=== PATIENT | female | born 1940 | race African-American/Black ===

== ENCOUNTER 2019-04-12 10:44 | Inpatient (IN) | payer MEDICARE, OTHER ==
[~2019-04-12] VITALS: Ht 160 cm; Wt 103.1 kg
[2019-04-12 10:55] VITALS: BP 120/75
--- NOTE | 2019-04-12 10:55 | NUR ---
ED Nurse Note: [facility] cough and congestion started last night, pt is awake but not oriented showing flat affect. pt has right hemiphlegia. noted to have diaper. pt is connected to o2 via nasal cannula 4L/min. seen by jonathon. will continue to monitor.
[2019-04-12] MEDS ORDERED: cefTRIAXone 1 GM in NS 55 ML IVPB ONE (11:00)
[2019-04-12] MEDS ORDERED: ACETAMINOPHEN325 M1 ORAL (11:05)
[2019-04-12] MEDS ORDERED: DULCOLAX10 MG RC (11:05)
[2019-04-12] MEDS ORDERED: FUROSEMIDE40 MG ORAL (11:05)
[2019-04-12] MEDS ORDERED: CRANBERRY400 MG PO (11:05)
[2019-04-12] MEDS ORDERED: LANTUS SOL100 UNIT/1 SUBQ (11:05)
[2019-04-12] MEDS ORDERED: MILK OF MA400 MG/51 ORAL (11:05)
[2019-04-12] MEDS ORDERED: DOCUSIL100 M1 ORAL (11:05)
[2019-04-12] MEDS ORDERED: MULTIVITAMINS1 EAC2 ORAL (11:05)
[2019-04-12] MEDS ORDERED: FLEET ENEMA133 ML RECTAL (11:05)
[2019-04-12] MEDS ORDERED: HYDRALAZINE HCL10 MG ORAL (11:05)
[2019-04-12] MEDS ORDERED: METOPROLOL TART50 MG ORAL (11:05)
[2019-04-12] MEDS ORDERED: PLAVIX75 MG ORAL (11:05)
[2019-04-12 11:29] LABS: APPEARANCE,URINE CLOUDY; BILIRUBIN, URINE NEGATIVE (NEGATIVE); GLUCOSE, URINE (UA) NEGATIVE (NEGATIVE); KETONES,URINE 1+ (NEGATIVE); LEUKOCYTE ESTERASE ,URINE 1+ (NEGATIVE); NITRITE,URINE NEGATIVE (NEGATIVE); PH,URINE 5 (4.5-8.0); PROTEIN,URINE 4+ (NEGATIVE); UROBILINOGEN,URINE 4 MG/DL (0.0-1.0)
[2019-04-12 11:32] LABS: HEMATOCRIT 28.5 % (37.0-47.0); HEMOGLOBIN 9.1 G/DL (12.0-16.0); MEAN CORPUSCULAR VOLUME 88 FL (80-99); PLATELET COUNT 232 K/UL (150-450); RED BLOOD COUNT 3.24 M/UL (4.20-5.40)
[2019-04-12 11:34] LABS: ANION GAP 12 mmol/L (5-15); BLOOD UREA NITROGEN 76 mg/dL (7-18); CARBON DIOXIDE 26 MMOL/L (21-32); CHLORIDE 120 MMOL/L (98-107); CREATININE 2.3 MG/DL (0.55-1.30); POTASSIUM 4.1 MMOL/L (3.5-5.1); SODIUM 158 MMOL/L (136-145)
[2019-04-12 11:37] LABS: WHITE BLOOD COUNT 25.4 K/UL (4.8-10.8)
[2019-04-12 11:42] LABS: COLOR,URINE YELLOW
[2019-04-12 11:48] LABS: ALANINE AMINOTRANSFERASE 8 U/L (12-78); ALBUMIN 1.8 G/DL (3.4-5.0); ALBUMIN/GLOBULIN RATIO 0.3 (1.0-2.7); ALKALINE PHOSPHATASE 72 U/L (46-116); ASPARTATE AMINO TRANSFERASE 13 U/L (15-37); BILIRUBIN,TOTAL 0.3 MG/DL (0.2-1.0); CKMB 1.9 NG/ML (0.0-3.6); CREATINE KINASE 29 U/L (26-308)
--- NOTE | 2019-04-12 11:53 | NUR ---
ED Nurse Note: pt medicated and tolerated well, pt noted to have productive cough with rales, ermd made aware and ordered albuterol nebulizer. RT made aware. will continue to monitor.
--- NOTE | 2019-04-12 11:59 | Diagnostic Imaging Report ---
Indication: Cough Technique: One view of the chest Comparison: none Findings: Patient body habitus somewhat limits evaluation. Infiltrates are seen at both lung bases. Left lateral hemidiaphragm is obscured, pleural fluid possible. The heart is enlarged. The upper mediastinum is apparently widened Impression: Bilateral basilar infiltrates, likely pneumonia Possible small left pleural effusion Apparent upper mediastinal widening. Possibly due to ectatic vasculature and body habitus, but upper mediastinal mass also possible. Correlate with any prior radiographs and may be available, consider CT for further evaluation if clinically indicated Findings discussed by phone with Dr. Brand in the emergency room at the time of interpretation
[2019-04-12] MEDS ORDERED: Albuterol ud Inhalation HHN ONE (12:00)
[2019-04-12 12:01] VITALS: BP 133/74
--- NOTE | 2019-04-12 12:09 | NUR ---
ED Nurse Note: respiratory therapist on bedside gicing nebulization. ermd ordeed bipap and rt made aware. will continnue to monitor
[2019-04-12 13:52] VITALS: BP 127/68
--- NOTE | 2019-04-12 14:14 | Emergency Room Report ---
History of Present Illness General Chief Complaint: Fever Source: Patient, Medical Record Present Illness HPI This patient presents from a senior care facility. She was sent in because the staff noted that she had a fever and was congested. She has a history of CVA with hemiplegia. She has multiple chronic medical problems to include hypertension, chronic kidney disease, CVA, coronary artery disease. She is nonverbal at baseline. Allergies: Coded Allergies: No Known Allergies (Unverified , 04/12/19) Patient History Past Medical History: see triage record, DM, HTN, CVA/TIA, renal disease Social History: Denies: smoking, alcohol use, drug use Reviewed Nursing Documentation: PMH: Agreed; PSxH: Agreed Nursing Documentation-PMH Hx Cardiac Problems: Yes Hx Hypertension: Yes Hx Cerebrovascular Accident: Yes - HEMIPLEGIA Review of Systems All Other Systems: limited Physical Exam Vital Signs Date Time Temp Pulse Resp B/P (MAP) Pulse Ox O2 Delivery O2 Flow Rate FiO2 04/12/19 10:47 99.0 107 18 120/75 (90) 94 Room Air 04/12/19 12:00 21 04/12/19 12:01 4.0 Sp02 EP Interpretation: reviewed, normal General Appearance: no apparent distress, alert, GCS 15, Chronically Ill Head: normocephalic, atraumatic ENT: normal ENT inspection, no angioedema Neck: full range of motion, supple/symm/no masses Respiratory: chest non-tender, accessory muscle use, rales, other - Tachypnea Cardiovascular #1: no edema, tachycardia Gastrointestinal: normal bowel sounds, non tender, soft, non-distended, no guarding, no rebound Rectal: deferred Musculoskeletal: other - At baseline, hemiplegia Neurologic: alert, other - At baseline. Hx cva w/ Hemiplegia Psychiatric: mood/affect normal Skin: warm/dry, well hydrated, other - See RN skin exam Medical Decision Making Diagnostic Impression: Primary Impression: Fever Additional Impressions: Pneumonia Sepsis Hypernatremia Renal failure ER Course This patient presents with pneumonia, fever and meets criteria for sepsis. She is also found to be in renal failure. She does have a history of renal disease , however, I do not have an old creatinine so I am unsure of the acuity of the renal failure. She is hypernatremic. Chest x-ray is consistent with pneumonia. Her lung exam showed rales and she had dyspnea and accessory muscle use on physical exam. Given the elevated work of breathing and her age and chronic illnesses I felt that BiPAP would be of benefit to her to relieve her increased work of breathing. She responded well to BiPAP. She is given broad- spectrum antibiotics and IV fluids. She does have a history of congestive heart failure. She is admitted to the ICU for further evaluation and treatment. This patient is critically ill. This patient required complex medical decision- making, aggressive intervention, extensive laboratory workup and monitoring. Critical care time: 40 minutes. Laboratory Tests Test 04/12/19 10:50 04/12/19 11:08 White Blood Count 25.4 K/UL (4.8-10.8) *H Red Blood Count 3.24 M/UL (4.20-5.40) L Hemoglobin 9.1 G/DL (12.0-16.0) L Hematocrit 28.5 % (37.0-47.0) L Mean Corpuscular Volume 88 FL (80-99) Mean Corpuscular Hemoglobin 28.1 PG (27.0-31.0) Mean Corpuscular Hemoglobin Concent 31.9 G/DL (32.0-36.0) L Red Cell Distribution Width 14.0 % (11.6-14.8) Platelet Count 232 K/UL (150-450) Mean Platelet Volume 8.8 FL (6.5-10.1) Neutrophils (%) (Auto) % (45.0-75.0) Lymphocytes (%) (Auto) % (20.0-45.0) Monocytes (%) (Auto) % (1.0-10.0) Eosinophils (%) (Auto) % (0.0-3.0) Basophils (%) (Auto) % (0.0-2.0) Differential Total Cells Counted 100 Neutrophils % (Manual) 87 % (45-75) H Lymphocytes % (Manual) 7 % (20-45) L Monocytes % (Manual) 4 % (1-10) Eosinophils % (Manual) 0 % (0-3) Basophils % (Manual) 0 % (0-2) Band Neutrophils 2 % (0-8) Platelet Estimate Adequate Platelet Morphology Normal Hypochromasia 2+ Anisocytosis 1+ Sodium Level 158 MMOL/L (136-145) H Potassium Level 4.1 MMOL/L (3.5-5.1) Chloride Level 120 MMOL/L (98-107) H Carbon Dioxide Level 26 MMOL/L (21-32) Anion Gap 12 mmol/L (5-15) Blood Urea Nitrogen 76 mg/dL (7-18) H Creatinine 2.3 MG/DL (0.55-1.30) H Estimate Glomerular Filtration Rate mL/min (>60) Glucose Level 189 MG/DL (74-106) H Lactic Acid Level 2.00 mmol/L (0.4-2.0) Calcium Level 10.0 MG/DL (8.5-10.1) Total Bilirubin 0.3 MG/DL (0.2-1.0) Aspartate Amino Transferase (AST) 13 U/L (15-37) L Alanine Aminotransferase (ALT) 8 U/L (12-78) L Alkaline Phosphatase 72 U/L (46-116) Total Creatine Kinase 29 U/L (26-308) Creatine Kinase MB 1.9 NG/ML (0.0-3.6) Creatine Kinase MB Relative Index 6.5 Troponin I 0.156 ng/mL (0.000-0.056) Total Protein 8.2 G/DL (6.4-8.2) Albumin 1.8 G/DL (3.4-5.0) L Globulin 6.4 g/dL Albumin/Globulin Ratio 0.3 (1.0-2.7) L Urine Color Yellow Urine Appearance Cloudy Urine pH 5 (4.5-8.0) Urine Specific [place] 1.025 (1.005-1.035) Urine Protein 4+ (NEGATIVE) H Urine Glucose (UA) Negative (NEGATIVE) Urine Ketones 1+ (NEGATIVE) H Urine Blood Negative (NEGATIVE) Urine Nitrite Negative (NEGATIVE) Urine Bilirubin Negative (NEGATIVE) Urine Urobilinogen 4 MG/DL (0.0-1.0) H Urine Leukocyte Esterase 1+ (NEGATIVE) H Urine RBC 2-4 /HPF (0 - 2) H Urine WBC 2-4 /HPF (0 - 2) Urine Squamous Epithelial Cells Many /LPF (NONE/OCC) H Urine Amorphous Sediment Many /LPF (NONE) H Urine Bacteria Few /HPF (NONE) Urine Hyaline Casts 0-2 /LPF (NONE) H Urine Fine Granular Casts 0-2 /LPF (NONE) H Microbiology Date/Time Source Procedure Growth Status 6/17/19 11:49 Nasal Nares - Final Complete 04/12/19 11:49 Nasal Nares - Final Complete EKG Diagnostic Results Rate: tachycardiac Rhythm: other - S.tachycardia ST Segments: other Other Impression S.tachy w/ short SC, IRBBB, LAFB, LVH Rhythm Strip Diag. Results EP Interpretation: yes Rate: 100's Rhythm: no PVC's, no ectopy, other - S.tachycardia Chest X-Ray Diagnostic Results Chest X-Ray Diagnostic Results : Chest X-Ray Ordered: Yes # of Views/Limited/Complete: 1 View Indication: Shortness of Breath EP Interpretation: No Interpretation: other - See below Impression: Other - Impression: Bilateral basilar infiltrates, likely pneumonia Last Vital Signs Date Time Temp Pulse Resp B/P (MAP) Pulse Ox O2 Delivery O2 Flow Rate FiO2 04/12/19 13:52 110 25 127/68 95 Bi-pap 14.0 21 04/12/19 10:55 98.9 Disposition: ADMITTED INPATIENT Condition: Critical Referrals: Jama Keating DO (PCP) Keyla Coe DO Apr 12, 2019 14:14
[2019-04-12] MEDS ORDERED: Morphine Sulfate 2mg/ml Inj(IV/IM USE ONLY) IVP PRN (14:15)
[2019-04-12] MEDS ORDERED: Miralax 17gm pkt ORAL PRN (14:15)
[2019-04-12] MEDS ORDERED: Albuterol/Ipratropium 3ml neb HHN PRN (14:15)
--- NOTE | 2019-04-12 14:15 | Consultation ---
Consult Note Consult Note I was asked to evaluate the patient for renal failure by Dr Keating Patient seen in ER on BIPAP Son at bed side examined data reviewed Assessment/Plan Renal failure; - Pre Renal - ? Underlying Renal Anemia Pneumonia / respiratory failure elevated Troponin UTI HyperGlycemia / DM Fraga urine studies slow hydrate kidney MAIKEL 2D echo avoid Nephrotoxics per orders aWlly Spivey MD Apr 12, 2019 14:15
--- NOTE | 2019-04-12 14:18 | Consultation ---
History of Present Illness General Date patient seen: Apr 12, 2019 Chief Complaint: Fever Present Illness HPI 79 year old female with hx of DM, HTN, CVA/TIA, hemiplegia, chronic renal disease, [facility] resident was noted to have fever and was congested. She is nonverbal at baseline. She opens her eyes, but doesn't communicate and doesn 't follow simple commands. She was found to be septic, with tachycardia and hypotension. She is admitted to [facility] for further management. Allergies: Coded Allergies: No Known Allergies (Unverified , 04/12/19) Medication History Scheduled Clopidogrel Bisulfate* (Plavix*), 75 MG ORAL DAILY, (Reported) Docusate Sodium* (Docusil*), 100 MG ORAL TWICE A DAY, (Reported) Furosemide* (Lasix*), 40 MG ORAL DAILY, (Reported) Hydralazine Hcl* (Hydralazine Hcl*), 10 MG ORAL EVERY 6 HOURS, (Reported) Insulin Glargine (Lantus), 20 SUBQ BEDTIME, (Reported) Magnesium Hydroxide* (Milk Of Magnesia*), 30 ML ORAL DAILY, (Reported) Metoprolol Tartrate* (Metoprolol Tartrate*), 75 MG ORAL EVERY 12 HOURS, ( Reported) Multivitamins* (Multivitamins*), 1 TAB ORAL DAILY, (Reported) Na Phos,M-B/Na Phos,Di-Ba* (Fleet Enema*), 133 ML RECTAL DAILY, (Reported) Scheduled PRN Acetaminophen* (Acetaminophen 325MG Tablet*), 650 MG ORAL Q6H PRN for Pain Scale (3-5), (Reported) Miscellaneous Medications Bisacodyl (Dulcolax), 10 MG RC, (Reported) Cranberry (Cranberry), 450 MG PO, (Reported) Patient History Healthcare decision maker Resuscitation status Advanced Directive on File Past Medical/Surgical History Past Medical/Surgical History: (1) 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 (2) Hypertensive heart disease (3) History of CVA (cerebrovascular accident) (4) CAD (coronary artery disease) (5) Right hemiplegia (6) Diabetes mellitus Review of Systems All Other Systems: negative except mentioned in HPI Physical Exam General Appearance: WD/WN Lines, tubes and drains: peripheral HEENT: normocephalic, atraumatic Neck: non-tender, normal alignment, supple, normal inspection Respiratory/Chest: chest wall non-tender, lungs clear Breasts: no masses Cardiovascular/Chest: normal rate Abdomen: normal bowel sounds, non tender Genitourinary/Rectal: normal genital exam Last 24 Hour Vital Signs Date Time Temp Pulse Resp B/P (MAP) Pulse Ox O2 Delivery O2 Flow Rate FiO2 04/12/19 13:52 110 25 127/68 95 Bi-pap 14.0 21 04/12/19 12:33 14.0 21 04/12/19 12:33 80 16 Bi-pap 4.0 21 04/12/19 12:32 80 16 100 Facial 21 04/12/19 12:28 88 22 100 Bi-Pap 21 04/12/19 12:01 106 21 133/74 95 Nasal Cannula 4.0 04/12/19 12:00 78 20 98 Facial 21 04/12/19 12:00 78 20 98 Bi-Pap 21 04/12/19 12:00 78 20 98 Bi-Pap 21 04/12/19 10:55 98.9 107 20 120/75 95 Room Air 04/12/19 10:55 107 20 Room Air 04/12/19 10:47 99.0 107 18 120/75 (90) 94 Room Air Laboratory Tests Test 04/12/19 10:50 04/12/19 11:08 White Blood Count 25.4 K/UL (4.8-10.8) *H Red Blood Count 3.24 M/UL (4.20-5.40) L Hemoglobin 9.1 G/DL (12.0-16.0) L Hematocrit 28.5 % (37.0-47.0) L Mean Corpuscular Volume 88 FL (80-99) Mean Corpuscular Hemoglobin 28.1 PG (27.0-31.0) Mean Corpuscular Hemoglobin Concent 31.9 G/DL (32.0-36.0) L Red Cell Distribution Width 14.0 % (11.6-14.8) Platelet Count 232 K/UL (150-450) Mean Platelet Volume 8.8 FL (6.5-10.1) Neutrophils (%) (Auto) % (45.0-75.0) Lymphocytes (%) (Auto) % (20.0-45.0) Monocytes (%) (Auto) % (1.0-10.0) Eosinophils (%) (Auto) % (0.0-3.0) Basophils (%) (Auto) % (0.0-2.0) Differential Total Cells Counted 100 Neutrophils % (Manual) 87 % (45-75) H Lymphocytes % (Manual) 7 % (20-45) L Monocytes % (Manual) 4 % (1-10) Eosinophils % (Manual) 0 % (0-3) Basophils % (Manual) 0 % (0-2) Band Neutrophils 2 % (0-8) Platelet Estimate Adequate Platelet Morphology Normal Hypochromasia 2+ Anisocytosis 1+ Sodium Level 158 MMOL/L (136-145) H Potassium Level 4.1 MMOL/L (3.5-5.1) Chloride Level 120 MMOL/L (98-107) H Carbon Dioxide Level 26 MMOL/L (21-32) Anion Gap 12 mmol/L (5-15) Blood Urea Nitrogen 76 mg/dL (7-18) H Creatinine 2.3 MG/DL (0.55-1.30) H Estimat Glomerular Filtration Rate mL/min (>60) Glucose Level 189 MG/DL (74-106) H Lactic Acid Level 2.00 mmol/L (0.4-2.0) Calcium Level 10.0 MG/DL (8.5-10.1) Total Bilirubin 0.3 MG/DL (0.2-1.0) Aspartate Amino Transf (AST/SGOT) 13 U/L (15-37) L Alanine Aminotransferase (ALT/SGPT) 8 U/L (12-78) L Alkaline Phosphatase 72 U/L (46-116) Total Creatine Kinase 29 U/L (26-308) Creatine Kinase MB 1.9 NG/ML (0.0-3.6) Creatine Kinase MB Relative Index 6.5 Troponin I 0.156 ng/mL (0.000-0.056) Total Protein 8.2 G/DL (6.4-8.2) Albumin 1.8 G/DL (3.4-5.0) L Globulin 6.4 g/dL Albumin/Globulin Ratio 0.3 (1.0-2.7) L Urine Color Yellow Urine Appearance Cloudy Urine pH 5 (4.5-8.0) Urine Specific [place] 1.025 (1.005-1.035) Urine Protein 4+ (NEGATIVE) H Urine Glucose (UA) Negative (NEGATIVE) Urine Ketones 1+ (NEGATIVE) H Urine Blood Negative (NEGATIVE) Urine Nitrite Negative (NEGATIVE) Urine Bilirubin Negative (NEGATIVE) Urine Urobilinogen 4 MG/DL (0.0-1.0) H Urine Leukocyte Esterase 1+ (NEGATIVE) H Urine RBC 2-4 /HPF (0 - 2) H Urine WBC 2-4 /HPF (0 - 2) Urine Squamous Epithelial Cells Many /LPF (NONE/OCC) H Urine Amorphous Sediment Many /LPF (NONE) H Urine Bacteria Few /HPF (NONE) Urine Hyaline Casts 0-2 /LPF (NONE) H Urine Fine Granular Casts 0-2 /LPF (NONE) H Microbiology Date/Time Source Procedure Growth Status 04/12/19 11:49 Nasal Nares - Final Complete 04/12/19 11:49 Nasal Nares - Final Complete Height (Feet): 5 Height (Inches): 3.00 Weight (Pounds): 145 Assessment/Plan Problem List: (1) Nosocomial pneumonia ICD Codes: J18.9 - Pneumonia, unspecified organism; Y95 - Nosocomial condition SNOMED: 872493482 (2) Sepsis ICD Codes: A41.9 - Sepsis, unspecified organism SNOMED: 68681355 (3) Acute metabolic encephalopathy ICD Codes: G93.41 - Metabolic encephalopathy SNOMED: 71950267, 003162923 (4) At high risk for aspiration ICD Codes: Z91.89 - Other specified personal risk factors, not elsewhere classified SNOMED: 551284114 (5) 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 ICD Codes: E11.22 - Type 2 diabetes mellitus with diabetic chronic kidney disease; N18.4 - Chronic kidney disease, stage 4 (severe) SNOMED: 03956572, 635258369, 919056863 (6) Diabetes mellitus ICD Codes: E11.9 - Type 2 diabetes mellitus without complications SNOMED: 68761716 (7) History of CVA (cerebrovascular accident) ICD Codes: Z86.73 - Personal history of transient ischemic attack (TIA), and cerebral infarction without residual deficits SNOMED: 017351566 (8) CAD (coronary artery disease) ICD Codes: I25.10 - Atherosclerotic heart disease of [place] coronary artery without angina pectoris SNOMED: 45307964 (9) Right hemiplegia ICD Codes: G81.91 - Hemiplegia, unspecified affecting right dominant side SNOMED: 897447024 (10) Hypertensive heart disease ICD Codes: I11.9 - Hypertensive heart disease without heart failure SNOMED: 08676378 Assessment/Plan: vale culture aggressive IV fluids check electrolytes broad spectrum abx renal studies f/u renal electrolytes sliding scale swallow study. dvt prophylaxis repeat CXR in a few days Tony Springer MD Apr 12, 2019 14:18
--- NOTE | 2019-04-12 15:28 | NUR ---
ED Nurse Note: senior quality technician on bedside. pt son on bedside.
[2019-04-12 15:47] VITALS: BP 146/87
--- NOTE | 2019-04-12 16:29 | NUR ---
ED Nurse Note: pt is admitted to the hospital. report given to Bharath BURNETT.
--- NOTE | 2019-04-12 16:45 | NUR ---
ED Nurse Note: pt was transfered to [facility] 234 with stable vs. will continue to monitor.
--- NOTE | 2019-04-12 17:00 | NUR ---
NURSE NOTES: Received report from HORTENCIA Paez. Patient arrived to unit in stable condition. Noted on BiPAP with setting 15/5 FiO2 30%. Patient has no belongings. Skin integrity is intact. Bed is in lowest position, brakes engaged. Call light is kept within easy reach. Will continue to monitor patient.
--- NOTE | 2019-04-12 17:01 | Cardiac Electrophysiology PN ---
Subjective Subjective [id number] Objective Last 24 Hour Vital Signs Date Time Temp Pulse Resp B/P (MAP) Pulse Ox O2 Delivery O2 Flow Rate FiO2 04/12/19 15:47 104 27 146/87 94 Bi-pap 4.0 21 04/12/19 14:35 78 14 100 Facial 21 04/12/19 13:52 110 25 127/68 95 Bi-pap 14.0 21 04/12/19 12:33 14.0 21 04/12/19 12:33 80 16 Bi-pap 4.0 21 04/12/19 12:32 80 16 100 Facial 21 04/12/19 12:28 88 22 100 Bi-Pap 21 04/12/19 12:01 106 21 133/74 95 Nasal Cannula 4.0 04/12/19 12:00 78 20 98 Facial 21 04/12/19 12:00 78 20 98 Bi-Pap 21 04/12/19 12:00 78 20 98 Bi-Pap 21 04/12/19 10:55 98.9 107 20 120/75 95 Room Air 04/12/19 10:55 107 20 Room Air 04/12/19 10:47 99.0 107 18 120/75 (90) 94 Room Air Laboratory Tests Test 04/12/19 10:50 04/12/19 11:08 White Blood Count 25.4 K/UL (4.8-10.8) *H Red Blood Count 3.24 M/UL (4.20-5.40) L Hemoglobin 9.1 G/DL (12.0-16.0) L Hematocrit 28.5 % (37.0-47.0) L Mean Corpuscular Volume 88 FL (80-99) Mean Corpuscular Hemoglobin 28.1 PG (27.0-31.0) Mean Corpuscular Hemoglobin Concent 31.9 G/DL (32.0-36.0) L Red Cell Distribution Width 14.0 % (11.6-14.8) Platelet Count 232 K/UL (150-450) Mean Platelet Volume 8.8 FL (6.5-10.1) Neutrophils (%) (Auto) % (45.0-75.0) Lymphocytes (%) (Auto) % (20.0-45.0) Monocytes (%) (Auto) % (1.0-10.0) Eosinophils (%) (Auto) % (0.0-3.0) Basophils (%) (Auto) % (0.0-2.0) Differential Total Cells Counted 100 Neutrophils % (Manual) 87 % (45-75) H Lymphocytes % (Manual) 7 % (20-45) L Monocytes % (Manual) 4 % (1-10) Eosinophils % (Manual) 0 % (0-3) Basophils % (Manual) 0 % (0-2) Band Neutrophils 2 % (0-8) Platelet Estimate Adequate Platelet Morphology Normal Hypochromasia 2+ Anisocytosis 1+ Sodium Level 158 MMOL/L (136-145) H Potassium Level 4.1 MMOL/L (3.5-5.1) Chloride Level 120 MMOL/L (98-107) H Carbon Dioxide Level 26 MMOL/L (21-32) Anion Gap 12 mmol/L (5-15) Blood Urea Nitrogen 76 mg/dL (7-18) H Creatinine 2.3 MG/DL (0.55-1.30) H Estimat Glomerular Filtration Rate mL/min (>60) Glucose Level 189 MG/DL (74-106) H Lactic Acid Level 2.00 mmol/L (0.4-2.0) Calcium Level 10.0 MG/DL (8.5-10.1) Total Bilirubin 0.3 MG/DL (0.2-1.0) Aspartate Amino Transf (AST/SGOT) 13 U/L (15-37) L Alanine Aminotransferase (ALT/SGPT) 8 U/L (12-78) L Alkaline Phosphatase 72 U/L (46-116) Total Creatine Kinase 29 U/L (26-308) Creatine Kinase MB 1.9 NG/ML (0.0-3.6) Creatine Kinase MB Relative Index 6.5 Troponin I 0.156 ng/mL (0.000-0.056) Total Protein 8.2 G/DL (6.4-8.2) Albumin 1.8 G/DL (3.4-5.0) L Globulin 6.4 g/dL Albumin/Globulin Ratio 0.3 (1.0-2.7) L Urine Color Yellow Urine Appearance Cloudy Urine pH 5 (4.5-8.0) Urine Specific [place] 1.025 (1.005-1.035) Urine Protein 4+ (NEGATIVE) H Urine Glucose (UA) Negative (NEGATIVE) Urine Ketones 1+ (NEGATIVE) H Urine Blood Negative (NEGATIVE) Urine Nitrite Negative (NEGATIVE) Urine Bilirubin Negative (NEGATIVE) Urine Urobilinogen 4 MG/DL (0.0-1.0) H Urine Leukocyte Esterase 1+ (NEGATIVE) H Urine RBC 2-4 /HPF (0 - 2) H Urine WBC 2-4 /HPF (0 - 2) Urine Squamous Epithelial Cells Many /LPF (NONE/OCC) H Urine Amorphous Sediment Many /LPF (NONE) H Urine Bacteria Few /HPF (NONE) Urine Hyaline Casts 0-2 /LPF (NONE) H Urine Fine Granular Casts 0-2 /LPF (NONE) H Microbiology Date/Time Source Procedure Growth Status 04/12/19 11:49 Nasal Nares - Final Complete 04/12/19 11:49 Nasal Nares - Final Complete Claude Pena MD Apr 12, 2019 17:01
--- NOTE | 2019-04-12 17:15 | History and Physical Report ---
DATE OF ADMISSION: 04/12/2019 TIME SEEN: 12 noon. CONSULTANTS: 1. Tony Springer M.D. 2. Phu Haque M.D. 3. Steven Norton M.D. CHIEF COMPLAINT: Shortness of breath, pneumonia, sepsis, possible chest mass. BRIEF HISTORY: This is a 79-year-old female from [facility] presented with two-day increased shortness of breath, became quite lethargic, came to [place], diagnosed as above. The patient was put on BiPAP due to severe respiratory distress. The patient is currently diagnosed with pneumonia and sepsis, and chest x-ray is showing possible chest mass and being admitted to [facility] for shortly. Currently, calm, BiPAP in place in the ER gurney, not talking much. REVIEW OF SYSTEMS: Unavailable. PAST MEDICAL HISTORY: We will obtain shortly. PAST SURGICAL HISTORY: We will obtain shortly. ALLERGIES: Denies. MEDICATIONS: Include albuterol, ceftriaxone. SOCIAL HISTORY: No smoking. No alcohol. No intravenous drug abuse. FAMILY HISTORY: Noncontributory. PHYSICAL EXAMINATION: GENERAL: BiPAP in place, sleeping in bed, slight short of breath. VITAL SIGNS: Temperature is 98 degrees, pulse 106, respirations 16, and blood pressure 133/74. CARDIOVASCULAR: No murmur. LUNGS: Poor exchange. ABDOMEN: Bowel sounds distant. EXTREMITIES: No cyanosis, clubbing, or edema. NEUROLOGIC: Patient is flaccid in bed, probably sedated. LABORATORY AND DIAGNOSTIC DATA: White count 25, H and H of 9.1/25. BMP show sodium 158, chloride 120, BUN and creatinine 76/2.3. AST 13, ALT 8. Troponin 0.156, elevated troponin. Albumin 1.8, malnutrition. Urinalysis shows 1+ leukocyte esterase. ASSESSMENT: 1. Shortness of breath. 2. Respiratory distress. 3. Pneumonia. 4. Urinary tract infection. 5. Sepsis. 6. Chest mass. 7. Anemia. 8. Renal failure. 9. Elevated troponin. 10. Malnutrition. PLAN: 1. BiPAP per Pulmonary. 2. Antibiotic per Infectious Disease. 3. Blood pressure and blood sugar control. 4. IV fluids. 5. Dietary followup. 6. Resume home medications. 7. Troponin q.8 h. x3. 8. EKG in a.m. 9. We will continue to follow this patient. 10. Add Nephrology and Cardiology followup. Jama Keating D.O. DR: NILDA JOB#: [id number] CC:
--- NOTE | 2019-04-12 17:30 | NUR ---
NURSE NOTES: Dr. Pena seen and examined patient at bedside. MD aware of HR of 133 bpm. MD inquired if patient receiving hydration, that is affirmative, MD acknowledged, no new orders given at this time. Will continue to monitor patient.
[2019-04-12] MEDS: HydrALAZINE 10mg Tab ORAL SCH ×2 (17:44→23:55)
--- NOTE | 2019-04-12 18:30 | NUR ---
NURSE NOTES: Notified Dr. Springer that patient has history of diabetes, acknowledged, ordered novolog sliding scale protocol. Order entered, noted, and carried out. Will continue to monitor patient.
--- NOTE | 2019-04-12 18:41 | Diagnostic Imaging Report ---
Indication: Abnormal renal function tests Technique: Grayscale and duplex images of the kidneys, retroperitoneum, and bladder were obtained. Comparison: none Findings: Right kidney measures 11.6 cm in length. Left kidney measures 12.3 cm in length. Both kidneys demonstrate normal echogenicity. No hydronephrosis. A few small echogenic foci are noted in the right kidney. A few small cysts are seen in the left kidney. Normal inferior vena cava. Bladder contains a Fraga catheter. Urinary bladder volume calculated at 92 mL despite the presence of the Fraga. Impression: Negative for hydronephrosis Punctate right renal echogenic foci, small calcifications versus artifact Incidental finding left renal cyst 92 mL urinary bladder volume, despite the presence of a Fraga catheter.
--- NOTE | 2019-04-12 18:45 | Consultation ---
DATE OF CONSULTATION: 04/12/2019 CARDIOLOGY CONSULTATION CONSULTING PHYSICIAN: Claude Pena M.D. REFERRING PHYSICIAN: Jama Keating D.O. REASON FOR CONSULTATION: Management of hypertension and shortness of breath. HISTORY OF PRESENT ILLNESS: The patient is a 79-year-old lady who is nonverbal, was [facility] in from jail for fever and congestion. The patient has history of CVA and hemiplegia and is nonverbal. The patient was admitted and a Cardiology consultation was obtained for further evaluation. REVIEW OF SYSTEMS: Cannot be obtained as the patient is nonverbal. PAST MEDICAL HISTORY: 1. Hypertension. 2. CVA. 3. Coronary artery disease. 4. Chronic kidney disease. 5. CVA and hemiplegia. FAMILY HISTORY: Noncontributory. SOCIAL HISTORY: She lives in jail. PHYSICAL EXAMINATION: VITAL SIGNS: Blood pressure is 120/75, pulse is 107, respirations 18, temperature is 99. HEAD AND NECK: Showed no JVD. LUNGS: Coarse rhonchi bilaterally. CARDIOVASCULAR: Regular S1 and S2 with no gallop. ABDOMEN: Soft. EXTREMITIES: No pitting edema. LABORATORY AND DIAGNOSTIC DATA: Her labs show white count 25.4, hemoglobin 9.1, hematocrit 28%, platelet count is 232. Sodium is 158, potassium is 4.1, BUN of 76, creatinine 2.3. ASSESSMENT AND PLAN: 1. Tachycardia, likely due to combination of dehydration and azotemia. The patient will be getting gentle hydration by Dr. Spivey. 2. Sepsis. The patient's lactic acid is 2. We will start on IV antibiotic. White count is 25,000. 3. Anemia. 4. History of CVA with hemiplegia. 5. Nonverbal status. 6. Renal failure. 7. Coronary artery disease. The patient on metoprolol 75 mg b.i.d. and Plavix 75 mg daily and is also on p.r.n. hydralazine. Thank you very much for allowing me to participate in the care of this patient. Please do not hesitate to contact me for any questions regarding my evaluation. Claude Pena M.D. DR: SARITA JOB#: [id number] CC:
--- NOTE | 2019-04-12 19:30 | NUR ---
HAND-OFF: Report given to HORTENCIA Werner.
--- NOTE | 2019-04-12 19:35 | NUR ---
NURSE NOTES: Received Pt is resting on the bed and drowsy. Able to open the eyes spontaneously. On BiPAP setting with 15/5 FiO2 30% and SaO2 97% noted. Iv site intact and no sign of infiltration noted. On tele monitor with ST with HR: 137's. According to previous nurse, Dr. Pena awarded. Pt has Fraga cath and yellowish urine urinated. On NPO. Changed position. Placed fall precaution. Will continue to care plan and continue to monitor any change of condition.
[2019-04-12 20:00] VITALS: BP 152/90
[2019-04-12] MEDS ORDERED: Vancomycin 1 GM in D5W 275 ML IVPB ONE (20:00)
[2019-04-12] MEDS: Metoprolol Tartrate 50mg tab ORAL SCH (20:18)
[2019-04-12] MEDS: Heparin 5000 units/ml inj SUBQ SCH (20:48)
[2019-04-12] MEDS: NovoLOG Insulin Flexpen SUBQ SCH (21:00)
[2019-04-12] MEDS ORDERED: Cefepime HCl 2 GM in D5W 110 ML IV ONE (21:00)
[2019-04-13] VITALS: BP 140/90
[2019-04-13 04:00] VITALS: BP 121/82
[2019-04-13 04:52] LABS: HEMATOCRIT 24.9 % (37.0-47.0); MEAN CORPUSCULAR VOLUME 88 FL (80-99); PLATELET COUNT 221 K/UL (150-450); RED BLOOD COUNT 2.84 M/UL (4.20-5.40); RED CELL DISTRIBUTION WIDTH 14.3 % (11.6-14.8)
[2019-04-13 05:40] LABS: ALANINE AMINOTRANSFERASE 7 U/L (12-78); ALBUMIN 1.6 G/DL (3.4-5.0); ALBUMIN/GLOBULIN RATIO 0.3 (1.0-2.7); ALKALINE PHOSPHATASE 73 U/L (46-116); ANION GAP 15 mmol/L (5-15); ASPARTATE AMINO TRANSFERASE 18 U/L (15-37); BILIRUBIN,TOTAL 0.2 MG/DL (0.2-1.0); BLOOD UREA NITROGEN 77 mg/dL (7-18); CALCIUM 8.8 MG/DL (8.5-10.1); CARBON DIOXIDE 21 MMOL/L (21-32); CHLORIDE 122 MMOL/L (98-107); CHOLESTEROL 83 MG/DL (< 200); CREATININE 2.4 MG/DL (0.55-1.30); FERRITIN 274 NG/ML (8-388); GAMMA GLUTAMYL TRANSPEPTIDASE 18 U/L (5-85); HDL CHOLESTEROL 23 MG/DL (40-60); PHOSPHORUS 4.4 MG/DL (2.5-4.9); POTASSIUM 4.2 MMOL/L (3.5-5.1); SODIUM 158 MMOL/L (136-145); TRIGLYCERIDES 73 MG/DL (30-150)
[2019-04-13] MEDS: HydrALAZINE 10mg Tab ORAL SCH ×3 (05:54→17:07)
[2019-04-13 06:25] LABS: % IRON SATURATION 4 % (15-50); IRON 6 ug/dL (50-175); TOTAL IRON BINDING CAPACITY 143 ug/dL (250-450)
[2019-04-13] MEDS: NovoLOG Insulin Flexpen SUBQ SCH ×4 (06:30→21:02)
--- NOTE | 2019-04-13 07:20 | NUR ---
NURSE NOTES: Report received from HORTENCIA Werner. Observed patient in bed. Open eyes spontaneously with confusion. On BIPAP with previous setting with no acute distress noted. IVF running at prescribed rate. F/C intact and draining well. No s/s of pain at this time. Bed in lowest position. Call light within reach. Will continue to monitor.
--- NOTE | 2019-04-13 07:24 | NUR ---
HAND-OFF: Report given to HORTENCIA Hooks. Pt is resting on the bed and no sign of acute distress noted.
--- NOTE | 2019-04-13 07:47 | NUR ---
RESPIRATORY NOTE: ABG taken, placed pt on 2L NC with no resp distress. sputum collected. RN notified
[2019-04-13 08:00] VITALS: BP 134/80
[2019-04-13] MEDS: Cefepime 1gm in D5W 55ml IVPB SCH (08:57)
[2019-04-13] MEDS: Heparin 5000 units/ml inj SUBQ SCH ×2 (08:57→21:00)
[2019-04-13] MEDS: Metoprolol Tartrate 50mg tab ORAL SCH ×2 (08:57→20:59)
--- NOTE | 2019-04-13 09:41 | Consultation ---
History of Present Illness General Date patient seen: Apr 13, 2019 Chief Complaint: Fever Reason for Consultation: PNA Present Illness HPI Ms. Sage is a 79 yo female with PMHx of HTN, CVA with hemiplegia and is now not verbal, CKD and CAD who was sent to the ED from her correction onn with lethargy and SOB. In the ED she was Afebrile but had WBCs of 25 and was hypoxic and CXR showed. Bilateral basilar infiltrates, likely pneumonia and Apparent upper mediastinal widening. Possibly due to ectatic vasculature and body habitus, but upper mediastinal mass also possible. She is currently not verbal. Will nod head. No Pain ID was consulted for PNA PMHx/PSHx HTN CVA with hemiplegia and is now not verbal CKD CAD SocHx No E/T/D FamHx Not Contributory Allergies: Coded Allergies: No Known Allergies (Unverified , 04/12/19) Medication History Scheduled Clopidogrel Bisulfate* (Plavix*), 75 MG ORAL DAILY, (Reported) Docusate Sodium* (Docusil*), 100 MG ORAL TWICE A DAY, (Reported) Furosemide* (Lasix*), 40 MG ORAL DAILY, (Reported) Hydralazine Hcl* (Hydralazine Hcl*), 10 MG ORAL EVERY 6 HOURS, (Reported) Insulin Glargine (Lantus), 20 SUBQ BEDTIME, (Reported) Magnesium Hydroxide* (Milk Of Magnesia*), 30 ML ORAL DAILY, (Reported) Metoprolol Tartrate* (Metoprolol Tartrate*), 75 MG ORAL EVERY 12 HOURS, ( Reported) Multivitamins* (Multivitamins*), 1 TAB ORAL DAILY, (Reported) Na Phos,M-B/Na Phos,Di-Ba* (Fleet Enema*), 133 ML RECTAL DAILY, (Reported) Scheduled PRN Acetaminophen* (Acetaminophen 325MG Tablet*), 650 MG ORAL Q6H PRN for Pain Scale (3-5), (Reported) Miscellaneous Medications Bisacodyl (Dulcolax), 10 MG RC, (Reported) Cranberry (Cranberry), 450 MG PO, (Reported) Patient History Healthcare decision maker Cezar Sage (SON) Resuscitation status Full Code Advanced Directive on File Review of Systems ROS Narrative Unable to obtain as patient not verbal Physical Exam Last 24 Hour Vital Signs Date Time Temp Pulse Resp B/P (MAP) Pulse Ox O2 Delivery O2 Flow Rate FiO2 04/13/19 08:57 109 134/80 04/13/19 08:00 98.4 109 24 134/80 (98) 97 04/13/19 08:00 Nasal Cannula 2.0 04/13/19 07:45 2.0 04/13/19 06:58 116 30 97 Facial 30 04/13/19 05:54 144/71 04/13/19 05:05 115 24 98 Facial 30 04/13/19 04:00 Bi-pap 04/13/19 04:00 98.8 111 20 121/82 (95) 97 04/13/19 04:00 118 04/13/19 04:00 30 04/13/19 02:45 120 28 99 Facial 30 04/13/19 01:00 108 24 98 Facial 30 04/13/19 00:00 98.1 103 20 140/90 (107) 97 04/13/19 00:00 Bi-pap 04/13/19 00:00 30 04/13/19 00:00 101 04/12/19 23:55 140/82 04/12/19 22:57 103 24 96 Facial 30 04/12/19 20:59 117 32 97 Facial 30 04/12/19 20:18 137 150/90 04/12/19 20:00 137 04/12/19 20:00 30 04/12/19 20:00 Bi-pap 04/12/19 20:00 98.6 137 20 152/90 (110) 97 04/12/19 19:07 78 26 94 Facial 30 04/12/19 17:53 Bi-pap 4.0 04/12/19 17:45 21 04/12/19 17:44 146/87 04/12/19 16:45 98.9 104 16 146/87 100 4.0 21 04/12/19 16:45 82 16 100 Facial 21 04/12/19 15:47 104 27 146/87 94 Bi-pap 4.0 21 04/12/19 14:35 78 14 100 Facial 21 04/12/19 13:52 110 25 127/68 95 Bi-pap 14.0 21 04/12/19 12:33 14.0 21 04/12/19 12:33 80 16 Bi-pap 4.0 21 04/12/19 12:32 80 16 100 Facial 21 04/12/19 12:28 88 22 100 Bi-Pap 21 04/12/19 12:01 106 21 133/74 95 Nasal Cannula 4.0 04/12/19 12:00 78 20 98 Facial 21 04/12/19 12:00 78 20 98 Bi-Pap 21 04/12/19 12:00 78 20 98 Bi-Pap 21 04/12/19 10:55 98.9 107 20 120/75 95 Room Air 04/12/19 10:55 107 20 Room Air 04/12/19 10:47 99.0 107 18 120/75 (90) 94 Room Air Intake and Output 04/12/19 04/13/19 18:59 06:59 Intake Total 4110 ml 1280.0 ml Output Total 300 ml Balance 4110 ml 980.0 ml Intake IV Total 4110 ml 1280.0 ml Output Urine Total 300 ml # Bowel Movements 2 Laboratory Tests Test 04/12/19 10:50 04/12/19 11:08 04/13/19 03:45 04/13/19 07:26 White Blood Count 25.4 K/UL (4.8-10.8) *H 22.0 K/UL (4.8-10.8) H Red Blood Count 3.24 M/UL (4.20-5.40) L 2.84 M/UL (4.20-5.40) L Hemoglobin 9.1 G/DL (12.0-16.0) L 8.0 G/DL (12.0-16.0) L Hematocrit 28.5 % (37.0-47.0) L 24.9 % (37.0-47.0) L Mean Corpuscular Volume 88 FL (80-99) 88 FL (80-99) Mean Corpuscular Hemoglobin 28.1 PG (27.0-31.0) 28.2 PG (27.0-31.0) Mean Corpuscular Hemoglobin Concent 31.9 G/DL (32.0-36.0) L 32.1 G/DL (32.0-36.0) Red Cell Distribution Width 14.0 % (11.6-14.8) 14.3 % (11.6-14.8) Platelet Count 232 K/UL (150-450) 221 K/UL (150-450) Mean Platelet Volume 8.8 FL (6.5-10.1) 8.8 FL (6.5-10.1) Neutrophils (%) (Auto) % (45.0-75.0) % (45.0-75.0) Lymphocytes (%) (Auto) % (20.0-45.0) % (20.0-45.0) Monocytes (%) (Auto) % (1.0-10.0) % (1.0-10.0) Eosinophils (%) (Auto) % (0.0-3.0) % (0.0-3.0) Basophils (%) (Auto) % (0.0-2.0) % (0.0-2.0) Differential Total Cells Counted 100 Neutrophils % (Manual) 87 % (45-75) H Pending Lymphocytes % (Manual) 7 % (20-45) L Pending Monocytes % (Manual) 4 % (1-10) Eosinophils % (Manual) 0 % (0-3) Basophils % (Manual) 0 % (0-2) Band Neutrophils 2 % (0-8) Platelet Estimate Adequate Pending Platelet Morphology Normal Pending Hypochromasia 2+ Anisocytosis 1+ Sodium Level 158 MMOL/L (136-145) H 158 MMOL/L (136-145) H Potassium Level 4.1 MMOL/L (3.5-5.1) 4.2 MMOL/L (3.5-5.1) Chloride Level 120 MMOL/L (98-107) H 122 MMOL/L (98-107) H Carbon Dioxide Level 26 MMOL/L (21-32) 21 MMOL/L (21-32) Anion Gap 12 mmol/L (5-15) 15 mmol/L (5-15) Blood Urea Nitrogen 76 mg/dL (7-18) H 77 mg/dL (7-18) H Creatinine 2.3 MG/DL (0.55-1.30) H 2.4 MG/DL (0.55-1.30) H Estimat Glomerular Filtration Rate mL/min (>60) mL/min (>60) Glucose Level 189 MG/DL (74-106) H 137 MG/DL (74-106) H Lactic Acid Level 2.00 mmol/L (0.4-2.0) Calcium Level 10.0 MG/DL (8.5-10.1) 8.8 MG/DL (8.5-10.1) Total Bilirubin 0.3 MG/DL (0.2-1.0) 0.2 MG/DL (0.2-1.0) Aspartate Amino Transf (AST/SGOT) 13 U/L (15-37) L 18 U/L (15-37) Alanine Aminotransferase (ALT/SGPT) 8 U/L (12-78) L 7 U/L (12-78) L Alkaline Phosphatase 72 U/L (46-116) 73 U/L (46-116) Total Creatine Kinase 29 U/L (26-308) Creatine Kinase MB 1.9 NG/ML (0.0-3.6) Creatine Kinase MB Relative Index 6.5 Troponin I 0.156 ng/mL (0.000-0.056) 0.184 ng/mL (0.000-0.056) Total Protein 8.2 G/DL (6.4-8.2) 6.6 G/DL (6.4-8.2) Albumin 1.8 G/DL (3.4-5.0) L 1.6 G/DL (3.4-5.0) L Globulin 6.4 g/dL 5.0 g/dL Albumin/Globulin Ratio 0.3 (1.0-2.7) L 0.3 (1.0-2.7) L Urine Color Yellow Urine Appearance Cloudy Urine pH 5 (4.5-8.0) Urine Specific [place] 1.025 (1.005-1.035) Urine Protein 4+ (NEGATIVE) H Urine Glucose (UA) Negative (NEGATIVE) Urine Ketones 1+ (NEGATIVE) H Urine Blood Negative (NEGATIVE) Urine Nitrite Negative (NEGATIVE) Urine Bilirubin Negative (NEGATIVE) Urine Urobilinogen 4 MG/DL (0.0-1.0) H Urine Leukocyte Esterase 1+ (NEGATIVE) H Urine RBC 2-4 /HPF (0 - 2) H Urine WBC 2-4 /HPF (0 - 2) Urine Squamous Epithelial Cells Many /LPF (NONE/OCC) H Urine Amorphous Sediment Many /LPF (NONE) H Urine Bacteria Few /HPF (NONE) Urine Hyaline Casts 0-2 /LPF (NONE) H Urine Fine Granular Casts 0-2 /LPF (NONE) H Hemoglobin A1c 8.1 % (4.3-6.0) H Uric Acid 9.7 MG/DL (2.6-7.2) H Phosphorus Level 4.4 MG/DL (2.5-4.9) Magnesium Level 1.9 MG/DL (1.8-2.4) Iron Level 6 ug/dL (50-175) L Total Iron Binding Capacity 143 ug/dL (250-450) L Percent Iron Saturation 4 % (15-50) L Unsaturated Iron Binding 137 ug/dL (112-346) Ferritin 274 NG/ML (8-388) Gamma Glutamyl Transpeptidase 18 U/L (5-85) C-Reactive Protein, Quantitative 57.5 mg/dL (0.00-0.90) H Pro-B-Type Natriuretic Peptide 92177 pg/mL (0-125) H Triglycerides Level 73 MG/DL (30-150) Cholesterol Level 83 MG/DL (< 200) LDL Cholesterol 28 mg/dL (<100) HDL Cholesterol 23 MG/DL (40-60) L Cholesterol/HDL Ratio 3.6 (3.3-4.4) Vitamin B12 Level 1534 PG/ML (193-986) H Folate 6.7 NG/ML (8.6-58.9) L Thyroid Stimulating Hormone (TSH) 2.835 uiU/mL (0.358-3.740) Arterial Blood pH 7.391 (7.350-7.450) Arterial Blood Partial Pressure CO2 35.0 mmHg (35.0-45.0) Arterial Blood Partial Pressure O2 96.1 mmHg (75.0-100.0) Arterial Blood HCO3 20.8 mmol/L (22.0-26.0) L Arterial Blood Oxygen Saturation 96.6 % (95-100) Arterial Blood Base Excess -3.7 (-2-2) L Marlo Test Positive Microbiology Date/Time Source Procedure Growth Status 04/12/19 11:49 Nasal Nares - Final Complete 04/12/19 11:49 Nasal Nares - Final Complete Height (Feet): 5 Height (Inches): 3.00 Weight (Pounds): 145 Medications Current Medications Medications (Trade) Dose Ordered Sig/Kenisha Route PRN Reason Start Time Stop Time Status Last Admin Dose Admin Acetaminophen (Tylenol) 650 mg Q4H PRN ORAL FEVER 04/12/19 14:15 05/12/19 14:14 Albuterol/ Ipratropium (Albuterol/ Ipratropium) 3 ml Q4H PRN HHN Shortness of Breath 04/12/19 14:15 04/17/19 14:14 Cefepime HCl 1 gm/ Dextrose 55 ml @ 110 mls/hr Q24H IVPB 04/13/19 09:00 04/20/19 08:59 04/13/19 08:57 Clopidogrel Bisulfate (Plavix) 75 mg DAILY ORAL 04/13/19 09:00 05/13/19 08:59 04/13/19 08:57 Dextrose (Dextrose 50%) 25 ml Q30M PRN IV Hypoglycemia 04/12/19 19:45 05/12/19 19:44 Dextrose (Dextrose 50%) 50 ml Q30M PRN IV Hypoglycemia 04/12/19 19:45 05/12/19 19:44 Heparin Sodium (Porcine) (Heparin 5000 units/ml) 5,000 units EVERY 12 HOURS SUBQ 04/12/19 21:00 05/12/19 20:59 04/12/19 20:48 Hydralazine HCl (Apresoline) 10 mg EVERY 6 HOURS ORAL 04/12/19 18:00 05/12/19 17:59 04/13/19 05:54 Insulin Aspart (NovoLOG) BEFORE MEALS AND HS SUBQ 04/12/19 21:00 05/12/19 20:59 Metoprolol Tartrate (Lopressor) 75 mg EVERY 12 HOURS ORAL 04/12/19 21:00 05/12/19 20:59 04/13/19 08:57 Morphine Sulfate (Morphine Sulfate) 2 mg Q4H PRN IVP Severe Pain (Pain Scale 7-10) 04/12/19 14:15 04/19/19 14:14 Ondansetron HCl (Zofran) 4 mg Q6H PRN IVP Nausea & Vomiting 04/12/19 14:15 05/12/19 14:14 Polyethylene Glycol (Miralax) 17 gm DAILYPRN PRN ORAL Constipation 04/12/19 14:15 05/12/19 14:14 Sodium Chloride 1,000 ml @ 75 mls/hr [id number] IV 04/12/19 14:30 05/12/19 14:29 04/13/19 05:54 Vancomycin HCl (Vanco rx to dose) 1 ea DAILY PRN MISC Per rx protocol 04/12/19 17:30 05/12/19 17:29 Objective Narrative Gen: NAD on 2L NC HEENT: NCAT, MMM, EOMI, PERRL, No Oral lesion, no scleral icterus NECK: full range of motion, supple, no meningismus, No LAD, No JVD LUNGS: CTAB, No W/C, No Accessory muscle use CARDS: RRR, S1, S2, No M/R/G, ABD: Soft, NT, ND, No R/G, + BS, No HSM, No Masses : Deferred Ext: C/C/E, Pulses 2+ B/L (DP, Rad): NEURO: Following commands, Nods head PSYCH: Normal mood and affect SKIN: Warm/dry, No rashes Assessment/Plan Assessment/Plan: 79 yo female with PMHx of HTN, CVA with hemiplegia and is now not verbal, CKD and CAD. PNA CXR - B/L Infiltrates Aferbile WBCs up to 25 Sp Cx pend Widened mediastimun CXR - Apparent upper mediastinal widening. Possibly due to ectatic vasculature and body abitus, but upper mediastinal mass also possible. Correlate with any prior adiographs and may be available, consider CT for further evaluation if clinically ndicated Need to f/u CT ro R/O mass HTN CVA with hemiplegia and is now not verbal CKD CAD PLAN - Continue Cefepine #1 and Vanocmycin #1 pending Cx - f/u Sputum/Blood Cx - f/u CT scan - Monitor CBC and Temps - further recommendations will be based on CT results Thank you for this consult. We will continue to follow the patient during this hospitalization. Gildardo Gonsalves MD Apr 13, 2019 09:41
[2019-04-13 12:00] VITALS: BP 140/81
--- NOTE | 2019-04-13 12:07 | Pulmonology Progress Note ---
Assessment/Plan Problems: (1) Nosocomial pneumonia (2) Sepsis (3) Acute metabolic encephalopathy (4) At high risk for aspiration (5) 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 (6) Diabetes mellitus (7) History of CVA (cerebrovascular accident) (8) CAD (coronary artery disease) (9) Right hemiplegia (10) Hypertensive heart disease Assessment/Plan vale culture, still pending, wbc still high aggressive IV fluids with D5W check electrolytes daily broad spectrum abx as per ID renal studies reviewed, renal US negative for acute changes f/u urine electrolytes sliding scale with Novolog coverage swallow study. dvt prophylaxis repeat CXR in a few days Subjective ROS Limited/Unobtainable: No Constitutional: Reports: no symptoms HEENT: Repors: no symptoms Respiratory: Reports: no symptoms Allergies: Coded Allergies: No Known Allergies (Unverified , 04/12/19) Objective Last 24 Hour Vital Signs Date Time Temp Pulse Resp B/P (MAP) Pulse Ox O2 Delivery O2 Flow Rate FiO2 04/13/19 08:57 109 134/80 04/13/19 08:00 98.4 109 24 134/80 (98) 97 04/13/19 08:00 Nasal Cannula 2.0 04/13/19 08:00 114 04/13/19 07:45 2.0 04/13/19 06:58 116 30 97 Facial 30 04/13/19 05:54 144/71 04/13/19 05:05 115 24 98 Facial 30 04/13/19 04:00 Bi-pap 04/13/19 04:00 98.8 111 20 121/82 (95) 97 04/13/19 04:00 118 04/13/19 04:00 30 04/13/19 02:45 120 28 99 Facial 30 04/13/19 01:00 108 24 98 Facial 30 04/13/19 00:00 98.1 103 20 140/90 (107) 97 04/13/19 00:00 Bi-pap 04/13/19 00:00 30 04/13/19 00:00 101 04/12/19 23:55 140/82 04/12/19 22:57 103 24 96 Facial 30 04/12/19 20:59 117 32 97 Facial 30 04/12/19 20:18 137 150/90 04/12/19 20:00 137 04/12/19 20:00 30 04/12/19 20:00 Bi-pap 04/12/19 20:00 98.6 137 20 152/90 (110) 97 04/12/19 19:07 78 26 94 Facial 30 04/12/19 17:53 Bi-pap 4.0 04/12/19 17:45 21 04/12/19 17:44 146/87 04/12/19 16:45 98.9 104 16 146/87 100 4.0 21 04/12/19 16:45 82 16 100 Facial 21 04/12/19 15:47 104 27 146/87 94 Bi-pap 4.0 21 04/12/19 14:35 78 14 100 Facial 21 04/12/19 13:52 110 25 127/68 95 Bi-pap 14.0 04/12/19 12:33 14.0 21 04/12/19 12:33 80 16 Bi-pap 4.0 21 04/12/19 12:32 80 16 100 Facial 21 04/12/19 12:28 88 22 100 Bi-Pap 21 Intake and Output 04/12/19 04/13/19 18:59 06:59 Intake Total 4110 ml 1280.0 ml Output Total 300 ml Balance 4110 ml 980.0 ml Intake IV Total 4110 ml 1280.0 ml Output Urine Total 300 ml # Bowel Movements 2 General Appearance: WD/WN HEENT: normocephalic, atraumatic Respiratory/Chest: chest wall non-tender, lungs clear Abdomen: normal bowel sounds, no organomegaly Genitourinary: normal external genitalia Extremities: no cyanosis Skin: no rash Neurologic/Psychiatric: plating operator II-XII grossly normal Microbiology Date/Time Source Procedure Growth Status 04/12/19 11:49 Nasal Nares - Final Complete 04/12/19 11:49 Nasal Nares - Final Complete Laboratory Tests 04/13/19 03:45: White Blood Count 22.0H, Red Blood Count 2.84L, Hemoglobin 8.0L, Hematocrit 24.9L, Mean Corpuscular Volume 88, Mean Corpuscular Hemoglobin 28.2, Mean Corpuscular Hemoglobin Concent 32.1, Red Cell Distribution Width 14.3, Platelet Count 221, Mean Platelet Volume 8.8, Neutrophils (%) (Auto) , Lymphocytes (%) ( Auto) , Monocytes (%) (Auto) , Eosinophils (%) (Auto) , Basophils (%) (Auto) , Differential Total Cells Counted 100, Neutrophils % (Manual) 81H, Lymphocytes % (Manual) 14L, Monocytes % (Manual) 2, Eosinophils % (Manual) 1, Basophils % ( Manual) 0, Band Neutrophils 2, Platelet Estimate Adequate, Platelet Morphology Normal, Polychromasia 1+, Hypochromasia 2+, Anisocytosis 1+, Spherocytes 1+, Sodium Level 158H, Potassium Level 4.2, Chloride Level 122H, Carbon Dioxide Level 21, Anion Gap 15, Blood Urea Nitrogen 77H, Creatinine 2.4H, Estimat Glomerular Filtration Rate , Glucose Level 137H, Hemoglobin A1c 8.1H, Uric Acid 9.7H, Calcium Level 8.8, Phosphorus Level 4.4, Magnesium Level 1.9, Iron Level 6L, Total Iron Binding Capacity 143L, Percent Iron Saturation 4L, Unsaturated Iron Binding 137, Ferritin 274, Total Bilirubin 0.2, Gamma Glutamyl Transpeptidase 18, Aspartate Amino Transf (AST/SGOT) 18, Alanine Aminotransferase (ALT/SGPT) 7L, Alkaline Phosphatase 73, Troponin I 0.184H, C- Reactive Protein, Quantitative 57.5H, Pro-B-Type Natriuretic Peptide 85672Q, Total Protein 6.6, Albumin 1.6L, Globulin 5.0, Albumin/Globulin Ratio 0.3L, Triglycerides Level 73, Cholesterol Level 83, LDL Cholesterol 28, HDL Cholesterol 23L, Cholesterol/HDL Ratio 3.6, Vitamin B12 Level 1534H, Folate 6.7L , Thyroid Stimulating Hormone (TSH) 2.835 04/13/19 07:26: Arterial Blood pH 7.391, Arterial Blood Partial Pressure CO2 35.0, Arterial Blood Partial Pressure O2 96.1, Arterial Blood HCO3 20.8L, Arterial Blood Oxygen Saturation 96.6, Arterial Blood Base Excess -3.7L, Marlo Test Positive Current Medications Medications (Trade) Dose Ordered Sig/Kenisha Route PRN Reason Start Time Stop Time Status Last Admin Dose Admin Acetaminophen (Tylenol) 650 mg Q4H PRN ORAL FEVER 04/12/19 14:15 05/12/19 14:14 Albuterol/ Ipratropium (Albuterol/ Ipratropium) 3 ml Q4H PRN HHN Shortness of Breath 04/12/19 14:15 04/17/19 14:14 Cefepime HCl 1 gm/ Dextrose 55 ml @ 110 mls/hr Q24H IVPB 04/13/19 09:00 04/20/19 08:59 04/13/19 08:57 Clopidogrel Bisulfate (Plavix) 75 mg DAILY ORAL 04/13/19 09:00 05/13/19 08:59 04/13/19 08:57 Dextrose 1,000 ml @ 100 mls/hr Q10H IV 04/13/19 09:45 05/13/19 09:44 04/13/19 09:57 Dextrose (Dextrose 50%) 25 ml Q30M PRN IV Hypoglycemia 04/12/19 19:45 05/12/19 19:44 Dextrose (Dextrose 50%) 50 ml Q30M PRN IV Hypoglycemia 04/12/19 19:45 05/12/19 19:44 Heparin Sodium (Porcine) (Heparin 5000 units/ml) 5,000 units EVERY 12 HOURS SUBQ 04/12/19 21:00 05/12/19 20:59 04/12/19 20:48 Hydralazine HCl (Apresoline) 10 mg EVERY 6 HOURS ORAL 04/12/19 18:00 05/12/19 17:59 04/13/19 05:54 Insulin Aspart (NovoLOG) BEFORE MEALS AND HS SUBQ 04/12/19 21:00 05/12/19 20:59 Metoprolol Tartrate (Lopressor) 75 mg EVERY 12 HOURS ORAL 04/12/19 21:00 05/12/19 20:59 04/13/19 08:57 Morphine Sulfate (Morphine Sulfate) 2 mg Q4H PRN IVP Severe Pain (Pain Scale 7-10) 04/12/19 14:15 04/19/19 14:14 Ondansetron HCl (Zofran) 4 mg Q6H PRN IVP Nausea & Vomiting 04/12/19 14:15 05/12/19 14:14 Polyethylene Glycol (Miralax) 17 gm DAILYPRN PRN ORAL Constipation 04/12/19 14:15 05/12/19 14:14 Vancomycin HCl (Vanco rx to dose) 1 ea DAILY PRN MISC Per rx protocol 04/12/19 17:30 05/12/19 17:29 Tony Springer MD Apr 13, 2019 12:07
--- NOTE | 2019-04-13 12:23 | NUR ---
CASE MANAGEMENT: INITIAL REVIEW 79 YO F ACOSTA FROM [facility] CONV CC: FEVER PMHx: HTN. HEMIPLEGIA. CVA. DM. RENAL DX. SI:SEPSIS. T 99 HR 107 RR 18 B/P 120/75 SATS 94% ON RA WBC 25.4 NA 158 CL 120 BUN 76 CR 2.3 GLU 189 AST 13 ALT 8 ABGs HCO3 20.8 BE -3.7 IS: NS BOLUS X1 ROCEPHIN IV X1 ALBUTEROL HHN X1 PATIENT ADMITTED TO SDU 04/12/2019 @ 1240 DCP: PATIENT TO BE DISCHARGED TO SNF ONCE MEDICALLY CLEARED. PLAN OF CARE: 1. BiPAP per Pulmonary. 2. Antibiotic per Infectious Disease. 3. Blood pressure and blood sugar control. 4. IV fluids. Addendum: 04/13/19 at 1235 by Rosa Kowalski INTERQUAL MET
[2019-04-13 12:32] LABS: CREATINE KINASE 35 U/L (26-308)
[2019-04-13 13:15] LABS: APPEARANCE,URINE SLIGHTLY CLOUDY; BILIRUBIN, URINE NEGATIVE (NEGATIVE); COLOR,URINE PALE YELLOW; GLUCOSE, URINE (UA) NEGATIVE (NEGATIVE); KETONES,URINE NEGATIVE (NEGATIVE); LEUKOCYTE ESTERASE ,URINE NEGATIVE (NEGATIVE); NITRITE,URINE NEGATIVE (NEGATIVE); PH,URINE 5 (4.5-8.0); PROTEIN,URINE 3+ (NEGATIVE); UROBILINOGEN,URINE NORMAL MG/DL (0.0-1.0)
--- NOTE | 2019-04-13 13:51 | NUR ---
*-* INSURANCE *-* ALL CLINICALS AND REVIEWS HAVE BEEN FAXED TO: [facility] P: [phone] F: [phone] (FAX CLINICALS) Addendum: 04/13/19 at 1620 by RUTH PATEL CM cindy# [id number]
--- NOTE | 2019-04-13 13:53 | General Progress Note ---
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 ICD Codes: E11.22 - Type 2 diabetes mellitus with diabetic chronic kidney disease; N18.4 - Chronic kidney disease, stage 4 (severe) SNOMED: 77261573, 620020502, 848463066 Status: unchanged Assessment/Plan: pt diet abx o2 pulm tx neuro psyc eval cbc bmp am Subjective Constitutional: Reports: weakness Allergies: Coded Allergies: No Known Allergies (Unverified , 04/12/19) All Systems: reviewed and negative except above Subjective o2nc sleep Objective Last 24 Hour Vital Signs Date Time Temp Pulse Resp B/P (MAP) Pulse Ox O2 Delivery O2 Flow Rate FiO2 04/13/19 12:00 Nasal Cannula 2.0 04/13/19 12:00 97.7 94 20 140/81 (100) 100 04/13/19 12:00 2.0 04/13/19 12:00 95 04/13/19 11:49 140/81 04/13/19 08:57 109 134/80 04/13/19 08:00 98.4 109 24 134/80 (98) 97 04/13/19 08:00 Nasal Cannula 2.0 04/13/19 08:00 114 04/13/19 07:45 2.0 04/13/19 06:58 116 30 97 Facial 30 04/13/19 05:54 144/71 04/13/19 05:05 115 24 98 Facial 30 04/13/19 04:00 Bi-pap 04/13/19 04:00 98.8 111 20 121/82 (95) 97 04/13/19 04:00 118 04/13/19 04:00 30 04/13/19 02:45 120 28 99 Facial 30 04/13/19 01:00 108 24 98 Facial 30 04/13/19 00:00 98.1 103 20 140/90 (107) 97 04/13/19 00:00 Bi-pap 04/13/19 00:00 30 04/13/19 00:00 101 04/12/19 23:55 140/82 04/12/19 22:57 103 24 96 Facial 30 04/12/19 20:59 117 32 97 Facial 30 04/12/19 20:18 137 150/90 04/12/19 20:00 137 04/12/19 20:00 30 04/12/19 20:00 Bi-pap 04/12/19 20:00 98.6 137 20 152/90 (110) 97 04/12/19 19:07 78 26 94 Facial 30 04/12/19 17:53 Bi-pap 4.0 04/12/19 17:45 21 04/12/19 17:44 146/87 04/12/19 16:45 98.9 104 16 146/87 100 4.0 21 04/12/19 16:45 82 16 100 Facial 21 04/12/19 15:47 104 27 146/87 94 Bi-pap 4.0 21 04/12/19 14:35 78 14 100 Facial 21 04/12/19 13:52 110 25 127/68 95 Bi-pap 14.0 21 Intake and Output 04/12/19 04/13/19 19:00 07:00 Intake Total 4185 ml 1280.0 ml Output Total 300 ml Balance 4185 ml 980.0 ml Intake IV Total 4185 ml 1280.0 ml Output Urine Total 300 ml # Bowel Movements 2 Laboratory Tests 04/13/19 03:45: White Blood Count 22.0H, Red Blood Count 2.84L, Hemoglobin 8.0L, Hematocrit 24.9L, Mean Corpuscular Volume 88, Mean Corpuscular Hemoglobin 28.2, Mean Corpuscular Hemoglobin Concent 32.1, Red Cell Distribution Width 14.3, Platelet Count 221, Mean Platelet Volume 8.8, Neutrophils (%) (Auto) , Lymphocytes (%) ( Auto) , Monocytes (%) (Auto) , Eosinophils (%) (Auto) , Basophils (%) (Auto) , Differential Total Cells Counted 100, Neutrophils % (Manual) 81H, Lymphocytes % (Manual) 14L, Monocytes % (Manual) 2, Eosinophils % (Manual) 1, Basophils % ( Manual) 0, Band Neutrophils 2, Platelet Estimate Adequate, Platelet Morphology Normal, Polychromasia 1+, Hypochromasia 2+, Anisocytosis 1+, Spherocytes 1+, Sodium Level 158H, Potassium Level 4.2, Chloride Level 122H, Carbon Dioxide Level 21, Anion Gap 15, Blood Urea Nitrogen 77H, Creatinine 2.4H, Estimat Glomerular Filtration Rate , Glucose Level 137H, Hemoglobin A1c 8.1H, Uric Acid 9.7H, Calcium Level 8.8, Phosphorus Level 4.4, Magnesium Level 1.9, Iron Level 6L, Total Iron Binding Capacity 143L, Percent Iron Saturation 4L, Unsaturated Iron Binding 137, Ferritin 274, Total Bilirubin 0.2, Gamma Glutamyl Transpeptidase 18, Aspartate Amino Transf (AST/SGOT) 18, Alanine Aminotransferase (ALT/SGPT) 7L, Alkaline Phosphatase 73, Total Creatine Kinase 35, Troponin I 0.184H, C-Reactive Protein, Quantitative 57.5H, Pro-B-Type Natriuretic Peptide 68776N, Total Protein 6.6, Albumin 1.6L, Globulin 5.0, Albumin/Globulin Ratio 0.3L, Triglycerides Level 73, Cholesterol Level 83, LDL Cholesterol 28, HDL Cholesterol 23L, Cholesterol/HDL Ratio 3.6, Vitamin B12 Level 1534H, Folate 6.7L, Thyroid Stimulating Hormone (TSH) 2.835 04/13/19 07:26: Arterial Blood pH 7.391, Arterial Blood Partial Pressure CO2 35.0, Arterial Blood Partial Pressure O2 96.1, Arterial Blood HCO3 20.8L, Arterial Blood Oxygen Saturation 96.6, Arterial Blood Base Excess -3.7L, Marlo Test Positive 04/13/19 13:05: Urine Color Pale yellow, Urine Appearance Slightly cloudy, Urine pH 5, Urine Specific [place] 1.015, Urine Protein 3+H, Urine Glucose (UA) Negative, Urine Ketones Negative, Urine Blood 4+H, Urine Nitrite Negative, Urine Bilirubin Negative, Urine Urobilinogen Normal, Urine Leukocyte Esterase Negative, Urine RBC 40-60H, Urine WBC 2-4, Urine Squamous Epithelial Cells ManyH, Urine Amorphous Sediment ManyH, Urine Bacteria Few, Urine Granular Casts 2-4H, Urine Fine Granular Casts 2-4H, Urine Eosinophils [Pending], Urine Osmolality [Pending ], Urine Random Creatinine [Pending], Urine Random Microalbumin [Pending], Urine Random Sodium 86, Urine Microalbumin/Creatinine Ratio [Pending] Height (Feet): 5 Height (Inches): 3.00 Weight (Pounds): 145 General Appearance: lethargic EENT: normal ENT inspection Neck: normal alignment Cardiovascular: normal peripheral pulses, normal rate, regular rhythm Respiratory/Chest: chest wall non-tender, lungs clear, normal breath sounds Abdomen: normal bowel sounds, non tender, soft Extremities: normal inspection Edema: no edema noted Arm (L), no edema noted Arm (R), no edema noted Leg (L), no edema noted Leg (R), no edema noted Pedal (L), no edema noted Pedal (R), no edema noted Generalized Neurologic: motor weakness Skin: normal pigmentation, warm/dry Jama Keating DO Apr 13, 2019 13:53
--- NOTE | 2019-04-13 14:04 | NUR ---
RECEIVED BEDSIDE SWALLOW EVAL ORDER CHART REVIEWED PRIOR THE EVALUATION PT IS A 79-YEAR-OLD FEMALE WHO WAS ADMITTED FOR SEPSIS, PNA. DYSPHAGIA RISK FACTORS: PNA, SEPSIS, CVA(2010) AND ANOTHER CVA, W/R-SIDED AND L-SIDED WEAKNESS, HTN, DMII. Impression: Bilateral basilar infiltrates, likely pneumonia Possible small left pleural effusion PLOF: PT RESIDES AT INTERMEDIATE FACILITY. PER MARCELLO, PT WAS ON MINCED GIANNA, CCHO DIET NO POLST WAS NOTED IN THE CHART. CURRENT STATUS: PT SEEN AT BEDSIDE IN AM. ALERT, COOPERATIVE, LIMITED VERBAL, INCONSISTENTLY FOLLOWS SIMPLE DIRECTIONS, PT WAS ON BIPAP LAST NIGHT. CURRENTLY, PT IS ON NC(2L). 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 FAIR LARYNGEAL ELEVATION, NO OVERT S/S OF ASPIRATION. HAS HIGH RISK FOR SILENT ASPIRATION DUE TO CURRENT PNA AND H/O CVA. RECOMMENDATIONS: 1. CONSERVATIVELY, MODIFIED BARIUM SWALLOW STUDY PRIOR PO DIET. 2. IF PO IS GIVEN FOR QUALITY OF LIFE, CONSIDER LIQUIFIED PUREED, LIKE NECTAR THICK SOUP CONSISTENCY WITH NECTAR THICK LIQUIDS WITH STRICT ASPIRATION PRECAUTIONS WITH 1TO1 FEEDING 3. MODIFIED BARIUM SWALLOW STUDY. 4. SKILLED ST LOVE D/W HORTENCIA, CATRACHITO. POSTED NPO SIGN AND ASPIRATION PRECAUTION SIGN.
--- NOTE | 2019-04-13 14:04 | NUR ---
ST NOTE: BEDSIDE SWALLOW EVAL RECEIVED BEDSIDE SWALLOW EVAL ORDER CHART REVIEWED PRIOR THE EVALUATION PT IS A 79-YEAR-OLD FEMALE WHO WAS ADMITTED FOR SEPSIS, PNA. DYSPHAGIA RISK FACTORS: PNA, SEPSIS, CVA(2010) AND ANOTHER CVA, W/R-SIDED AND L-SIDED WEAKNESS, HTN, DMII. Impression: Bilateral basilar infiltrates, likely pneumonia Possible small left pleural effusion PLOF: PT RESIDES AT [facility] FACILITY. PER MARCELLO, PT WAS ON MINCED GIANNA, CCHO DIET NO POLST WAS NOTED IN THE CHART. CURRENT STATUS: PT SEEN AT BEDSIDE IN AM. ALERT, COOPERATIVE, LIMITED VERBAL, INCONSISTENTLY FOLLOWS SIMPLE DIRECTIONS, PT WAS ON BIPAP LAST NIGHT. CURRENTLY, PT IS ON NC(2L). 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 FAIR LARYNGEAL ELEVATION, NO OVERT S/S OF ASPIRATION. HAS HIGH RISK FOR SILENT ASPIRATION DUE TO CURRENT PNA AND H/O CVA. RECOMMENDATIONS: 1. CONSERVATIVELY, MODIFIED BARIUM SWALLOW STUDY PRIOR PO DIET. 2. IF PO IS GIVEN FOR QUALITY OF LIFE, CONSIDER LIQUIFIED PUREED, LIKE NECTAR THICK SOUP CONSISTENCY WITH NECTAR THICK LIQUIDS WITH STRICT ASPIRATION PRECAUTIONS WITH 1TO1 FEEDING 3. MODIFIED BARIUM SWALLOW STUDY. 4. SKILLED ST SERVICE D/W RN, CATRACHITO. POSTED NPO SIGN AND ASPIRATION PRECAUTION SIGN.
--- NOTE | 2019-04-13 15:21 | NUR ---
P.T NOTE: P.T EVALUATION COMPLETED AND TREATMENT INITIATED . PLEASE REFER TO P.T EVALUATION FOR CURRENT FUNCTIONAL STATUS.PATIENT IS ALERT, NON VERBAL DUE TO APHASIA, FOLLOWS SIMPLE ONE STEP COMMANDS THRU DEMONSTRATIONAL/TACTILE/VERBAL CUES. PATIENT IS DEPENDENT/TOTAL ASSIST IN ALL BED MOBILITIES. PATIENT ABLE TO SIT WITH MAX/TOTAL ASSIST FOR 3MINS. PATIENT WILL BENEFIT FROM SKILLED P.T SERVICE TO INCREASE STRENGTH, BALANCE AND ENDURANCE TO IMPROVE ACTIVITY TOLERANCE, MOBILITY INDEPENDENCE WELL TO PREVENT FURTHER COMPLICATIONS OF PROLONGED BEDREST AND IMMOBILITY I.E FURTHER DECONDITIONING, CONTRACTURES AND PRESSURE ULCERS. RECOMMEND RETURN TO SNF WITH CONTINUED P.T ST DC. Addendum: 04/13/19 at 1522 by HI RENEE PT Amended: Links added.
--- NOTE | 2019-04-13 15:36 | NUR ---
RD ASSESSMENT & RECOMMENDATIONS SEE CARE ACTIVITY FOR COMPLETE ASSESSMENT DAILY ESTIMATED NEEDS: Needs based on Sepsis, DM, cardiac/ 58kg abw 25-30 kcals/kg 9726-4272 total kcals 1-2 g protein/kg 58-116 g total protein 25-30 mL/kg 7386-3159 total fluid mLs NUTRITION DIAGNOSIS: * Swallowing difficulty R/T dysphagia, h/o CVA as evidenced by WORKERS' COMPENSATION CLAIMS EXAMINER recommends VSS prior to diet initiation, NPO at this time. * Altered nutrition related lab values R/T diabetes, ARF, cardiac hx as evidenced by A1C of 8.1, elev creat (2.4), elev BNP (49847). CURRENT DIET:NPO PO DIET RECOMMENDATIONS: LOW NA, CCHO MED/ texture per WORKERS' COMPENSATION CLAIMS EXAMINER ADDITIONAL RECOMMENDATIONS: * Calibrated bedscale wt for accurate CBW * F/up VSS result * Add Glucerna TID w/ liquify puree texture diet * Monitor PO intake and tolerance w/ diet initiation * Folic acid supplement- low folate level of 6.7
--- NOTE | 2019-04-13 15:39 | Nephrology Progress Note ---
Assessment/Plan Problem List: (1) Renal failure (ARF), acute on chronic (2) Diabetic nephropathy (3) Sepsis (4) Pneumonia (5) Right hemiplegia (6) Anemia in chronic kidney disease (CKD) Assessment Renal failure; - Pre Renal - ? Underlying Renal Anemia Pneumonia / respiratory failure ? aspiration prone Sepsis elevated Troponin UTI HyperGlycemia / DM Right Esvin HTN Plan Fraga Hydrate BP and BS control urine studies slow hydrate kidney MAIKEL results noted: No [place] 2D echo P avoid Nephrotoxics per orders Subjective ROS Limited/Unobtainable: No Constitutional: Reports: malaise, weakness Objective Objective Last 24 Hour Vital Signs Date Time Temp Pulse Resp B/P (MAP) Pulse Ox O2 Delivery O2 Flow Rate FiO2 04/13/19 12:00 Nasal Cannula 2.0 04/13/19 12:00 97.7 94 20 140/81 (100) 100 04/13/19 12:00 2.0 04/13/19 12:00 95 04/13/19 11:49 140/81 04/13/19 08:57 109 134/80 04/13/19 08:00 98.4 109 24 134/80 (98) 97 04/13/19 08:00 Nasal Cannula 2.0 04/13/19 08:00 114 04/13/19 07:45 2.0 04/13/19 06:58 116 30 97 Facial 30 04/13/19 05:54 144/71 04/13/19 05:05 115 24 98 Facial 30 04/13/19 04:00 Bi-pap 04/13/19 04:00 98.8 111 20 121/82 (95) 97 04/13/19 04:00 118 04/13/19 04:00 30 04/13/19 02:45 120 28 99 Facial 30 04/13/19 01:00 108 24 98 Facial 30 04/13/19 00:00 98.1 103 20 140/90 (107) 97 04/13/19 00:00 Bi-pap 04/13/19 00:00 30 04/13/19 00:00 101 04/12/19 23:55 140/82 04/12/19 22:57 103 24 96 Facial 30 04/12/19 20:59 117 32 97 Facial 30 04/12/19 20:18 137 150/90 04/12/19 20:00 137 04/12/19 20:00 30 04/12/19 20:00 Bi-pap 04/12/19 20:00 98.6 137 20 152/90 (110) 97 04/12/19 19:07 78 26 94 Facial 30 04/12/19 17:53 Bi-pap 4.0 04/12/19 17:45 21 04/12/19 17:44 146/87 04/12/19 16:45 98.9 104 16 146/87 100 4.0 21 04/12/19 16:45 82 16 100 Facial 21 04/12/19 15:47 104 27 146/87 94 Bi-pap 4.0 21 Intake and Output 04/12/19 04/13/19 19:00 07:00 Intake Total 4185 ml 1280.0 ml Output Total 300 ml Balance 4185 ml 980.0 ml Intake IV Total 4185 ml 1280.0 ml Output Urine Total 300 ml # Bowel Movements 2 Laboratory Tests 04/13/19 03:45: White Blood Count 22.0H, Red Blood Count 2.84L, Hemoglobin 8.0L, Hematocrit 24.9L, Mean Corpuscular Volume 88, Mean Corpuscular Hemoglobin 28.2, Mean Corpuscular Hemoglobin Concent 32.1, Red Cell Distribution Width 14.3, Platelet Count 221, Mean Platelet Volume 8.8, Neutrophils (%) (Auto) , Lymphocytes (%) ( Auto) , Monocytes (%) (Auto) , Eosinophils (%) (Auto) , Basophils (%) (Auto) , Differential Total Cells Counted 100, Neutrophils % (Manual) 81H, Lymphocytes % (Manual) 14L, Monocytes % (Manual) 2, Eosinophils % (Manual) 1, Basophils % ( Manual) 0, Band Neutrophils 2, Platelet Estimate Adequate, Platelet Morphology Normal, Polychromasia 1+, Hypochromasia 2+, Anisocytosis 1+, Spherocytes 1+, Sodium Level 158H, Potassium Level 4.2, Chloride Level 122H, Carbon Dioxide Level 21, Anion Gap 15, Blood Urea Nitrogen 77H, Creatinine 2.4H, Estimat Glomerular Filtration Rate , Glucose Level 137H, Hemoglobin A1c 8.1H, Uric Acid 9.7H, Calcium Level 8.8, Phosphorus Level 4.4, Magnesium Level 1.9, Iron Level 6L, Total Iron Binding Capacity 143L, Percent Iron Saturation 4L, Unsaturated Iron Binding 137, Ferritin 274, Total Bilirubin 0.2, Gamma Glutamyl Transpeptidase 18, Aspartate Amino Transf (AST/SGOT) 18, Alanine Aminotransferase (ALT/SGPT) 7L, Alkaline Phosphatase 73, Total Creatine Kinase 35, Troponin I 0.184H, C-Reactive Protein, Quantitative 57.5H, Pro-B-Type Natriuretic Peptide [id number], Total Protein 6.6, Albumin 1.6L, Globulin 5.0, Albumin/Globulin Ratio 0.3L, Triglycerides Level 73, Cholesterol Level 83, LDL Cholesterol 28, HDL Cholesterol 23L, Cholesterol/HDL Ratio 3.6, Vitamin B12 Level 1534H, Folate 6.7L, Thyroid Stimulating Hormone (TSH) 2.835 04/13/19 07:26: Arterial Blood pH 7.391, Arterial Blood Partial Pressure CO2 35.0, Arterial Blood Partial Pressure O2 96.1, Arterial Blood HCO3 20.8L, Arterial Blood Oxygen Saturation 96.6, Arterial Blood Base Excess -3.7L, Marlo Test Positive 04/13/19 13:05: Urine Color Pale yellow, Urine Appearance Slightly cloudy, Urine pH 5, Urine Specific [place] 1.015, Urine Protein 3+H, Urine Glucose (UA) Negative, Urine Ketones Negative, Urine Blood 4+H, Urine Nitrite Negative, Urine Bilirubin Negative, Urine Urobilinogen Normal, Urine Leukocyte Esterase Negative, Urine RBC 40-60H, Urine WBC 2-4, Urine Squamous Epithelial Cells ManyH, Urine Amorphous Sediment ManyH, Urine Bacteria Few, Urine Granular Casts 2-4H, Urine Fine Granular Casts 2-4H, Urine Eosinophils None seen, Urine Osmolality 432, Urine Random Creatinine [Pending], Urine Random Microalbumin [Pending], Urine Random Sodium 86, Urine Microalbumin/Creatinine Ratio [Pending] Height (Feet): 5 Height (Inches): 3.00 Weight (Pounds): 145 Wally Spivey MD Apr 13, 2019 15:39
[2019-04-13] MEDS ORDERED: LORazepam 1mg tab ORAL PRN (15:45)
--- NOTE | 2019-04-13 15:59 | Cardiology Report ---
APPROVED REPORT EXAM: Two-dimensional and M-mode echocardiogram with Doppler and color Doppler. INDICATION Congestive Heart Failure M-Mode DIMENSIONS IVSd1.2 (0.7-1.1cm)Left Atrium (MM)3.6 (1.6-4.0cm) LVDd3.7 (3.5-5.6cm)Aortic Root2.3 (2.0-3.7cm) PWd1.1 (0.7-1.1cm)Aortic Cusp Exc.1.0 (1.5-2.0cm) LVDs2.5 (2.5-4.0cm) PWs1.5 cm Technically difficult study due to combative pt. Normal left ventricular chamber size, systolic function and wall motion to extent visualized except distal setum and inferiro wall hypokinesis Left ventricular ejection fraction estimated to be 55-60 %. Moderate left ventricular hypertrophy by 2-D. No evidence of pericardial effusion. Mild left atrial enlargement. Right cardiac chamber sizes are within normal limits. Aortic valve calcification with decreased cusp excursion c/w severe aortic stenosis. Thickened mitral valve leaflets with reduced excursion. Heavy mitral annulus and aortic root calcification. Pulmonic valve not well visualized. Normal tricuspid valve structure. IVC at normal size with physiologic collapse. A color flow and spectral Doppler study was performed and revealed: Mild aortic regurgitation. Peak aortic valve gradient of 83 mm Hg and a mean of 49 mmHg c/w severe Aortic valve area 0.8 cm2 calculated by continuity equation. Mild mitral regurgitation. Peak mitral valve gradient of 24 mm Hg and a mean of 10 mmHg c/w moderate to sever MS Mitral diastolic velocities suggest reduced left ventricular relaxation c/w mild LV diastolic dysfunction (Grade I). Mild tricuspid regurgitation. Tricuspid systolic velocities suggests peak right ventricular systolic pressure of 53 mmHg, consistent with moderate pulmonary hypertension. Pulmonic regurgitation present.
[2019-04-13 16:00] VITALS: BP 122/70
[2019-04-13] MEDS ORDERED: LORazepam 0.5mg tab ORAL PRN (16:00)
--- NOTE | 2019-04-13 16:01 | Cardiology Report ---
APPROVED REPORT EKG Measurement Heart [id number] PA [id number] Sinus tachycardia Left axis deviation Incomplete right bundle branch block Moderate voltage criteria for LVH, may be normal variant Abnormal ECG
--- NOTE | 2019-04-13 16:07 | Cardiology Report ---
APPROVED REPORT EKG Measurement Heart [id number] [place] 98P60 [id number] Sinus tachycardia with short [place] Possible Left atrial enlargement Incomplete right bundle branch block Left anterior fascicular block Left ventricular hypertrophy with repolarization abnormality Prolonged QT Abnormal ECG
[2019-04-13] MEDS: Memantine 5 MG TAB ORAL SCH (17:07)
--- NOTE | 2019-04-13 17:09 | Cardiac Electrophysiology PN ---
Assessment/Plan Assessment/Plan 1. Sinus tachycardia, likely due to combination of dehydration and azotemia. The patient will be getting gentle hydration by Dr. Spivey.No fib or SVT 2. Sepsis. The patient's lactic acid is 2. White count is 25,000. 3. Anemia. 4. History of CVA with hemiplegia. 5. Nonverbal status. 6. Renal failure. 7. Coronary artery disease. On metoprolol 75 mg b.i.d. and Plavix 75 mg daily Subjective Subjective NPO. Video swallow pending. In SR. Objective Last 24 Hour Vital Signs Date Time Temp Pulse Resp B/P (MAP) Pulse Ox O2 Delivery O2 Flow Rate FiO2 04/13/19 16:00 Nasal Cannula 2.0 04/13/19 16:00 98.5 94 20 122/70 (87) 100 04/13/19 15:50 2.0 04/13/19 15:49 77 04/13/19 12:00 Nasal Cannula 2.0 04/13/19 12:00 97.7 94 20 140/81 (100) 100 04/13/19 12:00 2.0 04/13/19 12:00 95 04/13/19 11:49 140/81 04/13/19 08:57 109 134/80 04/13/19 08:00 98.4 109 24 134/80 (98) 97 04/13/19 08:00 Nasal Cannula 2.0 04/13/19 08:00 114 04/13/19 07:45 2.0 04/13/19 06:58 116 30 97 Facial 30 04/13/19 05:54 144/71 04/13/19 05:05 115 24 98 Facial 30 04/13/19 04:00 Bi-pap 04/13/19 04:00 98.8 111 20 121/82 (95) 97 04/13/19 04:00 118 04/13/19 04:00 30 04/13/19 02:45 120 28 99 Facial 30 04/13/19 01:00 108 24 98 Facial 30 04/13/19 00:00 98.1 103 20 140/90 (107) 97 04/13/19 00:00 Bi-pap 04/13/19 00:00 30 04/13/19 00:00 101 04/12/19 23:55 140/82 04/12/19 22:57 103 24 96 Facial 30 04/12/19 20:59 117 32 97 Facial 30 04/12/19 20:18 137 150/90 04/12/19 20:00 137 04/12/19 20:00 30 04/12/19 20:00 Bi-pap 04/12/19 20:00 98.6 137 20 152/90 (110) 97 04/12/19 19:07 78 26 94 Facial 30 04/12/19 17:53 Bi-pap 4.0 04/12/19 17:45 21 04/12/19 17:44 146/87 Intake and Output 04/12/19 04/13/19 19:00 07:00 Intake Total 4185 ml 1280.0 ml Output Total 300 ml Balance 4185 ml 980.0 ml Intake IV Total 4185 ml 1280.0 ml Output Urine Total 300 ml # Bowel Movements 2 Laboratory Tests Test 04/13/19 03:45 04/13/19 07:26 04/13/19 13:05 White Blood Count 22.0 K/UL (4.8-10.8) H Red Blood Count 2.84 M/UL (4.20-5.40) L Hemoglobin 8.0 G/DL (12.0-16.0) L Hematocrit 24.9 % (37.0-47.0) L Mean Corpuscular Volume 88 FL (80-99) Mean Corpuscular Hemoglobin 28.2 PG (27.0-31.0) Mean Corpuscular Hemoglobin Concent 32.1 G/DL (32.0-36.0) Red Cell Distribution Width 14.3 % (11.6-14.8) Platelet Count 221 K/UL (150-450) Mean Platelet Volume 8.8 FL (6.5-10.1) Neutrophils (%) (Auto) % (45.0-75.0) Lymphocytes (%) (Auto) % (20.0-45.0) Monocytes (%) (Auto) % (1.0-10.0) Eosinophils (%) (Auto) % (0.0-3.0) Basophils (%) (Auto) % (0.0-2.0) Differential Total Cells Counted 100 Neutrophils % (Manual) 81 % (45-75) H Lymphocytes % (Manual) 14 % (20-45) L Monocytes % (Manual) 2 % (1-10) Eosinophils % (Manual) 1 % (0-3) Basophils % (Manual) 0 % (0-2) Band Neutrophils 2 % (0-8) Platelet Estimate Adequate Platelet Morphology Normal Polychromasia 1+ Hypochromasia 2+ Anisocytosis 1+ Spherocytes 1+ Sodium Level 158 MMOL/L (136-145) H Potassium Level 4.2 MMOL/L (3.5-5.1) Chloride Level 122 MMOL/L (98-107) H Carbon Dioxide Level 21 MMOL/L (21-32) Anion Gap 15 mmol/L (5-15) Blood Urea Nitrogen 77 mg/dL (7-18) H Creatinine 2.4 MG/DL (0.55-1.30) H Estimat Glomerular Filtration Rate mL/min (>60) Glucose Level 137 MG/DL (74-106) H Hemoglobin A1c 8.1 % (4.3-6.0) H Uric Acid 9.7 MG/DL (2.6-7.2) H Calcium Level 8.8 MG/DL (8.5-10.1) Phosphorus Level 4.4 MG/DL (2.5-4.9) Magnesium Level 1.9 MG/DL (1.8-2.4) Iron Level 6 ug/dL (50-175) L Total Iron Binding Capacity 143 ug/dL (250-450) L Percent Iron Saturation 4 % (15-50) L Unsaturated Iron Binding 137 ug/dL (112-346) Ferritin 274 NG/ML (8-388) Total Bilirubin 0.2 MG/DL (0.2-1.0) Gamma Glutamyl Transpeptidase 18 U/L (5-85) Aspartate Amino Transf (AST/SGOT) 18 U/L (15-37) Alanine Aminotransferase (ALT/SGPT) 7 U/L (12-78) L Alkaline Phosphatase 73 U/L (46-116) Total Creatine Kinase 35 U/L (26-308) Troponin I 0.184 ng/mL (0.000-0.056) C-Reactive Protein, Quantitative 57.5 mg/dL (0.00-0.90) H Pro-B-Type Natriuretic Peptide 95248 pg/mL (0-125) H Total Protein 6.6 G/DL (6.4-8.2) Albumin 1.6 G/DL (3.4-5.0) L Globulin 5.0 g/dL Albumin/Globulin Ratio 0.3 (1.0-2.7) L Triglycerides Level 73 MG/DL (30-150) Cholesterol Level 83 MG/DL (< 200) LDL Cholesterol 28 mg/dL (<100) HDL Cholesterol 23 MG/DL (40-60) L Cholesterol/HDL Ratio 3.6 (3.3-4.4) Vitamin B12 Level 1534 PG/ML (193-986) H Folate 6.7 NG/ML (8.6-58.9) L Thyroid Stimulating Hormone (TSH) 2.835 uiU/mL (0.358-3.740) Arterial Blood pH 7.391 (7.350-7.450) Arterial Blood Partial Pressure CO2 35.0 mmHg (35.0-45.0) Arterial Blood Partial Pressure O2 96.1 mmHg (75.0-100.0) Arterial Blood HCO3 20.8 mmol/L (22.0-26.0) L Arterial Blood Oxygen Saturation 96.6 % (95-100) Arterial Blood Base Excess -3.7 (-2-2) L Marlo Test Positive Urine Color Pale yellow Urine Appearance Slightly cloudy Urine pH 5 (4.5-8.0) Urine Specific [place] 1.015 (1.005-1.035) Urine Protein 3+ (NEGATIVE) H Urine Glucose (UA) Negative (NEGATIVE) Urine Ketones Negative (NEGATIVE) Urine Blood 4+ (NEGATIVE) H Urine Nitrite Negative (NEGATIVE) Urine Bilirubin Negative (NEGATIVE) Urine Urobilinogen Normal MG/DL (0.0-1.0) Urine Leukocyte Esterase Negative (NEGATIVE) Urine RBC 40-60 /HPF (0 - 2) H Urine WBC 2-4 /HPF (0 - 2) Urine Squamous Epithelial Cells Many /LPF (NONE/OCC) H Urine Amorphous Sediment Many /LPF (NONE) H Urine Bacteria Few /HPF (NONE) Urine Granular Casts 2-4 /LPF (NONE) H Urine Fine Granular Casts 2-4 /LPF (NONE) H Urine Eosinophils None seen (NONE SEEN) Urine Osmolality 432 mOsm/kg (429-449) Urine Random Creatinine Pending Urine Random Microalbumin Pending Urine Random Sodium 86 mmol/L (20-110) Urine Microalbumin/Creatinine Ratio Pending Microbiology Date/Time Source Procedure Growth Status 04/12/19 11:49 Nasal Nares - Final Complete 04/12/19 11:49 Nasal Nares - Final Complete Objective HEAD AND NECK: Showed no JVD. LUNGS: Coarse rhonchi bilaterally. CARDIOVASCULAR: Regular S1 and S2 with no gallop. ABDOMEN: Soft. EXTREMITIES: No pitting edema. Claude Pena MD Apr 13, 2019 17:09
--- NOTE | 2019-04-13 17:14 | Diagnostic Imaging Report ---
Clinical Indication: Abnormal upper mediastinum on recent chest radiograph, chest pain. Technique: Spiral acquisitions obtained through the chest. No IV contrast utilized, . Multiplanar reconstructions generated. Total dose length product 818.95 mGycm. CTDIvol(s) 23.8 mGy. Dose reduction achieved using automated exposure control Comparison: No comparison CT scans. Reference made to chest radiograph dated 04/12/2019 Findings: Extensive consolidation of much of the right lower lobe is noted nearly equal extensive consolidation of much of the left lower lobe also noted. There is also considerable lower lobe volume loss, particularly on the left. Patchy consolidation is also seen in the posterior inferior left upper lobe. Mild interstitial congestion is seen in the bilateral upper lobes and right middle lobe. There is considerable narrowing of the bilateral mainstem bronchi. This appears to be due to compression between the descending thoracic aorta and the pulmonary arteries, which are somewhat ectatic. There are bilateral pleural effusions, small, right greater than left The heart is markedly enlarged. There are mitral annular calcifications noted. The main pulmonary artery is dilated, measuring 4 cm in diameter. No pericardial effusion. The ascending thoracic aorta is somewhat ectatic. There is a right-sided aortic arch noted. This accounts for the findings on the recent chest radiograph. No definite mediastinal or hilar mass or adenopathy, although evaluation for such is somewhat limited in the absence of IV contrast. No axillary or chest wall mass or adenopathy. The included portion of the thyroid is unremarkable. Limited images of the upper abdomen are unremarkable. The bones are unremarkable except for degenerative changes of the thoracic spine. Impression: Right-sided aortic arch, presumably accounting for the apparent upper mediastinal widening demonstrated on recent plain radiograph. No evidence of upper mediastinal mass. Extensive bilateral lower lobe consolidation, likely pneumonia, less extensive left upper lobe consolidation. Narrowing of the bilateral mainstem bronchi, compressed due to the ectatic pulmonary arteries as well as the atypical position of the descending thoracic aorta Bilateral pleural effusions Mild upper lobe interstitial congestion Marked cardiomegaly Dilated pulmonary artery, likely indicating pulmonary arterial hypertension Degenerative spondylosis incidentally noted The CT scanner at [facility] is accredited by the [employer] and the scans are performed using protocols designed to limit radiation exposure to as low as reasonably achievable to attain images of sufficient resolution adequate for diagnostic evaluation.
--- NOTE | 2019-04-13 17:18 | Consultation ---
History of Present Illness General Date patient seen: Apr 13, 2019 Chief Complaint: Fever Reason for Consultation: PNA Present Illness Allergies: Coded Allergies: No Known Allergies (Unverified , 04/12/19) Medication History Scheduled Clopidogrel Bisulfate* (Plavix*), 75 MG ORAL DAILY, (Reported) Docusate Sodium* (Docusil*), 100 MG ORAL TWICE A DAY, (Reported) Furosemide* (Lasix*), 40 MG ORAL DAILY, (Reported) Hydralazine Hcl* (Hydralazine Hcl*), 10 MG ORAL EVERY 6 HOURS, (Reported) Insulin Glargine (Lantus), 20 SUBQ BEDTIME, (Reported) Magnesium Hydroxide* (Milk Of Magnesia*), 30 ML ORAL DAILY, (Reported) Metoprolol Tartrate* (Metoprolol Tartrate*), 75 MG ORAL EVERY 12 HOURS, ( Reported) Multivitamins* (Multivitamins*), 1 TAB ORAL DAILY, (Reported) Na Phos,M-B/Na Phos,Di-Ba* (Fleet Enema*), 133 ML RECTAL DAILY, (Reported) Scheduled PRN Acetaminophen* (Acetaminophen 325MG Tablet*), 650 MG ORAL Q6H PRN for Pain Scale (3-5), (Reported) Miscellaneous Medications Bisacodyl (Dulcolax), 10 MG RC, (Reported) Cranberry (Cranberry), 450 MG PO, (Reported) Patient History Healthcare decision maker Cezar Sage (SON) Resuscitation status Full Code Advanced Directive on File Physical Exam Last 24 Hour Vital Signs Date Time Temp Pulse Resp B/P (MAP) Pulse Ox O2 Delivery O2 Flow Rate FiO2 04/13/19 16:00 Nasal Cannula 2.0 04/13/19 16:00 98.5 94 20 122/70 (87) 100 04/13/19 15:50 2.0 04/13/19 15:49 77 04/13/19 12:00 Nasal Cannula 2.0 04/13/19 12:00 97.7 94 20 140/81 (100) 100 04/13/19 12:00 2.0 04/13/19 12:00 95 04/13/19 11:49 140/81 04/13/19 08:57 109 134/80 04/13/19 08:00 98.4 109 24 134/80 (98) 97 04/13/19 08:00 Nasal Cannula 2.0 04/13/19 08:00 114 04/13/19 07:45 2.0 04/13/19 06:58 116 30 97 Facial 30 04/13/19 05:54 144/71 04/13/19 05:05 115 24 98 Facial 30 04/13/19 04:00 Bi-pap 04/13/19 04:00 98.8 111 20 121/82 (95) 97 04/13/19 04:00 118 04/13/19 04:00 30 04/13/19 02:45 120 28 99 Facial 30 04/13/19 01:00 108 24 98 Facial 30 04/13/19 00:00 98.1 103 20 140/90 (107) 97 04/13/19 00:00 Bi-pap 04/13/19 00:00 30 04/13/19 00:00 101 04/12/19 23:55 140/82 04/12/19 22:57 103 24 96 Facial 30 04/12/19 20:59 117 32 97 Facial 30 04/12/19 20:18 137 150/90 04/12/19 20:00 137 04/12/19 20:00 30 04/12/19 20:00 Bi-pap 04/12/19 20:00 98.6 137 20 152/90 (110) 97 04/12/19 19:07 78 26 94 Facial 30 04/12/19 17:53 Bi-pap 4.0 04/12/19 17:45 21 04/12/19 17:44 146/87 Intake and Output 04/12/19 04/13/19 19:00 07:00 Intake Total 4185 ml 1280.0 ml Output Total 300 ml Balance 4185 ml 980.0 ml Intake IV Total 4185 ml 1280.0 ml Output Urine Total 300 ml # Bowel Movements 2 Laboratory Tests Test 04/13/19 03:45 04/13/19 07:26 04/13/19 13:05 White Blood Count 22.0 K/UL (4.8-10.8) H Red Blood Count 2.84 M/UL (4.20-5.40) L Hemoglobin 8.0 G/DL (12.0-16.0) L Hematocrit 24.9 % (37.0-47.0) L Mean Corpuscular Volume 88 FL (80-99) Mean Corpuscular Hemoglobin 28.2 PG (27.0-31.0) Mean Corpuscular Hemoglobin Concent 32.1 G/DL (32.0-36.0) Red Cell Distribution Width 14.3 % (11.6-14.8) Platelet Count 221 K/UL (150-450) Mean Platelet Volume 8.8 FL (6.5-10.1) Neutrophils (%) (Auto) % (45.0-75.0) Lymphocytes (%) (Auto) % (20.0-45.0) Monocytes (%) (Auto) % (1.0-10.0) Eosinophils (%) (Auto) % (0.0-3.0) Basophils (%) (Auto) % (0.0-2.0) Differential Total Cells Counted 100 Neutrophils % (Manual) 81 % (45-75) H Lymphocytes % (Manual) 14 % (20-45) L Monocytes % (Manual) 2 % (1-10) Eosinophils % (Manual) 1 % (0-3) Basophils % (Manual) 0 % (0-2) Band Neutrophils 2 % (0-8) Platelet Estimate Adequate Platelet Morphology Normal Polychromasia 1+ Hypochromasia 2+ Anisocytosis 1+ Spherocytes 1+ Sodium Level 158 MMOL/L (136-145) H Potassium Level 4.2 MMOL/L (3.5-5.1) Chloride Level 122 MMOL/L (98-107) H Carbon Dioxide Level 21 MMOL/L (21-32) Anion Gap 15 mmol/L (5-15) Blood Urea Nitrogen 77 mg/dL (7-18) H Creatinine 2.4 MG/DL (0.55-1.30) H Estimat Glomerular Filtration Rate mL/min (>60) Glucose Level 137 MG/DL (74-106) H Hemoglobin A1c 8.1 % (4.3-6.0) H Uric Acid 9.7 MG/DL (2.6-7.2) H Calcium Level 8.8 MG/DL (8.5-10.1) Phosphorus Level 4.4 MG/DL (2.5-4.9) Magnesium Level 1.9 MG/DL (1.8-2.4) Iron Level 6 ug/dL (50-175) L Total Iron Binding Capacity 143 ug/dL (250-450) L Percent Iron Saturation 4 % (15-50) L Unsaturated Iron Binding 137 ug/dL (112-346) Ferritin 274 NG/ML (8-388) Total Bilirubin 0.2 MG/DL (0.2-1.0) Gamma Glutamyl Transpeptidase 18 U/L (5-85) Aspartate Amino Transf (AST/SGOT) 18 U/L (15-37) Alanine Aminotransferase (ALT/SGPT) 7 U/L (12-78) L Alkaline Phosphatase 73 U/L (46-116) Total Creatine Kinase 35 U/L (26-308) Troponin I 0.184 ng/mL (0.000-0.056) C-Reactive Protein, Quantitative 57.5 mg/dL (0.00-0.90) H Pro-B-Type Natriuretic Peptide 39657 pg/mL (0-125) H Total Protein 6.6 G/DL (6.4-8.2) Albumin 1.6 G/DL (3.4-5.0) L Globulin 5.0 g/dL Albumin/Globulin Ratio 0.3 (1.0-2.7) L Triglycerides Level 73 MG/DL (30-150) Cholesterol Level 83 MG/DL (< 200) LDL Cholesterol 28 mg/dL (<100) HDL Cholesterol 23 MG/DL (40-60) L Cholesterol/HDL Ratio 3.6 (3.3-4.4) Vitamin B12 Level 1534 PG/ML (193-986) H Folate 6.7 NG/ML (8.6-58.9) L Thyroid Stimulating Hormone (TSH) 2.835 uiU/mL (0.358-3.740) Arterial Blood pH 7.391 (7.350-7.450) Arterial Blood Partial Pressure CO2 35.0 mmHg (35.0-45.0) Arterial Blood Partial Pressure O2 96.1 mmHg (75.0-100.0) Arterial Blood HCO3 20.8 mmol/L (22.0-26.0) L Arterial Blood Oxygen Saturation 96.6 % (95-100) Arterial Blood Base Excess -3.7 (-2-2) L Marlo Test Positive Urine Color Pale yellow Urine Appearance Slightly cloudy Urine pH 5 (4.5-8.0) Urine Specific [place] 1.015 (1.005-1.035) Urine Protein 3+ (NEGATIVE) H Urine Glucose (UA) Negative (NEGATIVE) Urine Ketones Negative (NEGATIVE) Urine Blood 4+ (NEGATIVE) H Urine Nitrite Negative (NEGATIVE) Urine Bilirubin Negative (NEGATIVE) Urine Urobilinogen Normal MG/DL (0.0-1.0) Urine Leukocyte Esterase Negative (NEGATIVE) Urine RBC 40-60 /HPF (0 - 2) H Urine WBC 2-4 /HPF (0 - 2) Urine Squamous Epithelial Cells Many /LPF (NONE/OCC) H Urine Amorphous Sediment Many /LPF (NONE) H Urine Bacteria Few /HPF (NONE) Urine Granular Casts 2-4 /LPF (NONE) H Urine Fine Granular Casts 2-4 /LPF (NONE) H Urine Eosinophils None seen (NONE SEEN) Urine Osmolality 432 mOsm/kg (429-449) Urine Random Creatinine Pending Urine Random Microalbumin Pending Urine Random Sodium 86 mmol/L (20-110) Urine Microalbumin/Creatinine Ratio Pending Height (Feet): 5 Height (Inches): 3.00 Weight (Pounds): 145 Medications Current Medications Medications (Trade) Dose Ordered Sig/Kenisha Route PRN Reason Start Time Stop Time Status Last Admin Dose Admin Acetaminophen (Tylenol) 650 mg Q4H PRN ORAL FEVER 04/12/19 14:15 05/12/19 14:14 Albuterol/ Ipratropium (Albuterol/ Ipratropium) 3 ml Q4H PRN HHN Shortness of Breath 04/12/19 14:15 04/17/19 14:14 Cefepime HCl 1 gm/ Dextrose 55 ml @ 110 mls/hr Q24H IVPB 04/13/19 09:00 04/20/19 08:59 04/13/19 08:57 Clopidogrel Bisulfate (Plavix) 75 mg DAILY ORAL 04/13/19 09:00 05/13/19 08:59 04/13/19 08:57 Dextrose 1,000 ml @ 100 mls/hr Q10H IV 04/13/19 09:45 05/13/19 09:44 04/13/19 09:57 Dextrose (Dextrose 50%) 25 ml Q30M PRN IV Hypoglycemia 04/12/19 19:45 05/12/19 19:44 Dextrose (Dextrose 50%) 50 ml Q30M PRN IV Hypoglycemia 04/12/19 19:45 05/12/19 19:44 Heparin Sodium (Porcine) (Heparin 5000 units/ml) 5,000 units EVERY 12 HOURS SUBQ 04/12/19 21:00 05/12/19 20:59 04/12/19 20:48 Hydralazine HCl (Apresoline) 10 mg EVERY 6 HOURS ORAL 04/12/19 18:00 05/12/19 17:59 04/13/19 11:49 Insulin Aspart (NovoLOG) BEFORE MEALS AND HS SUBQ 04/12/19 21:00 05/12/19 20:59 04/13/19 16:11 Lorazepam (Ativan) 0.5 mg Q6H PRN ORAL For Anxiety 04/13/19 16:00 04/20/19 15:59 Memantine (Namenda) 5 mg BID ORAL 04/13/19 18:00 05/13/19 17:59 Metoprolol Tartrate (Lopressor) 75 mg EVERY 12 HOURS ORAL 04/12/19 21:00 05/12/19 20:59 04/13/19 08:57 Morphine Sulfate (Morphine Sulfate) 2 mg Q4H PRN IVP Severe Pain (Pain Scale 7-10) 04/12/19 14:15 04/19/19 14:14 Ondansetron HCl (Zofran) 4 mg Q6H PRN IVP Nausea & Vomiting 04/12/19 14:15 05/12/19 14:14 Polyethylene Glycol (Miralax) 17 gm DAILYPRN PRN ORAL Constipation 04/12/19 14:15 05/12/19 14:14 Vancomycin HCl (Vanco rx to dose) 1 ea DAILY PRN MISC Per rx protocol 04/12/19 17:30 05/12/19 17:29 Assessment/Plan Status Narrative HEMATOLOGY/ONCOLOGY CONSULTATION DATE OF SERVICE: 04/14/2019 REFERRING PHYSICIAN: Jama Keating REASON FOR CONSULT: Anemia, leukocytosis, r/o lung mass HPI: This is a 79-year-old female from [facility] presented with two-day increased shortness of breath, became quite lethargic, came to [place], diagnosed as above. The patient was put on BiPAP due to severe respiratory distress. The patient is currently diagnosed with pneumonia and sepsis, and chest x-ray is showing possible chest mass and being admitted to [facility] for shortly. Currently, calm, BiPAP in place in the ER gurney, not talking much. Hematology/Oncology services have been consulted for the evaluation and management of anemia, leukocytosis, and to r/o a lung mass. Labs have been reviewed and chest CT has been ordered. 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 SOCIAL HISTORY: No smoking. No alcohol. No intravenous drug abuse. FAMILY HISTORY: Noncontributory. ROS: Unable to obtain d/t pt nonverbal PHYSICAL EXAMINATION: GENERAL: BiPAP in place, sleeping in bed, slight short of breath. VITAL SIGNS: Have been reviewed CARDIOVASCULAR: No murmur. LUNGS: Poor exchange. ABDOMEN: Bowel sounds distant. EXTREMITIES: No cyanosis, clubbing, or edema. NEUROLOGIC: Patient is flaccid in bed, probably sedated. MEDICATIONS: albuterol, ceftriaxone. LABORATORY DATA: 04/13: wbc 22 hgb 8 plt 221k ASSESSMENT AND RECOMMENDATIONS # Anemia of chronic disease due to underlying chronic medical issues, multifactorial --> Anemia workup has been ordered and reviewed. --> Ferritin 274, iron 6, tibc 143 --> No evidence of hemolysis is noted, peripheral smear has been reviewed. --> Hgb goal >7. Transfuse prn. --> Epogen or iron at this time is not particularly indicated --> Medications have been reviewed --> low threshold for gi evaluation in case has occult + # Lung mass. First noted on CXR. --> Ct chest has been ordered and reviewed. CT reveals no mass. --> hold off on any tumor marker testing # Leukocytosis/elevated white blood cell count, unspecified likely related to underlying sepsis due to pna confirmed by CT chest and CXR --> have reviewed peripheral smear and bandemia/neutrophilia noted --> continue antibiotics if they have been started by ID team --> monitor for resolution # Respiratory distress. BiPAP per Pulmonary. # Sepsis d/t pna and uti. Antibiotics per Infectious Disease. # Renal failure. Nephro is following, appreciate recs. # Elevated troponin. Recs per cardiology # Malnutrition. Dietary to follow. The time this note is entered does not reflect the time the patient was examined. I greatly appreciate the consultation. Steven Nroton MD Apr 13, 2019 17:18
--- NOTE | 2019-04-13 17:45 | Consultation ---
DATE OF CONSULTATION: 04/13/2019 HISTORY OF PRESENT ILLNESS: This is a 79-year-old female patient with sepsis. This is a female patient, who is admitted to the hospital at [facility]. The patient was transferred from [facility]. The reason why she was transferred over is because she has shortness of breath, pneumonia, and sepsis, but she was ____ at [facility] and she presented with shortness of breath, she became lethargic, and so, she came to the [facility]. She is diagnosed with pneumonia, sepsis, and she is a very poor historian. She is confused and disorganized. She has got no logical plan for her own self-care and she has got feelings of helplessness, hopelessness, low energy, poor appetite, and loss of interest in activity. That is why, she does require acute psychiatric inpatient treatment at this time, very confused, disorganized, and her cognition has declined significantly below the baseline, but she is a very poor historian and unable to give me any detailed history, so a lot of information had to be obtained through chart review. PAST MEDICAL HISTORY: She has pneumonia, sepsis, shortness of breath, and rule out chest mass. She also has hypertension and chronic obstructive pulmonary disease. ALLERGIES: No known drug allergies. PSYCHOTROPIC MEDICATIONS ON ADMISSION: She is currently not on any psychotropic medications at this time. SUBSTANCE ABUSE HISTORY: No history of any drug and alcohol use. PAIN ASSESSMENT: A 0/10. DEVELOPMENTAL PROBLEMS: Denies. FAMILY PSYCHIATRIC HISTORY: No known family psychiatric history. SOCIAL HISTORY: She lives at a correction. Financially supported by [employer] and Medicare. PSYCHIATRIC HISTORY: History of major depressive disorder, severe, recurrent with psychotic features, rule out dementia with psychosis. She has been seen by Psychiatry at her correction. STRENGTHS: She is motivated to get better and she has a place to live. WEAKNESSES: She is impulsive and minimal support system. MENTAL STATUS EXAMINATION: A 79-year-old female. Her appearance is disheveled. Her attitude is irritable and agitated. Her affect is flat. Intellect poor because she does not know current events and does not know last four Presidents. Mood is depressed and anxious. Motor activity, psychomotor agitation. Attention span is poor because she cannot do serial sevens or spell world backwards. Orientation x2. She is oriented to person only, but not time, place, and situation. Speech is low volume and slurred. Thought process is disorganized and illogical. Thought content, she has paranoid delusions. Insight and judgment is poor. DIAGNOSIS: Major depressive disorder, severe, recurrent with psychotic features, rule out dementia with psychosis. Medical includes hypertension, chronic obstructive pulmonary disease, shortness of breath, acute renal failure, diabetic neuropathy, status post CVA, diabetes, right hemiplegia, status post aspiration pneumonia, psychosocial stressors, and financial function impairment, severe. PLAN: Treat this patient with Ativan at a dose of 0.5 mg every 6 hours p.r.n. anxiety and agitation and then also treat this patient with a medication regimen of Namenda 5 mg twice a day prevent any further decline in her cognition. Provided her with 20 minutes of behavioral management. I encouraged her to interact appropriately with staff and the patient's estimated length of stay is 3 to 7 days. Prognosis is fair. She will continue to be followed by Psychiatry throughout the hospital course. Chart reviewed and discussed with staff. Seen and assessed at bedside. I would like to, thank Dr. Jama Keating, for this interesting consultation. Omar Glover M.D. DR: PRAVEENA JOB#: [id number] CC:
--- NOTE | 2019-04-13 19:05 | NUR ---
HAND-OFF: Report given to HORTENCIA Bae. Stable condition.
--- NOTE | 2019-04-13 19:15 | NUR ---
NURSE NOTES: Received patient from HORTENCIA Hooks. patient is A/O X1, no s/sx of pain at this time. patient is on 2 L O2 via NC. no s/sx of respiratory distress noted at this time. F/C is patent, intact and draining well. IV sites are patent and intact, running fluids at prescribed rate. bed in lowest position and locked, siderails up X3, call light within reach. will continue to monitor.
[2019-04-13 20:00] VITALS: BP 119/68
--- NOTE | 2019-04-13 23:50 | Consultation ---
History of Present Illness General Date patient seen: Apr 13, 2019 Chief Complaint: AMS Referring physician: Dr Sudhakar Keating Present Illness HPI Marlene nur is a 79-year-old female with a PMH of DM, HTN, CVA/TIA, hemiplegia, chronic renal diseased, and aphasia from [facility] who presented with two-day increased shortness of breath, became quite lethargic , and came to [facility]. Chest Xray showed pneumonia and possible chest mass She was started on BiPAP due to severe respiratory distress and admitted to [facility] for further evaluation and management. Neurological consultation has been requested for AMS/ Lethargy Allergies: Coded Allergies: No Known Allergies (Unverified , 04/12/19) Medication History Scheduled Clopidogrel Bisulfate* (Plavix*), 75 MG ORAL DAILY, (Reported) Docusate Sodium* (Docusil*), 100 MG ORAL TWICE A DAY, (Reported) Furosemide* (Lasix*), 40 MG ORAL DAILY, (Reported) Hydralazine Hcl* (Hydralazine Hcl*), 10 MG ORAL EVERY 6 HOURS, (Reported) Insulin Glargine (Lantus), 20 SUBQ BEDTIME, (Reported) Magnesium Hydroxide* (Milk Of Magnesia*), 30 ML ORAL DAILY, (Reported) Metoprolol Tartrate* (Metoprolol Tartrate*), 75 MG ORAL EVERY 12 HOURS, ( Reported) Multivitamins* (Multivitamins*), 1 TAB ORAL DAILY, (Reported) Na Phos,M-B/Na Phos,Di-Ba* (Fleet Enema*), 133 ML RECTAL DAILY, (Reported) Scheduled PRN Acetaminophen* (Acetaminophen 325MG Tablet*), 650 MG ORAL Q6H PRN for Pain Scale (3-5), (Reported) Miscellaneous Medications Bisacodyl (Dulcolax), 10 MG RC, (Reported) Cranberry (Cranberry), 450 MG PO, (Reported) Patient History Limited by: medical condition History Provided By: Medical Record Healthcare decision maker Cezar Sage (SON) Resuscitation status Full Code Advanced Directive on File Past Medical/Surgical History Past Medical/Surgical History: (1) Malnutrition (2) Anemia in chronic kidney disease (CKD) (3) Pulmonary hypertension (4) History of CVA (cerebrovascular accident) (5) CAD (coronary artery disease) (6) Right hemiplegia (7) Diabetes mellitus (8) Hypertensive heart disease (9) 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 (10) Nosocomial pneumonia Review of Systems Constitutional: Denies: no symptoms, see HPI, chills, sweats, fever, malaise, weakness, other Eye: Denies: no symptoms, see HPI, eye pain, blurred vision, tearing, double vision, nose pain, nose congestion, acuity changes, discharge, other ENT: Denies: no symptoms, see HPI, ear pain, ear discharge, nose pain, nose congestion, throat pain, throat swelling, mouth pain, hearing loss, nasal discharge, other Respiratory: Denies: no symptoms, see HPI, cough, orthopnea, shortness of breath, stridor, wheezing, DOWNING, sputum, other Cardiovascular: Denies: no symptoms, see HPI, chest pain, edema, palpitations, syncope, PND, other Gastrointestinal: Denies: no symptoms, see HPI, abdominal pain, constipation, diarrhea, nausea, vomiting, melena, hematemesis, other Genitourinary: Denies: no symptoms, see HPI, discharge, dysuria, frequency, hematuria, pain, retention, incontinence, urgency, vag bleed/dc, other Musculoskeletal: Denies: no symptoms, see HPI, back pain, gout, joint pain, joint swelling, muscle pain, muscle stiffness, other Skin: Denies: no symptoms, see HPI, rash, change in color, change in hair/nails , dryness, lesions, other Psychiatric: Denies: no symptoms, see HPI, prior hx, anxiety, depressed feelings, emotional problems, SI, HI, hallucinations, other Neurological: Denies: no symptoms, see HPI, headache, numbness, paresthesia, seizure, tingling, tremors, focal weakness, syncope, dizziness, other Endocrine: Denies: no symptoms, see HPI, excessive sweating, flushing, intolerance to temperature, increased thirst, increased urine, unexplained weight loss, other Hematologic/Lymphatic: Denies: no symptoms, see HPI, anemia, blood clots, easy bleeding, easy bruising, swollen glands, diathesis, other All Other Systems: negative except mentioned in HPI ROS Narrative Unable to obtain from patient at this time. Physical Exam General Appearance: WD/WN, no apparent distress, lethargic, confused, other Lines, tubes and drains: peripheral HEENT: normocephalic, atraumatic, anicteric, mucous membranes moist, PERRL, EOMI, pharynx normal, supple, no JVD Neck: normal alignment, normal inspection Respiratory/Chest: normal breath sounds, no respiratory distress, no accessory muscle use Cardiovascular/Chest: normal peripheral pulses Extremities: other Skin Exam: normal pigmentation, warm/dry Neurologic: alert, responsive, motor weakness, disoriented, unresponsiveness, aphasia, other Musculoskeletal: normal muscle bulk, atrophy Physical Exam Narrative Patient is nonverbal at baseline with contracture and right hemiplegia from prior stroke. Responds to her name, follows simple commands while on BIPAP ventilation Last 24 Hour Vital Signs Date Time Temp Pulse Resp B/P (MAP) Pulse Ox O2 Delivery O2 Flow Rate FiO2 04/13/19 22:30 86 27 98 Facial 30 04/13/19 20:59 89 119/68 04/13/19 20:00 2.0 04/13/19 20:00 Nasal Cannula 2.0 04/13/19 20:00 83 04/13/19 20:00 98.9 89 24 119/68 (85) 99 04/13/19 17:07 122/70 04/13/19 16:00 Nasal Cannula 2.0 04/13/19 16:00 98.5 94 20 122/70 (87) 100 04/13/19 15:50 2.0 04/13/19 15:49 77 04/13/19 12:00 Nasal Cannula 2.0 04/13/19 12:00 97.7 94 20 140/81 (100) 100 04/13/19 12:00 2.0 04/13/19 12:00 95 04/13/19 11:49 140/81 04/13/19 08:57 109 134/80 04/13/19 08:00 98.4 109 24 134/80 (98) 97 04/13/19 08:00 Nasal Cannula 2.0 04/13/19 08:00 114 04/13/19 07:45 2.0 04/13/19 06:58 116 30 97 Facial 30 04/13/19 05:54 144/71 04/13/19 05:05 115 24 98 Facial 30 04/13/19 04:00 Bi-pap 04/13/19 04:00 98.8 111 20 121/82 (95) 97 04/13/19 04:00 118 04/13/19 04:00 30 04/13/19 02:45 120 28 99 Facial 30 04/13/19 01:00 108 24 98 Facial 30 04/13/19 00:00 98.1 103 20 140/90 (107) 97 04/13/19 00:00 Bi-pap 04/13/19 00:00 30 04/13/19 00:00 101 04/12/19 23:55 140/82 Intake and Output 04/12/19 04/13/19 19:00 07:00 Intake Total 4185 ml 1280.0 ml Output Total 300 ml Balance 4185 ml 980.0 ml Intake IV Total 4185 ml 1280.0 ml Output Urine Total 300 ml # Bowel Movements 2 Laboratory Tests Test 04/13/19 03:45 04/13/19 07:26 04/13/19 13:05 White Blood Count 22.0 K/UL (4.8-10.8) H Red Blood Count 2.84 M/UL (4.20-5.40) L Hemoglobin 8.0 G/DL (12.0-16.0) L Hematocrit 24.9 % (37.0-47.0) L Mean Corpuscular Volume 88 FL (80-99) Mean Corpuscular Hemoglobin 28.2 PG (27.0-31.0) Mean Corpuscular Hemoglobin Concent 32.1 G/DL (32.0-36.0) Red Cell Distribution Width 14.3 % (11.6-14.8) Platelet Count 221 K/UL (150-450) Mean Platelet Volume 8.8 FL (6.5-10.1) Neutrophils (%) (Auto) % (45.0-75.0) Lymphocytes (%) (Auto) % (20.0-45.0) Monocytes (%) (Auto) % (1.0-10.0) Eosinophils (%) (Auto) % (0.0-3.0) Basophils (%) (Auto) % (0.0-2.0) Differential Total Cells Counted 100 Neutrophils % (Manual) 81 % (45-75) H Lymphocytes % (Manual) 14 % (20-45) L Monocytes % (Manual) 2 % (1-10) Eosinophils % (Manual) 1 % (0-3) Basophils % (Manual) 0 % (0-2) Band Neutrophils 2 % (0-8) Platelet Estimate Adequate Platelet Morphology Normal Polychromasia 1+ Hypochromasia 2+ Anisocytosis 1+ Spherocytes 1+ Sodium Level 158 MMOL/L (136-145) H Potassium Level 4.2 MMOL/L (3.5-5.1) Chloride Level 122 MMOL/L (98-107) H Carbon Dioxide Level 21 MMOL/L (21-32) Anion Gap 15 mmol/L (5-15) Blood Urea Nitrogen 77 mg/dL (7-18) H Creatinine 2.4 MG/DL (0.55-1.30) H Estimat Glomerular Filtration Rate mL/min (>60) Glucose Level 137 MG/DL (74-106) H Hemoglobin A1c 8.1 % (4.3-6.0) H Uric Acid 9.7 MG/DL (2.6-7.2) H Calcium Level 8.8 MG/DL (8.5-10.1) Phosphorus Level 4.4 MG/DL (2.5-4.9) Magnesium Level 1.9 MG/DL (1.8-2.4) Iron Level 6 ug/dL (50-175) L Total Iron Binding Capacity 143 ug/dL (250-450) L Percent Iron Saturation 4 % (15-50) L Unsaturated Iron Binding 137 ug/dL (112-346) Ferritin 274 NG/ML (8-388) Total Bilirubin 0.2 MG/DL (0.2-1.0) Gamma Glutamyl Transpeptidase 18 U/L (5-85) Aspartate Amino Transf (AST/SGOT) 18 U/L (15-37) Alanine Aminotransferase (ALT/SGPT) 7 U/L (12-78) L Alkaline Phosphatase 73 U/L (46-116) Total Creatine Kinase 35 U/L (26-308) Troponin I 0.184 ng/mL (0.000-0.056) C-Reactive Protein, Quantitative 57.5 mg/dL (0.00-0.90) H Pro-B-Type Natriuretic Peptide 26155 pg/mL (0-125) H Total Protein 6.6 G/DL (6.4-8.2) Albumin 1.6 G/DL (3.4-5.0) L Globulin 5.0 g/dL Albumin/Globulin Ratio 0.3 (1.0-2.7) L Triglycerides Level 73 MG/DL (30-150) Cholesterol Level 83 MG/DL (< 200) LDL Cholesterol 28 mg/dL (<100) HDL Cholesterol 23 MG/DL (40-60) L Cholesterol/HDL Ratio 3.6 (3.3-4.4) Vitamin B12 Level 1534 PG/ML (193-986) H Folate 6.7 NG/ML (8.6-58.9) L Thyroid Stimulating Hormone (TSH) 2.835 uiU/mL (0.358-3.740) Arterial Blood pH 7.391 (7.350-7.450) Arterial Blood Partial Pressure CO2 35.0 mmHg (35.0-45.0) Arterial Blood Partial Pressure O2 96.1 mmHg (75.0-100.0) Arterial Blood HCO3 20.8 mmol/L (22.0-26.0) L Arterial Blood Oxygen Saturation 96.6 % (95-100) Arterial Blood Base Excess -3.7 (-2-2) L Marlo Test Positive Urine Color Pale yellow Urine Appearance Slightly cloudy Urine pH 5 (4.5-8.0) Urine Specific [place] 1.015 (1.005-1.035) Urine Protein 3+ (NEGATIVE) H Urine Glucose (UA) Negative (NEGATIVE) Urine Ketones Negative (NEGATIVE) Urine Blood 4+ (NEGATIVE) H Urine Nitrite Negative (NEGATIVE) Urine Bilirubin Negative (NEGATIVE) Urine Urobilinogen Normal MG/DL (0.0-1.0) Urine Leukocyte Esterase Negative (NEGATIVE) Urine RBC 40-60 /HPF (0 - 2) H Urine WBC 2-4 /HPF (0 - 2) Urine Squamous Epithelial Cells Many /LPF (NONE/OCC) H Urine Amorphous Sediment Many /LPF (NONE) H Urine Bacteria Few /HPF (NONE) Urine Granular Casts 2-4 /LPF (NONE) H Urine Fine Granular Casts 2-4 /LPF (NONE) H Urine Eosinophils None seen (NONE SEEN) Urine Osmolality 432 mOsm/kg (429-449) Urine Random Creatinine Pending Urine Random Microalbumin Pending Urine Random Sodium 86 mmol/L (20-110) Urine Microalbumin/Creatinine Ratio Pending Height (Feet): 5 Height (Inches): 3.00 Weight (Pounds): 145 Medications Current Medications Medications (Trade) Dose Ordered Sig/Kenisha Route PRN Reason Start Time Stop Time Status Last Admin Dose Admin Acetaminophen (Tylenol) 650 mg Q4H PRN ORAL FEVER 04/12/19 14:15 05/12/19 14:14 Albuterol/ Ipratropium (Albuterol/ Ipratropium) 3 ml Q4H PRN HHN Shortness of Breath 04/12/19 14:15 04/17/19 14:14 Cefepime HCl 1 gm/ Dextrose 55 ml @ 110 mls/hr Q24H IVPB 04/13/19 09:00 04/20/19 08:59 04/13/19 08:57 Clopidogrel Bisulfate (Plavix) 75 mg DAILY ORAL 04/13/19 09:00 05/13/19 08:59 04/13/19 08:57 Dextrose 1,000 ml @ 100 mls/hr Q10H IV 04/13/19 09:45 05/13/19 09:44 04/13/19 20:03 Dextrose (Dextrose 50%) 25 ml Q30M PRN IV Hypoglycemia 04/12/19 19:45 05/12/19 19:44 Dextrose (Dextrose 50%) 50 ml Q30M PRN IV Hypoglycemia 04/12/19 19:45 05/12/19 19:44 Heparin Sodium (Porcine) (Heparin 5000 units/ml) 5,000 units EVERY 12 HOURS SUBQ 04/12/19 21:00 05/12/19 20:59 04/12/19 20:48 Hydralazine HCl (Apresoline) 10 mg EVERY 6 HOURS ORAL 04/12/19 18:00 05/12/19 17:59 04/13/19 17:07 Insulin Aspart (NovoLOG) BEFORE MEALS AND HS SUBQ 04/12/19 21:00 05/12/19 20:59 04/13/19 21:02 Lorazepam (Ativan) 0.5 mg Q6H PRN ORAL For Anxiety 04/13/19 16:00 04/20/19 15:59 Memantine (Namenda) 5 mg BID ORAL 04/13/19 18:00 05/13/19 17:59 04/13/19 17:07 Metoprolol Tartrate (Lopressor) 75 mg EVERY 12 HOURS ORAL 04/12/19 21:00 05/12/19 20:59 04/13/19 20:59 Morphine Sulfate (Morphine Sulfate) 2 mg Q4H PRN IVP Severe Pain (Pain Scale 7-10) 04/12/19 14:15 04/19/19 14:14 Ondansetron HCl (Zofran) 4 mg Q6H PRN IVP Nausea & Vomiting 04/12/19 14:15 05/12/19 14:14 Polyethylene Glycol (Miralax) 17 gm DAILYPRN PRN ORAL Constipation 04/12/19 14:15 05/12/19 14:14 Vancomycin HCl (Vanco rx to dose) 1 ea DAILY PRN MISC Per rx protocol 04/12/19 17:30 05/12/19 17:29 Assessment/Plan Problem List: (1) Respiratory distress ICD Codes: R06.03 - Acute respiratory distress SNOMED: 447248986 (2) Malnutrition ICD Codes: E46 - Unspecified protein-calorie malnutrition SNOMED: 04529208 (3) UTI (urinary tract infection) ICD Codes: N39.0 - Urinary tract infection, site not specified SNOMED: 51338391 (4) Diabetic nephropathy ICD Codes: E11.21 - Type 2 diabetes mellitus with diabetic nephropathy SNOMED: 199881432 (5) Renal failure (ARF), acute on chronic ICD Codes: N17.9 - Acute kidney failure, unspecified; N18.9 - Chronic kidney disease, unspecified SNOMED: 542802273 (6) Anemia in chronic kidney disease (CKD) ICD Codes: N18.9 - Chronic kidney disease, unspecified; D63.1 - Anemia in chronic kidney disease SNOMED: 984661556 (7) Pulmonary hypertension ICD Codes: I27.20 - Pulmonary hypertension, unspecified SNOMED: 80886015 (8) Hypernatremia ICD Codes: E87.0 - Hyperosmolality and hypernatremia SNOMED: 437348730 (9) Sepsis ICD Codes: A41.9 - Sepsis, unspecified organism SNOMED: 44358525 (10) Pneumonia ICD Codes: J18.9 - Pneumonia, unspecified organism SNOMED: 878801090 (11) History of CVA (cerebrovascular accident) ICD Codes: Z86.73 - Personal history of transient ischemic attack (TIA), and cerebral infarction without residual deficits SNOMED: 429772383 (12) CAD (coronary artery disease) ICD Codes: I25.10 - Atherosclerotic heart disease of [place] coronary artery without angina pectoris SNOMED: 93733821 (13) Right hemiplegia ICD Codes: G81.91 - Hemiplegia, unspecified affecting right dominant side SNOMED: 211657877 (14) Diabetes mellitus ICD Codes: E11.9 - Type 2 diabetes mellitus without complications SNOMED: 09089590 (15) Hypertensive heart disease ICD Codes: I11.9 - Hypertensive heart disease without heart failure SNOMED: 21420430 (16) 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 ICD Codes: E11.22 - Type 2 diabetes mellitus with diabetic chronic kidney disease; N18.4 - Chronic kidney disease, stage 4 (severe) SNOMED: 17894858, 049455166, 007792430 (17) Nosocomial pneumonia ICD Codes: J18.9 - Pneumonia, unspecified organism; Y95 - Nosocomial condition SNOMED: 667542146 (18) At high risk for aspiration ICD Codes: Z91.89 - Other specified personal risk factors, not elsewhere classified SNOMED: 687179450 (19) Acute metabolic encephalopathy ICD Codes: G93.41 - Metabolic encephalopathy SNOMED: 44519677, 127225591 Status: stable Assessment/Plan: Q4 hour neuro obs Na 135-145 ABx as per PMT Maintain good sleep hygiene for patient by making room dark and quiet at night, minimizing nonessential care during these hours. Consider enteral feeding. Start Folate 1mg QD Check Swallow Maintain normoglycemia with ISS PT Eval when able. Phyllis Diop N.P. Apr 13, 2019 23:50
[2019-04-14] VITALS: BP 118/69
[2019-04-14] MEDS: HydrALAZINE 10mg Tab ORAL SCH ×3 (00:22→11:37)
--- NOTE | 2019-04-14 00:30 | NUR ---
NURSE NOTES: patient placed on BiPAP. BiPAP settings 15/5 FiO2: 30%. tolerating well. cardiac care nurse shows sinus rhythm. vital signs stable. will continue to monitor.
[2019-04-14 04:00] VITALS: BP 119/68
[2019-04-14 05:46] LABS: HEMATOCRIT 23.6 % (37.0-47.0); HEMOGLOBIN 7.4 G/DL (12.0-16.0); MEAN CORPUSCULAR VOLUME 88 FL (80-99); PLATELET COUNT 196 K/UL (150-450); RED BLOOD COUNT 2.69 M/UL (4.20-5.40); RED CELL DISTRIBUTION WIDTH 14.4 % (11.6-14.8)
[2019-04-14 05:55] LABS: INR 1.2 (0.9-1.1)
[2019-04-14] MEDS: NovoLOG Insulin Flexpen SUBQ SCH ×4 (05:59→20:01)
[2019-04-14 06:26] LABS: ALANINE AMINOTRANSFERASE < 6 U/L (12-78); ALBUMIN 1.2 G/DL (3.4-5.0); ALBUMIN/GLOBULIN RATIO 0.2 (1.0-2.7); ALKALINE PHOSPHATASE 84 U/L (46-116); ANION GAP 14 mmol/L (5-15); ASPARTATE AMINO TRANSFERASE 13 U/L (15-37); BILIRUBIN,TOTAL 0.2 MG/DL (0.2-1.0); BLOOD UREA NITROGEN 66 mg/dL (7-18); CALCIUM 8.4 MG/DL (8.5-10.1); CARBON DIOXIDE 21 MMOL/L (21-32); CHLORIDE 115 MMOL/L (98-107); CREATININE 2.1 MG/DL (0.55-1.30); POTASSIUM 3.6 MMOL/L (3.5-5.1); SODIUM 150 MMOL/L (136-145)
--- NOTE | 2019-04-14 06:50 | NUR ---
NURSE NOTES: informed MD regarding patient's current Hgb level. per MD, order 1 unit of PRBCs. will input order.
[2019-04-14 06:59] LABS: % IRON SATURATION 9 % (15-50); IRON 10 ug/dL (50-175); LACTATE DEHYDROGENASE 224 U/L (81-234); PHOSPHORUS 3.8 MG/DL (2.5-4.9); TOTAL IRON BINDING CAPACITY 109 ug/dL (250-450)
--- NOTE | 2019-04-14 07:30 | NUR ---
HAND-OFF: Report given to HORTENCIA Hooks. patient is in stable condition.
--- NOTE | 2019-04-14 07:33 | NUR ---
NURSE NOTES: Report received from HORTENCIA Bae. Observed patient in bed sleeping. Arousable by voice and touching. Non-verbal but able to follow simple command. No s/s of pain at this time. IVF running at prescribed rate. On 2L of oxygen via N/C with no acute distress noted. Bed in lowest position. Call light within reach. Will continue to monitor.
[2019-04-14 08:00] VITALS: BP 115/79
[2019-04-14] MEDS: Cefepime 1gm in D5W 55ml IVPB SCH (08:18)
[2019-04-14] MEDS: Memantine 5 MG TAB ORAL SCH ×2 (08:19→17:00)
[2019-04-14] MEDS: Metoprolol Tartrate 50mg tab ORAL SCH (08:19)
[2019-04-14] MEDS ORDERED: Vancomycin 1gm/D5W 275ml IVPB ONE ×2 (09:00)
--- NOTE | 2019-04-14 10:40 | NUR ---
*-* INSURANCE *-* UPDATED CLINICALS HAVE BEEN FAXED TO: [facility] white# [id number] P: [phone] F: [phone] (FAX CLINICALS)
--- NOTE | 2019-04-14 11:24 | Pulmonology Progress Note ---
Assessment/Plan Problems: (1) Nosocomial pneumonia (2) Sepsis (3) Acute metabolic encephalopathy (4) At high risk for aspiration (5) 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 (6) Diabetes mellitus (7) History of CVA (cerebrovascular accident) (8) CAD (coronary artery disease) (9) Right hemiplegia (10) Hypertensive heart disease Assessment/Plan vale culture, still pending, wbc still high aggressive IV fluids with D5W check electrolytes daily, Na is getting better broad spectrum abx as per ID renal studies reviewed, renal US negative for acute changes f/u urine electrolytes sliding scale with Novolog coverage swallow study done, she failed dvt prophylaxis CT chest reviewed, extensive infiltrate in lower will do positional Chest pt in prone position Subjective Interval Events: awake, Allergies: Coded Allergies: No Known Allergies (Unverified , 04/12/19) Objective Last 24 Hour Vital Signs Date Time Temp Pulse Resp B/P (MAP) Pulse Ox O2 Delivery O2 Flow Rate FiO2 04/14/19 08:19 90 115/79 04/14/19 08:00 87 04/14/19 08:00 99.0 90 24 115/79 (91) 99 04/14/19 07:55 Nasal Cannula 2.0 04/14/19 07:54 2.0 04/14/19 07:10 98 24 99 2.0 28 04/14/19 05:58 122/68 04/14/19 05:16 108 32 98 Full Face 30 04/14/19 04:00 98.2 75 20 119/68 (85) 98 04/14/19 04:00 Bi-pap 04/14/19 04:00 30 04/14/19 04:00 86 04/14/19 03:30 86 26 99 Full Face 30 04/14/19 01:30 72 12 98 Facial 30 04/14/19 00:22 120/73 04/14/19 00:00 98.1 75 20 118/69 (85) 99 04/14/19 00:00 Bi-pap 04/14/19 00:00 76 04/13/19 22:30 86 27 98 Facial 30 04/13/19 20:59 89 119/68 04/13/19 20:00 2.0 04/13/19 20:00 Nasal Cannula 2.0 04/13/19 20:00 83 04/13/19 20:00 98.9 89 24 119/68 (85) 99 04/13/19 17:07 122/70 04/13/19 16:00 Nasal Cannula 2.0 04/13/19 16:00 98.5 94 20 122/70 (87) 100 04/13/19 15:50 2.0 04/13/19 15:49 77 04/13/19 12:00 Nasal Cannula 2.0 04/13/19 12:00 97.7 94 20 140/81 (100) 100 04/13/19 12:00 2.0 04/13/19 12:00 95 04/13/19 11:49 140/81 Intake and Output 04/13/19 04/14/19 18:59 06:59 Intake Total 1180 ml 1100 ml Output Total 445 ml 500 ml Balance 735 ml 600 ml Intake IV Total 1180 ml 1100 ml Output Urine Total 445 ml 500 ml General Appearance: WD/WN HEENT: normocephalic, anicteric Respiratory/Chest: chest wall non-tender, lungs clear Breasts: no masses Cardiovascular: normal peripheral pulses, regularly irregular Abdomen: normal bowel sounds Extremities: no cyanosis Skin: no rash Microbiology Date/Time Source Procedure Growth Status 04/12/19 11:05 Blood Blood Culture - Preliminary NO GROWTH AFTER 24 HOURS Resulted 04/12/19 10:50 Blood Blood Culture - Preliminary NO GROWTH AFTER 24 HOURS Resulted 04/13/19 08:15 Sputum Gram Stain Pending Resulted 04/13/19 08:15 Sputum Sputum Culture - Preliminary NO GROWTH Resulted 04/12/19 14:10 Nasal Nares MRSA Culture - Final NO METHICILLIN RESISTANT STAPH AUREUS... Complete 04/12/19 11:49 Nasal Nares - Final Complete 04/12/19 11:49 Nasal Nares - Final Complete 04/12/19 14:10 Rectum VRE Culture - Final NO VANCOMYCIN RESISTANT ENTEROCOCCUS ... Complete 04/12/19 14:10 Rectum - Final NO CARBAPENEM-RESISTANT ENTEROBACTERI... Complete Laboratory Tests 04/13/19 13:05: Urine Color Pale yellow, Urine Appearance Slightly cloudy, Urine pH 5, Urine Specific [place] 1.015, Urine Protein 3+H, Urine Glucose (UA) Negative, Urine Ketones Negative, Urine Blood 4+H, Urine Nitrite Negative, Urine Bilirubin Negative, Urine Urobilinogen Normal, Urine Leukocyte Esterase Negative, Urine RBC 40-60H, Urine WBC 2-4, Urine Squamous Epithelial Cells ManyH, Urine Amorphous Sediment ManyH, Urine Bacteria Few, Urine Granular Casts 2-4H, Urine Fine Granular Casts 2-4H, Urine Eosinophils None seen, Urine Osmolality 432, Urine Random Creatinine [Pending], Urine Random Microalbumin [Pending], Urine Random Sodium 86, Urine Microalbumin/Creatinine Ratio [Pending] 04/14/19 03:30: White Blood Count 17.0H, Red Blood Count 2.69L, Hemoglobin 7.4L, Hematocrit 23.6L, Mean Corpuscular Volume 88, Mean Corpuscular Hemoglobin 27.6, Mean Corpuscular Hemoglobin Concent 31.4L, Red Cell Distribution Width 14.4, Platelet Count 196, Mean Platelet Volume 9.4, Neutrophils (%) (Auto) , Lymphocytes (%) (Auto) , Monocytes (%) (Auto) , Eosinophils (%) (Auto) , Basophils (%) (Auto) , Differential Total Cells Counted 100, Neutrophils % ( Manual) 89H, Lymphocytes % (Manual) 4L, Monocytes % (Manual) 3, Eosinophils % ( Manual) 0, Basophils % (Manual) 0, Band Neutrophils 4, Platelet Estimate Adequate, Platelet Morphology Normal, Hypochromasia 1+, Erythrocyte Sedimentation Rate 137H, Reticulocyte Count [Pending], Prothrombin Time 12.7H, Prothromb Time International Ratio 1.2H, Activated Partial Thromboplast Time 37H , Sodium Level 150H, Potassium Level 3.6, Chloride Level 115H, Carbon Dioxide Level 21, Anion Gap 14, Blood Urea Nitrogen 66H, Creatinine 2.1H, Estimat Glomerular Filtration Rate , Glucose Level 190H, Uric Acid 8.8H, Calcium Level 8.4L, Phosphorus Level 3.8, Magnesium Level 1.9, Iron Level 10L, Total Iron Binding Capacity 109L, Percent Iron Saturation 9L, Unsaturated Iron Binding 99L , Total Bilirubin 0.2, Aspartate Amino Transf (AST/SGOT) 13L, Alanine Aminotransferase (ALT/SGPT) < 6L, Alkaline Phosphatase 84, Lactate Dehydrogenase 224, Troponin I 0.084H, Total Protein 6.5, Albumin 1.2L, Globulin 5.3, Albumin/Globulin Ratio 0.2L, Carcinoembryonic Antigen [Pending], Vitamin B12 Level > 2000H, Folate 4.7L, Random Vancomycin Level 10.5 04/14/19 08:30: Stool Occult Blood [Pending] Current Medications Medications (Trade) Dose Ordered Sig/Kenisha Route PRN Reason Start Time Stop Time Status Last Admin Dose Admin Acetaminophen (Tylenol) 650 mg Q4H PRN ORAL FEVER 04/12/19 14:15 05/12/19 14:14 Albuterol/ Ipratropium (Albuterol/ Ipratropium) 3 ml Q4H PRN HHN Shortness of Breath 04/12/19 14:15 04/17/19 14:14 Cefepime HCl 1 gm/ Dextrose 55 ml @ 110 mls/hr Q24H IVPB 04/13/19 09:00 04/20/19 08:59 04/14/19 08:18 Clopidogrel Bisulfate (Plavix) 75 mg DAILY ORAL 04/13/19 09:00 05/13/19 08:59 04/13/19 08:57 Dextrose 1,000 ml @ 100 mls/hr Q10H IV 04/13/19 09:45 05/13/19 09:44 04/14/19 06:07 Dextrose (Dextrose 50%) 25 ml Q30M PRN IV Hypoglycemia 04/12/19 19:45 05/12/19 19:44 Dextrose (Dextrose 50%) 50 ml Q30M PRN IV Hypoglycemia 04/12/19 19:45 05/12/19 19:44 Hydralazine HCl (Apresoline) 10 mg EVERY 6 HOURS ORAL 04/12/19 18:00 05/12/19 17:59 04/14/19 05:58 Insulin Aspart (NovoLOG) BEFORE MEALS AND HS SUBQ 04/12/19 21:00 05/12/19 20:59 04/14/19 05:59 Lorazepam (Ativan) 0.5 mg Q6H PRN ORAL For Anxiety 04/13/19 16:00 04/20/19 15:59 Memantine (Namenda) 5 mg BID ORAL 04/13/19 18:00 05/13/19 17:59 04/14/19 08:19 Metoprolol Tartrate (Lopressor) 75 mg EVERY 12 HOURS ORAL 04/12/19 21:00 05/12/19 20:59 04/14/19 08:19 Morphine Sulfate (Morphine Sulfate) 2 mg Q4H PRN IVP Severe Pain (Pain Scale 7-10) 04/12/19 14:15 04/19/19 14:14 Ondansetron HCl (Zofran) 4 mg Q6H PRN IVP Nausea & Vomiting 04/12/19 14:15 05/12/19 14:14 Polyethylene Glycol (Miralax) 17 gm DAILYPRN PRN ORAL Constipation 04/12/19 14:15 05/12/19 14:14 Vancomycin HCl (Vanco rx to dose) 1 ea DAILY PRN MISC Per rx protocol 04/12/19 17:30 05/12/19 17:29 Tony Springer MD Apr 14, 2019 11:24
--- NOTE | 2019-04-14 11:57 | NUR ---
CASE MANAGEMENT: REVIEW 04/14/2019 SI:SEPSIS. T 99 HR 90 RR 24 B/P 115/79 SATS 99% ON 2L/NC WBC 17 HGB 7.4 HCT 23.6 NA 150 CL 115 BUN 66 CR 2.1 GLU 190 CA 8.4 AST 13 ALT<6 TROPONIN 0.084 STOOL OB: PENDING IS: IVF @ 100 ml/HR HYDRALAZINE PO Q6H LOPRESSOR PO Q12H NAMENDA PO BID PLAVIX PO QD INSULIN ASPART SUBQ AC/HS VENOFER IV X1 CEFEPIME IV Q24H SDU STATUS DCP: PATIENT TO BE DISCHARGED TO SNF ONCE MEDICALLY CLEARED. PLAN OF CARE: 1. BiPAP per Pulmonary. 2. Antibiotic per Infectious Disease. 3. Blood pressure and blood sugar control. 4. IV fluids.
[2019-04-14 12:00] VITALS: BP 121/75
--- NOTE | 2019-04-14 12:13 | Nephrology Progress Note ---
Assessment/Plan Problem List: (1) Renal failure (ARF), acute on chronic (2) Diabetic nephropathy (3) Sepsis (4) Pneumonia (5) Right hemiplegia (6) Anemia in chronic kidney disease (CKD) (7) Pulmonary hypertension Assessment Renal failure; - Pre Renal - ? Underlying Renal Anemia Pneumonia / respiratory failure ? aspiration prone Sepsis elevated Troponin UTI HyperGlycemia / DM Right Esvin HTN Plan Fraga Hydrate BP and BS control urine studies slow hydrate kidney MAIKEL results noted: No [place] 2D echo Noted visualized except distal setum and inferiro wall hypokinesis Left ventricular ejection fraction estimated to be 55-60 %. avoid Nephrotoxics per orders Subjective ROS Limited/Unobtainable: No Constitutional: Reports: malaise Objective Objective Last 24 Hour Vital Signs Date Time Temp Pulse Resp B/P (MAP) Pulse Ox O2 Delivery O2 Flow Rate FiO2 04/14/19 12:00 98.2 90 24 121/75 (90) 100 04/14/19 12:00 Nasal Cannula 2.0 04/14/19 12:00 2.0 04/14/19 11:37 121/75 04/14/19 11:15 88 20 96 2.0 28 04/14/19 08:19 90 115/79 04/14/19 08:00 87 04/14/19 08:00 99.0 90 24 115/79 (91) 99 04/14/19 07:55 Nasal Cannula 2.0 04/14/19 07:54 2.0 04/14/19 07:10 98 24 99 2.0 28 04/14/19 05:58 122/68 04/14/19 05:16 108 32 98 Full Face 30 04/14/19 04:00 98.2 75 20 119/68 (85) 98 04/14/19 04:00 Bi-pap 04/14/19 04:00 30 04/14/19 04:00 86 04/14/19 03:30 86 26 99 Full Face 30 04/14/19 01:30 72 12 98 Facial 30 04/14/19 00:22 120/73 04/14/19 00:00 98.1 75 20 118/69 (85) 99 04/14/19 00:00 Bi-pap 04/14/19 00:00 76 04/13/19 22:30 86 27 98 Facial 30 04/13/19 20:59 89 119/68 04/13/19 20:00 2.0 04/13/19 20:00 Nasal Cannula 2.0 04/13/19 20:00 83 04/13/19 20:00 98.9 89 24 119/68 (85) 99 04/13/19 17:07 122/70 04/13/19 16:00 Nasal Cannula 2.0 04/13/19 16:00 98.5 94 20 122/70 (87) 100 04/13/19 15:50 2.0 04/13/19 15:49 77 Intake and Output 04/13/19 04/14/19 18:59 06:59 Intake Total 1180 ml 1100 ml Output Total 445 ml 500 ml Balance 735 ml 600 ml Intake IV Total 1180 ml 1100 ml Output Urine Total 445 ml 500 ml Laboratory Tests 04/13/19 13:05: Urine Color Pale yellow, Urine Appearance Slightly cloudy, Urine pH 5, Urine Specific [place] 1.015, Urine Protein 3+H, Urine Glucose (UA) Negative, Urine Ketones Negative, Urine Blood 4+H, Urine Nitrite Negative, Urine Bilirubin Negative, Urine Urobilinogen Normal, Urine Leukocyte Esterase Negative, Urine RBC 40-60H, Urine WBC 2-4, Urine Squamous Epithelial Cells ManyH, Urine Amorphous Sediment ManyH, Urine Bacteria Few, Urine Granular Casts 2-4H, Urine Fine Granular Casts 2-4H, Urine Eosinophils None seen, Urine Osmolality 432, Urine Random Creatinine [Pending], Urine Random Microalbumin [Pending], Urine Random Sodium 86, Urine Microalbumin/Creatinine Ratio [Pending] 04/14/19 03:30: White Blood Count 17.0H, Red Blood Count 2.69L, Hemoglobin 7.4L, Hematocrit 23.6L, Mean Corpuscular Volume 88, Mean Corpuscular Hemoglobin 27.6, Mean Corpuscular Hemoglobin Concent 31.4L, Red Cell Distribution Width 14.4, Platelet Count 196, Mean Platelet Volume 9.4, Neutrophils (%) (Auto) , Lymphocytes (%) (Auto) , Monocytes (%) (Auto) , Eosinophils (%) (Auto) , Basophils (%) (Auto) , Differential Total Cells Counted 100, Neutrophils % ( Manual) 89H, Lymphocytes % (Manual) 4L, Monocytes % (Manual) 3, Eosinophils % ( Manual) 0, Basophils % (Manual) 0, Band Neutrophils 4, Platelet Estimate Adequate, Platelet Morphology Normal, Hypochromasia 1+, Erythrocyte Sedimentation Rate 137H, Reticulocyte Count 0.4L, Prothrombin Time 12.7H, Prothromb Time International Ratio 1.2H, Activated Partial Thromboplast Time 37H , Sodium Level 150H, Potassium Level 3.6, Chloride Level 115H, Carbon Dioxide Level 21, Anion Gap 14, Blood Urea Nitrogen 66H, Creatinine 2.1H, Estimat Glomerular Filtration Rate , Glucose Level 190H, Uric Acid 8.8H, Calcium Level 8.4L, Phosphorus Level 3.8, Magnesium Level 1.9, Iron Level 10L, Total Iron Binding Capacity 109L, Percent Iron Saturation 9L, Unsaturated Iron Binding 99L , Total Bilirubin 0.2, Aspartate Amino Transf (AST/SGOT) 13L, Alanine Aminotransferase (ALT/SGPT) < 6L, Alkaline Phosphatase 84, Lactate Dehydrogenase 224, Troponin I 0.084H, Total Protein 6.5, Albumin 1.2L, Globulin 5.3, Albumin/Globulin Ratio 0.2L, Carcinoembryonic Antigen [Pending], Vitamin B12 Level > 2000H, Folate 4.7L, Random Vancomycin Level 10.5 04/14/19 08:30: Stool Occult Blood Positive Height (Feet): 5 Height (Inches): 3.00 Weight (Pounds): 168 General Appearance: no apparent distress Cardiovascular: tachycardia Respiratory/Chest: decreased breath sounds Abdomen: distended Wally Spivey MD Apr 14, 2019 12:13
--- NOTE | 2019-04-14 12:30 | NUR ---
NURSE NOTES: Blood transfusion started at this time. Vitals are stable. No adverse reaction noted. Will continue to monitor.
--- NOTE | 2019-04-14 13:16 | Infectious Diseases Prog Note ---
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 Possibly due to ectatic vasculature and body abitus, but upper mediastinal mass also possible. Correlate with any prior adiographs and may be available, consider CT for further evaluation if clinically ndicated CT 04/13/19 - Right-sided aortic arch, presumably accounting for the apparent upper mediastinal widening demonstrated on recent plain radiograph. No evidence of upper mediastinal mass. Extensive bilateral lower lobe consolidation , likely pneumonia, less extensive left upper lobe consolidation. 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 We will continue to follow the patient during this hospitalization. Subjective Allergies: Coded Allergies: No Known Allergies (Unverified , 04/12/19) Subjective Afebrile Leukocytosis resolving Objective Vital Signs Last 24 Hour Vital Signs Date Time Temp Pulse Resp B/P (MAP) Pulse Ox O2 Delivery O2 Flow Rate FiO2 04/14/19 12:00 98.2 90 24 121/75 (90) 100 04/14/19 12:00 92 04/14/19 12:00 Nasal Cannula 2.0 04/14/19 12:00 2.0 04/14/19 11:37 121/75 04/14/19 11:15 88 20 96 2.0 28 04/14/19 08:19 90 115/79 04/14/19 08:00 87 04/14/19 08:00 99.0 90 24 115/79 (91) 99 04/14/19 07:55 Nasal Cannula 2.0 04/14/19 07:54 2.0 04/14/19 07:10 98 24 99 2.0 28 04/14/19 05:58 122/68 04/14/19 05:16 108 32 98 Full Face 30 04/14/19 04:00 98.2 75 20 119/68 (85) 98 6/19/19 04:00 Bi-pap 04/14/19 04:00 30 04/14/19 04:00 86 04/14/19 03:30 86 26 99 Full Face 30 04/14/19 01:30 72 12 98 Facial 30 04/14/19 00:22 120/73 04/14/19 00:00 98.1 75 20 118/69 (85) 99 04/14/19 00:00 Bi-pap 04/14/19 00:00 76 04/13/19 22:30 86 27 98 Facial 30 04/13/19 20:59 89 119/68 04/13/19 20:00 2.0 04/13/19 20:00 Nasal Cannula 2.0 04/13/19 20:00 83 04/13/19 20:00 98.9 89 24 119/68 (85) 99 04/13/19 17:07 122/70 04/13/19 16:00 Nasal Cannula 2.0 04/13/19 16:00 98.5 94 20 122/70 (87) 100 04/13/19 15:50 2.0 04/13/19 15:49 77 Height (Feet): 5 Height (Inches): 3.00 Weight (Pounds): 168 Objective Gen: NAD on 2L NC HEENT: NCAT, MMM, EOMI LUNGS: CTAB, No W CARDS: RRR, S1, S2, No M/R/G, ABD: Soft, NT, ND NEURO: Following commands, Nods head Microbiology Date/Time Source Procedure Growth Status 04/12/19 11:05 Blood Blood Culture - Preliminary NO GROWTH AFTER 24 HOURS Resulted 04/12/19 10:50 Blood Blood Culture - Preliminary NO GROWTH AFTER 24 HOURS Resulted 04/13/19 08:15 Sputum Gram Stain Pending Resulted 04/13/19 08:15 Sputum Sputum Culture - Preliminary NO GROWTH Resulted 04/12/19 14:10 Nasal Nares MRSA Culture - Final NO METHICILLIN RESISTANT STAPH AUREUS... Complete 04/12/19 11:49 Nasal Nares - Final Complete 04/12/19 11:49 Nasal Nares - Final Complete 04/12/19 14:10 Rectum VRE Culture - Final NO VANCOMYCIN RESISTANT ENTEROCOCCUS ... Complete 04/12/19 14:10 Rectum - Final NO CARBAPENEM-RESISTANT ENTEROBACTERI... Complete Laboratory Tests Test 04/14/19 03:30 04/14/19 08:30 White Blood Count 17.0 K/UL (4.8-10.8) H Red Blood Count 2.69 M/UL (4.20-5.40) L Hemoglobin 7.4 G/DL (12.0-16.0) L Hematocrit 23.6 % (37.0-47.0) L Mean Corpuscular Volume 88 FL (80-99) Mean Corpuscular Hemoglobin 27.6 PG (27.0-31.0) Mean Corpuscular Hemoglobin Concent 31.4 G/DL (32.0-36.0) L Red Cell Distribution Width 14.4 % (11.6-14.8) Platelet Count 196 K/UL (150-450) Mean Platelet Volume 9.4 FL (6.5-10.1) Neutrophils (%) (Auto) % (45.0-75.0) Lymphocytes (%) (Auto) % (20.0-45.0) Monocytes (%) (Auto) % (1.0-10.0) Eosinophils (%) (Auto) % (0.0-3.0) Basophils (%) (Auto) % (0.0-2.0) Differential Total Cells Counted 100 Neutrophils % (Manual) 89 % (45-75) H Lymphocytes % (Manual) 4 % (20-45) L Monocytes % (Manual) 3 % (1-10) Eosinophils % (Manual) 0 % (0-3) Basophils % (Manual) 0 % (0-2) Band Neutrophils 4 % (0-8) Platelet Estimate Adequate Platelet Morphology Normal Hypochromasia 1+ Erythrocyte Sedimentation Rate 137 MM/HR (0-30) H Reticulocyte Count 0.4 % (0.5-2.0) L Prothrombin Time 12.7 SEC (9.30-11.50) H Prothromb Time International Ratio 1.2 (0.9-1.1) H Activated Partial Thromboplast Time 37 SEC (23-33) H Sodium Level 150 MMOL/L (136-145) H Potassium Level 3.6 MMOL/L (3.5-5.1) Chloride Level 115 MMOL/L (98-107) H Carbon Dioxide Level 21 MMOL/L (21-32) Anion Gap 14 mmol/L (5-15) Blood Urea Nitrogen 66 mg/dL (7-18) H Creatinine 2.1 MG/DL (0.55-1.30) H Estimat Glomerular Filtration Rate mL/min (>60) Glucose Level 190 MG/DL (74-106) H Uric Acid 8.8 MG/DL (2.6-7.2) H Calcium Level 8.4 MG/DL (8.5-10.1) L Phosphorus Level 3.8 MG/DL (2.5-4.9) Magnesium Level 1.9 MG/DL (1.8-2.4) Iron Level 10 ug/dL (50-175) L Total Iron Binding Capacity 109 ug/dL (250-450) L Percent Iron Saturation 9 % (15-50) L Unsaturated Iron Binding 99 ug/dL (112-346) L Total Bilirubin 0.2 MG/DL (0.2-1.0) Aspartate Amino Transf (AST/SGOT) 13 U/L (15-37) L Alanine Aminotransferase (ALT/SGPT) < 6 U/L (12-78) L Alkaline Phosphatase 84 U/L (46-116) Lactate Dehydrogenase 224 U/L (81-234) Troponin I 0.084 ng/mL (0.000-0.056) Total Protein 6.5 G/DL (6.4-8.2) Albumin 1.2 G/DL (3.4-5.0) L Globulin 5.3 g/dL Albumin/Globulin Ratio 0.2 (1.0-2.7) L Carcinoembryonic Antigen Pending Vitamin B12 Level > 2000 PG/ML (193-986) H Folate 4.7 NG/ML (8.6-58.9) L Random Vancomycin Level 10.5 ug/mL Stool Occult Blood Positive (NEGATIVE) Current Medications Medications (Trade) Dose Ordered Sig/Kenisha Route PRN Reason Start Time Stop Time Status Last Admin Dose Admin Acetaminophen (Tylenol) 650 mg Q4H PRN ORAL FEVER 04/12/19 14:15 05/12/19 14:14 Albuterol/ Ipratropium (Albuterol/ Ipratropium) 3 ml Q4H PRN HHN Shortness of Breath 04/12/19 14:15 04/17/19 14:14 Cefepime HCl 1 gm/ Dextrose 55 ml @ 110 mls/hr Q24H IVPB 04/13/19 09:00 04/20/19 08:59 04/14/19 08:18 Clopidogrel Bisulfate (Plavix) 75 mg DAILY ORAL 04/13/19 09:00 05/13/19 08:59 04/13/19 08:57 Dextrose 1,000 ml @ 50 mls/hr Q20H IV 04/14/19 12:30 05/14/19 12:29 Dextrose (Dextrose 50%) 25 ml Q30M PRN IV Hypoglycemia 04/12/19 19:45 05/12/19 19:44 Dextrose (Dextrose 50%) 50 ml Q30M PRN IV Hypoglycemia 04/12/19 19:45 05/12/19 19:44 Epoetin Bandar (Procrit (for non ESRD use)) 10,000 units FRI- SUBQ 04/14/19 21:00 05/14/19 20:59 Hydralazine HCl (Apresoline) 20 mg EVERY 8 HOURS ORAL 04/14/19 14:00 05/12/19 17:59 Insulin Aspart (NovoLOG) BEFORE MEALS AND HS SUBQ 04/12/19 21:00 05/12/19 20:59 04/14/19 11:40 Iron Sucrose 200 mg/Sodium Chloride 120 ml @ 240 mls/hr ONCE ONCE IV 04/15/19 21:00 04/15/19 21:29 Lorazepam (Ativan) 0.5 mg Q6H PRN ORAL For Anxiety 04/13/19 16:00 04/20/19 15:59 Memantine (Namenda) 5 mg BID ORAL 04/13/19 18:00 05/13/19 17:59 04/14/19 08:19 Metoprolol Tartrate (Lopressor) 75 mg EVERY 12 HOURS ORAL 04/12/19 21:00 05/12/19 20:59 04/14/19 08:19 Morphine Sulfate (Morphine Sulfate) 2 mg Q4H PRN IVP Severe Pain (Pain Scale 7-10) 04/12/19 14:15 04/19/19 14:14 Ondansetron HCl (Zofran) 4 mg Q6H PRN IVP Nausea & Vomiting 04/12/19 14:15 05/12/19 14:14 Polyethylene Glycol (Miralax) 17 gm DAILYPRN PRN ORAL Constipation 04/12/19 14:15 05/12/19 14:14 Vancomycin HCl (Vanco rx to dose) 1 ea DAILY PRN MISC Per rx protocol 04/12/19 17:30 05/12/19 17:29 Gildardo Gonsalves MD Apr 14, 2019 13:16
[2019-04-14] MEDS ORDERED: HydrALAZINE 10mg Tab ORAL SCH (14:00)
--- NOTE | 2019-04-14 15:21 | General Progress Note ---
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 ICD Codes: E11.22 - Type 2 diabetes mellitus with diabetic chronic kidney disease; N18.4 - Chronic kidney disease, stage 4 (severe) SNOMED: 69643284, 821338818, 065237394 Status: unchanged Assessment/Plan: pt diet abx o2 pulm tx neuro psyc eval cbc bmp am Subjective Constitutional: Reports: weakness Allergies: Coded Allergies: No Known Allergies (Unverified , 04/12/19) All Systems: reviewed and negative except above Subjective o2nc sleep Objective Last 24 Hour Vital Signs Date Time Temp Pulse Resp B/P (MAP) Pulse Ox O2 Delivery O2 Flow Rate FiO2 04/14/19 14:00 109/76 04/14/19 12:00 98.2 90 24 121/75 (90) 100 04/14/19 12:00 92 04/14/19 12:00 Nasal Cannula 2.0 04/14/19 12:00 2.0 04/14/19 11:37 121/75 04/14/19 11:15 88 20 96 2.0 28 04/14/19 08:19 90 115/79 04/14/19 08:00 87 04/14/19 08:00 99.0 90 24 115/79 (91) 99 04/14/19 07:55 Nasal Cannula 2.0 04/14/19 07:54 2.0 04/14/19 07:10 98 24 99 2.0 28 04/14/19 05:58 122/68 04/14/19 05:16 108 32 98 Full Face 30 04/14/19 04:00 98.2 75 20 119/68 (85) 98 04/14/19 04:00 Bi-pap 04/14/19 04:00 30 04/14/19 04:00 86 04/14/19 03:30 86 26 99 Full Face 30 04/14/19 01:30 72 12 98 Facial 30 04/14/19 00:22 120/73 04/14/19 00:00 98.1 75 20 118/69 (85) 99 04/14/19 00:00 Bi-pap 04/14/19 00:00 76 04/13/19 22:30 86 27 98 Facial 30 04/13/19 20:59 89 119/68 04/13/19 20:00 2.0 04/13/19 20:00 Nasal Cannula 2.0 04/13/19 20:00 83 04/13/19 20:00 98.9 89 24 119/68 (85) 99 04/13/19 17:07 122/70 04/13/19 16:00 Nasal Cannula 2.0 04/13/19 16:00 98.5 94 20 122/70 (87) 100 04/13/19 15:50 2.0 04/13/19 15:49 77 Intake and Output 04/13/19 04/14/19 18:59 06:59 Intake Total 1180 ml 1100 ml Output Total 445 ml 500 ml Balance 735 ml 600 ml Intake IV Total 1180 ml 1100 ml Output Urine Total 445 ml 500 ml Laboratory Tests 04/14/19 03:30: White Blood Count 17.0H, Red Blood Count 2.69L, Hemoglobin 7.4L, Hematocrit 23.6L, Mean Corpuscular Volume 88, Mean Corpuscular Hemoglobin 27.6, Mean Corpuscular Hemoglobin Concent 31.4L, Red Cell Distribution Width 14.4, Platelet Count 196, Mean Platelet Volume 9.4, Neutrophils (%) (Auto) , Lymphocytes (%) (Auto) , Monocytes (%) (Auto) , Eosinophils (%) (Auto) , Basophils (%) (Auto) , Differential Total Cells Counted 100, Neutrophils % ( Manual) 89H, Lymphocytes % (Manual) 4L, Monocytes % (Manual) 3, Eosinophils % ( Manual) 0, Basophils % (Manual) 0, Band Neutrophils 4, Platelet Estimate Adequate, Platelet Morphology Normal, Hypochromasia 1+, Erythrocyte Sedimentation Rate 137H, Reticulocyte Count 0.4L, Prothrombin Time 12.7H, Prothromb Time International Ratio 1.2H, Activated Partial Thromboplast Time 37H , Sodium Level 150H, Potassium Level 3.6, Chloride Level 115H, Carbon Dioxide Level 21, Anion Gap 14, Blood Urea Nitrogen 66H, Creatinine 2.1H, Estimat Glomerular Filtration Rate , Glucose Level 190H, Uric Acid 8.8H, Calcium Level 8.4L, Phosphorus Level 3.8, Magnesium Level 1.9, Iron Level 10L, Total Iron Binding Capacity 109L, Percent Iron Saturation 9L, Unsaturated Iron Binding 99L , Total Bilirubin 0.2, Aspartate Amino Transf (AST/SGOT) 13L, Alanine Aminotransferase (ALT/SGPT) < 6L, Alkaline Phosphatase 84, Lactate Dehydrogenase 224, Troponin I 0.084H, Total Protein 6.5, Albumin 1.2L, Globulin 5.3, Albumin/Globulin Ratio 0.2L, Carcinoembryonic Antigen [Pending], Vitamin B12 Level > 2000H, Folate 4.7L, Random Vancomycin Level 10.5 04/14/19 08:30: Stool Occult Blood Positive Height (Feet): 5 Height (Inches): 3.00 Weight (Pounds): 168 General Appearance: lethargic EENT: normal ENT inspection Neck: normal alignment Cardiovascular: normal peripheral pulses, normal rate, regular rhythm Respiratory/Chest: chest wall non-tender, lungs clear, normal breath sounds Abdomen: normal bowel sounds, non tender, soft Extremities: normal inspection Edema: no edema noted Arm (L), no edema noted Arm (R), no edema noted Leg (L), no edema noted Leg (R), no edema noted Pedal (L), no edema noted Pedal (R), no edema noted Generalized Neurologic: motor weakness Skin: normal pigmentation, warm/dry Jama Keating DO Apr 14, 2019 15:21
--- NOTE | 2019-04-14 15:32 | NUR ---
ST NOTE: MODIFIED BARIUM SWALLOW STUDY COMPLETED MODIFIED BARIUM SWALLOW STUDY PT ALERT WITH MAX CUES, DID NOT FOLLOW SIMPLE DIRECTIONS. PT WITH NC(2L). GIVEN PO TRIALS: THIN(TSPX2/MED CUP) NECTAR THICK(TSP/MED CUP), HONEY THICK (TSP) AND PUDDING(TSP) IMPRESSION: PT PRESENTS WITH SIGNIFICANT(MODERATELY SEVERE) OROPHARYNGEAL DYSPHAGIA EVIDENCED BY MILDLY TO MODERATELY INCREASED ORAL TRANSIT TIME (4 TO 8 SECONDS), ESPECIALLY WITH PUDDING, MILD TO MODERATE ORAL RESIDUE DUE TO SLOW TO SLOWED TONGUE MOVEMENT AND OVERALL SENSORIMOTOR DEFICITS. PHARYNGEAL PHASE: DEEP TRACE LARYNGEAL PENETRATION WITH NECTAR THICK(MED CUP) DUE TO PHARYNGEAL RESIDUE AFTER SWALLOW IN PYRIFORM SINUSES DUE TO OVERALL PHARYNGEAL WEAKNESS. MILD TO MODERATE PHARYNGEAL RESIDUE, WORSE WITH PUDDING WAS NOTED IN TONGUE BASE, VALLECULAE AND PYRIFORM SINUSES SECONDARY TO REDUCED TONGUE BASE RETRACTION, REDUCED TO NO INVERSION OF EPIGLOTTIC MOVEMENT AND REDUCED LARYNGEAL ELEVATION. NO ASPIRATION WITH THIN, HONEY THICK AND PUDDING, BUT HIGH RISK FOR CHRONIC ASPIRATION SECONDARY TO PT WAS UNABLE TO CLEAR PHARYNGEAL RESIDUE EVEN GIVEN MAX CUES, AND REDUCED PHARYNGEAL SENSATION AND OVERALL PHARYNGEAL WEAKNESS. COMPLETED OROPHARYNGEAL SUCTION AT THE END OF MODIFIED BARIUM SWALLOW STUDY. PT WAS UNABLE TO FOLLOW SWALLOW TECHNIQUES SECONDARY TO PT IS COGNITIVELY IMPAIRED. RECOMMENDATIONS: 1. DUE TO PT IS CURRENTLY DIAGNOSED WITH PNA(PER CXR: INFILTRATES ARE SEEN AT BOTH LUNG BASES; AND CHEST CT: EXTENSIVE BILATERAL LOWER LOBE CONSOLIDATION, LIKELY PNA), NPO IS RECOMMENDED. 2. CONSERVATIVELY, LONG-TERM NONORAL FEEDING SHOULD BE CONSIDERED IF PT'S FAMILY AGREES. 3. TEMPORARILY NONORAL FEEDING MEANS IS RECOMMENDED AT THIS TIME. 4. ORAL CARE. 4. SKILLED ST SERVICE TO FOLLOW UP D/W CATRACHITO BURNETT AND DISCUSSED WITH PT'S SON RE:RESULTS AND RECOMMENDATIONS. PER PT'S SON, WILL AGREE THE PEG IF NEEDED.
[2019-04-14 16:00] VITALS: BP 117/69
--- NOTE | 2019-04-14 16:44 | Cardiac Electrophysiology PN ---
Assessment/Plan Assessment/Plan 1. Sinus tachycardia, likely due to combination of dehydration and azotemia. The patient will be getting gentle hydration by Dr. Spivey.No fib or SVT 2. Sepsis. The patient's lactic acid is 2. White count is 25,000. 3. Anemia. 4. History of CVA with hemiplegia. 5. Nonverbal status. 6. Renal failure. 7. Coronary artery disease. On metoprolol 75 mg b.i.d. and Plavix 75 mg daily 8. Dysphagia. PEG pending family consent. Change Po Metoprolol to 5 mg iv q 6hr Subjective Subjective NPO. Had one unit of PRBC. Family undecided re PEG Objective Last 24 Hour Vital Signs Date Time Temp Pulse Resp B/P (MAP) Pulse Ox O2 Delivery O2 Flow Rate FiO2 04/14/19 16:00 98.4 78 22 117/69 (85) 100 04/14/19 16:00 2.0 04/14/19 16:00 Nasal Cannula 2.0 04/14/19 15:52 77 04/14/19 14:00 109/76 04/14/19 12:00 98.2 90 24 121/75 (90) 100 04/14/19 12:00 92 04/14/19 12:00 Nasal Cannula 2.0 04/14/19 12:00 2.0 04/14/19 11:37 121/75 04/14/19 11:15 88 20 96 2.0 28 04/14/19 08:19 90 115/79 04/14/19 08:00 87 04/14/19 08:00 99.0 90 24 115/79 (91) 99 04/14/19 07:55 Nasal Cannula 2.0 04/14/19 07:54 2.0 04/14/19 07:10 98 24 99 2.0 28 04/14/19 05:58 122/68 04/14/19 05:16 108 32 98 Full Face 30 04/14/19 04:00 98.2 75 20 119/68 (85) 98 04/14/19 04:00 Bi-pap 04/14/19 04:00 30 04/14/19 04:00 86 04/14/19 03:30 86 26 99 Full Face 30 04/14/19 01:30 72 12 98 Facial 30 04/14/19 00:22 120/73 04/14/19 00:00 98.1 75 20 118/69 (85) 99 04/14/19 00:00 Bi-pap 04/14/19 00:00 76 04/13/19 22:30 86 27 98 Facial 30 04/13/19 20:59 89 119/68 04/13/19 20:00 2.0 04/13/19 20:00 Nasal Cannula 2.0 04/13/19 20:00 83 04/13/19 20:00 98.9 89 24 119/68 (85) 99 04/13/19 17:07 122/70 Intake and Output 04/13/19 04/14/19 19:00 07:00 Intake Total 1105 ml 1100 ml Output Total 445 ml 500 ml Balance 660 ml 600 ml Intake IV Total 1105 ml 1100 ml Output Urine Total 445 ml 500 ml Laboratory Tests Test 04/14/19 03:30 04/14/19 08:30 White Blood Count 17.0 K/UL (4.8-10.8) H Red Blood Count 2.69 M/UL (4.20-5.40) L Hemoglobin 7.4 G/DL (12.0-16.0) L Hematocrit 23.6 % (37.0-47.0) L Mean Corpuscular Volume 88 FL (80-99) Mean Corpuscular Hemoglobin 27.6 PG (27.0-31.0) Mean Corpuscular Hemoglobin Concent 31.4 G/DL (32.0-36.0) L Red Cell Distribution Width 14.4 % (11.6-14.8) Platelet Count 196 K/UL (150-450) Mean Platelet Volume 9.4 FL (6.5-10.1) Neutrophils (%) (Auto) % (45.0-75.0) Lymphocytes (%) (Auto) % (20.0-45.0) Monocytes (%) (Auto) % (1.0-10.0) Eosinophils (%) (Auto) % (0.0-3.0) Basophils (%) (Auto) % (0.0-2.0) Differential Total Cells Counted 100 Neutrophils % (Manual) 89 % (45-75) H Lymphocytes % (Manual) 4 % (20-45) L Monocytes % (Manual) 3 % (1-10) Eosinophils % (Manual) 0 % (0-3) Basophils % (Manual) 0 % (0-2) Band Neutrophils 4 % (0-8) Platelet Estimate Adequate Platelet Morphology Normal Hypochromasia 1+ Erythrocyte Sedimentation Rate 137 MM/HR (0-30) H Reticulocyte Count 0.4 % (0.5-2.0) L Prothrombin Time 12.7 SEC (9.30-11.50) H Prothromb Time International Ratio 1.2 (0.9-1.1) H Activated Partial Thromboplast Time 37 SEC (23-33) H Sodium Level 150 MMOL/L (136-145) H Potassium Level 3.6 MMOL/L (3.5-5.1) Chloride Level 115 MMOL/L (98-107) H Carbon Dioxide Level 21 MMOL/L (21-32) Anion Gap 14 mmol/L (5-15) Blood Urea Nitrogen 66 mg/dL (7-18) H Creatinine 2.1 MG/DL (0.55-1.30) H Estimat Glomerular Filtration Rate mL/min (>60) Glucose Level 190 MG/DL (74-106) H Uric Acid 8.8 MG/DL (2.6-7.2) H Calcium Level 8.4 MG/DL (8.5-10.1) L Phosphorus Level 3.8 MG/DL (2.5-4.9) Magnesium Level 1.9 MG/DL (1.8-2.4) Iron Level 10 ug/dL (50-175) L Total Iron Binding Capacity 109 ug/dL (250-450) L Percent Iron Saturation 9 % (15-50) L Unsaturated Iron Binding 99 ug/dL (112-346) L Total Bilirubin 0.2 MG/DL (0.2-1.0) Aspartate Amino Transf (AST/SGOT) 13 U/L (15-37) L Alanine Aminotransferase (ALT/SGPT) < 6 U/L (12-78) L Alkaline Phosphatase 84 U/L (46-116) Lactate Dehydrogenase 224 U/L (81-234) Troponin I 0.084 ng/mL (0.000-0.056) Total Protein 6.5 G/DL (6.4-8.2) Albumin 1.2 G/DL (3.4-5.0) L Globulin 5.3 g/dL Albumin/Globulin Ratio 0.2 (1.0-2.7) L Carcinoembryonic Antigen Pending Vitamin B12 Level > 2000 PG/ML (193-986) H Folate 4.7 NG/ML (8.6-58.9) L Random Vancomycin Level 10.5 ug/mL Stool Occult Blood Positive (NEGATIVE) Microbiology Date/Time Source Procedure Growth Status 04/12/19 11:05 Blood Blood Culture - Preliminary NO GROWTH AFTER 24 HOURS Resulted 04/12/19 10:50 Blood Blood Culture - Preliminary NO GROWTH AFTER 24 HOURS Resulted 04/13/19 08:15 Sputum Gram Stain - Final Resulted 04/13/19 08:15 Sputum Sputum Culture - Preliminary NO GROWTH Resulted 04/12/19 14:10 Nasal Nares MRSA Culture - Final NO METHICILLIN RESISTANT STAPH AUREUS... Complete 04/12/19 11:49 Nasal Nares - Final Complete 04/12/19 11:49 Nasal Nares - Final Complete 04/12/19 14:10 Rectum VRE Culture - Final NO VANCOMYCIN RESISTANT ENTEROCOCCUS ... Complete 04/12/19 14:10 Rectum - Final NO CARBAPENEM-RESISTANT ENTEROBACTERI... Complete Objective HEAD AND NECK: Showed no JVD. LUNGS: Coarse rhonchi bilaterally. CARDIOVASCULAR: Regular S1 and S2 with no gallop. ABDOMEN: Soft. EXTREMITIES: No pitting edema. Claude Pena MD Apr 14, 2019 16:44
[2019-04-14] MEDS: Metoprolol 5mg/5ml Inj IVP SCH (17:04)
--- NOTE | 2019-04-14 17:15 | Progress Note ---
DATE: 04/14/2019 SUBJECTIVE: This is a 79-year-old female patient with sepsis. This patient still has some confusion, some disorganized thought process, and altered mental status and decline in cognition below baseline that is why she requires daily psychiatric consultation. MENTAL STATUS EXAMINATION: A 79-year-old female. Appearance is disheveled. Attitude, irritable and agitated. Affect, guarded and restricted. Intellect poor. Mood depressed and anxious. Motor activity, psychomotor agitation. Attention span is poor. Orientation x2. Speech is pressured. Thought process, disorganized and illogical. Insight and judgment is poor. DIAGNOSIS: Major depressive disorder, severe, recurrent with psychotic features, rule out dementia with psychosis. PLAN: Continue to titrate upon medications to stabilize her mood. A 20 minutes of cognitive behavioral therapy provided to help identify her automatic negative thoughts and help her convert those negative thoughts to more positive thoughts to reduce depression, anxiety, and mood lability. Chart reviewed. Discussed with staff. Seen and assessed in her room. Omar Glover M.D. DR: Lucina JOB#: [id number] CC:
--- NOTE | 2019-04-14 19:10 | NUR ---
NURSE NOTES: Received report from Neva RN, pt. in bed awake- opens eyes to name- non-verbal, cardiac monitoring on, no signs or symptoms of acute cardiac or respiratory distress noted, bed in lowest position and call light within easy reach, bed alarm on, side rails up x's3 and safety brakes engaged, pt appears to be tolerating current 2L NC settings well- no distress noted, Fraga intact and draining to gravity, comfort measures provided, and all needs attended to, RT. wrist 22G IV intact and patent running 22G D5W at 50cc/hr, safety measures continued, will continue with plan of care.
--- NOTE | 2019-04-14 19:20 | NUR ---
HAND-OFF: Report given to HORTENCIA Caal. Stable condition.
[2019-04-14 20:00] VITALS: BP 131/72
[2019-04-14] MEDS ORDERED: Epogen (for non ESRD use) SUBQ SCH (21:00)
--- NOTE | 2019-04-14 22:55 | NUR ---
RESPIRATORY NOTE: Pt placed on BiPAP for nightly use. Pt now on BiPAP 15/5, backup rate 14, 30%. Pt placed on a Full Face mask, skin intact, no redness/breakdowns noted. Foam tape applied on pt's forehead/cheeks/chin to prevent any irritations. Pt is wake/disoriented. B/S enmanuel. rhonchi, sxn prn. BiPAP plugged into red outlet, alarms on & audible. Pt in no apparent distress at this time. Will continue plan of care.
[2019-04-15] VITALS (7 sets, daily range): BP systolic 123–143; BP diastolic 63–75
[2019-04-15] MEDS: Metoprolol 5mg/5ml Inj IVP SCH ×4 (00:13→17:31)
[2019-04-15] MEDS: NovoLOG Insulin Flexpen SUBQ SCH ×4 (05:37→20:39)
[2019-04-15 06:57] LABS: HEMATOCRIT 28.1 % (37.0-47.0); HEMOGLOBIN 8.9 G/DL (12.0-16.0); MEAN CORPUSCULAR VOLUME 86 FL (80-99); PLATELET COUNT 196 K/UL (150-450); RED BLOOD COUNT 3.25 M/UL (4.20-5.40); RED CELL DISTRIBUTION WIDTH 14.2 % (11.6-14.8); WHITE BLOOD COUNT 15.3 K/UL (4.8-10.8)
--- NOTE | 2019-04-15 07:05 | NUR ---
HAND-OFF: Report given to Kamar BURNETT, pt. remains stable and no signs of distress noted. Addendum: 04/15/19 at 0706 by PATRICIA VÁZQUEZ RN RN correction to message above report given to Lul BURNETT- not Kamar BURNETT.
[2019-04-15 07:08] LABS: ANION GAP 14 mmol/L (5-15); BLOOD UREA NITROGEN 54 mg/dL (7-18); CALCIUM 8.7 MG/DL (8.5-10.1); CARBON DIOXIDE 20 MMOL/L (21-32); CHLORIDE 112 MMOL/L (98-107); CREATININE 1.7 MG/DL (0.55-1.30); POTASSIUM 3.3 MMOL/L (3.5-5.1); SODIUM 146 MMOL/L (136-145)
--- NOTE | 2019-04-15 07:27 | NUR ---
RESPIRATORY NOTE: ABG drawn. Results are in system. Reported results to Destiny ARCE Addendum: 04/15/19 at 0738 by RT KIMBERLYN RT Note done in ERROR.
--- NOTE | 2019-04-15 07:30 | NUR ---
NURSE NOTES: Report received from Afua Galindo RN.Pt asleep noted no resp distress on Bipap15/5 Fio2 30%,no signs of pain or discomfort SR on the monitor,kept NPO,IV site to RW intact with IVF D5W at 50ml/hr,SR up x2 ,HOB elevated,bed lock in lowest position,will continue with plans of care.
--- NOTE | 2019-04-15 08:30 | NUR ---
NURSE NOTES: Pt switched to 2 L NC,tolerating well,no SOB noted.
[2019-04-15 08:49] LABS: ALANINE AMINOTRANSFERASE 10 U/L (12-78); ALBUMIN 1.2 G/DL (3.4-5.0); ALKALINE PHOSPHATASE 76 U/L (46-116); ASPARTATE AMINO TRANSFERASE 15 U/L (15-37); BILIRUBIN,DIRECT < 0.1 MG/DL (0.0-0.3); BILIRUBIN,TOTAL 0.2 MG/DL (0.2-1.0); PHOSPHORUS 3.4 MG/DL (2.5-4.9)
[2019-04-15] MEDS: Memantine 5 MG TAB ORAL SCH (09:00)
[2019-04-15] MEDS: Cefepime 1gm in D5W 55ml IVPB SCH (09:04)
--- NOTE | 2019-04-15 10:09 | Infectious Diseases Prog Note ---
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 PNA CXR - B/L Infiltrates Aferbile WBCs up to 25 Sp Cx - C. alb Widened mediastinum - right sided aortic arch CXR - Apparent upper mediastinal widening. Possibly due to ectatic vasculature and body abitus, but upper mediastinal mass also possible. Correlate with any prior adiographs and may be available, consider CT for further evaluation if clinically ndicated CT 04/13/19 - Right-sided aortic arch, presumably accounting for the apparent upper mediastinal widening demonstrated on recent plain radiograph. No evidence of upper mediastinal mass. Extensive bilateral lower lobe consolidation , likely pneumonia, less extensive left upper lobe consolidation. 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 CKD CAD PLAN - Continue Cefepime #3/7 and Vancomycin #3/7 pending Cx - Will likely D/C Vancomycin if blood Cx still negative tomorrow - f/u Blood Cx - Monitor CBC and Temps Thank you for this consult. We will continue to follow the patient during this hospitalization. Subjective Allergies: Coded Allergies: No Known Allergies (Unverified , 04/12/19) Subjective Satting Well Afebrile Leukocytosis resolving Objective Vital Signs Last 24 Hour Vital Signs Date Time Temp Pulse Resp B/P (MAP) Pulse Ox O2 Delivery O2 Flow Rate FiO2 04/15/19 08:00 Nasal Cannula 2.0 04/15/19 08:00 98.1 94 28 126/68 (87) 98 04/15/19 08:00 30 04/15/19 07:32 98 Nasal Cannula 2.0 28 04/15/19 05:42 96 04/15/19 05:37 106 04/15/19 05:35 106 129/63 04/15/19 05:34 106 129/63 (85) 04/15/19 05:17 105 24 99 Full Face 30 04/15/19 04:00 98.4 79 22 136/75 (95) 99 04/15/19 04:00 2.0 04/15/19 04:00 Nasal Cannula 2.0 04/15/19 04:00 89 04/15/19 03:13 94 23 98 Full Face 30 04/15/19 01:21 102 23 99 Full Face 30 04/15/19 00:26 91 04/15/19 00:14 89 04/15/19 00:13 88 143/75 04/15/19 00:00 Nasal Cannula 2.0 04/15/19 00:00 98.6 88 20 143/75 (97) 97 04/15/19 00:00 2.0 04/15/19 00:00 88 04/14/19 22:53 100 24 99 Full Face 30 04/14/19 20:00 84 04/14/19 20:00 Nasal Cannula 2.0 04/14/19 20:00 98.1 72 20 131/72 (91) 100 04/14/19 20:00 2.0 04/14/19 19:05 98 Nasal Cannula 2.0 28 04/14/19 17:04 78 117/69 04/14/19 16:00 98.4 78 22 117/69 (85) 100 04/14/19 16:00 2.0 04/14/19 16:00 Nasal Cannula 2.0 04/14/19 15:52 77 04/14/19 14:00 109/76 04/14/19 12:00 98.2 90 24 121/75 (90) 100 04/14/19 12:00 92 04/14/19 12:00 Nasal Cannula 2.0 04/14/19 12:00 2.0 04/14/19 11:37 121/75 04/14/19 11:15 88 20 96 2.0 28 Height (Feet): 5 Height (Inches): 3.00 Weight (Pounds): 168 Objective Gen: NAD HEENT: NCAT, MMM, EOMI LUNGS: CTAB, No W CARDS: RRR, S1, S2, No M/R/G, ABD: Soft, NT, ND Microbiology Date/Time Source Procedure Growth Status 04/12/19 11:05 Blood Blood Culture - Preliminary NO GROWTH AFTER 48 HOURS Resulted 04/12/19 10:50 Blood Blood Culture - Preliminary NO GROWTH AFTER 48 HOURS Resulted 04/13/19 08:15 Sputum Gram Stain - Final Complete 04/13/19 08:15 Sputum Culture - Final Sugar Albicans Complete 04/12/19 14:10 Nasal Nares MRSA Culture - Final NO METHICILLIN RESISTANT STAPH AUREUS... Complete 04/12/19 11:49 Nasal Nares - Final Complete 04/12/19 11:49 Nasal Nares - Final Complete 04/12/19 14:10 Rectum VRE Culture - Final NO VANCOMYCIN RESISTANT ENTEROCOCCUS ... Complete 04/12/19 14:10 Rectum - Final NO CARBAPENEM-RESISTANT ENTEROBACTERI... Complete Laboratory Tests Test 04/15/19 04:00 White Blood Count 15.3 K/UL (4.8-10.8) H Red Blood Count 3.25 M/UL (4.20-5.40) L Hemoglobin 8.9 G/DL (12.0-16.0) L Hematocrit 28.1 % (37.0-47.0) L Mean Corpuscular Volume 86 FL (80-99) Mean Corpuscular Hemoglobin 27.5 PG (27.0-31.0) Mean Corpuscular Hemoglobin Concent 31.8 G/DL (32.0-36.0) L Red Cell Distribution Width 14.2 % (11.6-14.8) Platelet Count 196 K/UL (150-450) Mean Platelet Volume 8.6 FL (6.5-10.1) Neutrophils (%) (Auto) % (45.0-75.0) Lymphocytes (%) (Auto) % (20.0-45.0) Monocytes (%) (Auto) % (1.0-10.0) Eosinophils (%) (Auto) % (0.0-3.0) Basophils (%) (Auto) % (0.0-2.0) Neutrophils % (Manual) Pending Lymphocytes % (Manual) Pending Platelet Estimate Pending Platelet Morphology Pending Sodium Level 146 MMOL/L (136-145) H Potassium Level 3.3 MMOL/L (3.5-5.1) L Chloride Level 112 MMOL/L (98-107) H Carbon Dioxide Level 20 MMOL/L (21-32) L Anion Gap 14 mmol/L (5-15) Blood Urea Nitrogen 54 mg/dL (7-18) H Creatinine 1.7 MG/DL (0.55-1.30) H Estimat Glomerular Filtration Rate mL/min (>60) Glucose Level 140 MG/DL (74-106) H Calcium Level 8.7 MG/DL (8.5-10.1) Phosphorus Level 3.4 MG/DL (2.5-4.9) Magnesium Level 1.9 MG/DL (1.8-2.4) Total Bilirubin 0.2 MG/DL (0.2-1.0) Direct Bilirubin < 0.1 MG/DL (0.0-0.3) Aspartate Amino Transf (AST/SGOT) 15 U/L (15-37) Alanine Aminotransferase (ALT/SGPT) 10 U/L (12-78) L Alkaline Phosphatase 76 U/L (46-116) Total Protein 6.5 G/DL (6.4-8.2) Albumin 1.2 G/DL (3.4-5.0) L Current Medications Medications (Trade) Dose Ordered Sig/Kenisha Route PRN Reason Start Time Stop Time Status Last Admin Dose Admin Acetaminophen (Tylenol) 650 mg Q4H PRN ORAL FEVER 04/12/19 14:15 05/12/19 14:14 Albuterol/ Ipratropium (Albuterol/ Ipratropium) 3 ml Q4H PRN HHN Shortness of Breath 04/12/19 14:15 04/17/19 14:14 Cefepime HCl 1 gm/ Dextrose 55 ml @ 110 mls/hr Q24H IVPB 04/13/19 09:00 04/20/19 08:59 04/15/19 09:04 Clopidogrel Bisulfate (Plavix) 75 mg DAILY ORAL 04/13/19 09:00 05/13/19 08:59 04/13/19 08:57 Dextrose 1,000 ml @ 50 mls/hr Q20H IV 04/14/19 12:30 05/14/19 12:29 04/15/19 00:44 Dextrose (Dextrose 50%) 25 ml Q30M PRN IV Hypoglycemia 04/12/19 19:45 05/12/19 19:44 Dextrose (Dextrose 50%) 50 ml Q30M PRN IV Hypoglycemia 04/12/19 19:45 05/12/19 19:44 Epoetin Bandar (Procrit (for non ESRD use)) 10,000 units FRI-WED-FRI SUBQ 04/14/19 21:00 05/14/19 20:59 04/14/19 20:11 Hydralazine HCl (Apresoline) 10 mg Q2H PRN IV For High Blood Pressure 04/14/19 16:00 05/14/19 15:59 Insulin Aspart (NovoLOG) BEFORE MEALS AND HS SUBQ 04/12/19 21:00 05/12/19 20:59 04/15/19 05:37 Iron Sucrose 200 mg/Sodium Chloride 120 ml @ 240 mls/hr ONCE ONCE IV 04/15/19 21:00 04/15/19 21:29 Lorazepam (Ativan) 0.5 mg Q6H PRN ORAL For Anxiety 04/13/19 16:00 04/20/19 15:59 Memantine (Namenda) 5 mg BID ORAL 04/13/19 18:00 05/13/19 17:59 04/14/19 08:19 Metoprolol Tartrate (Lopressor) 5 mg EVERY 6 HOURS IVP 04/14/19 18:00 05/14/19 17:59 04/15/19 05:35 Morphine Sulfate (Morphine Sulfate) 2 mg Q4H PRN IVP Severe Pain (Pain Scale 7-10) 04/12/19 14:15 04/19/19 14:14 Ondansetron HCl (Zofran) 4 mg Q6H PRN IVP Nausea & Vomiting 04/12/19 14:15 05/12/19 14:14 Polyethylene Glycol (Miralax) 17 gm DAILYPRN PRN ORAL Constipation 04/12/19 14:15 05/12/19 14:14 Potassium Chloride 100 ml @ 100 mls/hr Q1HR IVPB 04/15/19 09:00 04/15/19 11:59 04/15/19 09:11 Vancomycin HCl (Vanco rx to dose) 1 ea DAILY PRN MISC Per rx protocol 04/12/19 17:30 05/12/19 17:29 Gildardo Gonsalves MD Apr 15, 2019 10:09
--- NOTE | 2019-04-15 10:35 | Pulmonology Progress Note ---
Assessment/Plan Problems: (1) Nosocomial pneumonia (2) Sepsis (3) At high risk for aspiration (4) Acute metabolic encephalopathy (5) Diabetes mellitus (6) History of CVA (cerebrovascular accident) (7) CAD (coronary artery disease) (8) Right hemiplegia (9) Hypertensive heart disease (10) 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 Assessment/Plan WBC decreasing OB positive vale culture, still pending, wbc still high aggressive IV fluids with D5W check electrolytes daily, Na is getting better broad spectrum abx as per ID renal studies reviewed, renal US negative for acute changes f/u urine electrolytes sliding scale with Novolog coverage swallow study done, she failed dvt prophylaxis CT chest reviewed, extensive infiltrate in lower will do positional Chest pt in prone position Subjective ROS Limited/Unobtainable: No Interval Events: awake, comfortable, the son is at the bed site Allergies: Coded Allergies: No Known Allergies (Unverified , 04/12/19) Objective Last 24 Hour Vital Signs Date Time Temp Pulse Resp B/P (MAP) Pulse Ox O2 Delivery O2 Flow Rate FiO2 04/15/19 08:00 Nasal Cannula 2.0 04/15/19 08:00 98.1 94 28 126/68 (87) 98 04/15/19 08:00 30 04/15/19 07:32 98 Nasal Cannula 2.0 28 04/15/19 05:42 96 04/15/19 05:37 106 04/15/19 05:35 106 129/63 04/15/19 05:34 106 129/63 (85) 04/15/19 05:17 105 24 99 Full Face 30 04/15/19 04:00 98.4 79 22 136/75 (95) 99 04/15/19 04:00 2.0 04/15/19 04:00 Nasal Cannula 2.0 04/15/19 04:00 89 04/15/19 03:13 94 23 98 Full Face 30 04/15/19 01:21 102 23 99 Full Face 30 04/15/19 00:26 91 04/15/19 00:14 89 04/15/19 00:13 88 143/75 04/15/19 00:00 Nasal Cannula 2.0 04/15/19 00:00 98.6 88 20 143/75 (97) 97 04/15/19 00:00 2.0 04/15/19 00:00 88 04/14/19 22:53 100 24 99 Full Face 30 04/14/19 20:00 84 04/14/19 20:00 Nasal Cannula 2.0 04/14/19 20:00 98.1 72 20 131/72 (91) 100 04/14/19 20:00 2.0 04/14/19 19:05 98 Nasal Cannula 2.0 28 04/14/19 17:04 78 117/69 04/14/19 16:00 98.4 78 22 117/69 (85) 100 04/14/19 16:00 2.0 04/14/19 16:00 Nasal Cannula 2.0 04/14/19 15:52 77 04/14/19 14:00 109/76 04/14/19 12:00 98.2 90 24 121/75 (90) 100 04/14/19 12:00 92 04/14/19 12:00 Nasal Cannula 2.0 04/14/19 12:00 2.0 04/14/19 11:37 121/75 04/14/19 11:15 88 20 96 2.0 28 Intake and Output 04/14/19 04/15/19 19:00 07:00 Intake Total 980.000 ml 562 ml Output Total 500 ml 625 ml Balance 480.000 ml -63 ml Intake IV Total 980.000 ml 562 ml Output Urine Total 500 ml 625 ml # Bowel Movements 4 4 General Appearance: WD/WN HEENT: normocephalic, atraumatic Respiratory/Chest: chest wall non-tender, lungs clear Breasts: no masses Cardiovascular: normal peripheral pulses, regular rhythm Abdomen: soft, non tender, no mass Extremities: no cyanosis Skin: no rash, no lesions Microbiology Date/Time Source Procedure Growth Status 04/12/19 11:05 Blood Blood Culture - Preliminary NO GROWTH AFTER 48 HOURS Resulted 04/12/19 10:50 Blood Blood Culture - Preliminary NO GROWTH AFTER 48 HOURS Resulted 04/13/19 08:15 Sputum Gram Stain - Final Complete 04/13/19 08:15 Sputum Culture - Final Sugar Albicans Complete 04/12/19 14:10 Nasal Nares MRSA Culture - Final NO METHICILLIN RESISTANT STAPH AUREUS... Complete 04/12/19 11:49 Nasal Nares - Final Complete 04/12/19 11:49 Nasal Nares - Final Complete 04/12/19 14:10 Rectum VRE Culture - Final NO VANCOMYCIN RESISTANT ENTEROCOCCUS ... Complete 04/12/19 14:10 Rectum - Final NO CARBAPENEM-RESISTANT ENTEROBACTERI... Complete Laboratory Tests 04/15/19 04:00: White Blood Count 15.3H, Red Blood Count 3.25L, Hemoglobin 8.9L, Hematocrit 28.1L, Mean Corpuscular Volume 86, Mean Corpuscular Hemoglobin 27.5, Mean Corpuscular Hemoglobin Concent 31.8L, Red Cell Distribution Width 14.2, Platelet Count 196, Mean Platelet Volume 8.6, Neutrophils (%) (Auto) , Lymphocytes (%) (Auto) , Monocytes (%) (Auto) , Eosinophils (%) (Auto) , Basophils (%) (Auto) , Neutrophils % (Manual) [Pending], Lymphocytes % (Manual) [Pending], Platelet Estimate [Pending], Platelet Morphology [Pending], Sodium Level 146H, Potassium Level 3.3L, Chloride Level 112H, Carbon Dioxide Level 20L , Anion Gap 14, Blood Urea Nitrogen 54H, Creatinine 1.7H, Estimat Glomerular Filtration Rate , Glucose Level 140H, Calcium Level 8.7, Phosphorus Level 3.4, Magnesium Level 1.9, Total Bilirubin 0.2, Direct Bilirubin < 0.1, Aspartate Amino Transf (AST/SGOT) 15, Alanine Aminotransferase (ALT/SGPT) 10L, Alkaline Phosphatase 76, Total Protein 6.5, Albumin 1.2L Current Medications Medications (Trade) Dose Ordered Sig/Kenisha Route PRN Reason Start Time Stop Time Status Last Admin Dose Admin Acetaminophen (Tylenol) 650 mg Q4H PRN ORAL FEVER 04/12/19 14:15 05/12/19 14:14 Albuterol/ Ipratropium (Albuterol/ Ipratropium) 3 ml Q4H PRN HHN Shortness of Breath 04/12/19 14:15 04/17/19 14:14 Cefepime HCl 1 gm/ Dextrose 55 ml @ 110 mls/hr Q24H IVPB 04/13/19 09:00 04/20/19 08:59 04/15/19 09:04 Clopidogrel Bisulfate (Plavix) 75 mg DAILY ORAL 04/13/19 09:00 05/13/19 08:59 04/13/19 08:57 Dextrose 1,000 ml @ 50 mls/hr Q20H IV 04/14/19 12:30 05/14/19 12:29 04/15/19 00:44 Dextrose (Dextrose 50%) 25 ml Q30M PRN IV Hypoglycemia 04/12/19 19:45 05/12/19 19:44 Dextrose (Dextrose 50%) 50 ml Q30M PRN IV Hypoglycemia 04/12/19 19:45 05/12/19 19:44 Epoetin Bandar (Procrit (for non ESRD use)) 10,000 units FRI-FRI-FRI SUBQ 04/14/19 21:00 05/14/19 20:59 04/14/19 20:11 Hydralazine HCl (Apresoline) 10 mg Q2H PRN IV For High Blood Pressure 04/14/19 16:00 05/14/19 15:59 Insulin Aspart (NovoLOG) BEFORE MEALS AND HS SUBQ 04/12/19 21:00 05/12/19 20:59 04/15/19 05:37 Iron Sucrose 200 mg/Sodium Chloride 120 ml @ 240 mls/hr ONCE ONCE IV 04/15/19 21:00 04/15/19 21:29 Lorazepam (Ativan) 0.5 mg Q6H PRN ORAL For Anxiety 04/13/19 16:00 04/20/19 15:59 Memantine (Namenda) 5 mg BID ORAL 04/13/19 18:00 05/13/19 17:59 04/14/19 08:19 Metoprolol Tartrate (Lopressor) 5 mg EVERY 6 HOURS IVP 04/14/19 18:00 05/14/19 17:59 04/15/19 05:35 Morphine Sulfate (Morphine Sulfate) 2 mg Q4H PRN IVP Severe Pain (Pain Scale 7-10) 04/12/19 14:15 04/19/19 14:14 Ondansetron HCl (Zofran) 4 mg Q6H PRN IVP Nausea & Vomiting 04/12/19 14:15 05/12/19 14:14 Polyethylene Glycol (Miralax) 17 gm DAILYPRN PRN ORAL Constipation 04/12/19 14:15 05/12/19 14:14 Potassium Chloride 100 ml @ 100 mls/hr Q1HR IVPB 04/15/19 09:00 04/15/19 11:59 04/15/19 09:11 Vancomycin HCl (Vanco rx to dose) 1 ea DAILY PRN MISC Per rx protocol 04/12/19 17:30 05/12/19 17:29 Tony Springer MD Apr 15, 2019 10:35
--- NOTE | 2019-04-15 11:57 | General Progress Note ---
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 ICD Codes: E11.22 - Type 2 diabetes mellitus with diabetic chronic kidney disease; N18.4 - Chronic kidney disease, stage 4 (severe) SNOMED: 93955464, 924161782, 060681142 Status: stable, progressing Assessment/Plan: pt diet abx o2 pulm tx neuro psyc eval cbc bmp am Subjective Constitutional: Reports: weakness Allergies: Coded Allergies: No Known Allergies (Unverified , 04/12/19) All Systems: reviewed and negative except above Subjective o2nc sleep Objective Last 24 Hour Vital Signs Date Time Temp Pulse Resp B/P (MAP) Pulse Ox O2 Delivery O2 Flow Rate FiO2 04/15/19 08:00 Nasal Cannula 2.0 04/15/19 08:00 98.1 94 28 126/68 (87) 98 04/15/19 08:00 30 04/15/19 08:00 97 04/15/19 07:32 98 Nasal Cannula 2.0 28 04/15/19 05:42 96 04/15/19 05:37 106 04/15/19 05:35 106 129/63 04/15/19 05:34 106 129/63 (85) 04/15/19 05:17 105 24 99 Full Face 30 04/15/19 04:00 98.4 79 22 136/75 (95) 99 04/15/19 04:00 2.0 04/15/19 04:00 Nasal Cannula 2.0 04/15/19 04:00 89 04/15/19 03:13 94 23 98 Full Face 30 04/15/19 01:21 102 23 99 Full Face 30 04/15/19 00:26 91 04/15/19 00:14 89 04/15/19 00:13 88 143/75 04/15/19 00:00 Nasal Cannula 2.0 04/15/19 00:00 98.6 88 20 143/75 (97) 97 04/15/19 00:00 2.0 04/15/19 00:00 88 04/14/19 22:53 100 24 99 Full Face 30 04/14/19 20:00 84 04/14/19 20:00 Nasal Cannula 2.0 04/14/19 20:00 98.1 72 20 131/72 (91) 100 04/14/19 20:00 2.0 04/14/19 19:05 98 Nasal Cannula 2.0 28 04/14/19 17:04 78 117/69 04/14/19 16:00 98.4 78 22 117/69 (85) 100 04/14/19 16:00 2.0 04/14/19 16:00 Nasal Cannula 2.0 04/14/19 15:52 77 04/14/19 14:00 109/76 04/14/19 12:00 98.2 90 24 121/75 (90) 100 04/14/19 12:00 92 04/14/19 12:00 Nasal Cannula 2.0 04/14/19 12:00 2.0 Intake and Output 04/14/19 04/15/19 18:59 06:59 Intake Total 930.000 ml 562 ml Output Total 500 ml 625 ml Balance 430.000 ml -63 ml Intake IV Total 930.000 ml 562 ml Output Urine Total 500 ml 625 ml # Bowel Movements 4 4 Laboratory Tests 04/15/19 04:00: White Blood Count 15.3H, Red Blood Count 3.25L, Hemoglobin 8.9L, Hematocrit 28.1L, Mean Corpuscular Volume 86, Mean Corpuscular Hemoglobin 27.5, Mean Corpuscular Hemoglobin Concent 31.8L, Red Cell Distribution Width 14.2, Platelet Count 196, Mean Platelet Volume 8.6, Neutrophils (%) (Auto) , Lymphocytes (%) (Auto) , Monocytes (%) (Auto) , Eosinophils (%) (Auto) , Basophils (%) (Auto) , Differential Total Cells Counted 100, Neutrophils % ( Manual) 84H, Lymphocytes % (Manual) 12L, Monocytes % (Manual) 4, Eosinophils % ( Manual) 0, Basophils % (Manual) 0, Band Neutrophils 0, Platelet Estimate Adequate, Platelet Morphology Normal, Hypochromasia 2+, Anisocytosis 1+, Sodium Level 146H, Potassium Level 3.3L, Chloride Level 112H, Carbon Dioxide Level 20L , Anion Gap 14, Blood Urea Nitrogen 54H, Creatinine 1.7H, Estimat Glomerular Filtration Rate , Glucose Level 140H, Calcium Level 8.7, Phosphorus Level 3.4, Magnesium Level 1.9, Total Bilirubin 0.2, Direct Bilirubin < 0.1, Aspartate Amino Transf (AST/SGOT) 15, Alanine Aminotransferase (ALT/SGPT) 10L, Alkaline Phosphatase 76, Total Protein 6.5, Albumin 1.2L Height (Feet): 5 Height (Inches): 3.00 Weight (Pounds): 168 General Appearance: lethargic EENT: normal ENT inspection Neck: normal alignment Cardiovascular: normal peripheral pulses, normal rate, regular rhythm Respiratory/Chest: chest wall non-tender, lungs clear, no respiratory distress Abdomen: normal bowel sounds, non tender, soft Extremities: normal inspection Edema: no edema noted Arm (L), no edema noted Arm (R), no edema noted Leg (L), no edema noted Leg (R), no edema noted Pedal (L), no edema noted Pedal (R), no edema noted Generalized Neurologic: motor weakness Skin: normal pigmentation, warm/dry Jama Keating DO Apr 15, 2019 11:57
--- NOTE | 2019-04-15 12:00 | NUR ---
NURSE NOTES: pt in no resp distress stable,son at bedside.
--- NOTE | 2019-04-15 13:13 | NUR ---
*-* INSURANCE *-* UPDATED CLINICALS HAVE BEEN FAXED TO: [facility] white# [id number] P: [phone] F: [phone] (FAX CLINICALS)
--- NOTE | 2019-04-15 14:11 | NUR ---
CASE MANAGEMENT: REVIEW 04/15/2019 SI:SEPSIS. T 99.5 HR 102 RR 28 B/P 130/72 SATS 98% ON 2L/NC WBC 15.3 NA 146 K 3.3 CL 112 CO2 20 BUN 54 CR 1.7 GLU 140 ALT 10 STOOL OB (+) IS: IVF @ 100 ml/HR HYDRALAZINE PO Q6H LOPRESSOR PO Q12H NAMENDA PO BID PLAVIX PO QD INSULIN ASPART SUBQ AC/HS VENOFER IV X1 CEFEPIME IV Q24H SDU STATUS DCP: PATIENT TO BE DISCHARGED TO SNF ONCE MEDICALLY CLEARED. PLAN OF CARE: [facility]
--- NOTE | 2019-04-15 14:21 | NUR ---
DISCHARGE PLANNING: NOTE CLINICALS FAXED TO [facility] FOR EVAL Addendum: 04/16/19 at 1027 by Rosa Kowalski CM PER LILIANA PATIENT WILL NOT QUALIFY FOR [facility]
--- NOTE | 2019-04-15 15:30 | Progress Note ---
DATE: 04/15/2019 SUBJECTIVE: This is a 79-year-old female patient with sepsis. She has confusion, disorganized thought process, and decline in cognition below baseline. That is why, her attending physician has requested daily psychiatric consultation for this patient. She still has altered mental status, confusion worsened by stress of her medical illness. MENTAL STATUS EXAMINATION: This is a female patient who is 79 years old. Her appearance is disheveled. Her attitude, irritable and agitated. Her affect, guarded and restricted. Intellect poor. Mood depressed and anxious. Motor activity, psychomotor agitation. Attention span is poor. Orientation x2. Speech is low volume and slurred. Thought process, disorganized, illogical. Insight, judgment is poor. DIAGNOSIS: Major depressive disorder, mild, recurrent with psychotic features, rule out dementia with psychosis. PLAN: Treat this patient with Namenda to prevent any further decline in cognition. Provide her with insight-oriented psychotherapy 20 minutes to help her more insight into psychiatric illness better behavior on the unit. Chart reviewed. Discussed with staff. Seen and assessed at bedside. Omar Glover M.D. DR: DEB JOB#: [id number] CC:
--- NOTE | 2019-04-15 15:37 | Nephrology Progress Note ---
Assessment/Plan Problem List: (1) Renal failure (ARF), acute on chronic (2) Diabetic nephropathy (3) Sepsis (4) Pneumonia (5) Right hemiplegia (6) Anemia in chronic kidney disease (CKD) (7) Pulmonary hypertension Assessment Renal failure; - Pre Renal - ? Underlying Renal Anemia Pneumonia / respiratory failure ? aspiration prone Sepsis elevated Troponin UTI HyperGlycemia / DM Right Esvin HTN Plan K Phos IV venofer Folate 24 H urine protein check Fraga Hydrate BP and BS control urine studies slow hydrate kidney MAIKEL results noted: No Garrison 2D echo Noted visualized except distal setum and inferiro wall hypokinesis Left ventricular ejection fraction estimated to be 55-60 %. avoid Nephrotoxics per orders Subjective ROS Limited/Unobtainable: No Constitutional: Reports: malaise, weakness Objective Objective Last 24 Hour Vital Signs Date Time Temp Pulse Resp B/P (MAP) Pulse Ox O2 Delivery O2 Flow Rate FiO2 04/15/19 12:19 102 130/72 04/15/19 12:00 99.5 102 130/72 (91) 04/15/19 12:00 98 04/15/19 12:00 Nasal Cannula 2.0 04/15/19 12:00 2.0 04/15/19 08:00 Nasal Cannula 2.0 04/15/19 08:00 98.1 94 28 126/68 (87) 98 04/15/19 08:00 30 04/15/19 08:00 97 04/15/19 07:32 98 Nasal Cannula 2.0 28 04/15/19 05:42 96 04/15/19 05:37 106 04/15/19 05:35 106 129/63 04/15/19 05:34 106 129/63 (85) 04/15/19 05:17 105 24 99 Full Face 30 04/15/19 04:00 98.4 79 22 136/75 (95) 99 04/15/19 04:00 2.0 04/15/19 04:00 Nasal Cannula 2.0 04/15/19 04:00 89 04/15/19 03:13 94 23 98 Full Face 30 04/15/19 01:21 102 23 99 Full Face 30 04/15/19 00:26 91 04/15/19 00:14 89 04/15/19 00:13 88 143/75 04/15/19 00:00 Nasal Cannula 2.0 04/15/19 00:00 98.6 88 20 143/75 (97) 97 04/15/19 00:00 2.0 04/15/19 00:00 88 04/14/19 22:53 100 24 99 Full Face 30 04/14/19 20:00 84 04/14/19 20:00 Nasal Cannula 2.0 04/14/19 20:00 98.1 72 20 131/72 (91) 100 04/14/19 20:00 2.0 04/14/19 19:05 98 Nasal Cannula 2.0 28 04/14/19 17:04 78 117/69 04/14/19 16:00 98.4 78 22 117/69 (85) 100 04/14/19 16:00 2.0 04/14/19 16:00 Nasal Cannula 2.0 04/14/19 15:52 77 Intake and Output 04/14/19 04/15/19 18:59 06:59 Intake Total 930.000 ml 562 ml Output Total 500 ml 625 ml Balance 430.000 ml -63 ml Intake IV Total 930.000 ml 562 ml Output Urine Total 500 ml 625 ml # Bowel Movements 4 4 Laboratory Tests 04/15/19 04:00: White Blood Count 15.3H, Red Blood Count 3.25L, Hemoglobin 8.9L, Hematocrit 28.1L, Mean Corpuscular Volume 86, Mean Corpuscular Hemoglobin 27.5, Mean Corpuscular Hemoglobin Concent 31.8L, Red Cell Distribution Width 14.2, Platelet Count 196, Mean Platelet Volume 8.6, Neutrophils (%) (Auto) , Lymphocytes (%) (Auto) , Monocytes (%) (Auto) , Eosinophils (%) (Auto) , Basophils (%) (Auto) , Differential Total Cells Counted 100, Neutrophils % ( Manual) 84H, Lymphocytes % (Manual) 12L, Monocytes % (Manual) 4, Eosinophils % ( Manual) 0, Basophils % (Manual) 0, Band Neutrophils 0, Platelet Estimate Adequate, Platelet Morphology Normal, Hypochromasia 2+, Anisocytosis 1+, Sodium Level 146H, Potassium Level 3.3L, Chloride Level 112H, Carbon Dioxide Level 20L , Anion Gap 14, Blood Urea Nitrogen 54H, Creatinine 1.7H, Estimat Glomerular Filtration Rate , Glucose Level 140H, Calcium Level 8.7, Phosphorus Level 3.4, Magnesium Level 1.9, Total Bilirubin 0.2, Direct Bilirubin < 0.1, Aspartate Amino Transf (AST/SGOT) 15, Alanine Aminotransferase (ALT/SGPT) 10L, Alkaline Phosphatase 76, Total Protein 6.5, Albumin 1.2L Height (Feet): 5 Height (Inches): 3.00 Weight (Pounds): 168 General Appearance: no apparent distress, lethargic Cardiovascular: tachycardia Respiratory/Chest: decreased breath sounds Abdomen: distended Wally Spivey MD Apr 15, 2019 15:37
--- NOTE | 2019-04-15 15:37 | Hematology/Onc Progress Note ---
Assessment/Plan Assessment/Plan ASSESSMENT AND RECOMMENDATIONS # Anemia of chronic disease due to underlying chronic medical issues, multifactorial --> Anemia workup has been ordered and reviewed. --> Ferritin 274, iron 6, tibc 143 --> No evidence of hemolysis is noted, peripheral smear has been reviewed. --> Hgb goal >7. Transfuse prn. --> Epogen or iron at this time is not particularly indicated --> Medications have been reviewed --> low threshold for gi evaluation in case has occult + # Lung mass. First noted on CXR. --> Ct chest has been ordered and reviewed. CT reveals no mass. --> hold off on any tumor marker testing --> as per id and pulm mino, appreciate RECS # Leukocytosis/elevated white blood cell count, unspecified likely related to underlying sepsis due to pna confirmed by CT chest and CXR --> have reviewed peripheral smear and bandemia/neutrophilia noted --> continue antibiotics if they have been started by ID team --> monitor for resolution --> trend 25-->20-->15k # Respiratory distress. BiPAP per Pulmonary. # Sepsis d/t pna and uti. --> Antibiotics per Infectious Disease. # Renal failure. Nephro is following, appreciate recs # Elevated troponin. Recs per cardiology # Malnutrition. --> Dietary to follow. The time this note is entered does not reflect the time the patient was examined. I greatly appreciate the consultation. Subjective Constitutional: Denies: no symptoms, chills, fever, malaise, weakness, other HEENT: Denies: no symptoms, eye pain, blurred vision, tearing, double vision, ear pain, ear discharge, nose pain, nose congestion, throat pain, throat swelling, mouth pain, mouth swelling, other Cardiovascular: Denies: no symptoms, chest pain, edema, irregular heart rate, lightheadedness, palpitations, syncope, other Respiratory: Denies: no symptoms, cough, shortness of breath, SOB with excertion, SOB at rest, sputum, wheezing, other Gastrointestinal/Abdominal: Denies: no symptoms, abdomen distended, abdominal pain, black stools, tarry stools, blood in stool, constipated, diarrhea, difficulty swallowing, nausea, poor appetite, poor fluid intake, rectal bleeding , vomiting, other Genitourinary: Denies: no symptoms, burning, discharge, frequency, flank pain, hematuria, incontinence, pain, urgency, other Neurologic/Psychiatric: Denies: no symptoms, anxiety, depressed, emotional problems, headache, numbness, paresthesia, pre-existing deficit, seizure, tingling, tremors, weakness, other Endocrine: Denies: no symptoms, excessive sweating, flushing, intolerance to cold, intolerance to heat, increased hunger, increased thirst, increased urine, unexplained weight gain, unexplained weight loss, other Allergies: Coded Allergies: No Known Allergies (Unverified , 04/12/19) Subjective 04/15: no events reported, no f/c, on abx, seen by id, pulm, hgb remains stable Objective Objective Current Medications Medications (Trade) Dose Ordered Sig/Kenisha Route PRN Reason Start Time Stop Time Status Last Admin Dose Admin Acetaminophen (Tylenol) 650 mg Q4H PRN ORAL FEVER 04/12/19 14:15 05/12/19 14:14 Albuterol/ Ipratropium (Albuterol/ Ipratropium) 3 ml Q4H PRN HHN Shortness of Breath 04/12/19 14:15 04/17/19 14:14 Cefepime HCl 1 gm/ Dextrose 55 ml @ 110 mls/hr Q24H IVPB 04/13/19 09:00 04/20/19 08:59 04/15/19 09:04 Clopidogrel Bisulfate (Plavix) 75 mg DAILY ORAL 04/13/19 09:00 05/13/19 08:59 04/13/19 08:57 Dextrose 1,000 ml @ 50 mls/hr Q20H IV 04/14/19 12:30 05/14/19 12:29 04/15/19 00:44 Dextrose (Dextrose 50%) 25 ml Q30M PRN IV Hypoglycemia 04/12/19 19:45 05/12/19 19:44 Dextrose (Dextrose 50%) 50 ml Q30M PRN IV Hypoglycemia 04/12/19 19:45 05/12/19 19:44 Epoetin Bandar (Procrit (for non ESRD use)) 10,000 units MON-WED-FRI SUBQ 04/14/19 21:00 05/14/19 20:59 04/14/19 20:11 Hydralazine HCl (Apresoline) 10 mg Q2H PRN IV For High Blood Pressure 04/14/19 16:00 05/14/19 15:59 Insulin Aspart (NovoLOG) BEFORE MEALS AND HS SUBQ 04/12/19 21:00 05/12/19 20:59 04/15/19 05:37 Iron Sucrose 200 mg/Sodium Chloride 120 ml @ 240 mls/hr ONCE ONCE IV 04/15/19 21:00 04/15/19 21:29 Lorazepam (Ativan) 0.5 mg Q6H PRN ORAL For Anxiety 04/13/19 16:00 04/20/19 15:59 Memantine (Namenda) 5 mg BID ORAL 04/13/19 18:00 05/13/19 17:59 04/14/19 08:19 Metoprolol Tartrate (Lopressor) 5 mg EVERY 6 HOURS IVP 04/14/19 18:00 05/14/19 17:59 04/15/19 12:19 Morphine Sulfate (Morphine Sulfate) 2 mg Q4H PRN IVP Severe Pain (Pain Scale 7-10) 04/12/19 14:15 04/19/19 14:14 Ondansetron HCl (Zofran) 4 mg Q6H PRN IVP Nausea & Vomiting 04/12/19 14:15 05/12/19 14:14 Polyethylene Glycol (Miralax) 17 gm DAILYPRN PRN ORAL Constipation 04/12/19 14:15 05/12/19 14:14 Vancomycin HCl (Vanco rx to dose) 1 ea DAILY PRN MISC Per rx protocol 04/12/19 17:30 05/12/19 17:29 Last 24 Hour Vital Signs Date Time Temp Pulse Resp B/P (MAP) Pulse Ox O2 Delivery O2 Flow Rate FiO2 04/15/19 12:19 102 130/72 04/15/19 12:00 99.5 102 130/72 (91) 04/15/19 12:00 98 04/15/19 12:00 Nasal Cannula 2.0 04/15/19 12:00 2.0 04/15/19 08:00 Nasal Cannula 2.0 04/15/19 08:00 98.1 94 28 126/68 (87) 98 04/15/19 08:00 30 04/15/19 08:00 97 04/15/19 07:32 98 Nasal Cannula 2.0 28 04/15/19 05:42 96 04/15/19 05:37 106 04/15/19 05:35 106 129/63 04/15/19 05:34 106 129/63 (85) 04/15/19 05:17 105 24 99 Full Face 30 04/15/19 04:00 98.4 79 22 136/75 (95) 99 04/15/19 04:00 2.0 04/15/19 04:00 Nasal Cannula 2.0 04/15/19 04:00 89 04/15/19 03:13 94 23 98 Full Face 30 04/15/19 01:21 102 23 99 Full Face 30 04/15/19 00:26 91 04/15/19 00:14 89 04/15/19 00:13 88 143/75 04/15/19 00:00 Nasal Cannula 2.0 04/15/19 00:00 98.6 88 20 143/75 (97) 97 04/15/19 00:00 2.0 04/15/19 00:00 88 04/14/19 22:53 100 24 99 Full Face 30 04/14/19 20:00 84 04/14/19 20:00 Nasal Cannula 2.0 04/14/19 20:00 98.1 72 20 131/72 (91) 100 04/14/19 20:00 2.0 04/14/19 19:05 98 Nasal Cannula 2.0 28 04/14/19 17:04 78 117/69 04/14/19 16:00 98.4 78 22 117/69 (85) 100 04/14/19 16:00 2.0 04/14/19 16:00 Nasal Cannula 2.0 04/14/19 15:52 77 04/14/19 14:00 109/76 04/14/19 12:00 98.2 90 24 121/75 (90) 100 04/14/19 12:00 92 04/14/19 12:00 Nasal Cannula 2.0 04/14/19 12:00 2.0 04/14/19 11:37 121/75 04/14/19 11:15 88 20 96 2.0 28 04/14/19 08:19 90 115/79 04/14/19 08:00 87 04/14/19 08:00 99.0 90 24 115/79 (91) 99 04/14/19 07:55 Nasal Cannula 2.0 04/14/19 07:54 2.0 04/14/19 07:10 98 24 99 2.0 28 04/14/19 05:58 122/68 04/14/19 05:16 108 32 98 Full Face 30 04/14/19 04:00 98.2 75 20 119/68 (85) 98 04/14/19 04:00 Bi-pap 04/14/19 04:00 30 04/14/19 04:00 86 04/14/19 03:30 86 26 99 Full Face 30 04/14/19 01:30 72 12 98 Facial 30 04/14/19 00:22 120/73 04/14/19 00:00 98.1 75 20 118/69 (85) 99 04/14/19 00:00 Bi-pap 04/14/19 00:00 76 04/13/19 22:30 86 27 98 Facial 30 04/13/19 20:59 89 119/68 04/13/19 20:00 2.0 04/13/19 20:00 Nasal Cannula 2.0 04/13/19 20:00 83 04/13/19 20:00 98.9 89 24 119/68 (85) 99 04/13/19 17:07 122/70 04/13/19 16:00 Nasal Cannula 2.0 04/13/19 16:00 98.5 94 20 122/70 (87) 100 04/13/19 15:50 2.0 04/13/19 15:49 77 Intake and Output 04/14/19 04/15/19 18:59 06:59 Intake Total 930.000 ml 562 ml Output Total 500 ml 625 ml Balance 430.000 ml -63 ml Intake IV Total 930.000 ml 562 ml Output Urine Total 500 ml 625 ml # Bowel Movements 4 4 Labs Test 04/13/19 03:45 04/13/19 07:26 04/13/19 13:05 04/14/19 03:30 White Blood Count 22.0 K/UL (4.8-10.8) 17.0 K/UL (4.8-10.8) Red Blood Count 2.84 M/UL (4.20-5.40) 2.69 M/UL (4.20-5.40) Hemoglobin 8.0 G/DL (12.0-16.0) 7.4 G/DL (12.0-16.0) Hematocrit 24.9 % (37.0-47.0) 23.6 % (37.0-47.0) Mean Corpuscular Volume 88 FL (80-99) 88 FL (80-99) Mean Corpuscular Hemoglobin 28.2 PG (27.0-31.0) 27.6 PG (27.0-31.0) Mean Corpuscular Hemoglobin Concent 32.1 G/DL (32.0-36.0) 31.4 G/DL (32.0-36.0) Red Cell Distribution Width 14.3 % (11.6-14.8) 14.4 % (11.6-14.8) Platelet Count 221 K/UL (150-450) 196 K/UL (150-450) Mean Platelet Volume 8.8 FL (6.5-10.1) 9.4 FL (6.5-10.1) Neutrophils (%) (Auto) % (45.0-75.0) % (45.0-75.0) Lymphocytes (%) (Auto) % (20.0-45.0) % (20.0-45.0) Monocytes (%) (Auto) % (1.0-10.0) % (1.0-10.0) Eosinophils (%) (Auto) % (0.0-3.0) % (0.0-3.0) Basophils (%) (Auto) % (0.0-2.0) % (0.0-2.0) Differential Total Cells Counted 100 100 Neutrophils % (Manual) 81 % (45-75) 89 % (45-75) Lymphocytes % (Manual) 14 % (20-45) 4 % (20-45) Monocytes % (Manual) 2 % (1-10) 3 % (1-10) Eosinophils % (Manual) 1 % (0-3) 0 % (0-3) Basophils % (Manual) 0 % (0-2) 0 % (0-2) Band Neutrophils 2 % (0-8) 4 % (0-8) Platelet Estimate Adequate Adequate Platelet Morphology Normal Normal Polychromasia 1+ Hypochromasia 2+ 1+ Anisocytosis 1+ Spherocytes 1+ Sodium Level 158 MMOL/L (136-145) 150 MMOL/L (136-145) Potassium Level 4.2 MMOL/L (3.5-5.1) 3.6 MMOL/L (3.5-5.1) Chloride Level 122 MMOL/L (98-107) 115 MMOL/L (98-107) Carbon Dioxide Level 21 MMOL/L (21-32) 21 MMOL/L (21-32) Anion Gap 15 mmol/L (5-15) 14 mmol/L (5-15) Blood Urea Nitrogen 77 mg/dL (7-18) 66 mg/dL (7-18) Creatinine 2.4 MG/DL (0.55-1.30) 2.1 MG/DL (0.55-1.30) Estimat Glomerular Filtration Rate mL/min (>60) mL/min (>60) Glucose Level 137 MG/DL (74-106) 190 MG/DL (74-106) Hemoglobin A1c 8.1 % (4.3-6.0) Uric Acid 9.7 MG/DL (2.6-7.2) 8.8 MG/DL (2.6-7.2) Calcium Level 8.8 MG/DL (8.5-10.1) 8.4 MG/DL (8.5-10.1) Phosphorus Level 4.4 MG/DL (2.5-4.9) 3.8 MG/DL (2.5-4.9) Magnesium Level 1.9 MG/DL (1.8-2.4) 1.9 MG/DL (1.8-2.4) Iron Level 6 ug/dL (50-175) 10 ug/dL (50-175) Total Iron Binding Capacity 143 ug/dL (250-450) 109 ug/dL (250-450) Percent Iron Saturation 4 % (15-50) 9 % (15-50) Unsaturated Iron Binding 137 ug/dL (112-346) 99 ug/dL (112-346) Ferritin 274 NG/ML (8-388) Total Bilirubin 0.2 MG/DL (0.2-1.0) 0.2 MG/DL (0.2-1.0) Gamma Glutamyl Transpeptidase 18 U/L (5-85) Aspartate Amino Transf (AST/SGOT) 18 U/L (15-37) 13 U/L (15-37) Alanine Aminotransferase (ALT/SGPT) 7 U/L (12-78) < 6 U/L (12-78) Alkaline Phosphatase 73 U/L (46-116) 84 U/L (46-116) Total Creatine Kinase 35 U/L (26-308) Troponin I 0.184 ng/mL (0.000-0.056) 0.084 ng/mL (0.000-0.056) C-Reactive Protein, Quantitative 57.5 mg/dL (0.00-0.90) Pro-B-Type Natriuretic Peptide 94359 pg/mL (0-125) Total Protein 6.6 G/DL (6.4-8.2) 6.5 G/DL (6.4-8.2) Albumin 1.6 G/DL (3.4-5.0) 1.2 G/DL (3.4-5.0) Globulin 5.0 g/dL 5.3 g/dL Albumin/Globulin Ratio 0.3 (1.0-2.7) 0.2 (1.0-2.7) Triglycerides Level 73 MG/DL (30-150) Cholesterol Level 83 MG/DL (< 200) LDL Cholesterol 28 mg/dL (<100) HDL Cholesterol 23 MG/DL (40-60) Cholesterol/HDL Ratio 3.6 (3.3-4.4) Vitamin B12 Level 1534 PG/ML (193-986) > 2000 PG/ML (193-986) Folate 6.7 NG/ML (8.6-58.9) 4.7 NG/ML (8.6-58.9) Thyroid Stimulating Hormone (TSH) 2.835 uiU/mL (0.358-3.740) Arterial Blood pH 7.391 (7.350-7.450) Arterial Blood Partial Pressure CO2 35.0 mmHg (35.0-45.0) Arterial Blood Partial Pressure O2 96.1 mmHg (75.0-100.0) Arterial Blood HCO3 20.8 mmol/L (22.0-26.0) Arterial Blood Oxygen Saturation 96.6 % (95-100) Arterial Blood Base Excess -3.7 (-2-2) Marlo Test Positive Urine Color Pale yellow Urine Appearance Slightly cloudy Urine pH 5 (4.5-8.0) Urine Specific [place] 1.015 (1.005-1.035) Urine Protein 3+ (NEGATIVE) Urine Glucose (UA) Negative (NEGATIVE) Urine Ketones Negative (NEGATIVE) Urine Blood 4+ (NEGATIVE) Urine Nitrite Negative (NEGATIVE) Urine Bilirubin Negative (NEGATIVE) Urine Urobilinogen Normal MG/DL (0.0-1.0) Urine Leukocyte Esterase Negative (NEGATIVE) Urine RBC 40-60 /HPF (0 - 2) Urine WBC 2-4 /HPF (0 - 2) Urine Squamous Epithelial Cells Many /LPF (NONE/OCC) Urine Amorphous Sediment Many /LPF (NONE) Urine Bacteria Few /HPF (NONE) Urine Granular Casts 2-4 /LPF (NONE) Urine Fine Granular Casts 2-4 /LPF (NONE) Urine Eosinophils None seen (NONE SEEN) Urine Osmolality 432 mOsm/kg (429-449) Urine Random Sodium 86 mmol/L (20-110) Erythrocyte Sedimentation Rate 137 MM/HR (0-30) Reticulocyte Count 0.4 % (0.5-2.0) Prothrombin Time 12.7 SEC (9.30-11.50) Prothromb Time International Ratio 1.2 (0.9-1.1) Activated Partial Thromboplast Time 37 SEC (23-33) Lactate Dehydrogenase 224 U/L (81-234) Carcinoembryonic Antigen 2.5 ng/mL (0.0-4.7) Random Vancomycin Level 10.5 ug/mL Test 04/14/19 08:30 04/15/19 04:00 Stool Occult Blood Positive (NEGATIVE) White Blood Count 15.3 K/UL (4.8-10.8) Red Blood Count 3.25 M/UL (4.20-5.40) Hemoglobin 8.9 G/DL (12.0-16.0) Hematocrit 28.1 % (37.0-47.0) Mean Corpuscular Volume 86 FL (80-99) Mean Corpuscular Hemoglobin 27.5 PG (27.0-31.0) Mean Corpuscular Hemoglobin Concent 31.8 G/DL (32.0-36.0) Red Cell Distribution Width 14.2 % (11.6-14.8) Platelet Count 196 K/UL (150-450) Mean Platelet Volume 8.6 FL (6.5-10.1) Neutrophils (%) (Auto) % (45.0-75.0) Lymphocytes (%) (Auto) % (20.0-45.0) Monocytes (%) (Auto) % (1.0-10.0) Eosinophils (%) (Auto) % (0.0-3.0) Basophils (%) (Auto) % (0.0-2.0) Differential Total Cells Counted 100 Neutrophils % (Manual) 84 % (45-75) Lymphocytes % (Manual) 12 % (20-45) Monocytes % (Manual) 4 % (1-10) Eosinophils % (Manual) 0 % (0-3) Basophils % (Manual) 0 % (0-2) Band Neutrophils 0 % (0-8) Platelet Estimate Adequate Platelet Morphology Normal Hypochromasia 2+ Anisocytosis 1+ Sodium Level 146 MMOL/L (136-145) Potassium Level 3.3 MMOL/L (3.5-5.1) Chloride Level 112 MMOL/L (98-107) Carbon Dioxide Level 20 MMOL/L (21-32) Anion Gap 14 mmol/L (5-15) Blood Urea Nitrogen 54 mg/dL (7-18) Creatinine 1.7 MG/DL (0.55-1.30) Estimat Glomerular Filtration Rate mL/min (>60) Glucose Level 140 MG/DL (74-106) Calcium Level 8.7 MG/DL (8.5-10.1) Phosphorus Level 3.4 MG/DL (2.5-4.9) Magnesium Level 1.9 MG/DL (1.8-2.4) Total Bilirubin 0.2 MG/DL (0.2-1.0) Direct Bilirubin < 0.1 MG/DL (0.0-0.3) Aspartate Amino Transf (AST/SGOT) 15 U/L (15-37) Alanine Aminotransferase (ALT/SGPT) 10 U/L (12-78) Alkaline Phosphatase 76 U/L (46-116) Total Protein 6.5 G/DL (6.4-8.2) Albumin 1.2 G/DL (3.4-5.0) Height (Feet): 5 Height (Inches): 3.00 Weight (Pounds): 168 Objective PHYSICAL EXAMINATION: GENERAL: BiPAP in place, sleeping in bed, slight short of breath. VITAL SIGNS: Have been reviewed CARDIOVASCULAR: No murmur. LUNGS: Poor exchange. ABDOMEN: Bowel sounds distant. EXTREMITIES: No cyanosis, clubbing, or edema. NEUROLOGIC: Patient is flaccid in bed, probably sedated. Steven Norton MD Apr 15, 2019 15:36
--- NOTE | 2019-04-15 16:43 | Cardiac Electrophysiology PN ---
Assessment/Plan Assessment/Plan 1. Sinus tachycardia, likely due to combination of dehydration and azotemia. Getting gentle hydration by Dr. Spivye. No fib or SVT 2. Sepsis. White count 25,000. On IV abx 3. Anemia. 4. History of CVA with hemiplegia. 5. Nonverbal status. 6. Renal failure. 7. Coronary artery disease. On metoprolol 5 iv q6hr and Plavix 75 mg daily 8. Dysphagia. PEG pending family consent. SHAUN RN Subjective Subjective NPO, s/p one unit of PRBC. Family still undecided re PEG Objective Last 24 Hour Vital Signs Date Time Temp Pulse Resp B/P (MAP) Pulse Ox O2 Delivery O2 Flow Rate FiO2 04/15/19 12:19 102 130/72 04/15/19 12:00 99.5 102 130/72 (91) 04/15/19 12:00 98 04/15/19 12:00 Nasal Cannula 2.0 04/15/19 12:00 2.0 04/15/19 08:00 Nasal Cannula 2.0 04/15/19 08:00 98.1 94 28 126/68 (87) 98 04/15/19 08:00 30 04/15/19 08:00 97 04/15/19 07:32 98 Nasal Cannula 2.0 28 04/15/19 05:42 96 04/15/19 05:37 106 04/15/19 05:35 106 129/63 04/15/19 05:34 106 129/63 (85) 04/15/19 05:17 105 24 99 Full Face 30 04/15/19 04:00 98.4 79 22 136/75 (95) 99 04/15/19 04:00 2.0 04/15/19 04:00 Nasal Cannula 2.0 04/15/19 04:00 89 04/15/19 03:13 94 23 98 Full Face 30 04/15/19 01:21 102 23 99 Full Face 30 04/15/19 00:26 91 04/15/19 00:14 89 04/15/19 00:13 88 143/75 04/15/19 00:00 Nasal Cannula 2.0 04/15/19 00:00 98.6 88 20 143/75 (97) 97 04/15/19 00:00 2.0 04/15/19 00:00 88 04/14/19 22:53 100 24 99 Full Face 30 04/14/19 20:00 84 04/14/19 20:00 Nasal Cannula 2.0 04/14/19 20:00 98.1 72 20 131/72 (91) 100 04/14/19 20:00 2.0 04/14/19 19:05 98 Nasal Cannula 2.0 28 04/14/19 17:04 78 117/69 Intake and Output 04/14/19 04/15/19 18:59 06:59 Intake Total 930.000 ml 562 ml Output Total 500 ml 625 ml Balance 430.000 ml -63 ml Intake IV Total 930.000 ml 562 ml Output Urine Total 500 ml 625 ml # Bowel Movements 4 4 Laboratory Tests Test 04/15/19 04:00 White Blood Count 15.3 K/UL (4.8-10.8) H Red Blood Count 3.25 M/UL (4.20-5.40) L Hemoglobin 8.9 G/DL (12.0-16.0) L Hematocrit 28.1 % (37.0-47.0) L Mean Corpuscular Volume 86 FL (80-99) Mean Corpuscular Hemoglobin 27.5 PG (27.0-31.0) Mean Corpuscular Hemoglobin Concent 31.8 G/DL (32.0-36.0) L Red Cell Distribution Width 14.2 % (11.6-14.8) Platelet Count 196 K/UL (150-450) Mean Platelet Volume 8.6 FL (6.5-10.1) Neutrophils (%) (Auto) % (45.0-75.0) Lymphocytes (%) (Auto) % (20.0-45.0) Monocytes (%) (Auto) % (1.0-10.0) Eosinophils (%) (Auto) % (0.0-3.0) Basophils (%) (Auto) % (0.0-2.0) Differential Total Cells Counted 100 Neutrophils % (Manual) 84 % (45-75) H Lymphocytes % (Manual) 12 % (20-45) L Monocytes % (Manual) 4 % (1-10) Eosinophils % (Manual) 0 % (0-3) Basophils % (Manual) 0 % (0-2) Band Neutrophils 0 % (0-8) Platelet Estimate Adequate Platelet Morphology Normal Hypochromasia 2+ Anisocytosis 1+ Sodium Level 146 MMOL/L (136-145) H Potassium Level 3.3 MMOL/L (3.5-5.1) L Chloride Level 112 MMOL/L (98-107) H Carbon Dioxide Level 20 MMOL/L (21-32) L Anion Gap 14 mmol/L (5-15) Blood Urea Nitrogen 54 mg/dL (7-18) H Creatinine 1.7 MG/DL (0.55-1.30) H Estimat Glomerular Filtration Rate mL/min (>60) Glucose Level 140 MG/DL (74-106) H Calcium Level 8.7 MG/DL (8.5-10.1) Phosphorus Level 3.4 MG/DL (2.5-4.9) Magnesium Level 1.9 MG/DL (1.8-2.4) Total Bilirubin 0.2 MG/DL (0.2-1.0) Direct Bilirubin < 0.1 MG/DL (0.0-0.3) Aspartate Amino Transf (AST/SGOT) 15 U/L (15-37) Alanine Aminotransferase (ALT/SGPT) 10 U/L (12-78) L Alkaline Phosphatase 76 U/L (46-116) Total Protein 6.5 G/DL (6.4-8.2) Albumin 1.2 G/DL (3.4-5.0) L Microbiology Date/Time Source Procedure Growth Status 04/13/19 08:15 Sputum Gram Stain - Final Complete 04/13/19 08:15 Sputum Culture - Final Sugar Albicans Complete Objective HEAD AND NECK: Showed no JVD. LUNGS: Coarse rhonchi bilaterally. CARDIOVASCULAR: Regular S1 and S2 with no gallop. ABDOMEN: Soft. EXTREMITIES: No pitting edema. Claude Pena MD Apr 15, 2019 16:43
[2019-04-15] MEDS ORDERED: Iron Sucrose 200 MG in NS 110 ML IV ONE ×2 (18:00→21:00)
--- NOTE | 2019-04-15 18:00 | NUR ---
NURSE NOTES: 24 hr urine collection started.Fraga bag placed on ice bucket.
--- NOTE | 2019-04-15 19:45 | NUR ---
HAND-OFF: Report given to Jericho Robles RN..
--- NOTE | 2019-04-15 19:48 | NUR ---
NURSE NOTES: bed bath given,pt had i BM to formed brown stools in large amount,turned and repositioned.
--- NOTE | 2019-04-15 19:50 | NUR ---
NURSE NOTES: PATIENT OPEN EYES, DENIED PAIN OR DISTRESS AT THIS TIME, O2 2LPM VIA NC, NO SOB NOTED, F/C INTACT AND PATENT, KEPT NPO AND 24 HOURS URINE COLLECTION UNTIL 1800PM 04/16/2019 ORDERED, LOWER BED POSITION AND PROVIDED CALL LIGHT WITHIN REACH, ON BED ALARM.
--- NOTE | 2019-04-15 23:13 | Diagnostic Imaging Report ---
APPROVED REPORT CPT Code: 65323 Present Symptoms Shortness of breath BILATERAL: Imaging reveals a patent deep venous system bilaterally. There is no evidence of thrombus within the femoral, popliteal or tibial segments. The greater saphenous veins are also within normal limits. Doppler indicates normal spontaneous flow within these segments.
[2019-04-16] VITALS: BP 123/66
--- NOTE | 2019-04-16 00:05 | NUR ---
NURSE NOTES: PATIENT ASLEEP STATUS, NO PAIN OR DISTRESS NOTED AT THIS TIME, ON BIPAP STATUS.
[2019-04-16] MEDS: Metoprolol 5mg/5ml Inj IVP SCH ×4 (00:49→17:41)
--- NOTE | 2019-04-16 03:30 | NUR ---
NURSE NOTES: MORNING CARE WAS DONE.
[2019-04-16 04:00] VITALS: BP 152/81
[2019-04-16 04:39] LABS: HEMATOCRIT 29.2 % (37.0-47.0); HEMOGLOBIN 9.5 G/DL (12.0-16.0); MEAN CORPUSCULAR VOLUME 86 FL (80-99); PLATELET COUNT 199 K/UL (150-450); RED BLOOD COUNT 3.41 M/UL (4.20-5.40); RED CELL DISTRIBUTION WIDTH 14.1 % (11.6-14.8); WHITE BLOOD COUNT 16.3 K/UL (4.8-10.8)
[2019-04-16 04:43] LABS: ALANINE AMINOTRANSFERASE 6 U/L (12-78); ALBUMIN 1.1 G/DL (3.4-5.0); ALBUMIN/GLOBULIN RATIO 0.2 (1.0-2.7); ALKALINE PHOSPHATASE 86 U/L (46-116); ANION GAP 12 mmol/L (5-15); ASPARTATE AMINO TRANSFERASE 13 U/L (15-37); BILIRUBIN,TOTAL 0.3 MG/DL (0.2-1.0); BLOOD UREA NITROGEN 43 mg/dL (7-18); CALCIUM 8.9 MG/DL (8.5-10.1); CARBON DIOXIDE 20 MMOL/L (21-32); CHLORIDE 110 MMOL/L (98-107); CREATININE 1.5 MG/DL (0.55-1.30); POTASSIUM 3.8 MMOL/L (3.5-5.1); SODIUM 142 MMOL/L (136-145)
[2019-04-16 04:45] LABS: PHOSPHORUS 3.2 MG/DL (2.5-4.9)
[2019-04-16] MEDS ORDERED: Vancomycin 1gm/D5W 275ml IVPB ONE ×2 (06:00)
[2019-04-16] MEDS: NovoLOG Insulin Flexpen SUBQ SCH ×4 (06:03→20:40)
--- NOTE | 2019-04-16 07:35 | NUR ---
HAND-OFF: Report given to Ralph MONTENEGRO RN.
--- NOTE | 2019-04-16 07:40 | NUR ---
NURSE NOTES: Report received from Jericho Robles RN.Pt resting in bed awake,alert in no resp distress,2LNC ,no signs of pain or discomfort,SR on the monitor,NPO, Fraga Cath draining yellow urine,IV site to RW with IVF D5W at 50 ml/hr,skin warm and dry ,SR up x2 HOB elevated bed lock in lowest position ,will continue with plans of care.
[2019-04-16 08:00] VITALS: BP 139/73
[2019-04-16] MEDS: Cefepime 1gm in D5W 55ml IVPB SCH (08:58)
--- NOTE | 2019-04-16 09:30 | Progress Note ---
DATE: 04/16/2019 HISTORY OF PRESENT ILLNESS: This is a female patient who is 79 years old and she continues to have some sepsis, but she also has altered mental status worsened by the stress of her medical illness. That is why, her attending physician has requested daily psychiatric consultation for this patient to prevent any further decline in her cognition. She is confused, disorganized, and decline in cognition below baseline on interview today. MENTAL STATUS EXAMINATION: This is a 79-year-old female. Appearance is disheveled. Attitude, irritable and agitated. Affect, guarded and restricted. Intellect poor. Mood, depressed and anxious. Motor activity, psychomotor agitation. Attention is poor. Orientation x2. Speech is pressured. Thought process, disorganized and illogical. Insight and judgment is poor. DIAGNOSIS: Major depressive disorder, mild, recurrent, without psychotic features, rule out dementia with psychosis. PLAN: Plan for this patient is to treat her with a medication regimen consisting of Namenda 5 mg twice a day and Ativan 0.5 mg p.o. q.6 hours p.r.n. anxiety and agitation. Provided with 20 minutes of cognitive behavioral therapy to help her identify automatic negative thoughts and help her convert those negative thoughts to more positive thoughts to reduce depression, anxiety, and mood lability. Chart reviewed. Discussed with staff. Seen and assessed at bedside. Omar Glover M.D. DR: PRAVEENA JOB#: [id number] CC:
--- NOTE | 2019-04-16 10:00 | NUR ---
NURSE NOTES: Seen by Dr Springer,with orders to transfer pt to Telemetry.
--- NOTE | 2019-04-16 10:11 | Cardiac Electrophysiology PN ---
Assessment/Plan Assessment/Plan 1. Sinus tachycardia, likely due to dehydration and azotemia. Getting gentle hydration by Dr. Spivey. No fib or SVT. On Iv lopressor also 2. HTN On iv metoprolol and prn Hydralazine 3. Coronary artery disease. On metoprolol 5 iv q6hr and Plavix 75 mg daily 4. Sepsis. White count 25,000. On IV abx 5. Anemia.S/P PRBC 6. Renal failure. 7. Dysphagia. PEG pending family consent. 8. History of CVA with hemiplegia. 9. Nonverbal status. SHAUN RN Subjective Subjective NPO, s/p one unit of PRBC yesterday. Family still undecided re PEG Objective Last 24 Hour Vital Signs Date Time Temp Pulse Resp B/P (MAP) Pulse Ox O2 Delivery O2 Flow Rate FiO2 04/16/19 08:00 Nasal Cannula 2.0 04/16/19 08:00 98.6 94 24 139/73 (95) 100 04/16/19 08:00 2.0 04/16/19 07:08 92 24 98 2.0 28 04/16/19 07:07 98 Nasal Cannula 2.0 28 04/16/19 06:02 99 137/77 04/16/19 05:09 117 28 95 Full Face 30 04/16/19 04:00 Bi-pap 15.0 04/16/19 04:00 30 04/16/19 04:00 98.1 114 26 152/81 (104) 94 04/16/19 03:51 109 04/16/19 02:35 92 28 98 Full Face 30 04/16/19 01:11 98 29 97 Full Face 30 04/16/19 00:49 118 04/16/19 00:00 98.4 118 28 123/66 (85) 98 04/16/19 00:00 30 04/16/19 00:00 Bi-pap 15.0 04/15/19 23:41 112 04/15/19 22:14 102 29 98 Full Face 30 04/15/19 20:00 Nasal Cannula 2.0 04/15/19 20:00 2.0 04/15/19 20:00 98.4 105 28 123/66 (85) 98 04/15/19 19:25 95 Nasal Cannula 2.0 28 04/15/19 19:14 97 04/15/19 17:31 114 130/72 04/15/19 16:00 Nasal Cannula 2.0 04/15/19 16:00 99.1 98 24 130/72 (91) 94 04/15/19 16:00 114 04/15/19 16:00 2.0 04/15/19 12:19 102 130/72 04/15/19 12:00 99.5 102 130/72 (91) 04/15/19 12:00 98 04/15/19 12:00 Nasal Cannula 2.0 04/15/19 12:00 2.0 Intake and Output 04/15/19 04/16/19 19:00 07:00 Intake Total 600 ml Output Total 575 ml 350 ml Balance -575 ml 250 ml Intake IV Total 600 ml Output Urine Total 575 ml 350 ml # Bowel Movements 1 2 Laboratory Tests Test 04/16/19 03:40 White Blood Count 16.3 K/UL (4.8-10.8) H Red Blood Count 3.41 M/UL (4.20-5.40) L Hemoglobin 9.5 G/DL (12.0-16.0) L Hematocrit 29.2 % (37.0-47.0) L Mean Corpuscular Volume 86 FL (80-99) Mean Corpuscular Hemoglobin 27.8 PG (27.0-31.0) Mean Corpuscular Hemoglobin Concent 32.5 G/DL (32.0-36.0) Red Cell Distribution Width 14.1 % (11.6-14.8) Platelet Count 199 K/UL (150-450) Mean Platelet Volume 9.1 FL (6.5-10.1) Neutrophils (%) (Auto) % (45.0-75.0) Lymphocytes (%) (Auto) % (20.0-45.0) Monocytes (%) (Auto) % (1.0-10.0) Eosinophils (%) (Auto) % (0.0-3.0) Basophils (%) (Auto) % (0.0-2.0) Differential Total Cells Counted 100 Neutrophils % (Manual) 83 % (45-75) H Lymphocytes % (Manual) 12 % (20-45) L Monocytes % (Manual) 5 % (1-10) Eosinophils % (Manual) 0 % (0-3) Basophils % (Manual) 0 % (0-2) Band Neutrophils 0 % (0-8) Platelet Estimate Adequate Platelet Morphology Normal Hypochromasia 1+ Anisocytosis 1+ Erythrocyte Sedimentation Rate 120 MM/HR (0-30) H Sodium Level 142 MMOL/L (136-145) Potassium Level 3.8 MMOL/L (3.5-5.1) Chloride Level 110 MMOL/L (98-107) H Carbon Dioxide Level 20 MMOL/L (21-32) L Anion Gap 12 mmol/L (5-15) Blood Urea Nitrogen 43 mg/dL (7-18) H Creatinine 1.5 MG/DL (0.55-1.30) H Estimat Glomerular Filtration Rate mL/min (>60) Glucose Level 204 MG/DL (74-106) H Uric Acid 7.6 MG/DL (2.6-7.2) H Calcium Level 8.9 MG/DL (8.5-10.1) Phosphorus Level 3.2 MG/DL (2.5-4.9) Magnesium Level 1.8 MG/DL (1.8-2.4) Total Bilirubin 0.3 MG/DL (0.2-1.0) Aspartate Amino Transf (AST/SGOT) 13 U/L (15-37) L Alanine Aminotransferase (ALT/SGPT) 6 U/L (12-78) L Alkaline Phosphatase 86 U/L (46-116) Ammonia 22 umol/L (11-32) Troponin I 0.185 ng/mL (0.000-0.056) C-Reactive Protein, Quantitative 39.6 mg/dL (0.00-0.90) H Pro-B-Type Natriuretic Peptide 4917 pg/mL (0-125) H Total Protein 6.6 G/DL (6.4-8.2) Albumin 1.1 G/DL (3.4-5.0) L Globulin 5.5 g/dL Albumin/Globulin Ratio 0.2 (1.0-2.7) L Random Vancomycin Level 13.5 ug/mL Objective HEAD AND NECK: Showed no JVD. LUNGS: Coarse rhonchi bilaterally. CARDIOVASCULAR: Regular S1 and S2 with no gallop. ABDOMEN: Soft. EXTREMITIES: No pitting edema. Claude Pena MD Apr 16, 2019 10:11
--- NOTE | 2019-04-16 10:28 | Infectious Diseases Prog Note ---
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 PNA CXR - B/L Infiltrates Aferbile WBCs up to 25 Sp Cx - C. alb Widened mediastinum - right sided aortic arch CXR - Apparent upper mediastinal widening. Possibly due to ectatic vasculature and body abitus, but upper mediastinal mass also possible. Correlate with any prior adiographs and may be available, consider CT for further evaluation if clinically ndicated CT 04/13/19 - Right-sided aortic arch, presumably accounting for the apparent upper mediastinal widening demonstrated on recent plain radiograph. No evidence of upper mediastinal mass. Extensive bilateral lower lobe consolidation , likely pneumonia, less extensive left upper lobe consolidation. 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 CKD CAD PLAN - Continue Cefepime #01/31-10 and Vancomycin #01/31- pending Cx - Will likely D/C Vancomycin if blood Cx still negative tomorrow - Monitor CBC and Temps Thank you for this consult. We will continue to follow the patient during this hospitalization. Subjective Allergies: Coded Allergies: No Known Allergies (Unverified , 04/12/19) Subjective Satting Well Afebrile Leukocytosis generally improving Objective Vital Signs Last 24 Hour Vital Signs Date Time Temp Pulse Resp B/P (MAP) Pulse Ox O2 Delivery O2 Flow Rate FiO2 04/16/19 08:00 Nasal Cannula 2.0 04/16/19 08:00 98.6 94 24 139/73 (95) 100 04/16/19 08:00 2.0 04/16/19 08:00 93 04/16/19 07:08 92 24 98 2.0 28 04/16/19 07:07 98 Nasal Cannula 2.0 28 04/16/19 06:02 99 137/77 04/16/19 05:09 117 28 95 Full Face 30 04/16/19 04:00 Bi-pap 15.0 04/16/19 04:00 30 04/16/19 04:00 98.1 114 26 152/81 (104) 94 04/16/19 03:51 109 04/16/19 02:35 92 28 98 Full Face 30 04/16/19 01:11 98 29 97 Full Face 30 04/16/19 00:49 118 04/16/19 00:00 98.4 118 28 123/66 (85) 98 04/16/19 00:00 30 04/16/19 00:00 Bi-pap 15.0 04/15/19 23:41 112 04/15/19 22:14 102 29 98 Full Face 30 04/15/19 20:00 Nasal Cannula 2.0 04/15/19 20:00 2.0 04/15/19 20:00 98.4 105 28 123/66 (85) 98 04/15/19 19:25 95 Nasal Cannula 2.0 28 04/15/19 19:14 97 04/15/19 17:31 114 130/72 04/15/19 16:00 Nasal Cannula 2.0 04/15/19 16:00 99.1 98 24 130/72 (91) 94 04/15/19 16:00 114 04/15/19 16:00 2.0 04/15/19 12:19 102 130/72 04/15/19 12:00 99.5 102 130/72 (91) 04/15/19 12:00 98 04/15/19 12:00 Nasal Cannula 2.0 04/15/19 12:00 2.0 Height (Feet): 5 Height (Inches): 3.00 Weight (Pounds): 168 Objective Gen: NAD, on 2L NC, Awake and talking HEENT: NCAT, MMM, EOMI LUNGS: CTAB, No W CARDS: RRR, S1, S2, No M/R/G, ABD: Soft, NT, ND Laboratory Tests Test 04/16/19 03:40 White Blood Count 16.3 K/UL (4.8-10.8) H Red Blood Count 3.41 M/UL (4.20-5.40) L Hemoglobin 9.5 G/DL (12.0-16.0) L Hematocrit 29.2 % (37.0-47.0) L Mean Corpuscular Volume 86 FL (80-99) Mean Corpuscular Hemoglobin 27.8 PG (27.0-31.0) Mean Corpuscular Hemoglobin Concent 32.5 G/DL (32.0-36.0) Red Cell Distribution Width 14.1 % (11.6-14.8) Platelet Count 199 K/UL (150-450) Mean Platelet Volume 9.1 FL (6.5-10.1) Neutrophils (%) (Auto) % (45.0-75.0) Lymphocytes (%) (Auto) % (20.0-45.0) Monocytes (%) (Auto) % (1.0-10.0) Eosinophils (%) (Auto) % (0.0-3.0) Basophils (%) (Auto) % (0.0-2.0) Differential Total Cells Counted 100 Neutrophils % (Manual) 83 % (45-75) H Lymphocytes % (Manual) 12 % (20-45) L Monocytes % (Manual) 5 % (1-10) Eosinophils % (Manual) 0 % (0-3) Basophils % (Manual) 0 % (0-2) Band Neutrophils 0 % (0-8) Platelet Estimate Adequate Platelet Morphology Normal Hypochromasia 1+ Anisocytosis 1+ Erythrocyte Sedimentation Rate 120 MM/HR (0-30) H Sodium Level 142 MMOL/L (136-145) Potassium Level 3.8 MMOL/L (3.5-5.1) Chloride Level 110 MMOL/L (98-107) H Carbon Dioxide Level 20 MMOL/L (21-32) L Anion Gap 12 mmol/L (5-15) Blood Urea Nitrogen 43 mg/dL (7-18) H Creatinine 1.5 MG/DL (0.55-1.30) H Estimat Glomerular Filtration Rate mL/min (>60) Glucose Level 204 MG/DL (74-106) H Uric Acid 7.6 MG/DL (2.6-7.2) H Calcium Level 8.9 MG/DL (8.5-10.1) Phosphorus Level 3.2 MG/DL (2.5-4.9) Magnesium Level 1.8 MG/DL (1.8-2.4) Total Bilirubin 0.3 MG/DL (0.2-1.0) Aspartate Amino Transf (AST/SGOT) 13 U/L (15-37) L Alanine Aminotransferase (ALT/SGPT) 6 U/L (12-78) L Alkaline Phosphatase 86 U/L (46-116) Ammonia 22 umol/L (11-32) Troponin I 0.185 ng/mL (0.000-0.056) C-Reactive Protein, Quantitative 39.6 mg/dL (0.00-0.90) H Pro-B-Type Natriuretic Peptide 4917 pg/mL (0-125) H Total Protein 6.6 G/DL (6.4-8.2) Albumin 1.1 G/DL (3.4-5.0) L Globulin 5.5 g/dL Albumin/Globulin Ratio 0.2 (1.0-2.7) L Random Vancomycin Level 13.5 ug/mL Current Medications Medications (Trade) Dose Ordered Sig/Kenisha Route PRN Reason Start Time Stop Time Status Last Admin Dose Admin Acetaminophen (Tylenol) 650 mg Q4H PRN ORAL FEVER 04/12/19 14:15 05/12/19 14:14 Albuterol/ Ipratropium (Albuterol/ Ipratropium) 3 ml Q4H PRN HHN Shortness of Breath 04/12/19 14:15 04/17/19 14:14 Cefepime HCl 1 gm/ Dextrose 55 ml @ 110 mls/hr Q24H IVPB 04/13/19 09:00 04/20/19 08:59 04/16/19 08:58 Clopidogrel Bisulfate (Plavix) 75 mg DAILY ORAL 04/13/19 09:00 05/13/19 08:59 04/13/19 08:57 Dextrose 1,000 ml @ 50 mls/hr Q20H IV 04/14/19 12:30 05/14/19 12:29 04/15/19 20:41 Dextrose (Dextrose 50%) 25 ml Q30M PRN IV Hypoglycemia 04/12/19 19:45 05/12/19 19:44 Dextrose (Dextrose 50%) 50 ml Q30M PRN IV Hypoglycemia 04/12/19 19:45 05/12/19 19:44 Epoetin Bandar (Procrit (for non ESRD use)) 10,000 units FRI-FRI-FRI SUBQ 04/14/19 21:00 05/14/19 20:59 04/14/19 20:11 Folic Acid (Folate) 5 mg DAILY ORAL 04/15/19 15:45 05/15/19 15:44 Hydralazine HCl (Apresoline) 10 mg Q2H PRN IV For High Blood Pressure 04/14/19 16:00 05/14/19 15:59 Insulin Aspart (NovoLOG) BEFORE MEALS AND HS SUBQ 04/12/19 21:00 05/12/19 20:59 04/16/19 06:03 Lorazepam (Ativan) 0.5 mg Q6H PRN ORAL For Anxiety 04/13/19 16:00 04/20/19 15:59 Metoprolol Tartrate (Lopressor) 5 mg EVERY 6 HOURS IVP 04/14/19 18:00 05/14/19 17:59 04/16/19 06:02 Morphine Sulfate (Morphine Sulfate) 2 mg Q4H PRN IVP Severe Pain (Pain Scale 7-10) 04/12/19 14:15 04/19/19 14:14 Ondansetron HCl (Zofran) 4 mg Q6H PRN IVP Nausea & Vomiting 04/12/19 14:15 05/12/19 14:14 Polyethylene Glycol (Miralax) 17 gm DAILYPRN PRN ORAL Constipation 04/12/19 14:15 05/12/19 14:14 Vancomycin HCl (Vanco rx to dose) 1 ea DAILY PRN MISC Per rx protocol 04/12/19 17:30 05/12/19 17:29 Gildardo Gonsalves MD Apr 16, 2019 10:28
--- NOTE | 2019-04-16 11:29 | NUR ---
RD ASSESSMENT & RECOMMENDATIONS SEE CARE ACTIVITY FOR COMPLETE ASSESSMENT DAILY ESTIMATED NEEDS: Needs based on Sepsis, DM, cardiac/ 58kg abw 25-30 kcals/kg 6460-6459 total kcals 1-2 g protein/kg 58-116 g total protein 25-30 mL/kg 7436-6673 total fluid mLs NUTRITION DIAGNOSIS: * Swallowing difficulty R/T dysphagia, h/o CVA as evidenced by s/p VSS w/ rec for NPO, nonoral feedings. * Altered nutrition related lab values R/T diabetes, ARF, cardiac hx as evidenced by A1C of 8.1, POC glu (167-205), elev creat (2.4 ->1.5), elev BNP (70951->4917). CURRENT DIET:NPO PO DIET RECOMMENDATIONS: IF PO GIVEN -> LOW NA, CCHO LOW/ texture per RN SURGERY ENTERAL NUTRITION RECOMMENDATIONS: IF PART OF POC -> Glucerna 1.2 @ 55ml/hr x 24 hrs to provide 1320ml, 1584kcal, 73g prot, 1062ml free water * If TF part of POC, obtain GI access (REC TEMPORARY NGT FEEDING WHILE FAMILY DECIDING ON PEG) * Initiate Glucerna 1.2 @ 15ml/hr x 6 hrs, advance 10ml q 4-6 hrs as tolerated to goal rate. * HOB over 30 degrees/ water flush per MD ADDITIONAL RECOMMENDATIONS: * Calibrated bedscale wt for accurate CBW * REC TEMPORARY NGT FEEDING WHILE FAMILY DECIDING ON PEG -> NPO day 4 today * Monitor lytes, replete as needed .
--- NOTE | 2019-04-16 11:35 | Pulmonology Progress Note ---
Assessment/Plan Problems: (1) Nosocomial pneumonia (2) Sepsis (3) At high risk for aspiration (4) Acute metabolic encephalopathy (5) Diabetes mellitus (6) History of CVA (cerebrovascular accident) (7) CAD (coronary artery disease) (8) Right hemiplegia (9) Hypertensive heart disease (10) 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 Assessment/Plan WBC decreasing, still high OB positive vale culture, sputum has nichelle, BC negative aggressive IV fluids with D5W check electrolytes daily, Na is getting better broad spectrum abx as per ID renal studies reviewed, renal US negative for acute changes f/u urine electrolytes sliding scale with Novolog coverage swallow study done, she failed dvt prophylaxis CT chest reviewed, extensive infiltrate in lower will do positional Chest pt in prone position pts son wants PEG feeding tube Subjective ROS Limited/Unobtainable: No Constitutional: Reports: no symptoms HEENT: Repors: no symptoms Respiratory: Reports: no symptoms Allergies: Coded Allergies: No Known Allergies (Unverified , 04/12/19) Objective Last 24 Hour Vital Signs Date Time Temp Pulse Resp B/P (MAP) Pulse Ox O2 Delivery O2 Flow Rate FiO2 04/16/19 08:00 Nasal Cannula 2.0 04/16/19 08:00 98.6 94 24 139/73 (95) 100 04/16/19 08:00 2.0 04/16/19 08:00 93 04/16/19 07:08 92 24 98 2.0 28 04/16/19 07:07 98 Nasal Cannula 2.0 28 04/16/19 06:02 99 137/77 04/16/19 05:09 117 28 95 Full Face 30 04/16/19 04:00 Bi-pap 15.0 04/16/19 04:00 30 04/16/19 04:00 98.1 114 26 152/81 (104) 94 04/16/19 03:51 109 04/16/19 02:35 92 28 98 Full Face 30 04/16/19 01:11 98 29 97 Full Face 30 04/16/19 00:49 118 04/16/19 00:00 98.4 118 28 123/66 (85) 98 04/16/19 00:00 30 04/16/19 00:00 Bi-pap 15.0 04/15/19 23:41 112 04/15/19 22:14 102 29 98 Full Face 30 04/15/19 20:00 Nasal Cannula 2.0 04/15/19 20:00 2.0 04/15/19 20:00 98.4 105 28 123/66 (85) 98 04/15/19 19:25 95 Nasal Cannula 2.0 28 04/15/19 19:14 97 04/15/19 17:31 114 130/72 04/15/19 16:00 Nasal Cannula 2.0 04/15/19 16:00 99.1 98 24 130/72 (91) 94 04/15/19 16:00 114 04/15/19 16:00 2.0 04/15/19 12:19 102 130/72 04/15/19 12:00 99.5 102 130/72 (91) 04/15/19 12:00 98 04/15/19 12:00 Nasal Cannula 2.0 04/15/19 12:00 2.0 Intake and Output 04/15/19 04/16/19 19:00 07:00 Intake Total 600 ml Output Total 575 ml 350 ml Balance -575 ml 250 ml Intake IV Total 600 ml Output Urine Total 575 ml 350 ml # Bowel Movements 1 2 General Appearance: WD/WN, no acute distress Respiratory/Chest: chest wall non-tender, lungs clear Cardiovascular: normal peripheral pulses, normal rate Abdomen: normal bowel sounds, non distended Extremities: no cyanosis, no clubbing Laboratory Tests 04/16/19 03:40: White Blood Count 16.3H, Red Blood Count 3.41L, Hemoglobin 9.5L, Hematocrit 29.2L, Mean Corpuscular Volume 86, Mean Corpuscular Hemoglobin 27.8, Mean Corpuscular Hemoglobin Concent 32.5, Red Cell Distribution Width 14.1, Platelet Count 199, Mean Platelet Volume 9.1, Neutrophils (%) (Auto) , Lymphocytes (%) ( Auto) , Monocytes (%) (Auto) , Eosinophils (%) (Auto) , Basophils (%) (Auto) , Differential Total Cells Counted 100, Neutrophils % (Manual) 83H, Lymphocytes % (Manual) 12L, Monocytes % (Manual) 5, Eosinophils % (Manual) 0, Basophils % ( Manual) 0, Band Neutrophils 0, Platelet Estimate Adequate, Platelet Morphology Normal, Hypochromasia 1+, Anisocytosis 1+, Erythrocyte Sedimentation Rate 120H, Sodium Level 142, Potassium Level 3.8, Chloride Level 110H, Carbon Dioxide Level 20L, Anion Gap 12, Blood Urea Nitrogen 43H, Creatinine 1.5H, Estimat Glomerular Filtration Rate , Glucose Level 204H, Uric Acid 7.6H, Calcium Level 8.9, Phosphorus Level 3.2, Magnesium Level 1.8, Total Bilirubin 0.3, Aspartate Amino Transf (AST/SGOT) 13L, Alanine Aminotransferase (ALT/SGPT) 6L, Alkaline Phosphatase 86, Ammonia 22, Troponin I 0.185H, C-Reactive Protein, Quantitative 39.6H, Pro-B-Type Natriuretic Peptide 4917H, Total Protein 6.6, Albumin 1.1L, Globulin 5.5, Albumin/Globulin Ratio 0.2L, Random Vancomycin Level 13.5 Current Medications Medications (Trade) Dose Ordered Sig/Kenisha Route PRN Reason Start Time Stop Time Status Last Admin Dose Admin Acetaminophen (Tylenol) 650 mg Q4H PRN ORAL FEVER 04/12/19 14:15 05/12/19 14:14 Albuterol/ Ipratropium (Albuterol/ Ipratropium) 3 ml Q4H PRN HHN Shortness of Breath 04/12/19 14:15 04/17/19 14:14 Cefepime HCl 1 gm/ Dextrose 55 ml @ 110 mls/hr Q24H IVPB 04/13/19 09:00 04/20/19 08:59 04/16/19 08:58 Clopidogrel Bisulfate (Plavix) 75 mg DAILY ORAL 04/13/19 09:00 05/13/19 08:59 04/13/19 08:57 Dextrose 1,000 ml @ 50 mls/hr Q20H IV 04/14/19 12:30 05/14/19 12:29 04/15/19 20:41 Dextrose (Dextrose 50%) 25 ml Q30M PRN IV Hypoglycemia 04/12/19 19:45 05/12/19 19:44 Dextrose (Dextrose 50%) 50 ml Q30M PRN IV Hypoglycemia 04/12/19 19:45 05/12/19 19:44 Epoetin Bandar (Procrit (for non ESRD use)) 10,000 units MON-WED-FRI SUBQ 04/14/19 21:00 05/14/19 20:59 04/14/19 20:11 Folic Acid (Folate) 5 mg DAILY ORAL 04/15/19 15:45 05/15/19 15:44 Hydralazine HCl (Apresoline) 10 mg Q2H PRN IV For High Blood Pressure 04/14/19 16:00 05/14/19 15:59 Insulin Aspart (NovoLOG) BEFORE MEALS AND HS SUBQ 04/12/19 21:00 05/12/19 20:59 04/16/19 06:03 Lorazepam (Ativan) 0.5 mg Q6H PRN ORAL For Anxiety 04/13/19 16:00 04/20/19 15:59 Metoprolol Tartrate (Lopressor) 5 mg EVERY 6 HOURS IVP 04/14/19 18:00 05/14/19 17:59 04/16/19 06:02 Morphine Sulfate (Morphine Sulfate) 2 mg Q4H PRN IVP Severe Pain (Pain Scale 7-10) 04/12/19 14:15 04/19/19 14:14 Ondansetron HCl (Zofran) 4 mg Q6H PRN IVP Nausea & Vomiting 04/12/19 14:15 05/12/19 14:14 Polyethylene Glycol (Miralax) 17 gm DAILYPRN PRN ORAL Constipation 04/12/19 14:15 05/12/19 14:14 Vancomycin HCl (Vanco rx to dose) 1 ea DAILY PRN MISC Per rx protocol 04/12/19 17:30 05/12/19 17:29 Tony Springer MD Apr 16, 2019 11:35
--- NOTE | 2019-04-16 11:37 | NUR ---
*-* INSURANCE *-* UPDATED CLINICALS HAVE BEEN FAXED TO: [facility] white# [id number] P: [phone] F: [phone] (FAX CLINICALS)
--- NOTE | 2019-04-16 11:58 | NUR ---
CASE MANAGEMENT: REVIEW 04/16/2019 SI:SEPSIS. T 98.6 HR 94 RR 24 B/P 139/73 SATS 100% ON 2L/NC WBC 16.3 CL 110 CO2 20 BUN 43 CR 1.5 GLU 204 URIC ACID 7.6 AST 13 ALT 6 TROPONIN 0.185 BNP 4917 IS: IVF @ 100 ml/HR HYDRALAZINE PO Q6H LOPRESSOR PO Q12H NAMENDA PO BID PLAVIX PO QD INSULIN ASPART SUBQ AC/HS VENOFER IV X1 CEFEPIME IV Q24H SDU STATUS DCP: PATIENT TO BE DISCHARGED TO SNF ONCE MEDICALLY CLEARED. PLAN OF CARE: TRANSFER TO TELE CXR
[2019-04-16 12:00] VITALS: BP 127/78
--- NOTE | 2019-04-16 12:26 | NUR ---
NURSE NOTES: Dr Keating discussed plans of care with son,will consult Dr Cortez for PEG placement.
--- NOTE | 2019-04-16 12:51 | General Progress Note ---
Assessment/Plan Problem List: (1) UTI (urinary tract infection) ICD Codes: N39.0 - Urinary tract infection, site not specified SNOMED: 18848218 (2) Respiratory distress ICD Codes: R06.03 - Acute respiratory distress SNOMED: 496970358 (3) Malnutrition ICD Codes: E46 - Unspecified protein-calorie malnutrition SNOMED: 71831831 (4) Sepsis ICD Codes: A41.9 - Sepsis, unspecified organism SNOMED: 19477492 (5) Pneumonia ICD Codes: J18.9 - Pneumonia, unspecified organism SNOMED: 275867596 (6) 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 ICD Codes: E11.22 - Type 2 diabetes mellitus with diabetic chronic kidney disease; N18.4 - Chronic kidney disease, stage 4 (severe) SNOMED: 11991788, 741532294, 364310625 Status: stable, progressing Assessment/Plan: pt diet abx o2 pulm tx neuro psyc eval cbc bmp am pending peg Subjective Constitutional: Reports: weakness Allergies: Coded Allergies: No Known Allergies (Unverified , 04/12/19) All Systems: reviewed and negative except above Subjective o2nc sleep Objective Last 24 Hour Vital Signs Date Time Temp Pulse Resp B/P (MAP) Pulse Ox O2 Delivery O2 Flow Rate FiO2 04/16/19 12:22 102 127/78 04/16/19 12:00 2.0 04/16/19 12:00 98.0 109 20 127/78 (94) 96 04/16/19 12:00 Nasal Cannula 2.0 04/16/19 08:00 Nasal Cannula 2.0 04/16/19 08:00 98.6 94 24 139/73 (95) 100 04/16/19 08:00 2.0 04/16/19 08:00 93 04/16/19 07:08 92 24 98 2.0 28 04/16/19 07:07 98 Nasal Cannula 2.0 28 04/16/19 06:02 99 137/77 04/16/19 05:09 117 28 95 Full Face 30 04/16/19 04:00 Bi-pap 15.0 04/16/19 04:00 30 04/16/19 04:00 98.1 114 26 152/81 (104) 94 04/16/19 03:51 109 04/16/19 02:35 92 28 98 Full Face 30 04/16/19 01:11 98 29 97 Full Face 30 04/16/19 00:49 118 04/16/19 00:00 98.4 118 28 123/66 (85) 98 04/16/19 00:00 30 04/16/19 00:00 Bi-pap 15.0 04/15/19 23:41 112 04/15/19 22:14 102 29 98 Full Face 30 04/15/19 20:00 Nasal Cannula 2.0 04/15/19 20:00 2.0 04/15/19 20:00 98.4 105 28 123/66 (85) 98 04/15/19 19:25 95 Nasal Cannula 2.0 28 04/15/19 19:14 97 04/15/19 17:31 114 130/72 04/15/19 16:00 Nasal Cannula 2.0 04/15/19 16:00 99.1 98 24 130/72 (91) 94 04/15/19 16:00 114 04/15/19 16:00 2.0 Intake and Output 04/15/19 04/16/19 19:00 07:00 Intake Total 600 ml Output Total 575 ml 350 ml Balance -575 ml 250 ml Intake IV Total 600 ml Output Urine Total 575 ml 350 ml # Bowel Movements 1 2 Laboratory Tests 04/16/19 03:40: White Blood Count 16.3H, Red Blood Count 3.41L, Hemoglobin 9.5L, Hematocrit 29.2L, Mean Corpuscular Volume 86, Mean Corpuscular Hemoglobin 27.8, Mean Corpuscular Hemoglobin Concent 32.5, Red Cell Distribution Width 14.1, Platelet Count 199, Mean Platelet Volume 9.1, Neutrophils (%) (Auto) , Lymphocytes (%) ( Auto) , Monocytes (%) (Auto) , Eosinophils (%) (Auto) , Basophils (%) (Auto) , Differential Total Cells Counted 100, Neutrophils % (Manual) 83H, Lymphocytes % (Manual) 12L, Monocytes % (Manual) 5, Eosinophils % (Manual) 0, Basophils % ( Manual) 0, Band Neutrophils 0, Platelet Estimate Adequate, Platelet Morphology Normal, Hypochromasia 1+, Anisocytosis 1+, Erythrocyte Sedimentation Rate 120H, Sodium Level 142, Potassium Level 3.8, Chloride Level 110H, Carbon Dioxide Level 20L, Anion Gap 12, Blood Urea Nitrogen 43H, Creatinine 1.5H, Estimat Glomerular Filtration Rate , Glucose Level 204H, Uric Acid 7.6H, Calcium Level 8.9, Phosphorus Level 3.2, Magnesium Level 1.8, Total Bilirubin 0.3, Aspartate Amino Transf (AST/SGOT) 13L, Alanine Aminotransferase (ALT/SGPT) 6L, Alkaline Phosphatase 86, Ammonia 22, Troponin I 0.185H, C-Reactive Protein, Quantitative 39.6H, Pro-B-Type Natriuretic Peptide 4917H, Total Protein 6.6, Albumin 1.1L, Globulin 5.5, Albumin/Globulin Ratio 0.2L, Random Vancomycin Level 13.5 Height (Feet): 5 Height (Inches): 3.00 Weight (Pounds): 168 General Appearance: lethargic EENT: normal ENT inspection Neck: normal alignment Cardiovascular: normal peripheral pulses, normal rate, regular rhythm Respiratory/Chest: chest wall non-tender, lungs clear, normal breath sounds Abdomen: normal bowel sounds, non tender, soft Extremities: normal inspection Edema: no edema noted Arm (L), no edema noted Arm (R), no edema noted Leg (L), no edema noted Leg (R), no edema noted Pedal (L), no edema noted Pedal (R), no edema noted Generalized Neurologic: motor weakness Skin: normal pigmentation, warm/dry Jama Keating DO Apr 16, 2019 12:51
--- NOTE | 2019-04-16 15:30 | Nephrology Progress Note ---
Assessment/Plan Problem List: (1) Renal failure (ARF), acute on chronic (2) Diabetic nephropathy (3) Sepsis (4) Pneumonia (5) Right hemiplegia (6) Anemia in chronic kidney disease (CKD) (7) Pulmonary hypertension Assessment Renal failure; - Pre Renal - ? Underlying Renal Anemia Pneumonia / respiratory failure ? aspiration prone Sepsis elevated Troponin UTI HyperGlycemia / DM Right Esvin HTN Plan K Phos IV as needed venofer Folate 24 H urine protein check Fraga Hydrate BP and BS control urine studies slow hydrate kidney MAIKEL results noted: No [place] ? NGT vs PEG 2D echo Noted visualized except distal setum and inferiro wall hypokinesis Left ventricular ejection fraction estimated to be 55-60 %. avoid Nephrotoxics per orders Subjective ROS Limited/Unobtainable: No Constitutional: Reports: malaise, weakness Objective Objective Last 24 Hour Vital Signs Date Time Temp Pulse Resp B/P (MAP) Pulse Ox O2 Delivery O2 Flow Rate FiO2 04/16/19 12:22 102 127/78 04/16/19 12:00 111 04/16/19 12:00 2.0 04/16/19 12:00 98.0 109 20 127/78 (94) 96 04/16/19 12:00 Nasal Cannula 2.0 04/16/19 08:00 Nasal Cannula 2.0 04/16/19 08:00 98.6 94 24 139/73 (95) 100 04/16/19 08:00 2.0 04/16/19 08:00 93 04/16/19 07:08 92 24 98 2.0 28 04/16/19 07:07 98 Nasal Cannula 2.0 28 04/16/19 06:02 99 137/77 04/16/19 05:09 117 28 95 Full Face 30 04/16/19 04:00 Bi-pap 15.0 04/16/19 04:00 30 04/16/19 04:00 98.1 114 26 152/81 (104) 94 04/16/19 03:51 109 04/16/19 02:35 92 28 98 Full Face 30 04/16/19 01:11 98 29 97 Full Face 30 04/16/19 00:49 118 04/16/19 00:00 98.4 118 28 123/66 (85) 98 04/16/19 00:00 30 04/16/19 00:00 Bi-pap 15.0 04/15/19 23:41 112 04/15/19 22:14 102 29 98 Full Face 30 04/15/19 20:00 Nasal Cannula 2.0 04/15/19 20:00 2.0 04/15/19 20:00 98.4 105 28 123/66 (85) 98 04/15/19 19:25 95 Nasal Cannula 2.0 28 04/15/19 19:14 97 04/15/19 17:31 114 130/72 04/15/19 16:00 Nasal Cannula 2.0 04/15/19 16:00 99.1 98 24 130/72 (91) 94 04/15/19 16:00 114 04/15/19 16:00 2.0 Intake and Output 04/15/19 04/16/19 18:59 06:59 Intake Total 50 ml 550 ml Output Total 575 ml 350 ml Balance -525 ml 200 ml Intake IV Total 50 ml 550 ml Output Urine Total 575 ml 350 ml # Bowel Movements 1 2 Laboratory Tests 04/16/19 03:40: White Blood Count 16.3H, Red Blood Count 3.41L, Hemoglobin 9.5L, Hematocrit 29.2L, Mean Corpuscular Volume 86, Mean Corpuscular Hemoglobin 27.8, Mean Corpuscular Hemoglobin Concent 32.5, Red Cell Distribution Width 14.1, Platelet Count 199, Mean Platelet Volume 9.1, Neutrophils (%) (Auto) , Lymphocytes (%) ( Auto) , Monocytes (%) (Auto) , Eosinophils (%) (Auto) , Basophils (%) (Auto) , Differential Total Cells Counted 100, Neutrophils % (Manual) 83H, Lymphocytes % (Manual) 12L, Monocytes % (Manual) 5, Eosinophils % (Manual) 0, Basophils % ( Manual) 0, Band Neutrophils 0, Platelet Estimate Adequate, Platelet Morphology Normal, Hypochromasia 1+, Anisocytosis 1+, Erythrocyte Sedimentation Rate 120H, Sodium Level 142, Potassium Level 3.8, Chloride Level 110H, Carbon Dioxide Level 20L, Anion Gap 12, Blood Urea Nitrogen 43H, Creatinine 1.5H, Estimat Glomerular Filtration Rate , Glucose Level 204H, Uric Acid 7.6H, Calcium Level 8.9, Phosphorus Level 3.2, Magnesium Level 1.8, Total Bilirubin 0.3, Aspartate Amino Transf (AST/SGOT) 13L, Alanine Aminotransferase (ALT/SGPT) 6L, Alkaline Phosphatase 86, Ammonia 22, Troponin I 0.185H, C-Reactive Protein, Quantitative 39.6H, Pro-B-Type Natriuretic Peptide 4917H, Total Protein 6.6, Albumin 1.1L, Globulin 5.5, Albumin/Globulin Ratio 0.2L, Random Vancomycin Level 13.5 Height (Feet): 5 Height (Inches): 3.00 Weight (Pounds): 168 General Appearance: no apparent distress, lethargic Cardiovascular: tachycardia Respiratory/Chest: decreased breath sounds Abdomen: distended Wally Spivey MD Apr 16, 2019 15:30
[2019-04-16 16:00] VITALS: BP 123/68
--- NOTE | 2019-04-16 16:00 | NUR ---
NURSE NOTES: bed bath given, kept dry and clean,turned and repositioned .
--- NOTE | 2019-04-16 16:26 | Diagnostic Imaging Report ---
Indications: Dysphagia Technique: Patient ingested multiple substances under the supervision of speech pathology. Video fluoroscopic recording performed. Total fluoroscopy time 290 seconds. Total dose area product 0.56013 mGycm2 Total number of images-12 Comparison: none Findings: Penetration of nectar thick liquid barium is demonstrated. No definite penetration or aspiration with other substances, but movement of the epiglottis is very limited. There is early pooling of multiple substances. Impression: Positive for penetration of nectar thick liquid barium Please refer to speech pathology report for more detailed analysis
--- NOTE | 2019-04-16 18:00 | NUR ---
NURSE NOTES: 24 hour urine collection brought down to Lab.
--- NOTE | 2019-04-16 19:25 | NUR ---
HAND-OFF: Report given to Anne Amador RN..
--- NOTE | 2019-04-16 19:30 | NUR ---
NURSE NOTES: Received bedside report from HORTENCIA Hernandez.Patient stable,nonverbal,no s/s of pain,no respiratory distress at this moment,tolerated N/C well with 2L/min,BiPAP @ night 15/5 FiO2 30%,NPO d/t failed swal.eval.,BS active in all quadrants,skin intact,IV asymptomatic,intact on R wrist 22 G running with D 5 W@ 50ml/hr,bed in a low safety position,call light within a reach,will continue to monitor and follow POC.Pt has D/C plan and casework supervisor for Brandee herzog.
[2019-04-16 20:00] VITALS: BP 114/64
[2019-04-16] MEDS ORDERED: Epoetin Alfa-EPBX (NON ESRD)10,000 unit/ml vial SUBQ SCH (21:00)
--- NOTE | 2019-04-16 22:29 | NUR ---
NURSE NOTES: Patient transferred to [facility] [id number],report given to HORTENCIA Terry.Patient stable,no respiratory distress noted,tolerated portable oxygen,belongings list signed for no belongings,bed secured
--- NOTE | 2019-04-16 22:30 | NUR ---
NURSE NOTES: Received patient from Anne BURNETT. Patient is awake and oriented x1. Patient is receiving oxygen via nasal cannula at 2L/min, tolerating well O2 Sat at 99%. IV site is right wrist 22g asymptomatic and receiving D5W at 50cc/hr. Bed is locked, placed in lowest position, bed alarm on, side rails up x3, call light within reach. Will continue to monitor.
[2019-04-17] VITALS (16 sets, daily range): BP systolic 105–139; BP diastolic 53–75
--- NOTE | 2019-04-17 00:30 | NUR ---
NURSE NOTES: Patient currently has a fever of 100.3. PRN for fever is oral, contacted Dr. Gonsalves for new orders due to patient failing Video Swallow.
[2019-04-17] MEDS: Metoprolol 5mg/5ml Inj IVP SCH ×5 (00:32→23:53)
--- NOTE | 2019-04-17 01:23 | NUR ---
NURSE NOTES: Order received from Dr. Gonsalves for Tylenol suppository PRN for fever.
--- NOTE | 2019-04-17 01:25 | NUR ---
RESPIRATORY NOTE: PT PLACED ON BIPAP WITH CURRENT ORDERS. 15/5, RATE OF 14, 30% FIO2. ALARMS AND ON AND AUDIBLE. BIPAP IS PLUGGED IN A RED OUTLET. BIPAP CIRCUIT AND MASK ARE SECURE AND OUT OF THE WAY. PT SXN'D PRIOR TO BEING PLACED ON BIPAP MASK. MODERATE AMOUNT OF YELLOW, BLOOD TINGED THICK SECRETIONS WERE OBTAINED. FOAM TAPE WAS PLACED ON PT'S FACE. FACIAL INSPECTION REVEALED NO FACIAL WOUNDS OR REDNESS. PT TOLERATING BIPAP WELL. WILL CONTINUE TO MONITOR.
[2019-04-17] MEDS ORDERED: Acetaminophen 650 MG SUPP RECTAL PRN ×2 (01:30→08:15)
--- NOTE | 2019-04-17 05:22 | NUR ---
RESPIRATORY NOTE: PT REMAINED STABLE ON BIPAP. PT NOW ON 2LPM N/C AND TOLERATING WELL. NO FACIAL WOUNDS FOUND UPON REMOVAL OF BIPAP. NO S/S OF REPARATORY DISTRESS NOTED AT THIS TIME.
--- NOTE | 2019-04-17 05:49 | NUR ---
NURSE NOTES: Metoprolol was held due to patients irregularity in blood pressure. Right arm read 90/60, Left arm read 115/61, Left leg BP was 135/50
[2019-04-17] MEDS: NovoLOG Insulin Flexpen SUBQ SCH ×3 (06:03→20:46)
--- NOTE | 2019-04-17 06:14 | Pulmonology Progress Note ---
Assessment/Plan Problems: (1) Nosocomial pneumonia (2) Sepsis (3) At high risk for aspiration (4) Acute metabolic encephalopathy (5) Diabetes mellitus (6) History of CVA (cerebrovascular accident) (7) CAD (coronary artery disease) (8) Right hemiplegia (9) Hypertensive heart disease (10) 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 Assessment/Plan WBC decreasing, still high OB positive vale culture, sputum has nichelle, BC negative aggressive IV fluids with D5W check electrolytes daily, Na is getting better broad spectrum abx as per ID renal studies reviewed, renal US negative for acute changes f/u urine electrolytes sliding scale with Novolog coverage swallow study done, she failed dvt prophylaxis CT chest reviewed, extensive infiltrate in lower will do positional Chest pt in prone position pts son wants PEG feeding tube Subjective ROS Limited/Unobtainable: No Constitutional: Reports: no symptoms HEENT: Repors: no symptoms Allergies: Coded Allergies: No Known Allergies (Unverified , 04/12/19) Objective Last 24 Hour Vital Signs Date Time Temp Pulse Resp B/P (MAP) Pulse Ox O2 Delivery O2 Flow Rate FiO2 04/17/19 05:48 103 105/53 04/17/19 04:50 97 25 98 Facial 30 04/17/19 04:00 Nasal Cannula 2.0 04/17/19 04:00 30 04/17/19 04:00 98.5 103 20 105/53 (70) 98 04/17/19 03:40 95 04/17/19 03:10 99 23 94 Facial 30 04/17/19 02:04 98.2 04/17/19 01:25 104 32 93 Facial 30 04/17/19 00:32 106 115/69 04/17/19 00:00 Nasal Cannula 2.0 04/17/19 00:00 100.3 108 20 139/75 (96) 99 04/17/19 00:00 30 04/16/19 23:40 106 04/16/19 20:45 98 Nasal Cannula 2.0 28 04/16/19 20:00 2.0 04/16/19 20:00 98.8 103 20 114/64 (81) 96 04/16/19 20:00 Nasal Cannula 2.0 04/16/19 19:28 112 04/16/19 17:41 106 140/69 04/16/19 16:00 Nasal Cannula 2.0 04/16/19 16:00 99 04/16/19 16:00 2.0 04/16/19 16:00 98.6 103 25 123/68 (86) 97 04/16/19 12:22 102 127/78 04/16/19 12:00 111 04/16/19 12:00 2.0 04/16/19 12:00 98.0 109 20 127/78 (94) 96 04/16/19 12:00 Nasal Cannula 2.0 04/16/19 08:00 Nasal Cannula 2.0 04/16/19 08:00 98.6 94 24 139/73 (95) 100 04/16/19 08:00 2.0 04/16/19 08:00 93 04/16/19 07:08 92 24 98 2.0 28 04/16/19 07:07 98 Nasal Cannula 2.0 28 Intake and Output 04/16/19 04/17/19 19:00 07:00 Intake Total 605 ml 500 ml Output Total 300 ml Balance 305 ml 500 ml Intake IV Total 605 ml 500 ml Output Urine Total 300 ml # Bowel Movements 1 Objective General Appearance: WD/WN, no acute distress Respiratory/Chest: chest wall non-tender, lungs clear Cardiovascular: normal peripheral pulses, normal rate Abdomen: normal bowel sounds, non distended Extremities: no cyanosis, no clubbing Current Medications Medications (Trade) Dose Ordered Sig/Kenisha Route PRN Reason Start Time Stop Time Status Last Admin Dose Admin Acetaminophen (Tylenol) 650 mg Q4H PRN ORAL FEVER 04/12/19 14:15 05/12/19 14:14 Acetaminophen (Tylenol) 650 mg Q4H PRN RECTAL Fever 04/17/19 01:30 05/17/19 01:29 04/17/19 01:34 Albuterol/ Ipratropium (Albuterol/ Ipratropium) 3 ml Q4H PRN HHN Shortness of Breath 04/12/19 14:15 04/17/19 14:14 Cefepime HCl 1 gm/ Dextrose 55 ml @ 110 mls/hr Q24H IVPB 04/13/19 09:00 04/20/19 08:59 04/16/19 08:58 Clopidogrel Bisulfate (Plavix) 75 mg DAILY ORAL 04/13/19 09:00 05/13/19 08:59 04/13/19 08:57 Dextrose 1,000 ml @ 50 mls/hr Q20H IV 04/14/19 12:30 05/14/19 12:29 04/16/19 17:41 Dextrose (Dextrose 50%) 25 ml Q30M PRN IV Hypoglycemia 04/12/19 19:45 05/12/19 19:44 Dextrose (Dextrose 50%) 50 ml Q30M PRN IV Hypoglycemia 04/12/19 19:45 05/12/19 19:44 Epoetin Bandar (Epoetin Bandar-EPBX(NON ESRD)) 10,000 unit FRI-FRI-FRI SUBQ 04/16/19 21:00 05/16/19 20:59 04/16/19 20:40 Folic Acid (Folate) 5 mg DAILY ORAL 04/15/19 15:45 05/15/19 15:44 Hydralazine HCl (Apresoline) 10 mg Q2H PRN IV For High Blood Pressure 04/14/19 16:00 05/14/19 15:59 Insulin Aspart (NovoLOG) BEFORE MEALS AND HS SUBQ 04/12/19 21:00 05/12/19 20:59 04/17/19 06:03 Lorazepam (Ativan) 0.5 mg Q6H PRN ORAL For Anxiety 04/13/19 16:00 04/20/19 15:59 Metoprolol Tartrate (Lopressor) 5 mg EVERY 6 HOURS IVP 04/14/19 18:00 05/14/19 17:59 04/17/19 00:32 Morphine Sulfate (Morphine Sulfate) 2 mg Q4H PRN IVP Severe Pain (Pain Scale 7-10) 04/12/19 14:15 04/19/19 14:14 Ondansetron HCl (Zofran) 4 mg Q6H PRN IVP Nausea & Vomiting 04/12/19 14:15 05/12/19 14:14 Polyethylene Glycol (Miralax) 17 gm DAILYPRN PRN ORAL Constipation 04/12/19 14:15 05/12/19 14:14 Vancomycin HCl (Vanco rx to dose) 1 ea DAILY PRN MISC Per rx protocol 04/12/19 17:30 05/12/19 17:29 Tony Springer MD Apr 17, 2019 06:14
--- NOTE | 2019-04-17 07:14 | NUR ---
HAND-OFF: Report given to Hayley BURNETT. Patient is in stable condition.
--- NOTE | 2019-04-17 07:15 | Progress Note ---
DATE: 04/17/2019 SUBJECTIVE: This is a 79-year-old female patient with sepsis, but she has altered mental status worsened by stress of medical illness. That is why, her attending has requested daily psychiatric consultation. MENTAL STATUS EXAMINATION: This is a 79-year-old female. Appearance is disheveled. Attitude, irritable and agitated. Affect, guarded and restricted. Intellect poor. Mood, depressed and anxious. Motor activity, psychomotor agitation. Attention span is poor. Orientation x2. Speech is pressured. Thought process, disorganized and illogical. Insight and judgment is poor. DIAGNOSIS: Major depressive disorder, mild, recurrent with psychotic features, rule out dementia with psychosis. PLAN: Treat her with Namenda 5 mg twice a day and Ativan 0.5 mg every 6 hours p.r.n. anxiety and agitation. A 20 minutes of cognitive behavioral therapy to help her identify automatic negative thoughts and help her convert those negative thoughts to more positive thoughts to reduce depression, anxiety, suicidality, and mood lability. Seen and assessed at bedside. Omar Glover M.D. DR: CATY JOB#: [id number] CC:
--- NOTE | 2019-04-17 07:15 | NUR ---
NURSE NOTES: Received report from Raheem Matta. Pt is laying in bed, sleeping. Bed is in lowest position, side rails up X2, and call light is within reach. WIll continue to monitor.
--- NOTE | 2019-04-17 07:50 | General Progress Note ---
Assessment/Plan Problem List: (1) UTI (urinary tract infection) ICD Codes: N39.0 - Urinary tract infection, site not specified SNOMED: 10814358 (2) Respiratory distress ICD Codes: R06.03 - Acute respiratory distress SNOMED: 580551487 (3) Malnutrition ICD Codes: E46 - Unspecified protein-calorie malnutrition SNOMED: 13237115 (4) Sepsis ICD Codes: A41.9 - Sepsis, unspecified organism SNOMED: 08094003 (5) Pneumonia ICD Codes: J18.9 - Pneumonia, unspecified organism SNOMED: 242682437 (6) 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 ICD Codes: E11.22 - Type 2 diabetes mellitus with diabetic chronic kidney disease; N18.4 - Chronic kidney disease, stage 4 (severe) SNOMED: 44073432, 752597655, 723755275 Status: stable, progressing Assessment/Plan: pt diet abx o2 pulm tx neuro psyc eval cbc bmp am pending peg Subjective Constitutional: Reports: weakness Allergies: Coded Allergies: No Known Allergies (Unverified , 04/12/19) All Systems: reviewed and negative except above Subjective o2nc sleep Objective Last 24 Hour Vital Signs Date Time Temp Pulse Resp B/P (MAP) Pulse Ox O2 Delivery O2 Flow Rate FiO2 04/17/19 05:48 103 105/53 04/17/19 05:22 98 24 95 2.0 04/17/19 04:50 97 25 98 Facial 30 04/17/19 04:00 Nasal Cannula 2.0 04/17/19 04:00 30 04/17/19 04:00 98.5 103 20 105/53 (70) 98 04/17/19 03:40 95 04/17/19 03:10 99 23 94 Facial 30 04/17/19 02:04 98.2 04/17/19 01:25 104 32 93 Facial 30 04/17/19 00:32 106 115/69 04/17/19 00:00 Nasal Cannula 2.0 04/17/19 00:00 100.3 108 20 139/75 (96) 99 04/17/19 00:00 30 04/16/19 23:40 106 04/16/19 20:45 98 Nasal Cannula 2.0 28 04/16/19 20:00 2.0 04/16/19 20:00 98.8 103 20 114/64 (81) 96 04/16/19 20:00 Nasal Cannula 2.0 04/16/19 19:28 112 04/16/19 17:41 106 140/69 04/16/19 16:00 Nasal Cannula 2.0 04/16/19 16:00 99 04/16/19 16:00 2.0 04/16/19 16:00 98.6 103 25 123/68 (86) 97 04/16/19 12:22 102 127/78 04/16/19 12:00 111 04/16/19 12:00 2.0 04/16/19 12:00 98.0 109 20 127/78 (94) 96 04/16/19 12:00 Nasal Cannula 2.0 04/16/19 08:00 Nasal Cannula 2.0 04/16/19 08:00 98.6 94 24 139/73 (95) 100 04/16/19 08:00 2.0 04/16/19 08:00 93 Intake and Output 04/16/19 04/17/19 19:00 07:00 Intake Total 605 ml 600 ml Output Total 300 ml 400 ml Balance 305 ml 200 ml Intake IV Total 605 ml 600 ml Output Urine Total 300 ml 400 ml # Bowel Movements 2 Height (Feet): 5 Height (Inches): 3.00 Weight (Pounds): 168 General Appearance: lethargic EENT: normal ENT inspection Neck: normal alignment Cardiovascular: normal peripheral pulses, normal rate, regular rhythm Respiratory/Chest: chest wall non-tender, lungs clear, normal breath sounds Abdomen: normal bowel sounds, non tender, soft Extremities: normal inspection Edema: no edema noted Arm (L), no edema noted Arm (R), no edema noted Leg (L), no edema noted Leg (R), no edema noted Pedal (L), no edema noted Pedal (R), no edema noted Generalized Neurologic: motor weakness Skin: normal pigmentation, warm/dry Jama Keating DO Apr 17, 2019 07:50
--- NOTE | 2019-04-17 08:54 | NUR ---
NURSE NOTES: Pt having a hard time breathing. I turned pt on her side and suctioned her. Foreign body came out of mouth. Pts heart rate went up to 138 and her BP: 163/89. Respiratory dept provided deep suction and placed pt on Bipap. Pts current O2 is 100%, bp is 115/69. Dr. Springer notified. Will continue to monitor and await call from Dr. Springer
--- NOTE | 2019-04-17 09:03 | NUR ---
NURSE NOTES: pt was converted to a. flutter and back to NSR. Contacted Dr. Pena. Will await call back.
[2019-04-17] MEDS: Cefepime 1gm in D5W 55ml IVPB SCH (09:49)
[2019-04-17 09:50] LABS: BASOPHILS % (AUTO) 0.4 % (0.0-2.0); EOSINOPHILS % (AUTO) 0.3 % (0.0-3.0); HEMATOCRIT 29.8 % (37.0-47.0); HEMOGLOBIN 9.4 G/DL (12.0-16.0); LYMPHOCYTES % (AUTO) 12.5 % (20.0-45.0); MEAN CORPUSCULAR VOLUME 87 FL (80-99); MONOCYTES % (AUTO) 5.7 % (1.0-10.0); NEUTROPHILS % (AUTO) 81.2 % (45.0-75.0); PLATELET COUNT 215 K/UL (150-450); RED BLOOD COUNT 3.44 M/UL (4.20-5.40); RED CELL DISTRIBUTION WIDTH 14.1 % (11.6-14.8); WHITE BLOOD COUNT 15.2 K/UL (4.8-10.8)
[2019-04-17 10:14] LABS: ALANINE AMINOTRANSFERASE 8 U/L (12-78); ALBUMIN 1.2 G/DL (3.4-5.0); ALBUMIN/GLOBULIN RATIO 0.2 (1.0-2.7); ALKALINE PHOSPHATASE 96 U/L (46-116); ANION GAP 13 mmol/L (5-15); ASPARTATE AMINO TRANSFERASE 18 U/L (15-37); BILIRUBIN,TOTAL 0.3 MG/DL (0.2-1.0); BLOOD UREA NITROGEN 36 mg/dL (7-18); CARBON DIOXIDE 21 MMOL/L (21-32); CHLORIDE 106 MMOL/L (98-107); CREATININE 1.6 MG/DL (0.55-1.30); POTASSIUM 3.6 MMOL/L (3.5-5.1); SODIUM 140 MMOL/L (136-145)
--- NOTE | 2019-04-17 10:14 | Diagnostic Imaging Report ---
EXAM: XR Chest, 1 View CLINICAL HISTORY: VOMITING TECHNIQUE: Frontal view of the chest. COMPARISON: 04/12/19 CXR FINDINGS: Lungs: Right perihilar and bilateral lower lobe pulmonary consolidation concerning for pneumonia. Pleural space: Small bilateral pleural effusions. Heart: Unremarkable. No cardiomegaly. Mediastinum: Unremarkable. Bones/joints: Unremarkable. 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 Tubes, lines and devices: Telemetry leads overlie the thorax. IMPRESSION: 1. Right perihilar and bilateral lower lobe pulmonary consolidation concerning for pneumonia. 2. Small bilateral pleural effusions.
--- NOTE | 2019-04-17 10:21 | NUR ---
CASE MANAGEMENT: REVIEW 04/17/2019 SI:SEPSIS. T 98.5 HR 103 RR 20 B/P 105/53 SATS 98% ON 2L/NC wbc 15.2 BUN 36 CR 1.6 GLU 231 AST 8 BNP 6607 IS: IVF @ 100 ml/HR HYDRALAZINE PO Q6H LOPRESSOR PO Q12H NAMENDA PO BID PLAVIX PO QD INSULIN ASPART SUBQ AC/HS VENOFER IV X1 CEFEPIME IV Q24H TELE STATUS DCP: PATIENT TO BE DISCHARGED TO SNF ONCE MEDICALLY CLEARED. PLAN OF CARE: PEG PLACEMENT
--- NOTE | 2019-04-17 11:00 | NUR ---
NURSE NOTES: Report received from HORTENCIA Hardy. Pt transferred to room H. No belongings noted. Pt is awake and oriented to name only. Unable to follow commands and non-verbal. Sinus tachy on electronic device monitor. Pt has moderate amount of secretion. Suctioned via nares by RT. Placed bi-pap 15/5 50%. O2 sat 100%. Kept NPO as per order. Fraga in place draining to gravity. IV to left FA G20 patent and asymptomatic. D5W is running at 50cc/hr. Bed in lowest position. Side rails up x3. Will resume plan of care.
--- NOTE | 2019-04-17 11:09 | NUR ---
TRANSFER TO FLOOR: Patient transferred to ICU, per MD Penny. Report given magdalene Kimball RN.
--- NOTE | 2019-04-17 11:42 | Nephrology Progress Note ---
Assessment/Plan Problem List: (1) Renal failure (ARF), acute on chronic (2) Diabetic nephropathy (3) Sepsis (4) Pneumonia (5) Right hemiplegia (6) Anemia in chronic kidney disease (CKD) (7) Pulmonary hypertension Assessment Renal failure; - Pre Renal - ? Underlying Renal Anemia Pneumonia / respiratory failure ? aspiration prone Sepsis elevated Troponin UTI HyperGlycemia / DM Right Esvin HTN Plan K Phos IV as needed venofer Folate 24 H urine protein check Fraga Hydrate BP and BS control urine studies slow hydrate kidney MAIKEL results noted: No [place] ? NGT vs PEG 2D echo Noted visualized except distal setum and inferiro wall hypokinesis Left ventricular ejection fraction estimated to be 55-60 %. avoid Nephrotoxics per orders Subjective ROS Limited/Unobtainable: Yes Objective Objective Last 24 Hour Vital Signs Date Time Temp Pulse Resp B/P (MAP) Pulse Ox O2 Delivery O2 Flow Rate FiO2 04/17/19 10:55 104 22 99 Facial 50 04/17/19 10:53 103 21 99 Bi-Pap 50 04/17/19 10:52 98 Bi-Pap 100 04/17/19 08:43 97 25 98 Facial 100 04/17/19 08:00 97.9 67 18 120/69 (86) 96 04/17/19 08:00 112 04/17/19 08:00 Bi-pap 04/17/19 08:00 30 04/17/19 05:48 103 105/53 04/17/19 05:22 98 24 95 2.0 04/17/19 04:50 97 25 98 Facial 30 04/17/19 04:00 Nasal Cannula 2.0 04/17/19 04:00 30 04/17/19 04:00 98.5 103 20 105/53 (70) 98 04/17/19 03:40 95 04/17/19 03:10 99 23 94 Facial 30 04/17/19 02:04 98.2 04/17/19 01:25 104 32 93 Facial 30 04/17/19 00:32 106 115/69 04/17/19 00:00 Nasal Cannula 2.0 04/17/19 00:00 100.3 108 20 139/75 (96) 99 04/17/19 00:00 30 04/16/19 23:40 106 04/16/19 20:45 98 Nasal Cannula 2.0 28 04/16/19 20:00 2.0 04/16/19 20:00 98.8 103 20 114/64 (81) 96 04/16/19 20:00 Nasal Cannula 2.0 04/16/19 19:28 112 04/16/19 17:41 106 140/69 04/16/19 16:00 Nasal Cannula 2.0 04/16/19 16:00 99 04/16/19 16:00 2.0 04/16/19 16:00 98.6 103 25 123/68 (86) 97 04/16/19 12:22 102 127/78 04/16/19 12:00 111 04/16/19 12:00 2.0 04/16/19 12:00 98.0 109 20 127/78 (94) 96 04/16/19 12:00 Nasal Cannula 2.0 Intake and Output 04/16/19 04/17/19 19:00 07:00 Intake Total 605 ml 600 ml Output Total 300 ml 400 ml Balance 305 ml 200 ml Intake IV Total 605 ml 600 ml Output Urine Total 300 ml 400 ml # Bowel Movements 2 Laboratory Tests 04/17/19 09:20: White Blood Count 15.2H, Red Blood Count 3.44L, Hemoglobin 9.4L, Hematocrit 29.8L, Mean Corpuscular Volume 87, Mean Corpuscular Hemoglobin 27.2, Mean Corpuscular Hemoglobin Concent 31.4L, Red Cell Distribution Width 14.1, Platelet Count 215, Mean Platelet Volume 9.1, Neutrophils (%) (Auto) 81.2H, Lymphocytes (%) (Auto) 12.5L, Monocytes (%) (Auto) 5.7, Eosinophils (%) (Auto) 0.3, Basophils (%) (Auto) 0.4, Sodium Level 140, Potassium Level 3.6, Chloride Level 106, Carbon Dioxide Level 21, Anion Gap 13, Blood Urea Nitrogen 36H, Creatinine 1.6H, Estimat Glomerular Filtration Rate , Glucose Level 231H, Calcium Level 9.0, Total Bilirubin 0.3, Aspartate Amino Transf (AST/SGOT) 18, Alanine Aminotransferase (ALT/SGPT) 8L, Alkaline Phosphatase 96, Pro-B-Type Natriuretic Peptide 6607H, Total Protein 6.9, Albumin 1.2L, Globulin 5.7, Albumin/Globulin Ratio 0.2L Height (Feet): 5 Height (Inches): 3.00 Weight (Pounds): 168 General Appearance: no apparent distress Cardiovascular: tachycardia, arrhythmia Respiratory/Chest: decreased breath sounds Abdomen: distended Wally Spivey MD Apr 17, 2019 11:42
[2019-04-17] MEDS ORDERED: Cefepime 1gm/D5W 55ml IVPB ONE ×2 (12:00)
--- NOTE | 2019-04-17 12:11 | NUR ---
NURSE NOTES: Dr Pena here to see the patient. Updated him with pt's current condition. Orders are entered by Dr Pena.
--- NOTE | 2019-04-17 12:11 | Cardiac Electrophysiology PN ---
Assessment/Plan Assessment/Plan 1. Atrial flutter, self terminated. On Iv Lopressor 5 iv q6 hr 2. HTN On iv metoprolol and prn Hydralazine 3. Coronary artery disease. On metoprolol 5 iv q6hr and Plavix 75 mg daily 4. Sepsis. White count 25,000. On IV abx 5. Anemia.S/P PRBC 6. Renal failure. Getting hydration by Dr. Spivey 7. Dysphagia. PEG pending family consent. 8. History of CVA with hemiplegia. 9. Nonverbal status. 10. Full code DW RN Subjective Subjective NPO, S/P one unit of PRBC. Family undecided re PEG. Had short run of atrial flutter. On BIPAP Objective Last 24 Hour Vital Signs Date Time Temp Pulse Resp B/P (MAP) Pulse Ox O2 Delivery O2 Flow Rate FiO2 04/17/19 10:55 104 22 99 Facial 50 04/17/19 10:53 103 21 99 Bi-Pap 50 04/17/19 10:52 98 Bi-Pap 100 04/17/19 08:43 97 25 98 Facial 100 04/17/19 08:00 97.9 67 18 120/69 (86) 96 04/17/19 08:00 112 04/17/19 08:00 Bi-pap 04/17/19 08:00 30 04/17/19 05:48 103 105/53 04/17/19 05:22 98 24 95 2.0 04/17/19 04:50 97 25 98 Facial 30 04/17/19 04:00 Nasal Cannula 2.0 04/17/19 04:00 30 04/17/19 04:00 98.5 103 20 105/53 (70) 98 04/17/19 03:40 95 04/17/19 03:10 99 23 94 Facial 30 04/17/19 02:04 98.2 04/17/19 01:25 104 32 93 Facial 30 04/17/19 00:32 106 115/69 04/17/19 00:00 Nasal Cannula 2.0 04/17/19 00:00 100.3 108 20 139/75 (96) 99 04/17/19 00:00 30 04/16/19 23:40 106 04/16/19 20:45 98 Nasal Cannula 2.0 28 04/16/19 20:00 2.0 04/16/19 20:00 98.8 103 20 114/64 (81) 96 04/16/19 20:00 Nasal Cannula 2.0 04/16/19 19:28 112 04/16/19 17:41 106 140/69 04/16/19 16:00 Nasal Cannula 2.0 04/16/19 16:00 99 04/16/19 16:00 2.0 04/16/19 16:00 98.6 103 25 123/68 (86) 97 04/16/19 12:22 102 127/78 Intake and Output 04/16/19 04/17/19 19:00 07:00 Intake Total 605 ml 600 ml Output Total 300 ml 400 ml Balance 305 ml 200 ml Intake IV Total 605 ml 600 ml Output Urine Total 300 ml 400 ml # Bowel Movements 2 Laboratory Tests Test 04/17/19 09:20 White Blood Count 15.2 K/UL (4.8-10.8) H Red Blood Count 3.44 M/UL (4.20-5.40) L Hemoglobin 9.4 G/DL (12.0-16.0) L Hematocrit 29.8 % (37.0-47.0) L Mean Corpuscular Volume 87 FL (80-99) Mean Corpuscular Hemoglobin 27.2 PG (27.0-31.0) Mean Corpuscular Hemoglobin Concent 31.4 G/DL (32.0-36.0) L Red Cell Distribution Width 14.1 % (11.6-14.8) Platelet Count 215 K/UL (150-450) Mean Platelet Volume 9.1 FL (6.5-10.1) Neutrophils (%) (Auto) 81.2 % (45.0-75.0) H Lymphocytes (%) (Auto) 12.5 % (20.0-45.0) L Monocytes (%) (Auto) 5.7 % (1.0-10.0) Eosinophils (%) (Auto) 0.3 % (0.0-3.0) Basophils (%) (Auto) 0.4 % (0.0-2.0) Sodium Level 140 MMOL/L (136-145) Potassium Level 3.6 MMOL/L (3.5-5.1) Chloride Level 106 MMOL/L (98-107) Carbon Dioxide Level 21 MMOL/L (21-32) Anion Gap 13 mmol/L (5-15) Blood Urea Nitrogen 36 mg/dL (7-18) H Creatinine 1.6 MG/DL (0.55-1.30) H Estimat Glomerular Filtration Rate mL/min (>60) Glucose Level 231 MG/DL (74-106) H Calcium Level 9.0 MG/DL (8.5-10.1) Total Bilirubin 0.3 MG/DL (0.2-1.0) Aspartate Amino Transf (AST/SGOT) 18 U/L (15-37) Alanine Aminotransferase (ALT/SGPT) 8 U/L (12-78) L Alkaline Phosphatase 96 U/L (46-116) Pro-B-Type Natriuretic Peptide 6607 pg/mL (0-125) H Total Protein 6.9 G/DL (6.4-8.2) Albumin 1.2 G/DL (3.4-5.0) L Globulin 5.7 g/dL Albumin/Globulin Ratio 0.2 (1.0-2.7) L Objective HEAD AND NECK: Showed no JVD. On BIPAP LUNGS: Coarse rhonchi bilaterally. CARDIOVASCULAR: Regular S1 and S2 with no gallop. ABDOMEN: Soft. EXTREMITIES: No pitting edema. Claude Pena MD Apr 17, 2019 12:10
[2019-04-17] MEDS ORDERED: Albuterol/Ipratropium 3ml neb HHN PRN (12:36)
[2019-04-17] MEDS ORDERED: Morphine Sulfate 2mg/ml Inj(IV/IM USE ONLY) IVP PRN (12:37)
[2019-04-17] MEDS ORDERED: Miralax 17gm pkt ORAL PRN (12:37)
[2019-04-17] MEDS ORDERED: LORazepam 0.5mg tab ORAL PRN (12:37)
[2019-04-17] MEDS ORDERED: NovoLOG Insulin Flexpen SUBQ SCH (13:00)
[2019-04-17] MEDS ORDERED: Cefepime HCl 1 GM in D5W 55 ML IVPB SCH (13:00)
[2019-04-17] MEDS ORDERED: NS 275ml ONE (13:10)
[2019-04-17] MEDS ORDERED: Tubing IV Secondary IV ONE (13:10)
[2019-04-17] MEDS ORDERED: 1/2 NS 1000ml IV ONE (13:10)
--- NOTE | 2019-04-17 14:24 | Hematology/Onc Progress Note ---
Assessment/Plan Assessment/Plan ASSESSMENT AND RECOMMENDATIONS # Anemia of chronic disease due to underlying chronic medical issues, multifactorial --> Anemia workup has been ordered and reviewed. --> Ferritin 274, iron 6, tibc 143 --> No evidence of hemolysis is noted, peripheral smear has been reviewed. --> Hgb goal >7. Transfuse prn. --> Epogen or iron at this time is not particularly indicated --> Medications have been reviewed --> low threshold for gi evaluation in case has occult + --> Hgb trend: 9.4--> # Lung mass. First noted on CXR. --> Ct chest has been ordered and reviewed. CT reveals no mass. --> hold off on any tumor marker testing --> as per id and pulm mino, appreciate RECS # Leukocytosis/elevated white blood cell count, unspecified likely related to underlying sepsis due to pna confirmed by CT chest and CXR --> have reviewed peripheral smear and bandemia/neutrophilia noted --> continue antibiotics if they have been started by ID team --> monitor for resolution --> trend 25-->20-->15k--16.3 # Respiratory distress. BiPAP per Pulmonary. # Sepsis d/t pna and uti. --> Antibiotics per Infectious Disease. # Renal failure. Nephro is following, appreciate recs # Elevated troponin. Recs per cardiology # Malnutrition. --> Dietary to follow. The time this note is entered does not reflect the time the patient was examined. I greatly appreciate the consultation. Subjective ROS Limited/Unobtainable: Yes Hematologic/Lymphatic: Reports: anemia Allergies: Coded Allergies: No Known Allergies (Unverified , 04/12/19) Subjective 04/15: no events reported, no f/c, on abx, seen by id, pulm, hgb remains stable 04/16: Pt resting in bed, nonverbal. No distress noted. WBC remains elevated. Plan to transfer to tele. Objective Objective Current Medications Medications (Trade) Dose Ordered Sig/Kenisha Route PRN Reason Start Time Stop Time Status Last Admin Dose Admin Acetaminophen (Tylenol) 650 mg Q4H PRN ORAL FEVER 04/17/19 12:36 05/17/19 12:35 Acetaminophen (Tylenol) 650 mg Q4H PRN RECTAL Fever 04/17/19 12:36 05/17/19 12:35 Albuterol/ Ipratropium (Albuterol/ Ipratropium) 3 ml Q4H PRN HHN Shortness of Breath 04/17/19 12:36 04/22/19 12:35 Cefepime HCl 1 gm/ Dextrose 55 ml @ 110 mls/hr ONCE IVPB 04/17/19 13:00 04/17/19 15:00 04/17/19 13:09 Cefepime HCl 2 gm/ Dextrose 110 ml @ 220 mls/hr Q24H IV 04/18/19 09:00 04/25/19 08:59 Clopidogrel Bisulfate (Plavix) 75 mg DAILY ORAL 04/18/19 09:00 05/13/19 08:59 Dextrose 1,000 ml @ 50 mls/hr Q20H IV 04/17/19 12:35 05/17/19 12:34 04/17/19 13:10 Dextrose (Dextrose 50%) 25 ml Q30M PRN IV Hypoglycemia 04/17/19 12:45 05/12/19 19:44 Dextrose (Dextrose 50%) 50 ml Q30M PRN IV Hypoglycemia 04/17/19 12:45 05/12/19 19:44 Epoetin Bandar (Epoetin Bandar-EPBX(NON ESRD)) 10,000 unit FRI-FRI-FRI SUBQ 04/19/19 21:00 05/16/19 20:59 Folic Acid (Folate) 5 mg DAILY ORAL 04/18/19 09:00 05/15/19 15:44 Hydralazine HCl (Apresoline) 10 mg Q2H PRN IV For High Blood Pressure 04/17/19 12:36 05/17/19 12:35 Insulin Aspart (NovoLOG) BEFORE MEALS AND HS SUBQ 04/17/19 16:30 05/12/19 20:59 Lorazepam (Ativan) 0.5 mg Q6H PRN ORAL For Anxiety 04/17/19 12:37 04/24/19 12:36 Metoprolol Tartrate (Lopressor) 5 mg EVERY 6 HOURS IVP 04/17/19 13:00 05/14/19 12:59 04/17/19 13:09 Morphine Sulfate (Morphine Sulfate) 2 mg Q4H PRN IVP Severe Pain (Pain Scale 7-10) 04/17/19 12:37 04/24/19 12:36 Ondansetron HCl (Zofran) 4 mg Q6H PRN IVP Nausea & Vomiting 04/17/19 12:37 05/17/19 12:36 Polyethylene Glycol (Miralax) 17 gm DAILYPRN PRN ORAL Constipation 04/17/19 12:37 05/17/19 12:36 Vancomycin HCl (Vanco rx to dose) 1 ea DAILY PRN MISC Per rx protocol 04/18/19 09:00 05/12/19 17:29 Vancomycin HCl/ Dextrose 275 ml @ 183.333 mls/hr Q48H IVPB 04/18/19 06:00 04/23/19 05:59 Last 24 Hour Vital Signs Date Time Temp Pulse Resp B/P (MAP) Pulse Ox O2 Delivery O2 Flow Rate FiO2 04/17/19 13:09 103 113/59 04/17/19 12:58 97 21 100 Facial 40 04/17/19 11:00 Bi-pap 04/17/19 10:55 104 22 99 Facial 50 04/17/19 10:53 103 21 99 Bi-Pap 50 04/17/19 10:52 98 Bi-Pap 100 04/17/19 10:50 50 04/17/19 08:43 97 25 98 Facial 100 04/17/19 08:00 97.9 67 18 120/69 (86) 96 04/17/19 08:00 112 04/17/19 08:00 Bi-pap 04/17/19 08:00 30 04/17/19 05:48 103 105/53 04/17/19 05:22 98 24 95 2.0 04/17/19 04:50 97 25 98 Facial 30 04/17/19 04:00 Nasal Cannula 2.0 04/17/19 04:00 30 04/17/19 04:00 98.5 103 20 105/53 (70) 98 04/17/19 03:40 95 04/17/19 03:10 99 23 94 Facial 30 04/17/19 02:04 98.2 04/17/19 01:25 104 32 93 Facial 30 04/17/19 00:32 106 115/69 04/17/19 00:00 Nasal Cannula 2.0 04/17/19 00:00 100.3 108 20 139/75 (96) 99 04/17/19 00:00 30 04/16/19 23:40 106 04/16/19 20:45 98 Nasal Cannula 2.0 28 04/16/19 20:00 2.0 04/16/19 20:00 98.8 103 20 114/64 (81) 96 04/16/19 20:00 Nasal Cannula 2.0 04/16/19 19:28 112 04/16/19 17:41 106 140/69 04/16/19 16:00 Nasal Cannula 2.0 04/16/19 16:00 99 04/16/19 16:00 2.0 04/16/19 16:00 98.6 103 25 123/68 (86) 97 04/16/19 12:22 102 127/78 04/16/19 12:00 111 04/16/19 12:00 2.0 04/16/19 12:00 98.0 109 20 127/78 (94) 96 04/16/19 12:00 Nasal Cannula 2.0 04/16/19 08:00 Nasal Cannula 2.0 04/16/19 08:00 98.6 94 24 139/73 (95) 100 04/16/19 08:00 2.0 04/16/19 08:00 93 04/16/19 07:08 92 24 98 2.0 28 04/16/19 07:07 98 Nasal Cannula 2.0 28 04/16/19 06:02 99 137/77 04/16/19 05:09 117 28 95 Full Face 30 04/16/19 04:00 Bi-pap 15.0 04/16/19 04:00 30 04/16/19 04:00 98.1 114 26 152/81 (104) 94 04/16/19 03:51 109 04/16/19 02:35 92 28 98 Full Face 30 04/16/19 01:11 98 29 97 Full Face 30 04/16/19 00:49 118 04/16/19 00:00 98.4 118 28 123/66 (85) 98 04/16/19 00:00 30 04/16/19 00:00 Bi-pap 15.0 04/15/19 23:41 112 04/15/19 22:14 102 29 98 Full Face 30 04/15/19 20:00 Nasal Cannula 2.0 04/15/19 20:00 2.0 04/15/19 20:00 98.4 105 28 123/66 (85) 98 04/15/19 19:25 95 Nasal Cannula 2.0 28 04/15/19 19:14 97 04/15/19 17:31 114 130/72 04/15/19 16:00 Nasal Cannula 2.0 04/15/19 16:00 99.1 98 24 130/72 (91) 94 04/15/19 16:00 114 04/15/19 16:00 2.0 Intake and Output 04/16/19 04/17/19 19:00 07:00 Intake Total 605 ml 600 ml Output Total 300 ml 400 ml Balance 305 ml 200 ml Intake IV Total 605 ml 600 ml Output Urine Total 300 ml 400 ml # Bowel Movements 2 Labs Test 04/15/19 04:00 04/15/19 18:00 04/16/19 03:40 04/17/19 09:20 White Blood Count 15.3 K/UL (4.8-10.8) 16.3 K/UL (4.8-10.8) 15.2 K/UL (4.8-10.8) Red Blood Count 3.25 M/UL (4.20-5.40) 3.41 M/UL (4.20-5.40) 3.44 M/UL (4.20-5.40) Hemoglobin 8.9 G/DL (12.0-16.0) 9.5 G/DL (12.0-16.0) 9.4 G/DL (12.0-16.0) Hematocrit 28.1 % (37.0-47.0) 29.2 % (37.0-47.0) 29.8 % (37.0-47.0) Mean Corpuscular Volume 86 FL (80-99) 86 FL (80-99) 87 FL (80-99) Mean Corpuscular Hemoglobin 27.5 PG (27.0-31.0) 27.8 PG (27.0-31.0) 27.2 PG (27.0-31.0) Mean Corpuscular Hemoglobin Concent 31.8 G/DL (32.0-36.0) 32.5 G/DL (32.0-36.0) 31.4 G/DL (32.0-36.0) Red Cell Distribution Width 14.2 % (11.6-14.8) 14.1 % (11.6-14.8) 14.1 % (11.6-14.8) Platelet Count 196 K/UL (150-450) 199 K/UL (150-450) 215 K/UL (150-450) Mean Platelet Volume 8.6 FL (6.5-10.1) 9.1 FL (6.5-10.1) 9.1 FL (6.5-10.1) Neutrophils (%) (Auto) % (45.0-75.0) % (45.0-75.0) 81.2 % (45.0-75.0) Lymphocytes (%) (Auto) % (20.0-45.0) % (20.0-45.0) 12.5 % (20.0-45.0) Monocytes (%) (Auto) % (1.0-10.0) % (1.0-10.0) 5.7 % (1.0-10.0) Eosinophils (%) (Auto) % (0.0-3.0) % (0.0-3.0) 0.3 % (0.0-3.0) Basophils (%) (Auto) % (0.0-2.0) % (0.0-2.0) 0.4 % (0.0-2.0) Differential Total Cells Counted 100 100 Neutrophils % (Manual) 84 % (45-75) 83 % (45-75) Lymphocytes % (Manual) 12 % (20-45) 12 % (20-45) Monocytes % (Manual) 4 % (1-10) 5 % (1-10) Eosinophils % (Manual) 0 % (0-3) 0 % (0-3) Basophils % (Manual) 0 % (0-2) 0 % (0-2) Band Neutrophils 0 % (0-8) 0 % (0-8) Platelet Estimate Adequate Adequate Platelet Morphology Normal Normal Hypochromasia 2+ 1+ Anisocytosis 1+ 1+ Sodium Level 146 MMOL/L (136-145) 142 MMOL/L (136-145) 140 MMOL/L (136-145) Potassium Level 3.3 MMOL/L (3.5-5.1) 3.8 MMOL/L (3.5-5.1) 3.6 MMOL/L (3.5-5.1) Chloride Level 112 MMOL/L (98-107) 110 MMOL/L (98-107) 106 MMOL/L (98-107) Carbon Dioxide Level 20 MMOL/L (21-32) 20 MMOL/L (21-32) 21 MMOL/L (21-32) Anion Gap 14 mmol/L (5-15) 12 mmol/L (5-15) 13 mmol/L (5-15) Blood Urea Nitrogen 54 mg/dL (7-18) 43 mg/dL (7-18) 36 mg/dL (7-18) Creatinine 1.7 MG/DL (0.55-1.30) 1.5 MG/DL (0.55-1.30) 1.6 MG/DL (0.55-1.30) Estimat Glomerular Filtration Rate mL/min (>60) mL/min (>60) mL/min (>60) Glucose Level 140 MG/DL (74-106) 204 MG/DL (74-106) 231 MG/DL (74-106) Calcium Level 8.7 MG/DL (8.5-10.1) 8.9 MG/DL (8.5-10.1) 9.0 MG/DL (8.5-10.1) Phosphorus Level 3.4 MG/DL (2.5-4.9) 3.2 MG/DL (2.5-4.9) Magnesium Level 1.9 MG/DL (1.8-2.4) 1.8 MG/DL (1.8-2.4) Total Bilirubin 0.2 MG/DL (0.2-1.0) 0.3 MG/DL (0.2-1.0) 0.3 MG/DL (0.2-1.0) Direct Bilirubin < 0.1 MG/DL (0.0-0.3) Aspartate Amino Transf (AST/SGOT) 15 U/L (15-37) 13 U/L (15-37) 18 U/L (15-37) Alanine Aminotransferase (ALT/SGPT) 10 U/L (12-78) 6 U/L (12-78) 8 U/L (12-78) Alkaline Phosphatase 76 U/L (46-116) 86 U/L (46-116) 96 U/L (46-116) Total Protein 6.5 G/DL (6.4-8.2) 6.6 G/DL (6.4-8.2) 6.9 G/DL (6.4-8.2) Albumin 1.2 G/DL (3.4-5.0) 1.1 G/DL (3.4-5.0) 1.2 G/DL (3.4-5.0) Urine Collection Time 24 HRS Urine Total Volume 700 ML Urine Total Protein mg/dL 354 mg/dL Urine Total Protein 24 Hour 2478.0 mg/24hr (< 150) Erythrocyte Sedimentation Rate 120 MM/HR (0-30) Uric Acid 7.6 MG/DL (2.6-7.2) Ammonia 22 umol/L (11-32) Troponin I 0.185 ng/mL (0.000-0.056) C-Reactive Protein, Quantitative 39.6 mg/dL (0.00-0.90) Pro-B-Type Natriuretic Peptide 4917 pg/mL (0-125) 6607 pg/mL (0-125) Globulin 5.5 g/dL 5.7 g/dL Albumin/Globulin Ratio 0.2 (1.0-2.7) 0.2 (1.0-2.7) Random Vancomycin Level 13.5 ug/mL Height (Feet): 5 Height (Inches): 3.00 Weight (Pounds): 168 Objective PHYSICAL EXAMINATION: GENERAL: BiPAP in place, sleeping in bed, slight short of breath. VITAL SIGNS: Have been reviewed CARDIOVASCULAR: No murmur. LUNGS: Poor exchange. ABDOMEN: Bowel sounds distant. EXTREMITIES: No cyanosis, clubbing, or edema. NEUROLOGIC: Patient is flaccid in bed, probably sedated. Steven Norton MD Apr 17, 2019 14:24
--- NOTE | 2019-04-17 15:25 | NUR ---
NURSE NOTES: Turned and repositioned pt. Pt is sleeping in bed. SR with HR 76. No acute distress noted. Will continue to monitor.
--- NOTE | 2019-04-17 16:00 | Consultation ---
DATE OF CONSULTATION: 04/17/2019 CONSULTING PHYSICIAN: Darron Gentile M.D. REFERRING PHYSICIAN: Jama Keating D.O. CHIEF COMPLAINT: Dysphagia, failure to thrive. HISTORY OF PRESENT ILLNESS: This is a 79-year-old female who came from a custodial. She has history of CVA with hemiplegia. The patient was admitted mainly for shortness of breath. GI consultation was requested for possible G-tube placement. PAST MEDICAL HISTORY: 1. Hypertension. 2. Coronary artery disease. 3. Chronic kidney disease. 4. CVA with hemiplegia. PAST SURGICAL HISTORY: Unknown. ALLERGIES: No known drug allergy. FAMILY HISTORY: Noncontributory. SOCIAL HISTORY: Currently lives in a custodial. No recent history of tobacco, alcohol, or IV drug abuse. REVIEW OF SYSTEMS: Limited. PHYSICAL EXAMINATION: VITAL SIGNS: Temperature is 97.9, pulse is 104, respiration 22, blood pressure is 120/69. HEENT: Normocephalic and atraumatic. Sclerae anicteric. NECK: Supple. No evidence of obvious adenopathy. CARDIOVASCULAR: Irregularly irregular. Plus S1 and S2. LUNGS: Decreased breath sounds bilaterally at bases on supine exam. ABDOMEN: Soft, nontender. No rebound. No guarding. No peritoneal sign. EXTREMITIES: No cyanosis. No clubbing. No edema. LABORATORIES: White count is 16, hemoglobin 9.4, hematocrit 29, platelet count is 215,000. Chem-7, sodium 140, potassium 3.6, BUN is 36, creatinine 1.6, glucose is 231. ASSESSMENT AND PLAN: This is a 79-year-old female with dysphagia and was consulted for possible G-tube placement. The patient overnight has been transferred from telemetry to ICU because of respiratory distress. Currently, the patient is on BiPAP. At this time, the patient is unstable given the patient is on BiPAP and not a candidate for sedation. We are going to monitor overnight and reevaluate for tomorrow. If she is more stable and she is not in significant respiratory distress, we will consider doing a G-tube placement on Friday. If not, consider tomorrow to place an NG tube for feeding while waiting. In terms of anemia, most probably it is chronic disease. We will start workup. I want to thank, Dr. Jama Keating, for this kind referral. Darron Gentile M.D. DR: Denice JOB#: [id number] CC: Jama Keating D.O.
--- NOTE | 2019-04-17 16:00 | NUR ---
NURSE NOTES: Dr Gentile here to see the patient. Pt is on Bi-pap 15/5, 50%. He will monitor pt's condition one more day and decide whether pt is stable enough to do PEG placement. Repositioned pt. Son at bedside.
--- NOTE | 2019-04-17 19:05 | NUR ---
HAND-OFF: Report given to HORTENCIA Mckenzie.
--- NOTE | 2019-04-17 20:00 | NUR ---
NURSE NOTES: Received pt in nmo acute distress; opens eyes to name and tracks/gaze to left side. Aphasic, right side plegic. Denies pains, denies SOB but pt continues on the Bipap at 15/5 fiO2 .35, saturating 96-98%. Breath sounds diminished; no cough. Pt is NPO, no NGT/GT; abdomen soft with hypoactive bowel sounds. LFA PIVsite intact; IVF of D5W infuses at 50ml/h. FC patent; urine clear yellow at 30ml/h. Skin intact, sacral area with optifoam. Placed P200 mattress as pt immobile and bedbound. Will continue to monitor; fall precautions active; bed locked in low position and armed.
--- NOTE | 2019-04-17 21:00 | NUR ---
NURSE NOTES: Neuro WELDING OPERATOR here and saw pt; no orders. Accucheck 130, covered per sliding scale.
--- NOTE | 2019-04-17 21:28 | Neurology Progress Note ---
Interim History Interim History ROS Limited/Unobtainable: Yes Complaints: AMS Events: Moved to ICU on April 15 Interim History This visit was performed on April 17, [address] Geo Espitia. Review of Systems All Systems: reviewed and negative except above Objective Physical Exam Last Vital Signs Date Time Temp Pulse Resp B/P (MAP) Pulse Ox O2 Delivery O2 Flow Rate FiO2 04/17/19 21:00 94 24 108/56 (73) 97 04/17/19 20:59 Facial 35 04/17/19 20:00 99.3 04/17/19 05:22 2.0 Laboratory Tests Test 04/17/19 09:20 White Blood Count 15.2 K/UL (4.8-10.8) H Red Blood Count 3.44 M/UL (4.20-5.40) L Hemoglobin 9.4 G/DL (12.0-16.0) L Hematocrit 29.8 % (37.0-47.0) L Mean Corpuscular Volume 87 FL (80-99) Mean Corpuscular Hemoglobin 27.2 PG (27.0-31.0) Mean Corpuscular Hemoglobin Concent 31.4 G/DL (32.0-36.0) L Red Cell Distribution Width 14.1 % (11.6-14.8) Platelet Count 215 K/UL (150-450) Mean Platelet Volume 9.1 FL (6.5-10.1) Neutrophils (%) (Auto) 81.2 % (45.0-75.0) H Lymphocytes (%) (Auto) 12.5 % (20.0-45.0) L Monocytes (%) (Auto) 5.7 % (1.0-10.0) Eosinophils (%) (Auto) 0.3 % (0.0-3.0) Basophils (%) (Auto) 0.4 % (0.0-2.0) Sodium Level 140 MMOL/L (136-145) Potassium Level 3.6 MMOL/L (3.5-5.1) Chloride Level 106 MMOL/L (98-107) Carbon Dioxide Level 21 MMOL/L (21-32) Anion Gap 13 mmol/L (5-15) Blood Urea Nitrogen 36 mg/dL (7-18) H Creatinine 1.6 MG/DL (0.55-1.30) H Estimat Glomerular Filtration Rate mL/min (>60) Glucose Level 231 MG/DL (74-106) H Calcium Level 9.0 MG/DL (8.5-10.1) Total Bilirubin 0.3 MG/DL (0.2-1.0) Aspartate Amino Transf (AST/SGOT) 18 U/L (15-37) Alanine Aminotransferase (ALT/SGPT) 8 U/L (12-78) L Alkaline Phosphatase 96 U/L (46-116) Pro-B-Type Natriuretic Peptide 6607 pg/mL (0-125) H Total Protein 6.9 G/DL (6.4-8.2) Albumin 1.2 G/DL (3.4-5.0) L Globulin 5.7 g/dL Albumin/Globulin Ratio 0.2 (1.0-2.7) L General: well developed, well nourished Head: normocophalic Neck: no rigidity EENT: benign Neurologic Exam Mental Status: awake Speech: other Cranial Nerve II: other Cranial Nerves III, IV, : PERRLA, EOMI, other Cranial Nerve V: other Cranial Nerve VII: other Cranial Nerve VIII: other Cranial Nerve IX: other Cranial Nerve XI: other Cranial Nerve XII: other Motor System: other Sensory: other Coordination: other Impression/Recommendations Problems: (1) Respiratory distress (2) Malnutrition (3) UTI (urinary tract infection) (4) Diabetic nephropathy (5) Renal failure (ARF), acute on chronic (6) Anemia in chronic kidney disease (CKD) (7) Pulmonary hypertension (8) Hypernatremia (9) Sepsis (10) Pneumonia (11) History of CVA (cerebrovascular accident) (12) CAD (coronary artery disease) (13) Right hemiplegia (14) Diabetes mellitus (15) Hypertensive heart disease (16) 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 (17) Nosocomial pneumonia (18) At high risk for aspiration (19) Acute metabolic encephalopathy Status: stable Recommendations Continue Q2 hour neuro obs Contiue BIPAP SBP<140 Na 135-145 ABx as per PMT Maintain good sleep hygiene for patient by making room dark and quiet at night, minimizing nonessential care during these hours. Consider enteral feeding. Folate 1mg QD Check Swallow Maintain normoglycemia with ISS Critical care time of 40 minutes, was performed in order to assess and manage the high probability of imminent or life threatening deterioration to respiratory/neurologic function, with frequent reassessment and excludes all billable procedures. Phyllis Diop N.P. Apr 17, 2019 21:28
[2019-04-18] VITALS (24 sets, daily range): BP systolic 111–154; BP diastolic 51–105
--- NOTE | 2019-04-18 00:19 | NUR ---
NURSE NOTES: Incontinent of 1 small amt of formed BM. Skin warm, temp 99.6 axillary. IV site intact. Calm, asleep; no distress; VSS
--- NOTE | 2019-04-18 02:00 | NUR ---
NURSE NOTES: Calm, asleep, no distress. Bipap continues @15/5 fiO2.35, sats 97%
--- NOTE | 2019-04-18 04:00 | NUR ---
NURSE NOTES: Temp 100.5 axillary. Cooling measures done, sponge bath given. Tylenol 650 mg suppository given. Skin remains dry and intact
[2019-04-18] MEDS: Acetaminophen 650 MG SUPP RECTAL PRN ×2 (04:33→08:53)
[2019-04-18] MEDS: Metoprolol 5mg/5ml Inj IVP SCH ×4 (05:50→23:38)
[2019-04-18] MEDS: Vancomycin 275 ML IVPB SCH (05:52)
[2019-04-18] MEDS: NovoLOG Insulin Flexpen SUBQ SCH ×4 (05:53→20:57)
[2019-04-18] MEDS ORDERED: Vancomycin 1.25gm Premix IVPB SCH (06:00)
--- NOTE | 2019-04-18 06:07 | NUR ---
NURSE NOTES: Temp 99.9 axillary. Continues on the Bipap; tolerating well; saturating 98-99%. No evidence of any pain/discomfort. pt calm, asleep; no distress.
[2019-04-18 06:32] LABS: BASOPHILS % (AUTO) 0.3 % (0.0-2.0); EOSINOPHILS % (AUTO) 0.3 % (0.0-3.0); HEMATOCRIT 31.1 % (37.0-47.0); HEMOGLOBIN 9.8 G/DL (12.0-16.0); LYMPHOCYTES % (AUTO) 10.3 % (20.0-45.0); MEAN CORPUSCULAR VOLUME 87 FL (80-99); MONOCYTES % (AUTO) 5.6 % (1.0-10.0); NEUTROPHILS % (AUTO) 83.5 % (45.0-75.0); PLATELET COUNT 202 K/UL (150-450); RED BLOOD COUNT 3.59 M/UL (4.20-5.40); RED CELL DISTRIBUTION WIDTH 14.4 % (11.6-14.8); WHITE BLOOD COUNT 14.3 K/UL (4.8-10.8)
[2019-04-18 06:47] LABS: INR 1.3 (0.9-1.1)
[2019-04-18 07:04] LABS: CHLORIDE 107 MMOL/L (98-107); POTASSIUM 3.6 MMOL/L (3.5-5.1); SODIUM 141 MMOL/L (136-145)
[2019-04-18 07:05] LABS: ALANINE AMINOTRANSFERASE 10 U/L (12-78); ALBUMIN 1.3 G/DL (3.4-5.0); ALBUMIN/GLOBULIN RATIO 0.2 (1.0-2.7); ALKALINE PHOSPHATASE 91 U/L (46-116); ANION GAP 16 mmol/L (5-15); ASPARTATE AMINO TRANSFERASE 19 U/L (15-37); BILIRUBIN,TOTAL 0.4 MG/DL (0.2-1.0); BLOOD UREA NITROGEN 33 mg/dL (7-18); CALCIUM 9.2 MG/DL (8.5-10.1); CARBON DIOXIDE 18 MMOL/L (21-32); CREATININE 1.5 MG/DL (0.55-1.30); PHOSPHORUS 3.2 MG/DL (2.5-4.9)
--- NOTE | 2019-04-18 07:10 | NUR ---
HAND-OFF: Report given to Neva Maher RN.
--- NOTE | 2019-04-18 07:27 | NUR ---
RESPIRATORY NOTES: Received Patient on BIPAP 15/5 PS +10 BUR 14 Fio2 35%. Patient currently on facial mask with tape in place, no redness or skin breakdown noticed. Bilateral breath sounds reveal rhonchi. Patient currently lethargic, no distress noted. Will continue to closely monitor throughout the day.
--- NOTE | 2019-04-18 07:29 | NUR ---
NURSE NOTES: Report received from HORTENCIA Mckenzie. Observed patient in bed. Awake but non-verbal.On BIPAP with setting of 15/5, FiO2 35% and no acute distress noted. No s/s of pain at this time. F/C intact and draining well. IV site intact with IVF running at prescribed rate. Bed in lowest position. Call light within reach. Will continue to monitor. .
--- NOTE | 2019-04-18 08:00 | NUR ---
NURSE NOTES: Noted with fever of 100.3. Tylenol was given around 0400. Ice pack applied. Will continue to monitor.
--- NOTE | 2019-04-18 08:48 | General Progress Note ---
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 ICD Codes: E11.22 - Type 2 diabetes mellitus with diabetic chronic kidney disease; N18.4 - Chronic kidney disease, stage 4 (severe) SNOMED: 30841012, 356219407, 158042333 (3) Diabetes mellitus ICD Codes: E11.9 - Type 2 diabetes mellitus without complications SNOMED: 19333902 (4) CAD (coronary artery disease) ICD Codes: I25.10 - Atherosclerotic heart disease of [place] coronary artery without angina pectoris SNOMED: 65718457 (5) History of CVA (cerebrovascular accident) ICD Codes: Z86.73 - Personal history of transient ischemic attack (TIA), and cerebral infarction without residual deficits SNOMED: 813135115 (6) Anemia in chronic kidney disease (CKD) ICD Codes: N18.9 - Chronic kidney disease, unspecified; D63.1 - Anemia in chronic kidney disease SNOMED: 637832143 (7) Diabetic nephropathy ICD Codes: E11.21 - Type 2 diabetes mellitus with diabetic nephropathy SNOMED: 727473249 Status: stable Assessment/Plan: on BIPAP NPO not stable for PEG consider NGT placement and feeding tomorrow Subjective ROS Limited/Unobtainable: No Allergies: Coded Allergies: No Known Allergies (Unverified , 04/12/19) Objective Last 24 Hour Vital Signs Date Time Temp Pulse Resp B/P (MAP) Pulse Ox O2 Delivery O2 Flow Rate FiO2 04/18/19 08:00 100.3 109 25 135/94 (108) 99 04/18/19 08:00 Bi-pap 04/18/19 08:00 35 04/18/19 07:09 97 Bi-Pap 35 04/18/19 07:09 103 26 97 Facial 35 04/18/19 07:07 106 26 138/94 (109) 96 04/18/19 06:00 99.9 107 24 138/67 (90) 99 04/18/19 05:50 116 138/60 04/18/19 05:10 99.9 04/18/19 05:00 106 22 138/60 (86) 99 04/18/19 04:48 112 22 98 Facial 35 04/18/19 04:00 100.5 108 22 124/105 (111) 97 04/18/19 04:00 35 04/18/19 04:00 108 04/18/19 04:00 Bi-pap 04/18/19 03:46 100 22 98 Facial 35 04/18/19 03:00 105 22 112/67 (82) 96 04/18/19 02:00 103 24 116/65 (82) 97 04/18/19 01:16 100 21 98 Facial 35 04/18/19 01:00 100 23 118/65 (82) 97 04/18/19 00:06 99 04/18/19 00:04 Bi-pap 04/18/19 00:00 99.6 99 22 119/65 (83) 97 04/18/19 00:00 35 04/17/19 23:53 112 126/66 04/17/19 23:00 108 22 126/66 (86) 98 04/17/19 22:46 98 16 99 Facial 35 04/17/19 22:00 102 24 111/66 (81) 99 04/17/19 21:00 94 24 108/56 (73) 97 04/17/19 20:59 106 24 98 Facial 35 04/17/19 20:24 95 Bi-Pap 35 04/17/19 20:23 96 21 98 Facial 35 04/17/19 20:00 35 04/17/19 20:00 102 04/17/19 20:00 99.3 102 24 113/59 (77) 96 04/17/19 20:00 Bi-pap 04/17/19 19:00 100 24 125/72 (89) 98 04/17/19 18:00 98 23 111/68 (82) 98 04/17/19 17:47 100 23 100 Bi-Pap 35 04/17/19 17:41 107 129/58 04/17/19 17:40 35 04/17/19 17:35 106 26 97 Bi-Pap 35 04/17/19 17:00 98.2 104 24 120/58 (78) 97 04/17/19 16:53 95 21 98 Facial 35 04/17/19 16:17 102 04/17/19 16:00 99 23 118/75 (89) 97 04/17/19 16:00 50 04/17/19 16:00 100 18 129/58 (81) 96 6/22/19 16:00 Bi-pap 04/17/19 15:25 99 25 98 Facial 40 04/17/19 15:00 96 24 111/65 (80) 98 04/17/19 14:00 92 22 111/57 (75) 99 04/17/19 13:09 103 113/59 04/17/19 13:00 105 21 113/59 (77) 100 04/17/19 12:58 97 21 100 Facial 40 04/17/19 12:18 98 04/17/19 12:00 100 22 114/63 (80) 99 04/17/19 12:00 50 04/17/19 11:00 Bi-pap 04/17/19 11:00 98.3 112 23 107/71 (83) 99 04/17/19 10:55 104 22 99 Facial 50 04/17/19 10:53 103 21 99 Bi-Pap 50 04/17/19 10:52 98 Bi-Pap 100 04/17/19 10:50 50 Intake and Output 04/17/19 04/18/19 19:00 07:00 Intake Total 505 ml 783.333 ml Output Total 505 ml 315 ml Balance 0 ml 468.333 ml Intake Oral 0 ml IV Total 505 ml 783.333 ml Output Urine Total 505 ml 315 ml # Bowel Movements 1 4 Laboratory Tests 04/17/19 09:20: White Blood Count 15.2H, Red Blood Count 3.44L, Hemoglobin 9.4L, Hematocrit 29.8L, Mean Corpuscular Volume 87, Mean Corpuscular Hemoglobin 27.2, Mean Corpuscular Hemoglobin Concent 31.4L, Red Cell Distribution Width 14.1, Platelet Count 215, Mean Platelet Volume 9.1, Neutrophils (%) (Auto) 81.2H, Lymphocytes (%) (Auto) 12.5L, Monocytes (%) (Auto) 5.7, Eosinophils (%) (Auto) 0.3, Basophils (%) (Auto) 0.4, Sodium Level 140, Potassium Level 3.6, Chloride Level 106, Carbon Dioxide Level 21, Anion Gap 13, Blood Urea Nitrogen 36H, Creatinine 1.6H, Estimat Glomerular Filtration Rate , Glucose Level 231H, Calcium Level 9.0, Total Bilirubin 0.3, Aspartate Amino Transf (AST/SGOT) 18, Alanine Aminotransferase (ALT/SGPT) 8L, Alkaline Phosphatase 96, Pro-B-Type Natriuretic Peptide 6607H, Total Protein 6.9, Albumin 1.2L, Globulin 5.7, Albumin/Globulin Ratio 0.2L 04/18/19 05:15: White Blood Count 14.3H, Red Blood Count 3.59L, Hemoglobin 9.8L, Hematocrit 31.1L, Mean Corpuscular Volume 87, Mean Corpuscular Hemoglobin 27.4, Mean Corpuscular Hemoglobin Concent 31.5L, Red Cell Distribution Width 14.4, Platelet Count 202, Mean Platelet Volume 7.8, Neutrophils (%) (Auto) 83.5H, Lymphocytes (%) (Auto) 10.3L, Monocytes (%) (Auto) 5.6, Eosinophils (%) (Auto) 0.3, Basophils (%) (Auto) 0.3, Sodium Level 141, Potassium Level 3.6, Chloride Level 107, Carbon Dioxide Level 18L, Anion Gap 16H, Blood Urea Nitrogen 33H, Creatinine 1.5H, Estimat Glomerular Filtration Rate , Glucose Level 163H, Calcium Level 9.2, Total Bilirubin 0.4, Aspartate Amino Transf (AST/SGOT) 19, Alanine Aminotransferase (ALT/SGPT) 10L, Alkaline Phosphatase 91, Total Protein 7.3, Albumin 1.3L, Globulin 6.0, Albumin/Globulin Ratio 0.2L, Prothrombin Time 13.6H, Prothromb Time International Ratio 1.3H, Activated Partial Thromboplast Time 34H, Phosphorus Level 3.2, Magnesium Level 1.8 Height (Feet): 5 Height (Inches): 3.00 Weight (Pounds): 176 General Appearance: lethargic EENT: normal ENT inspection Neck: supple Cardiovascular: tachycardia Respiratory/Chest: decreased breath sounds Abdomen: normal bowel sounds, non tender, soft Extremities: non-tender Darron Gentile MD Apr 18, 2019 08:48
[2019-04-18] MEDS ORDERED: Cefepime HCl 2 GM in D5W 110 ML IV SCH (09:00)
[2019-04-18] MEDS ORDERED: Cefepime 2gm/D5W 110ml IV SCH ×2 (09:00)
--- NOTE | 2019-04-18 09:22 | Infectious Diseases Prog Note ---
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 PNA CXR - B/L Infiltrates Aferbile WBCs up to 25 Sp Cx - C. alb Widened mediastinum - right sided aortic arch CXR - Apparent upper mediastinal widening. Possibly due to ectatic vasculature and body habitus, but upper mediastinal mass also possible. Correlate with any prior adiographs and may be available, consider CT for further evaluation if clinically indicated CT 04/13/19 - Right-sided aortic arch, presumably accounting for the apparent upper mediastinal widening demonstrated on recent plain radiograph. No evidence of upper mediastinal mass. Extensive bilateral lower lobe consolidation , likely pneumonia, less extensive left upper lobe consolidation. 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 CKD CAD PLAN - Start Meropenem #1 - Continue Vancomycin #6/7-10 pending Cx - 04/18/19 S/P Cefepime #6 - f/u cultures - f/u Urine legionella - Monitor CBC and Temps Thank you for this consult. We will continue to follow the patient during this hospitalization. Subjective Allergies: Coded Allergies: No Known Allergies (Unverified , 04/12/19) Subjective On BiPAP Afebrile Leukocytosis slowly improving Objective Vital Signs Last 24 Hour Vital Signs Date Time Temp Pulse Resp B/P (MAP) Pulse Ox O2 Delivery O2 Flow Rate FiO2 04/18/19 09:04 109 24 98 Facial 35 04/18/19 09:00 102 24 128/72 (90) 99 04/18/19 08:00 100.3 109 25 135/94 (108) 99 04/18/19 08:00 Bi-pap 04/18/19 08:00 35 04/18/19 07:09 97 Bi-Pap 35 04/18/19 07:09 103 26 97 Facial 35 04/18/19 07:07 106 26 138/94 (109) 96 04/18/19 06:00 99.9 107 24 138/67 (90) 99 04/18/19 05:50 116 138/60 04/18/19 05:10 99.9 04/18/19 05:00 106 22 138/60 (86) 99 04/18/19 04:48 112 22 98 Facial 35 04/18/19 04:00 100.5 108 22 124/105 (111) 97 04/18/19 04:00 35 04/18/19 04:00 108 04/18/19 04:00 Bi-pap 04/18/19 03:46 100 22 98 Facial 35 04/18/19 03:00 105 22 112/67 (82) 96 04/18/19 02:00 103 24 116/65 (82) 97 04/18/19 01:16 100 21 98 Facial 35 04/18/19 01:00 100 23 118/65 (82) 97 04/18/19 00:06 99 04/18/19 00:04 Bi-pap 04/18/19 00:00 99.6 99 22 119/65 (83) 97 04/18/19 00:00 35 04/17/19 23:53 112 126/66 04/17/19 23:00 108 22 126/66 (86) 98 04/17/19 22:46 98 16 99 Facial 35 04/17/19 22:00 102 24 111/66 (81) 99 04/17/19 21:00 94 24 108/56 (73) 97 04/17/19 20:59 106 24 98 Facial 35 04/17/19 20:24 95 Bi-Pap 35 04/17/19 20:23 96 21 98 Facial 35 04/17/19 20:00 35 04/17/19 20:00 102 04/17/19 20:00 99.3 102 24 113/59 (77) 96 04/17/19 20:00 Bi-pap 04/17/19 19:00 100 24 125/72 (89) 98 04/17/19 18:00 98 23 111/68 (82) 98 04/17/19 17:47 100 23 100 Bi-Pap 35 04/17/19 17:41 107 129/58 04/17/19 17:40 35 04/17/19 17:35 106 26 97 Bi-Pap 35 04/17/19 17:00 98.2 104 24 120/58 (78) 97 04/17/19 16:53 95 21 98 Facial 35 04/17/19 16:17 102 04/17/19 16:00 99 23 118/75 (89) 97 04/17/19 16:00 50 6/22/19 16:00 100 18 129/58 (81) 96 04/17/19 16:00 Bi-pap 04/17/19 15:25 99 25 98 Facial 40 04/17/19 15:00 96 24 111/65 (80) 98 04/17/19 14:00 92 22 111/57 (75) 99 04/17/19 13:09 103 113/59 04/17/19 13:00 105 21 113/59 (77) 100 04/17/19 12:58 97 21 100 Facial 40 04/17/19 12:18 98 04/17/19 12:00 100 22 114/63 (80) 99 04/17/19 12:00 50 04/17/19 11:00 Bi-pap 04/17/19 11:00 98.3 112 23 107/71 (83) 99 04/17/19 10:55 104 22 99 Facial 50 04/17/19 10:53 103 21 99 Bi-Pap 50 04/17/19 10:52 98 Bi-Pap 100 04/17/19 10:50 50 Height (Feet): 5 Height (Inches): 3.00 Weight (Pounds): 176 Objective Gen: Awake and talking HEENT: NCAT, MMM, EOMI LUNGS: CTAB, No W CARDS: RRR, S1, S2, No M/R/G, ABD: Soft, NT, ND Laboratory Tests Test 04/18/19 05:15 White Blood Count 14.3 K/UL (4.8-10.8) H Red Blood Count 3.59 M/UL (4.20-5.40) L Hemoglobin 9.8 G/DL (12.0-16.0) L Hematocrit 31.1 % (37.0-47.0) L Mean Corpuscular Volume 87 FL (80-99) Mean Corpuscular Hemoglobin 27.4 PG (27.0-31.0) Mean Corpuscular Hemoglobin Concent 31.5 G/DL (32.0-36.0) L Red Cell Distribution Width 14.4 % (11.6-14.8) Platelet Count 202 K/UL (150-450) Mean Platelet Volume 7.8 FL (6.5-10.1) Neutrophils (%) (Auto) 83.5 % (45.0-75.0) H Lymphocytes (%) (Auto) 10.3 % (20.0-45.0) L Monocytes (%) (Auto) 5.6 % (1.0-10.0) Eosinophils (%) (Auto) 0.3 % (0.0-3.0) Basophils (%) (Auto) 0.3 % (0.0-2.0) Prothrombin Time 13.6 SEC (9.30-11.50) H Prothromb Time International Ratio 1.3 (0.9-1.1) H Activated Partial Thromboplast Time 34 SEC (23-33) H Sodium Level 141 MMOL/L (136-145) Potassium Level 3.6 MMOL/L (3.5-5.1) Chloride Level 107 MMOL/L (98-107) Carbon Dioxide Level 18 MMOL/L (21-32) L Anion Gap 16 mmol/L (5-15) H Blood Urea Nitrogen 33 mg/dL (7-18) H Creatinine 1.5 MG/DL (0.55-1.30) H Estimat Glomerular Filtration Rate mL/min (>60) Glucose Level 163 MG/DL (74-106) H Calcium Level 9.2 MG/DL (8.5-10.1) Phosphorus Level 3.2 MG/DL (2.5-4.9) Magnesium Level 1.8 MG/DL (1.8-2.4) Total Bilirubin 0.4 MG/DL (0.2-1.0) Aspartate Amino Transf (AST/SGOT) 19 U/L (15-37) Alanine Aminotransferase (ALT/SGPT) 10 U/L (12-78) L Alkaline Phosphatase 91 U/L (46-116) Total Protein 7.3 G/DL (6.4-8.2) Albumin 1.3 G/DL (3.4-5.0) L Globulin 6.0 g/dL Albumin/Globulin Ratio 0.2 (1.0-2.7) L Current Medications Medications (Trade) Dose Ordered Sig/Kenisha Route PRN Reason Start Time Stop Time Status Last Admin Dose Admin Acetaminophen (Tylenol) 650 mg Q4H PRN ORAL FEVER 04/17/19 12:36 05/17/19 12:35 Acetaminophen (Tylenol) 650 mg Q4H PRN RECTAL Fever 04/17/19 12:36 05/17/19 12:35 04/18/19 08:53 Albuterol/ Ipratropium (Albuterol/ Ipratropium) 3 ml Q4H PRN HHN Shortness of Breath 04/17/19 12:36 04/22/19 12:35 04/17/19 17:44 Cefepime HCl 2 gm/ Dextrose 110 ml @ 220 mls/hr Q24H IV 04/18/19 09:00 04/25/19 08:59 04/18/19 09:00 Clopidogrel Bisulfate (Plavix) 75 mg DAILY ORAL 04/18/19 09:00 05/13/19 08:59 Dextrose 1,000 ml @ 50 mls/hr Q20H IV 04/17/19 12:35 05/17/19 12:34 04/18/19 08:22 Dextrose (Dextrose 50%) 25 ml Q30M PRN IV Hypoglycemia 04/17/19 12:45 05/12/19 19:44 Dextrose (Dextrose 50%) 50 ml Q30M PRN IV Hypoglycemia 04/17/19 12:45 05/12/19 19:44 Epoetin Bandar (Epoetin Bandar-EPBX(NON ESRD)) 10,000 unit FRI-FRI-FRI SUBQ 04/19/19 21:00 05/16/19 20:59 Folic Acid (Folate) 5 mg DAILY ORAL 04/18/19 09:00 05/15/19 15:44 Hydralazine HCl (Apresoline) 10 mg Q2H PRN IV For High Blood Pressure 04/17/19 12:36 05/17/19 12:35 Insulin Aspart (NovoLOG) BEFORE MEALS AND HS SUBQ 04/17/19 16:30 05/12/19 20:59 04/18/19 05:53 Lorazepam (Ativan) 0.5 mg Q6H PRN ORAL For Anxiety 04/17/19 12:37 04/24/19 12:36 Metoprolol Tartrate (Lopressor) 5 mg EVERY 6 HOURS IVP 04/17/19 13:00 05/14/19 12:59 04/18/19 05:50 Morphine Sulfate (Morphine Sulfate) 2 mg Q4H PRN IVP Severe Pain (Pain Scale 7-10) 04/17/19 12:37 04/24/19 12:36 Ondansetron HCl (Zofran) 4 mg Q6H PRN IVP Nausea & Vomiting 04/17/19 12:37 05/17/19 12:36 Polyethylene Glycol (Miralax) 17 gm DAILYPRN PRN ORAL Constipation 04/17/19 12:37 05/17/19 12:36 Vancomycin HCl (Vanco rx to dose) 1 ea DAILY PRN MISC Per rx protocol 04/18/19 09:00 05/12/19 17:29 Vancomycin HCl/ Dextrose 275 ml @ 183.333 mls/hr Q48H IVPB 04/18/19 06:00 04/23/19 05:59 04/18/19 05:52 Gildardo Gonsalves MD Apr 18, 2019 09:22
--- NOTE | 2019-04-18 10:00 | Progress Note ---
DATE: 04/18/2019 SUBJECTIVE: This is a 79-year-old female patient with sepsis versus confusion, altered mental status, decline in cognition below baseline. MENTAL STATUS EXAMINATION: This is a 79-year-old female. Appearance is disheveled. Attitude, irritable and agitated. Affect, guarded and restricted. Intellect poor. Mood depressed and anxious. Motor activity, psychomotor agitation. Attention span is poor. Orientation x2. Speech is pressured. Thought process, disorganized, illogical. Insight and judgment is poor. DIAGNOSES: 1. Paranoid schizophrenia with acute exacerbation. 2. Anxiety disorder, mild, recurrent with psychotic features. PLAN: Plan for this patient is to treat her with Namenda 5 mg twice a day, Ativan 0.5 mg every 6 hours p.r.n. anxiety. A 20 minutes of cognitive behavioral therapy to help her identify automatic negative thoughts and help her convert those negative thoughts to more positive thoughts to reduce depression, anxiety, suicidality, and mood lability. Omar Glover M.D. DR: ANNA JOB#: [id number] CC:
--- NOTE | 2019-04-18 10:00 | NUR ---
NURSE NOTES: Tylenol given for fever. Temperature re-checked and noted with 98.6. Turn and repositioning the patient. Will continue to monitor.
[2019-04-18] MEDS: Meropenem 1 GM in NS 55 ML IVPB SCH ×2 (10:39→22:34)
--- NOTE | 2019-04-18 10:56 | Nephrology Progress Note ---
Assessment/Plan Problem List: (1) Renal failure (ARF), acute on chronic (2) Diabetic nephropathy (3) Sepsis (4) Pneumonia (5) Right hemiplegia (6) Anemia in chronic kidney disease (CKD) (7) Pulmonary hypertension Assessment Renal failure; - Pre Renal - ? Underlying Renal Anemia Pneumonia / respiratory failure ? aspiration prone Sepsis elevated Troponin UTI HyperGlycemia / DM Right Esvin HTN Plan K Phos IV as needed venofer Folate 24 H urine protein check 2.4 gram Fraga Hydrate BP and BS control urine studies slow hydrate kidney MAIKEL results noted: No [place] ? NGT vs PEG 2D echo Noted visualized except distal setum and inferiro wall hypokinesis Left ventricular ejection fraction estimated to be 55-60 %. avoid Nephrotoxics per orders Subjective ROS Limited/Unobtainable: No Constitutional: Reports: malaise, weakness Objective Objective Last 24 Hour Vital Signs Date Time Temp Pulse Resp B/P (MAP) Pulse Ox O2 Delivery O2 Flow Rate FiO2 04/18/19 10:51 102 22 99 Full Face 35 04/18/19 10:00 103 26 111/65 (80) 97 04/18/19 09:23 98.6 04/18/19 09:04 109 24 98 Facial 35 04/18/19 09:00 102 24 128/72 (90) 99 04/18/19 08:00 100.3 109 25 135/94 (108) 99 04/18/19 08:00 Bi-pap 04/18/19 08:00 106 04/18/19 08:00 35 04/18/19 07:09 97 Bi-Pap 35 04/18/19 07:09 103 26 97 Facial 35 04/18/19 07:07 106 26 138/94 (109) 96 04/18/19 06:00 99.9 107 24 138/67 (90) 99 04/18/19 05:50 116 138/60 04/18/19 05:00 106 22 138/60 (86) 99 04/18/19 04:48 112 22 98 Facial 35 04/18/19 04:00 100.5 108 22 124/105 (111) 97 04/18/19 04:00 35 04/18/19 04:00 108 04/18/19 04:00 Bi-pap 04/18/19 03:46 100 22 98 Facial 35 04/18/19 03:00 105 22 112/67 (82) 96 04/18/19 02:00 103 24 116/65 (82) 97 04/18/19 01:16 100 21 98 Facial 35 04/18/19 01:00 100 23 118/65 (82) 97 04/18/19 00:06 99 04/18/19 00:04 Bi-pap 04/18/19 00:00 99.6 99 22 119/65 (83) 97 04/18/19 00:00 35 04/17/19 23:53 112 126/66 04/17/19 23:00 108 22 126/66 (86) 98 04/17/19 22:46 98 16 99 Facial 35 04/17/19 22:00 102 24 111/66 (81) 99 04/17/19 21:00 94 24 108/56 (73) 97 04/17/19 20:59 106 24 98 Facial 35 04/17/19 20:24 95 Bi-Pap 35 04/17/19 20:23 96 21 98 Facial 35 04/17/19 20:00 35 04/17/19 20:00 102 04/17/19 20:00 99.3 102 24 113/59 (77) 96 04/17/19 20:00 Bi-pap 04/17/19 19:00 100 24 125/72 (89) 98 04/17/19 18:00 98 23 111/68 (82) 98 04/17/19 17:47 100 23 100 Bi-Pap 35 04/17/19 17:41 107 129/58 04/17/19 17:40 35 04/17/19 17:35 106 26 97 Bi-Pap 35 04/17/19 17:00 98.2 104 24 120/58 (78) 97 04/17/19 16:53 95 21 98 Facial 35 04/17/19 16:17 102 04/17/19 16:00 99 23 118/75 (89) 97 04/17/19 16:00 50 04/17/19 16:00 100 18 129/58 (81) 96 04/17/19 16:00 Bi-pap 04/17/19 15:25 99 25 98 Facial 40 04/17/19 15:00 96 24 111/65 (80) 98 04/17/19 14:00 92 22 111/57 (75) 99 04/17/19 13:09 103 113/59 04/17/19 13:00 105 21 113/59 (77) 100 04/17/19 12:58 97 21 100 Facial 40 04/17/19 12:18 98 04/17/19 12:00 100 22 114/63 (80) 99 04/17/19 12:00 50 04/17/19 11:00 Bi-pap 04/17/19 11:00 98.3 112 23 107/71 (83) 99 Intake and Output 04/17/19 04/18/19 19:00 07:00 Intake Total 505 ml 783.333 ml Output Total 505 ml 315 ml Balance 0 ml 468.333 ml Intake Oral 0 ml IV Total 505 ml 783.333 ml Output Urine Total 505 ml 315 ml # Bowel Movements 1 4 Laboratory Tests 04/18/19 05:15: White Blood Count 14.3H, Red Blood Count 3.59L, Hemoglobin 9.8L, Hematocrit 31.1L, Mean Corpuscular Volume 87, Mean Corpuscular Hemoglobin 27.4, Mean Corpuscular Hemoglobin Concent 31.5L, Red Cell Distribution Width 14.4, Platelet Count 202, Mean Platelet Volume 7.8, Neutrophils (%) (Auto) 83.5H, Lymphocytes (%) (Auto) 10.3L, Monocytes (%) (Auto) 5.6, Eosinophils (%) (Auto) 0.3, Basophils (%) (Auto) 0.3, Prothrombin Time 13.6H, Prothromb Time International Ratio 1.3H, Activated Partial Thromboplast Time 34H, Sodium Level 141, Potassium Level 3.6, Chloride Level 107, Carbon Dioxide Level 18L, Anion Gap 16H, Blood Urea Nitrogen 33H, Creatinine 1.5H, Estimat Glomerular Filtration Rate , Glucose Level 163H, Calcium Level 9.2, Phosphorus Level 3.2, Magnesium Level 1.8, Total Bilirubin 0.4, Aspartate Amino Transf (AST/SGOT) 19, Alanine Aminotransferase (ALT/SGPT) 10L, Alkaline Phosphatase 91, Total Protein 7.3, Albumin 1.3L, Globulin 6.0, Albumin/Globulin Ratio 0.2L Height (Feet): 5 Height (Inches): 3.00 Weight (Pounds): 176 General Appearance: lethargic Cardiovascular: tachycardia Respiratory/Chest: decreased breath sounds Abdomen: distended Fouladian,Wally MD Apr 18, 2019 10:56
--- NOTE | 2019-04-18 12:00 | NUR ---
NURSE NOTES: Patient is on 4L of nasal cannula with no distress noted. Deep suctioning provided by RT. Turn and repositioning the patient.
--- NOTE | 2019-04-18 12:17 | NUR ---
PT Note Patient has been transferred to ICU. Will need a new order to resume physical therapy when patient is medically stable.
--- NOTE | 2019-04-18 13:25 | Pulmonolgy Critical Care Note ---
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 (7) Hypertensive heart disease (8) Right hemiplegia (9) History of CVA (cerebrovascular accident) (10) CAD (coronary artery disease) Respiratory: monitor respiratory rate, adjust FIO2, CXR Cardiac: continue to monitor HR/BP Renal: F/U I&O, check electrolytes Infectious Disease: check cultures, continue antibiotics Gastrointestinal: continue feedings/current rate Endocrine: monitor blood sugar, continue sliding scale insulin Hematologic: transfuse if hgb<8.5 Neurologic: PRN Ativan, PRN Morphine, keep patient comfortable Prophylaxis: Protonix Notes Reviewed: security system analyst, cardio Discussed with: nurses, consultants, case advocateregistration manager - Objective Last 24 Hour Vital Signs Date Time Temp Pulse Resp B/P (MAP) Pulse Ox O2 Delivery O2 Flow Rate FiO2 04/18/19 12:00 35 04/18/19 12:00 90 04/18/19 12:00 Bi-pap 04/18/19 12:00 98.4 97 25 112/63 (79) 100 04/18/19 11:14 110 117/70 04/18/19 11:00 109 22 117/70 (86) 96 04/18/19 10:51 102 22 99 Full Face 35 04/18/19 10:00 103 26 111/65 (80) 97 04/18/19 09:23 98.6 04/18/19 09:04 109 24 98 Facial 35 04/18/19 09:00 102 24 128/72 (90) 99 04/18/19 08:00 100.3 109 25 135/94 (108) 99 04/18/19 08:00 Bi-pap 04/18/19 08:00 106 04/18/19 08:00 35 04/18/19 07:09 97 Bi-Pap 35 04/18/19 07:09 103 26 97 Facial 35 04/18/19 07:07 106 26 138/94 (109) 96 04/18/19 06:00 99.9 107 24 138/67 (90) 99 04/18/19 05:50 116 138/60 04/18/19 05:00 106 22 138/60 (86) 99 04/18/19 04:48 112 22 98 Facial 35 04/18/19 04:00 100.5 108 22 124/105 (111) 97 04/18/19 04:00 35 04/18/19 04:00 108 04/18/19 04:00 Bi-pap 04/18/19 03:46 100 22 98 Facial 35 04/18/19 03:00 105 22 112/67 (82) 96 04/18/19 02:00 103 24 116/65 (82) 97 04/18/19 01:16 100 21 98 Facial 35 04/18/19 01:00 100 23 118/65 (82) 97 04/18/19 00:06 99 04/18/19 00:04 Bi-pap 04/18/19 00:00 99.6 99 22 119/65 (83) 97 04/18/19 00:00 35 04/17/19 23:53 112 126/66 04/17/19 23:00 108 22 126/66 (86) 98 04/17/19 22:46 98 16 99 Facial 35 04/17/19 22:00 102 24 111/66 (81) 99 04/17/19 21:00 94 24 108/56 (73) 97 04/17/19 20:59 106 24 98 Facial 35 04/17/19 20:24 95 Bi-Pap 35 04/17/19 20:23 96 21 98 Facial 35 04/17/19 20:00 35 04/17/19 20:00 102 04/17/19 20:00 99.3 102 24 113/59 (77) 96 04/17/19 20:00 Bi-pap 04/17/19 19:00 100 24 125/72 (89) 98 04/17/19 18:00 98 23 111/68 (82) 98 04/17/19 17:47 100 23 100 Bi-Pap 35 04/17/19 17:41 107 129/58 04/17/19 17:40 35 04/17/19 17:35 106 26 97 Bi-Pap 35 04/17/19 17:00 98.2 104 24 120/58 (78) 97 04/17/19 16:53 95 21 98 Facial 35 04/17/19 16:17 102 04/17/19 16:00 99 23 118/75 (89) 97 04/17/19 16:00 50 04/17/19 16:00 100 18 129/58 (81) 96 04/17/19 16:00 Bi-pap 04/17/19 15:25 99 25 98 Facial 40 04/17/19 15:00 96 24 111/65 (80) 98 04/17/19 14:00 92 22 111/57 (75) 99 Status: awake Condition: critical HEENT: atraumatic Lungs: rales, rhonchi Heart: HR/BP stable Abdomen: soft, feeding tube Extremities: edema Decubiti: location Accucheck: 186 Critical Care - Subjective ROS Limited/Unobtainable: No Condition: critical EKG Rhythm: Sinus Rhythm FI02: 35 Vent Support Mode: BiLevel Sputum Amount: Large I&O: Intake and Output 04/17/19 04/18/19 19:00 07:00 Intake Total 505 ml 783.333 ml Output Total 505 ml 315 ml Balance 0 ml 468.333 ml Intake Oral 0 ml IV Total 505 ml 783.333 ml Output Urine Total 505 ml 315 ml # Bowel Movements 1 4 CXR: worsening right side Labs: Laboratory Tests Test 04/18/19 05:15 04/18/19 09:32 04/18/19 11:30 White Blood Count 14.3 K/UL (4.8-10.8) H Red Blood Count 3.59 M/UL (4.20-5.40) L Hemoglobin 9.8 G/DL (12.0-16.0) L Hematocrit 31.1 % (37.0-47.0) L Mean Corpuscular Volume 87 FL (80-99) Mean Corpuscular Hemoglobin 27.4 PG (27.0-31.0) Mean Corpuscular Hemoglobin Concent 31.5 G/DL (32.0-36.0) L Red Cell Distribution Width 14.4 % (11.6-14.8) Platelet Count 202 K/UL (150-450) Mean Platelet Volume 7.8 FL (6.5-10.1) Neutrophils (%) (Auto) 83.5 % (45.0-75.0) H Lymphocytes (%) (Auto) 10.3 % (20.0-45.0) L Monocytes (%) (Auto) 5.6 % (1.0-10.0) Eosinophils (%) (Auto) 0.3 % (0.0-3.0) Basophils (%) (Auto) 0.3 % (0.0-2.0) Prothrombin Time 13.6 SEC (9.30-11.50) H Prothromb Time International Ratio 1.3 (0.9-1.1) H Activated Partial Thromboplast Time 34 SEC (23-33) H Sodium Level 141 MMOL/L (136-145) Potassium Level 3.6 MMOL/L (3.5-5.1) Chloride Level 107 MMOL/L (98-107) Carbon Dioxide Level 18 MMOL/L (21-32) L Anion Gap 16 mmol/L (5-15) H Blood Urea Nitrogen 33 mg/dL (7-18) H Creatinine 1.5 MG/DL (0.55-1.30) H Estimat Glomerular Filtration Rate mL/min (>60) Glucose Level 163 MG/DL (74-106) H Calcium Level 9.2 MG/DL (8.5-10.1) Phosphorus Level 3.2 MG/DL (2.5-4.9) Magnesium Level 1.8 MG/DL (1.8-2.4) Total Bilirubin 0.4 MG/DL (0.2-1.0) Aspartate Amino Transf (AST/SGOT) 19 U/L (15-37) Alanine Aminotransferase (ALT/SGPT) 10 U/L (12-78) L Alkaline Phosphatase 91 U/L (46-116) Total Protein 7.3 G/DL (6.4-8.2) Albumin 1.3 G/DL (3.4-5.0) L Globulin 6.0 g/dL Albumin/Globulin Ratio 0.2 (1.0-2.7) L Urine Legionella Antigen Pending Arterial Blood pH 7.333 (7.350-7.450) Arterial Blood Partial Pressure CO2 35.7 mmHg (35.0-45.0) Arterial Blood Partial Pressure O2 101.2 mmHg (75.0-100.0) H Arterial Blood HCO3 18.5 mmol/L (22.0-26.0) L Arterial Blood Oxygen Saturation 97.3 % (95-100) Arterial Blood Base Excess -6.7 (-2-2) L Marlo Test Positive Tony Springer MD Apr 18, 2019 13:25
--- NOTE | 2019-04-18 14:00 | NUR ---
NURSE NOTES: Put the patient back to BIPAP 15/5 FiO2 35% due to elevated respiratory rate. No acute distress noted. Turn and repositioning the patient. Will continue to monitor.
--- NOTE | 2019-04-18 14:51 | Hematology/Onc Progress Note ---
Assessment/Plan Assessment/Plan ASSESSMENT AND RECOMMENDATIONS # Anemia of chronic disease due to underlying chronic medical issues, multifactorial --> Anemia workup has been ordered and reviewed. --> Ferritin 274, iron 6, tibc 143 --> No evidence of hemolysis is noted, peripheral smear has been reviewed. --> Hgb goal >7. Transfuse prn. --> Epogen or iron at this time is not particularly indicated --> Medications have been reviewed --> low threshold for gi evaluation in case has occult + --> Hgb trend: 9.4-->9.8 # Lung mass. First noted on CXR. --> Ct chest has been ordered and reviewed. CT reveals no mass. --> hold off on any tumor marker testing --> as per id and pulm mino, appreciate RECS # Leukocytosis/elevated white blood cell count, unspecified likely related to underlying sepsis due to pna confirmed by CT chest and CXR --> have reviewed peripheral smear and bandemia/neutrophilia noted --> continue antibiotics if they have been started by ID team --> monitor for resolution --> trend 25-->20-->15k-->16.3-->14.3 # Respiratory distress. BiPAP per Pulmonary. # Sepsis d/t pna and uti. --> Antibiotics per Infectious Disease. # Renal failure. Nephro is following, appreciate recs # Elevated troponin. Recs per cardiology # Malnutrition. --> Dietary to follow. The time this note is entered does not reflect the time the patient was examined. I greatly appreciate the consultation. Subjective Allergies: Coded Allergies: No Known Allergies (Unverified , 04/12/19) All Systems: reviewed and negative except above Subjective 04/15: no events reported, no f/c, on abx, seen by id, pulm, hgb remains stable 04/16: Pt resting in bed, nonverbal. No distress noted. WBC remains elevated. Plan to transfer to the [facility]. 04/18: Pt in ICU. CXR yesterday shows pna. H/H stable. On BiPAP. Objective Objective Current Medications Medications (Trade) Dose Ordered Sig/Kenisha Route PRN Reason Start Time Stop Time Status Last Admin Dose Admin Acetaminophen (Tylenol) 650 mg Q4H PRN ORAL FEVER 04/17/19 12:36 05/17/19 12:35 Acetaminophen (Tylenol) 650 mg Q4H PRN RECTAL Fever 04/17/19 12:36 05/17/19 12:35 04/18/19 08:53 Albuterol/ Ipratropium (Albuterol/ Ipratropium) 3 ml Q4H PRN HHN Shortness of Breath 04/17/19 12:36 04/22/19 12:35 04/17/19 17:44 Dextrose (Dextrose 50%) 25 ml Q30M PRN IV Hypoglycemia 04/17/19 12:45 05/12/19 19:44 Dextrose (Dextrose 50%) 50 ml Q30M PRN IV Hypoglycemia 04/17/19 12:45 05/12/19 19:44 Epoetin Bandar (Epoetin Bandar-EPBX(NON ESRD)) 10,000 unit FRI-FRI-FRI SUBQ 04/19/19 21:00 05/16/19 20:59 Hydralazine HCl (Apresoline) 10 mg Q2H PRN IV For High Blood Pressure 04/17/19 12:36 05/17/19 12:35 Insulin Aspart (NovoLOG) BEFORE MEALS AND HS SUBQ 04/17/19 16:30 05/12/19 20:59 04/18/19 11:16 Lorazepam (Ativan) 0.5 mg Q6H PRN ORAL For Anxiety 04/17/19 12:37 04/24/19 12:36 Meropenem 1 gm/ Sodium Chloride 55 ml @ 110 mls/hr Q12HR@1100,2300 IVPB 04/18/19 11:00 04/23/19 10:59 04/18/19 10:39 Metoprolol Tartrate (Lopressor) 5 mg EVERY 6 HOURS IVP 04/17/19 13:00 05/14/19 12:59 04/18/19 11:14 Morphine Sulfate (Morphine Sulfate) 2 mg Q4H PRN IVP Severe Pain (Pain Scale 7-10) 04/17/19 12:37 04/24/19 12:36 Ondansetron HCl (Zofran) 4 mg Q6H PRN IVP Nausea & Vomiting 04/17/19 12:37 05/17/19 12:36 Polyethylene Glycol (Miralax) 17 gm DAILYPRN PRN ORAL Constipation 04/17/19 12:37 05/17/19 12:36 Vancomycin HCl (Vanco rx to dose) 1 ea DAILY PRN MISC Per rx protocol 04/18/19 09:00 05/12/19 17:29 Vancomycin HCl/ Dextrose 275 ml @ 183.333 mls/hr Q48H IVPB 04/18/19 06:00 04/23/19 05:59 04/18/19 05:52 Last 24 Hour Vital Signs Date Time Temp Pulse Resp B/P (MAP) Pulse Ox O2 Delivery O2 Flow Rate FiO2 04/18/19 14:37 95 24 98 Full Face 35 04/18/19 14:00 99 26 127/84 (98) 96 04/18/19 13:45 104 24 98 Full Face 35 04/18/19 13:00 101 31 129/70 (89) 98 04/18/19 12:00 35 04/18/19 12:00 90 04/18/19 12:00 Bi-pap 04/18/19 12:00 98.4 97 25 112/63 (79) 100 04/18/19 11:14 110 117/70 04/18/19 11:00 109 22 117/70 (86) 96 04/18/19 10:51 102 22 99 Full Face 35 04/18/19 10:00 103 26 111/65 (80) 97 04/18/19 09:23 98.6 04/18/19 09:04 109 24 98 Facial 35 04/18/19 09:00 102 24 128/72 (90) 99 04/18/19 08:00 100.3 109 25 135/94 (108) 99 04/18/19 08:00 Bi-pap 04/18/19 08:00 106 04/18/19 08:00 35 04/18/19 07:09 97 Bi-Pap 35 04/18/19 07:09 103 26 97 Facial 35 04/18/19 07:07 106 26 138/94 (109) 96 04/18/19 06:00 99.9 107 24 138/67 (90) 99 04/18/19 05:50 116 138/60 04/18/19 05:00 106 22 138/60 (86) 99 04/18/19 04:48 112 22 98 Facial 35 04/18/19 04:00 100.5 108 22 124/105 (111) 97 04/18/19 04:00 35 04/18/19 04:00 108 04/18/19 04:00 Bi-pap 04/18/19 03:46 100 22 98 Facial 35 04/18/19 03:00 105 22 112/67 (82) 96 04/18/19 02:00 103 24 116/65 (82) 97 04/18/19 01:16 100 21 98 Facial 35 04/18/19 01:00 100 23 118/65 (82) 97 04/18/19 00:06 99 04/18/19 00:04 Bi-pap 04/18/19 00:00 99.6 99 22 119/65 (83) 97 04/18/19 00:00 35 04/17/19 23:53 112 126/66 04/17/19 23:00 108 22 126/66 (86) 98 04/17/19 22:46 98 16 99 Facial 35 04/17/19 22:00 102 24 111/66 (81) 99 04/17/19 21:00 94 24 108/56 (73) 97 04/17/19 20:59 106 24 98 Facial 35 04/17/19 20:24 95 Bi-Pap 35 04/17/19 20:23 96 21 98 Facial 35 04/17/19 20:00 35 04/17/19 20:00 102 04/17/19 20:00 99.3 102 24 113/59 (77) 96 04/17/19 20:00 Bi-pap 04/17/19 19:00 100 24 125/72 (89) 98 04/17/19 18:00 98 23 111/68 (82) 98 04/17/19 17:47 100 23 100 Bi-Pap 35 04/17/19 17:41 107 129/58 04/17/19 17:40 35 04/17/19 17:35 106 26 97 Bi-Pap 35 04/17/19 17:00 98.2 104 24 120/58 (78) 97 04/17/19 16:53 95 21 98 Facial 35 04/17/19 16:17 102 04/17/19 16:00 99 23 118/75 (89) 97 04/17/19 16:00 50 04/17/19 16:00 100 18 129/58 (81) 96 04/17/19 16:00 Bi-pap 04/17/19 15:25 99 25 98 Facial 40 04/17/19 15:00 96 24 111/65 (80) 98 04/17/19 14:00 92 22 111/57 (75) 99 04/17/19 13:09 103 113/59 04/17/19 13:00 105 21 113/59 (77) 100 04/17/19 12:58 97 21 100 Facial 40 04/17/19 12:18 98 04/17/19 12:00 100 22 114/63 (80) 99 04/17/19 12:00 50 04/17/19 11:00 Bi-pap 04/17/19 11:00 98.3 112 23 107/71 (83) 99 04/17/19 10:55 104 22 99 Facial 50 04/17/19 10:53 103 21 99 Bi-Pap 50 04/17/19 10:52 98 Bi-Pap 100 04/17/19 10:50 50 04/17/19 08:43 97 25 98 Facial 100 04/17/19 08:00 97.9 67 18 120/69 (86) 96 04/17/19 08:00 112 04/17/19 08:00 Bi-pap 04/17/19 08:00 30 04/17/19 05:48 103 105/53 04/17/19 05:22 98 24 95 2.0 04/17/19 04:50 97 25 98 Facial 30 04/17/19 04:00 Nasal Cannula 2.0 04/17/19 04:00 30 04/17/19 04:00 98.5 103 20 105/53 (70) 98 04/17/19 03:40 95 04/17/19 03:10 99 23 94 Facial 30 04/17/19 02:04 98.2 04/17/19 01:25 104 32 93 Facial 30 04/17/19 00:32 106 115/69 04/17/19 00:00 Nasal Cannula 2.0 04/17/19 00:00 100.3 108 20 139/75 (96) 99 04/17/19 00:00 30 04/16/19 23:40 106 04/16/19 20:45 98 Nasal Cannula 2.0 28 04/16/19 20:00 2.0 04/16/19 20:00 98.8 103 20 114/64 (81) 96 04/16/19 20:00 Nasal Cannula 2.0 04/16/19 19:28 112 04/16/19 17:41 106 140/69 04/16/19 16:00 Nasal Cannula 2.0 04/16/19 16:00 99 04/16/19 16:00 2.0 04/16/19 16:00 98.6 103 25 123/68 (86) 97 Intake and Output 04/17/19 04/18/19 19:00 07:00 Intake Total 505 ml 783.333 ml Output Total 505 ml 315 ml Balance 0 ml 468.333 ml Intake Oral 0 ml IV Total 505 ml 783.333 ml Output Urine Total 505 ml 315 ml # Bowel Movements 1 4 Labs Test 04/15/19 18:00 04/16/19 03:40 04/17/19 09:20 04/18/19 05:15 Urine Collection Time 24 HRS Urine Total Volume 700 ML Urine Total Protein mg/dL 354 mg/dL Urine Total Protein 24 Hour 2478.0 mg/24hr (< 150) White Blood Count 16.3 K/UL (4.8-10.8) 15.2 K/UL (4.8-10.8) 14.3 K/UL (4.8-10.8) Red Blood Count 3.41 M/UL (4.20-5.40) 3.44 M/UL (4.20-5.40) 3.59 M/UL (4.20-5.40) Hemoglobin 9.5 G/DL (12.0-16.0) 9.4 G/DL (12.0-16.0) 9.8 G/DL (12.0-16.0) Hematocrit 29.2 % (37.0-47.0) 29.8 % (37.0-47.0) 31.1 % (37.0-47.0) Mean Corpuscular Volume 86 FL (80-99) 87 FL (80-99) 87 FL (80-99) Mean Corpuscular Hemoglobin 27.8 PG (27.0-31.0) 27.2 PG (27.0-31.0) 27.4 PG (27.0-31.0) Mean Corpuscular Hemoglobin Concent 32.5 G/DL (32.0-36.0) 31.4 G/DL (32.0-36.0) 31.5 G/DL (32.0-36.0) Red Cell Distribution Width 14.1 % (11.6-14.8) 14.1 % (11.6-14.8) 14.4 % (11.6-14.8) Platelet Count 199 K/UL (150-450) 215 K/UL (150-450) 202 K/UL (150-450) Mean Platelet Volume 9.1 FL (6.5-10.1) 9.1 FL (6.5-10.1) 7.8 FL (6.5-10.1) Neutrophils (%) (Auto) % (45.0-75.0) 81.2 % (45.0-75.0) 83.5 % (45.0-75.0) Lymphocytes (%) (Auto) % (20.0-45.0) 12.5 % (20.0-45.0) 10.3 % (20.0-45.0) Monocytes (%) (Auto) % (1.0-10.0) 5.7 % (1.0-10.0) 5.6 % (1.0-10.0) Eosinophils (%) (Auto) % (0.0-3.0) 0.3 % (0.0-3.0) 0.3 % (0.0-3.0) Basophils (%) (Auto) % (0.0-2.0) 0.4 % (0.0-2.0) 0.3 % (0.0-2.0) Differential Total Cells Counted 100 Neutrophils % (Manual) 83 % (45-75) Lymphocytes % (Manual) 12 % (20-45) Monocytes % (Manual) 5 % (1-10) Eosinophils % (Manual) 0 % (0-3) Basophils % (Manual) 0 % (0-2) Band Neutrophils 0 % (0-8) Platelet Estimate Adequate Platelet Morphology Normal Hypochromasia 1+ Anisocytosis 1+ Erythrocyte Sedimentation Rate 120 MM/HR (0-30) Sodium Level 142 MMOL/L (136-145) 140 MMOL/L (136-145) 141 MMOL/L (136-145) Potassium Level 3.8 MMOL/L (3.5-5.1) 3.6 MMOL/L (3.5-5.1) 3.6 MMOL/L (3.5-5.1) Chloride Level 110 MMOL/L (98-107) 106 MMOL/L (98-107) 107 MMOL/L (98-107) Carbon Dioxide Level 20 MMOL/L (21-32) 21 MMOL/L (21-32) 18 MMOL/L (21-32) Anion Gap 12 mmol/L (5-15) 13 mmol/L (5-15) 16 mmol/L (5-15) Blood Urea Nitrogen 43 mg/dL (7-18) 36 mg/dL (7-18) 33 mg/dL (7-18) Creatinine 1.5 MG/DL (0.55-1.30) 1.6 MG/DL (0.55-1.30) 1.5 MG/DL (0.55-1.30) Estimat Glomerular Filtration Rate mL/min (>60) mL/min (>60) mL/min (>60) Glucose Level 204 MG/DL (74-106) 231 MG/DL (74-106) 163 MG/DL (74-106) Uric Acid 7.6 MG/DL (2.6-7.2) Calcium Level 8.9 MG/DL (8.5-10.1) 9.0 MG/DL (8.5-10.1) 9.2 MG/DL (8.5-10.1) Phosphorus Level 3.2 MG/DL (2.5-4.9) 3.2 MG/DL (2.5-4.9) Magnesium Level 1.8 MG/DL (1.8-2.4) 1.8 MG/DL (1.8-2.4) Total Bilirubin 0.3 MG/DL (0.2-1.0) 0.3 MG/DL (0.2-1.0) 0.4 MG/DL (0.2-1.0) Aspartate Amino Transf (AST/SGOT) 13 U/L (15-37) 18 U/L (15-37) 19 U/L (15-37) Alanine Aminotransferase (ALT/SGPT) 6 U/L (12-78) 8 U/L (12-78) 10 U/L (12-78) Alkaline Phosphatase 86 U/L (46-116) 96 U/L (46-116) 91 U/L (46-116) Ammonia 22 umol/L (11-32) Troponin I 0.185 ng/mL (0.000-0.056) C-Reactive Protein, Quantitative 39.6 mg/dL (0.00-0.90) Pro-B-Type Natriuretic Peptide 4917 pg/mL (0-125) 6607 pg/mL (0-125) Total Protein 6.6 G/DL (6.4-8.2) 6.9 G/DL (6.4-8.2) 7.3 G/DL (6.4-8.2) Albumin 1.1 G/DL (3.4-5.0) 1.2 G/DL (3.4-5.0) 1.3 G/DL (3.4-5.0) Globulin 5.5 g/dL 5.7 g/dL 6.0 g/dL Albumin/Globulin Ratio 0.2 (1.0-2.7) 0.2 (1.0-2.7) 0.2 (1.0-2.7) Random Vancomycin Level 13.5 ug/mL Prothrombin Time 13.6 SEC (9.30-11.50) Prothromb Time International Ratio 1.3 (0.9-1.1) Activated Partial Thromboplast Time 34 SEC (23-33) Test 04/18/19 09:32 04/18/19 11:30 Arterial Blood pH 7.333 (7.350-7.450) Arterial Blood Partial Pressure CO2 35.7 mmHg (35.0-45.0) Arterial Blood Partial Pressure O2 101.2 mmHg (75.0-100.0) Arterial Blood HCO3 18.5 mmol/L (22.0-26.0) Arterial Blood Oxygen Saturation 97.3 % (95-100) Arterial Blood Base Excess -6.7 (-2-2) Marlo Test Positive Height (Feet): 5 Height (Inches): 3.00 Weight (Pounds): 176 Objective PHYSICAL EXAMINATION: GENERAL: BiPAP in place, sleeping in bed, slight short of breath. VITAL SIGNS: Have been reviewed CARDIOVASCULAR: No murmur. LUNGS: Poor exchange. ABDOMEN: Bowel sounds distant. EXTREMITIES: No cyanosis, clubbing, or edema. NEUROLOGIC: Patient is flaccid in bed, probably sedated. Steven Norton MD Apr 18, 2019 14:51
--- NOTE | 2019-04-18 16:00 | NUR ---
NURSE NOTES: Tolerated well with BIPAP. No acute distress noted. Turn and repositioning the patient. Will continue to monitor.
[2019-04-18] MEDS ORDERED: NS 275ml ONE (16:03)
--- NOTE | 2019-04-18 16:43 | General Progress Note ---
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 ICD Codes: E11.22 - Type 2 diabetes mellitus with diabetic chronic kidney disease; N18.4 - Chronic kidney disease, stage 4 (severe) SNOMED: 90399359, 920786039, 323828081 (7) Respiratory failure ICD Codes: J96.90 - Respiratory failure, unspecified, unspecified whether with hypoxia or hypercapnia SNOMED: 793211591 Status: unchanged Assessment/Plan: pt diet abx o2 pulm tx neuro psyc eval cbc bmp am Subjective Constitutional: Reports: weakness Respiratory: Reports: shortness of breath Allergies: Coded Allergies: No Known Allergies (Unverified , 04/12/19) All Systems: reviewed and negative except above Subjective on bipap in icu Objective Last 24 Hour Vital Signs Date Time Temp Pulse Resp B/P (MAP) Pulse Ox O2 Delivery O2 Flow Rate FiO2 04/18/19 16:00 Bi-pap 04/18/19 16:00 35 04/18/19 16:00 98.9 98 25 141/84 (103) 99 04/18/19 15:29 107 04/18/19 15:00 108 25 144/79 (100) 100 04/18/19 14:37 95 24 98 Full Face 35 04/18/19 14:00 99 26 127/84 (98) 96 04/18/19 13:45 104 24 98 Full Face 35 04/18/19 13:00 101 31 129/70 (89) 98 04/18/19 12:00 35 04/18/19 12:00 90 04/18/19 12:00 Bi-pap 04/18/19 12:00 98.4 97 25 112/63 (79) 100 6/23/19 11:14 110 117/70 04/18/19 11:00 109 22 117/70 (86) 96 04/18/19 10:51 102 22 99 Full Face 35 04/18/19 10:00 103 26 111/65 (80) 97 04/18/19 09:23 98.6 04/18/19 09:04 109 24 98 Facial 35 04/18/19 09:00 102 24 128/72 (90) 99 04/18/19 08:00 100.3 109 25 135/94 (108) 99 04/18/19 08:00 Bi-pap 04/18/19 08:00 106 04/18/19 08:00 35 04/18/19 07:09 97 Bi-Pap 35 04/18/19 07:09 103 26 97 Facial 35 04/18/19 07:07 106 26 138/94 (109) 96 04/18/19 06:00 99.9 107 24 138/67 (90) 99 04/18/19 05:50 116 138/60 04/18/19 05:00 106 22 138/60 (86) 99 04/18/19 04:48 112 22 98 Facial 35 04/18/19 04:00 100.5 108 22 124/105 (111) 97 04/18/19 04:00 35 04/18/19 04:00 108 04/18/19 04:00 Bi-pap 04/18/19 03:46 100 22 98 Facial 35 04/18/19 03:00 105 22 112/67 (82) 96 04/18/19 02:00 103 24 116/65 (82) 97 04/18/19 01:16 100 21 98 Facial 35 04/18/19 01:00 100 23 118/65 (82) 97 04/18/19 00:06 99 04/18/19 00:04 Bi-pap 04/18/19 00:00 99.6 99 22 119/65 (83) 97 04/18/19 00:00 35 04/17/19 23:53 112 126/66 04/17/19 23:00 108 22 126/66 (86) 98 04/17/19 22:46 98 16 99 Facial 35 04/17/19 22:00 102 24 111/66 (81) 99 04/17/19 21:00 94 24 108/56 (73) 97 04/17/19 20:59 106 24 98 Facial 35 04/17/19 20:24 95 Bi-Pap 35 04/17/19 20:23 96 21 98 Facial 35 04/17/19 20:00 35 04/17/19 20:00 102 04/17/19 20:00 99.3 102 24 113/59 (77) 96 04/17/19 20:00 Bi-pap 04/17/19 19:00 100 24 125/72 (89) 98 04/17/19 18:00 98 23 111/68 (82) 98 04/17/19 17:47 100 23 100 Bi-Pap 35 04/17/19 17:41 107 129/58 04/17/19 17:40 35 04/17/19 17:35 106 26 97 Bi-Pap 35 04/17/19 17:00 98.2 104 24 120/58 (78) 97 04/17/19 16:53 95 21 98 Facial 35 Intake and Output 04/17/19 04/18/19 19:00 07:00 Intake Total 505 ml 783.333 ml Output Total 505 ml 315 ml Balance 0 ml 468.333 ml Intake Oral 0 ml IV Total 505 ml 783.333 ml Output Urine Total 505 ml 315 ml # Bowel Movements 1 4 Laboratory Tests 04/18/19 05:15: White Blood Count 14.3H, Red Blood Count 3.59L, Hemoglobin 9.8L, Hematocrit 31.1L, Mean Corpuscular Volume 87, Mean Corpuscular Hemoglobin 27.4, Mean Corpuscular Hemoglobin Concent 31.5L, Red Cell Distribution Width 14.4, Platelet Count 202, Mean Platelet Volume 7.8, Neutrophils (%) (Auto) 83.5H, Lymphocytes (%) (Auto) 10.3L, Monocytes (%) (Auto) 5.6, Eosinophils (%) (Auto) 0.3, Basophils (%) (Auto) 0.3, Prothrombin Time 13.6H, Prothromb Time International Ratio 1.3H, Activated Partial Thromboplast Time 34H, Sodium Level 141, Potassium Level 3.6, Chloride Level 107, Carbon Dioxide Level 18L, Anion Gap 16H, Blood Urea Nitrogen 33H, Creatinine 1.5H, Estimat Glomerular Filtration Rate , Glucose Level 163H, Calcium Level 9.2, Phosphorus Level 3.2, Magnesium Level 1.8, Total Bilirubin 0.4, Aspartate Amino Transf (AST/SGOT) 19, Alanine Aminotransferase (ALT/SGPT) 10L, Alkaline Phosphatase 91, Total Protein 7.3, Albumin 1.3L, Globulin 6.0, Albumin/Globulin Ratio 0.2L 04/18/19 09:32: Urine Legionella Antigen [Pending] 04/18/19 11:30: Arterial Blood pH 7.333L, Arterial Blood Partial Pressure CO2 35.7, Arterial Blood Partial Pressure O2 101.2H, Arterial Blood HCO3 18.5L, Arterial Blood Oxygen Saturation 97.3, Arterial Blood Base Excess -6.7L, Marlo Test Positive Height (Feet): 5 Height (Inches): 3.00 Weight (Pounds): 176 General Appearance: lethargic EENT: normal ENT inspection Neck: normal alignment Cardiovascular: normal peripheral pulses, normal rate, regular rhythm Respiratory/Chest: chest wall non-tender, lungs clear, normal breath sounds Abdomen: normal bowel sounds, non tender, soft Extremities: normal inspection Edema: no edema noted Arm (L), no edema noted Arm (R), no edema noted Leg (L), no edema noted Leg (R), no edema noted Pedal (L), no edema noted Pedal (R), no edema noted Generalized Neurologic: motor weakness Skin: normal pigmentation, warm/dry Jama Keating DO Apr 18, 2019 16:43
--- NOTE | 2019-04-18 18:00 | NUR ---
NURSE NOTES: Turn and repositioning the patient. No acute distress noted with BIPAP. Stable condition.
--- NOTE | 2019-04-18 18:39 | NUR ---
CASE MANAGEMENT: REVIEW 04/18/2019 SI:SEPSIS. T 98.9 HR 98 RR 25 B/P 141/84 SATS 99% ON BIPAP FiO2 35% WBC 14.3 BUN 33 CR 1.5 GLU 163 ALT 10 ABGs PH 7.333 PO2 101.2 HCO3 18.5 BE -6.7 IS: IVF @ 100 ml/HR HYDRALAZINE PO Q6H LOPRESSOR PO Q12H NAMENDA PO BID PLAVIX PO QD INSULIN ASPART SUBQ AC/HS VENOFER IV X1 CEFEPIME IV Q24H TELE STATUS DCP: PATIENT TO BE DISCHARGED TO SNF ONCE MEDICALLY CLEARED.
--- NOTE | 2019-04-18 19:16 | NUR ---
HAND-OFF: Report given to HORTENCIA Echavarria. Stable condition.
--- NOTE | 2019-04-18 19:50 | NUR ---
NURSE NOTES: PATIENT OPEN EYES, APHAGIC AT THIS TIME, ON FULL FACE MASK BIPAP, I/E 15/5, FIO2 35%, O2 SATURATION OVER 98% NOTED, NPO STATUS, NO N/V NOTED, ABDOMEN SOFT, NON TENDER, F/C INTACT AND PATENT, YELLOW URINE OUTED, PERIPHERAL LINE TO LEFT FOREARM, INTACT AND PATENT STATUS, ON P200 BED, SCD'S TO BOTH LOWER LEGS, MADE LOWER BED POSITION AND PROVIDED CALL LIGHT WITHIN REACH, WILL CONTINUE TO MONITOR.
--- NOTE | 2019-04-18 21:50 | NUR ---
NURSE NOTES: REPOSITIONED AND ORAL CARE WAS DONE.
--- NOTE | 2019-04-18 23:29 | Neurology Progress Note ---
Interim History Interim History ROS Limited/Unobtainable: No Complaints: AMS Events: Still in ICU on BIPAP with leukocytosis and fever. Interim History This visit was performed on April 18, [address] Geo Espitia. Review of Systems Neuro Review of Systems Lethargic on exam, not following commands. All Systems: reviewed and negative except above Objective Physical Exam Last Vital Signs Date Time Temp Pulse Resp B/P (MAP) Pulse Ox O2 Delivery O2 Flow Rate FiO2 04/18/19 23:19 99 23 99 Full Face 35 04/18/19 23:00 125/53 (77) 04/18/19 20:00 100.0 04/17/19 05:22 2.0 Laboratory Tests Test 04/18/19 05:15 04/18/19 09:32 04/18/19 11:30 White Blood Count 14.3 K/UL (4.8-10.8) H Red Blood Count 3.59 M/UL (4.20-5.40) L Hemoglobin 9.8 G/DL (12.0-16.0) L Hematocrit 31.1 % (37.0-47.0) L Mean Corpuscular Volume 87 FL (80-99) Mean Corpuscular Hemoglobin 27.4 PG (27.0-31.0) Mean Corpuscular Hemoglobin Concent 31.5 G/DL (32.0-36.0) L Red Cell Distribution Width 14.4 % (11.6-14.8) Platelet Count 202 K/UL (150-450) Mean Platelet Volume 7.8 FL (6.5-10.1) Neutrophils (%) (Auto) 83.5 % (45.0-75.0) H Lymphocytes (%) (Auto) 10.3 % (20.0-45.0) L Monocytes (%) (Auto) 5.6 % (1.0-10.0) Eosinophils (%) (Auto) 0.3 % (0.0-3.0) Basophils (%) (Auto) 0.3 % (0.0-2.0) Prothrombin Time 13.6 SEC (9.30-11.50) H Prothromb Time International Ratio 1.3 (0.9-1.1) H Activated Partial Thromboplast Time 34 SEC (23-33) H Sodium Level 141 MMOL/L (136-145) Potassium Level 3.6 MMOL/L (3.5-5.1) Chloride Level 107 MMOL/L (98-107) Carbon Dioxide Level 18 MMOL/L (21-32) L Anion Gap 16 mmol/L (5-15) H Blood Urea Nitrogen 33 mg/dL (7-18) H Creatinine 1.5 MG/DL (0.55-1.30) H Estimat Glomerular Filtration Rate mL/min (>60) Glucose Level 163 MG/DL (74-106) H Calcium Level 9.2 MG/DL (8.5-10.1) Phosphorus Level 3.2 MG/DL (2.5-4.9) Magnesium Level 1.8 MG/DL (1.8-2.4) Total Bilirubin 0.4 MG/DL (0.2-1.0) Aspartate Amino Transf (AST/SGOT) 19 U/L (15-37) Alanine Aminotransferase (ALT/SGPT) 10 U/L (12-78) L Alkaline Phosphatase 91 U/L (46-116) Total Protein 7.3 G/DL (6.4-8.2) Albumin 1.3 G/DL (3.4-5.0) L Globulin 6.0 g/dL Albumin/Globulin Ratio 0.2 (1.0-2.7) L Urine Legionella Antigen Pending Arterial Blood pH 7.333 (7.350-7.450) Arterial Blood Partial Pressure CO2 35.7 mmHg (35.0-45.0) Arterial Blood Partial Pressure O2 101.2 mmHg (75.0-100.0) H Arterial Blood HCO3 18.5 mmol/L (22.0-26.0) L Arterial Blood Oxygen Saturation 97.3 % (95-100) Arterial Blood Base Excess -6.7 (-2-2) L Marlo Test Positive General: well developed, well nourished Head: normocophalic Neck: no rigidity EENT: benign Neurologic Exam Mental Status: other Speech: other Language: other Cranial Nerve II: other Cranial Nerves III, IV, : other Cranial Nerve V: other Cranial Nerve VII: other Cranial Nerve IX: other Cranial Nerve XI: other Cranial Nerve XII: other Motor System: other Sensory: other Coordination: other Gait: other Objective Right Hemiplegia at baseline- not following commands, eyes opening to noxious stimuli. Impression/Recommendations Problems: (1) Respiratory distress (2) Malnutrition (3) UTI (urinary tract infection) (4) Diabetic nephropathy (5) Renal failure (ARF), acute on chronic (6) Anemia in chronic kidney disease (CKD) (7) Pulmonary hypertension (8) Hypernatremia (9) Sepsis (10) Pneumonia (11) History of CVA (cerebrovascular accident) (12) CAD (coronary artery disease) (13) Right hemiplegia (14) Diabetes mellitus (15) Hypertensive heart disease (16) 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 (17) Nosocomial pneumonia (18) At high risk for aspiration (19) Acute metabolic encephalopathy Status: unchanged Recommendations Continue Q2 hour neuro obs SBP<140 Maintain Na 135-145 Consider Enteral Feeding Maintain normothermia with Tylenol Maintain normoglycemia with ISS Folic Acid 1mg QD PO/NG Abx as per ID 2D Echo No indication for neuroimaging at this time. Critical care time of 40 minutes, was performed in order to assess and manage the high probability of imminent or life threatening deterioration to respiratory/neurologic function, with frequent reassessment and excludes all billable procedures. Phyllis Diop N.P. Apr 18, 2019 23:29
[2019-04-19] VITALS (24 sets, daily range): BP systolic 91–143; BP diastolic 42–98
--- NOTE | 2019-04-19 00:03 | NUR ---
NURSE NOTES: ASLEEP STATUS, NO PAIN OR DISTRESS NOTED AT THIS TIME.
--- NOTE | 2019-04-19 02:10 | NUR ---
NURSE NOTES: NO ACUTE DISTRESS NOTED AT THIS TIME.
--- NOTE | 2019-04-19 04:00 | NUR ---
NURSE NOTES: MORNING CARE WAS DONE, NO PAIN OR SOB NOTED WHILE CARE.
[2019-04-19 04:20] LABS: HEMATOCRIT 26.2 % (37.0-47.0); HEMOGLOBIN 8.6 G/DL (12.0-16.0); MEAN CORPUSCULAR VOLUME 86 FL (80-99); PLATELET COUNT 205 K/UL (150-450); RED BLOOD COUNT 3.05 M/UL (4.20-5.40); RED CELL DISTRIBUTION WIDTH 14.6 % (11.6-14.8); WHITE BLOOD COUNT 12.6 K/UL (4.8-10.8)
[2019-04-19 04:42] LABS: ALANINE AMINOTRANSFERASE 7 U/L (12-78); ALBUMIN 1.1 G/DL (3.4-5.0); ALBUMIN/GLOBULIN RATIO 0.2 (1.0-2.7); ALKALINE PHOSPHATASE 80 U/L (46-116); ANION GAP 14 mmol/L (5-15); ASPARTATE AMINO TRANSFERASE 25 U/L (15-37); BILIRUBIN,TOTAL 0.3 MG/DL (0.2-1.0); BLOOD UREA NITROGEN 34 mg/dL (7-18); CALCIUM 8.6 MG/DL (8.5-10.1); CARBON DIOXIDE 19 MMOL/L (21-32); CHLORIDE 107 MMOL/L (98-107); CREATININE 1.5 MG/DL (0.55-1.30); PHOSPHORUS 3.2 MG/DL (2.5-4.9); POTASSIUM 3.5 MMOL/L (3.5-5.1); SODIUM 139 MMOL/L (136-145)
[2019-04-19] MEDS: Metoprolol 5mg/5ml Inj IVP SCH ×2 (05:53→12:04)
--- NOTE | 2019-04-19 06:00 | NUR ---
NURSE NOTES: NO ACUTE DISTRESS NOTED AT THIS SHIFT.
[2019-04-19] MEDS: NovoLOG Insulin Flexpen SUBQ SCH ×4 (06:12→20:35)
--- NOTE | 2019-04-19 07:11 | NUR ---
HAND-OFF: Report given to HORTENICA HUDSON.
--- NOTE | 2019-04-19 07:25 | NUR ---
NURSE NOTES: Received report from Luisa Robles RN. Patient asleep in bed, opens eyes to touch. SR 97 on surveillance system monitor. Receiving O2 via bi-pap with settings of 15/5, FiO2 35%, saturating at 99%. Patient NPO at this time. Fraga catheter patent and draining well. Left forearm 20g saline lock intact and asymptomatic. Bed locked in lowest position with side rails up x 3. All needs attended to. Will continue to monitor.
--- NOTE | 2019-04-19 07:48 | NUR ---
SHAMPOOERCLINICAL NUTRITIONIST SI:LEUKOCYTOSIS . RESPIRATORY FAILURE VS: BP 143/66, P 108, T 108, RR 28, SpO2 100 on Bi-pap FiO2 35 WBC 12.6, RBC 3.05, H&H 8.6/26.2, BUN 34, Cr 1.5 IS:LOPRESSOR 5mg IVP MEROPENEM 55ml IVPB VANCOMYCIN 275ml IVPB ICU STATUS
--- NOTE | 2019-04-19 08:04 | NUR ---
NURSE NOTES: ABG results reported to Dr. Springer, awaiting call back. No respiratory distress noted at this time. Will continue to monitor.
--- NOTE | 2019-04-19 08:45 | NUR ---
RESPIRATORY NOTE: Patient received on BiPAP with current ordered settings. BiPAP alarms are functional/audible and it is connected to a red outlet. Released full face mask to asses/clean facial skin and perform oral care. There is skin peeling with redness on the left upper cheek. Notified RN of skin. Biatain was placed on Left upper cheek. Protecta Gel and foam tape was added to bridge of nose for skin protection. Patient rotated to facial mask. Will continue to monitor.
--- NOTE | 2019-04-19 10:12 | Pulmonolgy Critical Care Note ---
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 (7) Hypertensive heart disease (8) Right hemiplegia (9) History of CVA (cerebrovascular accident) (10) CAD (coronary artery disease) Respiratory: monitor respiratory rate, adjust FIO2, CXR, other - cxr worsening Cardiac: stop pressors, continue to monitor HR/BP Infectious Disease: check cultures Gastrointestinal: continue feedings/current rate Endocrine: check HgA1C, continue sliding scale insulin Hematologic: transfuse if hgb<8.5 Neurologic: PRN Ativan, keep patient comfortable Affect: PRN ativan Prophylaxis: Heparin Notes 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: 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, cardio, renal, ID Critical Care - Objective Last 24 Hour Vital Signs Date Time Temp Pulse Resp B/P (MAP) Pulse Ox O2 Delivery O2 Flow Rate FiO2 04/19/19 09:00 120 31 116/66 (83) 95 04/19/19 08:42 131 29 97 Full Face 35 04/19/19 08:00 Bi-pap 04/19/19 08:00 35 04/19/19 08:00 107 04/19/19 08:00 99.2 112 24 134/80 (98) 99 04/19/19 07:20 Bi-Pap 04/19/19 07:17 97 26 100 Full Face 35 04/19/19 07:00 92 24 137/82 (100) 100 04/19/19 06:00 103 23 138/83 (101) 100 04/19/19 05:53 108 143/66 04/19/19 05:04 99 28 99 Full Face 35 04/19/19 05:00 109 26 140/74 (96) 98 04/19/19 04:01 108 04/19/19 04:00 35 04/19/19 04:00 99.2 111 26 143/72 (95) 96 04/19/19 04:00 Bi-pap 04/19/19 03:05 107 24 98 Full Face 35 04/19/19 03:00 110 29 130/62 (84) 97 04/19/19 02:00 103 29 117/56 (76) 99 04/19/19 01:27 116 27 97 Full Face 35 04/19/19 01:00 106 27 122/53 (76) 98 04/19/19 00:00 Bi-pap 04/19/19 00:00 99.4 105 33 128/58 (81) 98 04/19/19 00:00 105 04/19/19 00:00 35 04/18/19 23:38 103 125/53 04/18/19 23:19 99 23 99 Full Face 35 04/18/19 23:00 94 26 125/53 (77) 100 04/18/19 22:00 102 25 137/53 (81) 99 04/18/19 21:16 100 20 99 Full Face 35 04/18/19 21:00 100 26 115/51 (72) 99 04/18/19 20:00 35 04/18/19 20:00 Bi-pap 04/18/19 20:00 98 04/18/19 20:00 100.0 98 26 138/72 (94) 99 04/18/19 19:00 99 25 144/75 (98) 99 04/18/19 18:59 110 28 98 Full Face 35 04/18/19 18:59 98 Bi-Pap 35 04/18/19 18:00 97 25 137/72 (93) 98 04/18/19 17:19 105 25 100 Full Face 35 04/18/19 17:09 101 140/85 04/18/19 17:00 101 23 140/85 (103) 100 04/18/19 16:00 Bi-pap 04/18/19 16:00 35 04/18/19 16:00 98.9 98 25 141/84 (103) 99 04/18/19 15:29 107 04/18/19 15:00 108 25 144/79 (100) 100 04/18/19 14:37 95 24 98 Full Face 35 04/18/19 14:00 99 26 127/84 (98) 96 04/18/19 13:45 104 24 98 Full Face 35 04/18/19 13:00 101 31 129/70 (89) 98 04/18/19 12:00 35 04/18/19 12:00 90 04/18/19 12:00 Bi-pap 04/18/19 12:00 98.4 97 25 112/63 (79) 100 04/18/19 11:14 110 117/70 04/18/19 11:00 109 22 117/70 (86) 96 04/18/19 10:51 102 22 99 Full Face 35 Status: awake Condition: critical HEENT: atraumatic Neck: full ROM Lungs: rales, rhonchi Heart: HR/BP stable Abdomen: soft, non-tender Extremities: no C/C/E Decubiti: location Accucheck: 114 Critical Care - Subjective ROS Limited/Unobtainable: No Condition: critical EKG Rhythm: Sinus Rhythm FI02: 35 Vent Support Mode: BiLevel Sputum Amount: Large I&O: Intake and Output 04/18/19 04/19/19 19:00 07:00 Intake Total 506.667 ml 55 ml Output Total 515 ml 395 ml Balance -8.333 ml -340 ml Intake Oral 0 ml IV Total 506.667 ml 55 ml Output Urine Total 515 ml 395 ml # Bowel Movements 2 4 CXR: increasing RLL infiltrate Labs: Laboratory Tests Test 04/18/19 11:30 04/19/19 03:45 04/19/19 07:40 Arterial Blood pH 7.333 (7.350-7.450) 7.340 (7.350-7.450) Arterial Blood Partial Pressure CO2 35.7 mmHg (35.0-45.0) 32.4 mmHg (35.0-45.0) L Arterial Blood Partial Pressure O2 101.2 mmHg (75.0-100.0) H 97.4 mmHg (75.0-100.0) Arterial Blood HCO3 18.5 mmol/L (22.0-26.0) L 17.1 mmol/L (22.0-26.0) *L Arterial Blood Oxygen Saturation 97.3 % (95-100) 97.0 % (95-100) Arterial Blood Base Excess -6.7 (-2-2) L -7.8 (-2-2) L Marlo Test Positive Positive White Blood Count 12.6 K/UL (4.8-10.8) H Red Blood Count 3.05 M/UL (4.20-5.40) L Hemoglobin 8.6 G/DL (12.0-16.0) L Hematocrit 26.2 % (37.0-47.0) L Mean Corpuscular Volume 86 FL (80-99) Mean Corpuscular Hemoglobin 28.1 PG (27.0-31.0) Mean Corpuscular Hemoglobin Concent 32.7 G/DL (32.0-36.0) Red Cell Distribution Width 14.6 % (11.6-14.8) Platelet Count 205 K/UL (150-450) Mean Platelet Volume 8.4 FL (6.5-10.1) Neutrophils (%) (Auto) % (45.0-75.0) Lymphocytes (%) (Auto) % (20.0-45.0) Monocytes (%) (Auto) % (1.0-10.0) Eosinophils (%) (Auto) % (0.0-3.0) Basophils (%) (Auto) % (0.0-2.0) Sodium Level 139 MMOL/L (136-145) Potassium Level 3.5 MMOL/L (3.5-5.1) Chloride Level 107 MMOL/L (98-107) Carbon Dioxide Level 19 MMOL/L (21-32) L Anion Gap 14 mmol/L (5-15) Blood Urea Nitrogen 34 mg/dL (7-18) H Creatinine 1.5 MG/DL (0.55-1.30) H Estimat Glomerular Filtration Rate mL/min (>60) Glucose Level 118 MG/DL (74-106) H Calcium Level 8.6 MG/DL (8.5-10.1) Phosphorus Level 3.2 MG/DL (2.5-4.9) Magnesium Level 1.6 MG/DL (1.8-2.4) L Total Bilirubin 0.3 MG/DL (0.2-1.0) Aspartate Amino Transf (AST/SGOT) 25 U/L (15-37) Alanine Aminotransferase (ALT/SGPT) 7 U/L (12-78) L Alkaline Phosphatase 80 U/L (46-116) Total Protein 6.3 G/DL (6.4-8.2) L Albumin 1.1 G/DL (3.4-5.0) L Globulin 5.2 g/dL Albumin/Globulin Ratio 0.2 (1.0-2.7) L Tony Springer MD Apr 19, 2019 10:12
--- NOTE | 2019-04-19 10:13 | NUR ---
NURSE NOTES: Dr. Springer informed at bedside of patient's NPO status d/t bipap and possible intubation, patient is currently not receiving IV fluids. Last accu-chek result is 114. Orders to be placed by Dr. Springer.
[2019-04-19] MEDS: D5W w/KCl 20mEq 1,000 ML IV SCH (11:00)
[2019-04-19] MEDS: Meropenem 1 GM in NS 55 ML IVPB SCH ×2 (11:00→22:34)
--- NOTE | 2019-04-19 11:04 | NUR ---
NURSE NOTES: Blood glucose level 129. Novolog held at this time due to NPO status. IV fluids just initiated now. Will continue to monitor.
--- NOTE | 2019-04-19 11:09 | Infectious Diseases Prog Note ---
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 PNA -04/16 CXR: . Right perihilar and bilateral lower lobe pulmonary consolidation concerning for pneumonia.Small bilateral pleural effusions. CXR - B/L Infiltrates Low grade fevers WBCs up to 25; improving Sp Cx - C. alb -BCx NTD Widened mediastinum - right sided aortic arch CXR - Apparent upper mediastinal widening. Possibly due to ectatic vasculature and body habitus, but upper mediastinal mass also possible. Correlate with any prior adiographs and may be available, consider CT for further evaluation if clinically indicated CT 04/13/19 - Right-sided aortic arch, presumably accounting for the apparent upper mediastinal widening demonstrated on recent plain radiograph. No evidence of upper mediastinal mass. Extensive bilateral lower lobe consolidation , likely pneumonia, less extensive left upper lobe consolidation. 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 CKD CAD PLAN - Start Meropenem #2 - Continue Vancomycin #7/7-10 pending Cx - 04/18/19 S/P Cefepime #6 - f/u cultures - f/u Urine legionella - Monitor CBC and Temps Thank you for this consult. We will continue to follow the patient during this hospitalization. Subjective Allergies: Coded Allergies: No Known Allergies (Unverified , 04/12/19) Subjective Tm 100.5 Bcx NTD wbc improving Objective Vital Signs Last 24 Hour Vital Signs Date Time Temp Pulse Resp B/P (MAP) Pulse Ox O2 Delivery O2 Flow Rate FiO2 04/19/19 10:00 123 27 118/98 (105) 98 04/19/19 09:00 120 31 116/66 (83) 95 04/19/19 08:42 131 29 97 Full Face 35 04/19/19 08:00 Bi-pap 04/19/19 08:00 35 04/19/19 08:00 107 04/19/19 08:00 99.2 112 24 134/80 (98) 99 04/19/19 07:20 Bi-Pap 04/19/19 07:17 97 26 100 Full Face 35 04/19/19 07:00 92 24 137/82 (100) 100 04/19/19 06:00 103 23 138/83 (101) 100 04/19/19 05:53 108 143/66 04/19/19 05:04 99 28 99 Full Face 35 04/19/19 05:00 109 26 140/74 (96) 98 04/19/19 04:01 108 04/19/19 04:00 35 04/19/19 04:00 99.2 111 26 143/72 (95) 96 04/19/19 04:00 Bi-pap 04/19/19 03:05 107 24 98 Full Face 35 04/19/19 03:00 110 29 130/62 (84) 97 04/19/19 02:00 103 29 117/56 (76) 99 04/19/19 01:27 116 27 97 Full Face 35 04/19/19 01:00 106 27 122/53 (76) 98 04/19/19 00:00 Bi-pap 04/19/19 00:00 99.4 105 33 128/58 (81) 98 04/19/19 00:00 105 04/19/19 00:00 35 04/18/19 23:38 103 125/53 04/18/19 23:19 99 23 99 Full Face 35 04/18/19 23:00 94 26 125/53 (77) 100 04/18/19 22:00 102 25 137/53 (81) 99 04/18/19 21:16 100 20 99 Full Face 35 04/18/19 21:00 100 26 115/51 (72) 99 04/18/19 20:00 35 04/18/19 20:00 Bi-pap 04/18/19 20:00 98 04/18/19 20:00 100.0 98 26 138/72 (94) 99 04/18/19 19:00 99 25 144/75 (98) 99 04/18/19 18:59 110 28 98 Full Face 35 04/18/19 18:59 98 Bi-Pap 35 04/18/19 18:00 97 25 137/72 (93) 98 04/18/19 17:19 105 25 100 Full Face 35 04/18/19 17:09 101 140/85 04/18/19 17:00 101 23 140/85 (103) 100 04/18/19 16:00 Bi-pap 04/18/19 16:00 35 04/18/19 16:00 98.9 98 25 141/84 (103) 99 04/18/19 15:29 107 04/18/19 15:00 108 25 144/79 (100) 100 04/18/19 14:37 95 24 98 Full Face 35 04/18/19 14:00 99 26 127/84 (98) 96 04/18/19 13:45 104 24 98 Full Face 35 04/18/19 13:00 101 31 129/70 (89) 98 04/18/19 12:00 35 04/18/19 12:00 90 04/18/19 12:00 Bi-pap 04/18/19 12:00 98.4 97 25 112/63 (79) 100 04/18/19 11:14 110 117/70 Height (Feet): 5 Height (Inches): 3.00 Weight (Pounds): 177 Objective Gen: Awake and talking HEENT: NCAT, MMM, EOMI LUNGS: CTAB, No W CARDS: RRR, S1, S2, No M/R/G, ABD: Soft, NT, ND Laboratory Tests Test 04/18/19 11:30 04/19/19 03:45 04/19/19 07:40 Arterial Blood pH 7.333 (7.350-7.450) 7.340 (7.350-7.450) Arterial Blood Partial Pressure CO2 35.7 mmHg (35.0-45.0) 32.4 mmHg (35.0-45.0) L Arterial Blood Partial Pressure O2 101.2 mmHg (75.0-100.0) H 97.4 mmHg (75.0-100.0) Arterial Blood HCO3 18.5 mmol/L (22.0-26.0) L 17.1 mmol/L (22.0-26.0) *L Arterial Blood Oxygen Saturation 97.3 % (95-100) 97.0 % (95-100) Arterial Blood Base Excess -6.7 (-2-2) L -7.8 (-2-2) L Marlo Test Positive Positive White Blood Count 12.6 K/UL (4.8-10.8) H Red Blood Count 3.05 M/UL (4.20-5.40) L Hemoglobin 8.6 G/DL (12.0-16.0) L Hematocrit 26.2 % (37.0-47.0) L Mean Corpuscular Volume 86 FL (80-99) Mean Corpuscular Hemoglobin 28.1 PG (27.0-31.0) Mean Corpuscular Hemoglobin Concent 32.7 G/DL (32.0-36.0) Red Cell Distribution Width 14.6 % (11.6-14.8) Platelet Count 205 K/UL (150-450) Mean Platelet Volume 8.4 FL (6.5-10.1) Neutrophils (%) (Auto) % (45.0-75.0) Lymphocytes (%) (Auto) % (20.0-45.0) Monocytes (%) (Auto) % (1.0-10.0) Eosinophils (%) (Auto) % (0.0-3.0) Basophils (%) (Auto) % (0.0-2.0) Sodium Level 139 MMOL/L (136-145) Potassium Level 3.5 MMOL/L (3.5-5.1) Chloride Level 107 MMOL/L (98-107) Carbon Dioxide Level 19 MMOL/L (21-32) L Anion Gap 14 mmol/L (5-15) Blood Urea Nitrogen 34 mg/dL (7-18) H Creatinine 1.5 MG/DL (0.55-1.30) H Estimat Glomerular Filtration Rate mL/min (>60) Glucose Level 118 MG/DL (74-106) H Calcium Level 8.6 MG/DL (8.5-10.1) Phosphorus Level 3.2 MG/DL (2.5-4.9) Magnesium Level 1.6 MG/DL (1.8-2.4) L Total Bilirubin 0.3 MG/DL (0.2-1.0) Aspartate Amino Transf (AST/SGOT) 25 U/L (15-37) Alanine Aminotransferase (ALT/SGPT) 7 U/L (12-78) L Alkaline Phosphatase 80 U/L (46-116) Total Protein 6.3 G/DL (6.4-8.2) L Albumin 1.1 G/DL (3.4-5.0) L Globulin 5.2 g/dL Albumin/Globulin Ratio 0.2 (1.0-2.7) L Current Medications Medications (Trade) Dose Ordered Sig/Kenisha Route PRN Reason Start Time Stop Time Status Last Admin Dose Admin Acetaminophen (Tylenol) 650 mg Q4H PRN ORAL FEVER 04/17/19 12:36 05/17/19 12:35 Acetaminophen (Tylenol) 650 mg Q4H PRN RECTAL Fever 04/17/19 12:36 05/17/19 12:35 04/18/19 08:53 Albuterol/ Ipratropium (Albuterol/ Ipratropium) 3 ml Q4H PRN HHN Shortness of Breath 04/17/19 12:36 04/22/19 12:35 04/17/19 17:44 Dextrose (Dextrose 50%) 25 ml Q30M PRN IV Hypoglycemia 04/17/19 12:45 05/12/19 19:44 Dextrose (Dextrose 50%) 50 ml Q30M PRN IV Hypoglycemia 04/17/19 12:45 05/12/19 19:44 Dextrose/ Electrolytes 1,000 ml @ 30 mls/hr Q24H IV 04/19/19 11:00 05/19/19 10:59 04/19/19 11:00 Epoetin Bandar (Epoetin Bandar-EPBX(NON ESRD)) 10,000 unit MON-FRI-FRI SUBQ 04/19/19 21:00 05/16/19 20:59 Folic Acid (Folate) 1 mg DAILY ORAL 04/19/19 09:00 05/19/19 08:59 Hydralazine HCl (Apresoline) 10 mg Q2H PRN IV For High Blood Pressure 04/17/19 12:36 05/17/19 12:35 Insulin Aspart (NovoLOG) BEFORE MEALS AND HS SUBQ 04/17/19 16:30 05/12/19 20:59 04/18/19 11:16 Lorazepam (Ativan) 0.5 mg Q6H PRN ORAL For Anxiety 04/17/19 12:37 04/24/19 12:36 Meropenem 1 gm/ Sodium Chloride 55 ml @ 110 mls/hr Q12HR@1100,2300 IVPB 04/18/19 11:00 04/23/19 10:59 04/19/19 11:00 Metoprolol Tartrate (Lopressor) 5 mg EVERY 6 HOURS IVP 04/17/19 13:00 05/14/19 12:59 04/19/19 05:53 Morphine Sulfate (Morphine Sulfate) 2 mg Q4H PRN IVP Severe Pain (Pain Scale 7-10) 04/17/19 12:37 04/24/19 12:36 Ondansetron HCl (Zofran) 4 mg Q6H PRN IVP Nausea & Vomiting 04/17/19 12:37 05/17/19 12:36 Polyethylene Glycol (Miralax) 17 gm DAILYPRN PRN ORAL Constipation 04/17/19 12:37 05/17/19 12:36 Vancomycin HCl (Vanco rx to dose) 1 ea DAILY PRN MISC Per rx protocol 04/18/19 09:00 05/12/19 17:29 Vancomycin HCl/ Dextrose 275 ml @ 183.333 mls/hr Q48H IVPB 04/18/19 06:00 04/23/19 05:59 04/18/19 05:52 Cora Baer M.D. Apr 19, 2019 11:09
--- NOTE | 2019-04-19 11:15 | NUR ---
RADIOLOGY DEPT., CHEST X-RAY DONE.-P.DYE
--- NOTE | 2019-04-19 11:30 | Progress Note ---
DATE: 04/19/2019 SUBJECTIVE: This is a 79-year-old female patient with sepsis. She continues to have some confusion, some disorganized thought process, and mood lability, decline in cognition below baseline. MENTAL STATUS EXAMINATION: This is a 79-year-old female. Appearance is disheveled. Attitude, irritable and agitated. Affect, guarded and restricted. Intellect poor. Mood, depressed and anxious. Motor activity, psychomotor agitation. Attention span is poor. Orientation x2. Speech is pressured. Thought process, disorganized and illogical. Insight and judgment is poor. DIAGNOSIS: Major depressive disorder, mild, recurrent with psychotic features, rule out dementia with psychosis. PLAN: Treat her with Namenda 5 mg twice a day, Ativan 0.5 mg every 6 hours p.r.n. anxiety and agitation. A 20 minutes of cognitive behavioral therapy to help her identify automatic negative thoughts and help her convert those negative thoughts to more positive thoughts to reduce depression, anxiety, and mood lability. Chart reviewed. Discussed with staff. Seen and assessed in her room. Omar Glover M.D. DR: CATY JOB#: [id number] CC:
--- NOTE | 2019-04-19 12:50 | General Progress Note ---
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 ICD Codes: E11.22 - Type 2 diabetes mellitus with diabetic chronic kidney disease; N18.4 - Chronic kidney disease, stage 4 (severe) SNOMED: 07722047, 902048386, 523560341 (3) Diabetes mellitus ICD Codes: E11.9 - Type 2 diabetes mellitus without complications SNOMED: 48468211 (4) CAD (coronary artery disease) ICD Codes: I25.10 - Atherosclerotic heart disease of [place] coronary artery without angina pectoris SNOMED: 89955354 (5) History of CVA (cerebrovascular accident) ICD Codes: Z86.73 - Personal history of transient ischemic attack (TIA), and cerebral infarction without residual deficits SNOMED: 831901640 (6) Anemia in chronic kidney disease (CKD) ICD Codes: N18.9 - Chronic kidney disease, unspecified; D63.1 - Anemia in chronic kidney disease SNOMED: 523562817 (7) Diabetic nephropathy ICD Codes: E11.21 - Type 2 diabetes mellitus with diabetic nephropathy SNOMED: 899653125 Status: unchanged Assessment/Plan: on BIPAP NPO not stable for PEG plan NGT placement and feeding Subjective ROS Limited/Unobtainable: No Allergies: Coded Allergies: No Known Allergies (Unverified , 04/12/19) Objective Last 24 Hour Vital Signs Date Time Temp Pulse Resp B/P (MAP) Pulse Ox O2 Delivery O2 Flow Rate FiO2 04/19/19 12:04 104 118/67 04/19/19 11:20 102 24 100 Facial 35 04/19/19 10:00 123 27 118/98 (105) 98 04/19/19 09:00 120 31 116/66 (83) 95 04/19/19 08:42 131 29 97 Facial 35 04/19/19 08:00 Bi-pap 04/19/19 08:00 35 04/19/19 08:00 107 04/19/19 08:00 99.2 112 24 134/80 (98) 99 04/19/19 07:20 Bi-Pap 04/19/19 07:17 97 26 100 Full Face 35 04/19/19 07:00 92 24 137/82 (100) 100 04/19/19 06:00 103 23 138/83 (101) 100 04/19/19 05:53 108 143/66 04/19/19 05:04 99 28 99 Full Face 35 04/19/19 05:00 109 26 140/74 (96) 98 04/19/19 04:01 108 04/19/19 04:00 35 04/19/19 04:00 99.2 111 26 143/72 (95) 96 04/19/19 04:00 Bi-pap 04/19/19 03:05 107 24 98 Full Face 35 04/19/19 03:00 110 29 130/62 (84) 97 04/19/19 02:00 103 29 117/56 (76) 99 04/19/19 01:27 116 27 97 Full Face 35 04/19/19 01:00 106 27 122/53 (76) 98 04/19/19 00:00 Bi-pap 04/19/19 00:00 99.4 105 33 128/58 (81) 98 04/19/19 00:00 105 04/19/19 00:00 35 04/18/19 23:38 103 125/53 04/18/19 23:19 99 23 99 Full Face 35 04/18/19 23:00 94 26 125/53 (77) 100 04/18/19 22:00 102 25 137/53 (81) 99 04/18/19 21:16 100 20 99 Full Face 35 04/18/19 21:00 100 26 115/51 (72) 99 04/18/19 20:00 35 04/18/19 20:00 Bi-pap 04/18/19 20:00 98 04/18/19 20:00 100.0 98 26 138/72 (94) 99 04/18/19 19:00 99 25 144/75 (98) 99 04/18/19 18:59 110 28 98 Full Face 35 04/18/19 18:59 98 Bi-Pap 35 04/18/19 18:00 97 25 137/72 (93) 98 04/18/19 17:19 105 25 100 Full Face 35 04/18/19 17:09 101 140/85 04/18/19 17:00 101 23 140/85 (103) 100 04/18/19 16:00 Bi-pap 6/23/19 16:00 35 04/18/19 16:00 98.9 98 25 141/84 (103) 99 04/18/19 15:29 107 04/18/19 15:00 108 25 144/79 (100) 100 04/18/19 14:37 95 24 98 Full Face 35 04/18/19 14:00 99 26 127/84 (98) 96 04/18/19 13:45 104 24 98 Full Face 35 04/18/19 13:00 101 31 129/70 (89) 98 Intake and Output 04/18/19 04/19/19 19:00 07:00 Intake Total 506.667 ml 55 ml Output Total 515 ml 395 ml Balance -8.333 ml -340 ml Intake Oral 0 ml IV Total 506.667 ml 55 ml Output Urine Total 515 ml 395 ml # Bowel Movements 2 4 Laboratory Tests 04/19/19 03:45: White Blood Count 12.6H, Red Blood Count 3.05L, Hemoglobin 8.6L, Hematocrit 26.2L, Mean Corpuscular Volume 86, Mean Corpuscular Hemoglobin 28.1, Mean Corpuscular Hemoglobin Concent 32.7, Red Cell Distribution Width 14.6, Platelet Count 205, Mean Platelet Volume 8.4, Neutrophils (%) (Auto) , Lymphocytes (%) ( Auto) , Monocytes (%) (Auto) , Eosinophils (%) (Auto) , Basophils (%) (Auto) , Sodium Level 139, Potassium Level 3.5, Chloride Level 107, Carbon Dioxide Level 19L, Anion Gap 14, Blood Urea Nitrogen 34H, Creatinine 1.5H, Estimat Glomerular Filtration Rate , Glucose Level 118H, Calcium Level 8.6, Phosphorus Level 3.2, Magnesium Level 1.6L, Total Bilirubin 0.3, Aspartate Amino Transf (AST/SGOT) 25 , Alanine Aminotransferase (ALT/SGPT) 7L, Alkaline Phosphatase 80, Total Protein 6.3L, Albumin 1.1L, Globulin 5.2, Albumin/Globulin Ratio 0.2L 04/19/19 07:40: Arterial Blood pH 7.340L, Arterial Blood Partial Pressure CO2 32.4L, Arterial Blood Partial Pressure O2 97.4, Arterial Blood HCO3 17.1*L, Arterial Blood Oxygen Saturation 97.0, Arterial Blood Base Excess -7.8L, Marlo Test Positive Height (Feet): 5 Height (Inches): 3.00 Weight (Pounds): 177 General Appearance: lethargic EENT: normal ENT inspection Neck: supple Cardiovascular: normal rate Respiratory/Chest: decreased breath sounds Abdomen: normal bowel sounds, non tender, soft Extremities: non-tender Darron Gentile MD Apr 19, 2019 12:50
--- NOTE | 2019-04-19 13:00 | NUR ---
NURSE NOTES: Received telephone order from Dr. Gentile to insert NGT and start tube feeding while patient is on bipap. Will insert NGT and start tube feeding when placement is confirmed by KUB.
--- NOTE | 2019-04-19 13:02 | Diagnostic Imaging Report ---
Indication: Dyspnea Comparison: 04/17/2019 A single view chest radiograph was obtained. Findings: Evidence of a right pleural effusion with opacification obscuring the right heart border and diaphragm. Pulmonary vascular congestion also suspected bilaterally with prominent hilar vessels. The heart is enlarged. Bones are osteopenic. There may be a right-sided aortic arch. IMPRESSION: Right pleural effusion. Suspected CHF. Suspected right-sided aorta
--- NOTE | 2019-04-19 13:20 | General Progress Note ---
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 ICD Codes: E11.22 - Type 2 diabetes mellitus with diabetic chronic kidney disease; N18.4 - Chronic kidney disease, stage 4 (severe) SNOMED: 94070675, 739784562, 784268516 (7) Respiratory failure ICD Codes: J96.90 - Respiratory failure, unspecified, unspecified whether with hypoxia or hypercapnia SNOMED: 040203035 Status: unchanged Assessment/Plan: pt diet abx o2 pulm tx neuro psyc eval cbc bmp am ltach eval Subjective Constitutional: Reports: weakness Allergies: Coded Allergies: No Known Allergies (Unverified , 04/12/19) All Systems: reviewed and negative except above Subjective on bipap in icu Objective Last 24 Hour Vital Signs Date Time Temp Pulse Resp B/P (MAP) Pulse Ox O2 Delivery O2 Flow Rate FiO2 04/19/19 12:04 104 118/67 04/19/19 12:00 Bi-pap 04/19/19 11:20 102 24 100 Facial 35 04/19/19 10:00 123 27 118/98 (105) 98 04/19/19 09:00 120 31 116/66 (83) 95 04/19/19 08:42 131 29 97 Facial 35 04/19/19 08:00 Bi-pap 04/19/19 08:00 35 04/19/19 08:00 107 04/19/19 08:00 99.2 112 24 134/80 (98) 99 04/19/19 07:20 Bi-Pap 04/19/19 07:17 97 26 100 Full Face 35 04/19/19 07:00 92 24 137/82 (100) 100 04/19/19 06:00 103 23 138/83 (101) 100 04/19/19 05:53 108 143/66 04/19/19 05:04 99 28 99 Full Face 35 04/19/19 05:00 109 26 140/74 (96) 98 04/19/19 04:01 108 04/19/19 04:00 35 04/19/19 04:00 99.2 111 26 143/72 (95) 96 04/19/19 04:00 Bi-pap 04/19/19 03:05 107 24 98 Full Face 35 04/19/19 03:00 110 29 130/62 (84) 97 04/19/19 02:00 103 29 117/56 (76) 99 04/19/19 01:27 116 27 97 Full Face 35 04/19/19 01:00 106 27 122/53 (76) 98 04/19/19 00:00 Bi-pap 04/19/19 00:00 99.4 105 33 128/58 (81) 98 04/19/19 00:00 105 04/19/19 00:00 35 04/18/19 23:38 103 125/53 04/18/19 23:19 99 23 99 Full Face 35 04/18/19 23:00 94 26 125/53 (77) 100 04/18/19 22:00 102 25 137/53 (81) 99 04/18/19 21:16 100 20 99 Full Face 35 04/18/19 21:00 100 26 115/51 (72) 99 04/18/19 20:00 35 04/18/19 20:00 Bi-pap 04/18/19 20:00 98 04/18/19 20:00 100.0 98 26 138/72 (94) 99 04/18/19 19:00 99 25 144/75 (98) 99 04/18/19 18:59 110 28 98 Full Face 35 04/18/19 18:59 98 Bi-Pap 35 04/18/19 18:00 97 25 137/72 (93) 98 04/18/19 17:19 105 25 100 Full Face 35 04/18/19 17:09 101 140/85 04/18/19 17:00 101 23 140/85 (103) 100 04/18/19 16:00 Bi-pap 04/18/19 16:00 35 04/18/19 16:00 98.9 98 25 141/84 (103) 99 04/18/19 15:29 107 04/18/19 15:00 108 25 144/79 (100) 100 04/18/19 14:37 95 24 98 Full Face 35 04/18/19 14:00 99 26 127/84 (98) 96 04/18/19 13:45 104 24 98 Full Face 35 Intake and Output 04/18/19 04/19/19 19:00 07:00 Intake Total 506.667 ml 55 ml Output Total 515 ml 395 ml Balance -8.333 ml -340 ml Intake Oral 0 ml IV Total 506.667 ml 55 ml Output Urine Total 515 ml 395 ml # Bowel Movements 2 4 Laboratory Tests 04/19/19 03:45: White Blood Count 12.6H, Red Blood Count 3.05L, Hemoglobin 8.6L, Hematocrit 26.2L, Mean Corpuscular Volume 86, Mean Corpuscular Hemoglobin 28.1, Mean Corpuscular Hemoglobin Concent 32.7, Red Cell Distribution Width 14.6, Platelet Count 205, Mean Platelet Volume 8.4, Neutrophils (%) (Auto) , Lymphocytes (%) ( Auto) , Monocytes (%) (Auto) , Eosinophils (%) (Auto) , Basophils (%) (Auto) , Sodium Level 139, Potassium Level 3.5, Chloride Level 107, Carbon Dioxide Level 19L, Anion Gap 14, Blood Urea Nitrogen 34H, Creatinine 1.5H, Estimat Glomerular Filtration Rate , Glucose Level 118H, Calcium Level 8.6, Phosphorus Level 3.2, Magnesium Level 1.6L, Total Bilirubin 0.3, Aspartate Amino Transf (AST/SGOT) 25 , Alanine Aminotransferase (ALT/SGPT) 7L, Alkaline Phosphatase 80, Total Protein 6.3L, Albumin 1.1L, Globulin 5.2, Albumin/Globulin Ratio 0.2L 04/19/19 07:40: Arterial Blood pH 7.340L, Arterial Blood Partial Pressure CO2 32.4L, Arterial Blood Partial Pressure O2 97.4, Arterial Blood HCO3 17.1*L, Arterial Blood Oxygen Saturation 97.0, Arterial Blood Base Excess -7.8L, Marlo Test Positive Height (Feet): 5 Height (Inches): 3.00 Weight (Pounds): 177 General Appearance: lethargic EENT: normal ENT inspection Neck: normal alignment Cardiovascular: normal peripheral pulses, normal rate, regular rhythm Respiratory/Chest: decreased breath sounds Abdomen: normal bowel sounds, non tender, soft Extremities: normal inspection Edema: no edema noted Arm (L), no edema noted Arm (R), no edema noted Leg (L), no edema noted Leg (R), no edema noted Pedal (L), no edema noted Pedal (R), no edema noted Generalized Neurologic: motor weakness Skin: normal pigmentation, warm/dry Jmaa Keating DO Apr 19, 2019 13:20
--- NOTE | 2019-04-19 13:54 | Cardiac Electrophysiology PN ---
Assessment/Plan Assessment/Plan 1. Atrial flutter, self terminated. On IV Lopressor 5 iv q6 hr. Change to Lopressor 25 NG bid 2. HTN On iv metoprolol and prn Hydralazine 3. Coronary artery disease. On metoprolol and Plavix 75 mg daily 4. Sepsis. White count 25,000. On IV abx 5. Anemia.S/P PRBC 6. Renal failure. Getting hydration by Dr. Spivey 7. Dysphagia. PEG pending family consent. 8. History of CVA with hemiplegia. 9. Nonverbal status. 10. Full code DW RN Subjective Subjective NPO and NG was placed. Family undecided re PEG.No more atrial flutter. On BIPAP Objective Last 24 Hour Vital Signs Date Time Temp Pulse Resp B/P (MAP) Pulse Ox O2 Delivery O2 Flow Rate FiO2 04/19/19 13:29 95 20 99 Facial 35 04/19/19 13:00 94 22 115/63 (80) 100 04/19/19 12:04 104 118/67 04/19/19 12:00 35 04/19/19 12:00 99.2 102 22 98/64 (75) 100 04/19/19 12:00 Bi-pap 04/19/19 11:20 102 24 100 Facial 35 04/19/19 11:00 104 23 118/67 (84) 99 04/19/19 10:00 123 27 118/98 (105) 98 04/19/19 09:00 120 31 116/66 (83) 95 04/19/19 08:42 131 29 97 Facial 35 04/19/19 08:00 Bi-pap 04/19/19 08:00 35 04/19/19 08:00 107 04/19/19 08:00 99.2 112 24 134/80 (98) 99 04/19/19 07:20 Bi-Pap 04/19/19 07:17 97 26 100 Full Face 35 04/19/19 07:00 92 24 137/82 (100) 100 04/19/19 06:00 103 23 138/83 (101) 100 04/19/19 05:53 108 143/66 04/19/19 05:04 99 28 99 Full Face 35 04/19/19 05:00 109 26 140/74 (96) 98 04/19/19 04:01 108 04/19/19 04:00 35 04/19/19 04:00 99.2 111 26 143/72 (95) 96 04/19/19 04:00 Bi-pap 04/19/19 03:05 107 24 98 Full Face 35 04/19/19 03:00 110 29 130/62 (84) 97 04/19/19 02:00 103 29 117/56 (76) 99 04/19/19 01:27 116 27 97 Full Face 35 04/19/19 01:00 106 27 122/53 (76) 98 04/19/19 00:00 Bi-pap 04/19/19 00:00 99.4 105 33 128/58 (81) 98 04/19/19 00:00 105 04/19/19 00:00 35 04/18/19 23:38 103 125/53 04/18/19 23:19 99 23 99 Full Face 35 04/18/19 23:00 94 26 125/53 (77) 100 04/18/19 22:00 102 25 137/53 (81) 99 04/18/19 21:16 100 20 99 Full Face 35 04/18/19 21:00 100 26 115/51 (72) 99 04/18/19 20:00 35 04/18/19 20:00 Bi-pap 04/18/19 20:00 98 04/18/19 20:00 100.0 98 26 138/72 (94) 99 04/18/19 19:00 99 25 144/75 (98) 99 04/18/19 18:59 110 28 98 Full Face 35 04/18/19 18:59 98 Bi-Pap 35 04/18/19 18:00 97 25 137/72 (93) 98 04/18/19 17:19 105 25 100 Full Face 35 04/18/19 17:09 101 140/85 04/18/19 17:00 101 23 140/85 (103) 100 04/18/19 16:00 Bi-pap 04/18/19 16:00 35 04/18/19 16:00 98.9 98 25 141/84 (103) 99 04/18/19 15:29 107 04/18/19 15:00 108 25 144/79 (100) 100 04/18/19 14:37 95 24 98 Full Face 35 6/23/19 14:00 99 26 127/84 (98) 96 Intake and Output 04/18/19 04/19/19 19:00 07:00 Intake Total 506.667 ml 55 ml Output Total 515 ml 395 ml Balance -8.333 ml -340 ml Intake Oral 0 ml IV Total 506.667 ml 55 ml Output Urine Total 515 ml 395 ml # Bowel Movements 2 4 Laboratory Tests Test 04/19/19 03:45 04/19/19 07:40 White Blood Count 12.6 K/UL (4.8-10.8) H Red Blood Count 3.05 M/UL (4.20-5.40) L Hemoglobin 8.6 G/DL (12.0-16.0) L Hematocrit 26.2 % (37.0-47.0) L Mean Corpuscular Volume 86 FL (80-99) Mean Corpuscular Hemoglobin 28.1 PG (27.0-31.0) Mean Corpuscular Hemoglobin Concent 32.7 G/DL (32.0-36.0) Red Cell Distribution Width 14.6 % (11.6-14.8) Platelet Count 205 K/UL (150-450) Mean Platelet Volume 8.4 FL (6.5-10.1) Neutrophils (%) (Auto) % (45.0-75.0) Lymphocytes (%) (Auto) % (20.0-45.0) Monocytes (%) (Auto) % (1.0-10.0) Eosinophils (%) (Auto) % (0.0-3.0) Basophils (%) (Auto) % (0.0-2.0) Sodium Level 139 MMOL/L (136-145) Potassium Level 3.5 MMOL/L (3.5-5.1) Chloride Level 107 MMOL/L (98-107) Carbon Dioxide Level 19 MMOL/L (21-32) L Anion Gap 14 mmol/L (5-15) Blood Urea Nitrogen 34 mg/dL (7-18) H Creatinine 1.5 MG/DL (0.55-1.30) H Estimat Glomerular Filtration Rate mL/min (>60) Glucose Level 118 MG/DL (74-106) H Calcium Level 8.6 MG/DL (8.5-10.1) Phosphorus Level 3.2 MG/DL (2.5-4.9) Magnesium Level 1.6 MG/DL (1.8-2.4) L Total Bilirubin 0.3 MG/DL (0.2-1.0) Aspartate Amino Transf (AST/SGOT) 25 U/L (15-37) Alanine Aminotransferase (ALT/SGPT) 7 U/L (12-78) L Alkaline Phosphatase 80 U/L (46-116) Total Protein 6.3 G/DL (6.4-8.2) L Albumin 1.1 G/DL (3.4-5.0) L Globulin 5.2 g/dL Albumin/Globulin Ratio 0.2 (1.0-2.7) L Arterial Blood pH 7.340 (7.350-7.450) Arterial Blood Partial Pressure CO2 32.4 mmHg (35.0-45.0) L Arterial Blood Partial Pressure O2 97.4 mmHg (75.0-100.0) Arterial Blood HCO3 17.1 mmol/L (22.0-26.0) *L Arterial Blood Oxygen Saturation 97.0 % (95-100) Arterial Blood Base Excess -7.8 (-2-2) L Marlo Test Positive Objective HEAD AND NECK: Showed no JVD. On BIPAP and NG tube LUNGS: Coarse rhonchi bilaterally. CARDIOVASCULAR: Regular S1 and S2 with no gallop. ABDOMEN: Soft. EXTREMITIES: No pitting edema. Claude Pena MD Apr 19, 2019 13:54
--- NOTE | 2019-04-19 14:03 | NUR ---
NURSE NOTES: Patient seen by Dr. Spivey at bedside. Reported that patient has been oliguric since 10:00 and patient has been NPO without fluids, IV fluids started at 11:00 and tube feeding to be initiated when KUB confirms NGT placement. No new orders received at this time. Will continue to monitor and follow plan of care.
--- NOTE | 2019-04-19 14:48 | NUR ---
RADIOLOGY DEPT., ABDOMEN X-RAY FOR NGT PLMT COMPLETED.-P.DYE
--- NOTE | 2019-04-19 15:12 | Diagnostic Imaging Report ---
Indication: NG tube placement Comparison: None Single view of the abdomen obtained Findings: NG tube is satisfactory in position with the proximal port and tip both in the body and antrum of the stomach respectively. Contrast noted in the colon. Right pleural effusion and air bronchograms indicative of consolidation noted at the left lung base. IMPRESSION: NG tube in good position. Other findings as above
--- NOTE | 2019-04-19 15:20 | NUR ---
RD ASSESSMENT & RECOMMENDATIONS SEE CARE ACTIVITY FOR COMPLETE ASSESSMENT DAILY ESTIMATED NEEDS: Needs based on Sepsis, DM, cardiac, pulmonary/ 58kg abw 25-30 kcals/kg 9269-7188 total kcals 1-2 g protein/kg 58-116 g total protein 25-30 mL/kg 0144-8339 total fluid mLs NUTRITION DIAGNOSIS: * Swallowing difficulty R/T dysphagia, h/o CVA as evidenced by s/p VSS w/ rec for NPO, nonoral feedings, now s/p NGT insertion, w/ an order for TF. * Altered nutrition related lab values R/T diabetes, ARF, cardiac hx as evidenced by A1C of 8.1, POC glu (114-186), elev creat (2.4 ->1.5), elev BNP (25484->6607). . CURRENT TF: just ordered -> Glucerna 1.2 @ 60ml/hr x 24 hrs ENTERAL NUTRITION RECOMMENDATIONS: Glucerna 1.5 @ 45ml/hr x 24 hrs to provide 1080ml, 1620kcal, 89g prot, 820ml free water * Consider TF change to Glucerna 1.5 for less total volume, as pt at high risk for aspiration due to BIPAP use. * If medically appropriate (pt is on BIPAP), initiate Glucerna 1.5 SLOWLY @ 10ml/hr x 6 hrs * Advance 5ml q 4-6 hrs as tolerated to goal rate. * HOB over 30 degrees/ water flush per MD ADDITIONAL RECOMMENDATIONS: * Calibrated bedscale wt for accurate CBW * Check lytes daily w/ TF initiation, replete as needed -> high risk for refeeding syndrome, TF starting after NPO day 7 * Feed pt as medically appropriate: pt on BIPAP .
--- NOTE | 2019-04-19 15:23 | Nephrology Progress Note ---
Assessment/Plan Problem List: (1) Renal failure (ARF), acute on chronic (2) Diabetic nephropathy (3) Sepsis (4) Pneumonia (5) Right hemiplegia (6) Anemia in chronic kidney disease (CKD) (7) Pulmonary hypertension Assessment Renal failure; - Pre Renal - ? Underlying Renal Anemia Pneumonia / respiratory failure ? aspiration prone Sepsis elevated Troponin UTI HyperGlycemia / DM Right Esvin HTN Plan K Phos IV as needed venofer Folate 24 H urine protein check 2.4 gram Fraga Hydrate BP and BS control urine studies slow hydrate kidney MAIKEL results noted: No [place] ? NGT vs PEG 2D echo Noted visualized except distal setum and inferiro wall hypokinesis Left ventricular ejection fraction estimated to be 55-60 %. avoid Nephrotoxics per orders Subjective ROS Limited/Unobtainable: No Constitutional: Reports: malaise Objective Objective Last 24 Hour Vital Signs Date Time Temp Pulse Resp B/P (MAP) Pulse Ox O2 Delivery O2 Flow Rate FiO2 04/19/19 13:29 95 20 99 Facial 35 04/19/19 13:00 94 22 115/63 (80) 100 04/19/19 12:04 104 118/67 04/19/19 12:00 35 04/19/19 12:00 99.2 102 22 98/64 (75) 100 04/19/19 12:00 Bi-pap 04/19/19 12:00 99 04/19/19 11:20 102 24 100 Facial 35 04/19/19 11:00 104 23 118/67 (84) 99 04/19/19 10:00 123 27 118/98 (105) 98 04/19/19 09:00 120 31 116/66 (83) 95 04/19/19 08:42 131 29 97 Facial 35 04/19/19 08:00 Bi-pap 04/19/19 08:00 35 04/19/19 08:00 107 04/19/19 08:00 99.2 112 24 134/80 (98) 99 04/19/19 07:20 Bi-Pap 04/19/19 07:17 97 26 100 Full Face 35 04/19/19 07:00 92 24 137/82 (100) 100 04/19/19 06:00 103 23 138/83 (101) 100 04/19/19 05:53 108 143/66 04/19/19 05:04 99 28 99 Full Face 35 04/19/19 05:00 109 26 140/74 (96) 98 04/19/19 04:01 108 04/19/19 04:00 35 04/19/19 04:00 99.2 111 26 143/72 (95) 96 04/19/19 04:00 Bi-pap 04/19/19 03:05 107 24 98 Full Face 35 04/19/19 03:00 110 29 130/62 (84) 97 04/19/19 02:00 103 29 117/56 (76) 99 04/19/19 01:27 116 27 97 Full Face 35 04/19/19 01:00 106 27 122/53 (76) 98 04/19/19 00:00 Bi-pap 04/19/19 00:00 99.4 105 33 128/58 (81) 98 04/19/19 00:00 105 04/19/19 00:00 35 04/18/19 23:38 103 125/53 04/18/19 23:19 99 23 99 Full Face 35 04/18/19 23:00 94 26 125/53 (77) 100 04/18/19 22:00 102 25 137/53 (81) 99 04/18/19 21:16 100 20 99 Full Face 35 04/18/19 21:00 100 26 115/51 (72) 99 04/18/19 20:00 35 04/18/19 20:00 Bi-pap 04/18/19 20:00 98 04/18/19 20:00 100.0 98 26 138/72 (94) 99 04/18/19 19:00 99 25 144/75 (98) 99 04/18/19 18:59 110 28 98 Full Face 35 04/18/19 18:59 98 Bi-Pap 35 04/18/19 18:00 97 25 137/72 (93) 98 04/18/19 17:19 105 25 100 Full Face 35 04/18/19 17:09 101 140/85 04/18/19 17:00 101 23 140/85 (103) 100 04/18/19 16:00 Bi-pap 04/18/19 16:00 35 04/18/19 16:00 98.9 98 25 141/84 (103) 99 04/18/19 15:29 107 Intake and Output 04/18/19 04/19/19 19:00 07:00 Intake Total 506.667 ml 55 ml Output Total 515 ml 395 ml Balance -8.333 ml -340 ml Intake Oral 0 ml IV Total 506.667 ml 55 ml Output Urine Total 515 ml 395 ml # Bowel Movements 2 4 Laboratory Tests 04/19/19 03:45: White Blood Count 12.6H, Red Blood Count 3.05L, Hemoglobin 8.6L, Hematocrit 26.2L, Mean Corpuscular Volume 86, Mean Corpuscular Hemoglobin 28.1, Mean Corpuscular Hemoglobin Concent 32.7, Red Cell Distribution Width 14.6, Platelet Count 205, Mean Platelet Volume 8.4, Neutrophils (%) (Auto) , Lymphocytes (%) ( Auto) , Monocytes (%) (Auto) , Eosinophils (%) (Auto) , Basophils (%) (Auto) , Sodium Level 139, Potassium Level 3.5, Chloride Level 107, Carbon Dioxide Level 19L, Anion Gap 14, Blood Urea Nitrogen 34H, Creatinine 1.5H, Estimat Glomerular Filtration Rate , Glucose Level 118H, Calcium Level 8.6, Phosphorus Level 3.2, Magnesium Level 1.6L, Total Bilirubin 0.3, Aspartate Amino Transf (AST/SGOT) 25 , Alanine Aminotransferase (ALT/SGPT) 7L, Alkaline Phosphatase 80, Total Protein 6.3L, Albumin 1.1L, Globulin 5.2, Albumin/Globulin Ratio 0.2L 04/19/19 07:40: Arterial Blood pH 7.340L, Arterial Blood Partial Pressure CO2 32.4L, Arterial Blood Partial Pressure O2 97.4, Arterial Blood HCO3 17.1*L, Arterial Blood Oxygen Saturation 97.0, Arterial Blood Base Excess -7.8L, Marlo Test Positive Height (Feet): 5 Height (Inches): 3.00 Weight (Pounds): 177 General Appearance: no apparent distress EENT: other - on mask / BIPAP Cardiovascular: tachycardia, arrhythmia Respiratory/Chest: decreased breath sounds Abdomen: distended Wally Spivey MD Apr 19, 2019 15:23
--- NOTE | 2019-04-19 15:52 | Hematology/Onc Progress Note ---
Assessment/Plan Assessment/Plan ASSESSMENT AND RECOMMENDATIONS # Anemia of chronic disease due to underlying chronic medical issues, multifactorial --> Anemia workup has been ordered and reviewed. --> Ferritin 274, iron 6, tibc 143 --> No evidence of hemolysis is noted, peripheral smear has been reviewed. --> Hgb goal >7. Transfuse prn. --> Epogen or iron at this time is not particularly indicated --> Medications have been reviewed --> low threshold for gi evaluation in case has occult + --> Hgb trend: 9.4-->9.8 --> 8.6 # Lung mass. First noted on CXR. --> Ct chest has been ordered and reviewed. CT reveals no mass. --> hold off on any tumor marker testing --> as per id and pulm mino, appreciate RECS # Leukocytosis/elevated white blood cell count, unspecified likely related to underlying sepsis due to pna confirmed by CT chest and CXR --> have reviewed peripheral smear and bandemia/neutrophilia noted --> continue antibiotics if they have been started by ID team --> monitor for resolution --> trend 25-->20-->15k-->16.3-->14.3-->12.6 # Respiratory distress. BiPAP per Pulmonary. # Sepsis d/t pna and uti. --> Antibiotics per Infectious Disease. # Renal failure. Nephro is following, appreciate recs # Elevated troponin. Recs per cardiology # Malnutrition. --> Dietary to follow. The time this note is entered does not reflect the time the patient was examined. I greatly appreciate the consultation. Subjective Allergies: Coded Allergies: No Known Allergies (Unverified , 04/12/19) Subjective Subjective Allergies: Coded Allergies: No Known Allergies (Unverified , 04/12/19) All Systems: reviewed and negative except above Subjective 04/15: no events reported, no f/c, on abx, seen by id, pulm, hgb remains stable 04/16: Pt resting in bed, nonverbal. No distress noted. WBC remains elevated. Plan to transfer to [facility]. 04/18: Pt in ICU. CXR yesterday shows pna. H/H stable. On BiPAP. 04/19: Remains in ICU and on BIPAP. Objective Objective Current Medications Medications (Trade) Dose Ordered Sig/Kenisha Route PRN Reason Start Time Stop Time Status Last Admin Dose Admin Acetaminophen (Tylenol) 650 mg Q4H PRN ORAL FEVER 04/17/19 12:36 05/17/19 12:35 Acetaminophen (Tylenol) 650 mg Q4H PRN RECTAL Fever 04/17/19 12:36 05/17/19 12:35 04/18/19 08:53 Albuterol/ Ipratropium (Albuterol/ Ipratropium) 3 ml Q4H PRN HHN Shortness of Breath 04/17/19 12:36 04/22/19 12:35 04/17/19 17:44 Dextrose (Dextrose 50%) 25 ml Q30M PRN IV Hypoglycemia 04/17/19 12:45 05/12/19 19:44 Dextrose (Dextrose 50%) 50 ml Q30M PRN IV Hypoglycemia 04/17/19 12:45 05/12/19 19:44 Dextrose/ Electrolytes 1,000 ml @ 30 mls/hr Q24H IV 04/19/19 11:00 05/19/19 10:59 04/19/19 11:00 Epoetin Bandar (Epoetin Bandar-EPBX(NON ESRD)) 10,000 unit MON-FRI-FRI SUBQ 04/19/19 21:00 05/16/19 20:59 Folic Acid (Folate) 1 mg DAILY ORAL 04/19/19 09:00 05/19/19 08:59 Hydralazine HCl (Apresoline) 10 mg Q2H PRN IV For High Blood Pressure 04/17/19 12:36 05/17/19 12:35 Insulin Aspart (NovoLOG) BEFORE MEALS AND HS SUBQ 04/17/19 16:30 05/12/19 20:59 04/18/19 11:16 Lorazepam (Ativan) 0.5 mg Q6H PRN ORAL For Anxiety 04/17/19 12:37 04/24/19 12:36 Meropenem 1 gm/ Sodium Chloride 55 ml @ 110 mls/hr Q12HR@1100,2300 IVPB 04/18/19 11:00 04/23/19 10:59 04/19/19 11:00 Metoprolol Tartrate (Lopressor) 25 mg Q12HR NG 04/19/19 21:00 05/19/19 20:59 Morphine Sulfate (Morphine Sulfate) 2 mg Q4H PRN IVP Severe Pain (Pain Scale 7-10) 04/17/19 12:37 04/24/19 12:36 Ondansetron HCl (Zofran) 4 mg Q6H PRN IVP Nausea & Vomiting 04/17/19 12:37 05/17/19 12:36 Polyethylene Glycol (Miralax) 17 gm DAILYPRN PRN ORAL Constipation 04/17/19 12:37 05/17/19 12:36 Vancomycin HCl (Vanco rx to dose) 1 ea DAILY PRN MISC Per rx protocol 04/18/19 09:00 05/12/19 17:29 Vancomycin HCl/ Dextrose 275 ml @ 183.333 mls/hr Q48H IVPB 04/18/19 06:00 04/23/19 05:59 04/18/19 05:52 Last 24 Hour Vital Signs Date Time Temp Pulse Resp B/P (MAP) Pulse Ox O2 Delivery O2 Flow Rate FiO2 04/19/19 15:01 105 26 98 Facial 35 04/19/19 13:29 95 20 99 Facial 35 04/19/19 13:00 94 22 115/63 (80) 100 04/19/19 12:04 104 118/67 04/19/19 12:00 35 04/19/19 12:00 99.2 102 22 98/64 (75) 100 04/19/19 12:00 Bi-pap 04/19/19 12:00 99 04/19/19 11:20 102 24 100 Facial 35 04/19/19 11:00 104 23 118/67 (84) 99 04/19/19 10:00 123 27 118/98 (105) 98 04/19/19 09:00 120 31 116/66 (83) 95 04/19/19 08:42 131 29 97 Facial 35 04/19/19 08:00 Bi-pap 04/19/19 08:00 35 04/19/19 08:00 107 04/19/19 08:00 99.2 112 24 134/80 (98) 99 04/19/19 07:20 Bi-Pap 04/19/19 07:17 97 26 100 Full Face 35 04/19/19 07:00 92 24 137/82 (100) 100 04/19/19 06:00 103 23 138/83 (101) 100 04/19/19 05:53 108 143/66 04/19/19 05:04 99 28 99 Full Face 35 04/19/19 05:00 109 26 140/74 (96) 98 04/19/19 04:01 108 04/19/19 04:00 35 04/19/19 04:00 99.2 111 26 143/72 (95) 96 04/19/19 04:00 Bi-pap 04/19/19 03:05 107 24 98 Full Face 35 04/19/19 03:00 110 29 130/62 (84) 97 04/19/19 02:00 103 29 117/56 (76) 99 04/19/19 01:27 116 27 97 Full Face 35 04/19/19 01:00 106 27 122/53 (76) 98 04/19/19 00:00 Bi-pap 04/19/19 00:00 99.4 105 33 128/58 (81) 98 04/19/19 00:00 105 04/19/19 00:00 35 04/18/19 23:38 103 125/53 04/18/19 23:19 99 23 99 Full Face 35 04/18/19 23:00 94 26 125/53 (77) 100 04/18/19 22:00 102 25 137/53 (81) 99 04/18/19 21:16 100 20 99 Full Face 35 04/18/19 21:00 100 26 115/51 (72) 99 04/18/19 20:00 35 04/18/19 20:00 Bi-pap 04/18/19 20:00 98 04/18/19 20:00 100.0 98 26 138/72 (94) 99 04/18/19 19:00 99 25 144/75 (98) 99 04/18/19 18:59 110 28 98 Full Face 35 04/18/19 18:59 98 Bi-Pap 35 04/18/19 18:00 97 25 137/72 (93) 98 04/18/19 17:19 105 25 100 Full Face 35 04/18/19 17:09 101 140/85 04/18/19 17:00 101 23 140/85 (103) 100 04/18/19 16:00 Bi-pap 04/18/19 16:00 35 04/18/19 16:00 98.9 98 25 141/84 (103) 99 6/23/19 15:29 107 04/18/19 15:00 108 25 144/79 (100) 100 04/18/19 14:37 95 24 98 Full Face 35 04/18/19 14:00 99 26 127/84 (98) 96 04/18/19 13:45 104 24 98 Full Face 35 04/18/19 13:00 101 31 129/70 (89) 98 04/18/19 12:00 35 04/18/19 12:00 90 04/18/19 12:00 Bi-pap 04/18/19 12:00 98.4 97 25 112/63 (79) 100 04/18/19 11:14 110 117/70 04/18/19 11:00 109 22 117/70 (86) 96 04/18/19 10:51 102 22 99 Full Face 35 04/18/19 10:00 103 26 111/65 (80) 97 04/18/19 09:23 98.6 04/18/19 09:04 109 24 98 Facial 35 04/18/19 09:00 102 24 128/72 (90) 99 04/18/19 08:00 100.3 109 25 135/94 (108) 99 04/18/19 08:00 Bi-pap 04/18/19 08:00 106 04/18/19 08:00 35 04/18/19 07:09 97 Bi-Pap 35 04/18/19 07:09 103 26 97 Facial 35 04/18/19 07:07 106 26 138/94 (109) 96 04/18/19 06:00 99.9 107 24 138/67 (90) 99 04/18/19 05:50 116 138/60 04/18/19 05:00 106 22 138/60 (86) 99 04/18/19 04:48 112 22 98 Facial 35 04/18/19 04:00 100.5 108 22 124/105 (111) 97 04/18/19 04:00 35 04/18/19 04:00 108 04/18/19 04:00 Bi-pap 04/18/19 03:46 100 22 98 Facial 35 04/18/19 03:00 105 22 112/67 (82) 96 04/18/19 02:00 103 24 116/65 (82) 97 04/18/19 01:16 100 21 98 Facial 35 04/18/19 01:00 100 23 118/65 (82) 97 04/18/19 00:06 99 04/18/19 00:04 Bi-pap 04/18/19 00:00 99.6 99 22 119/65 (83) 97 04/18/19 00:00 35 04/17/19 23:53 112 126/66 04/17/19 23:00 108 22 126/66 (86) 98 04/17/19 22:46 98 16 99 Facial 35 04/17/19 22:00 102 24 111/66 (81) 99 04/17/19 21:00 94 24 108/56 (73) 97 04/17/19 20:59 106 24 98 Facial 35 04/17/19 20:24 95 Bi-Pap 35 04/17/19 20:23 96 21 98 Facial 35 04/17/19 20:00 35 04/17/19 20:00 102 04/17/19 20:00 99.3 102 24 113/59 (77) 96 04/17/19 20:00 Bi-pap 04/17/19 19:00 100 24 125/72 (89) 98 04/17/19 18:00 98 23 111/68 (82) 98 04/17/19 17:47 100 23 100 Bi-Pap 35 04/17/19 17:41 107 129/58 04/17/19 17:40 35 04/17/19 17:35 106 26 97 Bi-Pap 35 04/17/19 17:00 98.2 104 24 120/58 (78) 97 04/17/19 16:53 95 21 98 Facial 35 04/17/19 16:17 102 04/17/19 16:00 99 23 118/75 (89) 97 04/17/19 16:00 50 04/17/19 16:00 100 18 129/58 (81) 96 04/17/19 16:00 Bi-pap Intake and Output 04/18/19 04/19/19 19:00 07:00 Intake Total 506.667 ml 55 ml Output Total 515 ml 395 ml Balance -8.333 ml -340 ml Intake Oral 0 ml IV Total 506.667 ml 55 ml Output Urine Total 515 ml 395 ml # Bowel Movements 2 4 Labs Test 04/17/19 09:20 04/18/19 05:15 04/18/19 09:32 04/18/19 11:30 White Blood Count 15.2 K/UL (4.8-10.8) 14.3 K/UL (4.8-10.8) Red Blood Count 3.44 M/UL (4.20-5.40) 3.59 M/UL (4.20-5.40) Hemoglobin 9.4 G/DL (12.0-16.0) 9.8 G/DL (12.0-16.0) Hematocrit 29.8 % (37.0-47.0) 31.1 % (37.0-47.0) Mean Corpuscular Volume 87 FL (80-99) 87 FL (80-99) Mean Corpuscular Hemoglobin 27.2 PG (27.0-31.0) 27.4 PG (27.0-31.0) Mean Corpuscular Hemoglobin Concent 31.4 G/DL (32.0-36.0) 31.5 G/DL (32.0-36.0) Red Cell Distribution Width 14.1 % (11.6-14.8) 14.4 % (11.6-14.8) Platelet Count 215 K/UL (150-450) 202 K/UL (150-450) Mean Platelet Volume 9.1 FL (6.5-10.1) 7.8 FL (6.5-10.1) Neutrophils (%) (Auto) 81.2 % (45.0-75.0) 83.5 % (45.0-75.0) Lymphocytes (%) (Auto) 12.5 % (20.0-45.0) 10.3 % (20.0-45.0) Monocytes (%) (Auto) 5.7 % (1.0-10.0) 5.6 % (1.0-10.0) Eosinophils (%) (Auto) 0.3 % (0.0-3.0) 0.3 % (0.0-3.0) Basophils (%) (Auto) 0.4 % (0.0-2.0) 0.3 % (0.0-2.0) Sodium Level 140 MMOL/L (136-145) 141 MMOL/L (136-145) Potassium Level 3.6 MMOL/L (3.5-5.1) 3.6 MMOL/L (3.5-5.1) Chloride Level 106 MMOL/L (98-107) 107 MMOL/L (98-107) Carbon Dioxide Level 21 MMOL/L (21-32) 18 MMOL/L (21-32) Anion Gap 13 mmol/L (5-15) 16 mmol/L (5-15) Blood Urea Nitrogen 36 mg/dL (7-18) 33 mg/dL (7-18) Creatinine 1.6 MG/DL (0.55-1.30) 1.5 MG/DL (0.55-1.30) Estimat Glomerular Filtration Rate mL/min (>60) mL/min (>60) Glucose Level 231 MG/DL (74-106) 163 MG/DL (74-106) Calcium Level 9.0 MG/DL (8.5-10.1) 9.2 MG/DL (8.5-10.1) Total Bilirubin 0.3 MG/DL (0.2-1.0) 0.4 MG/DL (0.2-1.0) Aspartate Amino Transf (AST/SGOT) 18 U/L (15-37) 19 U/L (15-37) Alanine Aminotransferase (ALT/SGPT) 8 U/L (12-78) 10 U/L (12-78) Alkaline Phosphatase 96 U/L (46-116) 91 U/L (46-116) Pro-B-Type Natriuretic Peptide 6607 pg/mL (0-125) Total Protein 6.9 G/DL (6.4-8.2) 7.3 G/DL (6.4-8.2) Albumin 1.2 G/DL (3.4-5.0) 1.3 G/DL (3.4-5.0) Globulin 5.7 g/dL 6.0 g/dL Albumin/Globulin Ratio 0.2 (1.0-2.7) 0.2 (1.0-2.7) Prothrombin Time 13.6 SEC (9.30-11.50) Prothromb Time International Ratio 1.3 (0.9-1.1) Activated Partial Thromboplast Time 34 SEC (23-33) Phosphorus Level 3.2 MG/DL (2.5-4.9) Magnesium Level 1.8 MG/DL (1.8-2.4) Arterial Blood pH 7.333 (7.350-7.450) Arterial Blood Partial Pressure CO2 35.7 mmHg (35.0-45.0) Arterial Blood Partial Pressure O2 101.2 mmHg (75.0-100.0) Arterial Blood HCO3 18.5 mmol/L (22.0-26.0) Arterial Blood Oxygen Saturation 97.3 % (95-100) Arterial Blood Base Excess -6.7 (-2-2) Marlo Test Positive Test 04/19/19 03:45 04/19/19 07:40 White Blood Count 12.6 K/UL (4.8-10.8) Red Blood Count 3.05 M/UL (4.20-5.40) Hemoglobin 8.6 G/DL (12.0-16.0) Hematocrit 26.2 % (37.0-47.0) Mean Corpuscular Volume 86 FL (80-99) Mean Corpuscular Hemoglobin 28.1 PG (27.0-31.0) Mean Corpuscular Hemoglobin Concent 32.7 G/DL (32.0-36.0) Red Cell Distribution Width 14.6 % (11.6-14.8) Platelet Count 205 K/UL (150-450) Mean Platelet Volume 8.4 FL (6.5-10.1) Neutrophils (%) (Auto) % (45.0-75.0) Lymphocytes (%) (Auto) % (20.0-45.0) Monocytes (%) (Auto) % (1.0-10.0) Eosinophils (%) (Auto) % (0.0-3.0) Basophils (%) (Auto) % (0.0-2.0) Sodium Level 139 MMOL/L (136-145) Potassium Level 3.5 MMOL/L (3.5-5.1) Chloride Level 107 MMOL/L (98-107) Carbon Dioxide Level 19 MMOL/L (21-32) Anion Gap 14 mmol/L (5-15) Blood Urea Nitrogen 34 mg/dL (7-18) Creatinine 1.5 MG/DL (0.55-1.30) Estimat Glomerular Filtration Rate mL/min (>60) Glucose Level 118 MG/DL (74-106) Calcium Level 8.6 MG/DL (8.5-10.1) Phosphorus Level 3.2 MG/DL (2.5-4.9) Magnesium Level 1.6 MG/DL (1.8-2.4) Total Bilirubin 0.3 MG/DL (0.2-1.0) Aspartate Amino Transf (AST/SGOT) 25 U/L (15-37) Alanine Aminotransferase (ALT/SGPT) 7 U/L (12-78) Alkaline Phosphatase 80 U/L (46-116) Total Protein 6.3 G/DL (6.4-8.2) Albumin 1.1 G/DL (3.4-5.0) Globulin 5.2 g/dL Albumin/Globulin Ratio 0.2 (1.0-2.7) Arterial Blood pH 7.340 (7.350-7.450) Arterial Blood Partial Pressure CO2 32.4 mmHg (35.0-45.0) Arterial Blood Partial Pressure O2 97.4 mmHg (75.0-100.0) Arterial Blood HCO3 17.1 mmol/L (22.0-26.0) Arterial Blood Oxygen Saturation 97.0 % (95-100) Arterial Blood Base Excess -7.8 (-2-2) Marlo Test Positive Height (Feet): 5 Height (Inches): 3.00 Weight (Pounds): 177 Objective PHYSICAL EXAMINATION: GENERAL: BiPAP in place, sleeping in bed, slight short of breath. VITAL SIGNS: Have been reviewed CARDIOVASCULAR: No murmur. LUNGS: Poor exchange. ABDOMEN: Bowel sounds distant. EXTREMITIES: No cyanosis, clubbing, or edema. NEUROLOGIC: Patient is flaccid in bed, probably sedated. Layla Duarte NP Apr 19, 2019 15:52
--- NOTE | 2019-04-19 16:00 | NUR ---
NURSE NOTES: Patient noted with large brown bowel movement. Pericare done. NGT placement confirmed, started tube feeding of Glucerna 1.2 @ 15 cc/hr. HoB elevated.
--- NOTE | 2019-04-19 18:00 | NUR ---
NURSE NOTES: Patient tolerating tube feeding at this time, no residuals noted. Will endorse to next shift to advance as tolerated.
--- NOTE | 2019-04-19 19:22 | NUR ---
HAND-OFF: Report given to Luisa Robles RN.
--- NOTE | 2019-04-19 19:50 | NUR ---
NURSE NOTES: PATIENT OPEN EYES, APHAGIC AT THIS TIME, ON BIPAP, I/E 15/5, FIO2 35%, RATE 14, O2 SATURATION OVER 98% NOTED, NGT TO RIGHT NARES, INTACT AND PATENT, ONGOING GLUCERNA 1.2 AT 15ML/HR, RESIDUE 40ML NOTED, KEPT HOB OVER 30 DEGREES, NO N/V NOTED, ABDOMEN SOFT, NON TENDER, F/C INTACT AND PATENT, YELLOW URINE OUTED, PERIPHERAL LINE TO LEFT FOREARM, INTACT AND PATENT, ONGOING IV FLUID D5W W/ KCL 20MEQ AT 30ML/HR VIA PERIPHERAL LINE, ON P200 BED, SCD'S TO BOTH LOWER LEGS, MADE LOWER BED POSITION AND PROVIDED CALL LIGHT WITHIN REACH, ON BED ALARM, WILL CONTINUE TO MONITOR.
[2019-04-19] MEDS: Metoprolol 25mg tab NG SCH (20:33)
[2019-04-19] MEDS: Epoetin Alfa-EPBX (NON ESRD)10,000 unit/ml vial SUBQ SCH (20:34)
--- NOTE | 2019-04-19 22:10 | NUR ---
NURSE NOTES: ORAL CARE WAS DONE, NO RESISTANCE TO CARE STATUS.
[2019-04-20] VITALS (24 sets, daily range): BP systolic 89–137; BP diastolic 49–84
--- NOTE | 2019-04-20 00:20 | NUR ---
NURSE NOTES: REPOSITIONED, NO PAIN OR DISTRESS NOTED AT THIS TIME.
--- NOTE | 2019-04-20 02:30 | NUR ---
NURSE NOTES: PATIENT ASLEEP STATUS, NO PAIN OR DISTRESS NOTED AT THIS TIME, WILL CONTINUE PLAN OF CARE.
--- NOTE | 2019-04-20 03:51 | Neurology Progress Note ---
Interim History Interim History ROS Limited/Unobtainable: No Complaints: AMS Events: Still in ICU on BIPAP with leukocytosis and fever. Interim History This visit was conducted on April 20, [address] Geo Espitia. Objective Physical Exam Last Vital Signs Date Time Temp Pulse Resp B/P (MAP) Pulse Ox O2 Delivery O2 Flow Rate FiO2 04/20/19 01:10 98 26 100 Facial 35 04/20/19 01:00 121/76 (91) 04/20/19 00:00 97.8 04/17/19 05:22 2.0 Laboratory Tests Test 04/19/19 07:40 Arterial Blood pH 7.340 (7.350-7.450) Arterial Blood Partial Pressure CO2 32.4 mmHg (35.0-45.0) L Arterial Blood Partial Pressure O2 97.4 mmHg (75.0-100.0) Arterial Blood HCO3 17.1 mmol/L (22.0-26.0) *L Arterial Blood Oxygen Saturation 97.0 % (95-100) Arterial Blood Base Excess -7.8 (-2-2) L Marlo Test Positive General: well developed, well nourished Head: normocophalic Neck: no rigidity EENT: benign Neurologic Exam Mental Status: awake, other Speech: other Language: other Cranial Nerve II: other Cranial Nerves III, IV, : other Cranial Nerve V: other Cranial Nerve VII: other Cranial Nerve VIII: other Cranial Nerve IX: other Cranial Nerve XI: other Cranial Nerve XII: other Motor System: other Sensory: other Coordination: other Gait: other Objective Right Hemiplegia at baseline- not following commands, eyes opening to noxious stimuli. Impression/Recommendations Problems: (1) Respiratory distress (2) Malnutrition (3) UTI (urinary tract infection) (4) Diabetic nephropathy (5) Renal failure (ARF), acute on chronic (6) Anemia in chronic kidney disease (CKD) (7) Pulmonary hypertension (8) Hypernatremia (9) Sepsis (10) Pneumonia (11) History of CVA (cerebrovascular accident) (12) CAD (coronary artery disease) (13) Right hemiplegia (14) Diabetes mellitus (15) Hypertensive heart disease (16) 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 (17) Nosocomial pneumonia (18) At high risk for aspiration (19) Acute metabolic encephalopathy Status: stable Recommendations Continue Q2 hour neuro obs SBP<140 Maintain Na 135-145 Consider Enteral Feeding Maintain normothermia with Tylenol Maintain normoglycemia with ISS Folic Acid 1mg QD PO/NG Abx as per ID 2D Echo No indication for neuroimaging at this time. Critical care time of 40 minutes, was performed in order to assess and manage the high probability of imminent or life threatening deterioration to respiratory/neurologic function, with frequent reassessment and excludes all billable procedures. Phyllis Diop N.P. Apr 20, 2019 03:51
--- NOTE | 2019-04-20 04:20 | NUR ---
NURSE NOTES: MORNING CARE WAS DONE.
[2019-04-20] MEDS: Vancomycin 275 ML IVPB SCH (05:39)
[2019-04-20 05:45] LABS: BASOPHILS % (AUTO) 1.1 % (0.0-2.0); EOSINOPHILS % (AUTO) 0.4 % (0.0-3.0); HEMATOCRIT 27.8 % (37.0-47.0); HEMOGLOBIN 8.6 G/DL (12.0-16.0); LYMPHOCYTES % (AUTO) 7.2 % (20.0-45.0); MEAN CORPUSCULAR VOLUME 89 FL (80-99); MONOCYTES % (AUTO) 7.2 % (1.0-10.0); NEUTROPHILS % (AUTO) 84.2 % (45.0-75.0); PLATELET COUNT 195 K/UL (150-450); RED BLOOD COUNT 3.14 M/UL (4.20-5.40); RED CELL DISTRIBUTION WIDTH 15.1 % (11.6-14.8); WHITE BLOOD COUNT 12.1 K/UL (4.8-10.8)
--- NOTE | 2019-04-20 05:47 | NUR ---
Pt. received on NIPPV 15/5 FiO2 .35 with full face mask repositioned every check to offload facial pressure. Gel pad placed on skin to prevent skin breakdown. Skin tear noted on left cheeks biotane in place RN Jericho aware. Pt. has adequate chest rise. Will continue to monitor.
[2019-04-20 06:01] LABS: ANION GAP 17 mmol/L (5-15); BLOOD UREA NITROGEN 41 mg/dL (7-18); CALCIUM 8.9 MG/DL (8.5-10.1); CARBON DIOXIDE 17 MMOL/L (21-32); CHLORIDE 109 MMOL/L (98-107); CREATININE 1.8 MG/DL (0.55-1.30); POTASSIUM 4.3 MMOL/L (3.5-5.1); SODIUM 142 MMOL/L (136-145)
[2019-04-20] MEDS: NovoLOG Insulin Flexpen SUBQ SCH ×3 (06:03→18:26)
--- NOTE | 2019-04-20 06:43 | NUR ---
NURSE NOTES: NO ACUTE DISTRESS NOTED AT THIS SHIFT.
--- NOTE | 2019-04-20 07:00 | NUR ---
NURSE NOTES: Received pt from HORTENCIA Echavarria. Patient is lethargic. BIPAP 15/5, Fio2 30%, RR 14. Breathing even and unlabored. Rhonchi heard bilateral b/s. Right side weakness noted. SR to ST on monitoring analyst. Right NGT running Glucern 1.2@25cc/hr, 30cc residual noted, HOB 35 degrees, abd round, soft and non-distended. FC draining well to gravity. bilateral cheek skin tear noted possibly from BIPAP protectant tape. LFA 2G running D5W with 20kcl @30cc/hr. Afebrile. Bed locked, alarmed and in lowest position. Will continue plan of care.
--- NOTE | 2019-04-20 07:36 | NUR ---
HAND-OFF: Report given to HORTENCIA MACKEY.
[2019-04-20] MEDS: Metoprolol 25mg tab NG SCH ×2 (09:09→20:33)
--- NOTE | 2019-04-20 09:17 | NUR ---
DISCHARGE SWALLOW/SPEECH THERAPY SUMMARY: PATIENT SEEN FOR DYSPHAGIA, SEE SWALLOW EVALUATION AND MOD BARIUM SWALLOW STUDY REPORTS. PATIENT TRANSFERRED TO ICU FOR CHANGE IN MEDICAL STATUS AND REQUIRES BIPAP. PATIENT HAS PEG FEEDINGS NOW. PLAN: D/C FROM SKILLED PLASTIC SURGERY MANAGER AT THIS TIME, PLEASE RECONSULT WHEN INDICATED.
--- NOTE | 2019-04-20 10:14 | NUR ---
SUPPLIER SPECIALISTGLOBAL ACCOUNT DIRECTOR SI:SEPSIS . PNA VS: BP 124/57, P 106, T 98.7, RR 17, SpO2 100 on Bi-pap FiO2 35 WBC 12.1, RBC 3.14, H&H 8.6/27.8, BUN 41, Cr 1.8 IS:LOPRESSOR 25mg VANCOMYCIN 275ml IVPB MEROPENEM 55ml IVPB D5/KCl x1L IV ICU STATUS
--- NOTE | 2019-04-20 10:21 | Pulmonolgy Critical Care Note ---
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 (7) Hypertensive heart disease (8) Right hemiplegia (9) History of CVA (cerebrovascular accident) (10) CAD (coronary artery disease) Respiratory: monitor respiratory rate, adjust FIO2, CXR Cardiac: continue to monitor HR/BP Renal: F/U I&O, check electrolytes Infectious Disease: check cultures Gastrointestinal: continue feedings/current rate Endocrine: monitor blood sugar Hematologic: transfuse if hgb<8.5 Neurologic: keep patient comfortable Prophylaxis: Protonix, Heparin Time Spent (Minutes): 40 Notes Reviewed: watch assembly inspector, cardio Discussed with: nurses, consultants, transplant case managermanager sales - Objective Last 24 Hour Vital Signs Date Time Temp Pulse Resp B/P (MAP) Pulse Ox O2 Delivery O2 Flow Rate FiO2 04/20/19 09:09 106 108/60 04/20/19 08:00 Bi-pap 04/20/19 08:00 35 04/20/19 07:00 86 17 103/64 (77) 100 04/20/19 06:45 82 17 100 Facial 35 04/20/19 06:45 Bi-Pap 04/20/19 06:00 87 18 124/57 (79) 100 04/20/19 05:29 86 18 100 Facial 35 04/20/19 05:00 80 20 109/66 (80) 100 04/20/19 04:00 98.7 87 20 120/80 (93) 100 04/20/19 04:00 35 04/20/19 04:00 Bi-pap 04/20/19 03:37 82 04/20/19 03:29 83 20 100 Facial 35 04/20/19 03:00 102 22 137/64 (88) 99 04/20/19 02:00 102 21 126/84 (98) 100 04/20/19 01:10 98 26 100 Facial 35 04/20/19 01:00 101 18 121/76 (91) 100 04/20/19 00:00 97.8 101 24 114/61 (78) 100 04/20/19 00:00 Bi-pap 04/20/19 00:00 35 04/19/19 23:10 88 23 100 Facial 35 04/19/19 23:03 104 04/19/19 23:00 92 18 114/63 (80) 100 04/19/19 22:00 97 20 115/54 (74) 98 04/19/19 21:00 97 20 105/65 (78) 99 04/19/19 20:51 95 24 95 Facial 35 04/19/19 20:33 98 107/58 04/19/19 20:00 35 04/19/19 20:00 98.7 95 23 107/42 (63) 99 04/19/19 20:00 Bi-pap 04/19/19 19:49 86 04/19/19 19:34 Bi-Pap 04/19/19 19:29 88 26 99 Facial 35 04/19/19 19:00 86 21 91/60 (70) 100 04/19/19 18:00 98 24 94/49 (64) 99 04/19/19 17:00 95 23 99/56 (70) 99 04/19/19 16:32 93 25 97 Facial 35 04/19/19 16:00 98.2 103 23 95/62 (73) 99 04/19/19 16:00 Bi-pap 04/19/19 16:00 35 04/19/19 16:00 106 04/19/19 15:01 105 26 98 Facial 35 04/19/19 15:00 100 23 93/42 (59) 100 04/19/19 14:00 94 21 115/69 (84) 99 04/19/19 13:29 95 20 99 Facial 35 04/19/19 13:00 94 22 115/63 (80) 100 04/19/19 12:04 104 118/67 04/19/19 12:00 35 04/19/19 12:00 99.2 102 22 98/64 (75) 100 04/19/19 12:00 Bi-pap 04/19/19 12:00 99 04/19/19 11:20 102 24 100 Facial 35 04/19/19 11:00 104 23 118/67 (84) 99 Status: awake Condition: critical HEENT: atraumatic Neck: full ROM Lungs: rales, rhonchi Heart: HR/BP stable Abdomen: soft, non-tender, active bowel sounds Extremities: no C/C/E, edema Micro: Microbiology Date/Time Source Procedure Growth Status 04/19/19 14:00 Sputum Induced Gram Stain Pending Resulted 04/19/19 14:00 Sputum Induced Sputum Culture - Preliminary NO GROWTH Resulted Accucheck: 166 Critical Care - Subjective Condition: critical FI02: 35 Vent Support Breath Rate: 14 Vent Support Mode: BiLevel Sputum Amount: Moderate Tube Feeding Amount: 25 I&O: Intake and Output 04/19/19 04/20/19 19:00 07:00 Intake Total 340 ml 940 ml Output Total 235 ml 275 ml Balance 105 ml 665 ml Free Water 50 ml IV Total 295 ml 650 ml Tube Feeding 45 ml 210 ml Other 30 ml Output Urine Total 235 ml 275 ml # Bowel Movements 2 1 CXR: no improvement Labs: Laboratory Tests Test 04/20/19 05:15 White Blood Count 12.1 K/UL (4.8-10.8) H Red Blood Count 3.14 M/UL (4.20-5.40) L Hemoglobin 8.6 G/DL (12.0-16.0) L Hematocrit 27.8 % (37.0-47.0) L Mean Corpuscular Volume 89 FL (80-99) Mean Corpuscular Hemoglobin 27.4 PG (27.0-31.0) Mean Corpuscular Hemoglobin Concent 31.0 G/DL (32.0-36.0) L Red Cell Distribution Width 15.1 % (11.6-14.8) H Platelet Count 195 K/UL (150-450) Mean Platelet Volume 7.1 FL (6.5-10.1) Neutrophils (%) (Auto) 84.2 % (45.0-75.0) H Lymphocytes (%) (Auto) 7.2 % (20.0-45.0) L Monocytes (%) (Auto) 7.2 % (1.0-10.0) Eosinophils (%) (Auto) 0.4 % (0.0-3.0) Basophils (%) (Auto) 1.1 % (0.0-2.0) Sodium Level 142 MMOL/L (136-145) Potassium Level 4.3 MMOL/L (3.5-5.1) Chloride Level 109 MMOL/L (98-107) H Carbon Dioxide Level 17 MMOL/L (21-32) L Anion Gap 17 mmol/L (5-15) H Blood Urea Nitrogen 41 mg/dL (7-18) H Creatinine 1.8 MG/DL (0.55-1.30) H Estimat Glomerular Filtration Rate mL/min (>60) Glucose Level 142 MG/DL (74-106) H Calcium Level 8.9 MG/DL (8.5-10.1) Vancomycin Level Trough 20.7 ug/mL (5.0-12.0) H Tony Springer MD Apr 20, 2019 10:21
[2019-04-20] MEDS ORDERED: Heparin1,000 units/500ml Premix(Conc:2 units/ml) IV PRN (10:30)
[2019-04-20] MEDS ORDERED: Lidocaine 1% Plain 30 ml INJ PRN (10:30)
--- NOTE | 2019-04-20 10:45 | NUR ---
NURSE NOTES: Received orders to intubate patient per Dr. Springer. Orally intubated ETT 7.5/23cm at lip line, inserted by ERMD Dr. Campa. Received vent settings, see order history. CXR STAT ordered. Rhonchi heard bilateral breath sounds heard by auscultation, thick yellow secretions noted.
--- NOTE | 2019-04-20 10:45 | NUR ---
Pt intubated by MD Campa due to unable to tolerate bipap. Pt intubated with 7.5 @ 23 lip. Color change, condensation and bilateral breath sounds noted. Tube is secure and in place. Pt placed on AC 16 500 55% +5. Will continue to monitor. Addendum: 04/20/19 at 1127 by AUBREY SMILEY RT Amended: Links added.
[2019-04-20] MEDS ORDERED: Morphine Sulfate 4mg/ml Inj (IV USE ONLY) IVP PRN (11:00)
[2019-04-20] MEDS: D5W w/KCl 20mEq 1,000 ML IV SCH ×2 (11:00→22:37)
--- NOTE | 2019-04-20 11:27 | Cardiac Electrophysiology PN ---
Assessment/Plan Assessment/Plan 1. Atrial flutter, self terminated. On Lopressor 25 OG bid 2. HTN On metoprolol and prn Hydralazine 3. Coronary artery disease. On metoprolol and Plavix 75 mg daily 4. Respiratory failure, intubated today 5. Sepsis. White count 25,000. On IV abx 6. Anemia.S/P PRBC 7. Renal failure. Getting hydration by Dr. Spivey 8. Dysphagia. PEG pending family consent. 9. History of CVA with hemiplegia. 10. Nonverbal status. 11. Full code DW RN Subjective Subjective Was just intubated. Family undecided re PEG. Had atrial flutter again last night. Off pressors Objective Last 24 Hour Vital Signs Date Time Temp Pulse Resp B/P (MAP) Pulse Ox O2 Delivery O2 Flow Rate FiO2 04/20/19 09:09 106 108/60 04/20/19 08:00 Bi-pap 04/20/19 08:00 35 04/20/19 07:00 86 17 103/64 (77) 100 04/20/19 06:45 82 17 100 Facial 35 04/20/19 06:45 Bi-Pap 04/20/19 06:00 87 18 124/57 (79) 100 04/20/19 05:29 86 18 100 Facial 35 04/20/19 05:00 80 20 109/66 (80) 100 04/20/19 04:00 98.7 87 20 120/80 (93) 100 04/20/19 04:00 35 04/20/19 04:00 Bi-pap 04/20/19 03:37 82 04/20/19 03:29 83 20 100 Facial 35 04/20/19 03:00 102 22 137/64 (88) 99 04/20/19 02:00 102 21 126/84 (98) 100 04/20/19 01:10 98 26 100 Facial 35 04/20/19 01:00 101 18 121/76 (91) 100 04/20/19 00:00 97.8 101 24 114/61 (78) 100 04/20/19 00:00 Bi-pap 04/20/19 00:00 35 04/19/19 23:10 88 23 100 Facial 35 04/19/19 23:03 104 04/19/19 23:00 92 18 114/63 (80) 100 04/19/19 22:00 97 20 115/54 (74) 98 04/19/19 21:00 97 20 105/65 (78) 99 04/19/19 20:51 95 24 95 Facial 35 04/19/19 20:33 98 107/58 04/19/19 20:00 35 04/19/19 20:00 98.7 95 23 107/42 (63) 99 04/19/19 20:00 Bi-pap 04/19/19 19:49 86 04/19/19 19:34 Bi-Pap 04/19/19 19:29 88 26 99 Facial 35 04/19/19 19:00 86 21 91/60 (70) 100 04/19/19 18:00 98 24 94/49 (64) 99 04/19/19 17:00 95 23 99/56 (70) 99 04/19/19 16:32 93 25 97 Facial 35 04/19/19 16:00 98.2 103 23 95/62 (73) 99 04/19/19 16:00 Bi-pap 04/19/19 16:00 35 04/19/19 16:00 106 04/19/19 15:01 105 26 98 Facial 35 04/19/19 15:00 100 23 93/42 (59) 100 04/19/19 14:00 94 21 115/69 (84) 99 04/19/19 13:29 95 20 99 Facial 35 04/19/19 13:00 94 22 115/63 (80) 100 04/19/19 12:04 104 118/67 04/19/19 12:00 35 04/19/19 12:00 99.2 102 22 98/64 (75) 100 04/19/19 12:00 Bi-pap 04/19/19 12:00 99 Intake and Output 04/19/19 04/20/19 19:00 07:00 Intake Total 340 ml 940 ml Output Total 235 ml 275 ml Balance 105 ml 665 ml Free Water 50 ml IV Total 295 ml 650 ml Tube Feeding 45 ml 210 ml Other 30 ml Output Urine Total 235 ml 275 ml # Bowel Movements 2 1 Laboratory Tests Test 04/20/19 05:15 04/20/19 10:20 White Blood Count 12.1 K/UL (4.8-10.8) H Red Blood Count 3.14 M/UL (4.20-5.40) L Hemoglobin 8.6 G/DL (12.0-16.0) L Hematocrit 27.8 % (37.0-47.0) L Mean Corpuscular Volume 89 FL (80-99) Mean Corpuscular Hemoglobin 27.4 PG (27.0-31.0) Mean Corpuscular Hemoglobin Concent 31.0 G/DL (32.0-36.0) L Red Cell Distribution Width 15.1 % (11.6-14.8) H Platelet Count 195 K/UL (150-450) Mean Platelet Volume 7.1 FL (6.5-10.1) Neutrophils (%) (Auto) 84.2 % (45.0-75.0) H Lymphocytes (%) (Auto) 7.2 % (20.0-45.0) L Monocytes (%) (Auto) 7.2 % (1.0-10.0) Eosinophils (%) (Auto) 0.4 % (0.0-3.0) Basophils (%) (Auto) 1.1 % (0.0-2.0) Sodium Level 142 MMOL/L (136-145) Potassium Level 4.3 MMOL/L (3.5-5.1) Chloride Level 109 MMOL/L (98-107) H Carbon Dioxide Level 17 MMOL/L (21-32) L Anion Gap 17 mmol/L (5-15) H Blood Urea Nitrogen 41 mg/dL (7-18) H Creatinine 1.8 MG/DL (0.55-1.30) H Estimat Glomerular Filtration Rate mL/min (>60) Glucose Level 142 MG/DL (74-106) H Calcium Level 8.9 MG/DL (8.5-10.1) Vancomycin Level Trough 20.7 ug/mL (5.0-12.0) H Arterial Blood pH 7.296 (7.350-7.450) Arterial Blood Partial Pressure CO2 42.3 mmHg (35.0-45.0) Arterial Blood Partial Pressure O2 95.0 mmHg (75.0-100.0) Arterial Blood HCO3 20.2 mmol/L (22.0-26.0) L Arterial Blood Oxygen Saturation 96.4 % (95-100) Arterial Blood Base Excess -5.9 (-2-2) L Marlo Test Positive Microbiology Date/Time Source Procedure Growth Status 04/19/19 14:00 Sputum Induced Gram Stain Pending Resulted 04/19/19 14:00 Sputum Induced Sputum Culture - Preliminary NO GROWTH Resulted Objective HEAD AND NECK: No JVD. On BIPAP and NG tube LUNGS: Coarse rhonchi bilaterally. CARDIOVASCULAR: Regular S1 and S2 with no gallop. ABDOMEN: Soft. EXTREMITIES: No pitting edema. Claude Pena MD Apr 20, 2019 11:27
--- NOTE | 2019-04-20 11:59 | General Progress Note ---
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 ICD Codes: E11.22 - Type 2 diabetes mellitus with diabetic chronic kidney disease; N18.4 - Chronic kidney disease, stage 4 (severe) SNOMED: 22740025, 817360410, 844323307 (3) Diabetes mellitus ICD Codes: E11.9 - Type 2 diabetes mellitus without complications SNOMED: 09462509 (4) CAD (coronary artery disease) ICD Codes: I25.10 - Atherosclerotic heart disease of [place] coronary artery without angina pectoris SNOMED: 01349829 (5) History of CVA (cerebrovascular accident) ICD Codes: Z86.73 - Personal history of transient ischemic attack (TIA), and cerebral infarction without residual deficits SNOMED: 909056066 (6) Anemia in chronic kidney disease (CKD) ICD Codes: N18.9 - Chronic kidney disease, unspecified; D63.1 - Anemia in chronic kidney disease SNOMED: 642245216 (7) Diabetic nephropathy ICD Codes: E11.21 - Type 2 diabetes mellitus with diabetic nephropathy SNOMED: 306225428 Status: stable Assessment/Plan: intubated NGT feeding plan PEG for tomorrow Subjective ROS Limited/Unobtainable: No Allergies: Coded Allergies: No Known Allergies (Unverified , 04/12/19) Objective Last 24 Hour Vital Signs Date Time Temp Pulse Resp B/P (MAP) Pulse Ox O2 Delivery O2 Flow Rate FiO2 04/20/19 10:45 77 16 55 04/20/19 09:09 106 108/60 04/20/19 08:00 Bi-pap 04/20/19 08:00 35 04/20/19 07:00 86 17 103/64 (77) 100 04/20/19 06:45 82 17 100 Facial 35 04/20/19 06:45 Bi-Pap 04/20/19 06:00 87 18 124/57 (79) 100 04/20/19 05:29 86 18 100 Facial 35 04/20/19 05:00 80 20 109/66 (80) 100 04/20/19 04:00 98.7 87 20 120/80 (93) 100 04/20/19 04:00 35 04/20/19 04:00 Bi-pap 04/20/19 03:37 82 04/20/19 03:29 83 20 100 Facial 35 04/20/19 03:00 102 22 137/64 (88) 99 04/20/19 02:00 102 21 126/84 (98) 100 04/20/19 01:10 98 26 100 Facial 35 04/20/19 01:00 101 18 121/76 (91) 100 04/20/19 00:00 97.8 101 24 114/61 (78) 100 04/20/19 00:00 Bi-pap 04/20/19 00:00 35 04/19/19 23:10 88 23 100 Facial 35 04/19/19 23:03 104 04/19/19 23:00 92 18 114/63 (80) 100 04/19/19 22:00 97 20 115/54 (74) 98 04/19/19 21:00 97 20 105/65 (78) 99 04/19/19 20:51 95 24 95 Facial 35 04/19/19 20:33 98 107/58 04/19/19 20:00 35 04/19/19 20:00 98.7 95 23 107/42 (63) 99 04/19/19 20:00 Bi-pap 04/19/19 19:49 86 04/19/19 19:34 Bi-Pap 04/19/19 19:29 88 26 99 Facial 35 04/19/19 19:00 86 21 91/60 (70) 100 04/19/19 18:00 98 24 94/49 (64) 99 04/19/19 17:00 95 23 99/56 (70) 99 04/19/19 16:32 93 25 97 Facial 35 04/19/19 16:00 98.2 103 23 95/62 (73) 99 04/19/19 16:00 Bi-pap 04/19/19 16:00 35 04/19/19 16:00 106 04/19/19 15:01 105 26 98 Facial 35 04/19/19 15:00 100 23 93/42 (59) 100 04/19/19 14:00 94 21 115/69 (84) 99 04/19/19 13:29 95 20 99 Facial 35 04/19/19 13:00 94 22 115/63 (80) 100 6/24/19 12:04 104 118/67 6/24/19 12:00 35 04/19/19 12:00 99.2 102 22 98/64 (75) 100 04/19/19 12:00 Bi-pap 04/19/19 12:00 99 Intake and Output 04/19/19 04/20/19 19:00 07:00 Intake Total 340 ml 940 ml Output Total 235 ml 275 ml Balance 105 ml 665 ml Free Water 50 ml IV Total 295 ml 650 ml Tube Feeding 45 ml 210 ml Other 30 ml Output Urine Total 235 ml 275 ml # Bowel Movements 2 1 Laboratory Tests 04/20/19 05:15: White Blood Count 12.1H, Red Blood Count 3.14L, Hemoglobin 8.6L, Hematocrit 27.8L, Mean Corpuscular Volume 89, Mean Corpuscular Hemoglobin 27.4, Mean Corpuscular Hemoglobin Concent 31.0L, Red Cell Distribution Width 15.1H, Platelet Count 195, Mean Platelet Volume 7.1, Neutrophils (%) (Auto) 84.2H, Lymphocytes (%) (Auto) 7.2L, Monocytes (%) (Auto) 7.2, Eosinophils (%) (Auto) 0.4, Basophils (%) (Auto) 1.1, Sodium Level 142, Potassium Level 4.3, Chloride Level 109H, Carbon Dioxide Level 17L, Anion Gap 17H, Blood Urea Nitrogen 41H, Creatinine 1.8H, Estimat Glomerular Filtration Rate , Glucose Level 142H, Calcium Level 8.9, Vancomycin Level Trough 20.7H 04/20/19 10:20: Arterial Blood pH 7.296L, Arterial Blood Partial Pressure CO2 42.3, Arterial Blood Partial Pressure O2 95.0, Arterial Blood HCO3 20.2L, Arterial Blood Oxygen Saturation 96.4, Arterial Blood Base Excess -5.9L, Marlo Test Positive Height (Feet): 5 Height (Inches): 3.00 Weight (Pounds): 200 General Appearance: lethargic EENT: normal ENT inspection Neck: supple Cardiovascular: normal rate Respiratory/Chest: decreased breath sounds Abdomen: normal bowel sounds, non tender, soft Extremities: non-tender Darron Gentile MD Apr 20, 2019 11:59
--- NOTE | 2019-04-20 12:05 | Nephrology Progress Note ---
Assessment/Plan Problem List: (1) Renal failure (ARF), acute on chronic (2) Diabetic nephropathy (3) Sepsis (4) Pneumonia (5) Right hemiplegia (6) Anemia in chronic kidney disease (CKD) (7) Pulmonary hypertension Assessment Breathing problem persists Renal failure; - Pre Renal - ? Underlying Renal Anemia Pneumonia / respiratory failure ? aspiration prone Sepsis elevated Troponin UTI HyperGlycemia / DM Right Esvin HTN Plan K Phos IV as needed venofer Folate 24 H urine protein check 2.4 gram Fraga Hydrate BP and BS control urine studies slow hydrate kidney MAIKEL results noted: No [place] ? NGT vs PEG 2D echo Noted visualized except distal setum and inferiro wall hypokinesis Left ventricular ejection fraction estimated to be 55-60 %. avoid Nephrotoxics per orders Subjective ROS Limited/Unobtainable: Yes Objective Objective Last 24 Hour Vital Signs Date Time Temp Pulse Resp B/P (MAP) Pulse Ox O2 Delivery O2 Flow Rate FiO2 04/20/19 10:45 77 16 55 04/20/19 09:09 106 108/60 04/20/19 08:00 Bi-pap 04/20/19 08:00 35 04/20/19 07:00 86 17 103/64 (77) 100 04/20/19 06:45 82 17 100 Facial 35 04/20/19 06:45 Bi-Pap 04/20/19 06:00 87 18 124/57 (79) 100 04/20/19 05:29 86 18 100 Facial 35 04/20/19 05:00 80 20 109/66 (80) 100 04/20/19 04:00 98.7 87 20 120/80 (93) 100 04/20/19 04:00 35 04/20/19 04:00 Bi-pap 04/20/19 03:37 82 04/20/19 03:29 83 20 100 Facial 35 04/20/19 03:00 102 22 137/64 (88) 99 04/20/19 02:00 102 21 126/84 (98) 100 04/20/19 01:10 98 26 100 Facial 35 04/20/19 01:00 101 18 121/76 (91) 100 04/20/19 00:00 97.8 101 24 114/61 (78) 100 04/20/19 00:00 Bi-pap 04/20/19 00:00 35 04/19/19 23:10 88 23 100 Facial 35 04/19/19 23:03 104 04/19/19 23:00 92 18 114/63 (80) 100 04/19/19 22:00 97 20 115/54 (74) 98 04/19/19 21:00 97 20 105/65 (78) 99 04/19/19 20:51 95 24 95 Facial 35 04/19/19 20:33 98 107/58 04/19/19 20:00 35 04/19/19 20:00 98.7 95 23 107/42 (63) 99 04/19/19 20:00 Bi-pap 04/19/19 19:49 86 04/19/19 19:34 Bi-Pap 04/19/19 19:29 88 26 99 Facial 35 04/19/19 19:00 86 21 91/60 (70) 100 04/19/19 18:00 98 24 94/49 (64) 99 04/19/19 17:00 95 23 99/56 (70) 99 04/19/19 16:32 93 25 97 Facial 35 04/19/19 16:00 98.2 103 23 95/62 (73) 99 04/19/19 16:00 Bi-pap 04/19/19 16:00 35 04/19/19 16:00 106 04/19/19 15:01 105 26 98 Facial 35 04/19/19 15:00 100 23 93/42 (59) 100 04/19/19 14:00 94 21 115/69 (84) 99 04/19/19 13:29 95 20 99 Facial 35 04/19/19 13:00 94 22 115/63 (80) 100 04/19/19 12:04 104 118/67 Intake and Output 04/19/19 04/20/19 19:00 07:00 Intake Total 340 ml 940 ml Output Total 235 ml 275 ml Balance 105 ml 665 ml Free Water 50 ml IV Total 295 ml 650 ml Tube Feeding 45 ml 210 ml Other 30 ml Output Urine Total 235 ml 275 ml # Bowel Movements 2 1 Laboratory Tests 04/20/19 05:15: White Blood Count 12.1H, Red Blood Count 3.14L, Hemoglobin 8.6L, Hematocrit 27.8L, Mean Corpuscular Volume 89, Mean Corpuscular Hemoglobin 27.4, Mean Corpuscular Hemoglobin Concent 31.0L, Red Cell Distribution Width 15.1H, Platelet Count 195, Mean Platelet Volume 7.1, Neutrophils (%) (Auto) 84.2H, Lymphocytes (%) (Auto) 7.2L, Monocytes (%) (Auto) 7.2, Eosinophils (%) (Auto) 0.4, Basophils (%) (Auto) 1.1, Sodium Level 142, Potassium Level 4.3, Chloride Level 109H, Carbon Dioxide Level 17L, Anion Gap 17H, Blood Urea Nitrogen 41H, Creatinine 1.8H, Estimat Glomerular Filtration Rate , Glucose Level 142H, Calcium Level 8.9, Vancomycin Level Trough 20.7H 04/20/19 10:20: Arterial Blood pH 7.296L, Arterial Blood Partial Pressure CO2 42.3, Arterial Blood Partial Pressure O2 95.0, Arterial Blood HCO3 20.2L, Arterial Blood Oxygen Saturation 96.4, Arterial Blood Base Excess -5.9L, Marlo Test Positive Height (Feet): 5 Height (Inches): 3.00 Weight (Pounds): 200 General Appearance: mild distress EENT: other - BIPAP Cardiovascular: normal rate Respiratory/Chest: decreased breath sounds Abdomen: distended Wally Spivey MD Apr 20, 2019 12:05
--- NOTE | 2019-04-20 12:16 | General Progress Note ---
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 ICD Codes: E11.22 - Type 2 diabetes mellitus with diabetic chronic kidney disease; N18.4 - Chronic kidney disease, stage 4 (severe) SNOMED: 92195645, 356879088, 252399515 (7) Respiratory failure ICD Codes: J96.90 - Respiratory failure, unspecified, unspecified whether with hypoxia or hypercapnia SNOMED: 530343446 Status: unchanged Assessment/Plan: pt diet abx o2 pulm tx neuro psyc eval cbc bmp am ltach eval Subjective Constitutional: Reports: weakness Allergies: Coded Allergies: No Known Allergies (Unverified , 04/12/19) All Systems: reviewed and negative except above Subjective intubated ng in icu Objective Last 24 Hour Vital Signs Date Time Temp Pulse Resp B/P (MAP) Pulse Ox O2 Delivery O2 Flow Rate FiO2 04/20/19 10:45 77 16 55 04/20/19 09:09 106 108/60 04/20/19 08:00 Bi-pap 04/20/19 08:00 35 04/20/19 07:00 86 17 103/64 (77) 100 04/20/19 06:45 82 17 100 Facial 35 04/20/19 06:45 Bi-Pap 04/20/19 06:00 87 18 124/57 (79) 100 04/20/19 05:29 86 18 100 Facial 35 04/20/19 05:00 80 20 109/66 (80) 100 04/20/19 04:00 98.7 87 20 120/80 (93) 100 04/20/19 04:00 35 04/20/19 04:00 Bi-pap 04/20/19 03:37 82 6/25/19 03:29 83 20 100 Facial 35 04/20/19 03:00 102 22 137/64 (88) 99 04/20/19 02:00 102 21 126/84 (98) 100 04/20/19 01:10 98 26 100 Facial 35 04/20/19 01:00 101 18 121/76 (91) 100 04/20/19 00:00 97.8 101 24 114/61 (78) 100 04/20/19 00:00 Bi-pap 04/20/19 00:00 35 04/19/19 23:10 88 23 100 Facial 35 04/19/19 23:03 104 04/19/19 23:00 92 18 114/63 (80) 100 04/19/19 22:00 97 20 115/54 (74) 98 04/19/19 21:00 97 20 105/65 (78) 99 04/19/19 20:51 95 24 95 Facial 35 04/19/19 20:33 98 107/58 04/19/19 20:00 35 04/19/19 20:00 98.7 95 23 107/42 (63) 99 04/19/19 20:00 Bi-pap 04/19/19 19:49 86 04/19/19 19:34 Bi-Pap 04/19/19 19:29 88 26 99 Facial 35 04/19/19 19:00 86 21 91/60 (70) 100 04/19/19 18:00 98 24 94/49 (64) 99 04/19/19 17:00 95 23 99/56 (70) 99 04/19/19 16:32 93 25 97 Facial 35 04/19/19 16:00 98.2 103 23 95/62 (73) 99 04/19/19 16:00 Bi-pap 04/19/19 16:00 35 04/19/19 16:00 106 04/19/19 15:01 105 26 98 Facial 35 04/19/19 15:00 100 23 93/42 (59) 100 04/19/19 14:00 94 21 115/69 (84) 99 04/19/19 13:29 95 20 99 Facial 35 04/19/19 13:00 94 22 115/63 (80) 100 Intake and Output 04/19/19 04/20/19 19:00 07:00 Intake Total 340 ml 940 ml Output Total 235 ml 275 ml Balance 105 ml 665 ml Free Water 50 ml IV Total 295 ml 650 ml Tube Feeding 45 ml 210 ml Other 30 ml Output Urine Total 235 ml 275 ml # Bowel Movements 2 1 Laboratory Tests 04/20/19 05:15: White Blood Count 12.1H, Red Blood Count 3.14L, Hemoglobin 8.6L, Hematocrit 27.8L, Mean Corpuscular Volume 89, Mean Corpuscular Hemoglobin 27.4, Mean Corpuscular Hemoglobin Concent 31.0L, Red Cell Distribution Width 15.1H, Platelet Count 195, Mean Platelet Volume 7.1, Neutrophils (%) (Auto) 84.2H, Lymphocytes (%) (Auto) 7.2L, Monocytes (%) (Auto) 7.2, Eosinophils (%) (Auto) 0.4, Basophils (%) (Auto) 1.1, Sodium Level 142, Potassium Level 4.3, Chloride Level 109H, Carbon Dioxide Level 17L, Anion Gap 17H, Blood Urea Nitrogen 41H, Creatinine 1.8H, Estimat Glomerular Filtration Rate , Glucose Level 142H, Calcium Level 8.9, Vancomycin Level Trough 20.7H 04/20/19 10:20: Arterial Blood pH 7.296L, Arterial Blood Partial Pressure CO2 42.3, Arterial Blood Partial Pressure O2 95.0, Arterial Blood HCO3 20.2L, Arterial Blood Oxygen Saturation 96.4, Arterial Blood Base Excess -5.9L, Marlo Test Positive Height (Feet): 5 Height (Inches): 3.00 Weight (Pounds): 200 General Appearance: lethargic EENT: normal ENT inspection Neck: normal alignment Cardiovascular: normal peripheral pulses, normal rate, regular rhythm Respiratory/Chest: decreased breath sounds Abdomen: normal bowel sounds, non tender, soft Extremities: normal inspection Edema: no edema noted Arm (L), no edema noted Arm (R), no edema noted Leg (L), no edema noted Leg (R), no edema noted Pedal (L), no edema noted Pedal (R), no edema noted Generalized Neurologic: motor weakness Skin: normal pigmentation, warm/dry Jama Keating DO Apr 20, 2019 12:16
--- NOTE | 2019-04-20 12:30 | Diagnostic Imaging Report ---
Indication: Intubation Comparison: 04/19/2019 A single view chest radiograph was obtained. Findings: Endotracheal tube is about the 3 to 4 cm above the mita. There is less pulmonary edema compared to yesterday but with moderate residual edema. The heart remains enlarged. IMPRESSION: Endotracheal tube in good position
[2019-04-20] MEDS: Meropenem 1 GM in NS 55 ML IVPB SCH ×2 (12:52→22:34)
--- NOTE | 2019-04-20 13:17 | Infectious Diseases Prog Note ---
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 PNA Pulmonary edema -04/19 CXR: There is less pulmonary edema compared to yesterday but with moderate residual edema. -04/16 CXR: . Right perihilar and bilateral lower lobe pulmonary consolidation concerning for pneumonia.Small bilateral pleural effusions. CXR - B/L Infiltrates Low grade fevers; improving WBCs up to 25; improving 04/16 Sp Cx - C. alb; 04/19 sp cx NTD -BCx NTD Widened mediastinum - right sided aortic arch CXR - Apparent upper mediastinal widening. Possibly due to ectatic vasculature and body habitus, but upper mediastinal mass also possible. Correlate with any prior adiographs and may be available, consider CT for further evaluation if clinically indicated CT 04/13/19 - Right-sided aortic arch, presumably accounting for the apparent upper mediastinal widening demonstrated on recent plain radiograph. No evidence of upper mediastinal mass. Extensive bilateral lower lobe consolidation , likely pneumonia, less extensive left upper lobe consolidation. 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 We will continue to follow the patient during this hospitalization. Subjective Allergies: Coded Allergies: No Known Allergies (Unverified , 04/12/19) Subjective afebrile >36hrs wbc improved Objective Vital Signs Last 24 Hour Vital Signs Date Time Temp Pulse Resp B/P (MAP) Pulse Ox O2 Delivery O2 Flow Rate FiO2 04/20/19 12:00 86 17 96/54 (68) 100 04/20/19 11:00 78 17 89/49 (62) 100 04/20/19 10:45 77 16 55 04/20/19 10:00 89 17 102/66 (78) 100 04/20/19 09:09 106 108/60 04/20/19 09:00 91 21 108/60 (76) 100 04/20/19 08:00 Bi-pap 04/20/19 08:00 35 04/20/19 08:00 87 21 107/64 (78) 100 04/20/19 07:00 86 17 103/64 (77) 100 04/20/19 06:45 82 17 100 Facial 35 04/20/19 06:45 Bi-Pap 04/20/19 06:00 87 18 124/57 (79) 100 04/20/19 05:29 86 18 100 Facial 35 04/20/19 05:00 80 20 109/66 (80) 100 04/20/19 04:00 98.7 87 20 120/80 (93) 100 04/20/19 04:00 35 04/20/19 04:00 Bi-pap 04/20/19 03:37 82 04/20/19 03:29 83 20 100 Facial 35 04/20/19 03:00 102 22 137/64 (88) 99 04/20/19 02:00 102 21 126/84 (98) 100 04/20/19 01:10 98 26 100 Facial 35 04/20/19 01:00 101 18 121/76 (91) 100 04/20/19 00:00 97.8 101 24 114/61 (78) 100 04/20/19 00:00 Bi-pap 04/20/19 00:00 35 04/19/19 23:10 88 23 100 Facial 35 04/19/19 23:03 104 04/19/19 23:00 92 18 114/63 (80) 100 04/19/19 22:00 97 20 115/54 (74) 98 04/19/19 21:00 97 20 105/65 (78) 99 04/19/19 20:51 95 24 95 Facial 35 04/19/19 20:33 98 107/58 04/19/19 20:00 35 04/19/19 20:00 98.7 95 23 107/42 (63) 99 04/19/19 20:00 Bi-pap 04/19/19 19:49 86 04/19/19 19:34 Bi-Pap 04/19/19 19:29 88 26 99 Facial 35 04/19/19 19:00 86 21 91/60 (70) 100 04/19/19 18:00 98 24 94/49 (64) 99 04/19/19 17:00 95 23 99/56 (70) 99 04/19/19 16:32 93 25 97 Facial 35 04/19/19 16:00 98.2 103 23 95/62 (73) 99 04/19/19 16:00 Bi-pap 04/19/19 16:00 35 04/19/19 16:00 106 04/19/19 15:01 105 26 98 Facial 35 04/19/19 15:00 100 23 93/42 (59) 100 04/19/19 14:00 94 21 115/69 (84) 99 04/19/19 13:29 95 20 99 Facial 35 Height (Feet): 5 Height (Inches): 3.00 Weight (Pounds): 200 Objective Gen: Awake and talking HEENT: NCAT, MMM, EOMI LUNGS: CTAB, No W CARDS: RRR, S1, S2, No M/R/G, ABD: Soft, NT, ND Microbiology Date/Time Source Procedure Growth Status 04/19/19 14:00 Sputum Induced Gram Stain Pending Resulted 04/19/19 14:00 Sputum Induced Sputum Culture - Preliminary NO GROWTH Resulted Laboratory Tests Test 04/20/19 05:15 04/20/19 10:20 04/20/19 13:05 White Blood Count 12.1 K/UL (4.8-10.8) H Red Blood Count 3.14 M/UL (4.20-5.40) L Hemoglobin 8.6 G/DL (12.0-16.0) L Hematocrit 27.8 % (37.0-47.0) L Mean Corpuscular Volume 89 FL (80-99) Mean Corpuscular Hemoglobin 27.4 PG (27.0-31.0) Mean Corpuscular Hemoglobin Concent 31.0 G/DL (32.0-36.0) L Red Cell Distribution Width 15.1 % (11.6-14.8) H Platelet Count 195 K/UL (150-450) Mean Platelet Volume 7.1 FL (6.5-10.1) Neutrophils (%) (Auto) 84.2 % (45.0-75.0) H Lymphocytes (%) (Auto) 7.2 % (20.0-45.0) L Monocytes (%) (Auto) 7.2 % (1.0-10.0) Eosinophils (%) (Auto) 0.4 % (0.0-3.0) Basophils (%) (Auto) 1.1 % (0.0-2.0) Sodium Level 142 MMOL/L (136-145) Potassium Level 4.3 MMOL/L (3.5-5.1) Chloride Level 109 MMOL/L (98-107) H Carbon Dioxide Level 17 MMOL/L (21-32) L Anion Gap 17 mmol/L (5-15) H Blood Urea Nitrogen 41 mg/dL (7-18) H Creatinine 1.8 MG/DL (0.55-1.30) H Estimat Glomerular Filtration Rate mL/min (>60) Glucose Level 142 MG/DL (74-106) H Calcium Level 8.9 MG/DL (8.5-10.1) Vancomycin Level Trough 20.7 ug/mL (5.0-12.0) H Arterial Blood pH 7.296 (7.350-7.450) 7.436 (7.350-7.450) Arterial Blood Partial Pressure CO2 42.3 mmHg (35.0-45.0) 30.1 mmHg (35.0-45.0) L Arterial Blood Partial Pressure O2 95.0 mmHg (75.0-100.0) 143.6 mmHg (75.0-100.0) H Arterial Blood HCO3 20.2 mmol/L (22.0-26.0) L 19.8 mmol/L (22.0-26.0) L Arterial Blood Oxygen Saturation 96.4 % (95-100) 98.8 % (95-100) Arterial Blood Base Excess -5.9 (-2-2) L -3.7 (-2-2) L Marlo Test Positive Positive Current Medications Medications (Trade) Dose Ordered Sig/Kenisha Route PRN Reason Start Time Stop Time Status Last Admin Dose Admin Acetaminophen (Tylenol) 650 mg Q4H PRN ORAL FEVER 04/17/19 12:36 05/17/19 12:35 Acetaminophen (Tylenol) 650 mg Q4H PRN RECTAL Fever 04/17/19 12:36 05/17/19 12:35 04/18/19 08:53 Albuterol/ Ipratropium (Albuterol/ Ipratropium) 3 ml Q4H PRN HHN Shortness of Breath 04/17/19 12:36 04/22/19 12:35 04/17/19 17:44 Chlorhexidine Gluconate (Izzy-Hex 2%) 1 applic DAILY@2000 TOPIC 04/20/19 20:00 05/20/19 19:59 Dextrose (Dextrose 50%) 25 ml Q30M PRN IV Hypoglycemia 04/17/19 12:45 05/12/19 19:44 Dextrose (Dextrose 50%) 50 ml Q30M PRN IV Hypoglycemia 04/17/19 12:45 05/12/19 19:44 Dextrose/ Electrolytes 1,000 ml @ 30 mls/hr Q24H IV 04/19/19 11:00 05/19/19 10:59 04/20/19 11:00 Epoetin Bandar (Epoetin Bandar-EPBX(NON ESRD)) 10,000 unit FRI-FRI-FRI SUBQ 04/19/19 21:00 05/16/19 20:59 04/19/19 20:34 Folic Acid (Folate) 1 mg DAILY ORAL 04/19/19 09:00 05/19/19 08:59 04/20/19 09:09 Heparin Sodium/ Sodium Chloride (Heparin 1000 units/500ml Premix) 1,000 unit PRN PRN IV picc line placement 04/20/19 10:30 04/22/19 10:29 Hydralazine HCl (Apresoline) 10 mg Q2H PRN IV For High Blood Pressure 04/17/19 12:36 05/17/19 12:35 Insulin Aspart (NovoLOG) BEFORE MEALS AND HS SUBQ 04/17/19 16:30 05/12/19 20:59 04/20/19 12:52 Lidocaine HCl (Xylocaine 1% 30ml) 30 ml PRN PRN INJ picc line placement 04/20/19 10:30 04/22/19 10:29 Lorazepam (Ativan 2mg/ml 1ml) 2 mg Q4H PRN IV For Anxiety 04/20/19 11:00 04/27/19 10:59 Lorazepam (Ativan) 0.5 mg Q6H PRN ORAL For Anxiety 04/17/19 12:37 04/24/19 12:36 Meropenem 1 gm/ Sodium Chloride 55 ml @ 110 mls/hr Q12HR@1100,2300 IVPB 04/18/19 11:00 04/23/19 10:59 04/20/19 12:52 Metoprolol Tartrate (Lopressor) 25 mg Q12HR NG 04/19/19 21:00 05/19/19 20:59 04/20/19 09:09 Morphine Sulfate (Morphine Sulfate) 4 mg Q4H PRN IVP For Pain 04/20/19 11:00 04/27/19 10:59 Ondansetron HCl (Zofran) 4 mg Q6H PRN IVP Nausea & Vomiting 04/17/19 12:37 05/17/19 12:36 Polyethylene Glycol (Miralax) 17 gm DAILYPRN PRN ORAL Constipation 04/17/19 12:37 05/17/19 12:36 Vancomycin HCl (Vanco rx to dose) 1 ea DAILY PRN MISC Per rx protocol 04/18/19 09:00 05/12/19 17:29 Vancomycin HCl 1 gm/Dextrose 275 ml @ 183.708 mls/hr Q48H IVPB 04/22/19 09:00 04/27/19 08:59 Cora Baer M.D. Apr 20, 2019 13:17
--- NOTE | 2019-04-20 13:30 | NUR ---
NURSE NOTES: SUZIE PICC inserted by radiology. Line, patent and asymptomatic. XR ordered, need orders for OK to use PICC.
--- NOTE | 2019-04-20 14:37 | NUR ---
NURSE NOTES: Obtained consent from Son who is at bedside for PEG scheduled tomorrow.
--- NOTE | 2019-04-20 14:42 | Diagnostic Imaging Report ---
Indication: intermediate card tender venous access Findings: After the indications, procedure, risks, complications, and alternatives of the procedure were explained, written informed consent was obtained. The left upper extremity was prepped with alcohol. All elements of maximal sterile barrier technique were followed including usage of a cap, mask, sterile gown, sterile gloves, hand hygiene and a large sterile sheet. Sonographic evaluation of the upper extremity was performed demonstrating a patent and compressible basilic vein. Access was obtained under real-time ultrasound guidance (with utilization of sterile gel and sterile probe cover) and digital image was saved and archived. An .018 wire was introduced. Needle exchanged for a 5 Italian peel-away sheath. Measurements were obtained. A 5 Italian dual-lumen Power PICC line catheter was cut to 43 cm and introduced over the wire. Peel-away sheath and wire were removed.Catheter was secured to the skin using 2-0 Prolene suture. Both ports aspirate and flush easily. Post procedure chest x-ray demonstrates good position of the PICC line catheter within the SVC. Impression: Successful placement of an upper extremity PICC line catheter
--- NOTE | 2019-04-20 15:14 | NUR ---
*-* INSURANCE *-* UPDATED CLINICALS HAVE BEEN FAXED TO: [facility] white# [id number] P: [phone] F: [phone] (FAX CLINICALS)
--- NOTE | 2019-04-20 15:30 | NUR ---
NURSE NOTES: PICC placed in left upper arm, confirmed placement with CXR and received orders for O.K. to use PICC line. Flushed with good blood return.
--- NOTE | 2019-04-20 15:41 | NUR ---
Vt changed to 600 due to stating the Vt to be 500 but putting the order in as 600. Addendum: 04/20/19 at 1542 by AUBREY SMILEY RT Amended: Links added.
--- NOTE | 2019-04-20 16:56 | Hematology/Onc Progress Note ---
Assessment/Plan Assessment/Plan ASSESSMENT AND RECOMMENDATIONS # Anemia of chronic disease due to underlying chronic medical issues, multifactorial --> Anemia workup has been ordered and reviewed. --> Ferritin 274, iron 6, tibc 143 --> No evidence of hemolysis is noted, peripheral smear has been reviewed. --> Hgb goal >7. Transfuse prn. --> Epogen or iron at this time is not particularly indicated --> Medications have been reviewed --> low threshold for gi evaluation in case has occult + --> Hgb trend: 9.4-->9.8-->8.6 # Lung mass. First noted on CXR. --> Ct chest has been ordered and reviewed. CT reveals no mass. --> hold off on any tumor marker testing --> as per id and pulm mino, appreciate RECS # Leukocytosis/elevated white blood cell count, unspecified likely related to underlying sepsis due to pna confirmed by CT chest and CXR --> have reviewed peripheral smear and bandemia/neutrophilia noted --> continue antibiotics if they have been started by ID team --> monitor for resolution --> trend 25-->20-->15k-->16.3-->14.3-->12.1 # Respiratory distress. BiPAP per Pulmonary. # Sepsis d/t pna and uti. --> Antibiotics per Infectious Disease. # Renal failure. Nephro is following, appreciate recs # Elevated troponin. Recs per cardiology # Malnutrition. --> Dietary to follow. The time this note is entered does not reflect the time the patient was examined. I greatly appreciate the consultation. Subjective Allergies: Coded Allergies: No Known Allergies (Unverified , 04/12/19) Subjective 04/15: no events reported, no f/c, on abx, seen by id, pulm, hgb remains stable 04/16: Pt resting in bed, nonverbal. No distress noted. WBC remains elevated. Plan to transfer to [facility]. 04/18: Pt in ICU. CXR yesterday shows pna. H/H stable. On BiPAP. 04/20: Pt no signs of distress. ET in place confirmed by CXR Objective Objective Current Medications Medications (Trade) Dose Ordered Sig/Kenisha Route PRN Reason Start Time Stop Time Status Last Admin Dose Admin Acetaminophen (Tylenol) 650 mg Q4H PRN ORAL FEVER 04/17/19 12:36 05/17/19 12:35 Acetaminophen (Tylenol) 650 mg Q4H PRN RECTAL Fever 04/17/19 12:36 05/17/19 12:35 04/18/19 08:53 Albuterol/ Ipratropium (Albuterol/ Ipratropium) 3 ml Q4H PRN HHN Shortness of Breath 04/17/19 12:36 04/22/19 12:35 04/17/19 17:44 Chlorhexidine Gluconate (Izzy-Hex 2%) 1 applic DAILY@2000 TOPIC 04/20/19 20:00 05/20/19 19:59 Dextrose (Dextrose 50%) 25 ml Q30M PRN IV Hypoglycemia 04/17/19 12:45 05/12/19 19:44 Dextrose (Dextrose 50%) 50 ml Q30M PRN IV Hypoglycemia 04/17/19 12:45 05/12/19 19:44 Dextrose/ Electrolytes 1,000 ml @ 30 mls/hr Q24H IV 04/19/19 11:00 05/19/19 10:59 04/20/19 11:00 Epoetin Bandar (Epoetin Bandar-EPBX(NON ESRD)) 10,000 unit FRI-FRI-FRI SUBQ 04/19/19 21:00 05/16/19 20:59 04/19/19 20:34 Folic Acid (Folate) 1 mg DAILY ORAL 04/19/19 09:00 05/19/19 08:59 04/20/19 09:09 Heparin Sodium/ Sodium Chloride (Heparin 1000 units/500ml Premix) 1,000 unit PRN PRN IV picc line placement 04/20/19 10:30 04/22/19 10:29 Hydralazine HCl (Apresoline) 10 mg Q2H PRN IV For High Blood Pressure 04/17/19 12:36 05/17/19 12:35 Insulin Aspart (NovoLOG) BEFORE MEALS AND HS SUBQ 04/17/19 16:30 05/12/19 20:59 04/20/19 12:52 Lidocaine HCl (Xylocaine 1% 30ml) 30 ml PRN PRN INJ picc line placement 04/20/19 10:30 04/22/19 10:29 Lorazepam (Ativan 2mg/ml 1ml) 2 mg Q4H PRN IV For Anxiety 04/20/19 11:00 04/27/19 10:59 Lorazepam (Ativan) 0.5 mg Q6H PRN ORAL For Anxiety 04/17/19 12:37 04/24/19 12:36 Meropenem 1 gm/ Sodium Chloride 55 ml @ 110 mls/hr Q12HR@1100,2300 IVPB 04/18/19 11:00 04/23/19 10:59 04/20/19 12:52 Metoprolol Tartrate (Lopressor) 25 mg Q12HR NG 04/19/19 21:00 05/19/19 20:59 04/20/19 09:09 Morphine Sulfate (Morphine Sulfate) 4 mg Q4H PRN IVP For Pain 04/20/19 11:00 04/27/19 10:59 Ondansetron HCl (Zofran) 4 mg Q6H PRN IVP Nausea & Vomiting 04/17/19 12:37 05/17/19 12:36 Polyethylene Glycol (Miralax) 17 gm DAILYPRN PRN ORAL Constipation 04/17/19 12:37 05/17/19 12:36 Last 24 Hour Vital Signs Date Time Temp Pulse Resp B/P (MAP) Pulse Ox O2 Delivery O2 Flow Rate FiO2 04/20/19 16:00 Mechanical Ventilator 04/20/19 16:00 45 04/20/19 15:39 81 16 55 04/20/19 15:00 82 17 93/59 (70) 100 04/20/19 14:00 79 17 91/58 (69) 100 04/20/19 13:05 82 16 55 04/20/19 13:00 98.9 80 17 96/55 (69) 100 04/20/19 12:00 45 04/20/19 12:00 Mechanical Ventilator 04/20/19 12:00 86 17 96/54 (68) 100 04/20/19 12:00 80 04/20/19 11:00 78 17 89/49 (62) 100 04/20/19 10:45 77 16 55 04/20/19 10:00 89 17 102/66 (78) 100 04/20/19 09:09 106 108/60 04/20/19 09:00 91 21 108/60 (76) 100 04/20/19 08:00 Bi-pap 04/20/19 08:00 35 04/20/19 08:00 74 04/20/19 08:00 87 21 107/64 (78) 100 04/20/19 07:00 86 17 103/64 (77) 100 04/20/19 06:45 82 17 100 Facial 35 04/20/19 06:45 Bi-Pap 04/20/19 06:00 87 18 124/57 (79) 100 04/20/19 05:29 86 18 100 Facial 35 04/20/19 05:00 80 20 109/66 (80) 100 04/20/19 04:00 98.7 87 20 120/80 (93) 100 04/20/19 04:00 35 04/20/19 04:00 Bi-pap 04/20/19 03:37 82 04/20/19 03:29 83 20 100 Facial 35 04/20/19 03:00 102 22 137/64 (88) 99 04/20/19 02:00 102 21 126/84 (98) 100 04/20/19 01:10 98 26 100 Facial 35 04/20/19 01:00 101 18 121/76 (91) 100 04/20/19 00:00 97.8 101 24 114/61 (78) 100 04/20/19 00:00 Bi-pap 04/20/19 00:00 35 04/19/19 23:10 88 23 100 Facial 35 04/19/19 23:03 104 04/19/19 23:00 92 18 114/63 (80) 100 04/19/19 22:00 97 20 115/54 (74) 98 04/19/19 21:00 97 20 105/65 (78) 99 04/19/19 20:51 95 24 95 Facial 35 04/19/19 20:33 98 107/58 04/19/19 20:00 35 04/19/19 20:00 98.7 95 23 107/42 (63) 99 04/19/19 20:00 Bi-pap 04/19/19 19:49 86 04/19/19 19:34 Bi-Pap 04/19/19 19:29 88 26 99 Facial 35 04/19/19 19:00 86 21 91/60 (70) 100 04/19/19 18:00 98 24 94/49 (64) 99 04/19/19 17:00 95 23 99/56 (70) 99 04/19/19 16:32 93 25 97 Facial 35 04/19/19 16:00 98.2 103 23 95/62 (73) 99 04/19/19 16:00 Bi-pap 04/19/19 16:00 35 04/19/19 16:00 106 04/19/19 15:01 105 26 98 Facial 35 04/19/19 15:00 100 23 93/42 (59) 100 04/19/19 14:00 94 21 115/69 (84) 99 04/19/19 13:29 95 20 99 Facial 35 04/19/19 13:00 94 22 115/63 (80) 100 04/19/19 12:04 104 118/67 04/19/19 12:00 35 04/19/19 12:00 99.2 102 22 98/64 (75) 100 04/19/19 12:00 Bi-pap 04/19/19 12:00 99 04/19/19 11:20 102 24 100 Facial 35 04/19/19 11:00 104 23 118/67 (84) 99 04/19/19 10:00 123 27 118/98 (105) 98 04/19/19 09:00 120 31 116/66 (83) 95 04/19/19 08:42 131 29 97 Facial 35 04/19/19 08:00 Bi-pap 04/19/19 08:00 35 04/19/19 08:00 107 04/19/19 08:00 99.2 112 24 134/80 (98) 99 04/19/19 07:20 Bi-Pap 04/19/19 07:17 97 26 100 Facial 35 04/19/19 07:00 92 24 137/82 (100) 100 04/19/19 06:00 103 23 138/83 (101) 100 04/19/19 05:53 108 143/66 04/19/19 05:04 99 28 99 Full Face 35 04/19/19 05:00 109 26 140/74 (96) 98 04/19/19 04:01 108 04/19/19 04:00 35 04/19/19 04:00 99.2 111 26 143/72 (95) 96 04/19/19 04:00 Bi-pap 04/19/19 03:05 107 24 98 Full Face 35 04/19/19 03:00 110 29 130/62 (84) 97 04/19/19 02:00 103 29 117/56 (76) 99 04/19/19 01:27 116 27 97 Full Face 35 04/19/19 01:00 106 27 122/53 (76) 98 04/19/19 00:00 Bi-pap 04/19/19 00:00 99.4 105 33 128/58 (81) 98 04/19/19 00:00 105 04/19/19 00:00 35 04/18/19 23:38 103 125/53 04/18/19 23:19 99 23 99 Full Face 35 04/18/19 23:00 94 26 125/53 (77) 100 04/18/19 22:00 102 25 137/53 (81) 99 04/18/19 21:16 100 20 99 Full Face 35 04/18/19 21:00 100 26 115/51 (72) 99 04/18/19 20:00 35 04/18/19 20:00 Bi-pap 04/18/19 20:00 98 04/18/19 20:00 100.0 98 26 138/72 (94) 99 04/18/19 19:00 99 25 144/75 (98) 99 04/18/19 18:59 110 28 98 Full Face 35 04/18/19 18:59 98 Bi-Pap 35 04/18/19 18:00 97 25 137/72 (93) 98 04/18/19 17:19 105 25 100 Full Face 35 04/18/19 17:09 101 140/85 04/18/19 17:00 101 23 140/85 (103) 100 Intake and Output 04/19/19 04/20/19 19:00 07:00 Intake Total 340 ml 970 ml Output Total 235 ml 275 ml Balance 105 ml 695 ml Free Water 50 ml IV Total 295 ml 680 ml Tube Feeding 45 ml 210 ml Other 30 ml Output Urine Total 235 ml 275 ml # Bowel Movements 2 1 Labs Test 04/18/19 05:15 04/18/19 09:32 04/18/19 11:30 04/19/19 03:45 White Blood Count 14.3 K/UL (4.8-10.8) 12.6 K/UL (4.8-10.8) Red Blood Count 3.59 M/UL (4.20-5.40) 3.05 M/UL (4.20-5.40) Hemoglobin 9.8 G/DL (12.0-16.0) 8.6 G/DL (12.0-16.0) Hematocrit 31.1 % (37.0-47.0) 26.2 % (37.0-47.0) Mean Corpuscular Volume 87 FL (80-99) 86 FL (80-99) Mean Corpuscular Hemoglobin 27.4 PG (27.0-31.0) 28.1 PG (27.0-31.0) Mean Corpuscular Hemoglobin Concent 31.5 G/DL (32.0-36.0) 32.7 G/DL (32.0-36.0) Red Cell Distribution Width 14.4 % (11.6-14.8) 14.6 % (11.6-14.8) Platelet Count 202 K/UL (150-450) 205 K/UL (150-450) Mean Platelet Volume 7.8 FL (6.5-10.1) 8.4 FL (6.5-10.1) Neutrophils (%) (Auto) 83.5 % (45.0-75.0) % (45.0-75.0) Lymphocytes (%) (Auto) 10.3 % (20.0-45.0) % (20.0-45.0) Monocytes (%) (Auto) 5.6 % (1.0-10.0) % (1.0-10.0) Eosinophils (%) (Auto) 0.3 % (0.0-3.0) % (0.0-3.0) Basophils (%) (Auto) 0.3 % (0.0-2.0) % (0.0-2.0) Prothrombin Time 13.6 SEC (9.30-11.50) Prothromb Time International Ratio 1.3 (0.9-1.1) Activated Partial Thromboplast Time 34 SEC (23-33) Sodium Level 141 MMOL/L (136-145) 139 MMOL/L (136-145) Potassium Level 3.6 MMOL/L (3.5-5.1) 3.5 MMOL/L (3.5-5.1) Chloride Level 107 MMOL/L (98-107) 107 MMOL/L (98-107) Carbon Dioxide Level 18 MMOL/L (21-32) 19 MMOL/L (21-32) Anion Gap 16 mmol/L (5-15) 14 mmol/L (5-15) Blood Urea Nitrogen 33 mg/dL (7-18) 34 mg/dL (7-18) Creatinine 1.5 MG/DL (0.55-1.30) 1.5 MG/DL (0.55-1.30) Estimat Glomerular Filtration Rate mL/min (>60) mL/min (>60) Glucose Level 163 MG/DL (74-106) 118 MG/DL (74-106) Calcium Level 9.2 MG/DL (8.5-10.1) 8.6 MG/DL (8.5-10.1) Phosphorus Level 3.2 MG/DL (2.5-4.9) 3.2 MG/DL (2.5-4.9) Magnesium Level 1.8 MG/DL (1.8-2.4) 1.6 MG/DL (1.8-2.4) Total Bilirubin 0.4 MG/DL (0.2-1.0) 0.3 MG/DL (0.2-1.0) Aspartate Amino Transf (AST/SGOT) 19 U/L (15-37) 25 U/L (15-37) Alanine Aminotransferase (ALT/SGPT) 10 U/L (12-78) 7 U/L (12-78) Alkaline Phosphatase 91 U/L (46-116) 80 U/L (46-116) Total Protein 7.3 G/DL (6.4-8.2) 6.3 G/DL (6.4-8.2) Albumin 1.3 G/DL (3.4-5.0) 1.1 G/DL (3.4-5.0) Globulin 6.0 g/dL 5.2 g/dL Albumin/Globulin Ratio 0.2 (1.0-2.7) 0.2 (1.0-2.7) Urine Legionella Antigen Negative (Negative) Arterial Blood pH 7.333 (7.350-7.450) Arterial Blood Partial Pressure CO2 35.7 mmHg (35.0-45.0) Arterial Blood Partial Pressure O2 101.2 mmHg (75.0-100.0) Arterial Blood HCO3 18.5 mmol/L (22.0-26.0) Arterial Blood Oxygen Saturation 97.3 % (95-100) Arterial Blood Base Excess -6.7 (-2-2) Marlo Test Positive Test 04/19/19 07:40 04/20/19 05:15 04/20/19 10:20 04/20/19 13:05 Arterial Blood pH 7.340 (7.350-7.450) 7.296 (7.350-7.450) 7.436 (7.350-7.450) Arterial Blood Partial Pressure CO2 32.4 mmHg (35.0-45.0) 42.3 mmHg (35.0-45.0) 30.1 mmHg (35.0-45.0) Arterial Blood Partial Pressure O2 97.4 mmHg (75.0-100.0) 95.0 mmHg (75.0-100.0) 143.6 mmHg (75.0-100.0) Arterial Blood HCO3 17.1 mmol/L (22.0-26.0) 20.2 mmol/L (22.0-26.0) 19.8 mmol/L (22.0-26.0) Arterial Blood Oxygen Saturation 97.0 % (95-100) 96.4 % (95-100) 98.8 % (95-100) Arterial Blood Base Excess -7.8 (-2-2) -5.9 (-2-2) -3.7 (-2-2) Marlo Test Positive Positive Positive White Blood Count 12.1 K/UL (4.8-10.8) Red Blood Count 3.14 M/UL (4.20-5.40) Hemoglobin 8.6 G/DL (12.0-16.0) Hematocrit 27.8 % (37.0-47.0) Mean Corpuscular Volume 89 FL (80-99) Mean Corpuscular Hemoglobin 27.4 PG (27.0-31.0) Mean Corpuscular Hemoglobin Concent 31.0 G/DL (32.0-36.0) Red Cell Distribution Width 15.1 % (11.6-14.8) Platelet Count 195 K/UL (150-450) Mean Platelet Volume 7.1 FL (6.5-10.1) Neutrophils (%) (Auto) 84.2 % (45.0-75.0) Lymphocytes (%) (Auto) 7.2 % (20.0-45.0) Monocytes (%) (Auto) 7.2 % (1.0-10.0) Eosinophils (%) (Auto) 0.4 % (0.0-3.0) Basophils (%) (Auto) 1.1 % (0.0-2.0) Sodium Level 142 MMOL/L (136-145) Potassium Level 4.3 MMOL/L (3.5-5.1) Chloride Level 109 MMOL/L (98-107) Carbon Dioxide Level 17 MMOL/L (21-32) Anion Gap 17 mmol/L (5-15) Blood Urea Nitrogen 41 mg/dL (7-18) Creatinine 1.8 MG/DL (0.55-1.30) Estimat Glomerular Filtration Rate mL/min (>60) Glucose Level 142 MG/DL (74-106) Calcium Level 8.9 MG/DL (8.5-10.1) Vancomycin Level Trough 20.7 ug/mL (5.0-12.0) Height (Feet): 5 Height (Inches): 3.00 Weight (Pounds): 200 Objective PHYSICAL EXAMINATION: GENERAL: BiPAP in place, sleeping in bed, slight short of breath. VITAL SIGNS: Have been reviewed CARDIOVASCULAR: No murmur. LUNGS: Poor exchange. TRACH++ ABDOMEN: Bowel sounds distant. EXTREMITIES: No cyanosis, clubbing, or edema. NEUROLOGIC: Patient is flaccid in bed, probably sedated. Steven Norton MD Apr 20, 2019 16:56
--- NOTE | 2019-04-20 17:00 | NUR ---
NURSE NOTES: Turned and repositioned, kept dry and clean. Blood sugar 164 mg/dl, 3 units given per sliding scale.
--- NOTE | 2019-04-20 17:58 | Emergency Room Report ---
Physical Exam Called to ICU to intubate patient. Patient on BIPAP with increased lethargy. Last 24 Hour Vital Signs Date Time Temp Pulse Resp B/P (MAP) Pulse Ox O2 Delivery O2 Flow Rate FiO2 04/20/19 17:20 86 16 55 04/20/19 16:00 Mechanical Ventilator 04/20/19 16:00 45 04/20/19 15:39 81 16 55 04/20/19 15:00 82 17 93/59 (70) 100 04/20/19 14:00 79 17 91/58 (69) 100 04/20/19 13:05 82 16 55 04/20/19 13:00 98.9 80 17 96/55 (69) 100 04/20/19 12:00 45 04/20/19 12:00 Mechanical Ventilator 04/20/19 12:00 86 17 96/54 (68) 100 04/20/19 12:00 80 04/20/19 11:00 78 17 89/49 (62) 100 04/20/19 10:45 77 16 55 04/20/19 10:00 89 17 102/66 (78) 100 04/20/19 09:09 106 108/60 04/20/19 09:00 91 21 108/60 (76) 100 04/20/19 08:00 Bi-pap 04/20/19 08:00 35 04/20/19 08:00 74 04/20/19 08:00 87 21 107/64 (78) 100 04/20/19 07:00 86 17 103/64 (77) 100 04/20/19 06:45 82 17 100 Facial 35 04/20/19 06:45 Bi-Pap 04/20/19 06:00 87 18 124/57 (79) 100 04/20/19 05:29 86 18 100 Facial 35 04/20/19 05:00 80 20 109/66 (80) 100 04/20/19 04:00 98.7 87 20 120/80 (93) 100 04/20/19 04:00 35 04/20/19 04:00 Bi-pap 04/20/19 03:37 82 04/20/19 03:29 83 20 100 Facial 35 04/20/19 03:00 102 22 137/64 (88) 99 04/20/19 02:00 102 21 126/84 (98) 100 04/20/19 01:10 98 26 100 Facial 35 04/20/19 01:00 101 18 121/76 (91) 100 04/20/19 00:00 97.8 101 24 114/61 (78) 100 04/20/19 00:00 Bi-pap 04/20/19 00:00 35 04/19/19 23:10 88 23 100 Facial 35 04/19/19 23:03 104 04/19/19 23:00 92 18 114/63 (80) 100 04/19/19 22:00 97 20 115/54 (74) 98 04/19/19 21:00 97 20 105/65 (78) 99 04/19/19 20:51 95 24 95 Facial 35 04/19/19 20:33 98 107/58 04/19/19 20:00 35 04/19/19 20:00 98.7 95 23 107/42 (63) 99 04/19/19 20:00 Bi-pap 04/19/19 19:49 86 04/19/19 19:34 Bi-Pap 04/19/19 19:29 88 26 99 Facial 35 04/19/19 19:00 86 21 91/60 (70) 100 04/19/19 18:00 98 24 94/49 (64) 99 Sp02 EP Interpretation: reviewed, abnormal General Appearance: lethargic Eyes: bilateral eye PERRL, bilateral eye other - exopthalmous ENT: moist mucus membranes, other - poor dentition Neck: supple Respiratory: decreased breath sounds, other - poor tidal volume Cardiovascular #1: regular rate, rhythm, edema Cardiovascular #2: 2+ femoral (R) Gastrointestinal: decreased bowel sounds, overweight Musculoskeletal: other - R flaccid Neurologic: motor weakness - R side Psychiatric: other - lethargic, min response to pain Skin: cyanosis Intubation Intubation : Consent: Emergent Intubation Method: orotracheal Tube Size (cm): 7.5 - 23 lower teeth Medications: Etomidate - 7 mg Breath Sounds after Intubation: equal Intubation Complications: no complications Post Intubation Xray: Yes Attempts: One Patient Tolerated: Well Complications: None Medical Decision Making Diagnostic Impression: Primary Impression: Respiratory failure Qualified Codes: J96.02 - Acute respiratory failure with hypercapnia Additional Impressions: Pneumonia Qualified Codes: J18.9 - Pneumonia, unspecified organism History of CVA (cerebrovascular accident) ER Course Patient with pneumonia failing BIPAP. Intubated. Thick secretions. CXR, versed drip, vent settings ordered by Dr. Springer. CXR with good tube placement, bilat infiltrates. Prognosis guarded. Laboratory Tests Test 04/19/19 03:45 04/19/19 07:40 04/20/19 05:15 04/20/19 10:20 White Blood Count 12.6 K/UL (4.8-10.8) H 12.1 K/UL (4.8-10.8) H Red Blood Count 3.05 M/UL (4.20-5.40) L 3.14 M/UL (4.20-5.40) L Hemoglobin 8.6 G/DL (12.0-16.0) L 8.6 G/DL (12.0-16.0) L Hematocrit 26.2 % (37.0-47.0) L 27.8 % (37.0-47.0) L Mean Corpuscular Volume 86 FL (80-99) 89 FL (80-99) Mean Corpuscular Hemoglobin 28.1 PG (27.0-31.0) 27.4 PG (27.0-31.0) Mean Corpuscular Hemoglobin Concent 32.7 G/DL (32.0-36.0) 31.0 G/DL (32.0-36.0) L Red Cell Distribution Width 14.6 % (11.6-14.8) 15.1 % (11.6-14.8) H Platelet Count 205 K/UL (150-450) 195 K/UL (150-450) Mean Platelet Volume 8.4 FL (6.5-10.1) 7.1 FL (6.5-10.1) Neutrophils (%) (Auto) % (45.0-75.0) 84.2 % (45.0-75.0) H Lymphocytes (%) (Auto) % (20.0-45.0) 7.2 % (20.0-45.0) L Monocytes (%) (Auto) % (1.0-10.0) 7.2 % (1.0-10.0) Eosinophils (%) (Auto) % (0.0-3.0) 0.4 % (0.0-3.0) Basophils (%) (Auto) % (0.0-2.0) 1.1 % (0.0-2.0) Sodium Level 139 MMOL/L (136-145) 142 MMOL/L (136-145) Potassium Level 3.5 MMOL/L (3.5-5.1) 4.3 MMOL/L (3.5-5.1) Chloride Level 107 MMOL/L (98-107) 109 MMOL/L (98-107) H Carbon Dioxide Level 19 MMOL/L (21-32) L 17 MMOL/L (21-32) L Anion Gap 14 mmol/L (5-15) 17 mmol/L (5-15) H Blood Urea Nitrogen 34 mg/dL (7-18) H 41 mg/dL (7-18) H Creatinine 1.5 MG/DL (0.55-1.30) H 1.8 MG/DL (0.55-1.30) H Estimate Glomerular Filtration Rate mL/min (>60) mL/min (>60) Glucose Level 118 MG/DL (74-106) H 142 MG/DL (74-106) H Calcium Level 8.6 MG/DL (8.5-10.1) 8.9 MG/DL (8.5-10.1) Phosphorus Level 3.2 MG/DL (2.5-4.9) Magnesium Level 1.6 MG/DL (1.8-2.4) L Total Bilirubin 0.3 MG/DL (0.2-1.0) Aspartate Amino Transferase (AST) 25 U/L (15-37) Alanine Aminotransferase (ALT) 7 U/L (12-78) L Alkaline Phosphatase 80 U/L (46-116) Total Protein 6.3 G/DL (6.4-8.2) L Albumin 1.1 G/DL (3.4-5.0) L Globulin 5.2 g/dL Albumin/Globulin Ratio 0.2 (1.0-2.7) L Arterial Blood pH 7.340 (7.350-7.450) 7.296 (7.350-7.450) Arterial Blood Partial Pressure CO2 32.4 mmHg (35.0-45.0) L 42.3 mmHg (35.0-45.0) Arterial Blood Partial Pressure O2 97.4 mmHg (75.0-100.0) 95.0 mmHg (75.0-100.0) Arterial Blood HCO3 17.1 mmol/L (22.0-26.0) *L 20.2 mmol/L (22.0-26.0) L Arterial Blood Oxygen Saturation 97.0 % (95-100) 96.4 % (95-100) Arterial Blood Base Excess -7.8 (-2-2) L -5.9 (-2-2) L Marlo Test Positive Positive Vancomycin Level Trough 20.7 ug/mL (5.0-12.0) H Test 04/20/19 13:05 Arterial Blood pH 7.436 (7.350-7.450) Arterial Blood Partial Pressure CO2 30.1 mmHg (35.0-45.0) L Arterial Blood Partial Pressure O2 143.6 mmHg (75.0-100.0) H Arterial Blood HCO3 19.8 mmol/L (22.0-26.0) L Arterial Blood Oxygen Saturation 98.8 % (95-100) Arterial Blood Base Excess -3.7 (-2-2) L Marlo Test Positive Rhythm Strip Diag. Results EP Interpretation: yes Rhythm: NSR, no PVC's, no ectopy Chest X-Ray Diagnostic Results Chest X-Ray Diagnostic Results : Chest X-Ray Ordered: Yes # of Views/Limited/Complete: 1 View Indication: Other EP Interpretation: Yes Interpretation: no effusion, no pneumothorax, other - ET good, bilat infiltrates Impression: Other Electronically Signed by: Gildardo Campa MD Last Vital Signs Date Time Temp Pulse Resp B/P (MAP) Pulse Ox O2 Delivery O2 Flow Rate FiO2 04/20/19 17:20 86 16 55 04/20/19 16:00 Mechanical Ventilator 04/20/19 15:00 93/59 (70) 100 04/20/19 13:00 98.9 04/17/19 05:22 2.0 Status: improved Disposition: ADMITTED INPATIENT Condition: Critical Referrals: Jama Keating DO (PCP) Gildardo Campa MD Apr 20, 2019 17:58
--- NOTE | 2019-04-20 19:16 | NUR ---
HAND-OFF: Report given to HORTENCIA Yun using SBAR.
--- NOTE | 2019-04-20 19:30 | NUR ---
NURSE NOTES: Recvd.on a vent.orally intubated.See settings.Lungs scatt.Rh.Diminished BS at Bases.P.Ox-100%.HOB at 30'.Suctioned tk.beige sec.NS Lavaged.Pos. chg.Lethargic does'nt follows command.Flaccid (R) side R/T hx;CVA.(L) arm on soft wrist restraints prev.self-injury.IV in (L) PICC,NGT intact Gluc.Feeding in progress.F/Cath patent diuresis cloudy urinary output.See I/O.
[2019-04-20] MEDS: Dyna-Hex 2% Top Sol 2oz TOPIC SCH (19:37)
--- NOTE | 2019-04-20 20:15 | Progress Note ---
DATE: 04/20/2019 SUBJECTIVE: This is a 79-year-old female patient with sepsis. The patient is very confused and disorganized. She has got no logical plan for own self-care. She has got some mood lability and decline in cognition below her baseline that is why attending has requested daily psychiatric consultation. MENTAL STATUS EXAMINATION: The patient is a 79-year-old female. Appearance is disheveled. Attitude, irritable and agitated. Affect, guarded and restricted. Intellect poor. Mood depressed and anxious. Motor activity, psychomotor agitation. Insight and judgment is poor. DIAGNOSIS: Major depressive disorder, mild, recurrent with psychotic features rule out dementia with psychosis. PLAN: Continue treatment with Namenda to prevent any further decline in her cognition. A 20 minutes of insight-oriented psychotherapy to help her have insight into cognitive condition so that she has better impulse control and behavior and from unit. Chart reviewed. Discussed with staff. Seen and assessed in her room. Omar Glover M.D. DR: Lucina JOB#: [id number] CC:
--- NOTE | 2019-04-20 22:02 | NUR ---
NURSE NOTES: HS care provided.Pos.chg.Backrub with Lotion.Suctioned.NS Lavaged.Cont.on NGT Feeding Rate inc.Cont.on IV Therapy.Due certified medical dosimetrist.Remain with Low U.O.R/T CKD see latest Creat.Level.
[2019-04-21] VITALS (24 sets, daily range): BP systolic 95–143; BP diastolic 50–70
[2019-04-21] MEDS: NovoLOG Insulin Flexpen SUBQ SCH ×4 (00:01→18:04)
--- NOTE | 2019-04-21 00:10 | NUR ---
NURSE NOTES: Pos. chg.suctioned.VSS.Scope rhythm same.FSBS-144 covered.No distress.
--- NOTE | 2019-04-21 02:00 | NUR ---
NURSE NOTES: Repositioned,Suctioned.Maintain NPO spencer.For poss.PEG in am by .Cont.IV Hydration.
--- NOTE | 2019-04-21 02:05 | Neurology Progress Note ---
Interim History Interim History ROS Limited/Unobtainable: Yes Complaints: AMS Events: Respiratory Failure requiring intubation- not on sedation Interim History This visit was performed one April 21, [address] Geo Espitia. Review of Systems All Systems: reviewed and negative except above Objective Physical Exam Last Vital Signs Date Time Temp Pulse Resp B/P (MAP) Pulse Ox O2 Delivery O2 Flow Rate FiO2 04/21/19 01:29 91 16 55 04/21/19 00:00 Mechanical Ventilator 04/21/19 00:00 98.3 96/56 (69) 100 04/17/19 05:22 2.0 Laboratory Tests Test 04/20/19 05:15 04/20/19 10:20 04/20/19 13:05 White Blood Count 12.1 K/UL (4.8-10.8) H Red Blood Count 3.14 M/UL (4.20-5.40) L Hemoglobin 8.6 G/DL (12.0-16.0) L Hematocrit 27.8 % (37.0-47.0) L Mean Corpuscular Volume 89 FL (80-99) Mean Corpuscular Hemoglobin 27.4 PG (27.0-31.0) Mean Corpuscular Hemoglobin Concent 31.0 G/DL (32.0-36.0) L Red Cell Distribution Width 15.1 % (11.6-14.8) H Platelet Count 195 K/UL (150-450) Mean Platelet Volume 7.1 FL (6.5-10.1) Neutrophils (%) (Auto) 84.2 % (45.0-75.0) H Lymphocytes (%) (Auto) 7.2 % (20.0-45.0) L Monocytes (%) (Auto) 7.2 % (1.0-10.0) Eosinophils (%) (Auto) 0.4 % (0.0-3.0) Basophils (%) (Auto) 1.1 % (0.0-2.0) Sodium Level 142 MMOL/L (136-145) Potassium Level 4.3 MMOL/L (3.5-5.1) Chloride Level 109 MMOL/L (98-107) H Carbon Dioxide Level 17 MMOL/L (21-32) L Anion Gap 17 mmol/L (5-15) H Blood Urea Nitrogen 41 mg/dL (7-18) H Creatinine 1.8 MG/DL (0.55-1.30) H Estimat Glomerular Filtration Rate mL/min (>60) Glucose Level 142 MG/DL (74-106) H Calcium Level 8.9 MG/DL (8.5-10.1) Vancomycin Level Trough 20.7 ug/mL (5.0-12.0) H Arterial Blood pH 7.296 (7.350-7.450) 7.436 (7.350-7.450) Arterial Blood Partial Pressure CO2 42.3 mmHg (35.0-45.0) 30.1 mmHg (35.0-45.0) L Arterial Blood Partial Pressure O2 95.0 mmHg (75.0-100.0) 143.6 mmHg (75.0-100.0) H Arterial Blood HCO3 20.2 mmol/L (22.0-26.0) L 19.8 mmol/L (22.0-26.0) L Arterial Blood Oxygen Saturation 96.4 % (95-100) 98.8 % (95-100) Arterial Blood Base Excess -5.9 (-2-2) L -3.7 (-2-2) L Marlo Test Positive Positive General: well developed, well nourished Head: normocophalic Neck: no rigidity EENT: benign Neurologic Exam Mental Status: awake, other Speech: other Language: other Cranial Nerve II: other Cranial Nerves III, IV, : other Cranial Nerve V: other Cranial Nerve VII: other Cranial Nerve VIII: other Cranial Nerve IX: other Cranial Nerve XI: other Cranial Nerve XII: other Motor System: other Sensory: other Coordination: other Gait: other Objective Right Hemiplegia at baseline- not following commands, eyes opening to noxious stimuli. Previously on BIPAP, now intubated since 04/20/19 due to respiratory failure while in ICU on BIPAP. She is alert, eyes opening to voice and noxious stimuli. She triple flexes in left leg and arm. Right hemiparesis apparent with minimal withdrawal flexion on right UE/LE. Impression/Recommendations Problems: (1) Respiratory distress (2) Malnutrition (3) UTI (urinary tract infection) (4) Diabetic nephropathy (5) Renal failure (ARF), acute on chronic (6) Anemia in chronic kidney disease (CKD) (7) Pulmonary hypertension (8) Hypernatremia (9) Sepsis (10) Pneumonia (11) History of CVA (cerebrovascular accident) (12) CAD (coronary artery disease) (13) Right hemiplegia (14) Diabetes mellitus (15) Hypertensive heart disease (16) 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 (17) Nosocomial pneumonia (18) At high risk for aspiration (19) Acute metabolic encephalopathy Status: deteriorating Recommendations Continue Q2 hour neuro obs MAP>65 HgB> 8 Maintain Na 135-145 PEG feeds to continue as able Maintain normothermia with Tylenol Maintain normoglycemia with ISS Folic Acid 1mg QD PO/NG Abx as per ID 2D Echo No indication for neuroimaging at this time. Wean vent as able Critical care time of 40 minutes, was performed in order to assess and manage the high probability of imminent or life threatening deterioration to respiratory/neurologic function, with frequent reassessment and excludes all billable procedures. Phyllis Diop N.P. Apr 21, 2019 02:05
--- NOTE | 2019-04-21 04:30 | NUR ---
NURSE NOTES: marcio Murdock.Blood drawn for cbc/cmp/mg etc.spec.to lab.
[2019-04-21 05:30] LABS: HEMOGLOBIN 7.6 G/DL (12.0-16.0); MEAN CORPUSCULAR VOLUME 85 FL (80-99); PLATELET COUNT 182 K/UL (150-450); RED CELL DISTRIBUTION WIDTH 14.3 % (11.6-14.8); WHITE BLOOD COUNT 13.6 K/UL (4.8-10.8)
[2019-04-21 06:02] LABS: ALANINE AMINOTRANSFERASE 11 U/L (12-78); ALBUMIN/GLOBULIN RATIO 0.2 (1.0-2.7); ALKALINE PHOSPHATASE 87 U/L (46-116); ANION GAP 12 mmol/L (5-15); ASPARTATE AMINO TRANSFERASE 39 U/L (15-37); BILIRUBIN,TOTAL 0.2 MG/DL (0.2-1.0); BLOOD UREA NITROGEN 43 mg/dL (7-18); CALCIUM 8.5 MG/DL (8.5-10.1); CARBON DIOXIDE 22 MMOL/L (21-32); CHLORIDE 106 MMOL/L (98-107); PHOSPHORUS 2.4 MG/DL (2.5-4.9); POTASSIUM 3.5 MMOL/L (3.5-5.1); SODIUM 140 MMOL/L (136-145)
--- NOTE | 2019-04-21 07:00 | NUR ---
RESPIRATORY NOTE: Received pt mechanically ventilated, no distress noted. Ambu bag at bedside, vent alarms are on and audible. Vitals and pt status seemingly WNL. Will continue to monitor.
--- NOTE | 2019-04-21 07:15 | NUR ---
NURSE NOTES: Received pt from HORTENCIA Yun. Patient is asleep but able to arouse by tactile stimuli. Orally intubated ETT 7.5/23cm at lip line, Vent settings AC [id number]/Fio2 55%/PEEP5. Breathing even and unlabored. Rhonchi heard bilateral b/s less today than yesterday. Right side weakness noted. Soft wrist restraints on left wrist only. SR on personnel monitor. Right NGT NPO, clamped for PEG scheduled today. HOB 35 degrees, abd round, soft and non-distended. FC draining well to gravity. bilateral cheek skin tear noted possibly from previous BIPAP protectant tape. PICC on SUZIE and LFA 2G running D5W with 20kcl @30cc/hr. Afebrile. Bed locked, alarmed and in lowest position. Will continue plan of care.
--- NOTE | 2019-04-21 07:46 | NUR ---
NURSE NOTES: Notified Dr. Gentile regarding hgb 7.6, awaiting for response. GI checklist done.
--- NOTE | 2019-04-21 08:44 | NUR ---
RADIOLOGY DEPT., CHEST X-RAY DONE.-P.DYE
[2019-04-21] MEDS: Metoprolol 25mg tab NG SCH (08:51)
--- NOTE | 2019-04-21 08:57 | Pulmonolgy Critical Care Note ---
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 (7) Hypertensive heart disease (8) Right hemiplegia (9) History of CVA (cerebrovascular accident) (10) CAD (coronary artery disease) Respiratory: monitor respiratory rate, adjust FIO2, CXR Cardiac: continue to monitor HR/BP Renal: keep IV fluid, check electrolytes Infectious Disease: check cultures, continue antibiotics, add antibiotics Gastrointestinal: continue feedings/current rate Endocrine: monitor blood sugar Hematologic: monitor H/H, transfuse if hgb<8.5 Neurologic: PRN Morphine, keep patient comfortable Affect: PRN ativan Prophylaxis: Protonix Time Spent (Minutes): 40 Notes Reviewed: tire bladder maker, renal Discussed with: nurses, consultants, case management managermanager user interface - Objective Last 24 Hour Vital Signs Date Time Temp Pulse Resp B/P (MAP) Pulse Ox O2 Delivery O2 Flow Rate FiO2 04/21/19 08:51 65 99/50 04/21/19 06:57 Mechanical Ventilator 04/21/19 06:54 85 20 55 04/21/19 06:00 78 16 99/50 (66) 100 04/21/19 05:35 70 16 55 04/21/19 05:00 84 16 95/52 (66) 100 04/21/19 04:00 55 04/21/19 04:00 87 04/21/19 04:00 98.7 88 16 111/61 (78) 100 04/21/19 04:00 Mechanical Ventilator 04/21/19 03:26 93 16 55 04/21/19 03:00 88 16 108/58 (75) 100 04/21/19 02:00 88 16 98/60 (73) 100 04/21/19 01:29 91 16 55 04/21/19 01:00 94 16 95/58 (70) 100 04/21/19 00:00 87 04/21/19 00:00 Mechanical Ventilator 04/21/19 00:00 98.3 87 16 96/56 (69) 100 04/21/19 00:00 55 04/20/19 23:18 92 20 55 04/20/19 23:00 86 16 97/59 (72) 100 04/20/19 22:14 85 18 55 04/20/19 22:00 86 16 94/56 (69) 100 04/20/19 21:00 85 16 101/66 (78) 100 04/20/19 20:33 81 101/66 04/20/19 20:00 Mechanical Ventilator 04/20/19 20:00 86 04/20/19 20:00 55 04/20/19 20:00 98.8 86 16 91/64 (73) 100 04/20/19 19:33 Mechanical Ventilator 04/20/19 19:30 83 17 55 04/20/19 19:00 73 16 102/62 (75) 100 04/20/19 18:00 84 16 101/58 (72) 100 04/20/19 17:20 86 16 55 04/20/19 17:00 82 17 101/63 (76) 100 04/20/19 16:00 Mechanical Ventilator 04/20/19 16:00 84 04/20/19 16:00 98.7 84 16 105/58 (74) 100 04/20/19 16:00 45 04/20/19 15:39 81 16 55 04/20/19 15:00 82 17 93/59 (70) 100 04/20/19 14:00 79 17 91/58 (69) 100 04/20/19 13:05 82 16 55 04/20/19 13:00 98.9 80 17 96/55 (69) 100 04/20/19 12:00 45 04/20/19 12:00 Mechanical Ventilator 04/20/19 12:00 86 17 96/54 (68) 100 04/20/19 12:00 80 04/20/19 11:00 78 17 89/49 (62) 100 04/20/19 10:45 77 16 55 04/20/19 10:00 89 17 102/66 (78) 100 04/20/19 09:09 106 108/60 04/20/19 09:00 91 21 108/60 (76) 100 Status: sedated Condition: critical HEENT: atraumatic, normocephalic Neck: full ROM Lungs: rales, rhonchi Heart: HR/BP stable Abdomen: soft, non-tender, active bowel sounds Extremities: no C/C/E Decubiti: location Micro: Microbiology Date/Time Source Procedure Growth Status 04/19/19 14:00 Sputum Induced Gram Stain - Final Resulted 04/19/19 14:00 Sputum Culture - Preliminary YEAST Resulted Accucheck: 120 Critical Care - Subjective ROS Limited/Unobtainable: Yes Condition: critical EKG Rhythm: Sinus Rhythm FI02: 55 Vent Support Breath Rate: 16 Vent Support Mode: AC Vent Tidal Volume: 500 Sputum Amount: Small PEEP: 5.0 PIP: 32 Tube Feeding Amount: 0 I&O: Intake and Output 04/20/19 04/21/19 18:59 06:59 Intake Total 1035 ml 735 ml Output Total 560 ml 230 ml Balance 475 ml 505 ml Intake Oral 0 ml Free Water 120 ml 100 ml IV Total 605 ml 360 ml Tube Feeding 310 ml 275 ml Output Urine Total 560 ml 230 ml # Bowel Movements 1 CXR: Endotracheal tube is about the 3 to 4 cm above the mita. There is less pulmonary edema compared to yesterday but with moderate residual edema. The heart remains enlarged. ET-Tube: 7.5 ET Position: 23 Labs: Laboratory Tests Test 04/20/19 10:20 04/20/19 13:05 04/21/19 05:00 Arterial Blood pH 7.296 (7.350-7.450) 7.436 (7.350-7.450) Arterial Blood Partial Pressure CO2 42.3 mmHg (35.0-45.0) 30.1 mmHg (35.0-45.0) L Arterial Blood Partial Pressure O2 95.0 mmHg (75.0-100.0) 143.6 mmHg (75.0-100.0) H Arterial Blood HCO3 20.2 mmol/L (22.0-26.0) L 19.8 mmol/L (22.0-26.0) L Arterial Blood Oxygen Saturation 96.4 % (95-100) 98.8 % (95-100) Arterial Blood Base Excess -5.9 (-2-2) L -3.7 (-2-2) L Marlo Test Positive Positive White Blood Count 13.6 K/UL (4.8-10.8) H Red Blood Count 2.70 M/UL (4.20-5.40) L Hemoglobin 7.6 G/DL (12.0-16.0) L Hematocrit 23.0 % (37.0-47.0) L Mean Corpuscular Volume 85 FL (80-99) Mean Corpuscular Hemoglobin 28.1 PG (27.0-31.0) Mean Corpuscular Hemoglobin Concent 32.8 G/DL (32.0-36.0) Red Cell Distribution Width 14.3 % (11.6-14.8) Platelet Count 182 K/UL (150-450) Mean Platelet Volume 8.3 FL (6.5-10.1) Neutrophils (%) (Auto) % (45.0-75.0) Lymphocytes (%) (Auto) % (20.0-45.0) Monocytes (%) (Auto) % (1.0-10.0) Eosinophils (%) (Auto) % (0.0-3.0) Basophils (%) (Auto) % (0.0-2.0) Differential Total Cells Counted 100 Neutrophils % (Manual) 84 % (45-75) H Lymphocytes % (Manual) 13 % (20-45) L Monocytes % (Manual) 2 % (1-10) Eosinophils % (Manual) 0 % (0-3) Basophils % (Manual) 1 % (0-2) Band Neutrophils 0 % (0-8) Platelet Estimate Adequate Platelet Morphology Normal Hypochromasia 3+ Anisocytosis 1+ Spherocytes 1+ Sodium Level 140 MMOL/L (136-145) Potassium Level 3.5 MMOL/L (3.5-5.1) Chloride Level 106 MMOL/L (98-107) Carbon Dioxide Level 22 MMOL/L (21-32) Anion Gap 12 mmol/L (5-15) Blood Urea Nitrogen 43 mg/dL (7-18) H Creatinine 2.0 MG/DL (0.55-1.30) H Estimat Glomerular Filtration Rate mL/min (>60) Glucose Level 152 MG/DL (74-106) H Uric Acid 7.2 MG/DL (2.6-7.2) Calcium Level 8.5 MG/DL (8.5-10.1) Phosphorus Level 2.4 MG/DL (2.5-4.9) L Magnesium Level 1.7 MG/DL (1.8-2.4) L Total Bilirubin 0.2 MG/DL (0.2-1.0) Aspartate Amino Transf (AST/SGOT) 39 U/L (15-37) H Alanine Aminotransferase (ALT/SGPT) 11 U/L (12-78) L Alkaline Phosphatase 87 U/L (46-116) C-Reactive Protein, Quantitative 22.7 mg/dL (0.00-0.90) H Pro-B-Type Natriuretic Peptide 9203 pg/mL (0-125) H Total Protein 5.9 G/DL (6.4-8.2) L Albumin 1.0 G/DL (3.4-5.0) L Globulin 4.9 g/dL Albumin/Globulin Ratio 0.2 (1.0-2.7) L Tony Springer MD Apr 21, 2019 08:57
--- NOTE | 2019-04-21 10:30 | NUR ---
NURSE NOTES: Turned and reposition, large brown loose stool passed. Reinserted gonzalez catheter, urine output still minimal. Cloudy, dark yellow urine with sediments noted. Kept dry and clean.
--- NOTE | 2019-04-21 10:58 | Anethesia Preoperative Eval ---
Anesthesia Pre-op PMH/ROS General Date of Evaluation: Apr 21, 2019 Anesthesiologist: Cam ASA Score: ASA 4 Mallampati Score Class I : Soft palate, uvula, fauces, pillars visible Class II: Soft palate, uvula, fauces visible Class III: Soft palate, base of uvula visible Class IV: Only hard plate visible Mallampati Classification: Class II Surgeon: Seferino Diagnosis: Dysphagia Surgical Procedure: PEG Anesthesia History: none Family History: no anesthesia problems Allergies: Coded Allergies: No Known Allergies (Unverified , 04/12/19) Medications: see eMAR Patient NPO?: Yes NPO Date: Apr 20, 2019 NPO Time: 00:00 Past Medical History Cardiovascular: Reports: HTN, CAD, arrhythmia - aflutter; Denies: NH, valve dz, other Pulmonary: Reports: other - respiratory failure intubated and on mechanical ventilation; Denies: asthma, COPD, HENOK Gastrointestinal/Genitourinary: Reports: CRI; Denies: GERD, ESRD, other Neurologic/Psychiatric: Reports: CVA; Denies: dementia, depression/anxiety, TIA, other Endocrine: Reports: DM; Denies: hypothyroidism, steroids, other HEENT: Denies: cataract (L), cataract (R), glaucoma, QUILEUTE (L), QUILEUTE (R), other Hematology/Immune: Reports: anemia - chronic; Denies: DVT, bleeding disorder, other Musculoskeletal/Integumentary: Denies: OA, RA, DJD, DDD, edema, other PSxH Narrative: See H&P Anesthesia Pre-op Phys. Exam Physician Exam Last Vital Signs Date Time Temp Pulse Resp B/P (MAP) Pulse Ox O2 Delivery O2 Flow Rate FiO2 04/21/19 09:26 80 22 55 04/21/19 08:51 99/50 04/21/19 08:00 Mechanical Ventilator 04/21/19 06:00 100 04/21/19 04:00 98.7 04/17/19 05:22 2.0 Constitutional: NAD Cardiovascular: RRR Respiratory: CTA Airway Exam Mallampati Score: Class II Anesthesia Pre-op A/P Labs Hematology Test 04/21/19 05:00 White Blood Count 13.6 K/UL (4.8-10.8) H Red Blood Count 2.70 M/UL (4.20-5.40) L Hemoglobin 7.6 G/DL (12.0-16.0) L Hematocrit 23.0 % (37.0-47.0) L Mean Corpuscular Volume 85 FL (80-99) Mean Corpuscular Hemoglobin 28.1 PG (27.0-31.0) Mean Corpuscular Hemoglobin Concent 32.8 G/DL (32.0-36.0) Red Cell Distribution Width 14.3 % (11.6-14.8) Platelet Count 182 K/UL (150-450) Mean Platelet Volume 8.3 FL (6.5-10.1) Neutrophils (%) (Auto) % (45.0-75.0) Lymphocytes (%) (Auto) % (20.0-45.0) Monocytes (%) (Auto) % (1.0-10.0) Eosinophils (%) (Auto) % (0.0-3.0) Basophils (%) (Auto) % (0.0-2.0) Differential Total Cells Counted 100 Neutrophils % (Manual) 84 % (45-75) H Lymphocytes % (Manual) 13 % (20-45) L Monocytes % (Manual) 2 % (1-10) Eosinophils % (Manual) 0 % (0-3) Basophils % (Manual) 1 % (0-2) Band Neutrophils 0 % (0-8) Platelet Estimate Adequate Platelet Morphology Normal Hypochromasia 3+ Anisocytosis 1+ Spherocytes 1+ Chemistry Test 04/21/19 05:00 Sodium Level 140 MMOL/L (136-145) Potassium Level 3.5 MMOL/L (3.5-5.1) Chloride Level 106 MMOL/L (98-107) Carbon Dioxide Level 22 MMOL/L (21-32) Anion Gap 12 mmol/L (5-15) Blood Urea Nitrogen 43 mg/dL (7-18) H Creatinine 2.0 MG/DL (0.55-1.30) H Estimat Glomerular Filtration Rate mL/min (>60) Glucose Level 152 MG/DL (74-106) H Uric Acid 7.2 MG/DL (2.6-7.2) Calcium Level 8.5 MG/DL (8.5-10.1) Phosphorus Level 2.4 MG/DL (2.5-4.9) L Magnesium Level 1.7 MG/DL (1.8-2.4) L Total Bilirubin 0.2 MG/DL (0.2-1.0) Aspartate Amino Transf (AST/SGOT) 39 U/L (15-37) H Alanine Aminotransferase (ALT/SGPT) 11 U/L (12-78) L Alkaline Phosphatase 87 U/L (46-116) C-Reactive Protein, Quantitative 22.7 mg/dL (0.00-0.90) H Pro-B-Type Natriuretic Peptide 9203 pg/mL (0-125) H Total Protein 5.9 G/DL (6.4-8.2) L Albumin 1.0 G/DL (3.4-5.0) L Globulin 4.9 g/dL Albumin/Globulin Ratio 0.2 (1.0-2.7) L Studies Pre-op Studies: EKG Risk Assessment & Plan Assessment: ASA IV Plan: GA Status Change Before Surgery: No Pre-Antibiotics Drug: Lisandra Gillis MD Apr 21, 2019 10:58
[2019-04-21] MEDS: D5 1/2NS 1,000 ML IV SCH (11:20)
[2019-04-21] MEDS: Meropenem 1 GM in NS 55 ML IVPB SCH ×2 (11:20→23:00)
--- NOTE | 2019-04-21 11:26 | NUR ---
HAND [employer] SI:ARF . PNA . RESPIRATORY FAILURE VS: BP 99/50, P 65, T 98.7, RR 22, SpO2 100 oN VENT AC 16, TV 500, PEEP 5.0, FiO2 55 WBC 13.6, RBC 2.70, H&H 7.6/23.0, BUN 43, CR 2.0, GLUCOSE 152 IS:MAGNESIUM SULFATE 100ml IVPB FOLIC ACID 1mg NOVOLOG SUBQ MEROPENEM 55ml IVPB INTUBATED 04/20 AFTER FAILED WEENING ICU STATUS
--- NOTE | 2019-04-21 11:27 | NUR ---
*-* INSURANCE *-* UPDATED CLINICALS HAVE BEEN FAXED TO: [facility] white# [id number] P: [phone] F: [phone] (FAX CLINICALS)
--- NOTE | 2019-04-21 12:16 | Cardiac Electrophysiology PN ---
Assessment/Plan Assessment/Plan 1. Atrial flutter, self terminated. Lopressor DCed for low BP 2. Hypotension . DCed metoprolol and Midodrine 10 tid added 3. Coronary artery disease. On Plavix 75 mg daily 4. Respiratory failure, intubated 5. Sepsis. White count 25,000. On IV abx 6. Anemia.S/P PRBC 7. Renal failure. Getting hydration by Dr. Spivey 8. Dysphagia. PEG pending today 9. History of CVA with hemiplegia. 10. Nonverbal status. 11. Full code DW RN Subjective Subjective Intubated in ICU. NPO for PEG today. No atrial flutter overnight. Off pressors Objective Last 24 Hour Vital Signs Date Time Temp Pulse Resp B/P (MAP) Pulse Ox O2 Delivery O2 Flow Rate FiO2 04/21/19 11:07 78 20 55 04/21/19 11:00 79 17 106/55 (72) 100 04/21/19 10:00 91 17 109/55 (73) 100 04/21/19 09:26 80 22 55 04/21/19 09:00 76 16 112/60 (77) 100 04/21/19 08:51 65 99/50 04/21/19 08:00 55 04/21/19 08:00 83 04/21/19 08:00 82 16 97/54 (68) 100 04/21/19 08:00 Mechanical Ventilator 04/21/19 07:00 98.9 81 16 110/70 (83) 100 04/21/19 06:57 Mechanical Ventilator 04/21/19 06:54 85 20 55 04/21/19 06:00 78 16 99/50 (66) 100 04/21/19 05:35 70 16 55 04/21/19 05:00 84 16 95/52 (66) 100 04/21/19 04:00 55 04/21/19 04:00 87 04/21/19 04:00 98.7 88 16 111/61 (78) 100 04/21/19 04:00 Mechanical Ventilator 04/21/19 03:26 93 16 55 04/21/19 03:00 88 16 108/58 (75) 100 04/21/19 02:00 88 16 98/60 (73) 100 04/21/19 01:29 91 16 55 04/21/19 01:00 94 16 95/58 (70) 100 04/21/19 00:00 87 04/21/19 00:00 Mechanical Ventilator 04/21/19 00:00 98.3 87 16 96/56 (69) 100 04/21/19 00:00 55 04/20/19 23:18 92 20 55 04/20/19 23:00 86 16 97/59 (72) 100 04/20/19 22:14 85 18 55 04/20/19 22:00 86 16 94/56 (69) 100 04/20/19 21:00 85 16 101/66 (78) 100 04/20/19 20:33 81 101/66 04/20/19 20:00 Mechanical Ventilator 04/20/19 20:00 86 04/20/19 20:00 55 04/20/19 20:00 98.8 86 16 91/64 (73) 100 04/20/19 19:33 Mechanical Ventilator 04/20/19 19:30 83 17 55 04/20/19 19:00 73 16 102/62 (75) 100 04/20/19 18:00 84 16 101/58 (72) 100 04/20/19 17:20 86 16 55 04/20/19 17:00 82 17 101/63 (76) 100 04/20/19 16:00 Mechanical Ventilator 04/20/19 16:00 84 04/20/19 16:00 98.7 84 16 105/58 (74) 100 04/20/19 16:00 45 04/20/19 15:39 81 16 55 04/20/19 15:00 82 17 93/59 (70) 100 04/20/19 14:00 79 17 91/58 (69) 100 04/20/19 13:05 82 16 55 04/20/19 13:00 98.9 80 17 96/55 (69) 100 Intake and Output 04/20/19 04/21/19 19:00 07:00 Intake Total 770 ml 700 ml Output Total 560 ml 225 ml Balance 210 ml 475 ml Intake Oral 0 ml Free Water 120 ml 100 ml IV Total 330 ml 360 ml Tube Feeding 320 ml 240 ml Output Urine Total 560 ml 225 ml # Bowel Movements 1 Laboratory Tests Test 04/20/19 13:05 04/21/19 05:00 04/21/19 07:44 Arterial Blood pH 7.436 (7.350-7.450) 7.443 (7.350-7.450) Arterial Blood Partial Pressure CO2 30.1 mmHg (35.0-45.0) L 28.5 mmHg (35.0-45.0) L Arterial Blood Partial Pressure O2 143.6 mmHg (75.0-100.0) H 138.3 mmHg (75.0-100.0) H Arterial Blood HCO3 19.8 mmol/L (22.0-26.0) L 19.1 mmol/L (22.0-26.0) L Arterial Blood Oxygen Saturation 98.8 % (95-100) 98.4 % (95-100) Arterial Blood Base Excess -3.7 (-2-2) L -4.3 (-2-2) L Marlo Test Positive Positive White Blood Count 13.6 K/UL (4.8-10.8) H Red Blood Count 2.70 M/UL (4.20-5.40) L Hemoglobin 7.6 G/DL (12.0-16.0) L Hematocrit 23.0 % (37.0-47.0) L Mean Corpuscular Volume 85 FL (80-99) Mean Corpuscular Hemoglobin 28.1 PG (27.0-31.0) Mean Corpuscular Hemoglobin Concent 32.8 G/DL (32.0-36.0) Red Cell Distribution Width 14.3 % (11.6-14.8) Platelet Count 182 K/UL (150-450) Mean Platelet Volume 8.3 FL (6.5-10.1) Neutrophils (%) (Auto) % (45.0-75.0) Lymphocytes (%) (Auto) % (20.0-45.0) Monocytes (%) (Auto) % (1.0-10.0) Eosinophils (%) (Auto) % (0.0-3.0) Basophils (%) (Auto) % (0.0-2.0) Differential Total Cells Counted 100 Neutrophils % (Manual) 84 % (45-75) H Lymphocytes % (Manual) 13 % (20-45) L Monocytes % (Manual) 2 % (1-10) Eosinophils % (Manual) 0 % (0-3) Basophils % (Manual) 1 % (0-2) Band Neutrophils 0 % (0-8) Platelet Estimate Adequate Platelet Morphology Normal Hypochromasia 3+ Anisocytosis 1+ Spherocytes 1+ Sodium Level 140 MMOL/L (136-145) Potassium Level 3.5 MMOL/L (3.5-5.1) Chloride Level 106 MMOL/L (98-107) Carbon Dioxide Level 22 MMOL/L (21-32) Anion Gap 12 mmol/L (5-15) Blood Urea Nitrogen 43 mg/dL (7-18) H Creatinine 2.0 MG/DL (0.55-1.30) H Estimat Glomerular Filtration Rate mL/min (>60) Glucose Level 152 MG/DL (74-106) H Uric Acid 7.2 MG/DL (2.6-7.2) Calcium Level 8.5 MG/DL (8.5-10.1) Phosphorus Level 2.4 MG/DL (2.5-4.9) L Magnesium Level 1.7 MG/DL (1.8-2.4) L Total Bilirubin 0.2 MG/DL (0.2-1.0) Aspartate Amino Transf (AST/SGOT) 39 U/L (15-37) H Alanine Aminotransferase (ALT/SGPT) 11 U/L (12-78) L Alkaline Phosphatase 87 U/L (46-116) C-Reactive Protein, Quantitative 22.7 mg/dL (0.00-0.90) H Pro-B-Type Natriuretic Peptide 9203 pg/mL (0-125) H Total Protein 5.9 G/DL (6.4-8.2) L Albumin 1.0 G/DL (3.4-5.0) L Globulin 4.9 g/dL Albumin/Globulin Ratio 0.2 (1.0-2.7) L Microbiology Date/Time Source Procedure Growth Status 04/19/19 14:00 Sputum Induced Gram Stain - Final Resulted 04/19/19 14:00 Sputum Culture - Preliminary YEAST Resulted Objective HEAD AND NECK: No JVD. On BIPAP and NG tube LUNGS: Coarse rhonchi bilaterally. CARDIOVASCULAR: Regular S1 and S2 with no gallop. ABDOMEN: Soft. EXTREMITIES: No pitting edema. Claude Pena MD Apr 21, 2019 12:16
--- NOTE | 2019-04-21 12:27 | Diagnostic Imaging Report ---
Indication: Dyspnea Comparison: 04/20/2019 A single view chest radiograph was obtained. Findings: Hazy basilar groundglass opacities likely pleural effusions noted. Pulmonary vascularity is prominent and cephalized. Endotracheal tube, nasogastric tube and left PICC line noted. The PICC line tip is projected over the SVC in good position. Right-sided aortic arch. IMPRESSION: PICC line in good position. Pulmonary edema. Pleural effusion suspected bilaterally.
[2019-04-21] MEDS ORDERED: Tubing IV Secondary IV ONE (12:30)
[2019-04-21] MEDS ORDERED: Sterile Water Irrig 1000ml IRRIG ONE (12:30)
[2019-04-21] MEDS ORDERED: NS 275ml ONE (12:30)
[2019-04-21] MEDS: Midodrine 10mg tab NG SCH ×2 (12:46→18:03)
--- NOTE | 2019-04-21 12:48 | NUR ---
NURSE NOTES: PEG cancelled per Dr. Gentile, rescheduled for tomorrow. Received orders to resume feeding and NPO at midnight.
--- NOTE | 2019-04-21 12:48 | General Progress Note ---
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 ICD Codes: E11.22 - Type 2 diabetes mellitus with diabetic chronic kidney disease; N18.4 - Chronic kidney disease, stage 4 (severe) SNOMED: 39420618, 494597438, 856473402 (3) Diabetes mellitus ICD Codes: E11.9 - Type 2 diabetes mellitus without complications SNOMED: 60321451 (4) CAD (coronary artery disease) ICD Codes: I25.10 - Atherosclerotic heart disease of [place] coronary artery without angina pectoris SNOMED: 86014893 (5) History of CVA (cerebrovascular accident) ICD Codes: Z86.73 - Personal history of transient ischemic attack (TIA), and cerebral infarction without residual deficits SNOMED: 759259781 (6) Anemia in chronic kidney disease (CKD) ICD Codes: N18.9 - Chronic kidney disease, unspecified; D63.1 - Anemia in chronic kidney disease SNOMED: 912410392 (7) Diabetic nephropathy ICD Codes: E11.21 - Type 2 diabetes mellitus with diabetic nephropathy SNOMED: 667581986 Status: deteriorating Assessment/Plan: intubated NGT feeding plan PEG for tomorrow morning fu labs fu pulm recs Subjective ROS Limited/Unobtainable: No Allergies: Coded Allergies: No Known Allergies (Unverified , 04/12/19) Objective Last 24 Hour Vital Signs Date Time Temp Pulse Resp B/P (MAP) Pulse Ox O2 Delivery O2 Flow Rate FiO2 04/21/19 11:07 78 20 55 04/21/19 11:00 79 17 106/55 (72) 100 04/21/19 10:00 91 17 109/55 (73) 100 04/21/19 09:26 80 22 55 04/21/19 09:00 76 16 112/60 (77) 100 04/21/19 08:51 65 99/50 04/21/19 08:00 55 04/21/19 08:00 83 04/21/19 08:00 82 16 97/54 (68) 100 04/21/19 08:00 Mechanical Ventilator 04/21/19 07:00 98.9 81 16 110/70 (83) 100 04/21/19 06:57 Mechanical Ventilator 04/21/19 06:54 85 20 55 04/21/19 06:00 78 16 99/50 (66) 100 04/21/19 05:35 70 16 55 04/21/19 05:00 84 16 95/52 (66) 100 04/21/19 04:00 55 04/21/19 04:00 87 04/21/19 04:00 98.7 88 16 111/61 (78) 100 04/21/19 04:00 Mechanical Ventilator 04/21/19 03:26 93 16 55 04/21/19 03:00 88 16 108/58 (75) 100 04/21/19 02:00 88 16 98/60 (73) 100 04/21/19 01:29 91 16 55 04/21/19 01:00 94 16 95/58 (70) 100 04/21/19 00:00 87 04/21/19 00:00 Mechanical Ventilator 04/21/19 00:00 98.3 87 16 96/56 (69) 100 04/21/19 00:00 55 04/20/19 23:18 92 20 55 04/20/19 23:00 86 16 97/59 (72) 100 04/20/19 22:14 85 18 55 04/20/19 22:00 86 16 94/56 (69) 100 04/20/19 21:00 85 16 101/66 (78) 100 04/20/19 20:33 81 101/66 04/20/19 20:00 Mechanical Ventilator 04/20/19 20:00 86 04/20/19 20:00 55 04/20/19 20:00 98.8 86 16 91/64 (73) 100 04/20/19 19:33 Mechanical Ventilator 04/20/19 19:30 83 17 55 04/20/19 19:00 73 16 102/62 (75) 100 04/20/19 18:00 84 16 101/58 (72) 100 04/20/19 17:20 86 16 55 04/20/19 17:00 82 17 101/63 (76) 100 04/20/19 16:00 Mechanical Ventilator 04/20/19 16:00 84 04/20/19 16:00 98.7 84 16 105/58 (74) 100 04/20/19 16:00 45 6/25/19 15:39 81 16 55 04/20/19 15:00 82 17 93/59 (70) 100 04/20/19 14:00 79 17 91/58 (69) 100 04/20/19 13:05 82 16 55 04/20/19 13:00 98.9 80 17 96/55 (69) 100 Intake and Output 04/20/19 04/21/19 19:00 07:00 Intake Total 770 ml 700 ml Output Total 560 ml 225 ml Balance 210 ml 475 ml Intake Oral 0 ml Free Water 120 ml 100 ml IV Total 330 ml 360 ml Tube Feeding 320 ml 240 ml Output Urine Total 560 ml 225 ml # Bowel Movements 1 Laboratory Tests 04/20/19 13:05: Arterial Blood pH 7.436, Arterial Blood Partial Pressure CO2 30.1L, Arterial Blood Partial Pressure O2 143.6H, Arterial Blood HCO3 19.8L, Arterial Blood Oxygen Saturation 98.8, Arterial Blood Base Excess -3.7L, Marlo Test Positive 04/21/19 05:00: White Blood Count 13.6H, Red Blood Count 2.70L, Hemoglobin 7.6L, Hematocrit 23.0L, Mean Corpuscular Volume 85, Mean Corpuscular Hemoglobin 28.1, Mean Corpuscular Hemoglobin Concent 32.8, Red Cell Distribution Width 14.3, Platelet Count 182, Mean Platelet Volume 8.3, Neutrophils (%) (Auto) , Lymphocytes (%) ( Auto) , Monocytes (%) (Auto) , Eosinophils (%) (Auto) , Basophils (%) (Auto) , Differential Total Cells Counted 100, Neutrophils % (Manual) 84H, Lymphocytes % (Manual) 13L, Monocytes % (Manual) 2, Eosinophils % (Manual) 0, Basophils % ( Manual) 1, Band Neutrophils 0, Platelet Estimate Adequate, Platelet Morphology Normal, Hypochromasia 3+, Anisocytosis 1+, Spherocytes 1+, Sodium Level 140, Potassium Level 3.5, Chloride Level 106, Carbon Dioxide Level 22, Anion Gap 12, Blood Urea Nitrogen 43H, Creatinine 2.0H, Estimat Glomerular Filtration Rate , Glucose Level 152H, Uric Acid 7.2, Calcium Level 8.5, Phosphorus Level 2.4L, Magnesium Level 1.7L, Total Bilirubin 0.2, Aspartate Amino Transf (AST/SGOT) 39H , Alanine Aminotransferase (ALT/SGPT) 11L, Alkaline Phosphatase 87, C-Reactive Protein, Quantitative 22.7H, Pro-B-Type Natriuretic Peptide 9203H, Total Protein 5.9L, Albumin 1.0L, Globulin 4.9, Albumin/Globulin Ratio 0.2L 04/21/19 07:44: Arterial Blood pH 7.443, Arterial Blood Partial Pressure CO2 28.5L, Arterial Blood Partial Pressure O2 138.3H, Arterial Blood HCO3 19.1L, Arterial Blood Oxygen Saturation 98.4, Arterial Blood Base Excess -4.3L, Marlo Test Positive Height (Feet): 5 Height (Inches): 2.00 Weight (Pounds): 176 General Appearance: lethargic EENT: normal ENT inspection Neck: supple Cardiovascular: normal rate Respiratory/Chest: decreased breath sounds Abdomen: normal bowel sounds, non tender, soft Extremities: non-tender Darron Gentile MD Apr 21, 2019 12:48
--- NOTE | 2019-04-21 14:00 | NUR ---
NURSE NOTES: Skin sheering on left buttocks found, stage 2. Pictures taken and uploaded. dressing done with calazime and biatin.
--- NOTE | 2019-04-21 14:23 | NUR ---
Social Work This SW met with patient who is currently in the ICU, intubated, sedated. This Sw contacted son, Cezar Sage @ [phone], who is the primary decision maker (who explains he is also the only child). Patient is from [facility] and son confirmed he would like a transfer back to this facility, when medically stable. Son is requesting full code, full treatment. This Sw spoke with Medical Records, Eliecer at [facility] who faxed Documents stating full code, full treatment (signed by son; placed on front of the chart). Son explains he has some medical complications himself, making it difficult to travel at times to the hospital, planning to possibly visit patient over the weekend or will contact nursing station to obtain report, as needed. SW to follow further for emotional support and appropriate decision making, as needed.
--- NOTE | 2019-04-21 14:43 | General Progress Note ---
Assessment/Plan Problem List: (1) UTI (urinary tract infection) ICD Codes: N39.0 - Urinary tract infection, site not specified SNOMED: 09764035 (2) Respiratory distress ICD Codes: R06.03 - Acute respiratory distress SNOMED: 407594358 (3) Malnutrition ICD Codes: E46 - Unspecified protein-calorie malnutrition SNOMED: 77900927 (4) Sepsis ICD Codes: A41.9 - Sepsis, unspecified organism SNOMED: 99992664 (5) Pneumonia ICD Codes: J18.9 - Pneumonia, unspecified organism SNOMED: 162122001 Qualifiers: Qualified Codes: J18.9 - Pneumonia, unspecified organism (6) 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 ICD Codes: E11.22 - Type 2 diabetes mellitus with diabetic chronic kidney disease; N18.4 - Chronic kidney disease, stage 4 (severe) SNOMED: 04353386, 317044167, 531545303 (7) Respiratory failure ICD Codes: J96.90 - Respiratory failure, unspecified, unspecified whether with hypoxia or hypercapnia SNOMED: 566367523 Qualifiers: Qualified Codes: J96.02 - Acute respiratory failure with hypercapnia Status: unchanged Assessment/Plan: pt diet abx o2 pulm tx neuro psyc eval cbc bmp am ltach eval Subjective Constitutional: Reports: weakness Allergies: Coded Allergies: No Known Allergies (Unverified , 04/12/19) All Systems: reviewed and negative except above Subjective intubated ng in icu Objective Last 24 Hour Vital Signs Date Time Temp Pulse Resp B/P (MAP) Pulse Ox O2 Delivery O2 Flow Rate FiO2 04/21/19 13:15 74 18 55 04/21/19 12:00 55 04/21/19 12:00 Mechanical Ventilator 04/21/19 12:00 81 04/21/19 11:07 78 20 55 04/21/19 11:00 79 17 106/55 (72) 100 04/21/19 10:00 91 17 109/55 (73) 100 04/21/19 09:26 80 22 55 04/21/19 09:00 76 16 112/60 (77) 100 04/21/19 08:51 65 99/50 04/21/19 08:00 55 04/21/19 08:00 83 04/21/19 08:00 82 16 97/54 (68) 100 04/21/19 08:00 Mechanical Ventilator 04/21/19 07:00 98.9 81 16 110/70 (83) 100 04/21/19 06:57 Mechanical Ventilator 04/21/19 06:54 85 20 55 04/21/19 06:00 78 16 99/50 (66) 100 04/21/19 05:35 70 16 55 04/21/19 05:00 84 16 95/52 (66) 100 04/21/19 04:00 55 04/21/19 04:00 87 04/21/19 04:00 98.7 88 16 111/61 (78) 100 04/21/19 04:00 Mechanical Ventilator 04/21/19 03:26 93 16 55 04/21/19 03:00 88 16 108/58 (75) 100 04/21/19 02:00 88 16 98/60 (73) 100 04/21/19 01:29 91 16 55 04/21/19 01:00 94 16 95/58 (70) 100 04/21/19 00:00 87 04/21/19 00:00 Mechanical Ventilator 04/21/19 00:00 98.3 87 16 96/56 (69) 100 04/21/19 00:00 55 04/20/19 23:18 92 20 55 04/20/19 23:00 86 16 97/59 (72) 100 04/20/19 22:14 85 18 55 04/20/19 22:00 86 16 94/56 (69) 100 04/20/19 21:00 85 16 101/66 (78) 100 04/20/19 20:33 81 101/66 04/20/19 20:00 Mechanical Ventilator 04/20/19 20:00 86 04/20/19 20:00 55 04/20/19 20:00 98.8 86 16 91/64 (73) 100 04/20/19 19:33 Mechanical Ventilator 04/20/19 19:30 83 17 55 04/20/19 19:00 73 16 102/62 (75) 100 04/20/19 18:00 84 16 101/58 (72) 100 04/20/19 17:20 86 16 55 04/20/19 17:00 82 17 101/63 (76) 100 04/20/19 16:00 Mechanical Ventilator 04/20/19 16:00 84 04/20/19 16:00 98.7 84 16 105/58 (74) 100 04/20/19 16:00 45 04/20/19 15:39 81 16 55 04/20/19 15:00 82 17 93/59 (70) 100 Intake and Output 04/20/19 04/21/19 19:00 07:00 Intake Total 770 ml 700 ml Output Total 560 ml 225 ml Balance 210 ml 475 ml Intake Oral 0 ml Free Water 120 ml 100 ml IV Total 330 ml 360 ml Tube Feeding 320 ml 240 ml Output Urine Total 560 ml 225 ml # Bowel Movements 1 Laboratory Tests 04/21/19 05:00: White Blood Count 13.6H, Red Blood Count 2.70L, Hemoglobin 7.6L, Hematocrit 23.0L, Mean Corpuscular Volume 85, Mean Corpuscular Hemoglobin 28.1, Mean Corpuscular Hemoglobin Concent 32.8, Red Cell Distribution Width 14.3, Platelet Count 182, Mean Platelet Volume 8.3, Neutrophils (%) (Auto) , Lymphocytes (%) ( Auto) , Monocytes (%) (Auto) , Eosinophils (%) (Auto) , Basophils (%) (Auto) , Differential Total Cells Counted 100, Neutrophils % (Manual) 84H, Lymphocytes % (Manual) 13L, Monocytes % (Manual) 2, Eosinophils % (Manual) 0, Basophils % ( Manual) 1, Band Neutrophils 0, Platelet Estimate Adequate, Platelet Morphology Normal, Hypochromasia 3+, Anisocytosis 1+, Spherocytes 1+, Sodium Level 140, Potassium Level 3.5, Chloride Level 106, Carbon Dioxide Level 22, Anion Gap 12, Blood Urea Nitrogen 43H, Creatinine 2.0H, Estimat Glomerular Filtration Rate , Glucose Level 152H, Uric Acid 7.2, Calcium Level 8.5, Phosphorus Level 2.4L, Magnesium Level 1.7L, Total Bilirubin 0.2, Aspartate Amino Transf (AST/SGOT) 39H , Alanine Aminotransferase (ALT/SGPT) 11L, Alkaline Phosphatase 87, C-Reactive Protein, Quantitative 22.7H, Pro-B-Type Natriuretic Peptide 9203H, Total Protein 5.9L, Albumin 1.0L, Globulin 4.9, Albumin/Globulin Ratio 0.2L 04/21/19 07:44: Arterial Blood pH 7.443, Arterial Blood Partial Pressure CO2 28.5L, Arterial Blood Partial Pressure O2 138.3H, Arterial Blood HCO3 19.1L, Arterial Blood Oxygen Saturation 98.4, Arterial Blood Base Excess -4.3L, Marlo Test Positive Height (Feet): 5 Height (Inches): 2.00 Weight (Pounds): 176 General Appearance: lethargic EENT: normal ENT inspection Neck: normal alignment Cardiovascular: normal peripheral pulses, normal rate, regular rhythm Respiratory/Chest: decreased breath sounds Abdomen: normal bowel sounds, non tender, soft Extremities: normal inspection Edema: no edema noted Arm (L), no edema noted Arm (R), no edema noted Leg (L), no edema noted Leg (R), no edema noted Pedal (L), no edema noted Pedal (R), no edema noted Generalized Jama Keating DO Apr 21, 2019 14:43
--- NOTE | 2019-04-21 15:00 | Hematology/Onc Progress Note ---
Assessment/Plan Assessment/Plan ASSESSMENT AND RECOMMENDATIONS # Anemia of chronic disease due to underlying chronic medical issues, multifactorial --> Anemia workup has been ordered and reviewed. --> Ferritin 274, iron 6, tibc 143 --> No evidence of hemolysis is noted, peripheral smear has been reviewed. --> Hgb goal >7. Transfuse prn. --> Epogen has been ordered --> Medications have been reviewed --> Stool OB positive, GI is following --> Hgb trend: 9.4-->9.8-->8.6-->7.6 --> Cont folic acid # Lung mass. First noted on CXR. --> Ct chest has been ordered and reviewed. CT reveals no mass. --> hold off on any tumor marker testing --> as per id and pulm eval, appreciate RECS # Leukocytosis/elevated white blood cell count, unspecified likely related to underlying sepsis due to pna confirmed by CT chest and CXR --> have reviewed peripheral smear and bandemia/neutrophilia noted --> continue antibiotics if they have been started by ID team --> monitor for resolution --> trend 25-->20-->15k-->16.3-->14.3-->12.1-->13.6 # Respiratory distress. BiPAP per Pulmonary. # Sepsis d/t pna and uti. --> Antibiotics per Infectious Disease. # Renal failure. Nephro is following, appreciate recs # Elevated troponin. Recs per cardiology # Malnutrition. --> Dietary to follow. The time this note is entered does not reflect the time the patient was examined. I greatly appreciate the consultation. Subjective ROS Limited/Unobtainable: Yes Hematologic/Lymphatic: Reports: anemia Allergies: Coded Allergies: No Known Allergies (Unverified , 04/12/19) Subjective 04/15: no events reported, no f/c, on abx, seen by id, pulm, hgb remains stable 04/16: Pt resting in bed, nonverbal. No distress noted. WBC remains elevated. Plan to transfer to [facility]. 04/18: Pt in ICU. CXR yesterday shows pna. H/H stable. On BiPAP. 04/20: Pt no signs of distress. ET in place confirmed by CXR 04/21: Pt remains in icu. CXR today shows Pulmonary edema. Pleural effusion suspected bilaterally. PEG cancelled per Dr. Gentile, rescheduled for tomorrow. CBC reviewed. Objective Objective Current Medications Medications (Trade) Dose Ordered Sig/Kenisha Route PRN Reason Start Time Stop Time Status Last Admin Dose Admin Acetaminophen (Tylenol) 650 mg Q4H PRN ORAL FEVER 04/17/19 12:36 05/17/19 12:35 Acetaminophen (Tylenol) 650 mg Q4H PRN RECTAL Fever 04/17/19 12:36 05/17/19 12:35 04/18/19 08:53 Albuterol/ Ipratropium (Albuterol/ Ipratropium) 3 ml Q4H PRN HHN Shortness of Breath 04/17/19 12:36 04/22/19 12:35 04/17/19 17:44 Chlorhexidine Gluconate (Izzy-Hex 2%) 1 applic DAILY@2000 TOPIC 04/20/19 20:00 05/20/19 19:59 04/20/19 19:37 Dextrose (Dextrose 50%) 25 ml Q30M PRN IV Hypoglycemia 04/17/19 12:45 05/12/19 19:44 Dextrose (Dextrose 50%) 50 ml Q30M PRN IV Hypoglycemia 04/17/19 12:45 05/12/19 19:44 Dextrose/Sodium Chloride 1,000 ml @ 75 mls/hr [id number] IV 04/21/19 10:45 05/21/19 10:44 04/21/19 11:20 Epoetin Bandar (Epoetin Bandar-EPBX(NON ESRD)) 10,000 unit FRI-FRI-FRI SUBQ 04/19/19 21:00 05/16/19 20:59 04/19/19 20:34 Folic Acid (Folate) 5 mg DAILY ORAL 04/22/19 09:00 05/19/19 08:59 Heparin Sodium/ Sodium Chloride (Heparin 1000 units/500ml Premix) 1,000 unit PRN PRN IV picc line placement 04/20/19 10:30 04/22/19 10:29 Hydralazine HCl (Apresoline) 10 mg Q2H PRN IV For High Blood Pressure 04/17/19 12:36 05/17/19 12:35 Insulin Aspart (NovoLOG) Q6HR SUBQ 04/20/19 18:00 05/20/19 17:59 04/21/19 11:21 Lidocaine HCl (Xylocaine 1% 30ml) 30 ml PRN PRN INJ picc line placement 04/20/19 10:30 04/22/19 10:29 Lorazepam (Ativan 2mg/ml 1ml) 2 mg Q4H PRN IV For Anxiety 04/20/19 11:00 04/27/19 10:59 Lorazepam (Ativan) 0.5 mg Q6H PRN ORAL For Anxiety 04/17/19 12:37 04/24/19 12:36 Meropenem 1 gm/ Sodium Chloride 55 ml @ 110 mls/hr Q12HR@1100,2300 IVPB 04/18/19 11:00 04/23/19 10:59 04/21/19 11:20 Midodrine (Pro-Amatine) 10 mg THREE TIMES A DAY NG 04/21/19 13:00 05/21/19 12:59 04/21/19 12:46 Morphine Sulfate (Morphine Sulfate) 4 mg Q4H PRN IVP For Pain 04/20/19 11:00 04/27/19 10:59 Ondansetron HCl (Zofran) 4 mg Q6H PRN IVP Nausea & Vomiting 04/17/19 12:37 05/17/19 12:36 Polyethylene Glycol (Miralax) 17 gm DAILYPRN PRN ORAL Constipation 04/17/19 12:37 05/17/19 12:36 Last 24 Hour Vital Signs Date Time Temp Pulse Resp B/P (MAP) Pulse Ox O2 Delivery O2 Flow Rate FiO2 04/21/19 14:00 82 17 132/63 (86) 100 04/21/19 13:15 74 18 55 04/21/19 13:00 91 17 110/63 (79) 100 04/21/19 12:00 55 04/21/19 12:00 Mechanical Ventilator 04/21/19 12:00 98.6 76 17 106/64 (78) 100 04/21/19 12:00 81 04/21/19 11:07 78 20 55 04/21/19 11:00 79 17 106/55 (72) 100 04/21/19 10:00 91 17 109/55 (73) 100 04/21/19 09:26 80 22 55 04/21/19 09:00 76 16 112/60 (77) 100 04/21/19 08:51 65 99/50 04/21/19 08:00 55 04/21/19 08:00 83 04/21/19 08:00 82 16 97/54 (68) 100 04/21/19 08:00 Mechanical Ventilator 04/21/19 07:00 98.9 81 16 110/70 (83) 100 04/21/19 06:57 Mechanical Ventilator 04/21/19 06:54 85 20 55 04/21/19 06:00 78 16 99/50 (66) 100 04/21/19 05:35 70 16 55 04/21/19 05:00 84 16 95/52 (66) 100 04/21/19 04:00 55 04/21/19 04:00 87 04/21/19 04:00 98.7 88 16 111/61 (78) 100 04/21/19 04:00 Mechanical Ventilator 04/21/19 03:26 93 16 55 04/21/19 03:00 88 16 108/58 (75) 100 04/21/19 02:00 88 16 98/60 (73) 100 04/21/19 01:29 91 16 55 04/21/19 01:00 94 16 95/58 (70) 100 04/21/19 00:00 87 04/21/19 00:00 Mechanical Ventilator 04/21/19 00:00 98.3 87 16 96/56 (69) 100 04/21/19 00:00 55 04/20/19 23:18 92 20 55 04/20/19 23:00 86 16 97/59 (72) 100 04/20/19 22:14 85 18 55 04/20/19 22:00 86 16 94/56 (69) 100 04/20/19 21:00 85 16 101/66 (78) 100 04/20/19 20:33 81 101/66 04/20/19 20:00 Mechanical Ventilator 04/20/19 20:00 86 04/20/19 20:00 55 04/20/19 20:00 98.8 86 16 91/64 (73) 100 04/20/19 19:33 Mechanical Ventilator 04/20/19 19:30 83 17 55 04/20/19 19:00 73 16 102/62 (75) 100 04/20/19 18:00 84 16 101/58 (72) 100 04/20/19 17:20 86 16 55 04/20/19 17:00 82 17 101/63 (76) 100 04/20/19 16:00 Mechanical Ventilator 04/20/19 16:00 84 04/20/19 16:00 98.7 84 16 105/58 (74) 100 04/20/19 16:00 45 04/20/19 15:39 81 16 55 04/20/19 15:00 82 17 93/59 (70) 100 04/20/19 14:00 79 17 91/58 (69) 100 04/20/19 13:05 82 16 55 04/20/19 13:00 98.9 80 17 96/55 (69) 100 04/20/19 12:00 45 04/20/19 12:00 Mechanical Ventilator 04/20/19 12:00 86 17 96/54 (68) 100 04/20/19 12:00 80 04/20/19 11:00 78 17 89/49 (62) 100 04/20/19 10:45 77 16 55 04/20/19 10:00 89 17 102/66 (78) 100 04/20/19 09:09 106 108/60 04/20/19 09:00 91 21 108/60 (76) 100 04/20/19 08:00 Bi-pap 04/20/19 08:00 35 04/20/19 08:00 74 04/20/19 08:00 87 21 107/64 (78) 100 04/20/19 07:00 86 17 103/64 (77) 100 04/20/19 06:45 82 17 100 Facial 35 04/20/19 06:45 Bi-Pap 04/20/19 06:00 87 18 124/57 (79) 100 04/20/19 05:29 86 18 100 Facial 35 04/20/19 05:00 80 20 109/66 (80) 100 04/20/19 04:00 98.7 87 20 120/80 (93) 100 04/20/19 04:00 35 04/20/19 04:00 Bi-pap 04/20/19 03:37 82 04/20/19 03:29 83 20 100 Facial 35 04/20/19 03:00 102 22 137/64 (88) 99 04/20/19 02:00 102 21 126/84 (98) 100 04/20/19 01:10 98 26 100 Facial 35 04/20/19 01:00 101 18 121/76 (91) 100 04/20/19 00:00 97.8 101 24 114/61 (78) 100 04/20/19 00:00 Bi-pap 04/20/19 00:00 35 04/19/19 23:10 88 23 100 Facial 35 04/19/19 23:03 104 04/19/19 23:00 92 18 114/63 (80) 100 04/19/19 22:00 97 20 115/54 (74) 98 04/19/19 21:00 97 20 105/65 (78) 99 04/19/19 20:51 95 24 95 Facial 35 04/19/19 20:33 98 107/58 04/19/19 20:00 35 04/19/19 20:00 98.7 95 23 107/42 (63) 99 04/19/19 20:00 Bi-pap 04/19/19 19:49 86 04/19/19 19:34 Bi-Pap 04/19/19 19:29 88 26 99 Facial 35 04/19/19 19:00 86 21 91/60 (70) 100 04/19/19 18:00 98 24 94/49 (64) 99 04/19/19 17:00 95 23 99/56 (70) 99 04/19/19 16:32 93 25 97 Facial 35 04/19/19 16:00 98.2 103 23 95/62 (73) 99 04/19/19 16:00 Bi-pap 04/19/19 16:00 35 04/19/19 16:00 106 04/19/19 15:01 105 26 98 Facial 35 04/19/19 15:00 100 23 93/42 (59) 100 Intake and Output 04/20/19 04/21/19 19:00 07:00 Intake Total 770 ml 700 ml Output Total 560 ml 225 ml Balance 210 ml 475 ml Intake Oral 0 ml Free Water 120 ml 100 ml IV Total 330 ml 360 ml Tube Feeding 320 ml 240 ml Output Urine Total 560 ml 225 ml # Bowel Movements 1 Labs Test 04/19/19 03:45 04/19/19 07:40 04/20/19 05:15 04/20/19 10:20 White Blood Count 12.6 K/UL (4.8-10.8) 12.1 K/UL (4.8-10.8) Red Blood Count 3.05 M/UL (4.20-5.40) 3.14 M/UL (4.20-5.40) Hemoglobin 8.6 G/DL (12.0-16.0) 8.6 G/DL (12.0-16.0) Hematocrit 26.2 % (37.0-47.0) 27.8 % (37.0-47.0) Mean Corpuscular Volume 86 FL (80-99) 89 FL (80-99) Mean Corpuscular Hemoglobin 28.1 PG (27.0-31.0) 27.4 PG (27.0-31.0) Mean Corpuscular Hemoglobin Concent 32.7 G/DL (32.0-36.0) 31.0 G/DL (32.0-36.0) Red Cell Distribution Width 14.6 % (11.6-14.8) 15.1 % (11.6-14.8) Platelet Count 205 K/UL (150-450) 195 K/UL (150-450) Mean Platelet Volume 8.4 FL (6.5-10.1) 7.1 FL (6.5-10.1) Neutrophils (%) (Auto) % (45.0-75.0) 84.2 % (45.0-75.0) Lymphocytes (%) (Auto) % (20.0-45.0) 7.2 % (20.0-45.0) Monocytes (%) (Auto) % (1.0-10.0) 7.2 % (1.0-10.0) Eosinophils (%) (Auto) % (0.0-3.0) 0.4 % (0.0-3.0) Basophils (%) (Auto) % (0.0-2.0) 1.1 % (0.0-2.0) Sodium Level 139 MMOL/L (136-145) 142 MMOL/L (136-145) Potassium Level 3.5 MMOL/L (3.5-5.1) 4.3 MMOL/L (3.5-5.1) Chloride Level 107 MMOL/L (98-107) 109 MMOL/L (98-107) Carbon Dioxide Level 19 MMOL/L (21-32) 17 MMOL/L (21-32) Anion Gap 14 mmol/L (5-15) 17 mmol/L (5-15) Blood Urea Nitrogen 34 mg/dL (7-18) 41 mg/dL (7-18) Creatinine 1.5 MG/DL (0.55-1.30) 1.8 MG/DL (0.55-1.30) Estimat Glomerular Filtration Rate mL/min (>60) mL/min (>60) Glucose Level 118 MG/DL (74-106) 142 MG/DL (74-106) Calcium Level 8.6 MG/DL (8.5-10.1) 8.9 MG/DL (8.5-10.1) Phosphorus Level 3.2 MG/DL (2.5-4.9) Magnesium Level 1.6 MG/DL (1.8-2.4) Total Bilirubin 0.3 MG/DL (0.2-1.0) Aspartate Amino Transf (AST/SGOT) 25 U/L (15-37) Alanine Aminotransferase (ALT/SGPT) 7 U/L (12-78) Alkaline Phosphatase 80 U/L (46-116) Total Protein 6.3 G/DL (6.4-8.2) Albumin 1.1 G/DL (3.4-5.0) Globulin 5.2 g/dL Albumin/Globulin Ratio 0.2 (1.0-2.7) Arterial Blood pH 7.340 (7.350-7.450) 7.296 (7.350-7.450) Arterial Blood Partial Pressure CO2 32.4 mmHg (35.0-45.0) 42.3 mmHg (35.0-45.0) Arterial Blood Partial Pressure O2 97.4 mmHg (75.0-100.0) 95.0 mmHg (75.0-100.0) Arterial Blood HCO3 17.1 mmol/L (22.0-26.0) 20.2 mmol/L (22.0-26.0) Arterial Blood Oxygen Saturation 97.0 % (95-100) 96.4 % (95-100) Arterial Blood Base Excess -7.8 (-2-2) -5.9 (-2-2) Marlo Test Positive Positive Vancomycin Level Trough 20.7 ug/mL (5.0-12.0) Test 04/20/19 13:05 04/21/19 05:00 04/21/19 07:44 Arterial Blood pH 7.436 (7.350-7.450) 7.443 (7.350-7.450) Arterial Blood Partial Pressure CO2 30.1 mmHg (35.0-45.0) 28.5 mmHg (35.0-45.0) Arterial Blood Partial Pressure O2 143.6 mmHg (75.0-100.0) 138.3 mmHg (75.0-100.0) Arterial Blood HCO3 19.8 mmol/L (22.0-26.0) 19.1 mmol/L (22.0-26.0) Arterial Blood Oxygen Saturation 98.8 % (95-100) 98.4 % (95-100) Arterial Blood Base Excess -3.7 (-2-2) -4.3 (-2-2) Marlo Test Positive Positive White Blood Count 13.6 K/UL (4.8-10.8) Red Blood Count 2.70 M/UL (4.20-5.40) Hemoglobin 7.6 G/DL (12.0-16.0) Hematocrit 23.0 % (37.0-47.0) Mean Corpuscular Volume 85 FL (80-99) Mean Corpuscular Hemoglobin 28.1 PG (27.0-31.0) Mean Corpuscular Hemoglobin Concent 32.8 G/DL (32.0-36.0) Red Cell Distribution Width 14.3 % (11.6-14.8) Platelet Count 182 K/UL (150-450) Mean Platelet Volume 8.3 FL (6.5-10.1) Neutrophils (%) (Auto) % (45.0-75.0) Lymphocytes (%) (Auto) % (20.0-45.0) Monocytes (%) (Auto) % (1.0-10.0) Eosinophils (%) (Auto) % (0.0-3.0) Basophils (%) (Auto) % (0.0-2.0) Differential Total Cells Counted 100 Neutrophils % (Manual) 84 % (45-75) Lymphocytes % (Manual) 13 % (20-45) Monocytes % (Manual) 2 % (1-10) Eosinophils % (Manual) 0 % (0-3) Basophils % (Manual) 1 % (0-2) Band Neutrophils 0 % (0-8) Platelet Estimate Adequate Platelet Morphology Normal Hypochromasia 3+ Anisocytosis 1+ Spherocytes 1+ Sodium Level 140 MMOL/L (136-145) Potassium Level 3.5 MMOL/L (3.5-5.1) Chloride Level 106 MMOL/L (98-107) Carbon Dioxide Level 22 MMOL/L (21-32) Anion Gap 12 mmol/L (5-15) Blood Urea Nitrogen 43 mg/dL (7-18) Creatinine 2.0 MG/DL (0.55-1.30) Estimat Glomerular Filtration Rate mL/min (>60) Glucose Level 152 MG/DL (74-106) Uric Acid 7.2 MG/DL (2.6-7.2) Calcium Level 8.5 MG/DL (8.5-10.1) Phosphorus Level 2.4 MG/DL (2.5-4.9) Magnesium Level 1.7 MG/DL (1.8-2.4) Total Bilirubin 0.2 MG/DL (0.2-1.0) Aspartate Amino Transf (AST/SGOT) 39 U/L (15-37) Alanine Aminotransferase (ALT/SGPT) 11 U/L (12-78) Alkaline Phosphatase 87 U/L (46-116) C-Reactive Protein, Quantitative 22.7 mg/dL (0.00-0.90) Pro-B-Type Natriuretic Peptide 9203 pg/mL (0-125) Total Protein 5.9 G/DL (6.4-8.2) Albumin 1.0 G/DL (3.4-5.0) Globulin 4.9 g/dL Albumin/Globulin Ratio 0.2 (1.0-2.7) Height (Feet): 5 Height (Inches): 2.00 Weight (Pounds): 176 Objective PHYSICAL EXAMINATION: GENERAL: BiPAP in place, sleeping in bed, slight short of breath. VITAL SIGNS: Have been reviewed CARDIOVASCULAR: No murmur. LUNGS: Poor exchange. TRACH++ ABDOMEN: Bowel sounds distant. EXTREMITIES: No cyanosis, clubbing, or edema. NEUROLOGIC: Patient is flaccid in bed, probably sedated. Kleynberg,Steven L. MD Apr 21, 2019 15:00
--- NOTE | 2019-04-21 15:00 | NUR ---
NURSE NOTES: Changed PICC line dressing
--- NOTE | 2019-04-21 15:47 | NUR ---
NURSE NOTES:WOUND CARE NOTES: Primary nurse reported noting wound L buttocks. Pt assessed with primary nurse present and noted to have partial thickness wound L buttocks with moisture denudement periwound . Base of wound moist and viable.Borders macerated .No exudate noted (L)3cm x (W)0.8cm. Pt noted to be on an APM/MARIA INES mattress overlay.NO other skin concerns noted. Recommendations: Apply Moisture Barrier Paste to L buttocks. Cover with Optifoam drsg. Change every 3 days and prn. Apply Mosture Barrier paste to sacrum and ilat ischail areas with each incontinence care. Apply Cavilon Skin BArrier to both heels. Cover each heel with Optifoam drsg. Change every 7 days and prn. APM/MARIA INES Mattress. Reposition at least every 2hours or as tolerated. Off-load heels with pillow
--- NOTE | 2019-04-21 16:34 | NUR ---
NURSE NOTES: Oral care given, turned and repositioned. thick yellow secretions noted on sxn.
--- NOTE | 2019-04-21 17:03 | NUR ---
DISCHARGE PLANNING FAXED REFERRAL TO [facility] PER REQUEST AND THEY WILL NOT ACCEPT PATIENT. ALSO SPOKE TO WILL FROM [facility] AND THEY WILL NOT APPROVE FOR PATIENT TO GO TO [facility]. DR. ALEJANDRA WAS INFORMED
--- NOTE | 2019-04-21 18:35 | NUR ---
NURSE NOTES: Turned and repositioned. Kept dry and clean. x1 bm noted. Dressing clean and intact.
--- NOTE | 2019-04-21 18:47 | Infectious Diseases Prog Note ---
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 PNA Pulmonary edema -04/19 CXR: There is less pulmonary edema compared to yesterday but with moderate residual edema. -04/16 CXR: . Right perihilar and bilateral lower lobe pulmonary consolidation concerning for pneumonia.Small bilateral pleural effusions. CXR - B/L Infiltrates Low grade fevers; improving WBCs up to 25; improving 04/16 Sp Cx - C. alb; 04/19 sp cx yeast so far -BCx NTD -legionella ag urine neg Widened mediastinum - right sided aortic arch CXR - Apparent upper mediastinal widening. Possibly due to ectatic vasculature and body habitus, but upper mediastinal mass also possible. Correlate with any prior adiographs and may be available, consider CT for further evaluation if clinically indicated CT 04/13/19 - Right-sided aortic arch, presumably accounting for the apparent upper mediastinal widening demonstrated on recent plain radiograph. No evidence of upper mediastinal mass. Extensive bilateral lower lobe consolidation , likely pneumonia, less extensive left upper lobe consolidation. 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 We will continue to follow the patient during this hospitalization. Subjective Allergies: Coded Allergies: No Known Allergies (Unverified , 04/12/19) Subjective afebrile >48hrs wbc improved Objective Vital Signs Last 24 Hour Vital Signs Date Time Temp Pulse Resp B/P (MAP) Pulse Ox O2 Delivery O2 Flow Rate FiO2 04/21/19 18:00 82 17 124/62 (82) 100 04/21/19 17:00 78 17 133/60 (84) 100 04/21/19 16:52 82 20 55 04/21/19 16:00 75 04/21/19 16:00 55 04/21/19 16:00 76 17 110/59 (76) 100 04/21/19 16:00 Mechanical Ventilator 04/21/19 15:10 78 20 55 04/21/19 15:00 82 16 143/59 (87) 100 04/21/19 14:00 82 17 132/63 (86) 100 04/21/19 13:15 74 18 55 04/21/19 13:00 91 17 110/63 (79) 100 04/21/19 12:00 55 04/21/19 12:00 Mechanical Ventilator 04/21/19 12:00 98.6 76 17 106/64 (78) 100 04/21/19 12:00 81 04/21/19 11:07 78 20 55 04/21/19 11:00 79 17 106/55 (72) 100 04/21/19 10:00 91 17 109/55 (73) 100 04/21/19 09:26 80 22 55 04/21/19 09:00 76 16 112/60 (77) 100 04/21/19 08:51 65 99/50 04/21/19 08:00 55 04/21/19 08:00 83 04/21/19 08:00 82 16 97/54 (68) 100 04/21/19 08:00 Mechanical Ventilator 04/21/19 07:00 98.9 81 16 110/70 (83) 100 04/21/19 06:57 Mechanical Ventilator 04/21/19 06:54 85 20 55 04/21/19 06:00 78 16 99/50 (66) 100 04/21/19 05:35 70 16 55 04/21/19 05:00 84 16 95/52 (66) 100 04/21/19 04:00 55 04/21/19 04:00 87 04/21/19 04:00 98.7 88 16 111/61 (78) 100 04/21/19 04:00 Mechanical Ventilator 04/21/19 03:26 93 16 55 04/21/19 03:00 88 16 108/58 (75) 100 04/21/19 02:00 88 16 98/60 (73) 100 04/21/19 01:29 91 16 55 04/21/19 01:00 94 16 95/58 (70) 100 04/21/19 00:00 87 04/21/19 00:00 Mechanical Ventilator 04/21/19 00:00 98.3 87 16 96/56 (69) 100 04/21/19 00:00 55 04/20/19 23:18 92 20 55 04/20/19 23:00 86 16 97/59 (72) 100 04/20/19 22:14 85 18 55 04/20/19 22:00 86 16 94/56 (69) 100 04/20/19 21:00 85 16 101/66 (78) 100 04/20/19 20:33 81 101/66 04/20/19 20:00 Mechanical Ventilator 04/20/19 20:00 86 04/20/19 20:00 55 04/20/19 20:00 98.8 86 16 91/64 (73) 100 04/20/19 19:33 Mechanical Ventilator 04/20/19 19:30 83 17 55 04/20/19 19:00 73 16 102/62 (75) 100 Height (Feet): 5 Height (Inches): 2.00 Weight (Pounds): 176 Objective Gen: Awake and talking HEENT: NCAT, MMM, EOMI LUNGS: CTAB, No W CARDS: RRR, S1, S2, No M/R/G, ABD: Soft, NT, ND Microbiology Date/Time Source Procedure Growth Status 04/19/19 14:00 Sputum Induced Gram Stain - Final Resulted 04/19/19 14:00 Sputum Culture - Preliminary YEAST Resulted Laboratory Tests Test 04/21/19 05:00 04/21/19 07:44 White Blood Count 13.6 K/UL (4.8-10.8) H Red Blood Count 2.70 M/UL (4.20-5.40) L Hemoglobin 7.6 G/DL (12.0-16.0) L Hematocrit 23.0 % (37.0-47.0) L Mean Corpuscular Volume 85 FL (80-99) Mean Corpuscular Hemoglobin 28.1 PG (27.0-31.0) Mean Corpuscular Hemoglobin Concent 32.8 G/DL (32.0-36.0) Red Cell Distribution Width 14.3 % (11.6-14.8) Platelet Count 182 K/UL (150-450) Mean Platelet Volume 8.3 FL (6.5-10.1) Neutrophils (%) (Auto) % (45.0-75.0) Lymphocytes (%) (Auto) % (20.0-45.0) Monocytes (%) (Auto) % (1.0-10.0) Eosinophils (%) (Auto) % (0.0-3.0) Basophils (%) (Auto) % (0.0-2.0) Differential Total Cells Counted 100 Neutrophils % (Manual) 84 % (45-75) H Lymphocytes % (Manual) 13 % (20-45) L Monocytes % (Manual) 2 % (1-10) Eosinophils % (Manual) 0 % (0-3) Basophils % (Manual) 1 % (0-2) Band Neutrophils 0 % (0-8) Platelet Estimate Adequate Platelet Morphology Normal Hypochromasia 3+ Anisocytosis 1+ Spherocytes 1+ Sodium Level 140 MMOL/L (136-145) Potassium Level 3.5 MMOL/L (3.5-5.1) Chloride Level 106 MMOL/L (98-107) Carbon Dioxide Level 22 MMOL/L (21-32) Anion Gap 12 mmol/L (5-15) Blood Urea Nitrogen 43 mg/dL (7-18) H Creatinine 2.0 MG/DL (0.55-1.30) H Estimat Glomerular Filtration Rate mL/min (>60) Glucose Level 152 MG/DL (74-106) H Uric Acid 7.2 MG/DL (2.6-7.2) Calcium Level 8.5 MG/DL (8.5-10.1) Phosphorus Level 2.4 MG/DL (2.5-4.9) L Magnesium Level 1.7 MG/DL (1.8-2.4) L Total Bilirubin 0.2 MG/DL (0.2-1.0) Aspartate Amino Transf (AST/SGOT) 39 U/L (15-37) H Alanine Aminotransferase (ALT/SGPT) 11 U/L (12-78) L Alkaline Phosphatase 87 U/L (46-116) C-Reactive Protein, Quantitative 22.7 mg/dL (0.00-0.90) H Pro-B-Type Natriuretic Peptide 9203 pg/mL (0-125) H Total Protein 5.9 G/DL (6.4-8.2) L Albumin 1.0 G/DL (3.4-5.0) L Globulin 4.9 g/dL Albumin/Globulin Ratio 0.2 (1.0-2.7) L Arterial Blood pH 7.443 (7.350-7.450) Arterial Blood Partial Pressure CO2 28.5 mmHg (35.0-45.0) L Arterial Blood Partial Pressure O2 138.3 mmHg (75.0-100.0) H Arterial Blood HCO3 19.1 mmol/L (22.0-26.0) L Arterial Blood Oxygen Saturation 98.4 % (95-100) Arterial Blood Base Excess -4.3 (-2-2) L Marlo Test Positive Current Medications Medications (Trade) Dose Ordered Sig/Kenisha Route PRN Reason Start Time Stop Time Status Last Admin Dose Admin Acetaminophen (Tylenol) 650 mg Q4H PRN ORAL FEVER 04/17/19 12:36 05/17/19 12:35 Acetaminophen (Tylenol) 650 mg Q4H PRN RECTAL Fever 04/17/19 12:36 05/17/19 12:35 04/18/19 08:53 Albuterol/ Ipratropium (Albuterol/ Ipratropium) 3 ml Q4H PRN HHN Shortness of Breath 04/17/19 12:36 04/22/19 12:35 04/17/19 17:44 Chlorhexidine Gluconate (Izzy-Hex 2%) 1 applic DAILY@2000 TOPIC 04/20/19 20:00 05/20/19 19:59 04/20/19 19:37 Dextrose (Dextrose 50%) 25 ml Q30M PRN IV Hypoglycemia 04/17/19 12:45 05/12/19 19:44 Dextrose (Dextrose 50%) 50 ml Q30M PRN IV Hypoglycemia 04/17/19 12:45 05/12/19 19:44 Dextrose/Sodium Chloride 1,000 ml @ 75 mls/hr [id number] IV 04/21/19 10:45 05/21/19 10:44 04/21/19 11:20 Epoetin Bandar (Epoetin Bandar-EPBX(NON ESRD)) 10,000 unit FRI-FRI-FRI SUBQ 04/19/19 21:00 05/16/19 20:59 04/19/19 20:34 Folic Acid (Folate) 5 mg DAILY ORAL 04/22/19 09:00 05/19/19 08:59 Heparin Sodium/ Sodium Chloride (Heparin 1000 units/500ml Premix) 1,000 unit PRN PRN IV picc line placement 04/20/19 10:30 04/22/19 10:29 Hydralazine HCl (Apresoline) 10 mg Q2H PRN IV For High Blood Pressure 04/17/19 12:36 05/17/19 12:35 Insulin Aspart (NovoLOG) Q6HR SUBQ 04/20/19 18:00 05/20/19 17:59 04/21/19 18:04 Lidocaine HCl (Xylocaine 1% 30ml) 30 ml PRN PRN INJ picc line placement 04/20/19 10:30 04/22/19 10:29 Lorazepam (Ativan 2mg/ml 1ml) 2 mg Q4H PRN IV For Anxiety 04/20/19 11:00 04/27/19 10:59 Lorazepam (Ativan) 0.5 mg Q6H PRN ORAL For Anxiety 04/17/19 12:37 04/24/19 12:36 Meropenem 1 gm/ Sodium Chloride 55 ml @ 110 mls/hr Q12HR@1100,2300 IVPB 04/18/19 11:00 04/23/19 10:59 04/21/19 11:20 Midodrine (Pro-Amatine) 10 mg THREE TIMES A DAY NG 04/21/19 13:00 05/21/19 12:59 04/21/19 18:03 Morphine Sulfate (Morphine Sulfate) 4 mg Q4H PRN IVP For Pain 04/20/19 11:00 04/27/19 10:59 Ondansetron HCl (Zofran) 4 mg Q6H PRN IVP Nausea & Vomiting 04/17/19 12:37 05/17/19 12:36 Polyethylene Glycol (Miralax) 17 gm DAILYPRN PRN ORAL Constipation 04/17/19 12:37 05/17/19 12:36 Cora Baer M.D. Apr 21, 2019 18:47
--- NOTE | 2019-04-21 19:10 | NUR ---
HAND-OFF: Report given to HORTENCIA Yun using SBAR.
--- NOTE | 2019-04-21 19:19 | NUR ---
RESPIRATORY NOTE: Pt received on vent settings of AC/VC 16, 500 VT, 55% FiO2, PEEP 5. Airway is patent and secure with anchorfast. Bilateral rhonchi breath sounds noted. Small, thick white/clear secretions noted upon suctioning. Vent is plugged into red outlet. Alarms are on and audible. Ambubag is present at bedside. No respiratory distress noted. Will continue to monitor.
--- NOTE | 2019-04-21 19:30 | Progress Note ---
DATE: 04/21/2019 SUBJECTIVE: This is a 79-year-old female patient with sepsis. She is confused and disorganized. She has mood lability. She has got no logical plan for own self-care. MENTAL STATUS EXAMINATION: The patient is a 79-year-old female with sepsis. Appearance is disheveled. Attitude, irritable and agitated. Affect guarded and restricted. Intellect poor. Mood depressed and anxious. Motor activity, psychomotor agitation. Attention span is poor. Orientation x2. Speech is pressured. Thought process, disorganized and illogical. Insight and judgment is poor DIAGNOSIS: Schizoaffective, bipolar type. PLAN: Continue her on Seroquel. A 20 minutes of reality-based supportive psychotherapy. A 20 minutes of cognitive behavioral therapy provided to help identify automatic negative thoughts and help her convert those negative thoughts to more positive thoughts to reduce depression, anxiety, and mood lability. Chart reviewed. Discussed with staff. Seen and assessed at bedside. Omar Glover M.D. DR: Lucina JOB#: [id number] CC:
--- NOTE | 2019-04-21 19:30 | NUR ---
NURSE NOTES: Recvd.eyes open does'nt follows command.(R)side Flaccid R/T Hx;CVA.Vent.orally intubated See settings.Lungs few scatt.Rh.Diminished BS at Bases.P.Ox.-100%.Suctioned,NS Lavaged.Pos.chg.IV Thera.in progress.NGT Feeding on.NPO After MN.Kenisha for poss.PEG in am.F/Cath patent small urinary drain. aware.
[2019-04-21] MEDS: Dyna-Hex 2% Top Sol 2oz TOPIC SCH (19:49)
[2019-04-21] MEDS: Epoetin Alfa-EPBX (NON ESRD)10,000 unit/ml vial SUBQ SCH (20:37)
--- NOTE | 2019-04-21 22:30 | NUR ---
NURSE NOTES: HS care rendered.Pos.to comfort.Suctioned.Due medical leader.
[2019-04-22] VITALS (27 sets, daily range): BP systolic 122–141; BP diastolic 60–86
[2019-04-22] MEDS: NovoLOG Insulin Flexpen SUBQ SCH ×5 (00:10→23:32)
[2019-04-22] MEDS: D5 1/2NS 1,000 ML IV SCH ×2 (00:10→13:25)
--- NOTE | 2019-04-22 00:15 | NUR ---
NURSE NOTES: NPO.Kenisha.for PEG in am.Cont.on IV Hydration.Repositioned Kept comfortable.Suctioned.Neuro status same.
--- NOTE | 2019-04-22 02:20 | NUR ---
NURSE NOTES: Pos. chg.Suctioned.Status same.Cont.Plan of care.
--- NOTE | 2019-04-22 04:27 | NUR ---
NURSE NOTES: marcio Murdock chg.Pos.to comfort.Suctioned.Lacy.Vent.Settings.Blood drawn for cbc/cmp and PT spec.to Lab.Maintain NPO for poss.PEG this am.
[2019-04-22 05:19] LABS: HEMOGLOBIN 7.1 G/DL (12.0-16.0); MEAN CORPUSCULAR VOLUME 85 FL (80-99); PLATELET COUNT 165 K/UL (150-450); RED BLOOD COUNT 2.59 M/UL (4.20-5.40); RED CELL DISTRIBUTION WIDTH 14.4 % (11.6-14.8); WHITE BLOOD COUNT 13.3 K/UL (4.8-10.8)
[2019-04-22 05:36] LABS: INR 1.1 (0.9-1.1)
[2019-04-22 06:07] LABS: ALANINE AMINOTRANSFERASE 16 U/L (12-78); ALBUMIN 1.5 G/DL (3.4-5.0); ALBUMIN/GLOBULIN RATIO 0.3 (1.0-2.7); ALKALINE PHOSPHATASE 79 U/L (46-116); ANION GAP 12 mmol/L (5-15); ASPARTATE AMINO TRANSFERASE 38 U/L (15-37); BILIRUBIN,TOTAL 0.3 MG/DL (0.2-1.0); BLOOD UREA NITROGEN 43 mg/dL (7-18); CALCIUM 8.5 MG/DL (8.5-10.1); CARBON DIOXIDE 20 MMOL/L (21-32); CHLORIDE 106 MMOL/L (98-107); CREATININE 1.8 MG/DL (0.55-1.30); PHOSPHORUS 2.2 MG/DL (2.5-4.9); POTASSIUM 3.6 MMOL/L (3.5-5.1); SODIUM 138 MMOL/L (136-145)
--- NOTE | 2019-04-22 06:44 | Anethesia Preoperative Eval ---
Anesthesia Pre-op PMH/ROS General Date of Evaluation: Apr 22, 2019 Time of Evaluation: 06:41 Anesthesiologist: sheila ASA Score: ASA 4 Mallampati Score Class I : Soft palate, uvula, fauces, pillars visible Class II: Soft palate, uvula, fauces visible Class III: Soft palate, base of uvula visible Class IV: Only hard plate visible Mallampati Classification: Class II Surgeon: ernestina Diagnosis: dysphagia Surgical Procedure: egd/peg Anesthesia History: none Family History: no anesthesia problems Allergies: Coded Allergies: No Known Allergies (Unverified , 04/12/19) Medications: see eMAR Patient NPO?: Yes NPO Date: Apr 20, 2019 NPO Time: 00:00 Past Medical History Cardiovascular: Reports: HTN, arrhythmia Pulmonary: Reports: other - respiratory failure Neurologic/Psychiatric: Reports: CVA, other - hemiplegia Endocrine: Reports: DM Hematology/Immune: Reports: other - sepsis Anesthesia Pre-op Phys. Exam Physician Exam Last Vital Signs Date Time Temp Pulse Resp B/P (MAP) Pulse Ox O2 Delivery O2 Flow Rate FiO2 04/22/19 06:00 78 16 127/63 (84) 100 04/22/19 04:59 55 04/22/19 04:00 Mechanical Ventilator 04/22/19 04:00 98.7 04/17/19 05:22 2.0 Constitutional: NAD Neurologic: other - hemiplegia Cardiovascular: RRR Respiratory: other - oett, mechanically ventilated Gastrointestinal: S/NT/ND Airway Exam Mallampati Score: Class II MO: limited Neck: flexible TMD: oett ROM: limited Anesthesia Pre-op A/P Labs Hematology Test 04/22/19 05:00 White Blood Count 13.3 K/UL (4.8-10.8) H Red Blood Count 2.59 M/UL (4.20-5.40) L Hemoglobin 7.1 G/DL (12.0-16.0) L Hematocrit 22.0 % (37.0-47.0) L Mean Corpuscular Volume 85 FL (80-99) Mean Corpuscular Hemoglobin 27.5 PG (27.0-31.0) Mean Corpuscular Hemoglobin Concent 32.3 G/DL (32.0-36.0) Red Cell Distribution Width 14.4 % (11.6-14.8) Platelet Count 165 K/UL (150-450) Mean Platelet Volume 8.0 FL (6.5-10.1) Neutrophils (%) (Auto) % (45.0-75.0) Lymphocytes (%) (Auto) % (20.0-45.0) Monocytes (%) (Auto) % (1.0-10.0) Eosinophils (%) (Auto) % (0.0-3.0) Basophils (%) (Auto) % (0.0-2.0) Neutrophils % (Manual) Pending Lymphocytes % (Manual) Pending Platelet Estimate Pending Platelet Morphology Pending Coagulation Test 04/22/19 05:00 Prothrombin Time 12.0 SEC (9.30-11.50) H Prothromb Time International Ratio 1.1 (0.9-1.1) Chemistry Test 04/22/19 05:00 Sodium Level 138 MMOL/L (136-145) Potassium Level 3.6 MMOL/L (3.5-5.1) Chloride Level 106 MMOL/L (98-107) Carbon Dioxide Level 20 MMOL/L (21-32) L Anion Gap 12 mmol/L (5-15) Blood Urea Nitrogen 43 mg/dL (7-18) H Creatinine 1.8 MG/DL (0.55-1.30) H Estimat Glomerular Filtration Rate mL/min (>60) Glucose Level 184 MG/DL (74-106) H Calcium Level 8.5 MG/DL (8.5-10.1) Phosphorus Level 2.2 MG/DL (2.5-4.9) L Magnesium Level 2.2 MG/DL (1.8-2.4) Total Bilirubin 0.3 MG/DL (0.2-1.0) Aspartate Amino Transf (AST/SGOT) 38 U/L (15-37) H Alanine Aminotransferase (ALT/SGPT) 16 U/L (12-78) Alkaline Phosphatase 79 U/L (46-116) Total Protein 6.1 G/DL (6.4-8.2) L Albumin 1.5 G/DL (3.4-5.0) L Globulin 4.6 g/dL Albumin/Globulin Ratio 0.3 (1.0-2.7) L Risk Assessment & Plan Assessment: asa4 Plan: mac Status Change Before Surgery: No Pre-Antibiotics Drug: zosyn 1gm Given Within 1 Hr of Incision: Yes Time Given: 06:44 Rohini Lara MD Apr 22, 2019 06:44
[2019-04-22] MEDS ORDERED: fentaNYL 100 mcg/2 mL IV PRN (06:45)
[2019-04-22] MEDS ORDERED: DiphenhydrAMINE 50mg/ml Inj IVP PRN (06:45)
[2019-04-22] MEDS ORDERED: Midazolam 2mg/2ml Inj IVP PRN (06:45)
[2019-04-22] MEDS ORDERED: Atropine Inj 1mg/10ml Syr IV PRN (06:45)
[2019-04-22] MEDS ORDERED: Lidocaine 1% MPF 10mg/ml 5ml ONE (07:00)
[2019-04-22] MEDS ORDERED: Propofol 200mg/20ml IV ONE (07:00)
--- NOTE | 2019-04-22 07:00 | Pre-Procedure Note/Attestation ---
Pre-Procedure Note/Attestation Complete Prior to Procedure Planned Procedure: not applicable Procedure Narrative: egd/peg Indications for Procedure Pre-Operative Diagnosis: dysphagia Attestation I attest that I discussed the nature of the procedure; its benefits; risks and complications; and alternatives (and the risks and benefits of such alternatives ), prior to the procedure, with the patient (or the patient's legal phlebotomy services representative). I attest that, if there was a reasonable possibility of needing a blood transfusion, the patient (or the patient's legal phlebotomy services representative) was given the [facility] standardized written summary, pursuant to the Romulo Murali Blood Safety Act ([place] Health and Safety Code # 1645, as amended). I attest that I re-evaluated the patient just prior to the surgery and that there has been no change in the patient's H&P, except as documented below: Darron Gentile MD Apr 22, 2019 07:00
[2019-04-22] MEDS ORDERED: NS 500ML IVPB ONE (07:05)
--- NOTE | 2019-04-22 07:16 | Endoscopy Procedure Note ---
Endoscopy Procedure Note General Indication for Procedure: dysphagia Procedures Performed: EGD, PEG Operative Findings/Diagnosis: same Specimen: yes Pt Tolerated Procedure Well: Yes Estimated Blood Loss: none Anesthesia Anesthesiologist: carol Anesthesia: MAC Inserted Devices Implant(s) used?: No GI Core Measures 50 yrs or older w/o bx or poly: Not Applicable 10yrs. F/U recommended: Not Applicable Darron Gentile MD Apr 22, 2019 07:16
--- NOTE | 2019-04-22 07:25 | NUR ---
NURSE NOTES: Received pt from [facility]. S/P PEG this morning by Dr. Gentile. Patient is awake and calm, no signs of distress. Orally intubated ETT 7.5/23cm at lip line, Vent settings AC 16/TV 500/FIo2 45%/PEEP 5. Rhonchi heard bilateral breath sounds. Soft wrist restraints applied to left wrist only. Right sided hemiplegic. SUZIE PICC asymptomatic running D51/2NS@75ml/hr. FC draining to gravity. Bed locked, alarmed and in lowest position.
--- NOTE | 2019-04-22 08:18 | NUR ---
RADIOLOGY DEPT., CHEST X-RAY DONE.-P.DYE
--- NOTE | 2019-04-22 08:45 | NUR ---
NURSE NOTES: Notified Dr. Norton Hgb=7.1, received orders for x1 PRBC. Type and screen ordered. Consent signed from previous transfusion.
[2019-04-22] MEDS: Midodrine 10mg tab NG SCH ×3 (08:53→18:00)
[2019-04-22] MEDS ORDERED: Potassium Phosphate 20 MM in NS 275 ML IV SCH (09:00)
[2019-04-22] MEDS ORDERED: Vancomycin 1gm in D5W 275ml IVPB SCH (09:00)
--- NOTE | 2019-04-22 09:06 | Immediate Post-Op Evaluation ---
Immediate Post-Op Evalulation Immediate Post-Op Evalulation Procedure: egd/peg/bx Date of Evaluation: Apr 22, 2019 Time of Evaluation: 07:37 IV Fluids: 100ml 0.9ns Blood Products: none Estimated Blood Loss: neglgible Blood Pressure Systolic: 127 Blood Pressure Diastolic: 62 Pulse Rate: 85 Respiratory Rate: 16 O2 Sat by Pulse Oximetry: 100 Temperature (Fahrenheit): 98.7 Pain Score (1-10): 0 Nausea: No Vomiting: No Complications none Patient Status: awake, reacts, patent, ventilated Hydration Status: adequate Drug: zosyn 1gm Given Within 1 Hr of Incision: Yes Time Given: 06:44 Rohini Lara MD Apr 22, 2019 09:06
--- NOTE | 2019-04-22 09:08 | 48 Hour Post Anesthesia Eval ---
Post Anesthesia Evaluation Procedure: egd/peg/bx Date of Evaluation: Apr 22, 2019 Time of Evaluation: 09:07 Blood Pressure Systolic: 127 0: 63 Pulse Rate: 85 Respiratory Rate: 16 Temperature (Fahrenheit): 98.7 O2 Sat by Pulse Oximetry: 100 Airway: patent Nausea: No Vomiting: No Pain Intensity: 0 Hydration Status: adequate Cardiopulmonary Status: stable Mental Status/LOC: patient returned to baseline Post-Anesthesia Complications: none Follow-up care needed: N/A Rohini Lara MD Apr 22, 2019 09:08
--- NOTE | 2019-04-22 09:38 | Cardiac Electrophysiology PN ---
Assessment/Plan Assessment/Plan 1. Atrial flutter, self terminated. Off Lopressor for low BP 2. Hypotension. On Midodrine 10 tid 3. Coronary artery disease. On Plavix 75 mg daily 4. Respiratory failure, intubated 5. Sepsis. White count 25,000. On IV abx 6. Anemia.S/P PRBC 7. Renal failure. Getting hydration by Dr. Spivey 8. Dysphagia. S/P PEG today 9. History of CVA with hemiplegia. 10. Nonverbal status. 11. Full code DW RN Subjective Subjective Intubated in ICU.S/P PEG today. No atrial flutter overnight. Off pressors Objective Last 24 Hour Vital Signs Date Time Temp Pulse Resp B/P (MAP) Pulse Ox O2 Delivery O2 Flow Rate FiO2 04/22/19 09:08 85 16 100 04/22/19 09:06 85 16 100 04/22/19 08:53 88 22 45 04/22/19 08:00 Mechanical Ventilator 04/22/19 08:00 45 04/22/19 07:25 84 20 100 Mechanical Ventilator 100 04/22/19 07:25 94 24 45 04/22/19 06:00 78 16 127/63 (84) 100 04/22/19 05:00 84 18 130/76 (94) 100 04/22/19 04:59 81 18 55 04/22/19 04:00 Mechanical Ventilator 04/22/19 04:00 55 04/22/19 04:00 98.7 94 20 133/66 (88) 100 04/22/19 04:00 94 04/22/19 03:14 75 16 55 04/22/19 03:00 85 18 133/70 (91) 100 04/22/19 02:00 79 16 124/60 (81) 100 04/22/19 01:24 76 16 55 04/22/19 01:00 79 16 126/62 (83) 100 04/22/19 00:00 98.4 83 16 124/63 (83) 100 04/22/19 00:00 83 04/22/19 00:00 55 04/22/19 00:00 Mechanical Ventilator 04/21/19 23:24 78 16 55 04/21/19 23:00 82 16 120/65 (83) 100 04/21/19 22:00 86 17 123/60 (81) 100 04/21/19 21:24 78 20 55 04/21/19 21:00 80 16 130/59 (82) 100 04/21/19 20:00 80 04/21/19 20:00 55 04/21/19 20:00 98.7 80 17 109/57 (74) 100 04/21/19 20:00 Mechanical Ventilator 04/21/19 19:19 80 17 55 04/21/19 19:00 88 17 125/52 (76) 100 04/21/19 18:00 82 17 124/62 (82) 100 04/21/19 17:00 78 17 133/60 (84) 100 04/21/19 16:52 82 20 55 04/21/19 16:00 75 04/21/19 16:00 55 04/21/19 16:00 76 17 110/59 (76) 100 04/21/19 16:00 Mechanical Ventilator 04/21/19 15:10 78 20 55 04/21/19 15:00 82 16 143/59 (87) 100 04/21/19 14:00 82 17 132/63 (86) 100 04/21/19 13:15 74 18 55 04/21/19 13:00 91 17 110/63 (79) 100 04/21/19 12:00 55 04/21/19 12:00 Mechanical Ventilator 04/21/19 12:00 98.6 76 17 106/64 (78) 100 04/21/19 12:00 81 04/21/19 11:07 78 20 55 04/21/19 11:00 79 17 106/55 (72) 100 04/21/19 10:00 91 17 109/55 (73) 100 Intake and Output 04/21/19 04/22/19 18:59 06:59 Intake Total 445 ml 1020 ml Output Total 190 ml 435 ml Balance 255 ml 585 ml Intake Oral 0 ml 0 ml Free Water 150 ml IV Total 90 ml 805 ml Tube Feeding 205 ml 215 ml Output Urine Total 190 ml 435 ml # Bowel Movements 3 3 Laboratory Tests Test 04/22/19 05:00 04/22/19 06:42 White Blood Count 13.3 K/UL (4.8-10.8) H Red Blood Count 2.59 M/UL (4.20-5.40) L Hemoglobin 7.1 G/DL (12.0-16.0) L Hematocrit 22.0 % (37.0-47.0) L Mean Corpuscular Volume 85 FL (80-99) Mean Corpuscular Hemoglobin 27.5 PG (27.0-31.0) Mean Corpuscular Hemoglobin Concent 32.3 G/DL (32.0-36.0) Red Cell Distribution Width 14.4 % (11.6-14.8) Platelet Count 165 K/UL (150-450) Mean Platelet Volume 8.0 FL (6.5-10.1) Neutrophils (%) (Auto) % (45.0-75.0) Lymphocytes (%) (Auto) % (20.0-45.0) Monocytes (%) (Auto) % (1.0-10.0) Eosinophils (%) (Auto) % (0.0-3.0) Basophils (%) (Auto) % (0.0-2.0) Differential Total Cells Counted 100 Neutrophils % (Manual) 89 % (45-75) H Lymphocytes % (Manual) 7 % (20-45) L Monocytes % (Manual) 2 % (1-10) Eosinophils % (Manual) 0 % (0-3) Basophils % (Manual) 0 % (0-2) Band Neutrophils 2 % (0-8) Platelet Estimate Adequate Platelet Morphology Normal Hypochromasia 1+ Anisocytosis 1+ Prothrombin Time 12.0 SEC (9.30-11.50) H Prothromb Time International Ratio 1.1 (0.9-1.1) Sodium Level 138 MMOL/L (136-145) Potassium Level 3.6 MMOL/L (3.5-5.1) Chloride Level 106 MMOL/L (98-107) Carbon Dioxide Level 20 MMOL/L (21-32) L Anion Gap 12 mmol/L (5-15) Blood Urea Nitrogen 43 mg/dL (7-18) H Creatinine 1.8 MG/DL (0.55-1.30) H Estimat Glomerular Filtration Rate mL/min (>60) Glucose Level 184 MG/DL (74-106) H Calcium Level 8.5 MG/DL (8.5-10.1) Phosphorus Level 2.2 MG/DL (2.5-4.9) L Magnesium Level 2.2 MG/DL (1.8-2.4) Total Bilirubin 0.3 MG/DL (0.2-1.0) Aspartate Amino Transf (AST/SGOT) 38 U/L (15-37) H Alanine Aminotransferase (ALT/SGPT) 16 U/L (12-78) Alkaline Phosphatase 79 U/L (46-116) Total Protein 6.1 G/DL (6.4-8.2) L Albumin 1.5 G/DL (3.4-5.0) L Globulin 4.6 g/dL Albumin/Globulin Ratio 0.3 (1.0-2.7) L Arterial Blood pH 7.425 (7.350-7.450) Arterial Blood Partial Pressure CO2 28.9 mmHg (35.0-45.0) L Arterial Blood Partial Pressure O2 107.3 mmHg (75.0-100.0) H Arterial Blood HCO3 18.5 mmol/L (22.0-26.0) L Arterial Blood Oxygen Saturation 97.6 % (95-100) Arterial Blood Base Excess -5.2 (-2-2) L Marlo Test Positive Microbiology Date/Time Source Procedure Growth Status 04/19/19 14:00 Sputum Induced Gram Stain - Final Complete 04/19/19 14:00 Sputum Culture - Final Sugar Albicans Complete Objective HEAD AND NECK: No JVD. On BIPAP LUNGS: Coarse rhonchi bilaterally. CARDIOVASCULAR: Regular S1 and S2 with no gallop. ABDOMEN: Soft.PEG in place EXTREMITIES: No pitting edema. Claude Pena MD Apr 22, 2019 09:38
--- NOTE | 2019-04-22 09:42 | Hematology/Onc Progress Note ---
Assessment/Plan Assessment/Plan ASSESSMENT AND RECOMMENDATIONS # Anemia of chronic disease due to underlying chronic medical issues, multifactorial --> Anemia workup has been ordered and reviewed. --> Ferritin 274, iron 6, tibc 143 --> No evidence of hemolysis is noted, peripheral smear has been reviewed. --> Hgb goal >7. Transfuse prn. --> Epogen has been ordered --> Medications have been reviewed --> Stool OB positive, GI is following --> S/P egd/peg/bx on 04/22. --> Hgb trend: 9.4-->9.8-->8.6-->7.6-->7.1 --> Cont folic acid --> BLood tx: 04/22 # Lung mass. First noted on CXR. --> Ct chest has been ordered and reviewed. CT reveals no mass. --> hold off on any tumor marker testing --> as per id and pulm eval, appreciate RECS # Leukocytosis/elevated white blood cell count, unspecified likely related to underlying sepsis due to pna confirmed by CT chest and CXR --> have reviewed peripheral smear and bandemia/neutrophilia noted --> continue antibiotics if they have been started by ID team --> monitor for resolution --> trend 25-->20-->15k-->16.3-->14.3-->12.1-->13.6--13.3 # Respiratory distress. BiPAP per Pulmonary. # Sepsis d/t pna and uti. --> Antibiotics per Infectious Disease. # Renal failure. Nephro is following, appreciate recs # Elevated troponin. Recs per cardiology # Malnutrition. --> Dietary to follow. The time this note is entered does not reflect the time the patient was examined. I greatly appreciate the consultation. Subjective ROS Limited/Unobtainable: Yes Hematologic/Lymphatic: Reports: anemia Allergies: Coded Allergies: No Known Allergies (Unverified , 04/12/19) Subjective 04/15: no events reported, no f/c, on abx, seen by id, pulm, hgb remains stable 04/16: Pt resting in bed, nonverbal. No distress noted. WBC remains elevated. Plan to transfer to [facility]. 04/18: Pt in ICU. CXR yesterday shows pna. H/H stable. On BiPAP. 04/20: Pt no signs of distress. ET in place confirmed by CXR 04/21: Pt remains in icu. CXR today shows Pulmonary edema. Pleural effusion suspected bilaterally. PEG cancelled per Dr. Gentile, rescheduled for tomorrow. CBC reviewed. 04/22: Remains in ICU. S/P egd/peg/bx. Hgb at 7.1, blood tx ordered. Objective Objective Current Medications Medications (Trade) Dose Ordered Sig/Kenisha Route PRN Reason Start Time Stop Time Status Last Admin Dose Admin Acetaminophen (Tylenol) 650 mg Q4H PRN ORAL FEVER 04/17/19 12:36 05/17/19 12:35 Acetaminophen (Tylenol) 650 mg Q4H PRN RECTAL Fever 04/17/19 12:36 05/17/19 12:35 04/18/19 08:53 Al Hydroxide/Mg Hydroxide (Mylanta) 15 ml Q1H PRN ORAL gi upset 04/22/19 06:45 04/22/19 18:00 Albuterol/ Ipratropium (Albuterol/ Ipratropium) 3 ml Q4H PRN HHN Shortness of Breath 04/17/19 12:36 04/22/19 12:35 04/17/19 17:44 Atropine Sulfate (Atropine) 0.5 mg Q5M PRN IV bpm less than 45 04/22/19 06:45 04/22/19 18:00 Chlorhexidine Gluconate (Izzy-Hex 2%) 1 applic DAILY@2000 TOPIC 04/20/19 20:00 05/20/19 19:59 04/21/19 19:49 Dextrose (Dextrose 50%) 25 ml Q30M PRN IV Hypoglycemia 04/17/19 12:45 05/12/19 19:44 Dextrose (Dextrose 50%) 50 ml Q30M PRN IV Hypoglycemia 04/17/19 12:45 05/12/19 19:44 Dextrose/Sodium Chloride 1,000 ml @ 75 mls/hr [id number] IV 04/21/19 10:45 05/21/19 10:44 04/22/19 00:10 Diphenhydramine HCl (Benadryl) 25 mg Q15M PRN IVP Itching 04/22/19 06:45 04/22/19 18:00 Epoetin Bandar (Epoetin Bandar-EPBX(NON ESRD)) 10,000 unit FRI-FRI-FRI SUBQ 04/19/19 21:00 05/16/19 20:59 04/21/19 20:37 Fentanyl Citrate (Sublimaze 100 mcg/2 mL) 25 mcg Q10M PRN IV Moderate Pain (Pain Scale 4-6) 04/22/19 06:45 04/22/19 18:00 Folic Acid (Folate) 5 mg DAILY ORAL 04/22/19 09:00 05/19/19 08:59 04/22/19 08:53 Heparin Sodium/ Sodium Chloride (Heparin 1000 units/500ml Premix) 1,000 unit PRN PRN IV picc line placement 04/20/19 10:30 04/22/19 10:29 Hydralazine HCl (Apresoline) 5 mg Q30M PRN IV SBP>160 OR___/DBP>90 OR___ 04/22/19 06:45 04/22/19 18:00 Hydralazine HCl (Apresoline) 10 mg Q2H PRN IV For High Blood Pressure 04/17/19 12:36 05/17/19 12:35 Insulin Aspart (NovoLOG) Q6HR SUBQ 04/20/19 18:00 05/20/19 17:59 04/22/19 06:17 Lansoprazole (Prevacid) 30 mg DAILY GT 04/22/19 09:00 05/22/19 08:59 04/22/19 08:53 Lidocaine HCl (Xylocaine 1% 30ml) 30 ml PRN PRN INJ picc line placement 04/20/19 10:30 04/22/19 10:29 Lorazepam (Ativan 2mg/ml 1ml) 2 mg Q4H PRN IV For Anxiety 04/20/19 11:00 04/27/19 10:59 Lorazepam (Ativan) 0.5 mg Q6H PRN ORAL For Anxiety 04/17/19 12:37 04/24/19 12:36 Meropenem 1 gm/ Sodium Chloride 55 ml @ 110 mls/hr Q12HR@1100,2300 IVPB 04/18/19 11:00 04/23/19 10:59 04/21/19 23:00 Midazolam HCl (Versed 2mg/2ml vial) 1 mg Q15M PRN IVP For Anxiety 04/22/19 06:45 04/22/19 18:00 Midodrine (Pro-Amatine) 10 mg THREE TIMES A DAY NG 04/21/19 13:00 05/21/19 12:59 04/22/19 08:53 Morphine Sulfate (Morphine Sulfate) 4 mg Q4H PRN IVP For Pain 04/20/19 11:00 04/27/19 10:59 Ondansetron HCl (Zofran) 4 mg Q1H PRN IVP Nausea & Vomiting 04/22/19 06:45 04/22/19 18:00 Ondansetron HCl (Zofran) 4 mg Q6H PRN IVP Nausea & Vomiting 04/17/19 12:37 05/17/19 12:36 Polyethylene Glycol (Miralax) 17 gm DAILYPRN PRN ORAL Constipation 04/17/19 12:37 05/17/19 12:36 Potassium Phosphate 20 mm/ Sodium Chloride 281.6667 ml @ 46.944 m... ONCE IV 04/22/19 09:00 04/22/19 15:00 04/22/19 08:53 Last 24 Hour Vital Signs Date Time Temp Pulse Resp B/P (MAP) Pulse Ox O2 Delivery O2 Flow Rate FiO2 04/22/19 09:08 85 16 100 04/22/19 09:06 85 16 100 04/22/19 08:53 88 22 45 04/22/19 08:00 Mechanical Ventilator 04/22/19 08:00 45 04/22/19 07:25 84 20 100 Mechanical Ventilator 100 04/22/19 07:25 94 24 45 04/22/19 06:00 78 16 127/63 (84) 100 04/22/19 05:00 84 18 130/76 (94) 100 04/22/19 04:59 81 18 55 04/22/19 04:00 Mechanical Ventilator 04/22/19 04:00 55 04/22/19 04:00 98.7 94 20 133/66 (88) 100 04/22/19 04:00 94 04/22/19 03:14 75 16 55 04/22/19 03:00 85 18 133/70 (91) 100 04/22/19 02:00 79 16 124/60 (81) 100 04/22/19 01:24 76 16 55 04/22/19 01:00 79 16 126/62 (83) 100 04/22/19 00:00 98.4 83 16 124/63 (83) 100 04/22/19 00:00 83 04/22/19 00:00 55 04/22/19 00:00 Mechanical Ventilator 04/21/19 23:24 78 16 55 04/21/19 23:00 82 16 120/65 (83) 100 04/21/19 22:00 86 17 123/60 (81) 100 04/21/19 21:24 78 20 55 04/21/19 21:00 80 16 130/59 (82) 100 04/21/19 20:00 80 04/21/19 20:00 55 04/21/19 20:00 98.7 80 17 109/57 (74) 100 04/21/19 20:00 Mechanical Ventilator 04/21/19 19:19 80 17 55 04/21/19 19:00 88 17 125/52 (76) 100 04/21/19 18:00 82 17 124/62 (82) 100 04/21/19 17:00 78 17 133/60 (84) 100 04/21/19 16:52 82 20 55 04/21/19 16:00 75 04/21/19 16:00 55 04/21/19 16:00 76 17 110/59 (76) 100 04/21/19 16:00 Mechanical Ventilator 04/21/19 15:10 78 20 55 04/21/19 15:00 82 16 143/59 (87) 100 04/21/19 14:00 82 17 132/63 (86) 100 04/21/19 13:15 74 18 55 04/21/19 13:00 91 17 110/63 (79) 100 04/21/19 12:00 55 04/21/19 12:00 Mechanical Ventilator 04/21/19 12:00 98.6 76 17 106/64 (78) 100 04/21/19 12:00 81 04/21/19 11:07 78 20 55 04/21/19 11:00 79 17 106/55 (72) 100 04/21/19 10:00 91 17 109/55 (73) 100 04/21/19 09:26 80 22 55 04/21/19 09:00 76 16 112/60 (77) 100 04/21/19 08:51 65 99/50 04/21/19 08:00 55 04/21/19 08:00 83 04/21/19 08:00 82 16 97/54 (68) 100 04/21/19 08:00 Mechanical Ventilator 04/21/19 07:00 98.9 81 16 110/70 (83) 100 04/21/19 06:57 Mechanical Ventilator 04/21/19 06:54 85 20 55 04/21/19 06:00 78 16 99/50 (66) 100 04/21/19 05:35 70 16 55 04/21/19 05:00 84 16 95/52 (66) 100 04/21/19 04:00 55 04/21/19 04:00 87 04/21/19 04:00 98.7 88 16 111/61 (78) 100 04/21/19 04:00 Mechanical Ventilator 04/21/19 03:26 93 16 55 04/21/19 03:00 88 16 108/58 (75) 100 04/21/19 02:00 88 16 98/60 (73) 100 04/21/19 01:29 91 16 55 04/21/19 01:00 94 16 95/58 (70) 100 04/21/19 00:00 87 04/21/19 00:00 Mechanical Ventilator 04/21/19 00:00 98.3 87 16 96/56 (69) 100 04/21/19 00:00 55 04/20/19 23:18 92 20 55 04/20/19 23:00 86 16 97/59 (72) 100 04/20/19 22:14 85 18 55 04/20/19 22:00 86 16 94/56 (69) 100 04/20/19 21:00 85 16 101/66 (78) 100 04/20/19 20:33 81 101/66 04/20/19 20:00 Mechanical Ventilator 04/20/19 20:00 86 04/20/19 20:00 55 04/20/19 20:00 98.8 86 16 91/64 (73) 100 04/20/19 19:33 Mechanical Ventilator 04/20/19 19:30 83 17 55 04/20/19 19:00 73 16 102/62 (75) 100 04/20/19 18:00 84 16 101/58 (72) 100 04/20/19 17:20 86 16 55 04/20/19 17:00 82 17 101/63 (76) 100 04/20/19 16:00 Mechanical Ventilator 04/20/19 16:00 84 04/20/19 16:00 98.7 84 16 105/58 (74) 100 04/20/19 16:00 45 04/20/19 15:39 81 16 55 04/20/19 15:00 82 17 93/59 (70) 100 04/20/19 14:00 79 17 91/58 (69) 100 04/20/19 13:05 82 16 55 04/20/19 13:00 98.9 80 17 96/55 (69) 100 04/20/19 12:00 45 04/20/19 12:00 Mechanical Ventilator 04/20/19 12:00 86 17 96/54 (68) 100 04/20/19 12:00 80 04/20/19 11:00 78 17 89/49 (62) 100 04/20/19 10:45 77 16 55 04/20/19 10:00 89 17 102/66 (78) 100 Intake and Output 04/21/19 04/22/19 18:59 06:59 Intake Total 445 ml 1020 ml Output Total 190 ml 435 ml Balance 255 ml 585 ml Intake Oral 0 ml 0 ml Free Water 150 ml IV Total 90 ml 805 ml Tube Feeding 205 ml 215 ml Output Urine Total 190 ml 435 ml # Bowel Movements 3 3 Labs Test 04/20/19 05:15 04/20/19 10:20 04/20/19 13:05 04/21/19 05:00 White Blood Count 12.1 K/UL (4.8-10.8) 13.6 K/UL (4.8-10.8) Red Blood Count 3.14 M/UL (4.20-5.40) 2.70 M/UL (4.20-5.40) Hemoglobin 8.6 G/DL (12.0-16.0) 7.6 G/DL (12.0-16.0) Hematocrit 27.8 % (37.0-47.0) 23.0 % (37.0-47.0) Mean Corpuscular Volume 89 FL (80-99) 85 FL (80-99) Mean Corpuscular Hemoglobin 27.4 PG (27.0-31.0) 28.1 PG (27.0-31.0) Mean Corpuscular Hemoglobin Concent 31.0 G/DL (32.0-36.0) 32.8 G/DL (32.0-36.0) Red Cell Distribution Width 15.1 % (11.6-14.8) 14.3 % (11.6-14.8) Platelet Count 195 K/UL (150-450) 182 K/UL (150-450) Mean Platelet Volume 7.1 FL (6.5-10.1) 8.3 FL (6.5-10.1) Neutrophils (%) (Auto) 84.2 % (45.0-75.0) % (45.0-75.0) Lymphocytes (%) (Auto) 7.2 % (20.0-45.0) % (20.0-45.0) Monocytes (%) (Auto) 7.2 % (1.0-10.0) % (1.0-10.0) Eosinophils (%) (Auto) 0.4 % (0.0-3.0) % (0.0-3.0) Basophils (%) (Auto) 1.1 % (0.0-2.0) % (0.0-2.0) Sodium Level 142 MMOL/L (136-145) 140 MMOL/L (136-145) Potassium Level 4.3 MMOL/L (3.5-5.1) 3.5 MMOL/L (3.5-5.1) Chloride Level 109 MMOL/L (98-107) 106 MMOL/L (98-107) Carbon Dioxide Level 17 MMOL/L (21-32) 22 MMOL/L (21-32) Anion Gap 17 mmol/L (5-15) 12 mmol/L (5-15) Blood Urea Nitrogen 41 mg/dL (7-18) 43 mg/dL (7-18) Creatinine 1.8 MG/DL (0.55-1.30) 2.0 MG/DL (0.55-1.30) Estimat Glomerular Filtration Rate mL/min (>60) mL/min (>60) Glucose Level 142 MG/DL (74-106) 152 MG/DL (74-106) Calcium Level 8.9 MG/DL (8.5-10.1) 8.5 MG/DL (8.5-10.1) Vancomycin Level Trough 20.7 ug/mL (5.0-12.0) Arterial Blood pH 7.296 (7.350-7.450) 7.436 (7.350-7.450) Arterial Blood Partial Pressure CO2 42.3 mmHg (35.0-45.0) 30.1 mmHg (35.0-45.0) Arterial Blood Partial Pressure O2 95.0 mmHg (75.0-100.0) 143.6 mmHg (75.0-100.0) Arterial Blood HCO3 20.2 mmol/L (22.0-26.0) 19.8 mmol/L (22.0-26.0) Arterial Blood Oxygen Saturation 96.4 % (95-100) 98.8 % (95-100) Arterial Blood Base Excess -5.9 (-2-2) -3.7 (-2-2) Marlo Test Positive Positive Differential Total Cells Counted 100 Neutrophils % (Manual) 84 % (45-75) Lymphocytes % (Manual) 13 % (20-45) Monocytes % (Manual) 2 % (1-10) Eosinophils % (Manual) 0 % (0-3) Basophils % (Manual) 1 % (0-2) Band Neutrophils 0 % (0-8) Platelet Estimate Adequate Platelet Morphology Normal Hypochromasia 3+ Anisocytosis 1+ Spherocytes 1+ Uric Acid 7.2 MG/DL (2.6-7.2) Phosphorus Level 2.4 MG/DL (2.5-4.9) Magnesium Level 1.7 MG/DL (1.8-2.4) Total Bilirubin 0.2 MG/DL (0.2-1.0) Aspartate Amino Transf (AST/SGOT) 39 U/L (15-37) Alanine Aminotransferase (ALT/SGPT) 11 U/L (12-78) Alkaline Phosphatase 87 U/L (46-116) C-Reactive Protein, Quantitative 22.7 mg/dL (0.00-0.90) Pro-B-Type Natriuretic Peptide 9203 pg/mL (0-125) Total Protein 5.9 G/DL (6.4-8.2) Albumin 1.0 G/DL (3.4-5.0) Globulin 4.9 g/dL Albumin/Globulin Ratio 0.2 (1.0-2.7) Test 04/21/19 07:44 04/22/19 05:00 04/22/19 06:42 Arterial Blood pH 7.443 (7.350-7.450) 7.425 (7.350-7.450) Arterial Blood Partial Pressure CO2 28.5 mmHg (35.0-45.0) 28.9 mmHg (35.0-45.0) Arterial Blood Partial Pressure O2 138.3 mmHg (75.0-100.0) 107.3 mmHg (75.0-100.0) Arterial Blood HCO3 19.1 mmol/L (22.0-26.0) 18.5 mmol/L (22.0-26.0) Arterial Blood Oxygen Saturation 98.4 % (95-100) 97.6 % (95-100) Arterial Blood Base Excess -4.3 (-2-2) -5.2 (-2-2) Marlo Test Positive Positive White Blood Count 13.3 K/UL (4.8-10.8) Red Blood Count 2.59 M/UL (4.20-5.40) Hemoglobin 7.1 G/DL (12.0-16.0) Hematocrit 22.0 % (37.0-47.0) Mean Corpuscular Volume 85 FL (80-99) Mean Corpuscular Hemoglobin 27.5 PG (27.0-31.0) Mean Corpuscular Hemoglobin Concent 32.3 G/DL (32.0-36.0) Red Cell Distribution Width 14.4 % (11.6-14.8) Platelet Count 165 K/UL (150-450) Mean Platelet Volume 8.0 FL (6.5-10.1) Neutrophils (%) (Auto) % (45.0-75.0) Lymphocytes (%) (Auto) % (20.0-45.0) Monocytes (%) (Auto) % (1.0-10.0) Eosinophils (%) (Auto) % (0.0-3.0) Basophils (%) (Auto) % (0.0-2.0) Differential Total Cells Counted 100 Neutrophils % (Manual) 89 % (45-75) Lymphocytes % (Manual) 7 % (20-45) Monocytes % (Manual) 2 % (1-10) Eosinophils % (Manual) 0 % (0-3) Basophils % (Manual) 0 % (0-2) Band Neutrophils 2 % (0-8) Platelet Estimate Adequate Platelet Morphology Normal Hypochromasia 1+ Anisocytosis 1+ Prothrombin Time 12.0 SEC (9.30-11.50) Prothromb Time International Ratio 1.1 (0.9-1.1) Sodium Level 138 MMOL/L (136-145) Potassium Level 3.6 MMOL/L (3.5-5.1) Chloride Level 106 MMOL/L (98-107) Carbon Dioxide Level 20 MMOL/L (21-32) Anion Gap 12 mmol/L (5-15) Blood Urea Nitrogen 43 mg/dL (7-18) Creatinine 1.8 MG/DL (0.55-1.30) Estimat Glomerular Filtration Rate mL/min (>60) Glucose Level 184 MG/DL (74-106) Calcium Level 8.5 MG/DL (8.5-10.1) Phosphorus Level 2.2 MG/DL (2.5-4.9) Magnesium Level 2.2 MG/DL (1.8-2.4) Total Bilirubin 0.3 MG/DL (0.2-1.0) Aspartate Amino Transf (AST/SGOT) 38 U/L (15-37) Alanine Aminotransferase (ALT/SGPT) 16 U/L (12-78) Alkaline Phosphatase 79 U/L (46-116) Total Protein 6.1 G/DL (6.4-8.2) Albumin 1.5 G/DL (3.4-5.0) Globulin 4.6 g/dL Albumin/Globulin Ratio 0.3 (1.0-2.7) Height (Feet): 5 Height (Inches): 7.00 Weight (Pounds): 175 Objective PHYSICAL EXAMINATION: GENERAL: BiPAP in place, sleeping in bed, slight short of breath. VITAL SIGNS: Have been reviewed CARDIOVASCULAR: No murmur. LUNGS: Poor exchange. TRACH++ ABDOMEN: Bowel sounds distant. EXTREMITIES: No cyanosis, clubbing, or edema. NEUROLOGIC: Patient is flaccid in bed, probably sedated. Steven Norton MD Apr 22, 2019 09:42
--- NOTE | 2019-04-22 09:51 | Diagnostic Imaging Report ---
Indication: Dyspnea Comparison: 04/21/2019 A single view chest radiograph was obtained. Findings: Patchy airspace opacities, cardiomegaly and prominent cephalized vessels again demonstrated. Endotracheal tube is stable. IMPRESSION: No change from the prior day
--- NOTE | 2019-04-22 10:12 | Nephrology Progress Note ---
Assessment/Plan Problem List: (1) Renal failure (ARF), acute on chronic (2) Diabetic nephropathy (3) Sepsis (4) Pneumonia (5) Right hemiplegia (6) Anemia in chronic kidney disease (CKD) (7) Pulmonary hypertension Assessment Breathing problem persists Renal failure; - Pre Renal - ? Underlying Renal Anemia Pneumonia / respiratory failure ? aspiration prone Sepsis elevated Troponin UTI HyperGlycemia / DM Right Esvin HTN Plan CONSIDER TRANSFUSION K Phos IV as needed venofer Folate 24 H urine protein check 2.4 gram Fraga Hydrate BP and BS control urine studies slow hydrate kidney MAIKEL results noted: No [place] 2D echo Noted visualized except distal setum and inferiro wall hypokinesis Left ventricular ejection fraction estimated to be 55-60 %. avoid Nephrotoxics per orders Subjective ROS Limited/Unobtainable: Yes Objective Objective Last 24 Hour Vital Signs Date Time Temp Pulse Resp B/P (MAP) Pulse Ox O2 Delivery O2 Flow Rate FiO2 04/22/19 10:00 83 17 124/71 (88) 95 04/22/19 09:30 89 18 133/69 (90) 100 04/22/19 09:08 85 16 100 04/22/19 09:06 85 16 100 04/22/19 09:00 88 19 123/77 (92) 100 04/22/19 08:53 88 22 45 04/22/19 08:30 89 19 129/67 (87) 99 04/22/19 08:00 88 18 131/68 (89) 99 04/22/19 08:00 88 04/22/19 08:00 Mechanical Ventilator 04/22/19 08:00 45 04/22/19 07:30 87 20 123/73 (90) 100 04/22/19 07:25 84 20 100 Mechanical Ventilator 100 04/22/19 07:25 94 24 45 04/22/19 07:00 99.1 84 16 136/71 (92) 100 04/22/19 06:00 78 16 127/63 (84) 100 04/22/19 05:00 84 18 130/76 (94) 100 04/22/19 04:59 81 18 55 04/22/19 04:00 Mechanical Ventilator 04/22/19 04:00 55 04/22/19 04:00 98.7 94 20 133/66 (88) 100 04/22/19 04:00 94 6/27/19 03:14 75 16 55 04/22/19 03:00 85 18 133/70 (91) 100 04/22/19 02:00 79 16 124/60 (81) 100 04/22/19 01:24 76 16 55 04/22/19 01:00 79 16 126/62 (83) 100 04/22/19 00:00 98.4 83 16 124/63 (83) 100 04/22/19 00:00 83 04/22/19 00:00 55 04/22/19 00:00 Mechanical Ventilator 04/21/19 23:24 78 16 55 04/21/19 23:00 82 16 120/65 (83) 100 04/21/19 22:00 86 17 123/60 (81) 100 04/21/19 21:24 78 20 55 04/21/19 21:00 80 16 130/59 (82) 100 04/21/19 20:00 80 04/21/19 20:00 55 04/21/19 20:00 98.7 80 17 109/57 (74) 100 04/21/19 20:00 Mechanical Ventilator 04/21/19 19:19 80 17 55 04/21/19 19:00 88 17 125/52 (76) 100 04/21/19 18:00 82 17 124/62 (82) 100 04/21/19 17:00 78 17 133/60 (84) 100 04/21/19 16:52 82 20 55 04/21/19 16:00 75 04/21/19 16:00 55 04/21/19 16:00 76 17 110/59 (76) 100 04/21/19 16:00 Mechanical Ventilator 04/21/19 15:10 78 20 55 04/21/19 15:00 82 16 143/59 (87) 100 04/21/19 14:00 82 17 132/63 (86) 100 04/21/19 13:15 74 18 55 04/21/19 13:00 91 17 110/63 (79) 100 04/21/19 12:00 55 04/21/19 12:00 Mechanical Ventilator 04/21/19 12:00 98.6 76 17 106/64 (78) 100 04/21/19 12:00 81 04/21/19 11:07 78 20 55 04/21/19 11:00 79 17 106/55 (72) 100 Intake and Output 04/21/19 04/22/19 18:59 06:59 Intake Total 445 ml 1020 ml Output Total 190 ml 435 ml Balance 255 ml 585 ml Intake Oral 0 ml 0 ml Free Water 150 ml IV Total 90 ml 805 ml Tube Feeding 205 ml 215 ml Output Urine Total 190 ml 435 ml # Bowel Movements 3 3 Laboratory Tests 04/22/19 05:00: White Blood Count 13.3H, Red Blood Count 2.59L, Hemoglobin 7.1L, Hematocrit 22.0L, Mean Corpuscular Volume 85, Mean Corpuscular Hemoglobin 27.5, Mean Corpuscular Hemoglobin Concent 32.3, Red Cell Distribution Width 14.4, Platelet Count 165, Mean Platelet Volume 8.0, Neutrophils (%) (Auto) , Lymphocytes (%) ( Auto) , Monocytes (%) (Auto) , Eosinophils (%) (Auto) , Basophils (%) (Auto) , Differential Total Cells Counted 100, Neutrophils % (Manual) 89H, Lymphocytes % (Manual) 7L, Monocytes % (Manual) 2, Eosinophils % (Manual) 0, Basophils % ( Manual) 0, Band Neutrophils 2, Platelet Estimate Adequate, Platelet Morphology Normal, Hypochromasia 1+, Anisocytosis 1+, Prothrombin Time 12.0H, Prothromb Time International Ratio 1.1, Sodium Level 138, Potassium Level 3.6, Chloride Level 106, Carbon Dioxide Level 20L, Anion Gap 12, Blood Urea Nitrogen 43H, Creatinine 1.8H, Estimat Glomerular Filtration Rate , Glucose Level 184H, Calcium Level 8.5, Phosphorus Level 2.2L, Magnesium Level 2.2, Total Bilirubin 0.3, Aspartate Amino Transf (AST/SGOT) 38H, Alanine Aminotransferase (ALT/SGPT) 16, Alkaline Phosphatase 79, Total Protein 6.1L, Albumin 1.5L, Globulin 4.6, Albumin/Globulin Ratio 0.3L 04/22/19 06:42: Arterial Blood pH 7.425, Arterial Blood Partial Pressure CO2 28.9L, Arterial Blood Partial Pressure O2 107.3H, Arterial Blood HCO3 18.5L, Arterial Blood Oxygen Saturation 97.6, Arterial Blood Base Excess -5.2L, Marlo Test Positive Height (Feet): 5 Height (Inches): 7.00 Weight (Pounds): 175 General Appearance: no apparent distress EENT: other - Ventd Cardiovascular: normal rate Respiratory/Chest: decreased breath sounds Abdomen: distended, other - has PEG Wally Spivey MD Apr 22, 2019 10:12
--- NOTE | 2019-04-22 10:30 | Infectious Diseases Prog Note ---
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 PNA Pulmonary edema -04/19 CXR: There is less pulmonary edema compared to yesterday but with moderate residual edema. -04/16 CXR: . Right perihilar and bilateral lower lobe pulmonary consolidation concerning for pneumonia.Small bilateral pleural effusions. CXR - B/L Infiltrates Low grade fevers; improving WBCs up to 25; improving 04/16 Sp Cx - C. alb; 04/19 sp cx yeast so far -BCx NTD -legionella ag urine neg Widened mediastinum - right sided aortic arch CXR - Apparent upper mediastinal widening. Possibly due to ectatic vasculature and body habitus, but upper mediastinal mass also possible. Correlate with any prior adiographs and may be available, consider CT for further evaluation if clinically indicated CT 04/13/19 - Right-sided aortic arch, presumably accounting for the apparent upper mediastinal widening demonstrated on recent plain radiograph. No evidence of upper mediastinal mass. Extensive bilateral lower lobe consolidation , likely pneumonia, less extensive left upper lobe consolidation. 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 We will continue to follow the patient during this hospitalization. Subjective Allergies: Coded Allergies: No Known Allergies (Unverified , 04/12/19) Subjective afebrile >72hrs wbc improved Objective Vital Signs Last 24 Hour Vital Signs Date Time Temp Pulse Resp B/P (MAP) Pulse Ox O2 Delivery O2 Flow Rate FiO2 04/22/19 10:00 83 17 124/71 (88) 95 04/22/19 09:30 89 18 133/69 (90) 100 04/22/19 09:08 85 16 100 04/22/19 09:06 85 16 100 04/22/19 09:00 88 19 123/77 (92) 100 04/22/19 08:53 88 22 45 04/22/19 08:30 89 19 129/67 (87) 99 04/22/19 08:00 88 18 131/68 (89) 99 04/22/19 08:00 88 04/22/19 08:00 Mechanical Ventilator 04/22/19 08:00 45 04/22/19 07:30 87 20 123/73 (90) 100 04/22/19 07:25 84 20 100 Mechanical Ventilator 100 04/22/19 07:25 94 24 45 04/22/19 07:00 99.1 84 16 136/71 (92) 100 04/22/19 06:00 78 16 127/63 (84) 100 04/22/19 05:00 84 18 130/76 (94) 100 04/22/19 04:59 81 18 55 04/22/19 04:00 Mechanical Ventilator 04/22/19 04:00 55 04/22/19 04:00 98.7 94 20 133/66 (88) 100 04/22/19 04:00 94 04/22/19 03:14 75 16 55 04/22/19 03:00 85 18 133/70 (91) 100 04/22/19 02:00 79 16 124/60 (81) 100 04/22/19 01:24 76 16 55 04/22/19 01:00 79 16 126/62 (83) 100 04/22/19 00:00 98.4 83 16 124/63 (83) 100 04/22/19 00:00 83 04/22/19 00:00 55 04/22/19 00:00 Mechanical Ventilator 04/21/19 23:24 78 16 55 04/21/19 23:00 82 16 120/65 (83) 100 04/21/19 22:00 86 17 123/60 (81) 100 04/21/19 21:24 78 20 55 04/21/19 21:00 80 16 130/59 (82) 100 04/21/19 20:00 80 04/21/19 20:00 55 04/21/19 20:00 98.7 80 17 109/57 (74) 100 04/21/19 20:00 Mechanical Ventilator 04/21/19 19:19 80 17 55 04/21/19 19:00 88 17 125/52 (76) 100 04/21/19 18:00 82 17 124/62 (82) 100 04/21/19 17:00 78 17 133/60 (84) 100 04/21/19 16:52 82 20 55 04/21/19 16:00 75 04/21/19 16:00 55 04/21/19 16:00 76 17 110/59 (76) 100 04/21/19 16:00 Mechanical Ventilator 04/21/19 15:10 78 20 55 04/21/19 15:00 82 16 143/59 (87) 100 04/21/19 14:00 82 17 132/63 (86) 100 04/21/19 13:15 74 18 55 04/21/19 13:00 91 17 110/63 (79) 100 04/21/19 12:00 55 04/21/19 12:00 Mechanical Ventilator 04/21/19 12:00 98.6 76 17 106/64 (78) 100 04/21/19 12:00 81 04/21/19 11:07 78 20 55 04/21/19 11:00 79 17 106/55 (72) 100 Height (Feet): 5 Height (Inches): 7.00 Weight (Pounds): 175 Objective Gen: Awake and talking HEENT: NCAT, MMM, EOMI LUNGS: CTAB, No W CARDS: RRR, S1, S2, No M/R/G, ABD: Soft, NT, ND Microbiology Date/Time Source Procedure Growth Status 04/19/19 14:00 Sputum Induced Gram Stain - Final Complete 04/19/19 14:00 Sputum Culture - Final Sugar Albicans Complete Laboratory Tests Test 04/22/19 05:00 04/22/19 06:42 White Blood Count 13.3 K/UL (4.8-10.8) H Red Blood Count 2.59 M/UL (4.20-5.40) L Hemoglobin 7.1 G/DL (12.0-16.0) L Hematocrit 22.0 % (37.0-47.0) L Mean Corpuscular Volume 85 FL (80-99) Mean Corpuscular Hemoglobin 27.5 PG (27.0-31.0) Mean Corpuscular Hemoglobin Concent 32.3 G/DL (32.0-36.0) Red Cell Distribution Width 14.4 % (11.6-14.8) Platelet Count 165 K/UL (150-450) Mean Platelet Volume 8.0 FL (6.5-10.1) Neutrophils (%) (Auto) % (45.0-75.0) Lymphocytes (%) (Auto) % (20.0-45.0) Monocytes (%) (Auto) % (1.0-10.0) Eosinophils (%) (Auto) % (0.0-3.0) Basophils (%) (Auto) % (0.0-2.0) Differential Total Cells Counted 100 Neutrophils % (Manual) 89 % (45-75) H Lymphocytes % (Manual) 7 % (20-45) L Monocytes % (Manual) 2 % (1-10) Eosinophils % (Manual) 0 % (0-3) Basophils % (Manual) 0 % (0-2) Band Neutrophils 2 % (0-8) Platelet Estimate Adequate Platelet Morphology Normal Hypochromasia 1+ Anisocytosis 1+ Prothrombin Time 12.0 SEC (9.30-11.50) H Prothromb Time International Ratio 1.1 (0.9-1.1) Sodium Level 138 MMOL/L (136-145) Potassium Level 3.6 MMOL/L (3.5-5.1) Chloride Level 106 MMOL/L (98-107) Carbon Dioxide Level 20 MMOL/L (21-32) L Anion Gap 12 mmol/L (5-15) Blood Urea Nitrogen 43 mg/dL (7-18) H Creatinine 1.8 MG/DL (0.55-1.30) H Estimat Glomerular Filtration Rate mL/min (>60) Glucose Level 184 MG/DL (74-106) H Calcium Level 8.5 MG/DL (8.5-10.1) Phosphorus Level 2.2 MG/DL (2.5-4.9) L Magnesium Level 2.2 MG/DL (1.8-2.4) Total Bilirubin 0.3 MG/DL (0.2-1.0) Aspartate Amino Transf (AST/SGOT) 38 U/L (15-37) H Alanine Aminotransferase (ALT/SGPT) 16 U/L (12-78) Alkaline Phosphatase 79 U/L (46-116) Total Protein 6.1 G/DL (6.4-8.2) L Albumin 1.5 G/DL (3.4-5.0) L Globulin 4.6 g/dL Albumin/Globulin Ratio 0.3 (1.0-2.7) L Arterial Blood pH 7.425 (7.350-7.450) Arterial Blood Partial Pressure CO2 28.9 mmHg (35.0-45.0) L Arterial Blood Partial Pressure O2 107.3 mmHg (75.0-100.0) H Arterial Blood HCO3 18.5 mmol/L (22.0-26.0) L Arterial Blood Oxygen Saturation 97.6 % (95-100) Arterial Blood Base Excess -5.2 (-2-2) L Marlo Test Positive Current Medications Medications (Trade) Dose Ordered Sig/Kenisha Route PRN Reason Start Time Stop Time Status Last Admin Dose Admin Acetaminophen (Tylenol) 650 mg Q4H PRN ORAL FEVER 04/17/19 12:36 05/17/19 12:35 Acetaminophen (Tylenol) 650 mg Q4H PRN RECTAL Fever 04/17/19 12:36 05/17/19 12:35 04/18/19 08:53 Albuterol/ Ipratropium (Albuterol/ Ipratropium) 3 ml Q4H PRN HHN Shortness of Breath 04/17/19 12:36 04/22/19 12:35 04/17/19 17:44 Atropine Sulfate (Atropine) 0.5 mg Q5M PRN IV bpm less than 45 04/22/19 06:45 04/22/19 18:00 Chlorhexidine Gluconate (Izzy-Hex 2%) 1 applic DAILY@2000 TOPIC 04/20/19 20:00 05/20/19 19:59 04/21/19 19:49 Dextrose (Dextrose 50%) 25 ml Q30M PRN IV Hypoglycemia 04/17/19 12:45 05/12/19 19:44 Dextrose (Dextrose 50%) 50 ml Q30M PRN IV Hypoglycemia 04/17/19 12:45 05/12/19 19:44 Dextrose/Sodium Chloride 1,000 ml @ 75 mls/hr [id number] IV 04/21/19 10:45 05/21/19 10:44 04/22/19 00:10 Diphenhydramine HCl (Benadryl) 25 mg Q15M PRN IVP Itching 04/22/19 06:45 04/22/19 18:00 Epoetin Bandar (Epoetin Bandar-EPBX(NON ESRD)) 10,000 unit FRI-FRI-FRI SUBQ 04/19/19 21:00 05/16/19 20:59 04/21/19 20:37 Fentanyl Citrate (Sublimaze 100 mcg/2 mL) 25 mcg Q10M PRN IV Moderate Pain (Pain Scale 4-6) 04/22/19 06:45 04/22/19 18:00 Folic Acid (Folate) 5 mg DAILY ORAL 04/22/19 09:00 05/19/19 08:59 04/22/19 08:53 Heparin Sodium/ Sodium Chloride (Heparin 1000 units/500ml Premix) 1,000 unit PRN PRN IV picc line placement 04/20/19 10:30 04/22/19 10:29 Hydralazine HCl (Apresoline) 5 mg Q30M PRN IV SBP>160 OR___/DBP>90 OR___ 04/22/19 06:45 04/22/19 18:00 Hydralazine HCl (Apresoline) 10 mg Q2H PRN IV For High Blood Pressure 04/17/19 12:36 05/17/19 12:35 Insulin Aspart (NovoLOG) Q6HR SUBQ 04/20/19 18:00 05/20/19 17:59 04/22/19 06:17 Lansoprazole (Prevacid) 30 mg DAILY GT 04/22/19 09:00 05/22/19 08:59 04/22/19 08:53 Lidocaine HCl (Xylocaine 1% 30ml) 30 ml PRN PRN INJ picc line placement 04/20/19 10:30 04/22/19 10:29 Lorazepam (Ativan 2mg/ml 1ml) 2 mg Q4H PRN IV For Anxiety 04/20/19 11:00 04/27/19 10:59 Lorazepam (Ativan) 0.5 mg Q6H PRN ORAL For Anxiety 04/17/19 12:37 04/24/19 12:36 Meropenem 1 gm/ Sodium Chloride 55 ml @ 110 mls/hr Q12HR@1100,2300 IVPB 04/18/19 11:00 04/23/19 10:59 04/21/19 23:00 Midazolam HCl (Versed 2mg/2ml vial) 1 mg Q15M PRN IVP For Anxiety 04/22/19 06:45 04/22/19 18:00 Midodrine (Pro-Amatine) 10 mg THREE TIMES A DAY NG 04/21/19 13:00 05/21/19 12:59 04/22/19 08:53 Morphine Sulfate (Morphine Sulfate) 4 mg Q4H PRN IVP For Pain 04/20/19 11:00 04/27/19 10:59 Ondansetron HCl (Zofran) 4 mg Q1H PRN IVP Nausea & Vomiting 04/22/19 06:45 04/22/19 18:00 Ondansetron HCl (Zofran) 4 mg Q6H PRN IVP Nausea & Vomiting 04/17/19 12:37 05/17/19 12:36 Polyethylene Glycol (Miralax) 17 gm DAILYPRN PRN ORAL Constipation 04/17/19 12:37 05/17/19 12:36 Potassium Phosphate 20 mm/ Sodium Chloride 281.6667 ml @ 46.944 m... ONCE IV 04/22/19 09:00 04/22/19 15:00 04/22/19 08:53 Cora Baer M.D. Apr 22, 2019 10:30
--- NOTE | 2019-04-22 10:33 | Pulmonolgy Critical Care Note ---
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 (7) Hypertensive heart disease (8) Right hemiplegia (9) History of CVA (cerebrovascular accident) (10) CAD (coronary artery disease) Respiratory: monitor respiratory rate, adjust FIO2, CXR Cardiac: continue to monitor HR/BP Renal: F/U I&O, keep IV fluid Infectious Disease: check cultures Gastrointestinal: continue feedings/current rate, abdominal imaging Endocrine: monitor blood sugar Hematologic: monitor H/H, transfuse if hgb<8.5 Neurologic: PRN Ativan, keep patient comfortable Affect: PRN ativan Prophylaxis: Protonix Notes Reviewed: reiki practitioner, renal Discussed with: nurses, consultants, caseworker intakeservice delivery manager - Objective Last 24 Hour Vital Signs Date Time Temp Pulse Resp B/P (MAP) Pulse Ox O2 Delivery O2 Flow Rate FiO2 04/22/19 10:00 83 17 124/71 (88) 95 04/22/19 09:30 89 18 133/69 (90) 100 04/22/19 09:08 85 16 100 04/22/19 09:06 85 16 100 04/22/19 09:00 88 19 123/77 (92) 100 04/22/19 08:53 88 22 45 04/22/19 08:30 89 19 129/67 (87) 99 04/22/19 08:00 88 18 131/68 (89) 99 04/22/19 08:00 88 04/22/19 08:00 Mechanical Ventilator 04/22/19 08:00 45 04/22/19 07:30 87 20 123/73 (90) 100 04/22/19 07:25 84 20 100 Mechanical Ventilator 100 04/22/19 07:25 94 24 45 04/22/19 07:00 99.1 84 16 136/71 (92) 100 04/22/19 06:00 78 16 127/63 (84) 100 04/22/19 05:00 84 18 130/76 (94) 100 04/22/19 04:59 81 18 55 04/22/19 04:00 Mechanical Ventilator 04/22/19 04:00 55 04/22/19 04:00 98.7 94 20 133/66 (88) 100 04/22/19 04:00 94 04/22/19 03:14 75 16 55 04/22/19 03:00 85 18 133/70 (91) 100 04/22/19 02:00 79 16 124/60 (81) 100 04/22/19 01:24 76 16 55 04/22/19 01:00 79 16 126/62 (83) 100 04/22/19 00:00 98.4 83 16 124/63 (83) 100 04/22/19 00:00 83 04/22/19 00:00 55 04/22/19 00:00 Mechanical Ventilator 04/21/19 23:24 78 16 55 04/21/19 23:00 82 16 120/65 (83) 100 04/21/19 22:00 86 17 123/60 (81) 100 04/21/19 21:24 78 20 55 04/21/19 21:00 80 16 130/59 (82) 100 04/21/19 20:00 80 04/21/19 20:00 55 04/21/19 20:00 98.7 80 17 109/57 (74) 100 04/21/19 20:00 Mechanical Ventilator 04/21/19 19:19 80 17 55 04/21/19 19:00 88 17 125/52 (76) 100 04/21/19 18:00 82 17 124/62 (82) 100 04/21/19 17:00 78 17 133/60 (84) 100 04/21/19 16:52 82 20 55 04/21/19 16:00 75 04/21/19 16:00 55 04/21/19 16:00 76 17 110/59 (76) 100 04/21/19 16:00 Mechanical Ventilator 04/21/19 15:10 78 20 55 04/21/19 15:00 82 16 143/59 (87) 100 04/21/19 14:00 82 17 132/63 (86) 100 04/21/19 13:15 74 18 55 04/21/19 13:00 91 17 110/63 (79) 100 04/21/19 12:00 55 04/21/19 12:00 Mechanical Ventilator 04/21/19 12:00 98.6 76 17 106/64 (78) 100 04/21/19 12:00 81 04/21/19 11:07 78 20 55 04/21/19 11:00 79 17 106/55 (72) 100 Status: awake Condition: critical HEENT: atraumatic, normocephalic Lungs: clear Heart: HR/BP stable, HR/BP unstable Abdomen: soft, non-tender, active bowel sounds, feeding tube Extremities: edema Micro: Microbiology Date/Time Source Procedure Growth Status 04/19/19 14:00 Sputum Induced Gram Stain - Final Complete 04/19/19 14:00 Sputum Culture - Final Sugar Albicans Complete Accucheck: 201 Critical Care - Subjective ROS Limited/Unobtainable: No Condition: critical EKG Rhythm: Sinus Rhythm FI02: 45 Vent Support Breath Rate: 16 Vent Support Mode: AC Vent Tidal Volume: 500 Sputum Amount: Small PEEP: 5.0 PIP: 30 Tube Feeding Amount: 0 I&O: Intake and Output 04/21/19 04/22/19 18:59 06:59 Intake Total 445 ml 1020 ml Output Total 190 ml 435 ml Balance 255 ml 585 ml Intake Oral 0 ml 0 ml Free Water 150 ml IV Total 90 ml 805 ml Tube Feeding 205 ml 215 ml Output Urine Total 190 ml 435 ml # Bowel Movements 3 3 CXR: extensive infiltrate ET-Tube: 7.5 ET Position: 23 Labs: Laboratory Tests Test 04/22/19 05:00 04/22/19 06:42 White Blood Count 13.3 K/UL (4.8-10.8) H Red Blood Count 2.59 M/UL (4.20-5.40) L Hemoglobin 7.1 G/DL (12.0-16.0) L Hematocrit 22.0 % (37.0-47.0) L Mean Corpuscular Volume 85 FL (80-99) Mean Corpuscular Hemoglobin 27.5 PG (27.0-31.0) Mean Corpuscular Hemoglobin Concent 32.3 G/DL (32.0-36.0) Red Cell Distribution Width 14.4 % (11.6-14.8) Platelet Count 165 K/UL (150-450) Mean Platelet Volume 8.0 FL (6.5-10.1) Neutrophils (%) (Auto) % (45.0-75.0) Lymphocytes (%) (Auto) % (20.0-45.0) Monocytes (%) (Auto) % (1.0-10.0) Eosinophils (%) (Auto) % (0.0-3.0) Basophils (%) (Auto) % (0.0-2.0) Differential Total Cells Counted 100 Neutrophils % (Manual) 89 % (45-75) H Lymphocytes % (Manual) 7 % (20-45) L Monocytes % (Manual) 2 % (1-10) Eosinophils % (Manual) 0 % (0-3) Basophils % (Manual) 0 % (0-2) Band Neutrophils 2 % (0-8) Platelet Estimate Adequate Platelet Morphology Normal Hypochromasia 1+ Anisocytosis 1+ Prothrombin Time 12.0 SEC (9.30-11.50) H Prothromb Time International Ratio 1.1 (0.9-1.1) Sodium Level 138 MMOL/L (136-145) Potassium Level 3.6 MMOL/L (3.5-5.1) Chloride Level 106 MMOL/L (98-107) Carbon Dioxide Level 20 MMOL/L (21-32) L Anion Gap 12 mmol/L (5-15) Blood Urea Nitrogen 43 mg/dL (7-18) H Creatinine 1.8 MG/DL (0.55-1.30) H Estimat Glomerular Filtration Rate mL/min (>60) Glucose Level 184 MG/DL (74-106) H Calcium Level 8.5 MG/DL (8.5-10.1) Phosphorus Level 2.2 MG/DL (2.5-4.9) L Magnesium Level 2.2 MG/DL (1.8-2.4) Total Bilirubin 0.3 MG/DL (0.2-1.0) Aspartate Amino Transf (AST/SGOT) 38 U/L (15-37) H Alanine Aminotransferase (ALT/SGPT) 16 U/L (12-78) Alkaline Phosphatase 79 U/L (46-116) Total Protein 6.1 G/DL (6.4-8.2) L Albumin 1.5 G/DL (3.4-5.0) L Globulin 4.6 g/dL Albumin/Globulin Ratio 0.3 (1.0-2.7) L Arterial Blood pH 7.425 (7.350-7.450) Arterial Blood Partial Pressure CO2 28.9 mmHg (35.0-45.0) L Arterial Blood Partial Pressure O2 107.3 mmHg (75.0-100.0) H Arterial Blood HCO3 18.5 mmol/L (22.0-26.0) L Arterial Blood Oxygen Saturation 97.6 % (95-100) Arterial Blood Base Excess -5.2 (-2-2) L Marlo Test Positive Tony Springer MD Apr 22, 2019 10:33
--- NOTE | 2019-04-22 11:20 | NUR ---
NURSE NOTES: Turned and repositioned. x1 large soft BM, new dressing applied on right buttock with calazime. Thick secretions noted. Patient alert, able to make contact but unable to follow simple commands.
--- NOTE | 2019-04-22 11:28 | NUR ---
RD ASSESSMENT & RECOMMENDATIONS SEE CARE ACTIVITY FOR COMPLETE ASSESSMENT DAILY ESTIMATED NEEDS: Needs based on Sepsis, DM, cardiac, Critical care, wound/ 58kg abw 22-30 kcals/kg 5696-0658 total kcals 1.25-1.5 g protein/kg 72-87 g total protein 25-30 mL/kg 1710-9865 total fluid mLs NUTRITION DIAGNOSIS: * Swallowing difficulty R/T dysphagia, h/o CVA, respiratory status as evidenced by s/p VSS w/ rec for NPO, nonoral feedings, now orally intubated in ICU, s/p PEG placement. * Altered nutrition related lab values R/T diabetes, ARF, cardiac hx as evidenced by A1C of 8.1, POC glu (120-201), elev creat (2.4 ->1.8), elev BNP (95319->4917->9203). . CURRENT TF:Glucerna 1.2 @ 60ml/hr x 24 hrs ENTERAL NUTRITION RECOMMENDATIONS: Glucerna 1.2 @ 60ml/hr x 24 hrs to provide 1440ml, 1728kcal, 86g prot, 1159ml free water * Maintain current TF : Pt is s/p new PEG placement, initiate Glucerna 1.2 @ 20ml/hr x 6 hrs, advance 10ml q 4-6 hrs as tolerated to goal rate. * HOB over 30 degrees/ water flush per MD ADDITIONAL RECOMMENDATIONS: * Calibrated bedscale wt for accurate CBW * Monitor lytes daily, replete as needed (low phos) * Wound healing: add Jarvis 1pkt BID, vit C 250mg QD * DC IVF once TF starts: BNP elev, for BG control .
--- NOTE | 2019-04-22 11:30 | NUR ---
*-* INSURANCE *-* UPDATED CLINICALS HAVE BEEN FAXED TO: [facility] white# [id number] P: [phone] F: [phone] (FAX CLINICALS)
[2019-04-22] MEDS: Cefepime HCl 1 GM in D5W 55 ML IVPB SCH (12:25)
--- NOTE | 2019-04-22 12:50 | NUR ---
NURSE NOTES: x1 PRBC transfusion started, VSS, afebrile. No signs of transfusion rxn noted. Patient calm and comfortable.
[2019-04-22] MEDS ORDERED: Tubing IV Secondary IV ONE (13:45)
--- NOTE | 2019-04-22 14:30 | Progress Note ---
DATE: 04/22/2019 SUBJECTIVE: This is a 79-year-old female with sepsis. She has some confusion, some disorganized thought process, and decline in cognition below the baseline, but she is in the ICU now, very confused, disorganized, altered mental status. Cognition has declined below baseline, worsened by stress of her medical illness. MENTAL STATUS EXAMINATION: This is a 79-year-old female. Appearance is disheveled. Attitude, irritable and agitated. Affect, guarded and restricted. Intellect poor. Mood, depressed and anxious. Motor activity, psychomotor agitation. Insight and judgment is poor. DIAGNOSIS: Major depression disorder, mild, recurrent with psychotic features, rule out dementia with psychosis. PLAN: I am going to continue to treat her with Ativan mg every 4 hours IV as needed and she will continue to be followed by Psychiatry. Chart reviewed. Discussed with staff. Seen and assessed at bedside. A 20 minutes of behavioral management provided. Omar Glover M.D. DR: CATY JOB#: [id number] CC:
--- NOTE | 2019-04-22 14:33 | NUR ---
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 PNA . RESPIRATORY FAILURE VS: T 99.1 HR 84 RR 16 B/P 136/71 SATS 100% ON MECH VENT FiO2 100 WBC 13.3 HGB 7.1 HCT 22 CO2 20 BUN 43 CR 1.8 GLU 184 PHOS 2.2 AST 38 ABGs PCO2 28.9 PO2 107.3 HCO3 18.5 BE -5.2 IS:MAGNESIUM SULFATE 100ml IVPB FOLIC ACID 1mg NOVOLOG SUBQ MEROPENEM 55ml IVPB INTUBATED 04/20 AFTER FAILED WEAN[facility] ICU STATUS
--- NOTE | 2019-04-22 14:49 | General Progress Note ---
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 ICD Codes: E11.22 - Type 2 diabetes mellitus with diabetic chronic kidney disease; N18.4 - Chronic kidney disease, stage 4 (severe) SNOMED: 71254202, 445450401, 139668981 (7) Respiratory failure ICD Codes: J96.90 - Respiratory failure, unspecified, unspecified whether with hypoxia or hypercapnia SNOMED: 314678659 Qualifiers: Qualified Codes: J96.02 - Acute respiratory failure with hypercapnia Status: unchanged Assessment/Plan: pt diet abx o2 pulm tx neuro psyc eval cbc bmp am ltach eval Subjective Constitutional: Reports: weakness Allergies: Coded Allergies: No Known Allergies (Unverified , 04/12/19) All Systems: reviewed and negative except above Subjective intubated ng in icu Objective Last 24 Hour Vital Signs Date Time Temp Pulse Resp B/P (MAP) Pulse Ox O2 Delivery O2 Flow Rate FiO2 04/22/19 13:08 87 20 45 04/22/19 13:00 83 18 129/65 (86) 100 04/22/19 12:00 Mechanical Ventilator 04/22/19 12:00 86 04/22/19 12:00 86 17 122/60 (80) 100 04/22/19 12:00 45 04/22/19 11:09 78 18 45 04/22/19 11:00 86 16 127/64 (85) 100 04/22/19 10:00 83 17 124/71 (88) 95 04/22/19 09:30 89 18 133/69 (90) 100 04/22/19 09:08 85 16 100 04/22/19 09:06 85 16 100 04/22/19 09:00 88 19 123/77 (92) 100 04/22/19 08:53 88 22 45 04/22/19 08:30 89 19 129/67 (87) 99 04/22/19 08:00 88 18 131/68 (89) 99 04/22/19 08:00 88 04/22/19 08:00 Mechanical Ventilator 04/22/19 08:00 45 04/22/19 07:30 87 20 123/73 (90) 100 04/22/19 07:25 84 20 100 Mechanical Ventilator 100 04/22/19 07:25 94 24 45 04/22/19 07:00 99.1 84 16 136/71 (92) 100 04/22/19 06:00 78 16 127/63 (84) 100 04/22/19 05:00 84 18 130/76 (94) 100 04/22/19 04:59 81 18 55 04/22/19 04:00 Mechanical Ventilator 04/22/19 04:00 55 04/22/19 04:00 98.7 94 20 133/66 (88) 100 04/22/19 04:00 94 04/22/19 03:14 75 16 55 04/22/19 03:00 85 18 133/70 (91) 100 04/22/19 02:00 79 16 124/60 (81) 100 04/22/19 01:24 76 16 55 04/22/19 01:00 79 16 126/62 (83) 100 04/22/19 00:00 98.4 83 16 124/63 (83) 100 04/22/19 00:00 83 04/22/19 00:00 55 04/22/19 00:00 Mechanical Ventilator 04/21/19 23:24 78 16 55 04/21/19 23:00 82 16 120/65 (83) 100 04/21/19 22:00 86 17 123/60 (81) 100 04/21/19 21:24 78 20 55 04/21/19 21:00 80 16 130/59 (82) 100 04/21/19 20:00 80 04/21/19 20:00 55 04/21/19 20:00 98.7 80 17 109/57 (74) 100 04/21/19 20:00 Mechanical Ventilator 04/21/19 19:19 80 17 55 04/21/19 19:00 88 17 125/52 (76) 100 04/21/19 18:00 82 17 124/62 (82) 100 04/21/19 17:00 78 17 133/60 (84) 100 04/21/19 16:52 82 20 55 04/21/19 16:00 75 04/21/19 16:00 55 04/21/19 16:00 76 17 110/59 (76) 100 04/21/19 16:00 Mechanical Ventilator 04/21/19 15:10 78 20 55 04/21/19 15:00 82 16 143/59 (87) 100 Intake and Output 04/21/19 04/22/19 19:00 07:00 Intake Total 525 ml 985 ml Output Total 215 ml 395 ml Balance 310 ml 590 ml Intake Oral 0 ml 0 ml Free Water 150 ml IV Total 135 ml 805 ml Tube Feeding 240 ml 180 ml Output Urine Total 215 ml 395 ml # Bowel Movements 3 3 Laboratory Tests 04/22/19 05:00: White Blood Count 13.3H, Red Blood Count 2.59L, Hemoglobin 7.1L, Hematocrit 22.0L, Mean Corpuscular Volume 85, Mean Corpuscular Hemoglobin 27.5, Mean Corpuscular Hemoglobin Concent 32.3, Red Cell Distribution Width 14.4, Platelet Count 165, Mean Platelet Volume 8.0, Neutrophils (%) (Auto) , Lymphocytes (%) ( Auto) , Monocytes (%) (Auto) , Eosinophils (%) (Auto) , Basophils (%) (Auto) , Differential Total Cells Counted 100, Neutrophils % (Manual) 89H, Lymphocytes % (Manual) 7L, Monocytes % (Manual) 2, Eosinophils % (Manual) 0, Basophils % ( Manual) 0, Band Neutrophils 2, Platelet Estimate Adequate, Platelet Morphology Normal, Hypochromasia 1+, Anisocytosis 1+, Prothrombin Time 12.0H, Prothromb Time International Ratio 1.1, Sodium Level 138, Potassium Level 3.6, Chloride Level 106, Carbon Dioxide Level 20L, Anion Gap 12, Blood Urea Nitrogen 43H, Creatinine 1.8H, Estimat Glomerular Filtration Rate , Glucose Level 184H, Calcium Level 8.5, Phosphorus Level 2.2L, Magnesium Level 2.2, Total Bilirubin 0.3, Aspartate Amino Transf (AST/SGOT) 38H, Alanine Aminotransferase (ALT/SGPT) 16, Alkaline Phosphatase 79, Total Protein 6.1L, Albumin 1.5L, Globulin 4.6, Albumin/Globulin Ratio 0.3L 04/22/19 06:42: Arterial Blood pH 7.425, Arterial Blood Partial Pressure CO2 28.9L, Arterial Blood Partial Pressure O2 107.3H, Arterial Blood HCO3 18.5L, Arterial Blood Oxygen Saturation 97.6, Arterial Blood Base Excess -5.2L, Marlo Test Positive Height (Feet): 5 Height (Inches): 7.00 Weight (Pounds): 175 General Appearance: lethargic EENT: normal ENT inspection Neck: normal alignment Cardiovascular: normal peripheral pulses, normal rate, regular rhythm Respiratory/Chest: chest wall non-tender, lungs clear, normal breath sounds Abdomen: normal bowel sounds, non tender, soft Extremities: normal inspection Edema: no edema noted Arm (L), no edema noted Arm (R), no edema noted Leg (L), no edema noted Leg (R), no edema noted Pedal (L), no edema noted Pedal (R), no edema noted Generalized Neurologic: motor weakness Skin: normal pigmentation, warm/dry Jama Keating DO Apr 22, 2019 14:49
--- NOTE | 2019-04-22 15:00 | Procedure Note ---
DATE OF PROCEDURE: 04/22/2019 SURGEON: Darron Gentile M.D. PROCEDURE: Upper endoscopy with biopsy and PEG placement. ANESTHESIA: Per Dr. Rohini Onofre. INSTRUMENT: Olympus adult flexible upper endoscope. INDICATION: Dysphagia. REASON FOR PROCEDURE: The procedure, risks, benefits, and possible consequences, including hemorrhage, aspiration, perforation and infection, and alternative treatments, were explained to the patient/legal guardian by Dr. Darron Gentile and the patient/legal guardian understood and accepted these risks. PROCEDURE IN DETAIL: After informed consent was obtained and the patient was adequately sedated, Olympus upper endoscope was advanced from mouth into the second portion of the duodenum and retroflexion was performed in the stomach. The patient had evidence of shallow duodenal ulcerations. Random biopsy from antrum was obtained to rule out H. pylori infection. Then, under endoscopic guidance, under sterile condition, a push type of G-tube was successfully placed in epigastric area. The distance from the tip of the tube to skin was about 3 cm in size. The patient tolerated the procedure very well without any complication. SUMMARY OF FINDINGS: 1. Status post successful PEG placement. 2. Duodenal ulcer. 3. Gastritis, status post biopsy. RECOMMENDATIONS: 1. Abdominal binder. 2. Elevate the head of the bed at all times. 3. G-tube flush. 4. G-tube care. 5. Start tube feeding later today. 6. The patient currently on antibiotics. I want to thank, Dr. Jama Keating, for this kind referral. Darron Gentile M.D. DR: KONSTANTIN JOB#: [id number] CC: Jama Keating D.O.
--- NOTE | 2019-04-22 15:15 | NUR ---
NURSE NOTES: Blood transfusion complete. Temp 98.8, BP 123/58, HR 76, RR 20, sop2 100%. No transfusion rxn noted. No signs of distress noted.
--- NOTE | 2019-04-22 17:11 | Neurology Progress Note ---
Interim History Interim History ROS Limited/Unobtainable: No Complaints: AMS Events: Weaning attempts unsuccessful, PEG placed/awaiting Trach Interim History This visit was performed on April 22, [address] Geo Espitia. Objective Physical Exam Last Vital Signs Date Time Temp Pulse Resp B/P (MAP) Pulse Ox O2 Delivery O2 Flow Rate FiO2 04/22/19 16:50 77 21 45 04/22/19 13:00 129/65 (86) 100 04/22/19 12:00 Mechanical Ventilator 04/22/19 07:00 99.1 04/17/19 05:22 2.0 Laboratory Tests Test 04/22/19 05:00 04/22/19 06:42 White Blood Count 13.3 K/UL (4.8-10.8) H Red Blood Count 2.59 M/UL (4.20-5.40) L Hemoglobin 7.1 G/DL (12.0-16.0) L Hematocrit 22.0 % (37.0-47.0) L Mean Corpuscular Volume 85 FL (80-99) Mean Corpuscular Hemoglobin 27.5 PG (27.0-31.0) Mean Corpuscular Hemoglobin Concent 32.3 G/DL (32.0-36.0) Red Cell Distribution Width 14.4 % (11.6-14.8) Platelet Count 165 K/UL (150-450) Mean Platelet Volume 8.0 FL (6.5-10.1) Neutrophils (%) (Auto) % (45.0-75.0) Lymphocytes (%) (Auto) % (20.0-45.0) Monocytes (%) (Auto) % (1.0-10.0) Eosinophils (%) (Auto) % (0.0-3.0) Basophils (%) (Auto) % (0.0-2.0) Differential Total Cells Counted 100 Neutrophils % (Manual) 89 % (45-75) H Lymphocytes % (Manual) 7 % (20-45) L Monocytes % (Manual) 2 % (1-10) Eosinophils % (Manual) 0 % (0-3) Basophils % (Manual) 0 % (0-2) Band Neutrophils 2 % (0-8) Platelet Estimate Adequate Platelet Morphology Normal Hypochromasia 1+ Anisocytosis 1+ Prothrombin Time 12.0 SEC (9.30-11.50) H Prothromb Time International Ratio 1.1 (0.9-1.1) Sodium Level 138 MMOL/L (136-145) Potassium Level 3.6 MMOL/L (3.5-5.1) Chloride Level 106 MMOL/L (98-107) Carbon Dioxide Level 20 MMOL/L (21-32) L Anion Gap 12 mmol/L (5-15) Blood Urea Nitrogen 43 mg/dL (7-18) H Creatinine 1.8 MG/DL (0.55-1.30) H Estimat Glomerular Filtration Rate mL/min (>60) Glucose Level 184 MG/DL (74-106) H Calcium Level 8.5 MG/DL (8.5-10.1) Phosphorus Level 2.2 MG/DL (2.5-4.9) L Magnesium Level 2.2 MG/DL (1.8-2.4) Total Bilirubin 0.3 MG/DL (0.2-1.0) Aspartate Amino Transf (AST/SGOT) 38 U/L (15-37) H Alanine Aminotransferase (ALT/SGPT) 16 U/L (12-78) Alkaline Phosphatase 79 U/L (46-116) Total Protein 6.1 G/DL (6.4-8.2) L Albumin 1.5 G/DL (3.4-5.0) L Globulin 4.6 g/dL Albumin/Globulin Ratio 0.3 (1.0-2.7) L Arterial Blood pH 7.425 (7.350-7.450) Arterial Blood Partial Pressure CO2 28.9 mmHg (35.0-45.0) L Arterial Blood Partial Pressure O2 107.3 mmHg (75.0-100.0) H Arterial Blood HCO3 18.5 mmol/L (22.0-26.0) L Arterial Blood Oxygen Saturation 97.6 % (95-100) Arterial Blood Base Excess -5.2 (-2-2) L Marlo Test Positive General: well developed, well nourished, no acute distress Head: normocophalic Neck: no rigidity EENT: benign Neurologic Exam Mental Status: awake, other Speech: other Language: other Cranial Nerve II: fundus normal, visual cruz, no papilledema, other Cranial Nerves III, IV, : PERRLA, EOMI, other Cranial Nerve V: other Cranial Nerve VII: other Cranial Nerve VIII: other Cranial Nerve IX: other Cranial Nerve XI: other Cranial Nerve XII: other Motor System: other Sensory: other Coordination: other Gait: other Objective Right Hemiplegia at baseline- not following commands, eyes opening to noxious stimuli. Previously on BIPAP, now intubated since 04/20/19 due to respiratory failure while in ICU on BIPAP. She is alert, eyes opening to voice and noxious stimuli. She triple flexes in left leg and arm. Right hemiparesis apparent with minimal withdrawal flexion on right UE/LE. 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 PEG feeds when able Trach Planned Critical care time of 40 minutes, was performed in order to assess and manage the high probability of imminent or life threatening deterioration to respiratory/neurologic function, with frequent reassessment and excludes all billable procedures. Phyllis Diop N.P. Apr 22, 2019 17:11
--- NOTE | 2019-04-22 17:52 | NUR ---
NURSE NOTES: Turned and repositioned. BM passed, clean and kept dry. Afebrile. No signs of distress. Increased GTF to 25cc/hr, no residual.
--- NOTE | 2019-04-22 19:23 | NUR ---
HAND-OFF: Report given to HORTENCIA Echavarria using SBAR.
[2019-04-22] MEDS: Dyna-Hex 2% Top Sol 2oz TOPIC SCH (19:42)
--- NOTE | 2019-04-22 19:50 | NUR ---
NURSE NOTES: PATIENT OPEN EYES, ABLE TO EYE CONTACT TO NAME, ON ETT TO VENT, AC16/TV500/FIO2 45%/PEEP5, O2 SATURATION OVER 98% NOTED, G TUBE INTACT AND PATENT, ONGOING GLUCERNA 1.2 AT 35ML/HR, RESIDUE 20ML NOTED, ABDOMEN SOFT, NON TENDER, KEPT HOB OVER 30 DEGREES, F/C INTACT AND PATENT, YELLOW URINE OUTED, PICC LINE TO LEFT UPPER ARM AND PERIPHERAL LINE TO LEFT FOREARM, INTACT AND PATENT STATUS, ON GOING D5W 1/2NS AT 75ML/HR VIA PICC LINE, 1 POINT SOFT RESTRAINT TO LEFT WRIST STATUS, ON P200 BED, SCD'S TO BOTH LOWER LEGS, MADE LOWER BED POSITION AND PROVIDED CALL LIGHT WITHIN REACH, WILL CONTINUE TO MONITOR.
[2019-04-22 20:00] LABS: BASOPHILS % (AUTO) 0.4 % (0.0-2.0); EOSINOPHILS % (AUTO) 0.7 % (0.0-3.0); HEMATOCRIT 28.6 % (37.0-47.0); LYMPHOCYTES % (AUTO) 12.6 % (20.0-45.0); MEAN CORPUSCULAR VOLUME 88 FL (80-99); MONOCYTES % (AUTO) 5.4 % (1.0-10.0); PLATELET COUNT 159 K/UL (150-450); RED BLOOD COUNT 3.25 M/UL (4.20-5.40); RED CELL DISTRIBUTION WIDTH 13.7 % (11.6-14.8); WHITE BLOOD COUNT 13.1 K/UL (4.8-10.8)
--- NOTE | 2019-04-22 22:00 | NUR ---
NURSE NOTES: ORAL CARE WAS DONE, NO PAIN NOTED, WILL CONTINUE PLAN OF CARE.
--- NOTE | 2019-04-22 23:57 | NUR ---
NURSE NOTES: REPOSITIONED, KEPT HOB OVER 30 DEGREES PER PROTOCOLS, WILL CONTINUE TO MONITOR.
[2019-04-23] VITALS (24 sets, daily range): BP systolic 85–147; BP diastolic 45–106
--- NOTE | 2019-04-23 02:00 | NUR ---
NURSE NOTES: PATIENT ASLEEP STATUS, G TUBE FEEDING TOLERATED, RELEASED RESTRAINTS AND REAPPLIED FOR SAFETY, NO PAIN OR DISTRESS NOTED AT THIS TIME, WILL CONTINUE TO MONITOR.
[2019-04-23] MEDS: D5 1/2NS 1,000 ML IV SCH (02:44)
--- NOTE | 2019-04-23 03:00 | NUR ---
NURSE NOTES: Bed bath, change of linens, change of dressing at sacral done with HORTENCIA Echavarria
--- NOTE | 2019-04-23 03:28 | NUR ---
HAND-OFF: Report given to HORTENCIA FRAZIER.
--- NOTE | 2019-04-23 03:39 | NUR ---
NURSE NOTES: Endorsement received from HORTENCIA Echavarria for continuity of care. Patient opens eyes spontaneously. Orally intubated with ET 7.5, 23 lip line. AC 16 Vt 500, PEEP 5, 45%, No shortness of breath. GT patent and intact. Dressing dry. On Glucerna 1.2 45ml/hr with goal of 60ml/hr. Fraga catheter draining to urimeter. Left upper arm PICC, on D5 1/2NS at 75ml/hr. SCDs in place. With left soft wrist restraints for attempting to pull out tubes. Head of bed elevated. Bed alarm on. Call light within reach. Locked and in low position.
[2019-04-23] MEDS: LORazepam Inj 2mg/ml 1ml IV PRN ×2 (03:56→17:54)
--- NOTE | 2019-04-23 04:05 | NUR ---
NURSE NOTES: Patient awake, restless and bucking the vent. PRN Ativan IV given.
--- NOTE | 2019-04-23 06:00 | NUR ---
NURSE NOTES: Patient asleep. Appears comfortable. No shortness of breath. Blood sugar checked and insulin given as per sliding scale.
[2019-04-23] MEDS: NovoLOG Insulin Flexpen SUBQ SCH ×4 (06:05→23:27)
[2019-04-23] MEDS ORDERED: D5 1/2NS 1000ml IV ONE (06:14)
[2019-04-23] MEDS ORDERED: NS 275ml ONE (06:14)
--- NOTE | 2019-04-23 06:40 | NUR ---
NURSE NOTES: Was informed by lab engineer that the purple top for the CBC was clotted, informed him that the PICC line blood return was sluggish, although there was no resistance when flushed. air analysis engineering technician to redraw blood sample peripherally.
--- NOTE | 2019-04-23 07:00 | NUR ---
RESPIRATORY NOTE: Received patient on ordered vent settings. Airway is patent and secured. Suctioned patient PRN. Vent alarms are on and audible. Vent is plugged into red outlet. Will monitor patient progress.
[2019-04-23 07:08] LABS: ALANINE AMINOTRANSFERASE 14 U/L (12-78); ALBUMIN 1.2 G/DL (3.4-5.0); ALBUMIN/GLOBULIN RATIO 0.3 (1.0-2.7); ALKALINE PHOSPHATASE 80 U/L (46-116); ANION GAP 9 mmol/L (5-15); ASPARTATE AMINO TRANSFERASE 30 U/L (15-37); BILIRUBIN,TOTAL 0.3 MG/DL (0.2-1.0); BLOOD UREA NITROGEN 38 mg/dL (7-18); CALCIUM 7.8 MG/DL (8.5-10.1); CARBON DIOXIDE 21 MMOL/L (21-32); CHLORIDE 105 MMOL/L (98-107); CREATININE 1.7 MG/DL (0.55-1.30); PHOSPHORUS 3.2 MG/DL (2.5-4.9); POTASSIUM 3.9 MMOL/L (3.5-5.1); SODIUM 135 MMOL/L (136-145)
--- NOTE | 2019-04-23 07:29 | NUR ---
HAND-OFF: Report given to HORTENCIA Anthony.
--- NOTE | 2019-04-23 07:30 | NUR ---
NURSE NOTES: HEAD OF MEASUREMENT & INSIGHTS HERE TO DO CXR.
--- NOTE | 2019-04-23 07:40 | NUR ---
NURSE NOTES: Endorsement received from HORTENCIA Hunt Patient opens eyes to shaking, drowsy. pupils 3mm sluggish. BP 104/61, HR91, RR 16, O2SAT 100% Orally intubated with ET 7.5, 23 lip line. AC 16 Vt 500, PEEP 5, 45%, bilateral rhonchi, moderate secretions. abdomen soft, bowel sounds hypoactive. GT patent, Glucerna 1.2 45ml/hr with goal of 60ml/hr. Fraga catheter draining cloudy, light katja urine. Left upper arm PICC, on D5 1/2NS at 75ml/hr. SCDs in place. With left soft wrist restraints noted. circulation check. Head of bed elevated. Bed alarm on. Call light within reach. Locked and in low position.
--- NOTE | 2019-04-23 08:14 | NUR ---
RADIOLOGY DEPT., CHEST X-RAY DONE.-P.DYE
[2019-04-23 08:32] LABS: BASOPHILS % (AUTO) 0.3 % (0.0-2.0); HEMATOCRIT 25.8 % (37.0-47.0); HEMOGLOBIN 8.4 G/DL (12.0-16.0); LYMPHOCYTES % (AUTO) 9.2 % (20.0-45.0); MEAN CORPUSCULAR VOLUME 85 FL (80-99); MONOCYTES % (AUTO) 4.7 % (1.0-10.0); NEUTROPHILS % (AUTO) 84.8 % (45.0-75.0); PLATELET COUNT 141 K/UL (150-450); RED BLOOD COUNT 3.04 M/UL (4.20-5.40); RED CELL DISTRIBUTION WIDTH 14.3 % (11.6-14.8); WHITE BLOOD COUNT 13.2 K/UL (4.8-10.8)
--- NOTE | 2019-04-23 08:44 | General Progress Note ---
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 ICD Codes: E11.22 - Type 2 diabetes mellitus with diabetic chronic kidney disease; N18.4 - Chronic kidney disease, stage 4 (severe) SNOMED: 99604511, 853906553, 402739483 (7) Respiratory failure ICD Codes: J96.90 - Respiratory failure, unspecified, unspecified whether with hypoxia or hypercapnia SNOMED: 035431951 Qualifiers: Qualified Codes: J96.02 - Acute respiratory failure with hypercapnia Status: unchanged Assessment/Plan: pt diet abx o2 pulm tx neuro psyc eval cbc bmp am ltach eval Subjective Constitutional: Reports: weakness Allergies: Coded Allergies: No Known Allergies (Unverified , 04/12/19) All Systems: reviewed and negative except above Subjective intubated in icu Objective Last 24 Hour Vital Signs Date Time Temp Pulse Resp B/P (MAP) Pulse Ox O2 Delivery O2 Flow Rate FiO2 04/23/19 07:00 86 18 45 04/23/19 06:00 80 18 145/92 (109) 99 04/23/19 05:03 85 17 45 04/23/19 05:00 79 18 147/81 (103) 99 04/23/19 04:00 45 04/23/19 04:00 89 04/23/19 04:00 99.3 80 18 111/63 (79) 100 04/23/19 04:00 Mechanical Ventilator 04/23/19 03:00 85 18 129/63 (85) 99 04/23/19 02:38 90 22 45 04/23/19 02:00 91 18 138/69 (92) 99 04/23/19 01:00 90 21 142/76 (98) 99 04/23/19 00:56 84 22 45 04/23/19 00:00 Mechanical Ventilator 04/23/19 00:00 45 04/23/19 00:00 99.2 84 20 128/61 (83) 100 04/22/19 23:05 86 04/22/19 23:00 80 19 125/67 (86) 99 04/22/19 22:48 91 19 45 04/22/19 22:00 86 20 131/68 (89) 100 04/22/19 21:00 90 18 139/72 (94) 99 04/22/19 20:57 84 18 45 04/22/19 20:00 Mechanical Ventilator 04/22/19 20:00 45 04/22/19 20:00 99.8 80 19 133/72 (92) 100 04/22/19 19:17 84 04/22/19 19:14 81 19 45 04/22/19 19:00 84 21 141/70 (93) 99 04/22/19 18:00 80 21 132/68 (89) 99 04/22/19 17:00 81 21 140/69 (92) 99 04/22/19 16:50 77 21 45 04/22/19 16:00 98.4 78 19 135/86 (102) 99 04/22/19 16:00 78 04/22/19 16:00 Mechanical Ventilator 04/22/19 16:00 45 04/22/19 15:01 80 21 45 04/22/19 15:00 78 20 123/73 (90) 99 04/22/19 14:00 80 20 130/60 (83) 99 04/22/19 13:08 87 20 45 04/22/19 13:00 83 18 129/65 (86) 100 04/22/19 12:00 Mechanical Ventilator 04/22/19 12:00 86 04/22/19 12:00 86 17 122/60 (80) 100 04/22/19 12:00 45 04/22/19 11:09 78 18 45 04/22/19 11:00 86 16 127/64 (85) 100 04/22/19 10:00 83 17 124/71 (88) 95 04/22/19 09:30 89 18 133/69 (90) 100 04/22/19 09:08 85 16 100 04/22/19 09:06 85 16 100 04/22/19 09:00 88 19 123/77 (92) 100 04/22/19 08:53 88 22 45 Intake and Output 04/22/19 04/23/19 18:59 06:59 Intake Total 681.944 ml 1650 ml Output Total 520 ml 580 ml Balance 161.944 ml 1070 ml Intake Oral 0 ml 0 ml Free Water 300 ml IV Total 346.944 ml 900 ml Tube Feeding 85 ml 450 ml Blood Product 250 ml Output Urine Total 520 ml 580 ml # Bowel Movements 6 4 Laboratory Tests 04/22/19 19:30: White Blood Count 13.1H, Red Blood Count 3.25L, Hemoglobin 9.0L, Hematocrit 28.6L, Mean Corpuscular Volume 88, Mean Corpuscular Hemoglobin 27.5, Mean Corpuscular Hemoglobin Concent 31.4L, Red Cell Distribution Width 13.7, Platelet Count 159, Mean Platelet Volume 7.8, Neutrophils (%) (Auto) 81.0H, Lymphocytes (%) (Auto) 12.6L, Monocytes (%) (Auto) 5.4, Eosinophils (%) (Auto) 0.7, Basophils (%) (Auto) 0.4 04/23/19 04:30: Sodium Level 135L, Potassium Level 3.9, Chloride Level 105, Carbon Dioxide Level 21, Anion Gap 9, Blood Urea Nitrogen 38H, Creatinine 1.7H, Estimat Glomerular Filtration Rate , Glucose Level 147H, Calcium Level 7.8L, Phosphorus Level 3.2, Magnesium Level 2.1, Total Bilirubin 0.3, Aspartate Amino Transf (AST /SGOT) 30, Alanine Aminotransferase (ALT/SGPT) 14, Alkaline Phosphatase 80, C- Reactive Protein, Quantitative 19.5H, Pro-B-Type Natriuretic Peptide 59300T, Total Protein 5.6L, Albumin 1.2L, Globulin 4.4, Albumin/Globulin Ratio 0.3L 04/23/19 06:59: Arterial Blood pH 7.354, Arterial Blood Partial Pressure CO2 32.5L, Arterial Blood Partial Pressure O2 108.3H, Arterial Blood HCO3 17.7*L, Arterial Blood Oxygen Saturation 96.7, Arterial Blood Base Excess -7.0L, Marlo Test Positive 04/23/19 08:15: White Blood Count 13.2H, Red Blood Count 3.04L, Hemoglobin 8.4L, Hematocrit 25.8L, Mean Corpuscular Volume 85, Mean Corpuscular Hemoglobin 27.5, Mean Corpuscular Hemoglobin Concent 32.3, Red Cell Distribution Width 14.3, Platelet Count 141L, Mean Platelet Volume 8.1, Neutrophils (%) (Auto) 84.8H, Lymphocytes (%) (Auto) 9.2L, Monocytes (%) (Auto) 4.7, Eosinophils (%) (Auto) 1.0, Basophils (%) (Auto) 0.3 Height (Feet): 5 Height (Inches): 7.00 Weight (Pounds): 177 General Appearance: lethargic EENT: normal ENT inspection Neck: normal alignment Cardiovascular: normal peripheral pulses, normal rate, regular rhythm Respiratory/Chest: chest wall non-tender, lungs clear, decreased breath sounds Abdomen: normal bowel sounds, non tender, soft Extremities: normal inspection Edema: no edema noted Arm (L), no edema noted Arm (R), no edema noted Leg (L), no edema noted Leg (R), no edema noted Pedal (L), no edema noted Pedal (R), no edema noted Generalized Neurologic: motor weakness Skin: normal pigmentation, warm/dry Jama Keating DO Apr 23, 2019 08:44
[2019-04-23] MEDS: Midodrine 10mg tab NG SCH ×3 (09:00→17:35)
--- NOTE | 2019-04-23 09:25 | Diagnostic Imaging Report ---
Indication: Shortness of breath Technique: XRAY Chest 1v Comparison: 04/22/2019 Findings: Endotracheal tube remains in place. Heart size and mediastinal contours stable. Atherosclerotic calcifications again noted. Confluent, predominantly perihilar airspace disease is again noted, left greater than right. Overall findings are similar compared to the prior exam. No evidence of pneumothorax. Osseous structures stable. Gastrostomy tube partially visualized. Impression: Confluent prominent perihilar bilateral airspace opacities, left greater than right. Findings are similar compared to one day prior. Findings may be related to pulmonary edema and/or multifocal pneumonia. Clinical correlation/follow-up recommended. Endotracheal tube remains in place.
--- NOTE | 2019-04-23 09:52 | Nephrology Progress Note ---
Assessment/Plan Problem List: (1) Renal failure (ARF), acute on chronic (2) Diabetic nephropathy (3) Sepsis (4) Pneumonia (5) Right hemiplegia (6) Anemia in chronic kidney disease (CKD) (7) Pulmonary hypertension Assessment Breathing problem persists Renal failure; - Pre Renal - ? Underlying Renal Anemia Pneumonia / respiratory failure ? aspiration prone Sepsis elevated Troponin UTI HyperGlycemia / DM Right Esvin HTN Plan K Phos IV as needed venofer Folate 24 H urine protein check 2.4 gram Fraga Hydrate BP and BS control urine studies slow hydrate kidney MAIKEL results noted: No [place] 2D echo Noted visualized except distal setum and inferiro wall hypokinesis Left ventricular ejection fraction estimated to be 55-60 %. avoid Nephrotoxics per orders Subjective ROS Limited/Unobtainable: Yes Objective Objective Last 24 Hour Vital Signs Date Time Temp Pulse Resp B/P (MAP) Pulse Ox O2 Delivery O2 Flow Rate FiO2 04/23/19 07:00 86 18 45 04/23/19 06:00 80 18 145/92 (109) 99 04/23/19 05:03 85 17 45 04/23/19 05:00 79 18 147/81 (103) 99 04/23/19 04:00 45 04/23/19 04:00 89 04/23/19 04:00 99.3 80 18 111/63 (79) 100 04/23/19 04:00 Mechanical Ventilator 04/23/19 03:00 85 18 129/63 (85) 99 04/23/19 02:38 90 22 45 04/23/19 02:00 91 18 138/69 (92) 99 04/23/19 01:00 90 21 142/76 (98) 99 04/23/19 00:56 84 22 45 04/23/19 00:00 Mechanical Ventilator 04/23/19 00:00 45 04/23/19 00:00 99.2 84 20 128/61 (83) 100 04/22/19 23:05 86 04/22/19 23:00 80 19 125/67 (86) 99 04/22/19 22:48 91 19 45 04/22/19 22:00 86 20 131/68 (89) 100 04/22/19 21:00 90 18 139/72 (94) 99 04/22/19 20:57 84 18 45 04/22/19 20:00 Mechanical Ventilator 04/22/19 20:00 45 04/22/19 20:00 99.8 80 19 133/72 (92) 100 04/22/19 19:17 84 04/22/19 19:14 81 19 45 04/22/19 19:00 84 21 141/70 (93) 99 04/22/19 18:00 80 21 132/68 (89) 99 04/22/19 17:00 81 21 140/69 (92) 99 04/22/19 16:50 77 21 45 04/22/19 16:00 98.4 78 19 135/86 (102) 99 04/22/19 16:00 78 04/22/19 16:00 Mechanical Ventilator 04/22/19 16:00 45 04/22/19 15:01 80 21 45 04/22/19 15:00 78 20 123/73 (90) 99 04/22/19 14:00 80 20 130/60 (83) 99 04/22/19 13:08 87 20 45 04/22/19 13:00 83 18 129/65 (86) 100 04/22/19 12:00 Mechanical Ventilator 04/22/19 12:00 86 04/22/19 12:00 86 17 122/60 (80) 100 04/22/19 12:00 45 04/22/19 11:09 78 18 45 04/22/19 11:00 86 16 127/64 (85) 100 04/22/19 10:00 83 17 124/71 (88) 95 Intake and Output 04/22/19 04/23/19 19:00 07:00 Intake Total 716.944 ml 1540 ml Output Total 540 ml 560 ml Balance 176.944 ml 980 ml Intake Oral 0 ml Free Water 300 ml IV Total 346.944 ml 825 ml Tube Feeding 120 ml 415 ml Blood Product 250 ml Output Urine Total 540 ml 560 ml # Bowel Movements 9 1 Laboratory Tests 04/22/19 19:30: White Blood Count 13.1H, Red Blood Count 3.25L, Hemoglobin 9.0L, Hematocrit 28.6L, Mean Corpuscular Volume 88, Mean Corpuscular Hemoglobin 27.5, Mean Corpuscular Hemoglobin Concent 31.4L, Red Cell Distribution Width 13.7, Platelet Count 159, Mean Platelet Volume 7.8, Neutrophils (%) (Auto) 81.0H, Lymphocytes (%) (Auto) 12.6L, Monocytes (%) (Auto) 5.4, Eosinophils (%) (Auto) 0.7, Basophils (%) (Auto) 0.4 04/23/19 04:30: Sodium Level 135L, Potassium Level 3.9, Chloride Level 105, Carbon Dioxide Level 21, Anion Gap 9, Blood Urea Nitrogen 38H, Creatinine 1.7H, Estimat Glomerular Filtration Rate , Glucose Level 147H, Calcium Level 7.8L, Phosphorus Level 3.2, Magnesium Level 2.1, Total Bilirubin 0.3, Aspartate Amino Transf (AST /SGOT) 30, Alanine Aminotransferase (ALT/SGPT) 14, Alkaline Phosphatase 80, C- Reactive Protein, Quantitative 19.5H, Pro-B-Type Natriuretic Peptide 75330F, Total Protein 5.6L, Albumin 1.2L, Globulin 4.4, Albumin/Globulin Ratio 0.3L 04/23/19 06:59: Arterial Blood pH 7.354, Arterial Blood Partial Pressure CO2 32.5L, Arterial Blood Partial Pressure O2 108.3H, Arterial Blood HCO3 17.7*L, Arterial Blood Oxygen Saturation 96.7, Arterial Blood Base Excess -7.0L, Marlo Test Positive 04/23/19 08:15: White Blood Count 13.2H, Red Blood Count 3.04L, Hemoglobin 8.4L, Hematocrit 25.8L, Mean Corpuscular Volume 85, Mean Corpuscular Hemoglobin 27.5, Mean Corpuscular Hemoglobin Concent 32.3, Red Cell Distribution Width 14.3, Platelet Count 141L, Mean Platelet Volume 8.1, Neutrophils (%) (Auto) 84.8H, Lymphocytes (%) (Auto) 9.2L, Monocytes (%) (Auto) 4.7, Eosinophils (%) (Auto) 1.0, Basophils (%) (Auto) 0.3 Height (Feet): 5 Height (Inches): 7.00 Weight (Pounds): 177 EENT: other - vented Respiratory/Chest: decreased breath sounds Abdomen: distended, other - PEG Wally Spivey MD Apr 23, 2019 09:52
--- NOTE | 2019-04-23 10:06 | NUR ---
NURSE NOTES: MD LAWLER HERE TO SEE PT. INFORMED OF AM ABG PH 7.35, PCO2 32.5, P02 108.3, PHOC3 17.7, WILL MONITOR BICARB, PH WNL. NO NEW ORDERS AT THIS TIME.
--- NOTE | 2019-04-23 10:11 | Pulmonolgy Critical Care Note ---
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 (7) Hypertensive heart disease (8) Right hemiplegia (9) History of CVA (cerebrovascular accident) (10) CAD (coronary artery disease) Respiratory: monitor respiratory rate, adjust FIO2, CXR Cardiac: continue pressors, continue to monitor HR/BP Renal: F/U I&O Infectious Disease: check cultures, continue antibiotics Gastrointestinal: continue feedings/current rate Endocrine: monitor blood sugar Hematologic: monitor H/H, transfuse if hgb<8.5 Neurologic: PRN Ativan, keep patient comfortable Affect: PRN ativan Prophylaxis: Heparin Time Spent (Minutes): 40 Notes Reviewed: air grinder Discussed with: nurses, consultants, home health care case managerrecycling operations manager - Objective Last 24 Hour Vital Signs Date Time Temp Pulse Resp B/P (MAP) Pulse Ox O2 Delivery O2 Flow Rate FiO2 04/23/19 07:00 86 18 45 04/23/19 06:00 80 18 145/92 (109) 99 04/23/19 05:03 85 17 45 04/23/19 05:00 79 18 147/81 (103) 99 04/23/19 04:00 45 04/23/19 04:00 89 04/23/19 04:00 99.3 80 18 111/63 (79) 100 04/23/19 04:00 Mechanical Ventilator 04/23/19 03:00 85 18 129/63 (85) 99 04/23/19 02:38 90 22 45 04/23/19 02:00 91 18 138/69 (92) 99 04/23/19 01:00 90 21 142/76 (98) 99 04/23/19 00:56 84 22 45 04/23/19 00:00 Mechanical Ventilator 04/23/19 00:00 45 04/23/19 00:00 99.2 84 20 128/61 (83) 100 04/22/19 23:05 86 04/22/19 23:00 80 19 125/67 (86) 99 04/22/19 22:48 91 19 45 04/22/19 22:00 86 20 131/68 (89) 100 04/22/19 21:00 90 18 139/72 (94) 99 04/22/19 20:57 84 18 45 04/22/19 20:00 Mechanical Ventilator 04/22/19 20:00 45 04/22/19 20:00 99.8 80 19 133/72 (92) 100 04/22/19 19:17 84 04/22/19 19:14 81 19 45 04/22/19 19:00 84 21 141/70 (93) 99 04/22/19 18:00 80 21 132/68 (89) 99 04/22/19 17:00 81 21 140/69 (92) 99 04/22/19 16:50 77 21 45 04/22/19 16:00 98.4 78 19 135/86 (102) 99 04/22/19 16:00 78 04/22/19 16:00 Mechanical Ventilator 04/22/19 16:00 45 04/22/19 15:01 80 21 45 04/22/19 15:00 78 20 123/73 (90) 99 04/22/19 14:00 80 20 130/60 (83) 99 04/22/19 13:08 87 20 45 04/22/19 13:00 83 18 129/65 (86) 100 04/22/19 12:00 Mechanical Ventilator 04/22/19 12:00 86 04/22/19 12:00 86 17 122/60 (80) 100 04/22/19 12:00 45 04/22/19 11:09 78 18 45 04/22/19 11:00 86 16 127/64 (85) 100 Status: awake, sedated HEENT: atraumatic Neck: full ROM Lungs: rales, rhonchi Heart: HR/BP stable Abdomen: soft, non-tender Extremities: no C/C/E Decubiti: location Accucheck: 207 Critical Care - Subjective ROS Limited/Unobtainable: Yes Interval Events: sedated, orally intubated Condition: critical EKG Rhythm: Sinus Rhythm FI02: 45 Vent Support Breath Rate: 16 Vent Support Mode: AC Vent Tidal Volume: 500 Sputum Amount: Small PEEP: 5.0 PIP: 33 Tube Feeding Amount: 45 I&O: Intake and Output 04/22/19 04/23/19 18:59 06:59 Intake Total 681.944 ml 1650 ml Output Total 520 ml 580 ml Balance 161.944 ml 1070 ml Intake Oral 0 ml 0 ml Free Water 300 ml IV Total 346.944 ml 900 ml Tube Feeding 85 ml 450 ml Blood Product 250 ml Output Urine Total 520 ml 580 ml # Bowel Movements 6 4 CXR: Confluent prominent perihilar bilateral airspace opacities, left greater than right. Findings are similar compared to one day prior. Findings may be related to pulmonary edema and/or multifocal pneumonia. Clinical correlation/follow-up recommended. Endotracheal tube remains in place. ET-Tube: 7.5 ET Position: 23 Labs: Laboratory Tests Test 04/22/19 19:30 04/23/19 04:30 04/23/19 06:59 04/23/19 08:15 White Blood Count 13.1 K/UL (4.8-10.8) H 13.2 K/UL (4.8-10.8) H Red Blood Count 3.25 M/UL (4.20-5.40) L 3.04 M/UL (4.20-5.40) L Hemoglobin 9.0 G/DL (12.0-16.0) L 8.4 G/DL (12.0-16.0) L Hematocrit 28.6 % (37.0-47.0) L 25.8 % (37.0-47.0) L Mean Corpuscular Volume 88 FL (80-99) 85 FL (80-99) Mean Corpuscular Hemoglobin 27.5 PG (27.0-31.0) 27.5 PG (27.0-31.0) Mean Corpuscular Hemoglobin Concent 31.4 G/DL (32.0-36.0) L 32.3 G/DL (32.0-36.0) Red Cell Distribution Width 13.7 % (11.6-14.8) 14.3 % (11.6-14.8) Platelet Count 159 K/UL (150-450) 141 K/UL (150-450) L Mean Platelet Volume 7.8 FL (6.5-10.1) 8.1 FL (6.5-10.1) Neutrophils (%) (Auto) 81.0 % (45.0-75.0) H 84.8 % (45.0-75.0) H Lymphocytes (%) (Auto) 12.6 % (20.0-45.0) L 9.2 % (20.0-45.0) L Monocytes (%) (Auto) 5.4 % (1.0-10.0) 4.7 % (1.0-10.0) Eosinophils (%) (Auto) 0.7 % (0.0-3.0) 1.0 % (0.0-3.0) Basophils (%) (Auto) 0.4 % (0.0-2.0) 0.3 % (0.0-2.0) Sodium Level 135 MMOL/L (136-145) L Potassium Level 3.9 MMOL/L (3.5-5.1) Chloride Level 105 MMOL/L (98-107) Carbon Dioxide Level 21 MMOL/L (21-32) Anion Gap 9 mmol/L (5-15) Blood Urea Nitrogen 38 mg/dL (7-18) H Creatinine 1.7 MG/DL (0.55-1.30) H Estimat Glomerular Filtration Rate mL/min (>60) Glucose Level 147 MG/DL (74-106) H Calcium Level 7.8 MG/DL (8.5-10.1) L Phosphorus Level 3.2 MG/DL (2.5-4.9) Magnesium Level 2.1 MG/DL (1.8-2.4) Total Bilirubin 0.3 MG/DL (0.2-1.0) Aspartate Amino Transf (AST/SGOT) 30 U/L (15-37) Alanine Aminotransferase (ALT/SGPT) 14 U/L (12-78) Alkaline Phosphatase 80 U/L (46-116) C-Reactive Protein, Quantitative 19.5 mg/dL (0.00-0.90) H Pro-B-Type Natriuretic Peptide 36777 pg/mL (0-125) H Total Protein 5.6 G/DL (6.4-8.2) L Albumin 1.2 G/DL (3.4-5.0) L Globulin 4.4 g/dL Albumin/Globulin Ratio 0.3 (1.0-2.7) L Arterial Blood pH 7.354 (7.350-7.450) Arterial Blood Partial Pressure CO2 32.5 mmHg (35.0-45.0) L Arterial Blood Partial Pressure O2 108.3 mmHg (75.0-100.0) H Arterial Blood HCO3 17.7 mmol/L (22.0-26.0) *L Arterial Blood Oxygen Saturation 96.7 % (95-100) Arterial Blood Base Excess -7.0 (-2-2) L Marlo Test Positive Tony Springer MD Apr 23, 2019 10:11
--- NOTE | 2019-04-23 10:47 | Infectious Diseases Prog Note ---
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 PNA Pulmonary edema -04/19 CXR: There is less pulmonary edema compared to yesterday but with moderate residual edema. -04/16 CXR: . Right perihilar and bilateral lower lobe pulmonary consolidation concerning for pneumonia.Small bilateral pleural effusions. CXR - B/L Infiltrates Low grade fevers; SP WBCs up to 25; improving 04/16 Sp Cx - C. alb; 04/19 spC. albicans (colonizer) -BCx NTD -legionella ag urine neg Widened mediastinum - right sided aortic arch CXR - Apparent upper mediastinal widening. Possibly due to ectatic vasculature and body habitus, but upper mediastinal mass also possible. Correlate with any prior adiographs and may be available, consider CT for further evaluation if clinically indicated CT 04/13/19 - Right-sided aortic arch, presumably accounting for the apparent upper mediastinal widening demonstrated on recent plain radiograph. No evidence of upper mediastinal mass. Extensive bilateral lower lobe consolidation , likely pneumonia, less extensive left upper lobe consolidation. 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 CKD CAD PLAN Continue Cefepime #2 (abx d#04/02-10) for PNA -04/22 SP Meropenem #5 -04/20 SP Vancomycin #8 - 04/18/19 S/P Cefepime #6 - f/u cultures - Monitor CBC and Temps Thank you for this consult. We will continue to follow the patient during this hospitalization. Subjective Allergies: Coded Allergies: No Known Allergies (Unverified , 04/12/19) Subjective afebrile wbc improved Objective Vital Signs Last 24 Hour Vital Signs Date Time Temp Pulse Resp B/P (MAP) Pulse Ox O2 Delivery O2 Flow Rate FiO2 04/23/19 09:00 89 20 45 04/23/19 07:00 86 18 45 04/23/19 06:00 80 18 145/92 (109) 99 04/23/19 05:03 85 17 45 04/23/19 05:00 79 18 147/81 (103) 99 04/23/19 04:00 45 04/23/19 04:00 89 04/23/19 04:00 99.3 80 18 111/63 (79) 100 04/23/19 04:00 Mechanical Ventilator 04/23/19 03:00 85 18 129/63 (85) 99 04/23/19 02:38 90 22 45 04/23/19 02:00 91 18 138/69 (92) 99 04/23/19 01:00 90 21 142/76 (98) 99 04/23/19 00:56 84 22 45 04/23/19 00:00 Mechanical Ventilator 04/23/19 00:00 45 04/23/19 00:00 99.2 84 20 128/61 (83) 100 04/22/19 23:05 86 04/22/19 23:00 80 19 125/67 (86) 99 04/22/19 22:48 91 19 45 04/22/19 22:00 86 20 131/68 (89) 100 04/22/19 21:00 90 18 139/72 (94) 99 04/22/19 20:57 84 18 45 04/22/19 20:00 Mechanical Ventilator 04/22/19 20:00 45 04/22/19 20:00 99.8 80 19 133/72 (92) 100 04/22/19 19:17 84 04/22/19 19:14 81 19 45 04/22/19 19:00 84 21 141/70 (93) 99 04/22/19 18:00 80 21 132/68 (89) 99 04/22/19 17:00 81 21 140/69 (92) 99 04/22/19 16:50 77 21 45 04/22/19 16:00 98.4 78 19 135/86 (102) 99 04/22/19 16:00 78 04/22/19 16:00 Mechanical Ventilator 04/22/19 16:00 45 04/22/19 15:01 80 21 45 04/22/19 15:00 78 20 123/73 (90) 99 04/22/19 14:00 80 20 130/60 (83) 99 04/22/19 13:08 87 20 45 04/22/19 13:00 83 18 129/65 (86) 100 04/22/19 12:00 Mechanical Ventilator 04/22/19 12:00 86 04/22/19 12:00 86 17 122/60 (80) 100 04/22/19 12:00 45 04/22/19 11:09 78 18 45 04/22/19 11:00 86 16 127/64 (85) 100 Height (Feet): 5 Height (Inches): 7.00 Weight (Pounds): 177 Objective Gen: Awake and talking HEENT: NCAT, MMM, EOMI LUNGS: CTAB, No W CARDS: RRR, S1, S2, No M/R/G, ABD: Soft, NT, ND Laboratory Tests Test 04/22/19 19:30 04/23/19 04:30 04/23/19 06:59 04/23/19 08:15 White Blood Count 13.1 K/UL (4.8-10.8) H 13.2 K/UL (4.8-10.8) H Red Blood Count 3.25 M/UL (4.20-5.40) L 3.04 M/UL (4.20-5.40) L Hemoglobin 9.0 G/DL (12.0-16.0) L 8.4 G/DL (12.0-16.0) L Hematocrit 28.6 % (37.0-47.0) L 25.8 % (37.0-47.0) L Mean Corpuscular Volume 88 FL (80-99) 85 FL (80-99) Mean Corpuscular Hemoglobin 27.5 PG (27.0-31.0) 27.5 PG (27.0-31.0) Mean Corpuscular Hemoglobin Concent 31.4 G/DL (32.0-36.0) L 32.3 G/DL (32.0-36.0) Red Cell Distribution Width 13.7 % (11.6-14.8) 14.3 % (11.6-14.8) Platelet Count 159 K/UL (150-450) 141 K/UL (150-450) L Mean Platelet Volume 7.8 FL (6.5-10.1) 8.1 FL (6.5-10.1) Neutrophils (%) (Auto) 81.0 % (45.0-75.0) H 84.8 % (45.0-75.0) H Lymphocytes (%) (Auto) 12.6 % (20.0-45.0) L 9.2 % (20.0-45.0) L Monocytes (%) (Auto) 5.4 % (1.0-10.0) 4.7 % (1.0-10.0) Eosinophils (%) (Auto) 0.7 % (0.0-3.0) 1.0 % (0.0-3.0) Basophils (%) (Auto) 0.4 % (0.0-2.0) 0.3 % (0.0-2.0) Sodium Level 135 MMOL/L (136-145) L Potassium Level 3.9 MMOL/L (3.5-5.1) Chloride Level 105 MMOL/L (98-107) Carbon Dioxide Level 21 MMOL/L (21-32) Anion Gap 9 mmol/L (5-15) Blood Urea Nitrogen 38 mg/dL (7-18) H Creatinine 1.7 MG/DL (0.55-1.30) H Estimat Glomerular Filtration Rate mL/min (>60) Glucose Level 147 MG/DL (74-106) H Calcium Level 7.8 MG/DL (8.5-10.1) L Phosphorus Level 3.2 MG/DL (2.5-4.9) Magnesium Level 2.1 MG/DL (1.8-2.4) Total Bilirubin 0.3 MG/DL (0.2-1.0) Aspartate Amino Transf (AST/SGOT) 30 U/L (15-37) Alanine Aminotransferase (ALT/SGPT) 14 U/L (12-78) Alkaline Phosphatase 80 U/L (46-116) C-Reactive Protein, Quantitative 19.5 mg/dL (0.00-0.90) H Pro-B-Type Natriuretic Peptide 56669 pg/mL (0-125) H Total Protein 5.6 G/DL (6.4-8.2) L Albumin 1.2 G/DL (3.4-5.0) L Globulin 4.4 g/dL Albumin/Globulin Ratio 0.3 (1.0-2.7) L Arterial Blood pH 7.354 (7.350-7.450) Arterial Blood Partial Pressure CO2 32.5 mmHg (35.0-45.0) L Arterial Blood Partial Pressure O2 108.3 mmHg (75.0-100.0) H Arterial Blood HCO3 17.7 mmol/L (22.0-26.0) *L Arterial Blood Oxygen Saturation 96.7 % (95-100) Arterial Blood Base Excess -7.0 (-2-2) L Marlo Test Positive Current Medications Medications (Trade) Dose Ordered Sig/Kenisha Route PRN Reason Start Time Stop Time Status Last Admin Dose Admin Acetaminophen (Tylenol) 650 mg Q4H PRN ORAL FEVER 04/17/19 12:36 05/17/19 12:35 Acetaminophen (Tylenol) 650 mg Q4H PRN RECTAL Fever 04/17/19 12:36 05/17/19 12:35 04/18/19 08:53 Cefepime HCl 1 gm/ Dextrose 55 ml @ 110 mls/hr Q24H IVPB 04/22/19 12:00 04/29/19 11:59 04/22/19 12:25 Chlorhexidine Gluconate (Izzy-Hex 2%) 1 applic DAILY@2000 TOPIC 04/20/19 20:00 05/20/19 19:59 04/22/19 19:42 Dextrose (Dextrose 50%) 25 ml Q30M PRN IV Hypoglycemia 04/17/19 12:45 05/12/19 19:44 Dextrose (Dextrose 50%) 50 ml Q30M PRN IV Hypoglycemia 04/17/19 12:45 05/12/19 19:44 Epoetin Bandar (Epoetin Bandar-EPBX(NON ESRD)) 10,000 unit FRI-FRI-FRI SUBQ 04/19/19 21:00 05/16/19 20:59 04/21/19 20:37 Folic Acid (Folate) 5 mg DAILY ORAL 04/22/19 09:00 05/19/19 08:59 04/23/19 09:59 Hydralazine HCl (Apresoline) 10 mg Q2H PRN IV For High Blood Pressure 04/17/19 12:36 05/17/19 12:35 Insulin Aspart (NovoLOG) Q6HR SUBQ 04/20/19 18:00 05/20/19 17:59 04/23/19 06:05 Lansoprazole (Prevacid) 30 mg DAILY GT 04/22/19 09:00 05/22/19 08:59 04/23/19 09:59 Lorazepam (Ativan 2mg/ml 1ml) 2 mg Q4H PRN IV For Anxiety 04/20/19 11:00 04/27/19 10:59 04/23/19 03:56 Lorazepam (Ativan) 0.5 mg Q6H PRN ORAL For Anxiety 04/17/19 12:37 04/24/19 12:36 Midodrine (Pro-Amatine) 10 mg THREE TIMES A DAY NG 04/21/19 13:00 05/21/19 12:59 04/22/19 08:53 Morphine Sulfate (Morphine Sulfate) 4 mg Q4H PRN IVP For Pain 04/20/19 11:00 04/27/19 10:59 Ondansetron HCl (Zofran) 4 mg Q6H PRN IVP Nausea & Vomiting 04/17/19 12:37 05/17/19 12:36 Polyethylene Glycol (Miralax) 17 gm DAILYPRN PRN ORAL Constipation 04/17/19 12:37 05/17/19 12:36 04/23/19 10:31 Cora Baer M.D. Apr 23, 2019 10:47
--- NOTE | 2019-04-23 11:59 | General Progress Note ---
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 ICD Codes: E11.22 - Type 2 diabetes mellitus with diabetic chronic kidney disease; N18.4 - Chronic kidney disease, stage 4 (severe) SNOMED: 69226847, 672890776, 957501006 (3) Diabetes mellitus ICD Codes: E11.9 - Type 2 diabetes mellitus without complications SNOMED: 94634750 (4) CAD (coronary artery disease) ICD Codes: I25.10 - Atherosclerotic heart disease of [place] coronary artery without angina pectoris SNOMED: 24209880 (5) History of CVA (cerebrovascular accident) ICD Codes: Z86.73 - Personal history of transient ischemic attack (TIA), and cerebral infarction without residual deficits SNOMED: 472822749 (6) Anemia in chronic kidney disease (CKD) ICD Codes: N18.9 - Chronic kidney disease, unspecified; D63.1 - Anemia in chronic kidney disease SNOMED: 323437504 (7) Diabetic nephropathy ICD Codes: E11.21 - Type 2 diabetes mellitus with diabetic nephropathy SNOMED: 212364881 Status: unchanged Assessment/Plan: intubated GTF fu labs fu pulm recs Subjective ROS Limited/Unobtainable: No Allergies: Coded Allergies: No Known Allergies (Unverified , 04/12/19) Objective Last 24 Hour Vital Signs Date Time Temp Pulse Resp B/P (MAP) Pulse Ox O2 Delivery O2 Flow Rate FiO2 04/23/19 10:52 87 20 45 04/23/19 09:00 89 20 45 04/23/19 08:00 Mechanical Ventilator 04/23/19 08:00 45 04/23/19 07:00 86 18 45 04/23/19 06:00 80 18 145/92 (109) 99 04/23/19 05:03 85 17 45 04/23/19 05:00 79 18 147/81 (103) 99 04/23/19 04:00 45 04/23/19 04:00 89 04/23/19 04:00 99.3 80 18 111/63 (79) 100 04/23/19 04:00 Mechanical Ventilator 04/23/19 03:00 85 18 129/63 (85) 99 04/23/19 02:38 90 22 45 04/23/19 02:00 91 18 138/69 (92) 99 04/23/19 01:00 90 21 142/76 (98) 99 04/23/19 00:56 84 22 45 04/23/19 00:00 Mechanical Ventilator 04/23/19 00:00 45 04/23/19 00:00 99.2 84 20 128/61 (83) 100 04/22/19 23:05 86 04/22/19 23:00 80 19 125/67 (86) 99 04/22/19 22:48 91 19 45 04/22/19 22:00 86 20 131/68 (89) 100 04/22/19 21:00 90 18 139/72 (94) 99 04/22/19 20:57 84 18 45 04/22/19 20:00 Mechanical Ventilator 04/22/19 20:00 45 04/22/19 20:00 99.8 80 19 133/72 (92) 100 04/22/19 19:17 84 04/22/19 19:14 81 19 45 04/22/19 19:00 84 21 141/70 (93) 99 04/22/19 18:00 80 21 132/68 (89) 99 04/22/19 17:00 81 21 140/69 (92) 99 04/22/19 16:50 77 21 45 04/22/19 16:00 98.4 78 19 135/86 (102) 99 04/22/19 16:00 78 04/22/19 16:00 Mechanical Ventilator 04/22/19 16:00 45 04/22/19 15:01 80 21 45 04/22/19 15:00 78 20 123/73 (90) 99 04/22/19 14:00 80 20 130/60 (83) 99 04/22/19 13:08 87 20 45 04/22/19 13:00 83 18 129/65 (86) 100 04/22/19 12:00 Mechanical Ventilator 04/22/19 12:00 86 04/22/19 12:00 86 17 122/60 (80) 100 04/22/19 12:00 45 Intake and Output 04/22/19 04/23/19 18:59 06:59 Intake Total 681.944 ml 1650 ml Output Total 520 ml 580 ml Balance 161.944 ml 1070 ml Intake Oral 0 ml 0 ml Free Water 300 ml IV Total 346.944 ml 900 ml Tube Feeding 85 ml 450 ml Blood Product 250 ml Output Urine Total 520 ml 580 ml # Bowel Movements 6 4 Laboratory Tests 04/22/19 19:30: White Blood Count 13.1H, Red Blood Count 3.25L, Hemoglobin 9.0L, Hematocrit 28.6L, Mean Corpuscular Volume 88, Mean Corpuscular Hemoglobin 27.5, Mean Corpuscular Hemoglobin Concent 31.4L, Red Cell Distribution Width 13.7, Platelet Count 159, Mean Platelet Volume 7.8, Neutrophils (%) (Auto) 81.0H, Lymphocytes (%) (Auto) 12.6L, Monocytes (%) (Auto) 5.4, Eosinophils (%) (Auto) 0.7, Basophils (%) (Auto) 0.4 04/23/19 04:30: Sodium Level 135L, Potassium Level 3.9, Chloride Level 105, Carbon Dioxide Level 21, Anion Gap 9, Blood Urea Nitrogen 38H, Creatinine 1.7H, Estimat Glomerular Filtration Rate , Glucose Level 147H, Calcium Level 7.8L, Phosphorus Level 3.2, Magnesium Level 2.1, Total Bilirubin 0.3, Aspartate Amino Transf (AST /SGOT) 30, Alanine Aminotransferase (ALT/SGPT) 14, Alkaline Phosphatase 80, C- Reactive Protein, Quantitative 19.5H, Pro-B-Type Natriuretic Peptide 74306F, Total Protein 5.6L, Albumin 1.2L, Globulin 4.4, Albumin/Globulin Ratio 0.3L 04/23/19 06:59: Arterial Blood pH 7.354, Arterial Blood Partial Pressure CO2 32.5L, Arterial Blood Partial Pressure O2 108.3H, Arterial Blood HCO3 17.7*L, Arterial Blood Oxygen Saturation 96.7, Arterial Blood Base Excess -7.0L, Marlo Test Positive 04/23/19 08:15: White Blood Count 13.2H, Red Blood Count 3.04L, Hemoglobin 8.4L, Hematocrit 25.8L, Mean Corpuscular Volume 85, Mean Corpuscular Hemoglobin 27.5, Mean Corpuscular Hemoglobin Concent 32.3, Red Cell Distribution Width 14.3, Platelet Count 141L, Mean Platelet Volume 8.1, Neutrophils (%) (Auto) 84.8H, Lymphocytes (%) (Auto) 9.2L, Monocytes (%) (Auto) 4.7, Eosinophils (%) (Auto) 1.0, Basophils (%) (Auto) 0.3 Height (Feet): 5 Height (Inches): 7.00 Weight (Pounds): 177 General Appearance: lethargic EENT: normal ENT inspection Neck: supple Cardiovascular: normal rate Respiratory/Chest: decreased breath sounds Abdomen: normal bowel sounds, non tender, soft Extremities: non-tender Darron Gentile MD Apr 23, 2019 11:59
--- NOTE | 2019-04-23 12:00 | NUR ---
NURSE NOTES: Turned and repositioned. x1 large soft BM, new dressing applied on right buttock with calazime. secretions suctioned. Patient alert, able to make eye contact . bed alarm on. will continue to monitor
[2019-04-23] MEDS: Cefepime HCl 1 GM in D5W 55 ML IVPB SCH (12:30)
--- NOTE | 2019-04-23 12:53 | Cardiac Electrophysiology PN ---
Assessment/Plan Assessment/Plan 1. Atrial flutter, self terminated. Off Lopressor for low BP 2. Hypotension. On Midodrine 10 tid 3. Coronary artery disease. On Plavix 75 mg daily 4. Respiratory failure, intubated EF 60% 5. Sepsis. White count 25,000. On IV abx improved to 13K 6. Anemia.S/P PRBC 7. Renal failure BUN/Cr improved to 38/1.[address] Spivey 8. Dysphagia. S/P PEG 04/22/19 9. History of CVA with hemiplegia. 10. Nonverbal status. 11. Full code DW RN Subjective Subjective Intubated in ICU.S/P PEG yesterday. No flutter overnight. Off pressors Objective Last 24 Hour Vital Signs Date Time Temp Pulse Resp B/P (MAP) Pulse Ox O2 Delivery O2 Flow Rate FiO2 04/23/19 12:00 81 04/23/19 11:00 89 16 85/45 (58) 99 04/23/19 10:52 87 20 45 04/23/19 10:00 91 17 127/63 (84) 100 04/23/19 09:00 89 20 45 04/23/19 09:00 84 18 127/75 (92) 100 04/23/19 08:00 91 16 111/69 (83) 100 04/23/19 08:00 87 04/23/19 08:00 Mechanical Ventilator 04/23/19 08:00 45 04/23/19 07:00 100.6 86 17 129/63 (85) 100 04/23/19 07:00 86 18 45 04/23/19 06:00 80 18 145/92 (109) 99 04/23/19 05:03 85 17 45 04/23/19 05:00 79 18 147/81 (103) 99 04/23/19 04:00 45 04/23/19 04:00 89 04/23/19 04:00 99.3 80 18 111/63 (79) 100 04/23/19 04:00 Mechanical Ventilator 04/23/19 03:00 85 18 129/63 (85) 99 04/23/19 02:38 90 22 45 04/23/19 02:00 91 18 138/69 (92) 99 04/23/19 01:00 90 21 142/76 (98) 99 04/23/19 00:56 84 22 45 04/23/19 00:00 Mechanical Ventilator 04/23/19 00:00 45 04/23/19 00:00 99.2 84 20 128/61 (83) 100 04/22/19 23:05 86 04/22/19 23:00 80 19 125/67 (86) 99 04/22/19 22:48 91 19 45 04/22/19 22:00 86 20 131/68 (89) 100 04/22/19 21:00 90 18 139/72 (94) 99 04/22/19 20:57 84 18 45 04/22/19 20:00 Mechanical Ventilator 04/22/19 20:00 45 04/22/19 20:00 99.8 80 19 133/72 (92) 100 04/22/19 19:17 84 04/22/19 19:14 81 19 45 04/22/19 19:00 84 21 141/70 (93) 99 04/22/19 18:00 80 21 132/68 (89) 99 04/22/19 17:00 81 21 140/69 (92) 99 04/22/19 16:50 77 21 45 04/22/19 16:00 98.4 78 19 135/86 (102) 99 04/22/19 16:00 78 04/22/19 16:00 Mechanical Ventilator 04/22/19 16:00 45 04/22/19 15:01 80 21 45 04/22/19 15:00 78 20 123/73 (90) 99 04/22/19 14:00 80 20 130/60 (83) 99 04/22/19 13:08 87 20 45 04/22/19 13:00 83 18 129/65 (86) 100 Intake and Output 04/22/19 04/23/19 18:59 06:59 Intake Total 681.944 ml 1650 ml Output Total 520 ml 580 ml Balance 161.944 ml 1070 ml Intake Oral 0 ml 0 ml Free Water 300 ml IV Total 346.944 ml 900 ml Tube Feeding 85 ml 450 ml Blood Product 250 ml Output Urine Total 520 ml 580 ml # Bowel Movements 6 4 Laboratory Tests Test 04/22/19 19:30 04/23/19 04:30 04/23/19 06:59 04/23/19 08:15 White Blood Count 13.1 K/UL (4.8-10.8) H 13.2 K/UL (4.8-10.8) H Red Blood Count 3.25 M/UL (4.20-5.40) L 3.04 M/UL (4.20-5.40) L Hemoglobin 9.0 G/DL (12.0-16.0) L 8.4 G/DL (12.0-16.0) L Hematocrit 28.6 % (37.0-47.0) L 25.8 % (37.0-47.0) L Mean Corpuscular Volume 88 FL (80-99) 85 FL (80-99) Mean Corpuscular Hemoglobin 27.5 PG (27.0-31.0) 27.5 PG (27.0-31.0) Mean Corpuscular Hemoglobin Concent 31.4 G/DL (32.0-36.0) L 32.3 G/DL (32.0-36.0) Red Cell Distribution Width 13.7 % (11.6-14.8) 14.3 % (11.6-14.8) Platelet Count 159 K/UL (150-450) 141 K/UL (150-450) L Mean Platelet Volume 7.8 FL (6.5-10.1) 8.1 FL (6.5-10.1) Neutrophils (%) (Auto) 81.0 % (45.0-75.0) H 84.8 % (45.0-75.0) H Lymphocytes (%) (Auto) 12.6 % (20.0-45.0) L 9.2 % (20.0-45.0) L Monocytes (%) (Auto) 5.4 % (1.0-10.0) 4.7 % (1.0-10.0) Eosinophils (%) (Auto) 0.7 % (0.0-3.0) 1.0 % (0.0-3.0) Basophils (%) (Auto) 0.4 % (0.0-2.0) 0.3 % (0.0-2.0) Sodium Level 135 MMOL/L (136-145) L Potassium Level 3.9 MMOL/L (3.5-5.1) Chloride Level 105 MMOL/L (98-107) Carbon Dioxide Level 21 MMOL/L (21-32) Anion Gap 9 mmol/L (5-15) Blood Urea Nitrogen 38 mg/dL (7-18) H Creatinine 1.7 MG/DL (0.55-1.30) H Estimat Glomerular Filtration Rate mL/min (>60) Glucose Level 147 MG/DL (74-106) H Calcium Level 7.8 MG/DL (8.5-10.1) L Phosphorus Level 3.2 MG/DL (2.5-4.9) Magnesium Level 2.1 MG/DL (1.8-2.4) Total Bilirubin 0.3 MG/DL (0.2-1.0) Aspartate Amino Transf (AST/SGOT) 30 U/L (15-37) Alanine Aminotransferase (ALT/SGPT) 14 U/L (12-78) Alkaline Phosphatase 80 U/L (46-116) C-Reactive Protein, Quantitative 19.5 mg/dL (0.00-0.90) H Pro-B-Type Natriuretic Peptide 75140 pg/mL (0-125) H Total Protein 5.6 G/DL (6.4-8.2) L Albumin 1.2 G/DL (3.4-5.0) L Globulin 4.4 g/dL Albumin/Globulin Ratio 0.3 (1.0-2.7) L Arterial Blood pH 7.354 (7.350-7.450) Arterial Blood Partial Pressure CO2 32.5 mmHg (35.0-45.0) L Arterial Blood Partial Pressure O2 108.3 mmHg (75.0-100.0) H Arterial Blood HCO3 17.7 mmol/L (22.0-26.0) *L Arterial Blood Oxygen Saturation 96.7 % (95-100) Arterial Blood Base Excess -7.0 (-2-2) L Marlo Test Positive Objective HEAD AND NECK: No JVD. Orally intubated LUNGS: Coarse rhonchi bilaterally. CARDIOVASCULAR: Regular S1 and S2 with no gallop. ABDOMEN: Soft.PEG in place EXTREMITIES: No pitting edema. Claude Pena MD Apr 23, 2019 12:53
--- NOTE | 2019-04-23 14:56 | NUR ---
CASE MANAGEMENT:REVIEW 04/23/19 SI: ACUTE RESPIRATORY FAILURE ENCEPHALOPATHY. PNA FOR EGD/PEG PLACEMENT TODAY 100.6 86 18 129/63 100% ON VENT SUPPORT @ 45%C FIO2 WBC=13.2 H/H-8.4/25.8 PLT-141 BUN+38 CR=1.7 PCO2-32.5 HCO3-17.7 IS: IV CEFEPIME Q24 EPOETIN SQ MWF : ICU STATUS INTUBATED DCP: FROM [facility]
--- NOTE | 2019-04-23 15:24 | NUR ---
*-* INSURANCE *-* UPDATED CLINICALS HAVE BEEN FAXED TO: [facility] white# [id number] P: [phone] F: [phone] (FAX CLINICALS)
--- NOTE | 2019-04-23 16:20 | NUR ---
NURSE NOTES: Patient asleep. Appears comfortable. No shortness of breath. will continue to implement plan of care.
--- NOTE | 2019-04-23 18:00 | NUR ---
NURSE NOTES: Patient awake, restless and biting the vent tubing. PRN Ativan IV given.
--- NOTE | 2019-04-23 18:15 | Progress Note ---
DATE: 04/23/2019 SUBJECTIVE: This is a 79-year-old female patient with sepsis. She has altered mental status and confusion. She is in the ICU, very confused, disorganized, and mood labile. She has got no logical plan for own self-care. She is very confused and disorganized. DIAGNOSIS: Major depressive disorder, mild, recurrent with psychotic features, rule out dementia with psychosis. PLAN: Treat with Ativan 2 mg IV every 4 hours p.r.n. anxiety and agitation. Provided with 20 minutes of reality-based supportive psychotherapy. Chart reviewed. Discussed with staff. Seen and assessed in her room. 20 minutes of behavioral management provided. Omar Glover M.D. DR: RELL JOB#: [id number] CC:
--- NOTE | 2019-04-23 19:01 | NUR ---
RESPIRATORY NOTE: Received pt on AC 16, 500VT, 45%, PEEP +5. Pt intubated w/ ETT 7.5 @ 23cm lipline, secured by anchorfast. Pt asleep, responds to stimuli. B/S enmanuel. rhonchi, sxn small amounts of thick/thin, frothy, marin-yellow secretions. Bite block in place as pt tends to bite down ETT. Left hand on soft restraints to prevent pt from self-extubation. Pt unable to move right hand. Vent plugged into red outlet, ambubag at bedside. pt in no apparent distress at this time. Will continue to monitor pt.
--- NOTE | 2019-04-23 19:20 | NUR ---
NURSE NOTES: Received patient from HORTENCIA Anthony. Patient is wake with eyes opened. ET tube 7.5 at 23cm li[address]ine in place with setting of AC:16, TV:500, FiO2:45%, PEEP:5. On Gtube feeding of Glucerna 1.2 @ 60ml/hr. Fraga is in tact and draining. Will continue plan of care.
--- NOTE | 2019-04-23 20:00 | NUR ---
NURSE NOTES: Patient is resting comfortably. Vital signs are stable. BP:123/68 Temp:97.7F, HR:90, Resp:19. Will continue plan of care.
--- NOTE | 2019-04-23 20:01 | NUR ---
HAND-OFF: Report given to Ginny BURNETT.pt in no acute distress.
[2019-04-23] MEDS: Dyna-Hex 2% Top Sol 2oz TOPIC SCH (21:09)
[2019-04-23] MEDS: Epoetin Alfa-EPBX (NON ESRD)10,000 unit/ml vial SUBQ SCH (21:10)
--- NOTE | 2019-04-23 22:00 | NUR ---
NURSE NOTES: Patient is resting comfortably. Vital signs are stable. Patient repositioned. ET tubing is checked at its placement. Will continue plan of care.
--- NOTE | 2019-04-23 23:23 | Neurology Progress Note ---
Interim History Interim History ROS Limited/Unobtainable: No Complaints: AMS Events: Weaning attempts unsuccessful, PEG placed/awaiting Trach Interim History This visit was performed on April 23, [address] Geo Espitia. Objective Physical Exam Last Vital Signs Date Time Temp Pulse Resp B/P (MAP) Pulse Ox O2 Delivery O2 Flow Rate FiO2 04/23/19 23:12 80 16 45 04/23/19 22:00 128/106 (113) 100 04/23/19 20:00 97.7 04/23/19 20:00 Mechanical Ventilator 04/17/19 05:22 2.0 Laboratory Tests Test 04/23/19 04:30 04/23/19 06:59 04/23/19 08:15 Sodium Level 135 MMOL/L (136-145) L Potassium Level 3.9 MMOL/L (3.5-5.1) Chloride Level 105 MMOL/L (98-107) Carbon Dioxide Level 21 MMOL/L (21-32) Anion Gap 9 mmol/L (5-15) Blood Urea Nitrogen 38 mg/dL (7-18) H Creatinine 1.7 MG/DL (0.55-1.30) H Estimat Glomerular Filtration Rate mL/min (>60) Glucose Level 147 MG/DL (74-106) H Calcium Level 7.8 MG/DL (8.5-10.1) L Phosphorus Level 3.2 MG/DL (2.5-4.9) Magnesium Level 2.1 MG/DL (1.8-2.4) Total Bilirubin 0.3 MG/DL (0.2-1.0) Aspartate Amino Transf (AST/SGOT) 30 U/L (15-37) Alanine Aminotransferase (ALT/SGPT) 14 U/L (12-78) Alkaline Phosphatase 80 U/L (46-116) C-Reactive Protein, Quantitative 19.5 mg/dL (0.00-0.90) H Pro-B-Type Natriuretic Peptide 40370 pg/mL (0-125) H Total Protein 5.6 G/DL (6.4-8.2) L Albumin 1.2 G/DL (3.4-5.0) L Globulin 4.4 g/dL Albumin/Globulin Ratio 0.3 (1.0-2.7) L Arterial Blood pH 7.354 (7.350-7.450) Arterial Blood Partial Pressure CO2 32.5 mmHg (35.0-45.0) L Arterial Blood Partial Pressure O2 108.3 mmHg (75.0-100.0) H Arterial Blood HCO3 17.7 mmol/L (22.0-26.0) *L Arterial Blood Oxygen Saturation 96.7 % (95-100) Arterial Blood Base Excess -7.0 (-2-2) L Marlo Test Positive White Blood Count 13.2 K/UL (4.8-10.8) H Red Blood Count 3.04 M/UL (4.20-5.40) L Hemoglobin 8.4 G/DL (12.0-16.0) L Hematocrit 25.8 % (37.0-47.0) L Mean Corpuscular Volume 85 FL (80-99) Mean Corpuscular Hemoglobin 27.5 PG (27.0-31.0) Mean Corpuscular Hemoglobin Concent 32.3 G/DL (32.0-36.0) Red Cell Distribution Width 14.3 % (11.6-14.8) Platelet Count 141 K/UL (150-450) L Mean Platelet Volume 8.1 FL (6.5-10.1) Neutrophils (%) (Auto) 84.8 % (45.0-75.0) H Lymphocytes (%) (Auto) 9.2 % (20.0-45.0) L Monocytes (%) (Auto) 4.7 % (1.0-10.0) Eosinophils (%) (Auto) 1.0 % (0.0-3.0) Basophils (%) (Auto) 0.3 % (0.0-2.0) General: well developed, well nourished, no acute distress Head: normocophalic Neck: no rigidity EENT: benign Neurologic Exam Mental Status: awake, other Speech: other Language: other Cranial Nerve II: fundus normal, visual cruz, no papilledema, other Cranial Nerves III, IV, : PERRLA, EOMI, other Cranial Nerve V: other Cranial Nerve VII: other Cranial Nerve VIII: other Cranial Nerve IX: other Cranial Nerve XI: other Cranial Nerve XII: other Motor System: other Sensory: other Coordination: other Gait: other Objective Right Hemiplegia at baseline- not following commands, eyes opening to noxious stimuli. Previously on BIPAP, now intubated since 04/20/19 due to respiratory failure while in ICU on BIPAP. She is alert, eyes opening to voice and noxious stimuli. She triple flexes in left leg and arm. Right hemiparesis apparent with minimal withdrawal flexion on right UE/LE. 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 PEG feeds when able Trach Planned Critical care time of 40 minutes, was performed in order to assess and manage the high probability of imminent or life threatening deterioration to respiratory/neurologic function, with frequent reassessment and excludes all billable procedures. Phyllis Diop N.P. Apr 23, 2019 23:23
[2019-04-24] VITALS (24 sets, daily range): BP systolic 95–153; BP diastolic 51–80
--- NOTE | 2019-04-24 | NUR ---
NURSE NOTES: Patient is resting comfortably, not showing any signs and symptoms of pain or distress. Patient suctioned saturating at 100%. TKO and IV lines are changed. Will continue plan of care.
--- NOTE | 2019-04-24 02:00 | NUR ---
NURSE NOTES: Patient is stable. Bed bath and suctioning provided. I BM noted; large, soft and brown. Wound care provided and dressing changed. Patient repositioned, will continue plan of care.
--- NOTE | 2019-04-24 04:00 | NUR ---
NURSE NOTES: Patient is asleep. Suctioning provide. Shows no signs of pain and distress, vital signs stable, O2 saturating at 100%. Will continue to monitor.
[2019-04-24] MEDS: NovoLOG Insulin Flexpen SUBQ SCH ×3 (05:25→18:06)
--- NOTE | 2019-04-24 05:54 | Pulmonolgy Critical Care Note ---
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 (7) Hypertensive heart disease (8) Right hemiplegia (9) History of CVA (cerebrovascular accident) (10) CAD (coronary artery disease) Respiratory: monitor respiratory rate, adjust FIO2, CXR Cardiac: continue to monitor HR/BP Renal: F/U I&O, keep IV fluid, check electrolytes Infectious Disease: check cultures, continue antibiotics Gastrointestinal: continue feedings/current rate Endocrine: monitor blood sugar, continue sliding scale insulin Hematologic: transfuse if hgb<8.5 Neurologic: PRN Ativan, PRN Morphine, keep patient comfortable Affect: PRN ativan Prophylaxis: Protonix Time Spent (Minutes): 40 Notes Reviewed: business technology analyst, cardio, renal, ID Critical Care - Objective Last 24 Hour Vital Signs Date Time Temp Pulse Resp B/P (MAP) Pulse Ox O2 Delivery O2 Flow Rate FiO2 04/24/19 05:03 92 16 45 04/24/19 05:00 86 17 121/67 (85) 100 04/24/19 04:00 99.3 85 18 146/73 (97) 100 04/24/19 04:00 Mechanical Ventilator 04/24/19 04:00 45 04/24/19 03:31 87 04/24/19 03:15 85 16 45 04/24/19 03:00 88 16 137/74 (95) 100 04/24/19 02:00 92 16 145/71 (95) 100 04/24/19 01:24 89 19 45 04/24/19 01:00 84 16 108/59 (75) 100 04/24/19 00:00 99.7 88 16 95/51 (66) 100 04/24/19 00:00 Mechanical Ventilator 04/24/19 00:00 45 04/23/19 23:49 88 04/23/19 23:12 80 16 45 04/23/19 23:00 76 16 117/92 (100) 99 04/23/19 22:00 74 18 128/106 (113) 100 04/23/19 21:00 86 18 111/66 (81) 100 04/23/19 20:50 90 16 45 04/23/19 20:00 97.7 90 19 123/68 (86) 100 04/23/19 20:00 Mechanical Ventilator 04/23/19 20:00 85 04/23/19 20:00 45 04/23/19 19:00 92 16 142/71 (94) 99 04/23/19 18:58 88 16 45 04/23/19 18:04 99.0 04/23/19 18:00 99.0 90 16 130/66 (87) 100 04/23/19 17:25 88 18 45 04/23/19 17:00 87 19 119/64 (82) 100 04/23/19 16:00 45 04/23/19 16:00 79 16 123/61 (81) 100 04/23/19 16:00 Mechanical Ventilator 04/23/19 16:00 80 04/23/19 15:11 86 18 45 04/23/19 15:00 76 16 117/54 (75) 100 04/23/19 14:00 78 16 109/65 (80) 100 04/23/19 13:10 88 18 45 04/23/19 13:00 81 16 105/59 (74) 100 04/23/19 12:00 99.3 81 16 87/50 (62) 99 04/23/19 12:00 81 04/23/19 12:00 Mechanical Ventilator 04/23/19 12:00 45 04/23/19 11:00 89 16 85/45 (58) 99 04/23/19 10:52 87 20 45 04/23/19 10:00 91 17 127/63 (84) 100 04/23/19 09:00 89 20 45 04/23/19 09:00 84 18 127/75 (92) 100 04/23/19 08:00 91 16 111/69 (83) 100 04/23/19 08:00 87 04/23/19 08:00 Mechanical Ventilator 04/23/19 08:00 45 04/23/19 07:00 100.6 86 17 129/63 (85) 100 04/23/19 07:00 86 18 45 04/23/19 06:00 80 18 145/92 (109) 99 Status: sedated Condition: critical HEENT: atraumatic Lungs: rales, rhonchi Heart: HR/BP stable Abdomen: soft, non-tender, feeding tube Extremities: edema Accucheck: 164 Critical Care - Subjective ROS Limited/Unobtainable: Yes Condition: critical EKG Rhythm: Sinus Rhythm FI02: 45 Vent Support Breath Rate: 16 Vent Support Mode: AC Vent Tidal Volume: 500 Sputum Amount: Small PEEP: 5.0 PIP: 34 Tube Feeding Amount: 60 I&O: Intake and Output 04/23/19 04/24/19 19:00 07:00 Intake Total 1005 ml 840 ml Output Total 635 ml 465 ml Balance 370 ml 375 ml Free Water 300 ml IV Total 335 ml Tube Feeding 670 ml 540 ml Output Urine Total 635 ml 465 ml # Bowel Movements 3 2 ET-Tube: 7.5 ET Position: 23 Tony Springer MD Apr 24, 2019 05:54
--- NOTE | 2019-04-24 06:00 | NUR ---
NURSE NOTES: Patient is resting well. No signs of agitation or distress. Patient continues to have soft wrist restraints on the left as precaution of pulling tubing. ROM done. Will continue care.
[2019-04-24 06:28] LABS: BASOPHILS % (AUTO) 0.4 % (0.0-2.0); EOSINOPHILS % (AUTO) 1.1 % (0.0-3.0); HEMOGLOBIN 8.4 G/DL (12.0-16.0); LYMPHOCYTES % (AUTO) 13.8 % (20.0-45.0); MEAN CORPUSCULAR VOLUME 89 FL (80-99); MONOCYTES % (AUTO) 5.3 % (1.0-10.0); NEUTROPHILS % (AUTO) 79.4 % (45.0-75.0); PLATELET COUNT 152 K/UL (150-450); RED BLOOD COUNT 3.04 M/UL (4.20-5.40); RED CELL DISTRIBUTION WIDTH 15.4 % (11.6-14.8); WHITE BLOOD COUNT 15.9 K/UL (4.8-10.8)
[2019-04-24 07:10] LABS: ALANINE AMINOTRANSFERASE 11 U/L (12-78); ALBUMIN 1.2 G/DL (3.4-5.0); ALBUMIN/GLOBULIN RATIO 0.2 (1.0-2.7); ALKALINE PHOSPHATASE 123 U/L (46-116); ANION GAP 9 mmol/L (5-15); ASPARTATE AMINO TRANSFERASE 29 U/L (15-37); BILIRUBIN,TOTAL 0.3 MG/DL (0.2-1.0); BLOOD UREA NITROGEN 39 mg/dL (7-18); CARBON DIOXIDE 20 MMOL/L (21-32); CHLORIDE 105 MMOL/L (98-107); CREATININE 1.8 MG/DL (0.55-1.30); POTASSIUM 4.5 MMOL/L (3.5-5.1); SODIUM 134 MMOL/L (136-145)
--- NOTE | 2019-04-24 07:26 | NUR ---
RESPIRATORY NOTE: Patient received mechanically ventilated on PB 840 with current ordered vent settings. Patient is orally intubated with an ETT tube size 7.5 with 23cm at the lip line that is secured with an anchor fast. Vent alarms are functional and audible. There is an ambu bag available at the bedside and the vent is connected to a red outlet. Will continue to monitor.
--- NOTE | 2019-04-24 07:26 | NUR ---
HAND-OFF: Report given to HORTENCIA Gamez.
--- NOTE | 2019-04-24 07:30 | NUR ---
NURSE NOTES: Received report from Paul Bettencourt RN. Patient asleep in bed, opens eyes spontaneously, able to track eyes. SR 93 on toggle press folder and feeder. ETT 7.5 23 cm at lip line hooked to vent with settings of AC 16, TV 500, FiO2 45%, PEEP 5, saturating at 98%, no s/s of respiratory distress noted. GT feeding of Glucerna 1.2 running @ 60 cc/hr, no residuals noted, HoB elevated. Fraga catheter patent and draining well. Left upper arm PICC asymptomatic. Left soft wrist restraint in place, skin intact, no edema or redness noted, peripheral pulses present. Bed locked in lowest position with side rails up x 3. All needs attended to. Call light within reach. Will continue to monitor.
--- NOTE | 2019-04-24 08:35 | NUR ---
RESPIRATORY NOTE: ABG drawn and results are in system. RN aware.
--- NOTE | 2019-04-24 08:35 | NUR ---
NURSE NOTES: ABG drawn by RT. FiO2 decreased to 30%. Patient tolerating well.
--- NOTE | 2019-04-24 08:48 | Diagnostic Imaging Report ---
EXAM: XR Chest, 1 View CLINICAL HISTORY: DYSPNEA TECHNIQUE: Frontal view of the chest. COMPARISON: chest x-ray 04/23/19 at 714 FINDINGS: Lungs: Again noted bilateral airspace opacities with improved aeration at the right lung base. Pleural space: Small right pleural effusion slightly improved. No pneumothorax. Heart: Mild cardiomegaly. Mediastinum: Unremarkable. Bones/joints: Unremarkable. Tubes, lines and devices: Stable endotracheal tube. IMPRESSION: 1. Again noted bilateral airspace opacities with improved aeration at the right lung base. 2. Small right pleural effusion slightly improved.
[2019-04-24] MEDS: Midodrine 10mg tab NG SCH ×3 (09:00→18:00)
--- NOTE | 2019-04-24 09:13 | Hematology/Onc Progress Note ---
Assessment/Plan Assessment/Plan ASSESSMENT AND RECOMMENDATIONS # Anemia of chronic disease due to underlying chronic medical issues, multifactorial --> Anemia workup has been ordered and reviewed. --> Ferritin 274, iron 6, tibc 143 --> No evidence of hemolysis is noted, peripheral smear has been reviewed. --> Hgb goal >7. Transfuse prn. --> Epogen has been ordered --> Medications have been reviewed --> Stool OB positive, GI is following --> S/P egd/peg/bx on 04/22. --> Hgb trend: 9.4-->9.8-->8.6-->7.6-->7.1-->8.4 --> Cont folic acid --> Blood tx: 04/22 # Lung mass. First noted on CXR. --> Ct chest has been ordered and reviewed. CT reveals no mass. --> hold off on any tumor marker testing --> as per id and pulm evching, appreciate RECS # Leukocytosis/elevated white blood cell count, unspecified likely related to underlying sepsis due to pna confirmed by CT chest and CXR --> have reviewed peripheral smear and bandemia/neutrophilia noted --> continue antibiotics if they have been started by ID team --> monitor for resolution --> trend 25-->20-->15k-->16.3-->14.3-->12.1-->13.6-->13.3-->13.2 # Respiratory distress. BiPAP per Pulmonary. # Sepsis d/t pna and uti. --> Antibiotics per Infectious Disease. # Renal failure. Nephro is following, appreciate recs # Elevated troponin. Recs per cardiology # Malnutrition. --> Dietary to follow. The time this note is entered does not reflect the time the patient was examined. I greatly appreciate the consultation. Subjective ROS Limited/Unobtainable: Yes Hematologic/Lymphatic: Reports: anemia Allergies: Coded Allergies: No Known Allergies (Unverified , 04/12/19) Subjective 04/15: no events reported, no f/c, on abx, seen by id, pulm, hgb remains stable 04/16: Pt resting in bed, nonverbal. No distress noted. WBC remains elevated. Plan to transfer to tele. 04/18: Pt in ICU. CXR yesterday shows pna. H/H stable. On BiPAP. 04/20: Pt no signs of distress. ET in place confirmed by CXR 04/21: Pt remains in icu. CXR today shows Pulmonary edema. Pleural effusion suspected bilaterally. PEG cancelled per Dr. Gentile, rescheduled for tomorrow. CBC reviewed. 04/22: Remains in ICU. S/P egd/peg/bx. Hgb at 7.1, blood tx ordered. 04/23: Remains in ICU. S/P blood tx, Hgb improved to 8.4 Objective Objective Current Medications Medications (Trade) Dose Ordered Sig/Kenisha Route PRN Reason Start Time Stop Time Status Last Admin Dose Admin Acetaminophen (Tylenol) 650 mg Q4H PRN ORAL FEVER 04/17/19 12:36 05/17/19 12:35 04/23/19 17:34 Acetaminophen (Tylenol) 650 mg Q4H PRN RECTAL Fever 04/17/19 12:36 05/17/19 12:35 04/18/19 08:53 Cefepime HCl 1 gm/ Dextrose 55 ml @ 110 mls/hr Q24H IVPB 04/22/19 12:00 04/29/19 11:59 04/23/19 12:30 Chlorhexidine Gluconate (Izzy-Hex 2%) 1 applic DAILY@2000 TOPIC 04/20/19 20:00 05/20/19 19:59 04/23/19 21:09 Dextrose (Dextrose 50%) 25 ml Q30M PRN IV Hypoglycemia 04/17/19 12:45 05/12/19 19:44 Dextrose (Dextrose 50%) 50 ml Q30M PRN IV Hypoglycemia 04/17/19 12:45 05/12/19 19:44 Epoetin Bandar (Epoetin Bandar-EPBX(NON ESRD)) 10,000 unit FRI-WED-FRI SUBQ 04/19/19 21:00 05/16/19 20:59 04/23/19 21:10 Folic Acid (Folate) 5 mg DAILY ORAL 04/22/19 09:00 05/19/19 08:59 04/24/19 09:01 Hydralazine HCl (Apresoline) 10 mg Q2H PRN IV For High Blood Pressure 04/17/19 12:36 05/17/19 12:35 Insulin Aspart (NovoLOG) Q6HR SUBQ 04/20/19 18:00 05/20/19 17:59 04/24/19 05:25 Lansoprazole (Prevacid) 30 mg DAILY GT 04/22/19 09:00 05/22/19 08:59 04/24/19 09:01 Lorazepam (Ativan 2mg/ml 1ml) 2 mg Q4H PRN IV For Anxiety 04/20/19 11:00 04/27/19 10:59 04/23/19 17:54 Lorazepam (Ativan) 0.5 mg Q6H PRN ORAL For Anxiety 04/17/19 12:37 04/24/19 12:36 Midodrine (Pro-Amatine) 10 mg THREE TIMES A DAY NG 04/21/19 13:00 05/21/19 12:59 04/23/19 12:31 Morphine Sulfate (Morphine Sulfate) 4 mg Q4H PRN IVP For Pain 04/20/19 11:00 04/27/19 10:59 Ondansetron HCl (Zofran) 4 mg Q6H PRN IVP Nausea & Vomiting 04/17/19 12:37 05/17/19 12:36 Polyethylene Glycol (Miralax) 17 gm DAILYPRN PRN ORAL Constipation 04/17/19 12:37 05/17/19 12:36 04/23/19 10:31 Last 24 Hour Vital Signs Date Time Temp Pulse Resp B/P (MAP) Pulse Ox O2 Delivery O2 Flow Rate FiO2 04/24/19 08:42 94 16 30 04/24/19 08:40 30 04/24/19 08:00 Mechanical Ventilator 04/24/19 08:00 45 04/24/19 07:22 93 16 45 04/24/19 07:00 90 19 142/71 (94) 90 04/24/19 06:00 88 16 109/62 (78) 99 04/24/19 05:03 92 16 45 04/24/19 05:00 86 17 121/67 (85) 100 04/24/19 04:00 99.3 85 18 146/73 (97) 100 04/24/19 04:00 Mechanical Ventilator 04/24/19 04:00 45 04/24/19 03:31 87 04/24/19 03:15 85 16 45 04/24/19 03:00 88 16 137/74 (95) 100 04/24/19 02:00 92 16 145/71 (95) 100 04/24/19 01:24 89 19 45 04/24/19 01:00 84 16 108/59 (75) 100 04/24/19 00:00 99.7 88 16 95/51 (66) 100 04/24/19 00:00 Mechanical Ventilator 04/24/19 00:00 45 04/23/19 23:49 88 04/23/19 23:12 80 16 45 04/23/19 23:00 76 16 117/92 (100) 99 04/23/19 22:00 74 18 128/106 (113) 100 04/23/19 21:00 86 18 111/66 (81) 100 04/23/19 20:50 90 16 45 04/23/19 20:00 97.7 90 19 123/68 (86) 100 04/23/19 20:00 Mechanical Ventilator 04/23/19 20:00 85 04/23/19 20:00 45 04/23/19 19:00 92 16 142/71 (94) 99 04/23/19 18:58 88 16 45 04/23/19 18:04 99.0 04/23/19 18:00 99.0 90 16 130/66 (87) 100 04/23/19 17:25 88 18 45 04/23/19 17:00 87 19 119/64 (82) 100 04/23/19 16:00 45 04/23/19 16:00 79 16 123/61 (81) 100 04/23/19 16:00 Mechanical Ventilator 04/23/19 16:00 80 04/23/19 15:11 86 18 45 04/23/19 15:00 76 16 117/54 (75) 100 04/23/19 14:00 78 16 109/65 (80) 100 04/23/19 13:10 88 18 45 04/23/19 13:00 81 16 105/59 (74) 100 04/23/19 12:00 99.3 81 16 87/50 (62) 99 04/23/19 12:00 81 04/23/19 12:00 Mechanical Ventilator 04/23/19 12:00 45 04/23/19 11:00 89 16 85/45 (58) 99 04/23/19 10:52 87 20 45 04/23/19 10:00 91 17 127/63 (84) 100 04/23/19 09:00 89 20 45 04/23/19 09:00 84 18 127/75 (92) 100 04/23/19 08:00 91 16 111/69 (83) 100 04/23/19 08:00 87 04/23/19 08:00 Mechanical Ventilator 04/23/19 08:00 45 04/23/19 07:00 100.6 86 17 129/63 (85) 100 04/23/19 07:00 86 18 45 04/23/19 06:00 80 18 145/92 (109) 99 04/23/19 05:03 85 17 45 04/23/19 05:00 79 18 147/81 (103) 99 04/23/19 04:00 45 04/23/19 04:00 89 04/23/19 04:00 99.3 80 18 111/63 (79) 100 04/23/19 04:00 Mechanical Ventilator 04/23/19 03:00 85 18 129/63 (85) 99 04/23/19 02:38 90 22 45 04/23/19 02:00 91 18 138/69 (92) 99 04/23/19 01:00 90 21 142/76 (98) 99 04/23/19 00:56 84 22 45 04/23/19 00:00 Mechanical Ventilator 04/23/19 00:00 45 04/23/19 00:00 99.2 84 20 128/61 (83) 100 04/22/19 23:05 86 04/22/19 23:00 80 19 125/67 (86) 99 04/22/19 22:48 91 19 45 04/22/19 22:00 86 20 131/68 (89) 100 04/22/19 21:00 90 18 139/72 (94) 99 04/22/19 20:57 84 18 45 04/22/19 20:00 Mechanical Ventilator 04/22/19 20:00 45 04/22/19 20:00 99.8 80 19 133/72 (92) 100 04/22/19 19:17 84 04/22/19 19:14 81 19 45 04/22/19 19:00 84 21 141/70 (93) 99 04/22/19 18:00 80 21 132/68 (89) 99 04/22/19 17:00 81 21 140/69 (92) 99 04/22/19 16:50 77 21 45 04/22/19 16:00 98.4 78 19 135/86 (102) 99 04/22/19 16:00 78 04/22/19 16:00 Mechanical Ventilator 04/22/19 16:00 45 04/22/19 15:01 80 21 45 04/22/19 15:00 78 20 123/73 (90) 99 04/22/19 14:00 80 20 130/60 (83) 99 04/22/19 13:08 87 20 45 04/22/19 13:00 83 18 129/65 (86) 100 04/22/19 12:00 Mechanical Ventilator 04/22/19 12:00 86 04/22/19 12:00 86 17 122/60 (80) 100 04/22/19 12:00 45 04/22/19 11:09 78 18 45 04/22/19 11:00 86 16 127/64 (85) 100 04/22/19 10:00 83 17 124/71 (88) 95 04/22/19 09:30 89 18 133/69 (90) 100 Intake and Output 04/23/19 04/24/19 19:00 07:00 Intake Total 1005 ml 1020 ml Output Total 635 ml 620 ml Balance 370 ml 400 ml Free Water 300 ml IV Total 335 ml Tube Feeding 670 ml 720 ml Output Urine Total 635 ml 620 ml # Bowel Movements 3 2 Labs Test 04/22/19 05:00 04/22/19 06:42 04/22/19 19:30 04/23/19 04:30 White Blood Count 13.3 K/UL (4.8-10.8) 13.1 K/UL (4.8-10.8) Red Blood Count 2.59 M/UL (4.20-5.40) 3.25 M/UL (4.20-5.40) Hemoglobin 7.1 G/DL (12.0-16.0) 9.0 G/DL (12.0-16.0) Hematocrit 22.0 % (37.0-47.0) 28.6 % (37.0-47.0) Mean Corpuscular Volume 85 FL (80-99) 88 FL (80-99) Mean Corpuscular Hemoglobin 27.5 PG (27.0-31.0) 27.5 PG (27.0-31.0) Mean Corpuscular Hemoglobin Concent 32.3 G/DL (32.0-36.0) 31.4 G/DL (32.0-36.0) Red Cell Distribution Width 14.4 % (11.6-14.8) 13.7 % (11.6-14.8) Platelet Count 165 K/UL (150-450) 159 K/UL (150-450) Mean Platelet Volume 8.0 FL (6.5-10.1) 7.8 FL (6.5-10.1) Neutrophils (%) (Auto) % (45.0-75.0) 81.0 % (45.0-75.0) Lymphocytes (%) (Auto) % (20.0-45.0) 12.6 % (20.0-45.0) Monocytes (%) (Auto) % (1.0-10.0) 5.4 % (1.0-10.0) Eosinophils (%) (Auto) % (0.0-3.0) 0.7 % (0.0-3.0) Basophils (%) (Auto) % (0.0-2.0) 0.4 % (0.0-2.0) Differential Total Cells Counted 100 Neutrophils % (Manual) 89 % (45-75) Lymphocytes % (Manual) 7 % (20-45) Monocytes % (Manual) 2 % (1-10) Eosinophils % (Manual) 0 % (0-3) Basophils % (Manual) 0 % (0-2) Band Neutrophils 2 % (0-8) Platelet Estimate Adequate Platelet Morphology Normal Hypochromasia 1+ Anisocytosis 1+ Prothrombin Time 12.0 SEC (9.30-11.50) Prothromb Time International Ratio 1.1 (0.9-1.1) Sodium Level 138 MMOL/L (136-145) 135 MMOL/L (136-145) Potassium Level 3.6 MMOL/L (3.5-5.1) 3.9 MMOL/L (3.5-5.1) Chloride Level 106 MMOL/L (98-107) 105 MMOL/L (98-107) Carbon Dioxide Level 20 MMOL/L (21-32) 21 MMOL/L (21-32) Anion Gap 12 mmol/L (5-15) 9 mmol/L (5-15) Blood Urea Nitrogen 43 mg/dL (7-18) 38 mg/dL (7-18) Creatinine 1.8 MG/DL (0.55-1.30) 1.7 MG/DL (0.55-1.30) Estimat Glomerular Filtration Rate mL/min (>60) mL/min (>60) Glucose Level 184 MG/DL (74-106) 147 MG/DL (74-106) Calcium Level 8.5 MG/DL (8.5-10.1) 7.8 MG/DL (8.5-10.1) Phosphorus Level 2.2 MG/DL (2.5-4.9) 3.2 MG/DL (2.5-4.9) Magnesium Level 2.2 MG/DL (1.8-2.4) 2.1 MG/DL (1.8-2.4) Total Bilirubin 0.3 MG/DL (0.2-1.0) 0.3 MG/DL (0.2-1.0) Aspartate Amino Transf (AST/SGOT) 38 U/L (15-37) 30 U/L (15-37) Alanine Aminotransferase (ALT/SGPT) 16 U/L (12-78) 14 U/L (12-78) Alkaline Phosphatase 79 U/L (46-116) 80 U/L (46-116) Total Protein 6.1 G/DL (6.4-8.2) 5.6 G/DL (6.4-8.2) Albumin 1.5 G/DL (3.4-5.0) 1.2 G/DL (3.4-5.0) Globulin 4.6 g/dL 4.4 g/dL Albumin/Globulin Ratio 0.3 (1.0-2.7) 0.3 (1.0-2.7) Arterial Blood pH 7.425 (7.350-7.450) Arterial Blood Partial Pressure CO2 28.9 mmHg (35.0-45.0) Arterial Blood Partial Pressure O2 107.3 mmHg (75.0-100.0) Arterial Blood HCO3 18.5 mmol/L (22.0-26.0) Arterial Blood Oxygen Saturation 97.6 % (95-100) Arterial Blood Base Excess -5.2 (-2-2) Marlo Test Positive C-Reactive Protein, Quantitative 19.5 mg/dL (0.00-0.90) Pro-B-Type Natriuretic Peptide 24613 pg/mL (0-125) Test 04/23/19 06:59 04/23/19 08:15 04/24/19 05:10 04/24/19 08:18 Arterial Blood pH 7.354 (7.350-7.450) 7.386 (7.350-7.450) Arterial Blood Partial Pressure CO2 32.5 mmHg (35.0-45.0) 30.9 mmHg (35.0-45.0) Arterial Blood Partial Pressure O2 108.3 mmHg (75.0-100.0) 101.6 mmHg (75.0-100.0) Arterial Blood HCO3 17.7 mmol/L (22.0-26.0) 18.1 mmol/L (22.0-26.0) Arterial Blood Oxygen Saturation 96.7 % (95-100) 97.3 % (95-100) Arterial Blood Base Excess -7.0 (-2-2) -6.1 (-2-2) Marlo Test Positive Positive White Blood Count 13.2 K/UL (4.8-10.8) 15.9 K/UL (4.8-10.8) Red Blood Count 3.04 M/UL (4.20-5.40) 3.04 M/UL (4.20-5.40) Hemoglobin 8.4 G/DL (12.0-16.0) 8.4 G/DL (12.0-16.0) Hematocrit 25.8 % (37.0-47.0) 27.0 % (37.0-47.0) Mean Corpuscular Volume 85 FL (80-99) 89 FL (80-99) Mean Corpuscular Hemoglobin 27.5 PG (27.0-31.0) 27.7 PG (27.0-31.0) Mean Corpuscular Hemoglobin Concent 32.3 G/DL (32.0-36.0) 31.2 G/DL (32.0-36.0) Red Cell Distribution Width 14.3 % (11.6-14.8) 15.4 % (11.6-14.8) Platelet Count 141 K/UL (150-450) 152 K/UL (150-450) Mean Platelet Volume 8.1 FL (6.5-10.1) 6.8 FL (6.5-10.1) Neutrophils (%) (Auto) 84.8 % (45.0-75.0) 79.4 % (45.0-75.0) Lymphocytes (%) (Auto) 9.2 % (20.0-45.0) 13.8 % (20.0-45.0) Monocytes (%) (Auto) 4.7 % (1.0-10.0) 5.3 % (1.0-10.0) Eosinophils (%) (Auto) 1.0 % (0.0-3.0) 1.1 % (0.0-3.0) Basophils (%) (Auto) 0.3 % (0.0-2.0) 0.4 % (0.0-2.0) Sodium Level 134 MMOL/L (136-145) Potassium Level 4.5 MMOL/L (3.5-5.1) Chloride Level 105 MMOL/L (98-107) Carbon Dioxide Level 20 MMOL/L (21-32) Anion Gap 9 mmol/L (5-15) Blood Urea Nitrogen 39 mg/dL (7-18) Creatinine 1.8 MG/DL (0.55-1.30) Estimat Glomerular Filtration Rate mL/min (>60) Glucose Level 161 MG/DL (74-106) Calcium Level 8.0 MG/DL (8.5-10.1) Phosphorus Level 3.0 MG/DL (2.5-4.9) Magnesium Level 2.1 MG/DL (1.8-2.4) Total Bilirubin 0.3 MG/DL (0.2-1.0) Aspartate Amino Transf (AST/SGOT) 29 U/L (15-37) Alanine Aminotransferase (ALT/SGPT) 11 U/L (12-78) Alkaline Phosphatase 123 U/L (46-116) Total Protein 6.0 G/DL (6.4-8.2) Albumin 1.2 G/DL (3.4-5.0) Globulin 4.8 g/dL Albumin/Globulin Ratio 0.2 (1.0-2.7) Height (Feet): 5 Height (Inches): 7.00 Weight (Pounds): 180 Objective PHYSICAL EXAMINATION: GENERAL: BiPAP in place, sleeping in bed, slight short of breath. VITAL SIGNS: Have been reviewed CARDIOVASCULAR: No murmur. LUNGS: Poor exchange. TRACH++ ABDOMEN: Bowel sounds distant. EXTREMITIES: No cyanosis, clubbing, or edema. NEUROLOGIC: Patient is flaccid in bed, probably sedated. Steven Norton MD Apr 24, 2019 09:13
--- NOTE | 2019-04-24 09:30 | NUR ---
NURSE NOTES: Patient seen and evaluated by Dr. Spivey at bedside. No new orders received at this time.
--- NOTE | 2019-04-24 09:50 | Nephrology Progress Note ---
Assessment/Plan Problem List: (1) Renal failure (ARF), acute on chronic (2) Diabetic nephropathy (3) Sepsis (4) Pneumonia (5) Right hemiplegia (6) Anemia in chronic kidney disease (CKD) (7) Pulmonary hypertension Assessment intubated Renal failure; - Pre Renal - ? Underlying Renal Anemia Pneumonia / respiratory failure Sepsis elevated Troponin UTI HyperGlycemia / DM Right Esvin HTN Plan K Phos IV as needed venofer Folate 24 H urine protein check 2.4 gram Fraga Hydrate BP and BS control urine studies slow hydrate kidney MAIKEL results noted: No [place] 2D echo Noted visualized except distal setum and inferiro wall hypokinesis Left ventricular ejection fraction estimated to be 55-60 %. avoid Nephrotoxics per orders Subjective ROS Limited/Unobtainable: Yes Objective Objective Last 24 Hour Vital Signs Date Time Temp Pulse Resp B/P (MAP) Pulse Ox O2 Delivery O2 Flow Rate FiO2 04/24/19 08:42 94 16 30 04/24/19 08:40 30 04/24/19 08:00 Mechanical Ventilator 04/24/19 08:00 45 04/24/19 07:22 93 16 45 04/24/19 07:00 90 19 142/71 (94) 90 04/24/19 06:00 88 16 109/62 (78) 99 04/24/19 05:03 92 16 45 04/24/19 05:00 86 17 121/67 (85) 100 04/24/19 04:00 99.3 85 18 146/73 (97) 100 04/24/19 04:00 Mechanical Ventilator 04/24/19 04:00 45 04/24/19 03:31 87 04/24/19 03:15 85 16 45 04/24/19 03:00 88 16 137/74 (95) 100 04/24/19 02:00 92 16 145/71 (95) 100 04/24/19 01:24 89 19 45 04/24/19 01:00 84 16 108/59 (75) 100 04/24/19 00:00 99.7 88 16 95/51 (66) 100 04/24/19 00:00 Mechanical Ventilator 04/24/19 00:00 45 04/23/19 23:49 88 04/23/19 23:12 80 16 45 04/23/19 23:00 76 16 117/92 (100) 99 04/23/19 22:00 74 18 128/106 (113) 100 04/23/19 21:00 86 18 111/66 (81) 100 04/23/19 20:50 90 16 45 04/23/19 20:00 97.7 90 19 123/68 (86) 100 04/23/19 20:00 Mechanical Ventilator 04/23/19 20:00 85 04/23/19 20:00 45 04/23/19 19:00 92 16 142/71 (94) 99 04/23/19 18:58 88 16 45 04/23/19 18:04 99.0 04/23/19 18:00 99.0 90 16 130/66 (87) 100 04/23/19 17:25 88 18 45 04/23/19 17:00 87 19 119/64 (82) 100 04/23/19 16:00 45 04/23/19 16:00 79 16 123/61 (81) 100 04/23/19 16:00 Mechanical Ventilator 04/23/19 16:00 80 04/23/19 15:11 86 18 45 04/23/19 15:00 76 16 117/54 (75) 100 04/23/19 14:00 78 16 109/65 (80) 100 04/23/19 13:10 88 18 45 04/23/19 13:00 81 16 105/59 (74) 100 04/23/19 12:00 99.3 81 16 87/50 (62) 99 04/23/19 12:00 81 04/23/19 12:00 Mechanical Ventilator 04/23/19 12:00 45 04/23/19 11:00 89 16 85/45 (58) 99 04/23/19 10:52 87 20 45 04/23/19 10:00 91 17 127/63 (84) 100 Intake and Output 04/23/19 04/24/19 19:00 07:00 Intake Total 1005 ml 1020 ml Output Total 635 ml 620 ml Balance 370 ml 400 ml Free Water 300 ml IV Total 335 ml Tube Feeding 670 ml 720 ml Output Urine Total 635 ml 620 ml # Bowel Movements 3 2 Laboratory Tests 04/24/19 05:10: White Blood Count 15.9H, Red Blood Count 3.04L, Hemoglobin 8.4L, Hematocrit 27.0L, Mean Corpuscular Volume 89, Mean Corpuscular Hemoglobin 27.7, Mean Corpuscular Hemoglobin Concent 31.2L, Red Cell Distribution Width 15.4H, Platelet Count 152, Mean Platelet Volume 6.8, Neutrophils (%) (Auto) 79.4H, Lymphocytes (%) (Auto) 13.8L, Monocytes (%) (Auto) 5.3, Eosinophils (%) (Auto) 1.1, Basophils (%) (Auto) 0.4, Sodium Level 134L, Potassium Level 4.5, Chloride Level 105, Carbon Dioxide Level 20L, Anion Gap 9, Blood Urea Nitrogen 39H, Creatinine 1.8H, Estimat Glomerular Filtration Rate , Glucose Level 161H, Calcium Level 8.0L, Phosphorus Level 3.0, Magnesium Level 2.1, Total Bilirubin 0.3, Aspartate Amino Transf (AST/SGOT) 29, Alanine Aminotransferase (ALT/SGPT) 11L, Alkaline Phosphatase 123H, Total Protein 6.0L, Albumin 1.2L, Globulin 4.8, Albumin/Globulin Ratio 0.2L 04/24/19 08:18: Arterial Blood pH 7.386, Arterial Blood Partial Pressure CO2 30.9L, Arterial Blood Partial Pressure O2 101.6H, Arterial Blood HCO3 18.1L, Arterial Blood Oxygen Saturation 97.3, Arterial Blood Base Excess -6.1L, Marlo Test Positive Height (Feet): 5 Height (Inches): 7.00 Weight (Pounds): 180 General Appearance: no apparent distress EENT: other - vented Cardiovascular: tachycardia Respiratory/Chest: decreased breath sounds Abdomen: distended Wally Spivey MD Apr 24, 2019 09:50
--- NOTE | 2019-04-24 09:51 | Cardiology Progress Note ---
Assessment/Plan Status: stable Assessment/Plan Assessment/Plan Assessment/Plan 1. Atrial flutter, self terminated. Off Lopressor for low BP 2. Hypotension. On Midodrine 10 tid 3. Coronary artery disease. On Plavix 75 mg daily 4. Respiratory failure, intubated EF 60% 5. Sepsis. White count 25,000. On IV abx improved to 13K 6. Anemia.S/P PRBC 7. Renal failure BUN/Cr improved to 38/1.[address] Spivey 8. Dysphagia. S/P PEG 04/22/19 9. History of CVA with hemiplegia. 10. Nonverbal status. 11. Full code Subjective Cardiovascular: Reports: no symptoms Respiratory: Reports: no symptoms Gastrointestinal/Abdominal: Reports: no symptoms Genitourinary: Reports: no symptoms Subjective Coverage for Becky remains in ICU, no acute events Objective Last 24 Hour Vital Signs Date Time Temp Pulse Resp B/P (MAP) Pulse Ox O2 Delivery O2 Flow Rate FiO2 04/24/19 08:42 94 16 30 04/24/19 08:40 30 04/24/19 08:00 Mechanical Ventilator 04/24/19 08:00 45 04/24/19 07:22 93 16 45 04/24/19 07:00 90 19 142/71 (94) 90 04/24/19 06:00 88 16 109/62 (78) 99 04/24/19 05:03 92 16 45 04/24/19 05:00 86 17 121/67 (85) 100 04/24/19 04:00 99.3 85 18 146/73 (97) 100 04/24/19 04:00 Mechanical Ventilator 04/24/19 04:00 45 04/24/19 03:31 87 04/24/19 03:15 85 16 45 04/24/19 03:00 88 16 137/74 (95) 100 04/24/19 02:00 92 16 145/71 (95) 100 04/24/19 01:24 89 19 45 04/24/19 01:00 84 16 108/59 (75) 100 04/24/19 00:00 99.7 88 16 95/51 (66) 100 04/24/19 00:00 Mechanical Ventilator 04/24/19 00:00 45 04/23/19 23:49 88 04/23/19 23:12 80 16 45 04/23/19 23:00 76 16 117/92 (100) 99 04/23/19 22:00 74 18 128/106 (113) 100 04/23/19 21:00 86 18 111/66 (81) 100 04/23/19 20:50 90 16 45 04/23/19 20:00 97.7 90 19 123/68 (86) 100 04/23/19 20:00 Mechanical Ventilator 04/23/19 20:00 85 04/23/19 20:00 45 04/23/19 19:00 92 16 142/71 (94) 99 04/23/19 18:58 88 16 45 04/23/19 18:04 99.0 04/23/19 18:00 99.0 90 16 130/66 (87) 100 04/23/19 17:25 88 18 45 04/23/19 17:00 87 19 119/64 (82) 100 04/23/19 16:00 45 04/23/19 16:00 79 16 123/61 (81) 100 04/23/19 16:00 Mechanical Ventilator 04/23/19 16:00 80 04/23/19 15:11 86 18 45 04/23/19 15:00 76 16 117/54 (75) 100 04/23/19 14:00 78 16 109/65 (80) 100 04/23/19 13:10 88 18 45 04/23/19 13:00 81 16 105/59 (74) 100 04/23/19 12:00 99.3 81 16 87/50 (62) 99 04/23/19 12:00 81 04/23/19 12:00 Mechanical Ventilator 04/23/19 12:00 45 04/23/19 11:00 89 16 85/45 (58) 99 04/23/19 10:52 87 20 45 04/23/19 10:00 91 17 127/63 (84) 100 General Appearance: no apparent distress, patient on isolation EENT: PERRL/EOMI, normal ENT inspection, TMs normal, pharynx normal Neck: non-tender, normal alignment, supple, normal inspection, no JVD Rhythm: NSR Cardiovascular: normal peripheral pulses, normal rate, regular rhythm Respiratory/Chest: chest wall non-tender, lungs clear, normal breath sounds Abdomen: normal bowel sounds, non tender, soft, no organomegaly Extremities: normal range of motion, non-tender, normal inspection Neurologic: manager market intelligence II-XII grossly normal, no motor/sensory deficits Intake and Output 04/23/19 04/24/19 19:00 07:00 Intake Total 1005 ml 1020 ml Output Total 635 ml 620 ml Balance 370 ml 400 ml Free Water 300 ml IV Total 335 ml Tube Feeding 670 ml 720 ml Output Urine Total 635 ml 620 ml # Bowel Movements 3 2 Laboratory Tests Test 04/24/19 05:10 04/24/19 08:18 White Blood Count 15.9 K/UL (4.8-10.8) H Red Blood Count 3.04 M/UL (4.20-5.40) L Hemoglobin 8.4 G/DL (12.0-16.0) L Hematocrit 27.0 % (37.0-47.0) L Mean Corpuscular Volume 89 FL (80-99) Mean Corpuscular Hemoglobin 27.7 PG (27.0-31.0) Mean Corpuscular Hemoglobin Concent 31.2 G/DL (32.0-36.0) L Red Cell Distribution Width 15.4 % (11.6-14.8) H Platelet Count 152 K/UL (150-450) Mean Platelet Volume 6.8 FL (6.5-10.1) Neutrophils (%) (Auto) 79.4 % (45.0-75.0) H Lymphocytes (%) (Auto) 13.8 % (20.0-45.0) L Monocytes (%) (Auto) 5.3 % (1.0-10.0) Eosinophils (%) (Auto) 1.1 % (0.0-3.0) Basophils (%) (Auto) 0.4 % (0.0-2.0) Sodium Level 134 MMOL/L (136-145) L Potassium Level 4.5 MMOL/L (3.5-5.1) Chloride Level 105 MMOL/L (98-107) Carbon Dioxide Level 20 MMOL/L (21-32) L Anion Gap 9 mmol/L (5-15) Blood Urea Nitrogen 39 mg/dL (7-18) H Creatinine 1.8 MG/DL (0.55-1.30) H Estimat Glomerular Filtration Rate mL/min (>60) Glucose Level 161 MG/DL (74-106) H Calcium Level 8.0 MG/DL (8.5-10.1) L Phosphorus Level 3.0 MG/DL (2.5-4.9) Magnesium Level 2.1 MG/DL (1.8-2.4) Total Bilirubin 0.3 MG/DL (0.2-1.0) Aspartate Amino Transf (AST/SGOT) 29 U/L (15-37) Alanine Aminotransferase (ALT/SGPT) 11 U/L (12-78) L Alkaline Phosphatase 123 U/L (46-116) H Total Protein 6.0 G/DL (6.4-8.2) L Albumin 1.2 G/DL (3.4-5.0) L Globulin 4.8 g/dL Albumin/Globulin Ratio 0.2 (1.0-2.7) L Arterial Blood pH 7.386 (7.350-7.450) Arterial Blood Partial Pressure CO2 30.9 mmHg (35.0-45.0) L Arterial Blood Partial Pressure O2 101.6 mmHg (75.0-100.0) H Arterial Blood HCO3 18.1 mmol/L (22.0-26.0) L Arterial Blood Oxygen Saturation 97.3 % (95-100) Arterial Blood Base Excess -6.1 (-2-2) L Marlo Test Positive Gildardo Galeana MD Apr 24, 2019 09:51
--- NOTE | 2019-04-24 10:13 | General Progress Note ---
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 ICD Codes: E11.22 - Type 2 diabetes mellitus with diabetic chronic kidney disease; N18.4 - Chronic kidney disease, stage 4 (severe) SNOMED: 65828873, 830944427, 029213497 (7) Respiratory failure ICD Codes: J96.90 - Respiratory failure, unspecified, unspecified whether with hypoxia or hypercapnia SNOMED: 924421807 Qualifiers: Qualified Codes: J96.02 - Acute respiratory failure with hypercapnia Status: unchanged Assessment/Plan: pt diet abx o2 pulm tx neuro psyc eval cbc bmp am ltach eval Subjective Constitutional: Reports: weakness Allergies: Coded Allergies: No Known Allergies (Unverified , 04/12/19) All Systems: reviewed and negative except above Subjective intubated in icu Objective Last 24 Hour Vital Signs Date Time Temp Pulse Resp B/P (MAP) Pulse Ox O2 Delivery O2 Flow Rate FiO2 04/24/19 10:00 99 19 117/73 (88) 95 04/24/19 09:00 86 16 127/80 (96) 97 04/24/19 08:42 94 16 30 04/24/19 08:40 30 04/24/19 08:00 Mechanical Ventilator 04/24/19 08:00 99.8 96 16 112/60 (77) 98 04/24/19 08:00 45 04/24/19 07:22 93 16 45 04/24/19 07:00 90 19 142/71 (94) 90 04/24/19 06:00 88 16 109/62 (78) 99 04/24/19 05:03 92 16 45 04/24/19 05:00 86 17 121/67 (85) 100 04/24/19 04:00 99.3 85 18 146/73 (97) 100 04/24/19 04:00 Mechanical Ventilator 04/24/19 04:00 45 04/24/19 03:31 87 04/24/19 03:15 85 16 45 04/24/19 03:00 88 16 137/74 (95) 100 04/24/19 02:00 92 16 145/71 (95) 100 04/24/19 01:24 89 19 45 04/24/19 01:00 84 16 108/59 (75) 100 04/24/19 00:00 99.7 88 16 95/51 (66) 100 04/24/19 00:00 Mechanical Ventilator 04/24/19 00:00 45 04/23/19 23:49 88 04/23/19 23:12 80 16 45 04/23/19 23:00 76 16 117/92 (100) 99 04/23/19 22:00 74 18 128/106 (113) 100 04/23/19 21:00 86 18 111/66 (81) 100 04/23/19 20:50 90 16 45 04/23/19 20:00 97.7 90 19 123/68 (86) 100 04/23/19 20:00 Mechanical Ventilator 04/23/19 20:00 85 04/23/19 20:00 45 04/23/19 19:00 92 16 142/71 (94) 99 04/23/19 18:58 88 16 45 04/23/19 18:04 99.0 04/23/19 18:00 99.0 90 16 130/66 (87) 100 04/23/19 17:25 88 18 45 04/23/19 17:00 87 19 119/64 (82) 100 04/23/19 16:00 45 04/23/19 16:00 79 16 123/61 (81) 100 04/23/19 16:00 Mechanical Ventilator 04/23/19 16:00 80 04/23/19 15:11 86 18 45 04/23/19 15:00 76 16 117/54 (75) 100 04/23/19 14:00 78 16 109/65 (80) 100 04/23/19 13:10 88 18 45 04/23/19 13:00 81 16 105/59 (74) 100 04/23/19 12:00 99.3 81 16 87/50 (62) 99 04/23/19 12:00 81 04/23/19 12:00 Mechanical Ventilator 04/23/19 12:00 45 04/23/19 11:00 89 16 85/45 (58) 99 04/23/19 10:52 87 20 45 Intake and Output 04/23/19 04/24/19 19:00 07:00 Intake Total 1005 ml 1020 ml Output Total 635 ml 620 ml Balance 370 ml 400 ml Free Water 300 ml IV Total 335 ml Tube Feeding 670 ml 720 ml Output Urine Total 635 ml 620 ml # Bowel Movements 3 2 Laboratory Tests 04/24/19 05:10: White Blood Count 15.9H, Red Blood Count 3.04L, Hemoglobin 8.4L, Hematocrit 27.0L, Mean Corpuscular Volume 89, Mean Corpuscular Hemoglobin 27.7, Mean Corpuscular Hemoglobin Concent 31.2L, Red Cell Distribution Width 15.4H, Platelet Count 152, Mean Platelet Volume 6.8, Neutrophils (%) (Auto) 79.4H, Lymphocytes (%) (Auto) 13.8L, Monocytes (%) (Auto) 5.3, Eosinophils (%) (Auto) 1.1, Basophils (%) (Auto) 0.4, Sodium Level 134L, Potassium Level 4.5, Chloride Level 105, Carbon Dioxide Level 20L, Anion Gap 9, Blood Urea Nitrogen 39H, Creatinine 1.8H, Estimat Glomerular Filtration Rate , Glucose Level 161H, Calcium Level 8.0L, Phosphorus Level 3.0, Magnesium Level 2.1, Total Bilirubin 0.3, Aspartate Amino Transf (AST/SGOT) 29, Alanine Aminotransferase (ALT/SGPT) 11L, Alkaline Phosphatase 123H, Total Protein 6.0L, Albumin 1.2L, Globulin 4.8, Albumin/Globulin Ratio 0.2L 04/24/19 08:18: Arterial Blood pH 7.386, Arterial Blood Partial Pressure CO2 30.9L, Arterial Blood Partial Pressure O2 101.6H, Arterial Blood HCO3 18.1L, Arterial Blood Oxygen Saturation 97.3, Arterial Blood Base Excess -6.1L, Marlo Test Positive Height (Feet): 5 Height (Inches): 7.00 Weight (Pounds): 180 General Appearance: lethargic EENT: normal ENT inspection Neck: normal alignment Cardiovascular: normal peripheral pulses, normal rate, regular rhythm Respiratory/Chest: decreased breath sounds Abdomen: normal bowel sounds, non tender, soft Extremities: normal inspection Edema: no edema noted Arm (L), no edema noted Arm (R), no edema noted Leg (L), no edema noted Leg (R), no edema noted Pedal (L), no edema noted Pedal (R), no edema noted Generalized Neurologic: motor weakness Skin: normal pigmentation, warm/dry Jama Keating DO Apr 24, 2019 10:13
--- NOTE | 2019-04-24 10:52 | Infectious Diseases Prog Note ---
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 PNA Pulmonary edema -04/19 CXR: There is less pulmonary edema compared to yesterday but with moderate residual edema. -04/16 CXR: . Right perihilar and bilateral lower lobe pulmonary consolidation concerning for pneumonia.Small bilateral pleural effusions. CXR - B/L Infiltrates Low grade fevers; SP WBCs up to 25; improving 04/16 Sp Cx - C. alb; 04/19 spC. albicans (colonizer) -BCx NTD -legionella ag urine neg Widened mediastinum - right sided aortic arch CXR - Apparent upper mediastinal widening. Possibly due to ectatic vasculature and body habitus, but upper mediastinal mass also possible. Correlate with any prior adiographs and may be available, consider CT for further evaluation if clinically indicated CT 04/13/19 - Right-sided aortic arch, presumably accounting for the apparent upper mediastinal widening demonstrated on recent plain radiograph. No evidence of upper mediastinal mass. Extensive bilateral lower lobe consolidation , likely pneumonia, less extensive left upper lobe consolidation. 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 We will continue to follow the patient during this hospitalization. Subjective Allergies: Coded Allergies: No Known Allergies (Unverified , 04/12/19) Subjective afebrile >24hrs wbc increased Objective Vital Signs Last 24 Hour Vital Signs Date Time Temp Pulse Resp B/P (MAP) Pulse Ox O2 Delivery O2 Flow Rate FiO2 04/24/19 10:00 99 19 117/73 (88) 95 04/24/19 09:00 86 16 127/80 (96) 97 04/24/19 08:42 94 16 30 04/24/19 08:40 30 04/24/19 08:00 Mechanical Ventilator 04/24/19 08:00 99.8 96 16 112/60 (77) 98 04/24/19 08:00 45 04/24/19 07:22 93 16 45 04/24/19 07:00 90 19 142/71 (94) 90 04/24/19 06:00 88 16 109/62 (78) 99 04/24/19 05:03 92 16 45 04/24/19 05:00 86 17 121/67 (85) 100 04/24/19 04:00 99.3 85 18 146/73 (97) 100 04/24/19 04:00 Mechanical Ventilator 04/24/19 04:00 45 04/24/19 03:31 87 04/24/19 03:15 85 16 45 04/24/19 03:00 88 16 137/74 (95) 100 04/24/19 02:00 92 16 145/71 (95) 100 04/24/19 01:24 89 19 45 04/24/19 01:00 84 16 108/59 (75) 100 04/24/19 00:00 99.7 88 16 95/51 (66) 100 04/24/19 00:00 Mechanical Ventilator 04/24/19 00:00 45 04/23/19 23:49 88 04/23/19 23:12 80 16 45 04/23/19 23:00 76 16 117/92 (100) 99 04/23/19 22:00 74 18 128/106 (113) 100 04/23/19 21:00 86 18 111/66 (81) 100 04/23/19 20:50 90 16 45 04/23/19 20:00 97.7 90 19 123/68 (86) 100 04/23/19 20:00 Mechanical Ventilator 04/23/19 20:00 85 04/23/19 20:00 45 04/23/19 19:00 92 16 142/71 (94) 99 04/23/19 18:58 88 16 45 04/23/19 18:04 99.0 04/23/19 18:00 99.0 90 16 130/66 (87) 100 04/23/19 17:25 88 18 45 04/23/19 17:00 87 19 119/64 (82) 100 04/23/19 16:00 45 04/23/19 16:00 79 16 123/61 (81) 100 04/23/19 16:00 Mechanical Ventilator 04/23/19 16:00 80 04/23/19 15:11 86 18 45 04/23/19 15:00 76 16 117/54 (75) 100 04/23/19 14:00 78 16 109/65 (80) 100 04/23/19 13:10 88 18 45 04/23/19 13:00 81 16 105/59 (74) 100 04/23/19 12:00 99.3 81 16 87/50 (62) 99 04/23/19 12:00 81 04/23/19 12:00 Mechanical Ventilator 04/23/19 12:00 45 04/23/19 11:00 89 16 85/45 (58) 99 04/23/19 10:52 87 20 45 Height (Feet): 5 Height (Inches): 7.00 Weight (Pounds): 180 Objective Gen: Awake and talking HEENT: NCAT, MMM, EOMI LUNGS: CTAB, No W CARDS: RRR, S1, S2, No M/R/G, ABD: Soft, NT, ND Laboratory Tests Test 04/24/19 05:10 04/24/19 08:18 White Blood Count 15.9 K/UL (4.8-10.8) H Red Blood Count 3.04 M/UL (4.20-5.40) L Hemoglobin 8.4 G/DL (12.0-16.0) L Hematocrit 27.0 % (37.0-47.0) L Mean Corpuscular Volume 89 FL (80-99) Mean Corpuscular Hemoglobin 27.7 PG (27.0-31.0) Mean Corpuscular Hemoglobin Concent 31.2 G/DL (32.0-36.0) L Red Cell Distribution Width 15.4 % (11.6-14.8) H Platelet Count 152 K/UL (150-450) Mean Platelet Volume 6.8 FL (6.5-10.1) Neutrophils (%) (Auto) 79.4 % (45.0-75.0) H Lymphocytes (%) (Auto) 13.8 % (20.0-45.0) L Monocytes (%) (Auto) 5.3 % (1.0-10.0) Eosinophils (%) (Auto) 1.1 % (0.0-3.0) Basophils (%) (Auto) 0.4 % (0.0-2.0) Sodium Level 134 MMOL/L (136-145) L Potassium Level 4.5 MMOL/L (3.5-5.1) Chloride Level 105 MMOL/L (98-107) Carbon Dioxide Level 20 MMOL/L (21-32) L Anion Gap 9 mmol/L (5-15) Blood Urea Nitrogen 39 mg/dL (7-18) H Creatinine 1.8 MG/DL (0.55-1.30) H Estimat Glomerular Filtration Rate mL/min (>60) Glucose Level 161 MG/DL (74-106) H Calcium Level 8.0 MG/DL (8.5-10.1) L Phosphorus Level 3.0 MG/DL (2.5-4.9) Magnesium Level 2.1 MG/DL (1.8-2.4) Total Bilirubin 0.3 MG/DL (0.2-1.0) Aspartate Amino Transf (AST/SGOT) 29 U/L (15-37) Alanine Aminotransferase (ALT/SGPT) 11 U/L (12-78) L Alkaline Phosphatase 123 U/L (46-116) H Total Protein 6.0 G/DL (6.4-8.2) L Albumin 1.2 G/DL (3.4-5.0) L Globulin 4.8 g/dL Albumin/Globulin Ratio 0.2 (1.0-2.7) L Arterial Blood pH 7.386 (7.350-7.450) Arterial Blood Partial Pressure CO2 30.9 mmHg (35.0-45.0) L Arterial Blood Partial Pressure O2 101.6 mmHg (75.0-100.0) H Arterial Blood HCO3 18.1 mmol/L (22.0-26.0) L Arterial Blood Oxygen Saturation 97.3 % (95-100) Arterial Blood Base Excess -6.1 (-2-2) L Marlo Test Positive Current Medications Medications (Trade) Dose Ordered Sig/Kenisha Route PRN Reason Start Time Stop Time Status Last Admin Dose Admin Acetaminophen (Tylenol) 650 mg Q4H PRN ORAL FEVER 04/17/19 12:36 05/17/19 12:35 04/23/19 17:34 Acetaminophen (Tylenol) 650 mg Q4H PRN RECTAL Fever 04/17/19 12:36 05/17/19 12:35 04/18/19 08:53 Cefepime HCl 1 gm/ Dextrose 55 ml @ 110 mls/hr Q24H IVPB 04/22/19 12:00 04/29/19 11:59 04/23/19 12:30 Chlorhexidine Gluconate (Izzy-Hex 2%) 1 applic DAILY@2000 TOPIC 04/20/19 20:00 05/20/19 19:59 04/23/19 21:09 Dextrose (Dextrose 50%) 25 ml Q30M PRN IV Hypoglycemia 04/17/19 12:45 05/12/19 19:44 Dextrose (Dextrose 50%) 50 ml Q30M PRN IV Hypoglycemia 04/17/19 12:45 05/12/19 19:44 Epoetin Bandar (Epoetin Bandar-EPBX(NON ESRD)) 10,000 unit SUBQ 04/19/19 21:00 05/16/19 20:59 04/23/19 21:10 Folic Acid (Folate) 5 mg DAILY ORAL 04/22/19 09:00 05/19/19 08:59 04/24/19 09:01 Hydralazine HCl (Apresoline) 10 mg Q2H PRN IV For High Blood Pressure 04/17/19 12:36 05/17/19 12:35 Insulin Aspart (NovoLOG) Q6HR SUBQ 04/20/19 18:00 05/20/19 17:59 04/24/19 05:25 Lansoprazole (Prevacid) 30 mg DAILY GT 04/22/19 09:00 05/22/19 08:59 04/24/19 09:01 Lorazepam (Ativan 2mg/ml 1ml) 2 mg Q4H PRN IV For Anxiety 04/20/19 11:00 04/27/19 10:59 04/23/19 17:54 Lorazepam (Ativan) 0.5 mg Q6H PRN ORAL For Anxiety 04/17/19 12:37 04/24/19 12:36 Midodrine (Pro-Amatine) 10 mg THREE TIMES A DAY NG 04/21/19 13:00 05/21/19 12:59 04/23/19 12:31 Morphine Sulfate (Morphine Sulfate) 4 mg Q4H PRN IVP For Pain 04/20/19 11:00 04/27/19 10:59 Ondansetron HCl (Zofran) 4 mg Q6H PRN IVP Nausea & Vomiting 04/17/19 12:37 05/17/19 12:36 Polyethylene Glycol (Miralax) 17 gm DAILYPRN PRN ORAL Constipation 04/17/19 12:37 05/17/19 12:36 04/23/19 10:31 Cora Baer M.D. Apr 24, 2019 10:52
--- NOTE | 2019-04-24 11:30 | NUR ---
NURSE NOTES: Patient turned and repositioned, oral care provided. Tolerating current vent settings.
[2019-04-24] MEDS: Cefepime HCl 1 GM in D5W 55 ML IVPB SCH (12:00)
--- NOTE | 2019-04-24 12:21 | NUR ---
NURSE NOTES: Patient noted with fever of 100.0F, 650mg PRN acetaminophen given via GT. Cooling measures in place. Will continue to monitor.
--- NOTE | 2019-04-24 13:40 | NUR ---
NURSE NOTES: Dr. Baer at bedside, notified of patient's fever today and blood cultures drawn but only peripherally d/t PICC not drawing blood.
--- NOTE | 2019-04-24 15:00 | NUR ---
NURSE NOTES: Patient noted with liquid BM. Janet care done and buttock dressing changed. C diff sample ordered by Dr. Baer sent to lab.
--- NOTE | 2019-04-24 17:00 | NUR ---
NURSE NOTES: Patient still attempts to pull at ET tube. Restraint in place. Educated patient on alternative measures but unable to comprehend at this time. Will continue to re-educate and monitor patient.
--- NOTE | 2019-04-24 17:52 | NUR ---
CASE MANAGEMENT:REVIEW 04/24/19 SI: ACUTE RESPIRATORY FAILURE ENCEPHALOPATHY. PNA FOR EGD/PEG PLACEMENT TODAY T 99 HR 93 RR 16 B/P 104/63 SATS 98% on MECH VENT FiO2 30% WBC 15.9 NA 134 CO2 20 BUN 39 CR 1.8 CA 8 ALT 11 ALP 123 IS: IV CEFEPIME Q24 EPOETIN SQ MWF : ICU STATUS INTUBATED DCP: FROM [facility]
--- NOTE | 2019-04-24 18:54 | NUR ---
RESPIRATORY NOTE: Received pt on AC 16, 500VT, 30%, PEEP +5. Pt intubated w/ ETT 7.5 @ 23cm lipline, secured by anchorfast. Pt asleep, responds to stimuli. B/S enmanuel. rhonchi, sxn small to moderate amounts of thick, marin-yellow secretions. Bite block in place as pt tends to bite down ETT. Left hand on soft-restraints, right hand unable to move. Vent plugged into red outlet, ambubag at bedside. Pt in no apparent distress at this time. Will continue to monitor pt.
--- NOTE | 2019-04-24 19:09 | NUR ---
HAND-OFF: Report given to Rose Mary Mckenzie RN.
--- NOTE | 2019-04-24 19:30 | NUR ---
NURSE NOTES: Received pt in no apparent distress. Opens eyes sponatenously on contact, tracks with left sided gaze. Orally intubated and appears to be tolerating current vent parameters; with fiO2 .30 saturating 99%. Secretions small, white; chest sounds with scattered rhonchi. HOB elevated. PICC line on SUZIE intact; IVF at TKO. GT patent with TF of Glucerna 1.2 running at 60ml/h with 0 residuals. FC patent, draining katja urine. Skin sl warm to touch, temp 100.3 axillary. Noted small skin tear on left side of the face, open to air. Left arm with soft wrist restraint. Right arm flaccid. Will continue to monitor. Fall precautions in place.
[2019-04-24] MEDS: Dyna-Hex 2% Top Sol 2oz TOPIC SCH (20:51)
--- NOTE | 2019-04-24 21:30 | NUR ---
NURSE NOTES: Incontinent of large amt of brownish/greenish diarrhea. Cleaned;HS care done. Replaced optifoam on buttock area.
--- NOTE | 2019-04-24 21:38 | Neurology Progress Note ---
Interim History Interim History ROS Limited/Unobtainable: Yes Complaints: AMS Events: Weaning attempts unsuccessful, PEG placed/awaiting Trach Interim History This visit was performed on April 24, 2019 with Geo Espitia Review of Systems Neuro Review of Systems MS unchanged All Systems: reviewed and negative except above Objective Physical Exam Last Vital Signs Date Time Temp Pulse Resp B/P (MAP) Pulse Ox O2 Delivery O2 Flow Rate FiO2 04/24/19 21:00 95 23 153/59 (90) 97 04/24/19 20:58 30 04/24/19 20:00 Mechanical Ventilator 04/24/19 20:00 100.3 04/17/19 05:22 2.0 Laboratory Tests Test 04/24/19 05:10 04/24/19 08:18 White Blood Count 15.9 K/UL (4.8-10.8) H Red Blood Count 3.04 M/UL (4.20-5.40) L Hemoglobin 8.4 G/DL (12.0-16.0) L Hematocrit 27.0 % (37.0-47.0) L Mean Corpuscular Volume 89 FL (80-99) Mean Corpuscular Hemoglobin 27.7 PG (27.0-31.0) Mean Corpuscular Hemoglobin Concent 31.2 G/DL (32.0-36.0) L Red Cell Distribution Width 15.4 % (11.6-14.8) H Platelet Count 152 K/UL (150-450) Mean Platelet Volume 6.8 FL (6.5-10.1) Neutrophils (%) (Auto) 79.4 % (45.0-75.0) H Lymphocytes (%) (Auto) 13.8 % (20.0-45.0) L Monocytes (%) (Auto) 5.3 % (1.0-10.0) Eosinophils (%) (Auto) 1.1 % (0.0-3.0) Basophils (%) (Auto) 0.4 % (0.0-2.0) Sodium Level 134 MMOL/L (136-145) L Potassium Level 4.5 MMOL/L (3.5-5.1) Chloride Level 105 MMOL/L (98-107) Carbon Dioxide Level 20 MMOL/L (21-32) L Anion Gap 9 mmol/L (5-15) Blood Urea Nitrogen 39 mg/dL (7-18) H Creatinine 1.8 MG/DL (0.55-1.30) H Estimat Glomerular Filtration Rate mL/min (>60) Glucose Level 161 MG/DL (74-106) H Calcium Level 8.0 MG/DL (8.5-10.1) L Phosphorus Level 3.0 MG/DL (2.5-4.9) Magnesium Level 2.1 MG/DL (1.8-2.4) Total Bilirubin 0.3 MG/DL (0.2-1.0) Aspartate Amino Transf (AST/SGOT) 29 U/L (15-37) Alanine Aminotransferase (ALT/SGPT) 11 U/L (12-78) L Alkaline Phosphatase 123 U/L (46-116) H Total Protein 6.0 G/DL (6.4-8.2) L Albumin 1.2 G/DL (3.4-5.0) L Globulin 4.8 g/dL Albumin/Globulin Ratio 0.2 (1.0-2.7) L Arterial Blood pH 7.386 (7.350-7.450) Arterial Blood Partial Pressure CO2 30.9 mmHg (35.0-45.0) L Arterial Blood Partial Pressure O2 101.6 mmHg (75.0-100.0) H Arterial Blood HCO3 18.1 mmol/L (22.0-26.0) L Arterial Blood Oxygen Saturation 97.3 % (95-100) Arterial Blood Base Excess -6.1 (-2-2) L Marlo Test Positive General: well developed, well nourished, no acute distress Head: normocophalic Neck: no rigidity EENT: benign Neurologic Exam Mental Status: awake, other Speech: other Language: other Cranial Nerve II: fundus normal, visual cruz, no papilledema, other Cranial Nerves III, IV, : PERRLA, EOMI, other Cranial Nerve V: other Cranial Nerve VII: other Cranial Nerve VIII: other Cranial Nerve IX: other Cranial Nerve XI: other Cranial Nerve XII: other Motor System: other Sensory: other Coordination: other Gait: other Objective Right Hemiplegia at baseline- not following commands, eyes opening to noxious stimuli. Previously on BIPAP, now intubated since 04/20/19 due to respiratory failure while in ICU on BIPAP. She is alert, eyes opening to voice and noxious stimuli. She triple flexes in left leg and arm. Right hemiparesis apparent with minimal withdrawal flexion on right UE/LE. 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 Replace/ Replete lytes as needed - hypocalcemia. PEG feeds when able Trach Planned Critical care time of 40 minutes, was performed in order to assess and manage the high probability of imminent or life threatening deterioration to respiratory/neurologic function, with frequent reassessment and excludes all billable procedures. Phyllis Diop N.P. Apr 24, 2019 21:38
[2019-04-25] VITALS (24 sets, daily range): BP systolic 93–144; BP diastolic 50–85
--- NOTE | 2019-04-25 | NUR ---
NURSE NOTES: Temp 100.3 axillary; cooling measures done. ST/SR on the scope. BP stable. PICC patent. Tolerating GTF; remains on the same vent settings. Oral care and suctioning done
[2019-04-25] MEDS: NovoLOG Insulin Flexpen SUBQ SCH ×5 (00:05→23:52)
--- NOTE | 2019-04-25 02:00 | NUR ---
NURSE NOTES: Repositioned; HOB elevated. No seizures noted. Calm; left wrist soft restraint maintained. UOP 30-40ml/h.
--- NOTE | 2019-04-25 04:00 | NUR ---
NURSE NOTES: No further BM; complete bed bath done. No new skin breakdown. Remains to have generalized edema 2+. Off loaded heels. Temp still at 100.1 axillary. sats 99% on .30 fiO2. BP stable; no distress.
--- NOTE | 2019-04-25 06:02 | Pulmonolgy Critical Care Note ---
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 (7) Hypertensive heart disease (8) Right hemiplegia (9) History of CVA (cerebrovascular accident) (10) CAD (coronary artery disease) Respiratory: monitor respiratory rate, adjust FIO2, CXR Cardiac: continue pressors, continue to monitor HR/BP Renal: F/U I&O, check electrolytes Infectious Disease: check cultures Gastrointestinal: continue feedings/current rate Endocrine: monitor blood sugar, check TSH Hematologic: transfuse if hgb<8.5 Neurologic: PRN Ativan, PRN Morphine, keep patient comfortable Prophylaxis: Protonix, Heparin Time Spent (Minutes): 40 Notes Reviewed: adobe architect, cardio, renal Critical Care - Objective Last 24 Hour Vital Signs Date Time Temp Pulse Resp B/P (MAP) Pulse Ox O2 Delivery O2 Flow Rate FiO2 04/25/19 05:12 114 20 30 04/25/19 05:00 109 19 141/77 (98) 99 04/25/19 04:00 102 04/25/19 04:00 100.1 101 20 129/75 (93) 99 04/25/19 04:00 Mechanical Ventilator 04/25/19 04:00 30 04/25/19 03:06 107 21 30 04/25/19 03:00 105 21 124/68 (86) 96 04/25/19 02:00 106 22 131/67 (88) 97 04/25/19 01:10 110 23 30 04/25/19 01:00 108 23 125/65 (85) 98 04/25/19 00:00 103 04/25/19 00:00 30 04/25/19 00:00 100.3 106 21 130/65 (86) 99 04/25/19 00:00 Mechanical Ventilator 04/24/19 23:05 105 20 30 04/24/19 23:00 107 18 136/70 (92) 99 04/24/19 22:00 97 21 146/69 (94) 99 04/24/19 21:00 95 23 153/59 (90) 97 04/24/19 20:58 91 17 30 04/24/19 20:00 30 6/29/19 20:00 Mechanical Ventilator 04/24/19 20:00 100.3 97 23 140/71 (94) 98 04/24/19 20:00 96 04/24/19 19:00 98 21 138/73 (94) 98 04/24/19 18:52 96 22 30 04/24/19 18:00 101 16 127/68 (87) 98 04/24/19 17:18 101 21 30 04/24/19 17:00 110 21 125/70 (88) 98 04/24/19 16:44 97 04/24/19 16:00 Mechanical Ventilator 04/24/19 16:00 30 04/24/19 16:00 99.0 93 16 104/63 (77) 98 04/24/19 15:09 102 16 30 04/24/19 15:00 106 19 111/60 (77) 97 04/24/19 14:00 112 19 128/72 (90) 96 04/24/19 13:18 110 18 30 04/24/19 13:00 97 17 131/77 (95) 98 04/24/19 12:51 99.6 04/24/19 12:31 97 04/24/19 12:00 100.0 98 19 120/71 (87) 97 04/24/19 12:00 Mechanical Ventilator 04/24/19 12:00 30 04/24/19 11:08 100 17 30 04/24/19 11:00 97 17 131/77 (95) 98 04/24/19 10:00 99 19 117/73 (88) 95 04/24/19 09:00 86 16 127/80 (96) 97 04/24/19 08:42 94 16 30 04/24/19 08:40 30 04/24/19 08:07 103 04/24/19 08:00 Mechanical Ventilator 04/24/19 08:00 99.8 96 16 112/60 (77) 98 04/24/19 08:00 45 04/24/19 07:22 93 16 45 04/24/19 07:00 90 19 142/71 (94) 90 Status: awake, sedated HEENT: atraumatic Neck: full ROM Lungs: clear Heart: HR/BP stable Abdomen: soft, non-tender, feeding tube Extremities: no C/C/E Decubiti: location Micro: Microbiology Date/Time Source Procedure Growth Status 04/24/19 14:45 Stool Clostridium difficile Toxin Assay - Final Complete Accucheck: 204 Critical Care - Subjective Interval Events: orally intubated, sedated, comfortable Condition: critical EKG Rhythm: Sinus Rhythm FI02: 30 Vent Support Breath Rate: 16 Vent Support Mode: AC Vent Tidal Volume: 500 Sputum Amount: Moderate PEEP: 5.0 PIP: 36 Tube Feeding Amount: 60 I&O: Intake and Output 04/24/19 04/25/19 19:00 07:00 Intake Total 1075 ml 900 ml Output Total 365 ml 360 ml Balance 710 ml 540 ml Free Water 300 ml 300 ml IV Total 55 ml Tube Feeding 720 ml 600 ml Output Urine Total 365 ml 360 ml # Bowel Movements 2 2 CXR: extensive infiltrate ET-Tube: 7.5 ET Position: 23 Tony Springer MD Apr 25, 2019 06:02
--- NOTE | 2019-04-25 07:00 | NUR ---
RESPIRATORY NOTE:Received pt on AC 16, 500VT, 30%, PEEP +5. Pt intubated w/ ETT 7.5 @ 23cm lipline, secured by anchorfast. Pt asleep, responds to stimuli. Bite block in place as pt tends to bite down ETT. Vent plugged into red outlet, ambubag at bedside. Pt in no apparent distress at this time. Will continue to monitor pt.
[2019-04-25 07:02] LABS: HEMATOCRIT 23.7 % (37.0-47.0); HEMOGLOBIN 7.6 G/DL (12.0-16.0); MEAN CORPUSCULAR VOLUME 88 FL (80-99); PLATELET COUNT 159 K/UL (150-450); RED BLOOD COUNT 2.68 M/UL (4.20-5.40); RED CELL DISTRIBUTION WIDTH 14.9 % (11.6-14.8); WHITE BLOOD COUNT 14.7 K/UL (4.8-10.8)
--- NOTE | 2019-04-25 07:05 | NUR ---
HAND-OFF: Report given to Nany Acosta RN.
--- NOTE | 2019-04-25 07:05 | NUR ---
NURSE NOTES: Received pt from [facility] in stable condition with no cardiopulmonary noted. Pt hooked to threat monitoring analyst currently ST (101 bpm). Pt is asleep in bed, intubated ETT 7.5, 23cm at R lip, AC 16 TV 500 FiO2 30% Peep 5. GT noted running Glucerna 1.2 at 60cc/hr. F/C noted draining yellow urine. Skin alterations noted. SUZIE PICC noted. L wrist restrain on, skin intact on L wrist and radial pulse palpable. Bed is in lowest position with alarm on, side rails up x 3, call light within reach. Will continue to monitor pt.
[2019-04-25 07:21] LABS: ALANINE AMINOTRANSFERASE 11 U/L (12-78); ALBUMIN 1.1 G/DL (3.4-5.0); ALBUMIN/GLOBULIN RATIO 0.2 (1.0-2.7); ALKALINE PHOSPHATASE 133 U/L (46-116); ANION GAP 10 mmol/L (5-15); ASPARTATE AMINO TRANSFERASE 34 U/L (15-37); BILIRUBIN,TOTAL 0.3 MG/DL (0.2-1.0); BLOOD UREA NITROGEN 45 mg/dL (7-18); CALCIUM 8.2 MG/DL (8.5-10.1); CARBON DIOXIDE 21 MMOL/L (21-32); CHLORIDE 105 MMOL/L (98-107); CREATININE 1.8 MG/DL (0.55-1.30); PHOSPHORUS 2.6 MG/DL (2.5-4.9); POTASSIUM 4.8 MMOL/L (3.5-5.1); SODIUM 136 MMOL/L (136-145)
--- NOTE | 2019-04-25 07:58 | General Progress Note ---
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 ICD Codes: E11.22 - Type 2 diabetes mellitus with diabetic chronic kidney disease; N18.4 - Chronic kidney disease, stage 4 (severe) SNOMED: 47470749, 898903250, 770989290 (7) Respiratory failure ICD Codes: J96.90 - Respiratory failure, unspecified, unspecified whether with hypoxia or hypercapnia SNOMED: 309008010 Qualifiers: Qualified Codes: J96.02 - Acute respiratory failure with hypercapnia Status: unchanged Assessment/Plan: pt diet abx o2 pulm tx neuro psyc eval cbc bmp am ltach eval Subjective Constitutional: Reports: weakness Allergies: Coded Allergies: No Known Allergies (Unverified , 04/12/19) All Systems: reviewed and negative except above Subjective intubated in icu Objective Last 24 Hour Vital Signs Date Time Temp Pulse Resp B/P (MAP) Pulse Ox O2 Delivery O2 Flow Rate FiO2 04/25/19 07:00 102 21 129/69 (89) 100 04/25/19 06:46 106 22 30 04/25/19 06:00 108 20 112/65 (81) 97 04/25/19 05:12 114 20 30 04/25/19 05:00 109 19 141/77 (98) 99 04/25/19 04:00 102 04/25/19 04:00 100.1 101 20 129/75 (93) 99 04/25/19 04:00 Mechanical Ventilator 04/25/19 04:00 30 04/25/19 03:06 107 21 30 04/25/19 03:00 105 21 124/68 (86) 96 04/25/19 02:00 106 22 131/67 (88) 97 04/25/19 01:10 110 23 30 04/25/19 01:00 108 23 125/65 (85) 98 04/25/19 00:00 103 04/25/19 00:00 30 04/25/19 00:00 100.3 106 21 130/65 (86) 99 04/25/19 00:00 Mechanical Ventilator 04/24/19 23:05 105 20 30 04/24/19 23:00 107 18 136/70 (92) 99 04/24/19 22:00 97 21 146/69 (94) 99 04/24/19 21:00 95 23 153/59 (90) 97 04/24/19 20:58 91 17 30 04/24/19 20:00 30 04/24/19 20:00 Mechanical Ventilator 04/24/19 20:00 100.3 97 23 140/71 (94) 98 04/24/19 20:00 96 04/24/19 19:00 98 21 138/73 (94) 98 04/24/19 18:52 96 22 30 04/24/19 18:00 101 16 127/68 (87) 98 04/24/19 17:18 101 21 30 04/24/19 17:00 110 21 125/70 (88) 98 04/24/19 16:44 97 04/24/19 16:00 Mechanical Ventilator 04/24/19 16:00 30 04/24/19 16:00 99.0 93 16 104/63 (77) 98 04/24/19 15:09 102 16 30 04/24/19 15:00 106 19 111/60 (77) 97 04/24/19 14:00 112 19 128/72 (90) 96 04/24/19 13:18 110 18 30 04/24/19 13:00 97 17 131/77 (95) 98 04/24/19 12:51 99.6 04/24/19 12:31 97 04/24/19 12:00 100.0 98 19 120/71 (87) 97 04/24/19 12:00 Mechanical Ventilator 04/24/19 12:00 30 04/24/19 11:08 100 17 30 04/24/19 11:00 97 17 131/77 (95) 98 04/24/19 10:00 99 19 117/73 (88) 95 04/24/19 09:00 86 16 127/80 (96) 97 04/24/19 08:42 94 16 30 04/24/19 08:40 30 04/24/19 08:07 103 04/24/19 08:00 Mechanical Ventilator 04/24/19 08:00 99.8 96 16 112/60 (77) 98 04/24/19 08:00 45 Intake and Output 04/24/19 04/25/19 19:00 07:00 Intake Total 1075 ml 1020 ml Output Total 365 ml 435 ml Balance 710 ml 585 ml Free Water 300 ml 300 ml IV Total 55 ml Tube Feeding 720 ml 720 ml Output Urine Total 365 ml 435 ml # Bowel Movements 2 2 Laboratory Tests 04/24/19 08:18: Arterial Blood pH 7.386, Arterial Blood Partial Pressure CO2 30.9L, Arterial Blood Partial Pressure O2 101.6H, Arterial Blood HCO3 18.1L, Arterial Blood Oxygen Saturation 97.3, Arterial Blood Base Excess -6.1L, Marlo Test Positive 04/25/19 04:30: White Blood Count 14.7H, Red Blood Count 2.68L, Hemoglobin 7.6L, Hematocrit 23.7L, Mean Corpuscular Volume 88, Mean Corpuscular Hemoglobin 28.2, Mean Corpuscular Hemoglobin Concent 32.0, Red Cell Distribution Width 14.9H, Platelet Count 159, Mean Platelet Volume 7.1, Neutrophils (%) (Auto) , Lymphocytes (%) (Auto) , Monocytes (%) (Auto) , Eosinophils (%) (Auto) , Basophils (%) (Auto) , Neutrophils % (Manual) [Pending], Lymphocytes % (Manual) [Pending], Platelet Estimate [Pending], Platelet Morphology [Pending], Sodium Level 136, Potassium Level 4.8, Chloride Level 105, Carbon Dioxide Level 21, Anion Gap 10, Blood Urea Nitrogen 45H, Creatinine 1.8H, Estimat Glomerular Filtration Rate , Glucose Level 175H, Calcium Level 8.2L, Phosphorus Level 2.6, Magnesium Level 2.0, Total Bilirubin 0.3, Aspartate Amino Transf (AST/SGOT) 34, Alanine Aminotransferase (ALT/SGPT) 11L, Alkaline Phosphatase 133H, Total Protein 6.1L, Albumin 1.1L, Globulin 5.0, Albumin/Globulin Ratio 0.2L, Folate 19.9 Height (Feet): 5 Height (Inches): 7.00 Weight (Pounds): 183 General Appearance: lethargic EENT: normal ENT inspection Neck: normal alignment Cardiovascular: normal peripheral pulses, normal rate, regular rhythm Respiratory/Chest: chest wall non-tender, lungs clear, normal breath sounds Abdomen: normal bowel sounds, non tender, soft Extremities: normal inspection Edema: no edema noted Arm (L), no edema noted Arm (R), no edema noted Leg (L), no edema noted Leg (R), no edema noted Pedal (L), no edema noted Pedal (R), no edema noted Generalized Neurologic: motor weakness Skin: normal pigmentation, warm/dry Jama Keating DO Apr 25, 2019 07:57
[2019-04-25] MEDS: Midodrine 10mg tab NG SCH ×3 (08:56→17:15)
--- NOTE | 2019-04-25 09:06 | Cardiology Progress Note ---
Assessment/Plan Status: stable, progressing Assessment/Plan Assessment/Plan Assessment/Plan 1. Atrial flutter, self terminated. Off Lopressor for low BP, currently sinus tachycardia 2. Hypotension. On Midodrine 10 tid 3. Coronary artery disease. On Plavix 75 mg daily 4. Respiratory failure, intubated EF 60% 5. Sepsis. White count 25,000. On IV abx improved to 13K 6. Anemia.S/P PRBC 7. Renal failure BUN/Cr improved to 38/1.[address] Spivey 8. Dysphagia. S/P PEG 04/22/19 9. History of CVA with hemiplegia. 10. Nonverbal status. 11. Full code critical care 35 minutes Subjective Cardiovascular: Reports: no symptoms Respiratory: Reports: no symptoms Gastrointestinal/Abdominal: Reports: no symptoms Genitourinary: Reports: no symptoms Subjective Coverage for Becky remains in ICU, no acute events, tolerating tube feeds, remains intubated, febrile overnight, vitals stable Objective Last 24 Hour Vital Signs Date Time Temp Pulse Resp B/P (MAP) Pulse Ox O2 Delivery O2 Flow Rate FiO2 04/25/19 08:00 30 04/25/19 07:00 102 21 129/69 (89) 100 04/25/19 06:46 106 22 30 04/25/19 06:00 108 20 112/65 (81) 97 04/25/19 05:12 114 20 30 04/25/19 05:00 109 19 141/77 (98) 99 04/25/19 04:00 102 04/25/19 04:00 100.1 101 20 129/75 (93) 99 04/25/19 04:00 Mechanical Ventilator 04/25/19 04:00 30 04/25/19 03:06 107 21 30 04/25/19 03:00 105 21 124/68 (86) 96 04/25/19 02:00 106 22 131/67 (88) 97 04/25/19 01:10 110 23 30 04/25/19 01:00 108 23 125/65 (85) 98 04/25/19 00:00 103 04/25/19 00:00 30 04/25/19 00:00 100.3 106 21 130/65 (86) 99 04/25/19 00:00 Mechanical Ventilator 04/24/19 23:05 105 20 30 04/24/19 23:00 107 18 136/70 (92) 99 04/24/19 22:00 97 21 146/69 (94) 99 04/24/19 21:00 95 23 153/59 (90) 97 04/24/19 20:58 91 17 30 04/24/19 20:00 30 04/24/19 20:00 Mechanical Ventilator 04/24/19 20:00 100.3 97 23 140/71 (94) 98 04/24/19 20:00 96 04/24/19 19:00 98 21 138/73 (94) 98 04/24/19 18:52 96 22 30 04/24/19 18:00 101 16 127/68 (87) 98 04/24/19 17:18 101 21 30 04/24/19 17:00 110 21 125/70 (88) 98 04/24/19 16:44 97 04/24/19 16:00 Mechanical Ventilator 04/24/19 16:00 30 04/24/19 16:00 99.0 93 16 104/63 (77) 98 04/24/19 15:09 102 16 30 04/24/19 15:00 106 19 111/60 (77) 97 04/24/19 14:00 112 19 128/72 (90) 96 04/24/19 13:18 110 18 30 04/24/19 13:00 97 17 131/77 (95) 98 04/24/19 12:51 99.6 04/24/19 12:31 97 04/24/19 12:00 100.0 98 19 120/71 (87) 97 04/24/19 12:00 Mechanical Ventilator 04/24/19 12:00 30 04/24/19 11:08 100 17 30 04/24/19 11:00 97 17 131/77 (95) 98 04/24/19 10:00 99 19 117/73 (88) 95 General Appearance: no apparent distress, on vent EENT: PERRL/EOMI, normal ENT inspection, TMs normal, pharynx normal Neck: non-tender, normal alignment, normal inspection, no JVD Rhythm: ST Cardiovascular: normal peripheral pulses, normal rate, tachycardia Respiratory/Chest: chest wall non-tender, lungs clear, normal breath sounds Abdomen: normal bowel sounds, non tender, soft, no organomegaly Extremities: normal range of motion, non-tender 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, no motor/sensory deficits Intake and Output 04/24/19 04/25/19 19:00 07:00 Intake Total 1075 ml 1020 ml Output Total 365 ml 435 ml Balance 710 ml 585 ml Free Water 300 ml 300 ml IV Total 55 ml Tube Feeding 720 ml 720 ml Output Urine Total 365 ml 435 ml # Bowel Movements 2 2 Laboratory Tests Test 04/25/19 04:30 White Blood Count 14.7 K/UL (4.8-10.8) H Red Blood Count 2.68 M/UL (4.20-5.40) L Hemoglobin 7.6 G/DL (12.0-16.0) L Hematocrit 23.7 % (37.0-47.0) L Mean Corpuscular Volume 88 FL (80-99) Mean Corpuscular Hemoglobin 28.2 PG (27.0-31.0) Mean Corpuscular Hemoglobin Concent 32.0 G/DL (32.0-36.0) Red Cell Distribution Width 14.9 % (11.6-14.8) H Platelet Count 159 K/UL (150-450) Mean Platelet Volume 7.1 FL (6.5-10.1) Neutrophils (%) (Auto) % (45.0-75.0) Lymphocytes (%) (Auto) % (20.0-45.0) Monocytes (%) (Auto) % (1.0-10.0) Eosinophils (%) (Auto) % (0.0-3.0) Basophils (%) (Auto) % (0.0-2.0) Differential Total Cells Counted 100 Neutrophils % (Manual) 77 % (45-75) H Lymphocytes % (Manual) 13 % (20-45) L Monocytes % (Manual) 9 % (1-10) Eosinophils % (Manual) 1 % (0-3) Basophils % (Manual) 0 % (0-2) Band Neutrophils 0 % (0-8) Platelet Estimate Adequate Platelet Morphology Normal Hypochromasia 1+ Anisocytosis 1+ Sodium Level 136 MMOL/L (136-145) Potassium Level 4.8 MMOL/L (3.5-5.1) Chloride Level 105 MMOL/L (98-107) Carbon Dioxide Level 21 MMOL/L (21-32) Anion Gap 10 mmol/L (5-15) Blood Urea Nitrogen 45 mg/dL (7-18) H Creatinine 1.8 MG/DL (0.55-1.30) H Estimat Glomerular Filtration Rate mL/min (>60) Glucose Level 175 MG/DL (74-106) H Calcium Level 8.2 MG/DL (8.5-10.1) L Phosphorus Level 2.6 MG/DL (2.5-4.9) Magnesium Level 2.0 MG/DL (1.8-2.4) Total Bilirubin 0.3 MG/DL (0.2-1.0) Aspartate Amino Transf (AST/SGOT) 34 U/L (15-37) Alanine Aminotransferase (ALT/SGPT) 11 U/L (12-78) L Alkaline Phosphatase 133 U/L (46-116) H Total Protein 6.1 G/DL (6.4-8.2) L Albumin 1.1 G/DL (3.4-5.0) L Globulin 5.0 g/dL Albumin/Globulin Ratio 0.2 (1.0-2.7) L Folate 19.9 NG/ML (8.6-58.9) Microbiology Date/Time Source Procedure Growth Status 04/24/19 14:45 Stool Clostridium difficile Toxin Assay - Final Complete Filsoof,Gildardo Duarte MD Apr 25, 2019 09:06
--- NOTE | 2019-04-25 09:12 | NUR ---
NURSE NOTES: Dr. Steven Norton came in to see pt and informed of Hgb today with no new orders. VS noted and recorded. Oral care provided and pt suctioned. Will continue to monitor pt.
--- NOTE | 2019-04-25 09:57 | NUR ---
RD ASSESSMENT & RECOMMENDATIONS SEE CARE ACTIVITY FOR COMPLETE ASSESSMENT DAILY ESTIMATED NEEDS: Needs based on Sepsis, DM, cardiac, Critical care, wound/ 58kg abw 22-30 kcals/kg 8310-7365 total kcals 1.25-1.5 g protein/kg 72-87 g total protein 25-30 mL/kg 0069-8174 total fluid mLs NUTRITION DIAGNOSIS: * Swallowing difficulty R/T dysphagia, h/o CVA, respiratory status as evidenced by s/p VSS w/ rec for NPO, nonoral feedings, now orally intubated in ICU, s/p PEG placement. * Altered nutrition related lab values R/T diabetes, ARF, cardiac hx as evidenced by A1C of 8.1, POC glu (200's), elev creat (2.4 ->1.8), elev BNP (94533->4917->78850). . CURRENT TF: Glucerna 1.2 @ 60ml/hr x 24 hrs ENTERAL NUTRITION RECOMMENDATIONS: Glucerna 1.2 @ 60ml/hr x 24 hrs to provide 1440ml, 1728kcal, 86g prot, 1159ml free water * Maintain current TF Pt is s/p new PEG placement, initiate Glucerna 1.2 @ 20ml/hr x 6 hrs, advance 10ml q 4-6 hrs as tolerated to goal rate. * HOB over 30 degrees/ water flush per MD --- For Tf w/ less free fluid, rec change to Glucerna 1.5 w/ goal of 45ml/hr to provide: 1080ml, 1620 kcal, 89g pro, 820ml free H2O, and 144g carbs per day. --- ADDITIONAL RECOMMENDATIONS: * Calibrated bedscale wt for accurate CBW * Monitor lytes daily, replete as needed (low phos) * Wound healing: add Jarvis 1pkt BID, vit C 250mg QD * DC IVF once TF starts: BNP elev, for BG control .
--- NOTE | 2019-04-25 10:22 | NUR ---
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 ACUTE METABOLIC ENCEPHALOPATHY VS: BP 95/54, P 95, T 100.4, RR 22, SpO2 98 on VENT AC 16, TV 500, PEEP 5.0, FiO2 30 WBC 14.7, RBC 2.68, H&H 7.6/23.7, BUN 45, CR 1.8 IS:TYLENOL 650mg CEFEPIME 55ml IVPB NOVOLOG SUBQ PREVACID 30mg ICU STATUS
--- NOTE | 2019-04-25 11:09 | NUR ---
NURSE NOTES: Left message for Dr. Galeana regarding pt's brief (5min) episode of Afib. HR 91 bpm and BP 111/58 mmHg. Now back to SR- asymptomatic and no signs of distress.
--- NOTE | 2019-04-25 11:10 | NUR ---
NURSE NOTES: Received call back from Dr. Galeana with no new orders at this time.
[2019-04-25] MEDS: Cefepime HCl 1 GM in D5W 55 ML IVPB SCH (12:42)
--- NOTE | 2019-04-25 12:48 | NUR ---
NURSE NOTES: Pt turned and repositioned. Oral care provided and pt cleaned. 1 BM noted. Will continue to monitor.
--- NOTE | 2019-04-25 14:07 | Nephrology Progress Note ---
Assessment/Plan Problem List: (1) Renal failure (ARF), acute on chronic (2) Diabetic nephropathy (3) Sepsis (4) Pneumonia (5) Right hemiplegia (6) Anemia in chronic kidney disease (CKD) (7) Pulmonary hypertension Assessment intubated Renal failure; - Pre Renal - ? Underlying Renal Anemia Pneumonia / respiratory failure Sepsis elevated Troponin UTI HyperGlycemia / DM Right Esvin HTN Plan transfuse for low Hgb as needed K Phos IV as needed venofer Folate 24 H urine protein check 2.4 gram Fraga Hydrate BP and BS control urine studies slow hydrate kidney MAIKEL results noted: No [place] 2D echo Noted visualized except distal setum and inferiro wall hypokinesis Left ventricular ejection fraction estimated to be 55-60 %. avoid Nephrotoxics per orders Subjective ROS Limited/Unobtainable: Yes Objective Objective Last 24 Hour Vital Signs Date Time Temp Pulse Resp B/P (MAP) Pulse Ox O2 Delivery O2 Flow Rate FiO2 04/25/19 13:15 95 18 30 04/25/19 13:00 84 17 95/55 (68) 98 04/25/19 12:50 Mechanical Ventilator 04/25/19 12:00 Mechanical Ventilator 04/25/19 12:00 100.4 90 20 105/50 (68) 98 04/25/19 12:00 30 04/25/19 12:00 78 04/25/19 11:29 98 22 30 04/25/19 11:00 94 17 111/58 (75) 96 04/25/19 10:00 95 18 116/74 (88) 97 04/25/19 09:20 102 20 30 04/25/19 09:00 100 18 127/62 (83) 98 04/25/19 08:00 101 04/25/19 08:00 30 04/25/19 08:00 98.3 102 17 93/50 (64) 98 04/25/19 08:00 Mechanical Ventilator 04/25/19 07:00 102 21 129/69 (89) 100 04/25/19 06:46 106 22 30 04/25/19 06:00 108 20 112/65 (81) 97 04/25/19 05:12 114 20 30 04/25/19 05:00 109 19 141/77 (98) 99 04/25/19 04:00 102 04/25/19 04:00 100.1 101 20 129/75 (93) 99 04/25/19 04:00 Mechanical Ventilator 04/25/19 04:00 30 04/25/19 03:06 107 21 30 04/25/19 03:00 105 21 124/68 (86) 96 04/25/19 02:00 106 22 131/67 (88) 97 04/25/19 01:10 110 23 30 04/25/19 01:00 108 23 125/65 (85) 98 04/25/19 00:00 103 04/25/19 00:00 30 04/25/19 00:00 100.3 106 21 130/65 (86) 99 04/25/19 00:00 Mechanical Ventilator 04/24/19 23:05 105 20 30 04/24/19 23:00 107 18 136/70 (92) 99 04/24/19 22:00 97 21 146/69 (94) 99 04/24/19 21:00 95 23 153/59 (90) 97 04/24/19 20:58 91 17 30 04/24/19 20:00 30 04/24/19 20:00 Mechanical Ventilator 04/24/19 20:00 100.3 97 23 140/71 (94) 98 04/24/19 20:00 96 04/24/19 19:00 98 21 138/73 (94) 98 04/24/19 18:52 96 22 30 04/24/19 18:00 101 16 127/68 (87) 98 04/24/19 17:18 101 21 30 04/24/19 17:00 110 21 125/70 (88) 98 04/24/19 16:44 97 04/24/19 16:00 Mechanical Ventilator 04/24/19 16:00 30 04/24/19 16:00 99.0 93 16 104/63 (77) 98 04/24/19 15:09 102 16 30 04/24/19 15:00 106 19 111/60 (77) 97 Intake and Output 04/24/19 04/25/19 19:00 07:00 Intake Total 1075 ml 1020 ml Output Total 365 ml 435 ml Balance 710 ml 585 ml Free Water 300 ml 300 ml IV Total 55 ml Tube Feeding 720 ml 720 ml Output Urine Total 365 ml 435 ml # Bowel Movements 2 2 Laboratory Tests 04/25/19 04:30: White Blood Count 14.7H, Red Blood Count 2.68L, Hemoglobin 7.6L, Hematocrit 23.7L, Mean Corpuscular Volume 88, Mean Corpuscular Hemoglobin 28.2, Mean Corpuscular Hemoglobin Concent 32.0, Red Cell Distribution Width 14.9H, Platelet Count 159, Mean Platelet Volume 7.1, Neutrophils (%) (Auto) , Lymphocytes (%) (Auto) , Monocytes (%) (Auto) , Eosinophils (%) (Auto) , Basophils (%) (Auto) , Differential Total Cells Counted 100, Neutrophils % ( Manual) 77H, Lymphocytes % (Manual) 13L, Monocytes % (Manual) 9, Eosinophils % ( Manual) 1, Basophils % (Manual) 0, Band Neutrophils 0, Platelet Estimate Adequate, Platelet Morphology Normal, Hypochromasia 1+, Anisocytosis 1+, Sodium Level 136, Potassium Level 4.8, Chloride Level 105, Carbon Dioxide Level 21, Anion Gap 10, Blood Urea Nitrogen 45H, Creatinine 1.8H, Estimat Glomerular Filtration Rate , Glucose Level 175H, Calcium Level 8.2L, Phosphorus Level 2.6, Magnesium Level 2.0, Total Bilirubin 0.3, Aspartate Amino Transf (AST/SGOT) 34, Alanine Aminotransferase (ALT/SGPT) 11L, Alkaline Phosphatase 133H, Total Protein 6.1L, Albumin 1.1L, Globulin 5.0, Albumin/Globulin Ratio 0.2L, Folate 19.9 Height (Feet): 5 Height (Inches): 7.00 Weight (Pounds): 183 General Appearance: no apparent distress EENT: other - vented Cardiovascular: tachycardia Respiratory/Chest: decreased breath sounds Abdomen: distended Wally Spivey MD Apr 25, 2019 14:06
--- NOTE | 2019-04-25 14:35 | NUR ---
NURSE NOTES: Pt repositioned and wound care performed. SBP noted to be increasing. VS noted and recorded. Pt is awake and opens eyes spontaneously. No signs of distress at this time.
--- NOTE | 2019-04-25 15:17 | Hematology/Onc Progress Note ---
Assessment/Plan Assessment/Plan ASSESSMENT AND RECOMMENDATIONS # Anemia of chronic disease due to underlying chronic medical issues, multifactorial --> Anemia workup has been ordered and reviewed. --> Ferritin 274, iron 6, tibc 143 --> No evidence of hemolysis is noted, peripheral smear has been reviewed. --> Hgb goal >7. Transfuse prn. --> Epogen has been ordered --> Medications have been reviewed --> Stool OB positive, GI is following --> S/P egd/peg/bx on 04/22. --> Hgb trend: 9.4-->9.8-->8.6-->7.6-->7.1-->8.4-->7.6 --> Cont folic acid --> Blood tx: 04/22 # Lung mass. First noted on CXR. --> Ct chest has been ordered and reviewed. CT reveals no mass. --> hold off on any tumor marker testing --> as per id and pulm mino, appreciate RECS # Leukocytosis/elevated white blood cell count, unspecified likely related to underlying sepsis due to pna confirmed by CT chest and CXR --> have reviewed peripheral smear and bandemia/neutrophilia noted --> continue antibiotics if they have been started by ID team --> monitor for resolution --> trend 25-->20-->15k-->16.3-->14.3-->12.1-->13.6-->13.3-->13.2-->14.7k # Respiratory distress. BiPAP per Pulmonary. # Sepsis d/t pna and uti. --> Antibiotics per Infectious Disease. # Renal failure. Nephro is following, appreciate recs # Elevated troponin. Recs per cardiology # Malnutrition. --> Dietary to follow. The time this note is entered does not reflect the time the patient was examined. I greatly appreciate the consultation. Subjective Allergies: Coded Allergies: No Known Allergies (Unverified , 04/12/19) Subjective 04/15: no events reported, no f/c, on abx, seen by id, pulm, hgb remains stable 04/16: Pt resting in bed, nonverbal. No distress noted. WBC remains elevated. Plan to transfer to [facility]. 04/18: Pt in ICU. CXR yesterday shows pna. H/H stable. On BiPAP. 04/20: Pt no signs of distress. ET in place confirmed by CXR 04/21: Pt remains in icu. CXR today shows Pulmonary edema. Pleural effusion suspected bilaterally. PEG cancelled per Dr. Gentile, rescheduled for tomorrow. CBC reviewed. 04/22: Remains in ICU. S/P egd/peg/bx. Hgb at 7.1, blood tx ordered. 04/23: Remains in ICU. S/P blood tx, Hgb improved to 8.4 04/25: Remains in ICU. Pt seen and examined, Hgb at 7.6, Objective Objective Current Medications Medications (Trade) Dose Ordered Sig/Kenisha Route PRN Reason Start Time Stop Time Status Last Admin Dose Admin Acetaminophen (Tylenol) 650 mg Q4H PRN ORAL FEVER 04/17/19 12:36 05/17/19 12:35 04/24/19 12:21 Acetaminophen (Tylenol) 650 mg Q4H PRN RECTAL Fever 04/17/19 12:36 05/17/19 12:35 04/18/19 08:53 Cefepime HCl 1 gm/ Dextrose 55 ml @ 110 mls/hr Q24H IVPB 04/22/19 12:00 04/29/19 11:59 04/25/19 12:42 Chlorhexidine Gluconate (Izzy-Hex 2%) 1 applic DAILY@2000 TOPIC 04/20/19 20:00 05/20/19 19:59 04/24/19 20:51 Dextrose (Dextrose 50%) 25 ml Q30M PRN IV Hypoglycemia 04/17/19 12:45 05/12/19 19:44 Dextrose (Dextrose 50%) 50 ml Q30M PRN IV Hypoglycemia 04/17/19 12:45 05/12/19 19:44 Epoetin Bandar (Epoetin Bandar-EPBX(NON ESRD)) 10,000 unit FRI-WED-FRI SUBQ 04/19/19 21:00 05/16/19 20:59 04/23/19 21:10 Folic Acid (Folate) 1 mg DAILY ORAL 04/26/19 09:00 05/19/19 08:59 Hydralazine HCl (Apresoline) 10 mg Q2H PRN IV For High Blood Pressure 04/17/19 12:36 05/17/19 12:35 Insulin Aspart (NovoLOG) Q6HR SUBQ 04/20/19 18:00 05/20/19 17:59 04/25/19 12:44 Lansoprazole (Prevacid) 30 mg DAILY GT 04/22/19 09:00 05/22/19 08:59 04/25/19 08:56 Lorazepam (Ativan 2mg/ml 1ml) 2 mg Q4H PRN IV For Anxiety 04/20/19 11:00 04/27/19 10:59 04/23/19 17:54 Midodrine (Pro-Amatine) 10 mg THREE TIMES A DAY NG 04/21/19 13:00 05/21/19 12:59 04/25/19 13:12 Morphine Sulfate (Morphine Sulfate) 4 mg Q4H PRN IVP For Pain 04/20/19 11:00 04/27/19 10:59 Ondansetron HCl (Zofran) 4 mg Q6H PRN IVP Nausea & Vomiting 04/17/19 12:37 05/17/19 12:36 Polyethylene Glycol (Miralax) 17 gm DAILYPRN PRN ORAL Constipation 04/17/19 12:37 05/17/19 12:36 04/23/19 10:31 Last 24 Hour Vital Signs Date Time Temp Pulse Resp B/P (MAP) Pulse Ox O2 Delivery O2 Flow Rate FiO2 04/25/19 14:00 88 22 119/65 (83) 98 04/25/19 13:15 95 18 30 04/25/19 13:00 84 17 95/55 (68) 98 04/25/19 12:50 Mechanical Ventilator 04/25/19 12:00 Mechanical Ventilator 04/25/19 12:00 100.4 90 20 105/50 (68) 98 04/25/19 12:00 30 04/25/19 12:00 78 04/25/19 11:29 98 22 30 04/25/19 11:00 94 17 111/58 (75) 96 04/25/19 10:00 95 18 116/74 (88) 97 04/25/19 09:20 102 20 30 04/25/19 09:00 100 18 127/62 (83) 98 04/25/19 08:00 101 04/25/19 08:00 30 04/25/19 08:00 98.3 102 17 93/50 (64) 98 04/25/19 08:00 Mechanical Ventilator 04/25/19 07:00 102 21 129/69 (89) 100 04/25/19 06:46 106 22 30 04/25/19 06:00 108 20 112/65 (81) 97 04/25/19 05:12 114 20 30 04/25/19 05:00 109 19 141/77 (98) 99 04/25/19 04:00 102 04/25/19 04:00 100.1 101 20 129/75 (93) 99 04/25/19 04:00 Mechanical Ventilator 04/25/19 04:00 30 04/25/19 03:06 107 21 30 04/25/19 03:00 105 21 124/68 (86) 96 04/25/19 02:00 106 22 131/67 (88) 97 04/25/19 01:10 110 23 30 04/25/19 01:00 108 23 125/65 (85) 98 04/25/19 00:00 103 04/25/19 00:00 30 04/25/19 00:00 100.3 106 21 130/65 (86) 99 04/25/19 00:00 Mechanical Ventilator 04/24/19 23:05 105 20 30 04/24/19 23:00 107 18 136/70 (92) 99 04/24/19 22:00 97 21 146/69 (94) 99 04/24/19 21:00 95 23 153/59 (90) 97 04/24/19 20:58 91 17 30 04/24/19 20:00 30 04/24/19 20:00 Mechanical Ventilator 04/24/19 20:00 100.3 97 23 140/71 (94) 98 04/24/19 20:00 96 04/24/19 19:00 98 21 138/73 (94) 98 04/24/19 18:52 96 22 30 04/24/19 18:00 101 16 127/68 (87) 98 04/24/19 17:18 101 21 30 04/24/19 17:00 110 21 125/70 (88) 98 04/24/19 16:44 97 04/24/19 16:00 Mechanical Ventilator 04/24/19 16:00 30 04/24/19 16:00 99.0 93 16 104/63 (77) 98 04/24/19 15:09 102 16 30 04/24/19 15:00 106 19 111/60 (77) 97 04/24/19 14:00 112 19 128/72 (90) 96 04/24/19 13:18 110 18 30 04/24/19 13:00 97 17 131/77 (95) 98 04/24/19 12:51 99.6 04/24/19 12:31 97 04/24/19 12:00 100.0 98 19 120/71 (87) 97 04/24/19 12:00 Mechanical Ventilator 04/24/19 12:00 30 04/24/19 11:08 100 17 30 04/24/19 11:00 97 17 131/77 (95) 98 04/24/19 10:00 99 19 117/73 (88) 95 04/24/19 09:00 86 16 127/80 (96) 97 04/24/19 08:42 94 16 30 04/24/19 08:40 30 04/24/19 08:07 103 04/24/19 08:00 Mechanical Ventilator 04/24/19 08:00 99.8 96 16 112/60 (77) 98 04/24/19 08:00 45 04/24/19 07:22 93 16 45 04/24/19 07:00 90 19 142/71 (94) 90 04/24/19 06:00 88 16 109/62 (78) 99 04/24/19 05:03 92 16 45 04/24/19 05:00 86 17 121/67 (85) 100 04/24/19 04:00 99.3 85 18 146/73 (97) 100 04/24/19 04:00 Mechanical Ventilator 04/24/19 04:00 45 04/24/19 03:31 87 04/24/19 03:15 85 16 45 04/24/19 03:00 88 16 137/74 (95) 100 04/24/19 02:00 92 16 145/71 (95) 100 04/24/19 01:24 89 19 45 04/24/19 01:00 84 16 108/59 (75) 100 04/24/19 00:00 99.7 88 16 95/51 (66) 100 04/24/19 00:00 Mechanical Ventilator 04/24/19 00:00 45 04/23/19 23:49 88 04/23/19 23:12 80 16 45 04/23/19 23:00 76 16 117/92 (100) 99 04/23/19 22:00 74 18 128/106 (113) 100 04/23/19 21:00 86 18 111/66 (81) 100 04/23/19 20:50 90 16 45 04/23/19 20:00 97.7 90 19 123/68 (86) 100 04/23/19 20:00 Mechanical Ventilator 04/23/19 20:00 85 04/23/19 20:00 45 04/23/19 19:00 92 16 142/71 (94) 99 04/23/19 18:58 88 16 45 04/23/19 18:00 99.0 90 16 130/66 (87) 100 04/23/19 17:25 88 18 45 04/23/19 17:00 87 19 119/64 (82) 100 04/23/19 16:00 45 04/23/19 16:00 79 16 123/61 (81) 100 04/23/19 16:00 Mechanical Ventilator 04/23/19 16:00 80 04/23/19 15:11 86 18 45 Intake and Output 04/24/19 04/25/19 19:00 07:00 Intake Total 1075 ml 1020 ml Output Total 365 ml 435 ml Balance 710 ml 585 ml Free Water 300 ml 300 ml IV Total 55 ml Tube Feeding 720 ml 720 ml Output Urine Total 365 ml 435 ml # Bowel Movements 2 2 Labs Test 04/22/19 19:30 04/23/19 04:30 04/23/19 06:59 04/23/19 08:15 White Blood Count 13.1 K/UL (4.8-10.8) 13.2 K/UL (4.8-10.8) Red Blood Count 3.25 M/UL (4.20-5.40) 3.04 M/UL (4.20-5.40) Hemoglobin 9.0 G/DL (12.0-16.0) 8.4 G/DL (12.0-16.0) Hematocrit 28.6 % (37.0-47.0) 25.8 % (37.0-47.0) Mean Corpuscular Volume 88 FL (80-99) 85 FL (80-99) Mean Corpuscular Hemoglobin 27.5 PG (27.0-31.0) 27.5 PG (27.0-31.0) Mean Corpuscular Hemoglobin Concent 31.4 G/DL (32.0-36.0) 32.3 G/DL (32.0-36.0) Red Cell Distribution Width 13.7 % (11.6-14.8) 14.3 % (11.6-14.8) Platelet Count 159 K/UL (150-450) 141 K/UL (150-450) Mean Platelet Volume 7.8 FL (6.5-10.1) 8.1 FL (6.5-10.1) Neutrophils (%) (Auto) 81.0 % (45.0-75.0) 84.8 % (45.0-75.0) Lymphocytes (%) (Auto) 12.6 % (20.0-45.0) 9.2 % (20.0-45.0) Monocytes (%) (Auto) 5.4 % (1.0-10.0) 4.7 % (1.0-10.0) Eosinophils (%) (Auto) 0.7 % (0.0-3.0) 1.0 % (0.0-3.0) Basophils (%) (Auto) 0.4 % (0.0-2.0) 0.3 % (0.0-2.0) Sodium Level 135 MMOL/L (136-145) Potassium Level 3.9 MMOL/L (3.5-5.1) Chloride Level 105 MMOL/L (98-107) Carbon Dioxide Level 21 MMOL/L (21-32) Anion Gap 9 mmol/L (5-15) Blood Urea Nitrogen 38 mg/dL (7-18) Creatinine 1.7 MG/DL (0.55-1.30) Estimat Glomerular Filtration Rate mL/min (>60) Glucose Level 147 MG/DL (74-106) Calcium Level 7.8 MG/DL (8.5-10.1) Phosphorus Level 3.2 MG/DL (2.5-4.9) Magnesium Level 2.1 MG/DL (1.8-2.4) Total Bilirubin 0.3 MG/DL (0.2-1.0) Aspartate Amino Transf (AST/SGOT) 30 U/L (15-37) Alanine Aminotransferase (ALT/SGPT) 14 U/L (12-78) Alkaline Phosphatase 80 U/L (46-116) C-Reactive Protein, Quantitative 19.5 mg/dL (0.00-0.90) Pro-B-Type Natriuretic Peptide 07357 pg/mL (0-125) Total Protein 5.6 G/DL (6.4-8.2) Albumin 1.2 G/DL (3.4-5.0) Globulin 4.4 g/dL Albumin/Globulin Ratio 0.3 (1.0-2.7) Arterial Blood pH 7.354 (7.350-7.450) Arterial Blood Partial Pressure CO2 32.5 mmHg (35.0-45.0) Arterial Blood Partial Pressure O2 108.3 mmHg (75.0-100.0) Arterial Blood HCO3 17.7 mmol/L (22.0-26.0) Arterial Blood Oxygen Saturation 96.7 % (95-100) Arterial Blood Base Excess -7.0 (-2-2) Marlo Test Positive Test 04/24/19 05:10 04/24/19 08:18 04/25/19 04:30 White Blood Count 15.9 K/UL (4.8-10.8) 14.7 K/UL (4.8-10.8) Red Blood Count 3.04 M/UL (4.20-5.40) 2.68 M/UL (4.20-5.40) Hemoglobin 8.4 G/DL (12.0-16.0) 7.6 G/DL (12.0-16.0) Hematocrit 27.0 % (37.0-47.0) 23.7 % (37.0-47.0) Mean Corpuscular Volume 89 FL (80-99) 88 FL (80-99) Mean Corpuscular Hemoglobin 27.7 PG (27.0-31.0) 28.2 PG (27.0-31.0) Mean Corpuscular Hemoglobin Concent 31.2 G/DL (32.0-36.0) 32.0 G/DL (32.0-36.0) Red Cell Distribution Width 15.4 % (11.6-14.8) 14.9 % (11.6-14.8) Platelet Count 152 K/UL (150-450) 159 K/UL (150-450) Mean Platelet Volume 6.8 FL (6.5-10.1) 7.1 FL (6.5-10.1) Neutrophils (%) (Auto) 79.4 % (45.0-75.0) % (45.0-75.0) Lymphocytes (%) (Auto) 13.8 % (20.0-45.0) % (20.0-45.0) Monocytes (%) (Auto) 5.3 % (1.0-10.0) % (1.0-10.0) Eosinophils (%) (Auto) 1.1 % (0.0-3.0) % (0.0-3.0) Basophils (%) (Auto) 0.4 % (0.0-2.0) % (0.0-2.0) Sodium Level 134 MMOL/L (136-145) 136 MMOL/L (136-145) Potassium Level 4.5 MMOL/L (3.5-5.1) 4.8 MMOL/L (3.5-5.1) Chloride Level 105 MMOL/L (98-107) 105 MMOL/L (98-107) Carbon Dioxide Level 20 MMOL/L (21-32) 21 MMOL/L (21-32) Anion Gap 9 mmol/L (5-15) 10 mmol/L (5-15) Blood Urea Nitrogen 39 mg/dL (7-18) 45 mg/dL (7-18) Creatinine 1.8 MG/DL (0.55-1.30) 1.8 MG/DL (0.55-1.30) Estimat Glomerular Filtration Rate mL/min (>60) mL/min (>60) Glucose Level 161 MG/DL (74-106) 175 MG/DL (74-106) Calcium Level 8.0 MG/DL (8.5-10.1) 8.2 MG/DL (8.5-10.1) Phosphorus Level 3.0 MG/DL (2.5-4.9) 2.6 MG/DL (2.5-4.9) Magnesium Level 2.1 MG/DL (1.8-2.4) 2.0 MG/DL (1.8-2.4) Total Bilirubin 0.3 MG/DL (0.2-1.0) 0.3 MG/DL (0.2-1.0) Aspartate Amino Transf (AST/SGOT) 29 U/L (15-37) 34 U/L (15-37) Alanine Aminotransferase (ALT/SGPT) 11 U/L (12-78) 11 U/L (12-78) Alkaline Phosphatase 123 U/L (46-116) 133 U/L (46-116) Total Protein 6.0 G/DL (6.4-8.2) 6.1 G/DL (6.4-8.2) Albumin 1.2 G/DL (3.4-5.0) 1.1 G/DL (3.4-5.0) Globulin 4.8 g/dL 5.0 g/dL Albumin/Globulin Ratio 0.2 (1.0-2.7) 0.2 (1.0-2.7) Arterial Blood pH 7.386 (7.350-7.450) Arterial Blood Partial Pressure CO2 30.9 mmHg (35.0-45.0) Arterial Blood Partial Pressure O2 101.6 mmHg (75.0-100.0) Arterial Blood HCO3 18.1 mmol/L (22.0-26.0) Arterial Blood Oxygen Saturation 97.3 % (95-100) Arterial Blood Base Excess -6.1 (-2-2) Marlo Test Positive Differential Total Cells Counted 100 Neutrophils % (Manual) 77 % (45-75) Lymphocytes % (Manual) 13 % (20-45) Monocytes % (Manual) 9 % (1-10) Eosinophils % (Manual) 1 % (0-3) Basophils % (Manual) 0 % (0-2) Band Neutrophils 0 % (0-8) Platelet Estimate Adequate Platelet Morphology Normal Hypochromasia 1+ Anisocytosis 1+ Folate 19.9 NG/ML (8.6-58.9) Height (Feet): 5 Height (Inches): 7.00 Weight (Pounds): 183 Objective PHYSICAL EXAMINATION: GENERAL: BiPAP in place, sleeping in bed, slight short of breath. VITAL SIGNS: Have been reviewed CARDIOVASCULAR: No murmur. LUNGS: Poor exchange. TRACH++ ABDOMEN: Bowel sounds distant. EXTREMITIES: No cyanosis, clubbing, or edema. NEUROLOGIC: Patient is flaccid in bed, probably sedated. Steven Norton MD Apr 25, 2019 15:17
[2019-04-25] MEDS ORDERED: NS 275ml ONE (16:45)
--- NOTE | 2019-04-25 16:50 | NUR ---
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
--- NOTE | 2019-04-25 18:00 | NUR ---
NURSE NOTES: Pt repositioned and cleaned. 2nd BM noted today (liquid). Rectal tube inserted. Oral care provided and wound care performed again. No signs of distress noted at this time. Will continue to monitor pt.
--- NOTE | 2019-04-25 19:25 | NUR ---
HAND-OFF: Report given to HORTENCIA Menjivar. Pt in stable condition.
--- NOTE | 2019-04-25 19:30 | NUR ---
NURSE NOTES: Received pt in no acute distress, opens eyes and tracks to the left side. Remains orally intubated and appears to eb tolerating current vent settings; fiO2 .30, saturating 99%. Secretions orally mod amt, clear white; chest sounds with scattered rhonchi. PICC on SUZIE intact; IV at TKO. GT patent, GTF with Glucerna 1.2 running at 60ml/h with 0 residuals. Temp 99.7, NSR; BP stable. FC intact, draining light katja urine, cloudy at 30-4-ml/h. Rectal tube in place, draining yellow liquid stools. Left wrist soft restraint in place. Fall precautions active, bed locked in low position and armed. Will continue to monitor.
[2019-04-25] MEDS: Dyna-Hex 2% Top Sol 2oz TOPIC SCH (21:01)
--- NOTE | 2019-04-25 22:00 | NUR ---
NURSE NOTES: Asleep with HOB elevated. Oral care and suctioning done; repositioned. Calm. No changes in current vent settings, tolerating GTF at 60ml/h.
[2019-04-26] VITALS (24 sets, daily range): BP systolic 95–154; BP diastolic 48–78
--- NOTE | 2019-04-26 | NUR ---
NURSE NOTES: Temp 100.3 axillary; cooling measures and Tylenol 650mg given via GT.Irrigated rectal tube. BP stable; HR 85, NSR no ectopy. Will continue to monitor
--- NOTE | 2019-04-26 02:00 | NUR ---
NURSE NOTES: VSS. Calm, asleep; no distress.
--- NOTE | 2019-04-26 04:00 | NUR ---
NURSE NOTES: Afebrile, temp 98.7 axillary. Complete bed bath done. Irrigated rectal tube, no leaks. Changed Fraga bag. Redressed GT site. PICC patent. VSS. Tolerates GTF. Status quo.
[2019-04-26] MEDS: NovoLOG Insulin Flexpen SUBQ SCH ×3 (05:42→18:09)
[2019-04-26 07:04] LABS: HEMATOCRIT 22.8 % (37.0-47.0); HEMOGLOBIN 7.1 G/DL (12.0-16.0); MEAN CORPUSCULAR VOLUME 89 FL (80-99); PLATELET COUNT 179 K/UL (150-450); RED BLOOD COUNT 2.57 M/UL (4.20-5.40); RED CELL DISTRIBUTION WIDTH 14.9 % (11.6-14.8); WHITE BLOOD COUNT 12.9 K/UL (4.8-10.8)
[2019-04-26 07:05] LABS: ALANINE AMINOTRANSFERASE 11 U/L (12-78); ALBUMIN 1.1 G/DL (3.4-5.0); ALBUMIN/GLOBULIN RATIO 0.2 (1.0-2.7); ALKALINE PHOSPHATASE 127 U/L (46-116); ANION GAP 8 mmol/L (5-15); ASPARTATE AMINO TRANSFERASE 36 U/L (15-37); BILIRUBIN,TOTAL 0.2 MG/DL (0.2-1.0); BLOOD UREA NITROGEN 52 mg/dL (7-18); CALCIUM 8.3 MG/DL (8.5-10.1); CARBON DIOXIDE 22 MMOL/L (21-32); CHLORIDE 106 MMOL/L (98-107); CREATININE 1.9 MG/DL (0.55-1.30); PHOSPHORUS 3.3 MG/DL (2.5-4.9); SODIUM 136 MMOL/L (136-145)
--- NOTE | 2019-04-26 07:09 | NUR ---
RESPIRATORY NOTE: Patient receive mechanically ventilated on PB 840 with current ordered vent settings. Patient is orally intubated with an ETT tube size 7.5 with 23cm at the lip line that is secured with an anchor fast. Vent alarms are functional and audible. There is an ambu bag available at the bedside and the vent is connected to a red outlet. Will continue to monitor.
--- NOTE | 2019-04-26 07:20 | NUR ---
HAND-OFF: Report given to Gabby BURNETT.
--- NOTE | 2019-04-26 07:30 | NUR ---
NURSE NOTES: Received change of shift report from Jonah BURNETT. Pt is awake, alert, orally intubated, follows with eyes on left side only. Left soft wrist restraint in place to prevent pt from reaching/pulling ET tube; pt has right sided weakness. in monitoring specialist displays NSR with heart rate in the 80's. Generalized edema noted, with weak peripheral pulses. ETT 7.5 at 23cm at left lipline, vent settings AC16, VT500, Peep 5.0, FIO2 30% with O2Sat now at 100%. Bilateral inspiratory/expiratory rhonchi/rales present. GT in place with feeding Glucerna 1.2 infusing at 60ml/hour. GT site dressing in place, dry/intact. Pt is tolerating feeding well with no residual. Abdomen is large, round, nondistended, soft/nontender to touch, with active bowel sounds in all quadrants. Rectal tube is in place, draining liquid brown stool. Fraga catheter is in place, draining mildly cloudy/yellow urine. Pt has central line IV access right UA double-lumen PICC, currently TKO. Skin has optifoam dressing covering right buttock skin tear, and 2x2 dressing covering right cheek small skin irritation. Pt is on P200 pressure release mattress with bilateral extremities elevated on pillows, and SCDs on lower extremities for DVT prophylaxis. Head of bed at 30 degrees, bed locked, three side rails up, call light within reach. Will continue to monitor pt and follow plan of care per MD orders and protocol.
--- NOTE | 2019-04-26 08:34 | General Progress Note ---
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 ICD Codes: E11.22 - Type 2 diabetes mellitus with diabetic chronic kidney disease; N18.4 - Chronic kidney disease, stage 4 (severe) SNOMED: 58607356, 008336336, 738144322 (7) Respiratory failure ICD Codes: J96.90 - Respiratory failure, unspecified, unspecified whether with hypoxia or hypercapnia SNOMED: 892777382 Qualifiers: Qualified Codes: J96.02 - Acute respiratory failure with hypercapnia Status: stable, progressing Assessment/Plan: pt diet abx o2 pulm tx neuro psyc eval cbc bmp am ltach eval Subjective Allergies: Coded Allergies: No Known Allergies (Unverified , 04/12/19) All Systems: reviewed and negative except above Subjective intubated in icu Objective Last 24 Hour Vital Signs Date Time Temp Pulse Resp B/P (MAP) Pulse Ox O2 Delivery O2 Flow Rate FiO2 04/26/19 08:00 86 19 114/64 (81) 99 04/26/19 07:06 84 19 30 04/26/19 07:00 87 21 124/71 (88) 98 04/26/19 06:04 84 20 121/62 (81) 99 04/26/19 05:06 89 16 30 30 04/26/19 05:03 78 18 118/60 (79) 99 04/26/19 04:00 98.7 79 16 114/56 (75) 98 04/26/19 04:00 30 04/26/19 04:00 78 04/26/19 04:00 Mechanical Ventilator 04/26/19 03:25 80 16 30 30 04/26/19 03:00 80 16 107/56 (73) 98 04/26/19 02:00 75 16 113/52 (72) 98 04/26/19 01:21 78 16 30 30 04/26/19 01:00 84 16 95/48 (64) 98 04/26/19 00:30 99.8 04/26/19 00:00 100.3 88 17 118/58 (78) 99 04/26/19 00:00 85 04/26/19 00:00 30 04/26/19 00:00 Mechanical Ventilator 04/25/19 23:16 80 16 30 30 04/25/19 23:00 82 16 112/62 (79) 97 04/25/19 22:00 85 19 117/61 (79) 98 04/25/19 21:10 79 16 30 30 04/25/19 21:00 80 16 117/61 (79) 98 04/25/19 20:00 85 04/25/19 20:00 83 16 139/69 (92) 99 04/25/19 20:00 30 04/25/19 20:00 Mechanical Ventilator 04/25/19 19:15 86 22 30 30 04/25/19 19:00 99.7 89 24 144/73 (96) 97 04/25/19 18:01 Mechanical Ventilator 04/25/19 18:00 93 22 135/85 (102) 94 04/25/19 18:00 Mechanical Ventilator 04/25/19 17:42 30 04/25/19 17:22 83 21 30 04/25/19 17:00 91 21 125/50 (75) 97 04/25/19 16:00 Mechanical Ventilator 04/25/19 16:00 83 20 114/54 (74) 98 04/25/19 16:00 30 04/25/19 16:00 82 04/25/19 15:29 92 22 30 04/25/19 15:00 99.5 81 16 137/59 (85) 99 04/25/19 15:00 80 21 137/59 (85) 99 04/25/19 14:00 88 22 119/65 (83) 98 04/25/19 13:15 95 18 30 04/25/19 13:00 84 17 95/55 (68) 98 04/25/19 12:50 Mechanical Ventilator 04/25/19 12:00 Mechanical Ventilator 04/25/19 12:00 100.4 90 20 105/50 (68) 98 04/25/19 12:00 30 04/25/19 12:00 78 04/25/19 11:29 98 22 30 04/25/19 11:00 94 17 111/58 (75) 96 04/25/19 10:00 95 18 116/74 (88) 97 04/25/19 09:20 102 20 30 04/25/19 09:00 100 18 127/62 (83) 98 Intake and Output 04/25/19 04/26/19 19:00 07:00 Intake Total 1080 ml 810 ml Output Total 565 ml 550 ml Balance 515 ml 260 ml Free Water 250 ml 150 ml IV Total 110 ml Tube Feeding 720 ml 660 ml Output Urine Total 565 ml 350 ml Stool Total 200 ml # Bowel Movements 4 Laboratory Tests 04/26/19 05:00: White Blood Count 12.9H, Red Blood Count 2.57L, Hemoglobin 7.1L, Hematocrit 22.8L, Mean Corpuscular Volume 89, Mean Corpuscular Hemoglobin 27.9, Mean Corpuscular Hemoglobin Concent 31.3L, Red Cell Distribution Width 14.9H, Platelet Count 179, Mean Platelet Volume 6.9, Neutrophils (%) (Auto) , Lymphocytes (%) (Auto) , Monocytes (%) (Auto) , Eosinophils (%) (Auto) , Basophils (%) (Auto) , Differential Total Cells Counted 100, Neutrophils % ( Manual) 75, Lymphocytes % (Manual) 14L, Monocytes % (Manual) 6, Eosinophils % ( Manual) 4H, Basophils % (Manual) 0, Band Neutrophils 1, Platelet Estimate Adequate, Platelet Morphology Normal, Hypochromasia 3+, Anisocytosis 1+, Sodium Level 136, Potassium Level 5.0, Chloride Level 106, Carbon Dioxide Level 22, Anion Gap 8, Blood Urea Nitrogen 52H, Creatinine 1.9H, Estimat Glomerular Filtration Rate , Glucose Level 202H, Calcium Level 8.3L, Phosphorus Level 3.3, Magnesium Level 2.1, Total Bilirubin 0.2, Aspartate Amino Transf (AST/SGOT) 36, Alanine Aminotransferase (ALT/SGPT) 11L, Alkaline Phosphatase 127H, Total Protein 6.0L, Albumin 1.1L, Globulin 4.9, Albumin/Globulin Ratio 0.2L 7/1/19 07:58: Arterial Blood pH 7.401, Arterial Blood Partial Pressure CO2 32.2L, Arterial Blood Partial Pressure O2 78.3, Arterial Blood HCO3 19.5L, Arterial Blood Oxygen Saturation 95.4, Arterial Blood Base Excess -4.6L, Marlo Test Positive Height (Feet): 5 Height (Inches): 7.00 Weight (Pounds): 190 General Appearance: lethargic EENT: normal ENT inspection Neck: normal alignment Cardiovascular: normal peripheral pulses, normal rate, regular rhythm Respiratory/Chest: chest wall non-tender, lungs clear, normal breath sounds Abdomen: normal bowel sounds, non tender, soft Extremities: normal inspection Edema: no edema noted Arm (L), no edema noted Arm (R), no edema noted Leg (L), no edema noted Leg (R), no edema noted Pedal (L), no edema noted Pedal (R), no edema noted Generalized Neurologic: motor weakness Skin: normal pigmentation, warm/dry Jama Keating DO Apr 26, 2019 08:34
--- NOTE | 2019-04-26 08:48 | NUR ---
RADIOLOGY DEPT., CHEST X-RAY DONE.-P.DYE
[2019-04-26] MEDS: Midodrine 10mg tab NG SCH ×3 (09:00→18:00)
--- NOTE | 2019-04-26 09:30 | NUR ---
NURSE NOTES: Oral care done and pt suctioned, small output of clear/white secretion noted. Pt repositioned, and is resting in no apparent distress watching TV.
[2019-04-26] MEDS ORDERED: NS 275ml ONE ×2 (10:15→10:29)
[2019-04-26] MEDS ORDERED: Tubing IV Secondary IV ONE (10:15)
[2019-04-26] MEDS ORDERED: D5 1/2NS 1000ml IV ONE (10:15)
--- NOTE | 2019-04-26 10:39 | Pulmonolgy Critical Care Note ---
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 (7) Hypertensive heart disease (8) Right hemiplegia (9) History of CVA (cerebrovascular accident) (10) CAD (coronary artery disease) Respiratory: monitor respiratory rate, adjust FIO2 Cardiac: continue to monitor HR/BP Renal: F/U I&O, keep IV fluid, check electrolytes Infectious Disease: check cultures, continue antibiotics Gastrointestinal: continue feedings/current rate Endocrine: monitor blood sugar, continue sliding scale insulin Hematologic: transfuse if hgb<8.5 Neurologic: PRN Ativan, PRN Morphine, keep patient comfortable Time Spent (Minutes): 40 Notes Reviewed: renal Discussed with: nurses, consultants, 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 - Objective Last 24 Hour Vital Signs Date Time Temp Pulse Resp B/P (MAP) Pulse Ox O2 Delivery O2 Flow Rate FiO2 04/26/19 09:15 79 16 30 04/26/19 08:00 99.2 86 19 114/64 (81) 99 04/26/19 07:06 84 19 30 04/26/19 07:00 87 21 124/71 (88) 98 04/26/19 06:04 84 20 121/62 (81) 99 04/26/19 05:06 89 16 30 30 04/26/19 05:03 78 18 118/60 (79) 99 04/26/19 04:00 98.7 79 16 114/56 (75) 98 04/26/19 04:00 30 04/26/19 04:00 78 04/26/19 04:00 Mechanical Ventilator 04/26/19 03:25 80 16 30 30 04/26/19 03:00 80 16 107/56 (73) 98 04/26/19 02:00 75 16 113/52 (72) 98 04/26/19 01:21 78 16 30 30 04/26/19 01:00 84 16 95/48 (64) 98 04/26/19 00:30 99.8 04/26/19 00:00 100.3 88 17 118/58 (78) 99 04/26/19 00:00 85 04/26/19 00:00 30 04/26/19 00:00 Mechanical Ventilator 04/25/19 23:16 80 16 30 30 04/25/19 23:00 82 16 112/62 (79) 97 04/25/19 22:00 85 19 117/61 (79) 98 04/25/19 21:10 79 16 30 30 04/25/19 21:00 80 16 117/61 (79) 98 04/25/19 20:00 85 04/25/19 20:00 83 16 139/69 (92) 99 04/25/19 20:00 30 04/25/19 20:00 Mechanical Ventilator 04/25/19 19:15 86 22 30 30 04/25/19 19:00 99.7 89 24 144/73 (96) 97 04/25/19 18:01 Mechanical Ventilator 04/25/19 18:00 93 22 135/85 (102) 94 04/25/19 18:00 Mechanical Ventilator 04/25/19 17:42 30 04/25/19 17:22 83 21 30 04/25/19 17:00 91 21 125/50 (75) 97 04/25/19 16:00 Mechanical Ventilator 04/25/19 16:00 83 20 114/54 (74) 98 04/25/19 16:00 30 04/25/19 16:00 82 04/25/19 15:29 92 22 30 04/25/19 15:00 99.5 81 16 137/59 (85) 99 04/25/19 15:00 80 21 137/59 (85) 99 04/25/19 14:00 88 22 119/65 (83) 98 04/25/19 13:15 95 18 30 04/25/19 13:00 84 17 95/55 (68) 98 04/25/19 12:50 Mechanical Ventilator 04/25/19 12:00 Mechanical Ventilator 04/25/19 12:00 100.4 90 20 105/50 (68) 98 04/25/19 12:00 30 04/25/19 12:00 78 04/25/19 11:29 98 22 30 04/25/19 11:00 94 17 111/58 (75) 96 Status: sedated Condition: critical HEENT: atraumatic Neck: full ROM Lungs: rales, rhonchi Heart: HR/BP stable Abdomen: soft, non-tender, active bowel sounds Extremities: edema Decubiti: location Micro: Microbiology Date/Time Source Procedure Growth Status 04/24/19 12:20 Blood Blood Culture - Preliminary NO GROWTH AFTER 24 HOURS Resulted 04/24/19 12:10 Blood Blood Culture - Preliminary NO GROWTH AFTER 24 HOURS Resulted 04/24/19 14:45 Stool Clostridium difficile Toxin Assay - Final Complete Accucheck: 198 Critical Care - Subjective ROS Limited/Unobtainable: Yes Condition: critical EKG Rhythm: Sinus Rhythm FI02: 30 Vent Support Breath Rate: 16 Vent Support Mode: AC Vent Tidal Volume: 500 Sputum Amount: Moderate PEEP: 5.0 PIP: 30 Tube Feeding Amount: 60 I&O: Intake and Output 04/25/19 04/26/19 19:00 07:00 Intake Total 1080 ml 870 ml Output Total 565 ml 590 ml Balance 515 ml 280 ml Free Water 250 ml 150 ml IV Total 110 ml Tube Feeding 720 ml 720 ml Output Urine Total 565 ml 390 ml Stool Total 200 ml # Bowel Movements 4 CXR: ET in good position ET-Tube: 7.5 ET Position: 23 Labs: Laboratory Tests Test 04/26/19 05:00 04/26/19 07:58 White Blood Count 12.9 K/UL (4.8-10.8) H Red Blood Count 2.57 M/UL (4.20-5.40) L Hemoglobin 7.1 G/DL (12.0-16.0) L Hematocrit 22.8 % (37.0-47.0) L Mean Corpuscular Volume 89 FL (80-99) Mean Corpuscular Hemoglobin 27.9 PG (27.0-31.0) Mean Corpuscular Hemoglobin Concent 31.3 G/DL (32.0-36.0) L Red Cell Distribution Width 14.9 % (11.6-14.8) H Platelet Count 179 K/UL (150-450) Mean Platelet Volume 6.9 FL (6.5-10.1) Neutrophils (%) (Auto) % (45.0-75.0) Lymphocytes (%) (Auto) % (20.0-45.0) Monocytes (%) (Auto) % (1.0-10.0) Eosinophils (%) (Auto) % (0.0-3.0) Basophils (%) (Auto) % (0.0-2.0) Differential Total Cells Counted 100 Neutrophils % (Manual) 75 % (45-75) Lymphocytes % (Manual) 14 % (20-45) L Monocytes % (Manual) 6 % (1-10) Eosinophils % (Manual) 4 % (0-3) H Basophils % (Manual) 0 % (0-2) Band Neutrophils 1 % (0-8) Platelet Estimate Adequate Platelet Morphology Normal Hypochromasia 3+ Anisocytosis 1+ Sodium Level 136 MMOL/L (136-145) Potassium Level 5.0 MMOL/L (3.5-5.1) Chloride Level 106 MMOL/L (98-107) Carbon Dioxide Level 22 MMOL/L (21-32) Anion Gap 8 mmol/L (5-15) Blood Urea Nitrogen 52 mg/dL (7-18) H Creatinine 1.9 MG/DL (0.55-1.30) H Estimat Glomerular Filtration Rate mL/min (>60) Glucose Level 202 MG/DL (74-106) H Calcium Level 8.3 MG/DL (8.5-10.1) L Phosphorus Level 3.3 MG/DL (2.5-4.9) Magnesium Level 2.1 MG/DL (1.8-2.4) Total Bilirubin 0.2 MG/DL (0.2-1.0) Aspartate Amino Transf (AST/SGOT) 36 U/L (15-37) Alanine Aminotransferase (ALT/SGPT) 11 U/L (12-78) L Alkaline Phosphatase 127 U/L (46-116) H Total Protein 6.0 G/DL (6.4-8.2) L Albumin 1.1 G/DL (3.4-5.0) L Globulin 4.9 g/dL Albumin/Globulin Ratio 0.2 (1.0-2.7) L Arterial Blood pH 7.401 (7.350-7.450) Arterial Blood Partial Pressure CO2 32.2 mmHg (35.0-45.0) L Arterial Blood Partial Pressure O2 78.3 mmHg (75.0-100.0) Arterial Blood HCO3 19.5 mmol/L (22.0-26.0) L Arterial Blood Oxygen Saturation 95.4 % (95-100) Arterial Blood Base Excess -4.6 (-2-2) L Marlo Test Positive Tony Springer MD Apr 26, 2019 10:39
--- NOTE | 2019-04-26 11:22 | Diagnostic Imaging Report ---
Indication: Dyspnea Technique: One view of the chest Comparison: 04/24/2019 Findings: Previously demonstrated left midlung nodule is less well-defined currently. Bilateral interstitial and airspace congestion appears slightly worse than on the prior study. Left arm PICC, endotracheal tube are again demonstrated. There is decreased blunting of the right costophrenic angle Impression: Suspect slightly increased interstitial and airspace edema, over 2 days Possibly improving small right pleural effusion
--- NOTE | 2019-04-26 11:30 | NUR ---
NURSE NOTES: Pt was seen by Dr Spivey. Order received to transfuse 1 unit of PRBC for Hgb level 7.1. Order will be processed and followed. Pt is resting in stable condition. Oral care done and pt repositioned.
--- NOTE | 2019-04-26 12:01 | GI Progress Note ---
Assessment/Plan Problems: (1) At high risk for aspiration ICD Codes: Z91.89 - Other specified personal risk factors, not elsewhere classified SNOMED: 742076829 (2) Malnutrition ICD Codes: E46 - Unspecified protein-calorie malnutrition SNOMED: 97278732 (3) Diabetes mellitus ICD Codes: E11.9 - Type 2 diabetes mellitus without complications SNOMED: 75718937 Status: stable Status Narrative Discussed with Dr. Gentile. Assessment/Plan intubated GTF fu labs The patient was seen and examined at bedside and all new and available data was reviewed in the patients chart. I agree with the above findings, impression and plan. (Patient seen earlier today. Signature stamp does not reflect patient encounter time.). - Darron Gentile MD Subjective Gastrointestinal/Abdominal: Reports: no symptoms Objective Last 24 Hour Vital Signs Date Time Temp Pulse Resp B/P (MAP) Pulse Ox O2 Delivery O2 Flow Rate FiO2 04/26/19 11:00 82 16 120/62 (81) 100 04/26/19 10:48 81 16 30 04/26/19 10:00 83 19 120/64 (82) 100 04/26/19 09:15 79 16 30 04/26/19 09:00 81 16 125/68 (87) 100 04/26/19 08:00 Mechanical Ventilator 04/26/19 08:00 99.2 86 19 114/64 (81) 99 04/26/19 08:00 30 04/26/19 07:06 84 19 30 04/26/19 07:00 87 21 124/71 (88) 98 04/26/19 06:04 84 20 121/62 (81) 99 04/26/19 05:06 89 16 30 30 04/26/19 05:03 78 18 118/60 (79) 99 04/26/19 04:00 98.7 79 16 114/56 (75) 98 04/26/19 04:00 30 04/26/19 04:00 78 04/26/19 04:00 Mechanical Ventilator 04/26/19 03:25 80 16 30 30 04/26/19 03:00 80 16 107/56 (73) 98 04/26/19 02:00 75 16 113/52 (72) 98 04/26/19 01:21 78 16 30 30 04/26/19 01:00 84 16 95/48 (64) 98 04/26/19 00:30 99.8 04/26/19 00:00 100.3 88 17 118/58 (78) 99 04/26/19 00:00 85 04/26/19 00:00 30 04/26/19 00:00 Mechanical Ventilator 04/25/19 23:16 80 16 30 30 04/25/19 23:00 82 16 112/62 (79) 97 04/25/19 22:00 85 19 117/61 (79) 98 04/25/19 21:10 79 16 30 30 04/25/19 21:00 80 16 117/61 (79) 98 04/25/19 20:00 85 04/25/19 20:00 83 16 139/69 (92) 99 04/25/19 20:00 30 04/25/19 20:00 Mechanical Ventilator 04/25/19 19:15 86 22 30 30 04/25/19 19:00 99.7 89 24 144/73 (96) 97 04/25/19 18:01 Mechanical Ventilator 04/25/19 18:00 93 22 135/85 (102) 94 04/25/19 18:00 Mechanical Ventilator 04/25/19 17:42 30 04/25/19 17:22 83 21 30 04/25/19 17:00 91 21 125/50 (75) 97 04/25/19 16:00 Mechanical Ventilator 04/25/19 16:00 83 20 114/54 (74) 98 04/25/19 16:00 30 04/25/19 16:00 82 04/25/19 15:29 92 22 30 04/25/19 15:00 99.5 81 16 137/59 (85) 99 04/25/19 15:00 80 21 137/59 (85) 99 04/25/19 14:00 88 22 119/65 (83) 98 04/25/19 13:15 95 18 30 04/25/19 13:00 84 17 95/55 (68) 98 04/25/19 12:50 Mechanical Ventilator Intake and Output 04/25/19 04/26/19 19:00 07:00 Intake Total 1080 ml 870 ml Output Total 565 ml 590 ml Balance 515 ml 280 ml Free Water 250 ml 150 ml IV Total 110 ml Tube Feeding 720 ml 720 ml Output Urine Total 565 ml 390 ml Stool Total 200 ml # Bowel Movements 4 Laboratory Tests Test 04/26/19 05:00 04/26/19 07:58 White Blood Count 12.9 K/UL (4.8-10.8) H Red Blood Count 2.57 M/UL (4.20-5.40) L Hemoglobin 7.1 G/DL (12.0-16.0) L Hematocrit 22.8 % (37.0-47.0) L Mean Corpuscular Volume 89 FL (80-99) Mean Corpuscular Hemoglobin 27.9 PG (27.0-31.0) Mean Corpuscular Hemoglobin Concent 31.3 G/DL (32.0-36.0) L Red Cell Distribution Width 14.9 % (11.6-14.8) H Platelet Count 179 K/UL (150-450) Mean Platelet Volume 6.9 FL (6.5-10.1) Neutrophils (%) (Auto) % (45.0-75.0) Lymphocytes (%) (Auto) % (20.0-45.0) Monocytes (%) (Auto) % (1.0-10.0) Eosinophils (%) (Auto) % (0.0-3.0) Basophils (%) (Auto) % (0.0-2.0) Differential Total Cells Counted 100 Neutrophils % (Manual) 75 % (45-75) Lymphocytes % (Manual) 14 % (20-45) L Monocytes % (Manual) 6 % (1-10) Eosinophils % (Manual) 4 % (0-3) H Basophils % (Manual) 0 % (0-2) Band Neutrophils 1 % (0-8) Platelet Estimate Adequate Platelet Morphology Normal Hypochromasia 3+ Anisocytosis 1+ Sodium Level 136 MMOL/L (136-145) Potassium Level 5.0 MMOL/L (3.5-5.1) Chloride Level 106 MMOL/L (98-107) Carbon Dioxide Level 22 MMOL/L (21-32) Anion Gap 8 mmol/L (5-15) Blood Urea Nitrogen 52 mg/dL (7-18) H Creatinine 1.9 MG/DL (0.55-1.30) H Estimat Glomerular Filtration Rate mL/min (>60) Glucose Level 202 MG/DL (74-106) H Calcium Level 8.3 MG/DL (8.5-10.1) L Phosphorus Level 3.3 MG/DL (2.5-4.9) Magnesium Level 2.1 MG/DL (1.8-2.4) Total Bilirubin 0.2 MG/DL (0.2-1.0) Aspartate Amino Transf (AST/SGOT) 36 U/L (15-37) Alanine Aminotransferase (ALT/SGPT) 11 U/L (12-78) L Alkaline Phosphatase 127 U/L (46-116) H Total Protein 6.0 G/DL (6.4-8.2) L Albumin 1.1 G/DL (3.4-5.0) L Globulin 4.9 g/dL Albumin/Globulin Ratio 0.2 (1.0-2.7) L Arterial Blood pH 7.401 (7.350-7.450) Arterial Blood Partial Pressure CO2 32.2 mmHg (35.0-45.0) L Arterial Blood Partial Pressure O2 78.3 mmHg (75.0-100.0) Arterial Blood HCO3 19.5 mmol/L (22.0-26.0) L Arterial Blood Oxygen Saturation 95.4 % (95-100) Arterial Blood Base Excess -4.6 (-2-2) L Marlo Test Positive Height (Feet): 5 Height (Inches): 7.00 Weight (Pounds): 190 General Appearance: WD/WN, no apparent distress, alert Cardiovascular: normal rate Respiratory/Chest: normal breath sounds, no respiratory distress Abdominal Exam: normal bowel sounds, non tender, soft, GT site - c/d/i Extremities: normal range of motion, non-tender Aron Torres NP Apr 26, 2019 12:01
--- NOTE | 2019-04-26 12:08 | Nephrology Progress Note ---
Assessment/Plan Problem List: (1) Renal failure (ARF), acute on chronic (2) Diabetic nephropathy (3) Sepsis (4) Pneumonia (5) Right hemiplegia (6) Anemia in chronic kidney disease (CKD) (7) Pulmonary hypertension Assessment intubated Renal failure; - Pre Renal - ? Underlying Renal Anemia Pneumonia / respiratory failure Sepsis elevated Troponin UTI HyperGlycemia / DM Right Esvin HTN Plan transfuse for low Hgb as needed K Phos IV as needed venofer Folate 24 H urine protein check 2.4 gram Fraga Hydrate BP and BS control urine studies slow hydrate kidney MAIKEL results noted: No [place] 2D echo Noted visualized except distal setum and inferiro wall hypokinesis Left ventricular ejection fraction estimated to be 55-60 %. avoid Nephrotoxics per orders Subjective ROS Limited/Unobtainable: Yes Objective Objective Last 24 Hour Vital Signs Date Time Temp Pulse Resp B/P (MAP) Pulse Ox O2 Delivery O2 Flow Rate FiO2 04/26/19 11:00 82 16 120/62 (81) 100 04/26/19 10:48 81 16 30 04/26/19 10:00 83 19 120/64 (82) 100 04/26/19 09:15 79 16 30 04/26/19 09:00 81 16 125/68 (87) 100 04/26/19 08:00 Mechanical Ventilator 04/26/19 08:00 99.2 86 19 114/64 (81) 99 04/26/19 08:00 30 04/26/19 07:06 84 19 30 04/26/19 07:00 87 21 124/71 (88) 98 04/26/19 06:04 84 20 121/62 (81) 99 04/26/19 05:06 89 16 30 30 04/26/19 05:03 78 18 118/60 (79) 99 04/26/19 04:00 98.7 79 16 114/56 (75) 98 04/26/19 04:00 30 04/26/19 04:00 78 04/26/19 04:00 Mechanical Ventilator 04/26/19 03:25 80 16 30 30 04/26/19 03:00 80 16 107/56 (73) 98 04/26/19 02:00 75 16 113/52 (72) 98 04/26/19 01:21 78 16 30 30 04/26/19 01:00 84 16 95/48 (64) 98 04/26/19 00:30 99.8 04/26/19 00:00 100.3 88 17 118/58 (78) 99 04/26/19 00:00 85 04/26/19 00:00 30 04/26/19 00:00 Mechanical Ventilator 04/25/19 23:16 80 16 30 30 04/25/19 23:00 82 16 112/62 (79) 97 04/25/19 22:00 85 19 117/61 (79) 98 04/25/19 21:10 79 16 30 30 04/25/19 21:00 80 16 117/61 (79) 98 04/25/19 20:00 85 04/25/19 20:00 83 16 139/69 (92) 99 04/25/19 20:00 30 04/25/19 20:00 Mechanical Ventilator 04/25/19 19:15 86 22 30 30 04/25/19 19:00 99.7 89 24 144/73 (96) 97 04/25/19 18:01 Mechanical Ventilator 04/25/19 18:00 93 22 135/85 (102) 94 04/25/19 18:00 Mechanical Ventilator 04/25/19 17:42 30 04/25/19 17:22 83 21 30 04/25/19 17:00 91 21 125/50 (75) 97 04/25/19 16:00 Mechanical Ventilator 04/25/19 16:00 83 20 114/54 (74) 98 04/25/19 16:00 30 04/25/19 16:00 82 04/25/19 15:29 92 22 30 04/25/19 15:00 99.5 81 16 137/59 (85) 99 04/25/19 15:00 80 21 137/59 (85) 99 04/25/19 14:00 88 22 119/65 (83) 98 04/25/19 13:15 95 18 30 04/25/19 13:00 84 17 95/55 (68) 98 04/25/19 12:50 Mechanical Ventilator Intake and Output 04/25/19 04/26/19 19:00 07:00 Intake Total 1080 ml 870 ml Output Total 565 ml 590 ml Balance 515 ml 280 ml Free Water 250 ml 150 ml IV Total 110 ml Tube Feeding 720 ml 720 ml Output Urine Total 565 ml 390 ml Stool Total 200 ml # Bowel Movements 4 Laboratory Tests 04/26/19 05:00: White Blood Count 12.9H, Red Blood Count 2.57L, Hemoglobin 7.1L, Hematocrit 22.8L, Mean Corpuscular Volume 89, Mean Corpuscular Hemoglobin 27.9, Mean Corpuscular Hemoglobin Concent 31.3L, Red Cell Distribution Width 14.9H, Platelet Count 179, Mean Platelet Volume 6.9, Neutrophils (%) (Auto) , Lymphocytes (%) (Auto) , Monocytes (%) (Auto) , Eosinophils (%) (Auto) , Basophils (%) (Auto) , Differential Total Cells Counted 100, Neutrophils % ( Manual) 75, Lymphocytes % (Manual) 14L, Monocytes % (Manual) 6, Eosinophils % ( Manual) 4H, Basophils % (Manual) 0, Band Neutrophils 1, Platelet Estimate Adequate, Platelet Morphology Normal, Hypochromasia 3+, Anisocytosis 1+, Sodium Level 136, Potassium Level 5.0, Chloride Level 106, Carbon Dioxide Level 22, Anion Gap 8, Blood Urea Nitrogen 52H, Creatinine 1.9H, Estimat Glomerular Filtration Rate , Glucose Level 202H, Calcium Level 8.3L, Phosphorus Level 3.3, Magnesium Level 2.1, Total Bilirubin 0.2, Aspartate Amino Transf (AST/SGOT) 36, Alanine Aminotransferase (ALT/SGPT) 11L, Alkaline Phosphatase 127H, Total Protein 6.0L, Albumin 1.1L, Globulin 4.9, Albumin/Globulin Ratio 0.2L 04/26/19 07:58: Arterial Blood pH 7.401, Arterial Blood Partial Pressure CO2 32.2L, Arterial Blood Partial Pressure O2 78.3, Arterial Blood HCO3 19.5L, Arterial Blood Oxygen Saturation 95.4, Arterial Blood Base Excess -4.6L, Marlo Test Positive Height (Feet): 5 Height (Inches): 7.00 Weight (Pounds): 190 General Appearance: no apparent distress EENT: other - vented Cardiovascular: normal rate Respiratory/Chest: decreased breath sounds Abdomen: distended Wally Spivey MD Apr 26, 2019 12:08
[2019-04-26] MEDS: Cefepime HCl 1 GM in D5W 55 ML IVPB SCH (12:47)
--- NOTE | 2019-04-26 13:30 | NUR ---
NURSE NOTES: Pt is awake, in no apparent distress, watching TV, pt's son is at bedside. VS stable. Oral care done.
--- NOTE | 2019-04-26 13:35 | Hematology/Onc Progress Note ---
Assessment/Plan Assessment/Plan ASSESSMENT AND RECOMMENDATIONS # Anemia of chronic disease due to underlying chronic medical issues, multifactorial --> Anemia workup has been ordered and reviewed. --> Ferritin 274, iron 6, tibc 143 --> No evidence of hemolysis is noted, peripheral smear has been reviewed. --> Hgb goal >7. Transfuse prn. --> Epoge three times a week sq --> Medications have been reviewed --> Stool OB positive, GI is following --> S/P egd/peg/bx on 04/22. --> Hgb trend: 9.4-->9.8-->8.6-->7.6-->7.1-->8.4-->7.6->7.1 --> Cont folic acid --> Blood tx: 04/22, 04/26 # Lung mass. First noted on CXR. --> Ct chest has been ordered and reviewed. CT reveals no mass. --> hold off on any tumor marker testing --> as per id and pulm mino, appreciate RECS # Leukocytosis/elevated white blood cell count, unspecified likely related to underlying sepsis due to pna confirmed by CT chest and CXR --> have reviewed peripheral smear and bandemia/neutrophilia noted --> continue antibiotics if they have been started by ID team --> monitor for resolution --> trend 25-->20-->15k-->16.3-->14.3-->12.1-->13.6-->13.3-->13.2-->14.7k # Respiratory distress. BiPAP per Pulmonary. # Sepsis d/t pna and uti. --> Antibiotics per Infectious Disease. # Renal failure. Nephro is following --> Appreciate recs # Elevated troponin. --> Recs per cardiology # Malnutrition. --> Dietary to follow. The time this note is entered does not reflect the time the patient was examined. I greatly appreciate the consultation. Subjective Constitutional: Denies: no symptoms, chills, fever, malaise, weakness, other HEENT: Denies: no symptoms, eye pain, blurred vision, tearing, double vision, ear pain, ear discharge, nose pain, nose congestion, throat pain, throat swelling, mouth pain, mouth swelling, other Cardiovascular: Denies: no symptoms, chest pain, edema, irregular heart rate, lightheadedness, palpitations, syncope, other Respiratory: Denies: no symptoms, cough, shortness of breath, SOB with excertion, SOB at rest, sputum, wheezing, other Gastrointestinal/Abdominal: Denies: no symptoms, abdomen distended, abdominal pain, black stools, tarry stools, blood in stool, constipated, diarrhea, difficulty swallowing, nausea, poor appetite, poor fluid intake, rectal bleeding , vomiting, other Genitourinary: Denies: no symptoms, burning, discharge, frequency, flank pain, hematuria, incontinence, pain, urgency, other Neurologic/Psychiatric: Denies: no symptoms, anxiety, depressed, emotional problems, headache, numbness, paresthesia, pre-existing deficit, seizure, tingling, tremors, weakness, other Endocrine: Denies: no symptoms, excessive sweating, flushing, intolerance to cold, intolerance to heat, increased hunger, increased thirst, increased urine, unexplained weight gain, unexplained weight loss, other Allergies: Coded Allergies: No Known Allergies (Unverified , 04/12/19) Subjective 04/15: no events reported, no f/c, on abx, seen by id, pulm, hgb remains stable 04/16: Pt resting in bed, nonverbal. No distress noted. WBC remains elevated. Plan to transfer to [facility]. 04/18: Pt in ICU. CXR yesterday shows pna. H/H stable. On BiPAP. 04/20: Pt no signs of distress. ET in place confirmed by CXR 04/21: Pt remains in icu. CXR today shows Pulmonary edema. Pleural effusion suspected bilaterally. PEG cancelled per Dr. Gentile, rescheduled for tomorrow. CBC reviewed. 04/22: Remains in ICU. S/P egd/peg/bx. Hgb at 7.1, blood tx ordered. 04/23: Remains in ICU. S/P blood tx, Hgb improved to 8.4 04/25: Remains in ICU. Pt seen and examined, Hgb at 7.6, 04/26: Remains in ICU, remains intubated, cxr has been reviewed Objective Objective Current Medications Medications (Trade) Dose Ordered Sig/Kenisha Route PRN Reason Start Time Stop Time Status Last Admin Dose Admin Acetaminophen (Tylenol) 650 mg Q4H PRN ORAL FEVER 04/17/19 12:36 05/17/19 12:35 04/25/19 23:56 Acetaminophen (Tylenol) 650 mg Q4H PRN RECTAL Fever 04/17/19 12:36 05/17/19 12:35 04/18/19 08:53 Cefepime HCl 1 gm/ Dextrose 55 ml @ 110 mls/hr Q24H IVPB 04/22/19 12:00 04/29/19 11:59 04/26/19 12:47 Chlorhexidine Gluconate (Izzy-Hex 2%) 1 applic DAILY@2000 TOPIC 04/20/19 20:00 05/20/19 19:59 04/25/19 21:01 Dextrose (Dextrose 50%) 25 ml Q30M PRN IV Hypoglycemia 04/17/19 12:45 05/12/19 19:44 Dextrose (Dextrose 50%) 50 ml Q30M PRN IV Hypoglycemia 04/17/19 12:45 05/12/19 19:44 Epoetin Bandar (Epoetin Bandar-EPBX(NON ESRD)) 10,000 unit FRI-FRI-FRI SUBQ 04/19/19 21:00 05/16/19 20:59 04/23/19 21:10 Folic Acid (Folate) 1 mg DAILY ORAL 04/26/19 09:00 05/19/19 08:59 04/26/19 09:47 Hydralazine HCl (Apresoline) 10 mg Q2H PRN IV For High Blood Pressure 04/17/19 12:36 05/17/19 12:35 Insulin Aspart (NovoLOG) Q6HR SUBQ 04/20/19 18:00 05/20/19 17:59 04/26/19 12:52 Lansoprazole (Prevacid) 30 mg DAILY GT 04/22/19 09:00 05/22/19 08:59 04/26/19 09:47 Lorazepam (Ativan 2mg/ml 1ml) 2 mg Q4H PRN IV For Anxiety 04/20/19 11:00 04/27/19 10:59 04/23/19 17:54 Midodrine (Pro-Amatine) 10 mg THREE TIMES A DAY NG 04/21/19 13:00 05/21/19 12:59 04/25/19 17:15 Morphine Sulfate (Morphine Sulfate) 4 mg Q4H PRN IVP For Pain 04/20/19 11:00 04/27/19 10:59 Ondansetron HCl (Zofran) 4 mg Q6H PRN IVP Nausea & Vomiting 04/17/19 12:37 05/17/19 12:36 Polyethylene Glycol (Miralax) 17 gm DAILYPRN PRN ORAL Constipation 04/17/19 12:37 05/17/19 12:36 04/23/19 10:31 Last 24 Hour Vital Signs Date Time Temp Pulse Resp B/P (MAP) Pulse Ox O2 Delivery O2 Flow Rate FiO2 04/26/19 13:12 84 18 30 04/26/19 13:00 88 18 113/63 (80) 100 04/26/19 12:00 99.3 84 19 120/66 (84) 100 04/26/19 12:00 Mechanical Ventilator 04/26/19 12:00 30 04/26/19 11:00 82 16 120/62 (81) 100 04/26/19 10:48 81 16 30 04/26/19 10:00 83 19 120/64 (82) 100 04/26/19 09:15 79 16 30 04/26/19 09:00 81 16 125/68 (87) 100 04/26/19 08:00 Mechanical Ventilator 04/26/19 08:00 99.2 86 19 114/64 (81) 99 04/26/19 08:00 30 04/26/19 07:06 84 19 30 04/26/19 07:00 87 21 124/71 (88) 98 04/26/19 06:04 84 20 121/62 (81) 99 04/26/19 05:06 89 16 30 30 04/26/19 05:03 78 18 118/60 (79) 99 04/26/19 04:00 98.7 79 16 114/56 (75) 98 04/26/19 04:00 30 04/26/19 04:00 78 04/26/19 04:00 Mechanical Ventilator 04/26/19 03:25 80 16 30 30 04/26/19 03:00 80 16 107/56 (73) 98 04/26/19 02:00 75 16 113/52 (72) 98 7/1/19 01:21 78 16 30 30 04/26/19 01:00 84 16 95/48 (64) 98 04/26/19 00:30 99.8 04/26/19 00:00 100.3 88 17 118/58 (78) 99 04/26/19 00:00 85 04/26/19 00:00 30 04/26/19 00:00 Mechanical Ventilator 04/25/19 23:16 80 16 30 30 04/25/19 23:00 82 16 112/62 (79) 97 04/25/19 22:00 85 19 117/61 (79) 98 04/25/19 21:10 79 16 30 30 04/25/19 21:00 80 16 117/61 (79) 98 04/25/19 20:00 85 04/25/19 20:00 83 16 139/69 (92) 99 04/25/19 20:00 30 04/25/19 20:00 Mechanical Ventilator 04/25/19 19:15 86 22 30 30 04/25/19 19:00 99.7 89 24 144/73 (96) 97 04/25/19 18:01 Mechanical Ventilator 04/25/19 18:00 93 22 135/85 (102) 94 04/25/19 18:00 Mechanical Ventilator 04/25/19 17:42 30 04/25/19 17:22 83 21 30 04/25/19 17:00 91 21 125/50 (75) 97 04/25/19 16:00 Mechanical Ventilator 04/25/19 16:00 83 20 114/54 (74) 98 04/25/19 16:00 30 04/25/19 16:00 82 04/25/19 15:29 92 22 30 04/25/19 15:00 99.5 81 16 137/59 (85) 99 04/25/19 15:00 80 21 137/59 (85) 99 04/25/19 14:00 88 22 119/65 (83) 98 04/25/19 13:15 95 18 30 04/25/19 13:00 84 17 95/55 (68) 98 04/25/19 12:50 Mechanical Ventilator 04/25/19 12:00 Mechanical Ventilator 04/25/19 12:00 100.4 90 20 105/50 (68) 98 04/25/19 12:00 30 04/25/19 12:00 78 04/25/19 11:29 98 22 30 04/25/19 11:00 94 17 111/58 (75) 96 04/25/19 10:00 95 18 116/74 (88) 97 04/25/19 09:20 102 20 30 04/25/19 09:00 100 18 127/62 (83) 98 04/25/19 08:00 101 04/25/19 08:00 30 04/25/19 08:00 98.3 102 17 93/50 (64) 98 04/25/19 08:00 Mechanical Ventilator 04/25/19 07:00 102 21 129/69 (89) 100 04/25/19 06:46 106 22 30 04/25/19 06:00 108 20 112/65 (81) 97 04/25/19 05:12 114 20 30 04/25/19 05:00 109 19 141/77 (98) 99 04/25/19 04:00 102 04/25/19 04:00 100.1 101 20 129/75 (93) 99 04/25/19 04:00 Mechanical Ventilator 04/25/19 04:00 30 04/25/19 03:06 107 21 30 04/25/19 03:00 105 21 124/68 (86) 96 04/25/19 02:00 106 22 131/67 (88) 97 04/25/19 01:10 110 23 30 04/25/19 01:00 108 23 125/65 (85) 98 04/25/19 00:00 103 04/25/19 00:00 30 04/25/19 00:00 100.3 106 21 130/65 (86) 99 04/25/19 00:00 Mechanical Ventilator 04/24/19 23:05 105 20 30 04/24/19 23:00 107 18 136/70 (92) 99 04/24/19 22:00 97 21 146/69 (94) 99 04/24/19 21:00 95 23 153/59 (90) 97 04/24/19 20:58 91 17 30 04/24/19 20:00 30 04/24/19 20:00 Mechanical Ventilator 04/24/19 20:00 100.3 97 23 140/71 (94) 98 04/24/19 20:00 96 04/24/19 19:00 98 21 138/73 (94) 98 04/24/19 18:52 96 22 30 04/24/19 18:00 101 16 127/68 (87) 98 04/24/19 17:18 101 21 30 04/24/19 17:00 110 21 125/70 (88) 98 04/24/19 16:44 97 04/24/19 16:00 Mechanical Ventilator 04/24/19 16:00 30 04/24/19 16:00 99.0 93 16 104/63 (77) 98 04/24/19 15:09 102 16 30 04/24/19 15:00 106 19 111/60 (77) 97 04/24/19 14:00 112 19 128/72 (90) 96 Intake and Output 04/25/19 04/26/19 19:00 07:00 Intake Total 1080 ml 870 ml Output Total 565 ml 590 ml Balance 515 ml 280 ml Free Water 250 ml 150 ml IV Total 110 ml Tube Feeding 720 ml 720 ml Output Urine Total 565 ml 390 ml Stool Total 200 ml # Bowel Movements 4 Labs Test 04/24/19 05:10 04/24/19 08:18 04/25/19 04:30 04/26/19 05:00 White Blood Count 15.9 K/UL (4.8-10.8) 14.7 K/UL (4.8-10.8) 12.9 K/UL (4.8-10.8) Red Blood Count 3.04 M/UL (4.20-5.40) 2.68 M/UL (4.20-5.40) 2.57 M/UL (4.20-5.40) Hemoglobin 8.4 G/DL (12.0-16.0) 7.6 G/DL (12.0-16.0) 7.1 G/DL (12.0-16.0) Hematocrit 27.0 % (37.0-47.0) 23.7 % (37.0-47.0) 22.8 % (37.0-47.0) Mean Corpuscular Volume 89 FL (80-99) 88 FL (80-99) 89 FL (80-99) Mean Corpuscular Hemoglobin 27.7 PG (27.0-31.0) 28.2 PG (27.0-31.0) 27.9 PG (27.0-31.0) Mean Corpuscular Hemoglobin Concent 31.2 G/DL (32.0-36.0) 32.0 G/DL (32.0-36.0) 31.3 G/DL (32.0-36.0) Red Cell Distribution Width 15.4 % (11.6-14.8) 14.9 % (11.6-14.8) 14.9 % (11.6-14.8) Platelet Count 152 K/UL (150-450) 159 K/UL (150-450) 179 K/UL (150-450) Mean Platelet Volume 6.8 FL (6.5-10.1) 7.1 FL (6.5-10.1) 6.9 FL (6.5-10.1) Neutrophils (%) (Auto) 79.4 % (45.0-75.0) % (45.0-75.0) % (45.0-75.0) Lymphocytes (%) (Auto) 13.8 % (20.0-45.0) % (20.0-45.0) % (20.0-45.0) Monocytes (%) (Auto) 5.3 % (1.0-10.0) % (1.0-10.0) % (1.0-10.0) Eosinophils (%) (Auto) 1.1 % (0.0-3.0) % (0.0-3.0) % (0.0-3.0) Basophils (%) (Auto) 0.4 % (0.0-2.0) % (0.0-2.0) % (0.0-2.0) Sodium Level 134 MMOL/L (136-145) 136 MMOL/L (136-145) 136 MMOL/L (136-145) Potassium Level 4.5 MMOL/L (3.5-5.1) 4.8 MMOL/L (3.5-5.1) 5.0 MMOL/L (3.5-5.1) Chloride Level 105 MMOL/L (98-107) 105 MMOL/L (98-107) 106 MMOL/L (98-107) Carbon Dioxide Level 20 MMOL/L (21-32) 21 MMOL/L (21-32) 22 MMOL/L (21-32) Anion Gap 9 mmol/L (5-15) 10 mmol/L (5-15) 8 mmol/L (5-15) Blood Urea Nitrogen 39 mg/dL (7-18) 45 mg/dL (7-18) 52 mg/dL (7-18) Creatinine 1.8 MG/DL (0.55-1.30) 1.8 MG/DL (0.55-1.30) 1.9 MG/DL (0.55-1.30) Estimat Glomerular Filtration Rate mL/min (>60) mL/min (>60) mL/min (>60) Glucose Level 161 MG/DL (74-106) 175 MG/DL (74-106) 202 MG/DL (74-106) Calcium Level 8.0 MG/DL (8.5-10.1) 8.2 MG/DL (8.5-10.1) 8.3 MG/DL (8.5-10.1) Phosphorus Level 3.0 MG/DL (2.5-4.9) 2.6 MG/DL (2.5-4.9) 3.3 MG/DL (2.5-4.9) Magnesium Level 2.1 MG/DL (1.8-2.4) 2.0 MG/DL (1.8-2.4) 2.1 MG/DL (1.8-2.4) Total Bilirubin 0.3 MG/DL (0.2-1.0) 0.3 MG/DL (0.2-1.0) 0.2 MG/DL (0.2-1.0) Aspartate Amino Transf (AST/SGOT) 29 U/L (15-37) 34 U/L (15-37) 36 U/L (15-37) Alanine Aminotransferase (ALT/SGPT) 11 U/L (12-78) 11 U/L (12-78) 11 U/L (12-78) Alkaline Phosphatase 123 U/L (46-116) 133 U/L (46-116) 127 U/L (46-116) Total Protein 6.0 G/DL (6.4-8.2) 6.1 G/DL (6.4-8.2) 6.0 G/DL (6.4-8.2) Albumin 1.2 G/DL (3.4-5.0) 1.1 G/DL (3.4-5.0) 1.1 G/DL (3.4-5.0) Globulin 4.8 g/dL 5.0 g/dL 4.9 g/dL Albumin/Globulin Ratio 0.2 (1.0-2.7) 0.2 (1.0-2.7) 0.2 (1.0-2.7) Arterial Blood pH 7.386 (7.350-7.450) Arterial Blood Partial Pressure CO2 30.9 mmHg (35.0-45.0) Arterial Blood Partial Pressure O2 101.6 mmHg (75.0-100.0) Arterial Blood HCO3 18.1 mmol/L (22.0-26.0) Arterial Blood Oxygen Saturation 97.3 % (95-100) Arterial Blood Base Excess -6.1 (-2-2) Marlo Test Positive Differential Total Cells Counted 100 100 Neutrophils % (Manual) 77 % (45-75) 75 % (45-75) Lymphocytes % (Manual) 13 % (20-45) 14 % (20-45) Monocytes % (Manual) 9 % (1-10) 6 % (1-10) Eosinophils % (Manual) 1 % (0-3) 4 % (0-3) Basophils % (Manual) 0 % (0-2) 0 % (0-2) Band Neutrophils 0 % (0-8) 1 % (0-8) Platelet Estimate Adequate Adequate Platelet Morphology Normal Normal Hypochromasia 1+ 3+ Anisocytosis 1+ 1+ Folate 19.9 NG/ML (8.6-58.9) Test 04/26/19 07:58 Arterial Blood pH 7.401 (7.350-7.450) Arterial Blood Partial Pressure CO2 32.2 mmHg (35.0-45.0) Arterial Blood Partial Pressure O2 78.3 mmHg (75.0-100.0) Arterial Blood HCO3 19.5 mmol/L (22.0-26.0) Arterial Blood Oxygen Saturation 95.4 % (95-100) Arterial Blood Base Excess -4.6 (-2-2) Marlo Test Positive Height (Feet): 5 Height (Inches): 7.00 Weight (Pounds): 190 Objective PHYSICAL EXAMINATION: GENERAL: BiPAP in place, sleeping in bed, slight short of breath. VITAL SIGNS: Have been reviewed CARDIOVASCULAR: No murmur. LUNGS: Poor exchange. TRACH++ ABDOMEN: Bowel sounds distant. EXTREMITIES: No cyanosis, clubbing, or edema. NEUROLOGIC: Patient is flaccid in bed, probably sedated. Steven Norton MD Apr 26, 2019 13:35
--- NOTE | 2019-04-26 13:35 | Infectious Diseases Prog Note ---
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 PNA Pulmonary edema -04/26 CXR: Suspect slightly increased interstitial and airspace edema, over 2 days.Possibly improving small right pleural effusion -04/19 CXR: There is less pulmonary edema compared to yesterday but with moderate residual edema. -04/16 CXR: . Right perihilar and bilateral lower lobe pulmonary consolidation concerning for pneumonia.Small bilateral pleural effusions. CXR - B/L Infiltrates Low grade fevers; ongoing WBCs up to 25; improving -04/24 Cdiff eng 04/16 Sp Cx - C. alb; 04/19 spC. albicans (colonizer) -BCx NTD -legionella ag urine neg Widened mediastinum - right sided aortic arch CXR - Apparent upper mediastinal widening. Possibly due to ectatic vasculature and body habitus, but upper mediastinal mass also possible. Correlate with any prior adiographs and may be available, consider CT for further evaluation if clinically indicated CT 04/13/19 - Right-sided aortic arch, presumably accounting for the apparent upper mediastinal widening demonstrated on recent plain radiograph. No evidence of upper mediastinal mass. Extensive bilateral lower lobe consolidation , likely pneumonia, less extensive left upper lobe consolidation. 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 We will continue to follow the patient during this hospitalization. Subjective Allergies: Coded Allergies: No Known Allergies (Unverified , 04/12/19) Subjective Tm 100.3 wbc improving Bcx NTD Objective Vital Signs Last 24 Hour Vital Signs Date Time Temp Pulse Resp B/P (MAP) Pulse Ox O2 Delivery O2 Flow Rate FiO2 04/26/19 13:12 84 18 30 04/26/19 13:00 88 18 113/63 (80) 100 04/26/19 12:00 99.3 84 19 120/66 (84) 100 04/26/19 11:00 82 16 120/62 (81) 100 04/26/19 10:48 81 16 30 04/26/19 10:00 83 19 120/64 (82) 100 04/26/19 09:15 79 16 30 04/26/19 09:00 81 16 125/68 (87) 100 04/26/19 08:00 Mechanical Ventilator 04/26/19 08:00 99.2 86 19 114/64 (81) 99 04/26/19 08:00 30 04/26/19 07:06 84 19 30 04/26/19 07:00 87 21 124/71 (88) 98 04/26/19 06:04 84 20 121/62 (81) 99 04/26/19 05:06 89 16 30 30 04/26/19 05:03 78 18 118/60 (79) 99 04/26/19 04:00 98.7 79 16 114/56 (75) 98 04/26/19 04:00 30 04/26/19 04:00 78 04/26/19 04:00 Mechanical Ventilator 04/26/19 03:25 80 16 30 30 04/26/19 03:00 80 16 107/56 (73) 98 04/26/19 02:00 75 16 113/52 (72) 98 04/26/19 01:21 78 16 30 30 04/26/19 01:00 84 16 95/48 (64) 98 04/26/19 00:30 99.8 04/26/19 00:00 100.3 88 17 118/58 (78) 99 04/26/19 00:00 85 04/26/19 00:00 30 04/26/19 00:00 Mechanical Ventilator 04/25/19 23:16 80 16 30 30 04/25/19 23:00 82 16 112/62 (79) 97 04/25/19 22:00 85 19 117/61 (79) 98 04/25/19 21:10 79 16 30 30 04/25/19 21:00 80 16 117/61 (79) 98 04/25/19 20:00 85 04/25/19 20:00 83 16 139/69 (92) 99 04/25/19 20:00 30 04/25/19 20:00 Mechanical Ventilator 04/25/19 19:15 86 22 30 30 04/25/19 19:00 99.7 89 24 144/73 (96) 97 04/25/19 18:01 Mechanical Ventilator 04/25/19 18:00 93 22 135/85 (102) 94 04/25/19 18:00 Mechanical Ventilator 04/25/19 17:42 30 04/25/19 17:22 83 21 30 04/25/19 17:00 91 21 125/50 (75) 97 04/25/19 16:00 Mechanical Ventilator 04/25/19 16:00 83 20 114/54 (74) 98 04/25/19 16:00 30 04/25/19 16:00 82 04/25/19 15:29 92 22 30 04/25/19 15:00 99.5 81 16 137/59 (85) 99 04/25/19 15:00 80 21 137/59 (85) 99 04/25/19 14:00 88 22 119/65 (83) 98 Height (Feet): 5 Height (Inches): 7.00 Weight (Pounds): 190 Objective Gen: Awake and talking HEENT: NCAT, MMM, EOMI LUNGS: CTAB, No W CARDS: RRR, S1, S2, No M/R/G, ABD: Soft, NT, ND Microbiology Date/Time Source Procedure Growth Status 04/24/19 12:20 Blood Blood Culture - Preliminary NO GROWTH AFTER 24 HOURS Resulted 04/24/19 12:10 Blood Blood Culture - Preliminary NO GROWTH AFTER 24 HOURS Resulted 04/24/19 14:45 Stool Clostridium difficile Toxin Assay - Final Complete Laboratory Tests Test 04/26/19 05:00 04/26/19 07:58 White Blood Count 12.9 K/UL (4.8-10.8) H Red Blood Count 2.57 M/UL (4.20-5.40) L Hemoglobin 7.1 G/DL (12.0-16.0) L Hematocrit 22.8 % (37.0-47.0) L Mean Corpuscular Volume 89 FL (80-99) Mean Corpuscular Hemoglobin 27.9 PG (27.0-31.0) Mean Corpuscular Hemoglobin Concent 31.3 G/DL (32.0-36.0) L Red Cell Distribution Width 14.9 % (11.6-14.8) H Platelet Count 179 K/UL (150-450) Mean Platelet Volume 6.9 FL (6.5-10.1) Neutrophils (%) (Auto) % (45.0-75.0) Lymphocytes (%) (Auto) % (20.0-45.0) Monocytes (%) (Auto) % (1.0-10.0) Eosinophils (%) (Auto) % (0.0-3.0) Basophils (%) (Auto) % (0.0-2.0) Differential Total Cells Counted 100 Neutrophils % (Manual) 75 % (45-75) Lymphocytes % (Manual) 14 % (20-45) L Monocytes % (Manual) 6 % (1-10) Eosinophils % (Manual) 4 % (0-3) H Basophils % (Manual) 0 % (0-2) Band Neutrophils 1 % (0-8) Platelet Estimate Adequate Platelet Morphology Normal Hypochromasia 3+ Anisocytosis 1+ Sodium Level 136 MMOL/L (136-145) Potassium Level 5.0 MMOL/L (3.5-5.1) Chloride Level 106 MMOL/L (98-107) Carbon Dioxide Level 22 MMOL/L (21-32) Anion Gap 8 mmol/L (5-15) Blood Urea Nitrogen 52 mg/dL (7-18) H Creatinine 1.9 MG/DL (0.55-1.30) H Estimat Glomerular Filtration Rate mL/min (>60) Glucose Level 202 MG/DL (74-106) H Calcium Level 8.3 MG/DL (8.5-10.1) L Phosphorus Level 3.3 MG/DL (2.5-4.9) Magnesium Level 2.1 MG/DL (1.8-2.4) Total Bilirubin 0.2 MG/DL (0.2-1.0) Aspartate Amino Transf (AST/SGOT) 36 U/L (15-37) Alanine Aminotransferase (ALT/SGPT) 11 U/L (12-78) L Alkaline Phosphatase 127 U/L (46-116) H Total Protein 6.0 G/DL (6.4-8.2) L Albumin 1.1 G/DL (3.4-5.0) L Globulin 4.9 g/dL Albumin/Globulin Ratio 0.2 (1.0-2.7) L Arterial Blood pH 7.401 (7.350-7.450) Arterial Blood Partial Pressure CO2 32.2 mmHg (35.0-45.0) L Arterial Blood Partial Pressure O2 78.3 mmHg (75.0-100.0) Arterial Blood HCO3 19.5 mmol/L (22.0-26.0) L Arterial Blood Oxygen Saturation 95.4 % (95-100) Arterial Blood Base Excess -4.6 (-2-2) L Marlo Test Positive Current Medications Medications (Trade) Dose Ordered Sig/Kenisha Route PRN Reason Start Time Stop Time Status Last Admin Dose Admin Acetaminophen (Tylenol) 650 mg Q4H PRN ORAL FEVER 04/17/19 12:36 05/17/19 12:35 04/25/19 23:56 Acetaminophen (Tylenol) 650 mg Q4H PRN RECTAL Fever 04/17/19 12:36 05/17/19 12:35 04/18/19 08:53 Cefepime HCl 1 gm/ Dextrose 55 ml @ 110 mls/hr Q24H IVPB 04/22/19 12:00 04/29/19 11:59 04/26/19 12:47 Chlorhexidine Gluconate (Izzy-Hex 2%) 1 applic DAILY@2000 TOPIC 04/20/19 20:00 05/20/19 19:59 04/25/19 21:01 Dextrose (Dextrose 50%) 25 ml Q30M PRN IV Hypoglycemia 04/17/19 12:45 05/12/19 19:44 Dextrose (Dextrose 50%) 50 ml Q30M PRN IV Hypoglycemia 04/17/19 12:45 05/12/19 19:44 Epoetin Bnadar (Epoetin Bandar-EPBX(NON ESRD)) 10,000 unit FRI-FRI-FRI SUBQ 04/19/19 21:00 05/16/19 20:59 04/23/19 21:10 Folic Acid (Folate) 1 mg DAILY ORAL 04/26/19 09:00 05/19/19 08:59 04/26/19 09:47 Hydralazine HCl (Apresoline) 10 mg Q2H PRN IV For High Blood Pressure 04/17/19 12:36 05/17/19 12:35 Insulin Aspart (NovoLOG) Q6HR SUBQ 04/20/19 18:00 05/20/19 17:59 04/26/19 12:52 Lansoprazole (Prevacid) 30 mg DAILY GT 04/22/19 09:00 05/22/19 08:59 04/26/19 09:47 Lorazepam (Ativan 2mg/ml 1ml) 2 mg Q4H PRN IV For Anxiety 04/20/19 11:00 04/27/19 10:59 04/23/19 17:54 Midodrine (Pro-Amatine) 10 mg THREE TIMES A DAY NG 04/21/19 13:00 05/21/19 12:59 04/25/19 17:15 Morphine Sulfate (Morphine Sulfate) 4 mg Q4H PRN IVP For Pain 04/20/19 11:00 04/27/19 10:59 Ondansetron HCl (Zofran) 4 mg Q6H PRN IVP Nausea & Vomiting 04/17/19 12:37 05/17/19 12:36 Polyethylene Glycol (Miralax) 17 gm DAILYPRN PRN ORAL Constipation 04/17/19 12:37 05/17/19 12:36 04/23/19 10:31 Cora Baer M.D. Apr 26, 2019 13:35
--- NOTE | 2019-04-26 15:13 | Cardiac Electrophysiology PN ---
Assessment/Plan Assessment/Plan 1. Atrial flutter, self terminated. Off AVN jose for low BP 2. Hypotension. On Midodrine 10 tid 3. Coronary artery disease. On Plavix 75 mg daily 4. Respiratory failure, intubated EF 60% 5. Sepsis. White count 25,000. On IV abx improved to 13K 6. Anemia.S/P PRBC. Another PRBC pending today 7. Renal failure BUN/Cr improved to 38/1.[address] Spivey 8. Dysphagia. S/P PEG 04/22/19 9. History of CVA with hemiplegia. 10. Nonverbal status. 11. Full code DW RN Subjective Subjective Intubated in ICU.S/P PEG. Off pressors. Scheduled for PRBC today for Hb 7.1 Objective Last 24 Hour Vital Signs Date Time Temp Pulse Resp B/P (MAP) Pulse Ox O2 Delivery O2 Flow Rate FiO2 04/26/19 14:00 89 21 118/66 (83) 100 04/26/19 13:12 84 18 30 04/26/19 13:00 88 18 113/63 (80) 100 04/26/19 12:00 99.3 84 19 120/66 (84) 100 04/26/19 12:00 Mechanical Ventilator 04/26/19 12:00 87 04/26/19 12:00 30 04/26/19 11:00 82 16 120/62 (81) 100 04/26/19 10:48 81 16 30 04/26/19 10:00 83 19 120/64 (82) 100 04/26/19 09:15 79 16 30 04/26/19 09:00 81 16 125/68 (87) 100 04/26/19 08:00 Mechanical Ventilator 04/26/19 08:00 99.2 86 19 114/64 (81) 99 04/26/19 08:00 84 04/26/19 08:00 30 04/26/19 07:06 84 19 30 04/26/19 07:00 87 21 124/71 (88) 98 04/26/19 06:04 84 20 121/62 (81) 99 04/26/19 05:06 89 16 30 30 04/26/19 05:03 78 18 118/60 (79) 99 04/26/19 04:00 98.7 79 16 114/56 (75) 98 04/26/19 04:00 30 04/26/19 04:00 78 04/26/19 04:00 Mechanical Ventilator 04/26/19 03:25 80 16 30 30 04/26/19 03:00 80 16 107/56 (73) 98 04/26/19 02:00 75 16 113/52 (72) 98 04/26/19 01:21 78 16 30 30 04/26/19 01:00 84 16 95/48 (64) 98 04/26/19 00:30 99.8 04/26/19 00:00 100.3 88 17 118/58 (78) 99 04/26/19 00:00 85 04/26/19 00:00 30 04/26/19 00:00 Mechanical Ventilator 04/25/19 23:16 80 16 30 30 04/25/19 23:00 82 16 112/62 (79) 97 04/25/19 22:00 85 19 117/61 (79) 98 04/25/19 21:10 79 16 30 30 04/25/19 21:00 80 16 117/61 (79) 98 04/25/19 20:00 85 04/25/19 20:00 83 16 139/69 (92) 99 04/25/19 20:00 30 04/25/19 20:00 Mechanical Ventilator 04/25/19 19:15 86 22 30 30 04/25/19 19:00 99.7 89 24 144/73 (96) 97 04/25/19 18:01 Mechanical Ventilator 04/25/19 18:00 93 22 135/85 (102) 94 04/25/19 18:00 Mechanical Ventilator 04/25/19 17:42 30 04/25/19 17:22 83 21 30 04/25/19 17:00 91 21 125/50 (75) 97 04/25/19 16:00 Mechanical Ventilator 04/25/19 16:00 83 20 114/54 (74) 98 04/25/19 16:00 30 04/25/19 16:00 82 04/25/19 15:29 92 22 30 Intake and Output 04/25/19 04/26/19 19:00 07:00 Intake Total 1080 ml 870 ml Output Total 565 ml 590 ml Balance 515 ml 280 ml Free Water 250 ml 150 ml IV Total 110 ml Tube Feeding 720 ml 720 ml Output Urine Total 565 ml 390 ml Stool Total 200 ml # Bowel Movements 4 Laboratory Tests Test 04/26/19 05:00 04/26/19 07:58 White Blood Count 12.9 K/UL (4.8-10.8) H Red Blood Count 2.57 M/UL (4.20-5.40) L Hemoglobin 7.1 G/DL (12.0-16.0) L Hematocrit 22.8 % (37.0-47.0) L Mean Corpuscular Volume 89 FL (80-99) Mean Corpuscular Hemoglobin 27.9 PG (27.0-31.0) Mean Corpuscular Hemoglobin Concent 31.3 G/DL (32.0-36.0) L Red Cell Distribution Width 14.9 % (11.6-14.8) H Platelet Count 179 K/UL (150-450) Mean Platelet Volume 6.9 FL (6.5-10.1) Neutrophils (%) (Auto) % (45.0-75.0) Lymphocytes (%) (Auto) % (20.0-45.0) Monocytes (%) (Auto) % (1.0-10.0) Eosinophils (%) (Auto) % (0.0-3.0) Basophils (%) (Auto) % (0.0-2.0) Differential Total Cells Counted 100 Neutrophils % (Manual) 75 % (45-75) Lymphocytes % (Manual) 14 % (20-45) L Monocytes % (Manual) 6 % (1-10) Eosinophils % (Manual) 4 % (0-3) H Basophils % (Manual) 0 % (0-2) Band Neutrophils 1 % (0-8) Platelet Estimate Adequate Platelet Morphology Normal Hypochromasia 3+ Anisocytosis 1+ Sodium Level 136 MMOL/L (136-145) Potassium Level 5.0 MMOL/L (3.5-5.1) Chloride Level 106 MMOL/L (98-107) Carbon Dioxide Level 22 MMOL/L (21-32) Anion Gap 8 mmol/L (5-15) Blood Urea Nitrogen 52 mg/dL (7-18) H Creatinine 1.9 MG/DL (0.55-1.30) H Estimat Glomerular Filtration Rate mL/min (>60) Glucose Level 202 MG/DL (74-106) H Calcium Level 8.3 MG/DL (8.5-10.1) L Phosphorus Level 3.3 MG/DL (2.5-4.9) Magnesium Level 2.1 MG/DL (1.8-2.4) Total Bilirubin 0.2 MG/DL (0.2-1.0) Aspartate Amino Transf (AST/SGOT) 36 U/L (15-37) Alanine Aminotransferase (ALT/SGPT) 11 U/L (12-78) L Alkaline Phosphatase 127 U/L (46-116) H Total Protein 6.0 G/DL (6.4-8.2) L Albumin 1.1 G/DL (3.4-5.0) L Globulin 4.9 g/dL Albumin/Globulin Ratio 0.2 (1.0-2.7) L Arterial Blood pH 7.401 (7.350-7.450) Arterial Blood Partial Pressure CO2 32.2 mmHg (35.0-45.0) L Arterial Blood Partial Pressure O2 78.3 mmHg (75.0-100.0) Arterial Blood HCO3 19.5 mmol/L (22.0-26.0) L Arterial Blood Oxygen Saturation 95.4 % (95-100) Arterial Blood Base Excess -4.6 (-2-2) L Marlo Test Positive Microbiology Date/Time Source Procedure Growth Status 04/24/19 12:20 Blood Blood Culture - Preliminary NO GROWTH AFTER 24 HOURS Resulted 04/24/19 12:10 Blood Blood Culture - Preliminary NO GROWTH AFTER 24 HOURS Resulted 04/24/19 14:45 Stool Clostridium difficile Toxin Assay - Final Complete Objective HEAD AND NECK: No JVD. Orally intubated LUNGS: Coarse rhonchi bilaterally. CARDIOVASCULAR: Regular S1 and S2 with no gallop. ABDOMEN: Soft.PEG in place EXTREMITIES: No pitting edema. Claude Pena MD Apr 26, 2019 15:13
--- NOTE | 2019-04-26 16:15 | Progress Note ---
DATE: 04/26/2019 SUBJECTIVE: She is a 79-year-old female patient with sepsis, but she has altered mental status and confusion, worsened by stress of her medical illness. MENTAL STATUS EXAMINATION: This is a 79-year-old female patient. Appearance is disheveled. Attitude, irritable and agitated. Affect, guarded and restricted. Intellect is poor. Mood, depressed and anxious. Motor activity, psychomotor agitation. Attention span is poor. Orientation x2. Speech is pressured. Thought process is disorganized and illogical. Insight and judgment is poor. DIAGNOSIS: Major depressive disorder, mild, recurrent with psychotic features, rule out dementia with psychosis. PLAN: Treat her with Ativan 2 mg IV q.4 h. p.r.n. anxiety and agitation. Provided with 20 minutes of reality-based supportive psychotherapy and encouraged to interact appropriately with staff. She is still very confused and disorganized in the ICU. So, continue to monitor the patient's altered mental status. We will continue working with this patient to try to prevent any further decline in cognition. Chart reviewed. Discussed with staff. The patient is seen and assessed in her room. Omar Glover M.D. DR: RELL JOB#: [id number] CC:
--- NOTE | 2019-04-26 16:30 | NUR ---
NURSE NOTES: Blood transfusion was started as ordered by Dr Spivey. 1 unit of PRBC is being infused. VS stable. Pt is tolerating well with no adverse reactions noted. Will continue to monitor.
--- NOTE | 2019-04-26 16:55 | NUR ---
RESEARCH METHODOLOGISTINTERNATIONAL AFFAIRS VICE PRESIDENT SI:RESPIRATORY FAILURE VS: BP 95/48, P 80, T 99.4, RR 21, SpO2 100 on VENT WBC 12.9, RBC 2.57, H&H 7.1/22.8, BUN 52, CR 1.9 CXR: Suspect slightly increased interstitial and airspace edema, over 2 days IS;NOVOLOG SUBQ CEFEPIME 55ml IVPB PREVACID 30mg FOLATE 1mg ICU STATUS
--- NOTE | 2019-04-26 18:30 | NUR ---
NURSE NOTES: Blood transfusion is complete. VS stable. Pt tolerated well with no adverse reactions noted. Pt was cleaned, oral care done, pt repositioned with bilateral extremities elevated on pillows.
--- NOTE | 2019-04-26 19:30 | NUR ---
HAND-OFF: Report given to Delia BURNETT. VS stable. Endorsed plan of care.
--- NOTE | 2019-04-26 19:30 | NUR ---
NURSE NOTES:Received pt Orally intubated on ac mode SR on the monitor, Bp stable, afebrile. Pt with Rt sude weakness, left arm strong with soft wrist restraints, maintained for safetyto avoid self extubation. Pt with good eye contact, but doesnt follow any commands. Tolerated GT fdg Glucerna 1.2 at 60ml/hr. Tolerating well, no residuals., Rectal tube to gravity with moderate amt of dark brownish stools. Pt with Skin tear RT buttocks , on p200 mattress. Turned q 2hrs prn with good skin care done., Will continue to monitor.
[2019-04-26] MEDS: Dyna-Hex 2% Top Sol 2oz TOPIC SCH (20:12)
[2019-04-26] MEDS ORDERED: Epogen (for non ESRD use) SUBQ SCH (21:00)
--- NOTE | 2019-04-26 21:30 | NUR ---
NURSE NOTES:Suctioned tn tk beige secretions Oral care done. Turned to sides for comfort and to avoid further skin breakdown.
--- NOTE | 2019-04-26 23:30 | NUR ---
NURSE NOTES:Neuro unchanged, Left soft wrist restrained maintained for safety.
--- NOTE | 2019-04-26 23:51 | Neurology Progress Note ---
Interim History Interim History ROS Limited/Unobtainable: Yes Complaints: AMS Events: Weaning attempts unsuccessful, PEG placed/awaiting Trach Interim History This visit was performed on April 26, [address] Geo Espitia Objective Physical Exam Last Vital Signs Date Time Temp Pulse Resp B/P (MAP) Pulse Ox O2 Delivery O2 Flow Rate FiO2 04/26/19 23:15 90 20 30 04/26/19 23:00 126/69 (88) 98 04/26/19 20:00 99.9 04/26/19 20:00 Mechanical Ventilator Laboratory Tests Test 04/26/19 05:00 04/26/19 07:58 White Blood Count 12.9 K/UL (4.8-10.8) H Red Blood Count 2.57 M/UL (4.20-5.40) L Hemoglobin 7.1 G/DL (12.0-16.0) L Hematocrit 22.8 % (37.0-47.0) L Mean Corpuscular Volume 89 FL (80-99) Mean Corpuscular Hemoglobin 27.9 PG (27.0-31.0) Mean Corpuscular Hemoglobin Concent 31.3 G/DL (32.0-36.0) L Red Cell Distribution Width 14.9 % (11.6-14.8) H Platelet Count 179 K/UL (150-450) Mean Platelet Volume 6.9 FL (6.5-10.1) Neutrophils (%) (Auto) % (45.0-75.0) Lymphocytes (%) (Auto) % (20.0-45.0) Monocytes (%) (Auto) % (1.0-10.0) Eosinophils (%) (Auto) % (0.0-3.0) Basophils (%) (Auto) % (0.0-2.0) Differential Total Cells Counted 100 Neutrophils % (Manual) 75 % (45-75) Lymphocytes % (Manual) 14 % (20-45) L Monocytes % (Manual) 6 % (1-10) Eosinophils % (Manual) 4 % (0-3) H Basophils % (Manual) 0 % (0-2) Band Neutrophils 1 % (0-8) Platelet Estimate Adequate Platelet Morphology Normal Hypochromasia 3+ Anisocytosis 1+ Sodium Level 136 MMOL/L (136-145) Potassium Level 5.0 MMOL/L (3.5-5.1) Chloride Level 106 MMOL/L (98-107) Carbon Dioxide Level 22 MMOL/L (21-32) Anion Gap 8 mmol/L (5-15) Blood Urea Nitrogen 52 mg/dL (7-18) H Creatinine 1.9 MG/DL (0.55-1.30) H Estimat Glomerular Filtration Rate mL/min (>60) Glucose Level 202 MG/DL (74-106) H Calcium Level 8.3 MG/DL (8.5-10.1) L Phosphorus Level 3.3 MG/DL (2.5-4.9) Magnesium Level 2.1 MG/DL (1.8-2.4) Total Bilirubin 0.2 MG/DL (0.2-1.0) Aspartate Amino Transf (AST/SGOT) 36 U/L (15-37) Alanine Aminotransferase (ALT/SGPT) 11 U/L (12-78) L Alkaline Phosphatase 127 U/L (46-116) H Total Protein 6.0 G/DL (6.4-8.2) L Albumin 1.1 G/DL (3.4-5.0) L Globulin 4.9 g/dL Albumin/Globulin Ratio 0.2 (1.0-2.7) L Arterial Blood pH 7.401 (7.350-7.450) Arterial Blood Partial Pressure CO2 32.2 mmHg (35.0-45.0) L Arterial Blood Partial Pressure O2 78.3 mmHg (75.0-100.0) Arterial Blood HCO3 19.5 mmol/L (22.0-26.0) L Arterial Blood Oxygen Saturation 95.4 % (95-100) Arterial Blood Base Excess -4.6 (-2-2) L Marlo Test Positive General: well developed, well nourished, no acute distress Head: normocophalic Neck: no rigidity EENT: benign Neurologic Exam Mental Status: awake, other Speech: other Language: other Cranial Nerve II: fundus normal, visual cruz, no papilledema, other Cranial Nerves III, IV, : PERRLA, EOMI, other Cranial Nerve V: other Cranial Nerve VII: other Cranial Nerve VIII: other Cranial Nerve IX: other Cranial Nerve XI: other Cranial Nerve XII: other Motor System: other Sensory: other Coordination: other Gait: other Objective Right Hemiplegia at baseline- not following commands, eyes opening to noxious stimuli. Previously on BIPAP, now intubated since 04/20/19 due to respiratory failure while in ICU on BIPAP. She is alert, eyes opening to voice and noxious stimuli. She triple flexes in left leg and arm. Right hemiparesis apparent with minimal withdrawal flexion on right UE/LE. 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 Replace/ Replete lytes as needed - hypocalcemia. PEG feeds when able Trach Planned Critical care time of 40 minutes, was performed in order to assess and manage the high probability of imminent or life threatening deterioration to respiratory/neurologic function, with frequent reassessment and excludes all billable procedures. Phyllis Diop N.P. Apr 26, 2019 23:51
[2019-04-27] VITALS (24 sets, daily range): BP systolic 110–137; BP diastolic 54–80
[2019-04-27] MEDS: NovoLOG Insulin Flexpen SUBQ SCH ×4 (00:10→17:04)
--- NOTE | 2019-04-27 02:00 | NUR ---
NURSE NOTES:SR with BBB on the monitor, bp stable. afebrile.
--- NOTE | 2019-04-27 04:00 | NUR ---
NURSE NOTES:Complete bed bath with bed changed done.
--- NOTE | 2019-04-27 06:00 | NUR ---
NURSE NOTES:Left upper arm PICC line drsg was changed. No resp. distress noted. Accucheck 225mg/dl covered with 4 u nov subcut.
[2019-04-27 06:17] LABS: BASOPHILS % (AUTO) 0.3 % (0.0-2.0); EOSINOPHILS % (AUTO) 1.5 % (0.0-3.0); HEMATOCRIT 25.1 % (37.0-47.0); HEMOGLOBIN 8.2 G/DL (12.0-16.0); LYMPHOCYTES % (AUTO) 13.4 % (20.0-45.0); MEAN CORPUSCULAR VOLUME 88 FL (80-99); MONOCYTES % (AUTO) 5.9 % (1.0-10.0); NEUTROPHILS % (AUTO) 78.9 % (45.0-75.0); PLATELET COUNT 170 K/UL (150-450); RED BLOOD COUNT 2.86 M/UL (4.20-5.40); RED CELL DISTRIBUTION WIDTH 14.6 % (11.6-14.8); WHITE BLOOD COUNT 12.4 K/UL (4.8-10.8)
--- NOTE | 2019-04-27 07:00 | NUR ---
RESPIRATORY NOTES: Received patient on ventilator settings of ACVC RR 16, VT 500, FIO2 30%, PEEP +5. Patient intubated with 7.5 ETT at 23 cm at the lip, secured with anchorfast. Bilateral rhonchi breath sounds noted. Suction minimal amounts of thin white clear secretions through the ETT and through the mouth. Vent plugged into red outlet. Alarms are on and audible. Will continue to closely monitor throughout the day.
--- NOTE | 2019-04-27 07:24 | NUR ---
HAND-OFF: Report given to Alex BURNETT.
[2019-04-27 07:35] LABS: ANION GAP 11 mmol/L (5-15); BLOOD UREA NITROGEN 52 mg/dL (7-18); CALCIUM 8.5 MG/DL (8.5-10.1); CARBON DIOXIDE 20 MMOL/L (21-32); CHLORIDE 109 MMOL/L (98-107); CREATININE 1.8 MG/DL (0.55-1.30); SODIUM 140 MMOL/L (136-145)
[2019-04-27 07:37] LABS: ALANINE AMINOTRANSFERASE 20 U/L (12-78); ALBUMIN 1.2 G/DL (3.4-5.0); ALKALINE PHOSPHATASE 120 U/L (46-116); ASPARTATE AMINO TRANSFERASE 39 U/L (15-37); BILIRUBIN,DIRECT < 0.1 MG/DL (0.0-0.3); BILIRUBIN,TOTAL 0.3 MG/DL (0.2-1.0); PHOSPHORUS 3.3 MG/DL (2.5-4.9)
--- NOTE | 2019-04-27 07:40 | NUR ---
NURSE NOTES: Received the patient from [facility]. Patient is awake, opens eyes spontaneously, does not follow commands. Orally intubated, ETT size 7.5, 23cm at lip line. Vent settings: AC 16, TV 500, FIO2 30%, PEEP 5, O2 sat 95%. No acute distress noted. SR noted on the chief architect. Gtube intact, running glucerna 1.2 at 50ml/hr. Rectal tube intact, draining brown liquid stool. Fraga cath intact and patient, draining urine by gravity. Left upper arm PICC line, TKO. dressing intact, clean and dry. Patient on P200 mattress. SCDs on bilateral lower extremities. Patient on left wrist restraints, pulse present, no skin breakdown noted. VSS. Bed in lowest position, locked, side rails upx3. Bed alarm on. Will continue to monitor.
[2019-04-27] MEDS: Midodrine 10mg tab NG SCH ×3 (09:00→17:05)
--- NOTE | 2019-04-27 09:09 | General Progress Note ---
Assessment/Plan Problem List: (1) Acute metabolic encephalopathy ICD Codes: G93.41 - Metabolic encephalopathy SNOMED: 42988358, 914051329 (2) 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 ICD Codes: E11.22 - Type 2 diabetes mellitus with diabetic chronic kidney disease; N18.4 - Chronic kidney disease, stage 4 (severe) SNOMED: 38087804, 362760982, 251996082 (3) Diabetes mellitus ICD Codes: E11.9 - Type 2 diabetes mellitus without complications SNOMED: 87485720 (4) CAD (coronary artery disease) ICD Codes: I25.10 - Atherosclerotic heart disease of [place] coronary artery without angina pectoris SNOMED: 93825694 (5) History of CVA (cerebrovascular accident) ICD Codes: Z86.73 - Personal history of transient ischemic attack (TIA), and cerebral infarction without residual deficits SNOMED: 541485811 (6) Anemia in chronic kidney disease (CKD) ICD Codes: N18.9 - Chronic kidney disease, unspecified; D63.1 - Anemia in chronic kidney disease SNOMED: 813846875 (7) Diabetic nephropathy ICD Codes: E11.21 - Type 2 diabetes mellitus with diabetic nephropathy SNOMED: 768237480 Status: stable, unchanged Assessment/Plan: intubated GTF fu labs fu pulm recs prn blood transfusion ppi Subjective ROS Limited/Unobtainable: No Allergies: Coded Allergies: No Known Allergies (Unverified , 04/12/19) Objective Last 24 Hour Vital Signs Date Time Temp Pulse Resp B/P (MAP) Pulse Ox O2 Delivery O2 Flow Rate FiO2 04/27/19 08:00 98.8 88 21 124/66 (85) 94 04/27/19 07:17 85 16 30 04/27/19 07:16 84 16 98 Mechanical Ventilator 30 04/27/19 07:00 89 19 114/62 (79) 100 04/27/19 06:00 91 19 118/59 (78) 100 04/27/19 05:14 87 20 30 04/27/19 05:00 88 19 120/59 (79) 100 04/27/19 04:00 30 04/27/19 04:00 Mechanical Ventilator 04/27/19 04:00 96 04/27/19 04:00 98.0 97 19 115/70 (85) 100 04/27/19 03:00 88 19 110/60 (77) 100 04/27/19 02:50 84 20 30 04/27/19 02:00 89 19 128/72 (90) 100 04/27/19 01:26 85 21 30 04/27/19 01:00 87 19 112/61 (78) 100 04/27/19 00:00 93 04/27/19 00:00 Mechanical Ventilator 04/27/19 00:00 30 04/27/19 00:00 98.8 93 18 111/59 (76) 100 04/26/19 23:15 90 20 30 04/26/19 23:00 91 19 126/69 (88) 98 04/26/19 22:00 89 19 125/70 (88) 98 04/26/19 21:04 83 21 30 04/26/19 21:00 84 20 136/72 (93) 98 04/26/19 20:00 99.9 84 17 135/64 (87) 99 04/26/19 20:00 Mechanical Ventilator 04/26/19 20:00 30 04/26/19 20:00 82 04/26/19 19:00 84 23 152/76 (101) 100 04/26/19 18:44 85 23 30 04/26/19 18:00 88 22 154/78 (103) 99 04/26/19 17:00 88 21 142/71 (94) 99 04/26/19 16:53 84 25 30 04/26/19 16:00 Mechanical Ventilator 04/26/19 16:00 82 04/26/19 16:00 99.4 86 20 121/61 (81) 100 04/26/19 16:00 30 04/26/19 15:00 87 21 121/70 (87) 100 04/26/19 14:53 88 20 30 04/26/19 14:00 89 21 118/66 (83) 100 04/26/19 13:12 84 18 30 04/26/19 13:00 88 18 113/63 (80) 100 04/26/19 12:00 99.3 84 19 120/66 (84) 100 04/26/19 12:00 Mechanical Ventilator 04/26/19 12:00 87 04/26/19 12:00 30 04/26/19 11:00 82 16 120/62 (81) 100 04/26/19 10:48 81 16 30 04/26/19 10:00 83 19 120/64 (82) 100 04/26/19 09:15 79 16 30 Intake and Output 04/26/19 04/27/19 19:00 07:00 Intake Total 1130 ml 1170 ml Output Total 420 ml 600 ml Balance 710 ml 570 ml Free Water 300 ml 450 ml IV Total 110 ml Tube Feeding 720 ml 720 ml Output Urine Total 420 ml 550 ml Stool Total 50 ml Laboratory Tests 04/27/19 05:49: White Blood Count 12.4H, Red Blood Count 2.86L, Hemoglobin 8.2L, Hematocrit 25.1L, Mean Corpuscular Volume 88, Mean Corpuscular Hemoglobin 28.6, Mean Corpuscular Hemoglobin Concent 32.5, Red Cell Distribution Width 14.6, Platelet Count 170, Mean Platelet Volume 7.6, Neutrophils (%) (Auto) 78.9H, Lymphocytes ( %) (Auto) 13.4L, Monocytes (%) (Auto) 5.9, Eosinophils (%) (Auto) 1.5, Basophils (%) (Auto) 0.3, Sodium Level 140, Potassium Level 6.0*H, Chloride Level 109H, Carbon Dioxide Level 20L, Anion Gap 11, Blood Urea Nitrogen 52H, Creatinine 1.8H, Estimat Glomerular Filtration Rate , Glucose Level 223H, Calcium Level 8.5, Phosphorus Level 3.3, Magnesium Level 2.0, Total Bilirubin 0.3, Direct Bilirubin < 0.1, Aspartate Amino Transf (AST/SGOT) 39H, Alanine Aminotransferase (ALT/SGPT) 20, Alkaline Phosphatase 120H, Total Protein 5.8L, Albumin 1.2L Height (Feet): 5 Height (Inches): 7.00 Weight (Pounds): 188 General Appearance: no apparent distress EENT: normal ENT inspection Neck: supple Cardiovascular: normal rate Respiratory/Chest: decreased breath sounds Abdomen: normal bowel sounds, non tender, soft Extremities: non-tender Darron Gentile MD Apr 27, 2019 09:09
--- NOTE | 2019-04-27 09:45 | NUR ---
NURSE NOTES: Patient seen by Dr. Spivey and Dr. Springer. Per Dr. Spivey, repeat K level from peripheral draw. called the lab.
--- NOTE | 2019-04-27 10:05 | Nephrology Progress Note ---
Assessment/Plan Problem List: (1) Renal failure (ARF), acute on chronic (2) Diabetic nephropathy (3) Sepsis (4) Pneumonia (5) Right hemiplegia (6) Anemia in chronic kidney disease (CKD) (7) Pulmonary hypertension Assessment intubated Renal failure; - Pre Renal - ? Underlying Renal Anemia Pneumonia / respiratory failure Sepsis elevated Troponin UTI HyperGlycemia / DM Right Esvin HTN Plan recheck K , suspect hemolysis discussed with RN transfuse for low Hgb as needed K Phos IV as needed venofer Folate 24 H urine protein check 2.4 gram Fraga Hydrate BP and BS control urine studies slow hydrate kidney MAIKEL results noted: No Brohman 2D echo Noted visualized except distal setum and inferiro wall hypokinesis Left ventricular ejection fraction estimated to be 55-60 %. avoid Nephrotoxics per orders Subjective ROS Limited/Unobtainable: Yes Objective Objective Last 24 Hour Vital Signs Date Time Temp Pulse Resp B/P (MAP) Pulse Ox O2 Delivery O2 Flow Rate FiO2 04/27/19 09:49 85 16 30 04/27/19 09:00 93 23 126/59 (81) 95 04/27/19 08:00 98.8 88 21 124/66 (85) 94 04/27/19 08:00 30 04/27/19 08:00 96 04/27/19 08:00 Mechanical Ventilator 04/27/19 07:17 85 16 30 04/27/19 07:16 84 16 98 Mechanical Ventilator 30 04/27/19 07:00 89 19 114/62 (79) 100 04/27/19 06:00 91 19 118/59 (78) 100 04/27/19 05:14 87 20 30 04/27/19 05:00 88 19 120/59 (79) 100 04/27/19 04:00 30 04/27/19 04:00 Mechanical Ventilator 04/27/19 04:00 96 04/27/19 04:00 98.0 97 19 115/70 (85) 100 04/27/19 03:00 88 19 110/60 (77) 100 04/27/19 02:50 84 20 30 04/27/19 02:00 89 19 128/72 (90) 100 04/27/19 01:26 85 21 30 04/27/19 01:00 87 19 112/61 (78) 100 04/27/19 00:00 93 04/27/19 00:00 Mechanical Ventilator 04/27/19 00:00 30 04/27/19 00:00 98.8 93 18 111/59 (76) 100 04/26/19 23:15 90 20 30 04/26/19 23:00 91 19 126/69 (88) 98 04/26/19 22:00 89 19 125/70 (88) 98 04/26/19 21:04 83 21 30 04/26/19 21:00 84 20 136/72 (93) 98 04/26/19 20:00 99.9 84 17 135/64 (87) 99 04/26/19 20:00 Mechanical Ventilator 04/26/19 20:00 30 04/26/19 20:00 82 04/26/19 19:00 84 23 152/76 (101) 100 04/26/19 18:44 85 23 30 04/26/19 18:00 88 22 154/78 (103) 99 04/26/19 17:00 88 21 142/71 (94) 99 04/26/19 16:53 84 25 30 04/26/19 16:00 Mechanical Ventilator 04/26/19 16:00 82 04/26/19 16:00 99.4 86 20 121/61 (81) 100 04/26/19 16:00 30 04/26/19 15:00 87 21 121/70 (87) 100 04/26/19 14:53 88 20 30 04/26/19 14:00 89 21 118/66 (83) 100 04/26/19 13:12 84 18 30 04/26/19 13:00 88 18 113/63 (80) 100 04/26/19 12:00 99.3 84 19 120/66 (84) 100 04/26/19 12:00 Mechanical Ventilator 04/26/19 12:00 87 04/26/19 12:00 30 04/26/19 11:00 82 16 120/62 (81) 100 04/26/19 10:48 81 16 30 Intake and Output 04/26/19 04/27/19 19:00 07:00 Intake Total 1130 ml 1170 ml Output Total 420 ml 600 ml Balance 710 ml 570 ml Free Water 300 ml 450 ml IV Total 110 ml Tube Feeding 720 ml 720 ml Output Urine Total 420 ml 550 ml Stool Total 50 ml Laboratory Tests 04/27/19 05:49: White Blood Count 12.4H, Red Blood Count 2.86L, Hemoglobin 8.2L, Hematocrit 25.1L, Mean Corpuscular Volume 88, Mean Corpuscular Hemoglobin 28.6, Mean Corpuscular Hemoglobin Concent 32.5, Red Cell Distribution Width 14.6, Platelet Count 170, Mean Platelet Volume 7.6, Neutrophils (%) (Auto) 78.9H, Lymphocytes ( %) (Auto) 13.4L, Monocytes (%) (Auto) 5.9, Eosinophils (%) (Auto) 1.5, Basophils (%) (Auto) 0.3, Sodium Level 140, Potassium Level 6.0*H, Chloride Level 109H, Carbon Dioxide Level 20L, Anion Gap 11, Blood Urea Nitrogen 52H, Creatinine 1.8H, Estimat Glomerular Filtration Rate , Glucose Level 223H, Calcium Level 8.5, Phosphorus Level 3.3, Magnesium Level 2.0, Total Bilirubin 0.3, Direct Bilirubin < 0.1, Aspartate Amino Transf (AST/SGOT) 39H, Alanine Aminotransferase (ALT/SGPT) 20, Alkaline Phosphatase 120H, Total Protein 5.8L, Albumin 1.2L Height (Feet): 5 Height (Inches): 7.00 Weight (Pounds): 188 EENT: other - vented Cardiovascular: tachycardia Respiratory/Chest: decreased breath sounds Abdomen: distended Wally Spivey MD Apr 27, 2019 10:05
--- NOTE | 2019-04-27 10:22 | Pulmonolgy Critical Care Note ---
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 (7) Hypertensive heart disease (8) Right hemiplegia (9) History of CVA (cerebrovascular accident) (10) CAD (coronary artery disease) Respiratory: monitor respiratory rate, adjust FIO2 Cardiac: continue pressors Renal: F/U I&O, check electrolytes Infectious Disease: check cultures, continue antibiotics Gastrointestinal: continue feedings/current rate, hold feedings Endocrine: monitor blood sugar Hematologic: transfuse if hgb<8.5 Neurologic: keep patient comfortable Affect: PRN ativan Prophylaxis: Protonix Notes Reviewed: electron beam photo mask technician, cardio Discussed with: nurses, consultants, caser upcommercial portfolio manager - Objective Last 24 Hour Vital Signs Date Time Temp Pulse Resp B/P (MAP) Pulse Ox O2 Delivery O2 Flow Rate FiO2 04/27/19 09:49 85 16 30 04/27/19 09:00 93 23 126/59 (81) 95 04/27/19 08:00 98.8 88 21 124/66 (85) 94 04/27/19 08:00 30 04/27/19 08:00 96 04/27/19 08:00 Mechanical Ventilator 04/27/19 07:17 85 16 30 04/27/19 07:16 84 16 98 Mechanical Ventilator 30 04/27/19 07:00 89 19 114/62 (79) 100 04/27/19 06:00 91 19 118/59 (78) 100 04/27/19 05:14 87 20 30 04/27/19 05:00 88 19 120/59 (79) 100 04/27/19 04:00 30 04/27/19 04:00 Mechanical Ventilator 04/27/19 04:00 96 04/27/19 04:00 98.0 97 19 115/70 (85) 100 04/27/19 03:00 88 19 110/60 (77) 100 04/27/19 02:50 84 20 30 04/27/19 02:00 89 19 128/72 (90) 100 04/27/19 01:26 85 21 30 04/27/19 01:00 87 19 112/61 (78) 100 04/27/19 00:00 93 04/27/19 00:00 Mechanical Ventilator 04/27/19 00:00 30 04/27/19 00:00 98.8 93 18 111/59 (76) 100 04/26/19 23:15 90 20 30 04/26/19 23:00 91 19 126/69 (88) 98 04/26/19 22:00 89 19 125/70 (88) 98 04/26/19 21:04 83 21 30 04/26/19 21:00 84 20 136/72 (93) 98 04/26/19 20:00 99.9 84 17 135/64 (87) 99 04/26/19 20:00 Mechanical Ventilator 04/26/19 20:00 30 04/26/19 20:00 82 04/26/19 19:00 84 23 152/76 (101) 100 04/26/19 18:44 85 23 30 04/26/19 18:00 88 22 154/78 (103) 99 04/26/19 17:00 88 21 142/71 (94) 99 04/26/19 16:53 84 25 30 04/26/19 16:00 Mechanical Ventilator 04/26/19 16:00 82 04/26/19 16:00 99.4 86 20 121/61 (81) 100 04/26/19 16:00 30 04/26/19 15:00 87 21 121/70 (87) 100 04/26/19 14:53 88 20 30 04/26/19 14:00 89 21 118/66 (83) 100 04/26/19 13:12 84 18 30 04/26/19 13:00 88 18 113/63 (80) 100 04/26/19 12:00 99.3 84 19 120/66 (84) 100 04/26/19 12:00 Mechanical Ventilator 04/26/19 12:00 87 04/26/19 12:00 30 04/26/19 11:00 82 16 120/62 (81) 100 04/26/19 10:48 81 16 30 Status: awake Condition: critical HEENT: atraumatic Neck: full ROM Heart: HR/BP stable, regular Abdomen: non-tender, feeding tube Micro: Microbiology Date/Time Source Procedure Growth Status 04/24/19 12:20 Blood Blood Culture - Preliminary NO GROWTH AFTER 48 HOURS Resulted 04/24/19 12:10 Blood Blood Culture - Preliminary NO GROWTH AFTER 48 HOURS Resulted 04/24/19 14:45 Stool Clostridium difficile Toxin Assay - Final Complete Accucheck: 225 Critical Care - Subjective ROS Limited/Unobtainable: Yes EKG Rhythm: Sinus Rhythm FI02: 30 Vent Support Breath Rate: 16 Vent Support Mode: AC Vent Tidal Volume: 500 Sputum Amount: Small PEEP: 5.0 PIP: 39 Tube Feeding Amount: 60 I&O: Intake and Output 04/26/19 04/27/19 19:00 07:00 Intake Total 1130 ml 1170 ml Output Total 420 ml 600 ml Balance 710 ml 570 ml Free Water 300 ml 450 ml IV Total 110 ml Tube Feeding 720 ml 720 ml Output Urine Total 420 ml 550 ml Stool Total 50 ml CXR: no change ET-Tube: 7.5 ET Position: 23 Labs: Laboratory Tests Test 04/27/19 05:49 04/27/19 10:00 White Blood Count 12.4 K/UL (4.8-10.8) H Red Blood Count 2.86 M/UL (4.20-5.40) L Hemoglobin 8.2 G/DL (12.0-16.0) L Hematocrit 25.1 % (37.0-47.0) L Mean Corpuscular Volume 88 FL (80-99) Mean Corpuscular Hemoglobin 28.6 PG (27.0-31.0) Mean Corpuscular Hemoglobin Concent 32.5 G/DL (32.0-36.0) Red Cell Distribution Width 14.6 % (11.6-14.8) Platelet Count 170 K/UL (150-450) Mean Platelet Volume 7.6 FL (6.5-10.1) Neutrophils (%) (Auto) 78.9 % (45.0-75.0) H Lymphocytes (%) (Auto) 13.4 % (20.0-45.0) L Monocytes (%) (Auto) 5.9 % (1.0-10.0) Eosinophils (%) (Auto) 1.5 % (0.0-3.0) Basophils (%) (Auto) 0.3 % (0.0-2.0) Sodium Level 140 MMOL/L (136-145) Potassium Level 6.0 MMOL/L (3.5-5.1) *H Pending Chloride Level 109 MMOL/L (98-107) H Carbon Dioxide Level 20 MMOL/L (21-32) L Anion Gap 11 mmol/L (5-15) Blood Urea Nitrogen 52 mg/dL (7-18) H Creatinine 1.8 MG/DL (0.55-1.30) H Estimat Glomerular Filtration Rate mL/min (>60) Glucose Level 223 MG/DL (74-106) H Calcium Level 8.5 MG/DL (8.5-10.1) Phosphorus Level 3.3 MG/DL (2.5-4.9) Magnesium Level 2.0 MG/DL (1.8-2.4) Total Bilirubin 0.3 MG/DL (0.2-1.0) Direct Bilirubin < 0.1 MG/DL (0.0-0.3) Aspartate Amino Transf (AST/SGOT) 39 U/L (15-37) H Alanine Aminotransferase (ALT/SGPT) 20 U/L (12-78) Alkaline Phosphatase 120 U/L (46-116) H Total Protein 5.8 G/DL (6.4-8.2) L Albumin 1.2 G/DL (3.4-5.0) L Tony Springer MD Apr 27, 2019 10:22
--- NOTE | 2019-04-27 10:40 | NUR ---
NURSE NOTES: Dr. Spivey made aware of repeat K 5.7. No new orders.
[2019-04-27] MEDS ORDERED: Sodium Polystyrene Sulfonate 15gm Powder NG SCH (11:00)
[2019-04-27] MEDS ORDERED: Metoclopramide 10mg/10ml Liq NG SCH (11:00)
--- NOTE | 2019-04-27 11:18 | Infectious Diseases Prog Note ---
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 PNA Pulmonary edema -04/26 CXR: Suspect slightly increased interstitial and airspace edema, over 2 days.Possibly improving small right pleural effusion -04/19 CXR: There is less pulmonary edema compared to yesterday but with moderate residual edema. -04/16 CXR: . Right perihilar and bilateral lower lobe pulmonary consolidation concerning for pneumonia.Small bilateral pleural effusions. CXR - B/L Infiltrates Low grade fevers; improving WBCs up to 25; improving -04/24 Cdiff eng 04/16 Sp Cx - C. alb; 04/19 spC. albicans (colonizer) -BCx NTD -legionella ag urine neg Widened mediastinum - right sided aortic arch CXR - Apparent upper mediastinal widening. Possibly due to ectatic vasculature and body habitus, but upper mediastinal mass also possible. Correlate with any prior adiographs and may be available, consider CT for further evaluation if clinically indicated CT 04/13/19 - Right-sided aortic arch, presumably accounting for the apparent upper mediastinal widening demonstrated on recent plain radiograph. No evidence of upper mediastinal mass. Extensive bilateral lower lobe consolidation , likely pneumonia, less extensive left upper lobe consolidation. 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 CKD CAD PLAN Continue Cefepime #5 (abx d#9/10) for PNA -04/22 SP Meropenem #5 -04/20 SP Vancomycin #8 - 04/18/19 S/P Cefepime #6 - f/u cultures - Monitor CBC and Temps Thank you for this consult. We will continue to follow the patient during this hospitalization. Subjective Allergies: Coded Allergies: No Known Allergies (Unverified , 04/12/19) Subjective afebrile ~36hrs wbc improving Bcx NTD Objective Vital Signs Last 24 Hour Vital Signs Date Time Temp Pulse Resp B/P (MAP) Pulse Ox O2 Delivery O2 Flow Rate FiO2 04/27/19 11:11 78 16 30 04/27/19 10:00 98 21 120/74 (89) 04/27/19 09:49 85 16 30 04/27/19 09:00 93 23 126/59 (81) 95 04/27/19 08:00 98.8 88 21 124/66 (85) 94 04/27/19 08:00 30 04/27/19 08:00 96 04/27/19 08:00 Mechanical Ventilator 04/27/19 07:17 85 16 30 04/27/19 07:16 84 16 98 Mechanical Ventilator 30 04/27/19 07:00 89 19 114/62 (79) 100 04/27/19 06:00 91 19 118/59 (78) 100 04/27/19 05:14 87 20 30 04/27/19 05:00 88 19 120/59 (79) 100 04/27/19 04:00 30 04/27/19 04:00 Mechanical Ventilator 04/27/19 04:00 96 04/27/19 04:00 98.0 97 19 115/70 (85) 100 04/27/19 03:00 88 19 110/60 (77) 100 04/27/19 02:50 84 20 30 04/27/19 02:00 89 19 128/72 (90) 100 04/27/19 01:26 85 21 30 04/27/19 01:00 87 19 112/61 (78) 100 04/27/19 00:00 93 04/27/19 00:00 Mechanical Ventilator 04/27/19 00:00 30 04/27/19 00:00 98.8 93 18 111/59 (76) 100 04/26/19 23:15 90 20 30 04/26/19 23:00 91 19 126/69 (88) 98 04/26/19 22:00 89 19 125/70 (88) 98 04/26/19 21:04 83 21 30 04/26/19 21:00 84 20 136/72 (93) 98 04/26/19 20:00 99.9 84 17 135/64 (87) 99 04/26/19 20:00 Mechanical Ventilator 04/26/19 20:00 30 04/26/19 20:00 82 04/26/19 19:00 84 23 152/76 (101) 100 04/26/19 18:44 85 23 30 04/26/19 18:00 88 22 154/78 (103) 99 04/26/19 17:00 88 21 142/71 (94) 99 04/26/19 16:53 84 25 30 7/1/19 16:00 Mechanical Ventilator 04/26/19 16:00 82 04/26/19 16:00 99.4 86 20 121/61 (81) 100 04/26/19 16:00 30 04/26/19 15:00 87 21 121/70 (87) 100 04/26/19 14:53 88 20 30 04/26/19 14:00 89 21 118/66 (83) 100 04/26/19 13:12 84 18 30 04/26/19 13:00 88 18 113/63 (80) 100 04/26/19 12:00 99.3 84 19 120/66 (84) 100 04/26/19 12:00 Mechanical Ventilator 04/26/19 12:00 87 04/26/19 12:00 30 Height (Feet): 5 Height (Inches): 7.00 Weight (Pounds): 188 Objective Gen: Awake and talking HEENT: NCAT, MMM, EOMI LUNGS: CTAB, No W CARDS: RRR, S1, S2, No M/R/G, ABD: Soft, NT, ND Microbiology Date/Time Source Procedure Growth Status 04/24/19 12:20 Blood Blood Culture - Preliminary NO GROWTH AFTER 48 HOURS Resulted 04/24/19 12:10 Blood Blood Culture - Preliminary NO GROWTH AFTER 48 HOURS Resulted 04/24/19 14:45 Stool Clostridium difficile Toxin Assay - Final Complete Laboratory Tests Test 04/27/19 05:49 04/27/19 10:00 White Blood Count 12.4 K/UL (4.8-10.8) H Red Blood Count 2.86 M/UL (4.20-5.40) L Hemoglobin 8.2 G/DL (12.0-16.0) L Hematocrit 25.1 % (37.0-47.0) L Mean Corpuscular Volume 88 FL (80-99) Mean Corpuscular Hemoglobin 28.6 PG (27.0-31.0) Mean Corpuscular Hemoglobin Concent 32.5 G/DL (32.0-36.0) Red Cell Distribution Width 14.6 % (11.6-14.8) Platelet Count 170 K/UL (150-450) Mean Platelet Volume 7.6 FL (6.5-10.1) Neutrophils (%) (Auto) 78.9 % (45.0-75.0) H Lymphocytes (%) (Auto) 13.4 % (20.0-45.0) L Monocytes (%) (Auto) 5.9 % (1.0-10.0) Eosinophils (%) (Auto) 1.5 % (0.0-3.0) Basophils (%) (Auto) 0.3 % (0.0-2.0) Sodium Level 140 MMOL/L (136-145) Potassium Level 6.0 MMOL/L (3.5-5.1) *H 5.7 MMOL/L (3.5-5.1) H Chloride Level 109 MMOL/L (98-107) H Carbon Dioxide Level 20 MMOL/L (21-32) L Anion Gap 11 mmol/L (5-15) Blood Urea Nitrogen 52 mg/dL (7-18) H Creatinine 1.8 MG/DL (0.55-1.30) H Estimat Glomerular Filtration Rate mL/min (>60) Glucose Level 223 MG/DL (74-106) H Calcium Level 8.5 MG/DL (8.5-10.1) Phosphorus Level 3.3 MG/DL (2.5-4.9) Magnesium Level 2.0 MG/DL (1.8-2.4) Total Bilirubin 0.3 MG/DL (0.2-1.0) Direct Bilirubin < 0.1 MG/DL (0.0-0.3) Aspartate Amino Transf (AST/SGOT) 39 U/L (15-37) H Alanine Aminotransferase (ALT/SGPT) 20 U/L (12-78) Alkaline Phosphatase 120 U/L (46-116) H Total Protein 5.8 G/DL (6.4-8.2) L Albumin 1.2 G/DL (3.4-5.0) L Current Medications Medications (Trade) Dose Ordered Sig/Kenisha Route PRN Reason Start Time Stop Time Status Last Admin Dose Admin Acetaminophen (Tylenol) 650 mg Q4H PRN ORAL FEVER 04/17/19 12:36 05/17/19 12:35 04/25/19 23:56 Acetaminophen (Tylenol) 650 mg Q4H PRN RECTAL Fever 04/17/19 12:36 05/17/19 12:35 04/18/19 08:53 Cefepime HCl 1 gm/ Dextrose 55 ml @ 110 mls/hr Q24H IVPB 04/22/19 12:00 04/29/19 11:59 04/26/19 12:47 Chlorhexidine Gluconate (Izzy-Hex 2%) 1 applic DAILY@2000 TOPIC 04/20/19 20:00 05/20/19 19:59 04/26/19 20:12 Dextrose (Dextrose 50%) 25 ml Q30M PRN IV Hypoglycemia 04/17/19 12:45 05/12/19 19:44 Dextrose (Dextrose 50%) 50 ml Q30M PRN IV Hypoglycemia 04/17/19 12:45 05/12/19 19:44 Epoetin Bandar (Procrit (for non ESRD use)) 10,000 units FRI-FRI-FRI SUBQ 04/26/19 21:00 05/26/19 20:59 04/26/19 21:16 Folic Acid (Folate) 1 mg DAILY ORAL 04/26/19 09:00 05/19/19 08:59 04/27/19 09:43 Hydralazine HCl (Apresoline) 10 mg Q2H PRN IV For High Blood Pressure 04/17/19 12:36 05/17/19 12:35 Insulin Aspart (NovoLOG) Q6HR SUBQ 04/20/19 18:00 05/20/19 17:59 04/27/19 06:28 Lansoprazole (Prevacid) 30 mg DAILY GT 04/22/19 09:00 05/22/19 08:59 04/27/19 09:43 Metoclopramide HCl (Reglan) 10 mg ONCE NG 04/27/19 11:00 04/27/19 12:00 Midodrine (Pro-Amatine) 5 mg THREE TIMES A DAY NG 04/27/19 13:00 05/21/19 12:59 Ondansetron HCl (Zofran) 4 mg Q6H PRN IVP Nausea & Vomiting 04/17/19 12:37 05/17/19 12:36 Polyethylene Glycol (Miralax) 17 gm DAILYPRN PRN ORAL Constipation 04/17/19 12:37 05/17/19 12:36 04/23/19 10:31 Sodium Polystyrene Sulfonate (Kayexalate) 30 gm ONCE NG 04/27/19 11:00 04/27/19 12:00 Cora Baer M.D. Apr 27, 2019 11:18
--- NOTE | 2019-04-27 12:00 | NUR ---
NURSE NOTES: Patient awake, opens eyes spontaneously, does not follow commands. No acute distress noted. Patient was turned and repositioned. G tube intact, patient tolerating tube feeding, 50ml residual noted. HOB kept elevated.
--- NOTE | 2019-04-27 12:12 | General Progress Note ---
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 ICD Codes: E11.22 - Type 2 diabetes mellitus with diabetic chronic kidney disease; N18.4 - Chronic kidney disease, stage 4 (severe) SNOMED: 47697780, 860299396, 851255858 (7) Respiratory failure ICD Codes: J96.90 - Respiratory failure, unspecified, unspecified whether with hypoxia or hypercapnia SNOMED: 597794329 Qualifiers: Qualified Codes: J96.02 - Acute respiratory failure with hypercapnia Status: unchanged Assessment/Plan: pt diet abx o2 pulm tx neuro psyc eval cbc bmp am ltach eval Subjective Constitutional: Reports: weakness Allergies: Coded Allergies: No Known Allergies (Unverified , 04/12/19) All Systems: reviewed and negative except above Subjective intubated in icu Objective Last 24 Hour Vital Signs Date Time Temp Pulse Resp B/P (MAP) Pulse Ox O2 Delivery O2 Flow Rate FiO2 04/27/19 11:11 78 16 30 04/27/19 11:00 98 16 110/54 (72) 98 04/27/19 10:00 98 21 120/74 (89) 04/27/19 09:49 85 16 30 04/27/19 09:00 93 23 126/59 (81) 95 04/27/19 08:00 98.8 88 21 124/66 (85) 94 04/27/19 08:00 30 04/27/19 08:00 96 04/27/19 08:00 Mechanical Ventilator 04/27/19 07:17 85 16 30 04/27/19 07:16 84 16 98 Mechanical Ventilator 30 04/27/19 07:00 89 19 114/62 (79) 100 04/27/19 06:00 91 19 118/59 (78) 100 04/27/19 05:14 87 20 30 04/27/19 05:00 88 19 120/59 (79) 100 04/27/19 04:00 30 04/27/19 04:00 Mechanical Ventilator 04/27/19 04:00 96 04/27/19 04:00 98.0 97 19 115/70 (85) 100 04/27/19 03:00 88 19 110/60 (77) 100 04/27/19 02:50 84 20 30 04/27/19 02:00 89 19 128/72 (90) 100 04/27/19 01:26 85 21 30 04/27/19 01:00 87 19 112/61 (78) 100 04/27/19 00:00 93 04/27/19 00:00 Mechanical Ventilator 04/27/19 00:00 30 04/27/19 00:00 98.8 93 18 111/59 (76) 100 04/26/19 23:15 90 20 30 04/26/19 23:00 91 19 126/69 (88) 98 04/26/19 22:00 89 19 125/70 (88) 98 04/26/19 21:04 83 21 30 04/26/19 21:00 84 20 136/72 (93) 98 04/26/19 20:00 99.9 84 17 135/64 (87) 99 04/26/19 20:00 Mechanical Ventilator 04/26/19 20:00 30 04/26/19 20:00 82 04/26/19 19:00 84 23 152/76 (101) 100 04/26/19 18:44 85 23 30 04/26/19 18:00 88 22 154/78 (103) 99 04/26/19 17:00 88 21 142/71 (94) 99 04/26/19 16:53 84 25 30 04/26/19 16:00 Mechanical Ventilator 04/26/19 16:00 82 04/26/19 16:00 99.4 86 20 121/61 (81) 100 04/26/19 16:00 30 04/26/19 15:00 87 21 121/70 (87) 100 04/26/19 14:53 88 20 30 04/26/19 14:00 89 21 118/66 (83) 100 04/26/19 13:12 84 18 30 04/26/19 13:00 88 18 113/63 (80) 100 Intake and Output 04/26/19 04/27/19 19:00 07:00 Intake Total 1130 ml 1170 ml Output Total 420 ml 600 ml Balance 710 ml 570 ml Free Water 300 ml 450 ml IV Total 110 ml Tube Feeding 720 ml 720 ml Output Urine Total 420 ml 550 ml Stool Total 50 ml Laboratory Tests 04/27/19 05:49: White Blood Count 12.4H, Red Blood Count 2.86L, Hemoglobin 8.2L, Hematocrit 25.1L, Mean Corpuscular Volume 88, Mean Corpuscular Hemoglobin 28.6, Mean Corpuscular Hemoglobin Concent 32.5, Red Cell Distribution Width 14.6, Platelet Count 170, Mean Platelet Volume 7.6, Neutrophils (%) (Auto) 78.9H, Lymphocytes ( %) (Auto) 13.4L, Monocytes (%) (Auto) 5.9, Eosinophils (%) (Auto) 1.5, Basophils (%) (Auto) 0.3, Sodium Level 140, Potassium Level 6.0*H, Chloride Level 109H, Carbon Dioxide Level 20L, Anion Gap 11, Blood Urea Nitrogen 52H, Creatinine 1.8H, Estimat Glomerular Filtration Rate , Glucose Level 223H, Calcium Level 8.5, Phosphorus Level 3.3, Magnesium Level 2.0, Total Bilirubin 0.3, Direct Bilirubin < 0.1, Aspartate Amino Transf (AST/SGOT) 39H, Alanine Aminotransferase (ALT/SGPT) 20, Alkaline Phosphatase 120H, Total Protein 5.8L, Albumin 1.2L 04/27/19 10:00: Potassium Level 5.7H Height (Feet): 5 Height (Inches): 7.00 Weight (Pounds): 188 General Appearance: lethargic EENT: normal ENT inspection Neck: normal alignment Cardiovascular: normal peripheral pulses, normal rate, regular rhythm Respiratory/Chest: chest wall non-tender, lungs clear, normal breath sounds Abdomen: normal bowel sounds, non tender, soft Extremities: normal inspection Edema: no edema noted Arm (L), no edema noted Arm (R), no edema noted Leg (L), no edema noted Leg (R), no edema noted Pedal (L), no edema noted Pedal (R), no edema noted Generalized Neurologic: motor weakness Skin: normal pigmentation, warm/dry Jama Keating DO Apr 27, 2019 12:12
[2019-04-27] MEDS: Cefepime HCl 1 GM in D5W 55 ML IVPB SCH (12:26)
--- NOTE | 2019-04-27 12:46 | Consultation ---
History of Present Illness General Date patient seen: Apr 27, 2019 Chief Complaint: Fever Referring physician: Dr Sudhakar Keating Reason for Consultation: trach Present Illness HPI 79F fdc resident with multiple medical comorbidities [place] [facility] [place] fever, leukocytosis, sepsis. Has currently been in ICU intubated on vent support for some time now. Surgery called to evaluate for trach placement. patient seen, chart reviewed, patient examined. Allergies: Coded Allergies: No Known Allergies (Unverified , 04/12/19) Medication History Scheduled Clopidogrel Bisulfate* (Plavix*), 75 MG ORAL DAILY, (Reported) Docusate Sodium* (Docusil*), 100 MG ORAL TWICE A DAY, (Reported) Furosemide* (Lasix*), 40 MG ORAL DAILY, (Reported) Hydralazine Hcl* (Hydralazine Hcl*), 10 MG ORAL EVERY 6 HOURS, (Reported) Insulin Glargine (Lantus), 20 SUBQ BEDTIME, (Reported) Magnesium Hydroxide* (Milk Of Magnesia*), 30 ML ORAL DAILY, (Reported) Metoprolol Tartrate* (Metoprolol Tartrate*), 75 MG ORAL EVERY 12 HOURS, ( Reported) Multivitamins* (Multivitamins*), 1 TAB ORAL DAILY, (Reported) Na Phos,M-B/Na Phos,Di-Ba* (Fleet Enema*), 133 ML RECTAL DAILY, (Reported) Scheduled PRN Acetaminophen* (Acetaminophen 325MG Tablet*), 650 MG ORAL Q6H PRN for Pain Scale (3-5), (Reported) Miscellaneous Medications Bisacodyl (Dulcolax), 10 MG RC, (Reported) Cranberry (Cranberry), 450 MG PO, (Reported) Patient History Limited by: medical condition History Provided By: Medical Record, PMD Healthcare decision maker Cezar Sage (SON) Resuscitation status Full Code Advanced Directive on File Past Medical/Surgical History Past Medical/Surgical History: (1) Respiratory distress (2) Malnutrition (3) UTI (urinary tract infection) (4) Diabetic nephropathy (5) Renal failure (ARF), acute on chronic (6) Anemia in chronic kidney disease (CKD) (7) Pulmonary hypertension (8) Acute respiratory failure (9) Respiratory failure (10) Hypernatremia (11) Sepsis (12) Pneumonia (13) History of CVA (cerebrovascular accident) (14) CAD (coronary artery disease) (15) Right hemiplegia (16) Diabetes mellitus (17) Hypertensive heart disease (18) 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 (19) Nosocomial pneumonia (20) At high risk for aspiration (21) Acute metabolic encephalopathy Review of Systems ROS Narrative cannot obtain given medical condition Physical Exam General Appearance: mild distress Lines, tubes and drains: other HEENT: mucous membranes moist Neck: normal inspection Respiratory/Chest: on vent Cardiovascular/Chest: normal rate, tachycardia Abdomen: soft, no organomegaly, no mass, other Extremities: other Skin Exam: other Neurologic: unresponsiveness Last 24 Hour Vital Signs Date Time Temp Pulse Resp B/P (MAP) Pulse Ox O2 Delivery O2 Flow Rate FiO2 04/27/19 12:00 98.8 97 18 132/65 (87) 100 04/27/19 12:00 30 04/27/19 12:00 Mechanical Ventilator 04/27/19 11:11 78 16 30 04/27/19 11:00 98 16 110/54 (72) 98 04/27/19 10:00 98 21 120/74 (89) 04/27/19 09:49 85 16 30 04/27/19 09:00 93 23 126/59 (81) 95 04/27/19 08:00 98.8 88 21 124/66 (85) 94 04/27/19 08:00 30 04/27/19 08:00 96 04/27/19 08:00 Mechanical Ventilator 04/27/19 07:17 85 16 30 04/27/19 07:16 84 16 98 Mechanical Ventilator 30 04/27/19 07:00 89 19 114/62 (79) 100 04/27/19 06:00 91 19 118/59 (78) 100 04/27/19 05:14 87 20 30 04/27/19 05:00 88 19 120/59 (79) 100 04/27/19 04:00 30 04/27/19 04:00 Mechanical Ventilator 04/27/19 04:00 96 04/27/19 04:00 98.0 97 19 115/70 (85) 100 04/27/19 03:00 88 19 110/60 (77) 100 04/27/19 02:50 84 20 30 04/27/19 02:00 89 19 128/72 (90) 100 04/27/19 01:26 85 21 30 04/27/19 01:00 87 19 112/61 (78) 100 04/27/19 00:00 93 04/27/19 00:00 Mechanical Ventilator 04/27/19 00:00 30 04/27/19 00:00 98.8 93 18 111/59 (76) 100 04/26/19 23:15 90 20 30 04/26/19 23:00 91 19 126/69 (88) 98 04/26/19 22:00 89 19 125/70 (88) 98 04/26/19 21:04 83 21 30 04/26/19 21:00 84 20 136/72 (93) 98 04/26/19 20:00 99.9 84 17 135/64 (87) 99 04/26/19 20:00 Mechanical Ventilator 04/26/19 20:00 30 04/26/19 20:00 82 04/26/19 19:00 84 23 152/76 (101) 100 04/26/19 18:44 85 23 30 04/26/19 18:00 88 22 154/78 (103) 99 04/26/19 17:00 88 21 142/71 (94) 99 04/26/19 16:53 84 25 30 04/26/19 16:00 Mechanical Ventilator 04/26/19 16:00 82 04/26/19 16:00 99.4 86 20 121/61 (81) 100 04/26/19 16:00 30 04/26/19 15:00 87 21 121/70 (87) 100 04/26/19 14:53 88 20 30 04/26/19 14:00 89 21 118/66 (83) 100 04/26/19 13:12 84 18 30 04/26/19 13:00 88 18 113/63 (80) 100 Intake and Output 04/26/19 04/27/19 19:00 07:00 Intake Total 1130 ml 1170 ml Output Total 420 ml 600 ml Balance 710 ml 570 ml Free Water 300 ml 450 ml IV Total 110 ml Tube Feeding 720 ml 720 ml Output Urine Total 420 ml 550 ml Stool Total 50 ml Laboratory Tests Test 04/27/19 05:49 04/27/19 10:00 White Blood Count 12.4 K/UL (4.8-10.8) H Red Blood Count 2.86 M/UL (4.20-5.40) L Hemoglobin 8.2 G/DL (12.0-16.0) L Hematocrit 25.1 % (37.0-47.0) L Mean Corpuscular Volume 88 FL (80-99) Mean Corpuscular Hemoglobin 28.6 PG (27.0-31.0) Mean Corpuscular Hemoglobin Concent 32.5 G/DL (32.0-36.0) Red Cell Distribution Width 14.6 % (11.6-14.8) Platelet Count 170 K/UL (150-450) Mean Platelet Volume 7.6 FL (6.5-10.1) Neutrophils (%) (Auto) 78.9 % (45.0-75.0) H Lymphocytes (%) (Auto) 13.4 % (20.0-45.0) L Monocytes (%) (Auto) 5.9 % (1.0-10.0) Eosinophils (%) (Auto) 1.5 % (0.0-3.0) Basophils (%) (Auto) 0.3 % (0.0-2.0) Sodium Level 140 MMOL/L (136-145) Potassium Level 6.0 MMOL/L (3.5-5.1) *H 5.7 MMOL/L (3.5-5.1) H Chloride Level 109 MMOL/L (98-107) H Carbon Dioxide Level 20 MMOL/L (21-32) L Anion Gap 11 mmol/L (5-15) Blood Urea Nitrogen 52 mg/dL (7-18) H Creatinine 1.8 MG/DL (0.55-1.30) H Estimat Glomerular Filtration Rate mL/min (>60) Glucose Level 223 MG/DL (74-106) H Calcium Level 8.5 MG/DL (8.5-10.1) Phosphorus Level 3.3 MG/DL (2.5-4.9) Magnesium Level 2.0 MG/DL (1.8-2.4) Total Bilirubin 0.3 MG/DL (0.2-1.0) Direct Bilirubin < 0.1 MG/DL (0.0-0.3) Aspartate Amino Transf (AST/SGOT) 39 U/L (15-37) H Alanine Aminotransferase (ALT/SGPT) 20 U/L (12-78) Alkaline Phosphatase 120 U/L (46-116) H Total Protein 5.8 G/DL (6.4-8.2) L Albumin 1.2 G/DL (3.4-5.0) L Height (Feet): 5 Height (Inches): 7.00 Weight (Pounds): 188 Medications Current Medications Medications (Trade) Dose Ordered Sig/Kenisha Route PRN Reason Start Time Stop Time Status Last Admin Dose Admin Acetaminophen (Tylenol) 650 mg Q4H PRN ORAL FEVER 04/17/19 12:36 05/17/19 12:35 04/25/19 23:56 Acetaminophen (Tylenol) 650 mg Q4H PRN RECTAL Fever 04/17/19 12:36 05/17/19 12:35 04/18/19 08:53 Cefepime HCl 1 gm/ Dextrose 55 ml @ 110 mls/hr Q24H IVPB 04/22/19 12:00 04/29/19 11:59 04/27/19 12:26 Chlorhexidine Gluconate (Izzy-Hex 2%) 1 applic DAILY@2000 TOPIC 04/20/19 20:00 05/20/19 19:59 04/26/19 20:12 Dextrose (Dextrose 50%) 25 ml Q30M PRN IV Hypoglycemia 04/17/19 12:45 05/12/19 19:44 Dextrose (Dextrose 50%) 50 ml Q30M PRN IV Hypoglycemia 04/17/19 12:45 05/12/19 19:44 Epoetin Bandar (Procrit (for non ESRD use)) 10,000 units FRI-FRI-FRI SUBQ 04/26/19 21:00 05/26/19 20:59 04/26/19 21:16 Folic Acid (Folate) 1 mg DAILY ORAL 04/26/19 09:00 05/19/19 08:59 04/27/19 09:43 Hydralazine HCl (Apresoline) 10 mg Q2H PRN IV For High Blood Pressure 04/17/19 12:36 05/17/19 12:35 Insulin Aspart (NovoLOG) Q6HR SUBQ 04/20/19 18:00 05/20/19 17:59 04/27/19 12:36 Lansoprazole (Prevacid) 30 mg DAILY GT 04/22/19 09:00 05/22/19 08:59 04/27/19 09:43 Midodrine (Pro-Amatine) 5 mg THREE TIMES A DAY NG 04/27/19 13:00 05/21/19 12:59 Ondansetron HCl (Zofran) 4 mg Q6H PRN IVP Nausea & Vomiting 04/17/19 12:37 05/17/19 12:36 Polyethylene Glycol (Miralax) 17 gm DAILYPRN PRN ORAL Constipation 04/17/19 12:37 05/17/19 12:36 04/23/19 10:31 Assessment/Plan Problem List: (1) Respiratory distress Assessment & Plan: has been on vents support for near two weeks cannot wean and does not tolerate weaning trials trach indicated and recommended will obtain consent and schedule ICD Codes: R06.03 - Acute respiratory distress SNOMED: 803976159 (2) Malnutrition ICD Codes: E46 - Unspecified protein-calorie malnutrition SNOMED: 17164548 (3) UTI (urinary tract infection) ICD Codes: N39.0 - Urinary tract infection, site not specified SNOMED: 66383075 (4) Diabetic nephropathy ICD Codes: E11.21 - Type 2 diabetes mellitus with diabetic nephropathy SNOMED: 471496286 (5) Renal failure (ARF), acute on chronic ICD Codes: N17.9 - Acute kidney failure, unspecified; N18.9 - Chronic kidney disease, unspecified SNOMED: 752798834 (6) Anemia in chronic kidney disease (CKD) ICD Codes: N18.9 - Chronic kidney disease, unspecified; D63.1 - Anemia in chronic kidney disease SNOMED: 053487695 (7) Pulmonary hypertension ICD Codes: I27.20 - Pulmonary hypertension, unspecified SNOMED: 30752472 (8) Acute respiratory failure ICD Codes: J96.00 - Acute respiratory failure, unspecified whether with hypoxia or hypercapnia SNOMED: 02219487 (9) Respiratory failure ICD Codes: J96.90 - Respiratory failure, unspecified, unspecified whether with hypoxia or hypercapnia SNOMED: 420907024 Qualifiers: Qualified Codes: J96.02 - Acute respiratory failure with hypercapnia (10) Hypernatremia ICD Codes: E87.0 - Hyperosmolality and hypernatremia SNOMED: 846338204 (11) Sepsis Assessment & Plan: cont with current care trend labs will follow with recs ICD Codes: A41.9 - Sepsis, unspecified organism SNOMED: 65030169 (12) Pneumonia ICD Codes: J18.9 - Pneumonia, unspecified organism SNOMED: 415581555 Qualifiers: Qualified Codes: J18.9 - Pneumonia, unspecified organism (13) History of CVA (cerebrovascular accident) ICD Codes: Z86.73 - Personal history of transient ischemic attack (TIA), and cerebral infarction without residual deficits SNOMED: 392001975 (14) CAD (coronary artery disease) ICD Codes: I25.10 - Atherosclerotic heart disease of [place] coronary artery without angina pectoris SNOMED: 14675459 (15) Right hemiplegia ICD Codes: G81.91 - Hemiplegia, unspecified affecting right dominant side SNOMED: 664515062 (16) Diabetes mellitus ICD Codes: E11.9 - Type 2 diabetes mellitus without complications SNOMED: 44093221 (17) Hypertensive heart disease ICD Codes: I11.9 - Hypertensive heart disease without heart failure SNOMED: 57244960 (18) 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 ICD Codes: E11.22 - Type 2 diabetes mellitus with diabetic chronic kidney disease; N18.4 - Chronic kidney disease, stage 4 (severe) SNOMED: 24336401, 810993965, 445288421 (19) Nosocomial pneumonia ICD Codes: J18.9 - Pneumonia, unspecified organism; Y95 - Nosocomial condition SNOMED: 434867362 (20) At high risk for aspiration ICD Codes: Z91.89 - Other specified personal risk factors, not elsewhere classified SNOMED: 410203438 (21) Acute metabolic encephalopathy ICD Codes: G93.41 - Metabolic encephalopathy SNOMED: 27105720, 505302151 Devaughn Marin Apr 27, 2019 12:46
--- NOTE | 2019-04-27 13:09 | NUR ---
NURSE NOTES: Left a message to pt's son, Cezar Sage, regarding consent for tracheostomy and bronchoscopy, awaiting for call back.
--- NOTE | 2019-04-27 14:30 | NUR ---
NURSE NOTES: Patient's son, Cezar Sage, at bedside. Consent for tracheostomy and bronchoscopy signed by the son.
--- NOTE | 2019-04-27 16:45 | Progress Note ---
DATE: 04/27/2019 SUBJECTIVE: This is a 79-year-old female with sepsis. She has got confusion, disorganized thought process, and decline in cognition below her baseline. That is why her attending physician has requested daily psychiatric consultation. She is still confused, disorganized, and altered mental status. MENTAL STATUS EXAMINATION: This is a 79-year-old female. Appearance is disheveled. Attitude, irritable and agitated. Affect, guarded and restricted. Intellect, poor. Mood, depressed and anxious. Motor activity, psychomotor agitation. Attention span is poor. Orientation x2. Speech is low volume, slurred. Thought process is disorganized and illogical. Insight and judgment is poor. DIAGNOSIS: Major depressive disorder, mild, recurrent with psychotic features. PLAN: Continue to control agitation and anxiety with Ativan 2 mg IV q.4 h. as needed. 20 minutes of behavioral management therapy provided. Chart reviewed. Discussed with staff. Seen and assessed in the ICU. Omar Glover M.D. DR: RELL JOB#: [id number] CC:
--- NOTE | 2019-04-27 16:50 | NUR ---
NURSE NOTES: Patient resting in bed comfortably. no acute distress noted. VSS. Fraga cath and rectal tube intact and patient. Tube feeding ongoing at 60ml/hr. Patient kept clean and dry.
--- NOTE | 2019-04-27 17:42 | NUR ---
NURSE NOTES: Per Dr. Marin, Trach and bronchoscopy not scheduled tomorrow, pending schedule.
--- NOTE | 2019-04-27 19:07 | NUR ---
HAND-OFF: Report given to HORTENCIA Yun.
--- NOTE | 2019-04-27 19:16 | Cardiac Electrophysiology PN ---
Assessment/Plan Assessment/Plan 1. Atrial flutter, self terminated. Off AVN jose for low BP 2. Hypotension. On Midodrine 10 tid 3. Coronary artery disease. On Plavix 75 mg daily 4. Respiratory failure, intubated EF 60%. Tracheostomy pending. 5. Sepsis. White count 25,000. On IV abx improved to 13K 6. Anemia.S/P PRBC. 7. Renal failure BUN/Cr improved to 38/1.[address] Spivey 8. Dysphagia. S/P PEG 04/22/19 9. History of CVA with hemiplegia. 10. Nonverbal status. 11. Full code DW RN Subjective Subjective Intubated in ICU.S/P PEG. Off pressors. S/P PRBC . Tracheostomy pending Objective Last 24 Hour Vital Signs Date Time Temp Pulse Resp B/P (MAP) Pulse Ox O2 Delivery O2 Flow Rate FiO2 04/27/19 19:00 97 22 126/71 (89) 99 04/27/19 18:00 99 17 134/80 (98) 97 04/27/19 17:20 98 16 30 04/27/19 17:00 88 20 133/66 (88) 100 04/27/19 16:00 98.7 80 20 126/63 (84) 100 04/27/19 16:00 30 04/27/19 16:00 99 04/27/19 16:00 Mechanical Ventilator 04/27/19 15:21 91 18 30 04/27/19 15:00 86 23 129/70 (89) 100 04/27/19 14:00 99 21 133/62 (85) 100 04/27/19 13:19 93 21 30 04/27/19 13:00 91 17 110/54 (72) 100 04/27/19 12:00 92 04/27/19 12:00 98.8 97 18 132/65 (87) 100 04/27/19 12:00 30 04/27/19 12:00 Mechanical Ventilator 04/27/19 11:11 78 16 30 04/27/19 11:00 98 16 110/54 (72) 98 04/27/19 10:00 98 21 120/74 (89) 04/27/19 09:49 85 16 30 04/27/19 09:00 93 23 126/59 (81) 95 04/27/19 08:00 98.8 88 21 124/66 (85) 94 04/27/19 08:00 30 04/27/19 08:00 96 04/27/19 08:00 Mechanical Ventilator 04/27/19 07:17 85 16 30 04/27/19 07:16 84 16 98 Mechanical Ventilator 30 04/27/19 07:00 89 19 114/62 (79) 100 04/27/19 06:00 91 19 118/59 (78) 100 04/27/19 05:14 87 20 30 04/27/19 05:00 88 19 120/59 (79) 100 04/27/19 04:00 30 04/27/19 04:00 Mechanical Ventilator 04/27/19 04:00 96 04/27/19 04:00 98.0 97 19 115/70 (85) 100 04/27/19 03:00 88 19 110/60 (77) 100 04/27/19 02:50 84 20 30 04/27/19 02:00 89 19 128/72 (90) 100 04/27/19 01:26 85 21 30 04/27/19 01:00 87 19 112/61 (78) 100 04/27/19 00:00 93 04/27/19 00:00 Mechanical Ventilator 04/27/19 00:00 30 04/27/19 00:00 98.8 93 18 111/59 (76) 100 04/26/19 23:15 90 20 30 04/26/19 23:00 91 19 126/69 (88) 98 04/26/19 22:00 89 19 125/70 (88) 98 04/26/19 21:04 83 21 30 04/26/19 21:00 84 20 136/72 (93) 98 04/26/19 20:00 99.9 84 17 135/64 (87) 99 04/26/19 20:00 Mechanical Ventilator 04/26/19 20:00 30 04/26/19 20:00 82 Intake and Output 04/26/19 04/27/19 19:00 07:00 Intake Total 1130 ml 1170 ml Output Total 420 ml 600 ml Balance 710 ml 570 ml Free Water 300 ml 450 ml IV Total 110 ml Tube Feeding 720 ml 720 ml Output Urine Total 420 ml 550 ml Stool Total 50 ml Laboratory Tests Test 04/27/19 05:49 04/27/19 10:00 White Blood Count 12.4 K/UL (4.8-10.8) H Red Blood Count 2.86 M/UL (4.20-5.40) L Hemoglobin 8.2 G/DL (12.0-16.0) L Hematocrit 25.1 % (37.0-47.0) L Mean Corpuscular Volume 88 FL (80-99) Mean Corpuscular Hemoglobin 28.6 PG (27.0-31.0) Mean Corpuscular Hemoglobin Concent 32.5 G/DL (32.0-36.0) Red Cell Distribution Width 14.6 % (11.6-14.8) Platelet Count 170 K/UL (150-450) Mean Platelet Volume 7.6 FL (6.5-10.1) Neutrophils (%) (Auto) 78.9 % (45.0-75.0) H Lymphocytes (%) (Auto) 13.4 % (20.0-45.0) L Monocytes (%) (Auto) 5.9 % (1.0-10.0) Eosinophils (%) (Auto) 1.5 % (0.0-3.0) Basophils (%) (Auto) 0.3 % (0.0-2.0) Sodium Level 140 MMOL/L (136-145) Potassium Level 6.0 MMOL/L (3.5-5.1) *H 5.7 MMOL/L (3.5-5.1) H Chloride Level 109 MMOL/L (98-107) H Carbon Dioxide Level 20 MMOL/L (21-32) L Anion Gap 11 mmol/L (5-15) Blood Urea Nitrogen 52 mg/dL (7-18) H Creatinine 1.8 MG/DL (0.55-1.30) H Estimat Glomerular Filtration Rate mL/min (>60) Glucose Level 223 MG/DL (74-106) H Calcium Level 8.5 MG/DL (8.5-10.1) Phosphorus Level 3.3 MG/DL (2.5-4.9) Magnesium Level 2.0 MG/DL (1.8-2.4) Total Bilirubin 0.3 MG/DL (0.2-1.0) Direct Bilirubin < 0.1 MG/DL (0.0-0.3) Aspartate Amino Transf (AST/SGOT) 39 U/L (15-37) H Alanine Aminotransferase (ALT/SGPT) 20 U/L (12-78) Alkaline Phosphatase 120 U/L (46-116) H Total Protein 5.8 G/DL (6.4-8.2) L Albumin 1.2 G/DL (3.4-5.0) L Objective HEAD AND NECK: No JVD. Orally intubated LUNGS: Coarse rhonchi bilaterally. CARDIOVASCULAR: Regular S1 and S2 with no gallop. ABDOMEN: Soft.PEG in place EXTREMITIES: No pitting edema. Claude Pena MD Apr 27, 2019 19:16
--- NOTE | 2019-04-27 19:30 | NUR ---
NURSE NOTES: Recvd.on a Vent.orally intubated.See settings.Lungs Few scatt.Rh.Diminished BS at Bases.Sat.99%.Suctioned,NS Lavaged.See V/S.Scope SR.Pos. chg.Made comfortable.Eyes open with good eye contact,does'nt Follows command.Hx;CVA.(R) side Flaccid LEFT arm on soft wrist restraints prev.self-inj.GT-Feeding in progress.F/Cath patent diuresis suff.See I/O.
[2019-04-27] MEDS: Dyna-Hex 2% Top Sol 2oz TOPIC SCH (19:54)
--- NOTE | 2019-04-27 22:30 | NUR ---
NURSE NOTES: HS Care rendered.Pos.chg.Backrub with Lotion.Suctioned.Due senior media planner.No Distress.
[2019-04-28] VITALS (26 sets, daily range): BP systolic 106–141; BP diastolic 56–73
--- NOTE | 2019-04-28 00:10 | NUR ---
NURSE NOTES: Pos.chg.Suctioned.P.Ox-99%.See V/S.Scope Rhythm same.[id number] covered.No Distress.
--- NOTE | 2019-04-28 02:10 | NUR ---
NURSE NOTES: Repositioned,Suctioned.Status same.Cont.Plan of care.
--- NOTE | 2019-04-28 04:39 | NUR ---
NURSE NOTES: Blood drawn for cbc/cmp/Bnp etc.spec.to Lab.marcio Murdock chg.Lacy.Vent.settings.Sat.98-100%.Suctioned.No Distress.Cont.Plan of care.
[2019-04-28 05:02] LABS: HEMATOCRIT 23.6 % (37.0-47.0); HEMOGLOBIN 7.6 G/DL (12.0-16.0); MEAN CORPUSCULAR VOLUME 88 FL (80-99); PLATELET COUNT 170 K/UL (150-450); RED BLOOD COUNT 2.69 M/UL (4.20-5.40); RED CELL DISTRIBUTION WIDTH 14.7 % (11.6-14.8); WHITE BLOOD COUNT 11.7 K/UL (4.8-10.8)
[2019-04-28 05:35] LABS: ALANINE AMINOTRANSFERASE 17 U/L (12-78); ALBUMIN 1.2 G/DL (3.4-5.0); ALBUMIN/GLOBULIN RATIO 0.2 (1.0-2.7); ALKALINE PHOSPHATASE 120 U/L (46-116); ANION GAP 8 mmol/L (5-15); ASPARTATE AMINO TRANSFERASE 46 U/L (15-37); BILIRUBIN,TOTAL 0.2 MG/DL (0.2-1.0); BLOOD UREA NITROGEN 51 mg/dL (7-18); CALCIUM 8.4 MG/DL (8.5-10.1); CARBON DIOXIDE 25 MMOL/L (21-32); CHLORIDE 109 MMOL/L (98-107); CREATININE 1.8 MG/DL (0.55-1.30); PHOSPHORUS 3.5 MG/DL (2.5-4.9); POTASSIUM 5.3 MMOL/L (3.5-5.1); SODIUM 142 MMOL/L (136-145)
[2019-04-28] MEDS: NovoLOG Insulin Flexpen SUBQ SCH ×5 (06:09→23:40)
--- NOTE | 2019-04-28 07:00 | NUR ---
RESPIRATORY NOTE: Patient received mechanically ventilated on PB 840 with current ordered vent settings. Patient is orally intubated, Vent alarms are functional and audible. No distress whatsoever noted at this time. There is an ambu bag available at the bedside and the vent is connected to a red outlet. Will continue to monitor.
--- NOTE | 2019-04-28 07:19 | NUR ---
HAND-OFF: Report given to HORTENCIA CALERO.
--- NOTE | 2019-04-28 07:44 | NUR ---
NURSE NOTES: Report received Jama BURNETT. Pt awake, eyes open, doesnt follow commands. Pt on laboratory monitor, SR. Pt orally intubated ETT 7.5, 23 cm, AC 10, TV 500, 30%, PEEP5. OGT to glucerna 1.2 at 60 cc/hr. Fraga noted and intact draining clear, yellow urine. Rectal tube noted and intact with brown liquid stool to gravity. SUZIE PICC with TKO. Left wrist with soft restraint. Safety measures in place with bed locked and in lowest position, side rails x3 up and bed alarm on. Will continue to monitor and continue plan of care.
[2019-04-28] MEDS ORDERED: Sodium Polystyrene Sulfonate 15gm Powder NG SCH (08:15)
[2019-04-28] MEDS: Midodrine 10mg tab NG SCH ×3 (08:24→17:43)
--- NOTE | 2019-04-28 08:45 | Neurology Progress Note ---
Interim History Interim History ROS Limited/Unobtainable: Yes Complaints: AMS Events: Weaning attempts unsuccessful, PEG placed/awaiting Trach Interim History Remains on vent, eyes open, tracks to noise but does not follow commands Objective Physical Exam Last Vital Signs Date Time Temp Pulse Resp B/P (MAP) Pulse Ox O2 Delivery O2 Flow Rate FiO2 04/28/19 08:00 Mechanical Ventilator 04/28/19 08:00 30 04/28/19 07:15 97 19 04/28/19 07:00 122/66 (84) 98 04/28/19 04:00 98.7 Laboratory Tests Test 04/27/19 10:00 04/28/19 04:30 Potassium Level 5.7 MMOL/L (3.5-5.1) H 5.3 MMOL/L (3.5-5.1) H White Blood Count 11.7 K/UL (4.8-10.8) H Red Blood Count 2.69 M/UL (4.20-5.40) L Hemoglobin 7.6 G/DL (12.0-16.0) L Hematocrit 23.6 % (37.0-47.0) L Mean Corpuscular Volume 88 FL (80-99) Mean Corpuscular Hemoglobin 28.3 PG (27.0-31.0) Mean Corpuscular Hemoglobin Concent 32.2 G/DL (32.0-36.0) Red Cell Distribution Width 14.7 % (11.6-14.8) Platelet Count 170 K/UL (150-450) Mean Platelet Volume 6.5 FL (6.5-10.1) Neutrophils (%) (Auto) % (45.0-75.0) Lymphocytes (%) (Auto) % (20.0-45.0) Monocytes (%) (Auto) % (1.0-10.0) Eosinophils (%) (Auto) % (0.0-3.0) Basophils (%) (Auto) % (0.0-2.0) Sodium Level 142 MMOL/L (136-145) Chloride Level 109 MMOL/L (98-107) H Carbon Dioxide Level 25 MMOL/L (21-32) Anion Gap 8 mmol/L (5-15) Blood Urea Nitrogen 51 mg/dL (7-18) H Creatinine 1.8 MG/DL (0.55-1.30) H Estimat Glomerular Filtration Rate mL/min (>60) Glucose Level 212 MG/DL (74-106) H Uric Acid 4.3 MG/DL (2.6-7.2) Calcium Level 8.4 MG/DL (8.5-10.1) L Phosphorus Level 3.5 MG/DL (2.5-4.9) Magnesium Level 1.9 MG/DL (1.8-2.4) Total Bilirubin 0.2 MG/DL (0.2-1.0) Aspartate Amino Transf (AST/SGOT) 46 U/L (15-37) H Alanine Aminotransferase (ALT/SGPT) 17 U/L (12-78) Alkaline Phosphatase 120 U/L (46-116) H C-Reactive Protein, Quantitative 23.5 mg/dL (0.00-0.90) H Pro-B-Type Natriuretic Peptide 94114 pg/mL (0-125) H Total Protein 6.4 G/DL (6.4-8.2) Albumin 1.2 G/DL (3.4-5.0) L Globulin 5.2 g/dL Albumin/Globulin Ratio 0.2 (1.0-2.7) L General: well developed, well nourished, no acute distress Head: normocophalic Neck: no rigidity EENT: benign Neurologic Exam Mental Status: awake, other Speech: other Language: other Cranial Nerve II: fundus normal, visual cruz, no papilledema, other Cranial Nerves III, IV, : PERRLA, EOMI, other Cranial Nerve V: other Cranial Nerve VII: other Cranial Nerve VIII: other Cranial Nerve IX: other Cranial Nerve XI: other Cranial Nerve XII: other Motor System: other Sensory: other Coordination: other Gait: other Objective Not following commands Moving all 4 ext spontaneously CN intact Impression/Recommendations Problems: (1) Respiratory distress (2) Malnutrition (3) UTI (urinary tract infection) (4) Diabetic nephropathy (5) Renal failure (ARF), acute on chronic (6) Anemia in chronic kidney disease (CKD) (7) Pulmonary hypertension (8) Acute respiratory failure (9) Respiratory failure (10) Hypernatremia (11) Sepsis (12) Pneumonia (13) History of CVA (cerebrovascular accident) (14) CAD (coronary artery disease) (15) Right hemiplegia (16) Diabetes mellitus (17) Hypertensive heart disease (18) 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 (19) Nosocomial pneumonia (20) At high risk for aspiration (21) Acute metabolic encephalopathy Status: unchanged Recommendations Cont current management Wean to extubate map > 65 neuro exam non focal - monitor dw icu nurse Geo Espitia MD Apr 28, 2019 08:45
--- NOTE | 2019-04-28 09:02 | General Progress Note ---
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 ICD Codes: E11.22 - Type 2 diabetes mellitus with diabetic chronic kidney disease; N18.4 - Chronic kidney disease, stage 4 (severe) SNOMED: 79750231, 585187849, 235911186 (7) Respiratory failure ICD Codes: J96.90 - Respiratory failure, unspecified, unspecified whether with hypoxia or hypercapnia SNOMED: 471008657 Qualifiers: Qualified Codes: J96.02 - Acute respiratory failure with hypercapnia Status: unchanged Assessment/Plan: pt diet abx o2 pulm tx neuro psyc eval cbc bmp am ltach eval Subjective Constitutional: Reports: weakness Allergies: Coded Allergies: No Known Allergies (Unverified , 04/12/19) All Systems: reviewed and negative except above Subjective intubated in icu Objective Last 24 Hour Vital Signs Date Time Temp Pulse Resp B/P (MAP) Pulse Ox O2 Delivery O2 Flow Rate FiO2 04/28/19 08:00 100.0 88 17 114/58 (76) 98 04/28/19 08:00 Mechanical Ventilator 04/28/19 08:00 87 04/28/19 08:00 30 04/28/19 07:15 97 19 30 04/28/19 07:00 97 16 122/66 (84) 98 04/28/19 06:00 92 16 113/60 (77) 98 04/28/19 05:09 96 18 30 04/28/19 05:00 88 19 123/67 (85) 98 04/28/19 04:00 104 04/28/19 04:00 Mechanical Ventilator 04/28/19 04:00 98.7 104 19 141/72 (95) 98 04/28/19 04:00 30 04/28/19 03:24 101 19 30 04/28/19 03:00 95 18 127/71 (89) 98 04/28/19 02:00 97 19 127/66 (86) 98 04/28/19 01:30 102 20 30 04/28/19 01:00 93 17 120/64 (82) 98 04/28/19 00:00 98.6 91 16 129/68 (88) 99 04/28/19 00:00 30 04/28/19 00:00 91 04/28/19 00:00 Mechanical Ventilator 04/27/19 23:00 90 16 126/63 (84) 99 04/27/19 22:45 99 16 30 04/27/19 22:00 99 22 123/65 (84) 98 04/27/19 21:00 99 16 134/67 (89) 98 04/27/19 20:39 99 16 30 04/27/19 20:00 98 04/27/19 20:00 98.3 98 17 137/78 (97) 99 04/27/19 20:00 Mechanical Ventilator 04/27/19 20:00 30 04/27/19 19:47 93 21 30 04/27/19 19:00 97 22 126/71 (89) 99 04/27/19 18:00 99 17 134/80 (98) 97 04/27/19 17:20 98 16 30 04/27/19 17:00 88 20 133/66 (88) 100 04/27/19 16:00 98.7 80 20 126/63 (84) 100 04/27/19 16:00 30 04/27/19 16:00 99 04/27/19 16:00 Mechanical Ventilator 04/27/19 15:21 91 18 30 04/27/19 15:00 86 23 129/70 (89) 100 04/27/19 14:00 99 21 133/62 (85) 100 04/27/19 13:19 93 21 30 04/27/19 13:00 91 17 110/54 (72) 100 04/27/19 12:00 92 04/27/19 12:00 98.8 97 18 132/65 (87) 100 04/27/19 12:00 30 04/27/19 12:00 Mechanical Ventilator 04/27/19 11:11 78 16 30 04/27/19 11:00 98 16 110/54 (72) 98 04/27/19 10:00 98 21 120/74 (89) 04/27/19 09:49 85 16 30 Intake and Output 04/27/19 04/28/19 19:00 07:00 Intake Total 1075 ml 920 ml Output Total 670 ml 710 ml Balance 405 ml 210 ml Free Water 300 ml 200 ml IV Total 55 ml Tube Feeding 720 ml 720 ml Output Urine Total 570 ml 570 ml Stool Total 100 ml 140 ml Laboratory Tests 04/27/19 10:00: Potassium Level 5.7H 04/28/19 04:30: Potassium Level 5.3H, White Blood Count 11.7H, Red Blood Count 2.69L, Hemoglobin 7.6L, Hematocrit 23.6L, Mean Corpuscular Volume 88, Mean Corpuscular Hemoglobin 28.3, Mean Corpuscular Hemoglobin Concent 32.2, Red Cell Distribution Width 14.7, Platelet Count 170, Mean Platelet Volume 6.5, Neutrophils (%) (Auto) , Lymphocytes (%) (Auto) , Monocytes (%) (Auto) , Eosinophils (%) (Auto) , Basophils (%) (Auto) , Sodium Level 142, Chloride Level 109H, Carbon Dioxide Level 25, Anion Gap 8, Blood Urea Nitrogen 51H, Creatinine 1.8H, Estimat Glomerular Filtration Rate , Glucose Level 212H, Uric Acid 4.3, Calcium Level 8.4L, Phosphorus Level 3.5, Magnesium Level 1.9, Total Bilirubin 0.2, Aspartate Amino Transf (AST/SGOT) 46H, Alanine Aminotransferase ( ALT/SGPT) 17, Alkaline Phosphatase 120H, C-Reactive Protein, Quantitative 23.5H , Pro-B-Type Natriuretic Peptide 36802T, Total Protein 6.4, Albumin 1.2L, Globulin 5.2, Albumin/Globulin Ratio 0.2L Height (Feet): 5 Height (Inches): 7.00 Weight (Pounds): 188 General Appearance: lethargic EENT: normal ENT inspection Neck: normal alignment Cardiovascular: normal peripheral pulses, normal rate, regular rhythm Respiratory/Chest: chest wall non-tender, lungs clear, normal breath sounds Abdomen: normal bowel sounds, non tender, soft Extremities: normal inspection Edema: no edema noted Arm (L), no edema noted Arm (R), no edema noted Leg (L), no edema noted Leg (R), no edema noted Pedal (L), no edema noted Pedal (R), no edema noted Generalized Neurologic: motor weakness Skin: normal pigmentation, warm/dry Jama Keating DO Apr 28, 2019 09:02
--- NOTE | 2019-04-28 09:45 | Nephrology Progress Note ---
Assessment/Plan Problem List: (1) Renal failure (ARF), acute on chronic (2) Diabetic nephropathy (3) Sepsis (4) Pneumonia (5) Right hemiplegia (6) Anemia in chronic kidney disease (CKD) (7) Pulmonary hypertension Assessment intubated Renal failure; - Pre Renal - ? Underlying Renal Anemia Pneumonia / respiratory failure Sepsis elevated Troponin UTI HyperGlycemia / DM Right Esvin HTN Plan kayexelate as needed discussed with RN transfuse for low Hgb as needed K Phos IV as needed venofer Folate 24 H urine protein check 2.4 gram Fraga Hydrate BP and BS control urine studies slow hydrate kidney MAIKEL results noted: No Gilbert 2D echo Noted visualized except distal setum and inferiro wall hypokinesis Left ventricular ejection fraction estimated to be 55-60 %. avoid Nephrotoxics per orders Subjective ROS Limited/Unobtainable: Yes Objective Objective Last 24 Hour Vital Signs Date Time Temp Pulse Resp B/P (MAP) Pulse Ox O2 Delivery O2 Flow Rate FiO2 04/28/19 09:07 97 16 30 04/28/19 09:00 86 16 116/64 (81) 97 04/28/19 08:00 100.0 88 17 114/58 (76) 98 04/28/19 08:00 Mechanical Ventilator 04/28/19 08:00 87 04/28/19 08:00 30 04/28/19 07:15 97 19 30 04/28/19 07:00 97 16 122/66 (84) 98 04/28/19 06:00 92 16 113/60 (77) 98 04/28/19 05:09 96 18 30 04/28/19 05:00 88 19 123/67 (85) 98 04/28/19 04:00 104 04/28/19 04:00 Mechanical Ventilator 04/28/19 04:00 98.7 104 19 141/72 (95) 98 04/28/19 04:00 30 04/28/19 03:24 101 19 30 04/28/19 03:00 95 18 127/71 (89) 98 04/28/19 02:00 97 19 127/66 (86) 98 04/28/19 01:30 102 20 30 04/28/19 01:00 93 17 120/64 (82) 98 04/28/19 00:00 98.6 91 16 129/68 (88) 99 04/28/19 00:00 30 04/28/19 00:00 91 04/28/19 00:00 Mechanical Ventilator 04/27/19 23:00 90 16 126/63 (84) 99 04/27/19 22:45 99 16 30 04/27/19 22:00 99 22 123/65 (84) 98 04/27/19 21:00 99 16 134/67 (89) 98 04/27/19 20:39 99 16 30 04/27/19 20:00 98 04/27/19 20:00 98.3 98 17 137/78 (97) 99 04/27/19 20:00 Mechanical Ventilator 04/27/19 20:00 30 04/27/19 19:47 93 21 30 04/27/19 19:00 97 22 126/71 (89) 99 04/27/19 18:00 99 17 134/80 (98) 97 04/27/19 17:20 98 16 30 04/27/19 17:00 88 20 133/66 (88) 100 04/27/19 16:00 98.7 80 20 126/63 (84) 100 04/27/19 16:00 30 04/27/19 16:00 99 04/27/19 16:00 Mechanical Ventilator 04/27/19 15:21 91 18 30 04/27/19 15:00 86 23 129/70 (89) 100 04/27/19 14:00 99 21 133/62 (85) 100 04/27/19 13:19 93 21 30 04/27/19 13:00 91 17 110/54 (72) 100 04/27/19 12:00 92 04/27/19 12:00 98.8 97 18 132/65 (87) 100 04/27/19 12:00 30 04/27/19 12:00 Mechanical Ventilator 04/27/19 11:11 78 16 30 04/27/19 11:00 98 16 110/54 (72) 98 04/27/19 10:00 98 21 120/74 (89) 04/27/19 09:49 85 16 30 Intake and Output 04/27/19 04/28/19 19:00 07:00 Intake Total 1075 ml 920 ml Output Total 670 ml 710 ml Balance 405 ml 210 ml Free Water 300 ml 200 ml IV Total 55 ml Tube Feeding 720 ml 720 ml Output Urine Total 570 ml 570 ml Stool Total 100 ml 140 ml Laboratory Tests 04/27/19 10:00: Potassium Level 5.7H 04/28/19 04:30: Potassium Level 5.3H, White Blood Count 11.7H, Red Blood Count 2.69L, Hemoglobin 7.6L, Hematocrit 23.6L, Mean Corpuscular Volume 88, Mean Corpuscular Hemoglobin 28.3, Mean Corpuscular Hemoglobin Concent 32.2, Red Cell Distribution Width 14.7, Platelet Count 170, Mean Platelet Volume 6.5, Neutrophils (%) (Auto) , Lymphocytes (%) (Auto) , Monocytes (%) (Auto) , Eosinophils (%) (Auto) , Basophils (%) (Auto) , Sodium Level 142, Chloride Level 109H, Carbon Dioxide Level 25, Anion Gap 8, Blood Urea Nitrogen 51H, Creatinine 1.8H, Estimat Glomerular Filtration Rate , Glucose Level 212H, Uric Acid 4.3, Calcium Level 8.4L, Phosphorus Level 3.5, Magnesium Level 1.9, Total Bilirubin 0.2, Aspartate Amino Transf (AST/SGOT) 46H, Alanine Aminotransferase ( ALT/SGPT) 17, Alkaline Phosphatase 120H, C-Reactive Protein, Quantitative 23.5H , Pro-B-Type Natriuretic Peptide 08148B, Total Protein 6.4, Albumin 1.2L, Globulin 5.2, Albumin/Globulin Ratio 0.2L Height (Feet): 5 Height (Inches): 7.00 Weight (Pounds): 188 General Appearance: no apparent distress EENT: other - vented Cardiovascular: tachycardia Respiratory/Chest: decreased breath sounds Abdomen: distended Wally Spivey MD Apr 28, 2019 09:45
[2019-04-28] MEDS ORDERED: NS 275ml ONE (09:51)
--- NOTE | 2019-04-28 09:54 | NUR ---
NURSE NOTES: Dr Spivey here to see pt. ordered kayexalate to be given per GT. Dr Espitia here to see pt. says pt doesnt follow commands but eye do track. VSS. Will continue to monitor.
--- NOTE | 2019-04-28 10:00 | NUR ---
CASE MANAGEMENT:REVIEW 04/27/2019 SI: ACUTE RESPIRATORY FAILURE ENCEPHALOPATHY. PNA T 98.3 HR 98 RR 17 B/P 137/78 SATS 99% ON MECH VENT FIO2 30 WBC 12.4 K 6 CL 109 CO2 20 BUN 52 CR 1.8 GLU 223 IS: IV CEFEPIME Q24 EPOETIN SQ MWF : ICU STATUS INTUBATED DCP: FROM [facility] PLAN OF CARE: OBTAIN CONSENT FOR TRACH AND BRONCH 04/28/2019 SI: ACUTE RESPIRATORY FAILURE ENCEPHALOPATHY. PNA T 100 HR 88 RR 17 B/P 114/58 SATS 98% ON MECH VENT FiO2 30 WBC 11.7 HGB 7.6 HCT 23.6 K 5.3 CL 109 BUN 51 CR 1.8 GLU 212 CA 8.4 AST 46 ALP 120 BNP 18767 IS: IV CEFEPIME Q24 EPOETIN SQ MWF : ICU STATUS INTUBATED DCP: FROM [facility] PLAN OF CARE: CONSENT OBTAINED FROM SON FOR TRACH AND BRONCH >> PT NOT STABLE PER SURGEON
--- NOTE | 2019-04-28 10:07 | NUR ---
INSURANCE CLINICALS AND REVIEWS FAXED TO [facility] T: [phone] F:[phone]
--- NOTE | 2019-04-28 10:31 | General Progress Note ---
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 ICD Codes: E11.22 - Type 2 diabetes mellitus with diabetic chronic kidney disease; N18.4 - Chronic kidney disease, stage 4 (severe) SNOMED: 98372780, 393347764, 923403269 (3) Diabetes mellitus ICD Codes: E11.9 - Type 2 diabetes mellitus without complications SNOMED: 34383414 (4) CAD (coronary artery disease) ICD Codes: I25.10 - Atherosclerotic heart disease of [place] coronary artery without angina pectoris SNOMED: 15310086 (5) History of CVA (cerebrovascular accident) ICD Codes: Z86.73 - Personal history of transient ischemic attack (TIA), and cerebral infarction without residual deficits SNOMED: 027019288 (6) Anemia in chronic kidney disease (CKD) ICD Codes: N18.9 - Chronic kidney disease, unspecified; D63.1 - Anemia in chronic kidney disease SNOMED: 711938557 (7) Diabetic nephropathy ICD Codes: E11.21 - Type 2 diabetes mellitus with diabetic nephropathy SNOMED: 558206620 Status: unchanged Assessment/Plan: intubated GTF fu labs fu pulm recs prn blood transfusion ppi Subjective ROS Limited/Unobtainable: No Allergies: Coded Allergies: No Known Allergies (Unverified , 04/12/19) Objective Last 24 Hour Vital Signs Date Time Temp Pulse Resp B/P (MAP) Pulse Ox O2 Delivery O2 Flow Rate FiO2 04/28/19 10:00 89 16 111/57 (75) 97 04/28/19 09:07 97 16 30 04/28/19 09:00 86 16 116/64 (81) 97 04/28/19 08:00 100.0 88 17 114/58 (76) 98 04/28/19 08:00 Mechanical Ventilator 04/28/19 08:00 87 04/28/19 08:00 30 04/28/19 07:15 97 19 30 04/28/19 07:00 97 16 122/66 (84) 98 04/28/19 06:00 92 16 113/60 (77) 98 04/28/19 05:09 96 18 30 04/28/19 05:00 88 19 123/67 (85) 98 7/3/19 04:00 104 04/28/19 04:00 Mechanical Ventilator 04/28/19 04:00 98.7 104 19 141/72 (95) 98 04/28/19 04:00 30 04/28/19 03:24 101 19 30 04/28/19 03:00 95 18 127/71 (89) 98 04/28/19 02:00 97 19 127/66 (86) 98 04/28/19 01:30 102 20 30 04/28/19 01:00 93 17 120/64 (82) 98 04/28/19 00:00 98.6 91 16 129/68 (88) 99 04/28/19 00:00 30 04/28/19 00:00 91 04/28/19 00:00 Mechanical Ventilator 04/27/19 23:00 90 16 126/63 (84) 99 04/27/19 22:45 99 16 30 04/27/19 22:00 99 22 123/65 (84) 98 04/27/19 21:00 99 16 134/67 (89) 98 04/27/19 20:39 99 16 30 04/27/19 20:00 98 04/27/19 20:00 98.3 98 17 137/78 (97) 99 04/27/19 20:00 Mechanical Ventilator 04/27/19 20:00 30 04/27/19 19:47 93 21 30 04/27/19 19:00 97 22 126/71 (89) 99 04/27/19 18:00 99 17 134/80 (98) 97 04/27/19 17:20 98 16 30 04/27/19 17:00 88 20 133/66 (88) 100 04/27/19 16:00 98.7 80 20 126/63 (84) 100 04/27/19 16:00 30 04/27/19 16:00 99 04/27/19 16:00 Mechanical Ventilator 04/27/19 15:21 91 18 30 04/27/19 15:00 86 23 129/70 (89) 100 04/27/19 14:00 99 21 133/62 (85) 100 04/27/19 13:19 93 21 30 04/27/19 13:00 91 17 110/54 (72) 100 04/27/19 12:00 92 04/27/19 12:00 98.8 97 18 132/65 (87) 100 04/27/19 12:00 30 04/27/19 12:00 Mechanical Ventilator 04/27/19 11:11 78 16 30 04/27/19 11:00 98 16 110/54 (72) 98 Intake and Output 04/27/19 04/28/19 19:00 07:00 Intake Total 1075 ml 920 ml Output Total 670 ml 710 ml Balance 405 ml 210 ml Free Water 300 ml 200 ml IV Total 55 ml Tube Feeding 720 ml 720 ml Output Urine Total 570 ml 570 ml Stool Total 100 ml 140 ml Laboratory Tests 04/28/19 04:30: White Blood Count 11.7H, Red Blood Count 2.69L, Hemoglobin 7.6L, Hematocrit 23.6L, Mean Corpuscular Volume 88, Mean Corpuscular Hemoglobin 28.3, Mean Corpuscular Hemoglobin Concent 32.2, Red Cell Distribution Width 14.7, Platelet Count 170, Mean Platelet Volume 6.5, Neutrophils (%) (Auto) , Lymphocytes (%) ( Auto) , Monocytes (%) (Auto) , Eosinophils (%) (Auto) , Basophils (%) (Auto) , Sodium Level 142, Potassium Level 5.3H, Chloride Level 109H, Carbon Dioxide Level 25, Anion Gap 8, Blood Urea Nitrogen 51H, Creatinine 1.8H, Estimat Glomerular Filtration Rate , Glucose Level 212H, Uric Acid 4.3, Calcium Level 8.4L, Phosphorus Level 3.5, Magnesium Level 1.9, Total Bilirubin 0.2, Aspartate Amino Transf (AST/SGOT) 46H, Alanine Aminotransferase (ALT/SGPT) 17, Alkaline Phosphatase 120H, C-Reactive Protein, Quantitative 23.5H, Pro-B-Type Natriuretic Peptide 27998W, Total Protein 6.4, Albumin 1.2L, Globulin 5.2, Albumin/Globulin Ratio 0.2L Height (Feet): 5 Height (Inches): 7.00 Weight (Pounds): 188 General Appearance: no apparent distress EENT: normal ENT inspection Neck: supple Cardiovascular: normal rate Respiratory/Chest: decreased breath sounds Abdomen: normal bowel sounds, non tender, soft Extremities: non-tender Darron Gentile MD Apr 28, 2019 10:31
--- NOTE | 2019-04-28 10:34 | NUR ---
NURSE NOTES: Spoke to Dr Gentile about pt's status. No new orders. Will continue to monitor.
--- NOTE | 2019-04-28 11:10 | Pulmonolgy Critical Care Note ---
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 (7) Hypertensive heart disease (8) Right hemiplegia (9) History of CVA (cerebrovascular accident) (10) CAD (coronary artery disease) Respiratory: monitor respiratory rate, adjust FIO2, CXR Cardiac: continue to monitor HR/BP Renal: F/U I&O, keep IV fluid, check electrolytes Infectious Disease: check cultures Gastrointestinal: continue feedings/current rate Endocrine: monitor blood sugar Hematologic: monitor H/H, transfuse if hgb<8.5 Neurologic: PRN Ativan, keep patient comfortable Prophylaxis: Protonix Disposition: keep in ICU Notes Reviewed: parakeet raiser, renal Discussed with: consultants, top case assemblermajor account manager - Objective Last 24 Hour Vital Signs Date Time Temp Pulse Resp B/P (MAP) Pulse Ox O2 Delivery O2 Flow Rate FiO2 04/28/19 10:00 89 16 111/57 (75) 97 04/28/19 09:07 97 16 30 04/28/19 09:00 86 16 116/64 (81) 97 04/28/19 08:00 100.0 88 17 114/58 (76) 98 04/28/19 08:00 Mechanical Ventilator 04/28/19 08:00 87 04/28/19 08:00 30 04/28/19 07:15 97 19 30 04/28/19 07:00 97 16 122/66 (84) 98 04/28/19 06:00 92 16 113/60 (77) 98 04/28/19 05:09 96 18 30 04/28/19 05:00 88 19 123/67 (85) 98 04/28/19 04:00 104 04/28/19 04:00 Mechanical Ventilator 04/28/19 04:00 98.7 104 19 141/72 (95) 98 04/28/19 04:00 30 04/28/19 03:24 101 19 30 04/28/19 03:00 95 18 127/71 (89) 98 04/28/19 02:00 97 19 127/66 (86) 98 04/28/19 01:30 102 20 30 04/28/19 01:00 93 17 120/64 (82) 98 04/28/19 00:00 98.6 91 16 129/68 (88) 99 04/28/19 00:00 30 04/28/19 00:00 91 04/28/19 00:00 Mechanical Ventilator 04/27/19 23:00 90 16 126/63 (84) 99 04/27/19 22:45 99 16 30 04/27/19 22:00 99 22 123/65 (84) 98 04/27/19 21:00 99 16 134/67 (89) 98 04/27/19 20:39 99 16 30 04/27/19 20:00 98 04/27/19 20:00 98.3 98 17 137/78 (97) 99 04/27/19 20:00 Mechanical Ventilator 04/27/19 20:00 30 04/27/19 19:47 93 21 30 04/27/19 19:00 97 22 126/71 (89) 99 04/27/19 18:00 99 17 134/80 (98) 97 04/27/19 17:20 98 16 30 04/27/19 17:00 88 20 133/66 (88) 100 04/27/19 16:00 98.7 80 20 126/63 (84) 100 04/27/19 16:00 30 04/27/19 16:00 99 04/27/19 16:00 Mechanical Ventilator 04/27/19 15:21 91 18 30 04/27/19 15:00 86 23 129/70 (89) 100 04/27/19 14:00 99 21 133/62 (85) 100 04/27/19 13:19 93 21 30 04/27/19 13:00 91 17 110/54 (72) 100 04/27/19 12:00 92 04/27/19 12:00 98.8 97 18 132/65 (87) 100 04/27/19 12:00 30 04/27/19 12:00 Mechanical Ventilator 04/27/19 11:11 78 16 30 Status: sedated Condition: critical Neck: full ROM Lungs: clear Heart: HR/BP stable Abdomen: soft, active bowel sounds Extremities: no C/C/E Decubiti: location Accucheck: 199 Critical Care - Subjective ROS Limited/Unobtainable: No Condition: critical FI02: 30 Vent Support Breath Rate: 16 Vent Support Mode: AC Vent Tidal Volume: 500 Sputum Amount: Small PEEP: 5.0 PIP: 31 Tube Feeding Amount: 60 I&O: Intake and Output 04/27/19 04/28/19 19:00 07:00 Intake Total 1075 ml 920 ml Output Total 670 ml 710 ml Balance 405 ml 210 ml Free Water 300 ml 200 ml IV Total 55 ml Tube Feeding 720 ml 720 ml Output Urine Total 570 ml 570 ml Stool Total 100 ml 140 ml CXR: no change ET-Tube: 7.5 ET Position: 23 Labs: Laboratory Tests Test 04/28/19 04:30 White Blood Count 11.7 K/UL (4.8-10.8) H Red Blood Count 2.69 M/UL (4.20-5.40) L Hemoglobin 7.6 G/DL (12.0-16.0) L Hematocrit 23.6 % (37.0-47.0) L Mean Corpuscular Volume 88 FL (80-99) Mean Corpuscular Hemoglobin 28.3 PG (27.0-31.0) Mean Corpuscular Hemoglobin Concent 32.2 G/DL (32.0-36.0) Red Cell Distribution Width 14.7 % (11.6-14.8) Platelet Count 170 K/UL (150-450) Mean Platelet Volume 6.5 FL (6.5-10.1) Neutrophils (%) (Auto) % (45.0-75.0) Lymphocytes (%) (Auto) % (20.0-45.0) Monocytes (%) (Auto) % (1.0-10.0) Eosinophils (%) (Auto) % (0.0-3.0) Basophils (%) (Auto) % (0.0-2.0) Sodium Level 142 MMOL/L (136-145) Potassium Level 5.3 MMOL/L (3.5-5.1) H Chloride Level 109 MMOL/L (98-107) H Carbon Dioxide Level 25 MMOL/L (21-32) Anion Gap 8 mmol/L (5-15) Blood Urea Nitrogen 51 mg/dL (7-18) H Creatinine 1.8 MG/DL (0.55-1.30) H Estimat Glomerular Filtration Rate mL/min (>60) Glucose Level 212 MG/DL (74-106) H Uric Acid 4.3 MG/DL (2.6-7.2) Calcium Level 8.4 MG/DL (8.5-10.1) L Phosphorus Level 3.5 MG/DL (2.5-4.9) Magnesium Level 1.9 MG/DL (1.8-2.4) Total Bilirubin 0.2 MG/DL (0.2-1.0) Aspartate Amino Transf (AST/SGOT) 46 U/L (15-37) H Alanine Aminotransferase (ALT/SGPT) 17 U/L (12-78) Alkaline Phosphatase 120 U/L (46-116) H C-Reactive Protein, Quantitative 23.5 mg/dL (0.00-0.90) H Pro-B-Type Natriuretic Peptide 23305 pg/mL (0-125) H Total Protein 6.4 G/DL (6.4-8.2) Albumin 1.2 G/DL (3.4-5.0) L Globulin 5.2 g/dL Albumin/Globulin Ratio 0.2 (1.0-2.7) L Tony Springer MD Apr 28, 2019 11:10
--- NOTE | 2019-04-28 11:11 | NUR ---
HAND-OFF: Report given to Kamar BURNETT.
--- NOTE | 2019-04-28 11:12 | NUR ---
NURSE NOTES: RECEIVED PATIENT FROM Felicia URIARTE RN. PATIENT IS LYING IN BED ASLEEP BUT ABLE TO OPEN EYES. HOOKED TO FARMWORK[employer] DIVERSIFIED CROPS. ORALLY INTUBATED. ETT 7.5 AT 23CM LIP LINE. WITH VENT SETTINGS OF AC 16, TV 500, FiO2 30%, PEEP 5. NO SIGNS OF DISTRESS. GT IN PLACE. GTF RUNNING GLUCERNA 1.2 AT 60ML/HR. NOTED RECTAL TUBE AND CAMILO CATHETER. WITH RESTRAINTS ON LEFT ARM, OBSERVED REMOVING ETT. SKIN ALTERATION NOTED. WITH PICC ON L UA, TKO. SIDE RAIL SUP. BED AT LOWEST POSITION. CALL LIGHT WITHIN REACH. WILL CONTINUE TO MONITOR.
[2019-04-28] MEDS: Cefepime HCl 1 GM in D5W 55 ML IVPB SCH (12:07)
--- NOTE | 2019-04-28 13:20 | Surgery Progress Note ---
Surgery Progress Note Subjective Symptoms: other Objective Last 24 Hour Vital Signs Date Time Temp Pulse Resp B/P (MAP) Pulse Ox O2 Delivery O2 Flow Rate FiO2 04/28/19 12:47 99 16 30 04/28/19 12:00 98.9 89 16 107/56 (73) 96 04/28/19 11:07 113 16 30 04/28/19 11:00 93 16 106/69 (81) 96 04/28/19 10:00 89 16 111/57 (75) 97 04/28/19 09:07 97 16 30 04/28/19 09:00 86 16 116/64 (81) 97 04/28/19 08:00 100.0 88 17 114/58 (76) 98 04/28/19 08:00 Mechanical Ventilator 04/28/19 08:00 87 04/28/19 08:00 30 04/28/19 07:15 97 19 30 04/28/19 07:00 97 16 122/66 (84) 98 04/28/19 06:00 92 16 113/60 (77) 98 04/28/19 05:09 96 18 30 04/28/19 05:00 88 19 123/67 (85) 98 04/28/19 04:00 104 04/28/19 04:00 Mechanical Ventilator 04/28/19 04:00 98.7 104 19 141/72 (95) 98 04/28/19 04:00 30 04/28/19 03:24 101 19 30 04/28/19 03:00 95 18 127/71 (89) 98 04/28/19 02:00 97 19 127/66 (86) 98 04/28/19 01:30 102 20 30 04/28/19 01:00 93 17 120/64 (82) 98 04/28/19 00:00 98.6 91 16 129/68 (88) 99 04/28/19 00:00 30 04/28/19 00:00 91 04/28/19 00:00 Mechanical Ventilator 04/27/19 23:00 90 16 126/63 (84) 99 04/27/19 22:45 99 16 30 04/27/19 22:00 99 22 123/65 (84) 98 04/27/19 21:00 99 16 134/67 (89) 98 04/27/19 20:39 99 16 30 04/27/19 20:00 98 7/2/19 20:00 98.3 98 17 137/78 (97) 99 04/27/19 20:00 Mechanical Ventilator 04/27/19 20:00 30 04/27/19 19:47 93 21 30 04/27/19 19:00 97 22 126/71 (89) 99 04/27/19 18:00 99 17 134/80 (98) 97 04/27/19 17:20 98 16 30 04/27/19 17:00 88 20 133/66 (88) 100 04/27/19 16:00 98.7 80 20 126/63 (84) 100 04/27/19 16:00 30 04/27/19 16:00 99 04/27/19 16:00 Mechanical Ventilator 04/27/19 15:21 91 18 30 04/27/19 15:00 86 23 129/70 (89) 100 04/27/19 14:00 99 21 133/62 (85) 100 I&O Intake and Output 04/27/19 04/28/19 19:00 07:00 Intake Total 1075 ml 920 ml Output Total 670 ml 710 ml Balance 405 ml 210 ml Free Water 300 ml 200 ml IV Total 55 ml Tube Feeding 720 ml 720 ml Output Urine Total 570 ml 570 ml Stool Total 100 ml 140 ml Dressing: dry Wound: clean Cardiovascular: RSR Respiratory: decreased breath sounds Abdomen: soft, present bowel sounds, non-distended Extremities: no cyanosis Laboratory Tests Test 04/28/19 04:30 White Blood Count 11.7 K/UL (4.8-10.8) H Red Blood Count 2.69 M/UL (4.20-5.40) L Hemoglobin 7.6 G/DL (12.0-16.0) L Hematocrit 23.6 % (37.0-47.0) L Mean Corpuscular Volume 88 FL (80-99) Mean Corpuscular Hemoglobin 28.3 PG (27.0-31.0) Mean Corpuscular Hemoglobin Concent 32.2 G/DL (32.0-36.0) Red Cell Distribution Width 14.7 % (11.6-14.8) Platelet Count 170 K/UL (150-450) Mean Platelet Volume 6.5 FL (6.5-10.1) Neutrophils (%) (Auto) % (45.0-75.0) Lymphocytes (%) (Auto) % (20.0-45.0) Monocytes (%) (Auto) % (1.0-10.0) Eosinophils (%) (Auto) % (0.0-3.0) Basophils (%) (Auto) % (0.0-2.0) Sodium Level 142 MMOL/L (136-145) Potassium Level 5.3 MMOL/L (3.5-5.1) H Chloride Level 109 MMOL/L (98-107) H Carbon Dioxide Level 25 MMOL/L (21-32) Anion Gap 8 mmol/L (5-15) Blood Urea Nitrogen 51 mg/dL (7-18) H Creatinine 1.8 MG/DL (0.55-1.30) H Estimat Glomerular Filtration Rate mL/min (>60) Glucose Level 212 MG/DL (74-106) H Uric Acid 4.3 MG/DL (2.6-7.2) Calcium Level 8.4 MG/DL (8.5-10.1) L Phosphorus Level 3.5 MG/DL (2.5-4.9) Magnesium Level 1.9 MG/DL (1.8-2.4) Total Bilirubin 0.2 MG/DL (0.2-1.0) Aspartate Amino Transf (AST/SGOT) 46 U/L (15-37) H Alanine Aminotransferase (ALT/SGPT) 17 U/L (12-78) Alkaline Phosphatase 120 U/L (46-116) H C-Reactive Protein, Quantitative 23.5 mg/dL (0.00-0.90) H Pro-B-Type Natriuretic Peptide 44526 pg/mL (0-125) H Total Protein 6.4 G/DL (6.4-8.2) Albumin 1.2 G/DL (3.4-5.0) L Globulin 5.2 g/dL Albumin/Globulin Ratio 0.2 (1.0-2.7) L Plan Problems: (1) Respiratory distress Assessment & Plan: has been on vents support for near two weeks cannot wean and does not tolerate weaning trials trach indicated and recommended will obtain consent and schedule (2) Malnutrition (3) UTI (urinary tract infection) (4) Diabetic nephropathy (5) Renal failure (ARF), acute on chronic (6) Anemia in chronic kidney disease (CKD) (7) Pulmonary hypertension (8) Acute respiratory failure (9) Respiratory failure (10) Hypernatremia (11) Sepsis Assessment & Plan: cont with current care trend labs will follow with recs (12) Pneumonia (13) History of CVA (cerebrovascular accident) (14) CAD (coronary artery disease) (15) Right hemiplegia (16) Diabetes mellitus (17) Hypertensive heart disease (18) 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 (19) Nosocomial pneumonia (20) At high risk for aspiration (21) Acute metabolic encephalopathy Devaughn Marin Apr 28, 2019 13:20
--- NOTE | 2019-04-28 14:20 | Infectious Diseases Prog Note ---
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 PNA Pulmonary edema -04/26 CXR: Suspect slightly increased interstitial and airspace edema, over 2 days.Possibly improving small right pleural effusion -04/19 CXR: There is less pulmonary edema compared to yesterday but with moderate residual edema. -04/16 CXR: . Right perihilar and bilateral lower lobe pulmonary consolidation concerning for pneumonia.Small bilateral pleural effusions. CXR - B/L Infiltrates Low grade fevers; improving WBCs up to 25; improving -04/24 Cdiff eng 04/16 Sp Cx - C. alb; 04/19 spC. albicans (colonizer) -BCx NTD -legionella ag urine neg Widened mediastinum - right sided aortic arch CXR - Apparent upper mediastinal widening. Possibly due to ectatic vasculature and body habitus, but upper mediastinal mass also possible. Correlate with any prior adiographs and may be available, consider CT for further evaluation if clinically indicated CT 04/13/19 - Right-sided aortic arch, presumably accounting for the apparent upper mediastinal widening demonstrated on recent plain radiograph. No evidence of upper mediastinal mass. Extensive bilateral lower lobe consolidation , likely pneumonia, less extensive left upper lobe consolidation. 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 CKD CAD PLAN Continue Cefepime #6 (abx d#10/10) for PNA -04/22 SP Meropenem #5 -04/20 SP Vancomycin #8 - 04/18/19 S/P Cefepime #6 - f/u cultures - Monitor CBC and Temps Thank you for this consult. We will continue to follow the patient during this hospitalization. Subjective Allergies: Coded Allergies: No Known Allergies (Unverified , 04/12/19) Subjective tm 100 wbc improving Bcx NTD Objective Vital Signs Last 24 Hour Vital Signs Date Time Temp Pulse Resp B/P (MAP) Pulse Ox O2 Delivery O2 Flow Rate FiO2 04/28/19 13:00 87 26 113/69 (84) 97 04/28/19 12:47 99 16 30 04/28/19 12:00 30 04/28/19 12:00 98.9 89 16 107/56 (73) 96 04/28/19 12:00 88 04/28/19 11:07 113 16 30 04/28/19 11:00 93 16 106/69 (81) 96 04/28/19 10:00 89 16 111/57 (75) 97 04/28/19 09:07 97 16 30 04/28/19 09:00 86 16 116/64 (81) 97 04/28/19 08:00 100.0 88 17 114/58 (76) 98 04/28/19 08:00 Mechanical Ventilator 04/28/19 08:00 87 04/28/19 08:00 30 04/28/19 07:15 97 19 30 04/28/19 07:00 97 16 122/66 (84) 98 04/28/19 06:00 92 16 113/60 (77) 98 04/28/19 05:09 96 18 30 04/28/19 05:00 88 19 123/67 (85) 98 04/28/19 04:00 104 04/28/19 04:00 Mechanical Ventilator 04/28/19 04:00 98.7 104 19 141/72 (95) 98 04/28/19 04:00 30 04/28/19 03:24 101 19 30 04/28/19 03:00 95 18 127/71 (89) 98 04/28/19 02:00 97 19 127/66 (86) 98 04/28/19 01:30 102 20 30 04/28/19 01:00 93 17 120/64 (82) 98 04/28/19 00:00 98.6 91 16 129/68 (88) 99 04/28/19 00:00 30 04/28/19 00:00 91 04/28/19 00:00 Mechanical Ventilator 04/27/19 23:00 90 16 126/63 (84) 99 04/27/19 22:45 99 16 30 04/27/19 22:00 99 22 123/65 (84) 98 04/27/19 21:00 99 16 134/67 (89) 98 04/27/19 20:39 99 16 30 04/27/19 20:00 98 04/27/19 20:00 98.3 98 17 137/78 (97) 99 04/27/19 20:00 Mechanical Ventilator 04/27/19 20:00 30 04/27/19 19:47 93 21 30 04/27/19 19:00 97 22 126/71 (89) 99 04/27/19 18:00 99 17 134/80 (98) 97 04/27/19 17:20 98 16 30 04/27/19 17:00 88 20 133/66 (88) 100 04/27/19 16:00 98.7 80 20 126/63 (84) 100 04/27/19 16:00 30 04/27/19 16:00 99 04/27/19 16:00 Mechanical Ventilator 04/27/19 15:21 91 18 30 04/27/19 15:00 86 23 129/70 (89) 100 Height (Feet): 5 Height (Inches): 7.00 Weight (Pounds): 188 Objective Gen: Awake and talking HEENT: NCAT, MMM, EOMI LUNGS: CTAB, No W CARDS: RRR, S1, S2, No M/R/G, ABD: Soft, NT, ND Laboratory Tests Test 04/28/19 04:30 White Blood Count 11.7 K/UL (4.8-10.8) H Red Blood Count 2.69 M/UL (4.20-5.40) L Hemoglobin 7.6 G/DL (12.0-16.0) L Hematocrit 23.6 % (37.0-47.0) L Mean Corpuscular Volume 88 FL (80-99) Mean Corpuscular Hemoglobin 28.3 PG (27.0-31.0) Mean Corpuscular Hemoglobin Concent 32.2 G/DL (32.0-36.0) Red Cell Distribution Width 14.7 % (11.6-14.8) Platelet Count 170 K/UL (150-450) Mean Platelet Volume 6.5 FL (6.5-10.1) Neutrophils (%) (Auto) % (45.0-75.0) Lymphocytes (%) (Auto) % (20.0-45.0) Monocytes (%) (Auto) % (1.0-10.0) Eosinophils (%) (Auto) % (0.0-3.0) Basophils (%) (Auto) % (0.0-2.0) Sodium Level 142 MMOL/L (136-145) Potassium Level 5.3 MMOL/L (3.5-5.1) H Chloride Level 109 MMOL/L (98-107) H Carbon Dioxide Level 25 MMOL/L (21-32) Anion Gap 8 mmol/L (5-15) Blood Urea Nitrogen 51 mg/dL (7-18) H Creatinine 1.8 MG/DL (0.55-1.30) H Estimat Glomerular Filtration Rate mL/min (>60) Glucose Level 212 MG/DL (74-106) H Uric Acid 4.3 MG/DL (2.6-7.2) Calcium Level 8.4 MG/DL (8.5-10.1) L Phosphorus Level 3.5 MG/DL (2.5-4.9) Magnesium Level 1.9 MG/DL (1.8-2.4) Total Bilirubin 0.2 MG/DL (0.2-1.0) Aspartate Amino Transf (AST/SGOT) 46 U/L (15-37) H Alanine Aminotransferase (ALT/SGPT) 17 U/L (12-78) Alkaline Phosphatase 120 U/L (46-116) H C-Reactive Protein, Quantitative 23.5 mg/dL (0.00-0.90) H Pro-B-Type Natriuretic Peptide 62543 pg/mL (0-125) H Total Protein 6.4 G/DL (6.4-8.2) Albumin 1.2 G/DL (3.4-5.0) L Globulin 5.2 g/dL Albumin/Globulin Ratio 0.2 (1.0-2.7) L Current Medications Medications (Trade) Dose Ordered Sig/Kenisha Route PRN Reason Start Time Stop Time Status Last Admin Dose Admin Acetaminophen (Tylenol) 650 mg Q4H PRN ORAL FEVER 04/17/19 12:36 05/17/19 12:35 04/25/19 23:56 Acetaminophen (Tylenol) 650 mg Q4H PRN RECTAL Fever 04/17/19 12:36 05/17/19 12:35 04/18/19 08:53 Cefepime HCl 1 gm/ Dextrose 55 ml @ 110 mls/hr Q24H IVPB 04/22/19 12:00 04/29/19 11:59 04/28/19 12:07 Chlorhexidine Gluconate (Izzy-Hex 2%) 1 applic DAILY@1999 TOPIC 04/20/19 20:00 05/20/19 19:59 04/27/19 19:54 Dextrose (Dextrose 50%) 25 ml Q30M PRN IV Hypoglycemia 04/17/19 12:45 05/12/19 19:44 Dextrose (Dextrose 50%) 50 ml Q30M PRN IV Hypoglycemia 04/17/19 12:45 05/12/19 19:44 Epoetin Bandar (Epoetin Bandar-EPBX(NON ESRD)) 10,000 unit SUBQ 04/28/19 21:00 05/28/19 20:59 Folic Acid (Folate) 1 mg DAILY ORAL 04/26/19 09:00 05/19/19 08:59 04/28/19 08:24 Hydralazine HCl (Apresoline) 10 mg Q2H PRN IV For High Blood Pressure 04/17/19 12:36 05/17/19 12:35 Insulin Aspart (NovoLOG) Q6HR SUBQ 04/20/19 18:00 05/20/19 17:59 04/28/19 12:13 Lansoprazole (Prevacid) 30 mg DAILY GT 04/22/19 09:00 05/22/19 08:59 04/28/19 08:24 Midodrine (Pro-Amatine) 5 mg THREE TIMES A DAY NG 04/27/19 13:00 05/21/19 12:59 04/28/19 12:08 Ondansetron HCl (Zofran) 4 mg Q6H PRN IVP Nausea & Vomiting 04/17/19 12:37 05/17/19 12:36 Polyethylene Glycol (Miralax) 17 gm DAILYPRN PRN ORAL Constipation 04/17/19 12:37 05/17/19 12:36 04/23/19 10:31 Cora Baer M.D. Apr 28, 2019 14:20
--- NOTE | 2019-04-28 14:23 | Cardiac Electrophysiology PN ---
Assessment/Plan Assessment/Plan 1. Atrial flutter, self terminated. Off AVN jose for low BP 2. Hypotension. On Midodrine 10 tid 3. Coronary artery disease. On Plavix 75 mg daily 4. Respiratory failure, intubated EF 60%. Tracheostomy pending. 5. Sepsis. White count 25,000. On IV abx improved to 13K 6. Anemia.S/P PRBC. 7. Renal failure BUN/Cr improved to 38/1.[address] Spivey 8. Dysphagia. S/P PEG 04/22/19 9. History of CVA with hemiplegia. 10. Nonverbal status. 11. Full code DW RN Subjective Subjective Intubated in ICU.Off pressors. S/P PRBC . Tracheostomy pending Objective Last 24 Hour Vital Signs Date Time Temp Pulse Resp B/P (MAP) Pulse Ox O2 Delivery O2 Flow Rate FiO2 04/28/19 13:00 87 26 113/69 (84) 97 04/28/19 12:47 99 16 30 04/28/19 12:00 30 04/28/19 12:00 98.9 89 16 107/56 (73) 96 04/28/19 12:00 88 04/28/19 11:07 113 16 30 04/28/19 11:00 93 16 106/69 (81) 96 04/28/19 10:00 89 16 111/57 (75) 97 04/28/19 09:07 97 16 30 04/28/19 09:00 86 16 116/64 (81) 97 04/28/19 08:00 100.0 88 17 114/58 (76) 98 04/28/19 08:00 Mechanical Ventilator 04/28/19 08:00 87 04/28/19 08:00 30 04/28/19 07:15 97 19 30 04/28/19 07:00 97 16 122/66 (84) 98 04/28/19 06:00 92 16 113/60 (77) 98 04/28/19 05:09 96 18 30 04/28/19 05:00 88 19 123/67 (85) 98 04/28/19 04:00 104 04/28/19 04:00 Mechanical Ventilator 04/28/19 04:00 98.7 104 19 141/72 (95) 98 04/28/19 04:00 30 04/28/19 03:24 101 19 30 04/28/19 03:00 95 18 127/71 (89) 98 04/28/19 02:00 97 19 127/66 (86) 98 04/28/19 01:30 102 20 30 04/28/19 01:00 93 17 120/64 (82) 98 04/28/19 00:00 98.6 91 16 129/68 (88) 99 04/28/19 00:00 30 04/28/19 00:00 91 04/28/19 00:00 Mechanical Ventilator 04/27/19 23:00 90 16 126/63 (84) 99 04/27/19 22:45 99 16 30 04/27/19 22:00 99 22 123/65 (84) 98 04/27/19 21:00 99 16 134/67 (89) 98 04/27/19 20:39 99 16 30 04/27/19 20:00 98 04/27/19 20:00 98.3 98 17 137/78 (97) 99 04/27/19 20:00 Mechanical Ventilator 04/27/19 20:00 30 04/27/19 19:47 93 21 30 04/27/19 19:00 97 22 126/71 (89) 99 04/27/19 18:00 99 17 134/80 (98) 97 04/27/19 17:20 98 16 30 04/27/19 17:00 88 20 133/66 (88) 100 04/27/19 16:00 98.7 80 20 126/63 (84) 100 04/27/19 16:00 30 04/27/19 16:00 99 04/27/19 16:00 Mechanical Ventilator 04/27/19 15:21 91 18 30 04/27/19 15:00 86 23 129/70 (89) 100 Intake and Output 04/27/19 04/28/19 19:00 07:00 Intake Total 1075 ml 920 ml Output Total 670 ml 710 ml Balance 405 ml 210 ml Free Water 300 ml 200 ml IV Total 55 ml Tube Feeding 720 ml 720 ml Output Urine Total 570 ml 570 ml Stool Total 100 ml 140 ml Laboratory Tests Test 04/28/19 04:30 White Blood Count 11.7 K/UL (4.8-10.8) H Red Blood Count 2.69 M/UL (4.20-5.40) L Hemoglobin 7.6 G/DL (12.0-16.0) L Hematocrit 23.6 % (37.0-47.0) L Mean Corpuscular Volume 88 FL (80-99) Mean Corpuscular Hemoglobin 28.3 PG (27.0-31.0) Mean Corpuscular Hemoglobin Concent 32.2 G/DL (32.0-36.0) Red Cell Distribution Width 14.7 % (11.6-14.8) Platelet Count 170 K/UL (150-450) Mean Platelet Volume 6.5 FL (6.5-10.1) Neutrophils (%) (Auto) % (45.0-75.0) Lymphocytes (%) (Auto) % (20.0-45.0) Monocytes (%) (Auto) % (1.0-10.0) Eosinophils (%) (Auto) % (0.0-3.0) Basophils (%) (Auto) % (0.0-2.0) Sodium Level 142 MMOL/L (136-145) Potassium Level 5.3 MMOL/L (3.5-5.1) H Chloride Level 109 MMOL/L (98-107) H Carbon Dioxide Level 25 MMOL/L (21-32) Anion Gap 8 mmol/L (5-15) Blood Urea Nitrogen 51 mg/dL (7-18) H Creatinine 1.8 MG/DL (0.55-1.30) H Estimat Glomerular Filtration Rate mL/min (>60) Glucose Level 212 MG/DL (74-106) H Uric Acid 4.3 MG/DL (2.6-7.2) Calcium Level 8.4 MG/DL (8.5-10.1) L Phosphorus Level 3.5 MG/DL (2.5-4.9) Magnesium Level 1.9 MG/DL (1.8-2.4) Total Bilirubin 0.2 MG/DL (0.2-1.0) Aspartate Amino Transf (AST/SGOT) 46 U/L (15-37) H Alanine Aminotransferase (ALT/SGPT) 17 U/L (12-78) Alkaline Phosphatase 120 U/L (46-116) H C-Reactive Protein, Quantitative 23.5 mg/dL (0.00-0.90) H Pro-B-Type Natriuretic Peptide 56237 pg/mL (0-125) H Total Protein 6.4 G/DL (6.4-8.2) Albumin 1.2 G/DL (3.4-5.0) L Globulin 5.2 g/dL Albumin/Globulin Ratio 0.2 (1.0-2.7) L Objective HEAD AND NECK: No JVD. Orally intubated LUNGS: Coarse rhonchi bilaterally. CARDIOVASCULAR: Regular S1 and S2 with no gallop. ABDOMEN: Soft.PEG in place EXTREMITIES: No pitting edema. Claude Pena MD Apr 28, 2019 14:23
--- NOTE | 2019-04-28 14:30 | NUR ---
NURSE NOTES: BLOOD TRANSFUSION STARTED. TOLERATED BT. NO SIGN SOF DISTRESS. WILL CONTINUE TO MONITOR.
--- NOTE | 2019-04-28 14:50 | NUR ---
RD ASSESSMENT & RECOMMENDATIONS SEE CARE ACTIVITY FOR COMPLETE ASSESSMENT DAILY ESTIMATED NEEDS: Needs based on Sepsis, DM, cardiac, Critical care, wound/ 58kg abw 22-28 kcals/kg 5369-5600 total kcals 1.25-2 g protein/kg 72-116 g total protein 25-30 mL/kg 8274-3548 total fluid mLs NUTRITION DIAGNOSIS: * Swallowing difficulty R/T dysphagia, h/o CVA, respiratory status as evidenced by s/p VSS w/ rec for NPO, nonoral feedings, now orally intubated in ICU, s/p PEG placement. * Altered nutrition related lab values R/T diabetes, ARF, cardiac hx as evidenced by A1C of 8.1, POC glu (195-226), elev creat (2.4 ->1.8), elev BNP (84375->4917->54002), elev K (5.3). . CURRENT TF:Glucerna 1.2 @ 60ml/hr x 24 hrs ENTERAL NUTRITION RECOMMENDATIONS: Glucerna 1.2 @ 55ml/hr x 24 hrs to provide 1320ml, 1584kcal, 79g prot, 1062ml free water * LOWER goal rate to 55ml/hr x 24 hrs- meets 100% est kcal/prot needs * HOB over 30 degrees/ water flush per MD --- W/ CONSISTENTLY ELEV K, REC TF CHANGE TO NEPRO FOR LESS K CONTENT : Nepro @ 37m/hr x 24 hrs -> 888ml, 1598kcal, 72g prot, 640ml free water (will provide 1887mg less K than current TF) ADDITIONAL RECOMMENDATIONS: * Calibrated bedscale wt for accurate CBW * Monitor lytes daily, replete as needed * Wound healing: add Jarvis 1pkt BID, vit C 250mg QD * Monitor K closely- rec TF change to NEPRO w/ consistently elev K -> see above TF rec
--- NOTE | 2019-04-28 16:15 | NUR ---
NURSE NOTES: PATIENT KEPT CLEAN AND DRY. NO SIGNS OF DISTRESS. WILL CONTINUE TO MONITOR.
--- NOTE | 2019-04-28 17:20 | NUR ---
NURSE NOTES: TOLERATING VENT SETTINGS AND TUBE FEEDING. NO SIGNS OF DISTRESS. WILL CONTINUE TO MONITOR.
--- NOTE | 2019-04-28 19:18 | NUR ---
HAND-OFF: Report given to Herbert Peters RN.
--- NOTE | 2019-04-28 19:30 | NUR ---
NURSE NOTES: Recvd.on a vent.orally intubated.See settings.Lungs few Rh.Diminished BS at Bases.Sat.99%.Suctioned Beige sec.NS Lavaged.See V/S.Scope SR.Pos.chg.Does'nt Follows command.(R)side Flaccid R/T Hx;CVA.GT-Feeding in progress.F/cath Patent diuresis suff.
[2019-04-28] MEDS: Dyna-Hex 2% Top Sol 2oz TOPIC SCH (19:58)
[2019-04-28] MEDS: Epoetin Alfa-EPBX (NON ESRD)10,000 unit/ml vial SUBQ SCH (20:30)
--- NOTE | 2019-04-28 22:00 | Progress Note ---
DATE: 04/28/2019 SUBJECTIVE: She is 79-year-old female patient with sepsis. She has got some confusion, some disorganized thought process, some decline in cognition below baseline. That is why, her attending physician has requested daily psychiatric consultation at this time. MENTAL STATUS EXAMINATION: This is a 79-year-old female. Appearance is disheveled. Attitude, irritable and agitated. Affect, guarded, restricted. Intellect poor. Mood depressed and anxious. Motor activity, psychomotor agitation. Attention span is poor. Orientation x1. Speech is mostly nonverbal. Thought process, disorganized and illogical. Insight and judgment is poor. DIAGNOSIS: Major depressive disorder, severe, recurrent with psychotic features, rule out dementia with psychosis. PLAN: Treat her with Ativan 2 mg IV q.4 hours. Provided her with 20 minutes of behavioral management. She will continue to be followed by Psychiatry and I will continue this patient to improve her cognition close to her baseline as she is below baseline currently cognitively. Chart reviewed. Discussed with staff. Seen and assessed at bedside. Omar Glover M.D. DR: DEB JOB#: [id number] CC:
--- NOTE | 2019-04-28 22:00 | NUR ---
NURSE NOTES: HS Care rendered.Pos.chg.Backrub with Lotion.Suctioned.Due media buyer.No Distress.
[2019-04-29] VITALS (24 sets, daily range): BP systolic 138–168; BP diastolic 61–91
--- NOTE | 2019-04-29 00:15 | NUR ---
NURSE NOTES: Suctioned,Lacy.vent.settings.Pos.chg.Neuro status same.See V/S.Scope rhythm same.[id number] covered.No Distress.
--- NOTE | 2019-04-29 02:00 | NUR ---
NURSE NOTES: Repositioned,suctioned.Alcy.GT-Feeding.Status same.Cont.Plan of care.
--- NOTE | 2019-04-29 04:20 | NUR ---
NURSE NOTES: marcio Murdock chg.Pos.to comfort.Suctioned.Lacy.Vent.settings.Sat.98-99%.Neuro status same.Blood drawn for cbc/bmp spec.to Lab.Cont.Plan of care.
[2019-04-29 05:20] LABS: BASOPHILS % (AUTO) 0.7 % (0.0-2.0); HEMATOCRIT 25.9 % (37.0-47.0); HEMOGLOBIN 8.4 G/DL (12.0-16.0); LYMPHOCYTES % (AUTO) 14.4 % (20.0-45.0); MEAN CORPUSCULAR VOLUME 88 FL (80-99); MONOCYTES % (AUTO) 6.6 % (1.0-10.0); NEUTROPHILS % (AUTO) 78.3 % (45.0-75.0); PLATELET COUNT 166 K/UL (150-450); RED BLOOD COUNT 2.93 M/UL (4.20-5.40); RED CELL DISTRIBUTION WIDTH 14.5 % (11.6-14.8); WHITE BLOOD COUNT 10.3 K/UL (4.8-10.8)
[2019-04-29 05:37] LABS: ANION GAP 10 mmol/L (5-15); BLOOD UREA NITROGEN 51 mg/dL (7-18); CALCIUM 8.6 MG/DL (8.5-10.1); CARBON DIOXIDE 27 MMOL/L (21-32); CHLORIDE 110 MMOL/L (98-107); CREATININE 1.7 MG/DL (0.55-1.30); POTASSIUM 4.4 MMOL/L (3.5-5.1); SODIUM 147 MMOL/L (136-145)
--- NOTE | 2019-04-29 06:02 | NUR ---
Pt. remains intubated on mechanical vent no changes on vent settings. Was gonna change anchor fast DTI on cheeks noted HORTENCIA Yun informed and pictures were taken. Skin barrier placed on cheeks and optifoam placed on right cheek, ETT secured and taped to avoid DTI at 24cm blayne. Will continue to monitor.
[2019-04-29] MEDS: NovoLOG Insulin Flexpen SUBQ SCH ×3 (06:10→18:22)
--- NOTE | 2019-04-29 07:19 | NUR ---
RESPIRATORY NOTE: received pt orally intubated with ETT 7.5, placed 23cm at the lip. pt in no resp distress at this time. ETT is secured via ETT tape due to bandage or wound on facial area. bilateral rhonchi b/s upon auscultation. alarms are set and audible with ambu bag at bedside. will cont to monitor.
--- NOTE | 2019-04-29 07:24 | Pulmonolgy Critical Care Note ---
Critical Care - Asmt/Plan Assessment/Plan: ASSESSMENT Sepsis Acute respiratory failure, requiring intubation Failure to wean Nosocomial pneumonia Acute metabolic encephalopathy Atrial flutter, self terminated Acute on chronic renal failure Severe aortic stenosis Moderate to severe mitral stenosis Moderate pulmonary hypertension Dysphagia, status post PEG 04/22 Anemia of chronic kidney disease Hypotension with history of hypertensive heart disease Diabetes mellitus with diabetic nephropathy Elevated troponin, likely troponin leak secondary to renal failure History of CVA with right hemiparesis Coronary artery disease PLAN OF CARE ICU vent support, pulmonary toilet f/up with ABG and chest x-ray in am failed weaning trials surgery follows for possible trach placement abx as per ID Enzo atrial flutter self terminated, off AVN jose secondary to hypotension continue midodrine Echo with pEF 55-60 %, moderate to severe mitral MS, severe aortic stenosis, RVSP 53,c/w moderate pulmonary HTN troponin levels minimally elevated, flat, likely troponin leak 2 to renal failure s/p 4 units PRBC a anemia work-up c/w anemia of chronic disease monitor H&H with goal to keep hemoglobin above 7 stool OB positive VSSE positive for penetration of thick liquids s/p t EGD and PEG placement GTF with strict aspiration precaution pathology of gastric antrum c/w moderate chronic gastritis, no H. pylori identified BS management with SSI, Hgb A1c 8.1 nephro follows renal US no hydro, normal echogenicity creatinine trending down per nephro, likely acute on chronic renal failure 2 to diabetic nephropathy monitor renal parameters, electrolytes; correct electrolytes prn, avoid nephrotoxic bowel regimen GI prophylaxis supportive care case discussed and evaluated by supervising physician Critical Care - Objective Last 24 Hour Vital Signs Date Time Temp Pulse Resp B/P (MAP) Pulse Ox O2 Delivery O2 Flow Rate FiO2 04/29/19 07:17 72 16 30 04/29/19 07:00 73 16 138/73 (94) 97 04/29/19 06:00 92 18 150/67 (94) 96 04/29/19 05:23 89 16 30 30 04/29/19 05:00 84 16 147/71 (96) 97 04/29/19 04:00 89 04/29/19 04:00 30 04/29/19 04:00 99.1 89 22 150/80 (103) 98 04/29/19 04:00 Mechanical Ventilator 04/29/19 03:35 87 16 30 30 04/29/19 03:00 85 17 140/91 (107) 96 04/29/19 02:00 86 20 140/74 (96) 98 04/29/19 01:04 78 16 30 30 04/29/19 01:00 85 19 140/67 (91) 98 04/29/19 00:00 98.9 92 16 144/70 (94) 98 04/29/19 00:00 Mechanical Ventilator 04/29/19 00:00 92 04/29/19 00:00 30 04/28/19 23:00 81 16 137/71 (93) 98 04/28/19 22:55 68 16 30 30 04/28/19 22:00 81 16 135/64 (87) 98 04/28/19 21:00 81 16 125/56 (79) 98 04/28/19 20:41 81 16 30 30 04/28/19 20:00 81 04/28/19 20:00 Mechanical Ventilator 04/28/19 20:00 99.2 81 17 134/69 (90) 99 04/28/19 20:00 30 04/28/19 19:29 90 16 30 30 04/28/19 19:00 80 20 132/66 (88) 99 04/28/19 18:00 79 16 138/72 (94) 99 04/28/19 17:15 90 16 30 04/28/19 17:00 84 18 126/73 (90) 100 04/28/19 16:00 Mechanical Ventilator 04/28/19 16:00 98.5 86 22 116/73 (87) 96 04/28/19 16:00 30 04/28/19 16:00 101 04/28/19 15:21 95 16 30 04/28/19 15:00 93 25 131/66 (87) 95 04/28/19 14:30 100 21 119/71 (87) 96 04/28/19 14:00 98 26 113/69 (84) 97 04/28/19 14:00 98 26 113/69 (84) 97 04/28/19 13:30 92 16 126/63 (84) 96 04/28/19 13:00 87 26 113/69 (84) 97 04/28/19 12:47 99 16 30 04/28/19 12:00 30 04/28/19 12:00 98.9 89 16 107/56 (73) 96 04/28/19 12:00 88 04/28/19 12:00 Mechanical Ventilator 04/28/19 11:07 113 16 30 04/28/19 11:00 93 16 106/69 (81) 96 04/28/19 10:00 89 16 111/57 (75) 97 04/28/19 09:07 97 16 30 04/28/19 09:00 86 16 116/64 (81) 97 04/28/19 08:00 100.0 88 17 114/58 (76) 98 04/28/19 08:00 Mechanical Ventilator 04/28/19 08:00 87 04/28/19 08:00 30 Status: somnolent - Condition: critical HEENT: atraumatic, normocephalic, other - OP with ET in palce, intact Lungs: clear Heart: HR/BP stable - SR on tele Abdomen: soft - obese , non-tender, active bowel sounds, other - G tube Extremities: no C/C/E Decubiti: other - SCD on Accucheck: 158 Critical Care - Subjective ROS Limited/Unobtainable: Yes Interval Events: remains intubated, failed weaning trials afebrile, but low grade fever yesterday , leuk resolved Condition: critical IV Access: PICC - LUE EKG Rhythm: Sinus Rhythm FI02: 30 Vent Support Breath Rate: 16 Vent Support Mode: AC Vent Tidal Volume: 500 Sputum Amount: Small PEEP: 5.0 PIP: 37 Tube Feeding Amount: 60 I&O: Intake and Output 04/28/19 04/29/19 18:59 06:59 Intake Total 990 ml 1270 ml Output Total 450 ml 720 ml Balance 540 ml 550 ml Free Water 100 ml 300 ml IV Total 110 ml Tube Feeding 780 ml 720 ml Blood Product 250 ml Output Urine Total 450 ml 420 ml Stool Total 300 ml CXR: 04/26 - Suspect slightly increased interstitial and airspace edema, over 2 days Possibly improving small right pleural effusion ET-Tube: 7.5 ET Position: 23 Stacy Dsouza NP Apr 29, 2019 07:24
--- NOTE | 2019-04-29 07:29 | NUR ---
HAND-OFF: Report given to HORTENCIA MARIE.
[2019-04-29] MEDS ORDERED: Albuterol/Ipratropium 3ml neb HHN PRN (07:30)
--- NOTE | 2019-04-29 07:30 | NUR ---
NURSE NOTES: RECEIVED PATIENT FROM Herbert GRAVEY RN. PATIENT IS LYING IN BED ASLEEP BUT ABLE TO OPEN EYES. HOOKED TO DIRECTOR PERSONAL. ORALLY INTUBATED. ETT 7.5 AT 23CM LIP LINE. WITH VENT SETTINGS OF AC 16, TV 500, FiO2 30%, PEEP 5. NO SIGNS OF DISTRESS. GT IN PLACE. GTF RUNNING GLUCERNA 1.2 AT 60ML/HR. NOTED RECTAL TUBE AND CAMILO CATHETER. WITH RESTRAINTS ON LEFT ARM, OBSERVED REMOVING ETT. SKIN ALTERATION NOTED. WITH PICC ON L UA, TKO. SIDE RAILS UP. BED AT LOWEST POSITION. CALL LIGHT WITHIN REACH. WILL CONTINUE TO MONITOR.
--- NOTE | 2019-04-29 08:07 | Infectious Diseases Prog Note ---
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 PNA Pulmonary edema -04/26 CXR: Suspect slightly increased interstitial and airspace edema, over 2 days.Possibly improving small right pleural effusion -04/19 CXR: There is less pulmonary edema compared to yesterday but with moderate residual edema. -04/16 CXR: . Right perihilar and bilateral lower lobe pulmonary consolidation concerning for pneumonia.Small bilateral pleural effusions. CXR - B/L Infiltrates Low grade fevers; improving WBCs up to 25; improving -04/24 Cdiff eng 04/16 Sp Cx - C. alb; 04/19 spC. albicans (colonizer) -BCx NTD -legionella ag urine neg Widened mediastinum - right sided aortic arch CXR - Apparent upper mediastinal widening. Possibly due to ectatic vasculature and body habitus, but upper mediastinal mass also possible. Correlate with any prior adiographs and may be available, consider CT for further evaluation if clinically indicated CT 04/13/19 - Right-sided aortic arch, presumably accounting for the apparent upper mediastinal widening demonstrated on recent plain radiograph. No evidence of upper mediastinal mass. Extensive bilateral lower lobe consolidation , likely pneumonia, less extensive left upper lobe consolidation. 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 CKD CAD PLAN Continue Cefepime #7 for PNA -04/22 SP Meropenem #5 -04/20 SP Vancomycin #8 - 04/18/19 S/P Cefepime #6 - f/u cultures - Monitor CBC and Temps Thank you for this consult. We will continue to follow the patient during this hospitalization. Subjective Allergies: Coded Allergies: No Known Allergies (Unverified , 04/12/19) Subjective Afebrile Leukocytosis resolved Objective Vital Signs Last 24 Hour Vital Signs Date Time Temp Pulse Resp B/P (MAP) Pulse Ox O2 Delivery O2 Flow Rate FiO2 04/29/19 08:00 30 04/29/19 07:17 72 16 30 04/29/19 07:00 73 16 138/73 (94) 97 04/29/19 06:00 92 18 150/67 (94) 96 04/29/19 05:23 89 16 30 30 04/29/19 05:00 84 16 147/71 (96) 97 04/29/19 04:00 89 04/29/19 04:00 30 04/29/19 04:00 99.1 89 22 150/80 (103) 98 04/29/19 04:00 Mechanical Ventilator 04/29/19 03:35 87 16 30 30 04/29/19 03:00 85 17 140/91 (107) 96 04/29/19 02:00 86 20 140/74 (96) 98 04/29/19 01:04 78 16 30 30 04/29/19 01:00 85 19 140/67 (91) 98 04/29/19 00:00 98.9 92 16 144/70 (94) 98 04/29/19 00:00 Mechanical Ventilator 04/29/19 00:00 92 04/29/19 00:00 30 04/28/19 23:00 81 16 137/71 (93) 98 04/28/19 22:55 68 16 30 30 04/28/19 22:00 81 16 135/64 (87) 98 04/28/19 21:00 81 16 125/56 (79) 98 04/28/19 20:41 81 16 30 30 04/28/19 20:00 81 04/28/19 20:00 Mechanical Ventilator 04/28/19 20:00 99.2 81 17 134/69 (90) 99 04/28/19 20:00 30 04/28/19 19:29 90 16 30 30 04/28/19 19:00 80 20 132/66 (88) 99 04/28/19 18:00 79 16 138/72 (94) 99 04/28/19 17:15 90 16 30 04/28/19 17:00 84 18 126/73 (90) 100 04/28/19 16:00 Mechanical Ventilator 04/28/19 16:00 98.5 86 22 116/73 (87) 96 04/28/19 16:00 30 04/28/19 16:00 101 04/28/19 15:21 95 16 30 04/28/19 15:00 93 25 131/66 (87) 95 04/28/19 14:30 100 21 119/71 (87) 96 04/28/19 14:00 98 26 113/69 (84) 97 04/28/19 14:00 98 26 113/69 (84) 97 04/28/19 13:30 92 16 126/63 (84) 96 04/28/19 13:00 87 26 113/69 (84) 97 04/28/19 12:47 99 16 30 04/28/19 12:00 30 04/28/19 12:00 98.9 89 16 107/56 (73) 96 04/28/19 12:00 88 04/28/19 12:00 Mechanical Ventilator 04/28/19 11:07 113 16 30 04/28/19 11:00 93 16 106/69 (81) 96 04/28/19 10:00 89 16 111/57 (75) 97 04/28/19 09:07 97 16 30 04/28/19 09:00 86 16 116/64 (81) 97 Height (Feet): 5 Height (Inches): 7.00 Weight (Pounds): 183 Objective Gen: NAD, Intubated HEENT: NCAT, MMM, EOMI LUNGS: CTAB, No W CARDS: RRR, S1, S2, No M/R/G, ABD: Soft, NT, ND Laboratory Tests Test 04/29/19 05:00 White Blood Count 10.3 K/UL (4.8-10.8) Red Blood Count 2.93 M/UL (4.20-5.40) L Hemoglobin 8.4 G/DL (12.0-16.0) L Hematocrit 25.9 % (37.0-47.0) L Mean Corpuscular Volume 88 FL (80-99) Mean Corpuscular Hemoglobin 28.7 PG (27.0-31.0) Mean Corpuscular Hemoglobin Concent 32.6 G/DL (32.0-36.0) Red Cell Distribution Width 14.5 % (11.6-14.8) Platelet Count 166 K/UL (150-450) Mean Platelet Volume 7.1 FL (6.5-10.1) Neutrophils (%) (Auto) 78.3 % (45.0-75.0) H Lymphocytes (%) (Auto) 14.4 % (20.0-45.0) L Monocytes (%) (Auto) 6.6 % (1.0-10.0) Eosinophils (%) (Auto) 0.0 % (0.0-3.0) Basophils (%) (Auto) 0.7 % (0.0-2.0) Sodium Level 147 MMOL/L (136-145) H Potassium Level 4.4 MMOL/L (3.5-5.1) Chloride Level 110 MMOL/L (98-107) H Carbon Dioxide Level 27 MMOL/L (21-32) Anion Gap 10 mmol/L (5-15) Blood Urea Nitrogen 51 mg/dL (7-18) H Creatinine 1.7 MG/DL (0.55-1.30) H Estimat Glomerular Filtration Rate mL/min (>60) Glucose Level 134 MG/DL (74-106) H Calcium Level 8.6 MG/DL (8.5-10.1) Current Medications Medications (Trade) Dose Ordered Sig/Kenisha Route PRN Reason Start Time Stop Time Status Last Admin Dose Admin Acetaminophen (Tylenol) 650 mg Q4H PRN ORAL FEVER 04/17/19 12:36 05/17/19 12:35 04/25/19 23:56 Acetaminophen (Tylenol) 650 mg Q4H PRN RECTAL Fever 04/17/19 12:36 05/17/19 12:35 04/18/19 08:53 Albuterol/ Ipratropium (Albuterol/ Ipratropium) 3 ml Q4H PRN HHN Shortness of Breath 04/29/19 07:30 05/04/19 07:29 Cefepime HCl 1 gm/ Dextrose 55 ml @ 110 mls/hr Q24H IVPB 04/22/19 12:00 04/29/19 11:59 04/28/19 12:07 Chlorhexidine Gluconate (Izzy-Hex 2%) 1 applic DAILY@2000 TOPIC 04/20/19 20:00 05/20/19 19:59 04/28/19 19:58 Dextrose (Dextrose 50%) 25 ml Q30M PRN IV Hypoglycemia 04/17/19 12:45 05/12/19 19:44 Dextrose (Dextrose 50%) 50 ml Q30M PRN IV Hypoglycemia 04/17/19 12:45 05/12/19 19:44 Epoetin Bandar (Epoetin Bandar-EPBX(NON ESRD)) 10,000 unit FRI-FRI-FRI SUBQ 04/28/19 21:00 8//19 20:59 04/28/19 20:30 Folic Acid (Folate) 1 mg DAILY ORAL 04/26/19 09:00 05/19/19 08:59 04/28/19 08:24 Hydralazine HCl (Apresoline) 10 mg Q2H PRN IV For High Blood Pressure 04/17/19 12:36 05/17/19 12:35 Insulin Aspart (NovoLOG) Q6HR SUBQ 04/20/19 18:00 05/20/19 17:59 04/29/19 06:10 Lansoprazole (Prevacid) 30 mg DAILY GT 04/22/19 09:00 05/22/19 08:59 04/28/19 08:24 Midodrine (Pro-Amatine) 5 mg THREE TIMES A DAY NG 04/27/19 13:00 05/21/19 12:59 04/28/19 17:43 Ondansetron HCl (Zofran) 4 mg Q6H PRN IVP Nausea & Vomiting 04/17/19 12:37 05/17/19 12:36 Polyethylene Glycol (Miralax) 17 gm DAILYPRN PRN ORAL Constipation 04/17/19 12:37 05/17/19 12:36 04/23/19 10:31 Gildardo Gonsalves MD Apr 29, 2019 08:07
--- NOTE | 2019-04-29 08:35 | General Progress Note ---
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 ICD Codes: E11.22 - Type 2 diabetes mellitus with diabetic chronic kidney disease; N18.4 - Chronic kidney disease, stage 4 (severe) SNOMED: 84572939, 061813065, 250290727 (7) Respiratory failure ICD Codes: J96.90 - Respiratory failure, unspecified, unspecified whether with hypoxia or hypercapnia SNOMED: 123612424 Qualifiers: Qualified Codes: J96.02 - Acute respiratory failure with hypercapnia Status: unchanged Assessment/Plan: pt diet abx o2 pulm tx neuro psyc eval cbc bmp am ltach eval Subjective Constitutional: Reports: weakness Allergies: Coded Allergies: No Known Allergies (Unverified , 04/12/19) All Systems: reviewed and negative except above Subjective intubated in icu Objective Last 24 Hour Vital Signs Date Time Temp Pulse Resp B/P (MAP) Pulse Ox O2 Delivery O2 Flow Rate FiO2 04/29/19 08:00 30 04/29/19 07:17 72 16 30 04/29/19 07:00 73 16 138/73 (94) 97 04/29/19 06:00 92 18 150/67 (94) 96 04/29/19 05:23 89 16 30 30 04/29/19 05:00 84 16 147/71 (96) 97 04/29/19 04:00 89 04/29/19 04:00 30 04/29/19 04:00 99.1 89 22 150/80 (103) 98 04/29/19 04:00 Mechanical Ventilator 04/29/19 03:35 87 16 30 30 04/29/19 03:00 85 17 140/91 (107) 96 04/29/19 02:00 86 20 140/74 (96) 98 04/29/19 01:04 78 16 30 30 04/29/19 01:00 85 19 140/67 (91) 98 04/29/19 00:00 98.9 92 16 144/70 (94) 98 04/29/19 00:00 Mechanical Ventilator 04/29/19 00:00 92 04/29/19 00:00 30 04/28/19 23:00 81 16 137/71 (93) 98 04/28/19 22:55 68 16 30 30 04/28/19 22:00 81 16 135/64 (87) 98 04/28/19 21:00 81 16 125/56 (79) 98 04/28/19 20:41 81 16 30 30 04/28/19 20:00 81 04/28/19 20:00 Mechanical Ventilator 04/28/19 20:00 99.2 81 17 134/69 (90) 99 04/28/19 20:00 30 04/28/19 19:29 90 16 30 30 04/28/19 19:00 80 20 132/66 (88) 99 04/28/19 18:00 79 16 138/72 (94) 99 04/28/19 17:15 90 16 30 04/28/19 17:00 84 18 126/73 (90) 100 04/28/19 16:00 Mechanical Ventilator 04/28/19 16:00 98.5 86 22 116/73 (87) 96 04/28/19 16:00 30 04/28/19 16:00 101 04/28/19 15:21 95 16 30 04/28/19 15:00 93 25 131/66 (87) 95 04/28/19 14:30 100 21 119/71 (87) 96 04/28/19 14:00 98 26 113/69 (84) 97 04/28/19 14:00 98 26 113/69 (84) 97 04/28/19 13:30 92 16 126/63 (84) 96 04/28/19 13:00 87 26 113/69 (84) 97 04/28/19 12:47 99 16 30 04/28/19 12:00 30 04/28/19 12:00 98.9 89 16 107/56 (73) 96 04/28/19 12:00 88 7/3/19 12:00 Mechanical Ventilator 04/28/19 11:07 113 16 30 04/28/19 11:00 93 16 106/69 (81) 96 04/28/19 10:00 89 16 111/57 (75) 97 04/28/19 09:07 97 16 30 04/28/19 09:00 86 16 116/64 (81) 97 Intake and Output 04/28/19 04/29/19 18:59 06:59 Intake Total 990 ml 1270 ml Output Total 450 ml 720 ml Balance 540 ml 550 ml Free Water 100 ml 300 ml IV Total 110 ml Tube Feeding 780 ml 720 ml Blood Product 250 ml Output Urine Total 450 ml 420 ml Stool Total 300 ml Laboratory Tests 04/29/19 05:00: White Blood Count 10.3, Red Blood Count 2.93L, Hemoglobin 8.4L, Hematocrit 25.9L , Mean Corpuscular Volume 88, Mean Corpuscular Hemoglobin 28.7, Mean Corpuscular Hemoglobin Concent 32.6, Red Cell Distribution Width 14.5, Platelet Count 166, Mean Platelet Volume 7.1, Neutrophils (%) (Auto) 78.3H, Lymphocytes ( %) (Auto) 14.4L, Monocytes (%) (Auto) 6.6, Eosinophils (%) (Auto) 0.0, Basophils (%) (Auto) 0.7, Sodium Level 147H, Potassium Level 4.4, Chloride Level 110H, Carbon Dioxide Level 27, Anion Gap 10, Blood Urea Nitrogen 51H, Creatinine 1.7H, Estimat Glomerular Filtration Rate , Glucose Level 134H, Calcium Level 8.6 Height (Feet): 5 Height (Inches): 7.00 Weight (Pounds): 183 General Appearance: lethargic EENT: normal ENT inspection Neck: normal alignment Cardiovascular: normal peripheral pulses, normal rate, regular rhythm Respiratory/Chest: chest wall non-tender, lungs clear, normal breath sounds Abdomen: normal bowel sounds, non tender, soft Extremities: normal inspection Edema: no edema noted Arm (L), no edema noted Arm (R), no edema noted Leg (L), no edema noted Leg (R), no edema noted Pedal (L), no edema noted Pedal (R), no edema noted Generalized Neurologic: motor weakness Skin: normal pigmentation, warm/dry Keating,Jama Chi-Lisa Apr 29, 2019 08:35
[2019-04-29] MEDS: Midodrine 10mg tab NG SCH ×3 (08:39→18:15)
--- NOTE | 2019-04-29 08:53 | General Progress Note ---
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 ICD Codes: E11.22 - Type 2 diabetes mellitus with diabetic chronic kidney disease; N18.4 - Chronic kidney disease, stage 4 (severe) SNOMED: 07075056, 212225845, 948292294 (3) Diabetes mellitus ICD Codes: E11.9 - Type 2 diabetes mellitus without complications SNOMED: 21401866 (4) CAD (coronary artery disease) ICD Codes: I25.10 - Atherosclerotic heart disease of [place] coronary artery without angina pectoris SNOMED: 33701772 (5) History of CVA (cerebrovascular accident) ICD Codes: Z86.73 - Personal history of transient ischemic attack (TIA), and cerebral infarction without residual deficits SNOMED: 148179201 (6) Anemia in chronic kidney disease (CKD) ICD Codes: N18.9 - Chronic kidney disease, unspecified; D63.1 - Anemia in chronic kidney disease SNOMED: 350425337 (7) Diabetic nephropathy ICD Codes: E11.21 - Type 2 diabetes mellitus with diabetic nephropathy SNOMED: 681357231 Status: unchanged Assessment/Plan: intubated GTF fu labs fu pulm recs prn blood transfusion ppi Subjective ROS Limited/Unobtainable: No Allergies: Coded Allergies: No Known Allergies (Unverified , 04/12/19) Objective Last 24 Hour Vital Signs Date Time Temp Pulse Resp B/P (MAP) Pulse Ox O2 Delivery O2 Flow Rate FiO2 04/29/19 08:49 84 18 30 04/29/19 08:00 98.8 83 16 141/61 (87) 96 04/29/19 08:00 30 04/29/19 08:00 Mechanical Ventilator 04/29/19 07:17 72 16 30 04/29/19 07:00 73 16 138/73 (94) 97 04/29/19 06:00 92 18 150/67 (94) 96 04/29/19 05:23 89 16 30 30 04/29/19 05:00 84 16 147/71 (96) 97 04/29/19 04:00 89 04/29/19 04:00 30 04/29/19 04:00 99.1 89 22 150/80 (103) 98 04/29/19 04:00 Mechanical Ventilator 04/29/19 03:35 87 16 30 30 04/29/19 03:00 85 17 140/91 (107) 96 04/29/19 02:00 86 20 140/74 (96) 98 04/29/19 01:04 78 16 30 30 04/29/19 01:00 85 19 140/67 (91) 98 04/29/19 00:00 98.9 92 16 144/70 (94) 98 04/29/19 00:00 Mechanical Ventilator 04/29/19 00:00 92 04/29/19 00:00 30 04/28/19 23:00 81 16 137/71 (93) 98 04/28/19 22:55 68 16 30 30 04/28/19 22:00 81 16 135/64 (87) 98 04/28/19 21:00 81 16 125/56 (79) 98 04/28/19 20:41 81 16 30 30 04/28/19 20:00 81 04/28/19 20:00 Mechanical Ventilator 04/28/19 20:00 99.2 81 17 134/69 (90) 99 04/28/19 20:00 30 04/28/19 19:29 90 16 30 30 04/28/19 19:00 80 20 132/66 (88) 99 04/28/19 18:00 79 16 138/72 (94) 99 04/28/19 17:15 90 16 30 04/28/19 17:00 84 18 126/73 (90) 100 04/28/19 16:00 Mechanical Ventilator 04/28/19 16:00 98.5 86 22 116/73 (87) 96 04/28/19 16:00 30 04/28/19 16:00 101 04/28/19 15:21 95 16 30 04/28/19 15:00 93 25 131/66 (87) 95 04/28/19 14:30 100 21 119/71 (87) 96 04/28/19 14:00 98 26 113/69 (84) 97 04/28/19 14:00 98 26 113/69 (84) 97 04/28/19 13:30 92 16 126/63 (84) 96 04/28/19 13:00 87 26 113/69 (84) 97 7/3/19 12:47 99 16 30 04/28/19 12:00 30 04/28/19 12:00 98.9 89 16 107/56 (73) 96 04/28/19 12:00 88 04/28/19 12:00 Mechanical Ventilator 04/28/19 11:07 113 16 30 04/28/19 11:00 93 16 106/69 (81) 96 04/28/19 10:00 89 16 111/57 (75) 97 04/28/19 09:07 97 16 30 04/28/19 09:00 86 16 116/64 (81) 97 Intake and Output 04/28/19 04/29/19 18:59 06:59 Intake Total 990 ml 1270 ml Output Total 450 ml 720 ml Balance 540 ml 550 ml Free Water 100 ml 300 ml IV Total 110 ml Tube Feeding 780 ml 720 ml Blood Product 250 ml Output Urine Total 450 ml 420 ml Stool Total 300 ml Laboratory Tests 04/29/19 05:00: White Blood Count 10.3, Red Blood Count 2.93L, Hemoglobin 8.4L, Hematocrit 25.9L , Mean Corpuscular Volume 88, Mean Corpuscular Hemoglobin 28.7, Mean Corpuscular Hemoglobin Concent 32.6, Red Cell Distribution Width 14.5, Platelet Count 166, Mean Platelet Volume 7.1, Neutrophils (%) (Auto) 78.3H, Lymphocytes ( %) (Auto) 14.4L, Monocytes (%) (Auto) 6.6, Eosinophils (%) (Auto) 0.0, Basophils (%) (Auto) 0.7, Sodium Level 147H, Potassium Level 4.4, Chloride Level 110H, Carbon Dioxide Level 27, Anion Gap 10, Blood Urea Nitrogen 51H, Creatinine 1.7H, Estimat Glomerular Filtration Rate , Glucose Level 134H, Calcium Level 8.6 Height (Feet): 5 Height (Inches): 7.00 Weight (Pounds): 183 General Appearance: alert EENT: normal ENT inspection Neck: supple Cardiovascular: normal rate Respiratory/Chest: decreased breath sounds Abdomen: normal bowel sounds, non tender, soft Extremities: non-tender Darron Gentile MD Apr 29, 2019 08:53
--- NOTE | 2019-04-29 09:32 | NUR ---
NURSE NOTES: SUCTIONED AND REPOSITIONED PATIENT.
--- NOTE | 2019-04-29 11:25 | NUR ---
NURSE NOTES: PATIENT IS AWAKE, TOLERATING VENT SETTINGS AND GTF. NO SIGNS OF DISTRESS. WILL CONTINUE TO MONITOR.
--- NOTE | 2019-04-29 11:26 | Nephrology Progress Note ---
Assessment/Plan Problem List: (1) Renal failure (ARF), acute on chronic (2) Diabetic nephropathy (3) Sepsis (4) Pneumonia (5) Right hemiplegia (6) Anemia in chronic kidney disease (CKD) (7) Pulmonary hypertension Assessment intubated Renal failure; - Pre Renal - ? Underlying Renal Anemia Pneumonia / respiratory failure Sepsis elevated Troponin UTI HyperGlycemia / DM Right Esvin HTN Plan due trach in am kayexelate as needed discussed with RN transfuse for low Hgb as needed K Phos IV as needed venofer Folate 24 H urine protein check 2.4 gram Fraga Hydrate BP and BS control urine studies slow hydrate kidney MAIKEL results noted: No [place] 2D echo Noted visualized except distal setum and inferiro wall hypokinesis Left ventricular ejection fraction estimated to be 55-60 %. avoid Nephrotoxics per orders Subjective ROS Limited/Unobtainable: Yes Objective Objective Last 24 Hour Vital Signs Date Time Temp Pulse Resp B/P (MAP) Pulse Ox O2 Delivery O2 Flow Rate FiO2 04/29/19 11:00 65 18 159/75 (103) 98 04/29/19 10:46 65 16 30 04/29/19 10:00 65 18 158/75 (102) 96 04/29/19 09:00 72 16 163/83 (109) 96 04/29/19 08:49 84 18 30 04/29/19 08:00 79 04/29/19 08:00 98.8 83 16 141/61 (87) 96 04/29/19 08:00 30 04/29/19 08:00 Mechanical Ventilator 04/29/19 07:17 72 16 30 04/29/19 07:00 73 16 138/73 (94) 97 04/29/19 06:00 92 18 150/67 (94) 96 04/29/19 05:23 89 16 30 30 04/29/19 05:00 84 16 147/71 (96) 97 04/29/19 04:00 89 04/29/19 04:00 30 04/29/19 04:00 99.1 89 22 150/80 (103) 98 04/29/19 04:00 Mechanical Ventilator 04/29/19 03:35 87 16 30 30 04/29/19 03:00 85 17 140/91 (107) 96 04/29/19 02:00 86 20 140/74 (96) 98 04/29/19 01:04 78 16 30 30 04/29/19 01:00 85 19 140/67 (91) 98 04/29/19 00:00 98.9 92 16 144/70 (94) 98 04/29/19 00:00 Mechanical Ventilator 04/29/19 00:00 92 04/29/19 00:00 30 04/28/19 23:00 81 16 137/71 (93) 98 04/28/19 22:55 68 16 30 30 04/28/19 22:00 81 16 135/64 (87) 98 04/28/19 21:00 81 16 125/56 (79) 98 04/28/19 20:41 81 16 30 30 04/28/19 20:00 81 04/28/19 20:00 Mechanical Ventilator 04/28/19 20:00 99.2 81 17 134/69 (90) 99 04/28/19 20:00 30 04/28/19 19:29 90 16 30 30 04/28/19 19:00 80 20 132/66 (88) 99 04/28/19 18:00 79 16 138/72 (94) 99 04/28/19 17:15 90 16 30 04/28/19 17:00 84 18 126/73 (90) 100 04/28/19 16:00 Mechanical Ventilator 04/28/19 16:00 98.5 86 22 116/73 (87) 96 04/28/19 16:00 30 04/28/19 16:00 101 04/28/19 15:21 95 16 30 04/28/19 15:00 93 25 131/66 (87) 95 04/28/19 14:30 100 21 119/71 (87) 96 04/28/19 14:00 98 26 113/69 (84) 97 04/28/19 14:00 98 26 113/69 (84) 97 04/28/19 13:30 92 16 126/63 (84) 96 04/28/19 13:00 87 26 113/69 (84) 97 04/28/19 12:47 99 16 30 04/28/19 12:00 30 04/28/19 12:00 98.9 89 16 107/56 (73) 96 04/28/19 12:00 88 04/28/19 12:00 Mechanical Ventilator Intake and Output 04/28/19 04/29/19 19:00 07:00 Intake Total 1340 ml 920 ml Output Total 750 ml 410 ml Balance 590 ml 510 ml Free Water 200 ml 200 ml IV Total 110 ml Tube Feeding 780 ml 720 ml Blood Product 250 ml Output Urine Total 450 ml 410 ml Stool Total 300 ml Laboratory Tests 04/29/19 05:00: White Blood Count 10.3, Red Blood Count 2.93L, Hemoglobin 8.4L, Hematocrit 25.9L , Mean Corpuscular Volume 88, Mean Corpuscular Hemoglobin 28.7, Mean Corpuscular Hemoglobin Concent 32.6, Red Cell Distribution Width 14.5, Platelet Count 166, Mean Platelet Volume 7.1, Neutrophils (%) (Auto) 78.3H, Lymphocytes ( %) (Auto) 14.4L, Monocytes (%) (Auto) 6.6, Eosinophils (%) (Auto) 0.0, Basophils (%) (Auto) 0.7, Sodium Level 147H, Potassium Level 4.4, Chloride Level 110H, Carbon Dioxide Level 27, Anion Gap 10, Blood Urea Nitrogen 51H, Creatinine 1.7H, Estimat Glomerular Filtration Rate , Glucose Level 134H, Calcium Level 8.6 Height (Feet): 5 Height (Inches): 7.00 Weight (Pounds): 183 General Appearance: no apparent distress Objective no change Wally Spivey MD Apr 29, 2019 11:26
--- NOTE | 2019-04-29 12:51 | Surgery Progress Note ---
Surgery Progress Note Subjective Additional Comments eyes open spont tracking on vent support Objective Last 24 Hour Vital Signs Date Time Temp Pulse Resp B/P (MAP) Pulse Ox O2 Delivery O2 Flow Rate FiO2 04/29/19 12:46 63 16 30 04/29/19 12:00 30 04/29/19 12:00 99.0 73 16 155/77 (103) 96 04/29/19 12:00 Mechanical Ventilator 04/29/19 11:00 65 18 159/75 (103) 98 04/29/19 10:46 65 16 30 04/29/19 10:00 65 18 158/75 (102) 96 04/29/19 09:00 72 16 163/83 (109) 96 04/29/19 08:49 84 18 30 04/29/19 08:00 79 04/29/19 08:00 98.8 83 16 141/61 (87) 96 04/29/19 08:00 30 04/29/19 08:00 Mechanical Ventilator 04/29/19 07:17 72 16 30 04/29/19 07:00 73 16 138/73 (94) 97 04/29/19 06:00 92 18 150/67 (94) 96 04/29/19 05:23 89 16 30 30 04/29/19 05:00 84 16 147/71 (96) 97 04/29/19 04:00 89 04/29/19 04:00 30 04/29/19 04:00 99.1 89 22 150/80 (103) 98 04/29/19 04:00 Mechanical Ventilator 04/29/19 03:35 87 16 30 30 04/29/19 03:00 85 17 140/91 (107) 96 04/29/19 02:00 86 20 140/74 (96) 98 04/29/19 01:04 78 16 30 30 04/29/19 01:00 85 19 140/67 (91) 98 04/29/19 00:00 98.9 92 16 144/70 (94) 98 04/29/19 00:00 Mechanical Ventilator 04/29/19 00:00 92 04/29/19 00:00 30 04/28/19 23:00 81 16 137/71 (93) 98 04/28/19 22:55 68 16 30 30 04/28/19 22:00 81 16 135/64 (87) 98 04/28/19 21:00 81 16 125/56 (79) 98 04/28/19 20:41 81 16 30 30 04/28/19 20:00 81 04/28/19 20:00 Mechanical Ventilator 04/28/19 20:00 99.2 81 17 134/69 (90) 99 04/28/19 20:00 30 04/28/19 19:29 90 16 30 30 04/28/19 19:00 80 20 132/66 (88) 99 04/28/19 18:00 79 16 138/72 (94) 99 04/28/19 17:15 90 16 30 04/28/19 17:00 84 18 126/73 (90) 100 04/28/19 16:00 Mechanical Ventilator 04/28/19 16:00 98.5 86 22 116/73 (87) 96 04/28/19 16:00 30 04/28/19 16:00 101 04/28/19 15:21 95 16 30 04/28/19 15:00 93 25 131/66 (87) 95 04/28/19 14:30 100 21 119/71 (87) 96 04/28/19 14:00 98 26 113/69 (84) 97 04/28/19 14:00 98 26 113/69 (84) 97 04/28/19 13:30 92 16 126/63 (84) 96 04/28/19 13:00 87 26 113/69 (84) 97 I&O Intake and Output 04/28/19 04/29/19 19:00 07:00 Intake Total 1340 ml 920 ml Output Total 750 ml 410 ml Balance 590 ml 510 ml Free Water 200 ml 200 ml IV Total 110 ml Tube Feeding 780 ml 720 ml Blood Product 250 ml Output Urine Total 450 ml 410 ml Stool Total 300 ml Cardiovascular: RSR Respiratory: decreased breath sounds, other Abdomen: soft, non-tender, non-distended Extremities: no cyanosis Laboratory Tests Test 04/29/19 05:00 White Blood Count 10.3 K/UL (4.8-10.8) Red Blood Count 2.93 M/UL (4.20-5.40) L Hemoglobin 8.4 G/DL (12.0-16.0) L Hematocrit 25.9 % (37.0-47.0) L Mean Corpuscular Volume 88 FL (80-99) Mean Corpuscular Hemoglobin 28.7 PG (27.0-31.0) Mean Corpuscular Hemoglobin Concent 32.6 G/DL (32.0-36.0) Red Cell Distribution Width 14.5 % (11.6-14.8) Platelet Count 166 K/UL (150-450) Mean Platelet Volume 7.1 FL (6.5-10.1) Neutrophils (%) (Auto) 78.3 % (45.0-75.0) H Lymphocytes (%) (Auto) 14.4 % (20.0-45.0) L Monocytes (%) (Auto) 6.6 % (1.0-10.0) Eosinophils (%) (Auto) 0.0 % (0.0-3.0) Basophils (%) (Auto) 0.7 % (0.0-2.0) Sodium Level 147 MMOL/L (136-145) H Potassium Level 4.4 MMOL/L (3.5-5.1) Chloride Level 110 MMOL/L (98-107) H Carbon Dioxide Level 27 MMOL/L (21-32) Anion Gap 10 mmol/L (5-15) Blood Urea Nitrogen 51 mg/dL (7-18) H Creatinine 1.7 MG/DL (0.55-1.30) H Estimat Glomerular Filtration Rate mL/min (>60) Glucose Level 134 MG/DL (74-106) H Calcium Level 8.6 MG/DL (8.5-10.1) Plan Problems: (1) Respiratory distress Assessment & Plan: has been on vents support for near two weeks cannot wean and does not tolerate weaning trials trach indicated and recommended will obtain consent and schedule (2) Malnutrition (3) UTI (urinary tract infection) (4) Diabetic nephropathy (5) Renal failure (ARF), acute on chronic (6) Anemia in chronic kidney disease (CKD) (7) Pulmonary hypertension (8) Acute respiratory failure (9) Respiratory failure (10) Hypernatremia (11) Sepsis Assessment & Plan: cont with current care trend labs will follow with recs (12) Pneumonia (13) History of CVA (cerebrovascular accident) (14) CAD (coronary artery disease) (15) Right hemiplegia (16) Diabetes mellitus (17) Hypertensive heart disease (18) 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 (19) Nosocomial pneumonia (20) At high risk for aspiration (21) Acute metabolic encephalopathy Devaughn Marin Apr 29, 2019 12:51
--- NOTE | 2019-04-29 14:27 | Cardiac Electrophysiology PN ---
Assessment/Plan Assessment/Plan 1. Atrial flutter, self terminated. Off AVN jose for low BP 2. Hypotension. On Midodrine 10 tid 3. Coronary artery disease. On Plavix 75 mg daily 4. Respiratory failure, intubated EF 60%. Tracheostomy pending Friday. 5. Sepsis. White count 25,000. On IV abx 6. Anemia.S/P PRBC. 7. Renal failure BUN/Cr improved to 38/1.[address] Spivey 8. Dysphagia. S/P PEG 04/22/19 9. History of CVA with hemiplegia. 10. Nonverbal status. 11. Full code DW RN Subjective Subjective Intubated in ICU.Off pressors. S/P PRBC . Tracheostomy pending on Friday. No arrhythmias Objective Last 24 Hour Vital Signs Date Time Temp Pulse Resp B/P (MAP) Pulse Ox O2 Delivery O2 Flow Rate FiO2 04/29/19 14:00 80 04/29/19 14:00 63 16 168/73 (104) 96 04/29/19 13:00 85 16 163/76 (105) 98 04/29/19 12:46 63 16 30 04/29/19 12:00 30 04/29/19 12:00 99.0 73 16 155/77 (103) 96 04/29/19 12:00 Mechanical Ventilator 04/29/19 11:00 65 18 159/75 (103) 98 04/29/19 10:46 65 16 30 04/29/19 10:00 65 18 158/75 (102) 96 04/29/19 09:00 72 16 163/83 (109) 96 04/29/19 08:49 84 18 30 04/29/19 08:00 79 04/29/19 08:00 98.8 83 16 141/61 (87) 96 04/29/19 08:00 30 04/29/19 08:00 Mechanical Ventilator 04/29/19 07:17 72 16 30 04/29/19 07:00 73 16 138/73 (94) 97 04/29/19 06:00 92 18 150/67 (94) 96 04/29/19 05:23 89 16 30 30 04/29/19 05:00 84 16 147/71 (96) 97 04/29/19 04:00 89 04/29/19 04:00 30 04/29/19 04:00 99.1 89 22 150/80 (103) 98 04/29/19 04:00 Mechanical Ventilator 04/29/19 03:35 87 16 30 30 04/29/19 03:00 85 17 140/91 (107) 96 04/29/19 02:00 86 20 140/74 (96) 98 04/29/19 01:04 78 16 30 30 04/29/19 01:00 85 19 140/67 (91) 98 04/29/19 00:00 98.9 92 16 144/70 (94) 98 04/29/19 00:00 Mechanical Ventilator 04/29/19 00:00 92 04/29/19 00:00 30 04/28/19 23:00 81 16 137/71 (93) 98 04/28/19 22:55 68 16 30 30 04/28/19 22:00 81 16 135/64 (87) 98 04/28/19 21:00 81 16 125/56 (79) 98 04/28/19 20:41 81 16 30 30 04/28/19 20:00 81 04/28/19 20:00 Mechanical Ventilator 04/28/19 20:00 99.2 81 17 134/69 (90) 99 04/28/19 20:00 30 04/28/19 19:29 90 16 30 30 04/28/19 19:00 80 20 132/66 (88) 99 04/28/19 18:00 79 16 138/72 (94) 99 04/28/19 17:15 90 16 30 04/28/19 17:00 84 18 126/73 (90) 100 04/28/19 16:00 Mechanical Ventilator 04/28/19 16:00 98.5 86 22 116/73 (87) 96 04/28/19 16:00 30 04/28/19 16:00 101 04/28/19 15:21 95 16 30 04/28/19 15:00 93 25 131/66 (87) 95 04/28/19 14:30 100 21 119/71 (87) 96 Intake and Output 04/28/19 04/29/19 19:00 07:00 Intake Total 1340 ml 920 ml Output Total 750 ml 410 ml Balance 590 ml 510 ml Free Water 200 ml 200 ml IV Total 110 ml Tube Feeding 780 ml 720 ml Blood Product 250 ml Output Urine Total 450 ml 410 ml Stool Total 300 ml Laboratory Tests Test 04/29/19 05:00 White Blood Count 10.3 K/UL (4.8-10.8) Red Blood Count 2.93 M/UL (4.20-5.40) L Hemoglobin 8.4 G/DL (12.0-16.0) L Hematocrit 25.9 % (37.0-47.0) L Mean Corpuscular Volume 88 FL (80-99) Mean Corpuscular Hemoglobin 28.7 PG (27.0-31.0) Mean Corpuscular Hemoglobin Concent 32.6 G/DL (32.0-36.0) Red Cell Distribution Width 14.5 % (11.6-14.8) Platelet Count 166 K/UL (150-450) Mean Platelet Volume 7.1 FL (6.5-10.1) Neutrophils (%) (Auto) 78.3 % (45.0-75.0) H Lymphocytes (%) (Auto) 14.4 % (20.0-45.0) L Monocytes (%) (Auto) 6.6 % (1.0-10.0) Eosinophils (%) (Auto) 0.0 % (0.0-3.0) Basophils (%) (Auto) 0.7 % (0.0-2.0) Sodium Level 147 MMOL/L (136-145) H Potassium Level 4.4 MMOL/L (3.5-5.1) Chloride Level 110 MMOL/L (98-107) H Carbon Dioxide Level 27 MMOL/L (21-32) Anion Gap 10 mmol/L (5-15) Blood Urea Nitrogen 51 mg/dL (7-18) H Creatinine 1.7 MG/DL (0.55-1.30) H Estimat Glomerular Filtration Rate mL/min (>60) Glucose Level 134 MG/DL (74-106) H Calcium Level 8.6 MG/DL (8.5-10.1) Objective HEAD AND NECK: No JVD. Orally intubated LUNGS: Coarse rhonchi bilaterally. CARDIOVASCULAR: Regular S1 and S2 with no gallop. ABDOMEN: Soft.PEG in place EXTREMITIES: No pitting edema. Claude Pena MD Apr 29, 2019 14:27
--- NOTE | 2019-04-29 17:11 | NUR ---
NURSE NOTES: RECEIVED PATIENT FROM [facility]. PATIENT IS SEEN LYING IN BED, AWAKE, ALERT AND ORIENTED. ON ROOM AIR. NO SIGNS OF DISTRESS. SKIN IS INTACT. IVS ON R FA G20, PICC LINE ON UA, TKO. SIDE RAILS UP. BED AT LOWEST POSITION. WILL CONTINUE TO MONITOR. Addendum: 04/29/19 at 1853 by CYNTHIA PIZARRO RN NURSE NOTES: WRONG ENTRY.
--- NOTE | 2019-04-29 17:28 | NUR ---
CASE MANAGEMENT: REVIEW 04/29/2019 04/28/2019 SI: ACUTE RESPIRATORY FAILURE ENCEPHALOPATHY. PNA T 98.9 HR 78 RR 16 B/P 160/86 SATS 98% ON MECH VENT FIO2 30 NA 147 CL 110 BUN 51 CR 1.7 GLU 134 IS: IV CEFEPIME Q24 EPOETIN SQ MWF : ICU STATUS INTUBATED DCP: FROM [facility] PLAN OF CARE: CONSENT OBTAINED FROM SON FOR TRACH AND BRONCH >> PT NOT STABLE PER SURGEON
--- NOTE | 2019-04-29 17:32 | NUR ---
INSURANCE CLINICALS AND REVIEWS FAXED TO [facility] T: [phone] F:[phone]
--- NOTE | 2019-04-29 18:52 | NUR ---
NURSE NOTES: PATIENT KEPT CLEAN AND DRY. WILL CONTINUE TO MONITOR.
--- NOTE | 2019-04-29 18:54 | Neurology Progress Note ---
Interim History Interim History ROS Limited/Unobtainable: Yes Complaints: AMS Events: Weaning attempts unsuccessful, PEG placed/awaiting Trach Interim History no changes, tracks with eyes Objective Physical Exam Last Vital Signs Date Time Temp Pulse Resp B/P (MAP) Pulse Ox O2 Delivery O2 Flow Rate FiO2 04/29/19 18:00 85 21 156/85 (108) 100 04/29/19 16:44 30 04/29/19 16:00 Mechanical Ventilator 04/29/19 16:00 98.9 Laboratory Tests Test 04/29/19 05:00 White Blood Count 10.3 K/UL (4.8-10.8) Red Blood Count 2.93 M/UL (4.20-5.40) L Hemoglobin 8.4 G/DL (12.0-16.0) L Hematocrit 25.9 % (37.0-47.0) L Mean Corpuscular Volume 88 FL (80-99) Mean Corpuscular Hemoglobin 28.7 PG (27.0-31.0) Mean Corpuscular Hemoglobin Concent 32.6 G/DL (32.0-36.0) Red Cell Distribution Width 14.5 % (11.6-14.8) Platelet Count 166 K/UL (150-450) Mean Platelet Volume 7.1 FL (6.5-10.1) Neutrophils (%) (Auto) 78.3 % (45.0-75.0) H Lymphocytes (%) (Auto) 14.4 % (20.0-45.0) L Monocytes (%) (Auto) 6.6 % (1.0-10.0) Eosinophils (%) (Auto) 0.0 % (0.0-3.0) Basophils (%) (Auto) 0.7 % (0.0-2.0) Sodium Level 147 MMOL/L (136-145) H Potassium Level 4.4 MMOL/L (3.5-5.1) Chloride Level 110 MMOL/L (98-107) H Carbon Dioxide Level 27 MMOL/L (21-32) Anion Gap 10 mmol/L (5-15) Blood Urea Nitrogen 51 mg/dL (7-18) H Creatinine 1.7 MG/DL (0.55-1.30) H Estimat Glomerular Filtration Rate mL/min (>60) Glucose Level 134 MG/DL (74-106) H Calcium Level 8.6 MG/DL (8.5-10.1) General: well developed, well nourished, no acute distress Head: normocophalic Neck: no rigidity EENT: benign Neurologic Exam Mental Status: awake, other Speech: other Language: other Cranial Nerve II: fundus normal, visual cruz, no papilledema, other Cranial Nerves III, IV, : PERRLA, EOMI, other Cranial Nerve V: other Cranial Nerve VII: other Cranial Nerve VIII: other Cranial Nerve IX: other Cranial Nerve XI: other Cranial Nerve XII: other Motor System: other Sensory: other Coordination: other Gait: other Objective Not following commands Moving all 4 ext spontaneously CN intact Impression/Recommendations Problems: (1) Respiratory distress (2) Malnutrition (3) UTI (urinary tract infection) (4) Diabetic nephropathy (5) Renal failure (ARF), acute on chronic (6) Anemia in chronic kidney disease (CKD) (7) Pulmonary hypertension (8) Acute respiratory failure (9) Respiratory failure (10) Hypernatremia (11) Sepsis (12) Pneumonia (13) History of CVA (cerebrovascular accident) (14) CAD (coronary artery disease) (15) Right hemiplegia (16) Diabetes mellitus (17) Hypertensive heart disease (18) 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 (19) Nosocomial pneumonia (20) At high risk for aspiration (21) Acute metabolic encephalopathy Status: unchanged Recommendations Cont current management Wean to extubate map > 65 neuro exam non focal - monitor dw icu nurse Geo Espitia MD Apr 29, 2019 18:54
--- NOTE | 2019-04-29 19:08 | NUR ---
RESPIRATORY NOTE:Received pt. on 840 vent. Vent settings are: A/C rate of 16, Vt 500, FI02 30%, PEEP +5. No respiratory distress noted, pt. sP02 @ 100%. Ambu bag @ BS. Vent plugged on red outlet. Will continue to monitor pt.
--- NOTE | 2019-04-29 19:30 | NUR ---
NURSE NOTES:received pt with eyes open,Pt with eyes contact. orally intubated on AC mode,
--- NOTE | 2019-04-29 19:30 | NUR ---
NURSE NOTES:received pt, with eyes open, orally intubated on ac mode, pt has eye contact , SR on the monitor, Bp stable, afebrile, tolerated Gt fdg Glucerna 1.2 at 60ml/hr, no residuals , Pt has sacral stage 2 with optifoam drsg dry and intact, Pt on p200 mattress, Turned q 2hrs with good skin care done. Rt cheek skin tear with drsg as well.pt with PICC line ,left upper arm. Rt arm weak, Left arm with soft wrist restraints maintained for safety to avoid self extubation.Will continue to monitor,
--- NOTE | 2019-04-29 19:34 | NUR ---
HAND-OFF: Report given to Laurie Zuniga RN.
[2019-04-29] MEDS: Dyna-Hex 2% Top Sol 2oz TOPIC SCH (20:08)
[2019-04-29] MEDS ORDERED: NS 275ml ONE (21:05)
[2019-04-29] MEDS ORDERED: Tubing Blood Filter IV ONE (21:05)
[2019-04-29] MEDS ORDERED: Tubing IV Secondary IV ONE (21:05)
--- NOTE | 2019-04-29 21:30 | NUR ---
NURSE NOTES:Turned to sides for comfort, rectal tube came out with baloon inflated. soft stool noted, discontinued rectal tube.Cleaned up pt.
--- NOTE | 2019-04-29 23:30 | NUR ---
NURSE NOTES: Suctioned tn tk whitish beige secretions moderate in amt. 02 sat 100%.Hob kept elevated.Watch for any resp. distress.
[2019-04-30] VITALS (24 sets, daily range): BP systolic 130–159; BP diastolic 65–81
--- NOTE | 2019-04-30 01:00 | NUR ---
NURSE NOTES:Sleeping well at this time. VSS
[2019-04-30] MEDS: NovoLOG Insulin Flexpen SUBQ SCH ×5 (01:02→23:04)
--- NOTE | 2019-04-30 03:00 | NUR ---
NURSE NOTES:Complete bath with bed changed done.
--- NOTE | 2019-04-30 05:00 | NUR ---
NURSE NOTES:sacral drg was changed , wound appeared dry.
[2019-04-30 05:29] LABS: BASOPHILS % (AUTO) 0.9 % (0.0-2.0); HEMATOCRIT 27.1 % (37.0-47.0); HEMOGLOBIN 8.7 G/DL (12.0-16.0); LYMPHOCYTES % (AUTO) 17.6 % (20.0-45.0); MEAN CORPUSCULAR VOLUME 89 FL (80-99); MONOCYTES % (AUTO) 4.5 % (1.0-10.0); PLATELET COUNT 170 K/UL (150-450); RED BLOOD COUNT 3.06 M/UL (4.20-5.40); RED CELL DISTRIBUTION WIDTH 15.2 % (11.6-14.8); WHITE BLOOD COUNT 11.8 K/UL (4.8-10.8)
[2019-04-30 05:54] LABS: INR 1.1 (0.9-1.1)
[2019-04-30 05:56] LABS: ALANINE AMINOTRANSFERASE 16 U/L (12-78); ALBUMIN 1.3 G/DL (3.4-5.0); ALBUMIN/GLOBULIN RATIO 0.2 (1.0-2.7); ALKALINE PHOSPHATASE 118 U/L (46-116); ANION GAP 7 mmol/L (5-15); ASPARTATE AMINO TRANSFERASE 35 U/L (15-37); BILIRUBIN,TOTAL 0.3 MG/DL (0.2-1.0); BLOOD UREA NITROGEN 59 mg/dL (7-18); CALCIUM 8.5 MG/DL (8.5-10.1); CARBON DIOXIDE 29 MMOL/L (21-32); CHLORIDE 107 MMOL/L (98-107); CREATININE 1.6 MG/DL (0.55-1.30); PHOSPHORUS 4.3 MG/DL (2.5-4.9); POTASSIUM 4.4 MMOL/L (3.5-5.1); SODIUM 143 MMOL/L (136-145)
--- NOTE | 2019-04-30 06:00 | NUR ---
NURSE NOTES:accucheck with coverage. Pls see diabetic sheets.
--- NOTE | 2019-04-30 06:15 | Progress Note ---
DATE: 04/29/2019 SUBJECTIVE: This is a 79-year-old female patient with sepsis. She has decline in cognition below her baseline, mood lability, anxiety, and depression. That is why her attending physician has requested daily psychiatric consultation. confused, disorganized, and mood labile. DIAGNOSIS: Major depressive disorder, mild, recurrent with psychotic features, rule out dementia with psychosis. PLAN: Treat her with medication regimen to stabilize her mood. Provided with 20 minutes of reality-based supportive psychotherapy. Continue to help her to reduce agitation and anxiety with Ativan 2 mg IV q.4 h. She will continue to be followed by Psychiatry. Chart was reviewed. Discussed with staff. Seen and assessed in her room. Omar Glover M.D. DR: ALEXI JOB#: [id number] CC:
--- NOTE | 2019-04-30 07:10 | NUR ---
NURSE NOTES: Received pt from [facility]. A/Ox1, opens and tracks eyes, does not follow commands. Orally intubated ETT 7.5/23cm at lip line, AC 16/TV500/Fio2 30%/PEEP 5. Breathing even and unlabored. Rhonchi heard bilateral b/s. NSR on site monitor, HR 90. Soft wrist restraints placed on left side only. Patient is weak on right side from past CVA. Glucerna 1.2@60ml/hr via PEG. No residual, HOB 35 degrees. FC draining about 50ml/hr to gravity. SUZIE PICC asymptomatic and patent, dressing clean and intact. SCD's in place. Abdomen round, non-distended/tender. Bed locked, alarmed and in lowest position. Will continue plan of care.
--- NOTE | 2019-04-30 07:16 | NUR ---
RESPIRATORY NOTE: PT RECEIVED ON ACVC WITH CURRENT SETTINGS: 16, 500, 30%, +5. ALARMS ARE ON AND AUDIBLE. VENT CIRCUIT IS SECURE AND OUT OF THE WAY. SOFT WRIST RESTRAIN IS ON THE LEFT HAND AND IS IN PLACE AND PROPERLY ADJUSTED. NO S/S OF RESPIRATORY DISTRESS NOTED AT THIS TIME. WILL CONTINUE TO MONITOR.
--- NOTE | 2019-04-30 07:21 | NUR ---
HAND-OFF: Report given to farhana Rolle RN.
[2019-04-30] MEDS: Midodrine 10mg tab NG SCH ×3 (08:24→17:15)
--- NOTE | 2019-04-30 08:32 | General Progress Note ---
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 ICD Codes: E11.22 - Type 2 diabetes mellitus with diabetic chronic kidney disease; N18.4 - Chronic kidney disease, stage 4 (severe) SNOMED: 94957397, 357103995, 910838742 (7) Respiratory failure ICD Codes: J96.90 - Respiratory failure, unspecified, unspecified whether with hypoxia or hypercapnia SNOMED: 617961107 Qualifiers: Qualified Codes: J96.02 - Acute respiratory failure with hypercapnia Status: unchanged Assessment/Plan: pt diet abx o2 pulm tx neuro psyc eval cbc bmp am ltach eval Subjective Constitutional: Reports: weakness Allergies: Coded Allergies: No Known Allergies (Unverified , 04/12/19) All Systems: reviewed and negative except above Subjective intubated in icu Objective Last 24 Hour Vital Signs Date Time Temp Pulse Resp B/P (MAP) Pulse Ox O2 Delivery O2 Flow Rate FiO2 04/30/19 08:00 30 04/30/19 08:00 Mechanical Ventilator 04/30/19 07:16 76 16 30 04/30/19 07:00 89 18 157/77 (103) 100 04/30/19 06:00 83 18 149/77 (101) 100 04/30/19 05:22 84 17 30 04/30/19 05:00 82 21 140/77 (98) 100 04/30/19 04:00 98.0 84 21 147/77 (100) 100 04/30/19 04:00 30 04/30/19 04:00 84 04/30/19 04:00 Mechanical Ventilator 04/30/19 03:30 70 18 30 04/30/19 03:00 88 21 155/80 (105) 100 04/30/19 02:00 85 16 154/70 (98) 100 04/30/19 01:13 68 16 30 04/30/19 01:00 82 16 154/70 (98) 100 04/30/19 00:00 30 04/30/19 00:00 75 04/30/19 00:00 Mechanical Ventilator 04/30/19 00:00 98.2 66 16 157/75 (102) 100 04/29/19 23:00 66 16 160/74 (102) 100 04/29/19 22:34 80 16 30 04/29/19 22:00 71 18 156/73 (100) 99 04/29/19 21:30 88 16 30 04/29/19 21:00 81 18 151/80 (103) 99 04/29/19 20:00 Mechanical Ventilator 04/29/19 20:00 98.5 78 16 152/70 (97) 99 04/29/19 19:07 82 17 30 04/29/19 19:00 78 19 167/87 (113) 100 04/29/19 18:00 85 21 156/85 (108) 100 04/29/19 17:00 81 18 157/76 (103) 95 04/29/19 16:44 64 16 30 04/29/19 16:00 79 04/29/19 16:00 Mechanical Ventilator 04/29/19 16:00 30 04/29/19 16:00 98.9 78 16 160/86 (110) 98 04/29/19 15:00 70 16 162/80 (107) 96 04/29/19 14:36 100 16 30 04/29/19 14:00 80 04/29/19 14:00 63 16 168/73 (104) 96 04/29/19 13:00 85 16 163/76 (105) 98 04/29/19 12:46 63 16 30 04/29/19 12:00 30 04/29/19 12:00 99.0 73 16 155/77 (103) 96 04/29/19 12:00 Mechanical Ventilator 04/29/19 11:00 65 18 159/75 (103) 98 04/29/19 10:46 65 16 30 04/29/19 10:00 65 18 158/75 (102) 96 04/29/19 09:00 72 16 163/83 (109) 96 04/29/19 08:49 84 18 30 Intake and Output 04/29/19 04/30/19 18:59 06:59 Intake Total 820 ml 1230 ml Output Total 370 ml 650 ml Balance 450 ml 580 ml Free Water 100 ml 450 ml Tube Feeding 720 ml 780 ml Output Urine Total 370 ml 600 ml Stool Total 50 ml # Bowel Movements 1 Laboratory Tests 04/30/19 04:50: White Blood Count 11.8H, Red Blood Count 3.06L, Hemoglobin 8.7L, Hematocrit 27.1L, Mean Corpuscular Volume 89, Mean Corpuscular Hemoglobin 28.3, Mean Corpuscular Hemoglobin Concent 31.9L, Red Cell Distribution Width 15.2H, Platelet Count 170, Mean Platelet Volume 6.8, Neutrophils (%) (Auto) 75.0, Lymphocytes (%) (Auto) 17.6L, Monocytes (%) (Auto) 4.5, Eosinophils (%) (Auto) 2.0, Basophils (%) (Auto) 0.9, Prothrombin Time 11.4, Prothromb Time International Ratio 1.1, Activated Partial Thromboplast Time 33, Sodium Level 143, Potassium Level 4.4, Chloride Level 107, Carbon Dioxide Level 29, Anion Gap 7, Blood Urea Nitrogen 59H, Creatinine 1.6H, Estimat Glomerular Filtration Rate , Glucose Level 262#H, Calcium Level 8.5, Phosphorus Level 4.3, Magnesium Level 1.9, Total Bilirubin 0.3, Aspartate Amino Transf (AST/SGOT) 35, Alanine Aminotransferase (ALT/SGPT) 16, Alkaline Phosphatase 118H, Total Protein 6.5, Albumin 1.3L, Globulin 5.2, Albumin/Globulin Ratio 0.2L 04/30/19 07:57: Arterial Blood pH 7.454H, Arterial Blood Partial Pressure CO2 40.7, Arterial Blood Partial Pressure O2 74.9L, Arterial Blood HCO3 27.9H, Arterial Blood Oxygen Saturation 94.7L, Arterial Blood Base Excess 3.7H, Marlo Test Positive Height (Feet): 5 Height (Inches): 7.00 Weight (Pounds): 185 General Appearance: lethargic EENT: normal ENT inspection Neck: normal alignment Cardiovascular: normal peripheral pulses, normal rate, regular rhythm Respiratory/Chest: chest wall non-tender, lungs clear, normal breath sounds Abdomen: normal bowel sounds, non tender, soft Extremities: normal inspection Edema: no edema noted Arm (L), no edema noted Arm (R), no edema noted Leg (L), no edema noted Leg (R), no edema noted Pedal (L), no edema noted Pedal (R), no edema noted Generalized Neurologic: motor weakness Skin: normal pigmentation, warm/dry Jama Keating DO Apr 30, 2019 08:32
--- NOTE | 2019-04-30 09:00 | NUR ---
NURSE NOTES: Turned and repositioned. Kept dry and clean.
--- NOTE | 2019-04-30 10:07 | NUR ---
RADIOLOGY DEPT., CHEST X-RAY DONE.-P.DYE
--- NOTE | 2019-04-30 10:30 | Pulmonolgy Critical Care Note ---
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 (7) Hypertensive heart disease (8) Right hemiplegia (9) History of CVA (cerebrovascular accident) (10) CAD (coronary artery disease) Respiratory: monitor respiratory rate, adjust FIO2, CXR Cardiac: continue pressors, continue to monitor HR/BP Renal: F/U I&O, keep IV fluid, check electrolytes Infectious Disease: check cultures Gastrointestinal: continue feedings/current rate Endocrine: check TSH, check HgA1C Hematologic: transfuse if hgb<8.5 Neurologic: PRN Ativan, keep patient comfortable Affect: PRN ativan Prophylaxis: Heparin Disposition: keep in ICU Time Spent (Minutes): 40 Notes Reviewed: [facility], cardio, renal Discussed with: nurses, consultants, [facility] managermanager psychiatry - Objective Last 24 Hour Vital Signs Date Time Temp Pulse Resp B/P (MAP) Pulse Ox O2 Delivery O2 Flow Rate FiO2 04/30/19 08:40 101 16 30 04/30/19 08:00 30 04/30/19 08:00 Mechanical Ventilator 04/30/19 07:16 76 16 30 04/30/19 07:00 89 18 157/77 (103) 100 04/30/19 06:00 83 18 149/77 (101) 100 04/30/19 05:22 84 17 30 04/30/19 05:00 82 21 140/77 (98) 100 04/30/19 04:00 98.0 84 21 147/77 (100) 100 04/30/19 04:00 30 04/30/19 04:00 84 04/30/19 04:00 Mechanical Ventilator 04/30/19 03:30 70 18 30 04/30/19 03:00 88 21 155/80 (105) 100 04/30/19 02:00 85 16 154/70 (98) 100 04/30/19 01:13 68 16 30 04/30/19 01:00 82 16 154/70 (98) 100 04/30/19 00:00 30 04/30/19 00:00 75 04/30/19 00:00 Mechanical Ventilator 04/30/19 00:00 98.2 66 16 157/75 (102) 100 04/29/19 23:00 66 16 160/74 (102) 100 04/29/19 22:34 80 16 30 04/29/19 22:00 71 18 156/73 (100) 99 04/29/19 21:30 88 16 30 04/29/19 21:00 81 18 151/80 (103) 99 04/29/19 20:00 Mechanical Ventilator 04/29/19 20:00 98.5 78 16 152/70 (97) 99 04/29/19 19:07 82 17 30 04/29/19 19:00 78 19 167/87 (113) 100 04/29/19 18:00 85 21 156/85 (108) 100 04/29/19 17:00 81 18 157/76 (103) 95 04/29/19 16:44 64 16 30 04/29/19 16:00 79 04/29/19 16:00 Mechanical Ventilator 04/29/19 16:00 30 04/29/19 16:00 98.9 78 16 160/86 (110) 98 04/29/19 15:00 70 16 162/80 (107) 96 04/29/19 14:36 100 16 30 04/29/19 14:00 80 04/29/19 14:00 63 16 168/73 (104) 96 04/29/19 13:00 85 16 163/76 (105) 98 04/29/19 12:46 63 16 30 04/29/19 12:00 30 04/29/19 12:00 99.0 73 16 155/77 (103) 96 04/29/19 12:00 Mechanical Ventilator 04/29/19 11:00 65 18 159/75 (103) 98 04/29/19 10:46 65 16 30 Status: awake Condition: critical HEENT: atraumatic Lungs: clear Heart: regular Abdomen: soft, active bowel sounds Extremities: no C/C/E Decubiti: location Accucheck: 260 Critical Care - Subjective ROS Limited/Unobtainable: No Interval Events: comfortable, awake Condition: critical EKG Rhythm: Sinus Rhythm FI02: 30 Vent Support Breath Rate: 16 Vent Support Mode: AC Vent Tidal Volume: 500 Sputum Amount: Small PEEP: 5.0 PIP: 43 Tube Feeding Amount: 60 I&O: Intake and Output 04/29/19 04/30/19 18:59 06:59 Intake Total 820 ml 1230 ml Output Total 370 ml 650 ml Balance 450 ml 580 ml Free Water 100 ml 450 ml Tube Feeding 720 ml 780 ml Output Urine Total 370 ml 600 ml Stool Total 50 ml # Bowel Movements 1 ET-Tube: 7.5 ET Position: 23 Labs: Laboratory Tests Test 04/30/19 04:50 04/30/19 07:57 White Blood Count 11.8 K/UL (4.8-10.8) H Red Blood Count 3.06 M/UL (4.20-5.40) L Hemoglobin 8.7 G/DL (12.0-16.0) L Hematocrit 27.1 % (37.0-47.0) L Mean Corpuscular Volume 89 FL (80-99) Mean Corpuscular Hemoglobin 28.3 PG (27.0-31.0) Mean Corpuscular Hemoglobin Concent 31.9 G/DL (32.0-36.0) L Red Cell Distribution Width 15.2 % (11.6-14.8) H Platelet Count 170 K/UL (150-450) Mean Platelet Volume 6.8 FL (6.5-10.1) Neutrophils (%) (Auto) 75.0 % (45.0-75.0) Lymphocytes (%) (Auto) 17.6 % (20.0-45.0) L Monocytes (%) (Auto) 4.5 % (1.0-10.0) Eosinophils (%) (Auto) 2.0 % (0.0-3.0) Basophils (%) (Auto) 0.9 % (0.0-2.0) Prothrombin Time 11.4 SEC (9.30-11.50) Prothromb Time International Ratio 1.1 (0.9-1.1) Activated Partial Thromboplast Time 33 SEC (23-33) Sodium Level 143 MMOL/L (136-145) Potassium Level 4.4 MMOL/L (3.5-5.1) Chloride Level 107 MMOL/L (98-107) Carbon Dioxide Level 29 MMOL/L (21-32) Anion Gap 7 mmol/L (5-15) Blood Urea Nitrogen 59 mg/dL (7-18) H Creatinine 1.6 MG/DL (0.55-1.30) H Estimat Glomerular Filtration Rate mL/min (>60) Glucose Level 262 MG/DL (74-106) #H Calcium Level 8.5 MG/DL (8.5-10.1) Phosphorus Level 4.3 MG/DL (2.5-4.9) Magnesium Level 1.9 MG/DL (1.8-2.4) Total Bilirubin 0.3 MG/DL (0.2-1.0) Aspartate Amino Transf (AST/SGOT) 35 U/L (15-37) Alanine Aminotransferase (ALT/SGPT) 16 U/L (12-78) Alkaline Phosphatase 118 U/L (46-116) H Total Protein 6.5 G/DL (6.4-8.2) Albumin 1.3 G/DL (3.4-5.0) L Globulin 5.2 g/dL Albumin/Globulin Ratio 0.2 (1.0-2.7) L Arterial Blood pH 7.454 (7.350-7.450) Arterial Blood Partial Pressure CO2 40.7 mmHg (35.0-45.0) Arterial Blood Partial Pressure O2 74.9 mmHg (75.0-100.0) L Arterial Blood HCO3 27.9 mmol/L (22.0-26.0) H Arterial Blood Oxygen Saturation 94.7 % (95-100) L Arterial Blood Base Excess 3.7 (-2-2) H Marlo Test Positive Tony Springer MD Apr 30, 2019 10:30
--- NOTE | 2019-04-30 11:10 | NUR ---
NURSE NOTES: Oral care done. Wound care nurse at bedside. Right buttock skin sheer resolved. moisture noted under breasts and inner thighs.
--- NOTE | 2019-04-30 11:44 | Nephrology Progress Note ---
Assessment/Plan Problem List: (1) Renal failure (ARF), acute on chronic (2) Diabetic nephropathy (3) Sepsis (4) Pneumonia (5) Right hemiplegia (6) Anemia in chronic kidney disease (CKD) (7) Pulmonary hypertension Assessment intubated- Renal failure; - Pre Renal - ? Underlying Renal Anemia Pneumonia / respiratory failure Sepsis elevated Troponin UTI HyperGlycemia / DM Right Esvin HTN Plan due trach in am kayexelate as needed discussed with RN transfuse for low Hgb as needed K Phos IV as needed venofer Folate 24 H urine protein check 2.4 gram Fraga Hydrate BP and BS control urine studies slow hydrate kidney MAIKEL results noted: No [place] 2D echo Noted visualized except distal setum and inferiro wall hypokinesis Left ventricular ejection fraction estimated to be 55-60 %. avoid Nephrotoxics per orders Subjective ROS Limited/Unobtainable: Yes Objective Objective Last 24 Hour Vital Signs Date Time Temp Pulse Resp B/P (MAP) Pulse Ox O2 Delivery O2 Flow Rate FiO2 04/30/19 08:40 101 16 30 04/30/19 08:00 30 04/30/19 08:00 Mechanical Ventilator 04/30/19 07:16 76 16 30 04/30/19 07:00 89 18 157/77 (103) 100 04/30/19 06:00 83 18 149/77 (101) 100 04/30/19 05:22 84 17 30 04/30/19 05:00 82 21 140/77 (98) 100 04/30/19 04:00 98.0 84 21 147/77 (100) 100 04/30/19 04:00 30 04/30/19 04:00 84 04/30/19 04:00 Mechanical Ventilator 04/30/19 03:30 70 18 30 04/30/19 03:00 88 21 155/80 (105) 100 04/30/19 02:00 85 16 154/70 (98) 100 04/30/19 01:13 68 16 30 04/30/19 01:00 82 16 154/70 (98) 100 04/30/19 00:00 30 04/30/19 00:00 75 04/30/19 00:00 Mechanical Ventilator 04/30/19 00:00 98.2 66 16 157/75 (102) 100 04/29/19 23:00 66 16 160/74 (102) 100 04/29/19 22:34 80 16 30 04/29/19 22:00 71 18 156/73 (100) 99 04/29/19 21:30 88 16 30 04/29/19 21:00 81 18 151/80 (103) 99 04/29/19 20:00 Mechanical Ventilator 04/29/19 20:00 98.5 78 16 152/70 (97) 99 04/29/19 19:07 82 17 30 04/29/19 19:00 78 19 167/87 (113) 100 04/29/19 18:00 85 21 156/85 (108) 100 04/29/19 17:00 81 18 157/76 (103) 95 04/29/19 16:44 64 16 30 04/29/19 16:00 79 04/29/19 16:00 Mechanical Ventilator 04/29/19 16:00 30 04/29/19 16:00 98.9 78 16 160/86 (110) 98 04/29/19 15:00 70 16 162/80 (107) 96 04/29/19 14:36 100 16 30 04/29/19 14:00 80 04/29/19 14:00 63 16 168/73 (104) 96 04/29/19 13:00 85 16 163/76 (105) 98 04/29/19 12:46 63 16 30 04/29/19 12:00 30 04/29/19 12:00 99.0 73 16 155/77 (103) 96 04/29/19 12:00 Mechanical Ventilator Intake and Output 04/29/19 04/30/19 18:59 06:59 Intake Total 820 ml 1230 ml Output Total 370 ml 650 ml Balance 450 ml 580 ml Free Water 100 ml 450 ml Tube Feeding 720 ml 780 ml Output Urine Total 370 ml 600 ml Stool Total 50 ml # Bowel Movements 1 Laboratory Tests 04/30/19 04:50: White Blood Count 11.8H, Red Blood Count 3.06L, Hemoglobin 8.7L, Hematocrit 27.1L, Mean Corpuscular Volume 89, Mean Corpuscular Hemoglobin 28.3, Mean Corpuscular Hemoglobin Concent 31.9L, Red Cell Distribution Width 15.2H, Platelet Count 170, Mean Platelet Volume 6.8, Neutrophils (%) (Auto) 75.0, Lymphocytes (%) (Auto) 17.6L, Monocytes (%) (Auto) 4.5, Eosinophils (%) (Auto) 2.0, Basophils (%) (Auto) 0.9, Prothrombin Time 11.4, Prothromb Time International Ratio 1.1, Activated Partial Thromboplast Time 33, Sodium Level 143, Potassium Level 4.4, Chloride Level 107, Carbon Dioxide Level 29, Anion Gap 7, Blood Urea Nitrogen 59H, Creatinine 1.6H, Estimat Glomerular Filtration Rate , Glucose Level 262#H, Calcium Level 8.5, Phosphorus Level 4.3, Magnesium Level 1.9, Total Bilirubin 0.3, Aspartate Amino Transf (AST/SGOT) 35, Alanine Aminotransferase (ALT/SGPT) 16, Alkaline Phosphatase 118H, Total Protein 6.5, Albumin 1.3L, Globulin 5.2, Albumin/Globulin Ratio 0.2L 04/30/19 07:57: Arterial Blood pH 7.454H, Arterial Blood Partial Pressure CO2 40.7, Arterial Blood Partial Pressure O2 74.9L, Arterial Blood HCO3 27.9H, Arterial Blood Oxygen Saturation 94.7L, Arterial Blood Base Excess 3.7H, Marlo Test Positive Height (Feet): 5 Height (Inches): 7.00 Weight (Pounds): 185 EENT: other - vented Cardiovascular: tachycardia Respiratory/Chest: decreased breath sounds Abdomen: distended Objective no change Wally Spivey MD Apr 30, 2019 11:44
--- NOTE | 2019-04-30 11:54 | Cardiac Electrophysiology PN ---
Assessment/Plan Assessment/Plan 1. Atrial flutter, self terminated. Off AVN jose for low BP 2. Hypotension. On Midodrine 10 tid 3. Coronary artery disease. On Plavix 75 mg daily 4. Respiratory failure, intubated EF 60%. Tracheostomy pending Friday. 5. Sepsis. White count 25,000. On IV abx 6. Anemia.S/P PRBC. 7. Renal failure BUN/Cr improved to 38/1.[address] Spivey 8. Dysphagia. S/P PEG 04/22/19 9. History of CVA with hemiplegia. 10. Nonverbal status. 11. Full code DW RN Subjective Subjective Intubated in ICU.Off pressors. Tracheostomy pending on Friday. No arrhythmias Objective Last 24 Hour Vital Signs Date Time Temp Pulse Resp B/P (MAP) Pulse Ox O2 Delivery O2 Flow Rate FiO2 04/30/19 08:40 101 16 30 04/30/19 08:00 30 04/30/19 08:00 Mechanical Ventilator 04/30/19 07:16 76 16 30 04/30/19 07:00 89 18 157/77 (103) 100 04/30/19 06:00 83 18 149/77 (101) 100 04/30/19 05:22 84 17 30 04/30/19 05:00 82 21 140/77 (98) 100 04/30/19 04:00 98.0 84 21 147/77 (100) 100 04/30/19 04:00 30 04/30/19 04:00 84 04/30/19 04:00 Mechanical Ventilator 04/30/19 03:30 70 18 30 04/30/19 03:00 88 21 155/80 (105) 100 04/30/19 02:00 85 16 154/70 (98) 100 04/30/19 01:13 68 16 30 04/30/19 01:00 82 16 154/70 (98) 100 04/30/19 00:00 30 04/30/19 00:00 75 04/30/19 00:00 Mechanical Ventilator 04/30/19 00:00 98.2 66 16 157/75 (102) 100 04/29/19 23:00 66 16 160/74 (102) 100 04/29/19 22:34 80 16 30 04/29/19 22:00 71 18 156/73 (100) 99 04/29/19 21:30 88 16 30 04/29/19 21:00 81 18 151/80 (103) 99 04/29/19 20:00 Mechanical Ventilator 04/29/19 20:00 98.5 78 16 152/70 (97) 99 04/29/19 19:07 82 17 30 04/29/19 19:00 78 19 167/87 (113) 100 04/29/19 18:00 85 21 156/85 (108) 100 04/29/19 17:00 81 18 157/76 (103) 95 04/29/19 16:44 64 16 30 04/29/19 16:00 79 04/29/19 16:00 Mechanical Ventilator 04/29/19 16:00 30 04/29/19 16:00 98.9 78 16 160/86 (110) 98 04/29/19 15:00 70 16 162/80 (107) 96 04/29/19 14:36 100 16 30 04/29/19 14:00 80 04/29/19 14:00 63 16 168/73 (104) 96 04/29/19 13:00 85 16 163/76 (105) 98 04/29/19 12:46 63 16 30 04/29/19 12:00 30 04/29/19 12:00 99.0 73 16 155/77 (103) 96 04/29/19 12:00 Mechanical Ventilator Intake and Output 04/29/19 04/30/19 18:59 06:59 Intake Total 820 ml 1230 ml Output Total 370 ml 650 ml Balance 450 ml 580 ml Free Water 100 ml 450 ml Tube Feeding 720 ml 780 ml Output Urine Total 370 ml 600 ml Stool Total 50 ml # Bowel Movements 1 Laboratory Tests Test 04/30/19 04:50 04/30/19 07:57 White Blood Count 11.8 K/UL (4.8-10.8) H Red Blood Count 3.06 M/UL (4.20-5.40) L Hemoglobin 8.7 G/DL (12.0-16.0) L Hematocrit 27.1 % (37.0-47.0) L Mean Corpuscular Volume 89 FL (80-99) Mean Corpuscular Hemoglobin 28.3 PG (27.0-31.0) Mean Corpuscular Hemoglobin Concent 31.9 G/DL (32.0-36.0) L Red Cell Distribution Width 15.2 % (11.6-14.8) H Platelet Count 170 K/UL (150-450) Mean Platelet Volume 6.8 FL (6.5-10.1) Neutrophils (%) (Auto) 75.0 % (45.0-75.0) Lymphocytes (%) (Auto) 17.6 % (20.0-45.0) L Monocytes (%) (Auto) 4.5 % (1.0-10.0) Eosinophils (%) (Auto) 2.0 % (0.0-3.0) Basophils (%) (Auto) 0.9 % (0.0-2.0) Prothrombin Time 11.4 SEC (9.30-11.50) Prothromb Time International Ratio 1.1 (0.9-1.1) Activated Partial Thromboplast Time 33 SEC (23-33) Sodium Level 143 MMOL/L (136-145) Potassium Level 4.4 MMOL/L (3.5-5.1) Chloride Level 107 MMOL/L (98-107) Carbon Dioxide Level 29 MMOL/L (21-32) Anion Gap 7 mmol/L (5-15) Blood Urea Nitrogen 59 mg/dL (7-18) H Creatinine 1.6 MG/DL (0.55-1.30) H Estimat Glomerular Filtration Rate mL/min (>60) Glucose Level 262 MG/DL (74-106) #H Calcium Level 8.5 MG/DL (8.5-10.1) Phosphorus Level 4.3 MG/DL (2.5-4.9) Magnesium Level 1.9 MG/DL (1.8-2.4) Total Bilirubin 0.3 MG/DL (0.2-1.0) Aspartate Amino Transf (AST/SGOT) 35 U/L (15-37) Alanine Aminotransferase (ALT/SGPT) 16 U/L (12-78) Alkaline Phosphatase 118 U/L (46-116) H Total Protein 6.5 G/DL (6.4-8.2) Albumin 1.3 G/DL (3.4-5.0) L Globulin 5.2 g/dL Albumin/Globulin Ratio 0.2 (1.0-2.7) L Arterial Blood pH 7.454 (7.350-7.450) Arterial Blood Partial Pressure CO2 40.7 mmHg (35.0-45.0) Arterial Blood Partial Pressure O2 74.9 mmHg (75.0-100.0) L Arterial Blood HCO3 27.9 mmol/L (22.0-26.0) H Arterial Blood Oxygen Saturation 94.7 % (95-100) L Arterial Blood Base Excess 3.7 (-2-2) H Marlo Test Positive Objective HEAD AND NECK: No JVD. Orally intubated LUNGS: Coarse rhonchi bilaterally. CARDIOVASCULAR: Regular S1 and S2 with no gallop. ABDOMEN: Soft.PEG in place EXTREMITIES: No pitting edema. Claude Pena MD Apr 30, 2019 11:54
--- NOTE | 2019-04-30 12:05 | GI Progress Note ---
Assessment/Plan Problems: (1) At high risk for aspiration ICD Codes: Z91.89 - Other specified personal risk factors, not elsewhere classified SNOMED: 003823142 (2) Malnutrition ICD Codes: E46 - Unspecified protein-calorie malnutrition SNOMED: 85117955 (3) Diabetes mellitus ICD Codes: E11.9 - Type 2 diabetes mellitus without complications SNOMED: 32553428 Status: unchanged Status Narrative Discussed with Dr. Gentile. Assessment/Plan intubated GTF fu labs fu pulm recs prn blood transfusion ppi The patient was seen and examined at bedside and all new and available data was reviewed in the patients chart. I agree with the above findings, impression and plan. (Patient seen earlier today. Signature stamp does not reflect patient encounter time.). - Darron Gentile MD Subjective Subjective limited Objective Last 24 Hour Vital Signs Date Time Temp Pulse Resp B/P (MAP) Pulse Ox O2 Delivery O2 Flow Rate FiO2 04/30/19 11:07 77 16 30 04/30/19 08:40 101 16 30 04/30/19 08:00 30 04/30/19 08:00 Mechanical Ventilator 04/30/19 07:16 76 16 30 04/30/19 07:00 89 18 157/77 (103) 100 04/30/19 06:00 83 18 149/77 (101) 100 04/30/19 05:22 84 17 30 04/30/19 05:00 82 21 140/77 (98) 100 04/30/19 04:00 98.0 84 21 147/77 (100) 100 04/30/19 04:00 30 04/30/19 04:00 84 04/30/19 04:00 Mechanical Ventilator 04/30/19 03:30 70 18 30 04/30/19 03:00 88 21 155/80 (105) 100 04/30/19 02:00 85 16 154/70 (98) 100 04/30/19 01:13 68 16 30 04/30/19 01:00 82 16 154/70 (98) 100 04/30/19 00:00 30 04/30/19 00:00 75 04/30/19 00:00 Mechanical Ventilator 04/30/19 00:00 98.2 66 16 157/75 (102) 100 04/29/19 23:00 66 16 160/74 (102) 100 04/29/19 22:34 80 16 30 04/29/19 22:00 71 18 156/73 (100) 99 04/29/19 21:30 88 16 30 04/29/19 21:00 81 18 151/80 (103) 99 04/29/19 20:00 Mechanical Ventilator 04/29/19 20:00 98.5 78 16 152/70 (97) 99 04/29/19 19:07 82 17 30 04/29/19 19:00 78 19 167/87 (113) 100 04/29/19 18:00 85 21 156/85 (108) 100 04/29/19 17:00 81 18 157/76 (103) 95 04/29/19 16:44 64 16 30 04/29/19 16:00 79 04/29/19 16:00 Mechanical Ventilator 04/29/19 16:00 30 04/29/19 16:00 98.9 78 16 160/86 (110) 98 04/29/19 15:00 70 16 162/80 (107) 96 04/29/19 14:36 100 16 30 04/29/19 14:00 80 04/29/19 14:00 63 16 168/73 (104) 96 04/29/19 13:00 85 16 163/76 (105) 98 04/29/19 12:46 63 16 30 Intake and Output 04/29/19 04/30/19 18:59 06:59 Intake Total 820 ml 1230 ml Output Total 370 ml 650 ml Balance 450 ml 580 ml Free Water 100 ml 450 ml Tube Feeding 720 ml 780 ml Output Urine Total 370 ml 600 ml Stool Total 50 ml # Bowel Movements 1 Laboratory Tests Test 04/30/19 04:50 04/30/19 07:57 White Blood Count 11.8 K/UL (4.8-10.8) H Red Blood Count 3.06 M/UL (4.20-5.40) L Hemoglobin 8.7 G/DL (12.0-16.0) L Hematocrit 27.1 % (37.0-47.0) L Mean Corpuscular Volume 89 FL (80-99) Mean Corpuscular Hemoglobin 28.3 PG (27.0-31.0) Mean Corpuscular Hemoglobin Concent 31.9 G/DL (32.0-36.0) L Red Cell Distribution Width 15.2 % (11.6-14.8) H Platelet Count 170 K/UL (150-450) Mean Platelet Volume 6.8 FL (6.5-10.1) Neutrophils (%) (Auto) 75.0 % (45.0-75.0) Lymphocytes (%) (Auto) 17.6 % (20.0-45.0) L Monocytes (%) (Auto) 4.5 % (1.0-10.0) Eosinophils (%) (Auto) 2.0 % (0.0-3.0) Basophils (%) (Auto) 0.9 % (0.0-2.0) Prothrombin Time 11.4 SEC (9.30-11.50) Prothromb Time International Ratio 1.1 (0.9-1.1) Activated Partial Thromboplast Time 33 SEC (23-33) Sodium Level 143 MMOL/L (136-145) Potassium Level 4.4 MMOL/L (3.5-5.1) Chloride Level 107 MMOL/L (98-107) Carbon Dioxide Level 29 MMOL/L (21-32) Anion Gap 7 mmol/L (5-15) Blood Urea Nitrogen 59 mg/dL (7-18) H Creatinine 1.6 MG/DL (0.55-1.30) H Estimat Glomerular Filtration Rate mL/min (>60) Glucose Level 262 MG/DL (74-106) #H Calcium Level 8.5 MG/DL (8.5-10.1) Phosphorus Level 4.3 MG/DL (2.5-4.9) Magnesium Level 1.9 MG/DL (1.8-2.4) Total Bilirubin 0.3 MG/DL (0.2-1.0) Aspartate Amino Transf (AST/SGOT) 35 U/L (15-37) Alanine Aminotransferase (ALT/SGPT) 16 U/L (12-78) Alkaline Phosphatase 118 U/L (46-116) H Total Protein 6.5 G/DL (6.4-8.2) Albumin 1.3 G/DL (3.4-5.0) L Globulin 5.2 g/dL Albumin/Globulin Ratio 0.2 (1.0-2.7) L Arterial Blood pH 7.454 (7.350-7.450) Arterial Blood Partial Pressure CO2 40.7 mmHg (35.0-45.0) Arterial Blood Partial Pressure O2 74.9 mmHg (75.0-100.0) L Arterial Blood HCO3 27.9 mmol/L (22.0-26.0) H Arterial Blood Oxygen Saturation 94.7 % (95-100) L Arterial Blood Base Excess 3.7 (-2-2) H Marlo Test Positive Height (Feet): 5 Height (Inches): 7.00 Weight (Pounds): 185 General Appearance: no apparent distress Cardiovascular: normal rate Respiratory/Chest: normal breath sounds, no respiratory distress Abdominal Exam: normal bowel sounds, non tender, soft, GT site Extremities: non-tender Aron Torres NP Apr 30, 2019 12:05
--- NOTE | 2019-04-30 12:28 | Infectious Diseases Prog Note ---
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 PNA, sp Rx Pulmonary edema -04/26 CXR: Suspect slightly increased interstitial and airspace edema, over 2 days.Possibly improving small right pleural effusion -04/19 CXR: There is less pulmonary edema compared to yesterday but with moderate residual edema. -04/16 CXR: . Right perihilar and bilateral lower lobe pulmonary consolidation concerning for pneumonia.Small bilateral pleural effusions. CXR - B/L Infiltrates Low grade fevers; improving WBCs up to 25; improving -04/24 Cdiff eng 04/16 Sp Cx - C. alb; 04/19 spC. albicans (colonizer) -BCx NTD -legionella ag urine neg Widened mediastinum - right sided aortic arch CXR - Apparent upper mediastinal widening. Possibly due to ectatic vasculature and body habitus, but upper mediastinal mass also possible. Correlate with any prior adiographs and may be available, consider CT for further evaluation if clinically indicated CT 04/13/19 - Right-sided aortic arch, presumably accounting for the apparent upper mediastinal widening demonstrated on recent plain radiograph. No evidence of upper mediastinal mass. Extensive bilateral lower lobe consolidation , likely pneumonia, less extensive left upper lobe consolidation. 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 We will continue to follow the patient during this hospitalization. Subjective Allergies: Coded Allergies: No Known Allergies (Unverified , 04/12/19) Subjective afebrile >48hrs mild leukocytosis now off abx Objective Vital Signs Last 24 Hour Vital Signs Date Time Temp Pulse Resp B/P (MAP) Pulse Ox O2 Delivery O2 Flow Rate FiO2 04/30/19 11:07 77 16 30 04/30/19 08:40 101 16 30 04/30/19 08:00 30 04/30/19 08:00 Mechanical Ventilator 04/30/19 07:16 76 16 30 04/30/19 07:00 89 18 157/77 (103) 100 04/30/19 06:00 83 18 149/77 (101) 100 04/30/19 05:22 84 17 30 04/30/19 05:00 82 21 140/77 (98) 100 04/30/19 04:00 98.0 84 21 147/77 (100) 100 04/30/19 04:00 30 04/30/19 04:00 84 04/30/19 04:00 Mechanical Ventilator 04/30/19 03:30 70 18 30 04/30/19 03:00 88 21 155/80 (105) 100 04/30/19 02:00 85 16 154/70 (98) 100 04/30/19 01:13 68 16 30 04/30/19 01:00 82 16 154/70 (98) 100 04/30/19 00:00 30 04/30/19 00:00 75 04/30/19 00:00 Mechanical Ventilator 04/30/19 00:00 98.2 66 16 157/75 (102) 100 04/29/19 23:00 66 16 160/74 (102) 100 04/29/19 22:34 80 16 30 04/29/19 22:00 71 18 156/73 (100) 99 04/29/19 21:30 88 16 30 04/29/19 21:00 81 18 151/80 (103) 99 04/29/19 20:00 Mechanical Ventilator 04/29/19 20:00 98.5 78 16 152/70 (97) 99 04/29/19 19:07 82 17 30 04/29/19 19:00 78 19 167/87 (113) 100 04/29/19 18:00 85 21 156/85 (108) 100 04/29/19 17:00 81 18 157/76 (103) 95 04/29/19 16:44 64 16 30 04/29/19 16:00 79 04/29/19 16:00 Mechanical Ventilator 04/29/19 16:00 30 04/29/19 16:00 98.9 78 16 160/86 (110) 98 04/29/19 15:00 70 16 162/80 (107) 96 04/29/19 14:36 100 16 30 04/29/19 14:00 80 04/29/19 14:00 63 16 168/73 (104) 96 04/29/19 13:00 85 16 163/76 (105) 98 04/29/19 12:46 63 16 30 Height (Feet): 5 Height (Inches): 7.00 Weight (Pounds): 185 Objective Gen: Awake and talking HEENT: NCAT, MMM, EOMI LUNGS: CTAB, No W CARDS: RRR, S1, S2, No M/R/G, ABD: Soft, NT, ND Laboratory Tests Test 04/30/19 04:50 04/30/19 07:57 White Blood Count 11.8 K/UL (4.8-10.8) H Red Blood Count 3.06 M/UL (4.20-5.40) L Hemoglobin 8.7 G/DL (12.0-16.0) L Hematocrit 27.1 % (37.0-47.0) L Mean Corpuscular Volume 89 FL (80-99) Mean Corpuscular Hemoglobin 28.3 PG (27.0-31.0) Mean Corpuscular Hemoglobin Concent 31.9 G/DL (32.0-36.0) L Red Cell Distribution Width 15.2 % (11.6-14.8) H Platelet Count 170 K/UL (150-450) Mean Platelet Volume 6.8 FL (6.5-10.1) Neutrophils (%) (Auto) 75.0 % (45.0-75.0) Lymphocytes (%) (Auto) 17.6 % (20.0-45.0) L Monocytes (%) (Auto) 4.5 % (1.0-10.0) Eosinophils (%) (Auto) 2.0 % (0.0-3.0) Basophils (%) (Auto) 0.9 % (0.0-2.0) Prothrombin Time 11.4 SEC (9.30-11.50) Prothromb Time International Ratio 1.1 (0.9-1.1) Activated Partial Thromboplast Time 33 SEC (23-33) Sodium Level 143 MMOL/L (136-145) Potassium Level 4.4 MMOL/L (3.5-5.1) Chloride Level 107 MMOL/L (98-107) Carbon Dioxide Level 29 MMOL/L (21-32) Anion Gap 7 mmol/L (5-15) Blood Urea Nitrogen 59 mg/dL (7-18) H Creatinine 1.6 MG/DL (0.55-1.30) H Estimat Glomerular Filtration Rate mL/min (>60) Glucose Level 262 MG/DL (74-106) #H Calcium Level 8.5 MG/DL (8.5-10.1) Phosphorus Level 4.3 MG/DL (2.5-4.9) Magnesium Level 1.9 MG/DL (1.8-2.4) Total Bilirubin 0.3 MG/DL (0.2-1.0) Aspartate Amino Transf (AST/SGOT) 35 U/L (15-37) Alanine Aminotransferase (ALT/SGPT) 16 U/L (12-78) Alkaline Phosphatase 118 U/L (46-116) H Total Protein 6.5 G/DL (6.4-8.2) Albumin 1.3 G/DL (3.4-5.0) L Globulin 5.2 g/dL Albumin/Globulin Ratio 0.2 (1.0-2.7) L Arterial Blood pH 7.454 (7.350-7.450) Arterial Blood Partial Pressure CO2 40.7 mmHg (35.0-45.0) Arterial Blood Partial Pressure O2 74.9 mmHg (75.0-100.0) L Arterial Blood HCO3 27.9 mmol/L (22.0-26.0) H Arterial Blood Oxygen Saturation 94.7 % (95-100) L Arterial Blood Base Excess 3.7 (-2-2) H Marlo Test Positive Current Medications Medications (Trade) Dose Ordered Sig/Kenisha Route PRN Reason Start Time Stop Time Status Last Admin Dose Admin Acetaminophen (Tylenol) 650 mg Q4H PRN ORAL FEVER 04/17/19 12:36 05/17/19 12:35 04/25/19 23:56 Acetaminophen (Tylenol) 650 mg Q4H PRN RECTAL Fever 04/17/19 12:36 05/17/19 12:35 04/18/19 08:53 Albuterol/ Ipratropium (Albuterol/ Ipratropium) 3 ml Q4H PRN HHN Shortness of Breath 04/29/19 07:30 05/04/19 07:29 Chlorhexidine Gluconate (Izzy-Hex 2%) 1 applic DAILY@2000 TOPIC 04/20/19 20:00 05/20/19 19:59 04/29/19 20:08 Dextrose (Dextrose 50%) 25 ml Q30M PRN IV Hypoglycemia 04/17/19 12:45 05/12/19 19:44 Dextrose (Dextrose 50%) 50 ml Q30M PRN IV Hypoglycemia 04/17/19 12:45 05/12/19 19:44 Epoetin Bandar (Epoetin Bandar-EPBX(NON ESRD)) 10,000 unit FRI-FRI-FRI SUBQ 04/28/19 21:00 05/28/19 20:59 04/28/19 20:30 Folic Acid (Folate) 1 mg DAILY ORAL 04/26/19 09:00 05/19/19 08:59 04/30/19 08:25 Hydralazine HCl (Apresoline) 10 mg Q2H PRN IV For High Blood Pressure 04/17/19 12:36 05/17/19 12:35 Insulin Aspart (NovoLOG) Q6HR SUBQ 04/20/19 18:00 05/20/19 17:59 04/30/19 06:15 Lansoprazole (Prevacid) 30 mg DAILY GT 04/22/19 09:00 05/22/19 08:59 04/30/19 08:25 Midodrine (Pro-Amatine) 5 mg THREE TIMES A DAY NG 04/27/19 13:00 05/21/19 12:59 04/29/19 18:15 Ondansetron HCl (Zofran) 4 mg Q6H PRN IVP Nausea & Vomiting 04/17/19 12:37 05/17/19 12:36 Polyethylene Glycol (Miralax) 17 gm DAILYPRN PRN ORAL Constipation 04/17/19 12:37 05/17/19 12:36 04/23/19 10:31 Cora Baer M.D. Apr 30, 2019 12:28
--- NOTE | 2019-04-30 12:46 | Neurology Progress Note ---
Interim History Interim History ROS Limited/Unobtainable: Yes Complaints: AMS Events: Weaning attempts unsuccessful, PEG placed/awaiting Trach Interim History Exam unchanged, remains in icu, intermittently agitated Objective Physical Exam Last Vital Signs Date Time Temp Pulse Resp B/P (MAP) Pulse Ox O2 Delivery O2 Flow Rate FiO2 04/30/19 11:07 77 16 30 04/30/19 08:00 Mechanical Ventilator 04/30/19 07:00 157/77 (103) 100 04/30/19 04:00 98.0 Laboratory Tests Test 04/30/19 04:50 04/30/19 07:57 White Blood Count 11.8 K/UL (4.8-10.8) H Red Blood Count 3.06 M/UL (4.20-5.40) L Hemoglobin 8.7 G/DL (12.0-16.0) L Hematocrit 27.1 % (37.0-47.0) L Mean Corpuscular Volume 89 FL (80-99) Mean Corpuscular Hemoglobin 28.3 PG (27.0-31.0) Mean Corpuscular Hemoglobin Concent 31.9 G/DL (32.0-36.0) L Red Cell Distribution Width 15.2 % (11.6-14.8) H Platelet Count 170 K/UL (150-450) Mean Platelet Volume 6.8 FL (6.5-10.1) Neutrophils (%) (Auto) 75.0 % (45.0-75.0) Lymphocytes (%) (Auto) 17.6 % (20.0-45.0) L Monocytes (%) (Auto) 4.5 % (1.0-10.0) Eosinophils (%) (Auto) 2.0 % (0.0-3.0) Basophils (%) (Auto) 0.9 % (0.0-2.0) Prothrombin Time 11.4 SEC (9.30-11.50) Prothromb Time International Ratio 1.1 (0.9-1.1) Activated Partial Thromboplast Time 33 SEC (23-33) Sodium Level 143 MMOL/L (136-145) Potassium Level 4.4 MMOL/L (3.5-5.1) Chloride Level 107 MMOL/L (98-107) Carbon Dioxide Level 29 MMOL/L (21-32) Anion Gap 7 mmol/L (5-15) Blood Urea Nitrogen 59 mg/dL (7-18) H Creatinine 1.6 MG/DL (0.55-1.30) H Estimat Glomerular Filtration Rate mL/min (>60) Glucose Level 262 MG/DL (74-106) #H Calcium Level 8.5 MG/DL (8.5-10.1) Phosphorus Level 4.3 MG/DL (2.5-4.9) Magnesium Level 1.9 MG/DL (1.8-2.4) Total Bilirubin 0.3 MG/DL (0.2-1.0) Aspartate Amino Transf (AST/SGOT) 35 U/L (15-37) Alanine Aminotransferase (ALT/SGPT) 16 U/L (12-78) Alkaline Phosphatase 118 U/L (46-116) H Total Protein 6.5 G/DL (6.4-8.2) Albumin 1.3 G/DL (3.4-5.0) L Globulin 5.2 g/dL Albumin/Globulin Ratio 0.2 (1.0-2.7) L Arterial Blood pH 7.454 (7.350-7.450) Arterial Blood Partial Pressure CO2 40.7 mmHg (35.0-45.0) Arterial Blood Partial Pressure O2 74.9 mmHg (75.0-100.0) L Arterial Blood HCO3 27.9 mmol/L (22.0-26.0) H Arterial Blood Oxygen Saturation 94.7 % (95-100) L Arterial Blood Base Excess 3.7 (-2-2) H Marlo Test Positive General: well developed, well nourished, no acute distress Head: normocophalic Neck: no rigidity EENT: benign Neurologic Exam Mental Status: awake, other Speech: other Language: other Cranial Nerve II: fundus normal, visual cruz, no papilledema, other Cranial Nerves III, IV, : PERRLA, EOMI, other Cranial Nerve V: other Cranial Nerve VII: other Cranial Nerve VIII: other Cranial Nerve IX: other Cranial Nerve XI: other Cranial Nerve XII: other Motor System: other Sensory: other Coordination: other Gait: other Objective Not following commands Moving all 4 ext spontaneously CN intact Impression/Recommendations Problems: (1) Respiratory distress (2) Malnutrition (3) UTI (urinary tract infection) (4) Diabetic nephropathy (5) Renal failure (ARF), acute on chronic (6) Anemia in chronic kidney disease (CKD) (7) Pulmonary hypertension (8) Acute respiratory failure (9) Respiratory failure (10) Hypernatremia (11) Sepsis (12) Pneumonia (13) History of CVA (cerebrovascular accident) (14) CAD (coronary artery disease) (15) Right hemiplegia (16) Diabetes mellitus (17) Hypertensive heart disease (18) 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 (19) Nosocomial pneumonia (20) At high risk for aspiration (21) Acute metabolic encephalopathy Status: unchanged Recommendations Cont current management Wean to extubate map > 65 neuro exam non focal - monitor dw icu nurse Geo Espitia MD Apr 30, 2019 12:46
--- NOTE | 2019-04-30 13:00 | NUR ---
NURSE NOTES: x1 loose brown BM. turned and repositioned. Flat affect, no signs of distress noted.
--- NOTE | 2019-04-30 13:56 | NUR ---
DISCHARGE PLANNING: NOTE DENIED AT [facility]
--- NOTE | 2019-04-30 13:58 | NUR ---
CASE MANAGEMENT: REVIEW 04/30/2019 SI: ACUTE RESPIRATORY FAILURE ENCEPHALOPATHY. PNA T 98 HR 84 RR 21 B/P 147/77 SATS 100% ON MECH VENT FIO2 30 WBC 11.8 BUN 59 CR 1.6 GLU 262 ALP 118 ABGS pH 7.454 PO2 74.9 HCO3 27.9 O2 SAT 94.7 BE 3.7 IS: IV CEFEPIME Q24 EPOETIN SQ MWF : ICU STATUS INTUBATED DCP: FROM [facility] PLAN OF CARE: CONSENT OBTAINED FROM SON FOR TRACH AND BRONCH >> PT NOT STABLE PER SURGEON
--- NOTE | 2019-04-30 14:00 | NUR ---
INSURANCE CLINICALS AND REVIEWS FAXED TO [facility] T: [phone] F:[phone]
--- NOTE | 2019-04-30 14:08 | Diagnostic Imaging Report ---
Indication: Dyspnea Comparison: 04/26/2019 A single view chest radiograph was obtained. Findings: Pulmonary vascular congestion is moderate. Endotracheal tube is 3 cm above the mita. Cardiomegaly is present. IMPRESSION: No significant change. CHF
--- NOTE | 2019-04-30 14:21 | Surgery Progress Note ---
Surgery Progress Note Objective Last 24 Hour Vital Signs Date Time Temp Pulse Resp B/P (MAP) Pulse Ox O2 Delivery O2 Flow Rate FiO2 04/30/19 13:09 78 16 30 04/30/19 13:00 85 18 147/76 (99) 100 04/30/19 12:00 86 18 145/79 (101) 100 04/30/19 12:00 30 04/30/19 12:00 Mechanical Ventilator 04/30/19 11:07 77 16 30 04/30/19 11:00 77 18 152/72 (98) 100 04/30/19 10:00 79 18 147/71 (96) 100 04/30/19 09:00 87 18 146/77 (100) 100 04/30/19 08:40 101 16 30 04/30/19 08:00 30 04/30/19 08:00 89 18 153/78 (103) 100 04/30/19 08:00 Mechanical Ventilator 04/30/19 07:16 76 16 30 04/30/19 07:00 89 18 157/77 (103) 100 04/30/19 06:00 83 18 149/77 (101) 100 04/30/19 05:22 84 17 30 04/30/19 05:00 82 21 140/77 (98) 100 04/30/19 04:00 98.0 84 21 147/77 (100) 100 04/30/19 04:00 30 04/30/19 04:00 84 04/30/19 04:00 Mechanical Ventilator 04/30/19 03:30 70 18 30 04/30/19 03:00 88 21 155/80 (105) 100 04/30/19 02:00 85 16 154/70 (98) 100 04/30/19 01:13 68 16 30 04/30/19 01:00 82 16 154/70 (98) 100 04/30/19 00:00 30 04/30/19 00:00 75 04/30/19 00:00 Mechanical Ventilator 04/30/19 00:00 98.2 66 16 157/75 (102) 100 04/29/19 23:00 66 16 160/74 (102) 100 04/29/19 22:34 80 16 30 04/29/19 22:00 71 18 156/73 (100) 99 04/29/19 21:30 88 16 30 04/29/19 21:00 81 18 151/80 (103) 99 04/29/19 20:00 Mechanical Ventilator 04/29/19 20:00 98.5 78 16 152/70 (97) 99 04/29/19 19:07 82 17 30 04/29/19 19:00 78 19 167/87 (113) 100 04/29/19 18:00 85 21 156/85 (108) 100 04/29/19 17:00 81 18 157/76 (103) 95 04/29/19 16:44 64 16 30 04/29/19 16:00 79 04/29/19 16:00 Mechanical Ventilator 04/29/19 16:00 30 04/29/19 16:00 98.9 78 16 160/86 (110) 98 04/29/19 15:00 70 16 162/80 (107) 96 04/29/19 14:36 100 16 30 I&O Intake and Output 04/29/19 04/30/19 18:59 06:59 Intake Total 820 ml 1230 ml Output Total 370 ml 650 ml Balance 450 ml 580 ml Free Water 100 ml 450 ml Tube Feeding 720 ml 780 ml Output Urine Total 370 ml 600 ml Stool Total 50 ml # Bowel Movements 1 Drains: none Cardiovascular: RSR Respiratory: decreased breath sounds Abdomen: soft, present bowel sounds, non-distended Extremities: no cyanosis Laboratory Tests Test 04/30/19 04:50 04/30/19 07:57 White Blood Count 11.8 K/UL (4.8-10.8) H Red Blood Count 3.06 M/UL (4.20-5.40) L Hemoglobin 8.7 G/DL (12.0-16.0) L Hematocrit 27.1 % (37.0-47.0) L Mean Corpuscular Volume 89 FL (80-99) Mean Corpuscular Hemoglobin 28.3 PG (27.0-31.0) Mean Corpuscular Hemoglobin Concent 31.9 G/DL (32.0-36.0) L Red Cell Distribution Width 15.2 % (11.6-14.8) H Platelet Count 170 K/UL (150-450) Mean Platelet Volume 6.8 FL (6.5-10.1) Neutrophils (%) (Auto) 75.0 % (45.0-75.0) Lymphocytes (%) (Auto) 17.6 % (20.0-45.0) L Monocytes (%) (Auto) 4.5 % (1.0-10.0) Eosinophils (%) (Auto) 2.0 % (0.0-3.0) Basophils (%) (Auto) 0.9 % (0.0-2.0) Prothrombin Time 11.4 SEC (9.30-11.50) Prothromb Time International Ratio 1.1 (0.9-1.1) Activated Partial Thromboplast Time 33 SEC (23-33) Sodium Level 143 MMOL/L (136-145) Potassium Level 4.4 MMOL/L (3.5-5.1) Chloride Level 107 MMOL/L (98-107) Carbon Dioxide Level 29 MMOL/L (21-32) Anion Gap 7 mmol/L (5-15) Blood Urea Nitrogen 59 mg/dL (7-18) H Creatinine 1.6 MG/DL (0.55-1.30) H Estimat Glomerular Filtration Rate mL/min (>60) Glucose Level 262 MG/DL (74-106) #H Calcium Level 8.5 MG/DL (8.5-10.1) Phosphorus Level 4.3 MG/DL (2.5-4.9) Magnesium Level 1.9 MG/DL (1.8-2.4) Total Bilirubin 0.3 MG/DL (0.2-1.0) Aspartate Amino Transf (AST/SGOT) 35 U/L (15-37) Alanine Aminotransferase (ALT/SGPT) 16 U/L (12-78) Alkaline Phosphatase 118 U/L (46-116) H Total Protein 6.5 G/DL (6.4-8.2) Albumin 1.3 G/DL (3.4-5.0) L Globulin 5.2 g/dL Albumin/Globulin Ratio 0.2 (1.0-2.7) L Arterial Blood pH 7.454 (7.350-7.450) Arterial Blood Partial Pressure CO2 40.7 mmHg (35.0-45.0) Arterial Blood Partial Pressure O2 74.9 mmHg (75.0-100.0) L Arterial Blood HCO3 27.9 mmol/L (22.0-26.0) H Arterial Blood Oxygen Saturation 94.7 % (95-100) L Arterial Blood Base Excess 3.7 (-2-2) H Marlo Test Positive Plan Problems: (1) Respiratory distress Assessment & Plan: has been on vents support for near two weeks cannot wean and does not tolerate weaning trials trach indicated and recommended will obtain consent and schedule (2) Malnutrition (3) UTI (urinary tract infection) (4) Diabetic nephropathy (5) Renal failure (ARF), acute on chronic (6) Anemia in chronic kidney disease (CKD) (7) Pulmonary hypertension (8) Acute respiratory failure (9) Respiratory failure (10) Hypernatremia (11) Sepsis Assessment & Plan: cont with current care trend labs will follow with recs (12) Pneumonia (13) History of CVA (cerebrovascular accident) (14) CAD (coronary artery disease) (15) Right hemiplegia (16) Diabetes mellitus (17) Hypertensive heart disease (18) 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 (19) Nosocomial pneumonia (20) At high risk for aspiration (21) Acute metabolic encephalopathy Devaughn Marin Apr 30, 2019 14:21
--- NOTE | 2019-04-30 14:56 | NUR ---
RD ASSESSMENT & RECOMMENDATIONS SEE CARE ACTIVITY FOR COMPLETE ASSESSMENT DAILY ESTIMATED NEEDS: Needs based on Sepsis, DM, cardiac, Critical care, wound/ 58kg abw 22-28 kcals/kg 2860-5644 total kcals 1.25-2 g protein/kg 72-116 g total protein 25-30 mL/kg 7941-5739 total fluid mLs NUTRITION DIAGNOSIS: * Swallowing difficulty R/T dysphagia, h/o CVA, respiratory status as evidenced by s/p VSS w/ rec for NPO, nonoral feedings, now orally intubated in ICU, s/p PEG placement. * Altered nutrition related lab values R/T diabetes, ARF, cardiac hx as evidenced by A1C of 8.1, POC glu (134-262), elev creat (2.4 ->1.6), elev BNP (17030->4917->38047), elev K now wnl. CURRENT TF: Glucerna 1.2 @ 60ml/hr x 24 hrs ENTERAL NUTRITION RECOMMENDATIONS: Glucerna 1.2 @ 55ml/hr x 24 hrs to provide 1320ml, 1584kcal, 79g prot, 1062ml free water * LOWER goal rate to 55ml/hr x 24 hrs- meets 100% est kcal/prot needs * HOB over 30 degrees/ water flush per MD --- W/ CONSISTENTLY ELEV K, REC TF CHANGE TO NEPRO FOR LESS K CONTENT : Nepro @ 37m/hr x 24 hrs -> 888ml, 1598kcal, 72g prot, 640ml free water (will provide 1887mg less K than current TF) ADDITIONAL RECOMMENDATIONS: * Calibrated bedscale wt for accurate CBW * Monitor lytes daily, replete as needed * Wound healing: add Jarvis 1pkt BID, vit C 250mg QD * Monitor K closely- rec TF change to NEPRO w/ consistently elev K -> see above TF rec
--- NOTE | 2019-04-30 15:41 | NUR ---
NURSE NOTES: Tolerating TF well, no residual noted. Dressings changed on bilateral cheeks under ETT strap.
--- NOTE | 2019-04-30 16:27 | NUR ---
NURSE NOTES:WOUND CARE FOLLOW-UP NOTES:Sacral pressure injury resolved-dry peelingh skin without erythema noted. Incontinence associated dermatitis noted to medial aspects of both thighs,abd folds and perineum .Affected areas are erythematous and denuded. Moisture associated dermatitis noted to R and L axillae. erythema with denuded skin skin noted to affected areas. Both heels are dry ,firm and blanchable. Tx.Plan: Wash and pat dry R and L axillae,abd folds,perineum and medial aspects of both upper thighs. Apply Remedy Antifungal oint Twice Daily. Apply Moisture Barrier Paste to Sacrum . Cover with Optifoam drsg. Change every 3 days and prn. Apply Caviilon Skin Barrier to both heels. Cover each heel with Optifoam drsg. Change every 7 days and prn. APM/MARIA INES mattress. Reposition at least every 2houers or as tolerated. Off-load heels with pillow.
--- NOTE | 2019-04-30 17:10 | NUR ---
RESPIRATORY NOTE: PT REMAINED STABLE ON CMV WITH CURRENT SETTINGS. SX PRN. AIRWAY IS SECURE AND PATENT. VENT CIRCUIT AND SX TUBING SECURE AND OUT OF THE WAY. NO S/S OF RESPIRATORY DISTRESS NOTED AT THIS TIME.
--- NOTE | 2019-04-30 17:30 | NUR ---
NURSE NOTES: Turned and repositioned. Kept dry and clean.
--- NOTE | 2019-04-30 19:08 | NUR ---
RESPIRATORY NOTE: Received pt on AC 16, 500VT, 30%, PEEP +5. Pt intubated w/ ETT 7.5 @ 23cm lipline, secured by ETT tape. Pt is awake/disoriented. B/S enmanuel. rhonchi, sxn small to moderate amounts of thick, marin-yellow secretions. Left hand on soft restraints to prevent pt from self-extubation. Right hand unable to move. ETT Tape is used for pt as she has wound on cheeks & is being treated & covered w/ optifoam that anchorfast won't be able to stick to it. Vent plugged into red outlet, ambubag at bedside. Pt in no apparent distress at this time. Will continue to monitor pt.
--- NOTE | 2019-04-30 19:12 | NUR ---
HAND-OFF: Report given to Felicia Funes RN using SBAR.
--- NOTE | 2019-04-30 19:20 | NUR ---
NURSE NOTES: BEDSIDE REPORT RECEIVED FROM HORTENCIA MEZA. PT OPENS EYES SPONTANEOUSLY, TRACKS W/ EYES, UNABLE TO FOLLOW COMMANDS. COMPOUNDER FLAVORINGS SHOWING 1 DG HB, ASYMPTOMATIC. ETT #7.5 @ 23"; AC 16, TV 500, FIO2 30, PEEP 5. NO S/S OF DISTRESS NOTED. GLU 1.2 @ 60 TOLERATING WELL. SKIN CLEAN, DRY, DRESSINGS INTACT. CAMILO NOTED AND DRAINING. L WRIST RESTRAINT NOTED, PALPABLE PULSES, SKINS INTACT. SUZIE PICC ASYMPTOMATIC. BED IS LOCKED IN LOWEST POSITION, SR X3, CALL FIGUEROA W/ IN REACH, SAFETY PRECAUTIONS CONTINUED. WILL CONTINUE TO MONITOR AND FOLLOW W/ PLAN OF CARE.
[2019-04-30] MEDS: Epoetin Alfa-EPBX (NON ESRD)10,000 unit/ml vial SUBQ SCH (20:32)
[2019-04-30] MEDS: Dyna-Hex 2% Top Sol 2oz TOPIC SCH (20:33)
--- NOTE | 2019-04-30 21:45 | NUR ---
NURSE NOTES: PT WAS OBSERVED RESTING IN BED COMFORTABLY. NO ACUTE EVENTS NOTED. NO S/S OF DISTRESS OBSERVED. ORAL CARE WAS DONE, PT WAS TURNED, SKIN REMAINS CLEAN/DRY, SUCTIONED, GT RESIDUAL REMAINS LOW. WILL CONTINUE TO MONITOR AND FOLLOW W/ PLAN OF CARE.
[2019-05-01] VITALS (23 sets, daily range): BP systolic 133–163; BP diastolic 69–96
--- NOTE | 2019-05-01 | NUR ---
NURSE NOTES: PT WAS OBSERVED RESTING IN BED COMFORTABLY, AGITATION WAS NOTED W/ AROUSAL. NO ACUTE EVENTS NOTED. NO S/S OF DISTRESS OBSERVED. ORAL CARE WAS DONE, PT WAS TURNED, SKIN REMAINS CLEAN/DRY, SUCTIONED, GT RESIDUAL REMAINS LOW. SAFETY PRECAUTIONS CONTINUED. WILL CONTINUE TO MONITOR AND FOLLOW W/ PLAN OF CARE.
--- NOTE | 2019-05-01 02:45 | NUR ---
NURSE NOTES: PT WAS OBSERVED TRACKING W/ EYES, RESISTIVE TO CARE, SLIGHT AGITATION. NO ACUTE EVENTS NOTED. NO S/S OF DISTRESS OBSERVED. ORAL CARE WAS DONE, PT WAS TURNED, SKIN REMAINS CLEAN/DRY, SUCTIONED, GT RESIDUAL REMAINS LOW. WILL CONTINUE TO MONITOR AND FOLLOW W/ PLAN OF CARE. SAFETY PRECAUTIONS CONTINUED.
--- NOTE | 2019-05-01 05:26 | Pulmonolgy Critical Care Note ---
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 (7) Hypertensive heart disease (8) Right hemiplegia (9) History of CVA (cerebrovascular accident) (10) CAD (coronary artery disease) Respiratory: monitor respiratory rate, adjust FIO2, CXR Cardiac: continue to monitor HR/BP Renal: F/U I&O, keep IV fluid, check electrolytes Gastrointestinal: continue feedings/current rate Endocrine: monitor blood sugar, continue sliding scale insulin Hematologic: transfuse if hgb<8.5 Neurologic: PRN Ativan, PRN Morphine, keep patient comfortable Affect: PRN ativan Prophylaxis: Protonix Disposition: keep in ICU Time Spent (Minutes): 40 Notes Reviewed: senior branch manager, renal Discussed with: nurses, consultants, case consultantbilliard parlor manager - Objective Last 24 Hour Vital Signs Date Time Temp Pulse Resp B/P (MAP) Pulse Ox O2 Delivery O2 Flow Rate FiO2 05/01/19 05:06 92 16 30 05/01/19 02:50 95 16 30 05/01/19 01:05 94 16 30 05/01/19 01:00 90 16 144/86 (105) 97 05/01/19 00:41 108 05/01/19 00:41 Mechanical Ventilator 05/01/19 00:41 30 05/01/19 00:00 99.2 94 16 144/78 (100) 96 04/30/19 23:00 108 22 159/81 (107) 96 04/30/19 22:50 97 19 30 04/30/19 22:00 92 27 154/79 (104) 100 04/30/19 21:00 79 16 145/77 (99) 100 04/30/19 20:55 85 17 30 04/30/19 20:00 Mechanical Ventilator 04/30/19 20:00 97.7 90 17 139/67 (91) 100 04/30/19 20:00 76 04/30/19 20:00 30 04/30/19 19:06 88 16 30 04/30/19 19:00 85 18 135/69 (91) 100 04/30/19 18:00 107 18 142/68 (92) 100 04/30/19 17:10 89 16 30 04/30/19 17:00 86 18 138/75 (96) 100 04/30/19 16:00 76 04/30/19 16:00 Mechanical Ventilator 04/30/19 16:00 30 04/30/19 16:00 98.9 85 18 130/65 (86) 100 04/30/19 15:00 85 18 147/76 (99) 100 04/30/19 14:48 87 16 30 04/30/19 14:00 85 18 147/76 (99) 100 04/30/19 13:09 78 16 30 04/30/19 13:00 85 18 147/76 (99) 100 04/30/19 12:00 86 18 145/79 (101) 100 04/30/19 12:00 30 04/30/19 12:00 Mechanical Ventilator 04/30/19 12:00 98 04/30/19 11:07 77 16 30 04/30/19 11:00 77 18 152/72 (98) 100 04/30/19 10:00 79 18 147/71 (96) 100 04/30/19 09:00 87 18 146/77 (100) 100 04/30/19 08:40 101 16 30 04/30/19 08:00 30 04/30/19 08:00 89 18 153/78 (103) 100 04/30/19 08:00 84 04/30/19 08:00 Mechanical Ventilator 04/30/19 07:16 76 16 30 04/30/19 07:00 89 18 157/77 (103) 100 04/30/19 06:00 83 18 149/77 (101) 100 Status: awake Condition: critical, improving HEENT: atraumatic Neck: full ROM Lungs: rales, rhonchi Abdomen: soft, non-tender Extremities: no C/C/E, edema Decubiti: location Accucheck: 201 Critical Care - Subjective ROS Limited/Unobtainable: Yes Condition: critical EKG Rhythm: Sinus Rhythm FI02: 30 Vent Support Breath Rate: 16 Vent Support Mode: AC Vent Tidal Volume: 500 Sputum Amount: Moderate PEEP: 5.0 PIP: 35 Tube Feeding Amount: 60 I&O: Intake and Output 04/30/19 05/01/19 19:00 07:00 Intake Total 820 ml 480 ml Output Total 720 ml 335 ml Balance 100 ml 145 ml Free Water 100 ml 120 ml Tube Feeding 720 ml 360 ml Output Urine Total 720 ml 335 ml # Bowel Movements 4 CXR: bilateral pneumonia ET-Tube: 7.5 ET Position: 23 Labs: Laboratory Tests Test 04/30/19 07:57 Arterial Blood pH 7.454 (7.350-7.450) Arterial Blood Partial Pressure CO2 40.7 mmHg (35.0-45.0) Arterial Blood Partial Pressure O2 74.9 mmHg (75.0-100.0) L Arterial Blood HCO3 27.9 mmol/L (22.0-26.0) H Arterial Blood Oxygen Saturation 94.7 % (95-100) L Arterial Blood Base Excess 3.7 (-2-2) H Marlo Test Positive Tony Springer MD May 01, 2019 05:26
--- NOTE | 2019-05-01 05:50 | NUR ---
NURSE NOTES: PT IS CURRENTLY ASLEEP, NO ACUTE EVENTS, PT WAS CLEANED, BM NOTED AND DOCUMENTED. SAFETY PRECAUTIONS CONTINUED. WILL CONTINUE TO MONITOR.
[2019-05-01 05:52] LABS: BASOPHILS % (AUTO) 0.6 % (0.0-2.0); HEMATOCRIT 25.8 % (37.0-47.0); HEMOGLOBIN 8.1 G/DL (12.0-16.0); LYMPHOCYTES % (AUTO) 17.7 % (20.0-45.0); MEAN CORPUSCULAR VOLUME 89 FL (80-99); MONOCYTES % (AUTO) 5.4 % (1.0-10.0); NEUTROPHILS % (AUTO) 74.3 % (45.0-75.0); PLATELET COUNT 166 K/UL (150-450); RED BLOOD COUNT 2.89 M/UL (4.20-5.40); RED CELL DISTRIBUTION WIDTH 15.1 % (11.6-14.8); WHITE BLOOD COUNT 11.1 K/UL (4.8-10.8)
[2019-05-01] MEDS: NovoLOG Insulin Flexpen SUBQ SCH ×4 (06:05→23:56)
[2019-05-01 06:15] LABS: ALANINE AMINOTRANSFERASE 13 U/L (12-78); ALBUMIN 1.3 G/DL (3.4-5.0); ALBUMIN/GLOBULIN RATIO 0.2 (1.0-2.7); ALKALINE PHOSPHATASE 111 U/L (46-116); ANION GAP 9 mmol/L (5-15); ASPARTATE AMINO TRANSFERASE 31 U/L (15-37); BILIRUBIN,TOTAL 0.3 MG/DL (0.2-1.0); BLOOD UREA NITROGEN 59 mg/dL (7-18); CALCIUM 8.7 MG/DL (8.5-10.1); CARBON DIOXIDE 28 MMOL/L (21-32); CHLORIDE 110 MMOL/L (98-107); CREATININE 1.7 MG/DL (0.55-1.30); SODIUM 147 MMOL/L (136-145)
--- NOTE | 2019-05-01 07:04 | NUR ---
NURSE NOTES: Report received from HORTENCIA Malik
--- NOTE | 2019-05-01 07:05 | General Progress Note ---
Assessment/Plan Problem List: (1) Acute metabolic encephalopathy ICD Codes: G93.41 - Metabolic encephalopathy SNOMED: 06464209, 460250876 (2) 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 ICD Codes: E11.22 - Type 2 diabetes mellitus with diabetic chronic kidney disease; N18.4 - Chronic kidney disease, stage 4 (severe) SNOMED: 63228624, 532101021, 714577261 (3) Diabetes mellitus ICD Codes: E11.9 - Type 2 diabetes mellitus without complications SNOMED: 32454123 (4) CAD (coronary artery disease) ICD Codes: I25.10 - Atherosclerotic heart disease of [place] coronary artery without angina pectoris SNOMED: 06188845 (5) History of CVA (cerebrovascular accident) ICD Codes: Z86.73 - Personal history of transient ischemic attack (TIA), and cerebral infarction without residual deficits SNOMED: 849814068 (6) Anemia in chronic kidney disease (CKD) ICD Codes: N18.9 - Chronic kidney disease, unspecified; D63.1 - Anemia in chronic kidney disease SNOMED: 921627783 (7) Diabetic nephropathy ICD Codes: E11.21 - Type 2 diabetes mellitus with diabetic nephropathy SNOMED: 376859390 Status: unchanged Assessment/Plan: intubated GTF fu labs fu pulm recs prn blood transfusion ppi Subjective ROS Limited/Unobtainable: No Allergies: Coded Allergies: No Known Allergies (Unverified , 04/12/19) Objective Last 24 Hour Vital Signs Date Time Temp Pulse Resp B/P (MAP) Pulse Ox O2 Delivery O2 Flow Rate FiO2 05/01/19 06:00 83 6 144/77 (99) 96 05/01/19 05:06 92 16 30 05/01/19 05:00 89 16 150/81 (104) 95 05/01/19 04:00 Mechanical Ventilator 05/01/19 04:00 97.2 95 20 147/77 (100) 94 05/01/19 04:00 100 05/01/19 04:00 30 05/01/19 03:00 102 25 150/76 (100) 94 05/01/19 02:50 95 16 30 05/01/19 02:00 85 16 141/71 (94) 96 05/01/19 01:05 94 16 30 05/01/19 01:00 90 16 144/86 (105) 97 7/6/19 00:41 108 05/01/19 00:41 Mechanical Ventilator 05/01/19 00:41 30 05/01/19 00:00 99.2 94 16 144/78 (100) 96 04/30/19 23:00 108 22 159/81 (107) 96 04/30/19 22:50 97 19 30 04/30/19 22:00 92 27 154/79 (104) 100 04/30/19 21:00 79 16 145/77 (99) 100 04/30/19 20:55 85 17 30 04/30/19 20:00 Mechanical Ventilator 04/30/19 20:00 97.7 90 17 139/67 (91) 100 04/30/19 20:00 76 04/30/19 20:00 30 04/30/19 19:06 88 16 30 04/30/19 19:00 85 18 135/69 (91) 100 04/30/19 18:00 107 18 142/68 (92) 100 04/30/19 17:10 89 16 30 04/30/19 17:00 86 18 138/75 (96) 100 04/30/19 16:00 76 04/30/19 16:00 Mechanical Ventilator 04/30/19 16:00 30 04/30/19 16:00 98.9 85 18 130/65 (86) 100 04/30/19 15:00 85 18 147/76 (99) 100 04/30/19 14:48 87 16 30 04/30/19 14:00 85 18 147/76 (99) 100 04/30/19 13:09 78 16 30 04/30/19 13:00 85 18 147/76 (99) 100 04/30/19 12:00 86 18 145/79 (101) 100 04/30/19 12:00 30 04/30/19 12:00 Mechanical Ventilator 04/30/19 12:00 98 04/30/19 11:07 77 16 30 04/30/19 11:00 77 18 152/72 (98) 100 04/30/19 10:00 79 18 147/71 (96) 100 04/30/19 09:00 87 18 146/77 (100) 100 04/30/19 08:40 101 16 30 04/30/19 08:00 30 04/30/19 08:00 89 18 153/78 (103) 100 04/30/19 08:00 84 04/30/19 08:00 Mechanical Ventilator 04/30/19 07:16 76 16 30 Intake and Output 04/30/19 05/01/19 19:00 07:00 Intake Total 820 ml 840 ml Output Total 720 ml 545 ml Balance 100 ml 295 ml Free Water 100 ml 180 ml Tube Feeding 720 ml 660 ml Output Urine Total 720 ml 545 ml # Bowel Movements 4 1 Laboratory Tests 04/30/19 07:57: Arterial Blood pH 7.454H, Arterial Blood Partial Pressure CO2 40.7, Arterial Blood Partial Pressure O2 74.9L, Arterial Blood HCO3 27.9H, Arterial Blood Oxygen Saturation 94.7L, Arterial Blood Base Excess 3.7H, Marlo Test Positive 05/01/19 04:47: White Blood Count 11.1H, Red Blood Count 2.89L, Hemoglobin 8.1L, Hematocrit 25.8L, Mean Corpuscular Volume 89, Mean Corpuscular Hemoglobin 28.0, Mean Corpuscular Hemoglobin Concent 31.3L, Red Cell Distribution Width 15.1H, Platelet Count 166, Mean Platelet Volume 6.9, Neutrophils (%) (Auto) 74.3, Lymphocytes (%) (Auto) 17.7L, Monocytes (%) (Auto) 5.4, Eosinophils (%) (Auto) 2.0, Basophils (%) (Auto) 0.6, Sodium Level 147H, Potassium Level 5.0, Chloride Level 110H, Carbon Dioxide Level 28, Anion Gap 9, Blood Urea Nitrogen 59H, Creatinine 1.7H, Estimat Glomerular Filtration Rate , Glucose Level 216H, Calcium Level 8.7, Total Bilirubin 0.3, Aspartate Amino Transf (AST/SGOT) 31, Alanine Aminotransferase (ALT/SGPT) 13, Alkaline Phosphatase 111, Pro-B-Type Natriuretic Peptide [Pending], Total Protein 6.7, Albumin 1.3L, Globulin 5.4, Albumin/Globulin Ratio 0.2L Height (Feet): 5 Height (Inches): 7.00 Weight (Pounds): 219 General Appearance: lethargic EENT: normal ENT inspection Neck: supple Cardiovascular: normal rate Respiratory/Chest: decreased breath sounds Abdomen: normal bowel sounds, non tender, soft Extremities: non-tender Darron Gentile MD May 01, 2019 07:05
--- NOTE | 2019-05-01 07:18 | NUR ---
HAND-OFF: Report given to HORTENCIA OLIVIA. PT IN STABLE CONDITION.
--- NOTE | 2019-05-01 07:50 | General Progress Note ---
Assessment/Plan Problem List: (1) UTI (urinary tract infection) ICD Codes: N39.0 - Urinary tract infection, site not specified SNOMED: 12410523 (2) Respiratory distress ICD Codes: R06.03 - Acute respiratory distress SNOMED: 257348125 (3) Malnutrition ICD Codes: E46 - Unspecified protein-calorie malnutrition SNOMED: 10572262 (4) Sepsis ICD Codes: A41.9 - Sepsis, unspecified organism SNOMED: 41971166 (5) Pneumonia ICD Codes: J18.9 - Pneumonia, unspecified organism SNOMED: 762144755 Qualifiers: Qualified Codes: J18.9 - Pneumonia, unspecified organism (6) 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 ICD Codes: E11.22 - Type 2 diabetes mellitus with diabetic chronic kidney disease; N18.4 - Chronic kidney disease, stage 4 (severe) SNOMED: 39283990, 128888710, 936254854 (7) Respiratory failure ICD Codes: J96.90 - Respiratory failure, unspecified, unspecified whether with hypoxia or hypercapnia SNOMED: 792423875 Qualifiers: Qualified Codes: J96.02 - Acute respiratory failure with hypercapnia Status: unchanged Assessment/Plan: pt diet abx o2 pulm tx neuro psyc eval cbc bmp am ltach eval Subjective Constitutional: Reports: weakness Allergies: Coded Allergies: No Known Allergies (Unverified , 04/12/19) All Systems: reviewed and negative except above Subjective intubated in icu Objective Last 24 Hour Vital Signs Date Time Temp Pulse Resp B/P (MAP) Pulse Ox O2 Delivery O2 Flow Rate FiO2 05/01/19 07:15 77 16 30 05/01/19 07:00 79 16 142/81 (101) 96 05/01/19 06:00 83 6 144/77 (99) 96 05/01/19 05:06 92 16 30 05/01/19 05:00 89 16 150/81 (104) 95 05/01/19 04:00 Mechanical Ventilator 05/01/19 04:00 97.2 95 20 147/77 (100) 94 05/01/19 04:00 100 05/01/19 04:00 30 05/01/19 03:00 102 25 150/76 (100) 94 05/01/19 02:50 95 16 30 05/01/19 02:00 85 16 141/71 (94) 96 05/01/19 01:05 94 16 30 05/01/19 01:00 90 16 144/86 (105) 97 05/01/19 00:41 108 05/01/19 00:41 Mechanical Ventilator 05/01/19 00:41 30 05/01/19 00:00 99.2 94 16 144/78 (100) 96 04/30/19 23:00 108 22 159/81 (107) 96 04/30/19 22:50 97 19 30 04/30/19 22:00 92 27 154/79 (104) 100 04/30/19 21:00 79 16 145/77 (99) 100 04/30/19 20:55 85 17 30 04/30/19 20:00 Mechanical Ventilator 04/30/19 20:00 97.7 90 17 139/67 (91) 100 04/30/19 20:00 76 04/30/19 20:00 30 04/30/19 19:06 88 16 30 04/30/19 19:00 85 18 135/69 (91) 100 04/30/19 18:00 107 18 142/68 (92) 100 04/30/19 17:10 89 16 30 04/30/19 17:00 86 18 138/75 (96) 100 04/30/19 16:00 76 04/30/19 16:00 Mechanical Ventilator 04/30/19 16:00 30 04/30/19 16:00 98.9 85 18 130/65 (86) 100 04/30/19 15:00 85 18 147/76 (99) 100 04/30/19 14:48 87 16 30 04/30/19 14:00 85 18 147/76 (99) 100 04/30/19 13:09 78 16 30 04/30/19 13:00 85 18 147/76 (99) 100 04/30/19 12:00 86 18 145/79 (101) 100 04/30/19 12:00 30 04/30/19 12:00 Mechanical Ventilator 04/30/19 12:00 98 04/30/19 11:07 77 16 30 04/30/19 11:00 77 18 152/72 (98) 100 04/30/19 10:00 79 18 147/71 (96) 100 04/30/19 09:00 87 18 146/77 (100) 100 04/30/19 08:40 101 16 30 04/30/19 08:00 30 04/30/19 08:00 89 18 153/78 (103) 100 04/30/19 08:00 84 04/30/19 08:00 Mechanical Ventilator Intake and Output 04/30/19 05/01/19 19:00 07:00 Intake Total 820 ml 900 ml Output Total 720 ml 575 ml Balance 100 ml 325 ml Free Water 100 ml 180 ml Tube Feeding 720 ml 720 ml Output Urine Total 720 ml 575 ml # Bowel Movements 4 2 Laboratory Tests 04/30/19 07:57: Arterial Blood pH 7.454H, Arterial Blood Partial Pressure CO2 40.7, Arterial Blood Partial Pressure O2 74.9L, Arterial Blood HCO3 27.9H, Arterial Blood Oxygen Saturation 94.7L, Arterial Blood Base Excess 3.7H, Marlo Test Positive 05/01/19 04:47: White Blood Count 11.1H, Red Blood Count 2.89L, Hemoglobin 8.1L, Hematocrit 25.8L, Mean Corpuscular Volume 89, Mean Corpuscular Hemoglobin 28.0, Mean Corpuscular Hemoglobin Concent 31.3L, Red Cell Distribution Width 15.1H, Platelet Count 166, Mean Platelet Volume 6.9, Neutrophils (%) (Auto) 74.3, Lymphocytes (%) (Auto) 17.7L, Monocytes (%) (Auto) 5.4, Eosinophils (%) (Auto) 2.0, Basophils (%) (Auto) 0.6, Sodium Level 147H, Potassium Level 5.0, Chloride Level 110H, Carbon Dioxide Level 28, Anion Gap 9, Blood Urea Nitrogen 59H, Creatinine 1.7H, Estimat Glomerular Filtration Rate , Glucose Level 216H, Calcium Level 8.7, Total Bilirubin 0.3, Aspartate Amino Transf (AST/SGOT) 31, Alanine Aminotransferase (ALT/SGPT) 13, Alkaline Phosphatase 111, Pro-B-Type Natriuretic Peptide 47340Y, Total Protein 6.7, Albumin 1.3L, Globulin 5.4, Albumin/Globulin Ratio 0.2L Height (Feet): 5 Height (Inches): 7.00 Weight (Pounds): 219 General Appearance: lethargic EENT: normal ENT inspection Neck: normal alignment Cardiovascular: normal peripheral pulses, normal rate, regular rhythm Respiratory/Chest: chest wall non-tender, lungs clear, normal breath sounds Abdomen: normal bowel sounds, non tender, soft Extremities: normal inspection Edema: no edema noted Arm (L), no edema noted Arm (R), no edema noted Leg (L), no edema noted Leg (R), no edema noted Pedal (L), no edema noted Pedal (R), no edema noted Generalized Neurologic: motor weakness Skin: normal pigmentation, warm/dry Jama Keating DO May 01, 2019 07:50
--- NOTE | 2019-05-01 08:05 | NUR ---
NURSE NOTES: Patient received from HORTENCIA Malik. Asleep easily arousal to verbal and tactile stimuli.Afebrile and non verbal.Orally intubated ETT 7.5, 23 cm, AC 16, TV 500, 30%, PEEP5. Saturate at 98% on the monitor.HOB elevated at 35 degree to prevent aspiration. OGT in place and placement intact running Glucerna 1.2 at 60 cc/hr. Abdomen soft and non distended.Bowel sounds present in all 4 quadrants. Fraga catheter draining yellowish urine with no apparent sediments noted.SUZIE PICC with dressing clean and intact. Left wrist with soft restraint.Will continue to monitor.Kept clean dry and comfortable and call light within easy reach.
[2019-05-01] MEDS: Midodrine 10mg tab NG SCH ×3 (08:40→18:00)
--- NOTE | 2019-05-01 08:40 | NUR ---
NURSE NOTES: Midodrine waisted, parameter our range
--- NOTE | 2019-05-01 10:06 | NUR ---
NURSE NOTES: Mouth care done, turned and repositioned.Kept clean and dry.Call light within easy reach.
--- NOTE | 2019-05-01 10:15 | Diagnostic Imaging Report ---
EXAM: XR Chest, 1 View CLINICAL HISTORY: DYSPNEA TECHNIQUE: Frontal view of the chest. COMPARISON: Chest x-ray dated 04/30/19 FINDINGS: Lungs: Diffuse bilateral patchy interstitial and alveolar opacities, mildly worsened compared to the prior exam. Pleural space: Unremarkable. The costophrenic angles are sharp. No visible pneumothorax. Heart: Unremarkable. No cardiomegaly. Mediastinum: Unremarkable. Bones/joints: Unremarkable. Tubes, lines and devices: Stable positioning of the endotracheal tube. Telemetry leads overlie the thorax. IMPRESSION: Diffuse bilateral patchy interstitial and alveolar opacities, mildly worsened compared to the prior exam. This may represent pulmonary edema versus pneumonia.
--- NOTE | 2019-05-01 12:11 | NUR ---
NURSE NOTES: Midodrine waisted,parameter out range
--- NOTE | 2019-05-01 12:38 | Infectious Diseases Prog Note ---
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 PNA, sp Rx Pulmonary edema -04/26 CXR: Suspect slightly increased interstitial and airspace edema, over 2 days.Possibly improving small right pleural effusion -04/19 CXR: There is less pulmonary edema compared to yesterday but with moderate residual edema. -04/16 CXR: . Right perihilar and bilateral lower lobe pulmonary consolidation concerning for pneumonia.Small bilateral pleural effusions. CXR - B/L Infiltrates Low grade fevers; improving WBCs up to 25; improving -04/24 Cdiff eng 04/16 Sp Cx - C. alb; 04/19 spC. albicans (colonizer) -BCx NTD -legionella ag urine neg Widened mediastinum - right sided aortic arch CXR - Apparent upper mediastinal widening. Possibly due to ectatic vasculature and body habitus, but upper mediastinal mass also possible. Correlate with any prior adiographs and may be available, consider CT for further evaluation if clinically indicated CT 04/13/19 - Right-sided aortic arch, presumably accounting for the apparent upper mediastinal widening demonstrated on recent plain radiograph. No evidence of upper mediastinal mass. Extensive bilateral lower lobe consolidation , likely pneumonia, less extensive left upper lobe consolidation. 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 CKD CAD PLAN Continue to monitor off abx for now -low threshold to resume abx -04/28 SP Cefepime #6 -04/22 SP Meropenem #5 -04/20 SP Vancomycin #8 - 04/18/19 S/P Cefepime #6 - f/u cultures - Monitor CBC and Temps -CXR am - Tach :P Subjective Allergies: Coded Allergies: No Known Allergies (Unverified , 04/12/19) Subjective trach on friday Objective Vital Signs Last 24 Hour Vital Signs Date Time Temp Pulse Resp B/P (MAP) Pulse Ox O2 Delivery O2 Flow Rate FiO2 05/01/19 12:00 30 05/01/19 12:00 Mechanical Ventilator 05/01/19 12:00 98.9 81 12 146/77 (100) 94 05/01/19 11:00 63 16 149/69 (95) 97 7/6/19 10:49 68 16 30 05/01/19 10:00 30 05/01/19 10:00 68 16 149/82 (104) 98 05/01/19 09:00 67 16 144/76 (98) 98 05/01/19 08:54 90 16 30 05/01/19 08:00 Mechanical Ventilator 05/01/19 08:00 85 05/01/19 07:15 77 16 30 05/01/19 07:00 79 16 142/81 (101) 96 05/01/19 06:00 83 6 144/77 (99) 96 05/01/19 05:06 92 16 30 05/01/19 05:00 89 16 150/81 (104) 95 05/01/19 04:00 Mechanical Ventilator 05/01/19 04:00 97.2 95 20 147/77 (100) 94 05/01/19 04:00 100 05/01/19 04:00 30 05/01/19 03:00 102 25 150/76 (100) 94 05/01/19 02:50 95 16 30 05/01/19 02:00 85 16 141/71 (94) 96 05/01/19 01:05 94 16 30 05/01/19 01:00 90 16 144/86 (105) 97 05/01/19 00:41 108 05/01/19 00:41 Mechanical Ventilator 05/01/19 00:41 30 05/01/19 00:00 99.2 94 16 144/78 (100) 96 04/30/19 23:00 108 22 159/81 (107) 96 04/30/19 22:50 97 19 30 04/30/19 22:00 92 27 154/79 (104) 100 04/30/19 21:00 79 16 145/77 (99) 100 04/30/19 20:55 85 17 30 04/30/19 20:00 Mechanical Ventilator 04/30/19 20:00 97.7 90 17 139/67 (91) 100 04/30/19 20:00 76 04/30/19 20:00 30 04/30/19 19:06 88 16 30 04/30/19 19:00 85 18 135/69 (91) 100 04/30/19 18:00 107 18 142/68 (92) 100 04/30/19 17:10 89 16 30 04/30/19 17:00 86 18 138/75 (96) 100 04/30/19 16:00 76 04/30/19 16:00 Mechanical Ventilator 04/30/19 16:00 30 04/30/19 16:00 98.9 85 18 130/65 (86) 100 04/30/19 15:00 85 18 147/76 (99) 100 04/30/19 14:48 87 16 30 04/30/19 14:00 85 18 147/76 (99) 100 04/30/19 13:09 78 16 30 04/30/19 13:00 85 18 147/76 (99) 100 Height (Feet): 5 Height (Inches): 7.00 Weight (Pounds): 219 HEENT: anicteric Respiratory/Chest: normal breath sounds Cardiovascular: regularly irregular Abdomen: non distended Laboratory Tests Test 05/01/19 04:47 White Blood Count 11.1 K/UL (4.8-10.8) H Red Blood Count 2.89 M/UL (4.20-5.40) L Hemoglobin 8.1 G/DL (12.0-16.0) L Hematocrit 25.8 % (37.0-47.0) L Mean Corpuscular Volume 89 FL (80-99) Mean Corpuscular Hemoglobin 28.0 PG (27.0-31.0) Mean Corpuscular Hemoglobin Concent 31.3 G/DL (32.0-36.0) L Red Cell Distribution Width 15.1 % (11.6-14.8) H Platelet Count 166 K/UL (150-450) Mean Platelet Volume 6.9 FL (6.5-10.1) Neutrophils (%) (Auto) 74.3 % (45.0-75.0) Lymphocytes (%) (Auto) 17.7 % (20.0-45.0) L Monocytes (%) (Auto) 5.4 % (1.0-10.0) Eosinophils (%) (Auto) 2.0 % (0.0-3.0) Basophils (%) (Auto) 0.6 % (0.0-2.0) Sodium Level 147 MMOL/L (136-145) H Potassium Level 5.0 MMOL/L (3.5-5.1) Chloride Level 110 MMOL/L (98-107) H Carbon Dioxide Level 28 MMOL/L (21-32) Anion Gap 9 mmol/L (5-15) Blood Urea Nitrogen 59 mg/dL (7-18) H Creatinine 1.7 MG/DL (0.55-1.30) H Estimat Glomerular Filtration Rate mL/min (>60) Glucose Level 216 MG/DL (74-106) H Calcium Level 8.7 MG/DL (8.5-10.1) Total Bilirubin 0.3 MG/DL (0.2-1.0) Aspartate Amino Transf (AST/SGOT) 31 U/L (15-37) Alanine Aminotransferase (ALT/SGPT) 13 U/L (12-78) Alkaline Phosphatase 111 U/L (46-116) Pro-B-Type Natriuretic Peptide 45864 pg/mL (0-125) H Total Protein 6.7 G/DL (6.4-8.2) Albumin 1.3 G/DL (3.4-5.0) L Globulin 5.4 g/dL Albumin/Globulin Ratio 0.2 (1.0-2.7) L Current Medications Medications (Trade) Dose Ordered Sig/Kenisha Route PRN Reason Start Time Stop Time Status Last Admin Dose Admin Acetaminophen (Tylenol) 650 mg Q4H PRN ORAL FEVER 04/17/19 12:36 05/17/19 12:35 04/25/19 23:56 Acetaminophen (Tylenol) 650 mg Q4H PRN RECTAL Fever 04/17/19 12:36 05/17/19 12:35 04/18/19 08:53 Albuterol/ Ipratropium (Albuterol/ Ipratropium) 3 ml Q4H PRN HHN Shortness of Breath 04/29/19 07:30 05/04/19 07:29 Chlorhexidine Gluconate (Izzy-Hex 2%) 1 applic DAILY@2000 TOPIC 04/20/19 20:00 05/20/19 19:59 04/30/19 20:33 Dextrose (Dextrose 50%) 25 ml Q30M PRN IV Hypoglycemia 04/17/19 12:45 05/12/19 19:44 Dextrose (Dextrose 50%) 50 ml Q30M PRN IV Hypoglycemia 04/17/19 12:45 05/12/19 19:44 Epoetin Bandar (Epoetin Bandar-EPBX(NON ESRD)) 10,000 unit SUBQ 04/28/19 21:00 05/28/19 20:59 04/30/19 20:32 Folic Acid (Folate) 1 mg DAILY ORAL 04/26/19 09:00 05/19/19 08:59 05/01/19 08:38 Hydralazine HCl (Apresoline) 10 mg Q2H PRN IV For High Blood Pressure 04/17/19 12:36 05/17/19 12:35 Insulin Aspart (NovoLOG) Q6HR SUBQ 04/20/19 18:00 05/20/19 17:59 05/01/19 12:10 Lansoprazole (Prevacid) 30 mg DAILY GT 04/22/19 09:00 05/22/19 08:59 05/01/19 08:38 Midodrine (Pro-Amatine) 5 mg THREE TIMES A DAY NG 04/27/19 13:00 05/21/19 12:59 04/29/19 18:15 Ondansetron HCl (Zofran) 4 mg Q6H PRN IVP Nausea & Vomiting 04/17/19 12:37 05/17/19 12:36 Polyethylene Glycol (Miralax) 17 gm DAILYPRN PRN ORAL Constipation 04/17/19 12:37 05/17/19 12:36 04/23/19 10:31 Phu Haque MD May 01, 2019 12:38
--- NOTE | 2019-05-01 13:17 | NUR ---
CASE MANAGEMENT: REVIEW SI: ACUTE RESP FAILURE . DYSPHAGIA . MALNUTRITION . SEPSIS . PULMONARY EDEMA . PNA PEG PLACEMENT 04/21 T 98.6 HR 81 RR 12 BP 146/77 SAT 94% MECH VENT FIO2 30 H/H 8.1/25.8 NA 147 BUN 59 CR 1.7 IS: PREVACID GT QD MIDODRINE PO TID EPOETIN SUBQ MWF ICU STATUS DCP: PATIENT IS FROM [facility]
--- NOTE | 2019-05-01 14:15 | NUR ---
NURSE NOTES: Pt asleep, easily arousal to tactile stimuli. Turned and repositioned for skin management.Mouth care done.Kept clean and dry.Will continue to monitor.
--- NOTE | 2019-05-01 14:59 | Cardiac Electrophysiology PN ---
Assessment/Plan Assessment/Plan 1. Atrial flutter, self terminated. Off AVN jose for low BP 2. Hypotension. On Midodrine 10 tid 3. Coronary artery disease. On Plavix 75 mg daily 4. Respiratory failure, intubated EF 60%. Tracheostomy pending Friday. 5. Sepsis. White count 25,000. On IV abx 6. Anemia.S/P PRBC. 7. Renal failure BUN/Cr improved with hydration by Dr. Spivey 8. Dysphagia. S/P PEG 04/22/19 9. History of CVA with hemiplegia. 10. Nonverbal status. 11. Full code DW RN Subjective Subjective Intubated in ICU. Tracheostomy pending on Friday. No arrhythmias overnight Objective Last 24 Hour Vital Signs Date Time Temp Pulse Resp B/P (MAP) Pulse Ox O2 Delivery O2 Flow Rate FiO2 05/01/19 14:00 69 16 133/74 (93) 96 05/01/19 13:03 69 16 30 05/01/19 13:00 69 16 148/70 (96) 97 05/01/19 12:00 30 05/01/19 12:00 Mechanical Ventilator 05/01/19 12:00 70 05/01/19 12:00 98.9 81 12 146/77 (100) 94 05/01/19 11:00 63 16 149/69 (95) 97 05/01/19 10:49 68 16 30 05/01/19 10:00 30 05/01/19 10:00 68 16 149/82 (104) 98 05/01/19 09:00 67 16 144/76 (98) 98 05/01/19 08:54 90 16 30 05/01/19 08:00 Mechanical Ventilator 05/01/19 08:00 85 05/01/19 07:15 77 16 30 05/01/19 07:00 79 16 142/81 (101) 96 05/01/19 06:00 83 6 144/77 (99) 96 05/01/19 05:06 92 16 30 05/01/19 05:00 89 16 150/81 (104) 95 05/01/19 04:00 Mechanical Ventilator 05/01/19 04:00 97.2 95 20 147/77 (100) 94 05/01/19 04:00 100 05/01/19 04:00 30 05/01/19 03:00 102 25 150/76 (100) 94 05/01/19 02:50 95 16 30 05/01/19 02:00 85 16 141/71 (94) 96 05/01/19 01:05 94 16 30 05/01/19 01:00 90 16 144/86 (105) 97 05/01/19 00:41 108 05/01/19 00:41 Mechanical Ventilator 05/01/19 00:41 30 05/01/19 00:00 99.2 94 16 144/78 (100) 96 04/30/19 23:00 108 22 159/81 (107) 96 04/30/19 22:50 97 19 30 04/30/19 22:00 92 27 154/79 (104) 100 04/30/19 21:00 79 16 145/77 (99) 100 04/30/19 20:55 85 17 30 04/30/19 20:00 Mechanical Ventilator 04/30/19 20:00 97.7 90 17 139/67 (91) 100 04/30/19 20:00 76 04/30/19 20:00 30 04/30/19 19:06 88 16 30 04/30/19 19:00 85 18 135/69 (91) 100 04/30/19 18:00 107 18 142/68 (92) 100 04/30/19 17:10 89 16 30 04/30/19 17:00 86 18 138/75 (96) 100 04/30/19 16:00 76 04/30/19 16:00 Mechanical Ventilator 04/30/19 16:00 30 04/30/19 16:00 98.9 85 18 130/65 (86) 100 04/30/19 15:00 85 18 147/76 (99) 100 Intake and Output 04/30/19 05/01/19 18:59 06:59 Intake Total 820 ml 900 ml Output Total 720 ml 605 ml Balance 100 ml 295 ml Free Water 100 ml 180 ml Tube Feeding 720 ml 720 ml Output Urine Total 720 ml 605 ml # Bowel Movements 2 3 Laboratory Tests Test 05/01/19 04:47 White Blood Count 11.1 K/UL (4.8-10.8) H Red Blood Count 2.89 M/UL (4.20-5.40) L Hemoglobin 8.1 G/DL (12.0-16.0) L Hematocrit 25.8 % (37.0-47.0) L Mean Corpuscular Volume 89 FL (80-99) Mean Corpuscular Hemoglobin 28.0 PG (27.0-31.0) Mean Corpuscular Hemoglobin Concent 31.3 G/DL (32.0-36.0) L Red Cell Distribution Width 15.1 % (11.6-14.8) H Platelet Count 166 K/UL (150-450) Mean Platelet Volume 6.9 FL (6.5-10.1) Neutrophils (%) (Auto) 74.3 % (45.0-75.0) Lymphocytes (%) (Auto) 17.7 % (20.0-45.0) L Monocytes (%) (Auto) 5.4 % (1.0-10.0) Eosinophils (%) (Auto) 2.0 % (0.0-3.0) Basophils (%) (Auto) 0.6 % (0.0-2.0) Sodium Level 147 MMOL/L (136-145) H Potassium Level 5.0 MMOL/L (3.5-5.1) Chloride Level 110 MMOL/L (98-107) H Carbon Dioxide Level 28 MMOL/L (21-32) Anion Gap 9 mmol/L (5-15) Blood Urea Nitrogen 59 mg/dL (7-18) H Creatinine 1.7 MG/DL (0.55-1.30) H Estimat Glomerular Filtration Rate mL/min (>60) Glucose Level 216 MG/DL (74-106) H Calcium Level 8.7 MG/DL (8.5-10.1) Total Bilirubin 0.3 MG/DL (0.2-1.0) Aspartate Amino Transf (AST/SGOT) 31 U/L (15-37) Alanine Aminotransferase (ALT/SGPT) 13 U/L (12-78) Alkaline Phosphatase 111 U/L (46-116) Pro-B-Type Natriuretic Peptide 23088 pg/mL (0-125) H Total Protein 6.7 G/DL (6.4-8.2) Albumin 1.3 G/DL (3.4-5.0) L Globulin 5.4 g/dL Albumin/Globulin Ratio 0.2 (1.0-2.7) L Objective HEAD AND NECK: No JVD. Orally intubated LUNGS: Coarse rhonchi bilaterally. CARDIOVASCULAR: Regular S1 and S2 with no gallop. ABDOMEN: Soft.PEG in place EXTREMITIES: No pitting edema. Claude Pena MD May 01, 2019 14:59
--- NOTE | 2019-05-01 15:40 | Nephrology Progress Note ---
Assessment/Plan Problem List: (1) Renal failure (ARF), acute on chronic (2) Diabetic nephropathy (3) Sepsis (4) Pneumonia (5) Right hemiplegia (6) Anemia in chronic kidney disease (CKD) (7) Pulmonary hypertension Assessment intubated- Renal failure; - Pre Renal - ? Underlying Renal Anemia Pneumonia / respiratory failure Sepsis elevated Troponin UTI HyperGlycemia / DM Right Esvin HTN Plan due trach 05/03 kayexelate as needed discussed with RN transfuse for low Hgb as needed K Phos IV as needed venofer Folate 24 H urine protein check 2.4 gram Fraga Hydrate BP and BS control urine studies slow hydrate kidney MAIKEL results noted: No [place] 2D echo Noted visualized except distal setum and inferiro wall hypokinesis Left ventricular ejection fraction estimated to be 55-60 %. avoid Nephrotoxics per orders Subjective ROS Limited/Unobtainable: Yes Objective Objective Last 24 Hour Vital Signs Date Time Temp Pulse Resp B/P (MAP) Pulse Ox O2 Delivery O2 Flow Rate FiO2 05/01/19 15:02 73 16 30 05/01/19 14:00 69 16 133/74 (93) 96 05/01/19 13:03 69 16 30 05/01/19 13:00 69 16 148/70 (96) 97 05/01/19 12:00 30 05/01/19 12:00 Mechanical Ventilator 05/01/19 12:00 70 05/01/19 12:00 98.9 81 12 146/77 (100) 94 05/01/19 11:00 63 16 149/69 (95) 97 05/01/19 10:49 68 16 30 05/01/19 10:00 30 05/01/19 10:00 68 16 149/82 (104) 98 05/01/19 09:00 67 16 144/76 (98) 98 05/01/19 08:54 90 16 30 05/01/19 08:00 Mechanical Ventilator 05/01/19 08:00 85 05/01/19 07:15 77 16 30 05/01/19 07:00 79 16 142/81 (101) 96 05/01/19 06:00 83 6 144/77 (99) 96 05/01/19 05:06 92 16 30 05/01/19 05:00 89 16 150/81 (104) 95 05/01/19 04:00 Mechanical Ventilator 05/01/19 04:00 97.2 95 20 147/77 (100) 94 05/01/19 04:00 100 05/01/19 04:00 30 05/01/19 03:00 102 25 150/76 (100) 94 05/01/19 02:50 95 16 30 05/01/19 02:00 85 16 141/71 (94) 96 05/01/19 01:05 94 16 30 05/01/19 01:00 90 16 144/86 (105) 97 05/01/19 00:41 108 05/01/19 00:41 Mechanical Ventilator 05/01/19 00:41 30 05/01/19 00:00 99.2 94 16 144/78 (100) 96 04/30/19 23:00 108 22 159/81 (107) 96 04/30/19 22:50 97 19 30 04/30/19 22:00 92 27 154/79 (104) 100 04/30/19 21:00 79 16 145/77 (99) 100 04/30/19 20:55 85 17 30 04/30/19 20:00 Mechanical Ventilator 04/30/19 20:00 97.7 90 17 139/67 (91) 100 04/30/19 20:00 76 04/30/19 20:00 30 04/30/19 19:06 88 16 30 04/30/19 19:00 85 18 135/69 (91) 100 04/30/19 18:00 107 18 142/68 (92) 100 04/30/19 17:10 89 16 30 04/30/19 17:00 86 18 138/75 (96) 100 04/30/19 16:00 76 04/30/19 16:00 Mechanical Ventilator 04/30/19 16:00 30 04/30/19 16:00 98.9 85 18 130/65 (86) 100 Intake and Output 04/30/19 05/01/19 18:59 06:59 Intake Total 820 ml 900 ml Output Total 720 ml 605 ml Balance 100 ml 295 ml Free Water 100 ml 180 ml Tube Feeding 720 ml 720 ml Output Urine Total 720 ml 605 ml # Bowel Movements 2 3 Laboratory Tests 05/01/19 04:47: White Blood Count 11.1H, Red Blood Count 2.89L, Hemoglobin 8.1L, Hematocrit 25.8L, Mean Corpuscular Volume 89, Mean Corpuscular Hemoglobin 28.0, Mean Corpuscular Hemoglobin Concent 31.3L, Red Cell Distribution Width 15.1H, Platelet Count 166, Mean Platelet Volume 6.9, Neutrophils (%) (Auto) 74.3, Lymphocytes (%) (Auto) 17.7L, Monocytes (%) (Auto) 5.4, Eosinophils (%) (Auto) 2.0, Basophils (%) (Auto) 0.6, Sodium Level 147H, Potassium Level 5.0, Chloride Level 110H, Carbon Dioxide Level 28, Anion Gap 9, Blood Urea Nitrogen 59H, Creatinine 1.7H, Estimat Glomerular Filtration Rate , Glucose Level 216H, Calcium Level 8.7, Total Bilirubin 0.3, Aspartate Amino Transf (AST/SGOT) 31, Alanine Aminotransferase (ALT/SGPT) 13, Alkaline Phosphatase 111, Pro-B-Type Natriuretic Peptide [id number], Total Protein 6.7, Albumin 1.3L, Globulin 5.4, Albumin/Globulin Ratio 0.2L Height (Feet): 5 Height (Inches): 7.00 Weight (Pounds): 219 General Appearance: no apparent distress EENT: other - intubated Cardiovascular: normal rate Respiratory/Chest: decreased breath sounds Abdomen: distended Objective no change Wally Spivey MD May 01, 2019 15:40
--- NOTE | 2019-05-01 16:01 | NUR ---
NURSE NOTES: Patient turned and repositioned.HOB elevated to prevent aspiration.Mouth care done, will continue to monitor
--- NOTE | 2019-05-01 16:40 | Surgery Progress Note ---
Surgery Progress Note Subjective Additional Comments no acute events Objective Last 24 Hour Vital Signs Date Time Temp Pulse Resp B/P (MAP) Pulse Ox O2 Delivery O2 Flow Rate FiO2 05/01/19 15:02 73 16 30 05/01/19 14:00 69 16 133/74 (93) 96 05/01/19 13:03 69 16 30 05/01/19 13:00 69 16 148/70 (96) 97 05/01/19 12:00 30 05/01/19 12:00 Mechanical Ventilator 05/01/19 12:00 70 05/01/19 12:00 98.9 81 12 146/77 (100) 94 05/01/19 11:00 63 16 149/69 (95) 97 05/01/19 10:49 68 16 30 05/01/19 10:00 30 05/01/19 10:00 68 16 149/82 (104) 98 05/01/19 09:00 67 16 144/76 (98) 98 05/01/19 08:54 90 16 30 05/01/19 08:00 Mechanical Ventilator 05/01/19 08:00 85 05/01/19 07:15 77 16 30 05/01/19 07:00 79 16 142/81 (101) 96 05/01/19 06:00 83 6 144/77 (99) 96 05/01/19 05:06 92 16 30 05/01/19 05:00 89 16 150/81 (104) 95 05/01/19 04:00 Mechanical Ventilator 05/01/19 04:00 97.2 95 20 147/77 (100) 94 05/01/19 04:00 100 05/01/19 04:00 30 05/01/19 03:00 102 25 150/76 (100) 94 05/01/19 02:50 95 16 30 05/01/19 02:00 85 16 141/71 (94) 96 05/01/19 01:05 94 16 30 05/01/19 01:00 90 16 144/86 (105) 97 05/01/19 00:41 108 05/01/19 00:41 Mechanical Ventilator 05/01/19 00:41 30 05/01/19 00:00 99.2 94 16 144/78 (100) 96 04/30/19 23:00 108 22 159/81 (107) 96 04/30/19 22:50 97 19 30 04/30/19 22:00 92 27 154/79 (104) 100 04/30/19 21:00 79 16 145/77 (99) 100 04/30/19 20:55 85 17 30 04/30/19 20:00 Mechanical Ventilator 04/30/19 20:00 97.7 90 17 139/67 (91) 100 04/30/19 20:00 76 04/30/19 20:00 30 04/30/19 19:06 88 16 30 04/30/19 19:00 85 18 135/69 (91) 100 04/30/19 18:00 107 18 142/68 (92) 100 04/30/19 17:10 89 16 30 04/30/19 17:00 86 18 138/75 (96) 100 I&O Intake and Output 04/30/19 05/01/19 18:59 06:59 Intake Total 820 ml 900 ml Output Total 720 ml 605 ml Balance 100 ml 295 ml Free Water 100 ml 180 ml Tube Feeding 720 ml 720 ml Output Urine Total 720 ml 605 ml # Bowel Movements 2 3 Cardiovascular: RSR Respiratory: decreased breath sounds Abdomen: soft, present bowel sounds, non-distended Extremities: no cyanosis Laboratory Tests Test 05/01/19 04:47 White Blood Count 11.1 K/UL (4.8-10.8) H Red Blood Count 2.89 M/UL (4.20-5.40) L Hemoglobin 8.1 G/DL (12.0-16.0) L Hematocrit 25.8 % (37.0-47.0) L Mean Corpuscular Volume 89 FL (80-99) Mean Corpuscular Hemoglobin 28.0 PG (27.0-31.0) Mean Corpuscular Hemoglobin Concent 31.3 G/DL (32.0-36.0) L Red Cell Distribution Width 15.1 % (11.6-14.8) H Platelet Count 166 K/UL (150-450) Mean Platelet Volume 6.9 FL (6.5-10.1) Neutrophils (%) (Auto) 74.3 % (45.0-75.0) Lymphocytes (%) (Auto) 17.7 % (20.0-45.0) L Monocytes (%) (Auto) 5.4 % (1.0-10.0) Eosinophils (%) (Auto) 2.0 % (0.0-3.0) Basophils (%) (Auto) 0.6 % (0.0-2.0) Sodium Level 147 MMOL/L (136-145) H Potassium Level 5.0 MMOL/L (3.5-5.1) Chloride Level 110 MMOL/L (98-107) H Carbon Dioxide Level 28 MMOL/L (21-32) Anion Gap 9 mmol/L (5-15) Blood Urea Nitrogen 59 mg/dL (7-18) H Creatinine 1.7 MG/DL (0.55-1.30) H Estimat Glomerular Filtration Rate mL/min (>60) Glucose Level 216 MG/DL (74-106) H Calcium Level 8.7 MG/DL (8.5-10.1) Total Bilirubin 0.3 MG/DL (0.2-1.0) Aspartate Amino Transf (AST/SGOT) 31 U/L (15-37) Alanine Aminotransferase (ALT/SGPT) 13 U/L (12-78) Alkaline Phosphatase 111 U/L (46-116) Pro-B-Type Natriuretic Peptide 32972 pg/mL (0-125) H Total Protein 6.7 G/DL (6.4-8.2) Albumin 1.3 G/DL (3.4-5.0) L Globulin 5.4 g/dL Albumin/Globulin Ratio 0.2 (1.0-2.7) L Plan Problems: (1) Respiratory distress Assessment & Plan: has been on vents support for near two weeks cannot wean and does not tolerate weaning trials trach indicated and recommended will obtain consent and schedule (2) Malnutrition (3) UTI (urinary tract infection) (4) Diabetic nephropathy (5) Renal failure (ARF), acute on chronic (6) Anemia in chronic kidney disease (CKD) (7) Pulmonary hypertension (8) Acute respiratory failure (9) Respiratory failure (10) Hypernatremia (11) Sepsis Assessment & Plan: cont with current care trend labs will follow with recs (12) Pneumonia (13) History of CVA (cerebrovascular accident) (14) CAD (coronary artery disease) (15) Right hemiplegia (16) Diabetes mellitus (17) Hypertensive heart disease (18) 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 (19) Nosocomial pneumonia (20) At high risk for aspiration (21) Acute metabolic encephalopathy Devaughn Marin May 01, 2019 16:40
--- NOTE | 2019-05-01 18:05 | NUR ---
NURSE NOTES: Patient turned and repositioned.HOB elevated to prevent aspiration.ADLs and mouth care done.Kept clean and dry.Will continue to monitor
[2019-05-01] MEDS ORDERED: NS 275ml ONE (18:07)
--- NOTE | 2019-05-01 19:17 | NUR ---
HAND-OFF: Report given to HORTENCIA Rodríguez.
--- NOTE | 2019-05-01 19:18 | NUR ---
NURSE NOTES: Received bedside report from HORTENCIA Barnett.Patient stable,nonverbal,trach with setting AC 16 TV 500 FiO2 30% PEEP 5 tolerated well no s/s of pain,no respiratory distress noted,GT running with Glucerna 1.5 @ 60 ml/hr flush 150 ml Q 6hrs,BS active in all quadrants,IV asymptomatic,intact on SUZIE PICC TKO,last dressing changed 04/27/19,bed secured in a low safety position,call light within a reach,will continue to monitor and follow POC.
[2019-05-01] MEDS: Dyna-Hex 2% Top Sol 2oz TOPIC SCH (20:02)
--- NOTE | 2019-05-01 22:13 | NUR ---
NURSE NOTES: Patient stable,no s/s of pain ,no respiratory distress at this moment,patient cleaned,turned and repositioned,SR on property assessment monitor,V/S stable.Picture taken and uploaded.Will continue to follow POC
[2019-05-02] VITALS (25 sets, daily range): BP systolic 117–164; BP diastolic 70–94
--- NOTE | 2019-05-02 00:27 | NUR ---
NURSE NOTES: Pt turned and repositioned,HOB elevated to prevent aspiration,V/S WNL,continue to monitor pt
--- NOTE | 2019-05-02 02:57 | NUR ---
NURSE NOTES: Patient clean and dry,oral care done,V/S WNL,no s/s of distress noted,call light within easy to reach.Will continue to monitor.
--- NOTE | 2019-05-02 05:10 | NUR ---
NURSE NOTES: Patient stable,sleeping,no s/s of pain,PICC line dressing changed and documented,blood draw from PICC line and flushed well.
[2019-05-02] MEDS: NovoLOG Insulin Flexpen SUBQ SCH ×4 (05:41→23:52)
[2019-05-02 06:05] LABS: HEMATOCRIT 24.4 % (37.0-47.0); HEMOGLOBIN 7.6 G/DL (12.0-16.0); MEAN CORPUSCULAR VOLUME 91 FL (80-99); PLATELET COUNT 147 K/UL (150-450); RED BLOOD COUNT 2.68 M/UL (4.20-5.40); WHITE BLOOD COUNT 10.5 K/UL (4.8-10.8)
[2019-05-02 06:08] LABS: INR 1.1 (0.9-1.1)
[2019-05-02 06:31] LABS: ALANINE AMINOTRANSFERASE 13 U/L (12-78); ALBUMIN 1.4 G/DL (3.4-5.0); ALBUMIN/GLOBULIN RATIO 0.3 (1.0-2.7); ALKALINE PHOSPHATASE 114 U/L (46-116); ANION GAP 6 mmol/L (5-15); ASPARTATE AMINO TRANSFERASE 32 U/L (15-37); BILIRUBIN,TOTAL 0.3 MG/DL (0.2-1.0); BLOOD UREA NITROGEN 62 mg/dL (7-18); CALCIUM 8.8 MG/DL (8.5-10.1); CARBON DIOXIDE 30 MMOL/L (21-32); CHLORIDE 111 MMOL/L (98-107); CREATININE 1.7 MG/DL (0.55-1.30); PHOSPHORUS 3.5 MG/DL (2.5-4.9); POTASSIUM 5.4 MMOL/L (3.5-5.1); SODIUM 147 MMOL/L (136-145)
--- NOTE | 2019-05-02 06:46 | NUR ---
RESPIRATORY NOTE: Received pt on [id number]%FiO2- peep 5, saturates at 97%. Pt is orally intubated with ETT 7.5 @23cm lips line, secured with tape due to open wounds on both cheeks, wounds are covered by gauzes.Bite block in place to prevent tube biting. Gus rhonchi B/S, suctioned small amt of thick frothy marin white secretions without incidents. pt is resting comfortably in bed, no SOB or no resp distress noted at this time. Alarms are set and audible, vent is plugged into the red outlet, ambu bag is at bedside. Vent circuits and sxn tubing are patent, secured and out of the way. Will continue to monitor pt.
--- NOTE | 2019-05-02 07:00 | NUR ---
NURSE NOTES: Hydralizine 0.5 ML given,B/P 171/94
--- NOTE | 2019-05-02 07:06 | Pulmonolgy Critical Care Note ---
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 (7) Hypertensive heart disease (8) Right hemiplegia (9) History of CVA (cerebrovascular accident) (10) CAD (coronary artery disease) Respiratory: monitor respiratory rate, adjust FIO2, CXR Cardiac: continue to monitor HR/BP Renal: F/U I&O, keep IV fluid Infectious Disease: check cultures Gastrointestinal: continue feedings/current rate Endocrine: monitor blood sugar, check HgA1C Hematologic: transfuse if hgb<8.5 Neurologic: PRN Ativan, keep patient comfortable Affect: PRN ativan Prophylaxis: Protonix Disposition: keep in ICU Notes Reviewed: vegetable picker, cardio Discussed with: nurses, consultants, field nurse case managerchannel program manager - Objective Last 24 Hour Vital Signs Date Time Temp Pulse Resp B/P (MAP) Pulse Ox O2 Delivery O2 Flow Rate FiO2 05/02/19 07:00 171/89 05/02/19 06:46 83 16 30 05/02/19 06:46 83 16 97 Mechanical Ventilator 30 05/02/19 06:00 98 16 160/88 (112) 97 05/02/19 05:15 74 16 30 05/02/19 05:00 81 18 158/87 (110) 96 05/02/19 04:00 30 05/02/19 04:00 Mechanical Ventilator 05/02/19 04:00 82 12 157/88 (111) 97 05/02/19 03:14 78 16 30 05/02/19 03:06 78 05/02/19 03:00 79 12 143/70 (94) 97 05/02/19 02:00 84 14 135/70 (91) 99 05/02/19 01:16 76 16 30 05/02/19 01:00 78 15 135/75 (95) 97 05/02/19 00:00 30 05/02/19 00:00 Mechanical Ventilator 05/02/19 00:00 97.9 67 12 145/72 (96) 97 05/01/19 23:40 77 05/01/19 23:19 73 16 30 05/01/19 23:00 77 18 140/78 (98) 99 7/6/19 22:00 80 15 150/79 (102) 98 05/01/19 21:06 75 16 30 05/01/19 21:00 70 16 148/83 (104) 99 05/01/19 20:00 Mechanical Ventilator 05/01/19 20:00 84 16 148/74 (98) 98 05/01/19 20:00 30 05/01/19 19:28 84 05/01/19 19:00 99 19 161/96 (117) 100 05/01/19 18:58 97 17 30 05/01/19 18:00 99 19 155/94 (114) 93 05/01/19 17:29 124 24 30 05/01/19 17:00 98.8 79 21 162/85 (110) 95 05/01/19 16:00 Mechanical Ventilator 05/01/19 16:00 30 05/01/19 16:00 75 13 144/78 (100) 95 05/01/19 16:00 86 05/01/19 15:02 73 16 30 05/01/19 15:00 82 16 163/78 (106) 96 05/01/19 14:00 69 16 133/74 (93) 96 05/01/19 13:03 69 16 30 05/01/19 13:00 69 16 148/70 (96) 97 05/01/19 12:00 30 05/01/19 12:00 Mechanical Ventilator 05/01/19 12:00 70 05/01/19 12:00 98.9 81 12 146/77 (100) 94 05/01/19 11:00 63 16 149/69 (95) 97 05/01/19 10:49 68 16 30 05/01/19 10:00 30 05/01/19 10:00 68 16 149/82 (104) 98 05/01/19 09:00 67 16 144/76 (98) 98 05/01/19 08:54 90 16 30 05/01/19 08:00 Mechanical Ventilator 05/01/19 08:00 85 05/01/19 07:15 77 16 30 Status: awake Condition: critical HEENT: atraumatic, normocephalic Neck: full ROM Lungs: chest wall tender Heart: HR/BP stable Abdomen: soft, non-tender Extremities: no C/C/E Accucheck: 194 Critical Care - Subjective ROS Limited/Unobtainable: Yes Condition: critical EKG Rhythm: Sinus Rhythm FI02: 30 Vent Support Breath Rate: 16 Vent Support Mode: AC Vent Tidal Volume: 500 Sputum Amount: Small PEEP: 5.0 PIP: 33 Tube Feeding Amount: 60 I&O: Intake and Output 05/01/19 05/02/19 19:00 07:00 Intake Total 780 ml 660 ml Output Total 375 ml 400 ml Balance 405 ml 260 ml Free Water 60 ml Tube Feeding 720 ml 660 ml Output Urine Total 375 ml 400 ml # Bowel Movements 4 2 ET-Tube: 7.5 ET Position: 23 Labs: Laboratory Tests Test 05/02/19 04:00 White Blood Count 10.5 K/UL (4.8-10.8) Red Blood Count 2.68 M/UL (4.20-5.40) L Hemoglobin 7.6 G/DL (12.0-16.0) L Hematocrit 24.4 % (37.0-47.0) L Mean Corpuscular Volume 91 FL (80-99) Mean Corpuscular Hemoglobin 28.3 PG (27.0-31.0) Mean Corpuscular Hemoglobin Concent 31.1 G/DL (32.0-36.0) L Red Cell Distribution Width 16.0 % (11.6-14.8) H Platelet Count 147 K/UL (150-450) L Mean Platelet Volume 6.9 FL (6.5-10.1) Neutrophils (%) (Auto) % (45.0-75.0) Lymphocytes (%) (Auto) % (20.0-45.0) Monocytes (%) (Auto) % (1.0-10.0) Eosinophils (%) (Auto) % (0.0-3.0) Basophils (%) (Auto) % (0.0-2.0) Neutrophils % (Manual) Pending Lymphocytes % (Manual) Pending Platelet Estimate Pending Platelet Morphology Pending Prothrombin Time 11.3 SEC (9.30-11.50) Prothromb Time International Ratio 1.1 (0.9-1.1) Activated Partial Thromboplast Time 32 SEC (23-33) Sodium Level 147 MMOL/L (136-145) H Potassium Level 5.4 MMOL/L (3.5-5.1) H Chloride Level 111 MMOL/L (98-107) H Carbon Dioxide Level 30 MMOL/L (21-32) Anion Gap 6 mmol/L (5-15) Blood Urea Nitrogen 62 mg/dL (7-18) H Creatinine 1.7 MG/DL (0.55-1.30) H Estimat Glomerular Filtration Rate mL/min (>60) Glucose Level 184 MG/DL (74-106) H Uric Acid 4.6 MG/DL (2.6-7.2) Calcium Level 8.8 MG/DL (8.5-10.1) Phosphorus Level 3.5 MG/DL (2.5-4.9) Magnesium Level 2.1 MG/DL (1.8-2.4) Total Bilirubin 0.3 MG/DL (0.2-1.0) Aspartate Amino Transf (AST/SGOT) 32 U/L (15-37) Alanine Aminotransferase (ALT/SGPT) 13 U/L (12-78) Alkaline Phosphatase 114 U/L (46-116) C-Reactive Protein, Quantitative 16.5 mg/dL (0.00-0.90) H Pro-B-Type Natriuretic Peptide 33591 pg/mL (0-125) H Total Protein 6.7 G/DL (6.4-8.2) Albumin 1.4 G/DL (3.4-5.0) L Globulin 5.3 g/dL Albumin/Globulin Ratio 0.3 (1.0-2.7) L Tony Springer MD May 02, 2019 07:06
--- NOTE | 2019-05-02 07:19 | NUR ---
HAND-OFF: Report given to HORTENCIA Pierre.Patient stable,B/P does down 139/74.
--- NOTE | 2019-05-02 07:20 | NUR ---
NURSE NOTES: Received change of shift report from Anne BURNETT. Pt is awake, alert, orally intubated, follows with eyes. Left soft wrist restraint in place to prevent pt from reaching/pulling ET tube; pt has right sided weakness. gambling monitor displays ST with heart rate fluctuating from 100-110. Generalized edema noted, and pitting edema on upper extremities, with weak peripheral pulses. ETT 7.5 at 23cm at left lipline, vent settings AC16, VT500, Peep 5.0, FIO2 30% with O2Sat now at 96%. Bilateral inspiratory/expiratory rhonchi/rales present. GT in place with feeding Glucerna 1.2 infusing at a goal rate of 60ml/hour. GT site dressing in place, dry/intact. Pt is tolerating feeding well with no residual. Abdomen is large, round, soft/nontender to touch, with hypoactive bowel sounds. Fraga catheter is in place, draining mildly cloudy/yellow urine. Pt has central line IV access right UA double-lumen PICC, currently TKO. Skin has sacral mild erythema/skin discoloration covered with optifoam dressing. Pt is on P200 pressure release mattress with bilateral extremities elevated on pillows, and SCDs on lower extremities for DVT prophylaxis. Head of bed at 30 degrees, bed locked, three side rails up, call light within reach. Will continue to monitor pt and follow plan of care per MD orders and protocol.
--- NOTE | 2019-05-02 08:00 | NUR ---
NURSE NOTES: Order noted for 1 unit PRBC to be transfused for Hgb 7.6. Blood bank aware. Copy of consent with blood bank from recent previous blood transfusion. Waiting for blood supply from blood bank.
[2019-05-02] MEDS: Midodrine 10mg tab NG SCH (08:18)
--- NOTE | 2019-05-02 09:00 | NUR ---
NURSE NOTES: Oral care done, pt suctioned, with moderate output of clear secretions. Pt was repositioned with bilateral extremities elevated on pillows. Heart rate in the 100's-110. Pt was administered Hydralazine 10mg IVP by material handler 1st shift nurse for SBP greater than 170. VS being closely monitored.
--- NOTE | 2019-05-02 10:30 | NUR ---
NURSE NOTES: Pt was seen by Fouladian. SERNA aware of K level from this AM's blood draw resulted 5.4. Per new order, K level was redrawn and sent to lab at 1000. No additional orders. Addendum: 05/02/19 at 1143 by APRIL CARMONA RN New K level resulted 5.6. Spoke with Dr Spivey over the phone and reported new result. No new orders at this time.
--- NOTE | 2019-05-02 10:46 | General Progress Note ---
Assessment/Plan Problem List: (1) Acute metabolic encephalopathy ICD Codes: G93.41 - Metabolic encephalopathy SNOMED: 33425557, 378420039 (2) 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 ICD Codes: E11.22 - Type 2 diabetes mellitus with diabetic chronic kidney disease; N18.4 - Chronic kidney disease, stage 4 (severe) SNOMED: 55094828, 989368586, 052887956 (3) Diabetes mellitus ICD Codes: E11.9 - Type 2 diabetes mellitus without complications SNOMED: 95185477 (4) CAD (coronary artery disease) ICD Codes: I25.10 - Atherosclerotic heart disease of [place] coronary artery without angina pectoris SNOMED: 06959319 (5) History of CVA (cerebrovascular accident) ICD Codes: Z86.73 - Personal history of transient ischemic attack (TIA), and cerebral infarction without residual deficits SNOMED: 946852197 (6) Anemia in chronic kidney disease (CKD) ICD Codes: N18.9 - Chronic kidney disease, unspecified; D63.1 - Anemia in chronic kidney disease SNOMED: 700747101 (7) Diabetic nephropathy ICD Codes: E11.21 - Type 2 diabetes mellitus with diabetic nephropathy SNOMED: 193951142 Status: unchanged Assessment/Plan: intubated GTF fu labs fu pulm recs prn blood transfusion>> one unit today pending trach tomorrow ppi Subjective ROS Limited/Unobtainable: No Allergies: Coded Allergies: No Known Allergies (Unverified , 04/12/19) Objective Last 24 Hour Vital Signs Date Time Temp Pulse Resp B/P (MAP) Pulse Ox O2 Delivery O2 Flow Rate FiO2 05/02/19 10:00 104 21 128/74 (92) 96 05/02/19 09:00 111 22 117/71 (86) 94 05/02/19 08:44 115 25 30 05/02/19 08:00 30 05/02/19 08:00 Mechanical Ventilator 05/02/19 08:00 98.9 116 25 130/79 (96) 95 05/02/19 08:00 124 05/02/19 07:00 115 26 139/74 (95) 97 05/02/19 07:00 171/89 05/02/19 06:46 83 16 30 05/02/19 06:46 83 16 97 Mechanical Ventilator 30 05/02/19 06:00 98 16 160/88 (112) 97 05/02/19 05:15 74 16 30 05/02/19 05:00 81 18 158/87 (110) 96 05/02/19 04:00 30 05/02/19 04:00 Mechanical Ventilator 05/02/19 04:00 82 12 157/88 (111) 97 05/02/19 03:14 78 16 30 05/02/19 03:06 78 05/02/19 03:00 79 12 143/70 (94) 97 05/02/19 02:00 84 14 135/70 (91) 99 05/02/19 01:16 76 16 30 05/02/19 01:00 78 15 135/75 (95) 97 05/02/19 00:00 30 05/02/19 00:00 Mechanical Ventilator 05/02/19 00:00 97.9 67 12 145/72 (96) 97 05/01/19 23:40 77 05/01/19 23:19 73 16 30 05/01/19 23:00 77 18 140/78 (98) 99 05/01/19 22:00 80 15 150/79 (102) 98 05/01/19 21:06 75 16 30 05/01/19 21:00 70 16 148/83 (104) 99 05/01/19 20:00 Mechanical Ventilator 05/01/19 20:00 84 16 148/74 (98) 98 05/01/19 20:00 30 05/01/19 19:28 84 05/01/19 19:00 99 19 161/96 (117) 100 05/01/19 18:58 97 17 30 05/01/19 18:00 99 19 155/94 (114) 93 05/01/19 17:29 124 24 30 05/01/19 17:00 98.8 79 21 162/85 (110) 95 05/01/19 16:00 Mechanical Ventilator 05/01/19 16:00 30 05/01/19 16:00 75 13 144/78 (100) 95 05/01/19 16:00 86 05/01/19 15:02 73 16 30 05/01/19 15:00 82 16 163/78 (106) 96 05/01/19 14:00 69 16 133/74 (93) 96 05/01/19 13:03 69 16 30 05/01/19 13:00 69 16 148/70 (96) 97 05/01/19 12:00 30 05/01/19 12:00 Mechanical Ventilator 05/01/19 12:00 70 05/01/19 12:00 98.9 81 12 146/77 (100) 94 05/01/19 11:00 63 16 149/69 (95) 97 05/01/19 10:49 68 16 30 Intake and Output 05/01/19 05/02/19 19:00 07:00 Intake Total 780 ml 720 ml Output Total 375 ml 440 ml Balance 405 ml 280 ml Free Water 60 ml Tube Feeding 720 ml 720 ml Output Urine Total 375 ml 440 ml # Bowel Movements 4 2 Laboratory Tests 05/02/19 04:00: White Blood Count 10.5, Red Blood Count 2.68L, Hemoglobin 7.6L, Hematocrit 24.4L , Mean Corpuscular Volume 91, Mean Corpuscular Hemoglobin 28.3, Mean Corpuscular Hemoglobin Concent 31.1L, Red Cell Distribution Width 16.0H, Platelet Count 147L, Mean Platelet Volume 6.9, Neutrophils (%) (Auto) , Lymphocytes (%) (Auto) , Monocytes (%) (Auto) , Eosinophils (%) (Auto) , Basophils (%) (Auto) , Differential Total Cells Counted 100, Neutrophils % ( Manual) 72, Lymphocytes % (Manual) 20, Monocytes % (Manual) 6, Eosinophils % ( Manual) 2, Basophils % (Manual) 0, Band Neutrophils 0, Platelet Estimate Adequate, Platelet Morphology Normal, Polychromasia 1+, Hypochromasia 1+, Anisocytosis 1+, Prothrombin Time 11.3, Prothromb Time International Ratio 1.1, Activated Partial Thromboplast Time 32, Sodium Level 147H, Potassium Level 5.4H , Chloride Level 111H, Carbon Dioxide Level 30, Anion Gap 6, Blood Urea Nitrogen 62H, Creatinine 1.7H, Estimat Glomerular Filtration Rate , Glucose Level 184H, Uric Acid 4.6, Calcium Level 8.8, Phosphorus Level 3.5, Magnesium Level 2.1, Total Bilirubin 0.3, Aspartate Amino Transf (AST/SGOT) 32, Alanine Aminotransferase (ALT/SGPT) 13, Alkaline Phosphatase 114, C-Reactive Protein, Quantitative 16.5H, Pro-B-Type Natriuretic Peptide 98843A, Total Protein 6.7, Albumin 1.4L, Globulin 5.3, Albumin/Globulin Ratio 0.3L 05/02/19 09:55: Potassium Level 5.6H Height (Feet): 5 Height (Inches): 7.00 Weight (Pounds): 189 General Appearance: lethargic EENT: normal ENT inspection Neck: supple Cardiovascular: normal rate Respiratory/Chest: decreased breath sounds Abdomen: normal bowel sounds, non tender, soft Extremities: non-tender Darron Gentile MD May 02, 2019 10:46
[2019-05-02] MEDS ORDERED: Sodium Polystyrene Sulfonate 15gm Powder NG SCH (11:45)
--- NOTE | 2019-05-02 11:55 | Nephrology Progress Note ---
Assessment/Plan Problem List: (1) Renal failure (ARF), acute on chronic (2) Diabetic nephropathy (3) Sepsis (4) Pneumonia (5) Right hemiplegia (6) Anemia in chronic kidney disease (CKD) (7) Pulmonary hypertension Assessment intubated- Renal failure; - Pre Renal - ? Underlying Renal Anemia Pneumonia / respiratory failure Sepsis elevated Troponin UTI HyperGlycemia / DM Right Esvin HTN Plan due trach 05/03 kayexelate as needed Albumin and lasix one time discussed with RN transfuse for low Hgb as needed K Phos IV as needed venofer Folate 24 H urine protein check 2.4 gram Fraga Hydrate BP and BS control urine studies slow hydrate kidney MAIKEL results noted: No [place] 2D echo Noted visualized except distal setum and inferiro wall hypokinesis Left ventricular ejection fraction estimated to be 55-60 %. avoid Nephrotoxics per orders Subjective ROS Limited/Unobtainable: Yes Objective Objective Last 24 Hour Vital Signs Date Time Temp Pulse Resp B/P (MAP) Pulse Ox O2 Delivery O2 Flow Rate FiO2 05/02/19 11:00 112 20 30 05/02/19 11:00 109 18 137/85 (102) 100 05/02/19 10:00 104 21 128/74 (92) 96 05/02/19 09:00 111 22 117/71 (86) 94 05/02/19 08:44 115 25 30 05/02/19 08:00 30 05/02/19 08:00 Mechanical Ventilator 05/02/19 08:00 98.9 116 25 130/79 (96) 95 05/02/19 08:00 124 05/02/19 07:00 115 26 139/74 (95) 97 05/02/19 07:00 171/89 05/02/19 06:46 83 16 30 05/02/19 06:46 83 16 97 Mechanical Ventilator 30 05/02/19 06:00 98 16 160/88 (112) 97 05/02/19 05:15 74 16 30 05/02/19 05:00 81 18 158/87 (110) 96 05/02/19 04:00 30 05/02/19 04:00 Mechanical Ventilator 05/02/19 04:00 82 12 157/88 (111) 97 05/02/19 03:14 78 16 30 05/02/19 03:06 78 05/02/19 03:00 79 12 143/70 (94) 97 05/02/19 02:00 84 14 135/70 (91) 99 05/02/19 01:16 76 16 30 05/02/19 01:00 78 15 135/75 (95) 97 05/02/19 00:00 30 05/02/19 00:00 Mechanical Ventilator 05/02/19 00:00 97.9 67 12 145/72 (96) 97 05/01/19 23:40 77 05/01/19 23:19 73 16 30 05/01/19 23:00 77 18 140/78 (98) 99 05/01/19 22:00 80 15 150/79 (102) 98 05/01/19 21:06 75 16 30 05/01/19 21:00 70 16 148/83 (104) 99 05/01/19 20:00 Mechanical Ventilator 05/01/19 20:00 84 16 148/74 (98) 98 05/01/19 20:00 30 05/01/19 19:28 84 05/01/19 19:00 99 19 161/96 (117) 100 05/01/19 18:58 97 17 30 05/01/19 18:00 99 19 155/94 (114) 93 05/01/19 17:29 124 24 30 05/01/19 17:00 98.8 79 21 162/85 (110) 95 05/01/19 16:00 Mechanical Ventilator 05/01/19 16:00 30 05/01/19 16:00 75 13 144/78 (100) 95 05/01/19 16:00 86 05/01/19 15:02 73 16 30 05/01/19 15:00 82 16 163/78 (106) 96 05/01/19 14:00 69 16 133/74 (93) 96 05/01/19 13:03 69 16 30 05/01/19 13:00 69 16 148/70 (96) 97 05/01/19 12:00 30 05/01/19 12:00 Mechanical Ventilator 05/01/19 12:00 70 05/01/19 12:00 98.9 81 12 146/77 (100) 94 Intake and Output 05/01/19 05/02/19 18:59 06:59 Intake Total 780 ml 720 ml Output Total 375 ml 430 ml Balance 405 ml 290 ml Free Water 60 ml Tube Feeding 720 ml 720 ml Output Urine Total 375 ml 430 ml # Bowel Movements 5 2 Laboratory Tests 05/02/19 04:00: White Blood Count 10.5, Red Blood Count 2.68L, Hemoglobin 7.6L, Hematocrit 24.4L , Mean Corpuscular Volume 91, Mean Corpuscular Hemoglobin 28.3, Mean Corpuscular Hemoglobin Concent 31.1L, Red Cell Distribution Width 16.0H, Platelet Count 147L, Mean Platelet Volume 6.9, Neutrophils (%) (Auto) , Lymphocytes (%) (Auto) , Monocytes (%) (Auto) , Eosinophils (%) (Auto) , Basophils (%) (Auto) , Differential Total Cells Counted 100, Neutrophils % ( Manual) 72, Lymphocytes % (Manual) 20, Monocytes % (Manual) 6, Eosinophils % ( Manual) 2, Basophils % (Manual) 0, Band Neutrophils 0, Platelet Estimate Adequate, Platelet Morphology Normal, Polychromasia 1+, Hypochromasia 1+, Anisocytosis 1+, Prothrombin Time 11.3, Prothromb Time International Ratio 1.1, Activated Partial Thromboplast Time 32, Sodium Level 147H, Potassium Level 5.4H , Chloride Level 111H, Carbon Dioxide Level 30, Anion Gap 6, Blood Urea Nitrogen 62H, Creatinine 1.7H, Estimat Glomerular Filtration Rate , Glucose Level 184H, Uric Acid 4.6, Calcium Level 8.8, Phosphorus Level 3.5, Magnesium Level 2.1, Total Bilirubin 0.3, Aspartate Amino Transf (AST/SGOT) 32, Alanine Aminotransferase (ALT/SGPT) 13, Alkaline Phosphatase 114, C-Reactive Protein, Quantitative 16.5H, Pro-B-Type Natriuretic Peptide 43445Q, Total Protein 6.7, Albumin 1.4L, Globulin 5.3, Albumin/Globulin Ratio 0.3L 05/02/19 09:55: Potassium Level 5.6H Height (Feet): 5 Height (Inches): 7.00 Weight (Pounds): 189 General Appearance: no apparent distress EENT: other - VENTED Cardiovascular: tachycardia Respiratory/Chest: decreased breath sounds Abdomen: soft Objective no change Wally Spivey MD May 02, 2019 11:55
[2019-05-02] MEDS ORDERED: Midodrine 10mg tab NG PRN (12:00)
--- NOTE | 2019-05-02 12:00 | NUR ---
NURSE NOTES: Pt is resting with head of bed at 30 degrees. Pt is tolerating GT-feeding Glucerna 1.2 at goal rate of 60ml/hr with no residual. Fraga continues to drain clear/yellow urine with hourly output of 30-40ml. Left UA PICC patent/intact, TKO. Vent settings maintained at AC16, VT500, Peep 5, FIO2 30% with O2sat fluctuating from 92-97%. alarm security or surveillance monitor displays SR to ST with heart rate from upper 80's to 108. Oral care done. Pt repositioned.
--- NOTE | 2019-05-02 12:50 | NUR ---
NURSE NOTES: Kayexalate 30gm GT x1, Albuminar 500ml wide open IV, and Lasix 20mg IVP administered as ordered for K level of 5.6.
[2019-05-02] MEDS ORDERED: NS 275ml ONE ×3 (13:32→15:08)
--- NOTE | 2019-05-02 13:41 | General Progress Note ---
Assessment/Plan Problem List: (1) Respiratory distress ICD Codes: R06.03 - Acute respiratory distress SNOMED: 145634637 (2) UTI (urinary tract infection) ICD Codes: N39.0 - Urinary tract infection, site not specified SNOMED: 87482641 (3) Diabetic nephropathy ICD Codes: E11.21 - Type 2 diabetes mellitus with diabetic nephropathy SNOMED: 098808352 (4) Renal failure (ARF), acute on chronic ICD Codes: N17.9 - Acute kidney failure, unspecified; N18.9 - Chronic kidney disease, unspecified SNOMED: 519017287 (5) Anemia in chronic kidney disease (CKD) ICD Codes: N18.9 - Chronic kidney disease, unspecified; D63.1 - Anemia in chronic kidney disease SNOMED: 029687284 (6) Pulmonary hypertension ICD Codes: I27.20 - Pulmonary hypertension, unspecified SNOMED: 75411690 (7) Acute respiratory failure ICD Codes: J96.00 - Acute respiratory failure, unspecified whether with hypoxia or hypercapnia SNOMED: 58663687 (8) Sepsis ICD Codes: A41.9 - Sepsis, unspecified organism SNOMED: 57719783 (9) Pneumonia ICD Codes: J18.9 - Pneumonia, unspecified organism SNOMED: 295697133 Qualifiers: Qualified Codes: J18.9 - Pneumonia, unspecified organism (10) History of CVA (cerebrovascular accident) ICD Codes: Z86.73 - Personal history of transient ischemic attack (TIA), and cerebral infarction without residual deficits SNOMED: 345953653 (11) CAD (coronary artery disease) ICD Codes: I25.10 - Atherosclerotic heart disease of [place] coronary artery without angina pectoris SNOMED: 29724833 (12) Diabetes mellitus ICD Codes: E11.9 - Type 2 diabetes mellitus without complications SNOMED: 52135892 (13) Hypertensive heart disease ICD Codes: I11.9 - Hypertensive heart disease without heart failure SNOMED: 75266247 (14) Nosocomial pneumonia ICD Codes: J18.9 - Pneumonia, unspecified organism; Y95 - Nosocomial condition SNOMED: 059526264 (15) Acute metabolic encephalopathy ICD Codes: G93.41 - Metabolic encephalopathy SNOMED: 14351273, 563058972 Status: unchanged Assessment/Plan: resp insuff htn niddm wound afebrile reviewed chart and labs no wheezing not hypoxic Subjective ROS Limited/Unobtainable: Yes Allergies: Coded Allergies: No Known Allergies (Unverified , 04/12/19) Objective Last 24 Hour Vital Signs Date Time Temp Pulse Resp B/P (MAP) Pulse Ox O2 Delivery O2 Flow Rate FiO2 05/02/19 13:00 83 23 127/81 (96) 97 05/02/19 12:42 71 17 30 05/02/19 12:00 Mechanical Ventilator 05/02/19 12:00 30 05/02/19 12:00 104 05/02/19 12:00 99.1 100 15 134/78 (96) 97 05/02/19 11:00 112 20 30 05/02/19 11:00 109 18 137/85 (102) 100 05/02/19 10:00 104 21 128/74 (92) 96 05/02/19 09:00 111 22 117/71 (86) 94 05/02/19 08:44 115 25 30 05/02/19 08:00 30 05/02/19 08:00 Mechanical Ventilator 05/02/19 08:00 98.9 116 25 130/79 (96) 95 05/02/19 08:00 124 05/02/19 07:00 115 26 139/74 (95) 97 05/02/19 07:00 171/89 05/02/19 06:46 83 16 30 05/02/19 06:46 83 16 97 Mechanical Ventilator 30 05/02/19 06:00 98 16 160/88 (112) 97 05/02/19 05:15 74 16 30 05/02/19 05:00 81 18 158/87 (110) 96 05/02/19 04:00 30 05/02/19 04:00 Mechanical Ventilator 05/02/19 04:00 82 12 157/88 (111) 97 05/02/19 03:14 78 16 30 05/02/19 03:06 78 05/02/19 03:00 79 12 143/70 (94) 97 05/02/19 02:00 84 14 135/70 (91) 99 05/02/19 01:16 76 16 30 05/02/19 01:00 78 15 135/75 (95) 97 05/02/19 00:00 30 05/02/19 00:00 Mechanical Ventilator 05/02/19 00:00 97.9 67 12 145/72 (96) 97 05/01/19 23:40 77 05/01/19 23:19 73 16 30 05/01/19 23:00 77 18 140/78 (98) 99 05/01/19 22:00 80 15 150/79 (102) 98 05/01/19 21:06 75 16 30 05/01/19 21:00 70 16 148/83 (104) 99 05/01/19 20:00 Mechanical Ventilator 05/01/19 20:00 84 16 148/74 (98) 98 05/01/19 20:00 30 05/01/19 19:28 84 05/01/19 19:00 99 19 161/96 (117) 100 05/01/19 18:58 97 17 30 05/01/19 18:00 99 19 155/94 (114) 93 05/01/19 17:29 124 24 30 05/01/19 17:00 98.8 79 21 162/85 (110) 95 05/01/19 16:00 Mechanical Ventilator 05/01/19 16:00 30 05/01/19 16:00 75 13 144/78 (100) 95 05/01/19 16:00 86 05/01/19 15:02 73 16 30 05/01/19 15:00 82 16 163/78 (106) 96 05/01/19 14:00 69 16 133/74 (93) 96 Intake and Output 05/01/19 05/02/19 18:59 06:59 Intake Total 780 ml 720 ml Output Total 375 ml 430 ml Balance 405 ml 290 ml Free Water 60 ml Tube Feeding 720 ml 720 ml Output Urine Total 375 ml 430 ml # Bowel Movements 5 2 Laboratory Tests 05/02/19 04:00: White Blood Count 10.5, Red Blood Count 2.68L, Hemoglobin 7.6L, Hematocrit 24.4L , Mean Corpuscular Volume 91, Mean Corpuscular Hemoglobin 28.3, Mean Corpuscular Hemoglobin Concent 31.1L, Red Cell Distribution Width 16.0H, Platelet Count 147L, Mean Platelet Volume 6.9, Neutrophils (%) (Auto) , Lymphocytes (%) (Auto) , Monocytes (%) (Auto) , Eosinophils (%) (Auto) , Basophils (%) (Auto) , Differential Total Cells Counted 100, Neutrophils % ( Manual) 72, Lymphocytes % (Manual) 20, Monocytes % (Manual) 6, Eosinophils % ( Manual) 2, Basophils % (Manual) 0, Band Neutrophils 0, Platelet Estimate Adequate, Platelet Morphology Normal, Polychromasia 1+, Hypochromasia 1+, Anisocytosis 1+, Prothrombin Time 11.3, Prothromb Time International Ratio 1.1, Activated Partial Thromboplast Time 32, Sodium Level 147H, Potassium Level 5.4H , Chloride Level 111H, Carbon Dioxide Level 30, Anion Gap 6, Blood Urea Nitrogen 62H, Creatinine 1.7H, Estimat Glomerular Filtration Rate , Glucose Level 184H, Uric Acid 4.6, Calcium Level 8.8, Phosphorus Level 3.5, Magnesium Level 2.1, Total Bilirubin 0.3, Aspartate Amino Transf (AST/SGOT) 32, Alanine Aminotransferase (ALT/SGPT) 13, Alkaline Phosphatase 114, C-Reactive Protein, Quantitative 16.5H, Pro-B-Type Natriuretic Peptide 82466A, Total Protein 6.7, Albumin 1.4L, Globulin 5.3, Albumin/Globulin Ratio 0.3L 05/02/19 09:55: Potassium Level 5.6H Height (Feet): 5 Height (Inches): 7.00 Weight (Pounds): 189 Cardiovascular: normal rate Respiratory/Chest: chest wall non-tender Abdomen: soft Glendy Taylor MD May 02, 2019 13:41
--- NOTE | 2019-05-02 14:00 | NUR ---
NURSE NOTES: Pt was seen by Dr Pena. Order received to change parameters for PRN Hydralazine IV to be administered when SBP >170. No additional orders. Will process and follow.
--- NOTE | 2019-05-02 14:28 | Cardiac Electrophysiology PN ---
Assessment/Plan Assessment/Plan 1. Atrial flutter, self terminated. Off AVN jose for low BP 2. Hypotension. DC Midodrine as now hypertensive and got Hydralazine for it. 3. Coronary artery disease. On Plavix 75 mg daily 4. Respiratory failure, intubated EF 60%. Tracheostomy pending Friday. 5. Sepsis. White count 25,000. On IV abx 6. Anemia.S/P PRBC. Getting another unit today 7. Renal failure BUN/Cr improved with hydration by Dr. Spivey Got Lasix and albumin and Kayexalate for high K today 8. Dysphagia. S/P PEG 04/22/19 9. History of CVA with hemiplegia. 10. Nonverbal status. 11. Full code DW RN Subjective Subjective Intubated in ICU. Tracheostomy pending tomorrow. BP was high and got Hydralazine iv. Objective Last 24 Hour Vital Signs Date Time Temp Pulse Resp B/P (MAP) Pulse Ox O2 Delivery O2 Flow Rate FiO2 05/02/19 13:00 83 23 127/81 (96) 97 05/02/19 12:42 71 17 30 05/02/19 12:00 Mechanical Ventilator 05/02/19 12:00 30 05/02/19 12:00 104 05/02/19 12:00 99.1 100 15 134/78 (96) 97 05/02/19 11:00 112 20 30 05/02/19 11:00 109 18 137/85 (102) 100 05/02/19 10:00 104 21 128/74 (92) 96 05/02/19 09:00 111 22 117/71 (86) 94 05/02/19 08:44 115 25 30 05/02/19 08:00 30 05/02/19 08:00 Mechanical Ventilator 05/02/19 08:00 98.9 116 25 130/79 (96) 95 05/02/19 08:00 124 05/02/19 07:00 115 26 139/74 (95) 97 05/02/19 07:00 171/89 05/02/19 06:46 83 16 30 05/02/19 06:46 83 16 97 Mechanical Ventilator 30 05/02/19 06:00 98 16 160/88 (112) 97 05/02/19 05:15 74 16 30 05/02/19 05:00 81 18 158/87 (110) 96 05/02/19 04:00 30 05/02/19 04:00 Mechanical Ventilator 05/02/19 04:00 82 12 157/88 (111) 97 05/02/19 03:14 78 16 30 05/02/19 03:06 78 05/02/19 03:00 79 12 143/70 (94) 97 05/02/19 02:00 84 14 135/70 (91) 99 05/02/19 01:16 76 16 30 05/02/19 01:00 78 15 135/75 (95) 97 05/02/19 00:00 30 05/02/19 00:00 Mechanical Ventilator 05/02/19 00:00 97.9 67 12 145/72 (96) 97 05/01/19 23:40 77 05/01/19 23:19 73 16 30 05/01/19 23:00 77 18 140/78 (98) 99 05/01/19 22:00 80 15 150/79 (102) 98 05/01/19 21:06 75 16 30 05/01/19 21:00 70 16 148/83 (104) 99 05/01/19 20:00 Mechanical Ventilator 05/01/19 20:00 84 16 148/74 (98) 98 05/01/19 20:00 30 05/01/19 19:28 84 05/01/19 19:00 99 19 161/96 (117) 100 05/01/19 18:58 97 17 30 05/01/19 18:00 99 19 155/94 (114) 93 05/01/19 17:29 124 24 30 05/01/19 17:00 98.8 79 21 162/85 (110) 95 05/01/19 16:00 Mechanical Ventilator 05/01/19 16:00 30 05/01/19 16:00 75 13 144/78 (100) 95 05/01/19 16:00 86 05/01/19 15:02 73 16 30 05/01/19 15:00 82 16 163/78 (106) 96 Intake and Output 05/01/19 05/02/19 19:00 07:00 Intake Total 780 ml 720 ml Output Total 375 ml 440 ml Balance 405 ml 280 ml Free Water 60 ml Tube Feeding 720 ml 720 ml Output Urine Total 375 ml 440 ml # Bowel Movements 4 2 Laboratory Tests Test 05/02/19 04:00 05/02/19 09:55 White Blood Count 10.5 K/UL (4.8-10.8) Red Blood Count 2.68 M/UL (4.20-5.40) L Hemoglobin 7.6 G/DL (12.0-16.0) L Hematocrit 24.4 % (37.0-47.0) L Mean Corpuscular Volume 91 FL (80-99) Mean Corpuscular Hemoglobin 28.3 PG (27.0-31.0) Mean Corpuscular Hemoglobin Concent 31.1 G/DL (32.0-36.0) L Red Cell Distribution Width 16.0 % (11.6-14.8) H Platelet Count 147 K/UL (150-450) L Mean Platelet Volume 6.9 FL (6.5-10.1) Neutrophils (%) (Auto) % (45.0-75.0) Lymphocytes (%) (Auto) % (20.0-45.0) Monocytes (%) (Auto) % (1.0-10.0) Eosinophils (%) (Auto) % (0.0-3.0) Basophils (%) (Auto) % (0.0-2.0) Differential Total Cells Counted 100 Neutrophils % (Manual) 72 % (45-75) Lymphocytes % (Manual) 20 % (20-45) Monocytes % (Manual) 6 % (1-10) Eosinophils % (Manual) 2 % (0-3) Basophils % (Manual) 0 % (0-2) Band Neutrophils 0 % (0-8) Platelet Estimate Adequate Platelet Morphology Normal Polychromasia 1+ Hypochromasia 1+ Anisocytosis 1+ Prothrombin Time 11.3 SEC (9.30-11.50) Prothromb Time International Ratio 1.1 (0.9-1.1) Activated Partial Thromboplast Time 32 SEC (23-33) Sodium Level 147 MMOL/L (136-145) H Potassium Level 5.4 MMOL/L (3.5-5.1) H 5.6 MMOL/L (3.5-5.1) H Chloride Level 111 MMOL/L (98-107) H Carbon Dioxide Level 30 MMOL/L (21-32) Anion Gap 6 mmol/L (5-15) Blood Urea Nitrogen 62 mg/dL (7-18) H Creatinine 1.7 MG/DL (0.55-1.30) H Estimat Glomerular Filtration Rate mL/min (>60) Glucose Level 184 MG/DL (74-106) H Uric Acid 4.6 MG/DL (2.6-7.2) Calcium Level 8.8 MG/DL (8.5-10.1) Phosphorus Level 3.5 MG/DL (2.5-4.9) Magnesium Level 2.1 MG/DL (1.8-2.4) Total Bilirubin 0.3 MG/DL (0.2-1.0) Aspartate Amino Transf (AST/SGOT) 32 U/L (15-37) Alanine Aminotransferase (ALT/SGPT) 13 U/L (12-78) Alkaline Phosphatase 114 U/L (46-116) C-Reactive Protein, Quantitative 16.5 mg/dL (0.00-0.90) H Pro-B-Type Natriuretic Peptide 03076 pg/mL (0-125) H Total Protein 6.7 G/DL (6.4-8.2) Albumin 1.4 G/DL (3.4-5.0) L Globulin 5.3 g/dL Albumin/Globulin Ratio 0.3 (1.0-2.7) L Objective HEAD AND NECK: No JVD. Orally intubated LUNGS: Coarse rhonchi bilaterally. CARDIOVASCULAR: Regular S1 and S2 with no gallop. ABDOMEN: Soft.PEG in place EXTREMITIES: No pitting edema. Claude Pena MD May 02, 2019 14:28
--- NOTE | 2019-05-02 14:40 | Surgery Progress Note ---
Surgery Progress Note Subjective Additional Comments no acute events plan for trach possible tomorrow npo p mn am labs Objective Last 24 Hour Vital Signs Date Time Temp Pulse Resp B/P (MAP) Pulse Ox O2 Delivery O2 Flow Rate FiO2 05/02/19 14:21 88 22 147/81 (103) 98 05/02/19 14:00 103 17 140/74 (96) 98 05/02/19 13:00 83 23 127/81 (96) 97 05/02/19 12:42 71 17 30 05/02/19 12:00 Mechanical Ventilator 05/02/19 12:00 30 05/02/19 12:00 104 05/02/19 12:00 99.1 100 15 134/78 (96) 97 05/02/19 11:00 112 20 30 05/02/19 11:00 109 18 137/85 (102) 100 05/02/19 10:00 104 21 128/74 (92) 96 05/02/19 09:00 111 22 117/71 (86) 94 05/02/19 08:44 115 25 30 05/02/19 08:00 30 05/02/19 08:00 Mechanical Ventilator 05/02/19 08:00 98.9 116 25 130/79 (96) 95 05/02/19 08:00 124 05/02/19 07:00 115 26 139/74 (95) 97 05/02/19 07:00 171/89 05/02/19 06:46 83 16 30 05/02/19 06:46 83 16 97 Mechanical Ventilator 30 05/02/19 06:00 98 16 160/88 (112) 97 05/02/19 05:15 74 16 30 05/02/19 05:00 81 18 158/87 (110) 96 05/02/19 04:00 30 05/02/19 04:00 Mechanical Ventilator 05/02/19 04:00 82 12 157/88 (111) 97 05/02/19 03:14 78 16 30 05/02/19 03:06 78 05/02/19 03:00 79 12 143/70 (94) 97 05/02/19 02:00 84 14 135/70 (91) 99 05/02/19 01:16 76 16 30 05/02/19 01:00 78 15 135/75 (95) 97 05/02/19 00:00 30 05/02/19 00:00 Mechanical Ventilator 05/02/19 00:00 97.9 67 12 145/72 (96) 97 05/01/19 23:40 77 05/01/19 23:19 73 16 30 05/01/19 23:00 77 18 140/78 (98) 99 05/01/19 22:00 80 15 150/79 (102) 98 05/01/19 21:06 75 16 30 05/01/19 21:00 70 16 148/83 (104) 99 05/01/19 20:00 Mechanical Ventilator 05/01/19 20:00 84 16 148/74 (98) 98 05/01/19 20:00 30 05/01/19 19:28 84 05/01/19 19:00 99 19 161/96 (117) 100 05/01/19 18:58 97 17 30 05/01/19 18:00 99 19 155/94 (114) 93 05/01/19 17:29 124 24 30 05/01/19 17:00 98.8 79 21 162/85 (110) 95 05/01/19 16:00 Mechanical Ventilator 05/01/19 16:00 30 05/01/19 16:00 75 13 144/78 (100) 95 05/01/19 16:00 86 05/01/19 15:02 73 16 30 05/01/19 15:00 82 16 163/78 (106) 96 I&O Intake and Output 05/01/19 05/02/19 18:59 06:59 Intake Total 780 ml 720 ml Output Total 375 ml 430 ml Balance 405 ml 290 ml Free Water 60 ml Tube Feeding 720 ml 720 ml Output Urine Total 375 ml 430 ml # Bowel Movements 5 2 Laboratory Tests Test 05/02/19 04:00 05/02/19 09:55 White Blood Count 10.5 K/UL (4.8-10.8) Red Blood Count 2.68 M/UL (4.20-5.40) L Hemoglobin 7.6 G/DL (12.0-16.0) L Hematocrit 24.4 % (37.0-47.0) L Mean Corpuscular Volume 91 FL (80-99) Mean Corpuscular Hemoglobin 28.3 PG (27.0-31.0) Mean Corpuscular Hemoglobin Concent 31.1 G/DL (32.0-36.0) L Red Cell Distribution Width 16.0 % (11.6-14.8) H Platelet Count 147 K/UL (150-450) L Mean Platelet Volume 6.9 FL (6.5-10.1) Neutrophils (%) (Auto) % (45.0-75.0) Lymphocytes (%) (Auto) % (20.0-45.0) Monocytes (%) (Auto) % (1.0-10.0) Eosinophils (%) (Auto) % (0.0-3.0) Basophils (%) (Auto) % (0.0-2.0) Differential Total Cells Counted 100 Neutrophils % (Manual) 72 % (45-75) Lymphocytes % (Manual) 20 % (20-45) Monocytes % (Manual) 6 % (1-10) Eosinophils % (Manual) 2 % (0-3) Basophils % (Manual) 0 % (0-2) Band Neutrophils 0 % (0-8) Platelet Estimate Adequate Platelet Morphology Normal Polychromasia 1+ Hypochromasia 1+ Anisocytosis 1+ Prothrombin Time 11.3 SEC (9.30-11.50) Prothromb Time International Ratio 1.1 (0.9-1.1) Activated Partial Thromboplast Time 32 SEC (23-33) Sodium Level 147 MMOL/L (136-145) H Potassium Level 5.4 MMOL/L (3.5-5.1) H 5.6 MMOL/L (3.5-5.1) H Chloride Level 111 MMOL/L (98-107) H Carbon Dioxide Level 30 MMOL/L (21-32) Anion Gap 6 mmol/L (5-15) Blood Urea Nitrogen 62 mg/dL (7-18) H Creatinine 1.7 MG/DL (0.55-1.30) H Estimat Glomerular Filtration Rate mL/min (>60) Glucose Level 184 MG/DL (74-106) H Uric Acid 4.6 MG/DL (2.6-7.2) Calcium Level 8.8 MG/DL (8.5-10.1) Phosphorus Level 3.5 MG/DL (2.5-4.9) Magnesium Level 2.1 MG/DL (1.8-2.4) Total Bilirubin 0.3 MG/DL (0.2-1.0) Aspartate Amino Transf (AST/SGOT) 32 U/L (15-37) Alanine Aminotransferase (ALT/SGPT) 13 U/L (12-78) Alkaline Phosphatase 114 U/L (46-116) C-Reactive Protein, Quantitative 16.5 mg/dL (0.00-0.90) H Pro-B-Type Natriuretic Peptide 50617 pg/mL (0-125) H Total Protein 6.7 G/DL (6.4-8.2) Albumin 1.4 G/DL (3.4-5.0) L Globulin 5.3 g/dL Albumin/Globulin Ratio 0.3 (1.0-2.7) L Plan Problems: (1) Respiratory distress Assessment & Plan: has been on vents support for near two weeks cannot wean and does not tolerate weaning trials trach indicated and recommended will obtain consent and schedule (2) Malnutrition (3) UTI (urinary tract infection) (4) Diabetic nephropathy (5) Renal failure (ARF), acute on chronic (6) Anemia in chronic kidney disease (CKD) (7) Pulmonary hypertension (8) Acute respiratory failure (9) Respiratory failure (10) Hypernatremia (11) Sepsis Assessment & Plan: cont with current care trend labs will follow with recs (12) Pneumonia (13) History of CVA (cerebrovascular accident) (14) CAD (coronary artery disease) (15) Right hemiplegia (16) Diabetes mellitus (17) Hypertensive heart disease (18) 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 (19) Nosocomial pneumonia (20) At high risk for aspiration (21) Acute metabolic encephalopathy Devaughn Marin May 02, 2019 14:40
--- NOTE | 2019-05-02 14:42 | NUR ---
NURSE NOTES: Blood transfusion was started at 1430 with 1unit of PRBC as ordered for Hgb level of 7.6. VS stable, temp 98.7F axillary, HR85, BP147/81, O2sat 98% at AC vent settings AC16, VT500, peep 5.0, FIO2 30%. Pt is tolerating well with no s/s of adverse/allergic reactions noted. Pt being closely monitored.
[2019-05-02] MEDS ORDERED: Tubing IV Blood Pump IV ONE (15:08)
--- NOTE | 2019-05-02 16:20 | NUR ---
NURSE NOTES: Blood transfusion of PRBC is now complete. Pt tolerated well with no signs/symptoms of adverse or allergic reactions noted. VS stable. Pt is resting in no apparent distress. Pt had BM x1, moderate, soft/formed, brown. Pt was cleaned, dressing changed, gown/bed linens were changed. Blood/tubing with completed report was submitted to lab and original copy of blood transfusion reported filed in paper chart.
--- NOTE | 2019-05-02 18:00 | NUR ---
NURSE NOTES: Order received from Dr Marin to prepare pt for possible trach placement tomorrow. Diet order received to stop feeding at midnight tonight. Will process order and follow/indorse to next shift.
--- NOTE | 2019-05-02 18:30 | NUR ---
NURSE NOTES: Pt is asleep with stable VS and no s/s of distress present. Pt has been repositioned. Oral care done.
--- NOTE | 2019-05-02 19:06 | NUR ---
HAND-OFF: Report given to Anne BURNETT. VS stable. Endorsed plan of care.
--- NOTE | 2019-05-02 19:07 | NUR ---
NURSE NOTES: Received bedside report from HORTENCIA Pierre.Patient stable,nonverbal,trach with setting AC 16 TV 500 FiO2 30% PEEP 5 tolerated well no s/s of pain,no respiratory distress noted,GT running with Glucerna 1.5 @ 60 ml/hr flush 150 ml Q 6hrs,BS active in all quadrants,IV asymptomatic,intact on SUZIE PICC TKO,last dressing changed 05/02/19,bed secured in a low safety position,call light within a reach,will continue to monitor and follow POC.
[2019-05-02] MEDS: Dyna-Hex 2% Top Sol 2oz TOPIC SCH (20:04)
--- NOTE | 2019-05-02 21:31 | NUR ---
NURSE NOTES: Patient stable,no s/s of pain noted,no respiratory distress at this moment,patient clean and dry,will continue to follow POC
[2019-05-03] VITALS (23 sets, daily range): BP systolic 124–177; BP diastolic 65–99
--- NOTE | 2019-05-03 00:36 | NUR ---
NURSE NOTES: Patient stable,turned and repositioned,oral care provided,BS checked and 4 units of insulin administered.NPO started srom midnight as per MD ordered.
--- NOTE | 2019-05-03 01:30 | NUR ---
NURSE NOTES: PRN Tylenol 650 mg GT and Hydralazine given 0.5 ml IV ,B/P 177/94,will continue monitoring patient.
--- NOTE | 2019-05-03 02:00 | NUR ---
NURSE NOTES: Patient 's B/P dropped down 139/72 HR 93,no s/s of pain,repositioned and suctioned by RT.Will continue monitor.
--- NOTE | 2019-05-03 04:41 | NUR ---
NURSE NOTES: Patient stable,no respiratory distress at this time,clean and dry,oral care done,V/S WNL.Blood drawn from PICC line,flushed and clean.
[2019-05-03 05:03] LABS: BASOPHILS % (AUTO) 0.4 % (0.0-2.0); EOSINOPHILS % (AUTO) 1.7 % (0.0-3.0); HEMATOCRIT 31.3 % (37.0-47.0); HEMOGLOBIN 9.8 G/DL (12.0-16.0); LYMPHOCYTES % (AUTO) 13.2 % (20.0-45.0); MEAN CORPUSCULAR VOLUME 91 FL (80-99); MONOCYTES % (AUTO) 4.8 % (1.0-10.0); NEUTROPHILS % (AUTO) 79.8 % (45.0-75.0); PLATELET COUNT 161 K/UL (150-450); RED BLOOD COUNT 3.42 M/UL (4.20-5.40); WHITE BLOOD COUNT 16.8 K/UL (4.8-10.8)
[2019-05-03 05:18] LABS: INR 1.1 (0.9-1.1)
[2019-05-03 05:30] LABS: ALANINE AMINOTRANSFERASE 13 U/L (12-78); ALBUMIN/GLOBULIN RATIO 0.4 (1.0-2.7); ALKALINE PHOSPHATASE 113 U/L (46-116); ANION GAP 12 mmol/L (5-15); ASPARTATE AMINO TRANSFERASE 41 U/L (15-37); BILIRUBIN,TOTAL 0.6 MG/DL (0.2-1.0); BLOOD UREA NITROGEN 60 mg/dL (7-18); CALCIUM 8.9 MG/DL (8.5-10.1); CARBON DIOXIDE 27 MMOL/L (21-32); CHLORIDE 105 MMOL/L (98-107); CREATININE 1.7 MG/DL (0.55-1.30); PHOSPHORUS 4.2 MG/DL (2.5-4.9); POTASSIUM 4.4 MMOL/L (3.5-5.1); SODIUM 144 MMOL/L (136-145)
--- NOTE | 2019-05-03 06:06 | NUR ---
NURSE NOTES: pt NPO since midnight,BS 186 notified d/t pt scheduled for tracheostomy today.waiting for Dr's respond,charge nurse aware.
[2019-05-03] MEDS: NovoLOG Insulin Flexpen SUBQ SCH ×4 (06:34→23:54)
--- NOTE | 2019-05-03 07:00 | NUR ---
RESPIRATORY NOTE:Received pt on PB vent Pt is orally intubated with ETT 7.5 @23cm lips line, secured with tape. Bite block in place to prevent tube biting. pt is resting comfortably in bed, no SOB or no resp distress noted at this time. Alarms are set and audible, vent is plugged into the red outlet, ambu bag is at bedside. Vent circuits and sxn tubing are patent, secured and out of the way. Will continue to monitor pt.
--- NOTE | 2019-05-03 07:14 | NUR ---
HAND-OFF: Report given to HORTENCIA Barnett.Patient stable.
--- NOTE | 2019-05-03 08:12 | NUR ---
NURSE NOTES: Patient received from HORTENCIA Rodríguez. Asleep easily arousal to verbal and tactile stimuli.Afebrile and non verbal.Orally intubated ETT 7.5/23 cm, AC 16, TV 500, 30%, PEEP5. Saturate at 98% on the monitor.HOB elevated at 35 degree to prevent aspiration. OGT in place and placement intact .On Glucerna 1.2 at 60 cc/hr, on hold for tracheostomy placement.Pre-op check list done. Abdomen soft and non distended.Bowel sounds present in all 4 quadrants. Fraga catheter draining yellowish urine with no apparent sediments noted.SUZIE PICC with dressing clean and intact, running NS at 75cc/hr. Left wrist with soft restraint.Will continue to monitor.Kept clean dry and comfortable and call light within easy reach.Seen by Dr Springer and Dr Faustin.Will follow up with new orders.
--- NOTE | 2019-05-03 08:37 | General Progress Note ---
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 ICD Codes: E11.22 - Type 2 diabetes mellitus with diabetic chronic kidney disease; N18.4 - Chronic kidney disease, stage 4 (severe) SNOMED: 81519115, 540056738, 074542255 (3) Diabetes mellitus ICD Codes: E11.9 - Type 2 diabetes mellitus without complications SNOMED: 92155591 (4) CAD (coronary artery disease) ICD Codes: I25.10 - Atherosclerotic heart disease of three affiliated coronary artery without angina pectoris SNOMED: 66682230 (5) History of CVA (cerebrovascular accident) ICD Codes: Z86.73 - Personal history of transient ischemic attack (TIA), and cerebral infarction without residual deficits SNOMED: 051596855 (6) Anemia in chronic kidney disease (CKD) ICD Codes: N18.9 - Chronic kidney disease, unspecified; D63.1 - Anemia in chronic kidney disease SNOMED: 836139957 (7) Diabetic nephropathy ICD Codes: E11.21 - Type 2 diabetes mellitus with diabetic nephropathy SNOMED: 175805537 Status: unchanged Assessment/Plan: intubated GTF fu labs fu pulm recs prn blood transfusion pending trach ppi Subjective ROS Limited/Unobtainable: No Allergies: Coded Allergies: No Known Allergies (Unverified , 04/12/19) Objective Last 24 Hour Vital Signs Date Time Temp Pulse Resp B/P (MAP) Pulse Ox O2 Delivery O2 Flow Rate FiO2 05/03/19 07:06 103 16 30 05/03/19 07:00 104 10 147/87 (107) 96 05/03/19 06:00 113 20 148/80 (102) 95 05/03/19 05:00 120 13 134/85 (101) 95 05/03/19 05:00 115 18 30 05/03/19 04:00 Mechanical Ventilator 05/03/19 04:00 114 28 142/78 (99) 94 05/03/19 04:00 124 05/03/19 03:22 118 23 30 05/03/19 03:00 121 34 147/89 (108) 94 05/03/19 02:00 97 14 139/72 (94) 96 05/03/19 01:14 177/80 05/03/19 01:00 97 18 30 05/03/19 01:00 105 26 177/99 (125) 97 05/03/19 00:00 Mechanical Ventilator 05/03/19 00:00 92 6 147/85 (105) 97 05/03/19 00:00 91 05/03/19 00:00 30 05/02/19 23:00 88 16 147/85 (105) 98 05/02/19 22:48 82 16 30 05/02/19 22:00 98.3 87 12 159/89 (112) 97 05/02/19 21:00 85 12 161/94 (116) 96 05/02/19 20:57 84 18 30 05/02/19 20:20 86 05/02/19 20:00 30 05/02/19 20:00 89 8 142/84 (103) 98 05/02/19 20:00 Mechanical Ventilator 05/02/19 19:00 84 5 147/90 (109) 98 05/02/19 18:55 88 17 30 05/02/19 18:00 103 0 148/90 (109) 98 05/02/19 17:15 107 20 30 05/02/19 17:00 105 21 164/84 (110) 97 05/02/19 16:00 Mechanical Ventilator 05/02/19 16:00 30 05/02/19 16:00 90 05/02/19 16:00 98.9 82 16 155/82 (106) 98 05/02/19 15:00 68 16 145/82 (103) 98 05/02/19 14:34 77 16 30 05/02/19 14:21 98.7 88 22 147/81 (103) 98 05/02/19 14:00 103 17 140/74 (96) 98 05/02/19 13:00 83 23 127/81 (96) 97 05/02/19 12:42 71 17 30 05/02/19 12:00 Mechanical Ventilator 05/02/19 12:00 30 05/02/19 12:00 104 05/02/19 12:00 99.1 100 15 134/78 (96) 97 05/02/19 11:00 112 20 30 05/02/19 11:00 109 18 137/85 (102) 100 05/02/19 10:00 104 21 128/74 (92) 96 05/02/19 09:00 111 22 117/71 (86) 94 05/02/19 08:44 115 25 30 Intake and Output 05/02/19 05/03/19 19:00 07:00 Intake Total 1520 ml 1055 ml Output Total 435 ml 535 ml Balance 1085 ml 520 ml Free Water 300 ml 300 ml IV Total 500 ml 35 ml Tube Feeding 720 ml 720 ml Output Urine Total 435 ml 535 ml # Bowel Movements 3 Laboratory Tests 05/02/19 09:55: Potassium Level 5.6H 05/03/19 04:00: Potassium Level 4.4, White Blood Count 16.8#H, Red Blood Count 3.42L, Hemoglobin 9.8L, Hematocrit 31.3L, Mean Corpuscular Volume 91, Mean Corpuscular Hemoglobin 28.8, Mean Corpuscular Hemoglobin Concent 31.5L, Red Cell Distribution Width 16.0H, Platelet Count 161, Mean Platelet Volume 7.2, Neutrophils (%) (Auto) 79.8H, Lymphocytes (%) (Auto) 13.2L, Monocytes (%) (Auto ) 4.8, Eosinophils (%) (Auto) 1.7, Basophils (%) (Auto) 0.4, Prothrombin Time 11.4, Prothromb Time International Ratio 1.1, Activated Partial Thromboplast Time 31, Sodium Level 144, Chloride Level 105, Carbon Dioxide Level 27, Anion Gap 12, Blood Urea Nitrogen 60H, Creatinine 1.7H, Estimat Glomerular Filtration Rate , Glucose Level 195H, Calcium Level 8.9, Phosphorus Level 4.2, Magnesium Level 1.9, Total Bilirubin 0.6, Aspartate Amino Transf (AST/SGOT) 41H, Alanine Aminotransferase (ALT/SGPT) 13, Alkaline Phosphatase 113, Total Protein 7.2, Albumin 2.0L, Globulin 5.2, Albumin/Globulin Ratio 0.4L Height (Feet): 5 Height (Inches): 3.00 Weight (Pounds): 187 General Appearance: no apparent distress EENT: normal ENT inspection Neck: supple Cardiovascular: normal rate Respiratory/Chest: decreased breath sounds Abdomen: normal bowel sounds, non tender, soft Extremities: non-tender Darron Gentile MD May 03, 2019 08:37
--- NOTE | 2019-05-03 10:09 | Pulmonolgy Critical Care Note ---
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 (7) Hypertensive heart disease (8) Right hemiplegia (9) History of CVA (cerebrovascular accident) (10) CAD (coronary artery disease) Respiratory: monitor respiratory rate, adjust FIO2, CXR Cardiac: continue to monitor HR/BP Renal: F/U I&O, check electrolytes Infectious Disease: check cultures Gastrointestinal: hold feedings Endocrine: check TSH, check HgA1C, continue sliding scale insulin Hematologic: transfuse if hgb<8.5 Neurologic: PRN Ativan, PRN Morphine, keep patient comfortable Prophylaxis: Protonix, Heparin Time Spent (Minutes): 40 Notes Reviewed: hook up, renal Discussed with: nurses, consultants, case management social workermanager acquisition - Objective Last 24 Hour Vital Signs Date Time Temp Pulse Resp B/P (MAP) Pulse Ox O2 Delivery O2 Flow Rate FiO2 05/03/19 09:13 96 16 30 05/03/19 09:00 98 12 125/75 (92) 96 05/03/19 08:00 107 05/03/19 08:00 30 05/03/19 08:00 98.3 104 12 138/77 (97) 97 05/03/19 08:00 Mechanical Ventilator 05/03/19 07:06 103 16 30 05/03/19 07:00 104 10 147/87 (107) 96 05/03/19 06:00 113 20 148/80 (102) 95 05/03/19 05:00 120 13 134/85 (101) 95 05/03/19 05:00 115 18 30 05/03/19 04:00 Mechanical Ventilator 05/03/19 04:00 114 28 142/78 (99) 94 05/03/19 04:00 124 05/03/19 03:22 118 23 30 05/03/19 03:00 121 34 147/89 (108) 94 05/03/19 02:00 97 14 139/72 (94) 96 05/03/19 01:14 177/80 05/03/19 01:00 97 18 30 05/03/19 01:00 105 26 177/99 (125) 97 05/03/19 00:00 Mechanical Ventilator 05/03/19 00:00 92 6 147/85 (105) 97 05/03/19 00:00 91 05/03/19 00:00 30 05/02/19 23:00 88 16 147/85 (105) 98 05/02/19 22:48 82 16 30 05/02/19 22:00 98.3 87 12 159/89 (112) 97 05/02/19 21:00 85 12 161/94 (116) 96 05/02/19 20:57 84 18 30 05/02/19 20:20 86 05/02/19 20:00 30 05/02/19 20:00 89 8 142/84 (103) 98 05/02/19 20:00 Mechanical Ventilator 05/02/19 19:00 84 5 147/90 (109) 98 05/02/19 18:55 88 17 30 05/02/19 18:00 103 0 148/90 (109) 98 05/02/19 17:15 107 20 30 05/02/19 17:00 105 21 164/84 (110) 97 05/02/19 16:00 Mechanical Ventilator 05/02/19 16:00 30 05/02/19 16:00 90 05/02/19 16:00 98.9 82 16 155/82 (106) 98 05/02/19 15:00 68 16 145/82 (103) 98 05/02/19 14:34 77 16 30 05/02/19 14:21 98.7 88 22 147/81 (103) 98 05/02/19 14:00 103 17 140/74 (96) 98 05/02/19 13:00 83 23 127/81 (96) 97 05/02/19 12:42 71 17 30 05/02/19 12:00 Mechanical Ventilator 05/02/19 12:00 30 05/02/19 12:00 104 05/02/19 12:00 99.1 100 15 134/78 (96) 97 05/02/19 11:00 112 20 30 05/02/19 11:00 109 18 137/85 (102) 100 Status: awake Condition: critical HEENT: atraumatic Neck: full ROM Lungs: clear Heart: HR/BP stable, HR/BP unstable Abdomen: soft, active bowel sounds Extremities: no C/C/E, edema Accucheck: 186 Critical Care - Subjective ROS Limited/Unobtainable: No Condition: critical EKG Rhythm: Sinus Rhythm FI02: 30 Vent Support Breath Rate: 16 Vent Support Mode: AC Vent Tidal Volume: 500 Sputum Amount: Small PEEP: 5.0 PIP: 40 Tube Feeding Amount: 60 I&O: Intake and Output 05/02/19 05/03/19 19:00 07:00 Intake Total 1520 ml 1055 ml Output Total 435 ml 535 ml Balance 1085 ml 520 ml Free Water 300 ml 300 ml IV Total 500 ml 35 ml Tube Feeding 720 ml 720 ml Output Urine Total 435 ml 535 ml # Bowel Movements 3 CXR: Laboratory Tests Test 05/03/19 04:00 White Blood Count 16.8 K/UL (4.8-10.8) #H Red Blood Count 3.42 M/UL (4.20-5.40) L Hemoglobin 9.8 G/DL (12.0-16.0) L Hematocrit 31.3 % (37.0-47.0) L Mean Corpuscular Volume 91 FL (80-99) Mean Corpuscular Hemoglobin 28.8 PG (27.0-31.0) Mean Corpuscular Hemoglobin Concent 31.5 G/DL (32.0-36.0) L Red Cell Distribution Width 16.0 % (11.6-14.8) H Platelet Count 161 K/UL (150-450) Mean Platelet Volume 7.2 FL (6.5-10.1) Neutrophils (%) (Auto) 79.8 % (45.0-75.0) H Lymphocytes (%) (Auto) 13.2 % (20.0-45.0) L Monocytes (%) (Auto) 4.8 % (1.0-10.0) Eosinophils (%) (Auto) 1.7 % (0.0-3.0) Basophils (%) (Auto) 0.4 % (0.0-2.0) Prothrombin Time 11.4 SEC (9.30-11.50) Prothromb Time International Ratio 1.1 (0.9-1.1) Activated Partial Thromboplast Time 31 SEC (23-33) Sodium Level 144 MMOL/L (136-145) Potassium Level 4.4 MMOL/L (3.5-5.1) Chloride Level 105 MMOL/L (98-107) Carbon Dioxide Level 27 MMOL/L (21-32) Anion Gap 12 mmol/L (5-15) Blood Urea Nitrogen 60 mg/dL (7-18) H Creatinine 1.7 MG/DL (0.55-1.30) H Estimat Glomerular Filtration Rate mL/min (>60) Glucose Level 195 MG/DL (74-106) H Calcium Level 8.9 MG/DL (8.5-10.1) Phosphorus Level 4.2 MG/DL (2.5-4.9) Magnesium Level 1.9 MG/DL (1.8-2.4) Total Bilirubin 0.6 MG/DL (0.2-1.0) Aspartate Amino Transf (AST/SGOT) 41 U/L (15-37) H Alanine Aminotransferase (ALT/SGPT) 13 U/L (12-78) Alkaline Phosphatase 113 U/L (46-116) Total Protein 7.2 G/DL (6.4-8.2) Albumin 2.0 G/DL (3.4-5.0) L Globulin 5.2 g/dL Albumin/Globulin Ratio 0.4 (1.0-2.7) L ET-Tube: 7.5 ET Position: 23 Labs: Laboratory Tests Test 05/03/19 04:00 White Blood Count 16.8 K/UL (4.8-10.8) #H Red Blood Count 3.42 M/UL (4.20-5.40) L Hemoglobin 9.8 G/DL (12.0-16.0) L Hematocrit 31.3 % (37.0-47.0) L Mean Corpuscular Volume 91 FL (80-99) Mean Corpuscular Hemoglobin 28.8 PG (27.0-31.0) Mean Corpuscular Hemoglobin Concent 31.5 G/DL (32.0-36.0) L Red Cell Distribution Width 16.0 % (11.6-14.8) H Platelet Count 161 K/UL (150-450) Mean Platelet Volume 7.2 FL (6.5-10.1) Neutrophils (%) (Auto) 79.8 % (45.0-75.0) H Lymphocytes (%) (Auto) 13.2 % (20.0-45.0) L Monocytes (%) (Auto) 4.8 % (1.0-10.0) Eosinophils (%) (Auto) 1.7 % (0.0-3.0) Basophils (%) (Auto) 0.4 % (0.0-2.0) Prothrombin Time 11.4 SEC (9.30-11.50) Prothromb Time International Ratio 1.1 (0.9-1.1) Activated Partial Thromboplast Time 31 SEC (23-33) Sodium Level 144 MMOL/L (136-145) Potassium Level 4.4 MMOL/L (3.5-5.1) Chloride Level 105 MMOL/L (98-107) Carbon Dioxide Level 27 MMOL/L (21-32) Anion Gap 12 mmol/L (5-15) Blood Urea Nitrogen 60 mg/dL (7-18) H Creatinine 1.7 MG/DL (0.55-1.30) H Estimat Glomerular Filtration Rate mL/min (>60) Glucose Level 195 MG/DL (74-106) H Calcium Level 8.9 MG/DL (8.5-10.1) Phosphorus Level 4.2 MG/DL (2.5-4.9) Magnesium Level 1.9 MG/DL (1.8-2.4) Total Bilirubin 0.6 MG/DL (0.2-1.0) Aspartate Amino Transf (AST/SGOT) 41 U/L (15-37) H Alanine Aminotransferase (ALT/SGPT) 13 U/L (12-78) Alkaline Phosphatase 113 U/L (46-116) Total Protein 7.2 G/DL (6.4-8.2) Albumin 2.0 G/DL (3.4-5.0) L Globulin 5.2 g/dL Albumin/Globulin Ratio 0.4 (1.0-2.7) L Tony Springer MD May 03, 2019 10:09
--- NOTE | 2019-05-03 10:38 | NUR ---
NURSE NOTES: ADLS done,turned and repositioned.Kept clean and dry.Mouth care done,HOB elevated to prevent aspiration.Will continue to monitor
--- NOTE | 2019-05-03 12:01 | NUR ---
NURSE NOTES: Seen by Dr Spivey,will follow up new orders Addendum: 05/03/19 at 1203 by Ericka Petersen RN Mouth care done,turned and repositioned.HOB elevated to prevent aspiration.
[2019-05-03] MEDS ORDERED: LR 1000ml ONE (14:00)
--- NOTE | 2019-05-03 14:03 | NUR ---
NURSE NOTES: Patient cleaned and dry, awaiting transportation to OR for trach placement.Consent given by erick Cezar.
[2019-05-03] MEDS ORDERED: Zemuron 50mg/5ml Inj IV ONE (14:09)
--- NOTE | 2019-05-03 14:20 | Anethesia Preoperative Eval ---
Anesthesia Pre-op PMH/ROS General Date of Evaluation: May 03, 2019 Time of Evaluation: 14:16 Anesthesiologist: Mario ASA Score: ASA 4 Mallampati Score Class I : Soft palate, uvula, fauces, pillars visible Class II: Soft palate, uvula, fauces visible Class III: Soft palate, base of uvula visible Class IV: Only hard plate visible Mallampati Classification: Class II Surgeon: Tania Diagnosis: Ventilatory Failure Surgical Procedure: Tracheostomy Anesthesia History: none Family History: no anesthesia problems Allergies: Coded Allergies: No Known Allergies (Unverified , 04/12/19) Medications: see eMAR Patient NPO?: Yes NPO Date: May 03, 2019 NPO Time: 0000 Past Medical History Cardiovascular: Reports: HTN, CAD, arrhythmia - AFlutter Gastrointestinal/Genitourinary: Reports: CRI Neurologic/Psychiatric: Reports: dementia, CVA Endocrine: Reports: DM Hematology/Immune: Reports: anemia Other: obesity - BMI 34 PSxH Narrative: GI Procedures Anesthesia Pre-op Phys. Exam Physician Exam Last Vital Signs Date Time Temp Pulse Resp B/P (MAP) Pulse Ox O2 Delivery O2 Flow Rate FiO2 05/03/19 13:00 96 12 132/75 (94) 93 05/03/19 12:54 30 05/03/19 12:00 Mechanical Ventilator 05/03/19 12:00 98.8 Constitutional: NAD Neurologic: CN 2-12 intact Cardiovascular: RRR Respiratory: CTA Gastrointestinal: S/NT/ND Airway Exam Mallampati Score: Class II MO: limited ROM: limited Teeth: missing Anesthesia Pre-op A/P Labs Hematology Test 05/03/19 04:00 White Blood Count 16.8 K/UL (4.8-10.8) #H Red Blood Count 3.42 M/UL (4.20-5.40) L Hemoglobin 9.8 G/DL (12.0-16.0) L Hematocrit 31.3 % (37.0-47.0) L Mean Corpuscular Volume 91 FL (80-99) Mean Corpuscular Hemoglobin 28.8 PG (27.0-31.0) Mean Corpuscular Hemoglobin Concent 31.5 G/DL (32.0-36.0) L Red Cell Distribution Width 16.0 % (11.6-14.8) H Platelet Count 161 K/UL (150-450) Mean Platelet Volume 7.2 FL (6.5-10.1) Neutrophils (%) (Auto) 79.8 % (45.0-75.0) H Lymphocytes (%) (Auto) 13.2 % (20.0-45.0) L Monocytes (%) (Auto) 4.8 % (1.0-10.0) Eosinophils (%) (Auto) 1.7 % (0.0-3.0) Basophils (%) (Auto) 0.4 % (0.0-2.0) Coagulation Test 05/03/19 04:00 Prothrombin Time 11.4 SEC (9.30-11.50) Prothromb Time International Ratio 1.1 (0.9-1.1) Activated Partial Thromboplast Time 31 SEC (23-33) Chemistry Test 05/03/19 04:00 Sodium Level 144 MMOL/L (136-145) Potassium Level 4.4 MMOL/L (3.5-5.1) Chloride Level 105 MMOL/L (98-107) Carbon Dioxide Level 27 MMOL/L (21-32) Anion Gap 12 mmol/L (5-15) Blood Urea Nitrogen 60 mg/dL (7-18) H Creatinine 1.7 MG/DL (0.55-1.30) H Estimat Glomerular Filtration Rate mL/min (>60) Glucose Level 195 MG/DL (74-106) H Calcium Level 8.9 MG/DL (8.5-10.1) Phosphorus Level 4.2 MG/DL (2.5-4.9) Magnesium Level 1.9 MG/DL (1.8-2.4) Total Bilirubin 0.6 MG/DL (0.2-1.0) Aspartate Amino Transf (AST/SGOT) 41 U/L (15-37) H Alanine Aminotransferase (ALT/SGPT) 13 U/L (12-78) Alkaline Phosphatase 113 U/L (46-116) Total Protein 7.2 G/DL (6.4-8.2) Albumin 2.0 G/DL (3.4-5.0) L Globulin 5.2 g/dL Albumin/Globulin Ratio 0.4 (1.0-2.7) L Risk Assessment & Plan Assessment: ASA 4 Plan: GA Status Change Before Surgery: No Rod Martin MD May 03, 2019 14:20
--- NOTE | 2019-05-03 14:21 | Immediate Post-Op Evaluation ---
Immediate Post-Op Evalulation Immediate Post-Op Evalulation Procedure: Tracheostomy Date of Evaluation: May 03, 2019 Time of Evaluation: 15:38 IV Fluids: 10 LR Blood Products: 0 Estimated Blood Loss: 10 Urinary Output: 0 Blood Pressure Systolic: 174 Blood Pressure Diastolic: 98 Pulse Rate: 77 Respiratory Rate: 20 - Mech Vent O2 Sat by Pulse Oximetry: 100 Temperature (Fahrenheit): 98.9 Pain Score (1-10): 0 Nausea: No Vomiting: No Complications 0 Patient Status: no response, patent, ventilated, none Hydration Status: adequate Rod Martin MD May 03, 2019 14:21
--- NOTE | 2019-05-03 14:48 | Pre-Procedure Note/Attestation ---
Pre-Procedure Note/Attestation Complete Prior to Procedure Planned Procedure: not applicable Procedure Narrative: tracheostomy Indications for Procedure Pre-Operative Diagnosis: respiratory insufficiency requiring prolonged ventilatory support Attestation I attest that I discussed the nature of the procedure; its benefits; risks and complications; and alternatives (and the risks and benefits of such alternatives ), prior to the procedure, with the patient (or the patient's legal appeals representative). I attest that, if there was a reasonable possibility of needing a blood transfusion, the patient (or the patient's legal appeals representative) was given the [facility] standardized written summary, pursuant to the Romulo Murali Blood Safety Act ([place] Health and Safety Code # 1645, as amended). I attest that I re-evaluated the patient just prior to the surgery and that there has been no change in the patient's H&P, except as documented below: Devaughn Marin May 03, 2019 14:48
--- NOTE | 2019-05-03 14:50 | NUR ---
NURSE NOTES: Patient taken down for tracheostomy placement
--- NOTE | 2019-05-03 15:01 | Infectious Diseases Prog Note ---
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 PNA, sp Rx Pulmonary edema -04/26 CXR: Suspect slightly increased interstitial and airspace edema, over 2 days.Possibly improving small right pleural effusion -04/19 CXR: There is less pulmonary edema compared to yesterday but with moderate residual edema. -04/16 CXR: . Right perihilar and bilateral lower lobe pulmonary consolidation concerning for pneumonia.Small bilateral pleural effusions. CXR - B/L Infiltrates Low grade fevers; SP WBCs up to 25; recurrent- r/o ALVAREZ, cdiff -04/24 Cdiff eng 04/16 Sp Cx - C. alb; 04/19 spC. albicans (colonizer) -BCx NTD -legionella ag urine neg Widened mediastinum - right sided aortic arch CXR - Apparent upper mediastinal widening. Possibly due to ectatic vasculature and body habitus, but upper mediastinal mass also possible. Correlate with any prior adiographs and may be available, consider CT for further evaluation if clinically indicated CT 04/13/19 - Right-sided aortic arch, presumably accounting for the apparent upper mediastinal widening demonstrated on recent plain radiograph. No evidence of upper mediastinal mass. Extensive bilateral lower lobe consolidation , likely pneumonia, less extensive left upper lobe consolidation. 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 CKD CAD PLAN Continue to monitor off abx for now -low threshold to resume abx -04/28 SP Cefepime # -04/22 SP Meropenem # -04/20 SP Vancomycin #8 - 04/18/19 S/P Cefepime #6 - f/u cultures - Monitor CBC and Temps -u/a, ucx, Bcx x2, Sp cx, Cdiff Thank you for this consult. We will continue to follow the patient during this hospitalization. Subjective Allergies: Coded Allergies: No Known Allergies (Unverified , 04/12/19) Subjective afebrile leukocytosis Objective Vital Signs Last 24 Hour Vital Signs Date Time Temp Pulse Resp B/P (MAP) Pulse Ox O2 Delivery O2 Flow Rate FiO2 05/03/19 13:00 96 12 132/75 (94) 93 05/03/19 12:54 80 16 30 05/03/19 12:00 Mechanical Ventilator 05/03/19 12:00 89 05/03/19 12:00 30 05/03/19 12:00 98.8 91 12 128/75 (92) 97 05/03/19 11:23 90 16 30 05/03/19 11:00 86 12 126/74 (91) 96 05/03/19 10:00 91 12 126/78 (94) 96 05/03/19 09:13 96 16 30 05/03/19 09:00 98 12 125/75 (92) 96 05/03/19 08:00 107 05/03/19 08:00 30 05/03/19 08:00 98.3 104 12 138/77 (97) 97 05/03/19 08:00 Mechanical Ventilator 05/03/19 07:06 103 16 30 05/03/19 07:00 104 10 147/87 (107) 96 05/03/19 06:00 113 20 148/80 (102) 95 05/03/19 05:00 120 13 134/85 (101) 95 05/03/19 05:00 115 18 30 05/03/19 04:00 Mechanical Ventilator 05/03/19 04:00 114 28 142/78 (99) 94 05/03/19 04:00 124 05/03/19 03:22 118 23 30 05/03/19 03:00 121 34 147/89 (108) 94 05/03/19 02:00 97 14 139/72 (94) 96 05/03/19 01:14 177/80 05/03/19 01:00 97 18 30 05/03/19 01:00 105 26 177/99 (125) 97 05/03/19 00:00 Mechanical Ventilator 05/03/19 00:00 92 6 147/85 (105) 97 05/03/19 00:00 91 05/03/19 00:00 30 05/02/19 23:00 88 16 147/85 (105) 98 05/02/19 22:48 82 16 30 05/02/19 22:00 98.3 87 12 159/89 (112) 97 05/02/19 21:00 85 12 161/94 (116) 96 05/02/19 20:57 84 18 30 05/02/19 20:20 86 05/02/19 20:00 30 05/02/19 20:00 89 8 142/84 (103) 98 05/02/19 20:00 Mechanical Ventilator 05/02/19 19:00 84 5 147/90 (109) 98 05/02/19 18:55 88 17 30 05/02/19 18:00 103 0 148/90 (109) 98 05/02/19 17:15 107 20 30 05/02/19 17:00 105 21 164/84 (110) 97 05/02/19 16:00 Mechanical Ventilator 05/02/19 16:00 30 05/02/19 16:00 90 05/02/19 16:00 98.9 82 16 155/82 (106) 98 05/02/19 15:00 68 16 145/82 (103) 98 Height (Feet): 5 Height (Inches): 3.00 Weight (Pounds): 187 Objective Gen: Awake and talking HEENT: NCAT, MMM, EOMI LUNGS: CTAB, No W CARDS: RRR, S1, S2, No M/R/G, ABD: Soft, NT, ND Laboratory Tests Test 05/03/19 04:00 White Blood Count 16.8 K/UL (4.8-10.8) #H Red Blood Count 3.42 M/UL (4.20-5.40) L Hemoglobin 9.8 G/DL (12.0-16.0) L Hematocrit 31.3 % (37.0-47.0) L Mean Corpuscular Volume 91 FL (80-99) Mean Corpuscular Hemoglobin 28.8 PG (27.0-31.0) Mean Corpuscular Hemoglobin Concent 31.5 G/DL (32.0-36.0) L Red Cell Distribution Width 16.0 % (11.6-14.8) H Platelet Count 161 K/UL (150-450) Mean Platelet Volume 7.2 FL (6.5-10.1) Neutrophils (%) (Auto) 79.8 % (45.0-75.0) H Lymphocytes (%) (Auto) 13.2 % (20.0-45.0) L Monocytes (%) (Auto) 4.8 % (1.0-10.0) Eosinophils (%) (Auto) 1.7 % (0.0-3.0) Basophils (%) (Auto) 0.4 % (0.0-2.0) Prothrombin Time 11.4 SEC (9.30-11.50) Prothromb Time International Ratio 1.1 (0.9-1.1) Activated Partial Thromboplast Time 31 SEC (23-33) Sodium Level 144 MMOL/L (136-145) Potassium Level 4.4 MMOL/L (3.5-5.1) Chloride Level 105 MMOL/L (98-107) Carbon Dioxide Level 27 MMOL/L (21-32) Anion Gap 12 mmol/L (5-15) Blood Urea Nitrogen 60 mg/dL (7-18) H Creatinine 1.7 MG/DL (0.55-1.30) H Estimat Glomerular Filtration Rate mL/min (>60) Glucose Level 195 MG/DL (74-106) H Calcium Level 8.9 MG/DL (8.5-10.1) Phosphorus Level 4.2 MG/DL (2.5-4.9) Magnesium Level 1.9 MG/DL (1.8-2.4) Total Bilirubin 0.6 MG/DL (0.2-1.0) Aspartate Amino Transf (AST/SGOT) 41 U/L (15-37) H Alanine Aminotransferase (ALT/SGPT) 13 U/L (12-78) Alkaline Phosphatase 113 U/L (46-116) Total Protein 7.2 G/DL (6.4-8.2) Albumin 2.0 G/DL (3.4-5.0) L Globulin 5.2 g/dL Albumin/Globulin Ratio 0.4 (1.0-2.7) L Current Medications Medications (Trade) Dose Ordered Sig/Kenisha Route PRN Reason Start Time Stop Time Status Last Admin Dose Admin Acetaminophen (Tylenol) 650 mg Q4H PRN ORAL FEVER 04/17/19 12:36 05/17/19 12:35 05/03/19 01:10 Acetaminophen (Tylenol) 650 mg Q4H PRN RECTAL Fever 04/17/19 12:36 05/17/19 12:35 04/18/19 08:53 Albuterol/ Ipratropium (Albuterol/ Ipratropium) 3 ml Q4H PRN HHN Shortness of Breath 04/29/19 07:30 7/9/19 07:29 Chlorhexidine Gluconate (Izzy-Hex 2%) 1 applic DAILY@2000 TOPIC 04/20/19 20:00 05/20/19 19:59 05/02/19 20:04 Dextrose (Dextrose 50%) 25 ml Q30M PRN IV Hypoglycemia 04/17/19 12:45 05/12/19 19:44 Dextrose (Dextrose 50%) 50 ml Q30M PRN IV Hypoglycemia 04/17/19 12:45 05/12/19 19:44 Epoetin Bandar (Epoetin Bandar-EPBX(NON ESRD)) 10,000 unit FRI-FRI-FRI SUBQ 04/28/19 21:00 05/28/19 20:59 04/30/19 20:32 Folic Acid (Folate) 1 mg DAILY ORAL 04/26/19 09:00 05/19/19 08:59 05/03/19 08:07 Hydralazine HCl (Apresoline) 10 mg Q2H PRN IV SBP > 170 mmHg 05/02/19 17:30 06/01/19 07:29 05/03/19 01:14 Insulin Aspart (NovoLOG) Q6HR SUBQ 04/20/19 18:00 05/20/19 17:59 05/03/19 06:34 Lansoprazole (Prevacid) 30 mg DAILY GT 04/22/19 09:00 05/22/19 08:59 05/03/19 08:07 Midodrine (Pro-Amatine) 10 mg Q8H PRN NG bp below 100 syst 05/02/19 12:00 06/01/19 11:59 Ondansetron HCl (Zofran) 4 mg Q6H PRN IVP Nausea & Vomiting 04/17/19 12:37 05/17/19 12:36 Polyethylene Glycol (Miralax) 17 gm DAILYPRN PRN ORAL Constipation 04/17/19 12:37 05/17/19 12:36 04/23/19 10:31 Sodium Chloride 1,000 ml @ 75 mls/hr [id number] IV 05/03/19 06:30 06/02/19 06:29 05/03/19 06:33 Cora Baer M.D. May 03, 2019 15:01
--- NOTE | 2019-05-03 15:15 | NUR ---
NURSE NOTES: Patient came back from OR.Tracheostomy done, no bleeding at the site.Romana 8 with AC 16 Vt 500 Fio2 30% Peep 5.Will continue to monitor.
--- NOTE | 2019-05-03 16:01 | Brief Operative Note ---
Immediate Post Operative Note Operative Note Pre-op Diagnosis: respiratory insufficiency requiring prolonged ventilatory support Procedure: tracheostomy Post-op Diagnosis: same as pre-op Surgeon: brianna Anesthesiologist: angie Anesthesia: general Specimen: none Complications: none Condition: stable Fluids: see records Estimated Blood Loss: minimal Drains: none Implant(s) used?: No Devaughn Marin May 03, 2019 16:01
--- NOTE | 2019-05-03 16:03 | NUR ---
NURSE NOTES: Turned and repositioned,mouth care done,kept clean and dry.No bleeding noted at the site.Will continue to monitor.
--- NOTE | 2019-05-03 16:15 | Progress Note ---
DATE: 05/03/2019 SUBJECTIVE: This is a 79-year-old female patient. She has sepsis, confusion, and decline in cognition below her baseline. That is why her attending physician has requested daily psychiatric consultation. DIAGNOSIS: Major depressive disorder, mild, recurrent with psychotic features, rule out dementia with psychosis. PLAN: Treat her with Ativan 2 mg IV q.4 h. p.r.n. anxiety and agitation. I encouraged her to interact appropriately with staff and with the patients. A 20 minutes of behavioral management provided. Continue her on Ativan as needed. She will continue to be followed by Psychiatry throughout hospital course. Chart reviewed. Discussed with the staff. Seen and assessed in the ICU. Omar Glover M.D. DR: RELL JOB#: [id number] CC:
--- NOTE | 2019-05-03 16:27 | NUR ---
Social Service Note Patient received trach today. Upon discharge patient will require a sub-acute unit. Patient's needs cannot be met at [facility]. Will continue to monitor and assist as needed.
--- NOTE | 2019-05-03 16:35 | NUR ---
CASE MANAGEMENT: REVIEW 05/02/2019 SI: ACUTE RESPIRATORY FAILURE ENCEPHALOPATHY. PNA T 98.3 HR 87 RR 12 B/P 159/89 SATS 97% ON MECH VENT IS: IV CEFEPIME Q24 EPOETIN SQ MWF : ICU STATUS INTUBATED 05/03/2019 SI: ACUTE RESPIRATORY FAILURE ENCEPHALOPATHY. PNA T 98 HR 118 RR 12 B/P 152/87 SATS 97% ON MECH VENT FIO2 30% WBC 16.8 BUN 60 CR 1.7 GLU 195 AST 41 IS: IV CEFEPIME Q24 EPOETIN SQ MWF IVF @ 75 mL/HR INSULIN ASPART SUBQ Q6H : ICU STATUS INTUBATED PLAN OF CARE: Pre-op Diagnosis: respiratory insufficiency requiring prolonged ventilatory support Procedure: tracheostomy Post-op Diagnosis: same as pre-op
--- NOTE | 2019-05-03 16:44 | Nephrology Progress Note ---
Assessment/Plan Problem List: (1) Renal failure (ARF), acute on chronic (2) Diabetic nephropathy (3) Sepsis (4) Pneumonia (5) Right hemiplegia (6) Anemia in chronic kidney disease (CKD) (7) Pulmonary hypertension Assessment intubated- Renal failure; - Pre Renal - ? Underlying Renal Anemia Pneumonia / respiratory failure Sepsis elevated Troponin UTI HyperGlycemia / DM Right Esvin HTN Plan due trach 05/03 kayexelate as needed Albumin and lasix one time discussed with RN transfuse for low Hgb as needed K Phos IV as needed venofer Folate 24 H urine protein check 2.4 gram Fraga Hydrate BP and BS control urine studies slow hydrate kidney AMIKEL results noted: No [place] 2D echo Noted visualized except distal setum and inferiro wall hypokinesis Left ventricular ejection fraction estimated to be 55-60 %. avoid Nephrotoxics per orders Subjective ROS Limited/Unobtainable: Yes Objective Objective Last 24 Hour Vital Signs Date Time Temp Pulse Resp B/P (MAP) Pulse Ox O2 Delivery O2 Flow Rate FiO2 05/03/19 16:00 98.0 118 12 152/87 (108) 97 05/03/19 16:00 30 05/03/19 16:00 Mechanical Ventilator 05/03/19 15:19 77 20 100 05/03/19 15:14 80 16 30 05/03/19 14:00 97 12 143/72 (95) 96 05/03/19 13:00 96 12 132/75 (94) 93 05/03/19 12:54 80 16 30 05/03/19 12:00 Mechanical Ventilator 05/03/19 12:00 89 05/03/19 12:00 30 05/03/19 12:00 98.8 91 12 128/75 (92) 97 05/03/19 11:23 90 16 30 05/03/19 11:00 86 12 126/74 (91) 96 05/03/19 10:00 91 12 126/78 (94) 96 05/03/19 09:13 96 16 30 05/03/19 09:00 98 12 125/75 (92) 96 05/03/19 08:00 107 05/03/19 08:00 30 05/03/19 08:00 98.3 104 12 138/77 (97) 97 05/03/19 08:00 Mechanical Ventilator 05/03/19 07:06 103 16 30 05/03/19 07:00 104 10 147/87 (107) 96 05/03/19 06:00 113 20 148/80 (102) 95 05/03/19 05:00 120 13 134/85 (101) 95 05/03/19 05:00 115 18 30 05/03/19 04:00 Mechanical Ventilator 05/03/19 04:00 114 28 142/78 (99) 94 05/03/19 04:00 124 05/03/19 03:22 118 23 30 05/03/19 03:00 121 34 147/89 (108) 94 05/03/19 02:00 97 14 139/72 (94) 96 05/03/19 01:14 177/80 05/03/19 01:00 97 18 30 05/03/19 01:00 105 26 177/99 (125) 97 05/03/19 00:00 Mechanical Ventilator 05/03/19 00:00 92 6 147/85 (105) 97 05/03/19 00:00 91 05/03/19 00:00 30 05/02/19 23:00 88 16 147/85 (105) 98 05/02/19 22:48 82 16 30 05/02/19 22:00 98.3 87 12 159/89 (112) 97 05/02/19 21:00 85 12 161/94 (116) 96 05/02/19 20:57 84 18 30 05/02/19 20:20 86 05/02/19 20:00 30 05/02/19 20:00 89 8 142/84 (103) 98 05/02/19 20:00 Mechanical Ventilator 05/02/19 19:00 84 5 147/90 (109) 98 05/02/19 18:55 88 17 30 05/02/19 18:00 103 0 148/90 (109) 98 05/02/19 17:15 107 20 30 05/02/19 17:00 105 21 164/84 (110) 97 Intake and Output 05/02/19 05/03/19 19:00 07:00 Intake Total 1520 ml 1055 ml Output Total 435 ml 535 ml Balance 1085 ml 520 ml Free Water 300 ml 300 ml IV Total 500 ml 35 ml Tube Feeding 720 ml 720 ml Output Urine Total 435 ml 535 ml # Bowel Movements 3 Laboratory Tests 05/03/19 04:00: White Blood Count 16.8#H, Red Blood Count 3.42L, Hemoglobin 9.8L, Hematocrit 31.3L, Mean Corpuscular Volume 91, Mean Corpuscular Hemoglobin 28.8, Mean Corpuscular Hemoglobin Concent 31.5L, Red Cell Distribution Width 16.0H, Platelet Count 161, Mean Platelet Volume 7.2, Neutrophils (%) (Auto) 79.8H, Lymphocytes (%) (Auto) 13.2L, Monocytes (%) (Auto) 4.8, Eosinophils (%) (Auto) 1.7, Basophils (%) (Auto) 0.4, Prothrombin Time 11.4, Prothromb Time International Ratio 1.1, Activated Partial Thromboplast Time 31, Sodium Level 144, Potassium Level 4.4, Chloride Level 105, Carbon Dioxide Level 27, Anion Gap 12, Blood Urea Nitrogen 60H, Creatinine 1.7H, Estimat Glomerular Filtration Rate , Glucose Level 195H, Calcium Level 8.9, Phosphorus Level 4.2, Magnesium Level 1.9, Total Bilirubin 0.6, Aspartate Amino Transf (AST/SGOT) 41H, Alanine Aminotransferase (ALT/SGPT) 13, Alkaline Phosphatase 113, Total Protein 7.2, Albumin 2.0L, Globulin 5.2, Albumin/Globulin Ratio 0.4L Height (Feet): 5 Height (Inches): 3.00 Weight (Pounds): 187 General Appearance: no apparent distress EENT: other - vented Cardiovascular: tachycardia Respiratory/Chest: decreased breath sounds Abdomen: distended Objective no change Wally Spivey MD May 03, 2019 16:44
[2019-05-03 18:26] LABS: APPEARANCE,URINE SLIGHTLY CLOUDY; BILIRUBIN, URINE NEGATIVE (NEGATIVE); GLUCOSE, URINE (UA) NEGATIVE (NEGATIVE); KETONES,URINE 1+ (NEGATIVE); LEUKOCYTE ESTERASE ,URINE 3+ (NEGATIVE); NITRITE,URINE NEGATIVE (NEGATIVE); PH,URINE 7 (4.5-8.0); PROTEIN,URINE 4+ (NEGATIVE); UROBILINOGEN,URINE 1 MG/DL (0.0-1.0)
--- NOTE | 2019-05-03 18:28 | Cardiac Electrophysiology PN ---
Assessment/Plan Assessment/Plan 1. Atrial flutter, self terminated. Off AVN jose for low BP 2. Hypotension. Off Midodrine now 3. Coronary artery disease. On Plavix 75 mg daily 4. Respiratory failure, intubated EF 60%.S/P Tracheostomy 05/03/19 5. Sepsis. White count 25,000. On IV abx 6. Anemia.S/P PRBC. 7. Renal failure BUN/Cr improved with hydration by Dr. Spivey Got Lasix and albumin and Kayexalate for high K today 8. Dysphagia. S/P PEG 04/22/19 9. History of CVA with hemiplegia. 10. Nonverbal status. 11. Full code DW RN Subjective Subjective Intubated in ICU. S/P Tracheostomy today.Started on Hydralazine Objective Last 24 Hour Vital Signs Date Time Temp Pulse Resp B/P (MAP) Pulse Ox O2 Delivery O2 Flow Rate FiO2 05/03/19 18:00 100 12 128/74 (92) 97 05/03/19 17:24 103 16 30 05/03/19 17:00 103 12 128/74 (92) 96 05/03/19 16:00 98.0 118 12 152/87 (108) 97 05/03/19 16:00 30 05/03/19 16:00 Mechanical Ventilator 05/03/19 16:00 120 05/03/19 15:19 77 20 100 05/03/19 15:14 80 16 30 05/03/19 14:00 97 12 143/72 (95) 96 05/03/19 13:00 96 12 132/75 (94) 93 05/03/19 12:54 80 16 30 05/03/19 12:00 Mechanical Ventilator 05/03/19 12:00 89 05/03/19 12:00 30 05/03/19 12:00 98.8 91 12 128/75 (92) 97 05/03/19 11:23 90 16 30 05/03/19 11:00 86 12 126/74 (91) 96 05/03/19 10:00 91 12 126/78 (94) 96 05/03/19 09:13 96 16 30 05/03/19 09:00 98 12 125/75 (92) 96 05/03/19 08:00 107 05/03/19 08:00 30 05/03/19 08:00 98.3 104 12 138/77 (97) 97 05/03/19 08:00 Mechanical Ventilator 05/03/19 07:06 103 16 30 05/03/19 07:00 104 10 147/87 (107) 96 05/03/19 06:00 113 20 148/80 (102) 95 05/03/19 05:00 120 13 134/85 (101) 95 05/03/19 05:00 115 18 30 05/03/19 04:00 Mechanical Ventilator 05/03/19 04:00 114 28 142/78 (99) 94 05/03/19 04:00 124 05/03/19 03:22 118 23 30 05/03/19 03:00 121 34 147/89 (108) 94 05/03/19 02:00 97 14 139/72 (94) 96 05/03/19 01:14 177/80 05/03/19 01:00 97 18 30 05/03/19 01:00 105 26 177/99 (125) 97 05/03/19 00:00 Mechanical Ventilator 05/03/19 00:00 92 6 147/85 (105) 97 05/03/19 00:00 91 05/03/19 00:00 30 05/02/19 23:00 88 16 147/85 (105) 98 05/02/19 22:48 82 16 30 05/02/19 22:00 98.3 87 12 159/89 (112) 97 05/02/19 21:00 85 12 161/94 (116) 96 05/02/19 20:57 84 18 30 05/02/19 20:20 86 05/02/19 20:00 30 05/02/19 20:00 89 8 142/84 (103) 98 05/02/19 20:00 Mechanical Ventilator 05/02/19 19:00 84 5 147/90 (109) 98 05/02/19 18:55 88 17 30 Intake and Output 05/02/19 05/03/19 18:59 06:59 Intake Total 1520 ml 1020 ml Output Total 445 ml 515 ml Balance 1075 ml 505 ml Free Water 300 ml 300 ml IV Total 500 ml Tube Feeding 720 ml 720 ml Output Urine Total 445 ml 515 ml # Bowel Movements 3 Laboratory Tests Test 05/03/19 04:00 05/03/19 17:30 White Blood Count 16.8 K/UL (4.8-10.8) #H Red Blood Count 3.42 M/UL (4.20-5.40) L Hemoglobin 9.8 G/DL (12.0-16.0) L Hematocrit 31.3 % (37.0-47.0) L Mean Corpuscular Volume 91 FL (80-99) Mean Corpuscular Hemoglobin 28.8 PG (27.0-31.0) Mean Corpuscular Hemoglobin Concent 31.5 G/DL (32.0-36.0) L Red Cell Distribution Width 16.0 % (11.6-14.8) H Platelet Count 161 K/UL (150-450) Mean Platelet Volume 7.2 FL (6.5-10.1) Neutrophils (%) (Auto) 79.8 % (45.0-75.0) H Lymphocytes (%) (Auto) 13.2 % (20.0-45.0) L Monocytes (%) (Auto) 4.8 % (1.0-10.0) Eosinophils (%) (Auto) 1.7 % (0.0-3.0) Basophils (%) (Auto) 0.4 % (0.0-2.0) Prothrombin Time 11.4 SEC (9.30-11.50) Prothromb Time International Ratio 1.1 (0.9-1.1) Activated Partial Thromboplast Time 31 SEC (23-33) Sodium Level 144 MMOL/L (136-145) Potassium Level 4.4 MMOL/L (3.5-5.1) Chloride Level 105 MMOL/L (98-107) Carbon Dioxide Level 27 MMOL/L (21-32) Anion Gap 12 mmol/L (5-15) Blood Urea Nitrogen 60 mg/dL (7-18) H Creatinine 1.7 MG/DL (0.55-1.30) H Estimat Glomerular Filtration Rate mL/min (>60) Glucose Level 195 MG/DL (74-106) H Calcium Level 8.9 MG/DL (8.5-10.1) Phosphorus Level 4.2 MG/DL (2.5-4.9) Magnesium Level 1.9 MG/DL (1.8-2.4) Total Bilirubin 0.6 MG/DL (0.2-1.0) Aspartate Amino Transf (AST/SGOT) 41 U/L (15-37) H Alanine Aminotransferase (ALT/SGPT) 13 U/L (12-78) Alkaline Phosphatase 113 U/L (46-116) Total Protein 7.2 G/DL (6.4-8.2) Albumin 2.0 G/DL (3.4-5.0) L Globulin 5.2 g/dL Albumin/Globulin Ratio 0.4 (1.0-2.7) L Urine Color Pending Urine Appearance Pending Urine pH Pending Urine Specific [place] Pending Urine Protein Pending Urine Glucose (UA) Pending Urine Ketones Pending Urine Blood Pending Urine Nitrite Pending Urine Bilirubin Pending Urine Urobilinogen Pending Urine Leukocyte Esterase Pending Objective HEAD AND NECK: No JVD. S/P tracheostomy LUNGS: Coarse rhonchi bilaterally. CARDIOVASCULAR: Regular S1 and S2 with no gallop. ABDOMEN: Soft.PEG in place EXTREMITIES: No pitting edema. Claude Pena MD May 03, 2019 18:28
[2019-05-03 18:29] LABS: COLOR,URINE YELLOW
--- NOTE | 2019-05-03 18:32 | NUR ---
NURSE NOTES: ADLS DONE,TURNED AND REPOSITIONED.HOB ELEVATED TO PREVENT ASPIRATION.KEPT CLEAN DRY AND COMFORTABLE.WILL CONTINUE TO MONITOR.NO BLEEDING NOTED AT THE TRACHEOSTOMY SITE
--- NOTE | 2019-05-03 19:01 | NUR ---
HAND-OFF: Report given to HORTENCIA CASTRO.
--- NOTE | 2019-05-03 19:10 | NUR ---
NURSE NOTES: Pt report received form [employer], PT appears to be in stable condition, resting in bed. pt is obtunded, pt pupils are round and reactive to light and accommodating sluggish. bilaterally. pt has a child monitor place, showing SR, no other signs symptoms of cardiac compromise noted at this moment. pt is trach to vent with reported settings of shy 8, TV 500, FiO2 30%, PEEP 5, satting at 100% no other signs symptoms of resp distress noted. all safety precautions noted; bed rails up times 3, bed locked and low, bed armed, call light within easy reach. at this moment, L soft restraint is off to assess pt skin and further need of restraint. will continue plan of care.
--- NOTE | 2019-05-03 20:00 | Operative Note - Dictated ---
DATE OF OPERATION: 05/03/2019 PREOPERATIVE DIAGNOSIS: Respiratory insufficiency requiring prolonged ventilatory support. POSTOPERATIVE DIAGNOSIS: Respiratory insufficiency requiring prolonged ventilatory support. OPERATION PERFORMED: Tracheostomy. ATTENDING SURGEON: Devaughn Marin M.D. WHEELCHAIR VAN OPERATOR FIRST RESPONDER: None. ANESTHESIOLOGIST: Rod Martin M.D. ANESTHESIA: General GETA. ESTIMATED BLOOD LOSS: Minimal. IV FLUIDS: Please see anesthesia records. COMPLICATIONS: None. DRAINS: None. SPECIMENS: None. IMPLANTS: An 8-[place]izen [place] Shiley tracheostomy. ANTIBIOTICS: The patient on scheduled IV antibiotics. WOUND CLASSIFICATION: Class 1. INDICATIONS FOR PROCEDURE: This is a 79-year-old female currently admitted to [facility] in the intensive care unit for sometime now with respiratory insufficiency requiring intubation and prolonged ventilatory support. She is intubated for some time now, requiring prolonged ventilatory support. The patient was unable to be weaned off the ventilator for some time now and a long discussion was had with the patient and family in regards to current condition and goals of care. Goals of care have been determined to be continuing with all care measures. The tracheostomy was indicated and recommended. Consent was obtained from the family for procedure, which was scheduled for 05/03/2019. OPERATIVE NOTE: The patient was taken to the operating room, placed on the operative table in supine position with bilateral arms down. All bony prominences well padded. SCDs were placed. The patient already had ET tube, Fraga catheter, and feeding tube prior to entering the operating room. General anesthesia was induced. A shoulder roll was placed. The neck was prepped and draped in standard surgical fashion. Anatomical landmarks were identified. A skin incision was made approximately 2 cm above the sternal notch. Incision was carried down through the subcutaneous tissue and platysma until the median raphae was identified. Median raphae was divided and the muscles were retracted laterally. The tracheal notch was identified and tracheal hook was placed. The first and second tracheal rings were clearly identified and dissected out. A window was made in the first and second tracheal rings and the ET tube was identified. With the assistance of the anesthesiologist, the balloon of the ET tube was desufflated and gently withdrawn. Once the tip was seen at the top of the window, 8-[place] Shiley tracheostomy was inserted under direct visualization without complication. The tracheostomy balloon was insufflated and the patient was ventilated through tracheostomy with good end-tidal CO2 and volumes. At this time, the wound was irrigated and cleansed. The skin incision was reapproximated using 2-0 Monocryl interrupted sutures. A trach tie and dressings were applied. The patient tolerated procedure well was taken directly to the intensive care unit in stable condition. Devaughn Marin M.D. DR: Uma JOB#: [id number] CC:
[2019-05-03] MEDS: Dyna-Hex 2% Top Sol 2oz TOPIC SCH (20:24)
[2019-05-03] MEDS: Epoetin Alfa-EPBX (NON ESRD)10,000 unit/ml vial SUBQ SCH (20:35)
[2019-05-03] MEDS ORDERED: NS 275ml ONE (21:00)
--- NOTE | 2019-05-03 21:00 | NUR ---
NURSE NOTES:Turned and suctioned moderate amt of beige secretions.
--- NOTE | 2019-05-03 21:09 | General Progress Note ---
Assessment/Plan Problem List: (1) Respiratory distress ICD Codes: R06.03 - Acute respiratory distress SNOMED: 092383479 (2) UTI (urinary tract infection) ICD Codes: N39.0 - Urinary tract infection, site not specified SNOMED: 50216774 (3) Diabetic nephropathy ICD Codes: E11.21 - Type 2 diabetes mellitus with diabetic nephropathy SNOMED: 416290544 (4) Renal failure (ARF), acute on chronic ICD Codes: N17.9 - Acute kidney failure, unspecified; N18.9 - Chronic kidney disease, unspecified SNOMED: 002036772 (5) Anemia in chronic kidney disease (CKD) ICD Codes: N18.9 - Chronic kidney disease, unspecified; D63.1 - Anemia in chronic kidney disease SNOMED: 464395781 (6) Pulmonary hypertension ICD Codes: I27.20 - Pulmonary hypertension, unspecified SNOMED: 32362796 (7) Acute respiratory failure ICD Codes: J96.00 - Acute respiratory failure, unspecified whether with hypoxia or hypercapnia SNOMED: 56426471 (8) Sepsis ICD Codes: A41.9 - Sepsis, unspecified organism SNOMED: 23057616 (9) Pneumonia ICD Codes: J18.9 - Pneumonia, unspecified organism SNOMED: 750023038 Qualifiers: Qualified Codes: J18.9 - Pneumonia, unspecified organism (10) History of CVA (cerebrovascular accident) ICD Codes: Z86.73 - Personal history of transient ischemic attack (TIA), and cerebral infarction without residual deficits SNOMED: 552575358 (11) CAD (coronary artery disease) ICD Codes: I25.10 - Atherosclerotic heart disease of [place] coronary artery without angina pectoris SNOMED: 51818733 (12) Diabetes mellitus ICD Codes: E11.9 - Type 2 diabetes mellitus without complications SNOMED: 98332100 (13) Hypertensive heart disease ICD Codes: I11.9 - Hypertensive heart disease without heart failure SNOMED: 96904267 (14) Nosocomial pneumonia ICD Codes: J18.9 - Pneumonia, unspecified organism; Y95 - Nosocomial condition SNOMED: 981221594 (15) Acute metabolic encephalopathy ICD Codes: G93.41 - Metabolic encephalopathy SNOMED: 46238696, 313517659 Status: unchanged Assessment/Plan: niddm htn sepsis and pna afebrile not improving bp improving not hypoxic Subjective ROS Limited/Unobtainable: Yes Allergies: Coded Allergies: No Known Allergies (Unverified , 04/12/19) Objective Last 24 Hour Vital Signs Date Time Temp Pulse Resp B/P (MAP) Pulse Ox O2 Delivery O2 Flow Rate FiO2 05/03/19 20:00 99.3 82 14 124/68 (86) 98 05/03/19 20:00 Mechanical Ventilator 05/03/19 20:00 30 05/03/19 19:25 84 16 30 30 05/03/19 19:00 90 14 134/65 (88) 98 05/03/19 18:00 100 12 128/74 (92) 97 05/03/19 17:24 103 16 30 05/03/19 17:00 103 12 128/74 (92) 96 05/03/19 16:00 98.0 118 12 152/87 (108) 97 05/03/19 16:00 30 05/03/19 16:00 Mechanical Ventilator 05/03/19 16:00 120 05/03/19 15:19 77 20 100 05/03/19 15:14 80 16 30 05/03/19 14:00 97 12 143/72 (95) 96 05/03/19 13:00 96 12 132/75 (94) 93 05/03/19 12:54 80 16 30 05/03/19 12:00 Mechanical Ventilator 05/03/19 12:00 89 05/03/19 12:00 30 05/03/19 12:00 98.8 91 12 128/75 (92) 97 05/03/19 11:23 90 16 30 05/03/19 11:00 86 12 126/74 (91) 96 05/03/19 10:00 91 12 126/78 (94) 96 05/03/19 09:13 96 16 30 05/03/19 09:00 98 12 125/75 (92) 96 05/03/19 08:00 107 05/03/19 08:00 30 05/03/19 08:00 98.3 104 12 138/77 (97) 97 05/03/19 08:00 Mechanical Ventilator 05/03/19 07:06 103 16 30 05/03/19 07:00 104 10 147/87 (107) 96 05/03/19 06:00 113 20 148/80 (102) 95 05/03/19 05:00 120 13 134/85 (101) 95 05/03/19 05:00 115 18 30 05/03/19 04:00 Mechanical Ventilator 05/03/19 04:00 114 28 142/78 (99) 94 05/03/19 04:00 124 05/03/19 03:22 118 23 30 05/03/19 03:00 121 34 147/89 (108) 94 05/03/19 02:00 97 14 139/72 (94) 96 05/03/19 01:14 177/80 05/03/19 01:00 97 18 30 05/03/19 01:00 105 26 177/99 (125) 97 05/03/19 00:00 Mechanical Ventilator 05/03/19 00:00 92 6 147/85 (105) 97 05/03/19 00:00 91 05/03/19 00:00 30 05/02/19 23:00 88 16 147/85 (105) 98 05/02/19 22:48 82 16 30 05/02/19 22:00 98.3 87 12 159/89 (112) 97 Intake and Output 05/02/19 05/03/19 18:59 06:59 Intake Total 1520 ml 1020 ml Output Total 445 ml 515 ml Balance 1075 ml 505 ml Free Water 300 ml 300 ml IV Total 500 ml Tube Feeding 720 ml 720 ml Output Urine Total 445 ml 515 ml # Bowel Movements 3 Laboratory Tests 05/03/19 04:00: White Blood Count 16.8#H, Red Blood Count 3.42L, Hemoglobin 9.8L, Hematocrit 31.3L, Mean Corpuscular Volume 91, Mean Corpuscular Hemoglobin 28.8, Mean Corpuscular Hemoglobin Concent 31.5L, Red Cell Distribution Width 16.0H, Platelet Count 161, Mean Platelet Volume 7.2, Neutrophils (%) (Auto) 79.8H, Lymphocytes (%) (Auto) 13.2L, Monocytes (%) (Auto) 4.8, Eosinophils (%) (Auto) 1.7, Basophils (%) (Auto) 0.4, Prothrombin Time 11.4, Prothromb Time International Ratio 1.1, Activated Partial Thromboplast Time 31, Sodium Level 144, Potassium Level 4.4, Chloride Level 105, Carbon Dioxide Level 27, Anion Gap 12, Blood Urea Nitrogen 60H, Creatinine 1.7H, Estimat Glomerular Filtration Rate , Glucose Level 195H, Calcium Level 8.9, Phosphorus Level 4.2, Magnesium Level 1.9, Total Bilirubin 0.6, Aspartate Amino Transf (AST/SGOT) 41H, Alanine Aminotransferase (ALT/SGPT) 13, Alkaline Phosphatase 113, Total Protein 7.2, Albumin 2.0L, Globulin 5.2, Albumin/Globulin Ratio 0.4L 05/03/19 17:30: Urine Color Yellow, Urine Appearance Slightly cloudy, Urine pH 7, Urine Specific [place] 1.010, Urine Protein 4+H, Urine Glucose (UA) Negative, Urine Ketones 1+H, Urine Blood 5+H, Urine Nitrite Negative, Urine Bilirubin Negative, Urine Urobilinogen 1H, Urine Leukocyte Esterase 3+H, Urine RBC 2-4H, Urine WBC 2 -4, Urine Squamous Epithelial Cells Few, Urine Bacteria Few, Urine Fine Granular Casts 0-2H Height (Feet): 5 Height (Inches): 3.00 Weight (Pounds): 187 Cardiovascular: normal rate Respiratory/Chest: lungs clear Abdomen: soft Glendy Taylor MD May 03, 2019 21:09
--- NOTE | 2019-05-03 23:30 | NUR ---
NURSE NOTES:VSS, afebrile, no Resp. distress noted.
[2019-05-04] VITALS (19 sets, daily range): BP systolic 128–169; BP diastolic 67–94
--- NOTE | 2019-05-04 02:00 | NUR ---
NURSE NOTES: Pt is resting comfortably in bed, satting at 100%. no abnormalities noted at this moment. pt was turned. oral care given.
--- NOTE | 2019-05-04 04:00 | NUR ---
NURSE NOTES:complete bed bath with bed changed done.
[2019-05-04] MEDS: NovoLOG Insulin Flexpen SUBQ SCH ×4 (05:27→23:57)
[2019-05-04 05:51] LABS: BASOPHILS % (AUTO) 0.4 % (0.0-2.0); EOSINOPHILS % (AUTO) 1.6 % (0.0-3.0); HEMATOCRIT 25.9 % (37.0-47.0); HEMOGLOBIN 8.2 G/DL (12.0-16.0); LYMPHOCYTES % (AUTO) 16.5 % (20.0-45.0); MEAN CORPUSCULAR VOLUME 91 FL (80-99); MONOCYTES % (AUTO) 5.5 % (1.0-10.0); NEUTROPHILS % (AUTO) 75.9 % (45.0-75.0); PLATELET COUNT 158 K/UL (150-450); RED BLOOD COUNT 2.84 M/UL (4.20-5.40); RED CELL DISTRIBUTION WIDTH 16.1 % (11.6-14.8); WHITE BLOOD COUNT 10.7 K/UL (4.8-10.8)
--- NOTE | 2019-05-04 06:00 | NUR ---
NURSE NOTES:Pts not pulling out, Discontinued restraints,
[2019-05-04 06:30] LABS: ALANINE AMINOTRANSFERASE 10 U/L (12-78); ALBUMIN 1.6 G/DL (3.4-5.0); ALBUMIN/GLOBULIN RATIO 0.3 (1.0-2.7); ALKALINE PHOSPHATASE 75 U/L (46-116); ANION GAP 12 mmol/L (5-15); ASPARTATE AMINO TRANSFERASE 32 U/L (15-37); BILIRUBIN,TOTAL 0.6 MG/DL (0.2-1.0); BLOOD UREA NITROGEN 58 mg/dL (7-18); CALCIUM 8.7 MG/DL (8.5-10.1); CARBON DIOXIDE 26 MMOL/L (21-32); CHLORIDE 112 MMOL/L (98-107); CREATININE 1.8 MG/DL (0.55-1.30); PHOSPHORUS 4.8 MG/DL (2.5-4.9); POTASSIUM 4.1 MMOL/L (3.5-5.1); SODIUM 150 MMOL/L (136-145)
--- NOTE | 2019-05-04 07:00 | NUR ---
RESPIRATORY NOTES: Received patient on ventilator settings of ACVC RR 16, VT 500, FIO2 30%, PEEP +5. Patient trached with a [place] 8 tracheostomy tube, secured with trach ties. Bilateral rhonchi breath sounds noted. Suction minimal amounts of thin white clear secretions through the trach and through the mouth. Vent plugged into red outlet. Alarms are on and audible. Will continue to closely monitor throughout the day.
--- NOTE | 2019-05-04 07:25 | NUR ---
HAND-OFF: Report given to [facility] ICU.
--- NOTE | 2019-05-04 07:30 | NUR ---
NURSE NOTES: Report received from Bharath Bryant RN.Pt resting in bed awake,alert,but unable to follow command,noted no resp distress ,with trach tube to Vent settings AC16,TV 500,Fio2 30%,Peep 5.no signs of pain or discomfort ,SR on the monitor,GTF clamped,Fraga cath draining yellow urine,IV site to SUZIE PICC line intact with IVF NS at 75 ml/hr,Rt cheek with skin tear,SR up x2 HOB elevated ,bed lock in lowest position,will continue with plans of care.
--- NOTE | 2019-05-04 08:25 | NUR ---
NURSE NOTES:WOUND CARE FOLLOW-UP NOTES:Pt noted to have medical adhesive related skin injury R cheek. Elongated cat 2 skin tear with 80% skin flap in situ. NO exudate or periwound erythema noted.
--- NOTE | 2019-05-04 08:32 | General Progress Note ---
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 ICD Codes: E11.22 - Type 2 diabetes mellitus with diabetic chronic kidney disease; N18.4 - Chronic kidney disease, stage 4 (severe) SNOMED: 55659847, 580925840, 276718160 (3) Diabetes mellitus ICD Codes: E11.9 - Type 2 diabetes mellitus without complications SNOMED: 96545759 (4) CAD (coronary artery disease) ICD Codes: I25.10 - Atherosclerotic heart disease of [place] coronary artery without angina pectoris SNOMED: 84263448 (5) History of CVA (cerebrovascular accident) ICD Codes: Z86.73 - Personal history of transient ischemic attack (TIA), and cerebral infarction without residual deficits SNOMED: 264993324 (6) Anemia in chronic kidney disease (CKD) ICD Codes: N18.9 - Chronic kidney disease, unspecified; D63.1 - Anemia in chronic kidney disease SNOMED: 658260298 (7) Diabetic nephropathy ICD Codes: E11.21 - Type 2 diabetes mellitus with diabetic nephropathy SNOMED: 644596371 Status: unchanged Assessment/Plan: intubated GTF fu labs fu pulm recs prn blood transfusion pending trach ppi Subjective ROS Limited/Unobtainable: No Allergies: Coded Allergies: No Known Allergies (Unverified , 04/12/19) Objective Last 24 Hour Vital Signs Date Time Temp Pulse Resp B/P (MAP) Pulse Ox O2 Delivery O2 Flow Rate FiO2 05/04/19 07:05 87 16 30 05/04/19 07:00 91 16 155/94 (114) 98 05/04/19 06:00 98.6 78 16 152/85 (107) 99 05/04/19 05:29 76 16 30 30 05/04/19 05:00 98.6 83 16 149/83 (105) 99 05/04/19 04:00 98.6 83 17 153/89 (110) 99 05/04/19 04:00 Mechanical Ventilator 05/04/19 04:00 Mechanical Ventilator 05/04/19 04:00 30 05/04/19 04:00 86 05/04/19 03:00 98.5 87 17 157/82 (107) 100 05/04/19 02:00 98.2 85 17 145/79 (101) 100 05/04/19 01:22 93 16 30 30 05/04/19 01:00 98.9 90 16 155/79 (104) 100 05/04/19 00:00 30 05/04/19 00:00 Mechanical Ventilator 05/04/19 00:00 88 05/04/19 00:00 98.6 95 16 132/82 (99) 100 05/03/19 23:04 96 16 30 30 05/03/19 23:00 98.9 95 15 147/85 (105) 100 05/03/19 22:00 98.5 87 15 142/80 (100) 100 05/03/19 21:10 97 16 30 30 05/03/19 21:00 99.0 99 15 132/76 (94) 100 05/03/19 20:00 99.3 82 14 124/68 (86) 98 05/03/19 20:00 Mechanical Ventilator 05/03/19 20:00 30 05/03/19 20:00 88 05/03/19 19:25 84 16 30 30 05/03/19 19:00 90 14 134/65 (88) 98 05/03/19 18:00 100 12 128/74 (92) 97 05/03/19 17:24 103 16 30 05/03/19 17:00 103 12 128/74 (92) 96 05/03/19 16:00 98.0 118 12 152/87 (108) 97 05/03/19 16:00 30 05/03/19 16:00 Mechanical Ventilator 05/03/19 16:00 120 05/03/19 15:19 77 20 100 05/03/19 15:14 80 16 30 05/03/19 14:00 97 12 143/72 (95) 96 05/03/19 13:00 96 12 132/75 (94) 93 05/03/19 12:54 80 16 30 05/03/19 12:00 Mechanical Ventilator 05/03/19 12:00 89 05/03/19 12:00 30 05/03/19 12:00 98.8 91 12 128/75 (92) 97 05/03/19 11:23 90 16 30 05/03/19 11:00 86 12 126/74 (91) 96 05/03/19 10:00 91 12 126/78 (94) 96 05/03/19 09:13 96 16 30 05/03/19 09:00 98 12 125/75 (92) 96 Intake and Output 05/03/19 05/04/19 19:00 07:00 Intake Total 975 ml 825 ml Output Total 390 ml 395 ml Balance 585 ml 430 ml Free Water 150 ml IV Total 825 ml 825 ml Output Urine Total 390 ml 395 ml # Bowel Movements 3 4 Laboratory Tests 05/03/19 17:30: Urine Color Yellow, Urine Appearance Slightly cloudy, Urine pH 7, Urine Specific [place] 1.010, Urine Protein 4+H, Urine Glucose (UA) Negative, Urine Ketones 1+H, Urine Blood 5+H, Urine Nitrite Negative, Urine Bilirubin Negative, Urine Urobilinogen 1H, Urine Leukocyte Esterase 3+H, Urine RBC 2-4H, Urine WBC 2 -4, Urine Squamous Epithelial Cells Few, Urine Bacteria Few, Urine Fine Granular Casts 0-2H 05/04/19 05:05: White Blood Count 10.7, Red Blood Count 2.84L, Hemoglobin 8.2L, Hematocrit 25.9L , Mean Corpuscular Volume 91, Mean Corpuscular Hemoglobin 28.9, Mean Corpuscular Hemoglobin Concent 31.7L, Red Cell Distribution Width 16.1H, Platelet Count 158, Mean Platelet Volume 7.2, Neutrophils (%) (Auto) 75.9H, Lymphocytes (%) (Auto) 16.5L, Monocytes (%) (Auto) 5.5, Eosinophils (%) (Auto) 1.6, Basophils (%) (Auto) 0.4, Sodium Level 150H, Potassium Level 4.1, Chloride Level 112H, Carbon Dioxide Level 26, Anion Gap 12, Blood Urea Nitrogen 58H, Creatinine 1.8H, Estimat Glomerular Filtration Rate , Glucose Level 116H, Calcium Level 8.7, Phosphorus Level 4.8, Magnesium Level 1.9, Total Bilirubin 0.6, Aspartate Amino Transf (AST/SGOT) 32, Alanine Aminotransferase (ALT/SGPT) 10L, Alkaline Phosphatase 75, Total Protein 6.4, Albumin 1.6L, Globulin 4.8, Albumin/Globulin Ratio 0.3L Height (Feet): 5 Height (Inches): 3.00 Weight (Pounds): 188 General Appearance: no apparent distress EENT: PERRL/EOMI Neck: supple Cardiovascular: normal rate Respiratory/Chest: decreased breath sounds Abdomen: normal bowel sounds, non tender, soft Extremities: non-tender Darron Gentile MD May 04, 2019 08:32
--- NOTE | 2019-05-04 09:30 | NUR ---
NURSE NOTES: Oral care done ,pulled up and turned for alignment function.
--- NOTE | 2019-05-04 10:22 | Nephrology Progress Note ---
Assessment/Plan Problem List: (1) Renal failure (ARF), acute on chronic (2) Diabetic nephropathy (3) Sepsis (4) Pneumonia (5) Right hemiplegia (6) Anemia in chronic kidney disease (CKD) (7) Pulmonary hypertension Assessment intubated- Renal failure; - Pre Renal - ? Underlying Renal Anemia Pneumonia / respiratory failure Sepsis elevated Troponin UTI HyperGlycemia / DM Right Esvin HTN Plan trach 05/03 done kayexelate as needed discussed with RN transfuse for low Hgb as needed K Phos IV as needed venofer Folate 24 H urine protein check 2.4 gram Fraga Hydrate BP and BS control urine studies slow hydrate kidney MAIKEL results noted: No [place] 2D echo Noted visualized except distal setum and inferiro wall hypokinesis Left ventricular ejection fraction estimated to be 55-60 %. avoid Nephrotoxics per orders Subjective ROS Limited/Unobtainable: Yes Objective Objective Last 24 Hour Vital Signs Date Time Temp Pulse Resp B/P (MAP) Pulse Ox O2 Delivery O2 Flow Rate FiO2 05/04/19 08:48 89 16 30 05/04/19 07:05 87 16 30 05/04/19 07:00 91 16 155/94 (114) 98 05/04/19 06:00 98.6 78 16 152/85 (107) 99 05/04/19 05:29 76 16 30 30 05/04/19 05:00 98.6 83 16 149/83 (105) 99 05/04/19 04:00 98.6 83 17 153/89 (110) 99 05/04/19 04:00 Mechanical Ventilator 05/04/19 04:00 Mechanical Ventilator 05/04/19 04:00 30 05/04/19 04:00 86 05/04/19 03:00 98.5 87 17 157/82 (107) 100 05/04/19 02:00 98.2 85 17 145/79 (101) 100 05/04/19 01:22 93 16 30 30 05/04/19 01:00 98.9 90 16 155/79 (104) 100 05/04/19 00:00 30 05/04/19 00:00 Mechanical Ventilator 05/04/19 00:00 88 05/04/19 00:00 98.6 95 16 132/82 (99) 100 05/03/19 23:04 96 16 30 30 05/03/19 23:00 98.9 95 15 147/85 (105) 100 05/03/19 22:00 98.5 87 15 142/80 (100) 100 05/03/19 21:10 97 16 30 30 05/03/19 21:00 99.0 99 15 132/76 (94) 100 05/03/19 20:00 99.3 82 14 124/68 (86) 98 05/03/19 20:00 Mechanical Ventilator 05/03/19 20:00 30 05/03/19 20:00 88 05/03/19 19:25 84 16 30 30 05/03/19 19:00 90 14 134/65 (88) 98 05/03/19 18:00 100 12 128/74 (92) 97 05/03/19 17:24 103 16 30 05/03/19 17:00 103 12 128/74 (92) 96 05/03/19 16:00 98.0 118 12 152/87 (108) 97 05/03/19 16:00 30 05/03/19 16:00 Mechanical Ventilator 05/03/19 16:00 120 05/03/19 15:19 77 20 100 05/03/19 15:14 80 16 30 05/03/19 14:00 97 12 143/72 (95) 96 05/03/19 13:00 96 12 132/75 (94) 93 05/03/19 12:54 80 16 30 05/03/19 12:00 Mechanical Ventilator 05/03/19 12:00 89 05/03/19 12:00 30 05/03/19 12:00 98.8 91 12 128/75 (92) 97 05/03/19 11:23 90 16 30 05/03/19 11:00 86 12 126/74 (91) 96 Intake and Output 05/03/19 05/04/19 18:59 06:59 Intake Total 845 ml 1050 ml Output Total 410 ml 375 ml Balance 435 ml 675 ml Free Water 150 ml IV Total 785 ml 900 ml Tube Feeding 60 ml Output Urine Total 410 ml 375 ml # Bowel Movements 3 4 Laboratory Tests 05/03/19 17:30: Urine Color Yellow, Urine Appearance Slightly cloudy, Urine pH 7, Urine Specific [place] 1.010, Urine Protein 4+H, Urine Glucose (UA) Negative, Urine Ketones 1+H, Urine Blood 5+H, Urine Nitrite Negative, Urine Bilirubin Negative, Urine Urobilinogen 1H, Urine Leukocyte Esterase 3+H, Urine RBC 2-4H, Urine WBC 2 -4, Urine Squamous Epithelial Cells Few, Urine Bacteria Few, Urine Fine Granular Casts 0-2H 05/04/19 05:05: White Blood Count 10.7, Red Blood Count 2.84L, Hemoglobin 8.2L, Hematocrit 25.9L , Mean Corpuscular Volume 91, Mean Corpuscular Hemoglobin 28.9, Mean Corpuscular Hemoglobin Concent 31.7L, Red Cell Distribution Width 16.1H, Platelet Count 158, Mean Platelet Volume 7.2, Neutrophils (%) (Auto) 75.9H, Lymphocytes (%) (Auto) 16.5L, Monocytes (%) (Auto) 5.5, Eosinophils (%) (Auto) 1.6, Basophils (%) (Auto) 0.4, Sodium Level 150H, Potassium Level 4.1, Chloride Level 112H, Carbon Dioxide Level 26, Anion Gap 12, Blood Urea Nitrogen 58H, Creatinine 1.8H, Estimat Glomerular Filtration Rate , Glucose Level 116H, Calcium Level 8.7, Phosphorus Level 4.8, Magnesium Level 1.9, Total Bilirubin 0.6, Aspartate Amino Transf (AST/SGOT) 32, Alanine Aminotransferase (ALT/SGPT) 10L, Alkaline Phosphatase 75, Total Protein 6.4, Albumin 1.6L, Globulin 4.8, Albumin/Globulin Ratio 0.3L 05/04/19 08:38: Arterial Blood pH 7.503H, Arterial Blood Partial Pressure CO2 32.9L, Arterial Blood Partial Pressure O2 57.7L, Arterial Blood HCO3 25.3, Arterial Blood Oxygen Saturation 89.4*L, Arterial Blood Base Excess 2.3H, Marlo Test Positive Height (Feet): 5 Height (Inches): 3.00 Weight (Pounds): 188 EENT: other - trached Respiratory/Chest: decreased breath sounds Abdomen: distended Objective no change Wally Spivey MD May 04, 2019 10:22
--- NOTE | 2019-05-04 10:24 | Infectious Diseases Prog Note ---
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 PNA, sp Rx Pulmonary edema -04/26 CXR: Suspect slightly increased interstitial and airspace edema, over 2 days.Possibly improving small right pleural effusion -04/19 CXR: There is less pulmonary edema compared to yesterday but with moderate residual edema. -04/16 CXR: . Right perihilar and bilateral lower lobe pulmonary consolidation concerning for pneumonia.Small bilateral pleural effusions. CXR - B/L Infiltrates Low grade fevers; SP WBCs up to 25; recurrent-- resolved -05/03 u/a neg Cdiff neg -04/24 Cdiff eng 04/16 Sp Cx - C. alb; 04/19 spC. albicans (colonizer) -BCx NTD -legionella ag urine neg Widened mediastinum - right sided aortic arch CXR - Apparent upper mediastinal widening. Possibly due to ectatic vasculature and body habitus, but upper mediastinal mass also possible. Correlate with any prior adiographs and may be available, consider CT for further evaluation if clinically indicated CT 04/13/19 - Right-sided aortic arch, presumably accounting for the apparent upper mediastinal widening demonstrated on recent plain radiograph. No evidence of upper mediastinal mass. Extensive bilateral lower lobe consolidation , likely pneumonia, less extensive left upper lobe consolidation. 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 CKD CAD PLAN Continue to monitor off abx for now -low threshold to resume abx -04/28 SP Cefepime #6 -04/22 SP Meropenem #5 -04/20 SP Vancomycin #8 - 04/18/19 S/P Cefepime #6 - f/u cultures - Monitor CBC and Temps -f/u ucx, Bcx x2, Sp cx Thank you for this consult. We will continue to follow the patient during this hospitalization. Subjective Allergies: Coded Allergies: No Known Allergies (Unverified , 04/12/19) Subjective afebrile leukocytosis resolved off abx Objective Vital Signs Last 24 Hour Vital Signs Date Time Temp Pulse Resp B/P (MAP) Pulse Ox O2 Delivery O2 Flow Rate FiO2 05/04/19 08:48 89 16 30 05/04/19 07:05 87 16 30 05/04/19 07:00 91 16 155/94 (114) 98 05/04/19 06:00 98.6 78 16 152/85 (107) 99 05/04/19 05:29 76 16 30 30 05/04/19 05:00 98.6 83 16 149/83 (105) 99 05/04/19 04:00 98.6 83 17 153/89 (110) 99 05/04/19 04:00 Mechanical Ventilator 05/04/19 04:00 Mechanical Ventilator 05/04/19 04:00 30 05/04/19 04:00 86 05/04/19 03:00 98.5 87 17 157/82 (107) 100 05/04/19 02:00 98.2 85 17 145/79 (101) 100 05/04/19 01:22 93 16 30 30 05/04/19 01:00 98.9 90 16 155/79 (104) 100 05/04/19 00:00 30 05/04/19 00:00 Mechanical Ventilator 05/04/19 00:00 88 05/04/19 00:00 98.6 95 16 132/82 (99) 100 05/03/19 23:04 96 16 30 30 05/03/19 23:00 98.9 95 15 147/85 (105) 100 05/03/19 22:00 98.5 87 15 142/80 (100) 100 05/03/19 21:10 97 16 30 30 05/03/19 21:00 99.0 99 15 132/76 (94) 100 05/03/19 20:00 99.3 82 14 124/68 (86) 98 05/03/19 20:00 Mechanical Ventilator 05/03/19 20:00 30 05/03/19 20:00 88 05/03/19 19:25 84 16 30 30 05/03/19 19:00 90 14 134/65 (88) 98 05/03/19 18:00 100 12 128/74 (92) 97 05/03/19 17:24 103 16 30 05/03/19 17:00 103 12 128/74 (92) 96 05/03/19 16:00 98.0 118 12 152/87 (108) 97 05/03/19 16:00 30 05/03/19 16:00 Mechanical Ventilator 05/03/19 16:00 120 05/03/19 15:19 77 20 100 05/03/19 15:14 80 16 30 05/03/19 14:00 97 12 143/72 (95) 96 05/03/19 13:00 96 12 132/75 (94) 93 05/03/19 12:54 80 16 30 05/03/19 12:00 Mechanical Ventilator 05/03/19 12:00 89 05/03/19 12:00 30 05/03/19 12:00 98.8 91 12 128/75 (92) 97 05/03/19 11:23 90 16 30 05/03/19 11:00 86 12 126/74 (91) 96 Height (Feet): 5 Height (Inches): 3.00 Weight (Pounds): 188 Objective Gen: Awake and talking HEENT: NCAT, MMM, EOMI LUNGS: CTAB, No W CARDS: RRR, S1, S2, No M/R/G, ABD: Soft, NT, ND Microbiology Date/Time Source Procedure Growth Status 05/04/19 06:00 Stool Clostridium difficile Toxin Assay - Final Complete Laboratory Tests Test 05/03/19 17:30 05/04/19 05:05 05/04/19 08:38 Urine Color Yellow Urine Appearance Slightly cloudy Urine pH 7 (4.5-8.0) Urine Specific [place] 1.010 (1.005-1.035) Urine Protein 4+ (NEGATIVE) H Urine Glucose (UA) Negative (NEGATIVE) Urine Ketones 1+ (NEGATIVE) H Urine Blood 5+ (NEGATIVE) H Urine Nitrite Negative (NEGATIVE) Urine Bilirubin Negative (NEGATIVE) Urine Urobilinogen 1 MG/DL (0.0-1.0) H Urine Leukocyte Esterase 3+ (NEGATIVE) H Urine RBC 2-4 /HPF (0 - 2) H Urine WBC 2-4 /HPF (0 - 2) Urine Squamous Epithelial Cells Few /LPF (NONE/OCC) Urine Bacteria Few /HPF (NONE) Urine Fine Granular Casts 0-2 /LPF (NONE) H White Blood Count 10.7 K/UL (4.8-10.8) Red Blood Count 2.84 M/UL (4.20-5.40) L Hemoglobin 8.2 G/DL (12.0-16.0) L Hematocrit 25.9 % (37.0-47.0) L Mean Corpuscular Volume 91 FL (80-99) Mean Corpuscular Hemoglobin 28.9 PG (27.0-31.0) Mean Corpuscular Hemoglobin Concent 31.7 G/DL (32.0-36.0) L Red Cell Distribution Width 16.1 % (11.6-14.8) H Platelet Count 158 K/UL (150-450) Mean Platelet Volume 7.2 FL (6.5-10.1) Neutrophils (%) (Auto) 75.9 % (45.0-75.0) H Lymphocytes (%) (Auto) 16.5 % (20.0-45.0) L Monocytes (%) (Auto) 5.5 % (1.0-10.0) Eosinophils (%) (Auto) 1.6 % (0.0-3.0) Basophils (%) (Auto) 0.4 % (0.0-2.0) Sodium Level 150 MMOL/L (136-145) H Potassium Level 4.1 MMOL/L (3.5-5.1) Chloride Level 112 MMOL/L (98-107) H Carbon Dioxide Level 26 MMOL/L (21-32) Anion Gap 12 mmol/L (5-15) Blood Urea Nitrogen 58 mg/dL (7-18) H Creatinine 1.8 MG/DL (0.55-1.30) H Estimat Glomerular Filtration Rate mL/min (>60) Glucose Level 116 MG/DL (74-106) H Calcium Level 8.7 MG/DL (8.5-10.1) Phosphorus Level 4.8 MG/DL (2.5-4.9) Magnesium Level 1.9 MG/DL (1.8-2.4) Total Bilirubin 0.6 MG/DL (0.2-1.0) Aspartate Amino Transf (AST/SGOT) 32 U/L (15-37) Alanine Aminotransferase (ALT/SGPT) 10 U/L (12-78) L Alkaline Phosphatase 75 U/L (46-116) Total Protein 6.4 G/DL (6.4-8.2) Albumin 1.6 G/DL (3.4-5.0) L Globulin 4.8 g/dL Albumin/Globulin Ratio 0.3 (1.0-2.7) L Arterial Blood pH 7.503 (7.350-7.450) Arterial Blood Partial Pressure CO2 32.9 mmHg (35.0-45.0) L Arterial Blood Partial Pressure O2 57.7 mmHg (75.0-100.0) L Arterial Blood HCO3 25.3 mmol/L (22.0-26.0) Arterial Blood Oxygen Saturation 89.4 % (95-100) *L Arterial Blood Base Excess 2.3 (-2-2) H Marlo Test Positive Current Medications Medications (Trade) Dose Ordered Sig/Kenisha Route PRN Reason Start Time Stop Time Status Last Admin Dose Admin Acetaminophen (Tylenol) 650 mg Q4H PRN ORAL FEVER 04/17/19 12:36 05/17/19 12:35 05/03/19 01:10 Acetaminophen (Tylenol) 650 mg Q4H PRN RECTAL Fever 04/17/19 12:36 05/17/19 12:35 04/18/19 08:53 Chlorhexidine Gluconate (Izzy-Hex 2%) 1 applic DAILY@2000 TOPIC 04/20/19 20:00 05/20/19 19:59 05/03/19 20:24 Dextrose (Dextrose 50%) 25 ml Q30M PRN IV Hypoglycemia 04/17/19 12:45 05/12/19 19:44 Dextrose (Dextrose 50%) 50 ml Q30M PRN IV Hypoglycemia 04/17/19 12:45 05/12/19 19:44 Epoetin Bandar (Epoetin Bandar-EPBX(NON ESRD)) 10,000 unit FRI-FRI-FRI SUBQ 04/28/19 21:00 05/28/19 20:59 05/03/19 20:35 Folic Acid (Folate) 1 mg DAILY ORAL 04/26/19 09:00 05/19/19 08:59 05/04/19 09:07 Hydralazine HCl (Apresoline) 10 mg Q2H PRN IV SBP > 170 mmHg 05/02/19 17:30 06/01/19 07:29 05/03/19 01:14 Insulin Aspart (NovoLOG) Q6HR SUBQ 04/20/19 18:00 05/20/19 17:59 05/04/19 05:27 Lansoprazole (Prevacid) 30 mg DAILY GT 04/22/19 09:00 05/22/19 08:59 05/04/19 09:07 Midodrine (Pro-Amatine) 10 mg Q8H PRN NG bp below 100 syst 05/02/19 12:00 06/01/19 11:59 Ondansetron HCl (Zofran) 4 mg Q6H PRN IVP Nausea & Vomiting 04/17/19 12:37 05/17/19 12:36 Polyethylene Glycol (Miralax) 17 gm DAILYPRN PRN ORAL Constipation 04/17/19 12:37 05/17/19 12:36 04/23/19 10:31 Sodium Chloride 1,000 ml @ 75 mls/hr [id number] IV 05/03/19 06:30 06/02/19 06:29 05/04/19 09:07 Cora Baer M.D. May 04, 2019 10:24
--- NOTE | 2019-05-04 10:30 | Diagnostic Imaging Report ---
Indication: Shortness of breath Technique: One view of the chest Comparison: 05/01/2019 Findings: Bilateral interstitial and airspace disease persists, probably not significantly changed allowing for differences in technique and degree of inspiration. Interim exchange of previously demonstrated endotracheal tube for tracheostomy. Left arm PICC remains. Impression: Interim tracheostomy placement. Otherwise little changeover operator 3 days
--- NOTE | 2019-05-04 10:43 | Pulmonolgy Critical Care Note ---
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 (7) Hypertensive heart disease (8) Right hemiplegia (9) History of CVA (cerebrovascular accident) (10) CAD (coronary artery disease) Respiratory: monitor respiratory rate, adjust FIO2, CXR Cardiac: continue to monitor HR/BP Renal: F/U I&O, keep IV fluid, check electrolytes Infectious Disease: check cultures, continue antibiotics Gastrointestinal: continue feedings/current rate Endocrine: monitor blood sugar Hematologic: monitor H/H, transfuse if hgb<8.5 Neurologic: PRN Ativan, PRN Morphine, keep patient comfortable Affect: PRN ativan Prophylaxis: Heparin Notes Reviewed: cardio, renal Discussed with: nurses, consultants, correctional case managerconstruction project manager - Objective Last 24 Hour Vital Signs Date Time Temp Pulse Resp B/P (MAP) Pulse Ox O2 Delivery O2 Flow Rate FiO2 05/04/19 08:48 89 16 30 05/04/19 07:05 87 16 30 05/04/19 07:00 91 16 155/94 (114) 98 05/04/19 06:00 98.6 78 16 152/85 (107) 99 05/04/19 05:29 76 16 30 30 05/04/19 05:00 98.6 83 16 149/83 (105) 99 05/04/19 04:00 98.6 83 17 153/89 (110) 99 05/04/19 04:00 Mechanical Ventilator 05/04/19 04:00 Mechanical Ventilator 05/04/19 04:00 30 05/04/19 04:00 86 05/04/19 03:00 98.5 87 17 157/82 (107) 100 05/04/19 02:00 98.2 85 17 145/79 (101) 100 05/04/19 01:22 93 16 30 30 05/04/19 01:00 98.9 90 16 155/79 (104) 100 05/04/19 00:00 30 05/04/19 00:00 Mechanical Ventilator 05/04/19 00:00 88 05/04/19 00:00 98.6 95 16 132/82 (99) 100 05/03/19 23:04 96 16 30 30 05/03/19 23:00 98.9 95 15 147/85 (105) 100 05/03/19 22:00 98.5 87 15 142/80 (100) 100 05/03/19 21:10 97 16 30 30 05/03/19 21:00 99.0 99 15 132/76 (94) 100 05/03/19 20:00 99.3 82 14 124/68 (86) 98 05/03/19 20:00 Mechanical Ventilator 05/03/19 20:00 30 05/03/19 20:00 88 05/03/19 19:25 84 16 30 30 05/03/19 19:00 90 14 134/65 (88) 98 05/03/19 18:00 100 12 128/74 (92) 97 05/03/19 17:24 103 16 30 05/03/19 17:00 103 12 128/74 (92) 96 05/03/19 16:00 98.0 118 12 152/87 (108) 97 05/03/19 16:00 30 05/03/19 16:00 Mechanical Ventilator 05/03/19 16:00 120 05/03/19 15:19 77 20 100 05/03/19 15:14 80 16 30 05/03/19 14:00 97 12 143/72 (95) 96 05/03/19 13:00 96 12 132/75 (94) 93 05/03/19 12:54 80 16 30 05/03/19 12:00 Mechanical Ventilator 05/03/19 12:00 89 05/03/19 12:00 30 05/03/19 12:00 98.8 91 12 128/75 (92) 97 05/03/19 11:23 90 16 30 05/03/19 11:00 86 12 126/74 (91) 96 Status: awake Condition: critical Neck: full ROM, trach Lungs: chest wall tender Heart: HR/BP stable, regular Abdomen: soft, feeding tube Extremities: edema Micro: Microbiology Date/Time Source Procedure Growth Status 05/04/19 06:00 Stool Clostridium difficile Toxin Assay - Final Complete Accucheck: 117 Critical Care - Subjective ROS Limited/Unobtainable: Yes Condition: critical EKG Rhythm: Sinus Rhythm FI02: 30 Vent Support Breath Rate: 16 Vent Support Mode: AC Vent Tidal Volume: 500 Sputum Amount: Moderate PEEP: 5.0 PIP: 34 Tube Feeding Amount: 60 I&O: Intake and Output 05/03/19 05/04/19 19:00 07:00 Intake Total 975 ml 825 ml Output Total 390 ml 395 ml Balance 585 ml 430 ml Free Water 150 ml IV Total 825 ml 825 ml Output Urine Total 390 ml 395 ml # Bowel Movements 3 4 ET-Tube: 7.5 ET Position: 23 Labs: Laboratory Tests Test 05/03/19 17:30 05/04/19 05:05 05/04/19 08:38 Urine Color Yellow Urine Appearance Slightly cloudy Urine pH 7 (4.5-8.0) Urine Specific [place] 1.010 (1.005-1.035) Urine Protein 4+ (NEGATIVE) H Urine Glucose (UA) Negative (NEGATIVE) Urine Ketones 1+ (NEGATIVE) H Urine Blood 5+ (NEGATIVE) H Urine Nitrite Negative (NEGATIVE) Urine Bilirubin Negative (NEGATIVE) Urine Urobilinogen 1 MG/DL (0.0-1.0) H Urine Leukocyte Esterase 3+ (NEGATIVE) H Urine RBC 2-4 /HPF (0 - 2) H Urine WBC 2-4 /HPF (0 - 2) Urine Squamous Epithelial Cells Few /LPF (NONE/OCC) Urine Bacteria Few /HPF (NONE) Urine Fine Granular Casts 0-2 /LPF (NONE) H White Blood Count 10.7 K/UL (4.8-10.8) Red Blood Count 2.84 M/UL (4.20-5.40) L Hemoglobin 8.2 G/DL (12.0-16.0) L Hematocrit 25.9 % (37.0-47.0) L Mean Corpuscular Volume 91 FL (80-99) Mean Corpuscular Hemoglobin 28.9 PG (27.0-31.0) Mean Corpuscular Hemoglobin Concent 31.7 G/DL (32.0-36.0) L Red Cell Distribution Width 16.1 % (11.6-14.8) H Platelet Count 158 K/UL (150-450) Mean Platelet Volume 7.2 FL (6.5-10.1) Neutrophils (%) (Auto) 75.9 % (45.0-75.0) H Lymphocytes (%) (Auto) 16.5 % (20.0-45.0) L Monocytes (%) (Auto) 5.5 % (1.0-10.0) Eosinophils (%) (Auto) 1.6 % (0.0-3.0) Basophils (%) (Auto) 0.4 % (0.0-2.0) Sodium Level 150 MMOL/L (136-145) H Potassium Level 4.1 MMOL/L (3.5-5.1) Chloride Level 112 MMOL/L (98-107) H Carbon Dioxide Level 26 MMOL/L (21-32) Anion Gap 12 mmol/L (5-15) Blood Urea Nitrogen 58 mg/dL (7-18) H Creatinine 1.8 MG/DL (0.55-1.30) H Estimat Glomerular Filtration Rate mL/min (>60) Glucose Level 116 MG/DL (74-106) H Calcium Level 8.7 MG/DL (8.5-10.1) Phosphorus Level 4.8 MG/DL (2.5-4.9) Magnesium Level 1.9 MG/DL (1.8-2.4) Total Bilirubin 0.6 MG/DL (0.2-1.0) Aspartate Amino Transf (AST/SGOT) 32 U/L (15-37) Alanine Aminotransferase (ALT/SGPT) 10 U/L (12-78) L Alkaline Phosphatase 75 U/L (46-116) Total Protein 6.4 G/DL (6.4-8.2) Albumin 1.6 G/DL (3.4-5.0) L Globulin 4.8 g/dL Albumin/Globulin Ratio 0.3 (1.0-2.7) L Arterial Blood pH 7.503 (7.350-7.450) Arterial Blood Partial Pressure CO2 32.9 mmHg (35.0-45.0) L Arterial Blood Partial Pressure O2 57.7 mmHg (75.0-100.0) L Arterial Blood HCO3 25.3 mmol/L (22.0-26.0) Arterial Blood Oxygen Saturation 89.4 % (95-100) *L Arterial Blood Base Excess 2.3 (-2-2) H Marlo Test Positive Tony Springer MD May 04, 2019 10:43
--- NOTE | 2019-05-04 12:00 | NUR ---
NURSE NOTES: Pt stable in no resp distress,turned and repositioned ,oral /tracheal secretions suctioned.
--- NOTE | 2019-05-04 12:10 | Cardiac Electrophysiology PN ---
Assessment/Plan Assessment/Plan 1. Atrial flutter, self terminated. Off AVN jose for low BP 2. Hypotension. Off Midodrine now 3. Coronary artery disease. On Plavix 75 mg daily 4. Respiratory failure, intubated EF 60%.S/P Tracheostomy 05/03/19 5. Sepsis. White count 25,000. On IV abx 6. Anemia.S/P PRBC. 7. Renal failure BUN/Cr improved with hydration by Dr. Spivey 8. Dysphagia. S/P PEG 04/22/19 9. History of CVA with hemiplegia. 10. Nonverbal status. 11. Full code DW office professionals to SDU Subjective Subjective Intubated in ICU. S/P Tracheostomy 05/03/19. In SR Objective Last 24 Hour Vital Signs Date Time Temp Pulse Resp B/P (MAP) Pulse Ox O2 Delivery O2 Flow Rate FiO2 05/04/19 12:03 Mechanical Ventilator 05/04/19 12:03 30 05/04/19 11:02 75 16 30 05/04/19 11:00 84 16 160/90 (113) 97 05/04/19 10:00 83 16 145/77 (99) 97 05/04/19 09:00 84 16 169/85 (113) 97 05/04/19 08:48 89 16 30 05/04/19 08:00 99.0 88 16 160/82 (108) 97 05/04/19 08:00 Mechanical Ventilator 05/04/19 08:00 30 05/04/19 08:00 76 05/04/19 07:05 87 16 30 05/04/19 07:00 91 16 155/94 (114) 98 05/04/19 06:00 98.6 78 16 152/85 (107) 99 05/04/19 05:29 76 16 30 30 05/04/19 05:00 98.6 83 16 149/83 (105) 99 05/04/19 04:00 98.6 83 17 153/89 (110) 99 05/04/19 04:00 Mechanical Ventilator 05/04/19 04:00 Mechanical Ventilator 05/04/19 04:00 30 05/04/19 04:00 86 05/04/19 03:00 98.5 87 17 157/82 (107) 100 05/04/19 02:00 98.2 85 17 145/79 (101) 100 05/04/19 01:22 93 16 30 30 05/04/19 01:00 98.9 90 16 155/79 (104) 100 05/04/19 00:00 30 05/04/19 00:00 Mechanical Ventilator 05/04/19 00:00 88 05/04/19 00:00 98.6 95 16 132/82 (99) 100 05/03/19 23:04 96 16 30 30 05/03/19 23:00 98.9 95 15 147/85 (105) 100 05/03/19 22:00 98.5 87 15 142/80 (100) 100 05/03/19 21:10 97 16 30 30 05/03/19 21:00 99.0 99 15 132/76 (94) 100 05/03/19 20:00 99.3 82 14 124/68 (86) 98 05/03/19 20:00 Mechanical Ventilator 05/03/19 20:00 30 05/03/19 20:00 88 05/03/19 19:25 84 16 30 30 05/03/19 19:00 90 14 134/65 (88) 98 05/03/19 18:00 100 12 128/74 (92) 97 05/03/19 17:24 103 16 30 05/03/19 17:00 103 12 128/74 (92) 96 05/03/19 16:00 98.0 118 12 152/87 (108) 97 05/03/19 16:00 30 05/03/19 16:00 Mechanical Ventilator 05/03/19 16:00 120 05/03/19 15:19 77 20 100 05/03/19 15:14 80 16 30 05/03/19 14:00 97 12 143/72 (95) 96 05/03/19 13:00 96 12 132/75 (94) 93 05/03/19 12:54 80 16 30 Intake and Output 05/03/19 05/04/19 19:00 07:00 Intake Total 975 ml 825 ml Output Total 390 ml 395 ml Balance 585 ml 430 ml Free Water 150 ml IV Total 825 ml 825 ml Output Urine Total 390 ml 395 ml # Bowel Movements 3 4 Laboratory Tests Test 05/03/19 17:30 05/04/19 05:05 05/04/19 08:38 Urine Color Yellow Urine Appearance Slightly cloudy Urine pH 7 (4.5-8.0) Urine Specific [place] 1.010 (1.005-1.035) Urine Protein 4+ (NEGATIVE) H Urine Glucose (UA) Negative (NEGATIVE) Urine Ketones 1+ (NEGATIVE) H Urine Blood 5+ (NEGATIVE) H Urine Nitrite Negative (NEGATIVE) Urine Bilirubin Negative (NEGATIVE) Urine Urobilinogen 1 MG/DL (0.0-1.0) H Urine Leukocyte Esterase 3+ (NEGATIVE) H Urine RBC 2-4 /HPF (0 - 2) H Urine WBC 2-4 /HPF (0 - 2) Urine Squamous Epithelial Cells Few /LPF (NONE/OCC) Urine Bacteria Few /HPF (NONE) Urine Fine Granular Casts 0-2 /LPF (NONE) H White Blood Count 10.7 K/UL (4.8-10.8) Red Blood Count 2.84 M/UL (4.20-5.40) L Hemoglobin 8.2 G/DL (12.0-16.0) L Hematocrit 25.9 % (37.0-47.0) L Mean Corpuscular Volume 91 FL (80-99) Mean Corpuscular Hemoglobin 28.9 PG (27.0-31.0) Mean Corpuscular Hemoglobin Concent 31.7 G/DL (32.0-36.0) L Red Cell Distribution Width 16.1 % (11.6-14.8) H Platelet Count 158 K/UL (150-450) Mean Platelet Volume 7.2 FL (6.5-10.1) Neutrophils (%) (Auto) 75.9 % (45.0-75.0) H Lymphocytes (%) (Auto) 16.5 % (20.0-45.0) L Monocytes (%) (Auto) 5.5 % (1.0-10.0) Eosinophils (%) (Auto) 1.6 % (0.0-3.0) Basophils (%) (Auto) 0.4 % (0.0-2.0) Sodium Level 150 MMOL/L (136-145) H Potassium Level 4.1 MMOL/L (3.5-5.1) Chloride Level 112 MMOL/L (98-107) H Carbon Dioxide Level 26 MMOL/L (21-32) Anion Gap 12 mmol/L (5-15) Blood Urea Nitrogen 58 mg/dL (7-18) H Creatinine 1.8 MG/DL (0.55-1.30) H Estimat Glomerular Filtration Rate mL/min (>60) Glucose Level 116 MG/DL (74-106) H Calcium Level 8.7 MG/DL (8.5-10.1) Phosphorus Level 4.8 MG/DL (2.5-4.9) Magnesium Level 1.9 MG/DL (1.8-2.4) Total Bilirubin 0.6 MG/DL (0.2-1.0) Aspartate Amino Transf (AST/SGOT) 32 U/L (15-37) Alanine Aminotransferase (ALT/SGPT) 10 U/L (12-78) L Alkaline Phosphatase 75 U/L (46-116) Total Protein 6.4 G/DL (6.4-8.2) Albumin 1.6 G/DL (3.4-5.0) L Globulin 4.8 g/dL Albumin/Globulin Ratio 0.3 (1.0-2.7) L Arterial Blood pH 7.503 (7.350-7.450) Arterial Blood Partial Pressure CO2 32.9 mmHg (35.0-45.0) L Arterial Blood Partial Pressure O2 57.7 mmHg (75.0-100.0) L Arterial Blood HCO3 25.3 mmol/L (22.0-26.0) Arterial Blood Oxygen Saturation 89.4 % (95-100) *L Arterial Blood Base Excess 2.3 (-2-2) H Marlo Test Positive Microbiology Date/Time Source Procedure Growth Status 05/04/19 06:00 Stool Clostridium difficile Toxin Assay - Final Complete Objective HEAD AND NECK: No JVD. S/P tracheostomy LUNGS: Coarse rhonchi bilaterally. CARDIOVASCULAR: Regular S1 and S2 with no gallop. ABDOMEN: Soft.PEG in place EXTREMITIES: No pitting edema. Claude Pena MD May 04, 2019 12:10
--- NOTE | 2019-05-04 13:26 | NUR ---
RD ASSESSMENT & RECOMMENDATIONS SEE CARE ACTIVITY FOR COMPLETE ASSESSMENT DAILY ESTIMATED NEEDS: Needs based on Sepsis, DM, cardiac, Critical care, wound/ 58kg abw 22-28 kcals/kg 1464-0658 total kcals 1.2-2 g protein/kg 70-116 g total protein 25-30 mL/kg 4402-0248 total fluid mLs NUTRITION DIAGNOSIS: * Swallowing difficulty R/T dysphagia, h/o CVA, respiratory status as evidenced by s/p VSS w/ rec for NPO, nonoral feedings, now orally intubated in ICU, s/p PEG placement. * Altered nutrition related lab values R/T diabetes, ARF, cardiac hx as evidenced by A1C of 8.1, elev creat (2.4 ->1.8), elev BNP (74806->4917->56931), elev K now wnl. CURRENT TF:NPO ENTERAL NUTRITION RECOMMENDATIONS: Glucerna 1.5 @ 43ml/hr x 24 hrs to provide 1032ml, 1548kcal, 85g prot, 783ml free water * As able, resume TF * Rec Glucerna 1.5 @ 23ml/hr x 6 hrs, advance 10ml q 4-6 hrs as tolerated to goal rate. --- W/ CONSISTENTLY ELEV K, REC TF CHANGE TO NEPRO FOR LESS K CONTENT : Nepro @ 37m/hr x 24 hrs -> 888ml, 1598kcal, 72g prot, 640ml free water ADDITIONAL RECOMMENDATIONS: * Calibrated bedscale wt for accurate CBW * Monitor lytes daily, replete as needed * Monitor K closely- rec NEPRO w/ consistently elev K . .
--- NOTE | 2019-05-04 14:41 | NUR ---
CASE MANAGEMENT: REVIEW 05/04/2019 SI: ACUTE RESPIRATORY FAILURE ENCEPHALOPATHY. PNA T 99.6 HR 109 RR 16 B/P 136/69 SATS 97% ON MECH VENT FIO2 30 NA 150 CL 112 BUN 58 CR 1.8 GLU 118 ALT 10 ABGs PH 7.503 PCO2 32.9 PO2 57.7 O2 SATS 89.4 BE 2.3 IS: IV CEFEPIME Q24 EPOETIN SQ MWF IVF @ 75 mL/HR INSULIN ASPART SUBQ Q6H : ICU STATUS INTUBATED PLAN OF CARE: TRANSFER TO SDU
--- NOTE | 2019-05-04 15:21 | NUR ---
RADIOLOGY DEPT., CHEST X-RAY DONE.-P.DYE
--- NOTE | 2019-05-04 16:00 | Progress Note ---
DATE: 05/04/2019 SUBJECTIVE: This is a 79-year-old female patient with sepsis. She continues to have some depression, confusion. She has got mood lability. She has got no logical plan for her own self-care. She has got feelings of helplessness and hopelessness, low energy, poor appetite, loss of interest in activity. She is still in ICU. MENTAL STATUS EXAMINATION: This is a 79-year-old female. Appearance is disheveled. Attitude, irritable and agitated. Affect, guarded and restricted. Intellect poor. Mood, depressed and anxious. Motor activity, psychomotor agitation. Attention span is poor. Orientation x2. Speech is low volume, slurred. Thought process, disorganized and illogical. Insight and judgment is poor. DIAGNOSIS: Major depressive disorder, mild, recurrent with psychotic features, rule out dementia with psychosis. PLAN: Continue treatment with medications to stabilize her mood. Provided her with Namenda 5 twice a day. 20 minutes of behavioral management. Seen and assessed in ICU. Omar Glover M.D. DR: DEB JOB#: [id number] CC:
--- NOTE | 2019-05-04 16:07 | Surgery Progress Note ---
Surgery Progress Note Subjective Procedure Performed tracheostomy Additional Comments s/p trach seemingly more comfortable labs noted exam stable family at bedside. discussed care plan Objective Last 24 Hour Vital Signs Date Time Temp Pulse Resp B/P (MAP) Pulse Ox O2 Delivery O2 Flow Rate FiO2 05/04/19 14:49 97 16 30 05/04/19 14:00 97 14 129/67 (87) 97 05/04/19 13:10 87 16 30 05/04/19 13:00 84 16 130/68 (88) 97 05/04/19 12:03 Mechanical Ventilator 05/04/19 12:03 30 05/04/19 12:00 99.6 109 16 136/69 (91) 97 05/04/19 12:00 85 05/04/19 11:02 75 16 30 05/04/19 11:00 84 16 160/90 (113) 97 05/04/19 10:00 83 16 145/77 (99) 97 05/04/19 09:00 84 16 169/85 (113) 97 05/04/19 08:48 89 16 30 05/04/19 08:00 99.0 88 16 160/82 (108) 97 05/04/19 08:00 Mechanical Ventilator 05/04/19 08:00 30 05/04/19 08:00 76 05/04/19 07:05 87 16 30 05/04/19 07:00 91 16 155/94 (114) 98 05/04/19 06:00 98.6 78 16 152/85 (107) 99 05/04/19 05:29 76 16 30 30 05/04/19 05:00 98.6 83 16 149/83 (105) 99 05/04/19 04:00 98.6 83 17 153/89 (110) 99 05/04/19 04:00 Mechanical Ventilator 05/04/19 04:00 Mechanical Ventilator 05/04/19 04:00 30 05/04/19 04:00 86 05/04/19 03:00 98.5 87 17 157/82 (107) 100 05/04/19 02:00 98.2 85 17 145/79 (101) 100 05/04/19 01:22 93 16 30 30 05/04/19 01:00 98.9 90 16 155/79 (104) 100 05/04/19 00:00 30 05/04/19 00:00 Mechanical Ventilator 05/04/19 00:00 88 05/04/19 00:00 98.6 95 16 132/82 (99) 100 05/03/19 23:04 96 16 30 30 05/03/19 23:00 98.9 95 15 147/85 (105) 100 05/03/19 22:00 98.5 87 15 142/80 (100) 100 05/03/19 21:10 97 16 30 30 05/03/19 21:00 99.0 99 15 132/76 (94) 100 05/03/19 20:00 99.3 82 14 124/68 (86) 98 05/03/19 20:00 Mechanical Ventilator 05/03/19 20:00 30 05/03/19 20:00 88 05/03/19 19:25 84 16 30 30 05/03/19 19:00 90 14 134/65 (88) 98 05/03/19 18:00 100 12 128/74 (92) 97 05/03/19 17:24 103 16 30 05/03/19 17:00 103 12 128/74 (92) 96 I&O Intake and Output 05/03/19 05/04/19 19:00 07:00 Intake Total 975 ml 825 ml Output Total 390 ml 395 ml Balance 585 ml 430 ml Free Water 150 ml IV Total 825 ml 825 ml Output Urine Total 390 ml 395 ml # Bowel Movements 3 4 Dressing: dry Wound: clean Cardiovascular: RSR Respiratory: clear, other Abdomen: soft, present bowel sounds, non-distended Extremities: no tenderness, no cyanosis Laboratory Tests Test 05/03/19 17:30 05/04/19 05:05 05/04/19 08:38 Urine Color Yellow Urine Appearance Slightly cloudy Urine pH 7 (4.5-8.0) Urine Specific [place] 1.010 (1.005-1.035) Urine Protein 4+ (NEGATIVE) H Urine Glucose (UA) Negative (NEGATIVE) Urine Ketones 1+ (NEGATIVE) H Urine Blood 5+ (NEGATIVE) H Urine Nitrite Negative (NEGATIVE) Urine Bilirubin Negative (NEGATIVE) Urine Urobilinogen 1 MG/DL (0.0-1.0) H Urine Leukocyte Esterase 3+ (NEGATIVE) H Urine RBC 2-4 /HPF (0 - 2) H Urine WBC 2-4 /HPF (0 - 2) Urine Squamous Epithelial Cells Few /LPF (NONE/OCC) Urine Bacteria Few /HPF (NONE) Urine Fine Granular Casts 0-2 /LPF (NONE) H White Blood Count 10.7 K/UL (4.8-10.8) Red Blood Count 2.84 M/UL (4.20-5.40) L Hemoglobin 8.2 G/DL (12.0-16.0) L Hematocrit 25.9 % (37.0-47.0) L Mean Corpuscular Volume 91 FL (80-99) Mean Corpuscular Hemoglobin 28.9 PG (27.0-31.0) Mean Corpuscular Hemoglobin Concent 31.7 G/DL (32.0-36.0) L Red Cell Distribution Width 16.1 % (11.6-14.8) H Platelet Count 158 K/UL (150-450) Mean Platelet Volume 7.2 FL (6.5-10.1) Neutrophils (%) (Auto) 75.9 % (45.0-75.0) H Lymphocytes (%) (Auto) 16.5 % (20.0-45.0) L Monocytes (%) (Auto) 5.5 % (1.0-10.0) Eosinophils (%) (Auto) 1.6 % (0.0-3.0) Basophils (%) (Auto) 0.4 % (0.0-2.0) Sodium Level 150 MMOL/L (136-145) H Potassium Level 4.1 MMOL/L (3.5-5.1) Chloride Level 112 MMOL/L (98-107) H Carbon Dioxide Level 26 MMOL/L (21-32) Anion Gap 12 mmol/L (5-15) Blood Urea Nitrogen 58 mg/dL (7-18) H Creatinine 1.8 MG/DL (0.55-1.30) H Estimat Glomerular Filtration Rate mL/min (>60) Glucose Level 116 MG/DL (74-106) H Calcium Level 8.7 MG/DL (8.5-10.1) Phosphorus Level 4.8 MG/DL (2.5-4.9) Magnesium Level 1.9 MG/DL (1.8-2.4) Total Bilirubin 0.6 MG/DL (0.2-1.0) Aspartate Amino Transf (AST/SGOT) 32 U/L (15-37) Alanine Aminotransferase (ALT/SGPT) 10 U/L (12-78) L Alkaline Phosphatase 75 U/L (46-116) Total Protein 6.4 G/DL (6.4-8.2) Albumin 1.6 G/DL (3.4-5.0) L Globulin 4.8 g/dL Albumin/Globulin Ratio 0.3 (1.0-2.7) L Arterial Blood pH 7.503 (7.350-7.450) Arterial Blood Partial Pressure CO2 32.9 mmHg (35.0-45.0) L Arterial Blood Partial Pressure O2 57.7 mmHg (75.0-100.0) L Arterial Blood HCO3 25.3 mmol/L (22.0-26.0) Arterial Blood Oxygen Saturation 89.4 % (95-100) *L Arterial Blood Base Excess 2.3 (-2-2) H Marlo Test Positive Plan Problems: (1) Respiratory distress Assessment & Plan: s/p trach stable wean vent as tolerated cont with ICU care will follow with recs dressing prn (2) Malnutrition (3) UTI (urinary tract infection) (4) Diabetic nephropathy (5) Renal failure (ARF), acute on chronic (6) Anemia in chronic kidney disease (CKD) (7) Pulmonary hypertension (8) Acute respiratory failure (9) Respiratory failure (10) Hypernatremia (11) Sepsis Assessment & Plan: cont with current care trend labs will follow with recs (12) Pneumonia (13) History of CVA (cerebrovascular accident) (14) CAD (coronary artery disease) (15) Right hemiplegia (16) Diabetes mellitus (17) Hypertensive heart disease (18) 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 (19) Nosocomial pneumonia (20) At high risk for aspiration (21) Acute metabolic encephalopathy Devaughn Marin May 04, 2019 16:07
[2019-05-04] MEDS ORDERED: Acetaminophen 650 MG SUPP RECTAL PRN (17:32)
[2019-05-04] MEDS ORDERED: Midodrine 10mg tab GT PRN (17:33)
[2019-05-04] MEDS ORDERED: Miralax 17gm pkt GT PRN (17:34)
--- NOTE | 2019-05-04 17:35 | NUR ---
TRANSFER TO FLOOR: Patient transferred to SDU rm [id number], perbed,awake,alert but unable to follow command Report given to Lilly Keys.Insulin Pen medications given to receiving RN. . Family and or S/O informed of transfer and at bedside.
--- NOTE | 2019-05-04 18:47 | General Progress Note ---
Assessment/Plan Problem List: (1) Respiratory distress ICD Codes: R06.03 - Acute respiratory distress SNOMED: 936527509 (2) UTI (urinary tract infection) ICD Codes: N39.0 - Urinary tract infection, site not specified SNOMED: 06639752 (3) Diabetic nephropathy ICD Codes: E11.21 - Type 2 diabetes mellitus with diabetic nephropathy SNOMED: 524203756 (4) Renal failure (ARF), acute on chronic ICD Codes: N17.9 - Acute kidney failure, unspecified; N18.9 - Chronic kidney disease, unspecified SNOMED: 900260384 (5) Anemia in chronic kidney disease (CKD) ICD Codes: N18.9 - Chronic kidney disease, unspecified; D63.1 - Anemia in chronic kidney disease SNOMED: 636865235 (6) Pulmonary hypertension ICD Codes: I27.20 - Pulmonary hypertension, unspecified SNOMED: 36199330 (7) Acute respiratory failure ICD Codes: J96.00 - Acute respiratory failure, unspecified whether with hypoxia or hypercapnia SNOMED: 15395874 (8) Sepsis ICD Codes: A41.9 - Sepsis, unspecified organism SNOMED: 41284645 (9) Pneumonia ICD Codes: J18.9 - Pneumonia, unspecified organism SNOMED: 435956239 Qualifiers: Qualified Codes: J18.9 - Pneumonia, unspecified organism (10) History of CVA (cerebrovascular accident) ICD Codes: Z86.73 - Personal history of transient ischemic attack (TIA), and cerebral infarction without residual deficits SNOMED: 242344323 (11) CAD (coronary artery disease) ICD Codes: I25.10 - Atherosclerotic heart disease of [place] coronary artery without angina pectoris SNOMED: 87412933 (12) Diabetes mellitus ICD Codes: E11.9 - Type 2 diabetes mellitus without complications SNOMED: 76762848 (13) Hypertensive heart disease ICD Codes: I11.9 - Hypertensive heart disease without heart failure SNOMED: 12827147 (14) Nosocomial pneumonia ICD Codes: J18.9 - Pneumonia, unspecified organism; Y95 - Nosocomial condition SNOMED: 832512303 (15) Acute metabolic encephalopathy ICD Codes: G93.41 - Metabolic encephalopathy SNOMED: 33037911, 835868078 Status: progressing, unchanged Assessment/Plan: niddm htn sepsis and pna check sugar clinically improving bp is under control Subjective ROS Limited/Unobtainable: Yes Allergies: Coded Allergies: No Known Allergies (Unverified , 04/12/19) Objective Last 24 Hour Vital Signs Date Time Temp Pulse Resp B/P (MAP) Pulse Ox O2 Delivery O2 Flow Rate FiO2 05/04/19 17:14 83 16 30 05/04/19 17:00 91 16 145/80 (101) 98 05/04/19 16:00 98.3 96 16 132/68 (89) 97 05/04/19 16:00 83 05/04/19 16:00 Mechanical Ventilator 05/04/19 16:00 30 05/04/19 15:00 84 16 134/71 (92) 97 05/04/19 14:49 97 16 30 05/04/19 14:00 97 14 129/67 (87) 97 05/04/19 13:10 87 16 30 05/04/19 13:00 84 16 130/68 (88) 97 05/04/19 12:03 Mechanical Ventilator 05/04/19 12:03 30 05/04/19 12:00 99.6 109 16 136/69 (91) 97 05/04/19 12:00 85 05/04/19 11:02 75 16 30 05/04/19 11:00 84 16 160/90 (113) 97 05/04/19 10:00 83 16 145/77 (99) 97 05/04/19 09:00 84 16 169/85 (113) 97 05/04/19 08:48 89 16 30 05/04/19 08:00 99.0 88 16 160/82 (108) 97 05/04/19 08:00 Mechanical Ventilator 05/04/19 08:00 30 05/04/19 08:00 76 05/04/19 07:05 87 16 30 05/04/19 07:00 91 16 155/94 (114) 98 05/04/19 06:00 98.6 78 16 152/85 (107) 99 05/04/19 05:29 76 16 30 30 05/04/19 05:00 98.6 83 16 149/83 (105) 99 05/04/19 04:00 98.6 83 17 153/89 (110) 99 05/04/19 04:00 Mechanical Ventilator 05/04/19 04:00 Mechanical Ventilator 05/04/19 04:00 30 05/04/19 04:00 86 05/04/19 03:00 98.5 87 17 157/82 (107) 100 05/04/19 02:00 98.2 85 17 145/79 (101) 100 05/04/19 01:22 93 16 30 30 05/04/19 01:00 98.9 90 16 155/79 (104) 100 05/04/19 00:00 30 05/04/19 00:00 Mechanical Ventilator 05/04/19 00:00 88 05/04/19 00:00 98.6 95 16 132/82 (99) 100 05/03/19 23:04 96 16 30 30 05/03/19 23:00 98.9 95 15 147/85 (105) 100 05/03/19 22:00 98.5 87 15 142/80 (100) 100 05/03/19 21:10 97 16 30 30 05/03/19 21:00 99.0 99 15 132/76 (94) 100 05/03/19 20:00 99.3 82 14 124/68 (86) 98 05/03/19 20:00 Mechanical Ventilator 05/03/19 20:00 30 05/03/19 20:00 88 05/03/19 19:25 84 16 30 30 05/03/19 19:00 90 14 134/65 (88) 98 Intake and Output 05/03/19 05/04/19 19:00 07:00 Intake Total 975 ml 825 ml Output Total 390 ml 395 ml Balance 585 ml 430 ml Free Water 150 ml IV Total 825 ml 825 ml Output Urine Total 390 ml 395 ml # Bowel Movements 3 4 Laboratory Tests 05/04/19 05:05: White Blood Count 10.7, Red Blood Count 2.84L, Hemoglobin 8.2L, Hematocrit 25.9L , Mean Corpuscular Volume 91, Mean Corpuscular Hemoglobin 28.9, Mean Corpuscular Hemoglobin Concent 31.7L, Red Cell Distribution Width 16.1H, Platelet Count 158, Mean Platelet Volume 7.2, Neutrophils (%) (Auto) 75.9H, Lymphocytes (%) (Auto) 16.5L, Monocytes (%) (Auto) 5.5, Eosinophils (%) (Auto) 1.6, Basophils (%) (Auto) 0.4, Sodium Level 150H, Potassium Level 4.1, Chloride Level 112H, Carbon Dioxide Level 26, Anion Gap 12, Blood Urea Nitrogen 58H, Creatinine 1.8H, Estimat Glomerular Filtration Rate , Glucose Level 116H, Calcium Level 8.7, Phosphorus Level 4.8, Magnesium Level 1.9, Total Bilirubin 0.6, Aspartate Amino Transf (AST/SGOT) 32, Alanine Aminotransferase (ALT/SGPT) 10L, Alkaline Phosphatase 75, Total Protein 6.4, Albumin 1.6L, Globulin 4.8, Albumin/Globulin Ratio 0.3L 05/04/19 08:38: Arterial Blood pH 7.503H, Arterial Blood Partial Pressure CO2 32.9L, Arterial Blood Partial Pressure O2 57.7L, Arterial Blood HCO3 25.3, Arterial Blood Oxygen Saturation 89.4*L, Arterial Blood Base Excess 2.3H, Marlo Test Positive Height (Feet): 5 Height (Inches): 3.00 Weight (Pounds): 188 Cardiovascular: normal rate Respiratory/Chest: lungs clear Abdomen: soft Glendy Taylor MD May 04, 2019 18:47
--- NOTE | 2019-05-04 19:01 | NUR ---
RESPIRATORY NOTE: Received pt on AC 16, 500VT, 30%, PEEP +5. Pt is trach-dependent w/ a cuffed, Shiley 8 tube. Pt is awake/disoriented, responds to stimuli. B/S enmanuel. rhonchi, sxn small to moderate amounts of thick, marin-yellow secretions. Vent plugged into red outlet, ambubag at bedside. Pt in no apparent distress at this time. Will continue to monitor pt.
--- NOTE | 2019-05-04 19:20 | NUR ---
HAND-OFF: Report given to HORTENCIA BROWNE.
--- NOTE | 2019-05-04 19:21 | NUR ---
NURSE NOTES: Report received from HORTENCIA Carr. Observed pt lying in bed, awake, non-verbal, no signs of pain noted. A/O x1. Trach to vent Sh 8, AC 16, TV 500, FIO2 30%, PEEP 5, tolerating well, saturating at 100%. GT intact and running Glucerna 1.2 at 60cc/hr. Abd round, soft, and non-tender. IV on L UA PICC, TKO. Bed in the lowest position. Side rails up x3. Will continue to monitor.
[2019-05-04] MEDS: Dyna-Hex 2% Top Sol 2oz TOPIC SCH (20:43)
[2019-05-05] VITALS: BP 141/79
--- NOTE | 2019-05-05 00:28 | NUR ---
NURSE NOTES: Pt report received from Jordon RN LOVE. Pt appears to be in stable condition. Pt is alert and oriented times obtunded. pt pupils are round and reactive to light and accommodating bilaterally, slugish. pt is trach to vent with reported Shy 8, TV 500, Peep 5, FiO2 30% no signs symptoms of acute resp distress at this moment. pt is on a monitoring tech showing SR, no signs symptoms of cardiac compromise noted at this moment. pt is on a G tube running glucerna 1.2 at 60cc/hr. no abnormalities noted. all safety precautions noted, bed locked and low, bed armed, call light within easy reach. will continue plane of care.
--- NOTE | 2019-05-05 00:35 | NUR ---
HAND-OFF: Report given to HORTENCIA Sihna. No acute distress noted at this time.
[2019-05-05 04:00] VITALS: BP 154/90
[2019-05-05] MEDS: NovoLOG Insulin Flexpen SUBQ SCH ×4 (05:12→23:07)
[2019-05-05 06:34] LABS: HEMATOCRIT 25.7 % (37.0-47.0); HEMOGLOBIN 7.9 G/DL (12.0-16.0); MEAN CORPUSCULAR VOLUME 92 FL (80-99); PLATELET COUNT 156 K/UL (150-450); RED BLOOD COUNT 2.78 M/UL (4.20-5.40); RED CELL DISTRIBUTION WIDTH 17.2 % (11.6-14.8); WHITE BLOOD COUNT 8.9 K/UL (4.8-10.8)
--- NOTE | 2019-05-05 07:00 | NUR ---
HAND-OFF: Report given to Mary ALEMAN.
[2019-05-05 07:08] LABS: ALANINE AMINOTRANSFERASE 12 U/L (12-78); ALBUMIN 1.5 G/DL (3.4-5.0); ALBUMIN/GLOBULIN RATIO 0.3 (1.0-2.7); ALKALINE PHOSPHATASE 97 U/L (46-116); ANION GAP 8 mmol/L (5-15); ASPARTATE AMINO TRANSFERASE 34 U/L (15-37); BILIRUBIN,TOTAL 0.4 MG/DL (0.2-1.0); BLOOD UREA NITROGEN 60 mg/dL (7-18); CALCIUM 8.6 MG/DL (8.5-10.1); CARBON DIOXIDE 28 MMOL/L (21-32); CHLORIDE 112 MMOL/L (98-107); CREATININE 1.8 MG/DL (0.55-1.30); POTASSIUM 4.2 MMOL/L (3.5-5.1); SODIUM 148 MMOL/L (136-145)
[2019-05-05 08:00] VITALS: BP 139/89
--- NOTE | 2019-05-05 08:00 | NUR ---
NURSE NOTES: received pt in the bed, vent dependent, vital signs stable, no co pain, no SOB, skin warm and dry to touch, dressing on sacral area dry and intact, PICC line on left upper arm, dressing dry and intact, tolerate GT feeding well, Fraga catheter with yellow urine, bed in low position, HOB elevated.
--- NOTE | 2019-05-05 08:03 | NUR ---
RADIOLOGY DEPT., CHEST X-RAY DONE.-P.DYE
--- NOTE | 2019-05-05 09:44 | Diagnostic Imaging Report ---
Indication: Dyspnea Technique: One view of the chest Comparison: 05/04/2019 Findings: Tracheostomy, left arm PICC remain. Bilateral interstitial and airspace infiltrates versus edema persist, unchanged. Cardiomegaly persists. Impression: Unchanged, over one day, findings as above.
--- NOTE | 2019-05-05 11:10 | Pulmonolgy Critical Care Note ---
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 (7) Hypertensive heart disease (8) Right hemiplegia (9) History of CVA (cerebrovascular accident) (10) CAD (coronary artery disease) Respiratory: monitor respiratory rate, adjust FIO2, CXR Cardiac: continue to monitor HR/BP Renal: F/U I&O, check electrolytes Infectious Disease: check cultures, continue antibiotics Gastrointestinal: continue feedings/current rate, hold feedings Endocrine: check TSH, check HgA1C Hematologic: monitor H/H, transfuse if hgb<8.5 Neurologic: PRN Ativan, keep patient comfortable Prophylaxis: Protonix Discussed with: nurses, consultants, outpatient case managerbusiness analyst project manager - Objective Last 24 Hour Vital Signs Date Time Temp Pulse Resp B/P (MAP) Pulse Ox O2 Delivery O2 Flow Rate FiO2 05/05/19 10:39 92 16 30 05/05/19 08:42 73 16 30 05/05/19 08:00 Mechanical Ventilator 05/05/19 08:00 99.2 85 16 139/89 (106) 98 05/05/19 08:00 30 05/05/19 08:00 89 05/05/19 07:30 83 16 30 05/05/19 05:08 80 16 30 05/05/19 04:00 84 05/05/19 04:00 30 05/05/19 04:00 99.2 86 17 154/90 (111) 99 05/05/19 04:00 Mechanical Ventilator 05/05/19 03:09 105 18 30 05/05/19 01:15 78 16 30 05/05/19 00:00 99.5 91 17 141/79 (99) 98 05/05/19 00:00 83 05/05/19 00:00 30 05/05/19 00:00 Mechanical Ventilator 05/04/19 23:18 90 16 30 05/04/19 20:50 78 16 30 05/04/19 20:00 30 05/04/19 20:00 Mechanical Ventilator 05/04/19 20:00 96 05/04/19 20:00 99.3 87 16 128/77 (94) 99 05/04/19 18:58 96 16 30 05/04/19 17:14 83 16 30 05/04/19 17:00 91 16 145/80 (101) 98 05/04/19 16:00 98.3 96 16 132/68 (89) 97 05/04/19 16:00 83 05/04/19 16:00 Mechanical Ventilator 05/04/19 16:00 30 05/04/19 15:00 84 16 134/71 (92) 97 05/04/19 14:49 97 16 30 05/04/19 14:00 97 14 129/67 (87) 97 05/04/19 13:10 87 16 30 05/04/19 13:00 84 16 130/68 (88) 97 05/04/19 12:03 Mechanical Ventilator 05/04/19 12:03 30 05/04/19 12:00 99.6 109 16 136/69 (91) 97 05/04/19 12:00 85 Status: awake, sedated Neck: full ROM Lungs: chest wall tender Heart: HR/BP unstable Abdomen: feeding tube Extremities: edema Micro: Microbiology Date/Time Source Procedure Growth Status 05/03/19 16:05 Blood Blood Culture - Preliminary NO GROWTH AFTER 24 HOURS Resulted 05/04/19 06:00 Stool Clostridium difficile Toxin Assay - Final Complete Accucheck: 212 Critical Care - Subjective ROS Limited/Unobtainable: No Condition: critical EKG Rhythm: Sinus Rhythm FI02: 30 Vent Support Breath Rate: 16 Vent Support Mode: AC Vent Tidal Volume: 500 Sputum Amount: Small PEEP: 5.0 PIP: 34 Tube Feeding Amount: 60 I&O: Intake and Output 05/04/19 05/05/19 19:00 07:00 Intake Total 1020 ml 920 ml Output Total 485 ml 200 ml Balance 535 ml 720 ml Free Water 300 ml 200 ml Tube Feeding 660 ml 720 ml Other 60 ml Output Urine Total 485 ml 200 ml ET-Tube: 7.5 ET Position: 23 Labs: Laboratory Tests Test 05/05/19 03:10 White Blood Count 8.9 K/UL (4.8-10.8) Red Blood Count 2.78 M/UL (4.20-5.40) L Hemoglobin 7.9 G/DL (12.0-16.0) L Hematocrit 25.7 % (37.0-47.0) L Mean Corpuscular Volume 92 FL (80-99) Mean Corpuscular Hemoglobin 28.5 PG (27.0-31.0) Mean Corpuscular Hemoglobin Concent 30.9 G/DL (32.0-36.0) L Red Cell Distribution Width 17.2 % (11.6-14.8) H Platelet Count 156 K/UL (150-450) Mean Platelet Volume 7.0 FL (6.5-10.1) Neutrophils (%) (Auto) % (45.0-75.0) Lymphocytes (%) (Auto) % (20.0-45.0) Monocytes (%) (Auto) % (1.0-10.0) Eosinophils (%) (Auto) % (0.0-3.0) Basophils (%) (Auto) % (0.0-2.0) Differential Total Cells Counted 100 Neutrophils % (Manual) 70 % (45-75) Lymphocytes % (Manual) 19 % (20-45) L Monocytes % (Manual) 6 % (1-10) Eosinophils % (Manual) 4 % (0-3) H Basophils % (Manual) 1 % (0-2) Band Neutrophils 0 % (0-8) Nucleated Red Blood Cells 1 /100 WBC Platelet Estimate Adequate Platelet Morphology Normal Hypochromasia 3+ Anisocytosis 1+ Sodium Level 148 MMOL/L (136-145) H Potassium Level 4.2 MMOL/L (3.5-5.1) Chloride Level 112 MMOL/L (98-107) H Carbon Dioxide Level 28 MMOL/L (21-32) Anion Gap 8 mmol/L (5-15) Blood Urea Nitrogen 60 mg/dL (7-18) H Creatinine 1.8 MG/DL (0.55-1.30) H Estimat Glomerular Filtration Rate mL/min (>60) Glucose Level 189 MG/DL (74-106) H Calcium Level 8.6 MG/DL (8.5-10.1) Total Bilirubin 0.4 MG/DL (0.2-1.0) Aspartate Amino Transf (AST/SGOT) 34 U/L (15-37) Alanine Aminotransferase (ALT/SGPT) 12 U/L (12-78) Alkaline Phosphatase 97 U/L (46-116) Pro-B-Type Natriuretic Peptide 38729 pg/mL (0-125) H Total Protein 6.1 G/DL (6.4-8.2) L Albumin 1.5 G/DL (3.4-5.0) L Globulin 4.6 g/dL Albumin/Globulin Ratio 0.3 (1.0-2.7) L Tony Springer MD May 05, 2019 11:10
--- NOTE | 2019-05-05 11:58 | GI Progress Note ---
Assessment/Plan Problems: (1) At high risk for aspiration ICD Codes: Z91.89 - Other specified personal risk factors, not elsewhere classified SNOMED: 878193515 (2) Malnutrition ICD Codes: E46 - Unspecified protein-calorie malnutrition SNOMED: 07390190 (3) Diabetes mellitus ICD Codes: E11.9 - Type 2 diabetes mellitus without complications SNOMED: 59987768 Status: stable Status Narrative Discussed with Dr. Gentile. Assessment/Plan intubated GTF fu labs fu pulm recs prn blood transfusion pending trach ppi The patient was seen and examined at bedside and all new and available data was reviewed in the patients chart. I agree with the above findings, impression and plan. (Patient seen earlier today. Signature stamp does not reflect patient encounter time.). - Darron Gentile MD Subjective Subjective limited Objective Last 24 Hour Vital Signs Date Time Temp Pulse Resp B/P (MAP) Pulse Ox O2 Delivery O2 Flow Rate FiO2 05/05/19 10:39 92 16 30 05/05/19 08:42 73 16 30 05/05/19 08:00 Mechanical Ventilator 05/05/19 08:00 99.2 85 16 139/89 (106) 98 05/05/19 08:00 30 05/05/19 08:00 89 05/05/19 07:30 83 16 30 05/05/19 05:08 80 16 30 05/05/19 04:00 84 05/05/19 04:00 30 05/05/19 04:00 99.2 86 17 154/90 (111) 99 05/05/19 04:00 Mechanical Ventilator 05/05/19 03:09 105 18 30 05/05/19 01:15 78 16 30 05/05/19 00:00 99.5 91 17 141/79 (99) 98 05/05/19 00:00 83 05/05/19 00:00 30 05/05/19 00:00 Mechanical Ventilator 05/04/19 23:18 90 16 30 05/04/19 20:50 78 16 30 05/04/19 20:00 30 05/04/19 20:00 Mechanical Ventilator 05/04/19 20:00 96 05/04/19 20:00 99.3 87 16 128/77 (94) 99 05/04/19 18:58 96 16 30 05/04/19 17:14 83 16 30 05/04/19 17:00 91 16 145/80 (101) 98 05/04/19 16:00 98.3 96 16 132/68 (89) 97 05/04/19 16:00 83 05/04/19 16:00 Mechanical Ventilator 05/04/19 16:00 30 05/04/19 15:00 84 16 134/71 (92) 97 05/04/19 14:49 97 16 30 05/04/19 14:00 97 14 129/67 (87) 97 05/04/19 13:10 87 16 30 05/04/19 13:00 84 16 130/68 (88) 97 05/04/19 12:03 Mechanical Ventilator 05/04/19 12:03 30 05/04/19 12:00 99.6 109 16 136/69 (91) 97 05/04/19 12:00 85 Intake and Output 05/04/19 05/05/19 18:59 06:59 Intake Total 960 ml 920 ml Output Total 535 ml 200 ml Balance 425 ml 720 ml Free Water 300 ml 200 ml Tube Feeding 600 ml 720 ml Other 60 ml Output Urine Total 535 ml 200 ml Laboratory Tests Test 05/05/19 03:10 White Blood Count 8.9 K/UL (4.8-10.8) Red Blood Count 2.78 M/UL (4.20-5.40) L Hemoglobin 7.9 G/DL (12.0-16.0) L Hematocrit 25.7 % (37.0-47.0) L Mean Corpuscular Volume 92 FL (80-99) Mean Corpuscular Hemoglobin 28.5 PG (27.0-31.0) Mean Corpuscular Hemoglobin Concent 30.9 G/DL (32.0-36.0) L Red Cell Distribution Width 17.2 % (11.6-14.8) H Platelet Count 156 K/UL (150-450) Mean Platelet Volume 7.0 FL (6.5-10.1) Neutrophils (%) (Auto) % (45.0-75.0) Lymphocytes (%) (Auto) % (20.0-45.0) Monocytes (%) (Auto) % (1.0-10.0) Eosinophils (%) (Auto) % (0.0-3.0) Basophils (%) (Auto) % (0.0-2.0) Differential Total Cells Counted 100 Neutrophils % (Manual) 70 % (45-75) Lymphocytes % (Manual) 19 % (20-45) L Monocytes % (Manual) 6 % (1-10) Eosinophils % (Manual) 4 % (0-3) H Basophils % (Manual) 1 % (0-2) Band Neutrophils 0 % (0-8) Nucleated Red Blood Cells 1 /100 WBC Platelet Estimate Adequate Platelet Morphology Normal Hypochromasia 3+ Anisocytosis 1+ Sodium Level 148 MMOL/L (136-145) H Potassium Level 4.2 MMOL/L (3.5-5.1) Chloride Level 112 MMOL/L (98-107) H Carbon Dioxide Level 28 MMOL/L (21-32) Anion Gap 8 mmol/L (5-15) Blood Urea Nitrogen 60 mg/dL (7-18) H Creatinine 1.8 MG/DL (0.55-1.30) H Estimat Glomerular Filtration Rate mL/min (>60) Glucose Level 189 MG/DL (74-106) H Calcium Level 8.6 MG/DL (8.5-10.1) Total Bilirubin 0.4 MG/DL (0.2-1.0) Aspartate Amino Transf (AST/SGOT) 34 U/L (15-37) Alanine Aminotransferase (ALT/SGPT) 12 U/L (12-78) Alkaline Phosphatase 97 U/L (46-116) Pro-B-Type Natriuretic Peptide 76347 pg/mL (0-125) H Total Protein 6.1 G/DL (6.4-8.2) L Albumin 1.5 G/DL (3.4-5.0) L Globulin 4.6 g/dL Albumin/Globulin Ratio 0.3 (1.0-2.7) L Height (Feet): 5 Height (Inches): 3.00 Weight (Pounds): 187 General Appearance: no apparent distress Cardiovascular: normal rate Respiratory/Chest: other - [facility] vent Abdominal Exam: soft, GT site - c/d/i Aron Torres NP May 05, 2019 11:58
[2019-05-05 12:00] VITALS: BP 141/73
--- NOTE | 2019-05-05 12:04 | NUR ---
DISCHARGE PLANNING: NOTE CLINICALS FAXED TO [facility] CM WILL F/U
--- NOTE | 2019-05-05 12:15 | NUR ---
NURSE NOTES: pt sleeping, vital signs stable, tolerate feeding well, bed bath given, repositioned, continue monitoring.
--- NOTE | 2019-05-05 13:19 | Surgery Progress Note ---
Surgery Progress Note Subjective Procedure Performed tracheostomy Symptoms: improved Objective Last 24 Hour Vital Signs Date Time Temp Pulse Resp B/P (MAP) Pulse Ox O2 Delivery O2 Flow Rate FiO2 05/05/19 13:15 78 16 30 05/05/19 12:00 76 05/05/19 12:00 Mechanical Ventilator 05/05/19 12:00 30 05/05/19 12:00 99.8 79 16 141/73 (95) 99 05/05/19 10:39 92 16 30 05/05/19 08:42 73 16 30 05/05/19 08:00 Mechanical Ventilator 05/05/19 08:00 99.2 85 16 139/89 (106) 98 05/05/19 08:00 30 05/05/19 08:00 89 05/05/19 07:30 83 16 30 05/05/19 05:08 80 16 30 05/05/19 04:00 84 05/05/19 04:00 30 05/05/19 04:00 99.2 86 17 154/90 (111) 99 05/05/19 04:00 Mechanical Ventilator 05/05/19 03:09 105 18 30 05/05/19 01:15 78 16 30 05/05/19 00:00 99.5 91 17 141/79 (99) 98 05/05/19 00:00 83 05/05/19 00:00 30 05/05/19 00:00 Mechanical Ventilator 05/04/19 23:18 90 16 30 05/04/19 20:50 78 16 30 05/04/19 20:00 30 05/04/19 20:00 Mechanical Ventilator 05/04/19 20:00 96 05/04/19 20:00 99.3 87 16 128/77 (94) 99 05/04/19 18:58 96 16 30 05/04/19 17:14 83 16 30 05/04/19 17:00 91 16 145/80 (101) 98 05/04/19 16:00 98.3 96 16 132/68 (89) 97 05/04/19 16:00 83 05/04/19 16:00 Mechanical Ventilator 05/04/19 16:00 30 05/04/19 15:00 84 16 134/71 (92) 97 05/04/19 14:49 97 16 30 05/04/19 14:00 97 14 129/67 (87) 97 I&O Intake and Output 05/04/19 05/05/19 19:00 07:00 Intake Total 1020 ml 920 ml Output Total 485 ml 200 ml Balance 535 ml 720 ml Free Water 300 ml 200 ml Tube Feeding 660 ml 720 ml Other 60 ml Output Urine Total 485 ml 200 ml Dressing: dry Wound: clean, dry Cardiovascular: RSR Respiratory: clear Abdomen: soft, present bowel sounds, non-distended Extremities: no cyanosis Laboratory Tests Test 05/05/19 03:10 White Blood Count 8.9 K/UL (4.8-10.8) Red Blood Count 2.78 M/UL (4.20-5.40) L Hemoglobin 7.9 G/DL (12.0-16.0) L Hematocrit 25.7 % (37.0-47.0) L Mean Corpuscular Volume 92 FL (80-99) Mean Corpuscular Hemoglobin 28.5 PG (27.0-31.0) Mean Corpuscular Hemoglobin Concent 30.9 G/DL (32.0-36.0) L Red Cell Distribution Width 17.2 % (11.6-14.8) H Platelet Count 156 K/UL (150-450) Mean Platelet Volume 7.0 FL (6.5-10.1) Neutrophils (%) (Auto) % (45.0-75.0) Lymphocytes (%) (Auto) % (20.0-45.0) Monocytes (%) (Auto) % (1.0-10.0) Eosinophils (%) (Auto) % (0.0-3.0) Basophils (%) (Auto) % (0.0-2.0) Differential Total Cells Counted 100 Neutrophils % (Manual) 70 % (45-75) Lymphocytes % (Manual) 19 % (20-45) L Monocytes % (Manual) 6 % (1-10) Eosinophils % (Manual) 4 % (0-3) H Basophils % (Manual) 1 % (0-2) Band Neutrophils 0 % (0-8) Nucleated Red Blood Cells 1 /100 WBC Platelet Estimate Adequate Platelet Morphology Normal Hypochromasia 3+ Anisocytosis 1+ Sodium Level 148 MMOL/L (136-145) H Potassium Level 4.2 MMOL/L (3.5-5.1) Chloride Level 112 MMOL/L (98-107) H Carbon Dioxide Level 28 MMOL/L (21-32) Anion Gap 8 mmol/L (5-15) Blood Urea Nitrogen 60 mg/dL (7-18) H Creatinine 1.8 MG/DL (0.55-1.30) H Estimat Glomerular Filtration Rate mL/min (>60) Glucose Level 189 MG/DL (74-106) H Calcium Level 8.6 MG/DL (8.5-10.1) Total Bilirubin 0.4 MG/DL (0.2-1.0) Aspartate Amino Transf (AST/SGOT) 34 U/L (15-37) Alanine Aminotransferase (ALT/SGPT) 12 U/L (12-78) Alkaline Phosphatase 97 U/L (46-116) Pro-B-Type Natriuretic Peptide 05672 pg/mL (0-125) H Total Protein 6.1 G/DL (6.4-8.2) L Albumin 1.5 G/DL (3.4-5.0) L Globulin 4.6 g/dL Albumin/Globulin Ratio 0.3 (1.0-2.7) L Plan Problems: (1) Respiratory distress Assessment & Plan: s/p trach stable wean vent as tolerated downgraded improving will follow with recs dressing prn (2) Malnutrition (3) UTI (urinary tract infection) (4) Diabetic nephropathy (5) Renal failure (ARF), acute on chronic (6) Anemia in chronic kidney disease (CKD) (7) Pulmonary hypertension (8) Acute respiratory failure (9) Respiratory failure (10) Hypernatremia (11) Sepsis Assessment & Plan: cont with current care trend labs will follow with recs (12) Pneumonia (13) History of CVA (cerebrovascular accident) (14) CAD (coronary artery disease) (15) Right hemiplegia (16) Diabetes mellitus (17) Hypertensive heart disease (18) 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 (19) Nosocomial pneumonia (20) At high risk for aspiration (21) Acute metabolic encephalopathy Devaughn Marin May 05, 2019 13:19
--- NOTE | 2019-05-05 13:29 | NUR ---
CASE MANAGEMENT: REVIEW 05/05/2019 SI: ACUTE RESPIRATORY FAILURE ENCEPHALOPATHY. PNA T 99.8 HR 79 RR 16 B/P 141/73 SATS 99% ON MECH VENT FIO2 30 HGB 7.9 HCT 25.7 NA 148 CL 112 BUN 60 CR 1.8 GLU 189 BNP 38895 IS: IV CEFEPIME Q24 EPOETIN SQ MWF IVF @ 75 mL/HR INSULIN ASPART SUBQ Q6H : ICU STATUS PLAN OF CARE: DCP TO SUBACUTE
--- NOTE | 2019-05-05 13:31 | Nephrology Progress Note ---
Assessment/Plan Problem List: (1) Renal failure (ARF), acute on chronic (2) Diabetic nephropathy (3) Sepsis (4) Pneumonia (5) Right hemiplegia (6) Anemia in chronic kidney disease (CKD) (7) Pulmonary hypertension Assessment intubated- Renal failure; - Pre Renal - ? Underlying Renal Anemia Pneumonia / respiratory failure Sepsis elevated Troponin UTI HyperGlycemia / DM Right Esvin HTN Plan trach 05/03 done kayexelate as needed consider transfusion discussed with RN transfuse for low Hgb as needed K Phos IV as needed venofer Folate 24 H urine protein check 2.4 gram Fraga Hydrate BP and BS control urine studies slow hydrate kidney MAIKEL results noted: No [place] 2D echo Noted visualized except distal setum and inferiro wall hypokinesis Left ventricular ejection fraction estimated to be 55-60 %. avoid Nephrotoxics per orders Subjective ROS Limited/Unobtainable: Yes Objective Objective Last 24 Hour Vital Signs Date Time Temp Pulse Resp B/P (MAP) Pulse Ox O2 Delivery O2 Flow Rate FiO2 05/05/19 13:15 78 16 30 05/05/19 12:00 76 05/05/19 12:00 Mechanical Ventilator 05/05/19 12:00 30 05/05/19 12:00 99.8 79 16 141/73 (95) 99 05/05/19 10:39 92 16 30 05/05/19 08:42 73 16 30 05/05/19 08:00 Mechanical Ventilator 05/05/19 08:00 99.2 85 16 139/89 (106) 98 05/05/19 08:00 30 05/05/19 08:00 89 05/05/19 07:30 83 16 30 05/05/19 05:08 80 16 30 05/05/19 04:00 84 05/05/19 04:00 30 05/05/19 04:00 99.2 86 17 154/90 (111) 99 05/05/19 04:00 Mechanical Ventilator 05/05/19 03:09 105 18 30 05/05/19 01:15 78 16 30 05/05/19 00:00 99.5 91 17 141/79 (99) 98 05/05/19 00:00 83 05/05/19 00:00 30 05/05/19 00:00 Mechanical Ventilator 05/04/19 23:18 90 16 30 05/04/19 20:50 78 16 30 05/04/19 20:00 30 05/04/19 20:00 Mechanical Ventilator 05/04/19 20:00 96 05/04/19 20:00 99.3 87 16 128/77 (94) 99 05/04/19 18:58 96 16 30 05/04/19 17:14 83 16 30 05/04/19 17:00 91 16 145/80 (101) 98 05/04/19 16:00 98.3 96 16 132/68 (89) 97 05/04/19 16:00 83 05/04/19 16:00 Mechanical Ventilator 05/04/19 16:00 30 05/04/19 15:00 84 16 134/71 (92) 97 05/04/19 14:49 97 16 30 05/04/19 14:00 97 14 129/67 (87) 97 Intake and Output 05/04/19 05/05/19 19:00 07:00 Intake Total 1020 ml 920 ml Output Total 485 ml 200 ml Balance 535 ml 720 ml Free Water 300 ml 200 ml Tube Feeding 660 ml 720 ml Other 60 ml Output Urine Total 485 ml 200 ml Laboratory Tests 05/05/19 03:10: White Blood Count 8.9, Red Blood Count 2.78L, Hemoglobin 7.9L, Hematocrit 25.7L , Mean Corpuscular Volume 92, Mean Corpuscular Hemoglobin 28.5, Mean Corpuscular Hemoglobin Concent 30.9L, Red Cell Distribution Width 17.2H, Platelet Count 156, Mean Platelet Volume 7.0, Neutrophils (%) (Auto) , Lymphocytes (%) (Auto) , Monocytes (%) (Auto) , Eosinophils (%) (Auto) , Basophils (%) (Auto) , Differential Total Cells Counted 100, Neutrophils % ( Manual) 70, Lymphocytes % (Manual) 19L, Monocytes % (Manual) 6, Eosinophils % ( Manual) 4H, Basophils % (Manual) 1, Band Neutrophils 0, Nucleated Red Blood Cells 1, Platelet Estimate Adequate, Platelet Morphology Normal, Hypochromasia 3 +, Anisocytosis 1+, Sodium Level 148H, Potassium Level 4.2, Chloride Level 112H , Carbon Dioxide Level 28, Anion Gap 8, Blood Urea Nitrogen 60H, Creatinine 1.8H , Estimat Glomerular Filtration Rate , Glucose Level 189H, Calcium Level 8.6, Total Bilirubin 0.4, Aspartate Amino Transf (AST/SGOT) 34, Alanine Aminotransferase (ALT/SGPT) 12, Alkaline Phosphatase 97, Pro-B-Type Natriuretic Peptide 06990D, Total Protein 6.1L, Albumin 1.5L, Globulin 4.6, Albumin/ Globulin Ratio 0.3L Height (Feet): 5 Height (Inches): 3.00 Weight (Pounds): 187 General Appearance: no apparent distress EENT: other - trach Cardiovascular: normal rate Respiratory/Chest: decreased breath sounds Abdomen: distended Objective no change Wally Spivey MD May 05, 2019 13:31
--- NOTE | 2019-05-05 13:45 | NUR ---
INSURANCE CLINICALS AND REVIEWS FAXED TO [facility] T: [phone] F:[phone]
--- NOTE | 2019-05-05 14:05 | Infectious Diseases Prog Note ---
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 PNA, sp Rx Pulmonary edema -04/26 CXR: Suspect slightly increased interstitial and airspace edema, over 2 days.Possibly improving small right pleural effusion -04/19 CXR: There is less pulmonary edema compared to yesterday but with moderate residual edema. -04/16 CXR: . Right perihilar and bilateral lower lobe pulmonary consolidation concerning for pneumonia.Small bilateral pleural effusions. CXR - B/L Infiltrates Low grade fevers; SP WBCs up to 25; recurrent-- resolved -05/03 u/a neg Cdiff neg -04/24 Cdiff eng 04/16 Sp Cx - C. alb; 04/19 spC. albicans (colonizer) -BCx NTD -legionella ag urine neg Widened mediastinum - right sided aortic arch CXR - Apparent upper mediastinal widening. Possibly due to ectatic vasculature and body habitus, but upper mediastinal mass also possible. Correlate with any prior adiographs and may be available, consider CT for further evaluation if clinically indicated CT 04/13/19 - Right-sided aortic arch, presumably accounting for the apparent upper mediastinal widening demonstrated on recent plain radiograph. No evidence of upper mediastinal mass. Extensive bilateral lower lobe consolidation , likely pneumonia, less extensive left upper lobe consolidation. 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 We will continue to follow the patient during this hospitalization. Subjective Allergies: Coded Allergies: No Known Allergies (Unverified , 04/12/19) Subjective afebrile no leukocytosis off abx Objective Vital Signs Last 24 Hour Vital Signs Date Time Temp Pulse Resp B/P (MAP) Pulse Ox O2 Delivery O2 Flow Rate FiO2 05/05/19 13:15 78 16 30 05/05/19 12:00 76 05/05/19 12:00 Mechanical Ventilator 05/05/19 12:00 30 05/05/19 12:00 99.8 79 16 141/73 (95) 99 05/05/19 10:39 92 16 30 05/05/19 08:42 73 16 30 05/05/19 08:00 Mechanical Ventilator 05/05/19 08:00 99.2 85 16 139/89 (106) 98 05/05/19 08:00 30 05/05/19 08:00 89 05/05/19 07:30 83 16 30 05/05/19 05:08 80 16 30 05/05/19 04:00 84 05/05/19 04:00 30 05/05/19 04:00 99.2 86 17 154/90 (111) 99 05/05/19 04:00 Mechanical Ventilator 05/05/19 03:09 105 18 30 05/05/19 01:15 78 16 30 05/05/19 00:00 99.5 91 17 141/79 (99) 98 05/05/19 00:00 83 05/05/19 00:00 30 05/05/19 00:00 Mechanical Ventilator 05/04/19 23:18 90 16 30 05/04/19 20:50 78 16 30 05/04/19 20:00 30 05/04/19 20:00 Mechanical Ventilator 05/04/19 20:00 96 05/04/19 20:00 99.3 87 16 128/77 (94) 99 05/04/19 18:58 96 16 30 05/04/19 17:14 83 16 30 05/04/19 17:00 91 16 145/80 (101) 98 05/04/19 16:00 98.3 96 16 132/68 (89) 97 05/04/19 16:00 83 05/04/19 16:00 Mechanical Ventilator 05/04/19 16:00 30 05/04/19 15:00 84 16 134/71 (92) 97 05/04/19 14:49 97 16 30 Height (Feet): 5 Height (Inches): 3.00 Weight (Pounds): 187 Objective Gen: Awake and talking HEENT: NCAT, MMM, EOMI LUNGS: CTAB, No W CARDS: RRR, S1, S2, No M/R/G, ABD: Soft, NT, ND Microbiology Date/Time Source Procedure Growth Status 05/03/19 16:05 Blood Blood Culture - Preliminary NO GROWTH AFTER 24 HOURS Resulted 05/03/19 20:30 Sputum Induced Gram Stain - Final Resulted 05/03/19 20:30 Sputum Induced Sputum Culture Pending Resulted 05/04/19 06:00 Stool Clostridium difficile Toxin Assay - Final Complete Laboratory Tests Test 05/05/19 03:10 White Blood Count 8.9 K/UL (4.8-10.8) Red Blood Count 2.78 M/UL (4.20-5.40) L Hemoglobin 7.9 G/DL (12.0-16.0) L Hematocrit 25.7 % (37.0-47.0) L Mean Corpuscular Volume 92 FL (80-99) Mean Corpuscular Hemoglobin 28.5 PG (27.0-31.0) Mean Corpuscular Hemoglobin Concent 30.9 G/DL (32.0-36.0) L Red Cell Distribution Width 17.2 % (11.6-14.8) H Platelet Count 156 K/UL (150-450) Mean Platelet Volume 7.0 FL (6.5-10.1) Neutrophils (%) (Auto) % (45.0-75.0) Lymphocytes (%) (Auto) % (20.0-45.0) Monocytes (%) (Auto) % (1.0-10.0) Eosinophils (%) (Auto) % (0.0-3.0) Basophils (%) (Auto) % (0.0-2.0) Differential Total Cells Counted 100 Neutrophils % (Manual) 70 % (45-75) Lymphocytes % (Manual) 19 % (20-45) L Monocytes % (Manual) 6 % (1-10) Eosinophils % (Manual) 4 % (0-3) H Basophils % (Manual) 1 % (0-2) Band Neutrophils 0 % (0-8) Nucleated Red Blood Cells 1 /100 WBC Platelet Estimate Adequate Platelet Morphology Normal Hypochromasia 3+ Anisocytosis 1+ Sodium Level 148 MMOL/L (136-145) H Potassium Level 4.2 MMOL/L (3.5-5.1) Chloride Level 112 MMOL/L (98-107) H Carbon Dioxide Level 28 MMOL/L (21-32) Anion Gap 8 mmol/L (5-15) Blood Urea Nitrogen 60 mg/dL (7-18) H Creatinine 1.8 MG/DL (0.55-1.30) H Estimat Glomerular Filtration Rate mL/min (>60) Glucose Level 189 MG/DL (74-106) H Calcium Level 8.6 MG/DL (8.5-10.1) Total Bilirubin 0.4 MG/DL (0.2-1.0) Aspartate Amino Transf (AST/SGOT) 34 U/L (15-37) Alanine Aminotransferase (ALT/SGPT) 12 U/L (12-78) Alkaline Phosphatase 97 U/L (46-116) Pro-B-Type Natriuretic Peptide 74666 pg/mL (0-125) H Total Protein 6.1 G/DL (6.4-8.2) L Albumin 1.5 G/DL (3.4-5.0) L Globulin 4.6 g/dL Albumin/Globulin Ratio 0.3 (1.0-2.7) L Current Medications Medications (Trade) Dose Ordered Sig/Kenisha Route PRN Reason Start Time Stop Time Status Last Admin Dose Admin Acetaminophen (Tylenol) 650 mg Q4H PRN GT FEVER 05/04/19 17:45 06/03/19 17:32 Acetaminophen (Tylenol) 650 mg Q4H PRN RECTAL Fever 05/04/19 17:32 06/03/19 17:31 Chlorhexidine Gluconate (Izzy-Hex 2%) 1 applic DAILY@2000 TOPIC 05/04/19 20:00 05/20/19 19:59 05/04/19 20:43 Dextrose (Dextrose 50%) 25 ml Q30M PRN IV Hypoglycemia 05/04/19 17:45 05/12/19 19:44 Dextrose (Dextrose 50%) 50 ml Q30M PRN IV Hypoglycemia 05/04/19 17:45 05/12/19 19:44 Epoetin Bandar (Epoetin Bandar-EPBX(NON ESRD)) 10,000 unit FRI-FRI-FRI SUBQ 05/05/19 21:00 05/28/19 20:59 Folic Acid (Folate) 1 mg DAILY GT 05/05/19 09:00 05/19/19 08:59 05/05/19 08:21 Hydralazine HCl (Apresoline) 10 mg Q2H PRN IV SBP > 170 mmHg 05/04/19 18:05 06/03/19 18:04 Insulin Aspart (NovoLOG) Q6HR SUBQ 05/05/19 00:00 06/04/19 00:00 05/05/19 12:02 Lansoprazole (Prevacid) 30 mg DAILY GT 05/05/19 09:00 05/22/19 08:59 05/05/19 08:21 Midodrine (Pro-Amatine) 10 mg Q8H PRN GT bp below 100 syst 05/04/19 17:33 06/03/19 17:32 Ondansetron HCl (Zofran) 4 mg Q6H PRN IVP Nausea & Vomiting 05/04/19 17:34 06/03/19 17:33 Polyethylene Glycol (Miralax) 17 gm DAILYPRN PRN GT Constipation 05/04/19 17:34 06/03/19 17:33 Cora Baer M.D. May 05, 2019 14:05
--- NOTE | 2019-05-05 14:11 | Cardiac Electrophysiology PN ---
Assessment/Plan Assessment/Plan 1. Atrial flutter, self terminated. Off AVN jose for low BP 2. Hypotension. Resolved.Off Midodrine now 3. Coronary artery disease. On Plavix 75 mg daily 4. Respiratory failure, intubated EF 60%.S/P Tracheostomy 05/03/19 5. Sepsis. White count 25,000. On IV abx 6. Anemia.S/P PRBC. 7. Renal failure BUN/Cr improved with hydration by Dr. Spivey 8. Dysphagia. S/P PEG 04/22/19 9. History of CVA with hemiplegia. 10. Nonverbal status. 11. Full code DW RN Subjective Subjective Transferred out of ICU. S/P Tracheostomy 05/03/19. In SR Objective Last 24 Hour Vital Signs Date Time Temp Pulse Resp B/P (MAP) Pulse Ox O2 Delivery O2 Flow Rate FiO2 05/05/19 13:15 78 16 30 05/05/19 12:00 76 05/05/19 12:00 Mechanical Ventilator 05/05/19 12:00 30 05/05/19 12:00 99.8 79 16 141/73 (95) 99 05/05/19 10:39 92 16 30 05/05/19 08:42 73 16 30 05/05/19 08:00 Mechanical Ventilator 05/05/19 08:00 99.2 85 16 139/89 (106) 98 05/05/19 08:00 30 05/05/19 08:00 89 05/05/19 07:30 83 16 30 05/05/19 05:08 80 16 30 05/05/19 04:00 84 05/05/19 04:00 30 05/05/19 04:00 99.2 86 17 154/90 (111) 99 05/05/19 04:00 Mechanical Ventilator 05/05/19 03:09 105 18 30 05/05/19 01:15 78 16 30 05/05/19 00:00 99.5 91 17 141/79 (99) 98 05/05/19 00:00 83 05/05/19 00:00 30 05/05/19 00:00 Mechanical Ventilator 05/04/19 23:18 90 16 30 05/04/19 20:50 78 16 30 05/04/19 20:00 30 05/04/19 20:00 Mechanical Ventilator 05/04/19 20:00 96 05/04/19 20:00 99.3 87 16 128/77 (94) 99 05/04/19 18:58 96 16 30 05/04/19 17:14 83 16 30 05/04/19 17:00 91 16 145/80 (101) 98 05/04/19 16:00 98.3 96 16 132/68 (89) 97 05/04/19 16:00 83 05/04/19 16:00 Mechanical Ventilator 05/04/19 16:00 30 05/04/19 15:00 84 16 134/71 (92) 97 05/04/19 14:49 97 16 30 Intake and Output 05/04/19 05/05/19 19:00 07:00 Intake Total 1020 ml 920 ml Output Total 485 ml 200 ml Balance 535 ml 720 ml Free Water 300 ml 200 ml Tube Feeding 660 ml 720 ml Other 60 ml Output Urine Total 485 ml 200 ml Laboratory Tests Test 05/05/19 03:10 White Blood Count 8.9 K/UL (4.8-10.8) Red Blood Count 2.78 M/UL (4.20-5.40) L Hemoglobin 7.9 G/DL (12.0-16.0) L Hematocrit 25.7 % (37.0-47.0) L Mean Corpuscular Volume 92 FL (80-99) Mean Corpuscular Hemoglobin 28.5 PG (27.0-31.0) Mean Corpuscular Hemoglobin Concent 30.9 G/DL (32.0-36.0) L Red Cell Distribution Width 17.2 % (11.6-14.8) H Platelet Count 156 K/UL (150-450) Mean Platelet Volume 7.0 FL (6.5-10.1) Neutrophils (%) (Auto) % (45.0-75.0) Lymphocytes (%) (Auto) % (20.0-45.0) Monocytes (%) (Auto) % (1.0-10.0) Eosinophils (%) (Auto) % (0.0-3.0) Basophils (%) (Auto) % (0.0-2.0) Differential Total Cells Counted 100 Neutrophils % (Manual) 70 % (45-75) Lymphocytes % (Manual) 19 % (20-45) L Monocytes % (Manual) 6 % (1-10) Eosinophils % (Manual) 4 % (0-3) H Basophils % (Manual) 1 % (0-2) Band Neutrophils 0 % (0-8) Nucleated Red Blood Cells 1 /100 WBC Platelet Estimate Adequate Platelet Morphology Normal Hypochromasia 3+ Anisocytosis 1+ Sodium Level 148 MMOL/L (136-145) H Potassium Level 4.2 MMOL/L (3.5-5.1) Chloride Level 112 MMOL/L (98-107) H Carbon Dioxide Level 28 MMOL/L (21-32) Anion Gap 8 mmol/L (5-15) Blood Urea Nitrogen 60 mg/dL (7-18) H Creatinine 1.8 MG/DL (0.55-1.30) H Estimat Glomerular Filtration Rate mL/min (>60) Glucose Level 189 MG/DL (74-106) H Calcium Level 8.6 MG/DL (8.5-10.1) Total Bilirubin 0.4 MG/DL (0.2-1.0) Aspartate Amino Transf (AST/SGOT) 34 U/L (15-37) Alanine Aminotransferase (ALT/SGPT) 12 U/L (12-78) Alkaline Phosphatase 97 U/L (46-116) Pro-B-Type Natriuretic Peptide 30718 pg/mL (0-125) H Total Protein 6.1 G/DL (6.4-8.2) L Albumin 1.5 G/DL (3.4-5.0) L Globulin 4.6 g/dL Albumin/Globulin Ratio 0.3 (1.0-2.7) L Microbiology Date/Time Source Procedure Growth Status 05/03/19 16:05 Blood Blood Culture - Preliminary NO GROWTH AFTER 24 HOURS Resulted 05/03/19 20:30 Sputum Induced Gram Stain - Final Resulted 05/03/19 20:30 Sputum Induced Sputum Culture Pending Resulted 05/04/19 06:00 Stool Clostridium difficile Toxin Assay - Final Complete Objective HEAD AND NECK: No JVD. S/P tracheostomy LUNGS: Coarse rhonchi bilaterally. CARDIOVASCULAR: Regular S1 and S2 with no gallop. ABDOMEN: Soft.PEG in place EXTREMITIES: No pitting edema. Claude Pena MD May 05, 2019 14:11
[2019-05-05 16:00] VITALS: BP 133/84
--- NOTE | 2019-05-05 17:16 | NUR ---
DISCHARGE PLANNING: NOTE PATIENT HAS BEEN ACCEPTED TO [facility] IS ON WILL CALL PENDING MD ORDER TRANSFER REPORT AND PACKET PROVIDED TO NURSING
[2019-05-05] MEDS: Acetaminophen 650mg/20.3ml GT PRN (17:36)
--- NOTE | 2019-05-05 19:05 | NUR ---
HAND-OFF: Report given to Gustabo BURNETT, no distress at this time.
--- NOTE | 2019-05-05 19:10 | NUR ---
NURSE NOTES: BEDSIDE REPORT RECEIVED FROM HORTENCIA MEDRANO. PT OPENS EYES SPONTANEOUSLY, TRACKS W/ EYES, UNABLE TO FOLLOW COMMANDS. PRODUCTION PATTERN MAKER SHOWING NSR/1DG HB, ASYMPTOMATIC. SHILEY 8; AC 16, TV 500, FIO2 30, PEEP 5. NO S/S OF DISTRESS NOTED. GLU 1.2 @ 60 TOLERATING WELL. SKIN CLEAN, DRY, DRESSINGS INTACT. CAMILO NOTED AND DRAINING. SUZIE PICC ASYMPTOMATIC. BED IS LOCKED IN LOWEST POSITION, SR X3, CALL FIGUEROA W/ IN REACH, SAFETY PRECAUTIONS CONTINUED. WILL CONTINUE TO MONITOR AND FOLLOW W/ PLAN OF CARE.
--- NOTE | 2019-05-05 19:45 | Progress Note ---
DATE: 05/05/2019 SUBJECTIVE: This is a 79-year-old female patient with sepsis. She continues to have some confusion, some disorganized thought process, and decline in cognition below baseline, DIAGNOSIS: Major depressive disorder, mild, recurrent with psychotic features, rule out dementia with psychosis. PLAN: Treat her with a medication regimen of Namenda 5 mg twice a day, Ativan 0.5 mg every 6 hours as needed. Provided with 20 minutes of cognitive behavioral therapy to help her identify automatic negative thoughts and help her convert negative thoughts to more positive thoughts to reduce depression, anxiety, mood lability. Chart reviewed and discussed with staff. Seen and assessed at bedside. Omar Glover M.D. DR: Lucina JOB#: [id number] CC:
[2019-05-05 20:00] VITALS: BP 138/79
[2019-05-05] MEDS: Epoetin Alfa-EPBX (NON ESRD)10,000 unit/ml vial SUBQ SCH (20:29)
[2019-05-05] MEDS: Dyna-Hex 2% Top Sol 2oz TOPIC SCH (20:29)
--- NOTE | 2019-05-05 22:48 | General Progress Note ---
Assessment/Plan Problem List: (1) Respiratory distress ICD Codes: R06.03 - Acute respiratory distress SNOMED: 421712483 (2) UTI (urinary tract infection) ICD Codes: N39.0 - Urinary tract infection, site not specified SNOMED: 75686508 (3) Diabetic nephropathy ICD Codes: E11.21 - Type 2 diabetes mellitus with diabetic nephropathy SNOMED: 573171403 (4) Renal failure (ARF), acute on chronic ICD Codes: N17.9 - Acute kidney failure, unspecified; N18.9 - Chronic kidney disease, unspecified SNOMED: 503501379 (5) Anemia in chronic kidney disease (CKD) ICD Codes: N18.9 - Chronic kidney disease, unspecified; D63.1 - Anemia in chronic kidney disease SNOMED: 653862832 (6) Pulmonary hypertension ICD Codes: I27.20 - Pulmonary hypertension, unspecified SNOMED: 75961786 (7) Acute respiratory failure ICD Codes: J96.00 - Acute respiratory failure, unspecified whether with hypoxia or hypercapnia SNOMED: 77667942 (8) Sepsis ICD Codes: A41.9 - Sepsis, unspecified organism SNOMED: 15424209 (9) Pneumonia ICD Codes: J18.9 - Pneumonia, unspecified organism SNOMED: 236551785 Qualifiers: Qualified Codes: J18.9 - Pneumonia, unspecified organism (10) History of CVA (cerebrovascular accident) ICD Codes: Z86.73 - Personal history of transient ischemic attack (TIA), and cerebral infarction without residual deficits SNOMED: 836097626 (11) CAD (coronary artery disease) ICD Codes: I25.10 - Atherosclerotic heart disease of [place] coronary artery without angina pectoris SNOMED: 92436326 (12) Diabetes mellitus ICD Codes: E11.9 - Type 2 diabetes mellitus without complications SNOMED: 11845073 (13) Hypertensive heart disease ICD Codes: I11.9 - Hypertensive heart disease without heart failure SNOMED: 87894276 (14) Nosocomial pneumonia ICD Codes: J18.9 - Pneumonia, unspecified organism; Y95 - Nosocomial condition SNOMED: 642035385 (15) Acute metabolic encephalopathy ICD Codes: G93.41 - Metabolic encephalopathy SNOMED: 21627499, 541849100 Status: stable, progressing Assessment/Plan: niddm htn sepsis and pna bp is under control reviewed chart and labs no fever no wheezin Subjective ROS Limited/Unobtainable: Yes Allergies: Coded Allergies: No Known Allergies (Unverified , 04/12/19) Objective Last 24 Hour Vital Signs Date Time Temp Pulse Resp B/P (MAP) Pulse Ox O2 Delivery O2 Flow Rate FiO2 05/05/19 22:34 72 16 30 05/05/19 20:41 68 16 30 05/05/19 20:00 72 05/05/19 20:00 98.8 69 16 138/79 (98) 100 05/05/19 20:00 Mechanical Ventilator 05/05/19 20:00 30 05/05/19 18:40 78 16 30 05/05/19 18:06 100.0 05/05/19 17:27 91 16 30 05/05/19 16:00 30 05/05/19 16:00 Mechanical Ventilator 05/05/19 16:00 100.0 84 19 133/84 (100) 99 05/05/19 16:00 77 05/05/19 15:47 75 16 30 05/05/19 13:15 78 16 30 05/05/19 12:00 76 05/05/19 12:00 Mechanical Ventilator 05/05/19 12:00 30 05/05/19 12:00 99.8 79 16 141/73 (95) 99 05/05/19 10:39 92 16 30 05/05/19 08:42 73 16 30 05/05/19 08:00 Mechanical Ventilator 05/05/19 08:00 99.2 85 16 139/89 (106) 98 05/05/19 08:00 30 05/05/19 08:00 89 05/05/19 07:30 83 16 30 05/05/19 05:08 80 16 30 05/05/19 04:00 84 05/05/19 04:00 30 05/05/19 04:00 99.2 86 17 154/90 (111) 99 05/05/19 04:00 Mechanical Ventilator 05/05/19 03:09 105 18 30 05/05/19 01:15 78 16 30 05/05/19 00:00 99.5 91 17 141/79 (99) 98 05/05/19 00:00 83 05/05/19 00:00 30 05/05/19 00:00 Mechanical Ventilator 7/9/19 23:18 90 16 30 Intake and Output 05/04/19 05/05/19 18:59 06:59 Intake Total 960 ml 920 ml Output Total 535 ml 200 ml Balance 425 ml 720 ml Free Water 300 ml 200 ml Tube Feeding 600 ml 720 ml Other 60 ml Output Urine Total 535 ml 200 ml Laboratory Tests 05/05/19 03:10: White Blood Count 8.9, Red Blood Count 2.78L, Hemoglobin 7.9L, Hematocrit 25.7L , Mean Corpuscular Volume 92, Mean Corpuscular Hemoglobin 28.5, Mean Corpuscular Hemoglobin Concent 30.9L, Red Cell Distribution Width 17.2H, Platelet Count 156, Mean Platelet Volume 7.0, Neutrophils (%) (Auto) , Lymphocytes (%) (Auto) , Monocytes (%) (Auto) , Eosinophils (%) (Auto) , Basophils (%) (Auto) , Differential Total Cells Counted 100, Neutrophils % ( Manual) 70, Lymphocytes % (Manual) 19L, Monocytes % (Manual) 6, Eosinophils % ( Manual) 4H, Basophils % (Manual) 1, Band Neutrophils 0, Nucleated Red Blood Cells 1, Platelet Estimate Adequate, Platelet Morphology Normal, Hypochromasia 3 +, Anisocytosis 1+, Sodium Level 148H, Potassium Level 4.2, Chloride Level 112H , Carbon Dioxide Level 28, Anion Gap 8, Blood Urea Nitrogen 60H, Creatinine 1.8H , Estimat Glomerular Filtration Rate , Glucose Level 189H, Calcium Level 8.6, Total Bilirubin 0.4, Aspartate Amino Transf (AST/SGOT) 34, Alanine Aminotransferase (ALT/SGPT) 12, Alkaline Phosphatase 97, Pro-B-Type Natriuretic Peptide 58412W, Total Protein 6.1L, Albumin 1.5L, Globulin 4.6, Albumin/ Globulin Ratio 0.3L Height (Feet): 5 Height (Inches): 3.00 Weight (Pounds): 187 Cardiovascular: normal rate Respiratory/Chest: lungs clear Glendy Taylor MD May 05, 2019 22:48
--- NOTE | 2019-05-05 23:05 | Neurology Progress Note ---
Interim History Interim History ROS Limited/Unobtainable: Yes Complaints: AMS Events: Weaning attempts unsuccessful, PEG placed Interim History sp trach no events, out of icu Objective Physical Exam Last Vital Signs Date Time Temp Pulse Resp B/P (MAP) Pulse Ox O2 Delivery O2 Flow Rate FiO2 05/05/19 22:34 72 16 30 05/05/19 20:00 98.8 138/79 (98) 100 05/05/19 20:00 Mechanical Ventilator Laboratory Tests Test 05/05/19 03:10 White Blood Count 8.9 K/UL (4.8-10.8) Red Blood Count 2.78 M/UL (4.20-5.40) L Hemoglobin 7.9 G/DL (12.0-16.0) L Hematocrit 25.7 % (37.0-47.0) L Mean Corpuscular Volume 92 FL (80-99) Mean Corpuscular Hemoglobin 28.5 PG (27.0-31.0) Mean Corpuscular Hemoglobin Concent 30.9 G/DL (32.0-36.0) L Red Cell Distribution Width 17.2 % (11.6-14.8) H Platelet Count 156 K/UL (150-450) Mean Platelet Volume 7.0 FL (6.5-10.1) Neutrophils (%) (Auto) % (45.0-75.0) Lymphocytes (%) (Auto) % (20.0-45.0) Monocytes (%) (Auto) % (1.0-10.0) Eosinophils (%) (Auto) % (0.0-3.0) Basophils (%) (Auto) % (0.0-2.0) Differential Total Cells Counted 100 Neutrophils % (Manual) 70 % (45-75) Lymphocytes % (Manual) 19 % (20-45) L Monocytes % (Manual) 6 % (1-10) Eosinophils % (Manual) 4 % (0-3) H Basophils % (Manual) 1 % (0-2) Band Neutrophils 0 % (0-8) Nucleated Red Blood Cells 1 /100 WBC Platelet Estimate Adequate Platelet Morphology Normal Hypochromasia 3+ Anisocytosis 1+ Sodium Level 148 MMOL/L (136-145) H Potassium Level 4.2 MMOL/L (3.5-5.1) Chloride Level 112 MMOL/L (98-107) H Carbon Dioxide Level 28 MMOL/L (21-32) Anion Gap 8 mmol/L (5-15) Blood Urea Nitrogen 60 mg/dL (7-18) H Creatinine 1.8 MG/DL (0.55-1.30) H Estimat Glomerular Filtration Rate mL/min (>60) Glucose Level 189 MG/DL (74-106) H Calcium Level 8.6 MG/DL (8.5-10.1) Total Bilirubin 0.4 MG/DL (0.2-1.0) Aspartate Amino Transf (AST/SGOT) 34 U/L (15-37) Alanine Aminotransferase (ALT/SGPT) 12 U/L (12-78) Alkaline Phosphatase 97 U/L (46-116) Pro-B-Type Natriuretic Peptide 44197 pg/mL (0-125) H Total Protein 6.1 G/DL (6.4-8.2) L Albumin 1.5 G/DL (3.4-5.0) L Globulin 4.6 g/dL Albumin/Globulin Ratio 0.3 (1.0-2.7) L General: well developed, well nourished, no acute distress Head: normocophalic Neck: no rigidity EENT: benign Neurologic Exam Mental Status: awake, other Speech: other Language: other Cranial Nerve II: fundus normal, visual cruz, no papilledema, other Cranial Nerves III, IV, : PERRLA, EOMI, other Cranial Nerve V: other Cranial Nerve VII: other Cranial Nerve VIII: other Cranial Nerve IX: other Cranial Nerve XI: other Cranial Nerve XII: other Motor System: other Sensory: other Coordination: other Gait: other Objective Not following commands Moving all 4 ext spontaneously CN intact Impression/Recommendations Problems: (1) Respiratory distress (2) Malnutrition (3) UTI (urinary tract infection) (4) Diabetic nephropathy (5) Renal failure (ARF), acute on chronic (6) Anemia in chronic kidney disease (CKD) (7) Pulmonary hypertension (8) Acute respiratory failure (9) Respiratory failure (10) Hypernatremia (11) Sepsis (12) Pneumonia (13) History of CVA (cerebrovascular accident) (14) CAD (coronary artery disease) (15) Right hemiplegia (16) Diabetes mellitus (17) Hypertensive heart disease (18) 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 (19) Nosocomial pneumonia (20) At high risk for aspiration (21) Acute metabolic encephalopathy Status: stable, progressing Recommendations Cont current management map > 65 neuro exam non focal - monitor sp trach dispo pending Geo Espitia MD May 05, 2019 23:05
[2019-05-06] VITALS: BP 145/81
[2019-05-06 04:00] VITALS: BP 150/73
[2019-05-06] MEDS: NovoLOG Insulin Flexpen SUBQ SCH ×4 (05:36→23:15)
[2019-05-06 05:43] LABS: EOSINOPHILS % (AUTO) 4.8 % (0.0-3.0); HEMATOCRIT 25.7 % (37.0-47.0); LYMPHOCYTES % (AUTO) 21.2 % (20.0-45.0); MEAN CORPUSCULAR VOLUME 93 FL (80-99); MONOCYTES % (AUTO) 4.6 % (1.0-10.0); NEUTROPHILS % (AUTO) 68.5 % (45.0-75.0); PLATELET COUNT 166 K/UL (150-450); RED BLOOD COUNT 2.76 M/UL (4.20-5.40); RED CELL DISTRIBUTION WIDTH 17.5 % (11.6-14.8); WHITE BLOOD COUNT 8.1 K/UL (4.8-10.8)
[2019-05-06 06:09] LABS: ALANINE AMINOTRANSFERASE 12 U/L (12-78); ALBUMIN 1.5 G/DL (3.4-5.0); ALBUMIN/GLOBULIN RATIO 0.3 (1.0-2.7); ALKALINE PHOSPHATASE 84 U/L (46-116); ANION GAP 6 mmol/L (5-15); ASPARTATE AMINO TRANSFERASE 28 U/L (15-37); BILIRUBIN,TOTAL 0.3 MG/DL (0.2-1.0); BLOOD UREA NITROGEN 59 mg/dL (7-18); CALCIUM 8.6 MG/DL (8.5-10.1); CARBON DIOXIDE 30 MMOL/L (21-32); CHLORIDE 113 MMOL/L (98-107); CREATININE 1.7 MG/DL (0.55-1.30); PHOSPHORUS 3.8 MG/DL (2.5-4.9); POTASSIUM 4.3 MMOL/L (3.5-5.1); SODIUM 149 MMOL/L (136-145)
--- NOTE | 2019-05-06 07:30 | NUR ---
HAND-OFF: Report given to HORTENCIA MEDRANO.
[2019-05-06 08:00] VITALS: BP 144/78
--- NOTE | 2019-05-06 08:00 | NUR ---
NURSE NOTES: received pt in the bed, vent dependent, vital signs stable, no co pain, no SOB, skin warm and dry to touch, dressing dry and intact on sacral area, tolerate GT feeding well, PICC line on left upper arm, dressing dry and intact, Fraga catheter with yellow urine, bed in low position, HOB elevated.
--- NOTE | 2019-05-06 10:11 | Pulmonolgy Critical Care Note ---
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 (7) Hypertensive heart disease (8) Right hemiplegia (9) History of CVA (cerebrovascular accident) (10) CAD (coronary artery disease) Respiratory: monitor respiratory rate, adjust FIO2, CXR Cardiac: continue pressors, d/c security monitor Renal: F/U I&O Infectious Disease: check cultures, other - has low grade fever, repeat all cultures./ Gastrointestinal: continue feedings/current rate, hold feedings Endocrine: monitor blood sugar Hematologic: transfuse if hgb<8.5 Neurologic: PRN Morphine, keep patient comfortable Prophylaxis: Protonix Disposition: keep in ICU Notes Reviewed: electronic lab technician, renal Discussed with: nurses, consultants, watch case polisherlab manager - Objective Last 24 Hour Vital Signs Date Time Temp Pulse Resp B/P (MAP) Pulse Ox O2 Delivery O2 Flow Rate FiO2 05/06/19 08:47 77 16 30 05/06/19 08:00 Mechanical Ventilator 05/06/19 08:00 99.8 87 16 144/78 (100) 97 05/06/19 08:00 77 05/06/19 08:00 30 05/06/19 07:09 79 16 30 05/06/19 04:44 77 16 30 05/06/19 04:00 98.2 68 16 150/73 (98) 98 05/06/19 04:00 30 05/06/19 04:00 Mechanical Ventilator 05/06/19 03:25 75 05/06/19 02:40 73 16 30 05/06/19 00:36 82 16 30 05/06/19 00:00 98.0 70 16 145/81 (102) 98 05/06/19 00:00 30 05/06/19 00:00 Mechanical Ventilator 05/05/19 23:27 73 05/05/19 22:34 72 16 30 05/05/19 20:41 68 16 30 05/05/19 20:00 72 05/05/19 20:00 98.8 69 16 138/79 (98) 100 05/05/19 20:00 Mechanical Ventilator 05/05/19 20:00 30 05/05/19 18:40 78 16 30 05/05/19 18:06 100.0 05/05/19 17:27 91 16 30 05/05/19 16:00 30 05/05/19 16:00 Mechanical Ventilator 05/05/19 16:00 100.0 84 19 133/84 (100) 99 05/05/19 16:00 77 05/05/19 15:47 75 16 30 05/05/19 13:15 78 16 30 05/05/19 12:00 76 05/05/19 12:00 Mechanical Ventilator 05/05/19 12:00 30 05/05/19 12:00 99.8 79 16 141/73 (95) 99 05/05/19 10:39 92 16 30 Status: awake Condition: critical, grave HEENT: atraumatic Neck: full ROM Lungs: chest wall tender Heart: HR/BP stable Abdomen: soft, non-tender, feeding tube Extremities: edema Decubiti: location Micro: Microbiology Date/Time Source Procedure Growth Status 05/03/19 16:05 Blood Blood Culture - Preliminary NO GROWTH AFTER 48 HOURS Resulted 05/03/19 20:30 Sputum Induced Gram Stain - Final Resulted 05/03/19 20:30 Sputum Induced Sputum Culture - Preliminary NORMAL UPPER RESPIRATORY YOKO AT 24 ... Resulted 05/04/19 06:00 Stool Clostridium difficile Toxin Assay - Final Complete Accucheck: 164 Critical Care - Subjective ROS Limited/Unobtainable: No Condition: critical EKG Rhythm: Sinus Rhythm FI02: 30 Vent Support Breath Rate: 16 Vent Support Mode: AC Vent Tidal Volume: 500 Sputum Amount: Small PEEP: 5.0 PIP: 38 Tube Feeding Amount: 60 I&O: Intake and Output 05/05/19 05/06/19 19:00 07:00 Intake Total 870 ml 840 ml Output Total 350 ml 350 ml Balance 520 ml 490 ml Free Water 150 ml 180 ml Tube Feeding 720 ml 660 ml Output Urine Total 350 ml 350 ml # Bowel Movements 1 CXR: LUBA ET-Tube: 7.5 ET Position: 23 Labs: Laboratory Tests Test 05/06/19 04:00 White Blood Count 8.1 K/UL (4.8-10.8) Red Blood Count 2.76 M/UL (4.20-5.40) L Hemoglobin 8.0 G/DL (12.0-16.0) L Hematocrit 25.7 % (37.0-47.0) L Mean Corpuscular Volume 93 FL (80-99) Mean Corpuscular Hemoglobin 28.9 PG (27.0-31.0) Mean Corpuscular Hemoglobin Concent 31.0 G/DL (32.0-36.0) L Red Cell Distribution Width 17.5 % (11.6-14.8) H Platelet Count 166 K/UL (150-450) Mean Platelet Volume 7.3 FL (6.5-10.1) Neutrophils (%) (Auto) 68.5 % (45.0-75.0) Lymphocytes (%) (Auto) 21.2 % (20.0-45.0) Monocytes (%) (Auto) 4.6 % (1.0-10.0) Eosinophils (%) (Auto) 4.8 % (0.0-3.0) H Basophils (%) (Auto) 1.0 % (0.0-2.0) Erythrocyte Sedimentation Rate 134 MM/HR (0-30) H Sodium Level 149 MMOL/L (136-145) H Potassium Level 4.3 MMOL/L (3.5-5.1) Chloride Level 113 MMOL/L (98-107) H Carbon Dioxide Level 30 MMOL/L (21-32) Anion Gap 6 mmol/L (5-15) Blood Urea Nitrogen 59 mg/dL (7-18) H Creatinine 1.7 MG/DL (0.55-1.30) H Estimat Glomerular Filtration Rate mL/min (>60) Glucose Level 141 MG/DL (74-106) H Calcium Level 8.6 MG/DL (8.5-10.1) Phosphorus Level 3.8 MG/DL (2.5-4.9) Magnesium Level 2.0 MG/DL (1.8-2.4) Total Bilirubin 0.3 MG/DL (0.2-1.0) Aspartate Amino Transf (AST/SGOT) 28 U/L (15-37) Alanine Aminotransferase (ALT/SGPT) 12 U/L (12-78) Alkaline Phosphatase 84 U/L (46-116) C-Reactive Protein, Quantitative 22.8 mg/dL (0.00-0.90) H Total Protein 6.4 G/DL (6.4-8.2) Albumin 1.5 G/DL (3.4-5.0) L Globulin 4.9 g/dL Albumin/Globulin Ratio 0.3 (1.0-2.7) L Tony Springer MD May 06, 2019 10:11
--- NOTE | 2019-05-06 10:33 | Surgery Progress Note ---
Surgery Progress Note Subjective Procedure Performed tracheostomy Symptoms: improved Additional Comments family at bedside slowly improving labs noted exam stable on vents support Objective Last 24 Hour Vital Signs Date Time Temp Pulse Resp B/P (MAP) Pulse Ox O2 Delivery O2 Flow Rate FiO2 05/06/19 08:47 77 16 30 05/06/19 08:00 Mechanical Ventilator 05/06/19 08:00 99.8 87 16 144/78 (100) 97 05/06/19 08:00 77 05/06/19 08:00 30 05/06/19 07:09 79 16 30 05/06/19 04:44 77 16 30 05/06/19 04:00 98.2 68 16 150/73 (98) 98 05/06/19 04:00 30 05/06/19 04:00 Mechanical Ventilator 05/06/19 03:25 75 05/06/19 02:40 73 16 30 05/06/19 00:36 82 16 30 05/06/19 00:00 98.0 70 16 145/81 (102) 98 05/06/19 00:00 30 05/06/19 00:00 Mechanical Ventilator 05/05/19 23:27 73 05/05/19 22:34 72 16 30 05/05/19 20:41 68 16 30 05/05/19 20:00 72 05/05/19 20:00 98.8 69 16 138/79 (98) 100 05/05/19 20:00 Mechanical Ventilator 05/05/19 20:00 30 05/05/19 18:40 78 16 30 05/05/19 18:06 100.0 05/05/19 17:27 91 16 30 05/05/19 16:00 30 05/05/19 16:00 Mechanical Ventilator 05/05/19 16:00 100.0 84 19 133/84 (100) 99 05/05/19 16:00 77 05/05/19 15:47 75 16 30 05/05/19 13:15 78 16 30 05/05/19 12:00 76 05/05/19 12:00 Mechanical Ventilator 05/05/19 12:00 30 05/05/19 12:00 99.8 79 16 141/73 (95) 99 05/05/19 10:39 92 16 30 I&O Intake and Output 05/05/19 05/06/19 19:00 07:00 Intake Total 870 ml 840 ml Output Total 350 ml 350 ml Balance 520 ml 490 ml Free Water 150 ml 180 ml Tube Feeding 720 ml 660 ml Output Urine Total 350 ml 350 ml # Bowel Movements 1 Dressing: dry Wound: clean Cardiovascular: RSR Respiratory: decreased breath sounds Abdomen: soft, present bowel sounds, non-distended Extremities: no cyanosis Laboratory Tests Test 05/06/19 04:00 White Blood Count 8.1 K/UL (4.8-10.8) Red Blood Count 2.76 M/UL (4.20-5.40) L Hemoglobin 8.0 G/DL (12.0-16.0) L Hematocrit 25.7 % (37.0-47.0) L Mean Corpuscular Volume 93 FL (80-99) Mean Corpuscular Hemoglobin 28.9 PG (27.0-31.0) Mean Corpuscular Hemoglobin Concent 31.0 G/DL (32.0-36.0) L Red Cell Distribution Width 17.5 % (11.6-14.8) H Platelet Count 166 K/UL (150-450) Mean Platelet Volume 7.3 FL (6.5-10.1) Neutrophils (%) (Auto) 68.5 % (45.0-75.0) Lymphocytes (%) (Auto) 21.2 % (20.0-45.0) Monocytes (%) (Auto) 4.6 % (1.0-10.0) Eosinophils (%) (Auto) 4.8 % (0.0-3.0) H Basophils (%) (Auto) 1.0 % (0.0-2.0) Erythrocyte Sedimentation Rate 134 MM/HR (0-30) H Sodium Level 149 MMOL/L (136-145) H Potassium Level 4.3 MMOL/L (3.5-5.1) Chloride Level 113 MMOL/L (98-107) H Carbon Dioxide Level 30 MMOL/L (21-32) Anion Gap 6 mmol/L (5-15) Blood Urea Nitrogen 59 mg/dL (7-18) H Creatinine 1.7 MG/DL (0.55-1.30) H Estimat Glomerular Filtration Rate mL/min (>60) Glucose Level 141 MG/DL (74-106) H Calcium Level 8.6 MG/DL (8.5-10.1) Phosphorus Level 3.8 MG/DL (2.5-4.9) Magnesium Level 2.0 MG/DL (1.8-2.4) Total Bilirubin 0.3 MG/DL (0.2-1.0) Aspartate Amino Transf (AST/SGOT) 28 U/L (15-37) Alanine Aminotransferase (ALT/SGPT) 12 U/L (12-78) Alkaline Phosphatase 84 U/L (46-116) C-Reactive Protein, Quantitative 22.8 mg/dL (0.00-0.90) H Total Protein 6.4 G/DL (6.4-8.2) Albumin 1.5 G/DL (3.4-5.0) L Globulin 4.9 g/dL Albumin/Globulin Ratio 0.3 (1.0-2.7) L Plan Problems: (1) Respiratory distress Assessment & Plan: s/p trach stable wean vent as tolerated downgraded improving will follow with recs dressing prn (2) Malnutrition (3) UTI (urinary tract infection) (4) Diabetic nephropathy (5) Renal failure (ARF), acute on chronic (6) Anemia in chronic kidney disease (CKD) (7) Pulmonary hypertension (8) Acute respiratory failure (9) Respiratory failure (10) Hypernatremia (11) Sepsis Assessment & Plan: cont with current care trend labs will follow with recs (12) Pneumonia (13) History of CVA (cerebrovascular accident) (14) CAD (coronary artery disease) (15) Right hemiplegia Assessment & Plan: Sacral pressure injury resolved-dry peelingh skin without erythema noted. Incontinence associated dermatitis noted to medial aspects of both thighs,abd folds and perineum .Affected areas are erythematous and denuded. Moisture associated dermatitis noted to R and L axillae. erythema with denuded skin skin noted to affected areas. Both heels are dry ,firm and blanchable. Tx.Plan: Wash and pat dry R and L axillae,abd folds,perineum and medial aspects of both upper thighs. Apply Remedy Antifungal oint Twice Daily. Apply Moisture Barrier Paste to Sacrum . Cover with Optifoam drsg. Change every 3 days and prn. Apply Caviilon Skin Barrier to both heels. Cover each heel with Optifoam drsg. Change every 7 days and prn. APM/MARIA INES mattress. Reposition at least every 2houers or as tolerated. Off-load heels with pillow. (16) Diabetes mellitus (17) Hypertensive heart disease (18) 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 (19) Nosocomial pneumonia (20) At high risk for aspiration (21) Acute metabolic encephalopathy Devaughn Marin May 06, 2019 10:33
--- NOTE | 2019-05-06 11:01 | NUR ---
CASE MANAGEMENT: REVIEW 05/06/2019 SI: ACUTE RESPIRATORY FAILURE. ENCEPHALOPATHY. PNA T 99.8 HR 87 RR 16 B/P 144/78 SATS 97% ON MECH VENT FIO2 30 NA 149 CL 113 BUN 59 CR 1.7 GLU 141 IS: FOLATE GT QD PREVACID GT QD INSULIN ASPART SUBQ AC/HS : SDU STATUS PLAN OF CARE: DC ON HOLD D/T LOW GRADE TEMP
--- NOTE | 2019-05-06 11:35 | GI Progress Note ---
Assessment/Plan Problems: (1) At high risk for aspiration ICD Codes: Z91.89 - Other specified personal risk factors, not elsewhere classified SNOMED: 656463799 (2) Malnutrition ICD Codes: E46 - Unspecified protein-calorie malnutrition SNOMED: 65775187 (3) Diabetes mellitus ICD Codes: E11.9 - Type 2 diabetes mellitus without complications SNOMED: 43662237 Status: unchanged Status Narrative Discussed with Dr. Gentile. Assessment/Plan s/p tracheostomy GTF fu labs fu pulm recs prn blood transfusion ppi The patient was seen and examined at bedside and all new and available data was reviewed in the patients chart. I agree with the above findings, impression and plan. (Patient seen earlier today. Signature stamp does not reflect patient encounter time.). - Darron Gentile MD Subjective Subjective limited Objective Last 24 Hour Vital Signs Date Time Temp Pulse Resp B/P (MAP) Pulse Ox O2 Delivery O2 Flow Rate FiO2 05/06/19 10:44 78 16 30 05/06/19 08:47 77 16 30 05/06/19 08:00 Mechanical Ventilator 05/06/19 08:00 99.8 87 16 144/78 (100) 97 05/06/19 08:00 77 05/06/19 08:00 30 05/06/19 07:09 79 16 30 05/06/19 04:44 77 16 30 05/06/19 04:00 98.2 68 16 150/73 (98) 98 05/06/19 04:00 30 05/06/19 04:00 Mechanical Ventilator 05/06/19 03:25 75 05/06/19 02:40 73 16 30 05/06/19 00:36 82 16 30 05/06/19 00:00 98.0 70 16 145/81 (102) 98 05/06/19 00:00 30 05/06/19 00:00 Mechanical Ventilator 05/05/19 23:27 73 05/05/19 22:34 72 16 30 05/05/19 20:41 68 16 30 05/05/19 20:00 72 05/05/19 20:00 98.8 69 16 138/79 (98) 100 05/05/19 20:00 Mechanical Ventilator 05/05/19 20:00 30 05/05/19 18:40 78 16 30 05/05/19 18:06 100.0 05/05/19 17:27 91 16 30 05/05/19 16:00 30 05/05/19 16:00 Mechanical Ventilator 05/05/19 16:00 100.0 84 19 133/84 (100) 99 05/05/19 16:00 77 05/05/19 15:47 75 16 30 05/05/19 13:15 78 16 30 05/05/19 12:00 76 05/05/19 12:00 Mechanical Ventilator 05/05/19 12:00 30 05/05/19 12:00 99.8 79 16 141/73 (95) 99 Intake and Output 05/05/19 05/06/19 19:00 07:00 Intake Total 870 ml 840 ml Output Total 350 ml 350 ml Balance 520 ml 490 ml Free Water 150 ml 180 ml Tube Feeding 720 ml 660 ml Output Urine Total 350 ml 350 ml # Bowel Movements 1 Laboratory Tests Test 05/06/19 04:00 White Blood Count 8.1 K/UL (4.8-10.8) Red Blood Count 2.76 M/UL (4.20-5.40) L Hemoglobin 8.0 G/DL (12.0-16.0) L Hematocrit 25.7 % (37.0-47.0) L Mean Corpuscular Volume 93 FL (80-99) Mean Corpuscular Hemoglobin 28.9 PG (27.0-31.0) Mean Corpuscular Hemoglobin Concent 31.0 G/DL (32.0-36.0) L Red Cell Distribution Width 17.5 % (11.6-14.8) H Platelet Count 166 K/UL (150-450) Mean Platelet Volume 7.3 FL (6.5-10.1) Neutrophils (%) (Auto) 68.5 % (45.0-75.0) Lymphocytes (%) (Auto) 21.2 % (20.0-45.0) Monocytes (%) (Auto) 4.6 % (1.0-10.0) Eosinophils (%) (Auto) 4.8 % (0.0-3.0) H Basophils (%) (Auto) 1.0 % (0.0-2.0) Erythrocyte Sedimentation Rate 134 MM/HR (0-30) H Sodium Level 149 MMOL/L (136-145) H Potassium Level 4.3 MMOL/L (3.5-5.1) Chloride Level 113 MMOL/L (98-107) H Carbon Dioxide Level 30 MMOL/L (21-32) Anion Gap 6 mmol/L (5-15) Blood Urea Nitrogen 59 mg/dL (7-18) H Creatinine 1.7 MG/DL (0.55-1.30) H Estimat Glomerular Filtration Rate mL/min (>60) Glucose Level 141 MG/DL (74-106) H Calcium Level 8.6 MG/DL (8.5-10.1) Phosphorus Level 3.8 MG/DL (2.5-4.9) Magnesium Level 2.0 MG/DL (1.8-2.4) Total Bilirubin 0.3 MG/DL (0.2-1.0) Aspartate Amino Transf (AST/SGOT) 28 U/L (15-37) Alanine Aminotransferase (ALT/SGPT) 12 U/L (12-78) Alkaline Phosphatase 84 U/L (46-116) C-Reactive Protein, Quantitative 22.8 mg/dL (0.00-0.90) H Total Protein 6.4 G/DL (6.4-8.2) Albumin 1.5 G/DL (3.4-5.0) L Globulin 4.9 g/dL Albumin/Globulin Ratio 0.3 (1.0-2.7) L Height (Feet): 5 Height (Inches): 3.00 Weight (Pounds): 227 General Appearance: no apparent distress Cardiovascular: normal rate Respiratory/Chest: normal breath sounds, no respiratory distress Abdominal Exam: normal bowel sounds, non tender, soft, GT site - c/d/i Extremities: non-tender Aron Torres NP May 06, 2019 11:35
[2019-05-06 12:00] VITALS: BP 146/77
--- NOTE | 2019-05-06 12:00 | NUR ---
NURSE NOTES: pt resting, vital signs stable, no co pain, repositioned, family in the room, continue monitoring.
--- NOTE | 2019-05-06 15:45 | Progress Note ---
DATE: 05/06/2019 SUBJECTIVE: This is a 79-year-old female patient with sepsis. She continues to have some confusion, some disorganized thought process, and decline in cognition below her baseline. She is very confused and disorganized. She has confusion, some disorganized thought process, and some mood lability with sepsis. MENTAL STATUS EXAMINATION: This is a 79-year-old female patient. Appearance is disheveled. Attitude, irritable and agitated. Affect, guarded and restricted. Intellect poor. Mood, depressed and anxious. Motor activity, psychomotor agitation. Attention span is poor. Orientation x2. Speech is low volume, slurred. Thought process, disorganized and illogical. Insight and judgment is poor. DIAGNOSIS: Major depressive disorder, mild, recurrent with psychotic features, rule out dementia with psychosis. PLAN: Continue treatment with medications to prevent any further decline in cognition. Chart reviewed. Discussed with staff. Seen and assessed in her room. 20 minutes of behavioral management and insight-oriented psychotherapy provided to help her more insight into her decline in cognition so that she has better impulse control and better cognition on the unit. Omar Glover M.D. DR: DEB JOB#: [id number] CC:
[2019-05-06 16:00] VITALS: BP 140/78
--- NOTE | 2019-05-06 16:35 | NUR ---
INSURANCE CLINICALS AND REVIEWS FAXED TO WILL AT [facility] T: [phone] F:[phone]
--- NOTE | 2019-05-06 16:37 | Cardiac Electrophysiology PN ---
Assessment/Plan Assessment/Plan 1. Atrial flutter, self terminated. In SR. 2. Hypotension. Resolved. 3. Coronary artery disease. On Plavix 75 mg daily 4. Respiratory failure, intubated EF 60%.S/P Tracheostomy 05/03/19 5. Sepsis. White count 25,000. On IV abx 6. Anemia.S/P PRBC. 7. Renal failure BUN/Cr improved with hydration by Dr. Spivey 8. Dysphagia. S/P PEG 04/22/19 9. History of CVA with hemiplegia. 10. Nonverbal status. 11. Full code DW RN Subjective Subjective S/P Tracheostomy 05/03/19. In SR on the Vent. Opens her eyes and tracks Objective Last 24 Hour Vital Signs Date Time Temp Pulse Resp B/P (MAP) Pulse Ox O2 Delivery O2 Flow Rate FiO2 05/06/19 15:28 73 16 30 05/06/19 13:12 74 16 30 05/06/19 12:00 77 05/06/19 12:00 Mechanical Ventilator 05/06/19 12:00 30 05/06/19 12:00 99.1 86 16 146/77 (100) 99 05/06/19 10:44 78 16 30 05/06/19 08:47 77 16 30 05/06/19 08:00 Mechanical Ventilator 05/06/19 08:00 99.8 87 16 144/78 (100) 97 05/06/19 08:00 77 05/06/19 08:00 30 05/06/19 07:09 79 16 30 05/06/19 04:44 77 16 30 05/06/19 04:00 98.2 68 16 150/73 (98) 98 05/06/19 04:00 30 05/06/19 04:00 Mechanical Ventilator 05/06/19 03:25 75 05/06/19 02:40 73 16 30 05/06/19 00:36 82 16 30 05/06/19 00:00 98.0 70 16 145/81 (102) 98 05/06/19 00:00 30 05/06/19 00:00 Mechanical Ventilator 05/05/19 23:27 73 05/05/19 22:34 72 16 30 05/05/19 20:41 68 16 30 05/05/19 20:00 72 7/10/19 20:00 98.8 69 16 138/79 (98) 100 05/05/19 20:00 Mechanical Ventilator 05/05/19 20:00 30 05/05/19 18:40 78 16 30 05/05/19 18:06 100.0 05/05/19 17:27 91 16 30 Intake and Output 05/05/19 05/06/19 19:00 07:00 Intake Total 870 ml 840 ml Output Total 350 ml 350 ml Balance 520 ml 490 ml Free Water 150 ml 180 ml Tube Feeding 720 ml 660 ml Output Urine Total 350 ml 350 ml # Bowel Movements 1 Laboratory Tests Test 05/06/19 04:00 White Blood Count 8.1 K/UL (4.8-10.8) Red Blood Count 2.76 M/UL (4.20-5.40) L Hemoglobin 8.0 G/DL (12.0-16.0) L Hematocrit 25.7 % (37.0-47.0) L Mean Corpuscular Volume 93 FL (80-99) Mean Corpuscular Hemoglobin 28.9 PG (27.0-31.0) Mean Corpuscular Hemoglobin Concent 31.0 G/DL (32.0-36.0) L Red Cell Distribution Width 17.5 % (11.6-14.8) H Platelet Count 166 K/UL (150-450) Mean Platelet Volume 7.3 FL (6.5-10.1) Neutrophils (%) (Auto) 68.5 % (45.0-75.0) Lymphocytes (%) (Auto) 21.2 % (20.0-45.0) Monocytes (%) (Auto) 4.6 % (1.0-10.0) Eosinophils (%) (Auto) 4.8 % (0.0-3.0) H Basophils (%) (Auto) 1.0 % (0.0-2.0) Erythrocyte Sedimentation Rate 134 MM/HR (0-30) H Sodium Level 149 MMOL/L (136-145) H Potassium Level 4.3 MMOL/L (3.5-5.1) Chloride Level 113 MMOL/L (98-107) H Carbon Dioxide Level 30 MMOL/L (21-32) Anion Gap 6 mmol/L (5-15) Blood Urea Nitrogen 59 mg/dL (7-18) H Creatinine 1.7 MG/DL (0.55-1.30) H Estimat Glomerular Filtration Rate mL/min (>60) Glucose Level 141 MG/DL (74-106) H Calcium Level 8.6 MG/DL (8.5-10.1) Phosphorus Level 3.8 MG/DL (2.5-4.9) Magnesium Level 2.0 MG/DL (1.8-2.4) Total Bilirubin 0.3 MG/DL (0.2-1.0) Aspartate Amino Transf (AST/SGOT) 28 U/L (15-37) Alanine Aminotransferase (ALT/SGPT) 12 U/L (12-78) Alkaline Phosphatase 84 U/L (46-116) C-Reactive Protein, Quantitative 22.8 mg/dL (0.00-0.90) H Total Protein 6.4 G/DL (6.4-8.2) Albumin 1.5 G/DL (3.4-5.0) L Globulin 4.9 g/dL Albumin/Globulin Ratio 0.3 (1.0-2.7) L Microbiology Date/Time Source Procedure Growth Status 05/03/19 20:30 Sputum Induced Gram Stain - Final Resulted 05/03/19 20:30 Sputum Induced Sputum Culture - Preliminary NORMAL UPPER RESPIRATORY YOKO AT 24 ... Resulted 05/04/19 06:00 Stool Clostridium difficile Toxin Assay - Final Complete Objective HEAD AND NECK: No JVD. S/P tracheostomy LUNGS: Coarse rhonchi bilaterally. CARDIOVASCULAR: Regular S1 and S2 with no gallop. ABDOMEN: Soft.PEG in place EXTREMITIES: No pitting edema. Claude Pena MD May 06, 2019 16:37
--- NOTE | 2019-05-06 16:55 | Infectious Diseases Prog Note ---
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 PNA, sp Rx Pulmonary edema -04/26 CXR: Suspect slightly increased interstitial and airspace edema, over 2 days.Possibly improving small right pleural effusion -04/19 CXR: There is less pulmonary edema compared to yesterday but with moderate residual edema. -04/16 CXR: . Right perihilar and bilateral lower lobe pulmonary consolidation concerning for pneumonia.Small bilateral pleural effusions. CXR - B/L Infiltrates Low grade fevers; recurrent WBCs up to 25; recurrent-- resolved -05/03 u/a neg Cdiff neg Bcx NTD sp cx normal resp nohelia (prelim) -04/24 Cdiff eng 04/16 Sp Cx - C. alb; 04/19 spC. albicans (colonizer) -BCx NTD -legionella ag urine neg Widened mediastinum - right sided aortic arch CXR - Apparent upper mediastinal widening. Possibly due to ectatic vasculature and body habitus, but upper mediastinal mass also possible. Correlate with any prior adiographs and may be available, consider CT for further evaluation if clinically indicated CT 04/13/19 - Right-sided aortic arch, presumably accounting for the apparent upper mediastinal widening demonstrated on recent plain radiograph. No evidence of upper mediastinal mass. Extensive bilateral lower lobe consolidation , likely pneumonia, less extensive left upper lobe consolidation. 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 We will continue to follow the patient during this hospitalization. Subjective Allergies: Coded Allergies: No Known Allergies (Unverified , 04/12/19) Subjective Tm 100 Bx NTD no leukocytosis off abx Objective Vital Signs Last 24 Hour Vital Signs Date Time Temp Pulse Resp B/P (MAP) Pulse Ox O2 Delivery O2 Flow Rate FiO2 05/06/19 16:00 Mechanical Ventilator 05/06/19 16:00 30 05/06/19 16:00 100.7 81 16 140/78 (98) 99 05/06/19 16:00 71 05/06/19 15:28 73 16 30 05/06/19 13:12 74 16 30 05/06/19 12:00 77 05/06/19 12:00 Mechanical Ventilator 05/06/19 12:00 30 05/06/19 12:00 99.1 86 16 146/77 (100) 99 05/06/19 10:44 78 16 30 05/06/19 08:47 77 16 30 05/06/19 08:00 Mechanical Ventilator 05/06/19 08:00 99.8 87 16 144/78 (100) 97 05/06/19 08:00 77 05/06/19 08:00 30 05/06/19 07:09 79 16 30 05/06/19 04:44 77 16 30 05/06/19 04:00 98.2 68 16 150/73 (98) 98 05/06/19 04:00 30 05/06/19 04:00 Mechanical Ventilator 05/06/19 03:25 75 05/06/19 02:40 73 16 30 05/06/19 00:36 82 16 30 05/06/19 00:00 98.0 70 16 145/81 (102) 98 05/06/19 00:00 30 05/06/19 00:00 Mechanical Ventilator 05/05/19 23:27 73 05/05/19 22:34 72 16 30 05/05/19 20:41 68 16 30 05/05/19 20:00 72 05/05/19 20:00 98.8 69 16 138/79 (98) 100 05/05/19 20:00 Mechanical Ventilator 05/05/19 20:00 30 05/05/19 18:40 78 16 30 05/05/19 18:06 100.0 05/05/19 17:27 91 16 30 Height (Feet): 5 Height (Inches): 3.00 Weight (Pounds): 227 Objective Gen: Awake and talking HEENT: NCAT, MMM, EOMI LUNGS: CTAB, No W CARDS: RRR, S1, S2, No M/R/G, ABD: Soft, NT, ND Microbiology Date/Time Source Procedure Growth Status 7/8/19 20:30 Sputum Induced Gram Stain - Final Resulted 05/03/19 20:30 Sputum Induced Sputum Culture - Preliminary NORMAL UPPER RESPIRATORY NOHELIA AT 24 ... Resulted 05/04/19 06:00 Stool Clostridium difficile Toxin Assay - Final Complete Laboratory Tests Test 05/06/19 04:00 White Blood Count 8.1 K/UL (4.8-10.8) Red Blood Count 2.76 M/UL (4.20-5.40) L Hemoglobin 8.0 G/DL (12.0-16.0) L Hematocrit 25.7 % (37.0-47.0) L Mean Corpuscular Volume 93 FL (80-99) Mean Corpuscular Hemoglobin 28.9 PG (27.0-31.0) Mean Corpuscular Hemoglobin Concent 31.0 G/DL (32.0-36.0) L Red Cell Distribution Width 17.5 % (11.6-14.8) H Platelet Count 166 K/UL (150-450) Mean Platelet Volume 7.3 FL (6.5-10.1) Neutrophils (%) (Auto) 68.5 % (45.0-75.0) Lymphocytes (%) (Auto) 21.2 % (20.0-45.0) Monocytes (%) (Auto) 4.6 % (1.0-10.0) Eosinophils (%) (Auto) 4.8 % (0.0-3.0) H Basophils (%) (Auto) 1.0 % (0.0-2.0) Erythrocyte Sedimentation Rate 134 MM/HR (0-30) H Sodium Level 149 MMOL/L (136-145) H Potassium Level 4.3 MMOL/L (3.5-5.1) Chloride Level 113 MMOL/L (98-107) H Carbon Dioxide Level 30 MMOL/L (21-32) Anion Gap 6 mmol/L (5-15) Blood Urea Nitrogen 59 mg/dL (7-18) H Creatinine 1.7 MG/DL (0.55-1.30) H Estimat Glomerular Filtration Rate mL/min (>60) Glucose Level 141 MG/DL (74-106) H Calcium Level 8.6 MG/DL (8.5-10.1) Phosphorus Level 3.8 MG/DL (2.5-4.9) Magnesium Level 2.0 MG/DL (1.8-2.4) Total Bilirubin 0.3 MG/DL (0.2-1.0) Aspartate Amino Transf (AST/SGOT) 28 U/L (15-37) Alanine Aminotransferase (ALT/SGPT) 12 U/L (12-78) Alkaline Phosphatase 84 U/L (46-116) C-Reactive Protein, Quantitative 22.8 mg/dL (0.00-0.90) H Total Protein 6.4 G/DL (6.4-8.2) Albumin 1.5 G/DL (3.4-5.0) L Globulin 4.9 g/dL Albumin/Globulin Ratio 0.3 (1.0-2.7) L Current Medications Medications (Trade) Dose Ordered Sig/Kenisha Route PRN Reason Start Time Stop Time Status Last Admin Dose Admin Acetaminophen (Tylenol) 650 mg Q4H PRN GT FEVER 05/04/19 17:45 06/03/19 17:32 05/05/19 17:36 Acetaminophen (Tylenol) 650 mg Q4H PRN RECTAL Fever 05/04/19 17:32 06/03/19 17:31 Chlorhexidine Gluconate (Izzy-Hex 2%) 1 applic DAILY@2000 TOPIC 05/04/19 20:00 05/20/19 19:59 05/05/19 20:29 Dextrose (Dextrose 50%) 25 ml Q30M PRN IV Hypoglycemia 05/04/19 17:45 05/12/19 19:44 Dextrose (Dextrose 50%) 50 ml Q30M PRN IV Hypoglycemia 05/04/19 17:45 05/12/19 19:44 Epoetin Bandar (Epoetin Bandar-EPBX(NON ESRD)) 10,000 unit FRI-FRI-FRI SUBQ 05/05/19 21:00 05/28/19 20:59 05/05/19 20:29 Folic Acid (Folate) 1 mg DAILY GT 05/05/19 09:00 05/19/19 08:59 05/06/19 08:13 Hydralazine HCl (Apresoline) 10 mg Q2H PRN IV SBP > 170 mmHg 05/04/19 18:05 06/03/19 18:04 Insulin Aspart (NovoLOG) Q6HR SUBQ 05/05/19 00:00 06/04/19 00:00 05/06/19 11:53 Lansoprazole (Prevacid) 30 mg DAILY GT 05/05/19 09:00 05/22/19 08:59 05/06/19 08:13 Midodrine (Pro-Amatine) 10 mg Q8H PRN GT bp below 100 syst 05/04/19 17:33 06/03/19 17:32 Ondansetron HCl (Zofran) 4 mg Q6H PRN IVP Nausea & Vomiting 05/04/19 17:34 06/03/19 17:33 Polyethylene Glycol (Miralax) 17 gm DAILYPRN PRN GT Constipation 05/04/19 17:34 06/03/19 17:33 Cora Baer M.D. May 06, 2019 16:55
--- NOTE | 2019-05-06 17:13 | Nephrology Progress Note ---
Assessment/Plan Problem List: (1) Renal failure (ARF), acute on chronic (2) Diabetic nephropathy (3) Sepsis (4) Pneumonia (5) Right hemiplegia (6) Anemia in chronic kidney disease (CKD) (7) Pulmonary hypertension Assessment intubated- Renal failure; - Pre Renal - ? Underlying Renal Anemia Pneumonia / respiratory failure Sepsis elevated Troponin UTI HyperGlycemia / DM Right Esvin HTN Plan trach 05/03 done kayexelate as needed consider transfusion discussed with RN transfuse for low Hgb as needed K Phos IV as needed venofer Folate 24 H urine protein check 2.4 gram Fraga Hydrate BP and BS control urine studies slow hydrate kidney MAIKEL results noted: No [place] 2D echo Noted visualized except distal setum and inferiro wall hypokinesis Left ventricular ejection fraction estimated to be 55-60 %. avoid Nephrotoxics per orders Subjective ROS Limited/Unobtainable: Yes Objective Objective Last 24 Hour Vital Signs Date Time Temp Pulse Resp B/P (MAP) Pulse Ox O2 Delivery O2 Flow Rate FiO2 05/06/19 16:53 75 24 30 05/06/19 16:00 Mechanical Ventilator 05/06/19 16:00 30 05/06/19 16:00 100.7 81 16 140/78 (98) 99 05/06/19 16:00 71 05/06/19 15:28 73 16 30 05/06/19 13:12 74 16 30 05/06/19 12:00 77 05/06/19 12:00 Mechanical Ventilator 05/06/19 12:00 30 05/06/19 12:00 99.1 86 16 146/77 (100) 99 05/06/19 10:44 78 16 30 05/06/19 08:47 77 16 30 05/06/19 08:00 Mechanical Ventilator 05/06/19 08:00 99.8 87 16 144/78 (100) 97 05/06/19 08:00 77 05/06/19 08:00 30 05/06/19 07:09 79 16 30 05/06/19 04:44 77 16 30 05/06/19 04:00 98.2 68 16 150/73 (98) 98 05/06/19 04:00 30 05/06/19 04:00 Mechanical Ventilator 05/06/19 03:25 75 05/06/19 02:40 73 16 30 7/11/19 00:36 82 16 30 05/06/19 00:00 98.0 70 16 145/81 (102) 98 05/06/19 00:00 30 05/06/19 00:00 Mechanical Ventilator 05/05/19 23:27 73 05/05/19 22:34 72 16 30 05/05/19 20:41 68 16 30 05/05/19 20:00 72 05/05/19 20:00 98.8 69 16 138/79 (98) 100 05/05/19 20:00 Mechanical Ventilator 05/05/19 20:00 30 05/05/19 18:40 78 16 30 05/05/19 18:06 100.0 05/05/19 17:27 91 16 30 Intake and Output 05/05/19 05/06/19 19:00 07:00 Intake Total 870 ml 840 ml Output Total 350 ml 350 ml Balance 520 ml 490 ml Free Water 150 ml 180 ml Tube Feeding 720 ml 660 ml Output Urine Total 350 ml 350 ml # Bowel Movements 1 Laboratory Tests 05/06/19 04:00: White Blood Count 8.1, Red Blood Count 2.76L, Hemoglobin 8.0L, Hematocrit 25.7L , Mean Corpuscular Volume 93, Mean Corpuscular Hemoglobin 28.9, Mean Corpuscular Hemoglobin Concent 31.0L, Red Cell Distribution Width 17.5H, Platelet Count 166, Mean Platelet Volume 7.3, Neutrophils (%) (Auto) 68.5, Lymphocytes (%) (Auto) 21.2, Monocytes (%) (Auto) 4.6, Eosinophils (%) (Auto) 4.8H, Basophils (%) (Auto) 1.0, Erythrocyte Sedimentation Rate 134H, Sodium Level 149H, Potassium Level 4.3, Chloride Level 113H, Carbon Dioxide Level 30, Anion Gap 6, Blood Urea Nitrogen 59H, Creatinine 1.7H, Estimat Glomerular Filtration Rate , Glucose Level 141H, Calcium Level 8.6, Phosphorus Level 3.8, Magnesium Level 2.0, Total Bilirubin 0.3, Aspartate Amino Transf (AST/SGOT) 28, Alanine Aminotransferase (ALT/SGPT) 12, Alkaline Phosphatase 84, C-Reactive Protein, Quantitative 22.8H, Total Protein 6.4, Albumin 1.5L, Globulin 4.9, Albumin/Globulin Ratio 0.3L Height (Feet): 5 Height (Inches): 3.00 Weight (Pounds): 227 General Appearance: no apparent distress EENT: other - vented Cardiovascular: tachycardia Respiratory/Chest: decreased breath sounds Abdomen: distended Objective no change Wally Spivey MD May 06, 2019 17:12
[2019-05-06] MEDS: Acetaminophen 650mg/20.3ml GT PRN (18:05)
--- NOTE | 2019-05-06 19:07 | NUR ---
HAND-OFF: Report given to Gustabo BURNETT.
--- NOTE | 2019-05-06 19:10 | NUR ---
NURSE NOTES: BEDSIDE REPORT RECEIVED FROM HORTENCIA MEDRANO. PT OPENS EYES SPONTANEOUSLY, TRACKS W/ EYES, UNABLE TO FOLLOW COMMANDS. HAND PROFILER SHOWING NSR. SHILEY 8; AC 16, TV 500, FIO2 30, PEEP 5. NO S/S OF DISTRESS NOTED. GLU 1.2 @ 60 TOLERATING WELL. SKIN CLEAN, DRY, DRESSINGS INTACT. CAMILO NOTED AND DRAINING. SUZIE PICC ASYMPTOMATIC. BED IS LOCKED IN LOWEST POSITION, SR X3, CALL FIGUEROA W/ IN REACH, SAFETY PRECAUTIONS CONTINUED. WILL CONTINUE TO MONITOR AND FOLLOW W/ PLAN OF CARE.
[2019-05-06 20:00] VITALS: BP 135/75
--- NOTE | 2019-05-06 20:18 | Neurology Progress Note ---
Interim History Interim History ROS Limited/Unobtainable: Yes Complaints: AMS Events: Weaning attempts unsuccessful, PEG placed Interim History no major changes pending dispo Objective Physical Exam Last Vital Signs Date Time Temp Pulse Resp B/P (MAP) Pulse Ox O2 Delivery O2 Flow Rate FiO2 05/06/19 18:54 77 16 30 05/06/19 18:35 100.7 05/06/19 16:00 Mechanical Ventilator 05/06/19 16:00 140/78 (98) 99 Laboratory Tests Test 05/06/19 04:00 White Blood Count 8.1 K/UL (4.8-10.8) Red Blood Count 2.76 M/UL (4.20-5.40) L Hemoglobin 8.0 G/DL (12.0-16.0) L Hematocrit 25.7 % (37.0-47.0) L Mean Corpuscular Volume 93 FL (80-99) Mean Corpuscular Hemoglobin 28.9 PG (27.0-31.0) Mean Corpuscular Hemoglobin Concent 31.0 G/DL (32.0-36.0) L Red Cell Distribution Width 17.5 % (11.6-14.8) H Platelet Count 166 K/UL (150-450) Mean Platelet Volume 7.3 FL (6.5-10.1) Neutrophils (%) (Auto) 68.5 % (45.0-75.0) Lymphocytes (%) (Auto) 21.2 % (20.0-45.0) Monocytes (%) (Auto) 4.6 % (1.0-10.0) Eosinophils (%) (Auto) 4.8 % (0.0-3.0) H Basophils (%) (Auto) 1.0 % (0.0-2.0) Erythrocyte Sedimentation Rate 134 MM/HR (0-30) H Sodium Level 149 MMOL/L (136-145) H Potassium Level 4.3 MMOL/L (3.5-5.1) Chloride Level 113 MMOL/L (98-107) H Carbon Dioxide Level 30 MMOL/L (21-32) Anion Gap 6 mmol/L (5-15) Blood Urea Nitrogen 59 mg/dL (7-18) H Creatinine 1.7 MG/DL (0.55-1.30) H Estimat Glomerular Filtration Rate mL/min (>60) Glucose Level 141 MG/DL (74-106) H Calcium Level 8.6 MG/DL (8.5-10.1) Phosphorus Level 3.8 MG/DL (2.5-4.9) Magnesium Level 2.0 MG/DL (1.8-2.4) Total Bilirubin 0.3 MG/DL (0.2-1.0) Aspartate Amino Transf (AST/SGOT) 28 U/L (15-37) Alanine Aminotransferase (ALT/SGPT) 12 U/L (12-78) Alkaline Phosphatase 84 U/L (46-116) C-Reactive Protein, Quantitative 22.8 mg/dL (0.00-0.90) H Total Protein 6.4 G/DL (6.4-8.2) Albumin 1.5 G/DL (3.4-5.0) L Globulin 4.9 g/dL Albumin/Globulin Ratio 0.3 (1.0-2.7) L General: well developed, well nourished, no acute distress Head: normocophalic Neck: no rigidity EENT: benign Neurologic Exam Mental Status: awake, other Speech: other Language: other Cranial Nerve II: fundus normal, visual cruz, no papilledema, other Cranial Nerves III, IV, : PERRLA, EOMI, other Cranial Nerve V: other Cranial Nerve VII: other Cranial Nerve VIII: other Cranial Nerve IX: other Cranial Nerve XI: other Cranial Nerve XII: other Motor System: other Sensory: other Coordination: other Gait: other Objective Not following commands Moving all 4 ext spontaneously CN intact Impression/Recommendations Problems: (1) Respiratory distress (2) Malnutrition (3) UTI (urinary tract infection) (4) Diabetic nephropathy (5) Renal failure (ARF), acute on chronic (6) Anemia in chronic kidney disease (CKD) (7) Pulmonary hypertension (8) Acute respiratory failure (9) Respiratory failure (10) Hypernatremia (11) Sepsis (12) Pneumonia (13) History of CVA (cerebrovascular accident) (14) CAD (coronary artery disease) (15) Right hemiplegia (16) Diabetes mellitus (17) Hypertensive heart disease (18) 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 (19) Nosocomial pneumonia (20) At high risk for aspiration (21) Acute metabolic encephalopathy Status: unchanged Recommendations Cont current management map > 65 neuro exam non focal - monitor sp trach dispo pending Geo Espitia MD May 06, 2019 20:18
[2019-05-06] MEDS: Dyna-Hex 2% Top Sol 2oz TOPIC SCH (20:27)
--- NOTE | 2019-05-06 23:03 | General Progress Note ---
Assessment/Plan Problem List: (1) Respiratory distress ICD Codes: R06.03 - Acute respiratory distress SNOMED: 845330145 (2) UTI (urinary tract infection) ICD Codes: N39.0 - Urinary tract infection, site not specified SNOMED: 84925271 (3) Diabetic nephropathy ICD Codes: E11.21 - Type 2 diabetes mellitus with diabetic nephropathy SNOMED: 505258181 (4) Renal failure (ARF), acute on chronic ICD Codes: N17.9 - Acute kidney failure, unspecified; N18.9 - Chronic kidney disease, unspecified SNOMED: 389069936 (5) Anemia in chronic kidney disease (CKD) ICD Codes: N18.9 - Chronic kidney disease, unspecified; D63.1 - Anemia in chronic kidney disease SNOMED: 074761667 (6) Pulmonary hypertension ICD Codes: I27.20 - Pulmonary hypertension, unspecified SNOMED: 71495932 (7) Acute respiratory failure ICD Codes: J96.00 - Acute respiratory failure, unspecified whether with hypoxia or hypercapnia SNOMED: 30635376 (8) Sepsis ICD Codes: A41.9 - Sepsis, unspecified organism SNOMED: 19915818 (9) Pneumonia ICD Codes: J18.9 - Pneumonia, unspecified organism SNOMED: 726315142 Qualifiers: Qualified Codes: J18.9 - Pneumonia, unspecified organism (10) History of CVA (cerebrovascular accident) ICD Codes: Z86.73 - Personal history of transient ischemic attack (TIA), and cerebral infarction without residual deficits SNOMED: 819237601 (11) CAD (coronary artery disease) ICD Codes: I25.10 - Atherosclerotic heart disease of [place] coronary artery without angina pectoris SNOMED: 37601643 (12) Diabetes mellitus ICD Codes: E11.9 - Type 2 diabetes mellitus without complications SNOMED: 78594417 (13) Hypertensive heart disease ICD Codes: I11.9 - Hypertensive heart disease without heart failure SNOMED: 04537813 (14) Nosocomial pneumonia ICD Codes: J18.9 - Pneumonia, unspecified organism; Y95 - Nosocomial condition SNOMED: 262222407 (15) Acute metabolic encephalopathy ICD Codes: G93.41 - Metabolic encephalopathy SNOMED: 45493436, 552637761 Status: progressing, unchanged Assessment/Plan: niddm htn sepsis and pna improved check sugars htn vitals stable Subjective ROS Limited/Unobtainable: Yes Allergies: Coded Allergies: No Known Allergies (Unverified , 04/12/19) Objective Last 24 Hour Vital Signs Date Time Temp Pulse Resp B/P (MAP) Pulse Ox O2 Delivery O2 Flow Rate FiO2 05/06/19 21:10 90 16 30 05/06/19 18:54 77 16 30 05/06/19 18:35 100.7 05/06/19 16:53 75 24 30 05/06/19 16:00 Mechanical Ventilator 05/06/19 16:00 30 05/06/19 16:00 100.7 81 16 140/78 (98) 99 05/06/19 16:00 71 05/06/19 15:28 73 16 30 05/06/19 13:12 74 16 30 05/06/19 12:00 77 05/06/19 12:00 Mechanical Ventilator 05/06/19 12:00 30 05/06/19 12:00 99.1 86 16 146/77 (100) 99 05/06/19 10:44 78 16 30 05/06/19 08:47 77 16 30 05/06/19 08:00 Mechanical Ventilator 05/06/19 08:00 99.8 87 16 144/78 (100) 97 05/06/19 08:00 77 05/06/19 08:00 30 05/06/19 07:09 79 16 30 05/06/19 04:44 77 16 30 05/06/19 04:00 98.2 68 16 150/73 (98) 98 05/06/19 04:00 30 05/06/19 04:00 Mechanical Ventilator 05/06/19 03:25 75 05/06/19 02:40 73 16 30 05/06/19 00:36 82 16 30 05/06/19 00:00 98.0 70 16 145/81 (102) 98 05/06/19 00:00 30 05/06/19 00:00 Mechanical Ventilator 05/05/19 23:27 73 Intake and Output 05/05/19 05/06/19 19:00 07:00 Intake Total 870 ml 900 ml Output Total 350 ml 350 ml Balance 520 ml 550 ml Free Water 150 ml 180 ml Tube Feeding 720 ml 720 ml Output Urine Total 350 ml 350 ml # Bowel Movements 1 Laboratory Tests 05/06/19 04:00: White Blood Count 8.1, Red Blood Count 2.76L, Hemoglobin 8.0L, Hematocrit 25.7L , Mean Corpuscular Volume 93, Mean Corpuscular Hemoglobin 28.9, Mean Corpuscular Hemoglobin Concent 31.0L, Red Cell Distribution Width 17.5H, Platelet Count 166, Mean Platelet Volume 7.3, Neutrophils (%) (Auto) 68.5, Lymphocytes (%) (Auto) 21.2, Monocytes (%) (Auto) 4.6, Eosinophils (%) (Auto) 4.8H, Basophils (%) (Auto) 1.0, Erythrocyte Sedimentation Rate 134H, Sodium Level 149H, Potassium Level 4.3, Chloride Level 113H, Carbon Dioxide Level 30, Anion Gap 6, Blood Urea Nitrogen 59H, Creatinine 1.7H, Estimat Glomerular Filtration Rate , Glucose Level 141H, Calcium Level 8.6, Phosphorus Level 3.8, Magnesium Level 2.0, Total Bilirubin 0.3, Aspartate Amino Transf (AST/SGOT) 28, Alanine Aminotransferase (ALT/SGPT) 12, Alkaline Phosphatase 84, C-Reactive Protein, Quantitative 22.8H, Total Protein 6.4, Albumin 1.5L, Globulin 4.9, Albumin/Globulin Ratio 0.3L Height (Feet): 5 Height (Inches): 3.00 Weight (Pounds): 227 Cardiovascular: normal rate Respiratory/Chest: normal breath sounds Abdomen: soft Glendy Taylor MD May 06, 2019 23:03
[2019-05-07] VITALS: BP 142/73
[2019-05-07 04:00] VITALS: BP 156/80
[2019-05-07] MEDS: NovoLOG Insulin Flexpen SUBQ SCH ×3 (05:05→17:53)
--- NOTE | 2019-05-07 07:20 | NUR ---
NURSE NOTES: RECEIVED BED SIDE REPORT FROM TROY GIMP TACKER OF NOC SHIFT. REC,D PT WITH HOB ELEVATED 45 DEGREE NON-VERBAL TRACH TO VENT ,TOLERATING WELL CURRENTS VENT SETTINGS. RENDERED TRACH CARE AND ORAL HYGIENE ,SX,D MOD AMT OF WHITE TICK SECRETIONS NOTED.PT RECEIVING GLUCERNA 1.2 @ 60ML/HRS VIA GT,NO RESIDUAL TOLERATING WELL.PT REPOSITIONED IN BED Q2HRS TO PROVIDE COMFORT AND PREVENT FURTHER SKIN BREAKDOWN. NO ACUTE DISTRESS NOTED AT THIS TIME. WILL CONT TO MONITOR.
--- NOTE | 2019-05-07 07:22 | NUR ---
HAND-OFF: Report given to HORTENCIA JOHNSON.
[2019-05-07 07:42] VITALS: BP 147/86
--- NOTE | 2019-05-07 08:46 | General Progress Note ---
Assessment/Plan Problem List: (1) Acute metabolic encephalopathy ICD Codes: G93.41 - Metabolic encephalopathy SNOMED: 69745569, 278464458 (2) 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 ICD Codes: E11.22 - Type 2 diabetes mellitus with diabetic chronic kidney disease; N18.4 - Chronic kidney disease, stage 4 (severe) SNOMED: 40533289, 627262134, 540473674 (3) Diabetes mellitus ICD Codes: E11.9 - Type 2 diabetes mellitus without complications SNOMED: 03983804 (4) CAD (coronary artery disease) ICD Codes: I25.10 - Atherosclerotic heart disease of [place] coronary artery without angina pectoris SNOMED: 34042501 (5) History of CVA (cerebrovascular accident) ICD Codes: Z86.73 - Personal history of transient ischemic attack (TIA), and cerebral infarction without residual deficits SNOMED: 777258400 (6) Anemia in chronic kidney disease (CKD) ICD Codes: N18.9 - Chronic kidney disease, unspecified; D63.1 - Anemia in chronic kidney disease SNOMED: 381043589 (7) Diabetic nephropathy ICD Codes: E11.21 - Type 2 diabetes mellitus with diabetic nephropathy SNOMED: 638696258 Status: progressing, unchanged Assessment/Plan: GTF fu labs fu pulm recs prn blood transfusion ppi dc planning per primary team Subjective ROS Limited/Unobtainable: No Allergies: Coded Allergies: No Known Allergies (Unverified , 04/12/19) Objective Last 24 Hour Vital Signs Date Time Temp Pulse Resp B/P (MAP) Pulse Ox O2 Delivery O2 Flow Rate FiO2 05/07/19 08:42 73 16 30 05/07/19 08:00 30 05/07/19 08:00 Mechanical Ventilator 05/07/19 07:42 99.0 76 18 147/86 (106) 99 05/07/19 06:47 72 16 100 Mechanical Ventilator 30 05/07/19 06:45 72 16 30 05/07/19 04:51 74 16 30 05/07/19 04:00 Mechanical Ventilator 05/07/19 04:00 79 05/07/19 04:00 30 05/07/19 04:00 98.2 84 16 156/80 (105) 98 05/07/19 03:54 91 16 30 05/07/19 01:18 67 16 30 05/07/19 00:00 Mechanical Ventilator 05/07/19 00:00 98.1 83 16 142/73 (96) 98 05/06/19 23:35 76 05/06/19 23:28 74 16 30 05/06/19 21:10 90 16 30 05/06/19 20:00 Mechanical Ventilator 05/06/19 20:00 99.0 84 16 135/75 (95) 98 05/06/19 20:00 79 05/06/19 20:00 30 05/06/19 18:54 77 16 30 05/06/19 18:35 100.7 05/06/19 16:53 75 24 30 05/06/19 16:00 Mechanical Ventilator 05/06/19 16:00 30 05/06/19 16:00 100.7 81 16 140/78 (98) 99 05/06/19 16:00 71 05/06/19 15:28 73 16 30 05/06/19 13:12 74 16 30 05/06/19 12:00 77 05/06/19 12:00 Mechanical Ventilator 05/06/19 12:00 30 05/06/19 12:00 99.1 86 16 146/77 (100) 99 05/06/19 10:44 78 16 30 05/06/19 08:47 77 16 30 Intake and Output 05/06/19 05/07/19 18:59 06:59 Intake Total 870 ml 900 ml Output Total 400 ml 450 ml Balance 470 ml 450 ml Free Water 150 ml 180 ml Tube Feeding 720 ml 720 ml Output Urine Total 400 ml 450 ml # Bowel Movements 2 Height (Feet): 5 Height (Inches): 3.00 Weight (Pounds): 228 General Appearance: no apparent distress EENT: normal ENT inspection Neck: supple Cardiovascular: normal rate Respiratory/Chest: decreased breath sounds Abdomen: normal bowel sounds, non tender, soft Extremities: non-tender Darron Gentile MD May 07, 2019 08:46
--- NOTE | 2019-05-07 09:45 | Progress Note ---
DATE: 05/07/2019 SUBJECTIVE: This is a 79-year-old female with sepsis. She has altered mental status, confusion, disorganized thought process, and decline in cognition below her baseline. That is why attending physician has requested daily psychiatric consultation. MENTAL STATUS EXAMINATION: This is a 79-year-old female patient. Appearance is disheveled. Attitude, irritable and agitated. Affect, guarded and restricted. Intellect, poor. Mood, depressed and anxious. Motor activity, psychomotor agitation. Attention span is poor. Orientation x2. Speech is low volume, slurred. Thought process, disorganized and illogical. Insight and judgment is poor. DIAGNOSIS: Schizoaffective, bipolar type. PLAN: Continue treatment of depression with medication to stabilize her mood and clear disorganized thought process. A 20 minutes of behavioral management. Chart reviewed. Discussed with staff. Seen and assessed at bedside. Omar Glover M.D. DR: RELL JOB#: [id number] CC:
--- NOTE | 2019-05-07 10:16 | NUR ---
CASE MANAGEMENT: REVIEW 05/07/2019 SI: ACUTE RESPIRATORY FAILURE. ENCEPHALOPATHY. PNA T 99 HR 76 RR 18 B/P 147/86 SATS 99% ON MECH VENT FIO2 30 NO LABS TODAY IS: FOLATE GT QD PREVACID GT QD INSULIN ASPART SUBQ AC/HS : SDU STATUS
--- NOTE | 2019-05-07 10:19 | NUR ---
INSURANCE REVIEWS FAXED TO [facility] AT [facility] T: [phone] F:[phone]
--- NOTE | 2019-05-07 11:39 | Pulmonolgy Critical Care Note ---
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 (7) Hypertensive heart disease (8) Right hemiplegia (9) History of CVA (cerebrovascular accident) (10) CAD (coronary artery disease) Respiratory: monitor respiratory rate, adjust FIO2, CXR Cardiac: continue pressors, continue to monitor HR/BP Renal: F/U I&O, keep IV fluid, check electrolytes Infectious Disease: check cultures Gastrointestinal: continue feedings/current rate, hold feedings Endocrine: check HgA1C Hematologic: monitor H/H, transfuse if hgb<8.5 Neurologic: keep patient comfortable Time Spent (Minutes): 40 Notes Reviewed: social service assistant, cardio, renal Critical Care - Objective Last 24 Hour Vital Signs Date Time Temp Pulse Resp B/P (MAP) Pulse Ox O2 Delivery O2 Flow Rate FiO2 05/07/19 10:49 67 16 30 05/07/19 08:42 73 16 30 05/07/19 08:00 30 05/07/19 08:00 Mechanical Ventilator 05/07/19 07:42 99.0 76 18 147/86 (106) 99 05/07/19 06:47 72 16 100 Mechanical Ventilator 30 05/07/19 06:45 72 16 30 05/07/19 04:51 74 16 30 05/07/19 04:00 Mechanical Ventilator 05/07/19 04:00 79 05/07/19 04:00 30 05/07/19 04:00 98.2 84 16 156/80 (105) 98 05/07/19 03:54 91 16 30 05/07/19 01:18 67 16 30 05/07/19 00:00 Mechanical Ventilator 05/07/19 00:00 98.1 83 16 142/73 (96) 98 05/06/19 23:35 76 05/06/19 23:28 74 16 30 05/06/19 21:10 90 16 30 05/06/19 20:00 Mechanical Ventilator 05/06/19 20:00 99.0 84 16 135/75 (95) 98 05/06/19 20:00 79 05/06/19 20:00 30 05/06/19 18:54 77 16 30 05/06/19 18:35 100.7 05/06/19 16:53 75 24 30 05/06/19 16:00 Mechanical Ventilator 05/06/19 16:00 30 05/06/19 16:00 100.7 81 16 140/78 (98) 99 05/06/19 16:00 71 05/06/19 15:28 73 16 30 05/06/19 13:12 74 16 30 05/06/19 12:00 77 05/06/19 12:00 Mechanical Ventilator 05/06/19 12:00 30 05/06/19 12:00 99.1 86 16 146/77 (100) 99 Status: awake Condition: critical HEENT: atraumatic Lungs: clear Heart: HR/BP stable, HR/BP unstable Abdomen: non-tender Decubiti: location Accucheck: 188 Critical Care - Subjective ROS Limited/Unobtainable: No Condition: critical EKG Rhythm: Sinus Rhythm FI02: 30 Vent Support Breath Rate: 16 Vent Support Mode: AC Vent Tidal Volume: 500 Sputum Amount: Moderate PEEP: 5.0 PIP: 36 Tube Feeding Amount: 60 I&O: Intake and Output 05/06/19 05/07/19 19:00 07:00 Intake Total 870 ml 900 ml Output Total 400 ml 450 ml Balance 470 ml 450 ml Free Water 150 ml 180 ml Tube Feeding 720 ml 720 ml Output Urine Total 400 ml 450 ml # Bowel Movements 2 CXR: no change ET-Tube: 7.5 ET Position: 23 Tony Springer MD May 07, 2019 11:39
--- NOTE | 2019-05-07 11:54 | NUR ---
NURSE NOTES:WOUND CARE FOLLOW-UP NOTES: Resolving skin tear noted to R cheek.Base of wound is dry and partially scabbed. Dark skin pigmentation without induration noted to sacrum and buttocks . Perianal excoriation noted. Both heels are dry and blanchable. Moisture associated skin damage noted to bilat axillae and breasts.Skin is denuded at affected areas.No other skin concerns noted. All wound prevention protocols in place and continued as ordered. Tx.Plan: Apply Remedy Antifungal cream to both Axillae and both breasts Twice daily. Apply Moisture Barrier Paste to to artemio-anal areas with each incontinence care. Apply Moisture Barrier Paste to Sacrum. Cover with Optifoam drsg. Change every 3 days and prn. Apply Cavilon Skin Barrier to both heels. Cover each heel with Optifoam drsg. Change very 7 days and prn. APM/MARIA INES mattress. Reposition at least every 2hours or as tolerated. Off-load heels with pillow.
[2019-05-07 12:00] VITALS: BP 133/73
--- NOTE | 2019-05-07 12:03 | NUR ---
RD ASSESSMENT & RECOMMENDATIONS SEE CARE ACTIVITY FOR COMPLETE ASSESSMENT DAILY ESTIMATED NEEDS: Needs based on Sepsis, DM, cardiac, Critical care, wound/ 58kg abw 22-30 kcals/kg 3229-6149 total kcals 1.25-2 g protein/kg 73-116 g total protein 25-30 mL/kg 2393-6265 total fluid mLs NUTRITION DIAGNOSIS: * Swallowing difficulty R/T dysphagia, h/o CVA, respiratory status as evidenced by pt is now s/p PEG and Trach placement. (UPDATED) * Altered nutrition related lab values R/T diabetes, ARF, cardiac hx as evidenced by A1C of 8.1, elev creat (2.4 ->1.7), elev BNP (38624->4917->58156), elev K now wnl. ENTERAL NUTRITION RECOMMENDATIONS: Glucerna 1.2 @ 60ml/hr x 24 hrs to provide 1440ml, 1728 kcal, 86g pro, 1159ml free H2O * Maintain Glucerna 1.2 @ goal as tolerated. Meets 100% est needs. --- W/ ELEV K, REC TF CHANGE TO NEPRO FOR LESS K CONTENT Nepro @ 37m/hr x 24 hrs -> 888ml, 1598kcal, 72g prot, 640ml free water ------ ADDITIONAL RECOMMENDATIONS: * Calibrated bedscale wt for accurate CBW -> daily wts w/ much variation-> rec to RECALIBRATE for accuracy * Monitor K closely- rec NEPRO w/ consistently elev K * Monitor lytes daily, replete as needed * H/o wounds, now bedbound, rec PUMA BID to maintain skin integrity
[2019-05-07] MEDS: Acetaminophen 650mg/20.3ml GT PRN (12:44)
--- NOTE | 2019-05-07 12:44 | NUR ---
NURSE NOTES: PT WITH HI TEMP 99.7 AX, MEDICATED WITH TYLENOL 650MG VIA GT FOR HI TEMP PER M.D ORDERS .WILL CONT TO MONITOR.
--- NOTE | 2019-05-07 12:45 | Nephrology Progress Note ---
Assessment/Plan Problem List: (1) Renal failure (ARF), acute on chronic (2) Diabetic nephropathy (3) Sepsis (4) Pneumonia (5) Right hemiplegia (6) Anemia in chronic kidney disease (CKD) (7) Pulmonary hypertension Assessment intubated- Renal failure; - Pre Renal - ? Underlying Renal Anemia Pneumonia / respiratory failure Sepsis elevated Troponin UTI HyperGlycemia / DM Right Esvin HTN Plan trach 05/03 done kayexelate as needed consider transfusion discussed with RN transfuse for low Hgb as needed K Phos IV as needed venofer Folate 24 H urine protein check 2.4 gram Fraga Hydrate BP and BS control urine studies slow hydrate kidney MAIKEL results noted: No Ferrum 2D echo Noted visualized except distal setum and inferiro wall hypokinesis Left ventricular ejection fraction estimated to be 55-60 %. avoid Nephrotoxics per orders Subjective ROS Limited/Unobtainable: Yes Objective Objective Last 24 Hour Vital Signs Date Time Temp Pulse Resp B/P (MAP) Pulse Ox O2 Delivery O2 Flow Rate FiO2 05/07/19 12:00 99.7 79 19 133/73 (93) 98 05/07/19 10:49 67 16 30 05/07/19 08:42 73 16 30 05/07/19 08:00 30 05/07/19 08:00 Mechanical Ventilator 05/07/19 07:42 99.0 76 18 147/86 (106) 99 05/07/19 06:47 72 16 100 Mechanical Ventilator 30 05/07/19 06:45 72 16 30 05/07/19 04:51 74 16 30 05/07/19 04:00 Mechanical Ventilator 05/07/19 04:00 79 05/07/19 04:00 30 05/07/19 04:00 98.2 84 16 156/80 (105) 98 05/07/19 03:54 91 16 30 05/07/19 01:18 67 16 30 05/07/19 00:00 Mechanical Ventilator 05/07/19 00:00 98.1 83 16 142/73 (96) 98 05/06/19 23:35 76 05/06/19 23:28 74 16 30 05/06/19 21:10 90 16 30 05/06/19 20:00 Mechanical Ventilator 05/06/19 20:00 99.0 84 16 135/75 (95) 98 05/06/19 20:00 79 05/06/19 20:00 30 05/06/19 18:54 77 16 30 05/06/19 18:35 100.7 05/06/19 16:53 75 24 30 05/06/19 16:00 Mechanical Ventilator 05/06/19 16:00 30 05/06/19 16:00 100.7 81 16 140/78 (98) 99 05/06/19 16:00 71 05/06/19 15:28 73 16 30 05/06/19 13:12 74 16 30 Intake and Output 05/06/19 05/07/19 19:00 07:00 Intake Total 870 ml 900 ml Output Total 400 ml 450 ml Balance 470 ml 450 ml Free Water 150 ml 180 ml Tube Feeding 720 ml 720 ml Output Urine Total 400 ml 450 ml # Bowel Movements 2 Height (Feet): 5 Height (Inches): 3.00 Weight (Pounds): 228 General Appearance: no apparent distress EENT: other - trach Cardiovascular: normal rate Respiratory/Chest: decreased breath sounds Abdomen: distended Objective no change Wally Spivey MD May 07, 2019 12:45
--- NOTE | 2019-05-07 13:41 | Infectious Diseases Prog Note ---
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 PNA, sp Rx Pulmonary edema -04/26 CXR: Suspect slightly increased interstitial and airspace edema, over 2 days.Possibly improving small right pleural effusion -04/19 CXR: There is less pulmonary edema compared to yesterday but with moderate residual edema. -04/16 CXR: . Right perihilar and bilateral lower lobe pulmonary consolidation concerning for pneumonia.Small bilateral pleural effusions. CXR - B/L Infiltrates Low grade fevers; recurrent WBCs up to 25; recurrent-- resolved -05/03 u/a neg Cdiff neg Bcx NTD sp cx normal resp nohelia (prelim) -04/24 Cdiff eng 04/16 Sp Cx - C. alb; 04/19 spC. albicans (colonizer) -BCx NTD -legionella ag urine neg Widened mediastinum - right sided aortic arch CXR - Apparent upper mediastinal widening. Possibly due to ectatic vasculature and body habitus, but upper mediastinal mass also possible. Correlate with any prior adiographs and may be available, consider CT for further evaluation if clinically indicated CT 04/13/19 - Right-sided aortic arch, presumably accounting for the apparent upper mediastinal widening demonstrated on recent plain radiograph. No evidence of upper mediastinal mass. Extensive bilateral lower lobe consolidation , likely pneumonia, less extensive left upper lobe consolidation. 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 We will continue to follow the patient during this hospitalization. Subjective Allergies: Coded Allergies: No Known Allergies (Unverified , 04/12/19) Subjective Tm 100.7 Bx NTD no leukocytosis off abx Objective Vital Signs Last 24 Hour Vital Signs Date Time Temp Pulse Resp B/P (MAP) Pulse Ox O2 Delivery O2 Flow Rate FiO2 05/07/19 12:58 71 16 30 7/12/19 12:00 99.7 79 19 133/73 (93) 98 05/07/19 10:49 67 16 30 05/07/19 08:42 73 16 30 05/07/19 08:00 30 05/07/19 08:00 Mechanical Ventilator 05/07/19 07:42 99.0 76 18 147/86 (106) 99 05/07/19 06:47 72 16 100 Mechanical Ventilator 30 05/07/19 06:45 72 16 30 05/07/19 04:51 74 16 30 05/07/19 04:00 Mechanical Ventilator 05/07/19 04:00 79 05/07/19 04:00 30 05/07/19 04:00 98.2 84 16 156/80 (105) 98 05/07/19 03:54 91 16 30 05/07/19 01:18 67 16 30 05/07/19 00:00 Mechanical Ventilator 05/07/19 00:00 98.1 83 16 142/73 (96) 98 05/06/19 23:35 76 05/06/19 23:28 74 16 30 05/06/19 21:10 90 16 30 05/06/19 20:00 Mechanical Ventilator 05/06/19 20:00 99.0 84 16 135/75 (95) 98 05/06/19 20:00 79 05/06/19 20:00 30 05/06/19 18:54 77 16 30 05/06/19 18:35 100.7 05/06/19 16:53 75 24 30 05/06/19 16:00 Mechanical Ventilator 05/06/19 16:00 30 05/06/19 16:00 100.7 81 16 140/78 (98) 99 05/06/19 16:00 71 05/06/19 15:28 73 16 30 Height (Feet): 5 Height (Inches): 3.00 Weight (Pounds): 228 Objective Gen: Awake and talking HEENT: NCAT, MMM, EOMI LUNGS: CTAB, No W CARDS: RRR, S1, S2, No M/R/G, ABD: Soft, NT, ND Current Medications Medications (Trade) Dose Ordered Sig/Kenisha Route PRN Reason Start Time Stop Time Status Last Admin Dose Admin Acetaminophen (Tylenol) 650 mg Q4H PRN GT FEVER 05/04/19 17:45 06/03/19 17:32 05/07/19 12:44 Acetaminophen (Tylenol) 650 mg Q4H PRN RECTAL Fever 05/04/19 17:32 06/03/19 17:31 Chlorhexidine Gluconate (Izzy-Hex 2%) 1 applic DAILY@2000 TOPIC 05/04/19 20:00 05/20/19 19:59 05/06/19 20:27 Dextrose (Dextrose 50%) 25 ml Q30M PRN IV Hypoglycemia 05/04/19 17:45 05/12/19 19:44 Dextrose (Dextrose 50%) 50 ml Q30M PRN IV Hypoglycemia 05/04/19 17:45 05/12/19 19:44 Epoetin Bandar (Epoetin Bandar-EPBX(NON ESRD)) 10,000 unit SUBQ 05/05/19 21:00 05/28/19 20:59 05/05/19 20:29 Folic Acid (Folate) 1 mg DAILY GT 05/05/19 09:00 05/19/19 08:59 05/07/19 10:10 Hydralazine HCl (Apresoline) 10 mg Q2H PRN IV SBP > 170 mmHg 05/04/19 18:05 06/03/19 18:04 Insulin Aspart (NovoLOG) Q6HR SUBQ 05/05/19 00:00 06/04/19 00:00 05/07/19 12:30 Lansoprazole (Prevacid) 30 mg DAILY GT 05/05/19 09:00 05/22/19 08:59 05/07/19 10:10 Midodrine (Pro-Amatine) 10 mg Q8H PRN GT bp below 100 syst 05/04/19 17:33 06/03/19 17:32 Ondansetron HCl (Zofran) 4 mg Q6H PRN IVP Nausea & Vomiting 05/04/19 17:34 06/03/19 17:33 Polyethylene Glycol (Miralax) 17 gm DAILYPRN PRN GT Constipation 05/04/19 17:34 06/03/19 17:33 Cora Baer M.D. May 07, 2019 13:41
--- NOTE | 2019-05-07 13:56 | Surgery Progress Note ---
Surgery Progress Note Subjective Procedure Performed tracheostomy Additional Comments slowly recovering micro noted no acute events. Objective Last 24 Hour Vital Signs Date Time Temp Pulse Resp B/P (MAP) Pulse Ox O2 Delivery O2 Flow Rate FiO2 05/07/19 13:14 98.8 05/07/19 12:58 71 16 30 05/07/19 12:00 99.7 79 19 133/73 (93) 98 05/07/19 10:49 67 16 30 05/07/19 08:42 73 16 30 05/07/19 08:00 30 05/07/19 08:00 Mechanical Ventilator 05/07/19 07:42 99.0 76 18 147/86 (106) 99 05/07/19 06:47 72 16 100 Mechanical Ventilator 30 05/07/19 06:45 72 16 30 05/07/19 04:51 74 16 30 05/07/19 04:00 Mechanical Ventilator 05/07/19 04:00 79 05/07/19 04:00 30 05/07/19 04:00 98.2 84 16 156/80 (105) 98 05/07/19 03:54 91 16 30 05/07/19 01:18 67 16 30 05/07/19 00:00 Mechanical Ventilator 05/07/19 00:00 98.1 83 16 142/73 (96) 98 05/06/19 23:35 76 05/06/19 23:28 74 16 30 05/06/19 21:10 90 16 30 05/06/19 20:00 Mechanical Ventilator 05/06/19 20:00 99.0 84 16 135/75 (95) 98 05/06/19 20:00 79 05/06/19 20:00 30 05/06/19 18:54 77 16 30 05/06/19 16:53 75 24 30 05/06/19 16:00 Mechanical Ventilator 05/06/19 16:00 30 05/06/19 16:00 100.7 81 16 140/78 (98) 99 05/06/19 16:00 71 05/06/19 15:28 73 16 30 I&O Intake and Output 05/06/19 05/07/19 19:00 07:00 Intake Total 870 ml 900 ml Output Total 400 ml 450 ml Balance 470 ml 450 ml Free Water 150 ml 180 ml Tube Feeding 720 ml 720 ml Output Urine Total 400 ml 450 ml # Bowel Movements 2 Dressing: dry Wound: clean Cardiovascular: RSR Respiratory: clear Abdomen: soft, present bowel sounds, non-distended Extremities: no cyanosis Plan Problems: (1) Respiratory distress Assessment & Plan: s/p trach stable wean vent as tolerated downgraded improving will follow with recs dressing prn (2) Malnutrition (3) UTI (urinary tract infection) (4) Diabetic nephropathy (5) Renal failure (ARF), acute on chronic (6) Anemia in chronic kidney disease (CKD) (7) Pulmonary hypertension (8) Acute respiratory failure (9) Respiratory failure (10) Hypernatremia (11) Sepsis Assessment & Plan: cont with current care trend labs will follow with recs (12) Pneumonia (13) History of CVA (cerebrovascular accident) (14) CAD (coronary artery disease) (15) Right hemiplegia Assessment & Plan: Sacral pressure injury resolved-dry peelingh skin without erythema noted. Incontinence associated dermatitis noted to medial aspects of both thighs,abd folds and perineum .Affected areas are erythematous and denuded. Moisture associated dermatitis noted to R and L axillae. erythema with denuded skin skin noted to affected areas. Both heels are dry ,firm and blanchable. Tx.Plan: Wash and pat dry R and L axillae,abd folds,perineum and medial aspects of both upper thighs. Apply Remedy Antifungal oint Twice Daily. Apply Moisture Barrier Paste to Sacrum . Cover with Optifoam drsg. Change every 3 days and prn. Apply Caviilon Skin Barrier to both heels. Cover each heel with Optifoam drsg. Change every 7 days and prn. APM/MARIA INES mattress. Reposition at least every 2houers or as tolerated. Off-load heels with pillow. (16) Diabetes mellitus (17) Hypertensive heart disease (18) 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 (19) Nosocomial pneumonia (20) At high risk for aspiration (21) Acute metabolic encephalopathy Devaughn Marin May 07, 2019 13:56
[2019-05-07 16:00] VITALS: BP 130/67
--- NOTE | 2019-05-07 16:04 | Neurology Progress Note ---
Interim History Interim History ROS Limited/Unobtainable: Yes Complaints: AMS Events: Weaning attempts unsuccessful, PEG placed Interim History same exam Objective Physical Exam Last Vital Signs Date Time Temp Pulse Resp B/P (MAP) Pulse Ox O2 Delivery O2 Flow Rate FiO2 05/07/19 15:06 69 16 30 05/07/19 13:14 98.8 05/07/19 12:00 Mechanical Ventilator 05/07/19 12:00 133/73 (93) 98 General: well developed, well nourished, no acute distress Head: normocophalic Neck: no rigidity EENT: benign Neurologic Exam Mental Status: awake, other Speech: other Language: other Cranial Nerve II: fundus normal, visual cruz, no papilledema, other Cranial Nerves III, IV, : PERRLA, EOMI, other Cranial Nerve V: other Cranial Nerve VII: other Cranial Nerve VIII: other Cranial Nerve IX: other Cranial Nerve XI: other Cranial Nerve XII: other Motor System: other Sensory: other Coordination: other Gait: other Objective Not following commands Moving all 4 ext spontaneously CN intact Impression/Recommendations Problems: (1) Respiratory distress (2) Malnutrition (3) UTI (urinary tract infection) (4) Diabetic nephropathy (5) Renal failure (ARF), acute on chronic (6) Anemia in chronic kidney disease (CKD) (7) Pulmonary hypertension (8) Acute respiratory failure (9) Respiratory failure (10) Hypernatremia (11) Sepsis (12) Pneumonia (13) History of CVA (cerebrovascular accident) (14) CAD (coronary artery disease) (15) Right hemiplegia (16) Diabetes mellitus (17) Hypertensive heart disease (18) 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 (19) Nosocomial pneumonia (20) At high risk for aspiration (21) Acute metabolic encephalopathy Status: progressing, unchanged Recommendations Cont current management map > 65 neuro exam non focal - monitor sp trach dispo pending Geo Espitia MD May 07, 2019 16:04
--- NOTE | 2019-05-07 17:05 | Cardiac Electrophysiology PN ---
Assessment/Plan Assessment/Plan 1. Atrial flutter, self terminated. In SR. 2. Hypotension. Resolved. 3. Coronary artery disease. On Plavix 75 mg daily 4. Respiratory failure, intubated EF 60%.S/P Tracheostomy 05/03/19 5. Sepsis. White count 25,000. On IV abx 6. Anemia.S/P PRBC. 7. Renal failure BUN/Cr improved with hydration by Dr. Spivey 8. Dysphagia. S/P PEG 04/22/19 9. History of CVA with hemiplegia. 10. Nonverbal status. 11. Full code 12. Mild fever. Resolved with Tylenol. Off Abx DW RN Subjective Subjective S/P Tracheostomy 05/03/19. In SR on the Vent. Opens her eyes and tracks Transfer to [facility] held today for fever Objective Last 24 Hour Vital Signs Date Time Temp Pulse Resp B/P (MAP) Pulse Ox O2 Delivery O2 Flow Rate FiO2 05/07/19 16:41 72 16 30 05/07/19 16:00 98.2 78 18 130/67 (88) 99 05/07/19 16:00 30 05/07/19 16:00 Mechanical Ventilator 05/07/19 15:06 69 16 30 05/07/19 13:14 98.8 05/07/19 12:58 71 16 30 05/07/19 12:00 Mechanical Ventilator 05/07/19 12:00 99.7 79 19 133/73 (93) 98 05/07/19 12:00 66 05/07/19 12:00 30 05/07/19 10:49 67 16 30 05/07/19 08:42 73 16 30 05/07/19 08:00 78 05/07/19 08:00 30 05/07/19 08:00 Mechanical Ventilator 05/07/19 07:42 99.0 76 18 147/86 (106) 99 05/07/19 06:47 72 16 100 Mechanical Ventilator 30 05/07/19 06:45 72 16 30 05/07/19 04:51 74 16 30 05/07/19 04:00 Mechanical Ventilator 05/07/19 04:00 79 05/07/19 04:00 30 05/07/19 04:00 98.2 84 16 156/80 (105) 98 05/07/19 03:54 91 16 30 05/07/19 01:18 67 16 30 05/07/19 00:00 Mechanical Ventilator 05/07/19 00:00 98.1 83 16 142/73 (96) 98 05/06/19 23:35 76 05/06/19 23:28 74 16 30 05/06/19 21:10 90 16 30 05/06/19 20:00 Mechanical Ventilator 05/06/19 20:00 99.0 84 16 135/75 (95) 98 05/06/19 20:00 79 05/06/19 20:00 30 05/06/19 18:54 77 16 30 Intake and Output 05/06/19 05/07/19 19:00 07:00 Intake Total 870 ml 900 ml Output Total 400 ml 450 ml Balance 470 ml 450 ml Free Water 150 ml 180 ml Tube Feeding 720 ml 720 ml Output Urine Total 400 ml 450 ml # Bowel Movements 2 Objective HEAD AND NECK: No JVD. S/P tracheostomy LUNGS: Coarse rhonchi bilaterally. CARDIOVASCULAR: Regular S1 and S2 with no gallop. ABDOMEN: Soft.PEG in place EXTREMITIES: No pitting edema. Claude Pena MD May 07, 2019 17:05
--- NOTE | 2019-05-07 19:00 | NUR ---
NURSE NOTES: BEDSIDE REPORT RECEIVED FROM HORTENCIA JOHNSON. PT OPENS EYES SPONTANEOUSLY, TRACKS W/ EYES, UNABLE TO FOLLOW COMMANDS. CROCHET BEADER SHOWING NSR. SHILEY 8; AC 16, TV 500, FIO2 30, PEEP 5. NO S/S OF DISTRESS NOTED. GLU 1.2 @ 60 TOLERATING WELL. SKIN CLEAN, DRY, DRESSINGS INTACT. CAMILO NOTED AND DRAINING. SUZIE PICC ASYMPTOMATIC. BED IS LOCKED IN LOWEST POSITION, SR X3, CALL FIGUEROA W/ IN REACH, SAFETY PRECAUTIONS CONTINUED. WILL CONTINUE TO MONITOR AND FOLLOW W/ PLAN OF CARE.
--- NOTE | 2019-05-07 19:10 | NUR ---
HAND-OFF: Report given to .TROY BURNETT.
[2019-05-07 20:00] VITALS: BP 149/80
[2019-05-07] MEDS: Dyna-Hex 2% Top Sol 2oz TOPIC SCH (20:40)
[2019-05-07] MEDS: Epoetin Alfa-EPBX (NON ESRD)10,000 unit/ml vial SUBQ SCH (20:40)
--- NOTE | 2019-05-07 21:36 | General Progress Note ---
Assessment/Plan Problem List: (1) Respiratory distress ICD Codes: R06.03 - Acute respiratory distress SNOMED: 652350476 (2) UTI (urinary tract infection) ICD Codes: N39.0 - Urinary tract infection, site not specified SNOMED: 82746059 (3) Diabetic nephropathy ICD Codes: E11.21 - Type 2 diabetes mellitus with diabetic nephropathy SNOMED: 034676083 (4) Renal failure (ARF), acute on chronic ICD Codes: N17.9 - Acute kidney failure, unspecified; N18.9 - Chronic kidney disease, unspecified SNOMED: 032918436 (5) Anemia in chronic kidney disease (CKD) ICD Codes: N18.9 - Chronic kidney disease, unspecified; D63.1 - Anemia in chronic kidney disease SNOMED: 924423894 (6) Pulmonary hypertension ICD Codes: I27.20 - Pulmonary hypertension, unspecified SNOMED: 63926684 (7) Acute respiratory failure ICD Codes: J96.00 - Acute respiratory failure, unspecified whether with hypoxia or hypercapnia SNOMED: 76441885 (8) Sepsis ICD Codes: A41.9 - Sepsis, unspecified organism SNOMED: 92235082 (9) Pneumonia ICD Codes: J18.9 - Pneumonia, unspecified organism SNOMED: 168582023 Qualifiers: Qualified Codes: J18.9 - Pneumonia, unspecified organism (10) History of CVA (cerebrovascular accident) ICD Codes: Z86.73 - Personal history of transient ischemic attack (TIA), and cerebral infarction without residual deficits SNOMED: 779964890 (11) CAD (coronary artery disease) ICD Codes: I25.10 - Atherosclerotic heart disease of [place] coronary artery without angina pectoris SNOMED: 30525542 (12) Diabetes mellitus ICD Codes: E11.9 - Type 2 diabetes mellitus without complications SNOMED: 51013970 (13) Hypertensive heart disease ICD Codes: I11.9 - Hypertensive heart disease without heart failure SNOMED: 73351953 (14) Nosocomial pneumonia ICD Codes: J18.9 - Pneumonia, unspecified organism; Y95 - Nosocomial condition SNOMED: 047607314 (15) Acute metabolic encephalopathy ICD Codes: G93.41 - Metabolic encephalopathy SNOMED: 53888326, 755602657 Status: progressing, unchanged Assessment/Plan: niddm htn sepsis and pna vitals stable reviewed chart and labs no change afebrile vitals stable Subjective ROS Limited/Unobtainable: Yes Allergies: Coded Allergies: No Known Allergies (Unverified , 04/12/19) Objective Last 24 Hour Vital Signs Date Time Temp Pulse Resp B/P (MAP) Pulse Ox O2 Delivery O2 Flow Rate FiO2 05/07/19 21:23 83 16 30 05/07/19 20:00 94 05/07/19 20:00 Mechanical Ventilator 05/07/19 20:00 30 05/07/19 20:00 99.4 87 19 149/80 (103) 98 05/07/19 19:26 85 16 30 05/07/19 16:41 72 16 30 05/07/19 16:00 98.2 78 18 130/67 (88) 99 05/07/19 16:00 30 05/07/19 16:00 71 05/07/19 16:00 Mechanical Ventilator 05/07/19 15:06 69 16 30 05/07/19 13:14 98.8 05/07/19 12:58 71 16 30 05/07/19 12:00 Mechanical Ventilator 05/07/19 12:00 99.7 79 19 133/73 (93) 98 05/07/19 12:00 66 05/07/19 12:00 30 05/07/19 10:49 67 16 30 05/07/19 08:42 73 16 30 05/07/19 08:00 78 05/07/19 08:00 30 05/07/19 08:00 Mechanical Ventilator 05/07/19 07:42 99.0 76 18 147/86 (106) 99 05/07/19 06:47 72 16 100 Mechanical Ventilator 30 05/07/19 06:45 72 16 30 05/07/19 04:51 74 16 30 05/07/19 04:00 Mechanical Ventilator 05/07/19 04:00 79 05/07/19 04:00 30 05/07/19 04:00 98.2 84 16 156/80 (105) 98 05/07/19 03:54 91 16 30 05/07/19 01:18 67 16 30 05/07/19 00:00 Mechanical Ventilator 05/07/19 00:00 98.1 83 16 142/73 (96) 98 05/06/19 23:35 76 05/06/19 23:28 74 16 30 Intake and Output 05/06/19 05/07/19 19:00 07:00 Intake Total 870 ml 900 ml Output Total 400 ml 450 ml Balance 470 ml 450 ml Free Water 150 ml 180 ml Tube Feeding 720 ml 720 ml Output Urine Total 400 ml 450 ml # Bowel Movements 2 Height (Feet): 5 Height (Inches): 3.00 Weight (Pounds): 228 Neck: supple Cardiovascular: normal rate Respiratory/Chest: lungs clear Abdomen: soft Glendy Taylor MD May 07, 2019 21:36
[2019-05-08] VITALS: BP 150/87
[2019-05-08] MEDS: NovoLOG Insulin Flexpen SUBQ SCH ×5 (00:30→23:07)
[2019-05-08 04:00] VITALS: BP 146/78
--- NOTE | 2019-05-08 06:22 | Pulmonolgy Critical Care Note ---
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 (7) Hypertensive heart disease (8) Right hemiplegia (9) History of CVA (cerebrovascular accident) (10) CAD (coronary artery disease) Respiratory: monitor respiratory rate, adjust FIO2, CXR Cardiac: continue to monitor HR/BP Renal: F/U I&O, keep IV fluid, check electrolytes Infectious Disease: check cultures, continue antibiotics Gastrointestinal: continue feedings/current rate, hold feedings Endocrine: monitor blood sugar Hematologic: transfuse if hgb<8.5 Neurologic: PRN Ativan, PRN Morphine, keep patient comfortable Affect: PRN ativan Prophylaxis: Heparin Notes 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 Discussed with: nurses, consultants, case supervisormanager outreach - Objective Last 24 Hour Vital Signs Date Time Temp Pulse Resp B/P (MAP) Pulse Ox O2 Delivery O2 Flow Rate FiO2 05/08/19 05:13 92 18 30 05/08/19 04:00 Mechanical Ventilator 05/08/19 04:00 99.9 92 18 146/78 (100) 98 05/08/19 04:00 30 05/08/19 04:00 91 05/08/19 03:41 89 18 30 05/08/19 01:22 91 16 30 05/08/19 00:00 96 05/08/19 00:00 Mechanical Ventilator 05/08/19 00:00 99.1 97 16 150/87 (108) 95 05/08/19 00:00 30 05/07/19 23:39 94 17 30 05/07/19 21:23 83 16 30 05/07/19 20:00 94 05/07/19 20:00 Mechanical Ventilator 05/07/19 20:00 30 05/07/19 20:00 99.4 87 19 149/80 (103) 98 05/07/19 19:26 85 16 30 05/07/19 16:41 72 16 30 05/07/19 16:00 98.2 78 18 130/67 (88) 99 05/07/19 16:00 30 05/07/19 16:00 71 05/07/19 16:00 Mechanical Ventilator 05/07/19 15:06 69 16 30 05/07/19 13:14 98.8 05/07/19 12:58 71 16 30 05/07/19 12:00 Mechanical Ventilator 05/07/19 12:00 99.7 79 19 133/73 (93) 98 05/07/19 12:00 66 05/07/19 12:00 30 05/07/19 10:49 67 16 30 05/07/19 08:42 73 16 30 05/07/19 08:00 78 05/07/19 08:00 30 05/07/19 08:00 Mechanical Ventilator 05/07/19 07:42 99.0 76 18 147/86 (106) 99 05/07/19 06:47 72 16 100 Mechanical Ventilator 30 05/07/19 06:45 72 16 30 Status: awake Condition: critical HEENT: atraumatic Neck: full ROM Lungs: chest wall tender Heart: HR/BP stable Abdomen: soft, non-tender Extremities: no C/C/E, edema Accucheck: 194 Critical Care - Subjective ROS Limited/Unobtainable: No Condition: critical EKG Rhythm: Sinus Rhythm FI02: 30 Vent Support Breath Rate: 16 Vent Support Mode: AC Vent Tidal Volume: 500 Sputum Amount: Small PEEP: 5.0 PIP: 39 Tube Feeding Amount: 60 I&O: Intake and Output 05/07/19 05/08/19 18:59 06:59 Intake Total 900 ml 780 ml Output Total 500 ml Balance 400 ml 780 ml Free Water 180 ml 180 ml Tube Feeding 720 ml 600 ml Output Urine Total 500 ml # Bowel Movements 4 1 CXR: bilateral infiltrate ET-Tube: 7.5 ET Position: 23 Tony Springer MD May 08, 2019 06:22
--- NOTE | 2019-05-08 07:11 | NUR ---
HAND-OFF: Report given to HORTENCIA MAYNARD.
--- NOTE | 2019-05-08 07:15 | NUR ---
NURSE NOTES: Received bedside report from Helena BURNETT. Pt. in bed, awake, eyes open. Non-verbal. No sign of distress[facility] with setting of AC16/VT500/FiO2 of 30%/P5. No grimacing noted. PICC line at left upper arm with 2 lumen in placed patent/intact. Last dressing change was on 05/02/19 noted. F/C in placed patent/intact draining yellow colored urine. GTF in placed patent/intact running Glucerna 1.2 cont. at 60cc/hr. HOB elevated at all times. Bed in low position, locked. Call light within reach. Will cont. to monitor.
[2019-05-08 07:23] LABS: HEMOGLOBIN 7.9 G/DL (12.0-16.0); MEAN CORPUSCULAR VOLUME 94 FL (80-99); PLATELET COUNT 191 K/UL (150-450); RED BLOOD COUNT 2.75 M/UL (4.20-5.40); RED CELL DISTRIBUTION WIDTH 18.2 % (11.6-14.8); WHITE BLOOD COUNT 7.5 K/UL (4.8-10.8)
[2019-05-08 07:46] LABS: ALANINE AMINOTRANSFERASE 11 U/L (12-78); ALBUMIN 1.6 G/DL (3.4-5.0); ALBUMIN/GLOBULIN RATIO 0.3 (1.0-2.7); ALKALINE PHOSPHATASE 106 U/L (46-116); ANION GAP 7 mmol/L (5-15); ASPARTATE AMINO TRANSFERASE 28 U/L (15-37); BILIRUBIN,TOTAL 0.3 MG/DL (0.2-1.0); CALCIUM 8.7 MG/DL (8.5-10.1); CARBON DIOXIDE 28 MMOL/L (21-32); CHLORIDE 115 MMOL/L (98-107); CREATININE 1.6 MG/DL (0.55-1.30); PHOSPHORUS 3.2 MG/DL (2.5-4.9); POTASSIUM 5.3 MMOL/L (3.5-5.1); SODIUM 150 MMOL/L (136-145)
--- NOTE | 2019-05-08 07:49 | General Progress Note ---
Assessment/Plan Problem List: (1) UTI (urinary tract infection) ICD Codes: N39.0 - Urinary tract infection, site not specified SNOMED: 20501081 (2) Respiratory distress ICD Codes: R06.03 - Acute respiratory distress SNOMED: 967998972 (3) Malnutrition ICD Codes: E46 - Unspecified protein-calorie malnutrition SNOMED: 87182895 (4) Sepsis ICD Codes: A41.9 - Sepsis, unspecified organism SNOMED: 55210506 (5) Pneumonia ICD Codes: J18.9 - Pneumonia, unspecified organism SNOMED: 727800624 Qualifiers: Qualified Codes: J18.9 - Pneumonia, unspecified organism (6) 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 ICD Codes: E11.22 - Type 2 diabetes mellitus with diabetic chronic kidney disease; N18.4 - Chronic kidney disease, stage 4 (severe) SNOMED: 59283617, 700436588, 213193085 (7) Respiratory failure ICD Codes: J96.90 - Respiratory failure, unspecified, unspecified whether with hypoxia or hypercapnia SNOMED: 019274242 Qualifiers: Qualified Codes: J96.02 - Acute respiratory failure with hypercapnia Status: stable, progressing Assessment/Plan: pt diet abx o2 pulm tx neuro psyc eval cbc bmp am ltach eval Subjective Constitutional: Reports: weakness Allergies: Coded Allergies: No Known Allergies (Unverified , 04/12/19) All Systems: reviewed and negative except above Subjective trach vent altered Objective Last 24 Hour Vital Signs Date Time Temp Pulse Resp B/P (MAP) Pulse Ox O2 Delivery O2 Flow Rate FiO2 05/08/19 06:32 87 16 30 05/08/19 05:13 92 18 30 05/08/19 04:00 Mechanical Ventilator 05/08/19 04:00 99.9 92 18 146/78 (100) 98 05/08/19 04:00 30 05/08/19 04:00 91 05/08/19 03:41 89 18 30 05/08/19 01:22 91 16 30 05/08/19 00:00 96 05/08/19 00:00 Mechanical Ventilator 05/08/19 00:00 99.1 97 16 150/87 (108) 95 05/08/19 00:00 30 05/07/19 23:39 94 17 30 05/07/19 21:23 83 16 30 05/07/19 20:00 94 05/07/19 20:00 Mechanical Ventilator 05/07/19 20:00 30 05/07/19 20:00 99.4 87 19 149/80 (103) 98 05/07/19 19:26 85 16 30 05/07/19 16:41 72 16 30 05/07/19 16:00 98.2 78 18 130/67 (88) 99 05/07/19 16:00 30 05/07/19 16:00 71 05/07/19 16:00 Mechanical Ventilator 05/07/19 15:06 69 16 30 05/07/19 13:14 98.8 05/07/19 12:58 71 16 30 05/07/19 12:00 Mechanical Ventilator 05/07/19 12:00 99.7 79 19 133/73 (93) 98 05/07/19 12:00 66 05/07/19 12:00 30 05/07/19 10:49 67 16 30 05/07/19 08:42 73 16 30 05/07/19 08:00 78 05/07/19 08:00 30 05/07/19 08:00 Mechanical Ventilator Intake and Output 05/07/19 05/08/19 18:59 06:59 Intake Total 900 ml 900 ml Output Total 500 ml 100 ml Balance 400 ml 800 ml Free Water 180 ml 180 ml Tube Feeding 720 ml 720 ml Output Urine Total 500 ml 100 ml # Voids 1 # Bowel Movements 4 2 Laboratory Tests 05/08/19 04:00: White Blood Count [Pending], Red Blood Count [Pending], Hemoglobin [Pending], Hematocrit [Pending], Mean Corpuscular Volume [Pending], Mean Corpuscular Hemoglobin [Pending], Mean Corpuscular Hemoglobin Concent [Pending], Red Cell Distribution Width [Pending], Platelet Count [Pending], Mean Platelet Volume [ Pending], Neutrophils (%) (Auto) [Pending], Lymphocytes (%) (Auto) [Pending], Monocytes (%) (Auto) [Pending], Eosinophils (%) (Auto) [Pending], Basophils (%) (Auto) [Pending], Sodium Level [Pending], Potassium Level [Pending], Chloride Level [Pending], Carbon Dioxide Level [Pending], Blood Urea Nitrogen [Pending], Creatinine [Pending], Estimat Glomerular Filtration Rate [Pending], Glucose Level [Pending], Calcium Level [Pending], Phosphorus Level [Pending], Magnesium Level [Pending], Total Bilirubin [Pending], Aspartate Amino Transf (AST/SGOT) [ Pending], Alanine Aminotransferase (ALT/SGPT) [Pending], Alkaline Phosphatase [ Pending], Total Protein [Pending], Albumin [Pending], Globulin [Pending] Height (Feet): 5 Height (Inches): 3.00 Weight (Pounds): 231 General Appearance: lethargic EENT: normal ENT inspection Neck: normal alignment Cardiovascular: normal peripheral pulses, normal rate, regular rhythm Respiratory/Chest: chest wall non-tender, lungs clear, normal breath sounds Abdomen: normal bowel sounds, non tender, soft Extremities: normal inspection Edema: no edema noted Arm (L), no edema noted Arm (R), no edema noted Leg (L), no edema noted Leg (R), no edema noted Pedal (L), no edema noted Pedal (R), no edema noted Generalized Neurologic: motor weakness Skin: normal pigmentation, warm/dry Jama Keating DO May 08, 2019 07:49
--- NOTE | 2019-05-08 07:56 | General Progress Note ---
Assessment/Plan Problem List: (1) Acute metabolic encephalopathy ICD Codes: G93.41 - Metabolic encephalopathy SNOMED: 44773571, 550064699 (2) 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 ICD Codes: E11.22 - Type 2 diabetes mellitus with diabetic chronic kidney disease; N18.4 - Chronic kidney disease, stage 4 (severe) SNOMED: 69630332, 410281423, 821704725 (3) Diabetes mellitus ICD Codes: E11.9 - Type 2 diabetes mellitus without complications SNOMED: 79480266 (4) CAD (coronary artery disease) ICD Codes: I25.10 - Atherosclerotic heart disease of [place] coronary artery without angina pectoris SNOMED: 15792954 (5) History of CVA (cerebrovascular accident) ICD Codes: Z86.73 - Personal history of transient ischemic attack (TIA), and cerebral infarction without residual deficits SNOMED: 617091570 (6) Anemia in chronic kidney disease (CKD) ICD Codes: N18.9 - Chronic kidney disease, unspecified; D63.1 - Anemia in chronic kidney disease SNOMED: 102568519 (7) Diabetic nephropathy ICD Codes: E11.21 - Type 2 diabetes mellitus with diabetic nephropathy SNOMED: 195865430 Status: stable, progressing Assessment/Plan: GTF fu labs fu pulm recs prn blood transfusion ppi dc planning per primary team Subjective ROS Limited/Unobtainable: No Allergies: Coded Allergies: No Known Allergies (Unverified , 04/12/19) Objective Last 24 Hour Vital Signs Date Time Temp Pulse Resp B/P (MAP) Pulse Ox O2 Delivery O2 Flow Rate FiO2 05/08/19 06:32 87 16 30 05/08/19 05:13 92 18 30 05/08/19 04:00 Mechanical Ventilator 05/08/19 04:00 99.9 92 18 146/78 (100) 98 05/08/19 04:00 30 05/08/19 04:00 91 05/08/19 03:41 89 18 30 05/08/19 01:22 91 16 30 05/08/19 00:00 96 05/08/19 00:00 Mechanical Ventilator 05/08/19 00:00 99.1 97 16 150/87 (108) 95 05/08/19 00:00 30 05/07/19 23:39 94 17 30 05/07/19 21:23 83 16 30 7/12/19 20:00 94 05/07/19 20:00 Mechanical Ventilator 05/07/19 20:00 30 05/07/19 20:00 99.4 87 19 149/80 (103) 98 05/07/19 19:26 85 16 30 05/07/19 16:41 72 16 30 05/07/19 16:00 98.2 78 18 130/67 (88) 99 05/07/19 16:00 30 05/07/19 16:00 71 05/07/19 16:00 Mechanical Ventilator 05/07/19 15:06 69 16 30 05/07/19 13:14 98.8 05/07/19 12:58 71 16 30 05/07/19 12:00 Mechanical Ventilator 05/07/19 12:00 99.7 79 19 133/73 (93) 98 05/07/19 12:00 66 05/07/19 12:00 30 05/07/19 10:49 67 16 30 05/07/19 08:42 73 16 30 05/07/19 08:00 78 05/07/19 08:00 30 05/07/19 08:00 Mechanical Ventilator Intake and Output 05/07/19 05/08/19 18:59 06:59 Intake Total 900 ml 900 ml Output Total 500 ml 100 ml Balance 400 ml 800 ml Free Water 180 ml 180 ml Tube Feeding 720 ml 720 ml Output Urine Total 500 ml 100 ml # Voids 1 # Bowel Movements 4 2 Laboratory Tests 05/08/19 04:00: White Blood Count 7.5, Red Blood Count 2.75L, Hemoglobin 7.9L, Hematocrit 26.0L , Mean Corpuscular Volume 94, Mean Corpuscular Hemoglobin 28.8, Mean Corpuscular Hemoglobin Concent 30.5L, Red Cell Distribution Width 18.2H, Platelet Count 191, Mean Platelet Volume 6.9, Neutrophils (%) (Auto) , Lymphocytes (%) (Auto) , Monocytes (%) (Auto) , Eosinophils (%) (Auto) , Basophils (%) (Auto) , Neutrophils % (Manual) [Pending], Lymphocytes % (Manual) [Pending], Platelet Estimate [Pending], Platelet Morphology [Pending], Sodium Level 150H, Potassium Level 5.3H, Chloride Level 115H, Carbon Dioxide Level 28, Anion Gap 7, Blood Urea Nitrogen [Pending], Creatinine 1.6H, Estimat Glomerular Filtration Rate , Glucose Level 180H, Calcium Level 8.7, Phosphorus Level 3.2, Magnesium Level 2.2, Total Bilirubin 0.3, Aspartate Amino Transf (AST/SGOT) 28, Alanine Aminotransferase (ALT/SGPT) 11L, Alkaline Phosphatase 106, Total Protein 6.8, Albumin 1.6L, Globulin 5.2, Albumin/Globulin Ratio 0.3L Height (Feet): 5 Height (Inches): 3.00 Weight (Pounds): 231 General Appearance: alert EENT: normal ENT inspection Neck: supple Cardiovascular: normal rate Respiratory/Chest: decreased breath sounds Abdomen: normal bowel sounds, non tender, soft Extremities: non-tender Darron Gentile MD May 08, 2019 07:56
[2019-05-08 08:00] VITALS: BP 168/108
[2019-05-08 08:02] LABS: BLOOD UREA NITROGEN 56 mg/dL (7-18)
--- NOTE | 2019-05-08 08:48 | NUR ---
NURSE NOTES: Called Dr. Springer and informed him regarding Hgb 7.9 with NNO.
[2019-05-08] MEDS ORDERED: Sodium Polystyrene Sulfonate 15gm Powder GT SCH (10:00)
--- NOTE | 2019-05-08 10:00 | Progress Note ---
DATE: 05/08/2019 SUBJECTIVE: This is a 79-year-old female patient. She continues to have some confusion. She has sepsis. She has got confusion, disorganized thought process, and mood lability. She is having some confusion and altered mental status. MENTAL STATUS EXAMINATION: This is a 79-year-old female. Appearance is disheveled. Attitude, irritable and agitated. Affect, guarded and restricted. Intellect, poor. Mood, depressed and anxious. Insight and judgment is poor. DIAGNOSIS: Major depressive disorder, mild, recurrent with psychotic features, rule out dementia with psychosis. PLAN: Treat with psychotropic medications to stabilize her mood. Provided with 20 minutes of reality-based supportive psychotherapy. 20 minutes of cognitive behavioral therapy to help her identify automatic negative thoughts and help convert those negative thoughts to more positive thoughts to reduce depression, anxiety, and mood lability. Chart reviewed. Discussed with staff. Seen and assessed at bedside. Omar Glover M.D. DR: RELL JOB#: [id number] CC:
--- NOTE | 2019-05-08 11:34 | Surgery Progress Note ---
Surgery Progress Note Subjective Procedure Performed tracheostomy Symptoms: other Objective Last 24 Hour Vital Signs Date Time Temp Pulse Resp B/P (MAP) Pulse Ox O2 Delivery O2 Flow Rate FiO2 05/08/19 10:58 84 17 30 05/08/19 09:12 68 16 30 05/08/19 08:00 Mechanical Ventilator 05/08/19 08:00 99.5 85 18 168/108 (128) 98 05/08/19 08:00 30 05/08/19 07:44 97 05/08/19 06:32 87 16 30 05/08/19 05:13 92 18 30 05/08/19 04:00 Mechanical Ventilator 05/08/19 04:00 99.9 92 18 146/78 (100) 98 05/08/19 04:00 30 05/08/19 04:00 91 05/08/19 03:41 89 18 30 05/08/19 01:22 91 16 30 05/08/19 00:00 96 05/08/19 00:00 Mechanical Ventilator 05/08/19 00:00 99.1 97 16 150/87 (108) 95 05/08/19 00:00 30 05/07/19 23:39 94 17 30 05/07/19 21:23 83 16 30 05/07/19 20:00 94 05/07/19 20:00 Mechanical Ventilator 05/07/19 20:00 30 05/07/19 20:00 99.4 87 19 149/80 (103) 98 05/07/19 19:26 85 16 30 05/07/19 16:41 72 16 30 05/07/19 16:00 98.2 78 18 130/67 (88) 99 05/07/19 16:00 30 05/07/19 16:00 71 05/07/19 16:00 Mechanical Ventilator 05/07/19 15:06 69 16 30 05/07/19 13:14 98.8 05/07/19 12:58 71 16 30 05/07/19 12:00 Mechanical Ventilator 05/07/19 12:00 99.7 79 19 133/73 (93) 98 05/07/19 12:00 66 05/07/19 12:00 30 I&O Intake and Output 05/07/19 05/08/19 18:59 06:59 Intake Total 900 ml 900 ml Output Total 500 ml 100 ml Balance 400 ml 800 ml Free Water 180 ml 180 ml Tube Feeding 720 ml 720 ml Output Urine Total 500 ml 100 ml # Voids 1 # Bowel Movements 4 2 Dressing: dry Wound: clean Drains: other Cardiovascular: RSR Respiratory: clear Abdomen: soft, present bowel sounds, non-distended Extremities: no cyanosis Laboratory Tests Test 05/08/19 04:00 White Blood Count 7.5 K/UL (4.8-10.8) Red Blood Count 2.75 M/UL (4.20-5.40) L Hemoglobin 7.9 G/DL (12.0-16.0) L Hematocrit 26.0 % (37.0-47.0) L Mean Corpuscular Volume 94 FL (80-99) Mean Corpuscular Hemoglobin 28.8 PG (27.0-31.0) Mean Corpuscular Hemoglobin Concent 30.5 G/DL (32.0-36.0) L Red Cell Distribution Width 18.2 % (11.6-14.8) H Platelet Count 191 K/UL (150-450) Mean Platelet Volume 6.9 FL (6.5-10.1) Neutrophils (%) (Auto) % (45.0-75.0) Lymphocytes (%) (Auto) % (20.0-45.0) Monocytes (%) (Auto) % (1.0-10.0) Eosinophils (%) (Auto) % (0.0-3.0) Basophils (%) (Auto) % (0.0-2.0) Differential Total Cells Counted 100 Neutrophils % (Manual) 76 % (45-75) H Lymphocytes % (Manual) 16 % (20-45) L Monocytes % (Manual) 5 % (1-10) Eosinophils % (Manual) 3 % (0-3) Basophils % (Manual) 0 % (0-2) Band Neutrophils 0 % (0-8) Platelet Estimate Adequate Platelet Morphology Normal Hypochromasia 1+ Anisocytosis 1+ Sodium Level 150 MMOL/L (136-145) H Potassium Level 5.3 MMOL/L (3.5-5.1) H Chloride Level 115 MMOL/L (98-107) H Carbon Dioxide Level 28 MMOL/L (21-32) Anion Gap 7 mmol/L (5-15) Blood Urea Nitrogen 56 mg/dL (7-18) H Creatinine 1.6 MG/DL (0.55-1.30) H Estimat Glomerular Filtration Rate mL/min (>60) Glucose Level 180 MG/DL (74-106) H Calcium Level 8.7 MG/DL (8.5-10.1) Phosphorus Level 3.2 MG/DL (2.5-4.9) Magnesium Level 2.2 MG/DL (1.8-2.4) Total Bilirubin 0.3 MG/DL (0.2-1.0) Aspartate Amino Transf (AST/SGOT) 28 U/L (15-37) Alanine Aminotransferase (ALT/SGPT) 11 U/L (12-78) L Alkaline Phosphatase 106 U/L (46-116) Total Protein 6.8 G/DL (6.4-8.2) Albumin 1.6 G/DL (3.4-5.0) L Globulin 5.2 g/dL Albumin/Globulin Ratio 0.3 (1.0-2.7) L Plan Problems: (1) Respiratory distress Assessment & Plan: s/p trach stable wean vent as tolerated downgraded improving will follow with recs dressing prn (2) Malnutrition (3) UTI (urinary tract infection) (4) Diabetic nephropathy (5) Renal failure (ARF), acute on chronic (6) Anemia in chronic kidney disease (CKD) (7) Pulmonary hypertension (8) Acute respiratory failure (9) Respiratory failure (10) Hypernatremia (11) Sepsis Assessment & Plan: cont with current care trend labs will follow with recs (12) Pneumonia (13) History of CVA (cerebrovascular accident) (14) CAD (coronary artery disease) (15) Right hemiplegia Assessment & Plan: Sacral pressure injury resolved-dry peelingh skin without erythema noted. Incontinence associated dermatitis noted to medial aspects of both thighs,abd folds and perineum .Affected areas are erythematous and denuded. Moisture associated dermatitis noted to R and L axillae. erythema with denuded skin skin noted to affected areas. Both heels are dry ,firm and blanchable. Tx.Plan: Wash and pat dry R and L axillae,abd folds,perineum and medial aspects of both upper thighs. Apply Remedy Antifungal oint Twice Daily. Apply Moisture Barrier Paste to Sacrum . Cover with Optifoam drsg. Change every 3 days and prn. Apply Caviilon Skin Barrier to both heels. Cover each heel with Optifoam drsg. Change every 7 days and prn. APM/MARIA INES mattress. Reposition at least every 2houers or as tolerated. Off-load heels with pillow. (16) Diabetes mellitus (17) Hypertensive heart disease (18) 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 (19) Nosocomial pneumonia (20) At high risk for aspiration (21) Acute metabolic encephalopathy Devaughn Marin May 08, 2019 11:34
[2019-05-08 12:00] VITALS: BP 153/90
--- NOTE | 2019-05-08 13:39 | NUR ---
CASE MANAGEMENT: REVIEW 05/08/2019 SI: ACUTE RESPIRATORY FAILURE. ENCEPHALOPATHY. PNA T 100 HR 94 RR 18 B/P 153/90 SATS 97% ON MECH VENT FiO2 30 HGB 7.9 HCT 26 NA 150 K 5.3 CL 115 BUN 56 CR 1.6 GLU 180 ALT 11 IS: FOLATE GT QD PREVACID GT QD INSULIN ASPART SUBQ AC/HS : SDU STATUS
--- NOTE | 2019-05-08 14:35 | Cardiac Electrophysiology PN ---
Assessment/Plan Assessment/Plan 1. Atrial flutter, self terminated. In SR. 2. Hypotension. Resolved. 3. Coronary artery disease. On Plavix 75 mg daily 4. Respiratory failure EF 60%.S/P Tracheostomy 05/03/19 on the vent 5. Sepsis with White count 25,000. Resolved. WBC today 7.5 6. Anemia.S/P PRBC. 7. Renal failure BUN/Cr improved with hydration by Dr. Spivey 8. Dysphagia. S/P PEG 04/22/19 9. History of CVA with hemiplegia. 10. Nonverbal status. 11. Full code 12. Mild fever. Resolved with Tylenol. Off Abx DW RN DC to SNIF pending Subjective Subjective S/P Tracheostomy 05/03/19. In SR on the Vent. Opens her eyes and tracks. RN at bedside Objective Last 24 Hour Vital Signs Date Time Temp Pulse Resp B/P (MAP) Pulse Ox O2 Delivery O2 Flow Rate FiO2 05/08/19 13:19 92 18 30 05/08/19 12:00 Mechanical Ventilator 05/08/19 12:00 100.0 94 18 153/90 (111) 97 05/08/19 12:00 30 05/08/19 11:28 79 05/08/19 10:58 84 17 30 05/08/19 09:12 68 16 30 05/08/19 08:00 Mechanical Ventilator 05/08/19 08:00 99.5 85 18 168/108 (128) 98 05/08/19 08:00 30 05/08/19 07:44 97 05/08/19 06:32 87 16 30 05/08/19 05:13 92 18 30 05/08/19 04:00 Mechanical Ventilator 05/08/19 04:00 99.9 92 18 146/78 (100) 98 05/08/19 04:00 30 05/08/19 04:00 91 05/08/19 03:41 89 18 30 05/08/19 01:22 91 16 30 05/08/19 00:00 96 05/08/19 00:00 Mechanical Ventilator 05/08/19 00:00 99.1 97 16 150/87 (108) 95 05/08/19 00:00 30 05/07/19 23:39 94 17 30 05/07/19 21:23 83 16 30 05/07/19 20:00 94 05/07/19 20:00 Mechanical Ventilator 05/07/19 20:00 30 05/07/19 20:00 99.4 87 19 149/80 (103) 98 05/07/19 19:26 85 16 30 05/07/19 16:41 72 16 30 05/07/19 16:00 98.2 78 18 130/67 (88) 99 05/07/19 16:00 30 05/07/19 16:00 71 05/07/19 16:00 Mechanical Ventilator 05/07/19 15:06 69 16 30 Intake and Output 05/07/19 05/08/19 19:00 07:00 Intake Total 900 ml 900 ml Output Total 500 ml 100 ml Balance 400 ml 800 ml Free Water 180 ml 180 ml Tube Feeding 720 ml 720 ml Output Urine Total 500 ml 100 ml # Voids 1 # Bowel Movements 4 2 Laboratory Tests Test 05/08/19 04:00 White Blood Count 7.5 K/UL (4.8-10.8) Red Blood Count 2.75 M/UL (4.20-5.40) L Hemoglobin 7.9 G/DL (12.0-16.0) L Hematocrit 26.0 % (37.0-47.0) L Mean Corpuscular Volume 94 FL (80-99) Mean Corpuscular Hemoglobin 28.8 PG (27.0-31.0) Mean Corpuscular Hemoglobin Concent 30.5 G/DL (32.0-36.0) L Red Cell Distribution Width 18.2 % (11.6-14.8) H Platelet Count 191 K/UL (150-450) Mean Platelet Volume 6.9 FL (6.5-10.1) Neutrophils (%) (Auto) % (45.0-75.0) Lymphocytes (%) (Auto) % (20.0-45.0) Monocytes (%) (Auto) % (1.0-10.0) Eosinophils (%) (Auto) % (0.0-3.0) Basophils (%) (Auto) % (0.0-2.0) Differential Total Cells Counted 100 Neutrophils % (Manual) 76 % (45-75) H Lymphocytes % (Manual) 16 % (20-45) L Monocytes % (Manual) 5 % (1-10) Eosinophils % (Manual) 3 % (0-3) Basophils % (Manual) 0 % (0-2) Band Neutrophils 0 % (0-8) Platelet Estimate Adequate Platelet Morphology Normal Hypochromasia 1+ Anisocytosis 1+ Sodium Level 150 MMOL/L (136-145) H Potassium Level 5.3 MMOL/L (3.5-5.1) H Chloride Level 115 MMOL/L (98-107) H Carbon Dioxide Level 28 MMOL/L (21-32) Anion Gap 7 mmol/L (5-15) Blood Urea Nitrogen 56 mg/dL (7-18) H Creatinine 1.6 MG/DL (0.55-1.30) H Estimat Glomerular Filtration Rate mL/min (>60) Glucose Level 180 MG/DL (74-106) H Calcium Level 8.7 MG/DL (8.5-10.1) Phosphorus Level 3.2 MG/DL (2.5-4.9) Magnesium Level 2.2 MG/DL (1.8-2.4) Total Bilirubin 0.3 MG/DL (0.2-1.0) Aspartate Amino Transf (AST/SGOT) 28 U/L (15-37) Alanine Aminotransferase (ALT/SGPT) 11 U/L (12-78) L Alkaline Phosphatase 106 U/L (46-116) Total Protein 6.8 G/DL (6.4-8.2) Albumin 1.6 G/DL (3.4-5.0) L Globulin 5.2 g/dL Albumin/Globulin Ratio 0.3 (1.0-2.7) L Objective HEAD AND NECK: No JVD. S/P tracheostomy LUNGS: Coarse rhonchi bilaterally. CARDIOVASCULAR: Regular S1 and S2 with no gallop. ABDOMEN: Soft.PEG in place EXTREMITIES: No pitting edema. Claude Pena MD May 08, 2019 14:35
--- NOTE | 2019-05-08 14:42 | Nephrology Progress Note ---
Assessment/Plan Problem List: (1) Renal failure (ARF), acute on chronic (2) Diabetic nephropathy (3) Sepsis (4) Pneumonia (5) Right hemiplegia (6) Anemia in chronic kidney disease (CKD) (7) Pulmonary hypertension Assessment intubated- Renal failure; - Pre Renal - ? Underlying Renal Anemia Pneumonia / respiratory failure Sepsis elevated Troponin UTI HyperGlycemia / DM Right Esvin HTN Plan trach 05/03 done kayexelate as needed consider transfusion discussed with RN transfuse for low Hgb as needed K Phos IV as needed venofer Folate 24 H urine protein check 2.4 gram Fraga Hydrate BP and BS control urine studies slow hydrate kidney MAIKEL results noted: No [place] 2D echo Noted visualized except distal setum and inferiro wall hypokinesis Left ventricular ejection fraction estimated to be 55-60 %. avoid Nephrotoxics per orders Subjective ROS Limited/Unobtainable: Yes Objective Objective Last 24 Hour Vital Signs Date Time Temp Pulse Resp B/P (MAP) Pulse Ox O2 Delivery O2 Flow Rate FiO2 05/08/19 13:19 92 18 30 05/08/19 12:00 Mechanical Ventilator 05/08/19 12:00 100.0 94 18 153/90 (111) 97 05/08/19 12:00 30 05/08/19 11:28 79 05/08/19 10:58 84 17 30 05/08/19 09:12 68 16 30 05/08/19 08:00 Mechanical Ventilator 05/08/19 08:00 99.5 85 18 168/108 (128) 98 05/08/19 08:00 30 05/08/19 07:44 97 05/08/19 06:32 87 16 30 05/08/19 05:13 92 18 30 05/08/19 04:00 Mechanical Ventilator 05/08/19 04:00 99.9 92 18 146/78 (100) 98 05/08/19 04:00 30 05/08/19 04:00 91 05/08/19 03:41 89 18 30 05/08/19 01:22 91 16 30 05/08/19 00:00 96 05/08/19 00:00 Mechanical Ventilator 05/08/19 00:00 99.1 97 16 150/87 (108) 95 05/08/19 00:00 30 05/07/19 23:39 94 17 30 7/12/19 21:23 83 16 30 05/07/19 20:00 94 05/07/19 20:00 Mechanical Ventilator 05/07/19 20:00 30 05/07/19 20:00 99.4 87 19 149/80 (103) 98 05/07/19 19:26 85 16 30 05/07/19 16:41 72 16 30 05/07/19 16:00 98.2 78 18 130/67 (88) 99 05/07/19 16:00 30 05/07/19 16:00 71 05/07/19 16:00 Mechanical Ventilator 05/07/19 15:06 69 16 30 Intake and Output 05/07/19 05/08/19 19:00 07:00 Intake Total 900 ml 900 ml Output Total 500 ml 100 ml Balance 400 ml 800 ml Free Water 180 ml 180 ml Tube Feeding 720 ml 720 ml Output Urine Total 500 ml 100 ml # Voids 1 # Bowel Movements 4 2 Laboratory Tests 05/08/19 04:00: White Blood Count 7.5, Red Blood Count 2.75L, Hemoglobin 7.9L, Hematocrit 26.0L , Mean Corpuscular Volume 94, Mean Corpuscular Hemoglobin 28.8, Mean Corpuscular Hemoglobin Concent 30.5L, Red Cell Distribution Width 18.2H, Platelet Count 191, Mean Platelet Volume 6.9, Neutrophils (%) (Auto) , Lymphocytes (%) (Auto) , Monocytes (%) (Auto) , Eosinophils (%) (Auto) , Basophils (%) (Auto) , Differential Total Cells Counted 100, Neutrophils % ( Manual) 76H, Lymphocytes % (Manual) 16L, Monocytes % (Manual) 5, Eosinophils % ( Manual) 3, Basophils % (Manual) 0, Band Neutrophils 0, Platelet Estimate Adequate, Platelet Morphology Normal, Hypochromasia 1+, Anisocytosis 1+, Sodium Level 150H, Potassium Level 5.3H, Chloride Level 115H, Carbon Dioxide Level 28, Anion Gap 7, Blood Urea Nitrogen 56H, Creatinine 1.6H, Estimat Glomerular Filtration Rate , Glucose Level 180H, Calcium Level 8.7, Phosphorus Level 3.2, Magnesium Level 2.2, Total Bilirubin 0.3, Aspartate Amino Transf (AST/SGOT) 28, Alanine Aminotransferase (ALT/SGPT) 11L, Alkaline Phosphatase 106, Total Protein 6.8, Albumin 1.6L, Globulin 5.2, Albumin/Globulin Ratio 0.3L Height (Feet): 5 Height (Inches): 3.00 Weight (Pounds): 231 General Appearance: no apparent distress EENT: other - trach Cardiovascular: normal rate Respiratory/Chest: decreased breath sounds Abdomen: distended Objective no change Wally Spivey MD May 08, 2019 14:42
[2019-05-08 16:00] VITALS: BP 159/84
--- NOTE | 2019-05-08 19:15 | NUR ---
NURSE NOTES: Received report from Radha BURNETT, pt. is awake and alert in bed obtunded, calender tender on, no signs or symptoms of acute cardiac or respiratory distress noted, bed alarm on, side rails up x's3 and safety brakes engaged, pt. appears to be tolerating current vent settings- AC16, TV 500, peep 5 and Fio2 at 30%- no distress noted, G tube feeding running Glucerna 1.2 at 60cc/hr- no residual noted, Fraga intact and draining to gravity, pt. appears to be clean and dry and resting comfortably in bed, SUZIE PICC intact and patent, safety measure continued, will continue with plan of care.
--- NOTE | 2019-05-08 19:21 | NUR ---
HAND-OFF: Report given to Afua BURNETT. Pt. remain stable.
[2019-05-08] MEDS: Dyna-Hex 2% Top Sol 2oz TOPIC SCH (19:44)
[2019-05-08 20:00] VITALS: BP 158/89
--- NOTE | 2019-05-08 20:08 | Neurology Progress Note ---
Interim History Interim History ROS Limited/Unobtainable: Yes Complaints: AMS Events: Weaning attempts unsuccessful, PEG placed Interim History exam unchanged Objective Physical Exam Last Vital Signs Date Time Temp Pulse Resp B/P (MAP) Pulse Ox O2 Delivery O2 Flow Rate FiO2 05/08/19 19:30 81 17 30 05/08/19 16:00 Mechanical Ventilator 05/08/19 16:00 99.3 159/84 (109) 97 Laboratory Tests Test 05/08/19 04:00 White Blood Count 7.5 K/UL (4.8-10.8) Red Blood Count 2.75 M/UL (4.20-5.40) L Hemoglobin 7.9 G/DL (12.0-16.0) L Hematocrit 26.0 % (37.0-47.0) L Mean Corpuscular Volume 94 FL (80-99) Mean Corpuscular Hemoglobin 28.8 PG (27.0-31.0) Mean Corpuscular Hemoglobin Concent 30.5 G/DL (32.0-36.0) L Red Cell Distribution Width 18.2 % (11.6-14.8) H Platelet Count 191 K/UL (150-450) Mean Platelet Volume 6.9 FL (6.5-10.1) Neutrophils (%) (Auto) % (45.0-75.0) Lymphocytes (%) (Auto) % (20.0-45.0) Monocytes (%) (Auto) % (1.0-10.0) Eosinophils (%) (Auto) % (0.0-3.0) Basophils (%) (Auto) % (0.0-2.0) Differential Total Cells Counted 100 Neutrophils % (Manual) 76 % (45-75) H Lymphocytes % (Manual) 16 % (20-45) L Monocytes % (Manual) 5 % (1-10) Eosinophils % (Manual) 3 % (0-3) Basophils % (Manual) 0 % (0-2) Band Neutrophils 0 % (0-8) Platelet Estimate Adequate Platelet Morphology Normal Hypochromasia 1+ Anisocytosis 1+ Sodium Level 150 MMOL/L (136-145) H Potassium Level 5.3 MMOL/L (3.5-5.1) H Chloride Level 115 MMOL/L (98-107) H Carbon Dioxide Level 28 MMOL/L (21-32) Anion Gap 7 mmol/L (5-15) Blood Urea Nitrogen 56 mg/dL (7-18) H Creatinine 1.6 MG/DL (0.55-1.30) H Estimat Glomerular Filtration Rate mL/min (>60) Glucose Level 180 MG/DL (74-106) H Calcium Level 8.7 MG/DL (8.5-10.1) Phosphorus Level 3.2 MG/DL (2.5-4.9) Magnesium Level 2.2 MG/DL (1.8-2.4) Total Bilirubin 0.3 MG/DL (0.2-1.0) Aspartate Amino Transf (AST/SGOT) 28 U/L (15-37) Alanine Aminotransferase (ALT/SGPT) 11 U/L (12-78) L Alkaline Phosphatase 106 U/L (46-116) Total Protein 6.8 G/DL (6.4-8.2) Albumin 1.6 G/DL (3.4-5.0) L Globulin 5.2 g/dL Albumin/Globulin Ratio 0.3 (1.0-2.7) L General: well developed, well nourished, no acute distress Head: normocophalic Neck: no rigidity EENT: benign Neurologic Exam Mental Status: awake, other Speech: other Language: other Cranial Nerve II: fundus normal, visual cruz, no papilledema, other Cranial Nerves III, IV, : PERRLA, EOMI, other Cranial Nerve V: other Cranial Nerve VII: other Cranial Nerve VIII: other Cranial Nerve IX: other Cranial Nerve XI: other Cranial Nerve XII: other Motor System: other Sensory: other Coordination: other Gait: other Objective Not following commands Moving all 4 ext spontaneously CN intact Impression/Recommendations Problems: (1) Respiratory distress (2) Malnutrition (3) UTI (urinary tract infection) (4) Diabetic nephropathy (5) Renal failure (ARF), acute on chronic (6) Anemia in chronic kidney disease (CKD) (7) Pulmonary hypertension (8) Acute respiratory failure (9) Respiratory failure (10) Hypernatremia (11) Sepsis (12) Pneumonia (13) History of CVA (cerebrovascular accident) (14) CAD (coronary artery disease) (15) Right hemiplegia (16) Diabetes mellitus (17) Hypertensive heart disease (18) 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 (19) Nosocomial pneumonia (20) At high risk for aspiration (21) Acute metabolic encephalopathy Status: stable, progressing Recommendations Cont current management map > 65 neuro exam non focal - monitor sp trach dispo pending Geo Espitia MD May 08, 2019 20:07
[2019-05-09] VITALS: BP 151/84
[2019-05-09 04:00] VITALS: BP 155/80
[2019-05-09] MEDS: NovoLOG Insulin Flexpen SUBQ SCH ×4 (05:01→23:06)
--- NOTE | 2019-05-09 06:33 | NUR ---
RESPIRATORY NOTE: Received pt on vent settings: AC 16-500ml-30% FiO2-peep 5. Pt is trach dependent with trachShiley cuffed size 8.0. Pt opens eyes but unable to track or follow commands. VS is in normal range. There is a wound on pt's right cheek. Gus rhonchi B/S heard upon auscultation, suctioned mall amount of thick marin yellow secretions without incidents. Alarms are set and audible, vent is plugged into the red outlet, ambu bag is at bedside. Vent circuits and sxn tubing are patent and out of the way. No SOB or resp distress noted at this time. Will continue to monitor pt.
[2019-05-09 07:00] LABS: HEMATOCRIT 25.4 % (37.0-47.0); HEMOGLOBIN 7.9 G/DL (12.0-16.0); MEAN CORPUSCULAR VOLUME 93 FL (80-99); PLATELET COUNT 198 K/UL (150-450); RED BLOOD COUNT 2.74 M/UL (4.20-5.40); RED CELL DISTRIBUTION WIDTH 17.1 % (11.6-14.8); WHITE BLOOD COUNT 8.1 K/UL (4.8-10.8)
--- NOTE | 2019-05-09 07:10 | NUR ---
NURSE NOTES: Received bedside report from Afua BURNETT. Pt. in bed, eyes open, non-verbal. No sign of distress. On mech. vent with setting of AC16/VT500/FiO2 of 30%/PEEP5. No grimacing noted. HOB elevated at all times. On GTF Glucerna 1.2 cont. at 60cc/hr. Tolerating well. PICC line in placed with 2 lumen at left upper arm patent/intact. F/C in placed patent/intact draining yellow colored urine. Bed in low position, locked. Call light within reach. Will cont. to monitor.
--- NOTE | 2019-05-09 07:11 | NUR ---
HAND-OFF: Report given to Radha Maciel, pt. appears to be stable and no sings of distress noted.
--- NOTE | 2019-05-09 07:28 | General Progress Note ---
Assessment/Plan Problem List: (1) Acute metabolic encephalopathy ICD Codes: G93.41 - Metabolic encephalopathy SNOMED: 38223716, 691285069 (2) 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 ICD Codes: E11.22 - Type 2 diabetes mellitus with diabetic chronic kidney disease; N18.4 - Chronic kidney disease, stage 4 (severe) SNOMED: 11396721, 001115442, 258840601 (3) Diabetes mellitus ICD Codes: E11.9 - Type 2 diabetes mellitus without complications SNOMED: 00232325 (4) CAD (coronary artery disease) ICD Codes: I25.10 - Atherosclerotic heart disease of [place] coronary artery without angina pectoris SNOMED: 99353961 (5) History of CVA (cerebrovascular accident) ICD Codes: Z86.73 - Personal history of transient ischemic attack (TIA), and cerebral infarction without residual deficits SNOMED: 244685538 (6) Anemia in chronic kidney disease (CKD) ICD Codes: N18.9 - Chronic kidney disease, unspecified; D63.1 - Anemia in chronic kidney disease SNOMED: 734715717 (7) Diabetic nephropathy ICD Codes: E11.21 - Type 2 diabetes mellitus with diabetic nephropathy SNOMED: 140558753 Status: stable, progressing Assessment/Plan: GTF fu labs fu pulm recs prn blood transfusion ppi dc planning per primary team Subjective ROS Limited/Unobtainable: No Allergies: Coded Allergies: No Known Allergies (Unverified , 04/12/19) Objective Last 24 Hour Vital Signs Date Time Temp Pulse Resp B/P (MAP) Pulse Ox O2 Delivery O2 Flow Rate FiO2 05/09/19 06:33 91 16 30 05/09/19 05:30 107 28 30 05/09/19 04:00 Mechanical Ventilator 05/09/19 04:00 30 05/09/19 04:00 97.8 83 17 155/80 (105) 97 05/09/19 04:00 76 05/09/19 03:00 81 17 30 05/09/19 01:15 80 17 30 05/09/19 00:00 97.5 88 16 151/84 (106) 96 05/09/19 00:00 30 05/09/19 00:00 Mechanical Ventilator 05/09/19 00:00 76 05/08/19 23:30 82 17 30 05/08/19 21:30 80 17 30 7/13/19 20:00 98.2 81 17 158/89 (112) 97 05/08/19 20:00 30 05/08/19 20:00 Mechanical Ventilator 05/08/19 20:00 74 05/08/19 19:30 81 17 30 05/08/19 17:23 85 18 30 05/08/19 16:00 30 05/08/19 16:00 Mechanical Ventilator 05/08/19 16:00 99.3 88 16 159/84 (109) 97 05/08/19 15:14 91 05/08/19 14:44 90 18 30 05/08/19 13:19 92 18 30 05/08/19 12:00 Mechanical Ventilator 05/08/19 12:00 100.0 94 18 153/90 (111) 97 05/08/19 12:00 30 05/08/19 11:28 79 05/08/19 10:58 84 17 30 05/08/19 09:12 68 16 30 05/08/19 08:00 Mechanical Ventilator 05/08/19 08:00 99.5 85 18 168/108 (128) 98 05/08/19 08:00 30 05/08/19 07:44 97 Intake and Output 05/08/19 05/09/19 19:00 07:00 Intake Total 640 ml 1020 ml Output Total 550 ml 500 ml Balance 90 ml 520 ml Free Water 100 ml 300 ml Tube Feeding 540 ml 720 ml Output Urine Total 550 ml 500 ml # Bowel Movements 2 4 Laboratory Tests 05/09/19 06:15: White Blood Count 8.1, Red Blood Count 2.74L, Hemoglobin 7.9L, Hematocrit 25.4L , Mean Corpuscular Volume 93, Mean Corpuscular Hemoglobin 29.0, Mean Corpuscular Hemoglobin Concent 31.3L, Red Cell Distribution Width 17.1H, Platelet Count 198, Mean Platelet Volume 7.6, Neutrophils (%) (Auto) , Lymphocytes (%) (Auto) , Monocytes (%) (Auto) , Eosinophils (%) (Auto) , Basophils (%) (Auto) , Neutrophils % (Manual) [Pending], Lymphocytes % (Manual) [Pending], Platelet Estimate [Pending], Platelet Morphology [Pending], Sodium Level [Pending], Potassium Level [Pending], Chloride Level [Pending], Carbon Dioxide Level [Pending], Blood Urea Nitrogen [Pending], Creatinine [Pending], Estimat Glomerular Filtration Rate [Pending], Glucose Level [Pending], Calcium Level [Pending], Phosphorus Level [Pending], Magnesium Level [Pending], Total Bilirubin [Pending], Aspartate Amino Transf (AST/SGOT) [Pending], Alanine Aminotransferase (ALT/SGPT) [Pending], Alkaline Phosphatase [Pending], Total Protein [Pending], Albumin [Pending], Globulin [Pending] Height (Feet): 5 Height (Inches): 3.00 Weight (Pounds): 227 General Appearance: no apparent distress EENT: PERRL/EOMI Neck: supple Cardiovascular: normal rate Respiratory/Chest: decreased breath sounds Abdomen: normal bowel sounds, non tender, soft Extremities: non-tender Darron Gentile MD May 09, 2019 07:28
[2019-05-09 07:50] LABS: ALANINE AMINOTRANSFERASE 12 U/L (12-78); ALBUMIN 1.6 G/DL (3.4-5.0); ALBUMIN/GLOBULIN RATIO 0.3 (1.0-2.7); ALKALINE PHOSPHATASE 102 U/L (46-116); ANION GAP 8 mmol/L (5-15); ASPARTATE AMINO TRANSFERASE 31 U/L (15-37); BILIRUBIN,TOTAL 0.4 MG/DL (0.2-1.0); BLOOD UREA NITROGEN 56 mg/dL (7-18); CALCIUM 8.6 MG/DL (8.5-10.1); CARBON DIOXIDE 29 MMOL/L (21-32); CHLORIDE 116 MMOL/L (98-107); CREATININE 1.6 MG/DL (0.55-1.30); PHOSPHORUS 3.8 MG/DL (2.5-4.9); POTASSIUM 5.1 MMOL/L (3.5-5.1); SODIUM 153 MMOL/L (136-145)
[2019-05-09 08:00] VITALS: BP 142/94
[2019-05-09] MEDS ORDERED: Sterile Water Irrig 1000ml IRRIG ONE (08:47)
[2019-05-09] MEDS ORDERED: NS 275ml ONE (08:47)
--- NOTE | 2019-05-09 09:23 | Infectious Diseases Prog Note ---
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 PNA, sp Rx Pulmonary edema -04/26 CXR: Suspect slightly increased interstitial and airspace edema, over 2 days.Possibly improving small right pleural effusion -04/19 CXR: There is less pulmonary edema compared to yesterday but with moderate residual edema. -04/16 CXR: . Right perihilar and bilateral lower lobe pulmonary consolidation concerning for pneumonia.Small bilateral pleural effusions. CXR - B/L Infiltrates Low grade fevers; recurrent WBCs up to 25; recurrent-- resolved -05/03 u/a neg Cdiff neg Bcx NTD sp cx normal resp nohelia (prelim) -04/24 Cdiff eng 04/16 Sp Cx - C. alb; 04/19 spC. albicans (colonizer) -BCx NTD -legionella ag urine neg Widened mediastinum - right sided aortic arch CXR - Apparent upper mediastinal widening. Possibly due to ectatic vasculature and body habitus, but upper mediastinal mass also possible. Correlate with any prior adiographs and may be available, consider CT for further evaluation if clinically indicated CT 04/13/19 - Right-sided aortic arch, presumably accounting for the apparent upper mediastinal widening demonstrated on recent plain radiograph. No evidence of upper mediastinal mass. Extensive bilateral lower lobe consolidation , likely pneumonia, less extensive left upper lobe consolidation. 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 CKD CAD PLAN Continue to monitor off abx -low threshold to resume abx -04/28 SP Cefepime #6 -04/22 SP Meropenem #5 -04/20 SP Vancomycin #8 - 04/18/19 S/P Cefepime #6 - f/u cultures - Monitor CBC and Temps -f/u cx Thank you for this consult. We will continue to follow the patient during this hospitalization. Subjective Allergies: Coded Allergies: No Known Allergies (Unverified , 04/12/19) Subjective RADHA Afebrile No Leukocytosis Objective Vital Signs Last 24 Hour Vital Signs Date Time Temp Pulse Resp B/P (MAP) Pulse Ox O2 Delivery O2 Flow Rate FiO2 05/09/19 09:00 79 17 30 05/09/19 08:00 30 05/09/19 08:00 Mechanical Ventilator 05/09/19 08:00 99.9 94 16 142/94 (110) 97 05/09/19 06:33 91 16 30 05/09/19 05:30 107 28 30 05/09/19 04:00 Mechanical Ventilator 05/09/19 04:00 30 05/09/19 04:00 97.8 83 17 155/80 (105) 97 05/09/19 04:00 76 05/09/19 03:00 81 17 30 05/09/19 01:15 80 17 30 05/09/19 00:00 97.5 88 16 151/84 (106) 96 05/09/19 00:00 30 05/09/19 00:00 Mechanical Ventilator 05/09/19 00:00 76 05/08/19 23:30 82 17 30 05/08/19 21:30 80 17 30 05/08/19 20:00 98.2 81 17 158/89 (112) 97 05/08/19 20:00 30 05/08/19 20:00 Mechanical Ventilator 05/08/19 20:00 74 05/08/19 19:30 81 17 30 05/08/19 17:23 85 18 30 05/08/19 16:00 30 05/08/19 16:00 Mechanical Ventilator 05/08/19 16:00 99.3 88 16 159/84 (109) 97 05/08/19 15:14 91 05/08/19 14:44 90 18 30 05/08/19 13:19 92 18 30 05/08/19 12:00 Mechanical Ventilator 05/08/19 12:00 100.0 94 18 153/90 (111) 97 05/08/19 12:00 30 05/08/19 11:28 79 05/08/19 10:58 84 17 30 Height (Feet): 5 Height (Inches): 3.00 Weight (Pounds): 227 Objective Gen: NAD, On vent HEENT: NCAT, MMM, EOMI LUNGS: CTAB, No W CARDS: RRR, S1, S2, No M/R/G, ABD: Soft, NT, ND Laboratory Tests Test 05/09/19 06:15 White Blood Count 8.1 K/UL (4.8-10.8) Red Blood Count 2.74 M/UL (4.20-5.40) L Hemoglobin 7.9 G/DL (12.0-16.0) L Hematocrit 25.4 % (37.0-47.0) L Mean Corpuscular Volume 93 FL (80-99) Mean Corpuscular Hemoglobin 29.0 PG (27.0-31.0) Mean Corpuscular Hemoglobin Concent 31.3 G/DL (32.0-36.0) L Red Cell Distribution Width 17.1 % (11.6-14.8) H Platelet Count 198 K/UL (150-450) Mean Platelet Volume 7.6 FL (6.5-10.1) Neutrophils (%) (Auto) % (45.0-75.0) Lymphocytes (%) (Auto) % (20.0-45.0) Monocytes (%) (Auto) % (1.0-10.0) Eosinophils (%) (Auto) % (0.0-3.0) Basophils (%) (Auto) % (0.0-2.0) Neutrophils % (Manual) Pending Lymphocytes % (Manual) Pending Platelet Estimate Pending Platelet Morphology Pending Sodium Level 153 MMOL/L (136-145) H Potassium Level 5.1 MMOL/L (3.5-5.1) Chloride Level 116 MMOL/L (98-107) H Carbon Dioxide Level 29 MMOL/L (21-32) Anion Gap 8 mmol/L (5-15) Blood Urea Nitrogen 56 mg/dL (7-18) H Creatinine 1.6 MG/DL (0.55-1.30) H Estimat Glomerular Filtration Rate mL/min (>60) Glucose Level 217 MG/DL (74-106) H Calcium Level 8.6 MG/DL (8.5-10.1) Phosphorus Level 3.8 MG/DL (2.5-4.9) Magnesium Level 2.0 MG/DL (1.8-2.4) Total Bilirubin 0.4 MG/DL (0.2-1.0) Aspartate Amino Transf (AST/SGOT) 31 U/L (15-37) Alanine Aminotransferase (ALT/SGPT) 12 U/L (12-78) Alkaline Phosphatase 102 U/L (46-116) Total Protein 6.9 G/DL (6.4-8.2) Albumin 1.6 G/DL (3.4-5.0) L Globulin 5.3 g/dL Albumin/Globulin Ratio 0.3 (1.0-2.7) L Current Medications Medications (Trade) Dose Ordered Sig/Kenisha Route PRN Reason Start Time Stop Time Status Last Admin Dose Admin Acetaminophen (Tylenol) 650 mg Q4H PRN GT FEVER 05/04/19 17:45 06/03/19 17:32 05/07/19 12:44 Acetaminophen (Tylenol) 650 mg Q4H PRN RECTAL Fever 05/04/19 17:32 06/03/19 17:31 Chlorhexidine Gluconate (Izzy-Hex 2%) 1 applic DAILY@1999 TOPIC 05/04/19 20:00 05/20/19 19:59 05/08/19 19:44 Dextrose (Dextrose 50%) 25 ml Q30M PRN IV Hypoglycemia 05/04/19 17:45 05/12/19 19:44 Dextrose (Dextrose 50%) 50 ml Q30M PRN IV Hypoglycemia 05/04/19 17:45 05/12/19 19:44 Epoetin Bandar (Epoetin Bandar-EPBX(NON ESRD)) 10,000 unit FRI-FRI-FRI SUBQ 05/05/19 21:00 05/28/19 20:59 05/07/19 20:40 Folic Acid (Folate) 1 mg DAILY GT 05/05/19 09:00 05/19/19 08:59 05/08/19 09:01 Hydralazine HCl (Apresoline) 10 mg Q2H PRN IV SBP > 170 mmHg 05/04/19 18:05 06/03/19 18:04 Insulin Aspart (NovoLOG) Q6HR SUBQ 05/05/19 00:00 06/04/19 00:00 05/09/19 05:01 Lansoprazole (Prevacid) 30 mg DAILY GT 05/05/19 09:00 05/22/19 08:59 05/08/19 09:01 Midodrine (Pro-Amatine) 10 mg Q8H PRN GT bp below 100 syst 05/04/19 17:33 06/03/19 17:32 Ondansetron HCl (Zofran) 4 mg Q6H PRN IVP Nausea & Vomiting 05/04/19 17:34 8/8/19 17:33 Polyethylene Glycol (Miralax) 17 gm DAILYPRN PRN GT Constipation 05/04/19 17:34 06/03/19 17:33 Gildardo Gonsalves MD May 09, 2019 09:23
--- NOTE | 2019-05-09 09:41 | General Progress Note ---
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 ICD Codes: E11.22 - Type 2 diabetes mellitus with diabetic chronic kidney disease; N18.4 - Chronic kidney disease, stage 4 (severe) SNOMED: 89510721, 798338112, 119855584 (7) Respiratory failure ICD Codes: J96.90 - Respiratory failure, unspecified, unspecified whether with hypoxia or hypercapnia SNOMED: 127941270 Qualifiers: Qualified Codes: J96.02 - Acute respiratory failure with hypercapnia Status: stable, progressing Assessment/Plan: pt diet abx o2 pulm tx neuro psyc eval cbc bmp am ltach eval Subjective Constitutional: Reports: weakness Allergies: Coded Allergies: No Known Allergies (Unverified , 04/12/19) All Systems: reviewed and negative except above Subjective trach vent altered Objective Last 24 Hour Vital Signs Date Time Temp Pulse Resp B/P (MAP) Pulse Ox O2 Delivery O2 Flow Rate FiO2 05/09/19 09:00 79 17 30 05/09/19 08:00 30 05/09/19 08:00 Mechanical Ventilator 05/09/19 08:00 99.9 94 16 142/94 (110) 97 05/09/19 06:33 91 16 30 05/09/19 05:30 107 28 30 05/09/19 04:00 Mechanical Ventilator 05/09/19 04:00 30 05/09/19 04:00 97.8 83 17 155/80 (105) 97 05/09/19 04:00 76 05/09/19 03:00 81 17 30 05/09/19 01:15 80 17 30 05/09/19 00:00 97.5 88 16 151/84 (106) 96 05/09/19 00:00 30 05/09/19 00:00 Mechanical Ventilator 05/09/19 00:00 76 05/08/19 23:30 82 17 30 05/08/19 21:30 80 17 30 05/08/19 20:00 98.2 81 17 158/89 (112) 97 05/08/19 20:00 30 05/08/19 20:00 Mechanical Ventilator 05/08/19 20:00 74 05/08/19 19:30 81 17 30 05/08/19 17:23 85 18 30 05/08/19 16:00 30 05/08/19 16:00 Mechanical Ventilator 05/08/19 16:00 99.3 88 16 159/84 (109) 97 05/08/19 15:14 91 05/08/19 14:44 90 18 30 05/08/19 13:19 92 18 30 05/08/19 12:00 Mechanical Ventilator 05/08/19 12:00 100.0 94 18 153/90 (111) 97 05/08/19 12:00 30 05/08/19 11:28 79 05/08/19 10:58 84 17 30 Intake and Output 05/08/19 05/09/19 19:00 07:00 Intake Total 640 ml 1020 ml Output Total 550 ml 500 ml Balance 90 ml 520 ml Free Water 100 ml 300 ml Tube Feeding 540 ml 720 ml Output Urine Total 550 ml 500 ml # Bowel Movements 2 4 Laboratory Tests 05/09/19 06:15: White Blood Count 8.1, Red Blood Count 2.74L, Hemoglobin 7.9L, Hematocrit 25.4L , Mean Corpuscular Volume 93, Mean Corpuscular Hemoglobin 29.0, Mean Corpuscular Hemoglobin Concent 31.3L, Red Cell Distribution Width 17.1H, Platelet Count 198, Mean Platelet Volume 7.6, Neutrophils (%) (Auto) , Lymphocytes (%) (Auto) , Monocytes (%) (Auto) , Eosinophils (%) (Auto) , Basophils (%) (Auto) , Neutrophils % (Manual) [Pending], Lymphocytes % (Manual) [Pending], Platelet Estimate [Pending], Platelet Morphology [Pending], Sodium Level 153H, Potassium Level 5.1, Chloride Level 116H, Carbon Dioxide Level 29, Anion Gap 8, Blood Urea Nitrogen 56H, Creatinine 1.6H, Estimat Glomerular Filtration Rate , Glucose Level 217H, Calcium Level 8.6, Phosphorus Level 3.8, Magnesium Level 2.0, Total Bilirubin 0.4, Aspartate Amino Transf (AST/SGOT) 31, Alanine Aminotransferase (ALT/SGPT) 12, Alkaline Phosphatase 102, Total Protein 6.9, Albumin 1.6L, Globulin 5.3, Albumin/Globulin Ratio 0.3L Height (Feet): 5 Height (Inches): 3.00 Weight (Pounds): 227 General Appearance: lethargic EENT: normal ENT inspection Neck: normal alignment Cardiovascular: normal peripheral pulses, normal rate, regular rhythm Respiratory/Chest: chest wall non-tender, lungs clear, normal breath sounds Abdomen: normal bowel sounds, non tender, soft Extremities: normal inspection Edema: no edema noted Arm (L), no edema noted Arm (R), no edema noted Leg (L), no edema noted Leg (R), no edema noted Pedal (L), no edema noted Pedal (R), no edema noted Generalized Neurologic: motor weakness Skin: normal pigmentation, warm/dry Jama Keating DO May 09, 2019 09:41
[2019-05-09 12:00] VITALS: BP 147/92
--- NOTE | 2019-05-09 13:03 | Surgery Progress Note ---
Surgery Progress Note Subjective Procedure Performed tracheostomy Additional Comments no acute events comfortable family at bedside. Objective Last 24 Hour Vital Signs Date Time Temp Pulse Resp B/P (MAP) Pulse Ox O2 Delivery O2 Flow Rate FiO2 05/09/19 12:00 30 05/09/19 12:00 99.0 93 16 147/92 (110) 97 05/09/19 12:00 Mechanical Ventilator 05/09/19 10:40 99 16 30 05/09/19 09:00 79 17 30 05/09/19 08:00 30 05/09/19 08:00 Mechanical Ventilator 05/09/19 08:00 99.9 94 16 142/94 (110) 97 05/09/19 07:40 97 05/09/19 06:33 91 16 30 05/09/19 05:30 107 28 30 05/09/19 04:00 Mechanical Ventilator 05/09/19 04:00 30 05/09/19 04:00 97.8 83 17 155/80 (105) 97 05/09/19 04:00 76 05/09/19 03:00 81 17 30 05/09/19 01:15 80 17 30 05/09/19 00:00 97.5 88 16 151/84 (106) 96 05/09/19 00:00 30 05/09/19 00:00 Mechanical Ventilator 05/09/19 00:00 76 05/08/19 23:30 82 17 30 05/08/19 21:30 80 17 30 05/08/19 20:00 98.2 81 17 158/89 (112) 97 05/08/19 20:00 30 05/08/19 20:00 Mechanical Ventilator 05/08/19 20:00 74 05/08/19 19:30 81 17 30 05/08/19 17:23 85 18 30 05/08/19 16:00 30 05/08/19 16:00 Mechanical Ventilator 05/08/19 16:00 99.3 88 16 159/84 (109) 97 05/08/19 15:14 91 05/08/19 14:44 90 18 30 05/08/19 13:19 92 18 30 I&O Intake and Output 05/08/19 05/09/19 18:59 06:59 Intake Total 640 ml 1020 ml Output Total 550 ml 500 ml Balance 90 ml 520 ml Free Water 100 ml 300 ml Tube Feeding 540 ml 720 ml Output Urine Total 550 ml 500 ml # Bowel Movements 2 4 Dressing: dry Wound: clean, dry Cardiovascular: RSR Respiratory: clear Abdomen: non-tender, present bowel sounds, non-distended Extremities: no tenderness, no cyanosis Laboratory Tests Test 05/09/19 06:15 White Blood Count 8.1 K/UL (4.8-10.8) Red Blood Count 2.74 M/UL (4.20-5.40) L Hemoglobin 7.9 G/DL (12.0-16.0) L Hematocrit 25.4 % (37.0-47.0) L Mean Corpuscular Volume 93 FL (80-99) Mean Corpuscular Hemoglobin 29.0 PG (27.0-31.0) Mean Corpuscular Hemoglobin Concent 31.3 G/DL (32.0-36.0) L Red Cell Distribution Width 17.1 % (11.6-14.8) H Platelet Count 198 K/UL (150-450) Mean Platelet Volume 7.6 FL (6.5-10.1) Neutrophils (%) (Auto) % (45.0-75.0) Lymphocytes (%) (Auto) % (20.0-45.0) Monocytes (%) (Auto) % (1.0-10.0) Eosinophils (%) (Auto) % (0.0-3.0) Basophils (%) (Auto) % (0.0-2.0) Differential Total Cells Counted 100 Neutrophils % (Manual) 82 % (45-75) H Lymphocytes % (Manual) 16 % (20-45) L Monocytes % (Manual) 2 % (1-10) Eosinophils % (Manual) 0 % (0-3) Basophils % (Manual) 0 % (0-2) Band Neutrophils 0 % (0-8) Platelet Estimate Adequate Platelet Morphology Normal Hypochromasia 1+ Anisocytosis 1+ Sodium Level 153 MMOL/L (136-145) H Potassium Level 5.1 MMOL/L (3.5-5.1) Chloride Level 116 MMOL/L (98-107) H Carbon Dioxide Level 29 MMOL/L (21-32) Anion Gap 8 mmol/L (5-15) Blood Urea Nitrogen 56 mg/dL (7-18) H Creatinine 1.6 MG/DL (0.55-1.30) H Estimat Glomerular Filtration Rate mL/min (>60) Glucose Level 217 MG/DL (74-106) H Calcium Level 8.6 MG/DL (8.5-10.1) Phosphorus Level 3.8 MG/DL (2.5-4.9) Magnesium Level 2.0 MG/DL (1.8-2.4) Total Bilirubin 0.4 MG/DL (0.2-1.0) Aspartate Amino Transf (AST/SGOT) 31 U/L (15-37) Alanine Aminotransferase (ALT/SGPT) 12 U/L (12-78) Alkaline Phosphatase 102 U/L (46-116) Total Protein 6.9 G/DL (6.4-8.2) Albumin 1.6 G/DL (3.4-5.0) L Globulin 5.3 g/dL Albumin/Globulin Ratio 0.3 (1.0-2.7) L Plan Problems: (1) Respiratory distress Assessment & Plan: s/p trach stable wean vent as tolerated downgraded improving will follow with recs dressing prn (2) Malnutrition (3) UTI (urinary tract infection) (4) Diabetic nephropathy (5) Renal failure (ARF), acute on chronic (6) Anemia in chronic kidney disease (CKD) (7) Pulmonary hypertension (8) Acute respiratory failure (9) Respiratory failure (10) Hypernatremia (11) Sepsis Assessment & Plan: cont with current care trend labs will follow with recs (12) Pneumonia (13) History of CVA (cerebrovascular accident) (14) CAD (coronary artery disease) (15) Right hemiplegia Assessment & Plan: Sacral pressure injury resolved-dry peelingh skin without erythema noted. Incontinence associated dermatitis noted to medial aspects of both thighs,abd folds and perineum .Affected areas are erythematous and denuded. Moisture associated dermatitis noted to R and L axillae. erythema with denuded skin skin noted to affected areas. Both heels are dry ,firm and blanchable. Tx.Plan: Wash and pat dry R and L axillae,abd folds,perineum and medial aspects of both upper thighs. Apply Remedy Antifungal oint Twice Daily. Apply Moisture Barrier Paste to Sacrum . Cover with Optifoam drsg. Change every 3 days and prn. Apply Caviilon Skin Barrier to both heels. Cover each heel with Optifoam drsg. Change every 7 days and prn. APM/MARIA INES mattress. Reposition at least every 2houers or as tolerated. Off-load heels with pillow. 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
--- NOTE | 2019-05-09 14:17 | Nephrology Progress Note ---
Assessment/Plan Problem List: (1) Renal failure (ARF), acute on chronic (2) Diabetic nephropathy (3) Sepsis (4) Pneumonia (5) Right hemiplegia (6) Anemia in chronic kidney disease (CKD) (7) Pulmonary hypertension Assessment intubated- Renal failure; - Pre Renal - ? Underlying Renal Anemia Pneumonia / respiratory failure Sepsis elevated Troponin UTI HyperGlycemia / DM Right Esvin HTN Plan trach 05/03 done kayexelate as needed consider transfusion as needed one liter D5W 05/09 discussed with RN transfuse for low Hgb as needed K Phos IV as needed venofer Folate 24 H urine protein check 2.4 gram Fraga Hydrate BP and BS control urine studies slow hydrate kidney MAIKEL results noted: No Linn 2D echo Noted visualized except distal setum and inferiro wall hypokinesis Left ventricular ejection fraction estimated to be 55-60 %. avoid Nephrotoxics per orders Subjective ROS Limited/Unobtainable: Yes Objective Objective Last 24 Hour Vital Signs Date Time Temp Pulse Resp B/P (MAP) Pulse Ox O2 Delivery O2 Flow Rate FiO2 05/09/19 13:01 94 16 30 05/09/19 12:00 30 05/09/19 12:00 99.0 93 16 147/92 (110) 97 05/09/19 12:00 Mechanical Ventilator 05/09/19 11:30 98 05/09/19 10:40 99 16 30 05/09/19 09:00 79 17 30 05/09/19 08:00 30 05/09/19 08:00 Mechanical Ventilator 05/09/19 08:00 99.9 94 16 142/94 (110) 97 05/09/19 07:40 97 05/09/19 06:33 91 16 30 05/09/19 05:30 107 28 30 05/09/19 04:00 Mechanical Ventilator 05/09/19 04:00 30 05/09/19 04:00 97.8 83 17 155/80 (105) 97 05/09/19 04:00 76 05/09/19 03:00 81 17 30 05/09/19 01:15 80 17 30 05/09/19 00:00 97.5 88 16 151/84 (106) 96 05/09/19 00:00 30 05/09/19 00:00 Mechanical Ventilator 05/09/19 00:00 76 05/08/19 23:30 82 17 30 05/08/19 21:30 80 17 30 05/08/19 20:00 98.2 81 17 158/89 (112) 97 05/08/19 20:00 30 05/08/19 20:00 Mechanical Ventilator 05/08/19 20:00 74 05/08/19 19:30 81 17 30 05/08/19 17:23 85 18 30 05/08/19 16:00 30 05/08/19 16:00 Mechanical Ventilator 05/08/19 16:00 99.3 88 16 159/84 (109) 97 05/08/19 15:14 91 05/08/19 14:44 90 18 30 Intake and Output 05/08/19 05/09/19 18:59 06:59 Intake Total 640 ml 1020 ml Output Total 550 ml 500 ml Balance 90 ml 520 ml Free Water 100 ml 300 ml Tube Feeding 540 ml 720 ml Output Urine Total 550 ml 500 ml # Bowel Movements 2 4 Laboratory Tests 05/09/19 06:15: White Blood Count 8.1, Red Blood Count 2.74L, Hemoglobin 7.9L, Hematocrit 25.4L , Mean Corpuscular Volume 93, Mean Corpuscular Hemoglobin 29.0, Mean Corpuscular Hemoglobin Concent 31.3L, Red Cell Distribution Width 17.1H, Platelet Count 198, Mean Platelet Volume 7.6, Neutrophils (%) (Auto) , Lymphocytes (%) (Auto) , Monocytes (%) (Auto) , Eosinophils (%) (Auto) , Basophils (%) (Auto) , Differential Total Cells Counted 100, Neutrophils % ( Manual) 82H, Lymphocytes % (Manual) 16L, Monocytes % (Manual) 2, Eosinophils % ( Manual) 0, Basophils % (Manual) 0, Band Neutrophils 0, Platelet Estimate Adequate, Platelet Morphology Normal, Hypochromasia 1+, Anisocytosis 1+, Sodium Level 153H, Potassium Level 5.1, Chloride Level 116H, Carbon Dioxide Level 29, Anion Gap 8, Blood Urea Nitrogen 56H, Creatinine 1.6H, Estimat Glomerular Filtration Rate , Glucose Level 217H, Calcium Level 8.6, Phosphorus Level 3.8, Magnesium Level 2.0, Total Bilirubin 0.4, Aspartate Amino Transf (AST/SGOT) 31, Alanine Aminotransferase (ALT/SGPT) 12, Alkaline Phosphatase 102, Total Protein 6.9, Albumin 1.6L, Globulin 5.3, Albumin/Globulin Ratio 0.3L Height (Feet): 5 Height (Inches): 3.00 Weight (Pounds): 227 General Appearance: no apparent distress EENT: other Cardiovascular: tachycardia Respiratory/Chest: decreased breath sounds Abdomen: soft Objective no change Wally Spivey MD May 09, 2019 14:17
[2019-05-09 16:00] VITALS: BP 151/92
--- NOTE | 2019-05-09 16:15 | Progress Note ---
DATE: 05/09/2019 SUBJECTIVE: This is a 79-year-old female patient with sepsis. She is very confused, disorganized. . She has altered mental status and confusion. MENTAL STATUS EXAMINATION: This is a 79-year-old female. Appearance is disheveled. Attitude, irritable and agitated. Insight and judgment is poor. DIAGNOSIS: Major depression disorder, mild recurrent with psychotic features, rule out dementia with psychosis. PLAN: Continue treatment with medications to clear for disorganized thought process. Treat with medications to stabilize the mood. 20 minutes of behavioral management. Seen and assessed in her room. Omar Glover M.D. DR: DEB JOB#: [id number] CC:
--- NOTE | 2019-05-09 17:02 | Neurology Progress Note ---
Interim History Interim History ROS Limited/Unobtainable: Yes Complaints: AMS Events: Weaning attempts unsuccessful, PEG placed Interim History remains confused Objective Physical Exam Last Vital Signs Date Time Temp Pulse Resp B/P (MAP) Pulse Ox O2 Delivery O2 Flow Rate FiO2 05/09/19 16:49 94 16 30 05/09/19 16:00 Mechanical Ventilator 05/09/19 12:00 99.0 147/92 (110) 97 Laboratory Tests Test 05/09/19 06:15 White Blood Count 8.1 K/UL (4.8-10.8) Red Blood Count 2.74 M/UL (4.20-5.40) L Hemoglobin 7.9 G/DL (12.0-16.0) L Hematocrit 25.4 % (37.0-47.0) L Mean Corpuscular Volume 93 FL (80-99) Mean Corpuscular Hemoglobin 29.0 PG (27.0-31.0) Mean Corpuscular Hemoglobin Concent 31.3 G/DL (32.0-36.0) L Red Cell Distribution Width 17.1 % (11.6-14.8) H Platelet Count 198 K/UL (150-450) Mean Platelet Volume 7.6 FL (6.5-10.1) Neutrophils (%) (Auto) % (45.0-75.0) Lymphocytes (%) (Auto) % (20.0-45.0) Monocytes (%) (Auto) % (1.0-10.0) Eosinophils (%) (Auto) % (0.0-3.0) Basophils (%) (Auto) % (0.0-2.0) Differential Total Cells Counted 100 Neutrophils % (Manual) 82 % (45-75) H Lymphocytes % (Manual) 16 % (20-45) L Monocytes % (Manual) 2 % (1-10) Eosinophils % (Manual) 0 % (0-3) Basophils % (Manual) 0 % (0-2) Band Neutrophils 0 % (0-8) Platelet Estimate Adequate Platelet Morphology Normal Hypochromasia 1+ Anisocytosis 1+ Sodium Level 153 MMOL/L (136-145) H Potassium Level 5.1 MMOL/L (3.5-5.1) Chloride Level 116 MMOL/L (98-107) H Carbon Dioxide Level 29 MMOL/L (21-32) Anion Gap 8 mmol/L (5-15) Blood Urea Nitrogen 56 mg/dL (7-18) H Creatinine 1.6 MG/DL (0.55-1.30) H Estimat Glomerular Filtration Rate mL/min (>60) Glucose Level 217 MG/DL (74-106) H Calcium Level 8.6 MG/DL (8.5-10.1) Phosphorus Level 3.8 MG/DL (2.5-4.9) Magnesium Level 2.0 MG/DL (1.8-2.4) Total Bilirubin 0.4 MG/DL (0.2-1.0) Aspartate Amino Transf (AST/SGOT) 31 U/L (15-37) Alanine Aminotransferase (ALT/SGPT) 12 U/L (12-78) Alkaline Phosphatase 102 U/L (46-116) Total Protein 6.9 G/DL (6.4-8.2) Albumin 1.6 G/DL (3.4-5.0) L Globulin 5.3 g/dL Albumin/Globulin Ratio 0.3 (1.0-2.7) L General: well developed, well nourished, no acute distress Head: normocophalic Neck: no rigidity EENT: benign Neurologic Exam Mental Status: awake, other Speech: other Language: other Cranial Nerve II: fundus normal, visual cruz, no papilledema, other Cranial Nerves III, IV, : PERRLA, EOMI, other Cranial Nerve V: other Cranial Nerve VII: other Cranial Nerve VIII: other Cranial Nerve IX: other Cranial Nerve XI: other Cranial Nerve XII: other Motor System: other Sensory: other Coordination: other Gait: other Objective Not following commands Moving all 4 ext spontaneously CN intact Impression/Recommendations Problems: (1) Respiratory distress (2) Malnutrition (3) UTI (urinary tract infection) (4) Diabetic nephropathy (5) Renal failure (ARF), acute on chronic (6) Anemia in chronic kidney disease (CKD) (7) Pulmonary hypertension (8) Acute respiratory failure (9) Respiratory failure (10) Hypernatremia (11) Sepsis (12) Pneumonia (13) History of CVA (cerebrovascular accident) (14) CAD (coronary artery disease) (15) Right hemiplegia (16) Diabetes mellitus (17) Hypertensive heart disease (18) 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
--- NOTE | 2019-05-09 19:29 | Cardiac Electrophysiology PN ---
Assessment/Plan Assessment/Plan 1. Atrial flutter, self terminated. In SR. 2. Hypotension. Resolved. 3. Coronary artery disease. On Plavix 75 mg daily 4. Respiratory failure EF 60%.S/P Tracheostomy 05/03/19 on the vent 5. Sepsis with White count 25,000. Resolved. WBC today 7.5 6. Anemia.S/P PRBC. 7. Renal failure BUN/Cr improved with hydration by Dr. Spivey 8. Dysphagia. S/P PEG 04/22/19 9. History of CVA with hemiplegia. 10. Nonverbal status. 11. Full code 12. Mild fever. Resolved with Tylenol. Off Abx 13. Hypernatremia on D5W per Dr Patric DUNN RN Subjective Subjective S/P Tracheostomy 05/03/19. In SR on the Vent. Opens her eyes and tracks. Still hypernatremic on D5W. Objective Last 24 Hour Vital Signs Date Time Temp Pulse Resp B/P (MAP) Pulse Ox O2 Delivery O2 Flow Rate FiO2 05/09/19 16:49 94 16 30 05/09/19 16:00 98.4 95 21 151/92 (111) 100 05/09/19 16:00 Mechanical Ventilator 05/09/19 16:00 30 05/09/19 15:27 92 05/09/19 15:02 92 15 30 05/09/19 13:01 94 16 30 05/09/19 12:00 30 05/09/19 12:00 99.0 93 16 147/92 (110) 97 05/09/19 12:00 Mechanical Ventilator 05/09/19 11:30 98 05/09/19 10:40 99 16 30 05/09/19 09:00 79 17 30 05/09/19 08:00 30 05/09/19 08:00 Mechanical Ventilator 05/09/19 08:00 99.9 94 16 142/94 (110) 97 05/09/19 07:40 97 05/09/19 06:33 91 16 30 05/09/19 05:30 107 28 30 05/09/19 04:00 Mechanical Ventilator 05/09/19 04:00 30 05/09/19 04:00 97.8 83 17 155/80 (105) 97 05/09/19 04:00 76 05/09/19 03:00 81 17 30 05/09/19 01:15 80 17 30 05/09/19 00:00 97.5 88 16 151/84 (106) 96 05/09/19 00:00 30 05/09/19 00:00 Mechanical Ventilator 05/09/19 00:00 76 05/08/19 23:30 82 17 30 05/08/19 21:30 80 17 30 05/08/19 20:00 98.2 81 17 158/89 (112) 97 05/08/19 20:00 30 05/08/19 20:00 Mechanical Ventilator 05/08/19 20:00 74 05/08/19 19:30 81 17 30 Intake and Output 05/08/19 05/09/19 19:00 07:00 Intake Total 640 ml 1020 ml Output Total 550 ml 500 ml Balance 90 ml 520 ml Free Water 100 ml 300 ml Tube Feeding 540 ml 720 ml Output Urine Total 550 ml 500 ml # Bowel Movements 2 4 Laboratory Tests Test 05/09/19 06:15 White Blood Count 8.1 K/UL (4.8-10.8) Red Blood Count 2.74 M/UL (4.20-5.40) L Hemoglobin 7.9 G/DL (12.0-16.0) L Hematocrit 25.4 % (37.0-47.0) L Mean Corpuscular Volume 93 FL (80-99) Mean Corpuscular Hemoglobin 29.0 PG (27.0-31.0) Mean Corpuscular Hemoglobin Concent 31.3 G/DL (32.0-36.0) L Red Cell Distribution Width 17.1 % (11.6-14.8) H Platelet Count 198 K/UL (150-450) Mean Platelet Volume 7.6 FL (6.5-10.1) Neutrophils (%) (Auto) % (45.0-75.0) Lymphocytes (%) (Auto) % (20.0-45.0) Monocytes (%) (Auto) % (1.0-10.0) Eosinophils (%) (Auto) % (0.0-3.0) Basophils (%) (Auto) % (0.0-2.0) Differential Total Cells Counted 100 Neutrophils % (Manual) 82 % (45-75) H Lymphocytes % (Manual) 16 % (20-45) L Monocytes % (Manual) 2 % (1-10) Eosinophils % (Manual) 0 % (0-3) Basophils % (Manual) 0 % (0-2) Band Neutrophils 0 % (0-8) Platelet Estimate Adequate Platelet Morphology Normal Hypochromasia 1+ Anisocytosis 1+ Sodium Level 153 MMOL/L (136-145) H Potassium Level 5.1 MMOL/L (3.5-5.1) Chloride Level 116 MMOL/L (98-107) H Carbon Dioxide Level 29 MMOL/L (21-32) Anion Gap 8 mmol/L (5-15) Blood Urea Nitrogen 56 mg/dL (7-18) H Creatinine 1.6 MG/DL (0.55-1.30) H Estimat Glomerular Filtration Rate mL/min (>60) Glucose Level 217 MG/DL (74-106) H Calcium Level 8.6 MG/DL (8.5-10.1) Phosphorus Level 3.8 MG/DL (2.5-4.9) Magnesium Level 2.0 MG/DL (1.8-2.4) Total Bilirubin 0.4 MG/DL (0.2-1.0) Aspartate Amino Transf (AST/SGOT) 31 U/L (15-37) Alanine Aminotransferase (ALT/SGPT) 12 U/L (12-78) Alkaline Phosphatase 102 U/L (46-116) Total Protein 6.9 G/DL (6.4-8.2) Albumin 1.6 G/DL (3.4-5.0) L Globulin 5.3 g/dL Albumin/Globulin Ratio 0.3 (1.0-2.7) L Objective HEAD AND NECK: No JVD. S/P tracheostomy LUNGS: Coarse rhonchi bilaterally. CARDIOVASCULAR: Regular S1 and S2 with no gallop. ABDOMEN: Soft.PEG in place EXTREMITIES: No pitting edema. Claude Pena MD May 09, 2019 19:29
--- NOTE | 2019-05-09 19:31 | NUR ---
HAND-OFF: Report given to Afua BURNETT. Pt. remain stable.
--- NOTE | 2019-05-09 19:38 | NUR ---
NURSE NOTES: Received report from Radha BURNETT, pt. is awake and alert in bed obtunded, secured entrance monitor on, no signs or symptoms of acute cardiac or respiratory distress noted, bed alarm on, side rails up x's3 and safety brakes engaged, comfort measures provided- pt. repositioned and turned, pt. appears to be tolerating current vent settings- AC16, TV 500, peep 5 and Fio2 at 30%- no distress noted, G tube feeding running Glucerna 1.2 at 60cc/hr- no residual noted, Fraga intact and draining to gravity, pt. appears to be clean and dry and resting comfortably in bed, SUZIE PICC intact and patent, safety measure continued, will continue with plan of care.
[2019-05-09 20:00] VITALS: BP 140/77
[2019-05-09] MEDS: Dyna-Hex 2% Top Sol 2oz TOPIC SCH (21:09)
[2019-05-10] VITALS: BP 143/72
[2019-05-10 04:00] VITALS: BP 141/65
[2019-05-10] MEDS: NovoLOG Insulin Flexpen SUBQ SCH ×3 (05:02→19:33)
[2019-05-10 05:44] LABS: HEMATOCRIT 23.4 % (37.0-47.0); HEMOGLOBIN 7.3 G/DL (12.0-16.0); MEAN CORPUSCULAR VOLUME 93 FL (80-99); PLATELET COUNT 200 K/UL (150-450); RED BLOOD COUNT 2.51 M/UL (4.20-5.40); RED CELL DISTRIBUTION WIDTH 17.6 % (11.6-14.8); WHITE BLOOD COUNT 7.5 K/UL (4.8-10.8)
[2019-05-10 06:04] LABS: ANION GAP 8 mmol/L (5-15); BLOOD UREA NITROGEN 54 mg/dL (7-18); CALCIUM 8.9 MG/DL (8.5-10.1); CARBON DIOXIDE 26 MMOL/L (21-32); CHLORIDE 113 MMOL/L (98-107); CREATININE 1.5 MG/DL (0.55-1.30); POTASSIUM 4.7 MMOL/L (3.5-5.1); SODIUM 147 MMOL/L (136-145)
--- NOTE | 2019-05-10 06:57 | NUR ---
HAND-OFF: Report given to Radha BURNETT, pt. remains stable and no signs of distress noted- nurse aware to f/u on abnormal labs HGB and HCT trending down.
--- NOTE | 2019-05-10 07:00 | NUR ---
RESPIRATORY NOTES: Received patient on ventilator settings of ACVC RR 16, VT 500, FIO2 30%, PEEP +5. Patient trached with a Shiley 8 tracheostomy tube, secured with trach ties. Bilateral rhonchi breath sounds noted. Suction minimal amounts of thick yellow blood tinged secretions through the trach and minimal clear through the mouth. Vent plugged into red outlet. Alarms are on and audible. Will continue to closely monitor throughout the day.
--- NOTE | 2019-05-10 07:15 | NUR ---
NURSE NOTES: Received bedside report from Afua BURNETT. Pt. in bed, asleep but arousable. Non-verbal. No sign of distress. On mech. vent with setting of AC16/VT500/FiO2 at 30%/P5. No grimacing noted. F/C in placed patent/intact draining yellow colored urine. PICC line at left upper arm in placed with 2 lumen patent/intact. Dressing change per previous shift. HOB elevated at all times. On GTF Glucerna 1.2 cont. at 60cc/hr. Tolerating well. Call light within reach. Will cont. to monitor.
[2019-05-10 08:00] VITALS: BP 156/83
--- NOTE | 2019-05-10 08:53 | NUR ---
FURRIER DESIGNERFICTION AND NONFICTION WRITER PROSE SI:RESPIRATORY FAILURE . CAD VS: BP156/83, P 98, T 99.4, RR 18, SpO2 100 on VENT FiO2 30 RBC 2.51, H&H 7.3/23.4, Na 147, BUN 54, Cr 1.5, Glucose 241 IS:NOVOLOG SUBQ EPOETIN LARA SUBQ PREVACID 30mg SDU STATUS Addendum: 05/10/19 at 1111 by Cesia Marroquin LVN NOTE: THE ABOVE REVIEW IS FOR 05/09
--- NOTE | 2019-05-10 09:18 | General Progress Note ---
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 ICD Codes: E11.22 - Type 2 diabetes mellitus with diabetic chronic kidney disease; N18.4 - Chronic kidney disease, stage 4 (severe) SNOMED: 17801914, 809007833, 988861263 (7) Respiratory failure ICD Codes: J96.90 - Respiratory failure, unspecified, unspecified whether with hypoxia or hypercapnia SNOMED: 425253044 Qualifiers: Qualified Codes: J96.02 - Acute respiratory failure with hypercapnia Status: stable, progressing Assessment/Plan: pt diet abx o2 pulm tx neuro psyc eval cbc bmp am ltach eval Subjective Constitutional: Reports: weakness Allergies: Coded Allergies: No Known Allergies (Unverified , 04/12/19) All Systems: reviewed and negative except above Subjective trach vent altered Objective Last 24 Hour Vital Signs Date Time Temp Pulse Resp B/P (MAP) Pulse Ox O2 Delivery O2 Flow Rate FiO2 05/10/19 08:46 83 16 30 05/10/19 08:00 30 05/10/19 08:00 99.4 92 18 156/83 (107) 98 05/10/19 07:11 97 17 30 05/10/19 04:52 98 17 30 05/10/19 04:00 Mechanical Ventilator 05/10/19 04:00 98.1 70 18 141/65 (90) 100 05/10/19 04:00 30 05/10/19 03:56 76 05/10/19 03:30 80 16 30 05/10/19 01:08 81 16 30 05/10/19 00:00 98.0 75 18 143/72 (95) 100 05/10/19 00:00 99 7/15/19 00:00 Mechanical Ventilator 05/10/19 00:00 30 05/09/19 23:34 81 16 30 05/09/19 21:25 80 16 30 05/09/19 20:23 82 16 30 05/09/19 20:00 30 05/09/19 20:00 87 05/09/19 20:00 Mechanical Ventilator 05/09/19 20:00 98.2 82 18 140/77 (98) 100 05/09/19 16:49 94 16 30 05/09/19 16:00 98.4 95 21 151/92 (111) 100 05/09/19 16:00 Mechanical Ventilator 05/09/19 16:00 30 05/09/19 15:27 92 05/09/19 15:02 92 15 30 05/09/19 13:01 94 16 30 05/09/19 12:00 30 05/09/19 12:00 99.0 93 16 147/92 (110) 97 05/09/19 12:00 Mechanical Ventilator 05/09/19 11:30 98 05/09/19 10:40 99 16 30 Intake and Output 05/09/19 05/10/19 19:00 07:00 Intake Total 1320 ml 1560 ml Output Total 450 ml 450 ml Balance 870 ml 1110 ml Free Water 200 ml 300 ml IV Total 400 ml 600 ml Tube Feeding 720 ml 660 ml Output Urine Total 450 ml 450 ml # Bowel Movements 1 Laboratory Tests 05/10/19 03:20: White Blood Count 7.5, Red Blood Count 2.51L, Hemoglobin 7.3L, Hematocrit 23.4L , Mean Corpuscular Volume 93, Mean Corpuscular Hemoglobin 29.0, Mean Corpuscular Hemoglobin Concent 31.0L, Red Cell Distribution Width 17.6H, Platelet Count 200, Mean Platelet Volume 6.1L, Neutrophils (%) (Auto) , Lymphocytes (%) (Auto) , Monocytes (%) (Auto) , Eosinophils (%) (Auto) , Basophils (%) (Auto) , Neutrophils % (Manual) [Pending], Lymphocytes % (Manual) [Pending], Platelet Estimate [Pending], Platelet Morphology [Pending], Sodium Level 147H, Potassium Level 4.7, Chloride Level 113H, Carbon Dioxide Level 26, Anion Gap 8, Blood Urea Nitrogen 54H, Creatinine 1.5H, Estimat Glomerular Filtration Rate , Glucose Level 241H, Calcium Level 8.9 Height (Feet): 5 Height (Inches): 3.00 Weight (Pounds): 227 General Appearance: lethargic EENT: normal ENT inspection Neck: normal alignment Cardiovascular: normal peripheral pulses, normal rate, regular rhythm Respiratory/Chest: chest wall non-tender, lungs clear, normal breath sounds Abdomen: normal bowel sounds, non tender, soft Extremities: normal inspection Edema: no edema noted Arm (L), no edema noted Arm (R), no edema noted Leg (L), no edema noted Leg (R), no edema noted Pedal (L), no edema noted Pedal (R), no edema noted Generalized Neurologic: motor weakness Skin: normal pigmentation, warm/dry Jama Keating DO May 10, 2019 09:17
--- NOTE | 2019-05-10 10:08 | NUR ---
INSURANCE CLINICALS AND REVIEWS FAXED TO [facility] AT [facility] T: [phone] F:[phone]
--- NOTE | 2019-05-10 10:37 | Pulmonolgy Critical Care Note ---
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 (7) Hypertensive heart disease (8) Right hemiplegia (9) History of CVA (cerebrovascular accident) (10) CAD (coronary artery disease) Respiratory: monitor respiratory rate, adjust FIO2, CXR Cardiac: continue pressors, stop pressors, continue to monitor HR/BP Renal: check electrolytes Infectious Disease: check cultures, continue antibiotics Gastrointestinal: continue feedings/current rate Endocrine: monitor blood sugar, check TSH, check HgA1C Hematologic: transfuse if hgb<8.5 Neurologic: PRN Ativan, PRN Morphine, keep patient comfortable Prophylaxis: Protonix Time Spent (Minutes): 30 Notes Reviewed: cardio Discussed with: nurses, consultants, watch casersales team manager - Objective Last 24 Hour Vital Signs Date Time Temp Pulse Resp B/P (MAP) Pulse Ox O2 Delivery O2 Flow Rate FiO2 05/10/19 08:46 83 16 30 05/10/19 08:00 Mechanical Ventilator 05/10/19 08:00 30 05/10/19 08:00 99.4 92 18 156/83 (107) 98 05/10/19 07:54 95 05/10/19 07:11 97 17 30 05/10/19 04:52 98 17 30 05/10/19 04:00 Mechanical Ventilator 05/10/19 04:00 98.1 70 18 141/65 (90) 100 05/10/19 04:00 30 05/10/19 03:56 76 05/10/19 03:30 80 16 30 05/10/19 01:08 81 16 30 05/10/19 00:00 98.0 75 18 143/72 (95) 100 05/10/19 00:00 99 05/10/19 00:00 Mechanical Ventilator 05/10/19 00:00 30 05/09/19 23:34 81 16 30 05/09/19 21:25 80 16 30 05/09/19 20:23 82 16 30 05/09/19 20:00 30 05/09/19 20:00 87 05/09/19 20:00 Mechanical Ventilator 05/09/19 20:00 98.2 82 18 140/77 (98) 100 05/09/19 16:49 94 16 30 05/09/19 16:00 98.4 95 21 151/92 (111) 100 05/09/19 16:00 Mechanical Ventilator 05/09/19 16:00 30 05/09/19 15:27 92 05/09/19 15:02 92 15 30 05/09/19 13:01 94 16 30 05/09/19 12:00 30 05/09/19 12:00 99.0 93 16 147/92 (110) 97 05/09/19 12:00 Mechanical Ventilator 05/09/19 11:30 98 05/09/19 10:40 99 16 30 Status: somnolent Condition: critical HEENT: atraumatic Neck: full ROM Lungs: chest wall tender Heart: HR/BP unstable Abdomen: non-tender, feeding tube Decubiti: location Accucheck: 235 Critical Care - Subjective ROS Limited/Unobtainable: No Condition: critical EKG Rhythm: Sinus Rhythm FI02: 30 Vent Support Breath Rate: 16 Vent Support Mode: AC Vent Tidal Volume: 500 Sputum Amount: Small PEEP: 5.0 PIP: 36 Tube Feeding Amount: 60 I&O: Intake and Output 05/09/19 05/10/19 19:00 07:00 Intake Total 1320 ml 1560 ml Output Total 450 ml 450 ml Balance 870 ml 1110 ml Free Water 200 ml 300 ml IV Total 400 ml 600 ml Tube Feeding 720 ml 660 ml Output Urine Total 450 ml 450 ml # Bowel Movements 1 ET-Tube: 7.5 ET Position: 23 Labs: Laboratory Tests Test 05/10/19 03:20 White Blood Count 7.5 K/UL (4.8-10.8) Red Blood Count 2.51 M/UL (4.20-5.40) L Hemoglobin 7.3 G/DL (12.0-16.0) L Hematocrit 23.4 % (37.0-47.0) L Mean Corpuscular Volume 93 FL (80-99) Mean Corpuscular Hemoglobin 29.0 PG (27.0-31.0) Mean Corpuscular Hemoglobin Concent 31.0 G/DL (32.0-36.0) L Red Cell Distribution Width 17.6 % (11.6-14.8) H Platelet Count 200 K/UL (150-450) Mean Platelet Volume 6.1 FL (6.5-10.1) L Neutrophils (%) (Auto) % (45.0-75.0) Lymphocytes (%) (Auto) % (20.0-45.0) Monocytes (%) (Auto) % (1.0-10.0) Eosinophils (%) (Auto) % (0.0-3.0) Basophils (%) (Auto) % (0.0-2.0) Differential Total Cells Counted 100 Neutrophils % (Manual) 71 % (45-75) Lymphocytes % (Manual) 17 % (20-45) L Monocytes % (Manual) 11 % (1-10) H Eosinophils % (Manual) 1 % (0-3) Basophils % (Manual) 0 % (0-2) Band Neutrophils 0 % (0-8) Nucleated Red Blood Cells 1 /100 WBC Platelet Estimate Adequate Platelet Morphology Normal Hypochromasia 3+ Anisocytosis 2+ Sodium Level 147 MMOL/L (136-145) H Potassium Level 4.7 MMOL/L (3.5-5.1) Chloride Level 113 MMOL/L (98-107) H Carbon Dioxide Level 26 MMOL/L (21-32) Anion Gap 8 mmol/L (5-15) Blood Urea Nitrogen 54 mg/dL (7-18) H Creatinine 1.5 MG/DL (0.55-1.30) H Estimat Glomerular Filtration Rate mL/min (>60) Glucose Level 241 MG/DL (74-106) H Calcium Level 8.9 MG/DL (8.5-10.1) Tony Springer MD May 10, 2019 10:37
[2019-05-10] MEDS: Acetaminophen 650mg/20.3ml GT PRN (10:41)
--- NOTE | 2019-05-10 10:56 | GI Progress Note ---
Assessment/Plan Problems: (1) At high risk for aspiration ICD Codes: Z91.89 - Other specified personal risk factors, not elsewhere classified SNOMED: 404156719 (2) Malnutrition ICD Codes: E46 - Unspecified protein-calorie malnutrition SNOMED: 14202163 (3) Diabetes mellitus ICD Codes: E11.9 - Type 2 diabetes mellitus without complications SNOMED: 05984647 Status: stable Status Narrative Discussed with Dr. Gentile. Assessment/Plan s/p tracheostomy GTF fu labs fu pulm recs prn blood transfusion ppi dc planning The patient was seen and examined at bedside and all new and available data was reviewed in the patients chart. I agree with the above findings, impression and plan. (Patient seen earlier today. Signature stamp does not reflect patient encounter time.). - Darron Gentile MD Subjective Subjective limited Objective Last 24 Hour Vital Signs Date Time Temp Pulse Resp B/P (MAP) Pulse Ox O2 Delivery O2 Flow Rate FiO2 05/10/19 08:46 83 16 30 05/10/19 08:00 Mechanical Ventilator 05/10/19 08:00 30 05/10/19 08:00 99.4 92 18 156/83 (107) 98 05/10/19 07:54 95 05/10/19 07:11 97 17 30 05/10/19 04:52 98 17 30 05/10/19 04:00 Mechanical Ventilator 05/10/19 04:00 98.1 70 18 141/65 (90) 100 05/10/19 04:00 30 05/10/19 03:56 76 05/10/19 03:30 80 16 30 05/10/19 01:08 81 16 30 05/10/19 00:00 98.0 75 18 143/72 (95) 100 05/10/19 00:00 99 05/10/19 00:00 Mechanical Ventilator 05/10/19 00:00 30 05/09/19 23:34 81 16 30 05/09/19 21:25 80 16 30 05/09/19 20:23 82 16 30 05/09/19 20:00 30 05/09/19 20:00 87 05/09/19 20:00 Mechanical Ventilator 05/09/19 20:00 98.2 82 18 140/77 (98) 100 05/09/19 16:49 94 16 30 05/09/19 16:00 98.4 95 21 151/92 (111) 100 05/09/19 16:00 Mechanical Ventilator 05/09/19 16:00 30 05/09/19 15:27 92 05/09/19 15:02 92 15 30 05/09/19 13:01 94 16 30 05/09/19 12:00 30 05/09/19 12:00 99.0 93 16 147/92 (110) 97 05/09/19 12:00 Mechanical Ventilator 05/09/19 11:30 98 Intake and Output 05/09/19 05/10/19 19:00 07:00 Intake Total 1320 ml 1560 ml Output Total 450 ml 450 ml Balance 870 ml 1110 ml Free Water 200 ml 300 ml IV Total 400 ml 600 ml Tube Feeding 720 ml 660 ml Output Urine Total 450 ml 450 ml # Bowel Movements 1 Laboratory Tests Test 05/10/19 03:20 White Blood Count 7.5 K/UL (4.8-10.8) Red Blood Count 2.51 M/UL (4.20-5.40) L Hemoglobin 7.3 G/DL (12.0-16.0) L Hematocrit 23.4 % (37.0-47.0) L Mean Corpuscular Volume 93 FL (80-99) Mean Corpuscular Hemoglobin 29.0 PG (27.0-31.0) Mean Corpuscular Hemoglobin Concent 31.0 G/DL (32.0-36.0) L Red Cell Distribution Width 17.6 % (11.6-14.8) H Platelet Count 200 K/UL (150-450) Mean Platelet Volume 6.1 FL (6.5-10.1) L Neutrophils (%) (Auto) % (45.0-75.0) Lymphocytes (%) (Auto) % (20.0-45.0) Monocytes (%) (Auto) % (1.0-10.0) Eosinophils (%) (Auto) % (0.0-3.0) Basophils (%) (Auto) % (0.0-2.0) Differential Total Cells Counted 100 Neutrophils % (Manual) 71 % (45-75) Lymphocytes % (Manual) 17 % (20-45) L Monocytes % (Manual) 11 % (1-10) H Eosinophils % (Manual) 1 % (0-3) Basophils % (Manual) 0 % (0-2) Band Neutrophils 0 % (0-8) Nucleated Red Blood Cells 1 /100 WBC Platelet Estimate Adequate Platelet Morphology Normal Hypochromasia 3+ Anisocytosis 2+ Sodium Level 147 MMOL/L (136-145) H Potassium Level 4.7 MMOL/L (3.5-5.1) Chloride Level 113 MMOL/L (98-107) H Carbon Dioxide Level 26 MMOL/L (21-32) Anion Gap 8 mmol/L (5-15) Blood Urea Nitrogen 54 mg/dL (7-18) H Creatinine 1.5 MG/DL (0.55-1.30) H Estimat Glomerular Filtration Rate mL/min (>60) Glucose Level 241 MG/DL (74-106) H Calcium Level 8.9 MG/DL (8.5-10.1) Height (Feet): 5 Height (Inches): 3.00 Weight (Pounds): 227 General Appearance: WD/WN, no apparent distress, alert Cardiovascular: normal rate Respiratory/Chest: normal breath sounds, no respiratory distress Abdominal Exam: normal bowel sounds, non tender, soft Extremities: non-tender Aron Torres NP May 10, 2019 10:56
--- NOTE | 2019-05-10 11:03 | Surgery Progress Note ---
Surgery Progress Note Subjective Procedure Performed tracheostomy Additional Comments no acute events resting comfortable labs noted exam stable. Objective Last 24 Hour Vital Signs Date Time Temp Pulse Resp B/P (MAP) Pulse Ox O2 Delivery O2 Flow Rate FiO2 05/10/19 10:52 94 18 30 05/10/19 08:46 83 16 30 05/10/19 08:00 Mechanical Ventilator 05/10/19 08:00 30 05/10/19 08:00 99.4 92 18 156/83 (107) 98 05/10/19 07:54 95 05/10/19 07:11 97 17 30 05/10/19 04:52 98 17 30 05/10/19 04:00 Mechanical Ventilator 05/10/19 04:00 98.1 70 18 141/65 (90) 100 05/10/19 04:00 30 05/10/19 03:56 76 05/10/19 03:30 80 16 30 05/10/19 01:08 81 16 30 05/10/19 00:00 98.0 75 18 143/72 (95) 100 05/10/19 00:00 99 05/10/19 00:00 Mechanical Ventilator 05/10/19 00:00 30 05/09/19 23:34 81 16 30 05/09/19 21:25 80 16 30 05/09/19 20:23 82 16 30 05/09/19 20:00 30 05/09/19 20:00 87 05/09/19 20:00 Mechanical Ventilator 05/09/19 20:00 98.2 82 18 140/77 (98) 100 05/09/19 16:49 94 16 30 05/09/19 16:00 98.4 95 21 151/92 (111) 100 05/09/19 16:00 Mechanical Ventilator 05/09/19 16:00 30 05/09/19 15:27 92 05/09/19 15:02 92 15 30 05/09/19 13:01 94 16 30 05/09/19 12:00 30 05/09/19 12:00 99.0 93 16 147/92 (110) 97 05/09/19 12:00 Mechanical Ventilator 05/09/19 11:30 98 I&O Intake and Output 05/09/19 05/10/19 19:00 07:00 Intake Total 1320 ml 1560 ml Output Total 450 ml 450 ml Balance 870 ml 1110 ml Free Water 200 ml 300 ml IV Total 400 ml 600 ml Tube Feeding 720 ml 660 ml Output Urine Total 450 ml 450 ml # Bowel Movements 1 Dressing: dry Wound: clean Drains: other Cardiovascular: RSR Respiratory: clear, decreased breath sounds Abdomen: soft, present bowel sounds, non-distended Extremities: no tenderness, no cyanosis Laboratory Tests Test 05/10/19 03:20 White Blood Count 7.5 K/UL (4.8-10.8) Red Blood Count 2.51 M/UL (4.20-5.40) L Hemoglobin 7.3 G/DL (12.0-16.0) L Hematocrit 23.4 % (37.0-47.0) L Mean Corpuscular Volume 93 FL (80-99) Mean Corpuscular Hemoglobin 29.0 PG (27.0-31.0) Mean Corpuscular Hemoglobin Concent 31.0 G/DL (32.0-36.0) L Red Cell Distribution Width 17.6 % (11.6-14.8) H Platelet Count 200 K/UL (150-450) Mean Platelet Volume 6.1 FL (6.5-10.1) L Neutrophils (%) (Auto) % (45.0-75.0) Lymphocytes (%) (Auto) % (20.0-45.0) Monocytes (%) (Auto) % (1.0-10.0) Eosinophils (%) (Auto) % (0.0-3.0) Basophils (%) (Auto) % (0.0-2.0) Differential Total Cells Counted 100 Neutrophils % (Manual) 71 % (45-75) Lymphocytes % (Manual) 17 % (20-45) L Monocytes % (Manual) 11 % (1-10) H Eosinophils % (Manual) 1 % (0-3) Basophils % (Manual) 0 % (0-2) Band Neutrophils 0 % (0-8) Nucleated Red Blood Cells 1 /100 WBC Platelet Estimate Adequate Platelet Morphology Normal Hypochromasia 3+ Anisocytosis 2+ Sodium Level 147 MMOL/L (136-145) H Potassium Level 4.7 MMOL/L (3.5-5.1) Chloride Level 113 MMOL/L (98-107) H Carbon Dioxide Level 26 MMOL/L (21-32) Anion Gap 8 mmol/L (5-15) Blood Urea Nitrogen 54 mg/dL (7-18) H Creatinine 1.5 MG/DL (0.55-1.30) H Estimat Glomerular Filtration Rate mL/min (>60) Glucose Level 241 MG/DL (74-106) H Calcium Level 8.9 MG/DL (8.5-10.1) Plan Problems: (1) Respiratory distress Assessment & Plan: s/p trach stable wean vent as tolerated downgraded improving will follow with recs dressing prn (2) Malnutrition (3) UTI (urinary tract infection) (4) Diabetic nephropathy (5) Renal failure (ARF), acute on chronic (6) Anemia in chronic kidney disease (CKD) (7) Pulmonary hypertension (8) Acute respiratory failure (9) Respiratory failure (10) Hypernatremia (11) Sepsis Assessment & Plan: cont with current care trend labs will follow with recs (12) Pneumonia (13) History of CVA (cerebrovascular accident) (14) CAD (coronary artery disease) (15) Right hemiplegia Assessment & Plan: Sacral pressure injury resolved-dry peelingh skin without erythema noted. Incontinence associated dermatitis noted to medial aspects of both thighs,abd folds and perineum .Affected areas are erythematous and denuded. Moisture associated dermatitis noted to R and L axillae. erythema with denuded skin skin noted to affected areas. Both heels are dry ,firm and blanchable. Tx.Plan: Wash and pat dry R and L axillae,abd folds,perineum and medial aspects of both upper thighs. Apply Remedy Antifungal oint Twice Daily. Apply Moisture Barrier Paste to Sacrum . Cover with Optifoam drsg. Change every 3 days and prn. Apply Caviilon Skin Barrier to both heels. Cover each heel with Optifoam drsg. Change every 7 days and prn. APM/MARIA INES mattress. Reposition at least every 2houers or as tolerated. Off-load heels with pillow. 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
--- NOTE | 2019-05-10 11:04 | NUR ---
DISCHARGE PLANNED PATIENT WILL DC TO: [facility] [address] [facility] T [phone] FOR NURSE TO NURSE REPORT [facility] PLACED ON WILL CALL
[2019-05-10 12:00] VITALS: BP 155/88
--- NOTE | 2019-05-10 12:17 | Nephrology Progress Note ---
Assessment/Plan Problem List: (1) Renal failure (ARF), acute on chronic (2) Diabetic nephropathy (3) Sepsis (4) Pneumonia (5) Right hemiplegia (6) Anemia in chronic kidney disease (CKD) (7) Pulmonary hypertension Assessment intubated- Renal failure; - Pre Renal - ? Underlying Renal Anemia Pneumonia / respiratory failure Sepsis elevated Troponin UTI HyperGlycemia / DM Right Esvin HTN Plan trach 05/03 done kayexelate as needed consider transfusion as needed one liter D5W 05/09 discussed with RN transfuse for low Hgb as needed K Phos IV as needed venofer Folate 24 H urine protein check 2.4 gram Fraga Hydrate BP and BS control urine studies slow hydrate kidney MAIKEL results noted: No Peterson 2D echo Noted visualized except distal setum and inferiro wall hypokinesis Left ventricular ejection fraction estimated to be 55-60 %. avoid Nephrotoxics per orders Subjective ROS Limited/Unobtainable: Yes Objective Objective Last 24 Hour Vital Signs Date Time Temp Pulse Resp B/P (MAP) Pulse Ox O2 Delivery O2 Flow Rate FiO2 05/10/19 11:11 99.2 05/10/19 10:52 94 18 30 05/10/19 08:46 83 16 30 05/10/19 08:00 Mechanical Ventilator 05/10/19 08:00 30 05/10/19 08:00 99.4 92 18 156/83 (107) 98 05/10/19 07:54 95 05/10/19 07:11 97 17 30 05/10/19 04:52 98 17 30 05/10/19 04:00 Mechanical Ventilator 05/10/19 04:00 98.1 70 18 141/65 (90) 100 05/10/19 04:00 30 05/10/19 03:56 76 05/10/19 03:30 80 16 30 05/10/19 01:08 81 16 30 05/10/19 00:00 98.0 75 18 143/72 (95) 100 05/10/19 00:00 99 05/10/19 00:00 Mechanical Ventilator 05/10/19 00:00 30 05/09/19 23:34 81 16 30 05/09/19 21:25 80 16 30 05/09/19 20:23 82 16 30 05/09/19 20:00 30 05/09/19 20:00 87 05/09/19 20:00 Mechanical Ventilator 05/09/19 20:00 98.2 82 18 140/77 (98) 100 05/09/19 16:49 94 16 30 05/09/19 16:00 98.4 95 21 151/92 (111) 100 05/09/19 16:00 Mechanical Ventilator 05/09/19 16:00 30 05/09/19 15:27 92 05/09/19 15:02 92 15 30 05/09/19 13:01 94 16 30 Intake and Output 05/09/19 05/10/19 19:00 07:00 Intake Total 1320 ml 1560 ml Output Total 450 ml 450 ml Balance 870 ml 1110 ml Free Water 200 ml 300 ml IV Total 400 ml 600 ml Tube Feeding 720 ml 660 ml Output Urine Total 450 ml 450 ml # Bowel Movements 1 Laboratory Tests 05/10/19 03:20: White Blood Count 7.5, Red Blood Count 2.51L, Hemoglobin 7.3L, Hematocrit 23.4L , Mean Corpuscular Volume 93, Mean Corpuscular Hemoglobin 29.0, Mean Corpuscular Hemoglobin Concent 31.0L, Red Cell Distribution Width 17.6H, Platelet Count 200, Mean Platelet Volume 6.1L, Neutrophils (%) (Auto) , Lymphocytes (%) (Auto) , Monocytes (%) (Auto) , Eosinophils (%) (Auto) , Basophils (%) (Auto) , Differential Total Cells Counted 100, Neutrophils % ( Manual) 71, Lymphocytes % (Manual) 17L, Monocytes % (Manual) 11H, Eosinophils % (Manual) 1, Basophils % (Manual) 0, Band Neutrophils 0, Nucleated Red Blood Cells 1, Platelet Estimate Adequate, Platelet Morphology Normal, Hypochromasia 3 +, Anisocytosis 2+, Sodium Level 147H, Potassium Level 4.7, Chloride Level 113H , Carbon Dioxide Level 26, Anion Gap 8, Blood Urea Nitrogen 54H, Creatinine 1.5H , Estimat Glomerular Filtration Rate , Glucose Level 241H, Calcium Level 8.9 Height (Feet): 5 Height (Inches): 3.00 Weight (Pounds): 227 General Appearance: no apparent distress EENT: other - trach Cardiovascular: tachycardia Respiratory/Chest: decreased breath sounds Abdomen: distended Objective no change Wally Spivey MD May 10, 2019 12:17
--- NOTE | 2019-05-10 12:45 | NUR ---
NURSE NOTES: Blood bank called at 1245 (blood ready for pick-up) but told blood bank tech. pt. temperature still slightly elevated from 99.4 now 99.2 Will cont. to monitor.
--- NOTE | 2019-05-10 14:31 | NUR ---
NURSE NOTES: Checked pt. temperature 98.2
--- NOTE | 2019-05-10 15:30 | Progress Note ---
DATE: 05/10/2019 SUBJECTIVE: This is a 79-year-old female patient with sepsis. She has confusion, some disorganized thought process, racing thoughts, and pressured speech. That is why, she does require inpatient treatment at this time. MENTAL STATUS EXAMINATION: This is a 79-year-old female patient. Appearance is disheveled. Attitude, irritable and agitated. Affect, guarded and restricted. Insight and judgment is poor. DIAGNOSIS: Major depressive disorder, mild, recurrent, with psychotic features. PLAN: Continue her on the medications to prevent any further decline in cognition . The patient is treated with Namenda 5 mg twice a day to prevent any further decline in cognition. A 20 minutes of cognitive behavioral therapy to help her identify automatic negative thoughts and help convert those negative thoughts to more positive thoughts to reduce depression, anxiety, and mood lability. Chart reviewed. Discussed with staff. Seen and assessed in her room. Omar Glover M.D. DR: CATY JOB#: [id number] CC:
[2019-05-10 16:00] VITALS: BP 174/92
--- NOTE | 2019-05-10 16:30 | NUR ---
NURSE NOTES: Pt. receiving blood transfusion. No a/r noted. Afebrile. Will cont. to monitor.
--- NOTE | 2019-05-10 16:50 | NUR ---
NURSE NOTES: Called [facility] and spoke with Clari BURNETT at subacute and gave report. Informed Clari BURNETT that pt. is receiving 1unit PRBC.
--- NOTE | 2019-05-10 16:55 | NUR ---
NURSE NOTES: Pt. son Cezar Sage made aware of the discharge going to [facility] today.
--- NOTE | 2019-05-10 17:27 | Neurology Progress Note ---
Interim History Interim History ROS Limited/Unobtainable: Yes Complaints: AMS Events: Weaning attempts unsuccessful, PEG placed Interim History able to track, eyes open Objective Physical Exam Last Vital Signs Date Time Temp Pulse Resp B/P (MAP) Pulse Ox O2 Delivery O2 Flow Rate FiO2 05/10/19 17:14 97 17 30 05/10/19 16:00 Mechanical Ventilator 05/10/19 12:00 99.4 155/88 (110) 98 Laboratory Tests Test 05/10/19 03:20 White Blood Count 7.5 K/UL (4.8-10.8) Red Blood Count 2.51 M/UL (4.20-5.40) L Hemoglobin 7.3 G/DL (12.0-16.0) L Hematocrit 23.4 % (37.0-47.0) L Mean Corpuscular Volume 93 FL (80-99) Mean Corpuscular Hemoglobin 29.0 PG (27.0-31.0) Mean Corpuscular Hemoglobin Concent 31.0 G/DL (32.0-36.0) L Red Cell Distribution Width 17.6 % (11.6-14.8) H Platelet Count 200 K/UL (150-450) Mean Platelet Volume 6.1 FL (6.5-10.1) L Neutrophils (%) (Auto) % (45.0-75.0) Lymphocytes (%) (Auto) % (20.0-45.0) Monocytes (%) (Auto) % (1.0-10.0) Eosinophils (%) (Auto) % (0.0-3.0) Basophils (%) (Auto) % (0.0-2.0) Differential Total Cells Counted 100 Neutrophils % (Manual) 71 % (45-75) Lymphocytes % (Manual) 17 % (20-45) L Monocytes % (Manual) 11 % (1-10) H Eosinophils % (Manual) 1 % (0-3) Basophils % (Manual) 0 % (0-2) Band Neutrophils 0 % (0-8) Nucleated Red Blood Cells 1 /100 WBC Platelet Estimate Adequate Platelet Morphology Normal Hypochromasia 3+ Anisocytosis 2+ Sodium Level 147 MMOL/L (136-145) H Potassium Level 4.7 MMOL/L (3.5-5.1) Chloride Level 113 MMOL/L (98-107) H Carbon Dioxide Level 26 MMOL/L (21-32) Anion Gap 8 mmol/L (5-15) Blood Urea Nitrogen 54 mg/dL (7-18) H Creatinine 1.5 MG/DL (0.55-1.30) H Estimat Glomerular Filtration Rate mL/min (>60) Glucose Level 241 MG/DL (74-106) H Calcium Level 8.9 MG/DL (8.5-10.1) General: well developed, well nourished, no acute distress Head: normocophalic Neck: no rigidity EENT: benign Neurologic Exam Mental Status: awake, other Speech: other Language: other Cranial Nerve II: fundus normal, visual cruz, no papilledema, other Cranial Nerves III, IV, : PERRLA, EOMI, other Cranial Nerve V: other Cranial Nerve VII: other Cranial Nerve VIII: other Cranial Nerve IX: other Cranial Nerve XI: other Cranial Nerve XII: other Motor System: other Sensory: other Coordination: other Gait: other Objective Not following commands Moving all 4 ext spontaneously CN intact Impression/Recommendations Problems: (1) Respiratory distress (2) Malnutrition (3) UTI (urinary tract infection) (4) Diabetic nephropathy (5) Renal failure (ARF), acute on chronic (6) Anemia in chronic kidney disease (CKD) (7) Pulmonary hypertension (8) Acute respiratory failure (9) Respiratory failure (10) Hypernatremia (11) Sepsis (12) Pneumonia (13) History of CVA (cerebrovascular accident) (14) CAD (coronary artery disease) (15) Right hemiplegia (16) Diabetes mellitus (17) Hypertensive heart disease (18) 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 (19) Nosocomial pneumonia (20) At high risk for aspiration (21) Acute metabolic encephalopathy Status: stable Recommendations Cont current management map > 65 neuro exam non focal - monitor sp trach sp PEG dispo pending Geo Espitia MD May 10, 2019 17:27
--- NOTE | 2019-05-10 18:03 | Infectious Diseases Prog Note ---
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 PNA, sp Rx Pulmonary edema -04/26 CXR: Suspect slightly increased interstitial and airspace edema, over 2 days.Possibly improving small right pleural effusion -04/19 CXR: There is less pulmonary edema compared to yesterday but with moderate residual edema. -04/16 CXR: . Right perihilar and bilateral lower lobe pulmonary consolidation concerning for pneumonia.Small bilateral pleural effusions. CXR - B/L Infiltrates Low grade fevers; recurrent WBCs up to 25; recurrent-- resolved -05/03 u/a neg Cdiff neg Bcx NTD sp cx normal resp nohelia (prelim) -04/24 Cdiff eng 04/16 Sp Cx - C. alb; 04/19 spC. albicans (colonizer) -BCx NTD -legionella ag urine neg Widened mediastinum - right sided aortic arch CXR - Apparent upper mediastinal widening. Possibly due to ectatic vasculature and body habitus, but upper mediastinal mass also possible. Correlate with any prior adiographs and may be available, consider CT for further evaluation if clinically indicated CT 04/13/19 - Right-sided aortic arch, presumably accounting for the apparent upper mediastinal widening demonstrated on recent plain radiograph. No evidence of upper mediastinal mass. Extensive bilateral lower lobe consolidation , likely pneumonia, less extensive left upper lobe consolidation. 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 CKD CAD PLAN Continue to monitor off abx -low threshold to resume abx -04/28 SP Cefepime #6 -04/22 SP Meropenem #5 -04/20 SP Vancomycin #8 - 04/18/19 S/P Cefepime #6 - f/u cultures - Monitor CBC and Temps -f/u cx Thank you for this consult. We will continue to follow the patient during this hospitalization. Subjective Allergies: Coded Allergies: No Known Allergies (Unverified , 04/12/19) Subjective afebrile >48hrs Bx Neg Objective Vital Signs Last 24 Hour Vital Signs Date Time Temp Pulse Resp B/P (MAP) Pulse Ox O2 Delivery O2 Flow Rate FiO2 05/10/19 17:14 97 17 30 05/10/19 16:00 Mechanical Ventilator 05/10/19 16:00 98.5 92 18 174/92 (119) 98 05/10/19 16:00 30 05/10/19 15:30 91 05/10/19 15:07 99 19 30 05/10/19 13:25 99 17 30 05/10/19 12:00 99.4 103 18 155/88 (110) 98 05/10/19 12:00 Mechanical Ventilator 05/10/19 12:00 30 05/10/19 11:45 92 05/10/19 11:11 99.2 05/10/19 10:52 94 18 30 05/10/19 08:46 83 16 30 05/10/19 08:00 Mechanical Ventilator 05/10/19 08:00 30 05/10/19 08:00 99.4 92 18 156/83 (107) 98 05/10/19 07:54 95 05/10/19 07:11 97 17 30 05/10/19 04:52 98 17 30 05/10/19 04:00 Mechanical Ventilator 05/10/19 04:00 98.1 70 18 141/65 (90) 100 05/10/19 04:00 30 05/10/19 03:56 76 05/10/19 03:30 80 16 30 05/10/19 01:08 81 16 30 05/10/19 00:00 98.0 75 18 143/72 (95) 100 05/10/19 00:00 99 05/10/19 00:00 Mechanical Ventilator 05/10/19 00:00 30 05/09/19 23:34 81 16 30 05/09/19 21:25 80 16 30 05/09/19 20:23 82 16 30 05/09/19 20:00 30 05/09/19 20:00 87 05/09/19 20:00 Mechanical Ventilator 05/09/19 20:00 98.2 82 18 140/77 (98) 100 Height (Feet): 5 Height (Inches): 3.00 Weight (Pounds): 227 Objective Gen: Awake and talking HEENT: NCAT, MMM, EOMI LUNGS: CTAB, No W CARDS: RRR, S1, S2, No M/R/G, ABD: Soft, NT, ND Laboratory Tests Test 7/15/19 03:20 White Blood Count 7.5 K/UL (4.8-10.8) Red Blood Count 2.51 M/UL (4.20-5.40) L Hemoglobin 7.3 G/DL (12.0-16.0) L Hematocrit 23.4 % (37.0-47.0) L Mean Corpuscular Volume 93 FL (80-99) Mean Corpuscular Hemoglobin 29.0 PG (27.0-31.0) Mean Corpuscular Hemoglobin Concent 31.0 G/DL (32.0-36.0) L Red Cell Distribution Width 17.6 % (11.6-14.8) H Platelet Count 200 K/UL (150-450) Mean Platelet Volume 6.1 FL (6.5-10.1) L Neutrophils (%) (Auto) % (45.0-75.0) Lymphocytes (%) (Auto) % (20.0-45.0) Monocytes (%) (Auto) % (1.0-10.0) Eosinophils (%) (Auto) % (0.0-3.0) Basophils (%) (Auto) % (0.0-2.0) Differential Total Cells Counted 100 Neutrophils % (Manual) 71 % (45-75) Lymphocytes % (Manual) 17 % (20-45) L Monocytes % (Manual) 11 % (1-10) H Eosinophils % (Manual) 1 % (0-3) Basophils % (Manual) 0 % (0-2) Band Neutrophils 0 % (0-8) Nucleated Red Blood Cells 1 /100 WBC Platelet Estimate Adequate Platelet Morphology Normal Hypochromasia 3+ Anisocytosis 2+ Sodium Level 147 MMOL/L (136-145) H Potassium Level 4.7 MMOL/L (3.5-5.1) Chloride Level 113 MMOL/L (98-107) H Carbon Dioxide Level 26 MMOL/L (21-32) Anion Gap 8 mmol/L (5-15) Blood Urea Nitrogen 54 mg/dL (7-18) H Creatinine 1.5 MG/DL (0.55-1.30) H Estimat Glomerular Filtration Rate mL/min (>60) Glucose Level 241 MG/DL (74-106) H Calcium Level 8.9 MG/DL (8.5-10.1) Current Medications Medications (Trade) Dose Ordered Sig/Kenisha Route PRN Reason Start Time Stop Time Status Last Admin Dose Admin Acetaminophen (Tylenol) 650 mg Q4H PRN GT FEVER 05/04/19 17:45 06/03/19 17:32 05/10/19 10:41 Acetaminophen (Tylenol) 650 mg Q4H PRN RECTAL Fever 05/04/19 17:32 06/03/19 17:31 Chlorhexidine Gluconate (Izzy-Hex 2%) 1 applic DAILY@2000 TOPIC 05/04/19 20:00 05/20/19 19:59 05/09/19 21:09 Dextrose (Dextrose 50%) 25 ml Q30M PRN IV Hypoglycemia 05/04/19 17:45 05/12/19 19:44 Dextrose (Dextrose 50%) 50 ml Q30M PRN IV Hypoglycemia 05/04/19 17:45 05/12/19 19:44 Epoetin Bandar (Epoetin Bandar-EPBX(NON ESRD)) 10,000 unit FRI-FRI-FRI SUBQ 05/05/19 21:00 05/28/19 20:59 05/07/19 20:40 Folic Acid (Folate) 1 mg DAILY GT 05/05/19 09:00 05/19/19 08:59 05/10/19 09:30 Hydralazine HCl (Apresoline) 10 mg Q2H PRN IV SBP > 170 mmHg 05/04/19 18:05 06/03/19 18:04 Insulin Aspart (NovoLOG) Q6HR SUBQ 05/05/19 00:00 06/04/19 00:00 05/10/19 13:03 Lansoprazole (Prevacid) 30 mg DAILY GT 05/05/19 09:00 05/22/19 08:59 05/10/19 09:30 Midodrine (Pro-Amatine) 10 mg Q8H PRN GT bp below 100 syst 05/04/19 17:33 06/03/19 17:32 Ondansetron HCl (Zofran) 4 mg Q6H PRN IVP Nausea & Vomiting 05/04/19 17:34 06/03/19 17:33 Polyethylene Glycol (Miralax) 17 gm DAILYPRN PRN GT Constipation 05/04/19 17:34 06/03/19 17:33 Sodium Chloride 1,000 ml @ 10 mls/hr Q24H IV 05/10/19 11:24 06/09/19 11:23 Cora Baer M.D. May 10, 2019 18:03
--- NOTE | 2019-05-10 18:11 | Cardiac Electrophysiology PN ---
Assessment/Plan Assessment/Plan 1. Atrial flutter, self terminated. In SR. 2. Hypotension. Resolved. 3. Coronary artery disease. On Plavix 75 mg daily 4. Respiratory failure EF 60%. S/P Tracheostomy 05/03/19 on the vent 5. Sepsis with White count 25,000. Resolved. WBC 7.5 6. Anemia.S/P PRBC. 7. Renal failure BUN/Cr improved with hydration by Dr. Spivey 8. Dysphagia. S/P PEG 04/22/19 9. History of CVA with hemiplegia. 10. Nonverbal status. 11. Full code 12. Mild fever. Resolved with Tylenol. Off Abx 13. Hypernatremia on D5W per Dr Spivey 14. Anemia getting PRBC today DW RN Subjective Subjective S/P Tracheostomy 05/03/19. In SR on the Vent. Getting PRBC. DC planning today to [facility] Objective Last 24 Hour Vital Signs Date Time Temp Pulse Resp B/P (MAP) Pulse Ox O2 Delivery O2 Flow Rate FiO2 05/10/19 17:14 97 17 30 05/10/19 16:00 Mechanical Ventilator 05/10/19 16:00 98.5 92 18 174/92 (119) 98 05/10/19 16:00 30 05/10/19 15:30 91 05/10/19 15:07 99 19 30 05/10/19 13:25 99 17 30 05/10/19 12:00 99.4 103 18 155/88 (110) 98 05/10/19 12:00 Mechanical Ventilator 05/10/19 12:00 30 05/10/19 11:45 92 05/10/19 11:11 99.2 05/10/19 10:52 94 18 30 05/10/19 08:46 83 16 30 05/10/19 08:00 Mechanical Ventilator 05/10/19 08:00 30 05/10/19 08:00 99.4 92 18 156/83 (107) 98 05/10/19 07:54 95 05/10/19 07:11 97 17 30 05/10/19 04:52 98 17 30 05/10/19 04:00 Mechanical Ventilator 05/10/19 04:00 98.1 70 18 141/65 (90) 100 05/10/19 04:00 30 05/10/19 03:56 76 05/10/19 03:30 80 16 30 05/10/19 01:08 81 16 30 05/10/19 00:00 98.0 75 18 143/72 (95) 100 05/10/19 00:00 99 05/10/19 00:00 Mechanical Ventilator 05/10/19 00:00 30 05/09/19 23:34 81 16 30 05/09/19 21:25 80 16 30 05/09/19 20:23 82 16 30 05/09/19 20:00 30 05/09/19 20:00 87 05/09/19 20:00 Mechanical Ventilator 05/09/19 20:00 98.2 82 18 140/77 (98) 100 Intake and Output 05/09/19 05/10/19 18:59 06:59 Intake Total 1220 ml 1720 ml Output Total 450 ml 450 ml Balance 770 ml 1270 ml Free Water 200 ml 300 ml IV Total 300 ml 700 ml Tube Feeding 720 ml 720 ml Output Urine Total 450 ml 450 ml # Bowel Movements 1 Laboratory Tests Test 05/10/19 03:20 White Blood Count 7.5 K/UL (4.8-10.8) Red Blood Count 2.51 M/UL (4.20-5.40) L Hemoglobin 7.3 G/DL (12.0-16.0) L Hematocrit 23.4 % (37.0-47.0) L Mean Corpuscular Volume 93 FL (80-99) Mean Corpuscular Hemoglobin 29.0 PG (27.0-31.0) Mean Corpuscular Hemoglobin Concent 31.0 G/DL (32.0-36.0) L Red Cell Distribution Width 17.6 % (11.6-14.8) H Platelet Count 200 K/UL (150-450) Mean Platelet Volume 6.1 FL (6.5-10.1) L Neutrophils (%) (Auto) % (45.0-75.0) Lymphocytes (%) (Auto) % (20.0-45.0) Monocytes (%) (Auto) % (1.0-10.0) Eosinophils (%) (Auto) % (0.0-3.0) Basophils (%) (Auto) % (0.0-2.0) Differential Total Cells Counted 100 Neutrophils % (Manual) 71 % (45-75) Lymphocytes % (Manual) 17 % (20-45) L Monocytes % (Manual) 11 % (1-10) H Eosinophils % (Manual) 1 % (0-3) Basophils % (Manual) 0 % (0-2) Band Neutrophils 0 % (0-8) Nucleated Red Blood Cells 1 /100 WBC Platelet Estimate Adequate Platelet Morphology Normal Hypochromasia 3+ Anisocytosis 2+ Sodium Level 147 MMOL/L (136-145) H Potassium Level 4.7 MMOL/L (3.5-5.1) Chloride Level 113 MMOL/L (98-107) H Carbon Dioxide Level 26 MMOL/L (21-32) Anion Gap 8 mmol/L (5-15) Blood Urea Nitrogen 54 mg/dL (7-18) H Creatinine 1.5 MG/DL (0.55-1.30) H Estimat Glomerular Filtration Rate mL/min (>60) Glucose Level 241 MG/DL (74-106) H Calcium Level 8.9 MG/DL (8.5-10.1) Objective HEAD AND NECK: No JVD. S/P tracheostomy LUNGS: Coarse rhonchi bilaterally. CARDIOVASCULAR: Regular S1 and S2 with no gallop. ABDOMEN: Soft.PEG in place EXTREMITIES: No pitting edema. Claude Pena MD May 10, 2019 18:11
--- NOTE | 2019-05-10 18:52 | NUR ---
RESPIRATORY NOTE: Received pt on AC 16, 500VT, 30%, PEEP +5. Pt is trach-dependent w/ a cuffed, Shiley 8 tube. Pt flat effect. B/S enmanuel. rhonchi, sxn small to moderate amounts of thick, marin-brown secretions w/ occasional blood. Vent plugged into red outlet, ambubag at bedside. Pt in no apparent distress at this time. Will continue plan of care.
--- NOTE | 2019-05-10 19:20 | NUR ---
NURSE NOTES: S/P 1PRBC transfusion. No a/r noted.
--- NOTE | 2019-05-10 19:30 | NUR ---
HAND-OFF: Report given to Anne BURNETT. Pt. remain stable.
--- NOTE | 2019-05-10 19:31 | NUR ---
NURSE NOTES: Received bedside report from HORTENCIA Garcia.Patient is stable,open eyes,obtunded,trach Shiley 8 AC 16 TV 500 FiO2 30% PEEP 5 tolerated well,no s/s of pain,no respiratory distress noted,GT in place no residual at this moment,BS active in all quadrants,blood transfusion is done,no adverse reaction,bed in a low safety position,call light within a reach,will continue to follow POC.Pt is ready to go to [facility].Report given to facility by previous nurse
--- NOTE | 2019-05-10 19:45 | NUR ---
NURSE NOTES: Received order from to remove Central line
[2019-05-10 20:00] VITALS: BP 143/78
--- NOTE | 2019-05-10 20:07 | NUR ---
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
[2019-05-10] MEDS: Epoetin Alfa-EPBX (NON ESRD)10,000 unit/ml vial SUBQ SCH (21:00)
--- NOTE | 2019-05-10 21:40 | NUR ---
NURSE NOTES: Report given to [facility],pt stable for transportation,no s/s of pain,no respiratory distress noted,V/S WNL.
[2019-05-10] MEDS ORDERED: Tubing Blood Filter IV ONE (22:02)
[2019-05-10] MEDS ORDERED: NS 275ml ONE (22:02)
--- NOTE | 2019-05-11 12:19 | Discharge Summary ---
Discharge Summary Discharge Summary _ DATE OF ADMISSION: 04/12/2019 DATE OF DISCHARGE: 05/10/2019 DISCHARGED BY: Dr. Keating REASON FOR ADMISSION: 89 years old female, resident of senior living facility, with past medical history of diabetes mellitus, hypertension, CVA, with residual hemiplegia, chronic kidney disease, coronary artery disease, HTN, was sent for evaluation due to fever and congestion. Upon evaluation vital signs revealed tachycardia. Laboratory work-up revealed significant leukocytosis with WBC 25.4, hemoglobin 9.1, hematocrit 20.5, platelets 232. Sodium 158, chloride 120 BUN 76, creatinine 2.3. Glucose 189. Lactic acid 2.0. Stable LFT. Troponin elevated 0.156. EKG revealed sinus tachycardia with incomplete right bundle branch block , short NE interval , left anteriofascicular block , prolonged QT interval and left ventricular hypertrophy. Albumin 1.1. Urinalysis revealed +4 protein, minimal pyuria, and few bacteria. Chest x-ray revealed bilateral basilar infiltrates, likely pneumonia. In emergency department patient pancultured, started on IV fluids and empiric antibiotics. Physical exam revealed dyspnea and accessory muscle use. Given increased work of breathing , patient's age and chronic illnesses, patient was started on BiPAP to reduce the work of breathing. Patient responded well to BiPAP. Patient admitted to ICU for further management. CONSULTANTS: social work administrator Dr. Rojo neurologist Dr. Espitia pulmonary Dr. Springer ID specialist Dr. Haque GI specialist Dr. Gentile digital field service technician Dr. Spivey commuter pilot/oncologist Dr. Norton surgery Dr. Marin psychiatrist Dr. Glover HOSPITAL COURSE: Patient admitted to ICU . Patient started on aggressive IV fluids and broad-spectrum antibiotics. Supplemental oxygen initially provided through the BiPAP , settings titrated to keep pulse oximetry above 92%. Pulmonary toilet provided. Patient started on broad-spectrum antibiotic as per ID specialist recommendation. Renal parameters and electrolytes were closely monitored. Electrolytes corrected as needed. Renal ultrasound revealed no evidence of hydronephrosis. Normal bilateral kidney echogenicity. Venous duplex bilateral lower extremity revealed no evidence of acute DVT. CT of the chest demonstrated right-sided aortic arch, presumably accounting for the apparent upper mediastinal widening, demonstrated on recent chest x-ray. No evidence of upper mediastinal mass. Extensive bilateral lower lobe consolidation, likely pneumonia, less extensive left upper lobe consolidation. Bilateral pleural effusion. Marked cardiomegaly. Dilated pulmonary artery, likely indicated pulmonary artery hypertension. ID specialist followed. Blood culture were negative. Sputum culture revealed Sugar. Antibiotic regimen was provided as per ID specialist recommendation. Patient was followed-up with chest x-ray. Echocardiogram revealed preserved ejection fraction 55 to 60% ; distal septum and inferior wall hypokinesis noted. Moderate left ventricular hypertrophy. Severe aortic stenosis noted. Peak aortic valve gradient of 83 and mean of 49 , consistent with severe aortic stenosis. Moderate to severe mitral stenosis. Right ventricular systolic pressure of 53 consistent with a moderate pulmonary hypertension. Bedside swallow evaluation was done on 04/13 and revealed evidence of dysphagia and high risk for silent aspiration due to recurrent pneumonia and history of CVA. Recommended video swallow evaluation. Patient subsequently undergone video swallow evaluation on 04/14, which was positive for penetration of nectar thick liquid barium. Patient was recommended nonoral feeding. Follow-up chest x-ray still revealed persistent pneumonia. Leukocytosis was trending down, but still was present , and patient continued to have intermittent fevers. On 04/20 patient required oral intubation by emergency room physician due to respiratory failure. Chest x-ray confirmed good placement of endotracheal tube. Patient was followed-up with ABG and chest x-ray. Ventilator support and pulmonary toilet provided. Ventilator settings titrated based on ABG. Patient subsequently undergone EGD and PEG placement on 04/22. Tube feeding provided with strict aspiration precautions. Tube feeding formula and protein supplements provided as per tree faller recommendation to meet nutritional goals. Pathology of gastric antrum was consistent with moderate chronic gastritis, no H. pylori was identified. GI prophylaxis with PPI provided. Bowel regimen instituted. Patient was failing weaning trials , therefore requiring prolonged ventilator support. Surgery consult was requested for placement of tracheostomy. Patient subsequently undergone tracheostomy placement on 05/03. Tracheostomy care provided ,ventilator support provided. Pulmonary toilet continued. Patient was followed-up with ABG. Ventilator settings further titrated based on ABG results. Strip Mill Operator followed. Patient noted to have atrial flutter , which was self terminated. Patient was off AV aleena jose , secondary to hypotension. Patient was continued on midodrine. Hemodynamic status was closely monitored to keep mean arterial blood pressure above 65. Hypotension resolved. Troponin levels were minimally elevated and flat . Per social work administrator minimal elevation of troponin was due to troponin leak secondary to renal failure. Antiplatelet therapy with Plavix continued. Lipid panel was stable. Renal parameters and electrolytes were closely monitored. Pulpit Operator follow. Creatinine was trending down. Electrolytes further corrected as needed, and nephrotoxins were avoided. Prior to discharge BUN from 76 down to 54 and creatinine from 2.3 down to 1.5. Per digital field service technician, patient had acute / prerenal kidney injury on chronic kidney disease due to diabetic nephropathy. Pulpit Operator recommended to avoid nephrotoxic. 24 hours urine total protein 2.4 gm. Neurologist followed. Physical exam was nonfocal. Supportive care provided. Hemoglobin and hematocrit were closely monitored with goal to keep hemoglobin above 7. Anemia work-up was consistent with anemia of chronic disease due to underlying chronic medical issues, multifactorial. Anemia work-up also revealed low folate level. Patient started on folic acid supplements. Stool for occult blood was positive. No evidence of hemolysis. Patient undergone transfusion total of 6 units of packed red blood cells while in the hospital. Patient was started on Epogen 3 times a week. Prior to discharge hemoglobin 7.3 hematocrit 23.4 Patient was continued on antibiotics. Repeated blood culture were negative. Stool for C. difficile was negative . Repeated sputum culture repeated was negative. Repeated stool for C. difficile was negative as well. Repeated blood culture on 05/03 were negative. Leukocytosis and fever both resolved. ID specialist recommended to keep patient off antibiotics . Patient completed treatment for pneumonia. Psychiatrist followed. Per psychiatrist, patient had major depressive disorder , mild, recurrent, with psychotic features. Psychiatric medication regimen was optimized as per psychiatrist. Cognitive behavioral therapy provided. Wound care for present on admission moisture associated dermatitis provided as per surgeon recommendation. Continue wound care at the facility. Supportive care provided. Placement was challenging. Finally placement was found at [facility]. Patient was stable for transfer. FINAL DIAGNOSES: Sepsis, probably due to PNA Pneumonia, status post treatment Acute respiratory failure , requiring intubation Failure to wean Status post tracheostomy placement Acute metabolic encephalopathy Acute kidney injury on chronic kidney disease due to diabetic nephropathy Elevated troponin, likely troponin leak secondary to renal failure Hypotension with history of hypertensive heart disease Diabetes mellitus with diabetic nephropathy Coronary artery disease Atrial flutter, self terminated Severe aortic stenosis Moderate to severe mitral stenosis Moderate pulmonary hypertension Dysphagia, status post PEG 627 Anemia of chronic disease Malnutrition Aspiration risk History of CVA with right hemiplegia Hypernatremia Folate deficiency Major depressive disorder, mild, recurrent, with psychotic features DISCHARGE MEDICATIONS: See Medication Reconciliation list. DISCHARGE INSTRUCTIONS: Patient was discharged to [facility] as prison. Follow up with medical doctor at the facility. Stacy Dsouza NP May 11, 2019 12:19
--- NOTE | 2019-05-12 13:48 | NUR ---
INSURANCE DISCHARGE SUMMARY [facility] BE[facility] T: [phone] F:[phone]
== END 2019-05-10 22:03 | DRG 5 ==
LOC: EDBD 10:44 → EMR 11:15 → EDBEDREQ 12:02 → EDBEDREQSVC 12:19 → 2W 12:40 → EDBEDREQ 16:58 → 2E 04-16 22:36 → ICU 04-17 10:40 → 2W 05-04 18:05
PROC: 5A1955Z Respiratory Ventilation, Greater than 96 Consecutive Hours (ICD-10-PCS; principal; 2019-04-20)
PROC: 0BH17EZ Insertion of Endotracheal Airway into Trachea, Via Natural or Artificial Opening (ICD-10-PCS; 2019-04-20)
PROC: 02HV33Z Insertion of Infusion Device into Superior Vena Cava, Percutaneous Approach (ICD-10-PCS; 2019-04-20)
PROC: B548ZZA Ultrasonography of Superior Vena Cava, Guidance (ICD-10-PCS; 2019-04-20)
PROC: 0DH63UZ Insertion of Feeding Device into Stomach, Percutaneous Approach (ICD-10-PCS; 2019-04-22)
PROC: 0DB78ZX Excision of Stomach, Pylorus, Via Natural or Artificial Opening Endoscopic, Diagnostic (ICD-10-PCS; 2019-04-22)
PROC: 0B110F4 Bypass Trachea to Cutaneous with Tracheostomy Device, Open Approach (ICD-10-PCS; 2019-05-03)
DX: A41.9 Sepsis, unspecified organism (principal); J18.9 Pneumonia, unspecified organism; G93.41 Metabolic encephalopathy; E46 Unspecified protein-calorie malnutrition; F33.3 Major depressive disorder, recurrent, severe with psychotic symptoms; E11.22 Type 2 diabetes mellitus with diabetic chronic kidney disease; E11.65 Type 2 diabetes mellitus with hyperglycemia; E11.40 Type 2 diabetes mellitus with diabetic neuropathy, unspecified; E87.0 Hyperosmolality and hypernatremia; N18.4 Chronic kidney disease, stage 4 (severe); N17.9 Acute kidney failure, unspecified; I69.951 Hemiplegia and hemiparesis following unspecified cerebrovascular disease affecting right dominant side; N39.0 Urinary tract infection, site not specified; I13.10 Hypertensive heart and chronic kidney disease without heart failure, with stage 1 through stage 4 chronic kidney disease, or unspecified chronic kidney disease; D64.9 Anemia, unspecified; J44.0 Chronic obstructive pulmonary disease with (acute) lower respiratory infection; I25.10 Atherosclerotic heart disease of native coronary artery without angina pectoris; E86.0 Dehydration; R91.8 Other nonspecific abnormal finding of lung field; R13.10 Dysphagia, unspecified; I27.20 Pulmonary hypertension, unspecified; I48.92 Unspecified atrial flutter; J96.00 Acute respiratory failure, unspecified whether with hypoxia or hypercapnia; I95.9 Hypotension, unspecified; K26.9 Duodenal ulcer, unspecified as acute or chronic, without hemorrhage or perforation; K29.50 Unspecified chronic gastritis without bleeding; I35.0 Nonrheumatic aortic (valve) stenosis; I34.2 Nonrheumatic mitral (valve) stenosis; Z99.11 Dependence on respirator [ventilator] status
CPT/HCPCS: 36415; 36569; 36600; 71045; 71250; 74018; 74230; 76770; 76937; 80048; 80053; 80061; 80076; 80202; 81001; 81003; 81050; 82043; 82140; 82164; 82270; 82378; 82550; 82553; 82607; 82728; 82746; 82803; 82962; 82977; 83036; 83540; 83550; 83605; 83615; 83735; 83880; 83935; 84100; 84132; 84156; 84300; 84443; 84484; 84550; 85007; 85025; 85044; 85060; 85610; 85651; 85730; 86140; 86710; 86850; 86900; 86901; 86920; 87040; 87070; 87081; 87205; 87324; 89050; 93005; 93306; 93970; 94002; 94003; 94150; 94640; 94660; 94664; 96365; 97803; 99291; J1815; J7620

== ENCOUNTER 2019-05-17 15:10 | Inpatient (IN) | payer MEDICARE, OTHER ==
[~2019-05-17] VITALS: Ht 165.1 cm; Wt 95.7 kg
[~2019-05-17 15:10] MED LIST: ACETAMINOPHEN325 M1 ORAL; CRANBERRY400 MG PO; DOCUSIL100 M1 ORAL; DULCOLAX10 MG RC; FLEET ENEMA133 ML RECTAL; FUROSEMIDE40 MG ORAL; HYDRALAZINE HCL10 MG ORAL; LANTUS SOL100 UNIT/1 SUBQ; METOPROLOL TART50 MG ORAL; MILK OF MA400 MG/51 ORAL; MULTIVITAMINS1 EAC2 ORAL; PLAVIX75 MG ORAL
--- NOTE | 2019-05-17 15:10 | NUR ---
ED Nurse Note: PT ACOSTA(APA [id number]) FROM [facility] C/C ABNORMAL LAB. HGB=7.3, BUN=73, HCT= 25.1. NOTED PT TRACH, GTUBE, EDEMA ON BUE, VSS, NSR ON GRAIN WEIGHER, SAFETY PRECAUTIONS IN PLACE, WILL CONT MONITOR.
[2019-05-17 15:34] VITALS: BP 168/78
--- NOTE | 2019-05-17 15:45 | NUR ---
ED Nurse Note: CALLED LAB FOR BLOOD DRAW.
[2019-05-17 16:33] LABS: BASOPHILS % (AUTO) 0.9 % (0.0-2.0); EOSINOPHILS % (AUTO) 4.8 % (0.0-3.0); HEMATOCRIT 27.6 % (37.0-47.0); HEMOGLOBIN 8.5 G/DL (12.0-16.0); LYMPHOCYTES % (AUTO) 16.7 % (20.0-45.0); MEAN CORPUSCULAR VOLUME 94 FL (80-99); MONOCYTES % (AUTO) 2.9 % (1.0-10.0); NEUTROPHILS % (AUTO) 74.9 % (45.0-75.0); PLATELET COUNT 217 K/UL (150-450); RED BLOOD COUNT 2.93 M/UL (4.20-5.40); WHITE BLOOD COUNT 8.8 K/UL (4.8-10.8)
[2019-05-17 16:35] VITALS: BP 161/81
[2019-05-17 16:37] LABS: INR 1.4 (0.9-1.1)
[2019-05-17 16:44] LABS: ANION GAP 11 mmol/L (5-15); BLOOD UREA NITROGEN 72 mg/dL (7-18); CALCIUM 8.6 MG/DL (8.5-10.1); CARBON DIOXIDE 24 MMOL/L (21-32); CHLORIDE 111 MMOL/L (98-107); CREATININE 1.5 MG/DL (0.55-1.30); POTASSIUM 4.3 MMOL/L (3.5-5.1); SODIUM 146 MMOL/L (136-145)
--- NOTE | 2019-05-17 16:45 | NUR ---
ED Nurse Note: PT CLEANED AND CHANGED, NOTED SKIN BREAKDOWN ON SACRAL-RECTUM AREA. PICTURE TAKEN.
[2019-05-17 16:49] LABS: ALANINE AMINOTRANSFERASE 12 U/L (12-78); ALBUMIN 1.5 G/DL (3.4-5.0); ALBUMIN/GLOBULIN RATIO 0.3 (1.0-2.7); ALKALINE PHOSPHATASE 154 U/L (46-116); ASPARTATE AMINO TRANSFERASE 31 U/L (15-37); BILIRUBIN,TOTAL 0.4 MG/DL (0.2-1.0)
--- NOTE | 2019-05-17 17:18 | Emergency Room Report ---
History of Present Illness General Chief Complaint: Abnormal Labs Source: Medical Record Present Illness HPI 79-year-old female presents ED for evaluation. Coming from assisted facility for evaluation of abnormal labs. Recent labs show elevated BUN/ creatinine, low hemoglobin. Patient is nonverbal at baseline. Unable to provide any additional history at this time. No signs of distress upon arrival. Trach/vent. No reported fevers or chills. No other aggravating relieving factors. No other associated symptoms Allergies: Coded Allergies: No Known Allergies (Unverified , 04/12/19) Patient History Past Medical History: DM, HTN Past Surgical History: other - trach Pertinent Family History: none Social History: Denies: smoking, alcohol use, drug use Now: No Immunizations: UTD Reviewed Nursing Documentation: PMH: Agreed; PSxH: Agreed Nursing Documentation-PMH Hx Hypertension: Yes Hx Diabetes: Yes - DM II Hx Cancer: No Review of Systems All Other Systems: negative except mentioned in HPI Physical Exam Vital Signs Date Time Temp Pulse Resp B/P (MAP) Pulse Ox O2 Delivery O2 Flow Rate FiO2 05/17/19 15:04 97.3 68 18 125/78 (94) 96 Trach Collar 05/17/19 15:37 45 Sp02 EP Interpretation: reviewed, normal General Appearance: no apparent distress, GCS 15, non-toxic, other - nonverbal Head: normocephalic Eyes: bilateral eye normal inspection, bilateral eye PERRL ENT: normal ENT inspection Neck: normal inspection, tracheotomy Respiratory: chest non-tender, lungs clear, normal breath sounds, speaking full sentences Cardiovascular #1: regular rate, rhythm, no edema Gastrointestinal: normal inspection Rectal: deferred Genitourinary: no CVA tenderness Musculoskeletal: normal inspection Neurologic: other - nonverbal Psychiatric: other - nonverbal Skin: other - see nursing notes for skin Lymphatic: normal inspection Medical Decision Making Diagnostic Impression: Primary Impression: Renal failure (ARF), acute on chronic Qualified Codes: N17.9 - Acute kidney failure, unspecified; N18.9 - Chronic kidney disease, unspecified Additional Impression: Anemia in chronic kidney disease (CKD) Qualified Codes: N18.9 - Chronic kidney disease, unspecified; D63.1 - Anemia in chronic kidney disease ER Course Hospital Course 79 yo F presents for abnormal hb, abnormal bun/cr Differential diagnoses include: anemia requiring transfusion, microcytic anemia , macrocytic anemia, heavy blood loss Clinical course Patient placed on stretcher. After initial history and physical I ordered labs including CBC and type and screen. Labs- hb 8.5, BUN/Cr 72/1.5 EKG - NSR, twave inversions in lateral leads IVFs given. patient will be admitted to Dr Keating's service. Diagnosis - renal failure, anemia in CKD Admitted to SDU in serious condition Labs Test 05/17/19 16:15 White Blood Count 8.8 K/UL (4.8-10.8) Red Blood Count 2.93 M/UL (4.20-5.40) Hemoglobin 8.5 G/DL (12.0-16.0) Hematocrit 27.6 % (37.0-47.0) Mean Corpuscular Volume 94 FL (80-99) Mean Corpuscular Hemoglobin 29.2 PG (27.0-31.0) Mean Corpuscular Hemoglobin Concent 31.0 G/DL (32.0-36.0) Red Cell Distribution Width 18.0 % (11.6-14.8) Platelet Count 217 K/UL (150-450) Mean Platelet Volume 6.9 FL (6.5-10.1) Neutrophils (%) (Auto) 74.9 % (45.0-75.0) Lymphocytes (%) (Auto) 16.7 % (20.0-45.0) Monocytes (%) (Auto) 2.9 % (1.0-10.0) Eosinophils (%) (Auto) 4.8 % (0.0-3.0) Basophils (%) (Auto) 0.9 % (0.0-2.0) Prothrombin Time 14.8 SEC (9.30-11.50) Prothromb Time International Ratio 1.4 (0.9-1.1) Activated Partial Thromboplast Time 45 SEC (23-33) Sodium Level 146 MMOL/L (136-145) Potassium Level 4.3 MMOL/L (3.5-5.1) Chloride Level 111 MMOL/L (98-107) Carbon Dioxide Level 24 MMOL/L (21-32) Anion Gap 11 mmol/L (5-15) Blood Urea Nitrogen 72 mg/dL (7-18) Creatinine 1.5 MG/DL (0.55-1.30) Estimat Glomerular Filtration Rate mL/min (>60) Glucose Level 89 MG/DL (74-106) Calcium Level 8.6 MG/DL (8.5-10.1) Total Bilirubin 0.4 MG/DL (0.2-1.0) Aspartate Amino Transf (AST/SGOT) 31 U/L (15-37) Alanine Aminotransferase (ALT/SGPT) 12 U/L (12-78) Alkaline Phosphatase 154 U/L (46-116) Total Protein 6.6 G/DL (6.4-8.2) Albumin 1.5 G/DL (3.4-5.0) Globulin 5.1 g/dL Albumin/Globulin Ratio 0.3 (1.0-2.7) Lipase 89 U/L (73-393) EKG Diagnostic Results Rate: normal Rhythm: NSR ST Segments: other - twave inversions in lateral leads ASA given to the pt in ED: No Rhythm Strip Diag. Results EP Interpretation: yes Rhythm: NSR, no PVC's, no ectopy Last Vital Signs Date Time Temp Pulse Resp B/P (MAP) Pulse Ox O2 Delivery O2 Flow Rate FiO2 05/17/19 16:59 45 05/17/19 15:39 86 24 05/17/19 15:37 100 Mechanical Ventilator 05/17/19 15:04 97.3 125/78 (94) Status: improved Disposition: ADMITTED INPATIENT Condition: Serious Referrals: Jama Keating DO (PCP) Gabe Person MD May 17, 2019 17:18
--- NOTE | 2019-05-17 17:22 | NUR ---
ED Nurse Note: REPORT GIVEN TO HORTENCIA RANDALL FROM SDU.
[2019-05-17 17:35] VITALS: BP 167/81
[2019-05-17] MEDS ORDERED: FERROUS SULFAT325 MG GT (17:41)
[2019-05-17] MEDS ORDERED: PROMOD946 ML GT (17:41)
[2019-05-17] MEDS ORDERED: VITAMIN C500 M1 GT (17:41)
[2019-05-17] MEDS ORDERED: EPOGEN20000 UNI1 SUBQ (17:41)
[2019-05-17] MEDS ORDERED: ZINC SULFATE220 M1 GT ×2 (17:41→19:34)
[2019-05-17] MEDS ORDERED: NOVOLOG100 UNIT/4 SQ ×2 (17:41→19:34)
[2019-05-17] MEDS ORDERED: MACRODANTIN50 MG ORAL (17:41)
--- NOTE | 2019-05-17 17:45 | NUR ---
ED Nurse Note: PT TRANSFERRED TO SDU, NO BELONGINGS, LIST SENT W/ PT, PT REPORT GIVEN AND CARE ENDORSED TO RN PRAKASH FROM SDU, SON AT THE BEDSIDE, IV INTACT AND PATENT. PT VSS, NSR ON [employer]. RT PRESENT DURING TRANSPORT.
--- NOTE | 2019-05-17 18:10 | NUR ---
NURSE NOTES: Received pt from ER nurse Loraine and RT Missael via hospital bed and O2 tank with bagging in stable condition with no cardiopulmonary distress noted. Pt is trache to vent Shiley 8 AC 16 TV 500 FiO2 45% Peep 5 hooked to ventilator by Missael, RT. Pt hooked to potline monitor currently SR HR 95 bpm. VS taken and recorded. GT noted clamped. Pt hooked to purewick, noted BM and void, pt cleaned with ER nurse. Pt has a LAC 20g IV and RH 20g IV. Skin alterations noted. Pt has no belongings. Bed is i n lowest posityion with alarm on, call light within reach. Will continue to monitor pt.
[2019-05-17 18:15] VITALS: BP 152/92
--- NOTE | 2019-05-17 19:00 | NUR ---
HAND-OFF: Report given to HORTENCIA Werner. Pt in stable condition.
--- NOTE | 2019-05-17 19:30 | NUR ---
NURSE NOTES: Received Pt from HORTENCIA Acosta. Pt is admitted from ER. Pt is resting on the bed and obtunded. Trach to Vent dependent setting with AC: 16, T:500, P:5, FiO2 45%. Given tracheal and oral suction. Provided oral care. IV site intact on Rt.hand area. Noted leaking and redness on Lt. AC area. Will removed. Lt. AC IV. On Tele monitor with SR. Checked Pt's skin and no noted old scar on sacral area and redness and excoriation on perianal area. Cleaned Pt and applied skin barrier cream. Pt has G-tube and patent and no residual noted. Given admission instruction but she didn't understand. Left message to Dr. Springer who is covering of Dr. Keating for admission order and awaiting call back. Will continue to monitor any change of condition.
[2019-05-17] MEDS ORDERED: FUROSEMIDE40 MG GT (19:34)
[2019-05-17] MEDS ORDERED: COLACE100 MG/10 GT (19:34)
[2019-05-17] MEDS ORDERED: ACETAMINOP160 MG/5 M GT (19:34)
[2019-05-17] MEDS ORDERED: METOPROLOL TART25 MG GT (19:34)
[2019-05-17] MEDS ORDERED: HYDRALAZINE HCL10 MG GT (19:34)
[2019-05-17] MEDS ORDERED: DULCOLAX10 MG RC (19:34)
[2019-05-17] MEDS ORDERED: ALBUTEROL2.5 MG/3 M INH (19:34)
[2019-05-17] MEDS ORDERED: PLAVIX75 MG GT (19:34)
[2019-05-17] MEDS ORDERED: MULTI-DELYN237 ML GT (19:34)
[2019-05-17] MEDS ORDERED: MILK OF MA400 MG/51 GT (19:34)
--- NOTE | 2019-05-17 19:40 | NUR ---
RESPIRATORY NOTE: PT RECEIVED STABLE ON AC/VC 16, 500, 45%, +5. ALARMS ARE ON AND AUDIBLE. VENT CIRCUIT IS SECURE AND OUT OF THE WAY. PT IS BEING VENTILATED VIA SHILEY CUFFED # 8 TRACH. EXTERNAL ALARM CABLE PLACED AND IS OPERATIONAL. PT TOLERATING VENT SETTINGS WELL. NO S/S OF RESPIRATORY DISTRESS NOTED AT THIS TIME. WILL CONTINUE TO MONITOR.
--- NOTE | 2019-05-17 19:43 | NUR ---
NURSE NOTES: Admission order received from Dr. engle and carried out.
[2019-05-17] MEDS ORDERED: HydrALAZINE 10mg Tab GT PRN (19:45)
[2019-05-17] MEDS ORDERED: Albuterol/Ipratropium 3ml neb HHN PRN (19:45)
[2019-05-17] MEDS ORDERED: Morphine Sulfate 4mg/ml Inj (IV USE ONLY) IVP PRN (19:45)
[2019-05-17] MEDS ORDERED: Miralax 17gm pkt ORAL PRN (19:45)
[2019-05-17] MEDS ORDERED: LORazepam Inj 2mg/ml 1ml IV PRN (19:45)
[2019-05-17] MEDS ORDERED: Acetaminophen 650mg/20.3ml GT PRN (19:45)
[2019-05-17 20:00] VITALS: BP 127/71
[2019-05-17 20:26] LABS: CREATINE KINASE 21 U/L (26-308)
[2019-05-17] MEDS ORDERED: Vancomycin 1.25gm Premix IVPB ONE (21:00)
[2019-05-17] MEDS ORDERED: NovoLOG Insulin Flexpen SUBQ SCH (21:00)
[2019-05-17] MEDS: Heparin 5000 units/ml inj SUBQ SCH (21:13)
[2019-05-17] MEDS: Metoprolol 25mg tab GT SCH (21:14)
[2019-05-17 23:29] LABS: APPEARANCE,URINE CLEAR; BILIRUBIN, URINE NEGATIVE (NEGATIVE); COLOR,URINE PALE YELLOW; GLUCOSE, URINE (UA) NEGATIVE (NEGATIVE); KETONES,URINE NEGATIVE (NEGATIVE); LEUKOCYTE ESTERASE ,URINE NEGATIVE (NEGATIVE); NITRITE,URINE NEGATIVE (NEGATIVE); PH,URINE 6 (4.5-8.0); PROTEIN,URINE 3+ (NEGATIVE); UROBILINOGEN,URINE NORMAL MG/DL (0.0-1.0)
[2019-05-18] VITALS: BP 136/74
[2019-05-18 04:00] VITALS: BP 139/70
--- NOTE | 2019-05-18 05:00 | NUR ---
RESPIRATORY NOTE: PT REMAINED STABLE ON CMV WITH CURRENT SETTINGS. SXN'D PRN WITH NO ADVERSE REACTION. AIRWAY IS MIDLINE, SECURE AND PATENT. VENT CIRCUIT AND SX TUBBING ARE SECURE AND OUT OF THE WAY. NO S/S OF RESPIRATORY DISTRESS NOTED AT THIS TIME.
[2019-05-18] MEDS: NovoLOG Insulin Flexpen SUBQ SCH ×5 (06:00→23:55)
[2019-05-18 06:49] LABS: BASOPHILS % (AUTO) 0.7 % (0.0-2.0); EOSINOPHILS % (AUTO) 3.7 % (0.0-3.0); LYMPHOCYTES % (AUTO) 22.1 % (20.0-45.0); MEAN CORPUSCULAR VOLUME 95 FL (80-99); MONOCYTES % (AUTO) 3.9 % (1.0-10.0); NEUTROPHILS % (AUTO) 69.7 % (45.0-75.0); PLATELET COUNT 207 K/UL (150-450); RED BLOOD COUNT 2.73 M/UL (4.20-5.40); WHITE BLOOD COUNT 9.5 K/UL (4.8-10.8)
--- NOTE | 2019-05-18 07:00 | NUR ---
RESPIRATORY NOTES: Received Patient on Vent settings ACVC RR 16, VT 500, FIO2 45%, PEEP +5. Patient is trached with a Shiley 8 tracheostomy tube, secured with trach ties. Bilateral rhonchi noted throughout both lung cruz. Suction small amount of thin white/ green secretions Q2 and PRN through ETT. Vent alarms are on and audible. Vent plugged into red outlet. Will continue to monitor throughout the day.
--- NOTE | 2019-05-18 07:15 | NUR ---
HAND-OFF: Report given to HORTENCIA Acosta. Pt is resting on the bed and sign of acute distress noted. Addendum: 05/18/19 at 0330 by MJ BILLINGS RN RN charting error
--- NOTE | 2019-05-18 07:25 | NUR ---
HAND-OFF: Report given to HORTENCIA Gamez. Pt is resting on the bed and sign of acute distress noted.
--- NOTE | 2019-05-18 07:25 | NUR ---
NURSE NOTES: Received report from Carlota Maher RN. Patient alert and oriented x 4, able to make needs known. Receiving O2 via nasal cannula @ 2L/min, no s/s of respiratory distress noted. Fraga catheter patent and draining well. Noted with scattered rashes on neck and torso. Right upper arm midline running dobutamine, @ 5 mcg/kg/hr, asymptomatic. Bed locked in lowest position with side rails up x 3. All needs attended to. Call light within reach. Will continue to monitor. Addendum: 05/18/19 at 0829 by GENESIS BRANCH RN charted in error, wrong patient
--- NOTE | 2019-05-18 07:30 | NUR ---
NURSE NOTES: Received report from Carlota Maher RN. Patient awake, tracks with eyes but unable to follow commands, nonverbal, unable to make needs known. Trach to vent with settings of AC 16, TV 500, FiO2 45%, PEEP 5, no s/s of respiratory distress noted. GT feeding of Glucerna 1.2 running @ 30 cc/hr, no residuals noted. Female external catheter in place and attached to continuous, low suction. Right hand 20g IV site infusing 1/2NS @ 150 cc/hr, asymptomatic. Bed locked in lowest position with side rails up x 3. All needs attended to. Will continue to monitor.
[2019-05-18 07:44] LABS: ALBUMIN 1.5 G/DL (3.4-5.0); ANION GAP 11 mmol/L (5-15); BLOOD UREA NITROGEN 70 mg/dL (7-18); CALCIUM 8.7 MG/DL (8.5-10.1); CARBON DIOXIDE 24 MMOL/L (21-32); CHLORIDE 110 MMOL/L (98-107); CREATININE 1.4 MG/DL (0.55-1.30); POTASSIUM 4.7 MMOL/L (3.5-5.1); SODIUM 145 MMOL/L (136-145)
[2019-05-18 08:00] VITALS: BP 151/68
[2019-05-18] MEDS: Metoprolol 25mg tab GT SCH ×2 (08:51→21:00)
[2019-05-18] MEDS: Heparin 5000 units/ml inj SUBQ SCH ×2 (08:53→21:01)
[2019-05-18] MEDS ORDERED: Pantoprazole Inj IV SCH (09:00)
--- NOTE | 2019-05-18 10:33 | Consultation ---
History of Present Illness General Date patient seen: May 18, 2019 Chief Complaint: Abnormal Labs Present Illness HPI 79 year old female with hx of chronic respiratory failure, s/p trach/vent/peg, with hx of prior CVA, hemiplegia, DM, hypertensive heart disease was just discharged from [facility] to [facility]. She is brought back b/o of anemia and worsening renal function. Pt is awake and seems to understand, but can't talk b/ o trach tube. Allergies: Coded Allergies: No Known Allergies (Unverified , 04/12/19) Medication History Scheduled Albuterol Sulfate* (Albuterol Sulfate Hhn*), 3 ML INH Q6H, (Reported) Ascorbic Acid* (Vitamin C*), 500 MG GT DAILY, (Reported) Clopidogrel Bisulfate* (Plavix*), 75 MG GT DAILY, (Reported) Docusate Sodium (Docusate Sodium), 100 MG GT DAILY, (Reported) Epoetin Bandar (Epogen), 10,000 UNIT SUBQ 3XW, (Reported) Ferrous Sulfate* (Ferrous Sulfate*), 330 MG GT DAILY, (Reported) Furosemide* (Lasix*), 40 MG GT DAILY, (Reported) Insulin Glargine (Lantus), 20 SUBQ BEDTIME, (Reported) Metoprolol Tartrate* (Metoprolol Tartrate*), 25 MG GT EVERY 12 HOURS, (Reported) Multivitamin Liquid* (Multi-Delyn*), 15 ML GT DAILY, (Reported) Na Phos,M-B/Na Phos,Di-Ba* (Fleet Enema*), 133 ML RECTAL DAILY, (Reported) Nitrofurantoin Macrocrystal (Macrodantin*), 50 MG ORAL FOUR TIMES A DAY, ( Reported) Protein Supplement (Promod), 30 ML GT DAILY, (Reported) Zinc Sulfate (Zinc Sulfate*), 220 MG GT DAILY, (Reported) Zinc Sulfate (Zinc Sulfate*), 220 MG GT DAILY, (Reported) Scheduled PRN Acetaminophen 160MG/5ML* (Acetaminophen*), 20 ML GT Q4HR PRN for Mild Pain/Temp > 100.5, (Reported) Bisacodyl (Dulcolax), 10 MG RC DAILY PRN for Constipation, (Reported) Hydralazine Hcl* (Hydralazine Hcl*), 10 MG GT EVERY 6 HOURS PRN for For High Blood Pressure, (Reported) Magnesium Hydroxide* (Milk Of Magnesia*), 30 ML GT QHS PRN for Constipation, ( Reported) Miscellaneous Medications Insulin Aspart (Novolog), 100 UNIT SQ, (Reported) Patient History Healthcare decision maker Cezar Sage Resuscitation status Full Code Advanced Directive on File Past Medical/Surgical History Past Medical/Surgical History: (1) History of CVA (cerebrovascular accident) (2) CAD (coronary artery disease) (3) Diabetes mellitus (4) Hypertensive heart disease (5) 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 (6) At high risk for aspiration (7) Pulmonary hypertension (8) Anemia in chronic kidney disease (CKD) Review of Systems Endocrine: Reports: no symptoms Hematologic/Lymphatic: Reports: no symptoms Physical Exam General Appearance: WD/WN, no apparent distress Lines, tubes and drains: trach, gtube HEENT: normocephalic, atraumatic Neck: non-tender, normal alignment Respiratory/Chest: chest wall non-tender, lungs clear Breasts: no masses Cardiovascular/Chest: normal rate, no gallop/murmur Abdomen: normal bowel sounds Genitourinary/Rectal: normal genital exam Extremities: normal range of motion Last 24 Hour Vital Signs Date Time Temp Pulse Resp B/P (MAP) Pulse Ox O2 Delivery O2 Flow Rate FiO2 05/18/19 09:25 75 16 45 05/18/19 08:51 78 151/68 05/18/19 08:00 97.7 78 16 151/68 (95) 100 05/18/19 07:13 77 16 45 05/18/19 05:00 76 16 45 05/18/19 04:00 98.0 69 21 139/70 (93) 100 05/18/19 04:00 70 05/18/19 04:00 45 05/18/19 04:00 Mechanical Ventilator 05/18/19 03:10 81 17 45 05/18/19 01:15 72 16 45 05/18/19 00:00 Mechanical Ventilator 05/18/19 00:00 98.1 74 21 136/74 (94) 100 05/17/19 23:49 71 05/17/19 23:12 76 16 45 05/17/19 21:14 82 16 45 05/17/19 21:14 72 127/71 05/17/19 20:00 98.8 99 21 127/71 (89) 100 05/17/19 20:00 Mechanical Ventilator 05/17/19 20:00 45 05/17/19 20:00 80 05/17/19 19:40 85 16 99 Mechanical Ventilator 45 05/17/19 19:40 85 16 45 05/17/19 18:33 45 05/17/19 18:15 97.7 95 21 152/92 (112) 97 05/17/19 18:00 104 05/17/19 17:45 98.4 90 20 135/75 100 Mechanical Ventilator 45 05/17/19 17:38 85 21 45 05/17/19 17:35 97.8 82 18 167/81 100 Mechanical Ventilator 45 05/17/19 16:59 45 05/17/19 16:35 97.3 82 24 161/81 100 Mechanical Ventilator 45 05/17/19 15:40 85 24 Mechanical Ventilator 45 05/17/19 15:39 86 24 45 05/17/19 15:37 86 24 100 Mechanical Ventilator 45 05/17/19 15:34 97.2 78 18 168/78 96 Mechanical Ventilator 45 05/17/19 15:04 97.3 68 18 125/78 (94) 96 Trach Collar Intake and Output 05/17/19 05/18/19 19:00 07:00 Intake Total 1500 ml 2090.000 ml Balance 1500 ml 2090.000 ml Intake IV Total 1500 ml 1830.000 ml Tube Feeding 260 ml # Voids 2 3 # Bowel Movements 2 4 Laboratory Tests Test 05/17/19 16:15 05/17/19 16:20 05/17/19 22:33 05/18/19 04:59 White Blood Count 8.8 K/UL (4.8-10.8) 9.5 K/UL (4.8-10.8) Red Blood Count 2.93 M/UL (4.20-5.40) L 2.73 M/UL (4.20-5.40) L Hemoglobin 8.5 G/DL (12.0-16.0) L 8.0 G/DL (12.0-16.0) L Hematocrit 27.6 % (37.0-47.0) L 26.0 % (37.0-47.0) L Mean Corpuscular Volume 94 FL (80-99) 95 FL (80-99) Mean Corpuscular Hemoglobin 29.2 PG (27.0-31.0) 29.2 PG (27.0-31.0) Mean Corpuscular Hemoglobin Concent 31.0 G/DL (32.0-36.0) L 30.6 G/DL (32.0-36.0) L Red Cell Distribution Width 18.0 % (11.6-14.8) H 18.0 % (11.6-14.8) H Platelet Count 217 K/UL (150-450) 207 K/UL (150-450) Mean Platelet Volume 6.9 FL (6.5-10.1) 7.3 FL (6.5-10.1) Neutrophils (%) (Auto) 74.9 % (45.0-75.0) 69.7 % (45.0-75.0) Lymphocytes (%) (Auto) 16.7 % (20.0-45.0) L 22.1 % (20.0-45.0) Monocytes (%) (Auto) 2.9 % (1.0-10.0) 3.9 % (1.0-10.0) Eosinophils (%) (Auto) 4.8 % (0.0-3.0) H 3.7 % (0.0-3.0) H Basophils (%) (Auto) 0.9 % (0.0-2.0) 0.7 % (0.0-2.0) Prothrombin Time 14.8 SEC (9.30-11.50) H Prothromb Time International Ratio 1.4 (0.9-1.1) H Activated Partial Thromboplast Time 45 SEC (23-33) H Sodium Level 146 MMOL/L (136-145) H 145 MMOL/L (136-145) Potassium Level 4.3 MMOL/L (3.5-5.1) 4.7 MMOL/L (3.5-5.1) Chloride Level 111 MMOL/L (98-107) H 110 MMOL/L (98-107) H Carbon Dioxide Level 24 MMOL/L (21-32) 24 MMOL/L (21-32) Anion Gap 11 mmol/L (5-15) 11 mmol/L (5-15) Blood Urea Nitrogen 72 mg/dL (7-18) H 70 mg/dL (7-18) H Creatinine 1.5 MG/DL (0.55-1.30) H 1.4 MG/DL (0.55-1.30) H Estimat Glomerular Filtration Rate mL/min (>60) mL/min (>60) Glucose Level 89 MG/DL (74-106) 76 MG/DL (74-106) Calcium Level 8.6 MG/DL (8.5-10.1) 8.7 MG/DL (8.5-10.1) Total Bilirubin 0.4 MG/DL (0.2-1.0) Aspartate Amino Transf (AST/SGOT) 31 U/L (15-37) Alanine Aminotransferase (ALT/SGPT) 12 U/L (12-78) Alkaline Phosphatase 154 U/L (46-116) H Total Protein 6.6 G/DL (6.4-8.2) Albumin 1.5 G/DL (3.4-5.0) L 1.5 G/DL (3.4-5.0) L Globulin 5.1 g/dL Albumin/Globulin Ratio 0.3 (1.0-2.7) L Lipase 89 U/L (73-393) Uric Acid 6.6 MG/DL (2.6-7.2) Total Creatine Kinase 21 U/L (26-308) L Urine Color Pale yellow Urine Appearance Clear Urine pH 6 (4.5-8.0) Urine Specific [place] 1.010 (1.005-1.035) Urine Protein 3+ (NEGATIVE) H Urine Glucose (UA) Negative (NEGATIVE) Urine Ketones Negative (NEGATIVE) Urine Blood Negative (NEGATIVE) Urine Nitrite Negative (NEGATIVE) Urine Bilirubin Negative (NEGATIVE) Urine Urobilinogen Normal MG/DL (0.0-1.0) Urine Leukocyte Esterase Negative (NEGATIVE) Urine RBC 0-2 /HPF (0 - 2) Urine WBC 0 /HPF (0 - 2) Urine Squamous Epithelial Cells Few /LPF (NONE/OCC) Urine Bacteria Few /HPF (NONE) Urine Eosinophils None seen (NONE SEEN) Urine Osmolality 435 mOsm/kg (429-449) Urine Random Creatinine Pending Urine Random Microalbumin Pending Urine Random Sodium 75 mmol/L (20-110) Urine Microalbumin/Creatinine Ratio Pending Phosphorus Level 4.0 MG/DL (2.5-4.9) Random Vancomycin Level 18.4 ug/mL Microbiology Date/Time Source Procedure Growth Status 05/17/19 20:22 Sputum Gram Stain - Final Resulted 05/17/19 20:22 Sputum Sputum Culture Pending Resulted Height (Feet): 5 Height (Inches): 5.00 Weight (Pounds): 200 Medications Current Medications Medications (Trade) Dose Ordered Sig/Kenisha Route PRN Reason Start Time Stop Time Status Last Admin Dose Admin Acetaminophen (Tylenol) 650 mg Q4H PRN GT FEVER 05/17/19 19:45 06/16/19 19:44 Albuterol/ Ipratropium (Albuterol/ Ipratropium) 3 ml Q4H PRN HHN Shortness of Breath 05/17/19 19:45 05/22/19 19:44 Clopidogrel Bisulfate (Plavix) 75 mg DAILY GT 05/18/19 09:00 06/17/19 08:59 05/18/19 08:51 Dextrose (Dextrose 50%) 25 ml Q30M PRN IV Hypoglycemia 05/17/19 19:45 06/16/19 19:44 Dextrose (Dextrose 50%) 50 ml Q30M PRN IV Hypoglycemia 05/17/19 20:00 06/16/19 19:59 Heparin Sodium (Porcine) (Heparin 5000 units/ml) 5,000 units EVERY 12 HOURS SUBQ 05/17/19 21:00 06/16/19 20:59 05/18/19 08:53 Hydralazine HCl (Apresoline) 10 mg Q6H PRN GT For High Blood Pressure 05/17/19 19:45 06/16/19 19:44 Insulin Aspart (NovoLOG) Q6HR SUBQ 05/18/19 00:00 06/16/19 20:59 Lorazepam (Ativan 2mg/ml 1ml) 2 mg Q2H PRN IV For Anxiety 05/17/19 19:45 05/24/19 19:44 Metoprolol Tartrate (Lopressor) 25 mg EVERY 12 HOURS GT 05/17/19 21:00 06/16/19 20:59 05/18/19 08:51 Morphine Sulfate (Morphine Sulfate) 4 mg Q4H PRN IVP Severe Pain (Pain Scale 7-10) 05/17/19 19:45 05/24/19 19:44 Ondansetron HCl (Zofran) 4 mg Q6H PRN IVP Nausea & Vomiting 05/17/19 19:45 06/16/19 19:44 Pantoprazole (Protonix) 40 mg DAILY IV 05/18/19 09:00 06/17/19 08:59 05/18/19 08:51 Polyethylene Glycol (Miralax) 17 gm DAILYPRN PRN ORAL Constipation 05/17/19 19:45 06/16/19 19:44 Sodium Chloride 1,000 ml @ 150 mls/hr Q6H40M IV 05/17/19 19:45 06/16/19 19:44 05/18/19 08:53 Vancomycin HCl (Vanco rx to dose) 1 ea DAILY PRN MISC Per rx protocol 05/17/19 20:00 06/16/19 19:59 Vancomycin HCl 1 gm/Sodium Chloride 275 ml @ 183.708 mls/hr ONCE IVPB 05/18/19 21:00 05/18/19 22:00 Assessment/Plan Problem List: (1) Chronic respiratory failure ICD Codes: J96.10 - Chronic respiratory failure, unspecified whether with hypoxia or hypercapnia SNOMED: 69776411 (2) Renal failure (ARF), acute on chronic ICD Codes: N17.9 - Acute kidney failure, unspecified; N18.9 - Chronic kidney disease, unspecified SNOMED: 325336322 Qualifiers: Qualified Codes: N17.9 - Acute kidney failure, unspecified; N18.9 - Chronic kidney disease, unspecified (3) Anemia in chronic kidney disease (CKD) ICD Codes: N18.9 - Chronic kidney disease, unspecified; D63.1 - Anemia in chronic kidney disease SNOMED: 144741064 Qualifiers: Qualified Codes: N18.9 - Chronic kidney disease, unspecified; D63.1 - Anemia in chronic kidney disease (4) At high risk for aspiration ICD Codes: Z91.89 - Other specified personal risk factors, not elsewhere classified SNOMED: 245878255 (5) Pulmonary hypertension ICD Codes: I27.20 - Pulmonary hypertension, unspecified SNOMED: 50940824 (6) 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 ICD Codes: E11.22 - Type 2 diabetes mellitus with diabetic chronic kidney disease; N18.4 - Chronic kidney disease, stage 4 (severe) SNOMED: 40815756, 179574145, 850980224 (7) CAD (coronary artery disease) ICD Codes: I25.10 - Atherosclerotic heart disease of [place] coronary artery without angina pectoris SNOMED: 46454723 (8) History of CVA (cerebrovascular accident) ICD Codes: Z86.73 - Personal history of transient ischemic attack (TIA), and cerebral infarction without residual deficits SNOMED: 895422771 (9) Diabetes mellitus ICD Codes: E11.9 - Type 2 diabetes mellitus without complications SNOMED: 70306385 Respiratory: monitor respiratory rate, adjust FIO2, CXR Renal: increase IV fluid Infectious Disease: check cultures Gastrointestinal: continue feedings/current rate Endocrine: monitor blood sugar Hematologic: monitor H/H, transfuse if hgb<8.5 Neurologic: PRN Ativan, PRN Morphine, keep patient comfortable Affect: PRN ativan Prophylaxis: Heparin Time Spent (Minutes): 40 Notes Reviewed: party planner, cardio Discussed with: nurses, consultants, director of casework Tony Springer MD May 18, 2019 10:33
--- NOTE | 2019-05-18 11:18 | NUR ---
RD ASSESSMENT & RECOMMENDATIONS SEE CARE ACTIVITY FOR COMPLETE ASSESSMENT DAILY ESTIMATED NEEDS: Needs based on Critical care/ 62kg abw 22-30 kcals/kg 8605-9783 total kcals 1.25-2 g protein/kg 78-124 g total protein 25-30 mL/kg 7395-3999 total fluid mLs NUTRITION DIAGNOSIS: * Swallowing difficulty R/T dysphagia, h/o CVA, respiratory status as evidenced by pt is now s/p PEG and Trach placement. (CURRENT TF:Glucerna 1.2 @30) ENTERAL NUTRITION RECOMMENDATIONS: Glucerna 1.2 @ 60ml/hr x 24 hrs to provide 1440ml, 1728 kcal, 86g pro, 1159ml free H2O * As able, increased Glucerna 1.2 by 10ml q4-6 hrs to goal as tolerated. * @goal Meets 100% est needs. --- W/ ELEV K, REC TF CHANGE TO NEPRO FOR LESS K CONTENT Nepro @ 40m/hr x 24 hrs -> 960ml, 1728kcal, 78g prot, 698ml free water ---- ADDITIONAL RECOMMENDATIONS: * Calibrated bedscale wt for accurate CBW -> recent adm wt of 165#, now 200# * Monitor K closely- rec NEPRO w/ consistently elev K * Monitor lytes daily, replete as needed * H/o wounds, now bedbound, rec PUMA BID to maintain skin integrity -> Rec wound care nurse mino
--- NOTE | 2019-05-18 11:38 | Consultation ---
Consult Note Consult Note asked to eval for renal failure Patient know to me from her previous admission and recent discharge 79-year-old female presents ED for evaluation. Coming from residential facility for evaluation of abnormal labs. Recent labs show elevated BUN/ creatinine, low hemoglobin. Patient is nonverbal at baseline. Unable to provide any additional history at this time. No signs of distress upon arrival. Trach/vent. No reported fevers or chills. No other aggravating relieving factors. No other associated symptoms Allergies: Coded Allergies: No Known Allergies (Unverified , 04/12/19) PH (1) Renal failure (ARF), acute on chronic (2) Diabetic nephropathy (3) Sepsis (4) Pneumonia (5) Right hemiplegia (6) Anemia in chronic kidney disease (CKD) (7) Pulmonary hypertension Assessment/Plan Acute on chronic renal failure- Anemia s/p Pneumonia / respiratory failure has trchon / s/p Sepsis HyperGlycemia / DM 24 H urine protein check 2.4 gram Right Esvin due to CVA HTN BP and BS control urine studies slow hydrate previous kidney MAIKEL results noted: No Causey previous 2D echo Noted visualized except distal setum and inferiro wall hypokinesis Left ventricular ejection fraction estimated to be 55-60 %. avoid Nephrotoxics per orders Wally Spivey MD May 18, 2019 11:38
--- NOTE | 2019-05-18 11:44 | NUR ---
*-* INSURANCE *-* AVAILABLE CLINICALS HAVE BEEN FAXED TO: [facility]# [id number] f:[phone]
--- NOTE | 2019-05-18 11:55 | Diagnostic Imaging Report ---
Indication: Abnormal renal function tests. Low hemoglobin Technique: Grayscale and duplex images of the kidneys, retroperitoneum, and bladder were obtained. Comparison: none Findings: Right kidney measures 11.4 cm in length. Left kidney measures 11.5 cm in length. Both kidneys demonstrate normal echogenicity. No hydronephrosis. Small cysts are seen in both kidneys.. Normal inferior vena cava. Bladder is normal. Some ascites fluid is seen in the pelvis. Also incidentally noted is a left pleural effusion Impression: Negative for hydronephrosis Incidental findings of pelvic ascites and left pleural effusion Incidental finding of bilateral small renal cysts.
[2019-05-18 12:00] VITALS: BP 147/86
[2019-05-18] MEDS: Sucralfate 1gm tab GT SCH ×2 (12:20→18:24)
[2019-05-18 12:27] LABS: FERRITIN 1541 NG/ML (8-388)
[2019-05-18 12:38] LABS: % IRON SATURATION 24 % (15-50); IRON 34 ug/dL (50-175); TOTAL IRON BINDING CAPACITY 142 ug/dL (250-450)
--- NOTE | 2019-05-18 12:52 | Diagnostic Imaging Report ---
Indication: Dyspnea Technique: One view of the chest Comparison: 05/05/2019 Findings: There is extensive bilateral interstitial and airspace disease, appearing worse than on the previous study. This is slightly greater on the right than on the left that is diffuse and bilateral. The heart is borderline enlarged. The pleural spaces are grossly clear.. Impression: Excessive bilateral diffuse infiltrates versus edema, increased from prior study of 05/05/2019
[2019-05-18] MEDS: Docusate 100mg/10ml Liq NG SCH ×2 (13:00→18:00)
--- NOTE | 2019-05-18 13:48 | Consultation ---
History of Present Illness General Date patient seen: May 18, 2019 Chief Complaint: Abnormal Labs Present Illness HPI 79 y/o F with hx of Dm2, chronic resp failure s/p tarch/vent dependant, CAD, dysphagia s/p PEG, PNA, CKD, pHTN, CVA w/ R hemiplegia, HTN, nonverbal, SNF resident presented to ED on 05/17 for evaluation of anemia, REMY. No reported fever/chills Of note, patient was admitted here from 04/13-05/10/19 with SOB, sepsis. Was treated for PNA. Allergies: Coded Allergies: No Known Allergies (Unverified , 04/12/19) Medication History Scheduled Albuterol Sulfate* (Albuterol Sulfate Hhn*), 3 ML INH Q6H, (Reported) Ascorbic Acid* (Vitamin C*), 500 MG GT DAILY, (Reported) Clopidogrel Bisulfate* (Plavix*), 75 MG GT DAILY, (Reported) Docusate Sodium (Docusate Sodium), 100 MG GT DAILY, (Reported) Epoetin Bandar (Epogen), 10,000 UNIT SUBQ 3XW, (Reported) Ferrous Sulfate* (Ferrous Sulfate*), 330 MG GT DAILY, (Reported) Furosemide* (Lasix*), 40 MG GT DAILY, (Reported) Insulin Glargine (Lantus), 20 SUBQ BEDTIME, (Reported) Metoprolol Tartrate* (Metoprolol Tartrate*), 25 MG GT EVERY 12 HOURS, (Reported) Multivitamin Liquid* (Multi-Delyn*), 15 ML GT DAILY, (Reported) Na Phos,M-B/Na Phos,Di-Ba* (Fleet Enema*), 133 ML RECTAL DAILY, (Reported) Nitrofurantoin Macrocrystal (Macrodantin*), 50 MG ORAL FOUR TIMES A DAY, ( Reported) Protein Supplement (Promod), 30 ML GT DAILY, (Reported) Zinc Sulfate (Zinc Sulfate*), 220 MG GT DAILY, (Reported) Zinc Sulfate (Zinc Sulfate*), 220 MG GT DAILY, (Reported) Scheduled PRN Acetaminophen 160MG/5ML* (Acetaminophen*), 20 ML GT Q4HR PRN for Mild Pain/Temp > 100.5, (Reported) Bisacodyl (Dulcolax), 10 MG RC DAILY PRN for Constipation, (Reported) Hydralazine Hcl* (Hydralazine Hcl*), 10 MG GT EVERY 6 HOURS PRN for For High Blood Pressure, (Reported) Magnesium Hydroxide* (Milk Of Magnesia*), 30 ML GT QHS PRN for Constipation, ( Reported) Miscellaneous Medications Insulin Aspart (Novolog), 100 UNIT SQ, (Reported) Patient History Healthcare decision maker Cezar Sage Resuscitation status Full Code Advanced Directive on File Patient History Narrative Pmhx: as above Shx: Denies: smoking, alcohol use, drug use Fhx: non contributory Review of Systems All Other Systems: negative except mentioned in HPI Physical Exam Physical Exam Narrative General Appearance: WD/WN, no apparent distress Lines, tubes and drains: trach, gtube HEENT: normocephalic, atraumatic Neck: non-tender, normal alignment Respiratory/Chest: chest wall non-tender, lungs clear Breasts: no masses Cardiovascular/Chest: normal rate, no gallop/murmur Abdomen: normal bowel sounds Extremities: normal range of motion Last 24 Hour Vital Signs Date Time Temp Pulse Resp B/P (MAP) Pulse Ox O2 Delivery O2 Flow Rate FiO2 05/18/19 12:00 45 05/18/19 12:00 97.7 75 18 147/86 (106) 100 05/18/19 11:15 75 16 45 05/18/19 09:25 75 16 45 05/18/19 08:51 78 151/68 05/18/19 08:00 45 05/18/19 08:00 97.7 78 16 151/68 (95) 100 05/18/19 08:00 Mechanical Ventilator 05/18/19 07:52 79 05/18/19 07:13 77 16 45 05/18/19 05:00 76 16 45 05/18/19 04:00 98.0 69 21 139/70 (93) 100 05/18/19 04:00 70 05/18/19 04:00 45 05/18/19 04:00 Mechanical Ventilator 05/18/19 03:10 81 17 45 05/18/19 01:15 72 16 45 05/18/19 00:00 Mechanical Ventilator 05/18/19 00:00 98.1 74 21 136/74 (94) 100 05/17/19 23:49 71 05/17/19 23:12 76 16 45 05/17/19 21:14 82 16 45 05/17/19 21:14 72 127/71 05/17/19 20:00 98.8 99 21 127/71 (89) 100 05/17/19 20:00 Mechanical Ventilator 05/17/19 20:00 45 05/17/19 20:00 80 05/17/19 19:40 85 16 99 Mechanical Ventilator 45 05/17/19 19:40 85 16 45 05/17/19 18:33 45 05/17/19 18:15 97.7 95 21 152/92 (112) 97 05/17/19 18:00 104 05/17/19 17:45 98.4 90 20 135/75 100 Mechanical Ventilator 45 05/17/19 17:38 85 21 45 05/17/19 17:35 97.8 82 18 167/81 100 Mechanical Ventilator 45 05/17/19 16:59 45 05/17/19 16:35 97.3 82 24 161/81 100 Mechanical Ventilator 45 05/17/19 15:40 85 24 Mechanical Ventilator 45 05/17/19 15:39 86 24 45 05/17/19 15:37 86 24 100 Mechanical Ventilator 45 05/17/19 15:34 97.2 78 18 168/78 96 Mechanical Ventilator 45 05/17/19 15:04 97.3 68 18 125/78 (94) 96 Trach Collar Intake and Output 05/17/19 05/18/19 19:00 07:00 Intake Total 1500 ml 2090.000 ml Balance 1500 ml 2090.000 ml Intake IV Total 1500 ml 1830.000 ml Tube Feeding 260 ml # Voids 2 3 # Bowel Movements 2 4 Laboratory Tests Test 05/17/19 16:15 05/17/19 16:20 05/17/19 22:33 05/18/19 04:59 White Blood Count 8.8 K/UL (4.8-10.8) 9.5 K/UL (4.8-10.8) Red Blood Count 2.93 M/UL (4.20-5.40) L 2.73 M/UL (4.20-5.40) L Hemoglobin 8.5 G/DL (12.0-16.0) L 8.0 G/DL (12.0-16.0) L Hematocrit 27.6 % (37.0-47.0) L 26.0 % (37.0-47.0) L Mean Corpuscular Volume 94 FL (80-99) 95 FL (80-99) Mean Corpuscular Hemoglobin 29.2 PG (27.0-31.0) 29.2 PG (27.0-31.0) Mean Corpuscular Hemoglobin Concent 31.0 G/DL (32.0-36.0) L 30.6 G/DL (32.0-36.0) L Red Cell Distribution Width 18.0 % (11.6-14.8) H 18.0 % (11.6-14.8) H Platelet Count 217 K/UL (150-450) 207 K/UL (150-450) Mean Platelet Volume 6.9 FL (6.5-10.1) 7.3 FL (6.5-10.1) Neutrophils (%) (Auto) 74.9 % (45.0-75.0) 69.7 % (45.0-75.0) Lymphocytes (%) (Auto) 16.7 % (20.0-45.0) L 22.1 % (20.0-45.0) Monocytes (%) (Auto) 2.9 % (1.0-10.0) 3.9 % (1.0-10.0) Eosinophils (%) (Auto) 4.8 % (0.0-3.0) H 3.7 % (0.0-3.0) H Basophils (%) (Auto) 0.9 % (0.0-2.0) 0.7 % (0.0-2.0) Prothrombin Time 14.8 SEC (9.30-11.50) H Prothromb Time International Ratio 1.4 (0.9-1.1) H Activated Partial Thromboplast Time 45 SEC (23-33) H Sodium Level 146 MMOL/L (136-145) H 145 MMOL/L (136-145) Potassium Level 4.3 MMOL/L (3.5-5.1) 4.7 MMOL/L (3.5-5.1) Chloride Level 111 MMOL/L (98-107) H 110 MMOL/L (98-107) H Carbon Dioxide Level 24 MMOL/L (21-32) 24 MMOL/L (21-32) Anion Gap 11 mmol/L (5-15) 11 mmol/L (5-15) Blood Urea Nitrogen 72 mg/dL (7-18) H 70 mg/dL (7-18) H Creatinine 1.5 MG/DL (0.55-1.30) H 1.4 MG/DL (0.55-1.30) H Estimat Glomerular Filtration Rate mL/min (>60) mL/min (>60) Glucose Level 89 MG/DL (74-106) 76 MG/DL (74-106) Calcium Level 8.6 MG/DL (8.5-10.1) 8.7 MG/DL (8.5-10.1) Total Bilirubin 0.4 MG/DL (0.2-1.0) Aspartate Amino Transf (AST/SGOT) 31 U/L (15-37) Alanine Aminotransferase (ALT/SGPT) 12 U/L (12-78) Alkaline Phosphatase 154 U/L (46-116) H Total Protein 6.6 G/DL (6.4-8.2) Albumin 1.5 G/DL (3.4-5.0) L 1.5 G/DL (3.4-5.0) L Globulin 5.1 g/dL Albumin/Globulin Ratio 0.3 (1.0-2.7) L Lipase 89 U/L (73-393) Uric Acid 6.6 MG/DL (2.6-7.2) Total Creatine Kinase 21 U/L (26-308) L Urine Color Pale yellow Urine Appearance Clear Urine pH 6 (4.5-8.0) Urine Specific [place] 1.010 (1.005-1.035) Urine Protein 3+ (NEGATIVE) H Urine Glucose (UA) Negative (NEGATIVE) Urine Ketones Negative (NEGATIVE) Urine Blood Negative (NEGATIVE) Urine Nitrite Negative (NEGATIVE) Urine Bilirubin Negative (NEGATIVE) Urine Urobilinogen Normal MG/DL (0.0-1.0) Urine Leukocyte Esterase Negative (NEGATIVE) Urine RBC 0-2 /HPF (0 - 2) Urine WBC 0 /HPF (0 - 2) Urine Squamous Epithelial Cells Few /LPF (NONE/OCC) Urine Bacteria Few /HPF (NONE) Urine Eosinophils None seen (NONE SEEN) Urine Osmolality 435 mOsm/kg (429-449) Urine Random Creatinine Pending Urine Random Microalbumin Pending Urine Random Sodium 75 mmol/L (20-110) Urine Microalbumin/Creatinine Ratio Pending Hemoglobin A1c 6.6 % (4.3-6.0) H Phosphorus Level 4.0 MG/DL (2.5-4.9) Iron Level 34 ug/dL (50-175) L Total Iron Binding Capacity 142 ug/dL (250-450) L Percent Iron Saturation 24 % (15-50) Unsaturated Iron Binding 108 ug/dL (112-346) L Ferritin 1541 NG/ML (8-388) H Vitamin B12 Level 974 PG/ML (193-986) Folate 17.2 NG/ML (8.6-58.9) Random Vancomycin Level 18.4 ug/mL Microbiology Date/Time Source Procedure Growth Status 05/17/19 20:22 Sputum Gram Stain - Final Resulted 05/17/19 20:22 Sputum Sputum Culture Pending Resulted Height (Feet): 5 Height (Inches): 5.00 Weight (Pounds): 200 Medications Current Medications Medications (Trade) Dose Ordered Sig/Kenisha Route PRN Reason Start Time Stop Time Status Last Admin Dose Admin Acetaminophen (Tylenol) 650 mg Q4H PRN GT FEVER 05/17/19 19:45 06/16/19 19:44 Albuterol/ Ipratropium (Albuterol/ Ipratropium) 3 ml Q4H PRN HHN Shortness of Breath 05/17/19 19:45 05/22/19 19:44 Clopidogrel Bisulfate (Plavix) 75 mg DAILY GT 05/18/19 09:00 06/17/19 08:59 05/18/19 08:51 Dextrose (Dextrose 50%) 25 ml Q30M PRN IV Hypoglycemia 05/17/19 19:45 06/16/19 19:44 Dextrose (Dextrose 50%) 50 ml Q30M PRN IV Hypoglycemia 05/17/19 20:00 06/16/19 19:59 Docusate Sodium (Colace) 100 mg THREE TIMES A DAY NG 05/18/19 13:00 06/17/19 12:59 Heparin Sodium (Porcine) (Heparin 5000 units/ml) 5,000 units EVERY 12 HOURS SUBQ 05/17/19 21:00 06/16/19 20:59 05/18/19 08:53 Hydralazine HCl (Apresoline) 10 mg Q6H PRN GT For High Blood Pressure 05/17/19 19:45 06/16/19 19:44 Insulin Aspart (NovoLOG) Q6HR SUBQ 05/18/19 00:00 06/16/19 20:59 Lansoprazole (Prevacid) 30 mg BID GT 05/18/19 18:00 06/17/19 17:59 Lorazepam (Ativan 2mg/ml 1ml) 2 mg Q2H PRN IV For Anxiety 05/17/19 19:45 05/24/19 19:44 Metoprolol Tartrate (Lopressor) 25 mg EVERY 12 HOURS GT 05/17/19 21:00 06/16/19 20:59 05/18/19 08:51 Morphine Sulfate (Morphine Sulfate) 4 mg Q4H PRN IVP Severe Pain (Pain Scale 7-10) 05/17/19 19:45 05/24/19 19:44 Ondansetron HCl (Zofran) 4 mg Q6H PRN IVP Nausea & Vomiting 05/17/19 19:45 06/16/19 19:44 Polyethylene Glycol (Miralax) 17 gm DAILYPRN PRN ORAL Constipation 05/17/19 19:45 06/16/19 19:44 Sodium Chloride 1,000 ml @ 75 mls/hr [id number] IV 05/18/19 12:00 06/16/19 11:59 05/18/19 12:21 Sucralfate (Carafate) 1 gm Q6HR GT 05/18/19 12:00 06/17/19 11:59 05/18/19 12:20 Vancomycin HCl (Vanco rx to dose) 1 ea DAILY PRN MISC Per rx protocol 05/17/19 20:00 06/16/19 19:59 Vancomycin HCl 1 gm/Sodium Chloride 275 ml @ 183.708 mls/hr ONCE IVPB 05/18/19 21:00 05/18/19 22:00 Assessment/Plan Assessment/Plan: Abx: IV Vancomycin 05/17- Assessment: Pulmonary infiltrates vs pulmonary edema -CXR: Excessive bilateral diffuse infiltrates versus edema, increased from prior study of 05/05/2019 Afebrile No leukocytosis REMY on CKD Anemia Recent PNA, s/p Rx HTN CVA with hemiplegia and is now not verbal CKD CAD Dm2 chronic resp failure s/p trach/vent dependant dysphagia s/p PEG PNA pHTN nonverbal SNF resident Plan: -Continue empiric IV Vancomycin #2 and add Zosyn pending sp cx -04/28/19 SP Cefepime #6 -04/22 SP Meropenem #5 -04/20 SP Vancomycin #8 - 04/18/19 S/P Cefepime #6 -f/u cx -Monitor CBC/CMP, temperatures -sp cx Thank you for this consultation. Will continue to follow along with you. Discussed with HORTENCIA. Cora Baer M.D. May 18, 2019 13:48
--- NOTE | 2019-05-18 13:58 | Cardiology Report ---
APPROVED REPORT EKG Measurement Heart [id number] MS [id number] [id number] Normal sinus rhythm Possible Left atrial enlargement Left axis deviation Incomplete right bundle branch block Left ventricular hypertrophy T wave abnormality, consider inferior ischemia T wave abnormality, consider anterolateral ischemia Prolonged QT Abnormal ECG
--- NOTE | 2019-05-18 15:20 | NUR ---
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
[2019-05-18 16:00] VITALS: BP 156/89
[2019-05-18] MEDS: Piperacillin/Tazobactam 3.375 GM in NS 110 ML IVPB SCH (16:10)
--- NOTE | 2019-05-18 18:15 | Progress Note ---
DATE: 05/18/2019 NOTE: INCOMPLETE DICTATION SUBJECTIVE: The patient is a 79-year-old patient with renal failure and anemia. This is a female patient. She is confused and disorganized. She has got no logical plan for her own self-care. She has got feelings of helplessness, hopelessness, low energy, poor appetite, loss of interest in activity. That is why, she does require acute psychiatric inpatient treatment at this time. MENTAL STATUS EXAMINATION: This is a 79-year-old female. Appearance is disheveled. Attitude, irritable and agitated. Affect, guarded and restricted. Intellect poor. . Omar Glover M.D. DR: CATY JOB#: [id number] CC:
--- NOTE | 2019-05-18 19:17 | NUR ---
HAND-OFF: Report given to Herbert Roman RN.
--- NOTE | 2019-05-18 19:27 | NUR ---
NURSE NOTES: Report received from HORTENCIA Gamez. Observed pt lying in the bed, awake, but non-verbal. SR with order clerk noted. Trach to vent, Shiley 8, AC 16, TV 500, FIO2 45%, and PEEP 5. Abd round, soft, and gtube intact and running glucerna 1.2 @ 40cc/hr. Bilateral hand edema noted, pitting +3. IV on R H 20G, running 1/2 NS at 75cc/hr. Bed in the lowest position. Side rails up x3. Will continue to monitor.
[2019-05-18 20:00] VITALS: BP 137/76
[2019-05-18] MEDS ORDERED: Vancomycin 1 GM in NS 275 ML IVPB SCH (21:00)
--- NOTE | 2019-05-18 21:22 | General Progress Note ---
Assessment/Plan Assessment/Plan: GI CONSULT DICTATED Will check stool OB and C Diff first Further recommendations to follow Thank you Yenny Ye MD Subjective Allergies: Coded Allergies: No Known Allergies (Unverified , 04/12/19) Objective Last 24 Hour Vital Signs Date Time Temp Pulse Resp B/P (MAP) Pulse Ox O2 Delivery O2 Flow Rate FiO2 05/18/19 21:02 69 16 45 05/18/19 21:00 69 137/76 05/18/19 20:00 45 05/18/19 20:00 Mechanical Ventilator 05/18/19 20:00 69 05/18/19 20:00 97.9 73 16 137/76 (96) 100 05/18/19 19:28 74 16 45 05/18/19 17:02 61 16 45 05/18/19 16:00 72 05/18/19 16:00 Mechanical Ventilator 05/18/19 16:00 45 05/18/19 16:00 97.9 74 16 156/89 (111) 100 05/18/19 15:20 71 16 45 05/18/19 13:20 73 16 45 05/18/19 12:00 Mechanical Ventilator 05/18/19 12:00 45 05/18/19 12:00 97.7 75 18 147/86 (106) 100 05/18/19 11:43 75 05/18/19 11:15 75 16 45 05/18/19 09:25 75 16 45 05/18/19 08:51 78 151/68 05/18/19 08:00 45 05/18/19 08:00 97.7 78 16 151/68 (95) 100 05/18/19 08:00 Mechanical Ventilator 05/18/19 07:52 79 05/18/19 07:13 77 16 45 05/18/19 05:00 76 16 45 05/18/19 04:00 98.0 69 21 139/70 (93) 100 05/18/19 04:00 70 05/18/19 04:00 45 05/18/19 04:00 Mechanical Ventilator 05/18/19 03:10 81 17 45 05/18/19 01:15 72 16 45 05/18/19 00:00 Mechanical Ventilator 05/18/19 00:00 98.1 74 21 136/74 (94) 100 05/17/19 23:49 71 05/17/19 23:12 76 16 45 Intake and Output 05/17/19 05/18/19 19:00 07:00 Intake Total 1500 ml 2090.000 ml Balance 1500 ml 2090.000 ml Intake IV Total 1500 ml 1830.000 ml Tube Feeding 260 ml # Voids 2 3 # Bowel Movements 2 4 Laboratory Tests 05/17/19 22:33: Urine Color Pale yellow, Urine Appearance Clear, Urine pH 6, Urine Specific [place] 1.010, Urine Protein 3+H, Urine Glucose (UA) Negative, Urine Ketones Negative, Urine Blood Negative, Urine Nitrite Negative, Urine Bilirubin Negative , Urine Urobilinogen Normal, Urine Leukocyte Esterase Negative, Urine RBC 0-2, Urine WBC 0, Urine Squamous Epithelial Cells Few, Urine Bacteria Few, Urine Eosinophils None seen, Urine Osmolality 435, Urine Random Creatinine [Pending], Urine Random Microalbumin [Pending], Urine Random Sodium 75, Urine Microalbumin/ Creatinine Ratio [Pending] 05/18/19 04:59: White Blood Count 9.5, Red Blood Count 2.73L, Hemoglobin 8.0L, Hematocrit 26.0L , Mean Corpuscular Volume 95, Mean Corpuscular Hemoglobin 29.2, Mean Corpuscular Hemoglobin Concent 30.6L, Red Cell Distribution Width 18.0H, Platelet Count 207, Mean Platelet Volume 7.3, Neutrophils (%) (Auto) 69.7, Lymphocytes (%) (Auto) 22.1, Monocytes (%) (Auto) 3.9, Eosinophils (%) (Auto) 3.7H, Basophils (%) (Auto) 0.7, Sodium Level 145, Potassium Level 4.7, Chloride Level 110H, Carbon Dioxide Level 24, Anion Gap 11, Blood Urea Nitrogen 70H, Creatinine 1.4H, Estimat Glomerular Filtration Rate , Glucose Level 76, Hemoglobin A1c 6.6H, Calcium Level 8.7, Phosphorus Level 4.0, Iron Level 34L, Total Iron Binding Capacity 142L, Percent Iron Saturation 24, Unsaturated Iron Binding 108L, Ferritin 1541H, Albumin 1.5L, Vitamin B12 Level 974, Folate 17.2, Random Vancomycin Level 18.4 Height (Feet): 5 Height (Inches): 5.00 Weight (Pounds): 200 Yenny Ye MD May 18, 2019 21:22
--- NOTE | 2019-05-18 22:30 | History and Physical Report ---
DATE OF ADMISSION: 05/18/2019 CONSULTANTS: 1. Tony Springer M.D. 2. Wally Spivey M.D. CHIEF COMPLAINT: Respiratory failure, anemia, and renal failure. HISTORY OF PRESENT ILLNESS: This is a 79-year-old female from [facility] presents to [facility] with history of increased anemia, renal failure, and lethargy. The patient is diagnosed with the above and admitted to step-down unit for further care. Currently, trach, vent, awake in bed, and nonverbal. PAST MEDICAL HISTORY: Includes respiratory failure, CVA, CAD, diabetes, hypertension, CKD, and ACD. PAST SURGICAL HISTORY: Trach. MEDICATIONS: Include vancomycin, Zosyn, docusate sodium, sucralfate, clopidogrel, insulin, metoprolol, heparin, albuterol, and hydralazine. ALLERGIES: None. SOCIAL HISTORY: Unable to obtain secondary to the patient condition. REVIEW OF SYSTEMS: Unavailable. PHYSICAL EXAMINATION: GENERAL: Trach, vent, awake in bed, and nonverbal. VITAL SIGNS: Temp 97 degrees, pulse 75, respirations 18, and blood pressure 147/86. CARDIOVASCULAR: No murmurs. LUNGS: Poor air exchange. ABDOMEN: Bowel sounds distant. EXTREMITIES: Show no cyanosis or edema. NEUROLOGIC: The patient is flaccid in bed, not following directions. LABORATORY AND DIAGNOSTIC DATA: Hemoglobin 8.0, otherwise normal. BMP shows chloride 110, BUN and creatinine are 70 and 1.4, and glucose 76. INR is 1.4. PTT 45. Urinalysis is 3+ protein. ASSESSMENT: 1. Respiratory failure. 2. Anemia. 3. Renal failure. 4. CVA. 5. CAD. 6. Diabetes. 7. Hypertension. 8. CKD. 9. ACD. PLAN: 1. Vent per Pulmonary. 2. Antibiotics as ordered. 3. Transfuse p.r.n. 4. We will add GI and Hematology evaluations. 5. We will continue to follow this patient. Jama Keating D.O. DR: JUAN JOB#: [id number] CC:
[2019-05-18] MEDS ORDERED: Vancomycin 1 GM in D5W 275 ML IV SCH (23:00)
[2019-05-19] VITALS: BP 121/63
--- NOTE | 2019-05-19 | NUR ---
NURSE NOTES: Observed pt sleeping in the bed. Arousable by voice. SR noted on cardiac rehabilitation program director. VS WNL. No signs of acute distress noted at this time. Will continue to monitor.
[2019-05-19] MEDS: Sucralfate 1gm tab GT SCH ×4 (00:03→17:30)
[2019-05-19] MEDS: Piperacillin/Tazobactam 3.375 GM in NS 110 ML IVPB SCH ×3 (00:05→16:54)
--- NOTE | 2019-05-19 02:30 | Consultation ---
DATE OF CONSULTATION: 05/18/2019 GASTROENTEROLOGY CONSULTATION REPORT CHIEF COMPLAINT: "I was asked to see this patient by Dr. Jama Keating for evaluation of anemia and diarrhea." HISTORY OF PRESENT ILLNESS: The patient is an unfortunate 79-year-old woman with multiple medical problems including respiratory failure requiring gastrostomy and tracheostomy placement. The patient is brought to the hospital due to low blood levels. She has also been noted to have diarrhea. The patient herself is nonverbal and most information is only available in the chart. The patient received her gastrostomy tube on recent admission. She is unable to provide any history. Most of the information is only available from the chart. PAST MEDICAL HISTORY: History of diabetes, hypertension, stroke, paresthesia, renal failure, respiratory failure, dysphagia status post tracheostomy, status post gastrostomy. FAMILY HISTORY: Unavailable. SOCIAL HISTORY: The patient is from a shelter and requires 24-hour care. REVIEW OF SYSTEMS: Unobtainable. PHYSICAL EXAMINATION: GENERAL: Debilitated woman, seen in her room. HEENT: Normocephalic and atraumatic. NECK: Showed a tracheostomy catheter. CHEST: Revealed coarse breath sounds. CARDIOVASCULAR: Regular rhythm and rate. ABDOMEN: Soft without any masses. EXTREMITIES: Revealed edema. LABORATORY DATA: Noted. The patient's hematocrit was in the 22 to 25 range and her creatinine was elevated at 1.5 to 1.8. This patient has significant diarrhea of unclear etiology. In addition, the patient is anemic, presumed due to chronic disease in multiple blood tests and renal failure. Her overall health and functional status are poor, but the consideration will be made to a colonoscopy if the patient's anemia does not resolve or worsen. In the meantime, I will check a stool occult blood to see if there is any blood in her stools. RECOMMENDATIONS: 1. Continue tube feeding. 2. Check stool for Clostridium difficile. 3. Monitor blood count. 4. Elevate head of bed. 5. Proton pump inhibitor. 6. Check stool for occult blood. 7. Further recommendations to follow. Thank you for asking me to participate in the care of this patient. Yenny Ye M.D. DR: SAMEERA JOB#: [id number] CC: CLIFF
--- NOTE | 2019-05-19 03:00 | NUR ---
NURSE NOTES: OB stool collected and sent to lab. Bed bath given. BM x1, large, brown diarrhea noted. No acute distress noted. SR with cafeteria monitor. Will continue to monitor.
[2019-05-19 04:00] VITALS: BP 125/75
[2019-05-19 04:11] LABS: HEMATOCRIT 25.1 % (37.0-47.0); HEMOGLOBIN 7.6 G/DL (12.0-16.0); MEAN CORPUSCULAR VOLUME 95 FL (80-99); PLATELET COUNT 201 K/UL (150-450); RED BLOOD COUNT 2.64 M/UL (4.20-5.40); RED CELL DISTRIBUTION WIDTH 17.9 % (11.6-14.8); WHITE BLOOD COUNT 7.8 K/UL (4.8-10.8)
[2019-05-19 04:42] LABS: ALANINE AMINOTRANSFERASE 8 U/L (12-78); ALBUMIN 1.4 G/DL (3.4-5.0); ALBUMIN/GLOBULIN RATIO 0.3 (1.0-2.7); ALKALINE PHOSPHATASE 117 U/L (46-116); ANION GAP 9 mmol/L (5-15); ASPARTATE AMINO TRANSFERASE 28 U/L (15-37); BILIRUBIN,TOTAL 0.4 MG/DL (0.2-1.0); BLOOD UREA NITROGEN 64 mg/dL (7-18); CARBON DIOXIDE 23 MMOL/L (21-32); CHLORIDE 109 MMOL/L (98-107); CHOLESTEROL 71 MG/DL (< 200); CREATININE 1.3 MG/DL (0.55-1.30); HDL CHOLESTEROL 12 MG/DL (40-60); PHOSPHORUS 3.8 MG/DL (2.5-4.9); POTASSIUM 4.8 MMOL/L (3.5-5.1); SODIUM 141 MMOL/L (136-145); TRIGLYCERIDES 178 MG/DL (30-150)
[2019-05-19] MEDS: NovoLOG Insulin Flexpen SUBQ SCH ×3 (05:33→17:32)
--- NOTE | 2019-05-19 05:50 | NUR ---
NURSE NOTES: Notified regarding hgb 7.6 and 1PRBC order received. Will follow the plan of care.
--- NOTE | 2019-05-19 06:04 | NUR ---
NURSE NOTES: Left a message to , regarding VRE rectum positive. Awaiting for call back.
--- NOTE | 2019-05-19 06:35 | Consultation ---
History of Present Illness General Chief Complaint: Abnormal Labs Present Illness Allergies: Coded Allergies: No Known Allergies (Unverified , 04/12/19) Medication History Scheduled Albuterol Sulfate* (Albuterol Sulfate Hhn*), 3 ML INH Q6H, (Reported) Ascorbic Acid* (Vitamin C*), 500 MG GT DAILY, (Reported) Clopidogrel Bisulfate* (Plavix*), 75 MG GT DAILY, (Reported) Docusate Sodium (Docusate Sodium), 100 MG GT DAILY, (Reported) Epoetin Bandar (Epogen), 10,000 UNIT SUBQ 3XW, (Reported) Ferrous Sulfate* (Ferrous Sulfate*), 330 MG GT DAILY, (Reported) Furosemide* (Lasix*), 40 MG GT DAILY, (Reported) Insulin Glargine (Lantus), 20 SUBQ BEDTIME, (Reported) Metoprolol Tartrate* (Metoprolol Tartrate*), 25 MG GT EVERY 12 HOURS, (Reported) Multivitamin Liquid* (Multi-Delyn*), 15 ML GT DAILY, (Reported) Na Phos,M-B/Na Phos,Di-Ba* (Fleet Enema*), 133 ML RECTAL DAILY, (Reported) Nitrofurantoin Macrocrystal (Macrodantin*), 50 MG ORAL FOUR TIMES A DAY, ( Reported) Protein Supplement (Promod), 30 ML GT DAILY, (Reported) Zinc Sulfate (Zinc Sulfate*), 220 MG GT DAILY, (Reported) Zinc Sulfate (Zinc Sulfate*), 220 MG GT DAILY, (Reported) Scheduled PRN Acetaminophen 160MG/5ML* (Acetaminophen*), 20 ML GT Q4HR PRN for Mild Pain/Temp > 100.5, (Reported) Bisacodyl (Dulcolax), 10 MG RC DAILY PRN for Constipation, (Reported) Hydralazine Hcl* (Hydralazine Hcl*), 10 MG GT EVERY 6 HOURS PRN for For High Blood Pressure, (Reported) Magnesium Hydroxide* (Milk Of Magnesia*), 30 ML GT QHS PRN for Constipation, ( Reported) Miscellaneous Medications Insulin Aspart (Novolog), 100 UNIT SQ, (Reported) Patient History Healthcare decision maker Cezar Sage Resuscitation status Full Code Advanced Directive on File Physical Exam Last 24 Hour Vital Signs Date Time Temp Pulse Resp B/P (MAP) Pulse Ox O2 Delivery O2 Flow Rate FiO2 05/19/19 04:47 67 16 40 05/19/19 04:00 Mechanical Ventilator 05/19/19 04:00 97.9 73 16 125/75 (92) 100 05/19/19 04:00 45 05/19/19 03:23 64 05/19/19 02:34 64 16 40 05/19/19 00:54 63 16 40 05/19/19 00:00 66 05/19/19 00:00 Mechanical Ventilator 05/19/19 00:00 98.1 65 16 121/63 (82) 100 05/18/19 22:57 65 16 40 05/18/19 21:02 69 16 45 05/18/19 21:00 69 137/76 05/18/19 20:00 45 05/18/19 20:00 Mechanical Ventilator 05/18/19 20:00 69 05/18/19 20:00 97.9 73 16 137/76 (96) 100 05/18/19 19:28 74 16 45 05/18/19 17:02 61 16 45 05/18/19 16:00 72 05/18/19 16:00 Mechanical Ventilator 05/18/19 16:00 45 05/18/19 16:00 97.9 74 16 156/89 (111) 100 05/18/19 15:20 71 16 45 05/18/19 13:20 73 16 45 05/18/19 12:00 Mechanical Ventilator 05/18/19 12:00 45 05/18/19 12:00 97.7 75 18 147/86 (106) 100 05/18/19 11:43 75 05/18/19 11:15 75 16 45 05/18/19 09:25 75 16 45 05/18/19 08:51 78 151/68 05/18/19 08:00 45 05/18/19 08:00 97.7 78 16 151/68 (95) 100 05/18/19 08:00 Mechanical Ventilator 05/18/19 07:52 79 05/18/19 07:13 77 16 45 Intake and Output 05/18/19 05/19/19 19:00 07:00 Intake Total 1946.667 ml 1282.5 ml Output Total 400 ml 400 ml Balance 1546.667 ml 882.5 ml Intake Free Water 160 ml IV Total 1376.667 ml 552.5 ml Tube Feeding 390 ml 570 ml Other 180 ml Output Urine Total 400 ml 400 ml # Voids 1 # Bowel Movements 2 2 Laboratory Tests Test 05/19/19 03:37 05/19/19 05:15 White Blood Count 7.8 K/UL (4.8-10.8) Red Blood Count 2.64 M/UL (4.20-5.40) L Hemoglobin 7.6 G/DL (12.0-16.0) L Hematocrit 25.1 % (37.0-47.0) L Mean Corpuscular Volume 95 FL (80-99) Mean Corpuscular Hemoglobin 28.9 PG (27.0-31.0) Mean Corpuscular Hemoglobin Concent 30.4 G/DL (32.0-36.0) L Red Cell Distribution Width 17.9 % (11.6-14.8) H Platelet Count 201 K/UL (150-450) Mean Platelet Volume 7.9 FL (6.5-10.1) Neutrophils (%) (Auto) % (45.0-75.0) Lymphocytes (%) (Auto) % (20.0-45.0) Monocytes (%) (Auto) % (1.0-10.0) Eosinophils (%) (Auto) % (0.0-3.0) Basophils (%) (Auto) % (0.0-2.0) Sodium Level 141 MMOL/L (136-145) Potassium Level 4.8 MMOL/L (3.5-5.1) Chloride Level 109 MMOL/L (98-107) H Carbon Dioxide Level 23 MMOL/L (21-32) Anion Gap 9 mmol/L (5-15) Blood Urea Nitrogen 64 mg/dL (7-18) H Creatinine 1.3 MG/DL (0.55-1.30) Estimat Glomerular Filtration Rate mL/min (>60) Glucose Level 111 MG/DL (74-106) H Uric Acid 6.0 MG/DL (2.6-7.2) Calcium Level 8.0 MG/DL (8.5-10.1) L Phosphorus Level 3.8 MG/DL (2.5-4.9) Magnesium Level 2.0 MG/DL (1.8-2.4) Total Bilirubin 0.4 MG/DL (0.2-1.0) Aspartate Amino Transf (AST/SGOT) 28 U/L (15-37) Alanine Aminotransferase (ALT/SGPT) 8 U/L (12-78) L Alkaline Phosphatase 117 U/L (46-116) H C-Reactive Protein, Quantitative 14.2 mg/dL (0.00-0.90) H Pro-B-Type Natriuretic Peptide > 78090 pg/mL (0-125) H Total Protein 6.4 G/DL (6.4-8.2) Albumin 1.4 G/DL (3.4-5.0) L Globulin 5.0 g/dL Albumin/Globulin Ratio 0.3 (1.0-2.7) L Triglycerides Level 178 MG/DL (30-150) H Cholesterol Level 71 MG/DL (< 200) LDL Cholesterol 41 mg/dL (<100) HDL Cholesterol 12 MG/DL (40-60) L Cholesterol/HDL Ratio 5.9 (3.3-4.4) H Stool Occult Blood Pending Height (Feet): 5 Height (Inches): 5.00 Weight (Pounds): 204 Medications Current Medications Medications (Trade) Dose Ordered Sig/Kenisha Route PRN Reason Start Time Stop Time Status Last Admin Dose Admin Acetaminophen (Tylenol) 650 mg Q4H PRN GT FEVER 05/17/19 19:45 06/16/19 19:44 Albuterol/ Ipratropium (Albuterol/ Ipratropium) 3 ml Q4H PRN HHN Shortness of Breath 05/17/19 19:45 05/22/19 19:44 Clopidogrel Bisulfate (Plavix) 75 mg DAILY GT 05/18/19 09:00 06/17/19 08:59 05/18/19 08:51 Dextrose (Dextrose 50%) 25 ml Q30M PRN IV Hypoglycemia 05/17/19 19:45 06/16/19 19:44 Dextrose (Dextrose 50%) 50 ml Q30M PRN IV Hypoglycemia 05/17/19 20:00 06/16/19 19:59 Docusate Sodium (Colace) 100 mg THREE TIMES A DAY NG 05/18/19 13:00 06/17/19 12:59 Heparin Sodium (Porcine) (Heparin 5000 units/ml) 5,000 units EVERY 12 HOURS SUBQ 05/17/19 21:00 06/16/19 20:59 05/18/19 21:01 Hydralazine HCl (Apresoline) 10 mg Q6H PRN GT For High Blood Pressure 05/17/19 19:45 06/16/19 19:44 Insulin Aspart (NovoLOG) Q6HR SUBQ 05/18/19 00:00 06/16/19 20:59 05/19/19 05:33 Lansoprazole (Prevacid) 30 mg BID GT 05/18/19 18:00 06/17/19 17:59 05/18/19 18:24 Lorazepam (Ativan 2mg/ml 1ml) 2 mg Q2H PRN IV For Anxiety 05/17/19 19:45 05/24/19 19:44 Metoprolol Tartrate (Lopressor) 25 mg EVERY 12 HOURS GT 05/17/19 21:00 06/16/19 20:59 05/18/19 21:00 Morphine Sulfate (Morphine Sulfate) 4 mg Q4H PRN IVP Severe Pain (Pain Scale 7-10) 05/17/19 19:45 05/24/19 19:44 Ondansetron HCl (Zofran) 4 mg Q6H PRN IVP Nausea & Vomiting 05/17/19 19:45 06/16/19 19:44 Piperacillin Sod/ Tazobactam Sod 3.375 gm/Sodium Chloride 110 ml @ 27.5 mls/hr Q8HR@0000,0800,1600 IVPB 05/18/19 16:00 05/25/19 15:59 05/19/19 00:05 Polyethylene Glycol (Miralax) 17 gm DAILYPRN PRN ORAL Constipation 05/17/19 19:45 06/16/19 19:44 Sodium Chloride 1,000 ml @ 75 mls/hr [id number] IV 05/18/19 12:00 06/16/19 11:59 05/19/19 00:46 Sucralfate (Carafate) 1 gm Q6HR GT 05/18/19 12:00 06/17/19 11:59 05/19/19 05:32 Vancomycin HCl (Vanco rx to dose) 1 ea DAILY PRN MISC Per rx protocol 05/17/19 20:00 8/21/19 19:59 Assessment/Plan Assessment/Plan: Hematology Consult Note REQ MD: Sudhakar Keating DOS: 05/19/19 RFC: Anemia eval HPI 79 y/o F with hx of Dm2, chronic resp failure s/p tarch/vent dependant, CAD, dysphagia s/p PEG, PNA, CKD, pHTN, CVA w/ R hemiplegia, HTN, nonverbal, SNF resident presented to ED on 05/17 for evaluation of anemia, REMY. Noted to recently discharged to [facility] and was admitted recently. No reported fever/chills. Of note, patient was admitted here from 04/13-05/10/19 with SOB, sepsis. Was treated for PNA. Allergies: No Known Allergies (Unverified , 04/12/19) Medication History Albuterol Sulfate* (Albuterol Sulfate Hhn*), 3 ML INH Q6H, (Reported) Ascorbic Acid* (Vitamin C*), 500 MG GT DAILY, (Reported) Clopidogrel Bisulfate* (Plavix*), 75 MG GT DAILY, (Reported) Docusate Sodium (Docusate Sodium), 100 MG GT DAILY, (Reported) Epoetin Bandar (Epogen), 10,000 UNIT SUBQ 3XW, (Reported) Ferrous Sulfate* (Ferrous Sulfate*), 330 MG GT DAILY, (Reported) Furosemide* (Lasix*), 40 MG GT DAILY, (Reported) Insulin Glargine (Lantus), 20 SUBQ BEDTIME, (Reported) Metoprolol Tartrate* (Metoprolol Tartrate*), 25 MG GT EVERY 12 HOURS, (Reported) Multivitamin Liquid* (Multi-Delyn*), 15 ML GT DAILY, (Reported) Na Phos,M-B/Na Phos,Di-Ba* (Fleet Enema*), 133 ML RECTAL DAILY, (Reported) Nitrofurantoin Macrocrystal (Macrodantin*), 50 MG ORAL FOUR TIMES A DAY, ( Reported) Protein Supplement (Promod), 30 ML GT DAILY, (Reported) Zinc Sulfate (Zinc Sulfate*), 220 MG GT DAILY, (Reported) Zinc Sulfate (Zinc Sulfate*), 220 MG GT DAILY, (Reported) Scheduled PRN Acetaminophen 160MG/5ML* (Acetaminophen*), 20 ML GT Q4HR PRN for Mild Pain/Temp > 100.5, (Reported) Bisacodyl (Dulcolax), 10 MG RC DAILY PRN for Constipation, (Reported) Hydralazine Hcl* (Hydralazine Hcl*), 10 MG GT EVERY 6 HOURS PRN for For High Blood Pressure, (Reported) Magnesium Hydroxide* (Milk Of Magnesia*), 30 ML GT QHS PRN for Constipation, ( Reported) Miscellaneous Medications Insulin Aspart (Novolog), 100 UNIT SQ, (Reported) Patient History Healthcare decision maker Cezar Sage Resuscitation status Full Code Pmhx: as above Shx: Denies: smoking, alcohol use, drug use Fhx: non contributory ROS: negative except mentioned in HPI Physical Exam General Appearance: WD/WN, no apparent distress Neck: non-tender, normal alignment ++ trach Respiratory/Chest: chest wall non-tender, lungs clear Breasts: no masses Cardiovascular/Chest: normal rate, no gallop/murmur Abdomen: normal BSs ++ peg Extremities: normal range of motion Last 24 Hour Vital Signs Date Time Temp Pulse Resp B/P (MAP) Pulse Ox O2 Delivery O2 Flow Rate FiO2 05/18/19 12:00 45 05/18/19 12:00 97.7 75 18 147/86 (106) 100 05/18/19 11:15 75 16 45 05/18/19 09:25 75 16 45 05/18/19 08:51 78 151/68 05/18/19 08:00 45 05/18/19 08:00 97.7 78 16 151/68 (95) 100 05/18/19 08:00 Mechanical Ventilator 05/18/19 07:52 79 05/18/19 07:13 77 16 45 05/18/19 05:00 76 16 45 05/18/19 04:00 98.0 69 21 139/70 (93) 100 05/18/19 04:00 70 05/18/19 04:00 45 05/18/19 04:00 Mechanical Ventilator 05/18/19 03:10 81 17 45 05/18/19 01:15 72 16 45 05/18/19 00:00 Mechanical Ventilator 05/18/19 00:00 98.1 74 21 136/74 (94) 100 05/17/19 23:49 71 05/17/19 23:12 76 16 45 05/17/19 21:14 82 16 45 05/17/19 21:14 72 127/71 05/17/19 20:00 98.8 99 21 127/71 (89) 100 05/17/19 20:00 Mechanical Ventilator 05/17/19 20:00 45 05/17/19 20:00 80 05/17/19 19:40 85 16 99 Mechanical Ventilator 45 05/17/19 19:40 85 16 45 05/17/19 18:33 45 05/17/19 18:15 97.7 95 21 152/92 (112) 97 05/17/19 18:00 104 05/17/19 17:45 98.4 90 20 135/75 100 Mechanical Ventilator 45 05/17/19 17:38 85 21 45 05/17/19 17:35 97.8 82 18 167/81 100 Mechanical Ventilator 45 05/17/19 16:59 45 05/17/19 16:35 97.3 82 24 161/81 100 Mechanical Ventilator 45 05/17/19 15:40 85 24 Mechanical Ventilator 45 05/17/19 15:39 86 24 45 05/17/19 15:37 86 24 100 Mechanical Ventilator 45 05/17/19 15:34 97.2 78 18 168/78 96 Mechanical Ventilator 45 05/17/19 15:04 97.3 68 18 125/78 (94) 96 Trach Collar Intake and Output 05/17/19 05/18/19 19:00 07:00 Intake Total 1500 ml 2090.000 ml Balance 1500 ml 2090.000 ml Intake IV Total 1500 ml 1830.000 ml Tube Feeding 260 ml # Voids 2 3 # Bowel Movements 2 4 Laboratory Tests Test 05/17/19 16:15 05/17/19 16:20 05/17/19 22:33 05/18/19 04:59 White Blood Count 8.8 K/UL (4.8-10.8) 9.5 K/UL (4.8-10.8) Red Blood Count 2.93 M/UL (4.20-5.40) L 2.73 M/UL (4.20-5.40) L Hemoglobin 8.5 G/DL (12.0-16.0) L 8.0 G/DL (12.0-16.0) L Hematocrit 27.6 % (37.0-47.0) L 26.0 % (37.0-47.0) L Mean Corpuscular Volume 94 FL (80-99) 95 FL (80-99) Mean Corpuscular Hemoglobin 29.2 PG (27.0-31.0) 29.2 PG (27.0-31.0) Mean Corpuscular Hemoglobin Concent 31.0 G/DL (32.0-36.0) L 30.6 G/DL (32.0-36.0) L Red Cell Distribution Width 18.0 % (11.6-14.8) H 18.0 % (11.6-14.8) H Platelet Count 217 K/UL (150-450) 207 K/UL (150-450) Mean Platelet Volume 6.9 FL (6.5-10.1) 7.3 FL (6.5-10.1) Neutrophils (%) (Auto) 74.9 % (45.0-75.0) 69.7 % (45.0-75.0) Lymphocytes (%) (Auto) 16.7 % (20.0-45.0) L 22.1 % (20.0-45.0) Monocytes (%) (Auto) 2.9 % (1.0-10.0) 3.9 % (1.0-10.0) Eosinophils (%) (Auto) 4.8 % (0.0-3.0) H 3.7 % (0.0-3.0) H Basophils (%) (Auto) 0.9 % (0.0-2.0) 0.7 % (0.0-2.0) Prothrombin Time 14.8 SEC (9.30-11.50) H Prothromb Time International Ratio 1.4 (0.9-1.1) H Activated Partial Thromboplast Time 45 SEC (23-33) H Sodium Level 146 MMOL/L (136-145) H 145 MMOL/L (136-145) Potassium Level 4.3 MMOL/L (3.5-5.1) 4.7 MMOL/L (3.5-5.1) Chloride Level 111 MMOL/L (98-107) H 110 MMOL/L (98-107) H Carbon Dioxide Level 24 MMOL/L (21-32) 24 MMOL/L (21-32) Anion Gap 11 mmol/L (5-15) 11 mmol/L (5-15) Blood Urea Nitrogen 72 mg/dL (7-18) H 70 mg/dL (7-18) H Creatinine 1.5 MG/DL (0.55-1.30) H 1.4 MG/DL (0.55-1.30) H Estimat Glomerular Filtration Rate mL/min (>60) mL/min (>60) Glucose Level 89 MG/DL (74-106) 76 MG/DL (74-106) Calcium Level 8.6 MG/DL (8.5-10.1) 8.7 MG/DL (8.5-10.1) Total Bilirubin 0.4 MG/DL (0.2-1.0) Aspartate Amino Transf (AST/SGOT) 31 U/L (15-37) Alanine Aminotransferase (ALT/SGPT) 12 U/L (12-78) Alkaline Phosphatase 154 U/L (46-116) H Total Protein 6.6 G/DL (6.4-8.2) Albumin 1.5 G/DL (3.4-5.0) L 1.5 G/DL (3.4-5.0) L Globulin 5.1 g/dL Albumin/Globulin Ratio 0.3 (1.0-2.7) L Lipase 89 U/L (73-393) Uric Acid 6.6 MG/DL (2.6-7.2) Total Creatine Kinase 21 U/L (26-308) L Urine Color Pale yellow Urine Appearance Clear Urine pH 6 (4.5-8.0) Urine Specific [place] 1.010 (1.005-1.035) Urine Protein 3+ (NEGATIVE) H Urine Glucose (UA) Negative (NEGATIVE) Urine Ketones Negative (NEGATIVE) Urine Blood Negative (NEGATIVE) Urine Nitrite Negative (NEGATIVE) Urine Bilirubin Negative (NEGATIVE) Urine Urobilinogen Normal MG/DL (0.0-1.0) Urine Leukocyte Esterase Negative (NEGATIVE) Urine RBC 0-2 /HPF (0 - 2) Urine WBC 0 /HPF (0 - 2) Urine Squamous Epithelial Cells Few /LPF (NONE/OCC) Urine Bacteria Few /HPF (NONE) Urine Eosinophils None seen (NONE SEEN) Urine Osmolality 435 mOsm/kg (429-449) Urine Random Creatinine Pending Urine Random Microalbumin Pending Urine Random Sodium 75 mmol/L (20-110) Urine Microalbumin/Creatinine Ratio Pending Hemoglobin A1c 6.6 % (4.3-6.0) H Phosphorus Level 4.0 MG/DL (2.5-4.9) Iron Level 34 ug/dL (50-175) L Total Iron Binding Capacity 142 ug/dL (250-450) L Percent Iron Saturation 24 % (15-50) Unsaturated Iron Binding 108 ug/dL (112-346) L Ferritin 1541 NG/ML (8-388) H Vitamin B12 Level 974 PG/ML (193-986) Folate 17.2 NG/ML (8.6-58.9) Random Vancomycin Level 18.4 ug/mL Microbiology Date/Time Source Procedure Growth Status 05/17/19 20:22 Sputum Gram Stain - Final Resulted 05/17/19 20:22 Sputum Sputum Culture Pending Resulted Height (Feet): 5 Height (Inches): 5.00 Weight (Pounds): 200 Medications Current Medications Medications (Trade) Dose Ordered Sig/Kenisha Route PRN Reason Start Time Stop Time Status Last Admin Dose Admin Acetaminophen (Tylenol) 650 mg Q4H PRN GT FEVER 05/17/19 19:45 06/16/19 19:44 Albuterol/ Ipratropium (Albuterol/ Ipratropium) 3 ml Q4H PRN HHN Shortness of Breath 05/17/19 19:45 05/22/19 19:44 Clopidogrel Bisulfate (Plavix) 75 mg DAILY GT 05/18/19 09:00 06/17/19 08:59 05/18/19 08:51 Dextrose (Dextrose 50%) 25 ml Q30M PRN IV Hypoglycemia 05/17/19 19:45 06/16/19 19:44 Dextrose (Dextrose 50%) 50 ml Q30M PRN IV Hypoglycemia 05/17/19 20:00 06/16/19 19:59 Docusate Sodium (Colace) 100 mg THREE TIMES A DAY NG 05/18/19 13:00 06/17/19 12:59 Heparin Sodium (Porcine) (Heparin 5000 units/ml) 5,000 units EVERY 12 HOURS SUBQ 05/17/19 21:00 06/16/19 20:59 05/18/19 08:53 Hydralazine HCl (Apresoline) 10 mg Q6H PRN GT For High Blood Pressure 05/17/19 19:45 06/16/19 19:44 Insulin Aspart (NovoLOG) Q6HR SUBQ 05/18/19 00:00 06/16/19 20:59 Lansoprazole (Prevacid) 30 mg BID GT 05/18/19 18:00 06/17/19 17:59 Lorazepam (Ativan 2mg/ml 1ml) 2 mg Q2H PRN IV For Anxiety 05/17/19 19:45 05/24/19 19:44 Metoprolol Tartrate (Lopressor) 25 mg EVERY 12 HOURS GT 05/17/19 21:00 06/16/19 20:59 05/18/19 08:51 Morphine Sulfate (Morphine Sulfate) 4 mg Q4H PRN IVP Severe Pain (Pain Scale 7-10) 05/17/19 19:45 05/24/19 19:44 Ondansetron HCl (Zofran) 4 mg Q6H PRN IVP Nausea & Vomiting 05/17/19 19:45 06/16/19 19:44 Polyethylene Glycol (Miralax) 17 gm DAILYPRN PRN ORAL Constipation 05/17/19 19:45 06/16/19 19:44 Sodium Chloride 1,000 ml @ 75 mls/hr [id number] IV 05/18/19 12:00 06/16/19 11:59 05/18/19 12:21 Sucralfate (Carafate) 1 gm Q6HR GT 05/18/19 12:00 06/17/19 11:59 05/18/19 12:20 Vancomycin HCl (Vanco rx to dose) 1 ea DAILY PRN MISC Per rx protocol 05/17/19 20:00 06/16/19 19:59 Vancomycin HCl 1 gm/Sodium Chloride 275 ml @ 183.708 mls/hr ONCE IVPB 05/18/19 21:00 05/18/19 22:00 Assessment/Plan: # Anemia of chronic disease likely multifactorial process, in the past has had anemia as well --> w/u reveals ferritin is >1500, esr and crp are elevated --> on abx at this time, ID recs as needed --> smear has been reviewed, no schistocytes noted --> monitor for bleed, transfuse with 1 unit today --> hgb goal >7 # Pulmonary infiltrates vs pulmonary edema hx of trach --> CXR: Excessive bilateral diffuse infiltrates versus edema, increased from prior study of 05/05/2019 --> on vanc iv and zosyn # REMY on CKD --> per renal recs # Recent PNA, s/p Rx # HyperGlycemia / DM 24 H urine protein check 2.4 gram # Right Esvin due to CVA # HTN --> sbo goal <140 # chronic resp failure s/p trach/vent dependant # dysphagia s/p PEG # nonverbal # SNF resident Greatly appreciate consultation! Steven Norton MD May 19, 2019 06:35
--- NOTE | 2019-05-19 07:04 | NUR ---
RESPIRATORY NOTE: received pt on current vent settings, trached with shiley 8, placed midline and secured via trach guard. no redness or skin breakdown visible around neck/stoma area. pt in no resp distress at this time. alarms are set and audible. will cont to monitor throughout the day.
--- NOTE | 2019-05-19 07:15 | NUR ---
HAND-OFF: Report given to HORTENCIA Barajas. No distress noted at this time.
--- NOTE | 2019-05-19 07:19 | NUR ---
NURSE NOTES: received patient report from syed schmidt. patient is on bed awake, with the arcade games mechanic for blood draw. on vent at prescribed rate. no acute distress noted. bed is low and locked for safety. will follow plan of care.
[2019-05-19 08:00] VITALS: BP 111/73
[2019-05-19] MEDS: Docusate 100mg/10ml Liq NG SCH ×3 (08:08→17:30)
[2019-05-19] MEDS: Metoprolol 25mg tab GT SCH ×2 (08:09→20:32)
[2019-05-19] MEDS: Heparin 5000 units/ml inj SUBQ SCH ×2 (08:11→20:33)
--- NOTE | 2019-05-19 08:30 | NUR ---
NURSE NOTES: attempted to call family membet to get a consent for blood transfusion but family member is not picking up. will attempt to call again later. dr tamez was informed. will continue to monitor.
--- NOTE | 2019-05-19 09:06 | NUR ---
NURSE NOTES: dr tamez called back regarding blood transfusion, acknowledged the report. no new orders received.will continue to monitor.
--- NOTE | 2019-05-19 09:31 | General Progress Note ---
Assessment/Plan Problem List: (1) Chronic respiratory failure ICD Codes: J96.10 - Chronic respiratory failure, unspecified whether with hypoxia or hypercapnia SNOMED: 34078301 (2) History of CVA (cerebrovascular accident) ICD Codes: Z86.73 - Personal history of transient ischemic attack (TIA), and cerebral infarction without residual deficits SNOMED: 043734233 (3) Diabetes mellitus ICD Codes: E11.9 - Type 2 diabetes mellitus without complications SNOMED: 34640169 (4) Hypertensive heart disease ICD Codes: I11.9 - Hypertensive heart disease without heart failure SNOMED: 89878113 (5) Anemia in chronic kidney disease (CKD) ICD Codes: N18.9 - Chronic kidney disease, unspecified; D63.1 - Anemia in chronic kidney disease SNOMED: 676564309 Qualifiers: Qualified Codes: N18.9 - Chronic kidney disease, unspecified; D63.1 - Anemia in chronic kidney disease (6) Renal failure (ARF), acute on chronic ICD Codes: N17.9 - Acute kidney failure, unspecified; N18.9 - Chronic kidney disease, unspecified SNOMED: 518659875 Qualifiers: Qualified Codes: N17.9 - Acute kidney failure, unspecified; N18.9 - Chronic kidney disease, unspecified Status: unchanged Assessment/Plan: vent abx trans fuse prn gi heme eval cbc bmp am ltach eval Subjective Constitutional: Reports: weakness Allergies: Coded Allergies: No Known Allergies (Unverified , 04/12/19) All Systems: reviewed and negative except above Subjective trach vent altered Objective Last 24 Hour Vital Signs Date Time Temp Pulse Resp B/P (MAP) Pulse Ox O2 Delivery O2 Flow Rate FiO2 05/19/19 08:35 69 18 40 05/19/19 08:23 40 05/19/19 08:09 75 111/73 05/19/19 08:00 99.0 75 16 111/73 (86) 100 05/19/19 08:00 Mechanical Ventilator 05/19/19 08:00 67 05/19/19 07:00 66 18 40 05/19/19 04:47 67 16 40 05/19/19 04:00 Mechanical Ventilator 05/19/19 04:00 97.9 73 16 125/75 (92) 100 05/19/19 04:00 45 05/19/19 03:23 64 05/19/19 02:34 64 16 40 05/19/19 00:54 63 16 40 05/19/19 00:00 66 05/19/19 00:00 Mechanical Ventilator 05/19/19 00:00 98.1 65 16 121/63 (82) 100 05/18/19 22:57 65 16 40 05/18/19 21:02 69 16 45 05/18/19 21:00 69 137/76 05/18/19 20:00 45 05/18/19 20:00 Mechanical Ventilator 05/18/19 20:00 69 05/18/19 20:00 97.9 73 16 137/76 (96) 100 05/18/19 19:28 74 16 45 05/18/19 17:02 61 16 45 05/18/19 16:00 72 05/18/19 16:00 Mechanical Ventilator 05/18/19 16:00 45 05/18/19 16:00 97.9 74 16 156/89 (111) 100 05/18/19 15:20 71 16 45 05/18/19 13:20 73 16 45 05/18/19 12:00 Mechanical Ventilator 05/18/19 12:00 45 05/18/19 12:00 97.7 75 18 147/86 (106) 100 05/18/19 11:43 75 05/18/19 11:15 75 16 45 Intake and Output 05/18/19 05/19/19 19:00 07:00 Intake Total 1946.667 ml 1800.0 ml Output Total 400 ml 400 ml Balance 1546.667 ml 1400.0 ml Intake Free Water 160 ml IV Total 1376.667 ml 1010.0 ml Tube Feeding 390 ml 630 ml Other 180 ml Output Urine Total 400 ml 400 ml # Voids 1 # Bowel Movements 2 2 Laboratory Tests 05/19/19 03:37: White Blood Count 7.8, Red Blood Count 2.64L, Hemoglobin 7.6L, Hematocrit 25.1L , Mean Corpuscular Volume 95, Mean Corpuscular Hemoglobin 28.9, Mean Corpuscular Hemoglobin Concent 30.4L, Red Cell Distribution Width 17.9H, Platelet Count 201, Mean Platelet Volume 7.9, Neutrophils (%) (Auto) , Lymphocytes (%) (Auto) , Monocytes (%) (Auto) , Eosinophils (%) (Auto) , Basophils (%) (Auto) , Sodium Level 141, Potassium Level 4.8, Chloride Level 109H, Carbon Dioxide Level 23, Anion Gap 9, Blood Urea Nitrogen 64H, Creatinine 1.3, Estimat Glomerular Filtration Rate , Glucose Level 111H, Uric Acid 6.0, Calcium Level 8.0L, Phosphorus Level 3.8, Magnesium Level 2.0, Total Bilirubin 0.4, Aspartate Amino Transf (AST/SGOT) 28, Alanine Aminotransferase (ALT/SGPT) 8L, Alkaline Phosphatase 117H, C-Reactive Protein, Quantitative 14.2H, Pro-B- Type Natriuretic Peptide > [id number], Total Protein 6.4, Albumin 1.4L, Globulin 5.0 , Albumin/Globulin Ratio 0.3L, Triglycerides Level 178H, Cholesterol Level 71, LDL Cholesterol 41, HDL Cholesterol 12L, Cholesterol/HDL Ratio 5.9H 05/19/19 05:15: Stool Occult Blood [Pending] 05/19/19 07:10: Albumin/Globulin Ratio [Pending], Prothrombin Time 10.9, Prothromb Time International Ratio 1.0, Total Protein (PEP) [Pending], Albumin (PEP) [Pending] , Globulin (PEP) [Pending], [id number] [Pending], [id number] [ Pending], Beta Globulins [Pending], Beta Gamma Globulin [Pending], PEP Abnormal Protein Bands [Pending], Protein Electrophoresis Interpret [Pending] Height (Feet): 5 Height (Inches): 5.00 Weight (Pounds): 204 General Appearance: lethargic EENT: normal ENT inspection Neck: normal alignment Cardiovascular: normal peripheral pulses, normal rate, regular rhythm Respiratory/Chest: chest wall non-tender, lungs clear, normal breath sounds Abdomen: normal bowel sounds, non tender, soft Extremities: normal inspection Edema: no edema noted Arm (L), no edema noted Arm (R), no edema noted Leg (L), no edema noted Leg (R), no edema noted Pedal (L), no edema noted Pedal (R), no edema noted Generalized Neurologic: motor weakness Skin: normal pigmentation, warm/dry Jama Keating DO May 19, 2019 09:31
--- NOTE | 2019-05-19 10:03 | GI Progress Note ---
Assessment/Plan Problems: (1) G tube feedings ICD Codes: Z93.1 - Gastrostomy status SNOMED: 903669126, 019396952, 998261746 (2) History of CVA (cerebrovascular accident) ICD Codes: Z86.73 - Personal history of transient ischemic attack (TIA), and cerebral infarction without residual deficits SNOMED: 914132677 (3) Diabetes mellitus ICD Codes: E11.9 - Type 2 diabetes mellitus without complications SNOMED: 52298779 (4) Anemia in chronic kidney disease (CKD) ICD Codes: N18.9 - Chronic kidney disease, unspecified; D63.1 - Anemia in chronic kidney disease SNOMED: 206681137 Qualifiers: Qualified Codes: N18.9 - Chronic kidney disease, unspecified; D63.1 - Anemia in chronic kidney disease Status: unchanged Status Narrative Discussed with Dr. Gentile. Assessment/Plan RECOMMENDATIONS: 1. Continue tube feeding. 2. Check stool for Clostridium difficile. 3. Monitor blood count. 4. Elevate head of bed. 5. Proton pump inhibitor. 6. Check stool for occult blood. 7. Further recommendations to follow. The patient was seen and examined at bedside and all new and available data was reviewed in the patients chart. I agree with the above findings, impression and plan. (Patient seen earlier today. Signature stamp does not reflect patient encounter time.). - Darron Gentile MD Subjective Subjective limited Objective Last 24 Hour Vital Signs Date Time Temp Pulse Resp B/P (MAP) Pulse Ox O2 Delivery O2 Flow Rate FiO2 05/19/19 08:35 69 18 40 05/19/19 08:23 40 05/19/19 08:09 75 111/73 05/19/19 08:00 99.0 75 16 111/73 (86) 100 05/19/19 08:00 Mechanical Ventilator 05/19/19 08:00 67 05/19/19 07:00 66 18 40 05/19/19 04:47 67 16 40 05/19/19 04:00 Mechanical Ventilator 05/19/19 04:00 97.9 73 16 125/75 (92) 100 05/19/19 04:00 45 05/19/19 03:23 64 05/19/19 02:34 64 16 40 05/19/19 00:54 63 16 40 05/19/19 00:00 66 05/19/19 00:00 Mechanical Ventilator 05/19/19 00:00 98.1 65 16 121/63 (82) 100 05/18/19 22:57 65 16 40 05/18/19 21:02 69 16 45 05/18/19 21:00 69 137/76 05/18/19 20:00 45 05/18/19 20:00 Mechanical Ventilator 05/18/19 20:00 69 05/18/19 20:00 97.9 73 16 137/76 (96) 100 05/18/19 19:28 74 16 45 05/18/19 17:02 61 16 45 05/18/19 16:00 72 05/18/19 16:00 Mechanical Ventilator 05/18/19 16:00 45 05/18/19 16:00 97.9 74 16 156/89 (111) 100 05/18/19 15:20 71 16 45 05/18/19 13:20 73 16 45 05/18/19 12:00 Mechanical Ventilator 05/18/19 12:00 45 05/18/19 12:00 97.7 75 18 147/86 (106) 100 05/18/19 11:43 75 05/18/19 11:15 75 16 45 Intake and Output 05/18/19 05/19/19 19:00 07:00 Intake Total 1946.667 ml 1800.0 ml Output Total 400 ml 400 ml Balance 1546.667 ml 1400.0 ml Intake Free Water 160 ml IV Total 1376.667 ml 1010.0 ml Tube Feeding 390 ml 630 ml Other 180 ml Output Urine Total 400 ml 400 ml # Voids 1 # Bowel Movements 2 2 Laboratory Tests Test 05/19/19 03:37 05/19/19 05:15 05/19/19 07:10 White Blood Count 7.8 K/UL (4.8-10.8) Red Blood Count 2.64 M/UL (4.20-5.40) L Hemoglobin 7.6 G/DL (12.0-16.0) L Hematocrit 25.1 % (37.0-47.0) L Mean Corpuscular Volume 95 FL (80-99) Mean Corpuscular Hemoglobin 28.9 PG (27.0-31.0) Mean Corpuscular Hemoglobin Concent 30.4 G/DL (32.0-36.0) L Red Cell Distribution Width 17.9 % (11.6-14.8) H Platelet Count 201 K/UL (150-450) Mean Platelet Volume 7.9 FL (6.5-10.1) Neutrophils (%) (Auto) % (45.0-75.0) Lymphocytes (%) (Auto) % (20.0-45.0) Monocytes (%) (Auto) % (1.0-10.0) Eosinophils (%) (Auto) % (0.0-3.0) Basophils (%) (Auto) % (0.0-2.0) Sodium Level 141 MMOL/L (136-145) Potassium Level 4.8 MMOL/L (3.5-5.1) Chloride Level 109 MMOL/L (98-107) H Carbon Dioxide Level 23 MMOL/L (21-32) Anion Gap 9 mmol/L (5-15) Blood Urea Nitrogen 64 mg/dL (7-18) H Creatinine 1.3 MG/DL (0.55-1.30) Estimat Glomerular Filtration Rate mL/min (>60) Glucose Level 111 MG/DL (74-106) H Uric Acid 6.0 MG/DL (2.6-7.2) Calcium Level 8.0 MG/DL (8.5-10.1) L Phosphorus Level 3.8 MG/DL (2.5-4.9) Magnesium Level 2.0 MG/DL (1.8-2.4) Total Bilirubin 0.4 MG/DL (0.2-1.0) Aspartate Amino Transf (AST/SGOT) 28 U/L (15-37) Alanine Aminotransferase (ALT/SGPT) 8 U/L (12-78) L Alkaline Phosphatase 117 U/L (46-116) H C-Reactive Protein, Quantitative 14.2 mg/dL (0.00-0.90) H Pro-B-Type Natriuretic Peptide > 54137 pg/mL (0-125) H Total Protein 6.4 G/DL (6.4-8.2) Albumin 1.4 G/DL (3.4-5.0) L Globulin 5.0 g/dL Albumin/Globulin Ratio 0.3 (1.0-2.7) L Pending Triglycerides Level 178 MG/DL (30-150) H Cholesterol Level 71 MG/DL (< 200) LDL Cholesterol 41 mg/dL (<100) HDL Cholesterol 12 MG/DL (40-60) L Cholesterol/HDL Ratio 5.9 (3.3-4.4) H Stool Occult Blood Pending Prothrombin Time 10.9 SEC (9.30-11.50) Prothromb Time International Ratio 1.0 (0.9-1.1) Total Protein (PEP) Pending Albumin (PEP) Pending Globulin (PEP) Pending Soyaq-9-Lzuurdumu Pending Ctmsf-8-Bwhdeuclq Pending Beta Globulins Pending Beta Gamma Globulin Pending PEP Abnormal Protein Bands Pending Protein Electrophoresis Interpret Pending Height (Feet): 5 Height (Inches): 5.00 Weight (Pounds): 204 General Appearance: no apparent distress Cardiovascular: normal rate Respiratory/Chest: no respiratory distress Abdominal Exam: normal bowel sounds, non tender, soft, GT site Aron Torres NP May 19, 2019 10:03
--- NOTE | 2019-05-19 10:23 | Pulmonolgy Critical Care Note ---
Critical Care - Asmt/Plan Problems: (1) Renal failure (ARF), acute on chronic (2) Anemia in chronic kidney disease (CKD) (3) Pulmonary hypertension (4) Nosocomial pneumonia (5) 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 (6) Hypertensive heart disease (7) Diabetes mellitus (8) Right hemiplegia (9) History of CVA (cerebrovascular accident) (10) G tube feedings Respiratory: monitor respiratory rate, adjust FIO2 Cardiac: continue to monitor HR/BP Renal: F/U I&O, keep IV fluid, check electrolytes Infectious Disease: check cultures, continue antibiotics Gastrointestinal: continue feedings/current rate Endocrine: monitor blood sugar Hematologic: monitor H/H, transfuse if hgb<8.5 Neurologic: PRN Morphine, keep patient comfortable Prophylaxis: Protonix Notes 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, 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, 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 Discussed with: nurses, consultants, rehabilitation caseworkersoftware product manager - Objective Last 24 Hour Vital Signs Date Time Temp Pulse Resp B/P (MAP) Pulse Ox O2 Delivery O2 Flow Rate FiO2 05/19/19 08:35 69 18 40 05/19/19 08:23 40 05/19/19 08:09 75 111/73 05/19/19 08:00 99.0 75 16 111/73 (86) 100 05/19/19 08:00 Mechanical Ventilator 05/19/19 08:00 67 05/19/19 07:00 66 18 40 05/19/19 04:47 67 16 40 05/19/19 04:00 Mechanical Ventilator 05/19/19 04:00 97.9 73 16 125/75 (92) 100 05/19/19 04:00 45 05/19/19 03:23 64 05/19/19 02:34 64 16 40 05/19/19 00:54 63 16 40 05/19/19 00:00 66 05/19/19 00:00 Mechanical Ventilator 05/19/19 00:00 98.1 65 16 121/63 (82) 100 05/18/19 22:57 65 16 40 05/18/19 21:02 69 16 45 05/18/19 21:00 69 137/76 05/18/19 20:00 45 05/18/19 20:00 Mechanical Ventilator 05/18/19 20:00 69 05/18/19 20:00 97.9 73 16 137/76 (96) 100 05/18/19 19:28 74 16 45 05/18/19 17:02 61 16 45 05/18/19 16:00 72 05/18/19 16:00 Mechanical Ventilator 05/18/19 16:00 45 05/18/19 16:00 97.9 74 16 156/89 (111) 100 05/18/19 15:20 71 16 45 05/18/19 13:20 73 16 45 05/18/19 12:00 Mechanical Ventilator 05/18/19 12:00 45 05/18/19 12:00 97.7 75 18 147/86 (106) 100 05/18/19 11:43 75 05/18/19 11:15 75 16 45 Status: awake Condition: critical HEENT: atraumatic Lungs: rales, rhonchi Heart: HR/BP stable Abdomen: soft Extremities: edema Decubiti: location Micro: Microbiology Date/Time Source Procedure Growth Status 05/17/19 20:22 Sputum Gram Stain - Final Resulted 05/17/19 20:22 Sputum Culture - Preliminary Gram Negative Norm Resulted 05/17/19 16:20 Nasal Nares MRSA Culture - Final NO METHICILLIN RESISTANT STAPH AUREUS... Complete 05/18/19 05:40 Stool Clostridium difficile Toxin Assay - Final Complete 05/17/19 16:20 Rectum VRE Culture - Final Enterococcus Faecium - Vre Resulted 05/17/19 16:20 Rectum Pending Resulted Accucheck: 119 Critical Care - Subjective ROS Limited/Unobtainable: Yes Condition: critical EKG Rhythm: Sinus Rhythm FI02: 40 Vent Support Breath Rate: 16 Vent Support Mode: AC Vent Tidal Volume: 500 Sputum Amount: Small PEEP: 5.0 PIP: 38 Tube Feeding Amount: 60 I&O: Intake and Output 05/18/19 05/19/19 19:00 07:00 Intake Total 1946.667 ml 1800.0 ml Output Total 400 ml 400 ml Balance 1546.667 ml 1400.0 ml Intake Free Water 160 ml IV Total 1376.667 ml 1010.0 ml Tube Feeding 390 ml 630 ml Other 180 ml Output Urine Total 400 ml 400 ml # Voids 1 # Bowel Movements 2 2 CXR: extensive infiltrate Labs: Laboratory Tests Test 05/19/19 03:37 05/19/19 05:15 05/19/19 07:10 White Blood Count 7.8 K/UL (4.8-10.8) Red Blood Count 2.64 M/UL (4.20-5.40) L Hemoglobin 7.6 G/DL (12.0-16.0) L Hematocrit 25.1 % (37.0-47.0) L Mean Corpuscular Volume 95 FL (80-99) Mean Corpuscular Hemoglobin 28.9 PG (27.0-31.0) Mean Corpuscular Hemoglobin Concent 30.4 G/DL (32.0-36.0) L Red Cell Distribution Width 17.9 % (11.6-14.8) H Platelet Count 201 K/UL (150-450) Mean Platelet Volume 7.9 FL (6.5-10.1) Neutrophils (%) (Auto) % (45.0-75.0) Lymphocytes (%) (Auto) % (20.0-45.0) Monocytes (%) (Auto) % (1.0-10.0) Eosinophils (%) (Auto) % (0.0-3.0) Basophils (%) (Auto) % (0.0-2.0) Sodium Level 141 MMOL/L (136-145) Potassium Level 4.8 MMOL/L (3.5-5.1) Chloride Level 109 MMOL/L (98-107) H Carbon Dioxide Level 23 MMOL/L (21-32) Anion Gap 9 mmol/L (5-15) Blood Urea Nitrogen 64 mg/dL (7-18) H Creatinine 1.3 MG/DL (0.55-1.30) Estimat Glomerular Filtration Rate mL/min (>60) Glucose Level 111 MG/DL (74-106) H Uric Acid 6.0 MG/DL (2.6-7.2) Calcium Level 8.0 MG/DL (8.5-10.1) L Phosphorus Level 3.8 MG/DL (2.5-4.9) Magnesium Level 2.0 MG/DL (1.8-2.4) Total Bilirubin 0.4 MG/DL (0.2-1.0) Aspartate Amino Transf (AST/SGOT) 28 U/L (15-37) Alanine Aminotransferase (ALT/SGPT) 8 U/L (12-78) L Alkaline Phosphatase 117 U/L (46-116) H C-Reactive Protein, Quantitative 14.2 mg/dL (0.00-0.90) H Pro-B-Type Natriuretic Peptide > 21000 pg/mL (0-125) H Total Protein 6.4 G/DL (6.4-8.2) Albumin 1.4 G/DL (3.4-5.0) L Globulin 5.0 g/dL Albumin/Globulin Ratio 0.3 (1.0-2.7) L Pending Triglycerides Level 178 MG/DL (30-150) H Cholesterol Level 71 MG/DL (< 200) LDL Cholesterol 41 mg/dL (<100) HDL Cholesterol 12 MG/DL (40-60) L Cholesterol/HDL Ratio 5.9 (3.3-4.4) H Stool Occult Blood Pending Prothrombin Time 10.9 SEC (9.30-11.50) Prothromb Time International Ratio 1.0 (0.9-1.1) Total Protein (PEP) Pending Albumin (PEP) Pending Globulin (PEP) Pending Fwvhj-7-Nrhnrvnyv Pending Cylzd-6-Xzirtihtf Pending Beta Globulins Pending Beta Gamma Globulin Pending PEP Abnormal Protein Bands Pending Protein Electrophoresis Interpret Pending Tony Springer MD May 19, 2019 10:23
--- NOTE | 2019-05-19 10:28 | NUR ---
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 99.0 HR 75 RR 16 B/P AC 16 TV 500 FIO2 40% PEEP 5 H/H 7.6/25.1 BUN 64 BNP>3500 IS: ZOSYN IV HEPARIN SUBC PREVACID GT STEP DOWN STATUS
--- NOTE | 2019-05-19 10:32 | NUR ---
CAMPUS COORDINATOR NOTES SPOKE WITH [employer] FROM [facility],TELEPHONE GIVEN AND FAXED.
--- NOTE | 2019-05-19 10:56 | NUR ---
NURSE NOTES: attempted to call eugene stuart (son) again for the 4th time but unable to answer the call. tried another number in the facesheet, mr aislinn kingsley (friend). per aislinn kingsley, eugene has a new telephone number but did not know it but he will try to get his number so that we could get a consent for blood transfusion. will continue to monitor,
--- NOTE | 2019-05-19 11:30 | NUR ---
Social Service Note CHELSEY located an alternative phone number for patient's son Cezar [phone]. CHELSEY left message to call nursing station. Number also provided to primary nurse. Will continue to monitor.
--- NOTE | 2019-05-19 11:55 | NUR ---
NURSE NOTES: spoke with erick knight @ [phone] regarding blood transfusion, per eugene he will be here in an hour. will get consent for blood transfusion when family member comes.
--- NOTE | 2019-05-19 14:00 | NUR ---
NURSE NOTES: blood transfusion started per protocol. VS taken and recorded. not in acute distress. no fever. will continue to monitor.
--- NOTE | 2019-05-19 14:27 | Infectious Diseases Prog Note ---
Assessment/Plan Assessment/Plan Assessment: Pulmonary infiltrates vs pulmonary edema -CXR: Excessive bilateral diffuse infiltrates versus edema, increased from prior study of 05/05/2019 -sp cx GNR Afebrile No leukocytosis REMY on CKD Anemia Recent PNA, s/p Rx HTN CVA with hemiplegia and is now not verbal CKD CAD Dm2 chronic resp failure s/p trach/vent dependant dysphagia s/p PEG PNA pHTN nonverbal SNF resident Plan: -Continue empiric Zosyn #2 pending sp cx -05/18 SP IV Vancomycin #3 -04/28/19 SP Cefepime #6 -04/22 SP Meropenem #5 -04/20 SP Vancomycin #8 - 04/18/19 S/P Cefepime #6 -f/u cx -Monitor CBC/CMP, temperatures -sp cx Thank you for this consultation. Will continue to follow along with you. Discussed with RN. Subjective Allergies: Coded Allergies: No Known Allergies (Unverified , 04/12/19) Subjective afebrile Cr improving no leukocytosis Objective Vital Signs Last 24 Hour Vital Signs Date Time Temp Pulse Resp B/P (MAP) Pulse Ox O2 Delivery O2 Flow Rate FiO2 05/19/19 12:36 71 20 40 05/19/19 12:00 40 05/19/19 12:00 Mechanical Ventilator 05/19/19 12:00 98.1 65 16 100 05/19/19 11:37 62 05/19/19 10:43 63 18 40 05/19/19 08:35 69 18 40 05/19/19 08:23 40 05/19/19 08:09 75 111/73 05/19/19 08:00 99.0 75 16 111/73 (86) 100 05/19/19 08:00 Mechanical Ventilator 05/19/19 08:00 67 05/19/19 07:00 66 18 40 05/19/19 04:47 67 16 40 05/19/19 04:00 Mechanical Ventilator 05/19/19 04:00 97.9 73 16 125/75 (92) 100 05/19/19 04:00 45 05/19/19 03:23 64 05/19/19 02:34 64 16 40 05/19/19 00:54 63 16 40 05/19/19 00:00 66 05/19/19 00:00 Mechanical Ventilator 05/19/19 00:00 98.1 65 16 121/63 (82) 100 05/18/19 22:57 65 16 40 05/18/19 21:02 69 16 45 05/18/19 21:00 69 137/76 05/18/19 20:00 45 05/18/19 20:00 Mechanical Ventilator 05/18/19 20:00 69 05/18/19 20:00 97.9 73 16 137/76 (96) 100 05/18/19 19:28 74 16 45 05/18/19 17:02 61 16 45 05/18/19 16:00 72 05/18/19 16:00 Mechanical Ventilator 05/18/19 16:00 45 05/18/19 16:00 97.9 74 16 156/89 (111) 100 05/18/19 15:20 71 16 45 Height (Feet): 5 Height (Inches): 5.00 Weight (Pounds): 204 Objective General Appearance: WD/WN, no apparent distress Lines, tubes and drains: trach, gtube HEENT: normocephalic, atraumatic Neck: non-tender, normal alignment Respiratory/Chest: chest wall non-tender, lungs clear Breasts: no masses Cardiovascular/Chest: normal rate, no gallop/murmur Abdomen: normal bowel sounds Extremities: normal range of motion Microbiology Date/Time Source Procedure Growth Status 05/17/19 20:22 Sputum Gram Stain - Final Resulted 05/17/19 20:22 Sputum Culture - Preliminary Gram Negative Norm Resulted 05/17/19 16:20 Nasal Nares MRSA Culture - Final NO METHICILLIN RESISTANT STAPH AUREUS... Complete 05/18/19 05:40 Stool Clostridium difficile Toxin Assay - Final Complete 05/17/19 16:20 Rectum VRE Culture - Final Enterococcus Faecium - Vre Resulted 05/17/19 16:20 Rectum Pending Resulted Laboratory Tests Test 05/19/19 03:37 05/19/19 05:15 05/19/19 07:10 White Blood Count 7.8 K/UL (4.8-10.8) Red Blood Count 2.64 M/UL (4.20-5.40) L Hemoglobin 7.6 G/DL (12.0-16.0) L Hematocrit 25.1 % (37.0-47.0) L Mean Corpuscular Volume 95 FL (80-99) Mean Corpuscular Hemoglobin 28.9 PG (27.0-31.0) Mean Corpuscular Hemoglobin Concent 30.4 G/DL (32.0-36.0) L Red Cell Distribution Width 17.9 % (11.6-14.8) H Platelet Count 201 K/UL (150-450) Mean Platelet Volume 7.9 FL (6.5-10.1) Neutrophils (%) (Auto) % (45.0-75.0) Lymphocytes (%) (Auto) % (20.0-45.0) Monocytes (%) (Auto) % (1.0-10.0) Eosinophils (%) (Auto) % (0.0-3.0) Basophils (%) (Auto) % (0.0-2.0) Sodium Level 141 MMOL/L (136-145) Potassium Level 4.8 MMOL/L (3.5-5.1) Chloride Level 109 MMOL/L (98-107) H Carbon Dioxide Level 23 MMOL/L (21-32) Anion Gap 9 mmol/L (5-15) Blood Urea Nitrogen 64 mg/dL (7-18) H Creatinine 1.3 MG/DL (0.55-1.30) Estimat Glomerular Filtration Rate mL/min (>60) Glucose Level 111 MG/DL (74-106) H Uric Acid 6.0 MG/DL (2.6-7.2) Calcium Level 8.0 MG/DL (8.5-10.1) L Phosphorus Level 3.8 MG/DL (2.5-4.9) Magnesium Level 2.0 MG/DL (1.8-2.4) Total Bilirubin 0.4 MG/DL (0.2-1.0) Aspartate Amino Transf (AST/SGOT) 28 U/L (15-37) Alanine Aminotransferase (ALT/SGPT) 8 U/L (12-78) L Alkaline Phosphatase 117 U/L (46-116) H C-Reactive Protein, Quantitative 14.2 mg/dL (0.00-0.90) H Pro-B-Type Natriuretic Peptide > 63105 pg/mL (0-125) H Total Protein 6.4 G/DL (6.4-8.2) Albumin 1.4 G/DL (3.4-5.0) L Globulin 5.0 g/dL Albumin/Globulin Ratio 0.3 (1.0-2.7) L Pending Triglycerides Level 178 MG/DL (30-150) H Cholesterol Level 71 MG/DL (< 200) LDL Cholesterol 41 mg/dL (<100) HDL Cholesterol 12 MG/DL (40-60) L Cholesterol/HDL Ratio 5.9 (3.3-4.4) H Stool Occult Blood Negative (NEGATIVE) Prothrombin Time 10.9 SEC (9.30-11.50) Prothromb Time International Ratio 1.0 (0.9-1.1) Total Protein (PEP) Pending Albumin (PEP) Pending Globulin (PEP) Pending Rdhnt-1-Mgqmcljfn Pending Dujoy-4-Xxrfqlbkg Pending Beta Globulins Pending Beta Gamma Globulin Pending PEP Abnormal Protein Bands Pending Protein Electrophoresis Interpret Pending Current Medications Medications (Trade) Dose Ordered Sig/Kenisha Route PRN Reason Start Time Stop Time Status Last Admin Dose Admin Acetaminophen (Tylenol) 650 mg Q4H PRN GT FEVER 05/17/19 19:45 06/16/19 19:44 Albuterol/ Ipratropium (Albuterol/ Ipratropium) 3 ml Q4H PRN HHN Shortness of Breath 05/17/19 19:45 05/22/19 19:44 Clopidogrel Bisulfate (Plavix) 75 mg DAILY GT 05/18/19 09:00 06/17/19 08:59 05/19/19 08:09 Dextrose (Dextrose 50%) 25 ml Q30M PRN IV Hypoglycemia 05/17/19 19:45 06/16/19 19:44 Dextrose (Dextrose 50%) 50 ml Q30M PRN IV Hypoglycemia 05/17/19 20:00 06/16/19 19:59 Docusate Sodium (Colace) 100 mg THREE TIMES A DAY NG 05/18/19 13:00 06/17/19 12:59 05/19/19 08:08 Heparin Sodium (Porcine) (Heparin 5000 units/ml) 5,000 units EVERY 12 HOURS SUBQ 05/17/19 21:00 06/16/19 20:59 05/19/19 08:11 Hydralazine HCl (Apresoline) 10 mg Q6H PRN GT For High Blood Pressure 05/17/19 19:45 06/16/19 19:44 Insulin Aspart (NovoLOG) Q6HR SUBQ 05/18/19 00:00 06/16/19 20:59 05/19/19 12:13 Lansoprazole (Prevacid) 30 mg BID GT 05/18/19 18:00 06/17/19 17:59 05/19/19 08:09 Lorazepam (Ativan 2mg/ml 1ml) 2 mg Q2H PRN IV For Anxiety 05/17/19 19:45 05/24/19 19:44 Metoprolol Tartrate (Lopressor) 25 mg EVERY 12 HOURS GT 05/17/19 21:00 06/16/19 20:59 05/19/19 08:09 Morphine Sulfate (Morphine Sulfate) 4 mg Q4H PRN IVP Severe Pain (Pain Scale 7-10) 05/17/19 19:45 05/24/19 19:44 Ondansetron HCl (Zofran) 4 mg Q6H PRN IVP Nausea & Vomiting 05/17/19 19:45 06/16/19 19:44 Piperacillin Sod/ Tazobactam Sod 3.375 gm/Sodium Chloride 110 ml @ 27.5 mls/hr Q8HR@0000,0800,1600 IVPB 05/18/19 16:00 05/25/19 15:59 05/19/19 07:48 Polyethylene Glycol (Miralax) 17 gm DAILYPRN PRN ORAL Constipation 05/17/19 19:45 06/16/19 19:44 Sucralfate (Carafate) 1 gm Q6HR GT 05/18/19 12:00 06/17/19 11:59 05/19/19 12:12 Vancomycin HCl (Vanco rx to dose) 1 ea DAILY PRN MISC Per rx protocol 05/17/19 20:00 06/16/19 19:59 Cora Baer M.D. May 19, 2019 14:27
--- NOTE | 2019-05-19 14:50 | NUR ---
*-* INSURANCE *-* AVAILABLE CLINICALS AND REVIEWS HAVE BEEN FAXED TO: [facility]# [id number] f:[phone]
--- NOTE | 2019-05-19 14:55 | NUR ---
NURSE NOTES: VS taken afetr 15 minutes of blood transfusion. no reaction so far. patient remain stable. not in acute distress. negative fever.will continue to monitor.
--- NOTE | 2019-05-19 15:27 | NUR ---
HAND-OFF: Report given to dea schmidt.
--- NOTE | 2019-05-19 15:28 | Nephrology Progress Note ---
Assessment/Plan Problem List: (1) Renal failure (ARF), acute on chronic (2) Anemia in chronic kidney disease (CKD) (3) Diabetes mellitus (4) G tube feedings (5) Chronic respiratory failure Assessment Acute on chronic renal failure- Anemia s/p Pneumonia / respiratory failure has trchon 7/8 s/p Sepsis HyperGlycemia / DM 24 H urine protein check 2.4 gram Right Esvin due to CVA HTN Plan BP and BS control urine studies slow hydrate previous kidney MAIKEL results noted: No Spring previous 2D echo Noted visualized except distal setum and inferiro wall hypokinesis Left ventricular ejection fraction estimated to be 55-60 %. avoid Nephrotoxics per orders Subjective ROS Limited/Unobtainable: No Objective Objective Last 24 Hour Vital Signs Date Time Temp Pulse Resp B/P (MAP) Pulse Ox O2 Delivery O2 Flow Rate FiO2 05/19/19 12:36 71 20 40 05/19/19 12:00 40 05/19/19 12:00 Mechanical Ventilator 05/19/19 12:00 98.1 65 16 100 05/19/19 11:37 62 05/19/19 10:43 63 18 40 05/19/19 08:35 69 18 40 05/19/19 08:23 40 05/19/19 08:09 75 111/73 05/19/19 08:00 99.0 75 16 111/73 (86) 100 05/19/19 08:00 Mechanical Ventilator 05/19/19 08:00 67 05/19/19 07:00 66 18 40 05/19/19 04:47 67 16 40 05/19/19 04:00 Mechanical Ventilator 05/19/19 04:00 97.9 73 16 125/75 (92) 100 05/19/19 04:00 45 05/19/19 03:23 64 05/19/19 02:34 64 16 40 05/19/19 00:54 63 16 40 05/19/19 00:00 66 05/19/19 00:00 Mechanical Ventilator 05/19/19 00:00 98.1 65 16 121/63 (82) 100 05/18/19 22:57 65 16 40 05/18/19 21:02 69 16 45 05/18/19 21:00 69 137/76 05/18/19 20:00 45 05/18/19 20:00 Mechanical Ventilator 05/18/19 20:00 69 05/18/19 20:00 97.9 73 16 137/76 (96) 100 05/18/19 19:28 74 16 45 05/18/19 17:02 61 16 45 05/18/19 16:00 72 05/18/19 16:00 Mechanical Ventilator 05/18/19 16:00 45 05/18/19 16:00 97.9 74 16 156/89 (111) 100 Intake and Output 05/18/19 05/19/19 19:00 07:00 Intake Total 1946.667 ml 1800.0 ml Output Total 400 ml 400 ml Balance 1546.667 ml 1400.0 ml Intake Free Water 160 ml IV Total 1376.667 ml 1010.0 ml Tube Feeding 390 ml 630 ml Other 180 ml Output Urine Total 400 ml 400 ml # Voids 1 # Bowel Movements 2 2 Laboratory Tests 05/19/19 03:37: White Blood Count 7.8, Red Blood Count 2.64L, Hemoglobin 7.6L, Hematocrit 25.1L , Mean Corpuscular Volume 95, Mean Corpuscular Hemoglobin 28.9, Mean Corpuscular Hemoglobin Concent 30.4L, Red Cell Distribution Width 17.9H, Platelet Count 201, Mean Platelet Volume 7.9, Neutrophils (%) (Auto) , Lymphocytes (%) (Auto) , Monocytes (%) (Auto) , Eosinophils (%) (Auto) , Basophils (%) (Auto) , Sodium Level 141, Potassium Level 4.8, Chloride Level 109H, Carbon Dioxide Level 23, Anion Gap 9, Blood Urea Nitrogen 64H, Creatinine 1.3, Estimat Glomerular Filtration Rate , Glucose Level 111H, Uric Acid 6.0, Calcium Level 8.0L, Phosphorus Level 3.8, Magnesium Level 2.0, Total Bilirubin 0.4, Aspartate Amino Transf (AST/SGOT) 28, Alanine Aminotransferase (ALT/SGPT) 8L, Alkaline Phosphatase 117H, C-Reactive Protein, Quantitative 14.2H, Pro-B- Type Natriuretic Peptide > 20150L, Total Protein 6.4, Albumin 1.4L, Globulin 5.0 , Albumin/Globulin Ratio 0.3L, Triglycerides Level 178H, Cholesterol Level 71, LDL Cholesterol 41, HDL Cholesterol 12L, Cholesterol/HDL Ratio 5.9H 05/19/19 05:15: Stool Occult Blood Negative 05/19/19 07:10: Albumin/Globulin Ratio [Pending], Prothrombin Time 10.9, Prothromb Time International Ratio 1.0, Total Protein (PEP) [Pending], Albumin (PEP) [Pending] , Globulin (PEP) [Pending], Kpkiq-8-Fwmiptamd [Pending], Pyqov-5-Nprzgvqgx [ Pending], Beta Globulins [Pending], Beta Gamma Globulin [Pending], PEP Abnormal Protein Bands [Pending], Protein Electrophoresis Interpret [Pending] Height (Feet): 5 Height (Inches): 5.00 Weight (Pounds): 204 General Appearance: no apparent distress EENT: other - trach Respiratory/Chest: decreased breath sounds Abdomen: distended Wally Spivey MD May 19, 2019 15:28
--- NOTE | 2019-05-19 15:31 | NUR ---
NURSE NOTES: patient remains stable. properly endorsed to dea schmidt.
[2019-05-19 16:00] VITALS: BP 137/79
--- NOTE | 2019-05-19 16:14 | NUR ---
NURSE NOTES: received pt from [facility], awake, vent dependent, vital signs stable, no co pain, no SOB, skin warm and dry to touch, tolerate GT feeding well, pt on blood transfusion now, tolerate well, continue monitoring.
--- NOTE | 2019-05-19 18:54 | NUR ---
RESPIRATORY NOTE: Received pt on AC 16, 500VT, 40%, PEEP +5. Pt is trach-dependent w/ a cuffed, Shiley 8 tube. Pt is awake/disoriented, responds to stimuli. B/S enmanuel rhonchi, sxn small to moderate amounts of thick, marin-yellow secretions. Family present at bedside. Vent plugged into red outlet, ambubag at bedside. Pt resting comfortably, in no apparent distress at this time. Will continue plan of care.
--- NOTE | 2019-05-19 18:56 | NUR ---
HAND-OFF: Report given to Fina BURNETT,NO ANY DISTRESS AT THIS TIME..
--- NOTE | 2019-05-19 19:00 | NUR ---
NURSE NOTES: BEDSIDE REPORT RECEIVED FROM HORTENCIA MEDRANO. PT TRACKS W/ EYES, NONVERBAL AT THIS TIME. 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 SHILEY 8, TV 500, FIO2 40, PEEP 5; SATING WELL. SKIN IS CLEAN, DRY, DRESSINGS INTACT. RH 20, ASYMPTOMATIC RUNNING ABX. SAFETY PRECAUTIONS CONTINUED. WILL CONTINUE TO MONITOR AND FOLLOW W/ PLAN OF CARE.
[2019-05-19 20:00] VITALS: BP 150/86
[2019-05-19] MEDS ORDERED: Donepezil 5mg Tab ORAL SCH (21:00)
[2019-05-20] VITALS: BP 160/75
[2019-05-20] MEDS: Piperacillin/Tazobactam 3.375 GM in NS 110 ML IVPB SCH ×3 (00:04→16:05)
[2019-05-20] MEDS: NovoLOG Insulin Flexpen SUBQ SCH ×4 (00:06→17:40)
[2019-05-20] MEDS: Sucralfate 1gm tab GT SCH ×4 (00:08→17:38)
[2019-05-20 04:00] VITALS: BP 141/74
[2019-05-20 05:22] LABS: BASOPHILS % (AUTO) 0.6 % (0.0-2.0); EOSINOPHILS % (AUTO) 2.1 % (0.0-3.0); HEMATOCRIT 30.9 % (37.0-47.0); HEMOGLOBIN 9.7 G/DL (12.0-16.0); LYMPHOCYTES % (AUTO) 24.1 % (20.0-45.0); MEAN CORPUSCULAR VOLUME 94 FL (80-99); NEUTROPHILS % (AUTO) 69.2 % (45.0-75.0); PLATELET COUNT 205 K/UL (150-450); RED BLOOD COUNT 3.28 M/UL (4.20-5.40); RED CELL DISTRIBUTION WIDTH 17.4 % (11.6-14.8); WHITE BLOOD COUNT 10.1 K/UL (4.8-10.8)
[2019-05-20 05:56] LABS: ALANINE AMINOTRANSFERASE 10 U/L (12-78); ALBUMIN 1.5 G/DL (3.4-5.0); ALBUMIN/GLOBULIN RATIO 0.3 (1.0-2.7); ALKALINE PHOSPHATASE 142 U/L (46-116); ANION GAP 10 mmol/L (5-15); ASPARTATE AMINO TRANSFERASE 22 U/L (15-37); BILIRUBIN,TOTAL 0.4 MG/DL (0.2-1.0); BLOOD UREA NITROGEN 62 mg/dL (7-18); CALCIUM 8.2 MG/DL (8.5-10.1); CARBON DIOXIDE 23 MMOL/L (21-32); CHLORIDE 108 MMOL/L (98-107); CREATININE 1.4 MG/DL (0.55-1.30); PHOSPHORUS 3.3 MG/DL (2.5-4.9); POTASSIUM 4.7 MMOL/L (3.5-5.1); SODIUM 141 MMOL/L (136-145)
--- NOTE | 2019-05-20 07:00 | NUR ---
RESPIRATORY NOTES: Received Patient on Vent settings ACVC RR 16, VT 500, FIO2 40%, PEEP +5. Patient is trached with a Shiley 8 tracheostomy tube, secured with trach ties. Bilateral rhonchi noted throughout both lung cruz. Suction small amount of thin white/ green secretions Q2 and PRN through ETT. Vent alarms are on and audible. Vent plugged into red outlet. Will continue to monitor throughout the day.
--- NOTE | 2019-05-20 07:07 | NUR ---
HAND-OFF: Report given to HORTENCIA TOMLINSON.
--- NOTE | 2019-05-20 07:09 | NUR ---
NURSE NOTES: Received report from HORTENCIA Malik. Observed patient in bed, opens eyes but nonverbal. On trach-vent with settings AC 16, TV 500, FiO2 40%, PEEP 5; no acute respiratory distress noted at this time. GT intact and patent with feeding infusing at prescribed rate, tolerating well HOB elevated. Right hand IV 20g intact and patent. Safety precautions in place, bed locked, alarmed, and in lowest position, side rails up x3, and call light left within reach. Will continue to monitor.
--- NOTE | 2019-05-20 07:30 | Consultation ---
DATE OF CONSULTATION: 05/19/2019 HISTORY OF PRESENT ILLNESS: The patient is a 79-year-old female patient. She was admitted to [facility] secondary to renal failure and anemia. However, this patient continues to have some altered mental status, confusion, decline in cognition below baseline, that is why she does require inpatient treatment at this time. The patient has lot of medical problems and she came in. She has chronic respiratory failure, history of CVA. Most importantly she has anemia, renal failure, which is why, she is in the hospital, but in addition to that, she also has altered mental status, and her cognition has declined below baseline. That is why, her attending physician has requested daily psychiatric consultation. This patient was actually seen during her last admission by Psychiatry. She had altered mental status, confusion, decline in cognition. So there was a daily psychiatric consultation for the patient and that is why she was seen. She continues to have altered mental status and some confusion, decline in cognition below baseline. That is why her attending physician has requested daily psychiatric consultation. . She is alert, but she is nonverbal. She does have intermittent bouts of psychomotor agitation. PAST MEDICAL HISTORY: The patient has history of chronic renal disease, hypertension, respiratory failure, status post CVA, coronary artery disease, diabetes. ALLERGIES: No known drug allergies. MEDICATIONS: Psychotropic medications on admission, she was previously on Namenda. Now she is currently not on any psychotropic medications. SOCIAL HISTORY: The patient lives in financially supported by [employer] and Medicare. PSYCHIATRIC HISTORY: She has a history of major depressive disorder, mild, recurrent with psychosis, rule out dementia with psychosis. No previous psychiatric admissions. As far as her history is concerned, she is a poor historian at the time of interview. STRENGTHS: She has a place to live and has some financial support. WEAKNESSES: She is impulsive and minimal support system. MENTAL STATUS EXAMINATION: A 79-year-old female. Her appearance is disheveled. Her attitude is slightly irritable and lethargic. Affect is flat. Intellect is poor because she cannot do serial 7's or spell world backwards. Orientation x1 only to person, not place, time, situation. Speech is nonverbal. Thought process, disorganized and illogical. Positive speech. Thought content, no signs of any auditory or visual hallucinations, delusions, but severely disorganized thought process. Perception, no known perceptual disturbances. Abstract reasoning is poor. The patient does not understand proverbs. She only has concrete thinking. 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 Judgment is poor. She cannot make medical decisions for herself. No signs of any suicidal or homicidal ideations. Short-term memory is 0/0, so poor short-term memory. Long-term memory is poor and she cannot recall any long-term events in her life such as high school that she went to. DIAGNOSES: 1. Major depressive disorder, mild, recurrent with psychotic features rule out dementia with psychosis. 2. Medical includes acute failure, CVA, diabetes, coronary artery disease, hypertension, . 3. Psychosocial stressors, financial, 4. Function impairment is moderate. PLAN: I am going to treat this patient with a medication regimen of Aricept 5 mg at bedtime. Provided with 20 minutes of behavioral management. Chart reviewed. Discussed with staff. Seen and assessed at bedside. Omar Glover M.D. DR: Lucina JOB#: [id number] CC:
[2019-05-20 08:00] VITALS: BP 144/73
--- NOTE | 2019-05-20 08:06 | NUR ---
RADIOLOGY DEPT.,CHEST X-RAY DONE.-P.DYE
[2019-05-20] MEDS: Docusate 100mg/10ml Liq NG SCH ×3 (08:11→17:38)
[2019-05-20] MEDS: Metoprolol 25mg tab GT SCH (08:13)
[2019-05-20] MEDS: Heparin 5000 units/ml inj SUBQ SCH (08:16)
--- NOTE | 2019-05-20 09:59 | General Progress Note ---
Assessment/Plan Status: unchanged Assessment/Plan: Assessment/Plan: # Anemia of chronic disease likely multifactorial process, in the past has had anemia as well --> w/u reveals ferritin is >1500, esr and crp are elevated --> on abx at this time, ID recs as needed --> smear has been reviewed, no schistocytes noted --> monitor for bleed, transfuse with 1 unit today --> hgb goal >7 # Pulmonary infiltrates vs pulmonary edema hx of trach --> CXR: Excessive bilateral diffuse infiltrates versus edema, increased from prior study of 05/05/2019 --> on zosyn, off vanc # REMY on CKD --> per renal recs # Recent PNA --> s/p abx with Rx # HyperGlycemia / DM 24 H urine protein check 2.4 gram # Right Esvin due to CVA # HTN --> sbo goal <140 # chronic resp failure s/p trach/vent dependant # dysphagia s/p PEG # nonverbal # SNF resident Greatly appreciate consultation! Subjective Constitutional: Denies: no symptoms, chills, diaphoresis, fever, malaise, weakness, other Cardiovascular: Denies: no symptoms, chest pain, edema, irregular heart rate, lightheadedness, palpitations, syncope, other Respiratory: Denies: no symptoms, cough, orthopnea, shortness of breath, SOB with excertion, SOB at rest, sputum, stridor, wheezing, other Gastrointestinal/Abdominal: Denies: no symptoms, abdomen distended, abdominal pain, black stools, tarry stools, blood in stool, constipated, diarrhea, difficulty swallowing, nausea, poor appetite, poor fluid intake, rectal bleeding , vomiting, other Genitourinary: Denies: no symptoms, burning, discharge, frequency, flank pain, hematuria, incontinence, pain, urgency, other Neurologic/Psychiatric: Denies: no symptoms, anxiety, depressed, emotional problems, headache, numbness, paresthesia, pre-existing deficit, seizure, tingling, tremors, weakness, other Endocrine: Denies: no symptoms, excessive sweating, flushing, intolerance to cold, intolerance to heat, increased hunger, increased thirst, increased urine, unexplained weight gain, unexplained weight loss, other Hematologic/Lymphatic: Denies: no symptoms, anemia, easy bleeding, easy bruising, other Allergies: Coded Allergies: No Known Allergies (Unverified , 04/12/19) Subjective 05/20: no events, no bleeding, no f/c, labs reviewed, on vent and with gtube feedings ongoing Objective Last 24 Hour Vital Signs Date Time Temp Pulse Resp B/P (MAP) Pulse Ox O2 Delivery O2 Flow Rate FiO2 05/20/19 09:27 77 16 40 05/20/19 08:13 80 144/73 05/20/19 08:00 98.4 77 17 144/73 (96) 100 05/20/19 08:00 Mechanical Ventilator 05/20/19 08:00 40 05/20/19 07:41 72 05/20/19 07:21 74 17 40 05/20/19 04:58 66 16 40 05/20/19 04:00 40 05/20/19 04:00 Mechanical Ventilator 05/20/19 04:00 67 05/20/19 04:00 98.1 80 16 141/74 (96) 100 05/20/19 02:56 64 18 40 05/20/19 00:50 63 15 40 05/20/19 00:00 Mechanical Ventilator 05/20/19 00:00 40 05/20/19 00:00 98.5 63 16 160/75 (103) 99 05/20/19 00:00 63 05/19/19 22:47 67 16 40 05/19/19 21:22 69 15 40 05/19/19 20:32 71 150/86 05/19/19 20:00 Mechanical Ventilator 05/19/19 20:00 40 05/19/19 20:00 69 05/19/19 20:00 98.8 71 16 150/86 (107) 98 05/19/19 18:51 78 16 40 05/19/19 17:02 63 16 40 05/19/19 16:00 40 05/19/19 16:00 98.2 68 16 137/79 (98) 100 05/19/19 16:00 Mechanical Ventilator 05/19/19 16:00 62 05/19/19 14:37 74 16 40 05/19/19 12:36 71 20 40 05/19/19 12:00 40 05/19/19 12:00 Mechanical Ventilator 05/19/19 12:00 98.1 65 16 100 05/19/19 11:37 62 05/19/19 10:43 63 18 40 Intake and Output 05/19/19 05/20/19 19:00 07:00 Intake Total 1415.0 ml 855.0 ml Output Total 300 ml 350 ml Balance 1115.0 ml 505.0 ml Intake Free Water 120 ml 90 ml IV Total 335.0 ml 165.0 ml Tube Feeding 720 ml 600 ml Blood Product 240 ml Output Urine Total 300 ml 350 ml # Voids 1 # Bowel Movements 4 2 Laboratory Tests 05/20/19 03:32: White Blood Count 10.1, Red Blood Count 3.28L, Hemoglobin 9.7L, Hematocrit 30.9L , Mean Corpuscular Volume 94, Mean Corpuscular Hemoglobin 29.5, Mean Corpuscular Hemoglobin Concent 31.3L, Red Cell Distribution Width 17.4H, Platelet Count 205, Mean Platelet Volume 8.0, Neutrophils (%) (Auto) 69.2, Lymphocytes (%) (Auto) 24.1, Monocytes (%) (Auto) 4.0, Eosinophils (%) (Auto) 2.1, Basophils (%) (Auto) 0.6, Sodium Level 141, Potassium Level 4.7, Chloride Level 108H, Carbon Dioxide Level 23, Anion Gap 10, Blood Urea Nitrogen 62H, Creatinine 1.4H, Estimat Glomerular Filtration Rate , Glucose Level 143H, Calcium Level 8.2L, Phosphorus Level 3.3, Magnesium Level 2.1, Total Bilirubin 0.4, Aspartate Amino Transf (AST/SGOT) 22, Alanine Aminotransferase (ALT/SGPT) 10L, Alkaline Phosphatase 142H, Pro-B-Type Natriuretic Peptide > 85364D, Total Protein 6.7, Albumin 1.5L, Globulin 5.2, Albumin/Globulin Ratio 0.3L Height (Feet): 5 Height (Inches): 5.00 Weight (Pounds): 211 Objective Physical Exam General Appearance: WD/WN, no apparent distress Neck: non-tender, normal alignment ++ trach/VENT Respiratory/Chest: chest wall non-tender, lungs clear Breasts: no masses Cardiovascular/Chest: normal rate, no gallop/murmur Abdomen: normal BSs ++ peg Extremities: normal range of motion Steven Norton MD May 20, 2019 09:59
--- NOTE | 2019-05-20 10:19 | Infectious Diseases Prog Note ---
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 Will continue to follow along with you. Discussed with RN. Subjective Allergies: Coded Allergies: No Known Allergies (Unverified , 04/12/19) Subjective afebrile Cr improving no leukocytosis Objective Vital Signs Last 24 Hour Vital Signs Date Time Temp Pulse Resp B/P (MAP) Pulse Ox O2 Delivery O2 Flow Rate FiO2 05/20/19 09:27 77 16 40 05/20/19 08:13 80 144/73 05/20/19 08:00 98.4 77 17 144/73 (96) 100 05/20/19 08:00 Mechanical Ventilator 05/20/19 08:00 40 05/20/19 07:41 72 05/20/19 07:21 74 17 40 05/20/19 04:58 66 16 40 05/20/19 04:00 40 05/20/19 04:00 Mechanical Ventilator 05/20/19 04:00 67 05/20/19 04:00 98.1 80 16 141/74 (96) 100 05/20/19 02:56 64 18 40 05/20/19 00:50 63 15 40 05/20/19 00:00 Mechanical Ventilator 05/20/19 00:00 40 05/20/19 00:00 98.5 63 16 160/75 (103) 99 05/20/19 00:00 63 05/19/19 22:47 67 16 40 05/19/19 21:22 69 15 40 05/19/19 20:32 71 150/86 05/19/19 20:00 Mechanical Ventilator 05/19/19 20:00 40 05/19/19 20:00 69 05/19/19 20:00 98.8 71 16 150/86 (107) 98 05/19/19 18:51 78 16 40 05/19/19 17:02 63 16 40 05/19/19 16:00 40 05/19/19 16:00 98.2 68 16 137/79 (98) 100 05/19/19 16:00 Mechanical Ventilator 05/19/19 16:00 62 05/19/19 14:37 74 16 40 05/19/19 12:36 71 20 40 05/19/19 12:00 40 05/19/19 12:00 Mechanical Ventilator 05/19/19 12:00 98.1 65 16 100 05/19/19 11:37 62 05/19/19 10:43 63 18 40 Height (Feet): 5 Height (Inches): 5.00 Weight (Pounds): 211 Objective General Appearance: WD/WN, no apparent distress Lines, tubes and drains: trach, gtube HEENT: normocephalic, atraumatic Neck: non-tender, normal alignment Respiratory/Chest: chest wall non-tender, lungs clear Breasts: no masses Cardiovascular/Chest: normal rate, no gallop/murmur Abdomen: normal bowel sounds Extremities: normal range of motion Microbiology Date/Time Source Procedure Growth Status 05/17/19 20:22 Sputum Gram Stain - Final Resulted 05/17/19 20:22 Sputum Culture - Preliminary Gram Negative Norm Resulted 05/17/19 16:20 Nasal Nares MRSA Culture - Final NO METHICILLIN RESISTANT STAPH AUREUS... Complete 05/18/19 05:40 Stool Clostridium difficile Toxin Assay - Final Complete 05/17/19 16:20 Rectum VRE Culture - Final Enterococcus Faecium - Vre Resulted 05/17/19 16:20 Rectum Pending Resulted Laboratory Tests Test 05/20/19 03:32 White Blood Count 10.1 K/UL (4.8-10.8) Red Blood Count 3.28 M/UL (4.20-5.40) L Hemoglobin 9.7 G/DL (12.0-16.0) L Hematocrit 30.9 % (37.0-47.0) L Mean Corpuscular Volume 94 FL (80-99) Mean Corpuscular Hemoglobin 29.5 PG (27.0-31.0) Mean Corpuscular Hemoglobin Concent 31.3 G/DL (32.0-36.0) L Red Cell Distribution Width 17.4 % (11.6-14.8) H Platelet Count 205 K/UL (150-450) Mean Platelet Volume 8.0 FL (6.5-10.1) Neutrophils (%) (Auto) 69.2 % (45.0-75.0) Lymphocytes (%) (Auto) 24.1 % (20.0-45.0) Monocytes (%) (Auto) 4.0 % (1.0-10.0) Eosinophils (%) (Auto) 2.1 % (0.0-3.0) Basophils (%) (Auto) 0.6 % (0.0-2.0) Sodium Level 141 MMOL/L (136-145) Potassium Level 4.7 MMOL/L (3.5-5.1) Chloride Level 108 MMOL/L (98-107) H Carbon Dioxide Level 23 MMOL/L (21-32) Anion Gap 10 mmol/L (5-15) Blood Urea Nitrogen 62 mg/dL (7-18) H Creatinine 1.4 MG/DL (0.55-1.30) H Estimat Glomerular Filtration Rate mL/min (>60) Glucose Level 143 MG/DL (74-106) H Calcium Level 8.2 MG/DL (8.5-10.1) L Phosphorus Level 3.3 MG/DL (2.5-4.9) Magnesium Level 2.1 MG/DL (1.8-2.4) Total Bilirubin 0.4 MG/DL (0.2-1.0) Aspartate Amino Transf (AST/SGOT) 22 U/L (15-37) Alanine Aminotransferase (ALT/SGPT) 10 U/L (12-78) L Alkaline Phosphatase 142 U/L (46-116) H Pro-B-Type Natriuretic Peptide > 31391 pg/mL (0-125) H Total Protein 6.7 G/DL (6.4-8.2) Albumin 1.5 G/DL (3.4-5.0) L Globulin 5.2 g/dL Albumin/Globulin Ratio 0.3 (1.0-2.7) L Current Medications Medications (Trade) Dose Ordered Sig/Kenisha Route PRN Reason Start Time Stop Time Status Last Admin Dose Admin Acetaminophen (Tylenol) 650 mg Q4H PRN GT FEVER 05/17/19 19:45 06/16/19 19:44 Albuterol/ Ipratropium (Albuterol/ Ipratropium) 3 ml Q4H PRN HHN Shortness of Breath 05/17/19 19:45 05/22/19 19:44 Clopidogrel Bisulfate (Plavix) 75 mg DAILY GT 05/18/19 09:00 06/17/19 08:59 05/20/19 08:11 Dextrose (Dextrose 50%) 25 ml Q30M PRN IV Hypoglycemia 05/17/19 19:45 06/16/19 19:44 Dextrose (Dextrose 50%) 50 ml Q30M PRN IV Hypoglycemia 05/17/19 20:00 06/16/19 19:59 Docusate Sodium (Colace) 100 mg THREE TIMES A DAY NG 05/18/19 13:00 06/17/19 12:59 05/20/19 08:11 Heparin Sodium (Porcine) (Heparin 5000 units/ml) 5,000 units EVERY 12 HOURS SUBQ 05/17/19 21:00 06/16/19 20:59 05/20/19 08:16 Hydralazine HCl (Apresoline) 10 mg Q6H PRN GT For High Blood Pressure 05/17/19 19:45 06/16/19 19:44 Insulin Aspart (NovoLOG) Q6HR SUBQ 05/18/19 00:00 06/16/19 20:59 05/20/19 05:38 Lansoprazole (Prevacid) 30 mg BID GT 05/18/19 18:00 06/17/19 17:59 05/20/19 08:11 Lorazepam (Ativan 2mg/ml 1ml) 2 mg Q2H PRN IV For Anxiety 05/17/19 19:45 05/24/19 19:44 Metoprolol Tartrate (Lopressor) 25 mg EVERY 12 HOURS GT 05/17/19 21:00 06/16/19 20:59 05/20/19 08:13 Morphine Sulfate (Morphine Sulfate) 4 mg Q4H PRN IVP Severe Pain (Pain Scale 7-10) 05/17/19 19:45 05/24/19 19:44 Ondansetron HCl (Zofran) 4 mg Q6H PRN IVP Nausea & Vomiting 05/17/19 19:45 06/16/19 19:44 Piperacillin Sod/ Tazobactam Sod 3.375 gm/Sodium Chloride 110 ml @ 27.5 mls/hr Q8HR@0000,0800,1600 IVPB 05/18/19 16:00 05/25/19 15:59 05/20/19 08:02 Polyethylene Glycol (Miralax) 17 gm DAILYPRN PRN ORAL Constipation 05/17/19 19:45 06/16/19 19:44 Sucralfate (Carafate) 1 gm Q6HR GT 05/18/19 12:00 06/17/19 11:59 05/20/19 05:36 Cora Baer M.D. May 20, 2019 10:19
--- NOTE | 2019-05-20 10:29 | NUR ---
RD ASSESSMENT & RECOMMENDATIONS SEE CARE ACTIVITY FOR COMPLETE ASSESSMENT DAILY ESTIMATED NEEDS: Needs based on Critical care/ 56.8kg abw 22-30 kcals/kg 9843-6545 total kcals 1.25-2 g protein/kg 71-114 g total protein 25-30 mL/kg 7375-0037 total fluid mLs NUTRITION DIAGNOSIS: * Swallowing difficulty R/T dysphagia, h/o CVA, respiratory status as evidenced by pt is now s/p PEG and Trach placement. CURRENT TF: Glucerna 1.2 @60 ENTERAL NUTRITION RECOMMENDATIONS: Glucerna 1.2 @ 60ml/hr x 24 hrs to provide 1440ml, 1728 kcal, 86g pro, 1159ml free H2O * Maintain Glucerna 1.2 @goal as tolerated * @goal Meets 100% est needs. --- W/ ELEV K, REC TF CHANGE TO NEPRO FOR LESS K CONTENT Nepro @ 40m/hr x 24 hrs -> 960ml, 1728kcal, 78g prot, 698ml free water ADDITIONAL RECOMMENDATIONS: * Calibrated bedscale wt for accurate CBW -> recent adm wt of 165#, now 200# * Monitor K closely- rec NEPRO w/ consistently elev K * Monitor lytes daily, replete as needed * H/o wounds, now bedbound, rec PUMA BID to maintain skin integrity -> Rec wound care nurse mino
--- NOTE | 2019-05-20 10:32 | GI Progress Note ---
Assessment/Plan Problems: (1) G tube feedings ICD Codes: Z93.1 - Gastrostomy status SNOMED: 388113670, 337457490, 930980209 (2) History of CVA (cerebrovascular accident) ICD Codes: Z86.73 - Personal history of transient ischemic attack (TIA), and cerebral infarction without residual deficits SNOMED: 598820444 (3) Diabetes mellitus ICD Codes: E11.9 - Type 2 diabetes mellitus without complications SNOMED: 17234325 (4) Anemia in chronic kidney disease (CKD) ICD Codes: N18.9 - Chronic kidney disease, unspecified; D63.1 - Anemia in chronic kidney disease SNOMED: 124875140 Qualifiers: Qualified Codes: N18.9 - Chronic kidney disease, unspecified; D63.1 - Anemia in chronic kidney disease Status: stable Status Narrative Discussed with Dr. Gentile Assessment/Plan RECOMMENDATIONS: 1. Continue tube feeding. 2. Check stool for Clostridium difficile, negative. 3. Monitor blood count. 4. Elevate head of bed. 5. Proton pump inhibitor. 6. Check stool for occult blood, negative. 7. Further recommendations to follow. The patient was seen and examined at bedside and all new and available data was reviewed in the patients chart. I agree with the above findings, impression and plan. (Patient seen earlier today. Signature stamp does not reflect patient encounter time.). - Darron Gentile MD Subjective Subjective limited Objective Last 24 Hour Vital Signs Date Time Temp Pulse Resp B/P (MAP) Pulse Ox O2 Delivery O2 Flow Rate FiO2 05/20/19 09:27 77 16 40 05/20/19 08:13 80 144/73 05/20/19 08:00 98.4 77 17 144/73 (96) 100 05/20/19 08:00 Mechanical Ventilator 05/20/19 08:00 40 05/20/19 07:41 72 05/20/19 07:21 74 17 40 05/20/19 04:58 66 16 40 05/20/19 04:00 40 05/20/19 04:00 Mechanical Ventilator 05/20/19 04:00 67 05/20/19 04:00 98.1 80 16 141/74 (96) 100 05/20/19 02:56 64 18 40 05/20/19 00:50 63 15 40 05/20/19 00:00 Mechanical Ventilator 05/20/19 00:00 40 05/20/19 00:00 98.5 63 16 160/75 (103) 99 05/20/19 00:00 63 05/19/19 22:47 67 16 40 05/19/19 21:22 69 15 40 05/19/19 20:32 71 150/86 05/19/19 20:00 Mechanical Ventilator 05/19/19 20:00 40 05/19/19 20:00 69 05/19/19 20:00 98.8 71 16 150/86 (107) 98 05/19/19 18:51 78 16 40 05/19/19 17:02 63 16 40 05/19/19 16:00 40 05/19/19 16:00 98.2 68 16 137/79 (98) 100 05/19/19 16:00 Mechanical Ventilator 05/19/19 16:00 62 05/19/19 14:37 74 16 40 05/19/19 12:36 71 20 40 05/19/19 12:00 40 05/19/19 12:00 Mechanical Ventilator 05/19/19 12:00 98.1 65 16 100 05/19/19 11:37 62 05/19/19 10:43 63 18 40 Intake and Output 05/19/19 05/20/19 19:00 07:00 Intake Total 1415.0 ml 855.0 ml Output Total 300 ml 350 ml Balance 1115.0 ml 505.0 ml Intake Free Water 120 ml 90 ml IV Total 335.0 ml 165.0 ml Tube Feeding 720 ml 600 ml Blood Product 240 ml Output Urine Total 300 ml 350 ml # Voids 1 # Bowel Movements 4 2 Laboratory Tests Test 05/20/19 03:32 White Blood Count 10.1 K/UL (4.8-10.8) Red Blood Count 3.28 M/UL (4.20-5.40) L Hemoglobin 9.7 G/DL (12.0-16.0) L Hematocrit 30.9 % (37.0-47.0) L Mean Corpuscular Volume 94 FL (80-99) Mean Corpuscular Hemoglobin 29.5 PG (27.0-31.0) Mean Corpuscular Hemoglobin Concent 31.3 G/DL (32.0-36.0) L Red Cell Distribution Width 17.4 % (11.6-14.8) H Platelet Count 205 K/UL (150-450) Mean Platelet Volume 8.0 FL (6.5-10.1) Neutrophils (%) (Auto) 69.2 % (45.0-75.0) Lymphocytes (%) (Auto) 24.1 % (20.0-45.0) Monocytes (%) (Auto) 4.0 % (1.0-10.0) Eosinophils (%) (Auto) 2.1 % (0.0-3.0) Basophils (%) (Auto) 0.6 % (0.0-2.0) Sodium Level 141 MMOL/L (136-145) Potassium Level 4.7 MMOL/L (3.5-5.1) Chloride Level 108 MMOL/L (98-107) H Carbon Dioxide Level 23 MMOL/L (21-32) Anion Gap 10 mmol/L (5-15) Blood Urea Nitrogen 62 mg/dL (7-18) H Creatinine 1.4 MG/DL (0.55-1.30) H Estimat Glomerular Filtration Rate mL/min (>60) Glucose Level 143 MG/DL (74-106) H Calcium Level 8.2 MG/DL (8.5-10.1) L Phosphorus Level 3.3 MG/DL (2.5-4.9) Magnesium Level 2.1 MG/DL (1.8-2.4) Total Bilirubin 0.4 MG/DL (0.2-1.0) Aspartate Amino Transf (AST/SGOT) 22 U/L (15-37) Alanine Aminotransferase (ALT/SGPT) 10 U/L (12-78) L Alkaline Phosphatase 142 U/L (46-116) H Pro-B-Type Natriuretic Peptide > 75774 pg/mL (0-125) H Total Protein 6.7 G/DL (6.4-8.2) Albumin 1.5 G/DL (3.4-5.0) L Globulin 5.2 g/dL Albumin/Globulin Ratio 0.3 (1.0-2.7) L Height (Feet): 5 Height (Inches): 5.00 Weight (Pounds): 211 General Appearance: no apparent distress Cardiovascular: normal rate Respiratory/Chest: normal breath sounds, no respiratory distress, other Abdominal Exam: normal bowel sounds, non tender, soft, GT site - Clean dry and intact Extremities: non-tender Aron Torres NP May 20, 2019 10:32
--- NOTE | 2019-05-20 10:42 | Pulmonolgy Critical Care Note ---
Critical Care - Asmt/Plan Problems: (1) Renal failure (ARF), acute on chronic (2) Anemia in chronic kidney disease (CKD) (3) Pulmonary hypertension (4) Nosocomial pneumonia (5) 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 (6) Hypertensive heart disease (7) Diabetes mellitus (8) Right hemiplegia (9) History of CVA (cerebrovascular accident) (10) G tube feedings Respiratory: monitor respiratory rate, adjust FIO2, CXR Cardiac: continue to monitor HR/BP Renal: F/U I&O, keep IV fluid Infectious Disease: check cultures Gastrointestinal: adjust feedings Endocrine: monitor blood sugar Hematologic: monitor H/H, transfuse if hgb<8.5 Neurologic: PRN Morphine, keep patient comfortable Prophylaxis: Protonix Time Spent (Minutes): 40 Notes Reviewed: cardio Discussed with: nurses, consultants, community case managermanager college - Objective Last 24 Hour Vital Signs Date Time Temp Pulse Resp B/P (MAP) Pulse Ox O2 Delivery O2 Flow Rate FiO2 05/20/19 09:27 77 16 40 05/20/19 08:13 80 144/73 05/20/19 08:00 98.4 77 17 144/73 (96) 100 05/20/19 08:00 Mechanical Ventilator 05/20/19 08:00 40 05/20/19 07:41 72 05/20/19 07:21 74 17 40 05/20/19 04:58 66 16 40 05/20/19 04:00 40 05/20/19 04:00 Mechanical Ventilator 05/20/19 04:00 67 05/20/19 04:00 98.1 80 16 141/74 (96) 100 05/20/19 02:56 64 18 40 05/20/19 00:50 63 15 40 05/20/19 00:00 Mechanical Ventilator 05/20/19 00:00 40 05/20/19 00:00 98.5 63 16 160/75 (103) 99 05/20/19 00:00 63 05/19/19 22:47 67 16 40 05/19/19 21:22 69 15 40 05/19/19 20:32 71 150/86 05/19/19 20:00 Mechanical Ventilator 05/19/19 20:00 40 05/19/19 20:00 69 05/19/19 20:00 98.8 71 16 150/86 (107) 98 05/19/19 18:51 78 16 40 05/19/19 17:02 63 16 40 05/19/19 16:00 40 05/19/19 16:00 98.2 68 16 137/79 (98) 100 05/19/19 16:00 Mechanical Ventilator 05/19/19 16:00 62 05/19/19 14:37 74 16 40 05/19/19 12:36 71 20 40 05/19/19 12:00 40 05/19/19 12:00 Mechanical Ventilator 05/19/19 12:00 98.1 65 16 100 05/19/19 11:37 62 05/19/19 10:43 63 18 40 Status: awake Condition: critical Neck: full ROM Lungs: clear Heart: HR/BP unstable Abdomen: soft, non-tender, feeding tube Extremities: edema Decubiti: stage Micro: Microbiology Date/Time Source Procedure Growth Status 05/17/19 20:22 Sputum Gram Stain - Final Resulted 05/17/19 20:22 Sputum Culture - Preliminary Gram Negative Norm Resulted 05/17/19 16:20 Nasal Nares MRSA Culture - Final NO METHICILLIN RESISTANT STAPH AUREUS... Complete 05/18/19 05:40 Stool Clostridium difficile Toxin Assay - Final Complete 05/17/19 16:20 Rectum VRE Culture - Final Enterococcus Faecium - Vre Resulted 05/17/19 16:20 Rectum Pending Resulted Accucheck: 140 Critical Care - Subjective ROS Limited/Unobtainable: No Condition: critical EKG Rhythm: Sinus Rhythm FI02: 40 Vent Support Breath Rate: 16 Vent Support Mode: AC Vent Tidal Volume: 500 Sputum Amount: Small PEEP: 5.0 PIP: 43 Tube Feeding Amount: 60 I&O: Intake and Output 05/19/19 05/20/19 19:00 07:00 Intake Total 1415.0 ml 855.0 ml Output Total 300 ml 350 ml Balance 1115.0 ml 505.0 ml Intake Free Water 120 ml 90 ml IV Total 335.0 ml 165.0 ml Tube Feeding 720 ml 600 ml Blood Product 240 ml Output Urine Total 300 ml 350 ml # Voids 1 # Bowel Movements 4 2 Labs: Laboratory Tests Test 05/20/19 03:32 White Blood Count 10.1 K/UL (4.8-10.8) Red Blood Count 3.28 M/UL (4.20-5.40) L Hemoglobin 9.7 G/DL (12.0-16.0) L Hematocrit 30.9 % (37.0-47.0) L Mean Corpuscular Volume 94 FL (80-99) Mean Corpuscular Hemoglobin 29.5 PG (27.0-31.0) Mean Corpuscular Hemoglobin Concent 31.3 G/DL (32.0-36.0) L Red Cell Distribution Width 17.4 % (11.6-14.8) H Platelet Count 205 K/UL (150-450) Mean Platelet Volume 8.0 FL (6.5-10.1) Neutrophils (%) (Auto) 69.2 % (45.0-75.0) Lymphocytes (%) (Auto) 24.1 % (20.0-45.0) Monocytes (%) (Auto) 4.0 % (1.0-10.0) Eosinophils (%) (Auto) 2.1 % (0.0-3.0) Basophils (%) (Auto) 0.6 % (0.0-2.0) Sodium Level 141 MMOL/L (136-145) Potassium Level 4.7 MMOL/L (3.5-5.1) Chloride Level 108 MMOL/L (98-107) H Carbon Dioxide Level 23 MMOL/L (21-32) Anion Gap 10 mmol/L (5-15) Blood Urea Nitrogen 62 mg/dL (7-18) H Creatinine 1.4 MG/DL (0.55-1.30) H Estimat Glomerular Filtration Rate mL/min (>60) Glucose Level 143 MG/DL (74-106) H Calcium Level 8.2 MG/DL (8.5-10.1) L Phosphorus Level 3.3 MG/DL (2.5-4.9) Magnesium Level 2.1 MG/DL (1.8-2.4) Total Bilirubin 0.4 MG/DL (0.2-1.0) Aspartate Amino Transf (AST/SGOT) 22 U/L (15-37) Alanine Aminotransferase (ALT/SGPT) 10 U/L (12-78) L Alkaline Phosphatase 142 U/L (46-116) H Pro-B-Type Natriuretic Peptide > 31352 pg/mL (0-125) H Total Protein 6.7 G/DL (6.4-8.2) Albumin 1.5 G/DL (3.4-5.0) L Globulin 5.2 g/dL Albumin/Globulin Ratio 0.3 (1.0-2.7) L Tony Springer MD May 20, 2019 10:42
--- NOTE | 2019-05-20 10:43 | Nephrology Progress Note ---
Assessment/Plan Problem List: (1) Renal failure (ARF), acute on chronic (2) Anemia in chronic kidney disease (CKD) (3) Diabetes mellitus (4) G tube feedings (5) Chronic respiratory failure Assessment Acute on chronic renal failure- Anemia s/p Pneumonia / respiratory failure has trchon 7/8 s/p Sepsis HyperGlycemia / DM 24 H urine protein check 2.4 gram Right Esvin due to CVA HTN Plan BP and BS control urine studies slow hydrate previous kidney MAIKEL results noted: No [place] previous 2D echo Noted visualized except distal setum and inferiro wall hypokinesis Left ventricular ejection fraction estimated to be 55-60 %. avoid Nephrotoxics per orders Subjective ROS Limited/Unobtainable: Yes Objective Objective Last 24 Hour Vital Signs Date Time Temp Pulse Resp B/P (MAP) Pulse Ox O2 Delivery O2 Flow Rate FiO2 05/20/19 09:27 77 16 40 05/20/19 08:13 80 144/73 05/20/19 08:00 98.4 77 17 144/73 (96) 100 05/20/19 08:00 Mechanical Ventilator 05/20/19 08:00 40 05/20/19 07:41 72 05/20/19 07:21 74 17 40 05/20/19 04:58 66 16 40 05/20/19 04:00 40 05/20/19 04:00 Mechanical Ventilator 05/20/19 04:00 67 05/20/19 04:00 98.1 80 16 141/74 (96) 100 05/20/19 02:56 64 18 40 05/20/19 00:50 63 15 40 05/20/19 00:00 Mechanical Ventilator 05/20/19 00:00 40 05/20/19 00:00 98.5 63 16 160/75 (103) 99 05/20/19 00:00 63 05/19/19 22:47 67 16 40 05/19/19 21:22 69 15 40 05/19/19 20:32 71 150/86 05/19/19 20:00 Mechanical Ventilator 05/19/19 20:00 40 05/19/19 20:00 69 05/19/19 20:00 98.8 71 16 150/86 (107) 98 05/19/19 18:51 78 16 40 05/19/19 17:02 63 16 40 7/24/19 16:00 40 05/19/19 16:00 98.2 68 16 137/79 (98) 100 05/19/19 16:00 Mechanical Ventilator 05/19/19 16:00 62 05/19/19 14:37 74 16 40 05/19/19 12:36 71 20 40 05/19/19 12:00 40 05/19/19 12:00 Mechanical Ventilator 05/19/19 12:00 98.1 65 16 100 05/19/19 11:37 62 05/19/19 10:43 63 18 40 Intake and Output 05/19/19 05/20/19 19:00 07:00 Intake Total 1415.0 ml 855.0 ml Output Total 300 ml 350 ml Balance 1115.0 ml 505.0 ml Intake Free Water 120 ml 90 ml IV Total 335.0 ml 165.0 ml Tube Feeding 720 ml 600 ml Blood Product 240 ml Output Urine Total 300 ml 350 ml # Voids 1 # Bowel Movements 4 2 Laboratory Tests 05/20/19 03:32: White Blood Count 10.1, Red Blood Count 3.28L, Hemoglobin 9.7L, Hematocrit 30.9L , Mean Corpuscular Volume 94, Mean Corpuscular Hemoglobin 29.5, Mean Corpuscular Hemoglobin Concent 31.3L, Red Cell Distribution Width 17.4H, Platelet Count 205, Mean Platelet Volume 8.0, Neutrophils (%) (Auto) 69.2, Lymphocytes (%) (Auto) 24.1, Monocytes (%) (Auto) 4.0, Eosinophils (%) (Auto) 2.1, Basophils (%) (Auto) 0.6, Sodium Level 141, Potassium Level 4.7, Chloride Level 108H, Carbon Dioxide Level 23, Anion Gap 10, Blood Urea Nitrogen 62H, Creatinine 1.4H, Estimat Glomerular Filtration Rate , Glucose Level 143H, Calcium Level 8.2L, Phosphorus Level 3.3, Magnesium Level 2.1, Total Bilirubin 0.4, Aspartate Amino Transf (AST/SGOT) 22, Alanine Aminotransferase (ALT/SGPT) 10L, Alkaline Phosphatase 142H, Pro-B-Type Natriuretic Peptide > 92632C, Total Protein 6.7, Albumin 1.5L, Globulin 5.2, Albumin/Globulin Ratio 0.3L Height (Feet): 5 Height (Inches): 5.00 Weight (Pounds): 211 EENT: other - trach Cardiovascular: tachycardia Respiratory/Chest: decreased breath sounds Abdomen: distended Wally Spivey MD May 20, 2019 10:43
--- NOTE | 2019-05-20 11:19 | NUR ---
DIVISION SERVICE MANAGER NOTES SPOKE WITH WILL FROM [facility], TELEPHONE REVIEW GIVEN. AWARE OF REQUESTED DC BACK TO [facility]. WILL FOLLOW UP. Addendum: 05/20/19 at 1120 by MIRA NORRIS RN RN WILL [phone]
[2019-05-20 12:00] VITALS: BP 142/80
--- NOTE | 2019-05-20 12:08 | CDS Physician Query ---
Clarification is required for compliance, coding accuracy, and to reflect severity of illness for this patient. Dear Dr. Dave Spivey Date: 05/20/2019 CDS: Shannan Diaz Clinical Documentation states: 05/20/2019: Pulmonary infiltrates vs pulmonary edema -CXR: Excessive bilateral diffuse infiltrates versus edema, increased from prior study of 05/05/2019...Recent PNA, s/p Rx...PNA Sputum Culure: Gram negative Norm Treatment: IV vancomycin, pip-tazo A diagnosis of Pneumonia was made in the medical record on the infectious disease consult. Upon review, it is difficult to determine whether this diagnosis has been ruled in, ruled out,or is still being worked up. Please indicate below the status of the aforementioned diagnosis. [] Treated and resolved during this admission [*] Presumed and treated during this admission [] Currently under treatment [] Still being worked-up [] Ruled out [] Past history of pneumonia only Present on Admission: [*] Yes [] No [] Clinically Undetermined Physician signature Date Please also document in your Progress Notes and/or Discharge Summary and indicate if the condition was present on admission. VERITOD
--- NOTE | 2019-05-20 12:41 | Diagnostic Imaging Report ---
Indication: Dyspnea Comparison: 05/18/2019 A single view chest radiograph was obtained. Findings: Extensive the interstitial and alveolar densities demonstrated throughout both lung crzu. Heart is mildly enlarged. Tracheostomy noted. Bones are unremarkable. IMPRESSION: Patchy infiltrates versus pulmonary edema moderate to severe in degree
--- NOTE | 2019-05-20 13:14 | NUR ---
*-* DISCHARGE PLANNING *-* PATIENT HAS BEEN REFERRED BACK TO: [facility] P:[phone] F:[phone]
--- NOTE | 2019-05-20 15:22 | NUR ---
*-* INSURANCE *-* AVAILABLE CLINICALS HAVE BEEN FAXED TO: [facility]# [id number] f:[phone]
[2019-05-20 16:00] VITALS: BP 136/74
--- NOTE | 2019-05-20 16:00 | Progress Note ---
DATE: 05/20/2019 SUBJECTIVE: This is a 79-year-old female patient with anemia and renal failure. She got confused. She has got some disorganized thought process and decline in cognition below her baseline. MENTAL STATUS EXAMINATION: This is a 79-year-old female. Appearance is disheveled. Attitude, irritable and agitated. Affect, guarded and restricted. Intellect, poor. Mood, depressed and anxious. Motor activity, psychomotor agitation. Attention span is poor. Orientation x2. Speech is low volume, slurred. Thought process, disorganized and illogical. Insight and judgment is poor. DIAGNOSIS: Major depressive disorder, mild, recurrent with psychotic features, rule out dementia with psychosis. PLAN: Treat her with Aricept 5 mg nightly to help prevent any further decline in her cognition. A 20 minutes of behavioral management provided. Chart reviewed. Discussed with staff. Seen and assessed at bedside. Omar Glover M.D. DR: RELL JOB#: [id number] CC:
--- NOTE | 2019-05-20 16:10 | NUR ---
*-* DISCHARGE PLANNED *-* PATIENT IS DISCAHRGED TO:\\ [facility]. ROOM# 210-A FDC T:[phone] FOR NURSE TO NURSE REPORT [facility] HAS BEEN ARRANGED FOR 1800 P/U S/W AMALIA. *-* FAMILY HAS BEEN NOTIFIED S/E JOSE MARTIN BOB AND MADE AWARE OF TX *-*
--- NOTE | 2019-05-20 16:54 | NUR ---
NURSE NOTES: Report given to Clari from [facility].
[2019-05-20] MEDS ORDERED: ZOSYN 3.373.375 GM/1 IVPB (17:09)
[2019-05-20] MEDS ORDERED: 1/2 NS 1000ml IV ONE (18:02)
[2019-05-20] MEDS ORDERED: NS 275ml ONE (18:02)
[2019-05-20] MEDS ORDERED: Tubing IV Secondary IV ONE (18:02)
--- NOTE | 2019-05-20 18:55 | NUR ---
NURSE NOTES: Spoke to Gabriel from [facility] for f/u, ETA 30 minutes.
--- NOTE | 2019-05-20 19:27 | NUR ---
HAND-OFF: Report given to HORTENCIA Bae. Patient in stable condition.
--- NOTE | 2019-05-20 19:30 | NUR ---
NURSE NOTES: Received patient from HORTENC[facility] Melara. patient is observed sleeping in bed, AO X1, no s/sx of pain noted at this time. vent to trach settings as follows: Shiley: 8, AC: 16, TV: 500, FiO2: 40%, PEEP: 5. G-tube site is patent and intact, with feeding running at prescribed rate. HOB elevated. IV site is patent and intact. bed in lowest position and locked, siderails up X3, call light within reach. will continue to monitor.
[2019-05-20 20:00] VITALS: BP 145/78
--- NOTE | 2019-05-20 20:46 | NUR ---
INTER-FACILITY TRANSFER: Patient transferred to [facility] via [facility]. Report given to HORTENCIA Montague. No belongings. G-tube flushed and clamped. IV site flushed and clamped. Family notified of transfer. patient is in stable condition.
--- NOTE | 2019-05-21 23:37 | Discharge Summary ---
Discharge Summary Discharge Summary _ DATE OF ADMISSION: 05/17/2019 DATE OF DISCHARGE: 05/20/2019 DISCHARGED BY: Dr Keating REASON FOR ADMISSION: 79 years old female with a history of chronic respiratory failure, ventilator dependent, tracheostomy status, dysphagia, G-tube feeding, history of prior CVA with hemiplegia, diabetes mellitus, hypertensive heart disease, was recently discharged from [facility] to subacute facility. She was brought back with anemia and worsening renal function. Laboratory work-up revealed no leukocytosis, hemoglobin 8.5. BUN 72, creatinine 1.5. Troponin negative. EKG revealed normal sinus rhythm with T wave inversion. Urinalysis revealed no evidence of UTI. Patient started on IV fluids and admitted for further management. CONSULTANTS: pulmonary Dr Springer ID specialist Dr. Baer GI specialist Dr. Ye it auditor Dr. Spivey water quality tester/oncologist Dr. Norton psychiatrist Dr. Glover [facility] COURSE: Patient admitted to [facility]. Renal ultrasound revealed no evidence of hydronephrosis. Normal echogenicity bilateral kidney. Ventilator support provided. Tracheostomy care provided. Pulmonary toilet continued. Initial chest x-ray revealed excessive bilateral diffuse infiltrates versus edema, increased compared to prior study. Follow-up chest x-ray demonstrated patchy infiltrates versus pulmonary edema, moderate to severe in degree. Venous Doppler bilateral lower extremity revealed no evidence of acute DVT. Sputum culture revealed Providencia and Stenotrophomonas. Stool for C. difficile was negative. Antibiotics provided as per ID specialist recommendation. Renal parameters and electrolytes were closely monitored. Electrolytes corrected as needed, and nephrotoxins were avoided. Per it auditor, patient had acute on chronic renal failure. Urine studies were done. 24 urine protein was 2.4 g. Antiplatelet therapy with Plavix continued. Lipid panel was stable. DVT prophylaxis provided. Blood pressure was managed with beta-jose and hydralazine. Blood sugar was managed with sliding scale of insulin. Hemoglobin A1c 6.6. Supportive care provided. Bowel regimen instituted. Hemoglobin and hematocrit were closely monitored with to keep hemoglobin above 7. Patient received 1 unit of packed red blood cells while in the hospital. Prior to discharge hemoglobin 9.7, hematocrit 40.9. Stool for occult blood was negative. Anemia work-up was suggestive of anemia of chronic disease. Psychiatrist followed. Psychiatrist diagnosed patient with major depressive disorder, mild, recurrent, with psychotic features. Psychiatric medication regimen was optimized. Behavioral management provided. Patient clinically stabilized and was ready for transfer to [facility] facility for continuation of care. FINAL DIAGNOSES: Sepsis Chronic respiratory failure, ventilator dependent Tracheostomy status Probably pneumonia Acute on chronic renal failure Dysphagia, feeding by G-tube Anemia of chronic kidney disease, History of CVA with right hemiplegia Major depressive, mild, recurrent, with psychotic features DISCHARGE MEDICATIONS: See Medication Reconciliation list. DISCHARGE INSTRUCTIONS: Patient was discharged to the [facility] facility. Follow up with medical doctor at the facility. I have been assigned to dictate discharge summary for this account. I was not involved in the patient's management. Stacy Dsouza NP May 21, 2019 23:37
--- NOTE | 2019-05-22 | Progress Note ---
DATE: 05/21/2019 SUBJECTIVE: This is a 79-year-old female patient with anemia, renal failure and she has confusion, disorganized thought process, and decline in cognition below her baseline. She is confused and disorganized. She has altered mental status, confusion, and disorganized thought process. MENTAL STATUS EXAMINATION: This is a 79-year-old female. Appearance, disheveled. Attitude, irritable and agitated. Affect, guarded and restricted. Intellect, poor. Mood, depressed. Motor activity, psychomotor agitation. Insight and judgment is poor. DIAGNOSIS: Major depressive disorder, mild, recurrent with psychotic features, rule out dementia with psychosis. PLAN: Treat her with Aricept 5 mg nightly. 20 minutes of insight-oriented psychotherapy to help her have insight and understanding into her condition so that she has better impulse control. Chart reviewed. Discussed with staff. The patient was seen and assessed in her room. Omar Glover M.D. DR: RELL JOB#: [id number] CC:
--- NOTE | 2019-05-24 15:57 | NUR ---
*-* INSURANCE *-* DISCHARGE SUMMARY HAS BEEN FAXED TO: [facility]# [id number] f:[phone]
== END 2019-05-20 20:40 | DRG 469 ==
LOC: EDBD 15:10 → EDBEDREQ 15:39 → EMR 15:42 → EDBEDREQ 16:43 → 2W 17:20
PROC: 5A1945Z Respiratory Ventilation, 24-96 Consecutive Hours (ICD-10-PCS; principal; 2019-05-17)
PROC: 30233N1 Transfusion of Nonautologous Red Blood Cells into Peripheral Vein, Percutaneous Approach (ICD-10-PCS; 2019-05-19)
DX: N17.9 Acute kidney failure, unspecified (principal); J18.9 Pneumonia, unspecified organism; J96.10 Chronic respiratory failure, unspecified whether with hypoxia or hypercapnia; I27.20 Pulmonary hypertension, unspecified; Z43.0 Encounter for attention to tracheostomy; E11.22 Type 2 diabetes mellitus with diabetic chronic kidney disease; I69.351 Hemiplegia and hemiparesis following cerebral infarction affecting right dominant side; N18.4 Chronic kidney disease, stage 4 (severe); R13.10 Dysphagia, unspecified; F33.0 Major depressive disorder, recurrent, mild; I13.10 Hypertensive heart and chronic kidney disease without heart failure, with stage 1 through stage 4 chronic kidney disease, or unspecified chronic kidney disease; D63.1 Anemia in chronic kidney disease; Z43.1 Encounter for attention to gastrostomy; Z79.4 Long term (current) use of insulin; F29 Unspecified psychosis not due to a substance or known physiological condition; I25.10 Atherosclerotic heart disease of native coronary artery without angina pectoris
CPT/HCPCS: 36415; 71045; 76770; 80053; 80061; 80069; 80202; 81003; 82043; 82270; 82550; 82607; 82728; 82746; 82962; 83036; 83540; 83550; 83690; 83735; 83880; 83935; 84100; 84165; 84300; 84550; 85025; 85610; 85730; 86140; 86850; 86900; 86901; 86920; 87070; 87081; 87181; 87205; 87324; 89050; 93005; 93970; 94002; 94003; 94664; 96360; 96361; 99285; J1815

== ENCOUNTER 2019-06-04 09:45 | Inpatient (IN) | payer MEDICARE, OTHER ==
[~2019-06-04] VITALS: Ht 165.1 cm; Wt 93.0 kg
[2019-06-04] VITALS (12 sets, daily range): BP systolic 139–177; BP diastolic 50–99
[~2019-06-04 09:45] MED LIST changes: +ACETAMINOP160 MG/5 M GT; +ALBUTEROL2.5 MG/3 M INH; +COLACE100 MG/10 GT; +EPOGEN20000 UNI1 SUBQ; +FERROUS SULFAT325 MG GT; +FUROSEMIDE40 MG GT; +HYDRALAZINE HCL10 MG GT; +MACRODANTIN50 MG ORAL; +METOPROLOL TART25 MG GT; +MILK OF MA400 MG/51 GT; +MULTI-DELYN237 ML GT; +NOVOLOG100 UNIT/4 SQ; +PLAVIX75 MG GT; +PROMOD946 ML GT; +VITAMIN C500 M1 GT; +ZINC SULFATE220 M1 GT; +ZOSYN 3.373.375 GM/1 IVPB
--- NOTE | 2019-06-04 09:57 | NUR ---
ED Nurse Note: pt brought in to ER by ambulance from [facility] due to respiratory distress. pt non verbal but open eyes spontaneously. general body edema noted. Trache and G-tube present. RT at bedside. anterior skin clean and intanct and posterior skin has not checked due to pt obese and unable to turn. will perform skin check when help is available to turn the pt. vss as documented. ERMD at bedside.
[2019-06-04] MEDS ORDERED: Albuterol/Ipratropium 3ml neb HHN ONE (10:00)
[2019-06-04] MEDS ORDERED: VITAMIN C500 M1 GT (10:06)
[2019-06-04] MEDS ORDERED: LANSOPRAZOLE30 MG GT (10:06)
[2019-06-04 10:14] LABS: BASOPHILS % (AUTO) 0.5 % (0.0-2.0); EOSINOPHILS % (AUTO) 1.3 % (0.0-3.0); HEMATOCRIT 31.1 % (37.0-47.0); HEMOGLOBIN 9.2 G/DL (12.0-16.0); LYMPHOCYTES % (AUTO) 25.3 % (20.0-45.0); MEAN CORPUSCULAR VOLUME 101 FL (80-99); MONOCYTES % (AUTO) 4.7 % (1.0-10.0); NEUTROPHILS % (AUTO) 68.2 % (45.0-75.0); PLATELET COUNT 211 K/UL (150-450); RED BLOOD COUNT 3.07 M/UL (4.20-5.40); RED CELL DISTRIBUTION WIDTH 22.3 % (11.6-14.8); WHITE BLOOD COUNT 17.7 K/UL (4.8-10.8)
--- NOTE | 2019-06-04 10:14 | Emergency Room Report ---
History of Present Illness General Chief Complaint: Dyspnea/Respdistress Present Illness HPI Here brought by EMS from group home [facility] for respiratory distress. She was also hypotensive in the field. She is ventilator dependent and has a G- tube. She was recently treated for sepsis 2 weeks ago. Prior vent settings: FiO2 40%, tidal volume 500, assist control, PEEP of 5, rate 16. Although the patient tracks with her eyes she is unable to answer questions. Patient was discharged May 20 with these discharge diagnoses: Sepsis Chronic respiratory failure, ventilator dependent Tracheostomy status Probably pneumonia Acute on chronic renal failure Dysphagia, feeding by G-tube Anemia of chronic kidney disease, History of CVA with right hemiplegia Major depressive, mild, recurrent, with psychotic features Allergies: Coded Allergies: No Known Allergies (Unverified , 04/12/19) Patient History Limited by: medical condition Past Medical History: see triage record, old chart reviewed Past Surgical History: other - Tracheostomy and gastrostomy tube Social History Narrative [facility], full code Reviewed Nursing Documentation: PMH: Agreed; PSxH: Agreed Nursing Documentation-PMH Hx Cardiac Problems: Yes - ATHEROSCLEROTIC HEART DISEASE, ANEMIA Hx Hypertension: Yes Hx Diabetes: Yes - DM II Hx Cancer: No Hx Gastrointestinal Problems: Yes - GASTROSTOMY Review of Systems All Other Systems: limited Physical Exam Vital Signs Date Time Temp Pulse Resp B/P (MAP) Pulse Ox O2 Delivery O2 Flow Rate FiO2 06/04/19 09:39 95 145/85 (105) 93 Mechanical Ventilator 06/04/19 09:51 22 50 06/04/19 09:57 98.2 Sp02 EP Interpretation: reviewed, abnormal - Interpreted as low by me General Appearance: alert, moderate distress, obese, Chronically Ill Head: normocephalic, atraumatic Eyes: bilateral eye normal inspection, bilateral eye PERRL ENT: moist mucus membranes Neck: supple, tracheotomy Respiratory: respiratory distress, crackles, rales, rhonchi, wheezing, expiration Cardiovascular #1: regular rate, rhythm, edema - Anasarca Cardiovascular #2: 2+ radial (R) Gastrointestinal: soft, other - Gastrostomy tube, decreased bowel sounds, overweight Genitourinary: normal inspection Musculoskeletal: swelling, other - Contractures Neurologic: alert, Babinski, other - Not respond to painful stimuli and functional quadriplegia Psychiatric: other - Lethargic but eyes open Skin: Decubitus/Ulcer - Sacrum stage III Procedures Critical Care Time Critical Care Time Total Critical Care Time: 90 min bedside evaluation and treatment excludes procedures (EKG). Reason for critical care: Sepsis, pneumonia, hypotension,NSTEMI Possible complications: hypotension, hypertension, LA, shock, arrhythmias, metabolic acidosis, end organ damage, respiratory failure. Interventions: Fluid resuscitation, antibiotics, respiratory stabilization and ventilator reevaluation, repeat examinations, treatment of NSTEMI Course: Patient presented with altered level of consciousness respiratory distress and hypotension. Sepsis resuscitation begun. Antibiotics ordered to cover right-sided pneumonia. Ventilator settings and discussion with respiratory therapy regarding breathing treatments and suctioning. Improved respiratory status. Sepsis reevaluation. Discussion with patient. Elevated troponin treated with aspirin. No evidence of STEMI. Consultations: nursing staff, EMS, respiratory therapy, admitting physician Performed by: Dr. Campa Tolerated well condition = critical Medical Decision Making Diagnostic Impression: Primary Impression: Severe sepsis Additional Impressions: Pneumonia Qualified Codes: J18.9 - Pneumonia, unspecified organism NSTEMI (non-ST elevated myocardial infarction) Anemia in chronic kidney disease (CKD) Qualified Codes: N18.2 - Chronic kidney disease, stage 2 (mild); D63.1 - Anemia in chronic kidney disease Transient hypotension ER Course Patient presents with respiratory distress, hypotension and altered level of consciousness. Differential includes sepsis, severe sepsis, pneumonia, respiratory failure, electrolyte imbalance, renal failure, congestive heart failure, acute myocardial infarction amongst others. Extremely complex patient with severe comorbidities and ventilator dependence. Sepsis resuscitation begun. Focus on respiratory care and ventilator adjustments for presenting illness with breathing treatments ordered. IMproved with bolus. Improved mentation. Antibiotics ordered as R infiltrate. 10:45 More alert. Cap fill good. Not hypotensive. O2 sat improved with treatment. Aspirin given for NSTEMI. ABG reviewed with respiratory therapy. 12:00 EKG without STEMI. Leukocytosis. Anemia. Elevated lactic acid. Mild renal insufficiency. Minimal pyuria. Vital signs improved. Patient still critical. Presented to admitting physician. Discussed with patient. Patient admitted to ICU. Laboratory Tests Test 06/04/19 10:00 06/04/19 10:30 06/04/19 11:27 06/04/19 12:15 White Blood Count 17.7 K/UL (4.8-10.8) H Red Blood Count 3.07 M/UL (4.20-5.40) L Hemoglobin 9.2 G/DL (12.0-16.0) L Hematocrit 31.1 % (37.0-47.0) L Mean Corpuscular Volume 101 FL (80-99) H Mean Corpuscular Hemoglobin 30.0 PG (27.0-31.0) Mean Corpuscular Hemoglobin Concent 29.6 G/DL (32.0-36.0) L Red Cell Distribution Width 22.3 % (11.6-14.8) H Platelet Count 211 K/UL (150-450) Mean Platelet Volume 7.0 FL (6.5-10.1) Neutrophils (%) (Auto) 68.2 % (45.0-75.0) Lymphocytes (%) (Auto) 25.3 % (20.0-45.0) Monocytes (%) (Auto) 4.7 % (1.0-10.0) Eosinophils (%) (Auto) 1.3 % (0.0-3.0) Basophils (%) (Auto) 0.5 % (0.0-2.0) Prothrombin Time 11.5 SEC (9.30-11.50) Prothrombin Time INR 1.1 (0.9-1.1) PTT 28 SEC (23-33) Sodium Level 134 MMOL/L (136-145) L Potassium Level 4.9 MMOL/L (3.5-5.1) Chloride Level 107 MMOL/L (98-107) Carbon Dioxide Level 22 MMOL/L (21-32) Anion Gap 5 mmol/L (5-15) Blood Urea Nitrogen 59 mg/dL (7-18) H Creatinine 1.3 MG/DL (0.55-1.30) Estimate Glomerular Filtration Rate mL/min (>60) Glucose Level 278 MG/DL (74-106) H Lactic Acid Level 3.80 mmol/L (0.4-2.0) H 2.00 mmol/L (0.66-2.22) Calcium Level 8.8 MG/DL (8.5-10.1) Magnesium Level 2.1 MG/DL (1.8-2.4) Total Bilirubin 0.6 MG/DL (0.2-1.0) Aspartate Amino Transferase (AST) 33 U/L (15-37) Alanine Aminotransferase (ALT) 11 U/L (12-78) L Alkaline Phosphatase 196 U/L (46-116) H Total Creatine Kinase 27 U/L (26-308) Troponin I 0.141 ng/mL (0.000-0.056) Pro-B-Type Natriuretic Peptide 58298 pg/mL (0-125) H Total Protein 7.9 G/DL (6.4-8.2) Albumin 2.0 G/DL (3.4-5.0) L Globulin 5.9 g/dL Albumin/Globulin Ratio 0.3 (1.0-2.7) L Lipase 135 U/L (73-393) Carcinoembryonic Antigen Pending Urine Color Yellow Urine Appearance Cloudy Urine pH 5 (4.5-8.0) Urine Specific [place] 1.015 (1.005-1.035) Urine Protein 4+ (NEGATIVE) H Urine Glucose (UA) Negative (NEGATIVE) Urine Ketones Negative (NEGATIVE) Urine Blood 3+ (NEGATIVE) H Urine Nitrite Negative (NEGATIVE) Urine Bilirubin Negative (NEGATIVE) Urine Urobilinogen 4 MG/DL (0.0-1.0) H Urine Leukocyte Esterase 1+ (NEGATIVE) H Urine RBC 5-10 /HPF (0 - 2) H Urine WBC 2-4 /HPF (0 - 2) Urine Squamous Epithelial Cells None /LPF (NONE/OCC) Urine Amorphous Sediment Many /LPF (NONE) H Urine Bacteria Few /HPF (NONE) Arterial Blood pH 7.380 (7.350-7.450) Arterial Blood Partial Pressure CO2 36.5 mmHg (35.0-45.0) Arterial Blood Partial Pressure O2 72.0 mmHg (75.0-100.0) L Arterial Blood HCO3 21.1 mmol/L (22.0-26.0) L Arterial Blood Oxygen Saturation 93.3 % (95-100) L Arterial Blood Base Excess -3.6 (-2-2) L Marlo Test Positive Test 06/04/19 19:00 Troponin I 0.649 ng/mL (0.000-0.056) EKG Diagnostic Results Rate: normal Rhythm: NSR ST Segments: no acute changes Rhythm Strip Diag. Results EP Interpretation: yes Rhythm: NSR, no PVC's, no ectopy Chest X-Ray Diagnostic Results Chest X-Ray Diagnostic Results : Interpretation: no effusion, no pneumothorax, other - R infiltrate Impression: Other Electronically Signed by: Electronically signed by Gildardo Campa MD Last 24 Hour Vital Signs Date Time Temp Pulse Resp B/P (MAP) Pulse Ox O2 Delivery O2 Flow Rate FiO2 06/05/19 01:30 66 16 50 06/04/19 23:02 68 20 50 06/04/19 21:30 71 16 50 06/04/19 21:02 79 169/88 06/04/19 19:30 70 15 50 06/04/19 19:00 71 17 158/90 (112) 99 06/04/19 18:00 98.0 71 19 148/99 (115) 100 06/04/19 17:30 73 22 50 06/04/19 17:00 71 20 140/50 (80) 99 06/04/19 16:00 70 06/04/19 16:00 Mechanical Ventilator 06/04/19 16:00 35 06/04/19 16:00 70 19 177/89 (118) 100 06/04/19 15:21 67 24 50 06/04/19 15:00 67 20 142/92 (109) 100 06/04/19 14:14 68 06/04/19 14:06 97.4 70 18 145/89 (107) 100 06/04/19 14:05 Mechanical Ventilator 06/04/19 13:55 98.8 86 18 189/91 100 Mechanical Ventilator 50 06/04/19 13:13 60 18 50 06/04/19 12:54 98.8 86 16 140/86 100 Mechanical Ventilator 50 06/04/19 12:01 98.8 06/04/19 11:17 100.5 06/04/19 10:11 68 16 97 Mechanical Ventilator 50 06/04/19 10:04 85 22 96 Mechanical Ventilator 50 06/04/19 10:01 50 06/04/19 09:57 98.2 89 22 145/85 98 Mechanical Ventilator 50 06/04/19 09:57 85 22 Mechanical Ventilator 50 06/04/19 09:53 85 22 50 06/04/19 09:51 85 22 95 Mechanical Ventilator 50 06/04/19 09:39 95 145/85 (105) 93 Mechanical Ventilator Status: improved Disposition: ADMITTED INPATIENT Condition: Critical Gildardo Campa MD Jun 04, 2019 10:14
[2019-06-04 10:28] LABS: INR 1.1 (0.9-1.1)
[2019-06-04 10:36] LABS: ANION GAP 5 mmol/L (5-15); BLOOD UREA NITROGEN 59 mg/dL (7-18); CALCIUM 8.8 MG/DL (8.5-10.1); CARBON DIOXIDE 22 MMOL/L (21-32); CHLORIDE 107 MMOL/L (98-107); CREATININE 1.3 MG/DL (0.55-1.30); POTASSIUM 4.9 MMOL/L (3.5-5.1); SODIUM 134 MMOL/L (136-145)
[2019-06-04 10:38] LABS: ALANINE AMINOTRANSFERASE 11 U/L (12-78); ALBUMIN/GLOBULIN RATIO 0.3 (1.0-2.7); ALKALINE PHOSPHATASE 196 U/L (46-116); ASPARTATE AMINO TRANSFERASE 33 U/L (15-37); BILIRUBIN,TOTAL 0.6 MG/DL (0.2-1.0); CREATINE KINASE 27 U/L (26-308)
[2019-06-04] MEDS ORDERED: Vancomycin 1.5 GM in NS 275 ML IVPB ONE (10:45)
[2019-06-04] MEDS ORDERED: Piperacillin/Tazobactam 3.375 GM in NS 110 ML IVPB ONE (10:45)
[2019-06-04 10:49] LABS: APPEARANCE,URINE CLOUDY; BILIRUBIN, URINE NEGATIVE (NEGATIVE); GLUCOSE, URINE (UA) NEGATIVE (NEGATIVE); KETONES,URINE NEGATIVE (NEGATIVE); LEUKOCYTE ESTERASE ,URINE 1+ (NEGATIVE); NITRITE,URINE NEGATIVE (NEGATIVE); PH,URINE 5 (4.5-8.0); PROTEIN,URINE 4+ (NEGATIVE); UROBILINOGEN,URINE 4 MG/DL (0.0-1.0)
--- NOTE | 2019-06-04 10:51 | Diagnostic Imaging Report ---
Indication: Chest pain, shortness of breath Technique: XRAY Chest 1v Comparison: 05/20/2019 Findings: Heart size and mediastinal contours stable. Tracheostomy tube and gastrostomy tube again noted. Bilateral mixed interstitial and alveolar airspace disease is again noted with slight increased opacities in the right upper lung. Trace to small left pleural effusion not excluded. No evidence of pneumothorax. Osseous structures demonstrate no acute abnormality. IMPRESSION: Bilateral mixed interstitial and alveolar airspace opacities, slightly increased compared to the prior exam of 05/20/2019. Findings may be related to pulmonary edema and/or multifocal pneumonia. Clinical correlation/follow-up recommended. Tracheostomy and gastrostomy tubes noted.
[2019-06-04 10:52] LABS: COLOR,URINE YELLOW
--- NOTE | 2019-06-04 11:18 | NUR ---
ED Nurse Note: rectal temp checked. 100.5F. ERMD made aware. posterior skin clean and intact.
--- NOTE | 2019-06-04 11:19 | NUR ---
ED Nurse Note: pt more active as following nurse's finger side to side and smile.
[2019-06-04] MEDS ORDERED: Acetaminophen 650 MG SUPP RECTAL ONE (11:30)
--- NOTE | 2019-06-04 13:37 | NUR ---
ED Nurse Note: report given to HORTENCIA Nuñez
--- NOTE | 2019-06-04 13:41 | NUR ---
ED Nurse Note: Dr. Keating at bedside.
--- NOTE | 2019-06-04 13:55 | NUR ---
ED Nurse Note: pt left unit with 1 RN, 1 agricultural engineering technologist and 2 RT in stable condition.
--- NOTE | 2019-06-04 14:05 | NUR ---
NURSE NOTES: Patient received lying in bed, eyes open, non-verbal. Trach to vent with settings AC - 16, TV-500, FiO2-50, PEEP-5, oxygen saturation at 100%, no acute distress. No signs of pain noted. G-tube clamped, dressing changed. Abdomen large and distended, soft not firm. Noted with loose to semi-formed BM, perineal care provided. Skin assessment done, skin intact. Generalized edema noted. Sinu arrhythmia on the monitor. Will continue to monitor.
--- NOTE | 2019-06-04 14:43 | Pulmonolgy Critical Care Note ---
Critical Care - Asmt/Plan Problems: (1) Acute and chronic respiratory failure (2) Nosocomial pneumonia (3) Acute metabolic encephalopathy (4) Anemia in chronic kidney disease (CKD) (5) Renal failure (ARF), acute on chronic (6) NSTEMI (non-ST elevated myocardial infarction) (7) G tube feedings (8) History of CVA (cerebrovascular accident) (9) CAD (coronary artery disease) (10) Right hemiplegia (11) Diabetes mellitus (12) Hypertensive heart disease Respiratory: monitor respiratory rate, adjust FIO2 Cardiac: continue pressors, stop pressors, continue to monitor HR/BP Renal: F/U I&O, keep IV fluid Infectious Disease: check cultures Gastrointestinal: continue feedings/current rate Endocrine: monitor blood sugar, continue sliding scale insulin Hematologic: monitor H/H, transfuse if hgb<8.5 Neurologic: PRN Ativan, PRN Morphine, keep patient comfortable Affect: PRN ativan Prophylaxis: Protonix Time Spent (Minutes): 40 Notes Reviewed: cardio, renal Discussed with: nurses, consultants, mattress spring encaserdistrict manager in training - Objective Last 24 Hour Vital Signs Date Time Temp Pulse Resp B/P (MAP) Pulse Ox O2 Delivery O2 Flow Rate FiO2 06/04/19 13:55 98.8 86 18 189/91 100 Mechanical Ventilator 50 06/04/19 13:13 60 18 50 06/04/19 12:54 98.8 86 16 140/86 100 Mechanical Ventilator 50 06/04/19 12:01 98.8 06/04/19 11:17 100.5 06/04/19 10:11 68 16 97 Mechanical Ventilator 50 06/04/19 10:04 85 22 96 Mechanical Ventilator 50 06/04/19 10:01 50 06/04/19 09:57 98.2 89 22 145/85 98 Mechanical Ventilator 50 06/04/19 09:57 85 22 Mechanical Ventilator 50 06/04/19 09:53 85 22 50 06/04/19 09:51 85 22 95 Mechanical Ventilator 50 06/04/19 09:39 95 145/85 (105) 93 Mechanical Ventilator Status: obtunded Condition: critical HEENT: atraumatic Lungs: clear Heart: HR/BP stable, HR/BP unstable Abdomen: soft, non-tender, feeding tube Extremities: edema Decubiti: stage Micro: Microbiology Date/Time Source Procedure Growth Status 06/04/19 10:00 Rectum Received Critical Care - Subjective ROS Limited/Unobtainable: Yes Condition: critical EKG Rhythm: Sinus Rhythm FI02: 50 Vent Support Breath Rate: 16 Vent Support Mode: AC Vent Tidal Volume: 500 Sputum Amount: Small PEEP: 5.0 PIP: 45 CXR: increased infiltrate Labs: Laboratory Tests Test 06/04/19 10:00 06/04/19 10:30 06/04/19 11:27 06/04/19 12:15 White Blood Count 17.7 K/UL (4.8-10.8) H Red Blood Count 3.07 M/UL (4.20-5.40) L Hemoglobin 9.2 G/DL (12.0-16.0) L Hematocrit 31.1 % (37.0-47.0) L Mean Corpuscular Volume 101 FL (80-99) H Mean Corpuscular Hemoglobin 30.0 PG (27.0-31.0) Mean Corpuscular Hemoglobin Concent 29.6 G/DL (32.0-36.0) L Red Cell Distribution Width 22.3 % (11.6-14.8) H Platelet Count 211 K/UL (150-450) Mean Platelet Volume 7.0 FL (6.5-10.1) Neutrophils (%) (Auto) 68.2 % (45.0-75.0) Lymphocytes (%) (Auto) 25.3 % (20.0-45.0) Monocytes (%) (Auto) 4.7 % (1.0-10.0) Eosinophils (%) (Auto) 1.3 % (0.0-3.0) Basophils (%) (Auto) 0.5 % (0.0-2.0) Prothrombin Time 11.5 SEC (9.30-11.50) Prothromb Time International Ratio 1.1 (0.9-1.1) Activated Partial Thromboplast Time 28 SEC (23-33) Sodium Level 134 MMOL/L (136-145) L Potassium Level 4.9 MMOL/L (3.5-5.1) Chloride Level 107 MMOL/L (98-107) Carbon Dioxide Level 22 MMOL/L (21-32) Anion Gap 5 mmol/L (5-15) Blood Urea Nitrogen 59 mg/dL (7-18) H Creatinine 1.3 MG/DL (0.55-1.30) Estimat Glomerular Filtration Rate mL/min (>60) Glucose Level 278 MG/DL (74-106) H Lactic Acid Level 3.80 mmol/L (0.4-2.0) H 2.00 mmol/L (0.66-2.22) Calcium Level 8.8 MG/DL (8.5-10.1) Magnesium Level 2.1 MG/DL (1.8-2.4) Total Bilirubin 0.6 MG/DL (0.2-1.0) Aspartate Amino Transf (AST/SGOT) 33 U/L (15-37) Alanine Aminotransferase (ALT/SGPT) 11 U/L (12-78) L Alkaline Phosphatase 196 U/L (46-116) H Total Creatine Kinase 27 U/L (26-308) Troponin I 0.141 ng/mL (0.000-0.056) Pro-B-Type Natriuretic Peptide 63218 pg/mL (0-125) H Total Protein 7.9 G/DL (6.4-8.2) Albumin 2.0 G/DL (3.4-5.0) L Globulin 5.9 g/dL Albumin/Globulin Ratio 0.3 (1.0-2.7) L Lipase 135 U/L (73-393) Urine Color Yellow Urine Appearance Cloudy Urine pH 5 (4.5-8.0) Urine Specific [place] 1.015 (1.005-1.035) Urine Protein 4+ (NEGATIVE) H Urine Glucose (UA) Negative (NEGATIVE) Urine Ketones Negative (NEGATIVE) Urine Blood 3+ (NEGATIVE) H Urine Nitrite Negative (NEGATIVE) Urine Bilirubin Negative (NEGATIVE) Urine Urobilinogen 4 MG/DL (0.0-1.0) H Urine Leukocyte Esterase 1+ (NEGATIVE) H Urine RBC 5-10 /HPF (0 - 2) H Urine WBC 2-4 /HPF (0 - 2) Urine Squamous Epithelial Cells None /LPF (NONE/OCC) Urine Amorphous Sediment Many /LPF (NONE) H Urine Bacteria Few /HPF (NONE) Arterial Blood pH 7.380 (7.350-7.450) Arterial Blood Partial Pressure CO2 36.5 mmHg (35.0-45.0) Arterial Blood Partial Pressure O2 72.0 mmHg (75.0-100.0) L Arterial Blood HCO3 21.1 mmol/L (22.0-26.0) L Arterial Blood Oxygen Saturation 93.3 % (95-100) L Arterial Blood Base Excess -3.6 (-2-2) L Marlo Test Positive Tony Springer MD Jun 04, 2019 14:43
[2019-06-04] MEDS ORDERED: Albuterol/Ipratropium 3ml neb HHN PRN (14:45)
[2019-06-04] MEDS ORDERED: Miralax 17gm pkt ORAL PRN (14:45)
[2019-06-04] MEDS ORDERED: Morphine Sulfate 4mg/ml Inj (IV USE ONLY) IVP PRN (14:45)
[2019-06-04] MEDS ORDERED: LORazepam Inj 2mg/ml 1ml IV PRN (14:45)
--- NOTE | 2019-06-04 14:48 | Cardiac Electrophysiology PN ---
Subjective Subjective [id number] Objective Last 24 Hour Vital Signs Date Time Temp Pulse Resp B/P (MAP) Pulse Ox O2 Delivery O2 Flow Rate FiO2 06/04/19 13:55 98.8 86 18 189/91 100 Mechanical Ventilator 50 06/04/19 13:13 60 18 50 06/04/19 12:54 98.8 86 16 140/86 100 Mechanical Ventilator 50 06/04/19 12:01 98.8 06/04/19 11:17 100.5 06/04/19 10:11 68 16 97 Mechanical Ventilator 50 06/04/19 10:04 85 22 96 Mechanical Ventilator 50 06/04/19 10:01 50 06/04/19 09:57 98.2 89 22 145/85 98 Mechanical Ventilator 50 06/04/19 09:57 85 22 Mechanical Ventilator 50 06/04/19 09:53 85 22 50 06/04/19 09:51 85 22 95 Mechanical Ventilator 50 06/04/19 09:39 95 145/85 (105) 93 Mechanical Ventilator Laboratory Tests Test 06/04/19 10:00 06/04/19 10:30 06/04/19 11:27 06/04/19 12:15 White Blood Count 17.7 K/UL (4.8-10.8) H Red Blood Count 3.07 M/UL (4.20-5.40) L Hemoglobin 9.2 G/DL (12.0-16.0) L Hematocrit 31.1 % (37.0-47.0) L Mean Corpuscular Volume 101 FL (80-99) H Mean Corpuscular Hemoglobin 30.0 PG (27.0-31.0) Mean Corpuscular Hemoglobin Concent 29.6 G/DL (32.0-36.0) L Red Cell Distribution Width 22.3 % (11.6-14.8) H Platelet Count 211 K/UL (150-450) Mean Platelet Volume 7.0 FL (6.5-10.1) Neutrophils (%) (Auto) 68.2 % (45.0-75.0) Lymphocytes (%) (Auto) 25.3 % (20.0-45.0) Monocytes (%) (Auto) 4.7 % (1.0-10.0) Eosinophils (%) (Auto) 1.3 % (0.0-3.0) Basophils (%) (Auto) 0.5 % (0.0-2.0) Prothrombin Time 11.5 SEC (9.30-11.50) Prothromb Time International Ratio 1.1 (0.9-1.1) Activated Partial Thromboplast Time 28 SEC (23-33) Sodium Level 134 MMOL/L (136-145) L Potassium Level 4.9 MMOL/L (3.5-5.1) Chloride Level 107 MMOL/L (98-107) Carbon Dioxide Level 22 MMOL/L (21-32) Anion Gap 5 mmol/L (5-15) Blood Urea Nitrogen 59 mg/dL (7-18) H Creatinine 1.3 MG/DL (0.55-1.30) Estimat Glomerular Filtration Rate mL/min (>60) Glucose Level 278 MG/DL (74-106) H Lactic Acid Level 3.80 mmol/L (0.4-2.0) H 2.00 mmol/L (0.66-2.22) Calcium Level 8.8 MG/DL (8.5-10.1) Magnesium Level 2.1 MG/DL (1.8-2.4) Total Bilirubin 0.6 MG/DL (0.2-1.0) Aspartate Amino Transf (AST/SGOT) 33 U/L (15-37) Alanine Aminotransferase (ALT/SGPT) 11 U/L (12-78) L Alkaline Phosphatase 196 U/L (46-116) H Total Creatine Kinase 27 U/L (26-308) Troponin I 0.141 ng/mL (0.000-0.056) Pro-B-Type Natriuretic Peptide 01908 pg/mL (0-125) H Total Protein 7.9 G/DL (6.4-8.2) Albumin 2.0 G/DL (3.4-5.0) L Globulin 5.9 g/dL Albumin/Globulin Ratio 0.3 (1.0-2.7) L Lipase 135 U/L (73-393) Urine Color Yellow Urine Appearance Cloudy Urine pH 5 (4.5-8.0) Urine Specific [place] 1.015 (1.005-1.035) Urine Protein 4+ (NEGATIVE) H Urine Glucose (UA) Negative (NEGATIVE) Urine Ketones Negative (NEGATIVE) Urine Blood 3+ (NEGATIVE) H Urine Nitrite Negative (NEGATIVE) Urine Bilirubin Negative (NEGATIVE) Urine Urobilinogen 4 MG/DL (0.0-1.0) H Urine Leukocyte Esterase 1+ (NEGATIVE) H Urine RBC 5-10 /HPF (0 - 2) H Urine WBC 2-4 /HPF (0 - 2) Urine Squamous Epithelial Cells None /LPF (NONE/OCC) Urine Amorphous Sediment Many /LPF (NONE) H Urine Bacteria Few /HPF (NONE) Arterial Blood pH 7.380 (7.350-7.450) Arterial Blood Partial Pressure CO2 36.5 mmHg (35.0-45.0) Arterial Blood Partial Pressure O2 72.0 mmHg (75.0-100.0) L Arterial Blood HCO3 21.1 mmol/L (22.0-26.0) L Arterial Blood Oxygen Saturation 93.3 % (95-100) L Arterial Blood Base Excess -3.6 (-2-2) L Marlo Test Positive Microbiology Date/Time Source Procedure Growth Status 06/04/19 10:00 Rectum Received Claude Pena MD Jun 04, 2019 14:48
[2019-06-04] MEDS ORDERED: Dextrose 50% 25ml Syringe IV PRN (15:30)
--- NOTE | 2019-06-04 15:30 | NUR ---
NURSE NOTES: Patient not receiving enough volume with SIMV settings, tried x2 with RT. Will inform Dr. Springer.
[2019-06-04] MEDS ORDERED: FUROSEMIDE20 M1 ORAL (19:13)
--- NOTE | 2019-06-04 19:15 | NUR ---
NURSE NOTES:Received pt with eyes open and with good eye contact, SR on thr monitor, Bp stable, afebrile, Trache to vent on AC mode, 02 sat >95%, Pt with Jevity 1.2 fdg at this time at 20ml/hr. Tolerated. HOb kept elevated, on aspiration precaution. Pt als has 2-3+ edema to all extremities- Turned q 2hrs prn with good skin care done.-Will continue to monitor.
--- NOTE | 2019-06-04 19:30 | NUR ---
NURSE NOTES:Received pt with eyes open and with good eye contact. Trache to vent on ac mode, SR on the monitor, bp stable afebrile.. Left chest IV site patent to flushes. Pt is incontinent of stool and urine. cleaned up pt. Pt is obese but skin is intact- Will continue to monitor.
--- NOTE | 2019-06-04 19:30 | NUR ---
HAND-OFF: Report given to HORTENCIA Avendano.
--- NOTE | 2019-06-04 19:30 | NUR ---
NURSE NOTES:[id number] pt , resting well, opening eye to pain and been off Fentanyl drip. Orally intubated on ac mode, Sinus chrissy on the monitor. BP stable. Afebrile. Tolerated GoT fdg .HOB kept elrvated Left arm left wrist oft restraint. Will continue t0 monitor. Addendum: 06/05/19 at 0741 by MANDY UREÑA RN wrong patient
--- NOTE | 2019-06-04 19:54 | NUR ---
NURSE NOTES:Aware Dr Rodriguez, troponin 0.649- awaiting md to call back.
[2019-06-04] MEDS: Zosyn 3.375gm q8h **Extended infusion IVPB SCH ×2 (20:11)
--- NOTE | 2019-06-04 21:00 | NUR ---
NURSE NOTES:Purewick was placed and working well draining lg amt of yellowish urine after Lasix Iv was given- will continue to monitor.
[2019-06-04] MEDS: Metoprolol 25mg tab ORAL SCH (21:02)
[2019-06-04] MEDS: Heparin 5000 units/ml inj SUBQ SCH (21:03)
--- NOTE | 2019-06-04 21:15 | History and Physical Report ---
DATE OF ADMISSION: 06/04/2019 TIME SEEN: 1 p.m. CONSULTANTS: 1. Tony Springer M.D. 2. Phu Haque M.D. CHIEF COMPLAINT: Weakness, lethargy, shortness of breath, severe pneumonia, and sepsis. BRIEF HISTORY: This is a 79-year-old female from [facility], who presents to [place] ER with increased weakness, lethargy, and shortness of breath, diagnosed with severe pneumonia and sepsis, being admitted to ICU. Currently, trach, vent, altered, awake in the ER, awaiting bed. REVIEW OF SYSTEMS: Unavailable. PAST MEDICAL HISTORY: Respiratory failure, NSTEMI, CVA, CAD, diabetes, hypertension, CKD, and encephalopathy. PAST SURGICAL HISTORY: Trach. ALLERGIES: Denies. MEDICATIONS: Include aspirin, Tylenol, Zosyn, vancomycin, levofloxacin, IV fluids, and albuterol. SOCIAL HISTORY: Unable to obtain secondary to the patient's condition. PHYSICAL EXAMINATION: GENERAL: Trach, vent, altered, lethargic in bed, nonverbal. VITAL SIGNS: Temperature is 98 degrees, pulse 86, respirations 16, and blood pressure 140/86. CARDIOVASCULAR: No murmurs. LUNGS: Poor air exchange. ABDOMEN: Bowel sounds distant. EXTREMITIES: No cyanosis, clubbing, or edema. NEUROLOGIC: The patient is flaccid in bed, not really following directions. LABORATORY AND DIAGNOSTIC DATA: Labs at this time show white count 17, H and H 9.2/31, and platelets 211,000. BMP shows sodium 134, BUN 59, glucose 278. Troponin 0.141. BNP is 34,950. Albumin 2.0. INR is 1.1. PTT is 28. Urinalysis, 1+ leukocyte esterase. ASSESSMENT: 1. Severe pneumonia. 2. Sepsis. 3. Elevated troponin. 4. Urinary tract infection. 5. Respiratory failure. 6. Trach/vent. 7. Anemia. 8. Malnutrition. 9. Non-ST elevation myocardial infarction. 10. Cerebrovascular accident. 11. Coronary artery disease. 12. Diabetes. 13. Hypertension. 14. Chronic kidney disease. 15. Encephalopathy. PLAN: 1. Vent per Pulmonary. 2. Antibiotics per Infectious Disease. 3. Blood pressure and blood sugar control. 4. Dietary evaluation and check labs in a.m. 5. We will continue to follow the patient. 6. We will add cardiology evaluation to further evaluate elevated troponin. Jama Keating D.O. DR: NILDA JOB#: [id number] CC:
--- NOTE | 2019-06-04 23:00 | NUR ---
NURSE NOTES:Resting well with VSS,
--- NOTE | 2019-06-04 23:45 | Consultation ---
DATE OF CONSULTATION: 06/04/2019 CARDIOLOGY CONSULTATION CONSULTING PHYSICIAN: Claude Pena M.D. REFERRING PHYSICIAN: Jama Keating D.O. REASON FOR CONSULTATION: Elevated abnormal electrocardiogram and severe anasarca. HISTORY OF PRESENT ILLNESS: The patient is a 79-year-old lady with history of ventilator-dependent failure status post tracheostomy on May 03, 2019 as well as history of dysphagia, status post PEG placed on April 22, 2019, history of atrial flutter, hypertension, and coronary artery disease, who was just recently discharged. The [facility]. The patient was hypotensive in the field. Her blood pressure in the ER was 147/84 with a pulse of 95 and saturation of 93%. At the time of my evaluation, the patient is alert and responsive despite being on the ventilator. REVIEW OF SYSTEMS: Cannot be obtained. PAST MEDICAL HISTORY: As mentioned above. FAMILY HISTORY: Noncontributory. SOCIAL HISTORY: She is a shelter resident. Does not smoke or drink alcohol. PHYSICAL EXAMINATION: VITAL SIGNS: Show blood pressure of 189/91, pulse is 86, respirations 18, and temperature 98.8 with a maximum T was 100.5. HEAD AND NECK: Shows no JVD. LUNGS: Decreased breath sounds. She is status post tracheostomy. CARDIOVASCULAR: Shows regular S1 and S2 with no gallop. ABDOMEN: Status post G-tube. EXTREMITIES: Have anasarca. LABORATORY AND DIAGNOSTIC DATA: Her EKG shows sinus rhythm with inferior and lateral T-wave inversions suggestive of ischemia. Labs show white count of 17.7, hemoglobin of 9.2, hematocrit of 31.1, and platelet count of 211,000. Sodium is 134, potassium 4.9, BUN of 59, creatinine 1.3, and glucose of 278. BNP is 35,000. ASSESSMENT AND PLAN: 1. Congestive heart failure with BNP of 35,000. Start the patient on Lasix 40 mg IV b.i.d. The last echocardiogram was on April 13, 2019 with EF of 55% to 60%. 2. Hypertension. Initially hypotensive 190s. Resume 40 mg of Lasix IV b.i.d. 3. History of atrial flutter and this self-terminated. 4. Coronary artery disease with inferolateral T-wave inversion, completely rule out CO protocol. Add low-dose beta-jose. Continue Plavix. 5. Sepsis with elevated white count. She was started on IV antibiotics. 6. Ventilator-dependent respiratory failure, status post tracheostomy on May 03, 2019. 7. Dysphagia, status post PEG tube on April 22, 2019. 8. History of CVA and hemiplegia. 9. Nonverbal status. 10. History of anemia status post blood transfusion. 11. Status post renal failure. BUN and creatinine is 15 and 1.3. 12. Lactic acidosis, likely due to sepsis. Thank you very much, Dr. Keating, for allowing me to participate in the care of this patient. Please do not hesitate to contact me for any questions regarding my evaluation. Claude Pena M.D. DR: CATINA JOB#: [id number] CC:
[2019-06-05] VITALS (24 sets, daily range): BP systolic 126–155; BP diastolic 58–89
--- NOTE | 2019-06-05 02:00 | NUR ---
NURSE NOTES:Tolerating GT fdg, no residual HOB kept elevated. ON aspiration precaution.
[2019-06-05 03:05] LABS: HEMATOCRIT 25.2 % (37.0-47.0); HEMOGLOBIN 7.6 G/DL (12.0-16.0); MEAN CORPUSCULAR VOLUME 99 FL (80-99); PLATELET COUNT 157 K/UL (150-450); RED BLOOD COUNT 2.55 M/UL (4.20-5.40); WHITE BLOOD COUNT 10.8 K/UL (4.8-10.8)
[2019-06-05 03:16] LABS: ANION GAP 7 mmol/L (5-15); BLOOD UREA NITROGEN 55 mg/dL (7-18); CALCIUM 8.5 MG/DL (8.5-10.1); CARBON DIOXIDE 26 MMOL/L (21-32); CHLORIDE 113 MMOL/L (98-107); CREATININE 1.2 MG/DL (0.55-1.30); POTASSIUM 3.9 MMOL/L (3.5-5.1); SODIUM 146 MMOL/L (136-145)
[2019-06-05 03:19] LABS: ALBUMIN 1.7 G/DL (3.4-5.0); ANION GAP 8 mmol/L (5-15); BLOOD UREA NITROGEN 55 mg/dL (7-18); CALCIUM 8.5 MG/DL (8.5-10.1); CARBON DIOXIDE 26 MMOL/L (21-32); CHLORIDE 112 MMOL/L (98-107); CREATININE 1.2 MG/DL (0.55-1.30); PHOSPHORUS 4.1 MG/DL (2.5-4.9); POTASSIUM 3.9 MMOL/L (3.5-5.1); SODIUM 146 MMOL/L (136-145)
--- NOTE | 2019-06-05 04:00 | NUR ---
NURSE NOTES:Complete bed bath with bed changed done. Suctioned light brownish secretions moderate in amt. 02 sat 100%.
--- NOTE | 2019-06-05 06:00 | NUR ---
NURSE NOTES:Dr Springer came and evaluated pt with orders of blood transfusion.
[2019-06-05] MEDS: Zosyn 3.375gm q8h **Extended infusion IVPB SCH ×2 (06:14)
--- NOTE | 2019-06-05 06:26 | Pulmonolgy Critical Care Note ---
Critical Care - Asmt/Plan Problems: (1) Acute and chronic respiratory failure (2) Nosocomial pneumonia (3) Acute metabolic encephalopathy (4) Anemia in chronic kidney disease (CKD) (5) Renal failure (ARF), acute on chronic (6) NSTEMI (non-ST elevated myocardial infarction) (7) G tube feedings (8) History of CVA (cerebrovascular accident) (9) CAD (coronary artery disease) (10) Right hemiplegia (11) Diabetes mellitus (12) Hypertensive heart disease Respiratory: monitor respiratory rate, adjust FIO2, CXR Cardiac: continue to monitor HR/BP Renal: F/U I&O, check electrolytes Infectious Disease: continue antibiotics Gastrointestinal: continue feedings/current rate, hold feedings Endocrine: check HgA1C Hematologic: transfuse if hgb<8.5 Neurologic: PRN Morphine, keep patient comfortable Affect: PRN ativan Disposition: keep in ICU Notes Reviewed: cloud infrastructure architect, cardio Discussed with: nurses, consultants, manager of case managementdivision merchandise manager - Objective Last 24 Hour Vital Signs Date Time Temp Pulse Resp B/P (MAP) Pulse Ox O2 Delivery O2 Flow Rate FiO2 06/05/19 05:09 75 22 50 06/05/19 03:26 68 16 50 06/05/19 01:30 66 16 50 06/04/19 23:02 68 20 50 06/04/19 21:30 71 16 50 06/04/19 21:02 79 169/88 06/04/19 19:30 70 15 50 06/04/19 19:00 71 17 158/90 (112) 99 06/04/19 18:00 98.0 71 19 148/99 (115) 100 06/04/19 17:30 73 22 50 06/04/19 17:00 71 20 140/50 (80) 99 06/04/19 16:00 70 06/04/19 16:00 Mechanical Ventilator 06/04/19 16:00 35 06/04/19 16:00 70 19 177/89 (118) 100 06/04/19 15:21 67 24 50 06/04/19 15:00 67 20 142/92 (109) 100 06/04/19 14:14 68 06/04/19 14:06 97.4 70 18 145/89 (107) 100 06/04/19 14:05 Mechanical Ventilator 06/04/19 13:55 98.8 86 18 189/91 100 Mechanical Ventilator 50 06/04/19 13:13 60 18 50 06/04/19 12:54 98.8 86 16 140/86 100 Mechanical Ventilator 50 06/04/19 12:01 98.8 06/04/19 11:17 100.5 06/04/19 10:11 68 16 97 Mechanical Ventilator 50 06/04/19 10:04 85 22 96 Mechanical Ventilator 50 06/04/19 10:01 50 06/04/19 09:57 98.2 89 22 145/85 98 Mechanical Ventilator 50 06/04/19 09:57 85 22 Mechanical Ventilator 50 06/04/19 09:53 85 22 50 06/04/19 09:51 85 22 95 Mechanical Ventilator 50 06/04/19 09:39 95 145/85 (105) 93 Mechanical Ventilator Status: obtunded Condition: critical HEENT: atraumatic Heart: HR/BP stable, regular Abdomen: active bowel sounds Extremities: no C/C/E, edema Micro: Microbiology Date/Time Source Procedure Growth Status 06/04/19 10:00 Rectum Received Critical Care - Subjective ROS Limited/Unobtainable: Yes Condition: critical EKG Rhythm: Sinus Rhythm FI02: 50 Vent Support Breath Rate: 16 Vent Support Mode: AC Vent Tidal Volume: 500 Sputum Amount: Small PEEP: 5.0 PIP: 34 Tube Feeding Amount: 20 I&O: Intake and Output 06/04/19 06/05/19 19:00 07:00 Intake Total 3280 ml 20 ml Balance 3280 ml 20 ml Intake Oral 0 ml IV Total 3260 ml Tube Feeding 20 ml 20 ml # Voids 2 # Bowel Movements 3 Labs: Laboratory Tests Test 06/04/19 10:00 06/04/19 10:30 06/04/19 11:27 06/04/19 12:15 White Blood Count 17.7 K/UL (4.8-10.8) H Red Blood Count 3.07 M/UL (4.20-5.40) L Hemoglobin 9.2 G/DL (12.0-16.0) L Hematocrit 31.1 % (37.0-47.0) L Mean Corpuscular Volume 101 FL (80-99) H Mean Corpuscular Hemoglobin 30.0 PG (27.0-31.0) Mean Corpuscular Hemoglobin Concent 29.6 G/DL (32.0-36.0) L Red Cell Distribution Width 22.3 % (11.6-14.8) H Platelet Count 211 K/UL (150-450) Mean Platelet Volume 7.0 FL (6.5-10.1) Neutrophils (%) (Auto) 68.2 % (45.0-75.0) Lymphocytes (%) (Auto) 25.3 % (20.0-45.0) Monocytes (%) (Auto) 4.7 % (1.0-10.0) Eosinophils (%) (Auto) 1.3 % (0.0-3.0) Basophils (%) (Auto) 0.5 % (0.0-2.0) Prothrombin Time 11.5 SEC (9.30-11.50) Prothromb Time International Ratio 1.1 (0.9-1.1) Activated Partial Thromboplast Time 28 SEC (23-33) Sodium Level 134 MMOL/L (136-145) L Potassium Level 4.9 MMOL/L (3.5-5.1) Chloride Level 107 MMOL/L (98-107) Carbon Dioxide Level 22 MMOL/L (21-32) Anion Gap 5 mmol/L (5-15) Blood Urea Nitrogen 59 mg/dL (7-18) H Creatinine 1.3 MG/DL (0.55-1.30) Estimat Glomerular Filtration Rate mL/min (>60) Glucose Level 278 MG/DL (74-106) H Lactic Acid Level 3.80 mmol/L (0.4-2.0) H 2.00 mmol/L (0.66-2.22) Calcium Level 8.8 MG/DL (8.5-10.1) Magnesium Level 2.1 MG/DL (1.8-2.4) Total Bilirubin 0.6 MG/DL (0.2-1.0) Aspartate Amino Transf (AST/SGOT) 33 U/L (15-37) Alanine Aminotransferase (ALT/SGPT) 11 U/L (12-78) L Alkaline Phosphatase 196 U/L (46-116) H Total Creatine Kinase 27 U/L (26-308) Troponin I 0.141 ng/mL (0.000-0.056) Pro-B-Type Natriuretic Peptide 25717 pg/mL (0-125) H Total Protein 7.9 G/DL (6.4-8.2) Albumin 2.0 G/DL (3.4-5.0) L Globulin 5.9 g/dL Albumin/Globulin Ratio 0.3 (1.0-2.7) L Lipase 135 U/L (73-393) Carcinoembryonic Antigen Pending Urine Color Yellow Urine Appearance Cloudy Urine pH 5 (4.5-8.0) Urine Specific [place] 1.015 (1.005-1.035) Urine Protein 4+ (NEGATIVE) H Urine Glucose (UA) Negative (NEGATIVE) Urine Ketones Negative (NEGATIVE) Urine Blood 3+ (NEGATIVE) H Urine Nitrite Negative (NEGATIVE) Urine Bilirubin Negative (NEGATIVE) Urine Urobilinogen 4 MG/DL (0.0-1.0) H Urine Leukocyte Esterase 1+ (NEGATIVE) H Urine RBC 5-10 /HPF (0 - 2) H Urine WBC 2-4 /HPF (0 - 2) Urine Squamous Epithelial Cells None /LPF (NONE/OCC) Urine Amorphous Sediment Many /LPF (NONE) H Urine Bacteria Few /HPF (NONE) Arterial Blood pH 7.380 (7.350-7.450) Arterial Blood Partial Pressure CO2 36.5 mmHg (35.0-45.0) Arterial Blood Partial Pressure O2 72.0 mmHg (75.0-100.0) L Arterial Blood HCO3 21.1 mmol/L (22.0-26.0) L Arterial Blood Oxygen Saturation 93.3 % (95-100) L Arterial Blood Base Excess -3.6 (-2-2) L Marlo Test Positive Test 06/04/19 19:00 06/05/19 02:55 Troponin I 0.649 ng/mL (0.000-0.056) 0.427 ng/mL (0.000-0.056) White Blood Count 10.8 K/UL (4.8-10.8) Red Blood Count 2.55 M/UL (4.20-5.40) L Hemoglobin 7.6 G/DL (12.0-16.0) L Hematocrit 25.2 % (37.0-47.0) L Mean Corpuscular Volume 99 FL (80-99) Mean Corpuscular Hemoglobin 29.8 PG (27.0-31.0) Mean Corpuscular Hemoglobin Concent 30.2 G/DL (32.0-36.0) L Red Cell Distribution Width 22.0 % (11.6-14.8) H Platelet Count 157 K/UL (150-450) Mean Platelet Volume 7.1 FL (6.5-10.1) Neutrophils (%) (Auto) % (45.0-75.0) Lymphocytes (%) (Auto) % (20.0-45.0) Monocytes (%) (Auto) % (1.0-10.0) Eosinophils (%) (Auto) % (0.0-3.0) Basophils (%) (Auto) % (0.0-2.0) Differential Total Cells Counted 100 Neutrophils % (Manual) 73 % (45-75) Lymphocytes % (Manual) 18 % (20-45) L Monocytes % (Manual) 6 % (1-10) Eosinophils % (Manual) 3 % (0-3) Basophils % (Manual) 0 % (0-2) Band Neutrophils 0 % (0-8) Platelet Estimate Adequate Platelet Morphology Normal Hypochromasia 3+ Anisocytosis 3+ Sodium Level 146 MMOL/L (136-145) H Potassium Level 3.9 MMOL/L (3.5-5.1) Chloride Level 112 MMOL/L (98-107) H Carbon Dioxide Level 26 MMOL/L (21-32) Anion Gap 8 mmol/L (5-15) Blood Urea Nitrogen 55 mg/dL (7-18) H Creatinine 1.2 MG/DL (0.55-1.30) Estimat Glomerular Filtration Rate mL/min (>60) Glucose Level 76 MG/DL (74-106) Calcium Level 8.5 MG/DL (8.5-10.1) Phosphorus Level 4.1 MG/DL (2.5-4.9) Pro-B-Type Natriuretic Peptide > 41539 pg/mL (0-125) H Albumin 1.7 G/DL (3.4-5.0) Tony Cardona MD Jun 05, 2019 06:26
--- NOTE | 2019-06-05 07:20 | NUR ---
NURSE NOTES: Report received from Curry BURNETT.Pt resting in bed eyes open,does not follow command,noted no resp distress,with trach tube to mech vent,on current settings,tolerating well,no signs of pain or discomfort ,SR on the monitor,GTF Jevity 1.2 at 30ml/hr,no residual noted, HOB elevated ,incontinent of urine,on Pure wick draining yellow urine,PIV sites x2,RH heplock and LT chest with NS TKO rate,skin warm and dry,edematous noted upper and lower extremities,SR up x2,bed lock in lowest position,will continue with plans of care.
--- NOTE | 2019-06-05 07:35 | NUR ---
RESPIRATORY NOTE: received trach pt on current vent settings. trach size shiley 8, secured via trach tie/guard, midline and patent. no resp distress noted at this time. alarms are set and audible with back up trach and ambu bag at bedside. will cont to monitor.
--- NOTE | 2019-06-05 07:51 | NUR ---
NURSE NOTES: Endorsed to HORTENCIA malin blood transfusion orders.
--- NOTE | 2019-06-05 07:52 | NUR ---
HAND-OFF: Report given to Mary Mccarty using sbar..
--- NOTE | 2019-06-05 08:30 | NUR ---
RD ASSESSMENT & RECOMMENDATIONS SEE CARE ACTIVITY FOR COMPLETE ASSESSMENT DAILY ESTIMATED NEEDS: Needs based on Critical care, CHF, DM/ 56.8kg abw 22-28 kcals/kg 9225-1180 total kcals 1.2-2 g protein/kg 68-114 g total protein 20-22 mL/kg 7341-7930 total fluid mLs NUTRITION DIAGNOSIS: * Swallowing difficulty R/T dysphagia, h/o CVA, respiratory status as evidenced by pt trach/vent dep, PEG dep. * Altered nutrition related lab values R/T CHF, diabetes as evidenced by BNP >96454, A1C of 6.6 on 05/18, BG of 278 upon adm -> now wnl. CURRENT TF:Jevity 1.2 @ 30ml/hr x 24 hrs ENTERAL NUTRITION RECOMMENDATIONS: Glucerna 1.5 @ 40ml/hr x 24 hrs to provide 960ml, 1440kcal, 79g prot, 729ml free water * Rec TF change to Glucerna 1.5: DM dx, for less free fluids (edematous, CHF dx w/ BNP >39053) * Initiate Glucerna 1.5 @ 20ml/hr x 6 hrs, advance 10ml q 4-6 hrs as tolerated to goal rate. * HOB over 30 degrees/ water flush per MD ADDITIONAL RECOMMENDATIONS: * Calibrated bedscale wt for accurate CBW * Monitor lytes daily, replete as needed * NISS for BG control- DM dx . . .
--- NOTE | 2019-06-05 09:12 | General Progress Note ---
Assessment/Plan Problem List: (1) Acute and chronic respiratory failure ICD Codes: J96.20 - Acute and chronic respiratory failure, unspecified whether with hypoxia or hypercapnia SNOMED: 57376475 (2) History of CVA (cerebrovascular accident) ICD Codes: Z86.73 - Personal history of transient ischemic attack (TIA), and cerebral infarction without residual deficits SNOMED: 004179741 (3) CAD (coronary artery disease) ICD Codes: I25.10 - Atherosclerotic heart disease of [place] coronary artery without angina pectoris SNOMED: 19339462 (4) Right hemiplegia ICD Codes: G81.91 - Hemiplegia, unspecified affecting right dominant side SNOMED: 821172949 (5) Diabetes mellitus ICD Codes: E11.9 - Type 2 diabetes mellitus without complications SNOMED: 19922271 (6) Hypertensive heart disease ICD Codes: I11.9 - Hypertensive heart disease without heart failure SNOMED: 86646025 (7) 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2 - Chronic kidney disease, stage 2 (mild); D63.1 - Anemia in chronic kidney disease (11) Severe sepsis ICD Codes: A41.9 - Sepsis, unspecified organism; R65.20 - Severe sepsis without septic shock SNOMED: 09465503 Status: unchanged Assessment/Plan: vent abx bp bs control cbc bmp am Subjective Constitutional: Reports: weakness Allergies: Coded Allergies: No Known Allergies (Unverified , 04/12/19) All Systems: reviewed and negative except above Subjective trach vent altered in icu Objective Last 24 Hour Vital Signs Date Time Temp Pulse Resp B/P (MAP) Pulse Ox O2 Delivery O2 Flow Rate FiO2 06/05/19 09:06 64 16 40 06/05/19 08:00 77 06/05/19 08:00 98.3 64 16 134/70 (91) 99 06/05/19 08:00 50 06/05/19 08:00 Mechanical Ventilator 06/05/19 07:32 75 16 50 06/05/19 07:00 70 16 137/64 (88) 99 06/05/19 06:00 73 16 151/70 (97) 99 06/05/19 05:09 75 22 50 06/05/19 05:00 74 16 152/80 (104) 99 06/05/19 04:00 50 06/05/19 04:00 98.6 74 16 152/80 (104) 99 06/05/19 04:00 Mechanical Ventilator 06/05/19 04:00 74 06/05/19 03:26 68 16 50 06/05/19 03:00 74 16 152/80 (104) 99 06/05/19 02:00 65 18 144/66 (92) 99 06/05/19 01:30 66 16 50 06/05/19 01:00 65 16 150/71 (97) 99 06/05/19 00:00 50 06/05/19 00:00 98.9 66 16 141/72 (95) 99 06/05/19 00:00 Mechanical Ventilator 06/05/19 00:00 66 06/04/19 23:02 68 20 50 06/04/19 23:00 67 16 139/80 (99) 99 06/04/19 22:00 65 16 150/84 (106) 99 06/04/19 21:30 71 16 50 06/04/19 21:02 79 169/88 06/04/19 21:00 98.4 71 17 155/80 (105) 99 06/04/19 20:00 Mechanical Ventilator 06/04/19 20:00 98.4 71 17 155/80 (105) 99 06/04/19 20:00 50 06/04/19 19:30 70 15 50 06/04/19 19:00 71 17 158/90 (112) 99 06/04/19 18:00 98.0 71 19 148/99 (115) 100 06/04/19 17:30 73 22 50 06/04/19 17:00 71 20 140/50 (80) 99 06/04/19 16:00 70 06/04/19 16:00 Mechanical Ventilator 06/04/19 16:00 35 06/04/19 16:00 70 19 177/89 (118) 100 06/04/19 15:21 67 24 50 06/04/19 15:00 67 20 142/92 (109) 100 06/04/19 14:14 68 06/04/19 14:06 97.4 70 18 145/89 (107) 100 06/04/19 14:05 Mechanical Ventilator 06/04/19 13:55 98.8 86 18 189/91 100 Mechanical Ventilator 50 06/04/19 13:13 60 18 50 06/04/19 12:54 98.8 86 16 140/86 100 Mechanical Ventilator 50 06/04/19 12:01 98.8 06/04/19 11:17 100.5 06/04/19 10:11 68 16 97 Mechanical Ventilator 50 06/04/19 10:04 85 22 96 Mechanical Ventilator 50 06/04/19 10:01 50 06/04/19 09:57 98.2 89 22 145/85 98 Mechanical Ventilator 50 06/04/19 09:57 85 22 Mechanical Ventilator 50 06/04/19 09:53 85 22 50 06/04/19 09:51 85 22 95 Mechanical Ventilator 50 06/04/19 09:39 95 145/85 (105) 93 Mechanical Ventilator Intake and Output 06/04/19 06/05/19 19:00 07:00 Intake Total 3280 ml 380 ml Output Total 950 ml Balance 3280 ml -570 ml Intake Oral 0 ml Free Water 30 ml IV Total 3260 ml Tube Feeding 20 ml 350 ml Output Urine Total 950 ml # Voids 2 # Bowel Movements 3 Laboratory Tests 06/04/19 10:00: White Blood Count 17.7H, Red Blood Count 3.07L, Hemoglobin 9.2L, Hematocrit 31.1L, Mean Corpuscular Volume 101H, Mean Corpuscular Hemoglobin 30.0, Mean Corpuscular Hemoglobin Concent 29.6L, Red Cell Distribution Width 22.3H, Platelet Count 211, Mean Platelet Volume 7.0, Neutrophils (%) (Auto) 68.2, Lymphocytes (%) (Auto) 25.3, Monocytes (%) (Auto) 4.7, Eosinophils (%) (Auto) 1.3, Basophils (%) (Auto) 0.5, Prothrombin Time 11.5, Prothromb Time International Ratio 1.1, Activated Partial Thromboplast Time 28, Sodium Level 134L, Potassium Level 4.9, Chloride Level 107, Carbon Dioxide Level 22, Anion Gap 5, Blood Urea Nitrogen 59H, Creatinine 1.3, Estimat Glomerular Filtration Rate , Glucose Level 278H, Lactic Acid Level 3.80H, Calcium Level 8.8, Magnesium Level 2.1, Total Bilirubin 0.6, Aspartate Amino Transf (AST/SGOT) 33, Alanine Aminotransferase (ALT/SGPT) 11L, Alkaline Phosphatase 196H, Total Creatine Kinase 27, Troponin I 0.141H, Pro-B-Type Natriuretic Peptide 92750Z, Total Protein 7.9, Albumin 2.0L, Globulin 5.9, Albumin/Globulin Ratio 0.3L, Lipase 135, Carcinoembryonic Antigen [Pending] 06/04/19 10:30: Urine Color Yellow, Urine Appearance Cloudy, Urine pH 5, Urine Specific [place] 1.015, Urine Protein 4+H, Urine Glucose (UA) Negative, Urine Ketones Negative, Urine Blood 3+H, Urine Nitrite Negative, Urine Bilirubin Negative, Urine Urobilinogen 4H, Urine Leukocyte Esterase 1+H, Urine RBC 5-10H, Urine WBC 2-4, Urine Squamous Epithelial Cells None, Urine Amorphous Sediment ManyH, Urine Bacteria Few 06/04/19 11:27: Arterial Blood pH 7.380, Arterial Blood Partial Pressure CO2 36.5, Arterial Blood Partial Pressure O2 72.0L, Arterial Blood HCO3 21.1L, Arterial Blood Oxygen Saturation 93.3L, Arterial Blood Base Excess -3.6L, Marlo Test Positive 06/04/19 12:15: Lactic Acid Level 2.00 06/04/19 19:00: Troponin I 0.649H 06/05/19 02:55: Troponin I 0.427H, White Blood Count 10.8, Red Blood Count 2.55L, Hemoglobin 7.6L, Hematocrit 25.2L, Mean Corpuscular Volume 99, Mean Corpuscular Hemoglobin 29.8, Mean Corpuscular Hemoglobin Concent 30.2L, Red Cell Distribution Width 22.0H, Platelet Count 157, Mean Platelet Volume 7.1, Neutrophils (%) (Auto) , Lymphocytes (%) (Auto) , Monocytes (%) (Auto) , Eosinophils (%) (Auto) , Basophils (%) (Auto) , Differential Total Cells Counted 100, Neutrophils % ( Manual) 73, Lymphocytes % (Manual) 18L, Monocytes % (Manual) 6, Eosinophils % ( Manual) 3, Basophils % (Manual) 0, Band Neutrophils 0, Platelet Estimate Adequate, Platelet Morphology Normal, Hypochromasia 3+, Anisocytosis 3+, Sodium Level 146H, Potassium Level 3.9, Chloride Level 112H, Carbon Dioxide Level 26, Anion Gap 8, Blood Urea Nitrogen 55H, Creatinine 1.2, Estimat Glomerular Filtration Rate , Glucose Level 76, Calcium Level 8.5, Phosphorus Level 4.1, Pro -B-Type Natriuretic Peptide > 32503R, Albumin 1.7L Height (Feet): 5 Height (Inches): 4.00 Weight (Pounds): 198 General Appearance: lethargic EENT: normal ENT inspection Neck: normal alignment Cardiovascular: normal peripheral pulses, normal rate, regular rhythm Respiratory/Chest: chest wall non-tender, lungs clear, normal breath sounds Abdomen: normal bowel sounds, non tender, soft Extremities: normal inspection Edema: 1+ Arm (L), 1+ Arm (R), 1+ Leg (L), 1+ Leg (R), 1+ Pedal (L), 1+ Pedal ( R), 1+ Generalized Edema: trace edema Neurologic: motor weakness Skin: normal pigmentation, warm/dry Jama Keating DO Jun 05, 2019 09:12
[2019-06-05] MEDS: Pantoprazole Inj IV SCH (09:58)
[2019-06-05] MEDS: Metoprolol 25mg tab ORAL SCH ×2 (09:58→20:51)
[2019-06-05] MEDS: Heparin 5000 units/ml inj SUBQ SCH ×2 (09:59→20:53)
--- NOTE | 2019-06-05 10:00 | NUR ---
NURSE NOTES: Ora/tracheal secretions suctioned to large amount of marin colored plegm,oral care done,turned and repositioned.
--- NOTE | 2019-06-05 11:17 | Consultation ---
History of Present Illness General Date patient seen: Jun 05, 2019 Chief Complaint: Dyspnea/Respdistress Present Illness HPI 79 y/o F with hx of Dm2, chronic resp failure s/p tarch/vent dependant, Aflutter , CAD, dysphagia s/p PEG, PNA, CKD, pHTN, CVA w/ R hemiplegia, HTN, nonverbal, recent admisssion for PNA and REMY (March and April 2019), SNF resident presented to ED on 06/04 with respiratory distress. Patient was hypotensive in the field but BP in ER 147/84. Of note, admitted on 05/17- for evaluation fo anemia and REMY and found to have extensive pulmonary infiltrates: edema vs PNA; treated empirically for PNA. Also admitted from 04/13-05/10/19 with SOB, sepsis. Was treated for PNA. Allergies: Coded Allergies: No Known Allergies (Unverified , 04/12/19) Medication History Scheduled Ascorbic Acid* (Vitamin C*), 500 MG GT DAILY, (Reported) Clopidogrel Bisulfate* (Plavix*), 75 MG GT DAILY, (Reported) Docusate Sodium (Docusate Sodium), 100 MG GT DAILY, (Reported) Epoetin Bandar (Epogen), 10,000 UNIT SUBQ 3XW, (Reported) Furosemide* (Lasix*), 20 MG ORAL DAILY, (Reported) Insulin Glargine (Lantus), 20 SUBQ BEDTIME, (Reported) Lansoprazole* (Lansoprazole*), 30 MG GT DAILY, (Reported) Metoprolol Tartrate* (Metoprolol Tartrate*), 25 MG GT EVERY 12 HOURS, (Reported) Multivitamin Liquid* (Multi-Delyn*), 15 ML GT DAILY, (Reported) Na Phos,M-B/Na Phos,Di-Ba* (Fleet Enema*), 133 ML RECTAL DAILY, (Reported) Scheduled PRN Acetaminophen 160MG/5ML* (Acetaminophen*), 20 ML GT Q4HR PRN for Mild Pain/Temp > 100.5, (Reported) Miscellaneous Medications Insulin Aspart (Novolog), 100 UNIT SQ, (Reported) Discontinued Medications Albuterol Sulfate* (Albuterol Sulfate Hhn*), 3 ML INH Q6H, (Reported) Discontinued Reason: Pt stopped taking med Ascorbic Acid* (Vitamin C*), 500 MG GT DAILY, (Reported) Discontinued Reason: Pt stopped taking med Bisacodyl (Dulcolax), 10 MG RC DAILY PRN for Constipation, (Reported) Discontinued Reason: Pt stopped taking med Ferrous Sulfate* (Ferrous Sulfate*), 330 MG GT DAILY, (Reported) Discontinued Reason: Pt stopped taking med Furosemide* (Lasix*), 40 MG GT DAILY, (Reported) Discontinued Reason: Prescription changed Hydralazine Hcl* (Hydralazine Hcl*), 10 MG GT EVERY 6 HOURS PRN for For High Blood Pressure, (Reported) Discontinued Reason: Pt stopped taking med Magnesium Hydroxide* (Milk Of Magnesia*), 30 ML GT QHS PRN for Constipation, ( Reported) Discontinued Reason: Pt stopped taking med Nitrofurantoin Macrocrystal (Macrodantin*), 50 MG ORAL FOUR TIMES A DAY, ( Reported) Discontinued Reason: Pt stopped taking med Mirkhvsbrqaa-Kdsg-Kniiywem,Iso (Zosyn 3.375 Gm Pre Mix-Bag), 3.375 GM IVPB EVERY 8 HOURS, (Reported) Discontinued Reason: Pt stopped taking med Fauuqxjzkywm-Cmlp-Sgnqvpsq,Iso (Zosyn 3.375 Gm Pre Mix-Bag), 3.375 GM IVPB EVERY 8 HOURS, (Reported) Discontinued Reason: Pt stopped taking med Protein Supplement (Promod), 30 ML GT DAILY, (Reported) Discontinued Reason: Pt stopped taking med Zinc Sulfate (Zinc Sulfate*), 220 MG GT DAILY, (Reported) Discontinued Reason: Pt stopped taking med Zinc Sulfate (Zinc Sulfate*), 220 MG GT DAILY, (Reported) Discontinued Reason: Pt stopped taking med Patient History Healthcare decision maker Cezar Sage (Son) Resuscitation status Full Code Advanced Directive on File Patient History Narrative Pmhx: as above Shx: She is a assisted resident. Does not smoke or drink alcohol. Fhx: non contributory Review of Systems All Other Systems: negative except mentioned in HPI Physical Exam Physical Exam Narrative GENERAL: Trach, vent, altered, lethargic in bed, nonverbal. CARDIOVASCULAR: No murmurs. LUNGS: Poor air exchange. ABDOMEN: Bowel sounds distant. EXTREMITIES: No cyanosis, clubbing, or edema. NEUROLOGIC: The patient is flaccid in bed, not really following directions. Last 24 Hour Vital Signs Date Time Temp Pulse Resp B/P (MAP) Pulse Ox O2 Delivery O2 Flow Rate FiO2 06/05/19 09:58 64 134/70 06/05/19 09:06 64 16 40 06/05/19 08:00 77 06/05/19 08:00 98.3 64 16 134/70 (91) 99 06/05/19 08:00 50 06/05/19 08:00 Mechanical Ventilator 06/05/19 07:32 75 16 50 06/05/19 07:00 70 16 137/64 (88) 99 06/05/19 06:00 73 16 151/70 (97) 99 06/05/19 05:09 75 22 50 06/05/19 05:00 74 16 152/80 (104) 99 06/05/19 04:00 50 06/05/19 04:00 98.6 74 16 152/80 (104) 99 06/05/19 04:00 Mechanical Ventilator 06/05/19 04:00 74 06/05/19 03:26 68 16 50 06/05/19 03:00 74 16 152/80 (104) 99 06/05/19 02:00 65 18 144/66 (92) 99 06/05/19 01:30 66 16 50 06/05/19 01:00 65 16 150/71 (97) 99 06/05/19 00:00 50 06/05/19 00:00 98.9 66 16 141/72 (95) 99 06/05/19 00:00 Mechanical Ventilator 06/05/19 00:00 66 06/04/19 23:02 68 20 50 06/04/19 23:00 67 16 139/80 (99) 99 06/04/19 22:00 65 16 150/84 (106) 99 06/04/19 21:30 71 16 50 06/04/19 21:02 79 169/88 06/04/19 21:00 98.4 71 17 155/80 (105) 99 06/04/19 20:00 Mechanical Ventilator 06/04/19 20:00 98.4 71 17 155/80 (105) 99 06/04/19 20:00 50 06/04/19 19:30 70 15 50 06/04/19 19:00 71 17 158/90 (112) 99 06/04/19 18:00 98.0 71 19 148/99 (115) 100 06/04/19 17:30 73 22 50 06/04/19 17:00 71 20 140/50 (80) 99 06/04/19 16:00 70 06/04/19 16:00 Mechanical Ventilator 06/04/19 16:00 35 06/04/19 16:00 70 19 177/89 (118) 100 06/04/19 15:21 67 24 50 06/04/19 15:00 67 20 142/92 (109) 100 06/04/19 14:14 68 06/04/19 14:06 97.4 70 18 145/89 (107) 100 06/04/19 14:05 Mechanical Ventilator 06/04/19 13:55 98.8 86 18 189/91 100 Mechanical Ventilator 50 06/04/19 13:13 60 18 50 06/04/19 12:54 98.8 86 16 140/86 100 Mechanical Ventilator 50 06/04/19 12:01 98.8 06/04/19 11:17 100.5 Intake and Output 06/04/19 06/05/19 18:59 06:59 Intake Total 3280 ml 350 ml Output Total 950 ml Balance 3280 ml -600 ml Intake Oral 0 ml Free Water 30 ml IV Total 3260 ml Tube Feeding 20 ml 320 ml Output Urine Total 950 ml # Voids 2 # Bowel Movements 3 Laboratory Tests Test 06/04/19 11:27 06/04/19 12:15 06/04/19 19:00 06/05/19 02:55 Arterial Blood pH 7.380 (7.350-7.450) Arterial Blood Partial Pressure CO2 36.5 mmHg (35.0-45.0) Arterial Blood Partial Pressure O2 72.0 mmHg (75.0-100.0) L Arterial Blood HCO3 21.1 mmol/L (22.0-26.0) L Arterial Blood Oxygen Saturation 93.3 % (95-100) L Arterial Blood Base Excess -3.6 (-2-2) L Marlo Test Positive Lactic Acid Level 2.00 mmol/L (0.66-2.22) Troponin I 0.649 ng/mL (0.000-0.056) 0.427 ng/mL (0.000-0.056) White Blood Count 10.8 K/UL (4.8-10.8) Red Blood Count 2.55 M/UL (4.20-5.40) L Hemoglobin 7.6 G/DL (12.0-16.0) L Hematocrit 25.2 % (37.0-47.0) L Mean Corpuscular Volume 99 FL (80-99) Mean Corpuscular Hemoglobin 29.8 PG (27.0-31.0) Mean Corpuscular Hemoglobin Concent 30.2 G/DL (32.0-36.0) L Red Cell Distribution Width 22.0 % (11.6-14.8) H Platelet Count 157 K/UL (150-450) Mean Platelet Volume 7.1 FL (6.5-10.1) Neutrophils (%) (Auto) % (45.0-75.0) Lymphocytes (%) (Auto) % (20.0-45.0) Monocytes (%) (Auto) % (1.0-10.0) Eosinophils (%) (Auto) % (0.0-3.0) Basophils (%) (Auto) % (0.0-2.0) Differential Total Cells Counted 100 Neutrophils % (Manual) 73 % (45-75) Lymphocytes % (Manual) 18 % (20-45) L Monocytes % (Manual) 6 % (1-10) Eosinophils % (Manual) 3 % (0-3) Basophils % (Manual) 0 % (0-2) Band Neutrophils 0 % (0-8) Platelet Estimate Adequate Platelet Morphology Normal Hypochromasia 3+ Anisocytosis 3+ Sodium Level 146 MMOL/L (136-145) H Potassium Level 3.9 MMOL/L (3.5-5.1) Chloride Level 112 MMOL/L (98-107) H Carbon Dioxide Level 26 MMOL/L (21-32) Anion Gap 8 mmol/L (5-15) Blood Urea Nitrogen 55 mg/dL (7-18) H Creatinine 1.2 MG/DL (0.55-1.30) Estimat Glomerular Filtration Rate mL/min (>60) Glucose Level 76 MG/DL (74-106) Calcium Level 8.5 MG/DL (8.5-10.1) Phosphorus Level 4.1 MG/DL (2.5-4.9) Pro-B-Type Natriuretic Peptide > 36537 pg/mL (0-125) H Albumin 1.7 G/DL (3.4-5.0) L Test 8/10/19 09:50 Troponin I 0.282 ng/mL (0.000-0.056) Height (Feet): 5 Height (Inches): 4.00 Weight (Pounds): 198 Medications Current Medications Medications (Trade) Dose Ordered Sig/Kenisha Route PRN Reason Start Time Stop Time Status Last Admin Dose Admin Acetaminophen (Tylenol) 650 mg Q4H PRN ORAL FEVER (temp>100.5 F) 06/04/19 14:45 07/04/19 14:44 Albuterol/ Ipratropium (Albuterol/ Ipratropium) 3 ml Q4H PRN HHN Shortness of Breath 06/04/19 14:45 06/09/19 14:44 Clopidogrel Bisulfate (Plavix) 75 mg DAILY ORAL 06/05/19 09:00 07/05/19 08:59 06/05/19 09:57 Dextrose (Dextrose 50%) 25 ml Q30M PRN IV Hypoglycemia 06/04/19 15:30 07/04/19 15:21 Dextrose (Dextrose 50%) 50 ml Q30M PRN IV hypoglycemia 06/04/19 15:30 07/04/19 15:29 Furosemide (Lasix) 40 mg EVERY 12 HOURS IV 06/04/19 21:00 07/04/19 20:59 06/05/19 09:57 Heparin Sodium (Porcine) (Heparin 5000 units/ml) 5,000 units EVERY 12 HOURS SUBQ 06/04/19 21:00 07/04/19 20:59 06/05/19 09:59 Lorazepam (Ativan 2mg/ml 1ml) 2 mg Q2H PRN IV For Anxiety 06/04/19 14:45 06/11/19 14:44 Metoprolol Tartrate (Lopressor) 25 mg EVERY 12 HOURS ORAL 06/04/19 21:00 07/04/19 20:59 06/05/19 09:58 Morphine Sulfate (Morphine Sulfate) 4 mg Q4H PRN IVP Severe Pain (Pain Scale 7-10) 06/04/19 14:45 06/11/19 14:44 Ondansetron HCl (Zofran) 4 mg Q6H PRN IVP Nausea & Vomiting 06/04/19 14:45 07/04/19 14:44 Pantoprazole (Protonix) 40 mg DAILY IV 06/05/19 09:00 07/05/19 08:59 06/05/19 09:58 Piperacillin Sod/ Tazobactam Sod 3.375 gm/Sodium Chloride 110 ml @ 27.5 mls/hr EVERY 8 HOURS IVPB 06/04/19 20:00 06/09/19 19:59 06/05/19 06:14 Polyethylene Glycol (Miralax) 17 gm DAILYPRN PRN ORAL Constipation 06/04/19 14:45 07/04/19 14:44 Vancomycin HCl (Vanco rx to dose) 1 ea DAILY PRN MISC PER RX PROTOCOL 06/04/19 15:30 07/04/19 15:29 Vancomycin HCl 1 gm/Dextrose 275 ml @ 183.3 mls/ hr Q24H IVPB 06/05/19 13:00 06/10/19 12:59 Assessment/Plan Assessment/Plan: Abx: IV Vancomycin 06/04- Zosyn 06/04- Levaquin x1 06/04 Assessment: Sepsis -likely 2ry to PNA- r/o bacteremia -06/04 CXR: Bilateral mixed interstitial and alveolar airspace opacities, slightly increased compared to the prior exam of 05/20/2019. Findings may be related to pulmonary edema and/or multifocal pneumonia. Clinical correlation/ follow-up recommended. Tracheostomy and gastrostomy tubes noted. -u/a no pyuria Low grade fever Leukocytosis, SP Hx of PNA -05/18 sp cx S. maltophila (S Levaquin, bactrim), MDR P stuartii HTN CVA with hemiplegia and is now not verbal CKD CAD Dm2 chronic resp failure s/p trach/vent dependant dysphagia s/p PEG PNA pHTN Aflutter nonverbal SNF resident Plan: -Continue empiric IV Vancomycin #2 and switch Zosyn #2 to Meropenem -add empiric Levaquin given prior S. maltophila in sputum cx -05/20 SP Zosyn #3 -05/18 SP IV Vancomycin #3 -04/28/19 SP Cefepime #6 -04/22 SP Meropenem #5 -04/20 SP Vancomycin #8 - 04/18/19 S/P Cefepime #6 -f/u cx -Monitor CBC/CMP, temperatures -sp cx -trach/peg/ICU care -aspiration precautions Thank you for this consultation. Will continue to follow along with you. Discussed with HORTENCIA. Cora Baer M.D. Jun 05, 2019 11:17
--- NOTE | 2019-06-05 12:15 | NUR ---
NURSE NOTES: Dr Baer at bedside,with orders noted.
[2019-06-05] MEDS: Meropenem 1 GM in NS 55 ML IVPB SCH (12:28)
[2019-06-05] MEDS ORDERED: Levofloxacin 750mg tab GT SCH (13:00)
[2019-06-05] MEDS ORDERED: Vancomycin 1 GM in D5W 275 ML IVPB SCH (13:00)
--- NOTE | 2019-06-05 13:32 | NUR ---
NURSE NOTES: Pt's son Cezar at bedside,updated re pt's status,informed re pt's low H/H and the need for signed consent,verbalized understanding.
--- NOTE | 2019-06-05 14:55 | NUR ---
NURSE NOTES: Pt's H/H low 7.6/25.2,transfused 1 unit of PRBC,pt afebrile,v/S stable,no signs of SOB ,chest pain or chills presented,bld transfusion tolerated,son Cezar at bedside.
--- NOTE | 2019-06-05 16:23 | Cardiac Electrophysiology PN ---
Assessment/Plan Assessment/Plan 1. CHF with BNP of 35,000. On Lasix 40 mg IV b.i.d. Echo EF of 55% to 60%. 2. Hypertension. On Lopressor 25 bid and 40 mg of Lasix IV b.i.d. 3. History of atrial flutter and this self-terminated. 4. Troponin leak and CAD with inferolateral T-wave inversion, levels flat and no CP. Could be due to severe anemia Hb 7.0. On Metoprolol 25 bid and Plavix 5. Sepsis with elevated white count. On IV antibiotics. 6. Ventilator-dependent respiratory failure, status post tracheostomy on April. 7. Dysphagia, status post PEG tube on April 22, 2019. 8. History of CVA and hemiplegia. 9. Nonverbal status. 10. History of anemia status post blood transfusion.Getting another PRBC now 11. Status post renal failure. BUN and creatinine is 15 and 1.3. 12. Lactic acidosis, likely due to sepsis. Subjective Subjective In ICU getting transfusion. Son and RN at bedside.In SR off pressors Objective Last 24 Hour Vital Signs Date Time Temp Pulse Resp B/P (MAP) Pulse Ox O2 Delivery O2 Flow Rate FiO2 06/05/19 16:06 98.5 70 12 144/71 (95) 100 06/05/19 16:02 Mechanical Ventilator 06/05/19 16:01 40 06/05/19 15:13 70 17 40 06/05/19 15:06 98.5 69 22 150/89 (109) 100 06/05/19 14:00 71 18 143/71 (95) 100 06/05/19 13:00 137/62 (87) 06/05/19 12:42 68 16 40 06/05/19 12:00 40 06/05/19 12:00 64 06/05/19 12:00 98.0 67 16 126/64 (84) 99 06/05/19 12:00 Mechanical Ventilator 06/05/19 11:52 68 16 40 06/05/19 11:00 68 16 137/64 (88) 99 06/05/19 10:00 80 19 150/75 (100) 99 06/05/19 09:58 64 134/70 06/05/19 09:06 64 16 40 06/05/19 09:00 64 16 134/70 (91) 99 06/05/19 08:00 77 06/05/19 08:00 98.3 64 16 134/70 (91) 99 06/05/19 08:00 50 06/05/19 08:00 Mechanical Ventilator 06/05/19 07:32 75 16 50 06/05/19 07:00 70 16 137/64 (88) 99 06/05/19 06:00 73 16 151/70 (97) 99 06/05/19 05:09 75 22 50 06/05/19 05:00 74 16 152/80 (104) 99 06/05/19 04:00 50 06/05/19 04:00 98.6 74 16 152/80 (104) 99 06/05/19 04:00 Mechanical Ventilator 06/05/19 04:00 74 06/05/19 03:26 68 16 50 06/05/19 03:00 74 16 152/80 (104) 99 06/05/19 02:00 65 18 144/66 (92) 99 06/05/19 01:30 66 16 50 06/05/19 01:00 65 16 150/71 (97) 99 06/05/19 00:00 50 06/05/19 00:00 98.9 66 16 141/72 (95) 99 06/05/19 00:00 Mechanical Ventilator 06/05/19 00:00 66 06/04/19 23:02 68 20 50 06/04/19 23:00 67 16 139/80 (99) 99 06/04/19 22:00 65 16 150/84 (106) 99 06/04/19 21:30 71 16 50 06/04/19 21:02 79 169/88 06/04/19 21:00 98.4 71 17 155/80 (105) 99 06/04/19 20:00 Mechanical Ventilator 06/04/19 20:00 98.4 71 17 155/80 (105) 99 06/04/19 20:00 50 06/04/19 19:30 70 15 50 06/04/19 19:00 71 17 158/90 (112) 99 06/04/19 18:00 98.0 71 19 148/99 (115) 100 06/04/19 17:30 73 22 50 06/04/19 17:00 71 20 140/50 (80) 99 Intake and Output 06/04/19 06/05/19 18:59 06:59 Intake Total 3280 ml 350 ml Output Total 950 ml Balance 3280 ml -600 ml Intake Oral 0 ml Free Water 30 ml IV Total 3260 ml Tube Feeding 20 ml 320 ml Output Urine Total 950 ml # Voids 2 # Bowel Movements 3 Laboratory Tests Test 06/04/19 19:00 06/05/19 02:55 06/05/19 09:50 Troponin I 0.649 ng/mL (0.000-0.056) 0.427 ng/mL (0.000-0.056) 0.282 ng/mL (0.000-0.056) White Blood Count 10.8 K/UL (4.8-10.8) Red Blood Count 2.55 M/UL (4.20-5.40) L Hemoglobin 7.6 G/DL (12.0-16.0) L Hematocrit 25.2 % (37.0-47.0) L Mean Corpuscular Volume 99 FL (80-99) Mean Corpuscular Hemoglobin 29.8 PG (27.0-31.0) Mean Corpuscular Hemoglobin Concent 30.2 G/DL (32.0-36.0) L Red Cell Distribution Width 22.0 % (11.6-14.8) H Platelet Count 157 K/UL (150-450) Mean Platelet Volume 7.1 FL (6.5-10.1) Neutrophils (%) (Auto) % (45.0-75.0) Lymphocytes (%) (Auto) % (20.0-45.0) Monocytes (%) (Auto) % (1.0-10.0) Eosinophils (%) (Auto) % (0.0-3.0) Basophils (%) (Auto) % (0.0-2.0) Differential Total Cells Counted 100 Neutrophils % (Manual) 73 % (45-75) Lymphocytes % (Manual) 18 % (20-45) L Monocytes % (Manual) 6 % (1-10) Eosinophils % (Manual) 3 % (0-3) Basophils % (Manual) 0 % (0-2) Band Neutrophils 0 % (0-8) Platelet Estimate Adequate Platelet Morphology Normal Hypochromasia 3+ Anisocytosis 3+ Sodium Level 146 MMOL/L (136-145) H Potassium Level 3.9 MMOL/L (3.5-5.1) Chloride Level 112 MMOL/L (98-107) H Carbon Dioxide Level 26 MMOL/L (21-32) Anion Gap 8 mmol/L (5-15) Blood Urea Nitrogen 55 mg/dL (7-18) H Creatinine 1.2 MG/DL (0.55-1.30) Estimat Glomerular Filtration Rate mL/min (>60) Glucose Level 76 MG/DL (74-106) Calcium Level 8.5 MG/DL (8.5-10.1) Phosphorus Level 4.1 MG/DL (2.5-4.9) Pro-B-Type Natriuretic Peptide > 49608 pg/mL (0-125) H Albumin 1.7 G/DL (3.4-5.0) L Microbiology Date/Time Source Procedure Growth Status 06/04/19 10:00 Rectum Received Objective HEAD AND NECK: No JVD. LUNGS: Decreased breath sounds. She is status post tracheostomy. CARDIOVASCULAR: Shows regular S1 and S2 with no gallop. ABDOMEN: Status post G-tube. EXTREMITIES: Have anasarca. Claude Pena MD Jun 05, 2019 16:23
--- NOTE | 2019-06-05 16:30 | NUR ---
NURSE NOTES: NURSE NOTES: Dr Springer at bedside,aware of pt's troponin level no orders given.
--- NOTE | 2019-06-05 17:00 | NUR ---
NURSE NOTES: Pt with large diarrhea like tarry stools,kept dry and clean,pulled up turned and repositioned
--- NOTE | 2019-06-05 18:00 | NUR ---
NURSE NOTES: Ongoing bld transfusion completed,V/S stable,no blood transfusion reaction presented,family member son at bedside.
--- NOTE | 2019-06-05 19:21 | NUR ---
HAND-OFF: Report given to Vargas Peters RN.
--- NOTE | 2019-06-05 19:30 | NUR ---
NURSE NOTES: Recvd.Quiet in bed Awake does'nt Follows command.Good eye contact.TRACHE-VENT.See settings.Lungs few scatt.Rh.diminished BS at bases.Suctioned Tk Beige sec.NS Lavaged.Sat.100%.S/P Tx.a unit of PRBC.cbc in am.Observed for S/Sx of any alvaro bleeding.GT-Feeding in progress.See I/O.
--- NOTE | 2019-06-05 22:10 | NUR ---
NURSE NOTES: HS Care rendered.Pos.chg.Kept clean and dry.Due meds admin.No Distress.
[2019-06-06] VITALS (17 sets, daily range): BP systolic 144–172; BP diastolic 58–89
[2019-06-06] MEDS: Meropenem 1 GM in NS 55 ML IVPB SCH ×3 (00:01→23:33)
--- NOTE | 2019-06-06 00:10 | NUR ---
NURSE NOTES: Pos.chg.Suctioned.See V/S.Neuro status same.Cont.to diuresis well fr.Lasix recvd.GT-Feeding Lacy.Water flushed.
--- NOTE | 2019-06-06 02:10 | NUR ---
NURSE NOTES: Suctioned,NS Lavaged.Oral care rendered.Sat-100%.Pos.chg.Cont.Plan of care.
--- NOTE | 2019-06-06 04:20 | NUR ---
NURSE NOTES: Blood drawn for cbc/cmp pt,ptt etc.spec.to Lab.Ajit Murdock chg.Suctioned.P.Ox-100%.Lacy.Vent.settings.Lacy.GT-Feeding.See I/O.Cont.Plan of care.
--- NOTE | 2019-06-06 06:32 | NUR ---
RESPIRATORY NOTE: Received pt on current settings. No respiratory distress noted. No SOB. Vent plugged into red outlet. Alarms set and audible. Will continue to monitor.
--- NOTE | 2019-06-06 07:15 | NUR ---
NURSE NOTES: Received pt from HORTENCIA Yun. Opens eyes and has good eye contact. Pupils reactive and equal. FLACC 0/10; flat expression. Patient has a trach to vent; Shiley 8.0, AC 16/500/40%/+5. Rhonchi heard bilateral breath sounds. Minimal secretions noted from sxn. PEG running Jevity 1.2@30m/hr, abdomen is round but soft and non-distended. HOB 35 degrees. Incontinent with purwick connected to sxn, draining well. Left upper chest IV 22G on TKO, patent and asymptomatic. 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 Afebrile. Edema noted on all extremities +1 BLE, +2 BUE. Bed locked, alarmed and in lowest position. Will continue plan of care.
--- NOTE | 2019-06-06 07:18 | NUR ---
HAND-OFF: Report given to HORTENCIA MEZA.
[2019-06-06 07:35] LABS: BASOPHILS % (AUTO) 1.1 % (0.0-2.0); EOSINOPHILS % (AUTO) 4.1 % (0.0-3.0); HEMATOCRIT 27.3 % (37.0-47.0); HEMOGLOBIN 8.3 G/DL (12.0-16.0); MEAN CORPUSCULAR VOLUME 97 FL (80-99); MONOCYTES % (AUTO) 5.2 % (1.0-10.0); NEUTROPHILS % (AUTO) 60.6 % (45.0-75.0); PLATELET COUNT 158 K/UL (150-450); RED BLOOD COUNT 2.81 M/UL (4.20-5.40); RED CELL DISTRIBUTION WIDTH 22.7 % (11.6-14.8); WHITE BLOOD COUNT 8.3 K/UL (4.8-10.8)
[2019-06-06 08:00] LABS: INR 1.2 (0.9-1.1)
[2019-06-06 08:19] LABS: ALANINE AMINOTRANSFERASE 12 U/L (12-78); ALBUMIN 1.8 G/DL (3.4-5.0); ALBUMIN/GLOBULIN RATIO 0.4 (1.0-2.7); ALKALINE PHOSPHATASE 94 U/L (46-116); ANION GAP 8 mmol/L (5-15); ASPARTATE AMINO TRANSFERASE 22 U/L (15-37); BILIRUBIN,TOTAL 0.5 MG/DL (0.2-1.0); BLOOD UREA NITROGEN 53 mg/dL (7-18); CALCIUM 8.6 MG/DL (8.5-10.1); CARBON DIOXIDE 26 MMOL/L (21-32); CHLORIDE 114 MMOL/L (98-107); CREATININE 1.2 MG/DL (0.55-1.30); POTASSIUM 3.6 MMOL/L (3.5-5.1); SODIUM 148 MMOL/L (136-145)
[2019-06-06] MEDS: Pantoprazole Inj IV SCH (08:32)
[2019-06-06] MEDS: Heparin 5000 units/ml inj SUBQ SCH ×2 (08:33→20:52)
[2019-06-06] MEDS: Metoprolol 25mg tab ORAL SCH ×2 (08:33→20:52)
--- NOTE | 2019-06-06 08:49 | Pulmonolgy Critical Care Note ---
Critical Care - Asmt/Plan Problems: (1) Acute and chronic respiratory failure (2) Nosocomial pneumonia (3) Acute metabolic encephalopathy (4) Anemia in chronic kidney disease (CKD) (5) Renal failure (ARF), acute on chronic (6) NSTEMI (non-ST elevated myocardial infarction) (7) G tube feedings (8) History of CVA (cerebrovascular accident) (9) CAD (coronary artery disease) (10) Right hemiplegia (11) Diabetes mellitus (12) Hypertensive heart disease Respiratory: monitor respiratory rate, adjust FIO2, CXR Cardiac: continue pressors, continue to monitor HR/BP Renal: F/U I&O, check electrolytes Infectious Disease: check cultures Gastrointestinal: continue feedings/current rate Endocrine: monitor blood sugar Hematologic: monitor H/H, transfuse if hgb<8.5 Neurologic: PRN Morphine, keep patient comfortable Prophylaxis: Heparin Notes Reviewed: forestry instructor, renal Discussed with: nurses, consultants, caseworkerbartender manager - Objective Last 24 Hour Vital Signs Date Time Temp Pulse Resp B/P (MAP) Pulse Ox O2 Delivery O2 Flow Rate FiO2 06/06/19 08:33 73 157/69 06/06/19 08:00 Mechanical Ventilator 06/06/19 08:00 40 06/06/19 07:00 76 152/82 (105) 100 06/06/19 06:32 82 17 40 06/06/19 06:00 80 147/71 (96) 100 06/06/19 05:23 68 16 40 06/06/19 05:00 98.7 74 162/77 (105) 100 06/06/19 04:00 Mechanical Ventilator 06/06/19 04:00 40 06/06/19 04:00 65 06/06/19 04:00 78 162/74 (103) 100 06/06/19 03:07 74 17 40 06/06/19 03:00 77 160/72 (101) 100 06/06/19 02:00 74 148/69 (95) 100 06/06/19 01:30 72 16 40 06/06/19 01:00 72 153/79 (103) 100 06/06/19 00:00 98.6 69 154/83 (106) 100 06/06/19 00:00 Mechanical Ventilator 06/06/19 00:00 40 06/06/19 00:00 69 06/05/19 23:30 70 16 40 06/05/19 23:00 65 153/58 (89) 100 06/05/19 22:00 66 145/75 (98) 100 06/05/19 21:00 72 144/65 (91) 100 06/05/19 20:51 77 155/69 06/05/19 20:48 71 16 40 06/05/19 20:00 Mechanical Ventilator 06/05/19 20:00 98.3 72 17 155/69 (97) 100 06/05/19 20:00 40 06/05/19 20:00 72 06/05/19 20:00 66 06/05/19 19:30 73 17 40 06/05/19 19:00 75 16 151/73 (99) 100 06/05/19 18:00 16 134/78 (96) 100 06/05/19 17:31 72 16 40 06/05/19 17:00 72 16 144/80 (101) 100 06/05/19 16:06 98.5 70 12 144/71 (95) 100 06/05/19 16:02 Mechanical Ventilator 06/05/19 16:01 40 06/05/19 16:00 68 06/05/19 15:13 70 17 40 06/05/19 15:06 98.5 69 22 150/89 (109) 100 06/05/19 14:00 71 18 143/71 (95) 100 06/05/19 13:00 137/62 (87) 06/05/19 12:42 68 16 40 06/05/19 12:00 40 06/05/19 12:00 64 06/05/19 12:00 98.0 67 16 126/64 (84) 99 06/05/19 12:00 Mechanical Ventilator 06/05/19 11:52 68 16 40 06/05/19 11:00 68 16 137/64 (88) 99 06/05/19 10:00 80 19 150/75 (100) 99 06/05/19 09:58 64 134/70 06/05/19 09:06 64 16 40 06/05/19 09:00 64 16 134/70 (91) 99 Status: awake Condition: critical HEENT: atraumatic Neck: full ROM Lungs: clear Heart: HR/BP stable, regular Abdomen: active bowel sounds, feeding tube Extremities: no C/C/E Decubiti: stage Micro: Microbiology Date/Time Source Procedure Growth Status 06/04/19 10:00 Blood Blood Culture - Preliminary NO GROWTH AFTER 24 HOURS Resulted 06/04/19 09:50 Blood Blood Culture - Preliminary NO GROWTH AFTER 24 HOURS Resulted 06/04/19 10:00 Rectum VRE Culture - Final Enterococcus Faecium - Vre Complete 06/04/19 10:00 Rectum Received Critical Care - Subjective ROS Limited/Unobtainable: Yes Condition: critical EKG Rhythm: Sinus Rhythm FI02: 40 Vent Support Breath Rate: 16 Vent Support Mode: AC Vent Tidal Volume: 500 Sputum Amount: Small PEEP: 5.0 PIP: 32 Tube Feeding Amount: 30 I&O: Intake and Output 06/05/19 06/06/19 19:00 07:00 Intake Total 620 ml 565 ml Output Total 361 ml 860 ml Balance 259 ml -295 ml Free Water 200 ml 150 ml IV Total 55 ml Tube Feeding 360 ml 360 ml Other 60 ml Output Urine Total 360 ml 860 ml Stool Total 1 ml # Voids 2 3 # Bowel Movements 1 Labs: Laboratory Tests Test 06/05/19 09:50 06/06/19 07:00 Troponin I 0.282 ng/mL (0.000-0.056) White Blood Count 8.3 K/UL (4.8-10.8) Red Blood Count 2.81 M/UL (4.20-5.40) L Hemoglobin 8.3 G/DL (12.0-16.0) L Hematocrit 27.3 % (37.0-47.0) L Mean Corpuscular Volume 97 FL (80-99) Mean Corpuscular Hemoglobin 29.5 PG (27.0-31.0) Mean Corpuscular Hemoglobin Concent 30.4 G/DL (32.0-36.0) L Red Cell Distribution Width 22.7 % (11.6-14.8) H Platelet Count 158 K/UL (150-450) Mean Platelet Volume 7.5 FL (6.5-10.1) Neutrophils (%) (Auto) 60.6 % (45.0-75.0) Lymphocytes (%) (Auto) 29.0 % (20.0-45.0) Monocytes (%) (Auto) 5.2 % (1.0-10.0) Eosinophils (%) (Auto) 4.1 % (0.0-3.0) H Basophils (%) (Auto) 1.1 % (0.0-2.0) Prothrombin Time 12.3 SEC (9.30-11.50) H Prothromb Time International Ratio 1.2 (0.9-1.1) H Activated Partial Thromboplast Time 32 SEC (23-33) Sodium Level 148 MMOL/L (136-145) H Potassium Level 3.6 MMOL/L (3.5-5.1) Chloride Level 114 MMOL/L (98-107) H Carbon Dioxide Level 26 MMOL/L (21-32) Anion Gap 8 mmol/L (5-15) Blood Urea Nitrogen 53 mg/dL (7-18) H Creatinine 1.2 MG/DL (0.55-1.30) Estimat Glomerular Filtration Rate mL/min (>60) Glucose Level 102 MG/DL (74-106) Calcium Level 8.6 MG/DL (8.5-10.1) Phosphorus Level 4.0 MG/DL (2.5-4.9) Magnesium Level 1.9 MG/DL (1.8-2.4) Total Bilirubin 0.5 MG/DL (0.2-1.0) Aspartate Amino Transf (AST/SGOT) 22 U/L (15-37) Alanine Aminotransferase (ALT/SGPT) 12 U/L (12-78) Alkaline Phosphatase 94 U/L (46-116) Pro-B-Type Natriuretic Peptide Pending Total Protein 6.8 G/DL (6.4-8.2) Albumin 1.8 G/DL (3.4-5.0) L Globulin 5.0 g/dL Albumin/Globulin Ratio 0.4 (1.0-2.7) L Tony Springer MD Jun 06, 2019 08:49
--- NOTE | 2019-06-06 09:01 | General Progress Note ---
Assessment/Plan Problem List: (1) Acute and chronic respiratory failure ICD Codes: J96.20 - Acute and chronic respiratory failure, unspecified whether with hypoxia or hypercapnia SNOMED: 76559441 (2) History of CVA (cerebrovascular accident) ICD Codes: Z86.73 - Personal history of transient ischemic attack (TIA), and cerebral infarction without residual deficits SNOMED: 429784024 (3) CAD (coronary artery disease) ICD Codes: I25.10 - Atherosclerotic heart disease of [place] coronary artery without angina pectoris SNOMED: 09903876 (4) Right hemiplegia ICD Codes: G81.91 - Hemiplegia, unspecified affecting right dominant side SNOMED: 659415364 (5) Diabetes mellitus ICD Codes: E11.9 - Type 2 diabetes mellitus without complications SNOMED: 71745527 (6) Hypertensive heart disease ICD Codes: I11.9 - Hypertensive heart disease without heart failure SNOMED: 23396564 (7) 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2 - Chronic kidney disease, stage 2 (mild); D63.1 - Anemia in chronic kidney disease (11) Severe sepsis ICD Codes: A41.9 - Sepsis, unspecified organism; R65.20 - Severe sepsis without septic shock SNOMED: 66803530 Status: unchanged Assessment/Plan: vent abx bp bs control cbc bmp am Subjective Constitutional: Reports: weakness Allergies: Coded Allergies: No Known Allergies (Unverified , 04/12/19) All Systems: reviewed and negative except above Subjective trach vent altered in icu Objective Last 24 Hour Vital Signs Date Time Temp Pulse Resp B/P (MAP) Pulse Ox O2 Delivery O2 Flow Rate FiO2 06/06/19 08:48 64 16 40 06/06/19 08:33 73 157/69 06/06/19 08:00 Mechanical Ventilator 06/06/19 08:00 66 06/06/19 08:00 98.2 64 16 157/69 (98) 100 06/06/19 08:00 40 06/06/19 07:00 76 152/82 (105) 100 06/06/19 06:32 82 17 40 06/06/19 06:00 80 147/71 (96) 100 06/06/19 05:23 68 16 40 06/06/19 05:00 98.7 74 162/77 (105) 100 06/06/19 04:00 Mechanical Ventilator 06/06/19 04:00 40 06/06/19 04:00 65 06/06/19 04:00 78 162/74 (103) 100 06/06/19 03:07 74 17 40 06/06/19 03:00 77 160/72 (101) 100 06/06/19 02:00 74 148/69 (95) 100 06/06/19 01:30 72 16 40 06/06/19 01:00 72 153/79 (103) 100 06/06/19 00:00 98.6 69 154/83 (106) 100 06/06/19 00:00 Mechanical Ventilator 06/06/19 00:00 40 06/06/19 00:00 69 06/05/19 23:30 70 16 40 06/05/19 23:00 65 153/58 (89) 100 06/05/19 22:00 66 145/75 (98) 100 06/05/19 21:00 72 144/65 (91) 100 06/05/19 20:51 77 155/69 06/05/19 20:48 71 16 40 06/05/19 20:00 Mechanical Ventilator 06/05/19 20:00 98.3 72 17 155/69 (97) 100 06/05/19 20:00 40 06/05/19 20:00 72 06/05/19 20:00 66 06/05/19 19:30 73 17 40 06/05/19 19:00 75 16 151/73 (99) 100 06/05/19 18:00 16 134/78 (96) 100 06/05/19 17:31 72 16 40 06/05/19 17:00 72 16 144/80 (101) 100 06/05/19 16:06 98.5 70 12 144/71 (95) 100 06/05/19 16:02 Mechanical Ventilator 06/05/19 16:01 40 06/05/19 16:00 68 06/05/19 15:13 70 17 40 06/05/19 15:06 98.5 69 22 150/89 (109) 100 06/05/19 14:00 71 18 143/71 (95) 100 06/05/19 13:00 137/62 (87) 06/05/19 12:42 68 16 40 06/05/19 12:00 40 06/05/19 12:00 64 06/05/19 12:00 98.0 67 16 126/64 (84) 99 06/05/19 12:00 Mechanical Ventilator 06/05/19 11:52 68 16 40 06/05/19 11:00 68 16 137/64 (88) 99 06/05/19 10:00 80 19 150/75 (100) 99 06/05/19 09:58 64 134/70 06/05/19 09:06 64 16 40 Intake and Output 06/05/19 06/06/19 19:00 07:00 Intake Total 620 ml 565 ml Output Total 361 ml 860 ml Balance 259 ml -295 ml Free Water 200 ml 150 ml IV Total 55 ml Tube Feeding 360 ml 360 ml Other 60 ml Output Urine Total 360 ml 860 ml Stool Total 1 ml # Voids 2 3 # Bowel Movements 1 Laboratory Tests 06/05/19 09:50: Troponin I 0.282H 06/06/19 07:00: White Blood Count 8.3, Red Blood Count 2.81L, Hemoglobin 8.3L, Hematocrit 27.3L , Mean Corpuscular Volume 97, Mean Corpuscular Hemoglobin 29.5, Mean Corpuscular Hemoglobin Concent 30.4L, Red Cell Distribution Width 22.7H, Platelet Count 158, Mean Platelet Volume 7.5, Neutrophils (%) (Auto) 60.6, Lymphocytes (%) (Auto) 29.0, Monocytes (%) (Auto) 5.2, Eosinophils (%) (Auto) 4.1H, Basophils (%) (Auto) 1.1, Prothrombin Time 12.3H, Prothromb Time International Ratio 1.2H, Activated Partial Thromboplast Time 32, Sodium Level 148H, Potassium Level 3.6, Chloride Level 114H, Carbon Dioxide Level 26, Anion Gap 8, Blood Urea Nitrogen 53H, Creatinine 1.2, Estimat Glomerular Filtration Rate , Glucose Level 102, Calcium Level 8.6, Phosphorus Level 4.0, Magnesium Level 1.9, Total Bilirubin 0.5, Aspartate Amino Transf (AST/SGOT) 22, Alanine Aminotransferase (ALT/SGPT) 12, Alkaline Phosphatase 94, Pro-B-Type Natriuretic Peptide > 49412U, Total Protein 6.8, Albumin 1.8L, Globulin 5.0, Albumin/ Globulin Ratio 0.4L Height (Feet): 5 Height (Inches): 4.00 Weight (Pounds): 197 General Appearance: lethargic EENT: normal ENT inspection Neck: normal alignment Cardiovascular: normal peripheral pulses, normal rate, regular rhythm Respiratory/Chest: chest wall non-tender, lungs clear, normal breath sounds Abdomen: normal bowel sounds, non tender, soft Extremities: normal inspection Edema: no edema noted Arm (L), no edema noted Arm (R), no edema noted Leg (L), no edema noted Leg (R), no edema noted Pedal (L), no edema noted Pedal (R), no edema noted Generalized Neurologic: motor weakness Skin: normal pigmentation, warm/dry Jama Keating DO Jun 06, 2019 09:01
--- NOTE | 2019-06-06 09:20 | NUR ---
NURSE NOTES: Turned and repositioned. Kept dry and clean. held Heparin subq due to tarry black stool. tolerating gtf well. All extremities elevated on pillow support.
--- NOTE | 2019-06-06 09:57 | Diagnostic Imaging Report ---
EXAM: XR Chest, 1 View CLINICAL HISTORY: DYSPNEA TECHNIQUE: Frontal view of the chest. COMPARISON: Chest x-rays dated 06/06/19 FINDINGS: Lungs: No significant change in the diffuse patchy opacities in bilateral lungs, which may represent pulmonary edema versus multifocal pneumonia. Pleural space: Unremarkable. The costophrenic angles are sharp. No visible pneumothorax. Heart: Unremarkable. No cardiomegaly. Mediastinum: Unremarkable. Bones/joints: Unremarkable. Tubes, lines and devices: Telemetry leads overlie the thorax. Stable positioning of the tracheostomy tube. IMPRESSION: No significant change in the diffuse patchy opacities in bilateral lungs, which may represent pulmonary edema versus multifocal pneumonia.
--- NOTE | 2019-06-06 11:06 | NUR ---
NURSE NOTES: Notified Dr. Baer of blood culture results = gram variable rods x1 bottle. no new orders given. Turned and repositioned. Oral care given.
--- NOTE | 2019-06-06 12:14 | NUR ---
NURSE NOTES: Received orders for x2 blood culture, peripheral draw per Dr. Baer. Read back given and verified.
--- NOTE | 2019-06-06 13:00 | NUR ---
NURSE NOTES: Received patient from ICU to room 243-2 via hospital bed accompanied by 2 RNs and RT. Received bedside report from HORTENCIA Mock. Patient awake, nonverbal. Trach-vent with settings AC 16, TV 500, FiO2 40% and PEEP 5, no apparent respiratory distress noted at this time. Left upper chest peripheral IV 22g intact and patent. GT intact and patent with infusing feeding at prescribed rate, tolerating well, HOB maintained elevated. No open wounds noted. No s/s of pain/discomfort at this time. Safety precautions in place. Bed locked, alarmed, and in lowest position, side rails up and call light within reach. Will continue with plan of care.
--- NOTE | 2019-06-06 13:08 | NUR ---
TRANSFER TO FLOOR: Patient transferred to [facility], per Dr. Springer. Report given to HORTENCIA Sanchez. Medications given to receiving RN. Patient has no belongings. Son, Cezar at bedside and informed of transfer.VSS. No change of condition. No signs of distress.
--- NOTE | 2019-06-06 13:25 | General Progress Note ---
Assessment/Plan Status: unchanged Assessment/Plan: GI Consult Dictated Dark stool noted, but H&H higher Will check OB to confirm GI bleed Thank you Yenny Ye MD Subjective Allergies: Coded Allergies: No Known Allergies (Unverified , 04/12/19) Objective Last 24 Hour Vital Signs Date Time Temp Pulse Resp B/P (MAP) Pulse Ox O2 Delivery O2 Flow Rate FiO2 06/06/19 13:16 72 16 151/80 (103) 98 06/06/19 13:00 72 16 152/82 (105) 97 06/06/19 12:40 83 17 40 06/06/19 12:00 98.6 75 16 152/72 (98) 98 06/06/19 12:00 40 06/06/19 12:00 75 06/06/19 12:00 Mechanical Ventilator 06/06/19 11:22 69 16 40 06/06/19 11:00 67 16 149/89 (109) 97 06/06/19 10:00 62 147/68 (94) 100 06/06/19 09:00 63 144/58 (86) 100 06/06/19 08:48 64 16 40 06/06/19 08:33 73 157/69 06/06/19 08:00 Mechanical Ventilator 06/06/19 08:00 66 06/06/19 08:00 98.2 64 16 157/69 (98) 100 06/06/19 08:00 40 06/06/19 07:00 76 152/82 (105) 100 06/06/19 06:32 82 17 40 06/06/19 06:00 80 147/71 (96) 100 06/06/19 05:23 68 16 40 06/06/19 05:00 98.7 74 162/77 (105) 100 06/06/19 04:00 Mechanical Ventilator 06/06/19 04:00 40 06/06/19 04:00 65 06/06/19 04:00 78 162/74 (103) 100 06/06/19 03:07 74 17 40 06/06/19 03:00 77 160/72 (101) 100 06/06/19 02:00 74 148/69 (95) 100 06/06/19 01:30 72 16 40 06/06/19 01:00 72 153/79 (103) 100 06/06/19 00:00 98.6 69 154/83 (106) 100 06/06/19 00:00 Mechanical Ventilator 06/06/19 00:00 40 06/06/19 00:00 69 06/05/19 23:30 70 16 40 06/05/19 23:00 65 153/58 (89) 100 06/05/19 22:00 66 145/75 (98) 100 06/05/19 21:00 72 144/65 (91) 100 06/05/19 20:51 77 155/69 06/05/19 20:48 71 16 40 06/05/19 20:00 Mechanical Ventilator 06/05/19 20:00 98.3 72 17 155/69 (97) 100 06/05/19 20:00 40 06/05/19 20:00 72 06/05/19 20:00 66 06/05/19 19:30 73 17 40 06/05/19 19:00 75 16 151/73 (99) 100 06/05/19 18:00 16 134/78 (96) 100 06/05/19 17:31 72 16 40 06/05/19 17:00 72 16 144/80 (101) 100 06/05/19 16:06 98.5 70 12 144/71 (95) 100 06/05/19 16:02 Mechanical Ventilator 06/05/19 16:01 40 06/05/19 16:00 68 06/05/19 15:13 70 17 40 06/05/19 15:06 98.5 69 22 150/89 (109) 100 06/05/19 14:00 71 18 143/71 (95) 100 Intake and Output 06/05/19 06/06/19 18:59 06:59 Intake Total 620 ml 565 ml Output Total 361 ml 860 ml Balance 259 ml -295 ml Free Water 200 ml 150 ml IV Total 55 ml Tube Feeding 360 ml 360 ml Other 60 ml Output Urine Total 360 ml 860 ml Stool Total 1 ml # Voids 2 3 # Bowel Movements 1 Laboratory Tests 06/06/19 07:00: White Blood Count 8.3, Red Blood Count 2.81L, Hemoglobin 8.3L, Hematocrit 27.3L , Mean Corpuscular Volume 97, Mean Corpuscular Hemoglobin 29.5, Mean Corpuscular Hemoglobin Concent 30.4L, Red Cell Distribution Width 22.7H, Platelet Count 158, Mean Platelet Volume 7.5, Neutrophils (%) (Auto) 60.6, Lymphocytes (%) (Auto) 29.0, Monocytes (%) (Auto) 5.2, Eosinophils (%) (Auto) 4.1H, Basophils (%) (Auto) 1.1, Prothrombin Time 12.3H, Prothromb Time International Ratio 1.2H, Activated Partial Thromboplast Time 32, Sodium Level 148H, Potassium Level 3.6, Chloride Level 114H, Carbon Dioxide Level 26, Anion Gap 8, Blood Urea Nitrogen 53H, Creatinine 1.2, Estimat Glomerular Filtration Rate , Glucose Level 102, Calcium Level 8.6, Phosphorus Level 4.0, Magnesium Level 1.9, Total Bilirubin 0.5, Aspartate Amino Transf (AST/SGOT) 22, Alanine Aminotransferase (ALT/SGPT) 12, Alkaline Phosphatase 94, Pro-B-Type Natriuretic Peptide > 09091A, Total Protein 6.8, Albumin 1.8L, Globulin 5.0, Albumin/ Globulin Ratio 0.4L Height (Feet): 5 Height (Inches): 4.00 Weight (Pounds): 197 Yenny Ye MD Jun 06, 2019 13:25
[2019-06-06] MEDS ORDERED: Albuterol/Ipratropium 3ml neb HHN PRN (13:30)
[2019-06-06] MEDS ORDERED: Morphine Sulfate 4mg/ml Inj (IV USE ONLY) IVP PRN (13:30)
[2019-06-06] MEDS: Vancomycin 1 GM in D5W 275 ML IVPB SCH (13:30)
[2019-06-06] MEDS ORDERED: Miralax 17gm pkt ORAL PRN (13:30)
[2019-06-06] MEDS ORDERED: LORazepam Inj 2mg/ml 1ml IV PRN (13:30)
--- NOTE | 2019-06-06 16:54 | CDS Physician Query ---
Clarification is required for compliance, coding accuracy, and to reflect severity of illness for this patient Dear Dr. 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 Cardiology consulted, documented CHF with EF- 55-60%, patient started on lasix 40 mg IV q 12hrs, metoprolol 25 mg po q 12hrs. "Heart Failure / CHF" documented in health record. Please Clarify: Acuity [] Acute [] Chronic [] Acute on Chronic Type [] Systolic [] Diastolic [] Systolic & Diastolic (Combined) [] Other: Present on Admission: [] Yes [] No [] Clinically Undetermined Physician signature Date Please also document in your Progress Notes and/or Discharge Summary and indicate if the condition was present on admission. CLIFF
--- NOTE | 2019-06-06 17:12 | NUR ---
RESPIRATORY NOTE: Pt tolerated vent settings well. No changes made. No respiratory distress noted throughout shift. Sx done PRN. Trach patent and secured. Pt remains stable at this time.
--- NOTE | 2019-06-06 18:56 | NUR ---
HAND-OFF: Report given to HORTENCIA Gross. Patient in stable condition.
--- NOTE | 2019-06-06 19:05 | NUR ---
NURSE NOTES: Received patient from HORTENCIA Melara. Will continue plan of care.
--- NOTE | 2019-06-06 19:30 | Consultation ---
DATE OF CONSULTATION: 06/06/2019 GASTROENTEROLOGY CONSULTATION REPORT CHIEF COMPLAINT: I was asked to see this patient by Dr. Jama Keating for evaluation of gastrointestinal bleeding. HISTORY OF PRESENT ILLNESS: The patient is a 79-year-old debilitated woman with multiple medical problems including respiratory failure, requiring a tracheostomy and gastrostomy tube, who comes into the hospital due to dyspnea and respiratory distress. In the ICU, she was found to have two bowel movements, which were black suggestive of gastrointestinal bleeding. This consultation was therefore generated to evaluate this issue. The patient herself is unable to provide any history. Most of the information is only available from the chart. She is tolerating tube feeding. PAST MEDICAL HISTORY: History of type 2 diabetes, chronic respiratory failure, status post tracheostomy, status post gastrostomy, history of atrial flutter, coronary artery disease, dysphagia, pneumonia, renal failure, hypertension, stroke with hemiplegia, hypertension, nonverbal, and bedbound status. FAMILY HISTORY: Noncontributory. SOCIAL HISTORY: The patient is a long-term half-way resident. REVIEW OF SYSTEMS: Otherwise negative. PHYSICAL EXAMINATION: GENERAL: Debilitated woman, seen in the intensive care unit. HEENT: Normocephalic and atraumatic. Sclerae anicteric. Oropharynx clear. NECK: Supple. CHEST: Clear to auscultation. CARDIOVASCULAR: Revealed regular rate. ABDOMEN: Soft. NEUROLOGIC: Notable for arousable state, otherwise noncontributory. LABORATORY DATA: Noted. ASSESSMENT: This patient has multiple medical problems and is on ventilator with permanent tracheostomy. She has had some dark stools, but her blood count actually is higher till yesterday. I will check her stool for occult blood. This is to confirm gastrointestinal bleeding. If positive, then the patient can be considered for endoscopy. The Plavix needs to be continued if there is further evidence of gastrointestinal bleeding with drop in hematocrit and this should be held if feasible. Proton pump inhibitor should be given and I will follow this patient with you. Thank you for asking me to participate in the care of this patient. Yenny Ye M.D. DR: Casie JOB#: [id number] CC: CLIFF
--- NOTE | 2019-06-06 19:52 | NUR ---
RESPIRATORY NOTE: Received pt. on 840 vent. Vent settings are: A/C rate of 16, Vt 500, FI02 40%, PEEP +5. No respiratory distress noted, Ambu bag @ BS. Vent plugged on red outlet. Will continue to monitor pt.
[2019-06-07] VITALS: BP 168/84
[2019-06-07 04:00] VITALS: BP 175/83
[2019-06-07 04:45] LABS: BASOPHILS % (AUTO) 1.2 % (0.0-2.0); EOSINOPHILS % (AUTO) 3.5 % (0.0-3.0); HEMATOCRIT 27.7 % (37.0-47.0); HEMOGLOBIN 8.3 G/DL (12.0-16.0); LYMPHOCYTES % (AUTO) 28.4 % (20.0-45.0); MEAN CORPUSCULAR VOLUME 97 FL (80-99); MONOCYTES % (AUTO) 5.5 % (1.0-10.0); NEUTROPHILS % (AUTO) 61.4 % (45.0-75.0); PLATELET COUNT 155 K/UL (150-450); RED BLOOD COUNT 2.86 M/UL (4.20-5.40); RED CELL DISTRIBUTION WIDTH 22.7 % (11.6-14.8); WHITE BLOOD COUNT 7.6 K/UL (4.8-10.8)
[2019-06-07 04:57] LABS: ALANINE AMINOTRANSFERASE 8 U/L (12-78); ALBUMIN 1.7 G/DL (3.4-5.0); ALBUMIN/GLOBULIN RATIO 0.3 (1.0-2.7); ALKALINE PHOSPHATASE 87 U/L (46-116); ANION GAP 11 mmol/L (5-15); ASPARTATE AMINO TRANSFERASE 20 U/L (15-37); BILIRUBIN,TOTAL 0.5 MG/DL (0.2-1.0); BLOOD UREA NITROGEN 51 mg/dL (7-18); CALCIUM 8.9 MG/DL (8.5-10.1); CARBON DIOXIDE 26 MMOL/L (21-32); CHLORIDE 112 MMOL/L (98-107); CREATININE 1.2 MG/DL (0.55-1.30); PHOSPHORUS 3.8 MG/DL (2.5-4.9); POTASSIUM 3.5 MMOL/L (3.5-5.1); SODIUM 149 MMOL/L (136-145)
--- NOTE | 2019-06-07 07:12 | NUR ---
NURSE NOTES: Received pt from HORTENCIA Gross. Opens eyes and has good eye contact. Pupils reactive and equal. FLACC 0/10; flat expression. Patient has a trach to vent; Shiley 8.0, AC 16/500/40%/+5. Rhonchi heard bilateral breath sounds. Minimal secretions noted from sxn. PEG running Jevity 1.2@30m/hr, abdomen is round but soft and non-distended. HOB 35 degrees. Incontinent with purwick connected to sxn, draining well. Left upper chest IV 22G on TKO, patent and asymptomatic. Sinus rhythm, HR 78 on classroom monitor. Afebrile. Edema noted on all extremities +1 BLE, +2 BUE. Bed locked, alarmed and in lowest position. Will continue plan of care.
--- NOTE | 2019-06-07 07:15 | NUR ---
RESPIRATORY NOTE: Received pt on current vent settings:AC 16-500ml-40%FiO2-peep 5. Pt is trach dependent with Shiley cuffed size 8, secured by trach guard and trach tie. Pt is awake, open eyes, responds to stimuli, follow some simple commands but not all. Gus rhonchi breath sound heard upon auscultation, suctioned large amounts of thick marin secretions without incidents. No SOB or resp distress noted. Alarms are set and audible, vent is plugged into the red outlet, ambu bag and spare trach kit at bedside. Vent circuits and suction tubing are secure and out of the way. Will continue to monitor pt.
--- NOTE | 2019-06-07 07:25 | NUR ---
HAND-OFF: Report given to DERRICK COLON RN.
[2019-06-07 08:00] VITALS: BP 154/71
[2019-06-07] MEDS: Levofloxacin 750mg tab GT SCH (08:20)
[2019-06-07] MEDS: Pantoprazole Inj IV SCH (08:21)
[2019-06-07] MEDS: Metoprolol 25mg tab ORAL SCH ×2 (08:21→20:31)
[2019-06-07] MEDS: Heparin 5000 units/ml inj SUBQ SCH ×2 (08:21→20:32)
--- NOTE | 2019-06-07 09:08 | General Progress Note ---
Assessment/Plan Problem List: (1) Acute and chronic respiratory failure ICD Codes: J96.20 - Acute and chronic respiratory failure, unspecified whether with hypoxia or hypercapnia SNOMED: 49852795 (2) History of CVA (cerebrovascular accident) ICD Codes: Z86.73 - Personal history of transient ischemic attack (TIA), and cerebral infarction without residual deficits SNOMED: 255942232 (3) CAD (coronary artery disease) ICD Codes: I25.10 - Atherosclerotic heart disease of [place] coronary artery without angina pectoris SNOMED: 87372564 (4) Right hemiplegia ICD Codes: G81.91 - Hemiplegia, unspecified affecting right dominant side SNOMED: 153021593 (5) Diabetes mellitus ICD Codes: E11.9 - Type 2 diabetes mellitus without complications SNOMED: 62254521 (6) Hypertensive heart disease ICD Codes: I11.9 - Hypertensive heart disease without heart failure SNOMED: 77297046 (7) 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2 - Chronic kidney disease, stage 2 (mild); D63.1 - Anemia in chronic kidney disease (11) Severe sepsis ICD Codes: A41.9 - Sepsis, unspecified organism; R65.20 - Severe sepsis without septic shock SNOMED: 77126209 Status: stable, progressing Assessment/Plan: vent abx bp bs control cbc bmp am Subjective Constitutional: Reports: weakness Allergies: Coded Allergies: No Known Allergies (Unverified , 04/12/19) All Systems: reviewed and negative except above Subjective trach vent altered Objective Last 24 Hour Vital Signs Date Time Temp Pulse Resp B/P (MAP) Pulse Ox O2 Delivery O2 Flow Rate FiO2 06/07/19 08:21 75 154/90 06/07/19 08:11 30 06/07/19 08:00 98.6 75 16 154/71 (98) 100 06/07/19 08:00 Mechanical Ventilator 06/07/19 08:00 73 06/07/19 08:00 40 06/07/19 07:57 30 06/07/19 07:15 64 16 40 06/07/19 05:18 76 18 40 06/07/19 04:00 Mechanical Ventilator 06/07/19 04:00 98.1 76 16 175/83 (113) 100 06/07/19 04:00 40 06/07/19 03:34 75 06/07/19 02:58 80 17 40 06/07/19 01:26 72 16 40 06/07/19 00:00 98.2 65 16 168/84 (112) 100 06/07/19 00:00 Mechanical Ventilator 06/07/19 00:00 40 06/06/19 23:32 70 06/06/19 23:30 69 18 40 06/06/19 21:15 64 18 40 06/06/19 20:52 69 172/81 06/06/19 20:00 97.7 69 16 172/81 (111) 100 06/06/19 20:00 Mechanical Ventilator 06/06/19 20:00 40 06/06/19 19:50 68 18 40 06/06/19 19:48 65 06/06/19 17:12 78 16 40 06/06/19 16:00 40 06/06/19 16:00 Mechanical Ventilator 06/06/19 16:00 80 06/06/19 16:00 78 16 155/82 (106) 100 06/06/19 14:40 76 16 40 06/06/19 13:16 72 16 151/80 (103) 98 06/06/19 13:00 72 16 152/82 (105) 97 06/06/19 12:40 83 17 40 06/06/19 12:00 98.6 75 16 152/72 (98) 98 06/06/19 12:00 40 06/06/19 12:00 75 06/06/19 12:00 Mechanical Ventilator 06/06/19 11:22 69 16 40 06/06/19 11:00 67 16 149/89 (109) 97 06/06/19 10:00 62 147/68 (94) 100 Intake and Output 06/06/19 06/07/19 19:00 07:00 Intake Total 835.00 ml 585 ml Output Total 410 ml 500 ml Balance 425.00 ml 85 ml Free Water 200 ml 100 ml IV Total 275.00 ml 55 ml Tube Feeding 360 ml 330 ml Other 100 ml Output Urine Total 410 ml 500 ml # Bowel Movements 1 4 Laboratory Tests 06/07/19 02:00: Stool Occult Blood [Pending] 06/07/19 03:20: White Blood Count 7.6, Red Blood Count 2.86L, Hemoglobin 8.3L, Hematocrit 27.7L , Mean Corpuscular Volume 97, Mean Corpuscular Hemoglobin 29.2, Mean Corpuscular Hemoglobin Concent 30.1L, Red Cell Distribution Width 22.7H, Platelet Count 155, Mean Platelet Volume 6.9, Neutrophils (%) (Auto) 61.4, Lymphocytes (%) (Auto) 28.4, Monocytes (%) (Auto) 5.5, Eosinophils (%) (Auto) 3.5H, Basophils (%) (Auto) 1.2, Sodium Level 149H, Potassium Level 3.5, Chloride Level 112H, Carbon Dioxide Level 26, Anion Gap 11, Blood Urea Nitrogen 51H, Creatinine 1.2, Estimat Glomerular Filtration Rate , Glucose Level 143H, Calcium Level 8.9, Phosphorus Level 3.8, Magnesium Level 2.1, Total Bilirubin 0.5, Aspartate Amino Transf (AST/SGOT) 20, Alanine Aminotransferase (ALT/SGPT) 8L, Alkaline Phosphatase 87, Total Protein 6.8, Albumin 1.7L, Globulin 5.1, Albumin/Globulin Ratio 0.3L 06/07/19 07:40: Arterial Blood pH 7.427, Arterial Blood Partial Pressure CO2 38.2, Arterial Blood Partial Pressure O2 109.3H, Arterial Blood HCO3 24.6, Arterial Blood Oxygen Saturation 97.8, Arterial Blood Base Excess 0.3, Marlo Test Positive Height (Feet): 5 Height (Inches): 4.00 Weight (Pounds): 196 General Appearance: lethargic EENT: normal ENT inspection Neck: normal alignment Cardiovascular: normal peripheral pulses, normal rate, regular rhythm Respiratory/Chest: chest wall non-tender, lungs clear, normal breath sounds Abdomen: normal bowel sounds, non tender, soft Extremities: normal inspection Edema: no edema noted Arm (L), no edema noted Arm (R), no edema noted Leg (L), no edema noted Leg (R), no edema noted Pedal (L), no edema noted Pedal (R), no edema noted Generalized Neurologic: motor weakness Skin: normal pigmentation, warm/dry Jama Keating DO Jun 07, 2019 09:08
--- NOTE | 2019-06-07 09:19 | Cardiac Electrophysiology PN ---
Assessment/Plan Assessment/Plan 1. CHF with BNP of 35,000. On Lasix 40 mg IV b.i.d. Echo EF of 55% to 60%. 2. Hypertension. On Lopressor 25 bid and Lasix 40 IV b.i.d. 3. History of atrial flutter that self-terminated. 4. Troponin leak and CAD with inferolateral T-wave inversion, levels flat and no CP. Could be due to severe anemia Hb 7.0. On Metoprolol 25 bid and Plavix 5. Sepsis with elevated white count. On IV antibiotics. 6. Ventilator-dependent respiratory failure, status post tracheostomy on April. 7. Dysphagia, status post PEG tube on April 22, 2019. 8. History of CVA and hemiplegia. 9. Nonverbal status. 10. History of anemia status post blood transfusion.S/P another PRBC 06/05/19 11. Status post renal failure. BUN and creatinine is 15 and 1.3. 12. Lactic acidosis, likely due to sepsis. 13. Hypokalemia, Replaced today DW RN Subjective Subjective Transferred out of ICU. RN at bedside.In SR off pressors Objective Last 24 Hour Vital Signs Date Time Temp Pulse Resp B/P (MAP) Pulse Ox O2 Delivery O2 Flow Rate FiO2 06/07/19 08:21 75 154/90 06/07/19 08:11 30 06/07/19 08:00 98.6 75 16 154/71 (98) 100 06/07/19 08:00 Mechanical Ventilator 06/07/19 08:00 73 06/07/19 08:00 40 06/07/19 07:57 30 06/07/19 07:15 64 16 40 06/07/19 05:18 76 18 40 06/07/19 04:00 Mechanical Ventilator 06/07/19 04:00 98.1 76 16 175/83 (113) 100 06/07/19 04:00 40 06/07/19 03:34 75 06/07/19 02:58 80 17 40 06/07/19 01:26 72 16 40 06/07/19 00:00 98.2 65 16 168/84 (112) 100 06/07/19 00:00 Mechanical Ventilator 06/07/19 00:00 40 06/06/19 23:32 70 06/06/19 23:30 69 18 40 06/06/19 21:15 64 18 40 06/06/19 20:52 69 172/81 06/06/19 20:00 97.7 69 16 172/81 (111) 100 06/06/19 20:00 Mechanical Ventilator 06/06/19 20:00 40 06/06/19 19:50 68 18 40 06/06/19 19:48 65 06/06/19 17:12 78 16 40 06/06/19 16:00 40 06/06/19 16:00 Mechanical Ventilator 06/06/19 16:00 80 06/06/19 16:00 78 16 155/82 (106) 100 06/06/19 14:40 76 16 40 06/06/19 13:16 72 16 151/80 (103) 98 06/06/19 13:00 72 16 152/82 (105) 97 06/06/19 12:40 83 17 40 06/06/19 12:00 98.6 75 16 152/72 (98) 98 06/06/19 12:00 40 06/06/19 12:00 75 06/06/19 12:00 Mechanical Ventilator 06/06/19 11:22 69 16 40 06/06/19 11:00 67 16 149/89 (109) 97 06/06/19 10:00 62 147/68 (94) 100 Intake and Output 06/06/19 06/07/19 19:00 07:00 Intake Total 835.00 ml 585 ml Output Total 410 ml 500 ml Balance 425.00 ml 85 ml Free Water 200 ml 100 ml IV Total 275.00 ml 55 ml Tube Feeding 360 ml 330 ml Other 100 ml Output Urine Total 410 ml 500 ml # Bowel Movements 1 4 Laboratory Tests Test 06/07/19 02:00 06/07/19 03:20 06/07/19 07:40 Stool Occult Blood Pending White Blood Count 7.6 K/UL (4.8-10.8) Red Blood Count 2.86 M/UL (4.20-5.40) L Hemoglobin 8.3 G/DL (12.0-16.0) L Hematocrit 27.7 % (37.0-47.0) L Mean Corpuscular Volume 97 FL (80-99) Mean Corpuscular Hemoglobin 29.2 PG (27.0-31.0) Mean Corpuscular Hemoglobin Concent 30.1 G/DL (32.0-36.0) L Red Cell Distribution Width 22.7 % (11.6-14.8) H Platelet Count 155 K/UL (150-450) Mean Platelet Volume 6.9 FL (6.5-10.1) Neutrophils (%) (Auto) 61.4 % (45.0-75.0) Lymphocytes (%) (Auto) 28.4 % (20.0-45.0) Monocytes (%) (Auto) 5.5 % (1.0-10.0) Eosinophils (%) (Auto) 3.5 % (0.0-3.0) H Basophils (%) (Auto) 1.2 % (0.0-2.0) Sodium Level 149 MMOL/L (136-145) H Potassium Level 3.5 MMOL/L (3.5-5.1) Chloride Level 112 MMOL/L (98-107) H Carbon Dioxide Level 26 MMOL/L (21-32) Anion Gap 11 mmol/L (5-15) Blood Urea Nitrogen 51 mg/dL (7-18) H Creatinine 1.2 MG/DL (0.55-1.30) Estimat Glomerular Filtration Rate mL/min (>60) Glucose Level 143 MG/DL (74-106) H Calcium Level 8.9 MG/DL (8.5-10.1) Phosphorus Level 3.8 MG/DL (2.5-4.9) Magnesium Level 2.1 MG/DL (1.8-2.4) Total Bilirubin 0.5 MG/DL (0.2-1.0) Aspartate Amino Transf (AST/SGOT) 20 U/L (15-37) Alanine Aminotransferase (ALT/SGPT) 8 U/L (12-78) L Alkaline Phosphatase 87 U/L (46-116) Total Protein 6.8 G/DL (6.4-8.2) Albumin 1.7 G/DL (3.4-5.0) L Globulin 5.1 g/dL Albumin/Globulin Ratio 0.3 (1.0-2.7) L Arterial Blood pH 7.427 (7.350-7.450) Arterial Blood Partial Pressure CO2 38.2 mmHg (35.0-45.0) Arterial Blood Partial Pressure O2 109.3 mmHg (75.0-100.0) H Arterial Blood HCO3 24.6 mmol/L (22.0-26.0) Arterial Blood Oxygen Saturation 97.8 % (95-100) Arterial Blood Base Excess 0.3 (-2-2) Marlo Test Positive Microbiology Date/Time Source Procedure Growth Status 06/04/19 10:00 Blood Blood Culture - Final Bacillus Sp Not B. Anthracis Complete 06/04/19 09:50 Blood Blood Culture - Preliminary NO GROWTH AFTER 48 HOURS Resulted 06/04/19 10:00 Nasal Nares Left MRSA Culture - Final NO METHICILLIN RESISTANT STAPH AUREUS... Complete 06/04/19 10:00 Rectum VRE Culture - Final Enterococcus Faecium - Vre Complete 06/04/19 10:00 Rectum Received Objective HEAD AND NECK: No JVD. LUNGS: Decreased breath sounds. Status post tracheostomy. CARDIOVASCULAR: Shows regular S1 and S2 with no gallop. ABDOMEN: Status post G-tube. EXTREMITIES: Have anasarca. Claude Pena MD Jun 07, 2019 09:19
--- NOTE | 2019-06-07 09:22 | NUR ---
NURSE NOTES: Received orders for K-dur [address] Pena
--- NOTE | 2019-06-07 10:26 | GI Progress Note ---
Assessment/Plan Problems: (1) GI bleed ICD Codes: K92.2 - Gastrointestinal hemorrhage, unspecified SNOMED: 36904001 (2) Black tarry stools ICD Codes: K92.1 - [place] SNOMED: 266793643 (3) Severe sepsis ICD Codes: A41.9 - Sepsis, unspecified organism; R65.20 - Severe sepsis without septic shock SNOMED: 70649320 (4) G tube feedings ICD Codes: Z93.1 - Gastrostomy status SNOMED: 452824446, 859718765, 294364488 (5) Anemia in chronic kidney disease (CKD) ICD Codes: N18.9 - Chronic kidney disease, unspecified; D63.1 - Anemia in chronic kidney disease SNOMED: 404406900 Qualifiers: Qualified Codes: N18.2 - Chronic kidney disease, stage 2 (mild); D63.1 - Anemia in chronic kidney disease Status: unchanged Status Narrative Discussed with Dr. Gentile. Assessment/Plan OB stool positive Plavix discontinued, EGD scheduled for Friday06/09/19. - plavix to be restarted by primary after procedure. PPI twice daily As needed transfusions Antibiotics G-tube feedings per RD The patient was seen and examined at bedside and all new and available data was reviewed in the patients chart. I agree with the above findings, impression and plan. (Patient seen earlier today. Signature stamp does not reflect patient encounter time.). - Darron Gentile MD Subjective Subjective limited Objective Last 24 Hour Vital Signs Date Time Temp Pulse Resp B/P (MAP) Pulse Ox O2 Delivery O2 Flow Rate FiO2 06/07/19 08:59 81 16 30 06/07/19 08:21 75 154/90 06/07/19 08:11 30 06/07/19 08:00 98.6 75 16 154/71 (98) 100 06/07/19 08:00 Mechanical Ventilator 06/07/19 08:00 73 06/07/19 08:00 40 06/07/19 07:57 30 06/07/19 07:15 64 16 40 06/07/19 05:18 76 18 40 06/07/19 04:00 Mechanical Ventilator 06/07/19 04:00 98.1 76 16 175/83 (113) 100 06/07/19 04:00 40 06/07/19 03:34 75 06/07/19 02:58 80 17 40 06/07/19 01:26 72 16 40 06/07/19 00:00 98.2 65 16 168/84 (112) 100 06/07/19 00:00 Mechanical Ventilator 06/07/19 00:00 40 06/06/19 23:32 70 06/06/19 23:30 69 18 40 06/06/19 21:15 64 18 40 06/06/19 20:52 69 172/81 06/06/19 20:00 97.7 69 16 172/81 (111) 100 06/06/19 20:00 Mechanical Ventilator 06/06/19 20:00 40 06/06/19 19:50 68 18 40 06/06/19 19:48 65 06/06/19 17:12 78 16 40 06/06/19 16:00 40 06/06/19 16:00 Mechanical Ventilator 06/06/19 16:00 80 06/06/19 16:00 78 16 155/82 (106) 100 06/06/19 14:40 76 16 40 06/06/19 13:16 72 16 151/80 (103) 98 06/06/19 13:00 72 16 152/82 (105) 97 06/06/19 12:40 83 17 40 06/06/19 12:00 98.6 75 16 152/72 (98) 98 06/06/19 12:00 40 06/06/19 12:00 75 06/06/19 12:00 Mechanical Ventilator 06/06/19 11:22 69 16 40 06/06/19 11:00 67 16 149/89 (109) 97 Intake and Output 06/06/19 06/07/19 19:00 07:00 Intake Total 835.00 ml 585 ml Output Total 410 ml 500 ml Balance 425.00 ml 85 ml Free Water 200 ml 100 ml IV Total 275.00 ml 55 ml Tube Feeding 360 ml 330 ml Other 100 ml Output Urine Total 410 ml 500 ml # Bowel Movements 1 4 Laboratory Tests Test 06/07/19 02:00 06/07/19 03:20 06/07/19 07:40 Stool Occult Blood Pending White Blood Count 7.6 K/UL (4.8-10.8) Red Blood Count 2.86 M/UL (4.20-5.40) L Hemoglobin 8.3 G/DL (12.0-16.0) L Hematocrit 27.7 % (37.0-47.0) L Mean Corpuscular Volume 97 FL (80-99) Mean Corpuscular Hemoglobin 29.2 PG (27.0-31.0) Mean Corpuscular Hemoglobin Concent 30.1 G/DL (32.0-36.0) L Red Cell Distribution Width 22.7 % (11.6-14.8) H Platelet Count 155 K/UL (150-450) Mean Platelet Volume 6.9 FL (6.5-10.1) Neutrophils (%) (Auto) 61.4 % (45.0-75.0) Lymphocytes (%) (Auto) 28.4 % (20.0-45.0) Monocytes (%) (Auto) 5.5 % (1.0-10.0) Eosinophils (%) (Auto) 3.5 % (0.0-3.0) H Basophils (%) (Auto) 1.2 % (0.0-2.0) Sodium Level 149 MMOL/L (136-145) H Potassium Level 3.5 MMOL/L (3.5-5.1) Chloride Level 112 MMOL/L (98-107) H Carbon Dioxide Level 26 MMOL/L (21-32) Anion Gap 11 mmol/L (5-15) Blood Urea Nitrogen 51 mg/dL (7-18) H Creatinine 1.2 MG/DL (0.55-1.30) Estimat Glomerular Filtration Rate mL/min (>60) Glucose Level 143 MG/DL (74-106) H Calcium Level 8.9 MG/DL (8.5-10.1) Phosphorus Level 3.8 MG/DL (2.5-4.9) Magnesium Level 2.1 MG/DL (1.8-2.4) Total Bilirubin 0.5 MG/DL (0.2-1.0) Aspartate Amino Transf (AST/SGOT) 20 U/L (15-37) Alanine Aminotransferase (ALT/SGPT) 8 U/L (12-78) L Alkaline Phosphatase 87 U/L (46-116) Total Protein 6.8 G/DL (6.4-8.2) Albumin 1.7 G/DL (3.4-5.0) L Globulin 5.1 g/dL Albumin/Globulin Ratio 0.3 (1.0-2.7) L Arterial Blood pH 7.427 (7.350-7.450) Arterial Blood Partial Pressure CO2 38.2 mmHg (35.0-45.0) Arterial Blood Partial Pressure O2 109.3 mmHg (75.0-100.0) H Arterial Blood HCO3 24.6 mmol/L (22.0-26.0) Arterial Blood Oxygen Saturation 97.8 % (95-100) Arterial Blood Base Excess 0.3 (-2-2) Marlo Test Positive Height (Feet): 5 Height (Inches): 4.00 Weight (Pounds): 196 General Appearance: no apparent distress Cardiovascular: normal rate Respiratory/Chest: normal breath sounds, no respiratory distress, other - mech vent Abdominal Exam: normal bowel sounds, non tender, soft Extremities: non-tender Aron Torres NP Jun 07, 2019 10:26
--- NOTE | 2019-06-07 10:43 | Hematology/Onc Progress Note ---
Assessment/Plan Assessment/Plan Assessment/Plan: # Anemia of chronic disease likely multifactorial process, in the past has had anemia as well --> w/u reveals ferritin is >1500, esr and crp are elevated --> on abx at this time, ID recs as needed --> smear has been reviewed, no schistocytes noted --> monitor for bleed, transfuse with 1 unit 06/05 --> hgb goal >7 and transfuse as needed --> cea is 4.2 is wnl # Leukocytosis with Pulmonary infiltrates vs pulmonary edema hx of trach, had sepsis --> CXR: Excessive bilateral diffuse infiltrates versus edema, increased from prior study of 05/05/2019 --> on annmarie and vanc iv abx --> imaging has been reviewed # REMY on CKD --> per renal recs # Recent PNA --> s/p abx with Rx # HyperGlycemia / DM 24 H urine protein check 2.4 gram # Right Esvin due to CVA # HTN is on metp --> sbo goal <150 # Dhronic resp failure s/p trach/vent dependant --> trach on 05/03/19 # Dysphagia s/p PEG # Nonverbal status # SNF resident Time of note does not necessarily correspond to when patient was seen. Greatly appreciate consultation. Subjective Allergies: Coded Allergies: No Known Allergies (Unverified , 04/12/19) All Systems: reviewed and negative except above Subjective 06/07: on trach, vent, remains altered, is off pressors, h/h reviewed Objective Objective Current Medications Medications (Trade) Dose Ordered Sig/Kenisha Route PRN Reason Start Time Stop Time Status Last Admin Dose Admin Acetaminophen (Tylenol) 650 mg Q4H PRN ORAL FEVER (temp>100.5 F) 06/06/19 13:30 07/04/19 13:29 Albuterol/ Ipratropium (Albuterol/ Ipratropium) 3 ml Q4H PRN HHN Shortness of Breath 06/06/19 13:30 06/09/19 13:29 Clopidogrel Bisulfate (Plavix) 75 mg DAILY ORAL 06/07/19 09:00 07/05/19 08:59 06/07/19 08:21 Dextrose (Dextrose 50%) 25 ml Q30M PRN IV Hypoglycemia 06/06/19 13:30 07/04/19 15:21 Dextrose (Dextrose 50%) 50 ml Q30M PRN IV hypoglycemia 06/06/19 13:30 07/04/19 15:29 Furosemide (Lasix) 40 mg EVERY 12 HOURS IV 06/06/19 21:00 07/04/19 20:59 06/07/19 08:21 Heparin Sodium (Porcine) (Heparin 5000 units/ml) 5,000 units EVERY 12 HOURS SUBQ 06/06/19 21:00 07/04/19 20:59 Levofloxacin (Levaquin) 750 mg EVERY OTHER DAY GT 06/07/19 09:00 06/12/19 12:59 06/07/19 08:20 Lorazepam (Ativan 2mg/ml 1ml) 2 mg Q2H PRN IV For Anxiety 06/06/19 13:30 06/11/19 13:29 Meropenem 1 gm/ Sodium Chloride 55 ml @ 110 mls/hr Q12HR@0000,1200 IVPB 06/07/19 00:00 06/10/19 11:59 06/06/19 23:33 Metoprolol Tartrate (Lopressor) 25 mg EVERY 12 HOURS ORAL 06/06/19 21:00 07/04/19 20:59 06/07/19 08:21 Morphine Sulfate (Morphine Sulfate) 4 mg Q4H PRN IVP Severe Pain (Pain Scale 7-10) 06/06/19 13:30 06/11/19 13:29 Ondansetron HCl (Zofran) 4 mg Q6H PRN IVP Nausea & Vomiting 06/06/19 13:30 07/04/19 13:29 Pantoprazole (Protonix) 40 mg DAILY IV 06/07/19 09:00 07/05/19 08:59 06/07/19 08:21 Polyethylene Glycol (Miralax) 17 gm DAILYPRN PRN ORAL Constipation 06/06/19 13:30 07/04/19 13:29 Potassium Chloride (K-Dur) 20 meq TWICE A DAY GT 06/07/19 18:00 07/07/19 17:59 Vancomycin HCl (Vanco rx to dose) 1 ea DAILY PRN MISC PER RX PROTOCOL 06/06/19 13:30 07/06/19 13:29 Vancomycin HCl 1 gm/Dextrose 275 ml @ 183.3 mls/ hr Q24H IVPB 06/06/19 13:00 06/11/19 12:59 06/06/19 13:30 Last 24 Hour Vital Signs Date Time Temp Pulse Resp B/P (MAP) Pulse Ox O2 Delivery O2 Flow Rate FiO2 06/07/19 08:59 81 16 30 06/07/19 08:21 75 154/90 06/07/19 08:11 30 06/07/19 08:00 98.6 75 16 154/71 (98) 100 06/07/19 08:00 Mechanical Ventilator 06/07/19 08:00 73 06/07/19 08:00 40 06/07/19 07:57 30 06/07/19 07:15 64 16 40 06/07/19 05:18 76 18 40 06/07/19 04:00 Mechanical Ventilator 06/07/19 04:00 98.1 76 16 175/83 (113) 100 06/07/19 04:00 40 06/07/19 03:34 75 06/07/19 02:58 80 17 40 06/07/19 01:26 72 16 40 06/07/19 00:00 98.2 65 16 168/84 (112) 100 06/07/19 00:00 Mechanical Ventilator 06/07/19 00:00 40 06/06/19 23:32 70 06/06/19 23:30 69 18 40 06/06/19 21:15 64 18 40 06/06/19 20:52 69 172/81 06/06/19 20:00 97.7 69 16 172/81 (111) 100 06/06/19 20:00 Mechanical Ventilator 06/06/19 20:00 40 06/06/19 19:50 68 18 40 06/06/19 19:48 65 06/06/19 17:12 78 16 40 06/06/19 16:00 40 06/06/19 16:00 Mechanical Ventilator 06/06/19 16:00 80 06/06/19 16:00 78 16 155/82 (106) 100 06/06/19 14:40 76 16 40 06/06/19 13:16 72 16 151/80 (103) 98 06/06/19 13:00 72 16 152/82 (105) 97 06/06/19 12:40 83 17 40 06/06/19 12:00 98.6 75 16 152/72 (98) 98 06/06/19 12:00 40 06/06/19 12:00 75 06/06/19 12:00 Mechanical Ventilator 06/06/19 11:22 69 16 40 06/06/19 11:00 67 16 149/89 (109) 97 06/06/19 10:00 62 147/68 (94) 100 06/06/19 09:00 63 144/58 (86) 100 06/06/19 08:48 64 16 40 06/06/19 08:33 73 157/69 06/06/19 08:00 Mechanical Ventilator 06/06/19 08:00 66 06/06/19 08:00 98.2 64 16 157/69 (98) 100 06/06/19 08:00 40 06/06/19 07:00 76 152/82 (105) 100 06/06/19 06:32 82 17 40 06/06/19 06:00 80 147/71 (96) 100 06/06/19 05:23 68 16 40 06/06/19 05:00 98.7 74 162/77 (105) 100 06/06/19 04:00 Mechanical Ventilator 06/06/19 04:00 40 06/06/19 04:00 65 06/06/19 04:00 78 162/74 (103) 100 06/06/19 03:07 74 17 40 06/06/19 03:00 77 160/72 (101) 100 06/06/19 02:00 74 148/69 (95) 100 06/06/19 01:30 72 16 40 06/06/19 01:00 72 153/79 (103) 100 06/06/19 00:00 98.6 69 154/83 (106) 100 06/06/19 00:00 Mechanical Ventilator 06/06/19 00:00 40 06/06/19 00:00 69 06/05/19 23:30 70 16 40 06/05/19 23:00 65 153/58 (89) 100 06/05/19 22:00 66 145/75 (98) 100 06/05/19 21:00 72 144/65 (91) 100 06/05/19 20:51 77 155/69 06/05/19 20:48 71 16 40 06/05/19 20:00 Mechanical Ventilator 06/05/19 20:00 98.3 72 17 155/69 (97) 100 06/05/19 20:00 40 06/05/19 20:00 72 06/05/19 20:00 66 06/05/19 19:30 73 17 40 06/05/19 19:00 75 16 151/73 (99) 100 06/05/19 18:00 16 134/78 (96) 100 06/05/19 17:31 72 16 40 06/05/19 17:00 72 16 144/80 (101) 100 06/05/19 16:06 98.5 70 12 144/71 (95) 100 06/05/19 16:02 Mechanical Ventilator 06/05/19 16:01 40 06/05/19 16:00 68 06/05/19 15:13 70 17 40 06/05/19 15:06 98.5 69 22 150/89 (109) 100 06/05/19 14:00 71 18 143/71 (95) 100 06/05/19 13:00 137/62 (87) 06/05/19 12:42 68 16 40 06/05/19 12:00 40 06/05/19 12:00 64 06/05/19 12:00 98.0 67 16 126/64 (84) 99 06/05/19 12:00 Mechanical Ventilator 06/05/19 11:52 68 16 40 06/05/19 11:00 68 16 137/64 (88) 99 Intake and Output 06/06/19 06/07/19 19:00 07:00 Intake Total 835.00 ml 585 ml Output Total 410 ml 500 ml Balance 425.00 ml 85 ml Free Water 200 ml 100 ml IV Total 275.00 ml 55 ml Tube Feeding 360 ml 330 ml Other 100 ml Output Urine Total 410 ml 500 ml # Bowel Movements 1 4 Labs Test 06/04/19 11:27 06/04/19 12:15 06/04/19 19:00 06/05/19 02:55 Arterial Blood pH 7.380 (7.350-7.450) Arterial Blood Partial Pressure CO2 36.5 mmHg (35.0-45.0) Arterial Blood Partial Pressure O2 72.0 mmHg (75.0-100.0) Arterial Blood HCO3 21.1 mmol/L (22.0-26.0) Arterial Blood Oxygen Saturation 93.3 % (95-100) Arterial Blood Base Excess -3.6 (-2-2) Marlo Test Positive Lactic Acid Level 2.00 mmol/L (0.66-2.22) Troponin I 0.649 ng/mL (0.000-0.056) 0.427 ng/mL (0.000-0.056) White Blood Count 10.8 K/UL (4.8-10.8) Red Blood Count 2.55 M/UL (4.20-5.40) Hemoglobin 7.6 G/DL (12.0-16.0) Hematocrit 25.2 % (37.0-47.0) Mean Corpuscular Volume 99 FL (80-99) Mean Corpuscular Hemoglobin 29.8 PG (27.0-31.0) Mean Corpuscular Hemoglobin Concent 30.2 G/DL (32.0-36.0) Red Cell Distribution Width 22.0 % (11.6-14.8) Platelet Count 157 K/UL (150-450) Mean Platelet Volume 7.1 FL (6.5-10.1) Neutrophils (%) (Auto) % (45.0-75.0) Lymphocytes (%) (Auto) % (20.0-45.0) Monocytes (%) (Auto) % (1.0-10.0) Eosinophils (%) (Auto) % (0.0-3.0) Basophils (%) (Auto) % (0.0-2.0) Differential Total Cells Counted 100 Neutrophils % (Manual) 73 % (45-75) Lymphocytes % (Manual) 18 % (20-45) Monocytes % (Manual) 6 % (1-10) Eosinophils % (Manual) 3 % (0-3) Basophils % (Manual) 0 % (0-2) Band Neutrophils 0 % (0-8) Platelet Estimate Adequate Platelet Morphology Normal Hypochromasia 3+ Anisocytosis 3+ Sodium Level 146 MMOL/L (136-145) Potassium Level 3.9 MMOL/L (3.5-5.1) Chloride Level 112 MMOL/L (98-107) Carbon Dioxide Level 26 MMOL/L (21-32) Anion Gap 8 mmol/L (5-15) Blood Urea Nitrogen 55 mg/dL (7-18) Creatinine 1.2 MG/DL (0.55-1.30) Estimat Glomerular Filtration Rate mL/min (>60) Glucose Level 76 MG/DL (74-106) Calcium Level 8.5 MG/DL (8.5-10.1) Phosphorus Level 4.1 MG/DL (2.5-4.9) Pro-B-Type Natriuretic Peptide > 03430 pg/mL (0-125) Albumin 1.7 G/DL (3.4-5.0) Test 06/05/19 09:50 06/06/19 07:00 06/07/19 02:00 06/07/19 03:20 Troponin I 0.282 ng/mL (0.000-0.056) White Blood Count 8.3 K/UL (4.8-10.8) 7.6 K/UL (4.8-10.8) Red Blood Count 2.81 M/UL (4.20-5.40) 2.86 M/UL (4.20-5.40) Hemoglobin 8.3 G/DL (12.0-16.0) 8.3 G/DL (12.0-16.0) Hematocrit 27.3 % (37.0-47.0) 27.7 % (37.0-47.0) Mean Corpuscular Volume 97 FL (80-99) 97 FL (80-99) Mean Corpuscular Hemoglobin 29.5 PG (27.0-31.0) 29.2 PG (27.0-31.0) Mean Corpuscular Hemoglobin Concent 30.4 G/DL (32.0-36.0) 30.1 G/DL (32.0-36.0) Red Cell Distribution Width 22.7 % (11.6-14.8) 22.7 % (11.6-14.8) Platelet Count 158 K/UL (150-450) 155 K/UL (150-450) Mean Platelet Volume 7.5 FL (6.5-10.1) 6.9 FL (6.5-10.1) Neutrophils (%) (Auto) 60.6 % (45.0-75.0) 61.4 % (45.0-75.0) Lymphocytes (%) (Auto) 29.0 % (20.0-45.0) 28.4 % (20.0-45.0) Monocytes (%) (Auto) 5.2 % (1.0-10.0) 5.5 % (1.0-10.0) Eosinophils (%) (Auto) 4.1 % (0.0-3.0) 3.5 % (0.0-3.0) Basophils (%) (Auto) 1.1 % (0.0-2.0) 1.2 % (0.0-2.0) Prothrombin Time 12.3 SEC (9.30-11.50) Prothromb Time International Ratio 1.2 (0.9-1.1) Activated Partial Thromboplast Time 32 SEC (23-33) Sodium Level 148 MMOL/L (136-145) 149 MMOL/L (136-145) Potassium Level 3.6 MMOL/L (3.5-5.1) 3.5 MMOL/L (3.5-5.1) Chloride Level 114 MMOL/L (98-107) 112 MMOL/L (98-107) Carbon Dioxide Level 26 MMOL/L (21-32) 26 MMOL/L (21-32) Anion Gap 8 mmol/L (5-15) 11 mmol/L (5-15) Blood Urea Nitrogen 53 mg/dL (7-18) 51 mg/dL (7-18) Creatinine 1.2 MG/DL (0.55-1.30) 1.2 MG/DL (0.55-1.30) Estimat Glomerular Filtration Rate mL/min (>60) mL/min (>60) Glucose Level 102 MG/DL (74-106) 143 MG/DL (74-106) Calcium Level 8.6 MG/DL (8.5-10.1) 8.9 MG/DL (8.5-10.1) Phosphorus Level 4.0 MG/DL (2.5-4.9) 3.8 MG/DL (2.5-4.9) Magnesium Level 1.9 MG/DL (1.8-2.4) 2.1 MG/DL (1.8-2.4) Ferritin 333 NG/ML (8-388) Total Bilirubin 0.5 MG/DL (0.2-1.0) 0.5 MG/DL (0.2-1.0) Aspartate Amino Transf (AST/SGOT) 22 U/L (15-37) 20 U/L (15-37) Alanine Aminotransferase (ALT/SGPT) 12 U/L (12-78) 8 U/L (12-78) Alkaline Phosphatase 94 U/L (46-116) 87 U/L (46-116) Pro-B-Type Natriuretic Peptide > 06275 pg/mL (0-125) Total Protein 6.8 G/DL (6.4-8.2) 6.8 G/DL (6.4-8.2) Albumin 1.8 G/DL (3.4-5.0) 1.7 G/DL (3.4-5.0) Globulin 5.0 g/dL 5.1 g/dL Albumin/Globulin Ratio 0.4 (1.0-2.7) 0.3 (1.0-2.7) Test 06/07/19 07:40 Arterial Blood pH 7.427 (7.350-7.450) Arterial Blood Partial Pressure CO2 38.2 mmHg (35.0-45.0) Arterial Blood Partial Pressure O2 109.3 mmHg (75.0-100.0) Arterial Blood HCO3 24.6 mmol/L (22.0-26.0) Arterial Blood Oxygen Saturation 97.8 % (95-100) Arterial Blood Base Excess 0.3 (-2-2) Marlo Test Positive Height (Feet): 5 Height (Inches): 4.00 Weight (Pounds): 196 Steven Norton MD Jun 07, 2019 10:43
--- NOTE | 2019-06-07 10:46 | Pulmonolgy Critical Care Note ---
Critical Care - Asmt/Plan Problems: (1) Acute and chronic respiratory failure (2) Nosocomial pneumonia (3) Acute metabolic encephalopathy (4) Anemia in chronic kidney disease (CKD) (5) Renal failure (ARF), acute on chronic (6) NSTEMI (non-ST elevated myocardial infarction) (7) G tube feedings (8) History of CVA (cerebrovascular accident) (9) CAD (coronary artery disease) (10) Right hemiplegia (11) Diabetes mellitus (12) Hypertensive heart disease Respiratory: monitor respiratory rate, adjust FIO2, CXR Cardiac: continue to monitor HR/BP Renal: F/U I&O, keep IV fluid, check electrolytes Infectious Disease: continue antibiotics Gastrointestinal: continue feedings/current rate Endocrine: monitor blood sugar, check HgA1C, continue sliding scale insulin Hematologic: transfuse if hgb<8.5 Neurologic: PRN Ativan, keep patient comfortable Affect: PRN ativan Prophylaxis: Protonix Disposition: keep in ICU Notes Reviewed: cardio Discussed with: nurses, consultants, rn case managementwastewater manager - Objective Last 24 Hour Vital Signs Date Time Temp Pulse Resp B/P (MAP) Pulse Ox O2 Delivery O2 Flow Rate FiO2 06/07/19 08:59 81 16 30 06/07/19 08:21 75 154/90 06/07/19 08:11 30 06/07/19 08:00 98.6 75 16 154/71 (98) 100 06/07/19 08:00 Mechanical Ventilator 06/07/19 08:00 73 06/07/19 08:00 40 06/07/19 07:57 30 06/07/19 07:15 64 16 40 06/07/19 05:18 76 18 40 06/07/19 04:00 Mechanical Ventilator 06/07/19 04:00 98.1 76 16 175/83 (113) 100 06/07/19 04:00 40 06/07/19 03:34 75 06/07/19 02:58 80 17 40 06/07/19 01:26 72 16 40 06/07/19 00:00 98.2 65 16 168/84 (112) 100 06/07/19 00:00 Mechanical Ventilator 06/07/19 00:00 40 06/06/19 23:32 70 06/06/19 23:30 69 18 40 06/06/19 21:15 64 18 40 06/06/19 20:52 69 172/81 06/06/19 20:00 97.7 69 16 172/81 (111) 100 06/06/19 20:00 Mechanical Ventilator 06/06/19 20:00 40 06/06/19 19:50 68 18 40 06/06/19 19:48 65 06/06/19 17:12 78 16 40 06/06/19 16:00 40 06/06/19 16:00 Mechanical Ventilator 06/06/19 16:00 80 06/06/19 16:00 78 16 155/82 (106) 100 06/06/19 14:40 76 16 40 06/06/19 13:16 72 16 151/80 (103) 98 06/06/19 13:00 72 16 152/82 (105) 97 06/06/19 12:40 83 17 40 06/06/19 12:00 98.6 75 16 152/72 (98) 98 06/06/19 12:00 40 06/06/19 12:00 75 06/06/19 12:00 Mechanical Ventilator 06/06/19 11:22 69 16 40 06/06/19 11:00 67 16 149/89 (109) 97 Status: awake Condition: critical HEENT: atraumatic Heart: HR/BP stable Abdomen: soft, non-tender Extremities: no C/C/E Critical Care - Subjective ROS Limited/Unobtainable: Yes Condition: critical EKG Rhythm: Sinus Rhythm FI02: 30 Vent Support Breath Rate: 16 Vent Support Mode: AC Vent Tidal Volume: 500 Sputum Amount: Small PEEP: 5.0 PIP: 33 Tube Feeding Amount: 30 I&O: Intake and Output 06/06/19 06/07/19 19:00 07:00 Intake Total 835.00 ml 585 ml Output Total 410 ml 500 ml Balance 425.00 ml 85 ml Free Water 200 ml 100 ml IV Total 275.00 ml 55 ml Tube Feeding 360 ml 330 ml Other 100 ml Output Urine Total 410 ml 500 ml # Bowel Movements 1 4 Labs: Laboratory Tests Test 06/07/19 02:00 06/07/19 03:20 06/07/19 07:40 Stool Occult Blood Pending White Blood Count 7.6 K/UL (4.8-10.8) Red Blood Count 2.86 M/UL (4.20-5.40) L Hemoglobin 8.3 G/DL (12.0-16.0) L Hematocrit 27.7 % (37.0-47.0) L Mean Corpuscular Volume 97 FL (80-99) Mean Corpuscular Hemoglobin 29.2 PG (27.0-31.0) Mean Corpuscular Hemoglobin Concent 30.1 G/DL (32.0-36.0) L Red Cell Distribution Width 22.7 % (11.6-14.8) H Platelet Count 155 K/UL (150-450) Mean Platelet Volume 6.9 FL (6.5-10.1) Neutrophils (%) (Auto) 61.4 % (45.0-75.0) Lymphocytes (%) (Auto) 28.4 % (20.0-45.0) Monocytes (%) (Auto) 5.5 % (1.0-10.0) Eosinophils (%) (Auto) 3.5 % (0.0-3.0) H Basophils (%) (Auto) 1.2 % (0.0-2.0) Sodium Level 149 MMOL/L (136-145) H Potassium Level 3.5 MMOL/L (3.5-5.1) Chloride Level 112 MMOL/L (98-107) H Carbon Dioxide Level 26 MMOL/L (21-32) Anion Gap 11 mmol/L (5-15) Blood Urea Nitrogen 51 mg/dL (7-18) H Creatinine 1.2 MG/DL (0.55-1.30) Estimat Glomerular Filtration Rate mL/min (>60) Glucose Level 143 MG/DL (74-106) H Calcium Level 8.9 MG/DL (8.5-10.1) Phosphorus Level 3.8 MG/DL (2.5-4.9) Magnesium Level 2.1 MG/DL (1.8-2.4) Total Bilirubin 0.5 MG/DL (0.2-1.0) Aspartate Amino Transf (AST/SGOT) 20 U/L (15-37) Alanine Aminotransferase (ALT/SGPT) 8 U/L (12-78) L Alkaline Phosphatase 87 U/L (46-116) Total Protein 6.8 G/DL (6.4-8.2) Albumin 1.7 G/DL (3.4-5.0) L Globulin 5.1 g/dL Albumin/Globulin Ratio 0.3 (1.0-2.7) L Arterial Blood pH 7.427 (7.350-7.450) Arterial Blood Partial Pressure CO2 38.2 mmHg (35.0-45.0) Arterial Blood Partial Pressure O2 109.3 mmHg (75.0-100.0) H Arterial Blood HCO3 24.6 mmol/L (22.0-26.0) Arterial Blood Oxygen Saturation 97.8 % (95-100) Arterial Blood Base Excess 0.3 (-2-2) Marlo Test Positive Tony Springer MD Jun 07, 2019 10:46
[2019-06-07] MEDS ORDERED: Tubing Blood Filter IV ONE (10:50)
[2019-06-07] MEDS ORDERED: Tubing IV Secondary IV ONE (10:50)
[2019-06-07] MEDS ORDERED: NS 275ml ONE (10:50)
[2019-06-07] MEDS: Meropenem 1 GM in NS 55 ML IVPB SCH (11:37)
[2019-06-07 12:00] VITALS: BP 140/77
--- NOTE | 2019-06-07 12:33 | Infectious Diseases Prog Note ---
Assessment/Plan Assessment/Plan Assessment: Sepsis -likely 2ry to PNA- r/o bacteremia -06/04 CXR: Bilateral mixed interstitial and alveolar airspace opacities, slightly increased compared to the prior exam of 05/20/2019. Findings may be related to pulmonary edema and/or multifocal pneumonia. Clinical correlation/ follow-up recommended. Tracheostomy and gastrostomy tubes noted. 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 maltophila (S Levaquin, bactrim), MDR P stuartii HTN CVA with hemiplegia and is now not verbal CKD CAD Dm2 chronic resp failure s/p trach/vent dependant dysphagia s/p PEG PNA pHTN [facility] nonverbal SNF resident Plan: -Continue empiric IV Vancomycin #4 and Meropenem #3 -cont empiric Levaquin #3 given prior S. maltophila in sputum cx -06/05 SP Zosyn #2 -05/20 SP Zosyn #3 -05/18 SP IV Vancomycin #3 -04/28/19 SP Cefepime #6 -04/22 SP Meropenem #5 -04/20 SP Vancomycin #8 - 04/18/19 S/P Cefepime #6 -f/u cx -Monitor CBC/CMP, temperatures -trach/peg/ICU care -aspiration precautions -f.u repeat Bcx Thank you for this consultation. Will continue to follow along with you. Discussed with RN. Subjective Allergies: Coded Allergies: No Known Allergies (Unverified , 04/12/19) Objective Vital Signs Last 24 Hour Vital Signs Date Time Temp Pulse Resp B/P (MAP) Pulse Ox O2 Delivery O2 Flow Rate FiO2 06/07/19 12:00 97.6 76 16 140/77 (98) 100 06/07/19 12:00 Mechanical Ventilator 06/07/19 12:00 30 06/07/19 10:39 67 16 30 06/07/19 08:59 81 16 30 06/07/19 08:21 75 154/90 06/07/19 08:11 30 06/07/19 08:00 98.6 75 16 154/71 (98) 100 06/07/19 08:00 Mechanical Ventilator 06/07/19 08:00 73 06/07/19 08:00 40 06/07/19 07:57 30 06/07/19 07:15 64 16 40 06/07/19 05:18 76 18 40 06/07/19 04:00 Mechanical Ventilator 06/07/19 04:00 98.1 76 16 175/83 (113) 100 06/07/19 04:00 40 06/07/19 03:34 75 06/07/19 02:58 80 17 40 06/07/19 01:26 72 16 40 06/07/19 00:00 98.2 65 16 168/84 (112) 100 06/07/19 00:00 Mechanical Ventilator 06/07/19 00:00 40 06/06/19 23:32 70 06/06/19 23:30 69 18 40 06/06/19 21:15 64 18 40 06/06/19 20:52 69 172/81 06/06/19 20:00 97.7 69 16 172/81 (111) 100 06/06/19 20:00 Mechanical Ventilator 06/06/19 20:00 40 06/06/19 19:50 68 18 40 06/06/19 19:48 65 06/06/19 17:12 78 16 40 06/06/19 16:00 40 06/06/19 16:00 Mechanical Ventilator 06/06/19 16:00 80 06/06/19 16:00 78 16 155/82 (106) 100 06/06/19 14:40 76 16 40 06/06/19 13:16 72 16 151/80 (103) 98 06/06/19 13:00 72 16 152/82 (105) 97 06/06/19 12:40 83 17 40 Height (Feet): 5 Height (Inches): 4.00 Weight (Pounds): 196 Objective GENERAL: Trach, vent, altered, lethargic in bed, nonverbal. CARDIOVASCULAR: No murmurs. LUNGS: Poor air exchange. ABDOMEN: Bowel sounds distant. EXTREMITIES: No cyanosis, clubbing, or edema. NEUROLOGIC: The patient is flaccid in bed, not really following directions. Laboratory Tests Test 06/07/19 02:00 06/07/19 03:20 06/07/19 07:40 06/07/19 12:10 Stool Occult Blood Positive (NEGATIVE) White Blood Count 7.6 K/UL (4.8-10.8) Red Blood Count 2.86 M/UL (4.20-5.40) L Hemoglobin 8.3 G/DL (12.0-16.0) L Hematocrit 27.7 % (37.0-47.0) L Mean Corpuscular Volume 97 FL (80-99) Mean Corpuscular Hemoglobin 29.2 PG (27.0-31.0) Mean Corpuscular Hemoglobin Concent 30.1 G/DL (32.0-36.0) L Red Cell Distribution Width 22.7 % (11.6-14.8) H Platelet Count 155 K/UL (150-450) Mean Platelet Volume 6.9 FL (6.5-10.1) Neutrophils (%) (Auto) 61.4 % (45.0-75.0) Lymphocytes (%) (Auto) 28.4 % (20.0-45.0) Monocytes (%) (Auto) 5.5 % (1.0-10.0) Eosinophils (%) (Auto) 3.5 % (0.0-3.0) H Basophils (%) (Auto) 1.2 % (0.0-2.0) Sodium Level 149 MMOL/L (136-145) H Potassium Level 3.5 MMOL/L (3.5-5.1) Chloride Level 112 MMOL/L (98-107) H Carbon Dioxide Level 26 MMOL/L (21-32) Anion Gap 11 mmol/L (5-15) Blood Urea Nitrogen 51 mg/dL (7-18) H Creatinine 1.2 MG/DL (0.55-1.30) Estimat Glomerular Filtration Rate mL/min (>60) Glucose Level 143 MG/DL (74-106) H Calcium Level 8.9 MG/DL (8.5-10.1) Phosphorus Level 3.8 MG/DL (2.5-4.9) Magnesium Level 2.1 MG/DL (1.8-2.4) Total Bilirubin 0.5 MG/DL (0.2-1.0) Aspartate Amino Transf (AST/SGOT) 20 U/L (15-37) Alanine Aminotransferase (ALT/SGPT) 8 U/L (12-78) L Alkaline Phosphatase 87 U/L (46-116) Total Protein 6.8 G/DL (6.4-8.2) Albumin 1.7 G/DL (3.4-5.0) L Globulin 5.1 g/dL Albumin/Globulin Ratio 0.3 (1.0-2.7) L Arterial Blood pH 7.427 (7.350-7.450) Arterial Blood Partial Pressure CO2 38.2 mmHg (35.0-45.0) Arterial Blood Partial Pressure O2 109.3 mmHg (75.0-100.0) H Arterial Blood HCO3 24.6 mmol/L (22.0-26.0) Arterial Blood Oxygen Saturation 97.8 % (95-100) Arterial Blood Base Excess 0.3 (-2-2) Marlo Test Positive Vancomycin Level Trough Pending Current Medications Medications (Trade) Dose Ordered Sig/Kenisha Route PRN Reason Start Time Stop Time Status Last Admin Dose Admin Acetaminophen (Tylenol) 650 mg Q4H PRN ORAL FEVER (temp>100.5 F) 06/06/19 13:30 07/04/19 13:29 Albuterol/ Ipratropium (Albuterol/ Ipratropium) 3 ml Q4H PRN HHN Shortness of Breath 06/06/19 13:30 06/09/19 13:29 Clopidogrel Bisulfate (Plavix) 75 mg DAILY ORAL 06/07/19 09:00 07/05/19 08:59 06/07/19 08:21 Dextrose (Dextrose 50%) 25 ml Q30M PRN IV Hypoglycemia 06/06/19 13:30 07/04/19 15:21 Dextrose (Dextrose 50%) 50 ml Q30M PRN IV hypoglycemia 06/06/19 13:30 07/04/19 15:29 Furosemide (Lasix) 40 mg EVERY 12 HOURS IV 06/06/19 21:00 07/04/19 20:59 06/07/19 08:21 Heparin Sodium (Porcine) (Heparin 5000 units/ml) 5,000 units EVERY 12 HOURS SUBQ 06/06/19 21:00 07/04/19 20:59 Levofloxacin (Levaquin) 750 mg EVERY OTHER DAY GT 06/07/19 09:00 06/12/19 12:59 06/07/19 08:20 Lorazepam (Ativan 2mg/ml 1ml) 2 mg Q2H PRN IV For Anxiety 06/06/19 13:30 06/11/19 13:29 Meropenem 1 gm/ Sodium Chloride 55 ml @ 110 mls/hr Q12HR@0000,1200 IVPB 06/07/19 00:00 06/10/19 11:59 06/07/19 11:37 Metoprolol Tartrate (Lopressor) 25 mg EVERY 12 HOURS ORAL 06/06/19 21:00 07/04/19 20:59 06/07/19 08:21 Morphine Sulfate (Morphine Sulfate) 4 mg Q4H PRN IVP Severe Pain (Pain Scale 7-10) 06/06/19 13:30 06/11/19 13:29 Ondansetron HCl (Zofran) 4 mg Q6H PRN IVP Nausea & Vomiting 06/06/19 13:30 07/04/19 13:29 Pantoprazole (Protonix) 40 mg DAILY IV 06/07/19 09:00 07/05/19 08:59 06/07/19 08:21 Polyethylene Glycol (Miralax) 17 gm DAILYPRN PRN ORAL Constipation 06/06/19 13:30 07/04/19 13:29 Potassium Chloride (K-Dur) 20 meq TWICE A DAY GT 06/07/19 18:00 07/07/19 17:59 Vancomycin HCl (Vanco rx to dose) 1 ea DAILY PRN MISC PER RX PROTOCOL 06/06/19 13:30 07/06/19 13:29 Vancomycin HCl 1 gm/Dextrose 275 ml @ 183.3 mls/ hr Q24H IVPB 06/06/19 13:00 06/11/19 12:59 06/06/19 13:30 Cora Baer M.D. Jun 07, 2019 12:33
--- NOTE | 2019-06-07 12:36 | NUR ---
[employer]PER[employer] 79 YO FEMALE BIBA FROM [place] CONV TO ER CC RESP DISTRESS SI: RESP FAILURE TRACH/VENT DEPENDENT, SEVERE SEPSIS T. 100.5 HR 89 RR 22 B/P 145/85 AC 16 TV 500 FIO2 505 PEEP 5 PH 7.38 PCO2 36.5 PO2 72.0 HCO3 21.1 O2 SAT 93.3 WBC 17.7 NA 134 LACTID ACID 3.00 ALK PHOS 196 TROP 0.141 BNP 74430 UA+PROTEIN,BLOOD UROBILINOGEN,LEUKOCYTE ESTERASE,rbc,wbc CXR=Bilateral mixed interstitial and alveolar airspace opacities, slightly increased compared to the prior exam of 05/20/2019. Findings may be related to pulmonary edema and/or multifocal pneumonia. Clinical correlation/follow-up recommended. IS: IV BOLUS NS X 2 LITERS ZOSYN IV VANCO IV ADMITTED TO STEP DOWN STATUS STEP DOWN STATUS DCP RETURN TO [place]
[2019-06-07] MEDS: Vancomycin 1 GM in D5W 275 ML IVPB SCH (12:55)
--- NOTE | 2019-06-07 13:31 | NUR ---
NURSE NOTES: Consent obtained from son, Cezar Sage who is at bedside for EGD w/possible biopsy with Dr. Gentile planned for Friday.
--- NOTE | 2019-06-07 13:41 | Cardiology Report ---
APPROVED REPORT EXAM: Two-dimensional and M-mode echocardiogram with Doppler and color Doppler. INDICATION Other M-Mode DIMENSIONS IVSd1.3 (0.7-1.1cm)Left Atrium (MM)4.5 (1.6-4.0cm) LVDd3.5 (3.5-5.6cm)Aortic Root2.3 (2.0-3.7cm) PWd1.2 (0.7-1.1cm)Aortic Cusp Exc.0.8 (1.5-2.0cm) LVDs2.2 (2.5-4.0cm) PWs1.6 cm Normal left ventricular chamber size.normal systolic function and wall motion. Left ventricular ejection fraction estimated to be 55 %. Mild left ventricular hypertrophy. Possible large pleural effusion. Left atrial size at upper limits of normal. Right cardiac chamber sizes are within normal limits. Aortic valve calcification with decreased cusp excursion c/w severe aortic stenosis. Heavily thickened mitral valve leaflets with reduced excursion. Heavy mitral annulus and aortic root calcification. Pulmonic valve not well visualized. Normal tricuspid valve structure. IVC is normal in size without physiological collapse. A color flow and spectral Doppler study was performed and revealed: Mild aortic regurgitation. Peak aortic valve gradient of 115 mmHg and a mean of 76 mmHg. Aortic valve area 0.4 cm2 calculated by continuity equation. Moderate mitral regurgitation. Mitral inflow velocities indicates possible pseudo normalization pattern implying significant left ventricular diastolic dysfunction (Grade II). Moderate tricuspid regurgitation. Tricuspid systolic velocities suggests peak right ventricular systolic pressure of 69 mmHg, consistent with severe pulmonary hypertension. Mild to moderate pulmonic regurgitation present.
--- NOTE | 2019-06-07 13:58 | Diagnostic Imaging Report ---
Indication: Dyspnea Comparison: 06/06/2019 A single view chest radiograph was obtained. Findings: Patchy airspace opacities noted throughout the lungs bilaterally. Tracheostomy is present. Cardiomegaly is noted. Bones are osteopenic. IMPRESSION: Bilateral infiltrates versus pulmonary edema. No interval change
[2019-06-07 16:00] VITALS: BP 154/94
--- NOTE | 2019-06-07 19:14 | NUR ---
HAND-OFF: Report given to HORTENCIA Sloan.
--- NOTE | 2019-06-07 19:15 | NUR ---
NURSE NOTES: Received patient from Emili BURNETT, Patient is awake and oriented x1. IV site is Left Upper chest 22g, patent and intact. G-tube is patent and intact receiving Jevity 1.2 @ 30cc/hr, patient is tolerating well, no residuals. Purewick is patent and draining. Bed is locked, placed in lowest position, side rails up x2, bed alarm on, call light within reach. Will continue to monitor. Addendum: 06/07/19 at 1927 by Luther Chino RN Patient is receiving oxygen via trach to vent: Portex 8, AC 16, TV 600, FiO2 35%, PEEP 5.
[2019-06-07 20:00] VITALS: BP 162/95
[2019-06-08] VITALS: BP 165/86
[2019-06-08] MEDS: Meropenem 1 GM in NS 55 ML IVPB SCH ×2 (00:03→12:11)
[2019-06-08 04:00] VITALS: BP 165/92
[2019-06-08 04:31] LABS: BASOPHILS % (AUTO) 1.1 % (0.0-2.0); EOSINOPHILS % (AUTO) 3.4 % (0.0-3.0); HEMATOCRIT 27.1 % (37.0-47.0); HEMOGLOBIN 8.2 G/DL (12.0-16.0); LYMPHOCYTES % (AUTO) 35.7 % (20.0-45.0); MEAN CORPUSCULAR VOLUME 98 FL (80-99); MONOCYTES % (AUTO) 6.6 % (1.0-10.0); NEUTROPHILS % (AUTO) 53.1 % (45.0-75.0); PLATELET COUNT 181 K/UL (150-450); RED BLOOD COUNT 2.78 M/UL (4.20-5.40); RED CELL DISTRIBUTION WIDTH 22.4 % (11.6-14.8); WHITE BLOOD COUNT 7.4 K/UL (4.8-10.8)
[2019-06-08 04:41] LABS: ANION GAP 9 mmol/L (5-15); BLOOD UREA NITROGEN 47 mg/dL (7-18); CALCIUM 8.7 MG/DL (8.5-10.1); CARBON DIOXIDE 27 MMOL/L (21-32); CHLORIDE 113 MMOL/L (98-107); CREATININE 1.2 MG/DL (0.55-1.30); POTASSIUM 3.7 MMOL/L (3.5-5.1); SODIUM 149 MMOL/L (136-145)
--- NOTE | 2019-06-08 07:06 | NUR ---
HAND-OFF: Report given to Radha BURNETT. Patient in stable condition.
--- NOTE | 2019-06-08 07:10 | NUR ---
NURSE NOTES: Received bedside report from Paxton RN. Pt. in bed, sleeping but response to tactile stimuli. Pt. non-verbal. No sign of distress. On mech. vent with setting AC16/VT500/FiO2 of 30%/P5. No grimacing noted. On GTF running Jevity 1.2 @ 30cc/hr cont. Tolerating well. HOB elevated at all times. IV site in placed at left upper chest #22g. SL. Bed in low position, locked. Call light within reach. Will cont. to monitor.
--- NOTE | 2019-06-08 07:12 | NUR ---
RESPIRATORY NOTE: received pt on current vent settings. pt is trach with shiley 8, midline and patent and secured via trach tie. no resp distress noted at this time. alarms are set and audible with ambu bag at bedside. will cont to monitor.
[2019-06-08 08:00] VITALS: BP 167/89
[2019-06-08] MEDS: Pantoprazole Inj IV SCH (08:59)
[2019-06-08] MEDS: Metoprolol 25mg tab ORAL SCH ×2 (09:00→20:25)
[2019-06-08] MEDS: Heparin 5000 units/ml inj SUBQ SCH ×2 (09:00→20:24)
--- NOTE | 2019-06-08 10:33 | Pulmonolgy Critical Care Note ---
Critical Care - Asmt/Plan Problems: (1) Acute and chronic respiratory failure (2) Nosocomial pneumonia (3) Acute metabolic encephalopathy (4) Anemia in chronic kidney disease (CKD) (5) Renal failure (ARF), acute on chronic (6) NSTEMI (non-ST elevated myocardial infarction) (7) G tube feedings (8) History of CVA (cerebrovascular accident) (9) CAD (coronary artery disease) (10) Right hemiplegia (11) Diabetes mellitus (12) Hypertensive heart disease Respiratory: monitor respiratory rate, adjust FIO2, CXR Cardiac: continue to monitor HR/BP Renal: F/U I&O Infectious Disease: check cultures, continue antibiotics Gastrointestinal: continue feedings/current rate Endocrine: monitor blood sugar Hematologic: monitor H/H, transfuse if hgb<8.5 Neurologic: PRN Ativan, keep patient comfortable Affect: PRN ativan Disposition: keep in ICU Notes Reviewed: supervisor hanging and trimming, renal Discussed with: nurses, consultants, dependency case managercostume shop manager - Objective Last 24 Hour Vital Signs Date Time Temp Pulse Resp B/P (MAP) Pulse Ox O2 Delivery O2 Flow Rate FiO2 06/08/19 09:08 71 19 30 06/08/19 09:00 76 167/89 06/08/19 08:00 99.5 76 20 167/89 (115) 98 06/08/19 07:54 69 06/08/19 07:11 71 17 30 06/08/19 05:16 74 16 30 06/08/19 04:00 30 06/08/19 04:00 Mechanical Ventilator 06/08/19 04:00 97.3 70 17 165/92 (116) 96 06/08/19 03:34 79 06/08/19 03:20 60 16 30 06/08/19 01:09 70 16 30 06/08/19 00:00 98.4 72 20 165/86 (112) 97 06/08/19 00:00 Mechanical Ventilator 06/08/19 00:00 70 06/07/19 22:30 70 17 30 06/07/19 21:03 72 16 30 06/07/19 20:31 81 162/95 06/07/19 20:00 98.2 75 17 162/95 (117) 97 06/07/19 20:00 76 06/07/19 20:00 Mechanical Ventilator 8/12/19 20:00 30 06/07/19 18:30 78 17 30 06/07/19 17:09 74 16 30 06/07/19 16:00 97.5 79 16 154/94 (114) 95 06/07/19 16:00 30 06/07/19 16:00 79 06/07/19 16:00 Mechanical Ventilator 06/07/19 14:37 67 16 30 06/07/19 13:20 65 16 30 06/07/19 12:00 73 06/07/19 12:00 97.6 76 16 140/77 (98) 100 06/07/19 12:00 Mechanical Ventilator 06/07/19 12:00 30 06/07/19 10:39 67 16 30 Status: awake Condition: critical HEENT: atraumatic Lungs: clear Heart: HR/BP stable Abdomen: soft, non-tender, feeding tube Extremities: edema Micro: Microbiology Date/Time Source Procedure Growth Status 06/06/19 11:55 Blood Blood Culture - Preliminary NO GROWTH AFTER 24 HOURS Resulted 06/06/19 11:45 Blood Blood Culture - Preliminary NO GROWTH AFTER 24 HOURS Resulted 06/07/19 00:15 Sputum Gram Stain - Final Resulted 06/07/19 00:15 Sputum Sputum Culture Pending Resulted Critical Care - Subjective ROS Limited/Unobtainable: Yes Condition: critical EKG Rhythm: Sinus Rhythm FI02: 30 Vent Support Breath Rate: 16 Vent Support Mode: AC Vent Tidal Volume: 500 Sputum Amount: Small PEEP: 5.0 PIP: 37 Tube Feeding Amount: 30 I&O: Intake and Output 06/07/19 06/08/19 19:00 07:00 Intake Total 990 ml 1021.6 ml Output Total 850 ml Balance 140 ml 1021.6 ml Free Water 600 ml 300 ml IV Total 421.6 ml Tube Feeding 390 ml 300 ml Output Urine Total 850 ml # Bowel Movements 2 1 CXR: bilateral infiltrate Labs: Laboratory Tests Test 06/07/19 12:10 06/08/19 03:10 Vancomycin Level Trough 17.2 ug/mL (5.0-12.0) H White Blood Count 7.4 K/UL (4.8-10.8) Red Blood Count 2.78 M/UL (4.20-5.40) L Hemoglobin 8.2 G/DL (12.0-16.0) L Hematocrit 27.1 % (37.0-47.0) L Mean Corpuscular Volume 98 FL (80-99) Mean Corpuscular Hemoglobin 29.6 PG (27.0-31.0) Mean Corpuscular Hemoglobin Concent 30.3 G/DL (32.0-36.0) L Red Cell Distribution Width 22.4 % (11.6-14.8) H Platelet Count 181 K/UL (150-450) Mean Platelet Volume 7.0 FL (6.5-10.1) Neutrophils (%) (Auto) 53.1 % (45.0-75.0) Lymphocytes (%) (Auto) 35.7 % (20.0-45.0) Monocytes (%) (Auto) 6.6 % (1.0-10.0) Eosinophils (%) (Auto) 3.4 % (0.0-3.0) H Basophils (%) (Auto) 1.1 % (0.0-2.0) Sodium Level 149 MMOL/L (136-145) H Potassium Level 3.7 MMOL/L (3.5-5.1) Chloride Level 113 MMOL/L (98-107) H Carbon Dioxide Level 27 MMOL/L (21-32) Anion Gap 9 mmol/L (5-15) Blood Urea Nitrogen 47 mg/dL (7-18) H Creatinine 1.2 MG/DL (0.55-1.30) Estimat Glomerular Filtration Rate mL/min (>60) Glucose Level 190 MG/DL (74-106) H Calcium Level 8.7 MG/DL (8.5-10.1) Tony Springer MD Jun 08, 2019 10:33
--- NOTE | 2019-06-08 10:40 | GI Progress Note ---
Assessment/Plan Problems: (1) GI bleed ICD Codes: K92.2 - Gastrointestinal hemorrhage, unspecified SNOMED: 86612161 (2) Black tarry stools ICD Codes: K92.1 - Melena SNOMED: 375723082 (3) Severe sepsis ICD Codes: A41.9 - Sepsis, unspecified organism; R65.20 - Severe sepsis without septic shock SNOMED: 83120327 (4) G tube feedings ICD Codes: Z93.1 - Gastrostomy status SNOMED: 175181765, 164073136, 797593825 (5) Anemia in chronic kidney disease (CKD) ICD Codes: N18.9 - Chronic kidney disease, unspecified; D63.1 - Anemia in chronic kidney disease SNOMED: 526073731 Qualifiers: Qualified Codes: N18.2 - Chronic kidney disease, stage 2 (mild); D63.1 - Anemia in chronic kidney disease Status: unchanged Status Narrative Discussed with Dr. Gentile. Assessment/Plan OB stool positive Plavix discontinued, EGD scheduled for tomorrow. - NPO @ [place]. - plavix to be restarted by primary after procedure. PPI twice daily As needed transfusions Antibiotics G-tube feedings per RD The patient was seen and examined at bedside and all new and available data was reviewed in the patients chart. I agree with the above findings, impression and plan. (Patient seen earlier today. Signature stamp does not reflect patient encounter time.). - Darron Gentile MD Subjective Subjective limited Objective Last 24 Hour Vital Signs Date Time Temp Pulse Resp B/P (MAP) Pulse Ox O2 Delivery O2 Flow Rate FiO2 06/08/19 09:08 71 19 30 06/08/19 09:00 76 167/89 06/08/19 08:00 99.5 76 20 167/89 (115) 98 06/08/19 07:54 69 06/08/19 07:11 71 17 30 06/08/19 05:16 74 16 30 06/08/19 04:00 30 06/08/19 04:00 Mechanical Ventilator 06/08/19 04:00 97.3 70 17 165/92 (116) 96 06/08/19 03:34 79 06/08/19 03:20 60 16 30 06/08/19 01:09 70 16 30 06/08/19 00:00 98.4 72 20 165/86 (112) 97 06/08/19 00:00 Mechanical Ventilator 06/08/19 00:00 70 06/07/19 22:30 70 17 30 06/07/19 21:03 72 16 30 06/07/19 20:31 81 162/95 06/07/19 20:00 98.2 75 17 162/95 (117) 97 06/07/19 20:00 76 06/07/19 20:00 Mechanical Ventilator 06/07/19 20:00 30 06/07/19 18:30 78 17 30 06/07/19 17:09 74 16 30 06/07/19 16:00 97.5 79 16 154/94 (114) 95 06/07/19 16:00 30 06/07/19 16:00 79 06/07/19 16:00 Mechanical Ventilator 06/07/19 14:37 67 16 30 06/07/19 13:20 65 16 30 06/07/19 12:00 73 06/07/19 12:00 97.6 76 16 140/77 (98) 100 06/07/19 12:00 Mechanical Ventilator 06/07/19 12:00 30 Intake and Output 06/07/19 06/08/19 19:00 07:00 Intake Total 990 ml 1021.6 ml Output Total 850 ml Balance 140 ml 1021.6 ml Free Water 600 ml 300 ml IV Total 421.6 ml Tube Feeding 390 ml 300 ml Output Urine Total 850 ml # Bowel Movements 2 1 Laboratory Tests Test 06/07/19 12:10 06/08/19 03:10 Vancomycin Level Trough 17.2 ug/mL (5.0-12.0) H White Blood Count 7.4 K/UL (4.8-10.8) Red Blood Count 2.78 M/UL (4.20-5.40) L Hemoglobin 8.2 G/DL (12.0-16.0) L Hematocrit 27.1 % (37.0-47.0) L Mean Corpuscular Volume 98 FL (80-99) Mean Corpuscular Hemoglobin 29.6 PG (27.0-31.0) Mean Corpuscular Hemoglobin Concent 30.3 G/DL (32.0-36.0) L Red Cell Distribution Width 22.4 % (11.6-14.8) H Platelet Count 181 K/UL (150-450) Mean Platelet Volume 7.0 FL (6.5-10.1) Neutrophils (%) (Auto) 53.1 % (45.0-75.0) Lymphocytes (%) (Auto) 35.7 % (20.0-45.0) Monocytes (%) (Auto) 6.6 % (1.0-10.0) Eosinophils (%) (Auto) 3.4 % (0.0-3.0) H Basophils (%) (Auto) 1.1 % (0.0-2.0) Sodium Level 149 MMOL/L (136-145) H Potassium Level 3.7 MMOL/L (3.5-5.1) Chloride Level 113 MMOL/L (98-107) H Carbon Dioxide Level 27 MMOL/L (21-32) Anion Gap 9 mmol/L (5-15) Blood Urea Nitrogen 47 mg/dL (7-18) H Creatinine 1.2 MG/DL (0.55-1.30) Estimat Glomerular Filtration Rate mL/min (>60) Glucose Level 190 MG/DL (74-106) H Calcium Level 8.7 MG/DL (8.5-10.1) Height (Feet): 5 Height (Inches): 4.00 Weight (Pounds): 196 General Appearance: no apparent distress, alert Cardiovascular: normal rate Respiratory/Chest: no respiratory distress Abdominal Exam: normal bowel sounds, non tender, soft Extremities: non-tender Aron Torres NP Jun 08, 2019 10:40
[2019-06-08 12:00] VITALS: BP 163/93
--- NOTE | 2019-06-08 12:03 | NUR ---
RD ASSESSMENT & RECOMMENDATIONS SEE CARE ACTIVITY FOR COMPLETE ASSESSMENT DAILY ESTIMATED NEEDS: Needs based on Critical care, CHF, DM/ 56.8kg abw 22-28 kcals/kg 5457-6189 total kcals 1.2-2 g protein/kg 68-114 g total protein 20-22 mL/kg 6096-0183 total fluid mLs NUTRITION DIAGNOSIS: * Swallowing difficulty R/T dysphagia, h/o CVA, respiratory status as evidenced by pt trach/vent dep, PEG dep. * Altered nutrition related lab values R/T CHF, diabetes as evidenced by BNP >27372, A1C of 6.6 on 05/18, elev BGs (190 143). CURRENT TF:Jevity 1.2 @ 30ml/hr x 24 hrs ENTERAL NUTRITION RECOMMENDATIONS: Glucerna 1.5 @ 40ml/hr x 24 hrs to provide 960ml, 1440kcal, 79g prot, 729ml free water * Rec TF change to Glucenra 1.5: DM dx, for less free fluids (edematous, CHF dx w/ BNP >82079) * Initiate Glucerna 1.5 @ 20ml/hr x 6 hrs, advance 10ml q 4-6 hrs as tolerated to goal rate. * HOB over 30 degrees/ water flush per MD ADDITIONAL RECOMMENDATIONS: * Calibrated bedscale wt for accurate CBW * Monitor lytes daily, replete as needed * NISS for BG control- DM dx, BGs elev * TF REC ABOVE
--- NOTE | 2019-06-08 12:45 | Infectious Diseases Prog Note ---
Assessment/Plan Assessment/Plan Assessment: Sepsis -likely 2ry to PNA -06/07 CXR: Bilateral infiltrates versus pulmonary edema. No interval change -06/04 CXR: Bilateral mixed interstitial and alveolar airspace opacities, slightly increased compared to the prior exam of 05/20/2019. Findings may be related to pulmonary edema and/or multifocal pneumonia. Clinical correlation/ follow-up recommended. Tracheostomy and gastrostomy tubes noted. -sp cx p -u/a no pyuria Gram positive bacteremia- likely contaminant -06/04 Bcvx 10/30 Bacillus sp (not anthracis); 06/06 Bcx NTD Low grade fever, SP Leukocytosis, SP Hx of PNA -05/18 sp cx S. maltophila (S Levaquin, bactrim), MDR P stuartii HTN CVA with hemiplegia and is now not verbal CKD CAD Dm2 chronic resp failure s/p trach/vent dependant dysphagia s/p PEG PNA pHTN [facility] nonverbal [facility] resident Plan: -Continue empiric IV Vancomycin #5 and Meropenem #4 -cont empiric Levaquin #4 given prior S. maltophila in sputum cx -06/05 SP Zosyn #2 -05/20 SP Zosyn #3 -05/18 SP IV Vancomycin #3 -04/28/19 SP Cefepime #6 -04/22 SP Meropenem #5 -04/20 SP Vancomycin #8 - 04/18/19 S/P Cefepime #6 -f/u cx -Monitor CBC/CMP, temperatures -trach/peg/ICU care -aspiration precautions -f.u repeat Bcx -GI f/u: plan for EGD tomorrow Thank you for this consultation. Will continue to follow along with you. Discussed with RN. Subjective Allergies: Coded Allergies: No Known Allergies (Unverified , 04/12/19) Subjective afebrile no leuokocytosis repeat Bcx NTD Objective Vital Signs Last 24 Hour Vital Signs Date Time Temp Pulse Resp B/P (MAP) Pulse Ox O2 Delivery O2 Flow Rate FiO2 06/08/19 12:34 65 16 30 06/08/19 12:00 Mechanical Ventilator 06/08/19 12:00 30 06/08/19 10:52 68 16 30 06/08/19 09:08 71 19 30 06/08/19 09:00 76 167/89 06/08/19 08:00 30 06/08/19 08:00 99.5 76 20 167/89 (115) 98 06/08/19 08:00 Mechanical Ventilator 06/08/19 07:54 69 06/08/19 07:11 71 17 30 06/08/19 05:16 74 16 30 06/08/19 04:00 30 06/08/19 04:00 Mechanical Ventilator 06/08/19 04:00 97.3 70 17 165/92 (116) 96 06/08/19 03:34 79 06/08/19 03:20 60 16 30 06/08/19 01:09 70 16 30 06/08/19 00:00 98.4 72 20 165/86 (112) 97 06/08/19 00:00 Mechanical Ventilator 06/08/19 00:00 70 06/07/19 22:30 70 17 30 06/07/19 21:03 72 16 30 06/07/19 20:31 81 162/95 06/07/19 20:00 98.2 75 17 162/95 (117) 97 06/07/19 20:00 76 06/07/19 20:00 Mechanical Ventilator 06/07/19 20:00 30 06/07/19 18:30 78 17 30 06/07/19 17:09 74 16 30 06/07/19 16:00 97.5 79 16 154/94 (114) 95 06/07/19 16:00 30 06/07/19 16:00 79 06/07/19 16:00 Mechanical Ventilator 06/07/19 14:37 67 16 30 06/07/19 13:20 65 16 30 Height (Feet): 5 Height (Inches): 4.00 Weight (Pounds): 196 Objective GENERAL: Trach, vent, altered, lethargic in bed, nonverbal. CARDIOVASCULAR: No murmurs. LUNGS: Poor air exchange. ABDOMEN: Bowel sounds distant. EXTREMITIES: No cyanosis, clubbing, or edema. NEUROLOGIC: The patient is flaccid in bed, not really following directions. Microbiology Date/Time Source Procedure Growth Status 06/06/19 11:55 Blood Blood Culture - Preliminary NO GROWTH AFTER 24 HOURS Resulted 06/06/19 11:45 Blood Blood Culture - Preliminary NO GROWTH AFTER 24 HOURS Resulted 06/07/19 00:15 Sputum Gram Stain - Final Resulted 06/07/19 00:15 Sputum Sputum Culture Pending Resulted Laboratory Tests Test 06/08/19 03:10 White Blood Count 7.4 K/UL (4.8-10.8) Red Blood Count 2.78 M/UL (4.20-5.40) L Hemoglobin 8.2 G/DL (12.0-16.0) L Hematocrit 27.1 % (37.0-47.0) L Mean Corpuscular Volume 98 FL (80-99) Mean Corpuscular Hemoglobin 29.6 PG (27.0-31.0) Mean Corpuscular Hemoglobin Concent 30.3 G/DL (32.0-36.0) L Red Cell Distribution Width 22.4 % (11.6-14.8) H Platelet Count 181 K/UL (150-450) Mean Platelet Volume 7.0 FL (6.5-10.1) Neutrophils (%) (Auto) 53.1 % (45.0-75.0) Lymphocytes (%) (Auto) 35.7 % (20.0-45.0) Monocytes (%) (Auto) 6.6 % (1.0-10.0) Eosinophils (%) (Auto) 3.4 % (0.0-3.0) H Basophils (%) (Auto) 1.1 % (0.0-2.0) Sodium Level 149 MMOL/L (136-145) H Potassium Level 3.7 MMOL/L (3.5-5.1) Chloride Level 113 MMOL/L (98-107) H Carbon Dioxide Level 27 MMOL/L (21-32) Anion Gap 9 mmol/L (5-15) Blood Urea Nitrogen 47 mg/dL (7-18) H Creatinine 1.2 MG/DL (0.55-1.30) Estimat Glomerular Filtration Rate mL/min (>60) Glucose Level 190 MG/DL (74-106) H Calcium Level 8.7 MG/DL (8.5-10.1) Current Medications Medications (Trade) Dose Ordered Sig/Kenisha Route PRN Reason Start Time Stop Time Status Last Admin Dose Admin Acetaminophen (Tylenol) 650 mg Q4H PRN ORAL FEVER (temp>100.5 F) 06/06/19 13:30 07/04/19 13:29 Albuterol/ Ipratropium (Albuterol/ Ipratropium) 3 ml Q4H PRN HHN Shortness of Breath 06/06/19 13:30 06/09/19 13:29 Dextrose (Dextrose 50%) 25 ml Q30M PRN IV Hypoglycemia 06/06/19 13:30 07/04/19 15:21 Dextrose (Dextrose 50%) 50 ml Q30M PRN IV hypoglycemia 06/06/19 13:30 07/04/19 15:29 Furosemide (Lasix) 40 mg EVERY 12 HOURS IV 06/06/19 21:00 07/04/19 20:59 06/08/19 09:00 Heparin Sodium (Porcine) (Heparin 5000 units/ml) 5,000 units EVERY 12 HOURS SUBQ 06/06/19 21:00 07/04/19 20:59 Levofloxacin (Levaquin) 750 mg EVERY OTHER DAY GT 06/07/19 09:00 06/12/19 12:59 06/07/19 08:20 Lorazepam (Ativan 2mg/ml 1ml) 2 mg Q2H PRN IV For Anxiety 06/06/19 13:30 06/11/19 13:29 Meropenem 1 gm/ Sodium Chloride 55 ml @ 110 mls/hr Q12HR@0000,1200 IVPB 06/07/19 00:00 06/10/19 11:59 06/08/19 12:11 Metoprolol Tartrate (Lopressor) 25 mg EVERY 12 HOURS ORAL 06/06/19 21:00 07/04/19 20:59 06/08/19 09:00 Morphine Sulfate (Morphine Sulfate) 4 mg Q4H PRN IVP Severe Pain (Pain Scale 7-10) 06/06/19 13:30 06/11/19 13:29 Ondansetron HCl (Zofran) 4 mg Q6H PRN IVP Nausea & Vomiting 06/06/19 13:30 07/04/19 13:29 Pantoprazole (Protonix) 40 mg DAILY IV 06/07/19 09:00 07/05/19 08:59 06/08/19 08:59 Polyethylene Glycol (Miralax) 17 gm DAILYPRN PRN ORAL Constipation 06/06/19 13:30 07/04/19 13:29 Potassium Chloride (K-Dur) 20 meq TWICE A DAY GT 06/07/19 18:00 07/07/19 17:59 06/08/19 09:00 Vancomycin HCl (Vanco rx to dose) 1 ea DAILY PRN MISC PER RX PROTOCOL 06/06/19 13:30 07/06/19 13:29 Vancomycin HCl 1 gm/Dextrose 275 ml @ 183.3 mls/ hr Q24H IVPB 06/06/19 13:00 06/11/19 12:59 06/07/19 12:55 Cora Baer M.D. Jun 08, 2019 12:45
--- NOTE | 2019-06-08 13:07 | NUR ---
CREOSOTING ENGINEERRESIDENCE LIFE COORDINATOR SI: RESP FAILURE TRACH/VENT DEPENDENT,SEPSIS,GI BLEED T. 99.3 HR 72 RR 21 B/P 163/93 AC 16 TV 500 FIO2 30% PEEP 5 STOOL OCCULT BLOOD=+ NA 149 IS: MEROPENEM IV VANCO IV LASIX IV LEVAQUIN GT EGD IN AM STEP DOWN STATUS
[2019-06-08] MEDS: Vancomycin 1 GM in D5W 275 ML IVPB SCH (13:39)
--- NOTE | 2019-06-08 14:29 | NUR ---
*-* INSURANCE *-* ALL CLINICALS AND REVIEWS HAVE BEEN FAXED TO: [facility] P:[phone] F: [phone] (FAX CLINICALS)
--- NOTE | 2019-06-08 15:10 | General Progress Note ---
Assessment/Plan Problem List: (1) Acute and chronic respiratory failure ICD Codes: J96.20 - Acute and chronic respiratory failure, unspecified whether with hypoxia or hypercapnia SNOMED: 48717064 (2) History of CVA (cerebrovascular accident) ICD Codes: Z86.73 - Personal history of transient ischemic attack (TIA), and cerebral infarction without residual deficits SNOMED: 004728949 (3) CAD (coronary artery disease) ICD Codes: I25.10 - Atherosclerotic heart disease of [place] coronary artery without angina pectoris SNOMED: 94372614 (4) Right hemiplegia ICD Codes: G81.91 - Hemiplegia, unspecified affecting right dominant side SNOMED: 470784289 (5) Diabetes mellitus ICD Codes: E11.9 - Type 2 diabetes mellitus without complications SNOMED: 40783241 (6) Hypertensive heart disease ICD Codes: I11.9 - Hypertensive heart disease without heart failure SNOMED: 68992215 (7) 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2 - Chronic kidney disease, stage 2 (mild); D63.1 - Anemia in chronic kidney disease (11) Severe sepsis ICD Codes: A41.9 - Sepsis, unspecified organism; R65.20 - Severe sepsis without septic shock SNOMED: 08224901 Status: unchanged Assessment/Plan: vent abx bp bs control cbc bmp am Subjective Constitutional: Reports: weakness Allergies: Coded Allergies: No Known Allergies (Unverified , 04/12/19) All Systems: reviewed and negative except above Subjective trach vent altered Objective Last 24 Hour Vital Signs Date Time Temp Pulse Resp B/P (MAP) Pulse Ox O2 Delivery O2 Flow Rate FiO2 06/08/19 15:00 78 22 30 06/08/19 12:34 65 16 30 06/08/19 12:00 99.3 72 21 163/93 (116) 99 06/08/19 12:00 Mechanical Ventilator 06/08/19 12:00 30 06/08/19 11:45 71 06/08/19 10:52 68 16 30 06/08/19 09:08 71 19 30 06/08/19 09:00 76 167/89 06/08/19 08:00 30 06/08/19 08:00 99.5 76 20 167/89 (115) 98 06/08/19 08:00 Mechanical Ventilator 06/08/19 07:54 69 06/08/19 07:11 71 17 30 06/08/19 05:16 74 16 30 06/08/19 04:00 30 06/08/19 04:00 Mechanical Ventilator 06/08/19 04:00 97.3 70 17 165/92 (116) 96 06/08/19 03:34 79 06/08/19 03:20 60 16 30 06/08/19 01:09 70 16 30 06/08/19 00:00 98.4 72 20 165/86 (112) 97 06/08/19 00:00 Mechanical Ventilator 06/08/19 00:00 70 06/07/19 22:30 70 17 30 06/07/19 21:03 72 16 30 06/07/19 20:31 81 162/95 06/07/19 20:00 98.2 75 17 162/95 (117) 97 06/07/19 20:00 76 06/07/19 20:00 Mechanical Ventilator 06/07/19 20:00 30 06/07/19 18:30 78 17 30 06/07/19 17:09 74 16 30 06/07/19 16:00 97.5 79 16 154/94 (114) 95 06/07/19 16:00 30 06/07/19 16:00 79 06/07/19 16:00 Mechanical Ventilator Intake and Output 06/07/19 06/08/19 19:00 07:00 Intake Total 990 ml 1051.6 ml Output Total 850 ml Balance 140 ml 1051.6 ml Free Water 600 ml 300 ml IV Total 421.6 ml Tube Feeding 390 ml 330 ml Output Urine Total 850 ml # Bowel Movements 2 1 Laboratory Tests 06/08/19 03:10: White Blood Count 7.4, Red Blood Count 2.78L, Hemoglobin 8.2L, Hematocrit 27.1L , Mean Corpuscular Volume 98, Mean Corpuscular Hemoglobin 29.6, Mean Corpuscular Hemoglobin Concent 30.3L, Red Cell Distribution Width 22.4H, Platelet Count 181, Mean Platelet Volume 7.0, Neutrophils (%) (Auto) 53.1, Lymphocytes (%) (Auto) 35.7, Monocytes (%) (Auto) 6.6, Eosinophils (%) (Auto) 3.4H, Basophils (%) (Auto) 1.1, Sodium Level 149H, Potassium Level 3.7, Chloride Level 113H, Carbon Dioxide Level 27, Anion Gap 9, Blood Urea Nitrogen 47H, Creatinine 1.2, Estimat Glomerular Filtration Rate , Glucose Level 190H, Calcium Level 8.7 Height (Feet): 5 Height (Inches): 4.00 Weight (Pounds): 196 General Appearance: lethargic EENT: normal ENT inspection Neck: normal alignment Cardiovascular: normal peripheral pulses, normal rate, regular rhythm Respiratory/Chest: chest wall non-tender, lungs clear, normal breath sounds Abdomen: normal bowel sounds, non tender, soft Extremities: normal inspection Edema: no edema noted Arm (L), no edema noted Arm (R), no edema noted Leg (L), no edema noted Leg (R), no edema noted Pedal (L), no edema noted Pedal (R), no edema noted Generalized Neurologic: motor weakness Skin: normal pigmentation, warm/dry Jama Keating DO Jun 08, 2019 15:10
[2019-06-08] MEDS ORDERED: NS 275ml ONE (15:33)
--- NOTE | 2019-06-08 15:47 | Cardiac Electrophysiology PN ---
Assessment/Plan Assessment/Plan 1. CHF with BNP of 35,000. On Lasix 40 mg IV b.i.d. Echo EF of 55% to 60%. 2. Hypertension. On Lopressor 25 bid and Lasix 40 IV b.i.d. 3. History of atrial flutter that self-terminated. 4. Troponin leak and CAD with inferolateral T-wave inversion, levels flat and no CP. Could be due to severe anemia Hb 7.0. On Metoprolol 25 bid and Plavix 5. Sepsis with elevated white count. On IV antibiotics. 6. Ventilator-dependent respiratory failure, status post tracheostomy on April. 7. Dysphagia, status post PEG tube on April 22, 2019. 8. History of CVA and hemiplegia. 9. Nonverbal status. 10. Anemia status post blood transfusion.S/P another PRBC 06/05/19 Stool OB positive. Going for EGD tomorrow by Dr. Gentile 11. Status post renal failure. BUN and creatinine is 15 and 1.3. 12. Lactic acidosis, likely due to sepsis. 13. Hypokalemia, Replaced DW RN Subjective Subjective Son and RN at bedside.In SR. Scheduled for EGD tomorrow Objective Last 24 Hour Vital Signs Date Time Temp Pulse Resp B/P (MAP) Pulse Ox O2 Delivery O2 Flow Rate FiO2 06/08/19 15:00 78 22 30 06/08/19 12:34 65 16 30 06/08/19 12:00 99.3 72 21 163/93 (116) 99 06/08/19 12:00 Mechanical Ventilator 06/08/19 12:00 30 06/08/19 11:45 71 06/08/19 10:52 68 16 30 06/08/19 09:08 71 19 30 06/08/19 09:00 76 167/89 06/08/19 08:00 30 06/08/19 08:00 99.5 76 20 167/89 (115) 98 06/08/19 08:00 Mechanical Ventilator 06/08/19 07:54 69 06/08/19 07:11 71 17 30 06/08/19 05:16 74 16 30 06/08/19 04:00 30 06/08/19 04:00 Mechanical Ventilator 06/08/19 04:00 97.3 70 17 165/92 (116) 96 06/08/19 03:34 79 06/08/19 03:20 60 16 30 06/08/19 01:09 70 16 30 06/08/19 00:00 98.4 72 20 165/86 (112) 97 06/08/19 00:00 Mechanical Ventilator 06/08/19 00:00 70 06/07/19 22:30 70 17 30 06/07/19 21:03 72 16 30 06/07/19 20:31 81 162/95 06/07/19 20:00 98.2 75 17 162/95 (117) 97 06/07/19 20:00 76 06/07/19 20:00 Mechanical Ventilator 06/07/19 20:00 30 06/07/19 18:30 78 17 30 06/07/19 17:09 74 16 30 06/07/19 16:00 97.5 79 16 154/94 (114) 95 06/07/19 16:00 30 06/07/19 16:00 79 06/07/19 16:00 Mechanical Ventilator Intake and Output 06/07/19 06/08/19 19:00 07:00 Intake Total 990 ml 1051.6 ml Output Total 850 ml Balance 140 ml 1051.6 ml Free Water 600 ml 300 ml IV Total 421.6 ml Tube Feeding 390 ml 330 ml Output Urine Total 850 ml # Bowel Movements 2 1 Laboratory Tests Test 06/08/19 03:10 White Blood Count 7.4 K/UL (4.8-10.8) Red Blood Count 2.78 M/UL (4.20-5.40) L Hemoglobin 8.2 G/DL (12.0-16.0) L Hematocrit 27.1 % (37.0-47.0) L Mean Corpuscular Volume 98 FL (80-99) Mean Corpuscular Hemoglobin 29.6 PG (27.0-31.0) Mean Corpuscular Hemoglobin Concent 30.3 G/DL (32.0-36.0) L Red Cell Distribution Width 22.4 % (11.6-14.8) H Platelet Count 181 K/UL (150-450) Mean Platelet Volume 7.0 FL (6.5-10.1) Neutrophils (%) (Auto) 53.1 % (45.0-75.0) Lymphocytes (%) (Auto) 35.7 % (20.0-45.0) Monocytes (%) (Auto) 6.6 % (1.0-10.0) Eosinophils (%) (Auto) 3.4 % (0.0-3.0) H Basophils (%) (Auto) 1.1 % (0.0-2.0) Sodium Level 149 MMOL/L (136-145) H Potassium Level 3.7 MMOL/L (3.5-5.1) Chloride Level 113 MMOL/L (98-107) H Carbon Dioxide Level 27 MMOL/L (21-32) Anion Gap 9 mmol/L (5-15) Blood Urea Nitrogen 47 mg/dL (7-18) H Creatinine 1.2 MG/DL (0.55-1.30) Estimat Glomerular Filtration Rate mL/min (>60) Glucose Level 190 MG/DL (74-106) H Calcium Level 8.7 MG/DL (8.5-10.1) Microbiology Date/Time Source Procedure Growth Status 06/06/19 11:55 Blood Blood Culture - Preliminary NO GROWTH AFTER 24 HOURS Resulted 06/06/19 11:45 Blood Blood Culture - Preliminary NO GROWTH AFTER 24 HOURS Resulted 06/07/19 00:15 Sputum Gram Stain - Final Resulted 06/07/19 00:15 Sputum Sputum Culture Pending Resulted Objective HEAD AND NECK: No JVD. LUNGS: Decreased breath sounds. Status post tracheostomy. CARDIOVASCULAR: Shows regular S1 and S2 with no gallop. ABDOMEN: Status post G-tube. EXTREMITIES: Have anasarca. Claude Pena MD Jun 08, 2019 15:47
[2019-06-08 16:00] VITALS: BP 157/87
--- NOTE | 2019-06-08 16:00 | NUR ---
NURSE NOTES: Seen by Dr. Pena with [facility].
--- NOTE | 2019-06-08 16:20 | Hematology/Onc Progress Note ---
Assessment/Plan Assessment/Plan Assessment/Plan: # Anemia of chronic disease likely multifactorial process, in the past has had anemia as well --> w/u reveals ferritin is >1500, esr and crp are elevated --> on abx at this time, ID recs as needed --> smear has been reviewed, no schistocytes noted --> monitor for bleed, transfuse with 1 unit 06/05 --> hgb goal >7 and transfuse as needed --> cea is 4.2 is wnl # Leukocytosis with Pulmonary infiltrates vs pulmonary edema hx of trach, had sepsis --> CXR: Excessive bilateral diffuse infiltrates versus edema, increased from prior study of 05/05/2019 --> on annmarie and vanc iv abx --> imaging has been reviewed # REMY on CKD --> per renal recs # Recent PNA --> s/p abx with Rx # HyperGlycemia / DM 24 H urine protein check 2.4 gram # 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 Greatly appreciate consultation. Subjective Constitutional: Denies: no symptoms, chills, fever, malaise, weakness, other HEENT: Denies: no symptoms, eye pain, blurred vision, tearing, double vision, ear pain, ear discharge, nose pain, nose congestion, throat pain, throat swelling, mouth pain, mouth swelling, other Cardiovascular: Denies: no symptoms, chest pain, edema, irregular heart rate, lightheadedness, palpitations, syncope, other Respiratory: Denies: no symptoms, cough, shortness of breath, SOB with excertion, SOB at rest, sputum, wheezing, other Gastrointestinal/Abdominal: Denies: no symptoms, abdomen distended, abdominal pain, black stools, tarry stools, blood in stool, constipated, diarrhea, difficulty swallowing, nausea, poor appetite, poor fluid intake, rectal bleeding , vomiting, other Genitourinary: Denies: no symptoms, burning, discharge, frequency, flank pain, hematuria, incontinence, pain, urgency, other Allergies: Coded Allergies: No Known Allergies (Unverified , 04/12/19) Subjective 06/07: on trach, vent, remains altered, is off pressors, h/h reviewed 06/08: to go for egd tomorrow, labs reviewed, no f/c Objective Objective Current Medications Medications (Trade) Dose Ordered Sig/Kenisha Route PRN Reason Start Time Stop Time Status Last Admin Dose Admin Acetaminophen (Tylenol) 650 mg Q4H PRN ORAL FEVER (temp>100.5 F) 06/06/19 13:30 07/04/19 13:29 Albuterol/ Ipratropium (Albuterol/ Ipratropium) 3 ml Q4H PRN HHN Shortness of Breath 06/06/19 13:30 06/09/19 13:29 Dextrose (Dextrose 50%) 25 ml Q30M PRN IV Hypoglycemia 06/06/19 13:30 07/04/19 15:21 Dextrose (Dextrose 50%) 50 ml Q30M PRN IV hypoglycemia 06/06/19 13:30 07/04/19 15:29 Furosemide (Lasix) 40 mg EVERY 12 HOURS IV 06/06/19 21:00 07/04/19 20:59 06/08/19 09:00 Heparin Sodium (Porcine) (Heparin 5000 units/ml) 5,000 units EVERY 12 HOURS SUBQ 06/06/19 21:00 07/04/19 20:59 Levofloxacin (Levaquin) 750 mg EVERY OTHER DAY GT 06/07/19 09:00 06/12/19 12:59 06/07/19 08:20 Lorazepam (Ativan 2mg/ml 1ml) 2 mg Q2H PRN IV For Anxiety 06/06/19 13:30 06/11/19 13:29 Meropenem 1 gm/ Sodium Chloride 55 ml @ 110 mls/hr Q12HR@0000,1200 IVPB 06/07/19 00:00 06/10/19 11:59 06/08/19 12:11 Metoprolol Tartrate (Lopressor) 25 mg EVERY 12 HOURS ORAL 06/06/19 21:00 07/04/19 20:59 06/08/19 09:00 Morphine Sulfate (Morphine Sulfate) 4 mg Q4H PRN IVP Severe Pain (Pain Scale 7-10) 06/06/19 13:30 06/11/19 13:29 Ondansetron HCl (Zofran) 4 mg Q6H PRN IVP Nausea & Vomiting 06/06/19 13:30 07/04/19 13:29 Pantoprazole (Protonix) 40 mg DAILY IV 06/07/19 09:00 07/05/19 08:59 06/08/19 08:59 Polyethylene Glycol (Miralax) 17 gm DAILYPRN PRN ORAL Constipation 06/06/19 13:30 07/04/19 13:29 Potassium Chloride (K-Dur) 20 meq TWICE A DAY GT 06/07/19 18:00 07/07/19 17:59 06/08/19 09:00 Vancomycin HCl (Vanco rx to dose) 1 ea DAILY PRN MISC PER RX PROTOCOL 06/06/19 13:30 07/06/19 13:29 Vancomycin HCl 1 gm/Dextrose 275 ml @ 183.3 mls/ hr Q24H IVPB 06/06/19 13:00 06/11/19 12:59 06/08/19 13:39 Last 24 Hour Vital Signs Date Time Temp Pulse Resp B/P (MAP) Pulse Ox O2 Delivery O2 Flow Rate FiO2 06/08/19 15:00 78 22 30 06/08/19 12:34 65 16 30 06/08/19 12:00 99.3 72 21 163/93 (116) 99 06/08/19 12:00 Mechanical Ventilator 06/08/19 12:00 30 06/08/19 11:45 71 06/08/19 10:52 68 16 30 06/08/19 09:08 71 19 30 06/08/19 09:00 76 167/89 06/08/19 08:00 30 06/08/19 08:00 99.5 76 20 167/89 (115) 98 06/08/19 08:00 Mechanical Ventilator 06/08/19 07:54 69 06/08/19 07:11 71 17 30 06/08/19 05:16 74 16 30 06/08/19 04:00 30 06/08/19 04:00 Mechanical Ventilator 06/08/19 04:00 97.3 70 17 165/92 (116) 96 06/08/19 03:34 79 06/08/19 03:20 60 16 30 06/08/19 01:09 70 16 30 06/08/19 00:00 98.4 72 20 165/86 (112) 97 06/08/19 00:00 Mechanical Ventilator 06/08/19 00:00 70 06/07/19 22:30 70 17 30 06/07/19 21:03 72 16 30 06/07/19 20:31 81 162/95 06/07/19 20:00 98.2 75 17 162/95 (117) 97 06/07/19 20:00 76 06/07/19 20:00 Mechanical Ventilator 06/07/19 20:00 30 06/07/19 18:30 78 17 30 06/07/19 17:09 74 16 30 06/07/19 16:00 97.5 79 16 154/94 (114) 95 06/07/19 16:00 30 06/07/19 16:00 79 06/07/19 16:00 Mechanical Ventilator 06/07/19 14:37 67 16 30 06/07/19 13:20 65 16 30 06/07/19 12:00 73 06/07/19 12:00 97.6 76 16 140/77 (98) 100 06/07/19 12:00 Mechanical Ventilator 06/07/19 12:00 30 06/07/19 10:39 67 16 30 06/07/19 08:59 81 16 30 06/07/19 08:21 75 154/90 06/07/19 08:11 30 06/07/19 08:00 98.6 75 16 154/71 (98) 100 06/07/19 08:00 Mechanical Ventilator 06/07/19 08:00 73 06/07/19 08:00 40 06/07/19 07:57 30 06/07/19 07:15 64 16 40 06/07/19 05:18 76 18 40 06/07/19 04:00 Mechanical Ventilator 06/07/19 04:00 98.1 76 16 175/83 (113) 100 06/07/19 04:00 40 06/07/19 03:34 75 06/07/19 02:58 80 17 40 06/07/19 01:26 72 16 40 06/07/19 00:00 98.2 65 16 168/84 (112) 100 06/07/19 00:00 Mechanical Ventilator 06/07/19 00:00 40 06/06/19 23:32 70 06/06/19 23:30 69 18 40 06/06/19 21:15 64 18 40 06/06/19 20:52 69 172/81 06/06/19 20:00 97.7 69 16 172/81 (111) 100 06/06/19 20:00 Mechanical Ventilator 06/06/19 20:00 40 06/06/19 19:50 68 18 40 06/06/19 19:48 65 06/06/19 17:12 78 16 40 Intake and Output 06/07/19 06/08/19 19:00 07:00 Intake Total 990 ml 1051.6 ml Output Total 850 ml Balance 140 ml 1051.6 ml Free Water 600 ml 300 ml IV Total 421.6 ml Tube Feeding 390 ml 330 ml Output Urine Total 850 ml # Bowel Movements 2 1 Labs Test 06/06/19 07:00 06/07/19 02:00 06/07/19 03:20 06/07/19 07:40 White Blood Count 8.3 K/UL (4.8-10.8) 7.6 K/UL (4.8-10.8) Red Blood Count 2.81 M/UL (4.20-5.40) 2.86 M/UL (4.20-5.40) Hemoglobin 8.3 G/DL (12.0-16.0) 8.3 G/DL (12.0-16.0) Hematocrit 27.3 % (37.0-47.0) 27.7 % (37.0-47.0) Mean Corpuscular Volume 97 FL (80-99) 97 FL (80-99) Mean Corpuscular Hemoglobin 29.5 PG (27.0-31.0) 29.2 PG (27.0-31.0) Mean Corpuscular Hemoglobin Concent 30.4 G/DL (32.0-36.0) 30.1 G/DL (32.0-36.0) Red Cell Distribution Width 22.7 % (11.6-14.8) 22.7 % (11.6-14.8) Platelet Count 158 K/UL (150-450) 155 K/UL (150-450) Mean Platelet Volume 7.5 FL (6.5-10.1) 6.9 FL (6.5-10.1) Neutrophils (%) (Auto) 60.6 % (45.0-75.0) 61.4 % (45.0-75.0) Lymphocytes (%) (Auto) 29.0 % (20.0-45.0) 28.4 % (20.0-45.0) Monocytes (%) (Auto) 5.2 % (1.0-10.0) 5.5 % (1.0-10.0) Eosinophils (%) (Auto) 4.1 % (0.0-3.0) 3.5 % (0.0-3.0) Basophils (%) (Auto) 1.1 % (0.0-2.0) 1.2 % (0.0-2.0) Prothrombin Time 12.3 SEC (9.30-11.50) Prothromb Time International Ratio 1.2 (0.9-1.1) Activated Partial Thromboplast Time 32 SEC (23-33) Sodium Level 148 MMOL/L (136-145) 149 MMOL/L (136-145) Potassium Level 3.6 MMOL/L (3.5-5.1) 3.5 MMOL/L (3.5-5.1) Chloride Level 114 MMOL/L (98-107) 112 MMOL/L (98-107) Carbon Dioxide Level 26 MMOL/L (21-32) 26 MMOL/L (21-32) Anion Gap 8 mmol/L (5-15) 11 mmol/L (5-15) Blood Urea Nitrogen 53 mg/dL (7-18) 51 mg/dL (7-18) Creatinine 1.2 MG/DL (0.55-1.30) 1.2 MG/DL (0.55-1.30) Estimat Glomerular Filtration Rate mL/min (>60) mL/min (>60) Glucose Level 102 MG/DL (74-106) 143 MG/DL (74-106) Calcium Level 8.6 MG/DL (8.5-10.1) 8.9 MG/DL (8.5-10.1) Phosphorus Level 4.0 MG/DL (2.5-4.9) 3.8 MG/DL (2.5-4.9) Magnesium Level 1.9 MG/DL (1.8-2.4) 2.1 MG/DL (1.8-2.4) Ferritin 333 NG/ML (8-388) Total Bilirubin 0.5 MG/DL (0.2-1.0) 0.5 MG/DL (0.2-1.0) Aspartate Amino Transf (AST/SGOT) 22 U/L (15-37) 20 U/L (15-37) Alanine Aminotransferase (ALT/SGPT) 12 U/L (12-78) 8 U/L (12-78) Alkaline Phosphatase 94 U/L (46-116) 87 U/L (46-116) Pro-B-Type Natriuretic Peptide > 64348 pg/mL (0-125) Total Protein 6.8 G/DL (6.4-8.2) 6.8 G/DL (6.4-8.2) Albumin 1.8 G/DL (3.4-5.0) 1.7 G/DL (3.4-5.0) Globulin 5.0 g/dL 5.1 g/dL Albumin/Globulin Ratio 0.4 (1.0-2.7) 0.3 (1.0-2.7) Stool Occult Blood Positive (NEGATIVE) Arterial Blood pH 7.427 (7.350-7.450) Arterial Blood Partial Pressure CO2 38.2 mmHg (35.0-45.0) Arterial Blood Partial Pressure O2 109.3 mmHg (75.0-100.0) Arterial Blood HCO3 24.6 mmol/L (22.0-26.0) Arterial Blood Oxygen Saturation 97.8 % (95-100) Arterial Blood Base Excess 0.3 (-2-2) Marlo Test Positive Test 06/07/19 12:10 06/08/19 03:10 Vancomycin Level Trough 17.2 ug/mL (5.0-12.0) White Blood Count 7.4 K/UL (4.8-10.8) Red Blood Count 2.78 M/UL (4.20-5.40) Hemoglobin 8.2 G/DL (12.0-16.0) Hematocrit 27.1 % (37.0-47.0) Mean Corpuscular Volume 98 FL (80-99) Mean Corpuscular Hemoglobin 29.6 PG (27.0-31.0) Mean Corpuscular Hemoglobin Concent 30.3 G/DL (32.0-36.0) Red Cell Distribution Width 22.4 % (11.6-14.8) Platelet Count 181 K/UL (150-450) Mean Platelet Volume 7.0 FL (6.5-10.1) Neutrophils (%) (Auto) 53.1 % (45.0-75.0) Lymphocytes (%) (Auto) 35.7 % (20.0-45.0) Monocytes (%) (Auto) 6.6 % (1.0-10.0) Eosinophils (%) (Auto) 3.4 % (0.0-3.0) Basophils (%) (Auto) 1.1 % (0.0-2.0) Sodium Level 149 MMOL/L (136-145) Potassium Level 3.7 MMOL/L (3.5-5.1) Chloride Level 113 MMOL/L (98-107) Carbon Dioxide Level 27 MMOL/L (21-32) Anion Gap 9 mmol/L (5-15) Blood Urea Nitrogen 47 mg/dL (7-18) Creatinine 1.2 MG/DL (0.55-1.30) Estimat Glomerular Filtration Rate mL/min (>60) Glucose Level 190 MG/DL (74-106) Calcium Level 8.7 MG/DL (8.5-10.1) Height (Feet): 5 Height (Inches): 4.00 Weight (Pounds): 196 Objective HEAD AND NECK: No JVD. LUNGS: Decreased breath sounds. ++ Status post tracheostomy. CARDIOVASCULAR: Shows regular S1 and S2 with no gallop. ABDOMEN: Status post G-tube. EXTREMITIES: Have anasarca. Steven Norton MD Jun 08, 2019 16:20
--- NOTE | 2019-06-08 18:41 | NUR ---
RESPIRATORY NOTE: Received pt on AC 16, 500VT, 30%, PEEP +5. Pt is trach-dependent w/ a cuffed, Shiley 8 tube. Pt is alert/awake, responds to stimuli. B/S enmanuel. rhonchi, sxn small to moderate amounts of thick, marin-yellow secretions. Family present at bedside. Vent plugged into red outlet, ambubag at bedside. Pt resting comfortably, in no apparent distress at this time. Will continue plan of care.
--- NOTE | 2019-06-08 19:00 | NUR ---
HAND-OFF: Report given to Paxton RN. Pt. remain stable.
--- NOTE | 2019-06-08 19:01 | NUR ---
NURSE NOTES: Received patient from Radha BURNETT, Patient is awake and oriented x1. Patient is receiving oxygen via trach to vent: Portex 8, AC 16, TV 600, FiO2 35%, PEEP 5. IV site is Left Upper chest 22g, patent and intact. G-tube is patent and intact receiving Jevity 1.2 @ 30cc/hr, patient is tolerating well, no residuals. Purewick is patent and draining. Bed is locked, placed in lowest position, side rails up x3, bed alarm on, call light within reach. Will continue to monitor.
[2019-06-08 20:00] VITALS: BP 171/87
[2019-06-09] VITALS (7 sets, daily range): BP systolic 148–184; BP diastolic 79–97
[2019-06-09] MEDS: Meropenem 1 GM in NS 55 ML IVPB SCH ×3 (00:01→23:05)
[2019-06-09 05:09] LABS: BASOPHILS % (AUTO) 0.9 % (0.0-2.0); EOSINOPHILS % (AUTO) 3.4 % (0.0-3.0); HEMATOCRIT 28.4 % (37.0-47.0); HEMOGLOBIN 8.5 G/DL (12.0-16.0); LYMPHOCYTES % (AUTO) 38.1 % (20.0-45.0); MEAN CORPUSCULAR VOLUME 98 FL (80-99); MONOCYTES % (AUTO) 5.5 % (1.0-10.0); NEUTROPHILS % (AUTO) 52.2 % (45.0-75.0); PLATELET COUNT 179 K/UL (150-450); RED CELL DISTRIBUTION WIDTH 22.6 % (11.6-14.8); WHITE BLOOD COUNT 8.3 K/UL (4.8-10.8)
[2019-06-09 05:17] LABS: INR 1.1 (0.9-1.1)
--- NOTE | 2019-06-09 05:30 | NUR ---
NURSE NOTES: Patients Blood pressure was 179/95. Contacted Dr. Springer, awaiting orders.
[2019-06-09 05:32] LABS: ALANINE AMINOTRANSFERASE 8 U/L (12-78); ALBUMIN 1.9 G/DL (3.4-5.0); ALBUMIN/GLOBULIN RATIO 0.4 (1.0-2.7); ALKALINE PHOSPHATASE 90 U/L (46-116); ANION GAP 7 mmol/L (5-15); ASPARTATE AMINO TRANSFERASE 23 U/L (15-37); BILIRUBIN,TOTAL 0.6 MG/DL (0.2-1.0); BLOOD UREA NITROGEN 46 mg/dL (7-18); CALCIUM 9.1 MG/DL (8.5-10.1); CARBON DIOXIDE 28 MMOL/L (21-32); CHLORIDE 113 MMOL/L (98-107); CREATININE 1.2 MG/DL (0.55-1.30); POTASSIUM 4.2 MMOL/L (3.5-5.1); SODIUM 148 MMOL/L (136-145)
--- NOTE | 2019-06-09 07:06 | Anethesia Preoperative Eval ---
Anesthesia Pre-op PMH/ROS General Date of Evaluation: Jun 09, 2019 Anesthesiologist: Cam ASA Score: ASA 3 Mallampati Score Class I : Soft palate, uvula, fauces, pillars visible Class II: Soft palate, uvula, fauces visible Class III: Soft palate, base of uvula visible Class IV: Only hard plate visible Mallampati Classification: Class II Surgeon: Seferino Diagnosis: Possible GI bleed Surgical Procedure: EGD Anesthesia History: none Family History: no anesthesia problems Allergies: Coded Allergies: No Known Allergies (Unverified , 04/12/19) Medications: see eMAR Patient NPO?: Yes NPO Date: Jun 08, 2019 NPO Time: 22:00 Past Medical History Cardiovascular: Reports: HTN; Denies: CAD, NV, valve dz, arrhythmia, other Pulmonary: Reports: COPD - with respiratory failure, trach in place, on mechanical ventilation; Denies: asthma, HEN[place], other Gastrointestinal/Genitourinary: Reports: ESRD; Denies: GERD, CRI, other Neurologic/Psychiatric: Reports: CVA; Denies: dementia, depression/anxiety, TIA, other Endocrine: Reports: DM; Denies: hypothyroidism, steroids, other HEENT: Denies: cataract (L), cataract (R), glaucoma, [place] (L), [place] (R), other Hematology/Immune: Reports: anemia; Denies: DVT, bleeding disorder, other Musculoskeletal/Integumentary: Denies: OA, RA, DJD, DDD, edema, other PSxH Narrative: trach, g tube Anesthesia Pre-op Phys. Exam Physician Exam Last Vital Signs Date Time Temp Pulse Resp B/P (MAP) Pulse Ox O2 Delivery O2 Flow Rate FiO2 06/09/19 06:45 70 16 30 06/09/19 04:00 99.0 179/95 (123) 98 06/09/19 04:00 Mechanical Ventilator Constitutional: NAD Cardiovascular: RRR Respiratory: CTA Airway Exam Mallampati Score: Class III MO: limited ROM: limited Anesthesia Pre-op A/P Labs Hematology Test 06/09/19 03:35 White Blood Count 8.3 K/UL (4.8-10.8) Red Blood Count 2.90 M/UL (4.20-5.40) L Hemoglobin 8.5 G/DL (12.0-16.0) L Hematocrit 28.4 % (37.0-47.0) L Mean Corpuscular Volume 98 FL (80-99) Mean Corpuscular Hemoglobin 29.4 PG (27.0-31.0) Mean Corpuscular Hemoglobin Concent 30.0 G/DL (32.0-36.0) L Red Cell Distribution Width 22.6 % (11.6-14.8) H Platelet Count 179 K/UL (150-450) Mean Platelet Volume 7.1 FL (6.5-10.1) Neutrophils (%) (Auto) 52.2 % (45.0-75.0) Lymphocytes (%) (Auto) 38.1 % (20.0-45.0) Monocytes (%) (Auto) 5.5 % (1.0-10.0) Eosinophils (%) (Auto) 3.4 % (0.0-3.0) H Basophils (%) (Auto) 0.9 % (0.0-2.0) Coagulation Test 06/09/19 03:35 Prothrombin Time 11.9 SEC (9.30-11.50) H Prothromb Time International Ratio 1.1 (0.9-1.1) Activated Partial Thromboplast Time 28 SEC (23-33) Chemistry Test 06/09/19 03:35 Sodium Level 148 MMOL/L (136-145) H Potassium Level 4.2 MMOL/L (3.5-5.1) Chloride Level 113 MMOL/L (98-107) H Carbon Dioxide Level 28 MMOL/L (21-32) Anion Gap 7 mmol/L (5-15) Blood Urea Nitrogen 46 mg/dL (7-18) H Creatinine 1.2 MG/DL (0.55-1.30) Estimat Glomerular Filtration Rate mL/min (>60) Glucose Level 153 MG/DL (74-106) H Calcium Level 9.1 MG/DL (8.5-10.1) Phosphorus Level 3.0 MG/DL (2.5-4.9) Magnesium Level 1.7 MG/DL (1.8-2.4) L Total Bilirubin 0.6 MG/DL (0.2-1.0) Aspartate Amino Transf (AST/SGOT) 23 U/L (15-37) Alanine Aminotransferase (ALT/SGPT) 8 U/L (12-78) L Alkaline Phosphatase 90 U/L (46-116) Total Protein 7.1 G/DL (6.4-8.2) Albumin 1.9 G/DL (3.4-5.0) L Globulin 5.2 g/dL Albumin/Globulin Ratio 0.4 (1.0-2.7) L Studies Pre-op Studies: EKG - sr Risk Assessment & Plan Assessment: ASA III Plan: MAC Status Change Before Surgery: No Pre-Antibiotics Drug: N/A Lisandra Dodge MD Jun 09, 2019 07:06
--- NOTE | 2019-06-09 07:34 | NUR ---
HAND-OFF: Report given to Jenn BURNETT.
--- NOTE | 2019-06-09 07:38 | NUR ---
NURSE NOTES: received pt from Paxton RN. pt is AOx1 nonverbal. pt is resting on the bed, no SOB, no respiratory distress noted. no dysrhythmia reported from the last shift.
[2019-06-09] MEDS: Heparin 5000 units/ml inj SUBQ SCH ×2 (09:00→20:26)
[2019-06-09] MEDS: Pantoprazole Inj IV SCH (09:00)
--- NOTE | 2019-06-09 09:07 | Cardiology Progress Note ---
Assessment/Plan Status: stable Assessment/Plan Assessment/Plan Assessment/Plan 1. CHF Diastolic acute on chronic with BNP of 35,000. On Lasix 40 mg IV b.i.d. -> transition to per GT Monitor I/O and renal function Echo EF of 55% to 60%. 2. Hypertension. On Lopressor 25 bid and Lasix 40 IV daily 3. History of atrial flutter that self-terminated. No indication for ablation 4. Troponin leak and CAD with inferolateral T-wave inversion, levels flat and no CP. Could be due to severe anemia Hb 7.0. On Metoprolol 25 bid and Plavix Outpatient stress test when stable 5. Sepsis with elevated white count. On IV antibiotics. 6. Ventilator-dependent respiratory failure, status post tracheostomy on April. 7. Dysphagia, status post PEG tube on April 22, 2019. 8. History of CVA and hemiplegia. 9. Nonverbal status. 10. Anemia status post blood transfusion 06/05/19 Stool OB positive. EGD/Colonoscopy per Gi 11. Status post renal failure. BUN and creatinine is 15 and 1.3. 12. Lactic acidosis, likely due to sepsis. 13. Hypokalemia, Replaced -resolved 14. Hypernatremia -IV fluids/free water -Reduce lasix to daily Subjective Cardiovascular: Reports: no symptoms Respiratory: Reports: no symptoms Gastrointestinal/Abdominal: Reports: no symptoms Genitourinary: Reports: no symptoms Subjective Coverage for [place] No acute events, on PEEP, tolerating feeds, no fever, no distress, BP elevated Objective Last 24 Hour Vital Signs Date Time Temp Pulse Resp B/P (MAP) Pulse Ox O2 Delivery O2 Flow Rate FiO2 06/09/19 08:55 68 16 30 06/09/19 06:45 70 16 30 06/09/19 05:04 73 16 30 06/09/19 04:00 99.0 74 16 179/95 (123) 98 06/09/19 04:00 30 06/09/19 04:00 Mechanical Ventilator 06/09/19 03:34 69 06/09/19 03:34 69 06/09/19 02:58 65 16 30 06/09/19 02:09 99.2 69 20 165/97 (119) 98 06/09/19 00:52 74 16 30 06/09/19 00:00 30 06/09/19 00:00 Mechanical Ventilator 06/09/19 00:00 99.2 69 20 165/97 (119) 98 06/08/19 22:50 78 16 30 06/08/19 21:14 65 16 30 06/08/19 20:25 72 171/87 06/08/19 20:00 98.6 71 20 171/87 (115) 98 06/08/19 20:00 Mechanical Ventilator 06/08/19 20:00 30 06/08/19 19:03 72 06/08/19 18:38 68 20 30 06/08/19 16:59 77 16 30 06/08/19 16:00 Mechanical Ventilator 06/08/19 16:00 99.1 72 20 157/87 (110) 98 06/08/19 16:00 30 06/08/19 15:09 70 06/08/19 15:00 78 22 30 06/08/19 12:34 65 16 30 06/08/19 12:00 99.3 72 21 163/93 (116) 99 06/08/19 12:00 Mechanical Ventilator 06/08/19 12:00 30 06/08/19 11:45 71 06/08/19 10:52 68 16 30 06/08/19 09:08 71 19 30 General Appearance: no apparent distress, alert EENT: PERRL/EOMI, normal ENT inspection, TMs normal, pharynx normal Neck: non-tender, normal alignment, supple, normal inspection Rhythm: NSR Cardiovascular: normal peripheral pulses, normal rate, regular rhythm Respiratory/Chest: chest wall non-tender, lungs clear, normal breath sounds, no respiratory distress Abdomen: normal bowel sounds, non tender, soft, no organomegaly, no mass Extremities: normal range of motion, non-tender, moderate edema 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: 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, motor weakness, disoriented Intake and Output 06/08/19 06/09/19 19:00 07:00 Intake Total 610 ml 205 ml Output Total 400 ml 300 ml Balance 210 ml -95 ml Free Water 250 ml IV Total 55 ml Tube Feeding 360 ml 150 ml Output Urine Total 400 ml 300 ml # Bowel Movements 2 1 Laboratory Tests Test 06/09/19 03:35 White Blood Count 8.3 K/UL (4.8-10.8) Red Blood Count 2.90 M/UL (4.20-5.40) L Hemoglobin 8.5 G/DL (12.0-16.0) L Hematocrit 28.4 % (37.0-47.0) L Mean Corpuscular Volume 98 FL (80-99) Mean Corpuscular Hemoglobin 29.4 PG (27.0-31.0) Mean Corpuscular Hemoglobin Concent 30.0 G/DL (32.0-36.0) L Red Cell Distribution Width 22.6 % (11.6-14.8) H Platelet Count 179 K/UL (150-450) Mean Platelet Volume 7.1 FL (6.5-10.1) Neutrophils (%) (Auto) 52.2 % (45.0-75.0) Lymphocytes (%) (Auto) 38.1 % (20.0-45.0) Monocytes (%) (Auto) 5.5 % (1.0-10.0) Eosinophils (%) (Auto) 3.4 % (0.0-3.0) H Basophils (%) (Auto) 0.9 % (0.0-2.0) Prothrombin Time 11.9 SEC (9.30-11.50) H Prothromb Time International Ratio 1.1 (0.9-1.1) Activated Partial Thromboplast Time 28 SEC (23-33) Sodium Level 148 MMOL/L (136-145) H Potassium Level 4.2 MMOL/L (3.5-5.1) Chloride Level 113 MMOL/L (98-107) H Carbon Dioxide Level 28 MMOL/L (21-32) Anion Gap 7 mmol/L (5-15) Blood Urea Nitrogen 46 mg/dL (7-18) H Creatinine 1.2 MG/DL (0.55-1.30) Estimat Glomerular Filtration Rate mL/min (>60) Glucose Level 153 MG/DL (74-106) H Calcium Level 9.1 MG/DL (8.5-10.1) Phosphorus Level 3.0 MG/DL (2.5-4.9) Magnesium Level 1.7 MG/DL (1.8-2.4) L Total Bilirubin 0.6 MG/DL (0.2-1.0) Aspartate Amino Transf (AST/SGOT) 23 U/L (15-37) Alanine Aminotransferase (ALT/SGPT) 8 U/L (12-78) L Alkaline Phosphatase 90 U/L (46-116) Total Protein 7.1 G/DL (6.4-8.2) Albumin 1.9 G/DL (3.4-5.0) L Globulin 5.2 g/dL Albumin/Globulin Ratio 0.4 (1.0-2.7) L Microbiology Date/Time Source Procedure Growth Status 06/06/19 11:55 Blood Blood Culture - Preliminary NO GROWTH AFTER 48 HOURS Resulted 06/06/19 11:45 Blood Blood Culture - Preliminary NO GROWTH AFTER 48 HOURS Resulted 06/07/19 00:15 Sputum Gram Stain - Final Resulted 06/07/19 00:15 Sputum Culture - Preliminary Gram Negative Bacillus 1 Gram Negative Bacillus 2 Resulted Gildardo Galeana MD Jun 09, 2019 09:07
[2019-06-09] MEDS: Metoprolol 25mg tab ORAL SCH (09:10)
[2019-06-09] MEDS: Levofloxacin 750mg tab GT SCH (09:11)
--- NOTE | 2019-06-09 10:31 | General Progress Note ---
Assessment/Plan Problem List: (1) Acute and chronic respiratory failure ICD Codes: J96.20 - Acute and chronic respiratory failure, unspecified whether with hypoxia or hypercapnia SNOMED: 69477965 (2) History of CVA (cerebrovascular accident) ICD Codes: Z86.73 - Personal history of transient ischemic attack (TIA), and cerebral infarction without residual deficits SNOMED: 561646447 (3) CAD (coronary artery disease) ICD Codes: I25.10 - Atherosclerotic heart disease of [place] coronary artery without angina pectoris SNOMED: 54514419 (4) Right hemiplegia ICD Codes: G81.91 - Hemiplegia, unspecified affecting right dominant side SNOMED: 384763676 (5) Diabetes mellitus ICD Codes: E11.9 - Type 2 diabetes mellitus without complications SNOMED: 44313182 (6) Hypertensive heart disease ICD Codes: I11.9 - Hypertensive heart disease without heart failure SNOMED: 41711048 (7) 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2 - Chronic kidney disease, stage 2 (mild); D63.1 - Anemia in chronic kidney disease (11) Severe sepsis ICD Codes: A41.9 - Sepsis, unspecified organism; R65.20 - Severe sepsis without septic shock SNOMED: 09690704 Status: stable, progressing Assessment/Plan: vent abx bp bs control dc if clear Subjective Constitutional: Reports: weakness Allergies: Coded Allergies: No Known Allergies (Unverified , 04/12/19) All Systems: reviewed and negative except above Subjective trach vent altered Objective Last 24 Hour Vital Signs Date Time Temp Pulse Resp B/P (MAP) Pulse Ox O2 Delivery O2 Flow Rate FiO2 06/09/19 09:10 68 179/94 06/09/19 08:55 68 16 30 06/09/19 08:00 Mechanical Ventilator 06/09/19 08:00 98.1 70 16 179/94 (122) 100 06/09/19 08:00 30 06/09/19 07:47 68 06/09/19 06:45 70 16 30 06/09/19 05:04 73 16 30 06/09/19 04:00 99.0 74 16 179/95 (123) 98 06/09/19 04:00 30 06/09/19 04:00 Mechanical Ventilator 06/09/19 03:34 69 06/09/19 03:34 69 06/09/19 02:58 65 16 30 06/09/19 02:09 99.2 69 20 165/97 (119) 98 06/09/19 00:52 74 16 30 06/09/19 00:00 30 06/09/19 00:00 Mechanical Ventilator 06/09/19 00:00 99.2 69 20 165/97 (119) 98 06/08/19 22:50 78 16 30 06/08/19 21:14 65 16 30 06/08/19 20:25 72 171/87 06/08/19 20:00 98.6 71 20 171/87 (115) 98 06/08/19 20:00 Mechanical Ventilator 06/08/19 20:00 30 06/08/19 19:03 72 06/08/19 18:38 68 20 30 06/08/19 16:59 77 16 30 06/08/19 16:00 Mechanical Ventilator 06/08/19 16:00 99.1 72 20 157/87 (110) 98 06/08/19 16:00 30 06/08/19 15:09 70 06/08/19 15:00 78 22 30 06/08/19 12:34 65 16 30 06/08/19 12:00 99.3 72 21 163/93 (116) 99 06/08/19 12:00 Mechanical Ventilator 06/08/19 12:00 30 06/08/19 11:45 71 06/08/19 10:52 68 16 30 Intake and Output 06/08/19 06/09/19 19:00 07:00 Intake Total 610 ml 205 ml Output Total 400 ml 300 ml Balance 210 ml -95 ml Free Water 250 ml IV Total 55 ml Tube Feeding 360 ml 150 ml Output Urine Total 400 ml 300 ml # Bowel Movements 2 1 Laboratory Tests 06/09/19 03:35: White Blood Count 8.3, Red Blood Count 2.90L, Hemoglobin 8.5L, Hematocrit 28.4L , Mean Corpuscular Volume 98, Mean Corpuscular Hemoglobin 29.4, Mean Corpuscular Hemoglobin Concent 30.0L, Red Cell Distribution Width 22.6H, Platelet Count 179, Mean Platelet Volume 7.1, Neutrophils (%) (Auto) 52.2, Lymphocytes (%) (Auto) 38.1, Monocytes (%) (Auto) 5.5, Eosinophils (%) (Auto) 3.4H, Basophils (%) (Auto) 0.9, Prothrombin Time 11.9H, Prothromb Time International Ratio 1.1, Activated Partial Thromboplast Time 28, Sodium Level 148H, Potassium Level 4.2, Chloride Level 113H, Carbon Dioxide Level 28, Anion Gap 7, Blood Urea Nitrogen 46H, Creatinine 1.2, Estimat Glomerular Filtration Rate , Glucose Level 153H, Calcium Level 9.1, Phosphorus Level 3.0, Magnesium Level 1.7L, Total Bilirubin 0.6, Aspartate Amino Transf (AST/SGOT) 23, Alanine Aminotransferase (ALT/SGPT) 8L, Alkaline Phosphatase 90, Total Protein 7.1, Albumin 1.9L, Globulin 5.2, Albumin/Globulin Ratio 0.4L Height (Feet): 5 Height (Inches): 5.00 Weight (Pounds): 200 General Appearance: lethargic EENT: normal ENT inspection Neck: normal alignment Cardiovascular: normal peripheral pulses, normal rate, regular rhythm Respiratory/Chest: chest wall non-tender, lungs clear, normal breath sounds Abdomen: normal bowel sounds, non tender, soft Extremities: normal inspection Edema: no edema noted Arm (L), no edema noted Arm (R), no edema noted Leg (L), no edema noted Leg (R), no edema noted Pedal (L), no edema noted Pedal (R), no edema noted Generalized Neurologic: motor weakness Skin: normal pigmentation, warm/dry Jama Keating DO Jun 09, 2019 10:31
--- NOTE | 2019-06-09 10:34 | Pulmonolgy Critical Care Note ---
Critical Care - Asmt/Plan Problems: (1) Acute and chronic respiratory failure (2) Nosocomial pneumonia (3) Acute metabolic encephalopathy (4) Anemia in chronic kidney disease (CKD) (5) Renal failure (ARF), acute on chronic (6) NSTEMI (non-ST elevated myocardial infarction) (7) G tube feedings (8) History of CVA (cerebrovascular accident) (9) CAD (coronary artery disease) (10) Right hemiplegia (11) Diabetes mellitus (12) Hypertensive heart disease Respiratory: monitor respiratory rate, adjust FIO2, CXR Cardiac: continue to monitor HR/BP Renal: F/U I&O, keep IV fluid Infectious Disease: check cultures Gastrointestinal: continue feedings/current rate Endocrine: monitor blood sugar, continue sliding scale insulin Hematologic: transfuse if hgb<8.5 Neurologic: PRN Ativan, keep patient comfortable Prophylaxis: Protonix Notes Reviewed: schedule planning manager, renal Discussed with: nurses, consultants, casermanager technology - Objective Last 24 Hour Vital Signs Date Time Temp Pulse Resp B/P (MAP) Pulse Ox O2 Delivery O2 Flow Rate FiO2 06/09/19 09:10 68 179/94 06/09/19 08:55 68 16 30 06/09/19 08:00 Mechanical Ventilator 06/09/19 08:00 98.1 70 16 179/94 (122) 100 06/09/19 08:00 30 06/09/19 07:47 68 06/09/19 06:45 70 16 30 06/09/19 05:04 73 16 30 06/09/19 04:00 99.0 74 16 179/95 (123) 98 06/09/19 04:00 30 06/09/19 04:00 Mechanical Ventilator 06/09/19 03:34 69 06/09/19 03:34 69 06/09/19 02:58 65 16 30 06/09/19 02:09 99.2 69 20 165/97 (119) 98 06/09/19 00:52 74 16 30 06/09/19 00:00 30 06/09/19 00:00 Mechanical Ventilator 06/09/19 00:00 99.2 69 20 165/97 (119) 98 06/08/19 22:50 78 16 30 06/08/19 21:14 65 16 30 06/08/19 20:25 72 171/87 06/08/19 20:00 98.6 71 20 171/87 (115) 98 06/08/19 20:00 Mechanical Ventilator 06/08/19 20:00 30 06/08/19 19:03 72 06/08/19 18:38 68 20 30 06/08/19 16:59 77 16 30 06/08/19 16:00 Mechanical Ventilator 06/08/19 16:00 99.1 72 20 157/87 (110) 98 06/08/19 16:00 30 06/08/19 15:09 70 06/08/19 15:00 78 22 30 06/08/19 12:34 65 16 30 06/08/19 12:00 99.3 72 21 163/93 (116) 99 06/08/19 12:00 Mechanical Ventilator 06/08/19 12:00 30 06/08/19 11:45 71 06/08/19 10:52 68 16 30 Status: awake Condition: critical Neck: full ROM Heart: HR/BP stable Abdomen: soft, active bowel sounds Extremities: no C/C/E, edema Decubiti: location Micro: Microbiology Date/Time Source Procedure Growth Status 06/06/19 11:55 Blood Blood Culture - Preliminary NO GROWTH AFTER 48 HOURS Resulted 06/06/19 11:45 Blood Blood Culture - Preliminary NO GROWTH AFTER 48 HOURS Resulted 06/07/19 00:15 Sputum Gram Stain - Final Resulted 06/07/19 00:15 Sputum Culture - Preliminary Gram Negative Bacillus 1 Gram Negative Bacillus 2 Resulted Critical Care - Subjective ROS Limited/Unobtainable: Yes EKG Rhythm: Sinus Rhythm FI02: 30 Vent Support Breath Rate: 16 Vent Support Mode: AC Vent Tidal Volume: 500 Sputum Amount: Small PEEP: 5.0 PIP: 39 Tube Feeding Amount: 30 I&O: Intake and Output 06/08/19 06/09/19 19:00 07:00 Intake Total 610 ml 205 ml Output Total 400 ml 300 ml Balance 210 ml -95 ml Free Water 250 ml IV Total 55 ml Tube Feeding 360 ml 150 ml Output Urine Total 400 ml 300 ml # Bowel Movements 2 1 Labs: Laboratory Tests Test 06/09/19 03:35 White Blood Count 8.3 K/UL (4.8-10.8) Red Blood Count 2.90 M/UL (4.20-5.40) L Hemoglobin 8.5 G/DL (12.0-16.0) L Hematocrit 28.4 % (37.0-47.0) L Mean Corpuscular Volume 98 FL (80-99) Mean Corpuscular Hemoglobin 29.4 PG (27.0-31.0) Mean Corpuscular Hemoglobin Concent 30.0 G/DL (32.0-36.0) L Red Cell Distribution Width 22.6 % (11.6-14.8) H Platelet Count 179 K/UL (150-450) Mean Platelet Volume 7.1 FL (6.5-10.1) Neutrophils (%) (Auto) 52.2 % (45.0-75.0) Lymphocytes (%) (Auto) 38.1 % (20.0-45.0) Monocytes (%) (Auto) 5.5 % (1.0-10.0) Eosinophils (%) (Auto) 3.4 % (0.0-3.0) H Basophils (%) (Auto) 0.9 % (0.0-2.0) Prothrombin Time 11.9 SEC (9.30-11.50) H Prothromb Time International Ratio 1.1 (0.9-1.1) Activated Partial Thromboplast Time 28 SEC (23-33) Sodium Level 148 MMOL/L (136-145) H Potassium Level 4.2 MMOL/L (3.5-5.1) Chloride Level 113 MMOL/L (98-107) H Carbon Dioxide Level 28 MMOL/L (21-32) Anion Gap 7 mmol/L (5-15) Blood Urea Nitrogen 46 mg/dL (7-18) H Creatinine 1.2 MG/DL (0.55-1.30) Estimat Glomerular Filtration Rate mL/min (>60) Glucose Level 153 MG/DL (74-106) H Calcium Level 9.1 MG/DL (8.5-10.1) Phosphorus Level 3.0 MG/DL (2.5-4.9) Magnesium Level 1.7 MG/DL (1.8-2.4) L Total Bilirubin 0.6 MG/DL (0.2-1.0) Aspartate Amino Transf (AST/SGOT) 23 U/L (15-37) Alanine Aminotransferase (ALT/SGPT) 8 U/L (12-78) L Alkaline Phosphatase 90 U/L (46-116) Total Protein 7.1 G/DL (6.4-8.2) Albumin 1.9 G/DL (3.4-5.0) L Globulin 5.2 g/dL Albumin/Globulin Ratio 0.4 (1.0-2.7) L Tony Springer MD Jun 09, 2019 10:34
--- NOTE | 2019-06-09 10:42 | NUR ---
NURSE NOTES: dr gunter made aware that patient is for dc today if cleared by ID. awaits callback.
--- NOTE | 2019-06-09 11:52 | Pre-Procedure Note/Attestation ---
Pre-Procedure Note/Attestation Complete Prior to Procedure Planned Procedure: not applicable Procedure Narrative: egd Indications for Procedure Pre-Operative Diagnosis: GIB Attestation I attest that I discussed the nature of the procedure; its benefits; risks and complications; and alternatives (and the risks and benefits of such alternatives ), prior to the procedure, with the patient (or the patient's legal patient access representative). I attest that, if there was a reasonable possibility of needing a blood transfusion, the patient (or the patient's legal patient access representative) was given the [facility] standardized written summary, pursuant to the Romulo Murali Blood Safety Act ([place] Health and Safety Code # 1645, as amended). I attest that I re-evaluated the patient just prior to the surgery and that there has been no change in the patient's H&P, except as documented below: Darron Gentile MD Jun 09, 2019 11:52
[2019-06-09] MEDS ORDERED: NS 500ML IVPB ONE (12:05)
--- NOTE | 2019-06-09 12:10 | Infectious Diseases Prog Note ---
Assessment/Plan Assessment/Plan Assessment: Sepsis -likely 2ry to PNA -06/07 CXR: Bilateral infiltrates versus pulmonary edema. No interval change -06/04 CXR: Bilateral mixed interstitial and alveolar airspace opacities, slightly increased compared to the prior exam of 05/20/2019. Findings may be related to pulmonary edema and/or multifocal pneumonia. Clinical correlation/ follow-up recommended. Tracheostomy and gastrostomy tubes noted. -sp cx GNB #1, #2 -u/a no pyuria Gram positive bacteremia- likely contaminant -06/04 Bcvx 1/4 Bacillus sp (not anthracis); 06/06 Bcx NTD Low grade fever, SP Leukocytosis, SP Hx of PNA -05/18 sp cx S. maltophila (S Levaquin, bactrim), MDR P stuartii (S Ceftriaxone , Ertapenem) HTN CVA with hemiplegia and is now not verbal CKD CAD Dm2 chronic resp failure s/p trach/vent dependant dysphagia s/p PEG PNA pHTN [facility] nonverbal SN[facility] resident Plan: -D/c empiric IV Vancomycin #6 -Continue empiric Meropenem #5 and Levaquin #5 given prior S. maltophila in sputum cx pending sputum cx -06/05 SP Zosyn #2 -05/20 SP Zosyn #3 -05/18 SP IV Vancomycin #3 -04/28/19 SP Cefepime #6 -04/22 SP Meropenem #5 -04/20 SP Vancomycin #8 - 04/18/19 S/P Cefepime #6 -f/u cx -Monitor CBC/CMP, temperatures -trach/peg/ICU care -aspiration precautions -f.u repeat Bcx Thank you for this consultation. Will continue to follow along with you. Discussed with RN. Subjective Allergies: Coded Allergies: No Known Allergies (Unverified , 04/12/19) Subjective afebrile no leuokocytosis repeat Bcx NTD Objective Vital Signs Last 24 Hour Vital Signs Date Time Temp Pulse Resp B/P (MAP) Pulse Ox O2 Delivery O2 Flow Rate FiO2 06/09/19 11:33 184/93 06/09/19 11:31 97.9 71 16 184/93 (123) 97 06/09/19 09:10 68 179/94 06/09/19 08:55 68 16 30 06/09/19 08:00 Mechanical Ventilator 06/09/19 08:00 98.1 70 16 179/94 (122) 100 06/09/19 08:00 30 06/09/19 07:47 68 06/09/19 06:45 70 16 30 06/09/19 05:04 73 16 30 06/09/19 04:00 99.0 74 16 179/95 (123) 98 06/09/19 04:00 30 06/09/19 04:00 Mechanical Ventilator 06/09/19 03:34 69 06/09/19 03:34 69 06/09/19 02:58 65 16 30 06/09/19 02:09 99.2 69 20 165/97 (119) 98 06/09/19 00:52 74 16 30 06/09/19 00:00 30 06/09/19 00:00 Mechanical Ventilator 06/09/19 00:00 99.2 69 20 165/97 (119) 98 06/08/19 22:50 78 16 30 06/08/19 21:14 65 16 30 06/08/19 20:25 72 171/87 06/08/19 20:00 98.6 71 20 171/87 (115) 98 06/08/19 20:00 Mechanical Ventilator 06/08/19 20:00 30 06/08/19 19:03 72 06/08/19 18:38 68 20 30 06/08/19 16:59 77 16 30 06/08/19 16:00 Mechanical Ventilator 06/08/19 16:00 99.1 72 20 157/87 (110) 98 06/08/19 16:00 30 06/08/19 15:09 70 06/08/19 15:00 78 22 30 06/08/19 12:34 65 16 30 Height (Feet): 5 Height (Inches): 5.00 Weight (Pounds): 200 Objective GENERAL: Trach, vent, altered, lethargic in bed, nonverbal. CARDIOVASCULAR: No murmurs. LUNGS: Poor air exchange. ABDOMEN: Bowel sounds distant. EXTREMITIES: No cyanosis, clubbing, or edema. NEUROLOGIC: The patient is flaccid in bed, not really following directions. Microbiology Date/Time Source Procedure Growth Status 06/07/19 00:15 Sputum Gram Stain - Final Resulted 06/07/19 00:15 Sputum Culture - Preliminary Gram Negative Bacillus 1 Gram Negative Bacillus 2 Resulted Laboratory Tests Test 06/09/19 03:35 White Blood Count 8.3 K/UL (4.8-10.8) Red Blood Count 2.90 M/UL (4.20-5.40) L Hemoglobin 8.5 G/DL (12.0-16.0) L Hematocrit 28.4 % (37.0-47.0) L Mean Corpuscular Volume 98 FL (80-99) Mean Corpuscular Hemoglobin 29.4 PG (27.0-31.0) Mean Corpuscular Hemoglobin Concent 30.0 G/DL (32.0-36.0) L Red Cell Distribution Width 22.6 % (11.6-14.8) H Platelet Count 179 K/UL (150-450) Mean Platelet Volume 7.1 FL (6.5-10.1) Neutrophils (%) (Auto) 52.2 % (45.0-75.0) Lymphocytes (%) (Auto) 38.1 % (20.0-45.0) Monocytes (%) (Auto) 5.5 % (1.0-10.0) Eosinophils (%) (Auto) 3.4 % (0.0-3.0) H Basophils (%) (Auto) 0.9 % (0.0-2.0) Prothrombin Time 11.9 SEC (9.30-11.50) H Prothromb Time International Ratio 1.1 (0.9-1.1) Activated Partial Thromboplast Time 28 SEC (23-33) Sodium Level 148 MMOL/L (136-145) H Potassium Level 4.2 MMOL/L (3.5-5.1) Chloride Level 113 MMOL/L (98-107) H Carbon Dioxide Level 28 MMOL/L (21-32) Anion Gap 7 mmol/L (5-15) Blood Urea Nitrogen 46 mg/dL (7-18) H Creatinine 1.2 MG/DL (0.55-1.30) Estimat Glomerular Filtration Rate mL/min (>60) Glucose Level 153 MG/DL (74-106) H Calcium Level 9.1 MG/DL (8.5-10.1) Phosphorus Level 3.0 MG/DL (2.5-4.9) Magnesium Level 1.7 MG/DL (1.8-2.4) L Total Bilirubin 0.6 MG/DL (0.2-1.0) Aspartate Amino Transf (AST/SGOT) 23 U/L (15-37) Alanine Aminotransferase (ALT/SGPT) 8 U/L (12-78) L Alkaline Phosphatase 90 U/L (46-116) Total Protein 7.1 G/DL (6.4-8.2) Albumin 1.9 G/DL (3.4-5.0) L Globulin 5.2 g/dL Albumin/Globulin Ratio 0.4 (1.0-2.7) L Current Medications Medications (Trade) Dose Ordered Sig/Kenisha Route PRN Reason Start Time Stop Time Status Last Admin Dose Admin Acetaminophen (Tylenol) 650 mg Q4H PRN ORAL FEVER (temp>100.5 F) 06/06/19 13:30 07/04/19 13:29 Albuterol/ Ipratropium (Albuterol/ Ipratropium) 3 ml Q4H PRN HHN Shortness of Breath 06/06/19 13:30 06/09/19 13:29 Clonidine HCl (Catapres Tab) 0.1 mg Q6H PRN ORAL For High Blood Pressure 06/09/19 08:00 07/09/19 07:59 06/09/19 11:33 Dextrose (Dextrose 50%) 25 ml Q30M PRN IV Hypoglycemia 06/06/19 13:30 07/04/19 15:21 Dextrose (Dextrose 50%) 50 ml Q30M PRN IV hypoglycemia 06/06/19 13:30 07/04/19 15:29 Furosemide (Lasix) 40 mg DAILY IV 06/10/19 09:00 07/04/19 20:59 Heparin Sodium (Porcine) (Heparin 5000 units/ml) 5,000 units EVERY 12 HOURS SUBQ 06/06/19 21:00 07/04/19 20:59 Levofloxacin (Levaquin) 750 mg EVERY OTHER DAY GT 06/07/19 09:00 06/12/19 12:59 06/09/19 09:11 Lorazepam (Ativan 2mg/ml 1ml) 2 mg Q2H PRN IV For Anxiety 06/06/19 13:30 06/11/19 13:29 06/09/19 01:29 Magnesium Sulfate 100 ml @ 100 mls/hr Q1H IVPB 06/09/19 13:00 06/09/19 14:59 Meropenem 1 gm/ Sodium Chloride 55 ml @ 110 mls/hr Q12HR@0000,1200 IVPB 06/07/19 00:00 06/10/19 11:59 06/09/19 00:01 Metoprolol Tartrate (Lopressor) 25 mg EVERY 12 HOURS ORAL 06/06/19 21:00 07/04/19 20:59 06/09/19 09:10 Morphine Sulfate (Morphine Sulfate) 4 mg Q4H PRN IVP Severe Pain (Pain Scale 7-10) 06/06/19 13:30 06/11/19 13:29 Ondansetron HCl (Zofran) 4 mg Q6H PRN IVP Nausea & Vomiting 06/06/19 13:30 07/04/19 13:29 Pantoprazole (Protonix) 40 mg DAILY IV 06/07/19 09:00 07/05/19 08:59 06/08/19 08:59 Polyethylene Glycol (Miralax) 17 gm DAILYPRN PRN ORAL Constipation 06/06/19 13:30 07/04/19 13:29 Potassium Chloride (K-Dur) 20 meq TWICE A DAY GT 06/07/19 18:00 07/07/19 17:59 06/08/19 18:19 Vancomycin HCl (Vanco rx to dose) 1 ea DAILY PRN MISC PER RX PROTOCOL 06/06/19 13:30 07/06/19 13:29 Vancomycin HCl 1 gm/Dextrose 275 ml @ 183.3 mls/ hr Q24H IVPB 06/06/19 13:00 06/11/19 12:59 06/08/19 13:39 Cora Baer M.D. Jun 09, 2019 12:10
--- NOTE | 2019-06-09 12:16 | NUR ---
NURSE NOTES: dr gunter called back and patient is clear for dc and to continue merrem 1g Q12H and levaquin 750 GT QOD.will continue to monitor.
--- NOTE | 2019-06-09 12:36 | Immediate Post-Op Evaluation ---
Immediate Post-Op Evalulation Immediate Post-Op Evalulation Procedure: EGD Date of Evaluation: Jun 09, 2019 Time of Evaluation: 12:35 IV Fluids: 150 Blood Products: 0 Estimated Blood Loss: 0 Urinary Output: 0 Blood Pressure Systolic: 160 Blood Pressure Diastolic: 95 Pulse Rate: 68 Respiratory Rate: 15 O2 Sat by Pulse Oximetry: 100 Pain Score (1-10): 0 Nausea: No Vomiting: No Complications 0 Patient Status: no response - baseline, ventilated - trach in place, on mechanical [id number], none Hydration Status: adequate Drug: N/A Lisandra Dodge MD Jun 09, 2019 12:36
--- NOTE | 2019-06-09 12:37 | 48 Hour Post Anesthesia Eval ---
Post Anesthesia Evaluation Procedure: EGD Date of Evaluation: Jun 09, 2019 Airway: other - on mechanical ventilation Nausea: No Vomiting: No Pain Intensity: 0 Hydration Status: adequate Cardiopulmonary Status: at baseline Mental Status/LOC: patient returned to baseline Post-Anesthesia Complications: 0 Follow-up care needed: N/A - further care as per primary team Lisandra Dodge MD Jun 09, 2019 12:37
--- NOTE | 2019-06-09 12:39 | NUR ---
NURSE NOTES: Dr. Gentile resume feeding and increased feeding rate to 60cc/hr
--- NOTE | 2019-06-09 12:57 | NUR ---
NURSE NOTES: left a message to dr engle regarding patient BP of 188/97, that clonidine 0.1 was already given but not working for her. awaits callback.
--- NOTE | 2019-06-09 13:27 | Hematology/Onc Progress Note ---
Assessment/Plan Assessment/Plan Assessment/Plan: # Anemia of chronic disease likely multifactorial process, in the past has had anemia as well --> w/u reveals ferritin is >1500, esr and crp are elevated --> on abx at this time, ID recs as needed --> smear has been reviewed, no schistocytes noted --> monitor for bleed, transfuse with 1 unit 06/05 --> hgb goal >7 and transfuse as needed --> cea is 4.2 is wnl --> hgb 8.3-->8.2-->8.5 # Leukocytosis with Pulmonary infiltrates vs pulmonary edema hx of trach, had sepsis --> CXR: Excessive bilateral diffuse infiltrates versus edema, increased from prior study of 05/05/2019 --> on annmarie and vanc iv abx --> imaging has been reviewed # REMY on CKD --> per renal recs # Recent PNA --> s/p abx with Rx # HyperGlycemia / DM 24 H urine protein check 2.4 gram --> dm management # 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 Greatly appreciate consultation. Subjective Respiratory: Denies: no symptoms, cough, shortness of breath, SOB with excertion, SOB at rest, sputum, wheezing, other Gastrointestinal/Abdominal: Denies: no symptoms, abdomen distended, abdominal pain, black stools, tarry stools, blood in stool, constipated, diarrhea, difficulty swallowing, nausea, poor appetite, poor fluid intake, rectal bleeding , vomiting, other Genitourinary: Denies: no symptoms, burning, discharge, frequency, flank pain, hematuria, incontinence, pain, urgency, other Neurologic/Psychiatric: Denies: no symptoms, anxiety, depressed, emotional problems, headache, numbness, paresthesia, pre-existing deficit, seizure, tingling, tremors, weakness, other Endocrine: Denies: no symptoms, excessive sweating, flushing, intolerance to cold, intolerance to heat, increased hunger, increased thirst, increased urine, unexplained weight gain, unexplained weight loss, other Allergies: Coded Allergies: No Known Allergies (Unverified , 04/12/19) Subjective 06/07: on trach, vent, remains altered, is off pressors, h/h reviewed 06/08: to go for egd tomorrow, labs reviewed, no f/c 06/09: egd done, results pending, no f/c, on gtube feeds Objective Objective Current Medications Medications (Trade) Dose Ordered Sig/Kenisha Route PRN Reason Start Time Stop Time Status Last Admin Dose Admin Acetaminophen (Tylenol) 650 mg Q4H PRN ORAL FEVER (temp>100.5 F) 06/06/19 13:30 07/04/19 13:29 Albuterol/ Ipratropium (Albuterol/ Ipratropium) 3 ml Q4H PRN HHN Shortness of Breath 06/06/19 13:30 06/09/19 13:29 Clonidine HCl (Catapres Tab) 0.1 mg Q6H PRN ORAL For High Blood Pressure 06/09/19 08:00 07/09/19 07:59 06/09/19 11:33 Dextrose (Dextrose 50%) 25 ml Q30M PRN IV Hypoglycemia 06/06/19 13:30 07/04/19 15:21 Dextrose (Dextrose 50%) 50 ml Q30M PRN IV hypoglycemia 06/06/19 13:30 07/04/19 15:29 Furosemide (Lasix) 40 mg DAILY IV 06/10/19 09:00 07/04/19 20:59 Heparin Sodium (Porcine) (Heparin 5000 units/ml) 5,000 units EVERY 12 HOURS SUBQ 06/06/19 21:00 07/04/19 20:59 Levofloxacin (Levaquin) 750 mg EVERY OTHER DAY GT 06/07/19 09:00 06/12/19 12:59 06/09/19 09:11 Lorazepam (Ativan 2mg/ml 1ml) 2 mg Q2H PRN IV For Anxiety 06/06/19 13:30 06/11/19 13:29 06/09/19 01:29 Magnesium Sulfate 100 ml @ 100 mls/hr Q1H IVPB 06/09/19 13:00 06/09/19 14:59 06/09/19 12:44 Meropenem 1 gm/ Sodium Chloride 55 ml @ 110 mls/hr Q12HR@0000,1200 IVPB 06/07/19 00:00 06/10/19 11:59 06/09/19 13:14 Metoprolol Tartrate (Lopressor) 25 mg EVERY 12 HOURS ORAL 06/06/19 21:00 07/04/19 20:59 06/09/19 09:10 Morphine Sulfate (Morphine Sulfate) 4 mg Q4H PRN IVP Severe Pain (Pain Scale 7-10) 06/06/19 13:30 06/11/19 13:29 Ondansetron HCl (Zofran) 4 mg Q6H PRN IVP Nausea & Vomiting 06/06/19 13:30 07/04/19 13:29 Pantoprazole (Protonix) 40 mg DAILY IV 06/07/19 09:00 07/05/19 08:59 06/08/19 08:59 Polyethylene Glycol (Miralax) 17 gm DAILYPRN PRN ORAL Constipation 06/06/19 13:30 07/04/19 13:29 Potassium Chloride (K-Dur) 20 meq TWICE A DAY GT 06/07/19 18:00 07/07/19 17:59 06/08/19 18:19 Last 24 Hour Vital Signs Date Time Temp Pulse Resp B/P (MAP) Pulse Ox O2 Delivery O2 Flow Rate FiO2 06/09/19 12:45 78 18 30 06/09/19 12:36 68 15 100 06/09/19 12:00 30 06/09/19 12:00 Mechanical Ventilator 06/09/19 11:34 71 06/09/19 11:33 184/93 06/09/19 11:31 97.9 71 16 184/93 (123) 97 06/09/19 11:00 70 16 30 06/09/19 09:10 68 179/94 06/09/19 08:55 68 16 30 06/09/19 08:00 Mechanical Ventilator 06/09/19 08:00 98.1 70 16 179/94 (122) 100 06/09/19 08:00 30 06/09/19 07:47 68 06/09/19 06:45 70 16 30 06/09/19 05:04 73 16 30 06/09/19 04:00 99.0 74 16 179/95 (123) 98 06/09/19 04:00 30 06/09/19 04:00 Mechanical Ventilator 06/09/19 03:34 69 06/09/19 03:34 69 06/09/19 02:58 65 16 30 06/09/19 02:09 99.2 69 20 165/97 (119) 98 06/09/19 00:52 74 16 30 06/09/19 00:00 30 06/09/19 00:00 Mechanical Ventilator 06/09/19 00:00 99.2 69 20 165/97 (119) 98 06/08/19 22:50 78 16 30 06/08/19 21:14 65 16 30 06/08/19 20:25 72 171/87 06/08/19 20:00 98.6 71 20 171/87 (115) 98 06/08/19 20:00 Mechanical Ventilator 06/08/19 20:00 30 06/08/19 19:03 72 06/08/19 18:38 68 20 30 06/08/19 16:59 77 16 30 06/08/19 16:00 Mechanical Ventilator 06/08/19 16:00 99.1 72 20 157/87 (110) 98 06/08/19 16:00 30 06/08/19 15:09 70 06/08/19 15:00 78 22 30 06/08/19 12:34 65 16 30 06/08/19 12:00 99.3 72 21 163/93 (116) 99 06/08/19 12:00 Mechanical Ventilator 06/08/19 12:00 30 06/08/19 11:45 71 06/08/19 10:52 68 16 30 06/08/19 09:08 71 19 30 06/08/19 09:00 76 167/89 06/08/19 08:00 30 06/08/19 08:00 99.5 76 20 167/89 (115) 98 06/08/19 08:00 Mechanical Ventilator 06/08/19 07:54 69 06/08/19 07:11 71 17 30 06/08/19 05:16 74 16 30 06/08/19 04:00 30 06/08/19 04:00 Mechanical Ventilator 06/08/19 04:00 97.3 70 17 165/92 (116) 96 06/08/19 03:34 79 06/08/19 03:20 60 16 30 06/08/19 01:09 70 16 30 06/08/19 00:00 98.4 72 20 165/86 (112) 97 06/08/19 00:00 Mechanical Ventilator 06/08/19 00:00 70 06/07/19 22:30 70 17 30 06/07/19 21:03 72 16 30 06/07/19 20:31 81 162/95 06/07/19 20:00 98.2 75 17 162/95 (117) 97 06/07/19 20:00 76 06/07/19 20:00 Mechanical Ventilator 06/07/19 20:00 30 06/07/19 18:30 78 17 30 06/07/19 17:09 74 16 30 06/07/19 16:00 97.5 79 16 154/94 (114) 95 06/07/19 16:00 30 06/07/19 16:00 79 06/07/19 16:00 Mechanical Ventilator 06/07/19 14:37 67 16 30 Intake and Output 06/08/19 06/09/19 19:00 07:00 Intake Total 610 ml 205 ml Output Total 400 ml 300 ml Balance 210 ml -95 ml Free Water 250 ml IV Total 55 ml Tube Feeding 360 ml 150 ml Output Urine Total 400 ml 300 ml # Bowel Movements 2 1 Labs Test 06/07/19 02:00 06/07/19 03:20 06/07/19 07:40 06/07/19 12:10 Stool Occult Blood Positive (NEGATIVE) White Blood Count 7.6 K/UL (4.8-10.8) Red Blood Count 2.86 M/UL (4.20-5.40) Hemoglobin 8.3 G/DL (12.0-16.0) Hematocrit 27.7 % (37.0-47.0) Mean Corpuscular Volume 97 FL (80-99) Mean Corpuscular Hemoglobin 29.2 PG (27.0-31.0) Mean Corpuscular Hemoglobin Concent 30.1 G/DL (32.0-36.0) Red Cell Distribution Width 22.7 % (11.6-14.8) Platelet Count 155 K/UL (150-450) Mean Platelet Volume 6.9 FL (6.5-10.1) Neutrophils (%) (Auto) 61.4 % (45.0-75.0) Lymphocytes (%) (Auto) 28.4 % (20.0-45.0) Monocytes (%) (Auto) 5.5 % (1.0-10.0) Eosinophils (%) (Auto) 3.5 % (0.0-3.0) Basophils (%) (Auto) 1.2 % (0.0-2.0) Sodium Level 149 MMOL/L (136-145) Potassium Level 3.5 MMOL/L (3.5-5.1) Chloride Level 112 MMOL/L (98-107) Carbon Dioxide Level 26 MMOL/L (21-32) Anion Gap 11 mmol/L (5-15) Blood Urea Nitrogen 51 mg/dL (7-18) Creatinine 1.2 MG/DL (0.55-1.30) Estimat Glomerular Filtration Rate mL/min (>60) Glucose Level 143 MG/DL (74-106) Calcium Level 8.9 MG/DL (8.5-10.1) Phosphorus Level 3.8 MG/DL (2.5-4.9) Magnesium Level 2.1 MG/DL (1.8-2.4) Total Bilirubin 0.5 MG/DL (0.2-1.0) Aspartate Amino Transf (AST/SGOT) 20 U/L (15-37) Alanine Aminotransferase (ALT/SGPT) 8 U/L (12-78) Alkaline Phosphatase 87 U/L (46-116) Total Protein 6.8 G/DL (6.4-8.2) Albumin 1.7 G/DL (3.4-5.0) Globulin 5.1 g/dL Albumin/Globulin Ratio 0.3 (1.0-2.7) Arterial Blood pH 7.427 (7.350-7.450) Arterial Blood Partial Pressure CO2 38.2 mmHg (35.0-45.0) Arterial Blood Partial Pressure O2 109.3 mmHg (75.0-100.0) Arterial Blood HCO3 24.6 mmol/L (22.0-26.0) Arterial Blood Oxygen Saturation 97.8 % (95-100) Arterial Blood Base Excess 0.3 (-2-2) Marlo Test Positive Vancomycin Level Trough 17.2 ug/mL (5.0-12.0) Test 06/08/19 03:10 06/09/19 03:35 White Blood Count 7.4 K/UL (4.8-10.8) 8.3 K/UL (4.8-10.8) Red Blood Count 2.78 M/UL (4.20-5.40) 2.90 M/UL (4.20-5.40) Hemoglobin 8.2 G/DL (12.0-16.0) 8.5 G/DL (12.0-16.0) Hematocrit 27.1 % (37.0-47.0) 28.4 % (37.0-47.0) Mean Corpuscular Volume 98 FL (80-99) 98 FL (80-99) Mean Corpuscular Hemoglobin 29.6 PG (27.0-31.0) 29.4 PG (27.0-31.0) Mean Corpuscular Hemoglobin Concent 30.3 G/DL (32.0-36.0) 30.0 G/DL (32.0-36.0) Red Cell Distribution Width 22.4 % (11.6-14.8) 22.6 % (11.6-14.8) Platelet Count 181 K/UL (150-450) 179 K/UL (150-450) Mean Platelet Volume 7.0 FL (6.5-10.1) 7.1 FL (6.5-10.1) Neutrophils (%) (Auto) 53.1 % (45.0-75.0) 52.2 % (45.0-75.0) Lymphocytes (%) (Auto) 35.7 % (20.0-45.0) 38.1 % (20.0-45.0) Monocytes (%) (Auto) 6.6 % (1.0-10.0) 5.5 % (1.0-10.0) Eosinophils (%) (Auto) 3.4 % (0.0-3.0) 3.4 % (0.0-3.0) Basophils (%) (Auto) 1.1 % (0.0-2.0) 0.9 % (0.0-2.0) Sodium Level 149 MMOL/L (136-145) 148 MMOL/L (136-145) Potassium Level 3.7 MMOL/L (3.5-5.1) 4.2 MMOL/L (3.5-5.1) Chloride Level 113 MMOL/L (98-107) 113 MMOL/L (98-107) Carbon Dioxide Level 27 MMOL/L (21-32) 28 MMOL/L (21-32) Anion Gap 9 mmol/L (5-15) 7 mmol/L (5-15) Blood Urea Nitrogen 47 mg/dL (7-18) 46 mg/dL (7-18) Creatinine 1.2 MG/DL (0.55-1.30) 1.2 MG/DL (0.55-1.30) Estimat Glomerular Filtration Rate mL/min (>60) mL/min (>60) Glucose Level 190 MG/DL (74-106) 153 MG/DL (74-106) Calcium Level 8.7 MG/DL (8.5-10.1) 9.1 MG/DL (8.5-10.1) Prothrombin Time 11.9 SEC (9.30-11.50) Prothromb Time International Ratio 1.1 (0.9-1.1) Activated Partial Thromboplast Time 28 SEC (23-33) Phosphorus Level 3.0 MG/DL (2.5-4.9) Magnesium Level 1.7 MG/DL (1.8-2.4) Total Bilirubin 0.6 MG/DL (0.2-1.0) Aspartate Amino Transf (AST/SGOT) 23 U/L (15-37) Alanine Aminotransferase (ALT/SGPT) 8 U/L (12-78) Alkaline Phosphatase 90 U/L (46-116) Total Protein 7.1 G/DL (6.4-8.2) Albumin 1.9 G/DL (3.4-5.0) Globulin 5.2 g/dL Albumin/Globulin Ratio 0.4 (1.0-2.7) Height (Feet): 5 Height (Inches): 5.00 Weight (Pounds): 200 Objective HEAD AND NECK: No JVD. LUNGS: Decreased breath sounds. ++ Status post tracheostomy. CARDIOVASCULAR: Shows regular S1 and S2 with no gallop. ABDOMEN: Status post G-tube. EXTREMITIES: Have anasarca. Steven Norton MD Jun 09, 2019 13:27
--- NOTE | 2019-06-09 14:00 | NUR ---
NURSE NOTES: left a message to tank/direct care provider regarding patients discharge, per tank, she will inform loco.
[2019-06-09] MEDS ORDERED: Acetaminophen 650mg/20.3ml GT PRN (14:30)
[2019-06-09] MEDS ORDERED: Miralax 17gm pkt GT PRN (14:30)
--- NOTE | 2019-06-09 15:30 | NUR ---
NURSE NOTES: dr ramos called back and order to give 0.1 clonidine X1 dose for BP 188/97. will take note and carry out.
--- NOTE | 2019-06-09 16:30 | Procedure Note ---
DATE OF PROCEDURE: 06/09/2019 SURGEON: Darron Gentile M.D. REFERRING PHYSICIAN: Jama Keating D.O. PROCEDURE: Upper endoscopy with biopsy. ANESTHESIA: Per Dr. Levy. INSTRUMENT: Olympus adult flexible upper endoscope. INDICATION: GI bleeding. REASON FOR PROCEDURE: The procedure, risks, benefits, and possible consequences, including hemorrhage, aspiration, perforation and infection, and alternative treatments, were explained to the patient/legal guardian by Dr. Darron Gentile and the patient/legal guardian understood and accepted these risks. PROCEDURE IN DETAIL: After informed consent was obtained and the patient was adequately sedated, Olympus upper endoscope was advanced from the mouth into second portion of the duodenum and retroflexion was performed in the stomach. The patient had evidence of diffuse gastritis. Random biopsy from antrum of the stomach was obtained to rule out H. pylori infection. Otherwise, the rest of the upper endoscopic examination grossly looked within normal limits. There was no evidence of any active upper GI bleeding. SUMMARY OF FINDINGS: Gastritis, otherwise normal upper endoscopic examination. G-tube in place without any obvious bleeding on the G-tube site. RECOMMENDATIONS: 1. Follow pathology. 2. Resume diet. 3. Monitor labs. 4. Transfuse as needed. 5. PPI daily. I want to thank Dr. Jama Keating for this kind referral. Darron Gentile M.D. DR: LUZ JOB#: [id number] CC:
--- NOTE | 2019-06-09 16:37 | NUR ---
DISCHARGE PLANNING Discharge order noted Patient has been referred back to: [facility] [phone] Await Acceptance and Room Number
--- NOTE | 2019-06-09 17:43 | NUR ---
SPLITTER HEAD NOTES SPOKE WITH MITCHELL FROM [place], MOVING BEDS TO ACCOMMODATE PT'S ISOLATION. WILL CALL ME WHEN BED IS AVAILABLE.
--- NOTE | 2019-06-09 19:15 | NUR ---
HAND-OFF: Report given to marianne schmidt.
--- NOTE | 2019-06-09 19:15 | NUR ---
NURSE NOTES: received report from Jenn BURNETT, pt. is in bed awake- opens eyes- non-verbal, no signs or symptoms of acute cardiac or respiratory distress noted, bed in lowest position and call light within easy reach, bed alarm on, side rails up x's3 and safety brakes engaged, pt. appears to be tolerating current vent settings well - AC 16, TV 500, Fio2 @ 30% and peep of 5. G tube feeding running Jevity 1.2 @50cc/hr- no residual noted, Pure wick intact and draining to gravity, pt. appears to be clean and dry, Left upper chest IV intact and patent, safety measures continued, will continue with plan of care.
[2019-06-09] MEDS: Metoprolol 25mg tab GT SCH (20:24)
[2019-06-10] VITALS: BP 146/85
[2019-06-10 04:00] VITALS: BP 151/75
[2019-06-10 04:58] LABS: BASOPHILS % (AUTO) 0.9 % (0.0-2.0); EOSINOPHILS % (AUTO) 3.4 % (0.0-3.0); HEMATOCRIT 28.7 % (37.0-47.0); HEMOGLOBIN 8.7 G/DL (12.0-16.0); LYMPHOCYTES % (AUTO) 32.8 % (20.0-45.0); MEAN CORPUSCULAR VOLUME 99 FL (80-99); MONOCYTES % (AUTO) 5.5 % (1.0-10.0); NEUTROPHILS % (AUTO) 57.5 % (45.0-75.0); PLATELET COUNT 162 K/UL (150-450); RED BLOOD COUNT 2.91 M/UL (4.20-5.40); RED CELL DISTRIBUTION WIDTH 23.2 % (11.6-14.8)
[2019-06-10 05:42] LABS: ANION GAP 10 mmol/L (5-15); BLOOD UREA NITROGEN 42 mg/dL (7-18); CARBON DIOXIDE 25 MMOL/L (21-32); CHLORIDE 114 MMOL/L (98-107); CREATININE 1.2 MG/DL (0.55-1.30); POTASSIUM 4.3 MMOL/L (3.5-5.1); SODIUM 149 MMOL/L (136-145)
--- NOTE | 2019-06-10 07:15 | NUR ---
HAND-OFF: Report given to Jeremiah RN, pt. remains stable and no signs of distress noted.
--- NOTE | 2019-06-10 07:25 | NUR ---
NURSE NOTES: Received report from Sade BURNETT. Patient is awake and oriented x1. flat effect, nods head to simple questions. pupils 3mm, REKHA. Patient trach to vent: Portex 8, AC 16, TV 500, FiO2 33%, PEEP 5, sating 97%. Lungs diminished, trach secretions marin, thick. VS BP 160/82, HR 71, RR 18. Afebrile 98.2 ax. Abdomen round, soft. no bm at this time. G-tube is patent and intact, receiving Jevity 1.2 @ 60cc/hr, patient is tolerating well, no residuals. Bladder flat, Purewick is patent and draining light katja urine. IV site is Lt Upper chest 22g, patent and intact. 3+ pitting edema of upper extremities. Bed is locked, in lowest position, side rails up x3, bed alarm on, call light within reach. contact precaution in place. Will continue to monitor.
[2019-06-10 08:00] VITALS: BP 160/82
[2019-06-10] MEDS: Metoprolol 25mg tab GT SCH ×2 (08:45→20:08)
[2019-06-10] MEDS: Pantoprazole Inj IV SCH (08:46)
[2019-06-10] MEDS: Heparin 5000 units/ml inj SUBQ SCH ×2 (08:52→20:09)
--- NOTE | 2019-06-10 09:49 | GI Progress Note ---
Assessment/Plan Problems: (1) GI bleed ICD Codes: K92.2 - Gastrointestinal hemorrhage, unspecified SNOMED: 31034971 (2) Black tarry stools ICD Codes: K92.1 - Melena SNOMED: 594865157 (3) Severe sepsis ICD Codes: A41.9 - Sepsis, unspecified organism; R65.20 - Severe sepsis without septic shock SNOMED: 17196367 (4) G tube feedings ICD Codes: Z93.1 - Gastrostomy status SNOMED: 410507095, 260658912, 354831900 (5) Anemia in chronic kidney disease (CKD) ICD Codes: N18.9 - Chronic kidney disease, unspecified; D63.1 - Anemia in chronic kidney disease SNOMED: 526897304 Qualifiers: Qualified Codes: N18.2 - Chronic kidney disease, stage 2 (mild); D63.1 - Anemia in chronic kidney disease Status: stable Status Narrative Discussed with Dr. Gentile. Assessment/Plan SUMMARY OF FINDINGS: Gastritis, otherwise normal upper endoscopic examination. G-tube in place without any obvious bleeding on the G-tube site. RECOMMENDATIONS: 1. Follow pathology. 2. Resume diet. 3. Monitor labs. 4. Transfuse as needed. 5. PPI daily. 6. resume Plavix dc planning per primary The patient was seen and examined at bedside and all new and available data was reviewed in the patients chart. I agree with the above findings, impression and plan. (Patient seen earlier today. Signature stamp does not reflect patient encounter time.). - Darron Gentile MD Subjective Subjective limited Objective Last 24 Hour Vital Signs Date Time Temp Pulse Resp B/P (MAP) Pulse Ox O2 Delivery O2 Flow Rate FiO2 06/10/19 09:04 71 18 30 06/10/19 08:45 71 160/82 06/10/19 07:15 68 16 30 06/10/19 05:08 71 16 30 06/10/19 04:00 Mechanical Ventilator 06/10/19 04:00 75 06/10/19 04:00 30 06/10/19 04:00 98.9 81 17 151/75 (100) 94 06/10/19 03:01 61 16 30 06/10/19 01:29 70 17 30 06/10/19 00:00 98.4 65 16 146/85 (105) 98 06/10/19 00:00 30 06/10/19 00:00 Mechanical Ventilator 06/10/19 00:00 67 06/09/19 23:10 68 16 30 06/09/19 21:30 80 17 30 06/09/19 20:24 88 17 98 Mechanical Ventilator 30 06/09/19 20:24 82 152/79 06/09/19 20:00 98.0 82 18 151/79 (103) 96 06/09/19 20:00 75 06/09/19 20:00 Mechanical Ventilator 06/09/19 20:00 30 06/09/19 19:30 85 17 30 06/09/19 17:29 78 16 30 06/09/19 17:03 177/86 06/09/19 16:00 Mechanical Ventilator 06/09/19 16:00 97.9 65 16 177/86 (116) 98 06/09/19 16:00 65 06/09/19 16:00 30 06/09/19 15:13 76 16 30 06/09/19 14:30 188/97 06/09/19 12:45 78 18 30 06/09/19 12:36 68 15 100 06/09/19 12:00 30 06/09/19 12:00 Mechanical Ventilator 06/09/19 11:34 71 06/09/19 11:33 184/93 06/09/19 11:31 97.9 71 16 184/93 (123) 97 06/09/19 11:00 70 16 30 Intake and Output 06/09/19 06/10/19 19:00 07:00 Intake Total 690 ml 770 ml Output Total 1300 ml 375 ml Balance -610 ml 395 ml Free Water 80 ml 100 ml IV Total 310 ml 110 ml Tube Feeding 300 ml 560 ml Output Urine Total 1300 ml 375 ml # Bowel Movements 2 4 Laboratory Tests Test 06/10/19 03:11 White Blood Count 8.0 K/UL (4.8-10.8) Red Blood Count 2.91 M/UL (4.20-5.40) L Hemoglobin 8.7 G/DL (12.0-16.0) L Hematocrit 28.7 % (37.0-47.0) L Mean Corpuscular Volume 99 FL (80-99) Mean Corpuscular Hemoglobin 29.9 PG (27.0-31.0) Mean Corpuscular Hemoglobin Concent 30.2 G/DL (32.0-36.0) L Red Cell Distribution Width 23.2 % (11.6-14.8) H Platelet Count 162 K/UL (150-450) Mean Platelet Volume 7.2 FL (6.5-10.1) Neutrophils (%) (Auto) 57.5 % (45.0-75.0) Lymphocytes (%) (Auto) 32.8 % (20.0-45.0) Monocytes (%) (Auto) 5.5 % (1.0-10.0) Eosinophils (%) (Auto) 3.4 % (0.0-3.0) H Basophils (%) (Auto) 0.9 % (0.0-2.0) Sodium Level 149 MMOL/L (136-145) H Potassium Level 4.3 MMOL/L (3.5-5.1) Chloride Level 114 MMOL/L (98-107) H Carbon Dioxide Level 25 MMOL/L (21-32) Anion Gap 10 mmol/L (5-15) Blood Urea Nitrogen 42 mg/dL (7-18) H Creatinine 1.2 MG/DL (0.55-1.30) Estimat Glomerular Filtration Rate mL/min (>60) Glucose Level 195 MG/DL (74-106) H Calcium Level 9.0 MG/DL (8.5-10.1) Height (Feet): 5 Height (Inches): 5.00 Weight (Pounds): 199 General Appearance: WD/WN, no apparent distress, alert Cardiovascular: normal rate Respiratory/Chest: normal breath sounds, no respiratory distress Abdominal Exam: normal bowel sounds, non tender, soft Extremities: normal range of motion, non-tender Aron Torres NP Jun 10, 2019 09:49
--- NOTE | 2019-06-10 10:07 | Cardiology Progress Note ---
Assessment/Plan Status: stable Assessment/Plan Assessment/Plan Assessment/Plan 1. CHF Diastolic acute on chronic with BNP of 35,000. On Lasix 40 mg IV b.i.d. -> transition to per GT Monitor I/O and renal function Echo EF of 55% to 60%. 2. Hypertension. On Lopressor 25 bid and Lasix 40 IV daily 3. History of atrial flutter that self-terminated. No indication for ablation 4. Troponin leak and CAD with inferolateral T-wave inversion, levels flat and no CP. Could be due to severe anemia Hb 7.0. On Metoprolol 25 bid and Plavix Outpatient stress test when stable 5. Sepsis with elevated white count. On IV antibiotics. 6. Ventilator-dependent respiratory failure, status post tracheostomy on April. 7. Dysphagia, status post PEG tube on April 22, 2019. 8. History of CVA and hemiplegia. 9. Nonverbal status. 10. Anemia status post blood transfusion 06/05/19 Stool OB positive. EGD/Colonoscopy per Gi 11. Status post renal failure. BUN and creatinine is 15 and 1.3. 12. Lactic acidosis, likely due to sepsis. 13. Hypokalemia, Replaced -resolved 14. Hypernatremia -IV fluids/free water -Reduce lasix to daily Subjective Cardiovascular: Reports: no symptoms Respiratory: Reports: no symptoms Gastrointestinal/Abdominal: Reports: no symptoms Genitourinary: Reports: no symptoms Subjective Coverage for [place] No acute events, on PEEP, tolerating feeds, no fever, no distress, BP elevated Objective Last 24 Hour Vital Signs Date Time Temp Pulse Resp B/P (MAP) Pulse Ox O2 Delivery O2 Flow Rate FiO2 06/10/19 09:04 71 18 30 06/10/19 08:45 71 160/82 06/10/19 07:15 68 16 30 06/10/19 05:08 71 16 30 06/10/19 04:00 Mechanical Ventilator 06/10/19 04:00 75 06/10/19 04:00 30 06/10/19 04:00 98.9 81 17 151/75 (100) 94 06/10/19 03:01 61 16 30 06/10/19 01:29 70 17 30 06/10/19 00:00 98.4 65 16 146/85 (105) 98 06/10/19 00:00 30 06/10/19 00:00 Mechanical Ventilator 06/10/19 00:00 67 06/09/19 23:10 68 16 30 06/09/19 21:30 80 17 30 06/09/19 20:24 88 17 98 Mechanical Ventilator 30 06/09/19 20:24 82 152/79 06/09/19 20:00 98.0 82 18 151/79 (103) 96 06/09/19 20:00 75 06/09/19 20:00 Mechanical Ventilator 06/09/19 20:00 30 06/09/19 19:30 85 17 30 06/09/19 17:29 78 16 30 06/09/19 17:03 177/86 06/09/19 16:00 Mechanical Ventilator 06/09/19 16:00 97.9 65 16 177/86 (116) 98 06/09/19 16:00 65 06/09/19 16:00 30 06/09/19 15:13 76 16 30 06/09/19 14:30 188/97 06/09/19 12:45 78 18 30 06/09/19 12:36 68 15 100 06/09/19 12:00 30 06/09/19 12:00 Mechanical Ventilator 06/09/19 11:34 71 06/09/19 11:33 184/93 06/09/19 11:31 97.9 71 16 184/93 (123) 97 06/09/19 11:00 70 16 30 General Appearance: no apparent distress, alert EENT: PERRL/EOMI, normal ENT inspection, TMs normal, pharynx normal Neck: non-tender, normal alignment, supple, normal inspection, no JVD Rhythm: NSR Cardiovascular: normal peripheral pulses, normal rate, regular rhythm Respiratory/Chest: chest wall non-tender, lungs clear, normal breath sounds, no respiratory distress, no accessory muscle use Abdomen: normal bowel sounds, non tender, soft, no organomegaly, no mass Extremities: normal range of motion, non-tender Neurologic: manager coding II-XII grossly normal, no motor/sensory deficits Intake and Output 06/09/19 06/10/19 19:00 07:00 Intake Total 690 ml 770 ml Output Total 1300 ml 375 ml Balance -610 ml 395 ml Free Water 80 ml 100 ml IV Total 310 ml 110 ml Tube Feeding 300 ml 560 ml Output Urine Total 1300 ml 375 ml # Bowel Movements 2 4 Laboratory Tests Test 8/15/19 03:11 White Blood Count 8.0 K/UL (4.8-10.8) Red Blood Count 2.91 M/UL (4.20-5.40) L Hemoglobin 8.7 G/DL (12.0-16.0) L Hematocrit 28.7 % (37.0-47.0) L Mean Corpuscular Volume 99 FL (80-99) Mean Corpuscular Hemoglobin 29.9 PG (27.0-31.0) Mean Corpuscular Hemoglobin Concent 30.2 G/DL (32.0-36.0) L Red Cell Distribution Width 23.2 % (11.6-14.8) H Platelet Count 162 K/UL (150-450) Mean Platelet Volume 7.2 FL (6.5-10.1) Neutrophils (%) (Auto) 57.5 % (45.0-75.0) Lymphocytes (%) (Auto) 32.8 % (20.0-45.0) Monocytes (%) (Auto) 5.5 % (1.0-10.0) Eosinophils (%) (Auto) 3.4 % (0.0-3.0) H Basophils (%) (Auto) 0.9 % (0.0-2.0) Sodium Level 149 MMOL/L (136-145) H Potassium Level 4.3 MMOL/L (3.5-5.1) Chloride Level 114 MMOL/L (98-107) H Carbon Dioxide Level 25 MMOL/L (21-32) Anion Gap 10 mmol/L (5-15) Blood Urea Nitrogen 42 mg/dL (7-18) H Creatinine 1.2 MG/DL (0.55-1.30) Estimat Glomerular Filtration Rate mL/min (>60) Glucose Level 195 MG/DL (74-106) H Calcium Level 9.0 MG/DL (8.5-10.1) Gildardo Galeana MD Jun 10, 2019 10:07
--- NOTE | 2019-06-10 11:02 | Pulmonolgy Critical Care Note ---
Critical Care - Asmt/Plan Problems: (1) Acute and chronic respiratory failure (2) Nosocomial pneumonia (3) Acute metabolic encephalopathy (4) Anemia in chronic kidney disease (CKD) (5) Renal failure (ARF), acute on chronic (6) NSTEMI (non-ST elevated myocardial infarction) (7) G tube feedings (8) History of CVA (cerebrovascular accident) (9) CAD (coronary artery disease) (10) Right hemiplegia (11) Diabetes mellitus (12) Hypertensive heart disease Respiratory: monitor respiratory rate, adjust FIO2, CXR Cardiac: continue pressors, continue to monitor HR/BP Renal: F/U I&O, check electrolytes Infectious Disease: check cultures, continue antibiotics Gastrointestinal: continue feedings/current rate Endocrine: monitor blood sugar Hematologic: monitor H/H, transfuse if hgb<8.5 Neurologic: PRN Ativan, keep patient comfortable Prophylaxis: Protonix Disposition: keep in ICU Time Spent (Minutes): 40 Notes Reviewed: mother baby rn, cardio Discussed with: nurses, consultants, oil field casersenior case manager - Objective Last 24 Hour Vital Signs Date Time Temp Pulse Resp B/P (MAP) Pulse Ox O2 Delivery O2 Flow Rate FiO2 06/10/19 09:04 71 18 30 06/10/19 08:45 71 160/82 06/10/19 08:00 Mechanical Ventilator 06/10/19 07:15 68 16 30 06/10/19 05:08 71 16 30 06/10/19 04:00 Mechanical Ventilator 06/10/19 04:00 75 06/10/19 04:00 30 06/10/19 04:00 98.9 81 17 151/75 (100) 94 06/10/19 03:01 61 16 30 06/10/19 01:29 70 17 30 06/10/19 00:00 98.4 65 16 146/85 (105) 98 06/10/19 00:00 30 06/10/19 00:00 Mechanical Ventilator 06/10/19 00:00 67 06/09/19 23:10 68 16 30 06/09/19 21:30 80 17 30 06/09/19 20:24 88 17 98 Mechanical Ventilator 30 06/09/19 20:24 82 152/79 06/09/19 20:00 98.0 82 18 151/79 (103) 96 06/09/19 20:00 75 06/09/19 20:00 Mechanical Ventilator 06/09/19 20:00 30 06/09/19 19:30 85 17 30 06/09/19 17:29 78 16 30 06/09/19 17:03 177/86 06/09/19 16:00 Mechanical Ventilator 06/09/19 16:00 97.9 65 16 177/86 (116) 98 06/09/19 16:00 65 06/09/19 16:00 30 06/09/19 15:13 76 16 30 06/09/19 14:30 188/97 06/09/19 12:45 78 18 30 06/09/19 12:36 68 15 100 06/09/19 12:00 30 06/09/19 12:00 Mechanical Ventilator 06/09/19 11:34 71 06/09/19 11:33 184/93 06/09/19 11:31 97.9 71 16 184/93 (123) 97 Status: awake Condition: critical HEENT: atraumatic Lungs: clear Heart: HR/BP stable Abdomen: soft, non-tender, active bowel sounds Extremities: no C/C/E, edema Decubiti: location Critical Care - Subjective ROS Limited/Unobtainable: Yes Condition: critical EKG Rhythm: Sinus Rhythm FI02: 30 Vent Support Breath Rate: 16 Vent Support Mode: AC Vent Tidal Volume: 500 Sputum Amount: Scant PEEP: 5.0 PIP: 37 Tube Feeding Amount: 50 I&O: Intake and Output 06/09/19 06/10/19 19:00 07:00 Intake Total 690 ml 770 ml Output Total 1300 ml 375 ml Balance -610 ml 395 ml Free Water 80 ml 100 ml IV Total 310 ml 110 ml Tube Feeding 300 ml 560 ml Output Urine Total 1300 ml 375 ml # Bowel Movements 2 4 Labs: Laboratory Tests Test 06/10/19 03:11 White Blood Count 8.0 K/UL (4.8-10.8) Red Blood Count 2.91 M/UL (4.20-5.40) L Hemoglobin 8.7 G/DL (12.0-16.0) L Hematocrit 28.7 % (37.0-47.0) L Mean Corpuscular Volume 99 FL (80-99) Mean Corpuscular Hemoglobin 29.9 PG (27.0-31.0) Mean Corpuscular Hemoglobin Concent 30.2 G/DL (32.0-36.0) L Red Cell Distribution Width 23.2 % (11.6-14.8) H Platelet Count 162 K/UL (150-450) Mean Platelet Volume 7.2 FL (6.5-10.1) Neutrophils (%) (Auto) 57.5 % (45.0-75.0) Lymphocytes (%) (Auto) 32.8 % (20.0-45.0) Monocytes (%) (Auto) 5.5 % (1.0-10.0) Eosinophils (%) (Auto) 3.4 % (0.0-3.0) H Basophils (%) (Auto) 0.9 % (0.0-2.0) Sodium Level 149 MMOL/L (136-145) H Potassium Level 4.3 MMOL/L (3.5-5.1) Chloride Level 114 MMOL/L (98-107) H Carbon Dioxide Level 25 MMOL/L (21-32) Anion Gap 10 mmol/L (5-15) Blood Urea Nitrogen 42 mg/dL (7-18) H Creatinine 1.2 MG/DL (0.55-1.30) Estimat Glomerular Filtration Rate mL/min (>60) Glucose Level 195 MG/DL (74-106) H Calcium Level 9.0 MG/DL (8.5-10.1) Tony Springer MD Jun 10, 2019 11:01
--- NOTE | 2019-06-10 11:13 | Infectious Diseases Prog Note ---
Assessment/Plan Assessment/Plan Assessment: Sepsis -likely 2ry to PNA -06/07 CXR: Bilateral infiltrates versus pulmonary edema. No interval change -06/04 CXR: Bilateral mixed interstitial and alveolar airspace opacities, slightly increased compared to the prior exam of 05/20/2019. Findings may be related to pulmonary edema and/or multifocal pneumonia. Clinical correlation/ follow-up recommended. Tracheostomy and gastrostomy tubes noted. -sp cx S. 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 maltophila (S Levaquin, bactrim), MDR P stuartii (S Ceftriaxone , Ertapenem) HTN CVA with hemiplegia and is now not verbal CKD CAD Dm2 chronic resp failure s/p trach/vent dependant dysphagia s/p PEG PNA pHTN Aflutter nonverbal SNF resident Plan: -Continue empiric Meropenem #6/10 pending spcx -Switch Levaquin #6 to bactrim #1/7 for S. maltophila (Levaquin R) -06/09 SP IV Vancomycin #6 -06/05 SP Zosyn #2 -05/20 SP Zosyn #3 -05/18 SP IV Vancomycin #3 -04/28/19 SP Cefepime #6 -04/22 SP Meropenem #5 -04/20 SP Vancomycin #8 - 04/18/19 S/P Cefepime #6 -f/u cx -Monitor CBC/CMP, temperatures -trach/peg/ICU care -aspiration precautions -f.u repeat Bcx Thank you for this consultation. Will continue to follow along with you. Discussed with RN. Subjective Allergies: Coded Allergies: No Known Allergies (Unverified , 04/12/19) Subjective afebrile no leuokocytosis repeat Bcx NTD Objective Vital Signs Last 24 Hour Vital Signs Date Time Temp Pulse Resp B/P (MAP) Pulse Ox O2 Delivery O2 Flow Rate FiO2 06/10/19 09:04 71 18 30 06/10/19 08:45 71 160/82 06/10/19 08:00 Mechanical Ventilator 06/10/19 07:15 68 16 30 06/10/19 05:08 71 16 30 06/10/19 04:00 Mechanical Ventilator 06/10/19 04:00 75 06/10/19 04:00 30 06/10/19 04:00 98.9 81 17 151/75 (100) 94 06/10/19 03:01 61 16 30 06/10/19 01:29 70 17 30 06/10/19 00:00 98.4 65 16 146/85 (105) 98 06/10/19 00:00 30 06/10/19 00:00 Mechanical Ventilator 06/10/19 00:00 67 06/09/19 23:10 68 16 30 06/09/19 21:30 80 17 30 06/09/19 20:24 88 17 98 Mechanical Ventilator 30 06/09/19 20:24 82 152/79 06/09/19 20:00 98.0 82 18 151/79 (103) 96 06/09/19 20:00 75 06/09/19 20:00 Mechanical Ventilator 06/09/19 20:00 30 06/09/19 19:30 85 17 30 06/09/19 17:29 78 16 30 06/09/19 17:03 177/86 06/09/19 16:00 Mechanical Ventilator 06/09/19 16:00 97.9 65 16 177/86 (116) 98 06/09/19 16:00 65 06/09/19 16:00 30 06/09/19 15:13 76 16 30 06/09/19 14:30 188/97 06/09/19 12:45 78 18 30 06/09/19 12:36 68 15 100 06/09/19 12:00 30 06/09/19 12:00 Mechanical Ventilator 06/09/19 11:34 71 06/09/19 11:33 184/93 06/09/19 11:31 97.9 71 16 184/93 (123) 97 Height (Feet): 5 Height (Inches): 5.00 Weight (Pounds): 199 Objective GENERAL: Trach, vent, altered, lethargic in bed, nonverbal. CARDIOVASCULAR: No murmurs. LUNGS: Poor air exchange. ABDOMEN: Bowel sounds distant. EXTREMITIES: No cyanosis, clubbing, or edema. NEUROLOGIC: The patient is flaccid in bed, not really following directions. Laboratory Tests Test 06/10/19 03:11 White Blood Count 8.0 K/UL (4.8-10.8) Red Blood Count 2.91 M/UL (4.20-5.40) L Hemoglobin 8.7 G/DL (12.0-16.0) L Hematocrit 28.7 % (37.0-47.0) L Mean Corpuscular Volume 99 FL (80-99) Mean Corpuscular Hemoglobin 29.9 PG (27.0-31.0) Mean Corpuscular Hemoglobin Concent 30.2 G/DL (32.0-36.0) L Red Cell Distribution Width 23.2 % (11.6-14.8) H Platelet Count 162 K/UL (150-450) Mean Platelet Volume 7.2 FL (6.5-10.1) Neutrophils (%) (Auto) 57.5 % (45.0-75.0) Lymphocytes (%) (Auto) 32.8 % (20.0-45.0) Monocytes (%) (Auto) 5.5 % (1.0-10.0) Eosinophils (%) (Auto) 3.4 % (0.0-3.0) H Basophils (%) (Auto) 0.9 % (0.0-2.0) Sodium Level 149 MMOL/L (136-145) H Potassium Level 4.3 MMOL/L (3.5-5.1) Chloride Level 114 MMOL/L (98-107) H Carbon Dioxide Level 25 MMOL/L (21-32) Anion Gap 10 mmol/L (5-15) Blood Urea Nitrogen 42 mg/dL (7-18) H Creatinine 1.2 MG/DL (0.55-1.30) Estimat Glomerular Filtration Rate mL/min (>60) Glucose Level 195 MG/DL (74-106) H Calcium Level 9.0 MG/DL (8.5-10.1) Current Medications Medications (Trade) Dose Ordered Sig/Kenisha Route PRN Reason Start Time Stop Time Status Last Admin Dose Admin Acetaminophen (Tylenol) 650 mg Q4H PRN GT FEVER (temp>100.5 F) 06/09/19 14:30 07/04/19 13:29 Clonidine HCl (Catapres Tab) 0.1 mg Q6H PRN GT For High Blood Pressure 06/09/19 14:30 07/09/19 07:59 Dextrose (Dextrose 50%) 25 ml Q30M PRN IV Hypoglycemia 06/06/19 13:30 07/04/19 15:21 Dextrose (Dextrose 50%) 50 ml Q30M PRN IV hypoglycemia 06/06/19 13:30 07/04/19 15:29 Furosemide (Lasix) 40 mg DAILY IV 06/10/19 09:00 07/04/19 20:59 06/10/19 08:46 Heparin Sodium (Porcine) (Heparin 5000 units/ml) 5,000 units EVERY 12 HOURS SUBQ 06/06/19 21:00 07/04/19 20:59 06/10/19 08:52 Levofloxacin (Levaquin) 750 mg EVERY OTHER DAY GT 06/07/19 09:00 06/12/19 12:59 06/09/19 09:11 Lorazepam (Ativan 2mg/ml 1ml) 2 mg Q2H PRN IV For Anxiety 06/06/19 13:30 06/11/19 13:29 06/09/19 01:29 Meropenem 1 gm/ Sodium Chloride 55 ml @ 110 mls/hr Q12HR@0000,1200 IVPB 06/07/19 00:00 06/14/19 23:59 06/09/19 23:05 Metoprolol Tartrate (Lopressor) 25 mg EVERY 12 HOURS GT 06/09/19 21:00 07/04/19 20:59 06/10/19 08:45 Morphine Sulfate (Morphine Sulfate) 4 mg Q4H PRN IVP Severe Pain (Pain Scale 7-10) 06/06/19 13:30 06/11/19 13:29 Ondansetron HCl (Zofran) 4 mg Q6H PRN IVP Nausea & Vomiting 06/06/19 13:30 07/04/19 13:29 Pantoprazole (Protonix) 40 mg DAILY IV 06/07/19 09:00 07/05/19 08:59 06/10/19 08:46 Polyethylene Glycol (Miralax) 17 gm DAILYPRN PRN GT Constipation 06/09/19 14:30 07/04/19 13:29 Potassium Chloride (K-Dur) 20 meq TWICE A DAY GT 06/07/19 18:00 07/07/19 17:59 06/10/19 08:45 Cora Baer M.D. Jun 10, 2019 11:13
[2019-06-10 12:00] VITALS: BP 161/80
--- NOTE | 2019-06-10 12:00 | NUR ---
NURSE NOTES: Pt son is at bed side, given update on transfer status. Patient is awake and oriented x1. flat effect. Patient trach to vent: Portex 8, AC 16, TV 500, FiO2 33%, PEEP 5, sating 97%. Trach secretions marin, thick. VS BP 161/80, HR 65, RR 19. Afebrile 98.5 ax. Abdomen round, soft. no bm at this time. G-tube is patent receiving Jevity 1.2 @ 60cc/hr, no residuals. Purewick is patent and draining light katja urine. IV site is Lt Upper chest 22g, patent and intact. Bed is locked, in lowest position, side rails up x3, bed alarm on, call light within reach. contact precaution in place. Will continue to monitor.
[2019-06-10] MEDS: Meropenem 1 GM in NS 55 ML IVPB SCH ×2 (12:53→23:00)
[2019-06-10] MEDS: Bactrim Susp 20ml GT SCH ×2 (12:58→20:08)
--- NOTE | 2019-06-10 13:56 | NUR ---
*-* INSURANCE *-* UPDATED CLINICALS HAVE BEEN FAXED TO: [facility] P:[phone] F: [phone] (FAX CLINICALS)
--- NOTE | 2019-06-10 13:56 | NUR ---
LAST REPAIRERLOCK SETTER SI: HYPERNATREMIA, HYPERCHLOREMIA, LEUKOCYTOSIS, ACUTE RENAL FAILURE T. 98.9 HR 81 RR 17 B/P 151/75 AC 16 TV 500 FIO2 30% PEEP 5 NA 149 CHLORIDE 114 BUN 42 GLUCOSE 195 RBC 2.91 EOS% 3.4 IS: K-DUR GT BACTRIM GT METROPOLOL GT MEROPENEM IV LASIX IV PROTONIX IV STEP DOWN STATUS
--- NOTE | 2019-06-10 14:12 | NUR ---
NEW CAR DRIVER NOTES SPOKE WITH MITCHELL FROM [facility], UNABLE TO ACCEPT PT BACK AT THIS TIME DO TO ISOLATION. SPOKE WITH WARREN FROM [facility] MADE AWARE OF THE BARRIERS TO DC. WILL SPOKE WITH ROSLYN AT [facility], THEY ARE CURRENTLY TRYING TO MAKE ROOM CHANGES TO ACCOMMODATE PT. ROOM MAYBE AVAILABLE TODAY OR TOMORROW. WILL FOLLOW UP.
--- NOTE | 2019-06-10 14:33 | Hematology/Onc Progress Note ---
Assessment/Plan Assessment/Plan Assessment/Plan: # Anemia of chronic disease likely multifactorial process, in the past has had anemia as well --> w/u reveals ferritin is >1500, esr and crp are elevated --> on abx at this time, ID recs as needed --> smear has been reviewed, no schistocytes noted --> monitor for bleed, transfuse with 1 unit 06/05 --> hgb goal >7 and transfuse as needed --> cea is 4.2 is wnl --> hgb 8.3-->8.2-->8.5->8.7 # Leukocytosis with Pulmonary infiltrates vs pulmonary edema hx of trach, had sepsis --> CXR: Excessive bilateral diffuse infiltrates versus edema, increased from prior study of 05/05/2019 --> on annmarie and vanc iv abx --> imaging has been reviewed # REMY on CKD --> per renal recs # Recent PNA --> s/p abx with Rx # HyperGlycemia / DM 24 H urine protein check 2.4 gram --> dm management # 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 Greatly appreciate consultation. Subjective Constitutional: Denies: no symptoms, chills, fever, malaise, weakness, other HEENT: Denies: no symptoms, eye pain, blurred vision, tearing, double vision, ear pain, ear discharge, nose pain, nose congestion, throat pain, throat swelling, mouth pain, mouth swelling, other Cardiovascular: Denies: no symptoms, chest pain, edema, irregular heart rate, lightheadedness, palpitations, syncope, other Respiratory: Denies: no symptoms, cough, shortness of breath, SOB with excertion, SOB at rest, sputum, wheezing, other Gastrointestinal/Abdominal: Denies: no symptoms, abdomen distended, abdominal pain, black stools, tarry stools, blood in stool, constipated, diarrhea, difficulty swallowing, nausea, poor appetite, poor fluid intake, rectal bleeding , vomiting, other Allergies: Coded Allergies: No Known Allergies (Unverified , 04/12/19) Subjective 06/07: on trach, vent, remains altered, is off pressors, h/h reviewed 06/08: to go for egd tomorrow, labs reviewed, no f/c 06/09: egd done, results pending, no f/c, on gtube feeds 06/10: remains on gtube feeds, is alert and oriented x1, pending placement Objective Objective Current Medications Medications (Trade) Dose Ordered Sig/Kenisha Route PRN Reason Start Time Stop Time Status Last Admin Dose Admin Acetaminophen (Tylenol) 650 mg Q4H PRN GT FEVER (temp>100.5 F) 06/09/19 14:30 07/04/19 13:29 Clonidine HCl (Catapres Tab) 0.1 mg Q6H PRN GT For High Blood Pressure 06/09/19 14:30 07/09/19 07:59 Dextrose (Dextrose 50%) 25 ml Q30M PRN IV Hypoglycemia 06/06/19 13:30 07/04/19 15:21 Dextrose (Dextrose 50%) 50 ml Q30M PRN IV hypoglycemia 06/06/19 13:30 07/04/19 15:29 Furosemide (Lasix) 40 mg DAILY IV 06/10/19 09:00 07/04/19 20:59 06/10/19 08:46 Heparin Sodium (Porcine) (Heparin 5000 units/ml) 5,000 units EVERY 12 HOURS SUBQ 06/06/19 21:00 07/04/19 20:59 06/10/19 08:52 Lorazepam (Ativan 2mg/ml 1ml) 2 mg Q2H PRN IV For Anxiety 06/06/19 13:30 06/11/19 13:29 06/09/19 01:29 Meropenem 1 gm/ Sodium Chloride 55 ml @ 110 mls/hr Q12HR@0000,1200 IVPB 06/07/19 00:00 06/14/19 23:59 06/10/19 12:53 Metoprolol Tartrate (Lopressor) 25 mg EVERY 12 HOURS GT 06/09/19 21:00 07/04/19 20:59 06/10/19 08:45 Morphine Sulfate (Morphine Sulfate) 4 mg Q4H PRN IVP Severe Pain (Pain Scale 7-10) 06/06/19 13:30 06/11/19 13:29 Ondansetron HCl (Zofran) 4 mg Q6H PRN IVP Nausea & Vomiting 06/06/19 13:30 07/04/19 13:29 Pantoprazole (Protonix) 40 mg DAILY IV 06/07/19 09:00 07/05/19 08:59 06/10/19 08:46 Polyethylene Glycol (Miralax) 17 gm DAILYPRN PRN GT Constipation 06/09/19 14:30 07/04/19 13:29 Potassium Chloride (K-Dur) 20 meq TWICE A DAY GT 06/07/19 18:00 07/07/19 17:59 06/10/19 08:45 Trimethoprim/ Sulfamethoxazole (Bactrim-DS) 20 ml EVERY 12 HOURS GT 06/10/19 12:00 06/17/19 11:59 06/10/19 12:58 Last 24 Hour Vital Signs Date Time Temp Pulse Resp B/P (MAP) Pulse Ox O2 Delivery O2 Flow Rate FiO2 06/10/19 12:59 74 17 30 06/10/19 12:25 63 16 30 06/10/19 12:00 98.5 65 19 161/80 (107) 97 06/10/19 12:00 Mechanical Ventilator 06/10/19 12:00 30 06/10/19 09:04 71 18 30 06/10/19 08:45 71 160/82 06/10/19 08:00 Mechanical Ventilator 06/10/19 08:00 98.2 71 18 160/82 (108) 97 06/10/19 08:00 30 06/10/19 07:37 70 06/10/19 07:15 68 16 30 06/10/19 05:08 71 16 30 06/10/19 04:00 Mechanical Ventilator 06/10/19 04:00 75 06/10/19 04:00 30 06/10/19 04:00 98.9 81 17 151/75 (100) 94 06/10/19 03:01 61 16 30 06/10/19 01:29 70 17 30 06/10/19 00:00 98.4 65 16 146/85 (105) 98 06/10/19 00:00 30 06/10/19 00:00 Mechanical Ventilator 06/10/19 00:00 67 06/09/19 23:10 68 16 30 06/09/19 21:30 80 17 30 06/09/19 20:24 88 17 98 Mechanical Ventilator 30 06/09/19 20:24 82 152/79 06/09/19 20:00 98.0 82 18 151/79 (103) 96 06/09/19 20:00 75 06/09/19 20:00 Mechanical Ventilator 06/09/19 20:00 30 06/09/19 19:30 85 17 30 06/09/19 17:29 78 16 30 06/09/19 17:03 177/86 06/09/19 16:00 Mechanical Ventilator 06/09/19 16:00 97.9 65 16 177/86 (116) 98 06/09/19 16:00 65 06/09/19 16:00 30 06/09/19 15:13 76 16 30 06/09/19 14:30 188/97 06/09/19 12:45 78 18 30 06/09/19 12:36 68 15 100 06/09/19 12:00 30 06/09/19 12:00 Mechanical Ventilator 06/09/19 11:34 71 06/09/19 11:33 184/93 06/09/19 11:31 97.9 71 16 184/93 (123) 97 06/09/19 11:00 70 16 30 06/09/19 09:10 68 179/94 06/09/19 08:55 68 16 30 06/09/19 08:00 Mechanical Ventilator 06/09/19 08:00 98.1 70 16 179/94 (122) 100 06/09/19 08:00 30 06/09/19 07:47 68 06/09/19 06:45 70 16 30 06/09/19 05:04 73 16 30 06/09/19 04:00 99.0 74 16 179/95 (123) 98 06/09/19 04:00 30 06/09/19 04:00 Mechanical Ventilator 06/09/19 03:34 69 06/09/19 03:34 69 06/09/19 02:58 65 16 30 06/09/19 02:09 99.2 69 20 165/97 (119) 98 06/09/19 00:52 74 16 30 06/09/19 00:00 30 06/09/19 00:00 Mechanical Ventilator 06/09/19 00:00 99.2 69 20 165/97 (119) 98 06/08/19 22:50 78 16 30 06/08/19 21:14 65 16 30 06/08/19 20:25 72 171/87 06/08/19 20:00 98.6 71 20 171/87 (115) 98 06/08/19 20:00 Mechanical Ventilator 06/08/19 20:00 30 06/08/19 19:03 72 06/08/19 18:38 68 20 30 06/08/19 16:59 77 16 30 06/08/19 16:00 Mechanical Ventilator 06/08/19 16:00 99.1 72 20 157/87 (110) 98 06/08/19 16:00 30 06/08/19 15:09 70 06/08/19 15:00 78 22 30 Intake and Output 06/09/19 06/10/19 19:00 07:00 Intake Total 690 ml 770 ml Output Total 1300 ml 375 ml Balance -610 ml 395 ml Free Water 80 ml 100 ml IV Total 310 ml 110 ml Tube Feeding 300 ml 560 ml Output Urine Total 1300 ml 375 ml # Bowel Movements 2 4 Labs Test 06/08/19 03:10 06/09/19 03:35 06/10/19 03:11 White Blood Count 7.4 K/UL (4.8-10.8) 8.3 K/UL (4.8-10.8) 8.0 K/UL (4.8-10.8) Red Blood Count 2.78 M/UL (4.20-5.40) 2.90 M/UL (4.20-5.40) 2.91 M/UL (4.20-5.40) Hemoglobin 8.2 G/DL (12.0-16.0) 8.5 G/DL (12.0-16.0) 8.7 G/DL (12.0-16.0) Hematocrit 27.1 % (37.0-47.0) 28.4 % (37.0-47.0) 28.7 % (37.0-47.0) Mean Corpuscular Volume 98 FL (80-99) 98 FL (80-99) 99 FL (80-99) Mean Corpuscular Hemoglobin 29.6 PG (27.0-31.0) 29.4 PG (27.0-31.0) 29.9 PG (27.0-31.0) Mean Corpuscular Hemoglobin Concent 30.3 G/DL (32.0-36.0) 30.0 G/DL (32.0-36.0) 30.2 G/DL (32.0-36.0) Red Cell Distribution Width 22.4 % (11.6-14.8) 22.6 % (11.6-14.8) 23.2 % (11.6-14.8) Platelet Count 181 K/UL (150-450) 179 K/UL (150-450) 162 K/UL (150-450) Mean Platelet Volume 7.0 FL (6.5-10.1) 7.1 FL (6.5-10.1) 7.2 FL (6.5-10.1) Neutrophils (%) (Auto) 53.1 % (45.0-75.0) 52.2 % (45.0-75.0) 57.5 % (45.0-75.0) Lymphocytes (%) (Auto) 35.7 % (20.0-45.0) 38.1 % (20.0-45.0) 32.8 % (20.0-45.0) Monocytes (%) (Auto) 6.6 % (1.0-10.0) 5.5 % (1.0-10.0) 5.5 % (1.0-10.0) Eosinophils (%) (Auto) 3.4 % (0.0-3.0) 3.4 % (0.0-3.0) 3.4 % (0.0-3.0) Basophils (%) (Auto) 1.1 % (0.0-2.0) 0.9 % (0.0-2.0) 0.9 % (0.0-2.0) Sodium Level 149 MMOL/L (136-145) 148 MMOL/L (136-145) 149 MMOL/L (136-145) Potassium Level 3.7 MMOL/L (3.5-5.1) 4.2 MMOL/L (3.5-5.1) 4.3 MMOL/L (3.5-5.1) Chloride Level 113 MMOL/L (98-107) 113 MMOL/L (98-107) 114 MMOL/L (98-107) Carbon Dioxide Level 27 MMOL/L (21-32) 28 MMOL/L (21-32) 25 MMOL/L (21-32) Anion Gap 9 mmol/L (5-15) 7 mmol/L (5-15) 10 mmol/L (5-15) Blood Urea Nitrogen 47 mg/dL (7-18) 46 mg/dL (7-18) 42 mg/dL (7-18) Creatinine 1.2 MG/DL (0.55-1.30) 1.2 MG/DL (0.55-1.30) 1.2 MG/DL (0.55-1.30) Estimat Glomerular Filtration Rate mL/min (>60) mL/min (>60) mL/min (>60) Glucose Level 190 MG/DL (74-106) 153 MG/DL (74-106) 195 MG/DL (74-106) Calcium Level 8.7 MG/DL (8.5-10.1) 9.1 MG/DL (8.5-10.1) 9.0 MG/DL (8.5-10.1) Prothrombin Time 11.9 SEC (9.30-11.50) Prothromb Time International Ratio 1.1 (0.9-1.1) Activated Partial Thromboplast Time 28 SEC (23-33) Phosphorus Level 3.0 MG/DL (2.5-4.9) Magnesium Level 1.7 MG/DL (1.8-2.4) Total Bilirubin 0.6 MG/DL (0.2-1.0) Aspartate Amino Transf (AST/SGOT) 23 U/L (15-37) Alanine Aminotransferase (ALT/SGPT) 8 U/L (12-78) Alkaline Phosphatase 90 U/L (46-116) Total Protein 7.1 G/DL (6.4-8.2) Albumin 1.9 G/DL (3.4-5.0) Globulin 5.2 g/dL Albumin/Globulin Ratio 0.4 (1.0-2.7) Height (Feet): 5 Height (Inches): 5.00 Weight (Pounds): 199 Objective HEAD AND NECK: No JVD. LUNGS: Decreased breath sounds. ++ Status post tracheostomy. CARDIOVASCULAR: Shows regular S1 and S2 with no gallop. ABDOMEN: Status post G-tube. EXTREMITIES: Have anasarca. Steven Norton MD Jun 10, 2019 14:33
--- NOTE | 2019-06-10 15:00 | NUR ---
NURSE NOTES: pt BP 169/78 HR68, Catapres 0.1mg given.
[2019-06-10 16:00] VITALS: BP 164/78
--- NOTE | 2019-06-10 16:00 | NUR ---
NURSE NOTES: Patient is awake. Patient trach to vent: Portex 8, AC 16, TV 500, FiO2 33%, PEEP 5, sating 97%. Trach secretions marin, thick. VS BP 164/78, HR 68, RR 18. Afebrile 98.9 ax. Abdomen round, soft. 1 small bm, dark brown. G-tube is patent receiving Jevity 1.2 @ 60cc/hr, no residuals, flush 100ml. Changed Purewick and draining light katja urine. IV TKO. pt cleaned and repositioned. Bed is locked, in lowest position. Contact precaution in place. Will continue to monitor.
--- NOTE | 2019-06-10 18:00 | NUR ---
NURSE NOTES: Pt appears uncomfortable, unable to comfort, body rigid, and frowning. Asked if pt in pain, blinked eyes several times. Morphine 4mg, 1ml IVP given per protocol. will continue to monitor.
--- NOTE | 2019-06-10 19:02 | NUR ---
HAND-OFF: Report given to Lindsay BURNETT. pt in no acute distress.
--- NOTE | 2019-06-10 19:10 | NUR ---
NURSE NOTES: received report from Jeremiah RN, pt. is in bed awake- opens eyes- non-verbal, no signs or symptoms of acute cardiac or respiratory distress noted, bed in lowest position and call light within easy reach, bed alarm on, side rails up x's3 and safety brakes locked in position, pt. appears to be tolerating current vent settings well - AC 16, TV 500, Fio2 @ 30% and peep of 5. G tube feeding running Jevity 1.2 @60cc/hr- no residual noted, Pure wick intact and suctioning well, pt. appears to be clean and dry, Left upper chest IV intact and patent, safety measures continued, will continue with plan of care.
--- NOTE | 2019-06-10 19:45 | NUR ---
RESPIRATORY NOTE: PT RECEIVED STABLE ON CMV WITH CURRENT VENT SETTINGS. AC/VC 16, 500,30%, +5. ALARMS ARE ON AND AUDIBLE. EXTERNAL ALARM IS ATTACHED AND OPERATIONAL. PT IS BEING VENTILATED VIA A SHILEY CUFFED # 8 TUBE. VENT CIRCUIT AND SX TUBING ARE SECURE AND OUT OF THE WAY. NO S/S OF RESPIRATORY DISTRESS NOTED AT THIS TIME. WILL CONTINUE TO MONITOR.
[2019-06-10 20:00] VITALS: BP 146/70
--- NOTE | 2019-06-10 22:28 | General Progress Note ---
Assessment/Plan Problem List: (1) CAD (coronary artery disease) ICD Codes: I25.10 - Atherosclerotic heart disease of [place] coronary artery without angina pectoris SNOMED: 13949659 (2) GI bleed ICD Codes: K92.2 - Gastrointestinal hemorrhage, unspecified SNOMED: 71320247 (3) Hypertensive heart disease ICD Codes: I11.9 - Hypertensive heart disease without heart failure SNOMED: 49089968 (4) Diabetes mellitus ICD Codes: E11.9 - Type 2 diabetes mellitus without complications SNOMED: 71847540 (5) Right hemiplegia ICD Codes: G81.91 - Hemiplegia, unspecified affecting right dominant side SNOMED: 252166059 (6) 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 ICD Codes: E11.22 - Type 2 diabetes mellitus with diabetic chronic kidney disease; N18.4 - Chronic kidney disease, stage 4 (severe) SNOMED: 80480731, 828808908, 736066700 (7) At high risk for aspiration ICD Codes: Z91.89 - Other specified personal risk factors, not elsewhere classified SNOMED: 329199876 (8) UTI (urinary tract infection) ICD Codes: N39.0 - Urinary tract infection, site not specified SNOMED: 81902499 (9) Pulmonary hypertension ICD Codes: I27.20 - Pulmonary hypertension, unspecified SNOMED: 54805337 (10) Anemia in chronic kidney disease (CKD) ICD Codes: N18.9 - Chronic kidney disease, unspecified; D63.1 - Anemia in chronic kidney disease SNOMED: 157231974 Qualifiers: Qualified Codes: N18.2 - Chronic kidney disease, stage 2 (mild); D63.1 - Anemia in chronic kidney disease (11) Chronic respiratory failure ICD Codes: J96.10 - Chronic respiratory failure, unspecified whether with hypoxia or hypercapnia SNOMED: 61389307 Status: stable, progressing Assessment/Plan: sepsis moniter for bleeding afebrile nac reviewed chart and labs Subjective ROS Limited/Unobtainable: Yes Allergies: Coded Allergies: No Known Allergies (Unverified , 04/12/19) Objective Last 24 Hour Vital Signs Date Time Temp Pulse Resp B/P (MAP) Pulse Ox O2 Delivery O2 Flow Rate FiO2 06/10/19 21:18 67 16 30 06/10/19 20:08 68 146/70 06/10/19 20:00 97.9 66 18 146/70 (95) 96 06/10/19 20:00 Mechanical Ventilator 06/10/19 20:00 30 06/10/19 20:00 65 06/10/19 19:45 64 15 30 06/10/19 17:17 70 16 30 06/10/19 16:22 169/78 06/10/19 16:00 Mechanical Ventilator 06/10/19 16:00 71 06/10/19 16:00 30 06/10/19 16:00 98.5 68 18 164/78 (106) 95 06/10/19 15:29 69 17 30 06/10/19 12:59 74 17 30 06/10/19 12:25 63 16 30 06/10/19 12:00 98.5 65 19 161/80 (107) 97 06/10/19 12:00 Mechanical Ventilator 06/10/19 12:00 30 06/10/19 11:28 65 06/10/19 09:04 71 18 30 06/10/19 08:45 71 160/82 06/10/19 08:00 Mechanical Ventilator 06/10/19 08:00 98.2 71 18 160/82 (108) 97 06/10/19 08:00 30 06/10/19 07:37 70 06/10/19 07:15 68 16 30 06/10/19 05:08 71 16 30 06/10/19 04:00 Mechanical Ventilator 06/10/19 04:00 75 06/10/19 04:00 30 06/10/19 04:00 98.9 81 17 151/75 (100) 94 06/10/19 03:01 61 16 30 06/10/19 01:29 70 17 30 06/10/19 00:00 98.4 65 16 146/85 (105) 98 06/10/19 00:00 30 06/10/19 00:00 Mechanical Ventilator 06/10/19 00:00 67 06/09/19 23:10 68 16 30 Intake and Output 06/09/19 06/10/19 19:00 07:00 Intake Total 690 ml 890 ml Output Total 1300 ml 375 ml Balance -610 ml 515 ml Free Water 80 ml 100 ml IV Total 310 ml 110 ml Tube Feeding 300 ml 680 ml Output Urine Total 1300 ml 375 ml # Bowel Movements 2 4 Laboratory Tests 06/10/19 03:11: White Blood Count 8.0, Red Blood Count 2.91L, Hemoglobin 8.7L, Hematocrit 28.7L , Mean Corpuscular Volume 99, Mean Corpuscular Hemoglobin 29.9, Mean Corpuscular Hemoglobin Concent 30.2L, Red Cell Distribution Width 23.2H, Platelet Count 162, Mean Platelet Volume 7.2, Neutrophils (%) (Auto) 57.5, Lymphocytes (%) (Auto) 32.8, Monocytes (%) (Auto) 5.5, Eosinophils (%) (Auto) 3.4H, Basophils (%) (Auto) 0.9, Sodium Level 149H, Potassium Level 4.3, Chloride Level 114H, Carbon Dioxide Level 25, Anion Gap 10, Blood Urea Nitrogen 42H, Creatinine 1.2, Estimat Glomerular Filtration Rate , Glucose Level 195H, Calcium Level 9.0 Height (Feet): 5 Height (Inches): 5.00 Weight (Pounds): 199 Cardiovascular: normal rate Respiratory/Chest: lungs clear Abdomen: non tender Glendy Taylor MD Jun 10, 2019 22:28
[2019-06-11] VITALS (7 sets, daily range): BP systolic 105–168; BP diastolic 59–98
[2019-06-11 04:37] LABS: BASOPHILS % (AUTO) 0.7 % (0.0-2.0); EOSINOPHILS % (AUTO) 4.4 % (0.0-3.0); HEMATOCRIT 29.7 % (37.0-47.0); HEMOGLOBIN 8.8 G/DL (12.0-16.0); LYMPHOCYTES % (AUTO) 28.5 % (20.0-45.0); MEAN CORPUSCULAR VOLUME 101 FL (80-99); MONOCYTES % (AUTO) 5.5 % (1.0-10.0); NEUTROPHILS % (AUTO) 60.8 % (45.0-75.0); PLATELET COUNT 161 K/UL (150-450); RED BLOOD COUNT 2.95 M/UL (4.20-5.40); RED CELL DISTRIBUTION WIDTH 23.4 % (11.6-14.8); WHITE BLOOD COUNT 7.3 K/UL (4.8-10.8)
--- NOTE | 2019-06-11 04:50 | NUR ---
RESPIRATORY NOTE: PT REMAINED STABLE ON CMV WITH CURRENT SETTINGS. SX PRN, AIRWAY IS MIDLINE, SECURE AND PATENT. VENT CIRCUIT AND SX TUBING ARE SECURE AND OUT OF THE WAY. NO S/S OF RESPIRATORY DISTRESS ARE NOTED AT THIS TIME.
[2019-06-11 04:56] LABS: ANION GAP 6 mmol/L (5-15); BLOOD UREA NITROGEN 43 mg/dL (7-18); CALCIUM 8.8 MG/DL (8.5-10.1); CARBON DIOXIDE 27 MMOL/L (21-32); CHLORIDE 114 MMOL/L (98-107); CREATININE 1.3 MG/DL (0.55-1.30); POTASSIUM 5.1 MMOL/L (3.5-5.1); SODIUM 147 MMOL/L (136-145)
--- NOTE | 2019-06-11 07:04 | NUR ---
HAND-OFF: Report given to Lilly BURNETT, pt. remains stable and no signs of distress noted.
--- NOTE | 2019-06-11 07:05 | NUR ---
NURSE NOTES: Received patient in bed. In no apparent distress. Vent dependent. On continuous GTF per order. Purewick inplace. Will continue plan of care.
--- NOTE | 2019-06-11 07:09 | NUR ---
RESPIRATORY NOTE: received pt on current vent orders, no signs of resp distress at this time. pt is trach with shiley [address]; midline and secured. vent alarms are set and audible and plugged into the red outlet. ambu bag at back up trach are at bedside. will cont to monitor.
--- NOTE | 2019-06-11 08:00 | Pulmonology Progress Note ---
Assessment/Plan Assessment/Plan ASSESSMENT Acute on chronic resp failure Sepsis , likely secondary to PNA HCA PNA Acute metabolic encephalopathy Acute kidney injury on chronic renal disease Troponin leak Congestive heart failure , diastolic, acute on chronic Severe pulmonary hypertension Severe aortic stenosis Moderate mitral regurgitation Dysphagia, feeding by G-tube History of CVA with right hemiplegia DM HTN heart disease Anemia of chronic kidney disease GI bleeding s/p EGD 06/09 Gastritis PLAN OF CARE LOVE vent support, pulm toilet, trach care ABG stable on current settings, keep as is abx as per ID recs fup with CXR GP bacteremia likely contaminant -as per ID strict aspiration precaution ; tube feeding DVT prophylaxis diuresis with close monitoring of volumes and cardiorenal parameters BP management with BB and Lasix elev troponin likely troponin leak as per cardio atrial flutter spont terminated Echo with preserved EF, grade 2 diastolic dysfunction , severe , moderate MRand severe pulmonary HTN BS management with SSI Monitor H&H with goal to keep Hgb >7 above 7 ; CEA WNL; stool OB + s/p EGD 06/09 +gastritis ; f/up with biopsy results monitor renal parameters lytes bowel regimen supportive care case discussed and evaluated by supervising physician Subjective Allergies: Coded Allergies: No Known Allergies (Unverified , 04/12/19) Subjective afbeile, no leukocytosis No signs of respiratory distress on current vent setting Objective Last 24 Hour Vital Signs Date Time Temp Pulse Resp B/P (MAP) Pulse Ox O2 Delivery O2 Flow Rate FiO2 06/11/19 07:08 63 16 30 06/11/19 05:30 66 152/79 (103) 06/11/19 04:50 67 16 30 06/11/19 04:08 168/88 06/11/19 04:00 Mechanical Ventilator 06/11/19 04:00 30 06/11/19 04:00 66 06/11/19 04:00 98.0 69 18 168/88 (114) 96 06/11/19 02:51 68 16 30 06/11/19 01:05 65 16 30 06/11/19 00:00 64 06/11/19 00:00 98.1 67 18 141/76 (97) 97 06/11/19 00:00 Mechanical Ventilator 06/10/19 23:00 66 16 30 06/10/19 21:18 67 16 30 06/10/19 20:08 68 146/70 06/10/19 20:00 97.9 66 18 146/70 (95) 96 06/10/19 20:00 Mechanical Ventilator 06/10/19 20:00 30 06/10/19 20:00 65 06/10/19 19:45 64 15 30 06/10/19 17:17 70 16 30 06/10/19 16:22 169/78 06/10/19 16:00 Mechanical Ventilator 06/10/19 16:00 71 06/10/19 16:00 30 06/10/19 16:00 98.5 68 18 164/78 (106) 95 06/10/19 15:29 69 17 30 06/10/19 12:59 74 17 30 06/10/19 12:25 63 16 30 06/10/19 12:00 98.5 65 19 161/80 (107) 97 06/10/19 12:00 Mechanical Ventilator 06/10/19 12:00 30 06/10/19 11:28 65 06/10/19 09:04 71 18 30 06/10/19 08:45 71 160/82 06/10/19 08:00 Mechanical Ventilator 06/10/19 08:00 98.2 71 18 160/82 (108) 97 06/10/19 08:00 30 Intake and Output 06/10/19 06/11/19 18:59 06:59 Intake Total 710 ml 930 ml Output Total 230 ml 325 ml Balance 480 ml 605 ml Free Water 100 ml IV Total 110 ml 110 ml Tube Feeding 600 ml 720 ml Output Urine Total 230 ml 325 ml # Bowel Movements 4 4 General Appearance: no acute distress, other - awake, vent dependent female in Vent AC 500-30%-16 HEENT: normocephalic, atraumatic, status post trach - Shilkey #8, secretions smal, thick, yellow Respiratory/Chest: no respiratory distress, no accessory muscle use, rhonchi Cardiovascular: normal rate - SR with freqent PAC on tele Abdomen: normal bowel sounds, soft, non tender, other - G tube Extremities: no edema Neurologic/Psychiatric: abnormal gait - bedridden , other - awake, not responsive Musculoskeletal: atrophy - BLE Laboratory Tests 06/11/19 03:05: White Blood Count 7.3, Red Blood Count 2.95L, Hemoglobin 8.8L, Hematocrit 29.7L , Mean Corpuscular Volume 101H, Mean Corpuscular Hemoglobin 29.7, Mean Corpuscular Hemoglobin Concent 29.5L, Red Cell Distribution Width 23.4H, Platelet Count 161, Mean Platelet Volume 7.3, Neutrophils (%) (Auto) 60.8, Lymphocytes (%) (Auto) 28.5, Monocytes (%) (Auto) 5.5, Eosinophils (%) (Auto) 4.4H, Basophils (%) (Auto) 0.7, Sodium Level 147H, Potassium Level 5.1, Chloride Level 114H, Carbon Dioxide Level 27, Anion Gap 6, Blood Urea Nitrogen 43H, Creatinine 1.3, Estimat Glomerular Filtration Rate , Glucose Level 281H, Calcium Level 8.8 Current Medications Medications (Trade) Dose Ordered Sig/Kenisha Route PRN Reason Start Time Stop Time Status Last Admin Dose Admin Acetaminophen (Tylenol) 650 mg Q4H PRN GT FEVER (temp>100.5 F) 06/09/19 14:30 07/04/19 13:29 Clonidine HCl (Catapres Tab) 0.1 mg Q6H PRN GT For High Blood Pressure 06/09/19 14:30 07/09/19 07:59 06/11/19 04:08 Dextrose (Dextrose 50%) 25 ml Q30M PRN IV Hypoglycemia 06/06/19 13:30 07/04/19 15:21 Dextrose (Dextrose 50%) 50 ml Q30M PRN IV hypoglycemia 06/06/19 13:30 07/04/19 15:29 Furosemide (Lasix) 40 mg DAILY IV 06/10/19 09:00 07/04/19 20:59 06/10/19 08:46 Heparin Sodium (Porcine) (Heparin 5000 units/ml) 5,000 units EVERY 12 HOURS SUBQ 06/06/19 21:00 07/04/19 20:59 06/10/19 20:09 Lorazepam (Ativan 2mg/ml 1ml) 2 mg Q2H PRN IV For Anxiety 06/06/19 13:30 06/11/19 13:29 06/09/19 01:29 Meropenem 1 gm/ Sodium Chloride 55 ml @ 110 mls/hr Q12HR@0000,1200 IVPB 06/07/19 00:00 06/14/19 23:59 06/10/19 23:00 Metoprolol Tartrate (Lopressor) 25 mg EVERY 12 HOURS GT 06/09/19 21:00 07/04/19 20:59 06/10/19 20:08 Morphine Sulfate (Morphine Sulfate) 4 mg Q4H PRN IVP Severe Pain (Pain Scale 7-10) 06/06/19 13:30 06/11/19 13:29 06/10/19 18:07 Ondansetron HCl (Zofran) 4 mg Q6H PRN IVP Nausea & Vomiting 06/06/19 13:30 07/04/19 13:29 Pantoprazole (Protonix) 40 mg DAILY IV 06/07/19 09:00 07/05/19 08:59 06/10/19 08:46 Polyethylene Glycol (Miralax) 17 gm DAILYPRN PRN GT Constipation 06/09/19 14:30 07/04/19 13:29 Potassium Chloride (K-Dur) 20 meq TWICE A DAY GT 06/07/19 18:00 07/07/19 17:59 06/10/19 17:55 Trimethoprim/ Sulfamethoxazole (Bactrim-DS) 20 ml EVERY 12 HOURS GT 06/10/19 12:00 06/17/19 11:59 06/10/19 20:08 Stacy Dsouza NP Jun 11, 2019 08:00
[2019-06-11] MEDS: Pantoprazole Inj IV SCH (08:16)
[2019-06-11] MEDS: Bactrim Susp 20ml GT SCH ×2 (08:16→21:17)
[2019-06-11] MEDS: Metoprolol 25mg tab GT SCH ×2 (08:16→21:18)
[2019-06-11] MEDS: Heparin 5000 units/ml inj SUBQ SCH ×2 (08:17→21:19)
[2019-06-11] MEDS ORDERED: NS 275ml ONE (09:09)
--- NOTE | 2019-06-11 10:09 | NUR ---
RD ASSESSMENT & RECOMMENDATIONS SEE CARE ACTIVITY FOR COMPLETE ASSESSMENT DAILY ESTIMATED NEEDS: Needs based on Critical care, CHF, DM/ 56.8kg abw 22-28 kcals/kg 6188-7753 total kcals 1.2-2 g protein/kg 68-114 g total protein 20-22 mL/kg 7920-4455 total fluid mLs NUTRITION DIAGNOSIS: * Swallowing difficulty R/T dysphagia, h/o CVA, respiratory status as evidenced by pt trach/vent dep, PEG dep. * Altered nutrition related lab values R/T CHF, diabetes as evidenced by BNP >10548, A1C of 6.6 on 05/18, elev BGs ([id number]). CURRENT TF:Jevity 1.2 @ 60ml/hr x 24 hrs ENTERAL NUTRITION RECOMMENDATIONS: Glucerna 1.5 @ 40ml/hr x 24 hrs to provide 960ml, 1440kcal, 79g prot, 729ml free water * Rec TF change to Glucenra 1.5: DM dx, for less free fluids (edematous, CHF dx w/ BNP >96784) * Initiate Glucerna 1.5 @ 30ml/hr x 6 hrs, advance 10ml q 4-6 hrs as tolerated to goal rate. * HOB over 30 degrees/ water flush per MD ADDITIONAL RECOMMENDATIONS: * Calibrated bedscale wt for accurate CBW * Monitor lytes daily, replete as needed * NISS for BG control- DM dx, BGs elev * TF REC ABOVE . .
--- NOTE | 2019-06-11 10:58 | GI Progress Note ---
Assessment/Plan Problems: (1) GI bleed ICD Codes: K92.2 - Gastrointestinal hemorrhage, unspecified SNOMED: 36868331 (2) Black tarry stools ICD Codes: K92.1 - Melena SNOMED: 929155657 (3) Severe sepsis ICD Codes: A41.9 - Sepsis, unspecified organism; R65.20 - Severe sepsis without septic shock SNOMED: 39244199 (4) G tube feedings ICD Codes: Z93.1 - Gastrostomy status SNOMED: 539429422, 516490678, 590285603 (5) Anemia in chronic kidney disease (CKD) ICD Codes: N18.9 - Chronic kidney disease, unspecified; D63.1 - Anemia in chronic kidney disease SNOMED: 900718184 Qualifiers: Qualified Codes: N18.2 - Chronic kidney disease, stage 2 (mild); D63.1 - Anemia in chronic kidney disease Status: unchanged Status Narrative Discussed with Dr. Gentile. Assessment/Plan SUMMARY OF FINDINGS: Gastritis, otherwise normal upper endoscopic examination. G-tube in place without any obvious bleeding on the G-tube site. RECOMMENDATIONS: 1. Follow pathology. 2. Resume diet. 3. Monitor labs. 4. Transfuse as needed. 5. PPI daily. 6. resume Plavix The patient was seen and examined at bedside and all new and available data was reviewed in the patients chart. I agree with the above findings, impression and plan. (Patient seen earlier today. Signature stamp does not reflect patient encounter time.). - Darron Gentile MD Subjective Subjective limited Objective Last 24 Hour Vital Signs Date Time Temp Pulse Resp B/P (MAP) Pulse Ox O2 Delivery O2 Flow Rate FiO2 06/11/19 09:22 67 16 30 06/11/19 08:16 64 138/98 06/11/19 08:00 98.5 64 16 138/98 (111) 99 06/11/19 08:00 30 06/11/19 08:00 Mechanical Ventilator 06/11/19 07:43 66 06/11/19 07:08 63 16 30 06/11/19 05:30 66 152/79 (103) 06/11/19 04:50 67 16 30 06/11/19 04:08 168/88 06/11/19 04:00 Mechanical Ventilator 06/11/19 04:00 30 06/11/19 04:00 66 06/11/19 04:00 98.0 69 18 168/88 (114) 96 06/11/19 02:51 68 16 30 06/11/19 01:05 65 16 30 06/11/19 00:00 64 06/11/19 00:00 98.1 67 18 141/76 (97) 97 06/11/19 00:00 Mechanical Ventilator 06/10/19 23:00 66 16 30 06/10/19 21:18 67 16 30 06/10/19 20:08 68 146/70 06/10/19 20:00 97.9 66 18 146/70 (95) 96 06/10/19 20:00 Mechanical Ventilator 06/10/19 20:00 30 06/10/19 20:00 65 06/10/19 19:45 64 15 30 06/10/19 17:17 70 16 30 06/10/19 16:22 169/78 06/10/19 16:00 Mechanical Ventilator 06/10/19 16:00 71 06/10/19 16:00 30 06/10/19 16:00 98.5 68 18 164/78 (106) 95 06/10/19 15:29 69 17 30 06/10/19 12:59 74 17 30 06/10/19 12:25 63 16 30 06/10/19 12:00 98.5 65 19 161/80 (107) 97 06/10/19 12:00 Mechanical Ventilator 06/10/19 12:00 30 06/10/19 11:28 65 Intake and Output 06/10/19 06/11/19 19:00 07:00 Intake Total 720 ml 930 ml Output Total 230 ml 325 ml Balance 490 ml 605 ml Free Water 100 ml IV Total 110 ml 110 ml Tube Feeding 610 ml 720 ml Output Urine Total 230 ml 325 ml # Bowel Movements 4 4 Laboratory Tests Test 06/11/19 03:05 White Blood Count 7.3 K/UL (4.8-10.8) Red Blood Count 2.95 M/UL (4.20-5.40) L Hemoglobin 8.8 G/DL (12.0-16.0) L Hematocrit 29.7 % (37.0-47.0) L Mean Corpuscular Volume 101 FL (80-99) H Mean Corpuscular Hemoglobin 29.7 PG (27.0-31.0) Mean Corpuscular Hemoglobin Concent 29.5 G/DL (32.0-36.0) L Red Cell Distribution Width 23.4 % (11.6-14.8) H Platelet Count 161 K/UL (150-450) Mean Platelet Volume 7.3 FL (6.5-10.1) Neutrophils (%) (Auto) 60.8 % (45.0-75.0) Lymphocytes (%) (Auto) 28.5 % (20.0-45.0) Monocytes (%) (Auto) 5.5 % (1.0-10.0) Eosinophils (%) (Auto) 4.4 % (0.0-3.0) H Basophils (%) (Auto) 0.7 % (0.0-2.0) Sodium Level 147 MMOL/L (136-145) H Potassium Level 5.1 MMOL/L (3.5-5.1) Chloride Level 114 MMOL/L (98-107) H Carbon Dioxide Level 27 MMOL/L (21-32) Anion Gap 6 mmol/L (5-15) Blood Urea Nitrogen 43 mg/dL (7-18) H Creatinine 1.3 MG/DL (0.55-1.30) Estimat Glomerular Filtration Rate mL/min (>60) Glucose Level 281 MG/DL (74-106) H Calcium Level 8.8 MG/DL (8.5-10.1) Height (Feet): 5 Height (Inches): 5.00 Weight (Pounds): 199 General Appearance: alert Cardiovascular: normal rate [facility]: [facility] Exam: site Aron Torres NP Jun 11, 2019 10:58
--- NOTE | 2019-06-11 11:00 | NUR ---
NURSE NOTES: Patient's son at bedside. Patient resting comfortably in bed.
[2019-06-11] MEDS ORDERED: Albuterol/Ipratropium 3ml neb HHN PRN (12:00)
[2019-06-11] MEDS ORDERED: LORazepam Inj 2mg/ml 1ml IV PRN (12:00)
[2019-06-11] MEDS ORDERED: Morphine Sulfate 4mg/ml Inj (IV USE ONLY) IVP PRN (12:00)
[2019-06-11] MEDS: Meropenem 1 GM in NS 55 ML IVPB SCH (12:02)
--- NOTE | 2019-06-11 14:58 | NUR ---
NURSE NOTES: Telephonne order received from Stacy Dsouza to discontinue scheduled Kdur 20meq GT BID. Potassium level today is 5.1
--- NOTE | 2019-06-11 15:03 | Infectious Diseases Prog Note ---
Assessment/Plan Assessment/Plan Assessment: Sepsis -likely 2ry to PNA -06/07 CXR: Bilateral infiltrates versus pulmonary edema. No interval change -06/04 CXR: Bilateral mixed interstitial and alveolar airspace opacities, slightly increased compared to the prior exam of 05/20/2019. Findings may be related to pulmonary edema and/or multifocal pneumonia. Clinical correlation/ follow-up recommended. Tracheostomy and gastrostomy tubes noted. -sp cx S. maltophila (R levaquin, S bactrim), DELFTIA ACIDOVORAN (only Antibiotic sensitivity reported is Zosyn which is S). 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 maltophila (Levaquin R) -06/10 SP Levaquin #6 -06/09 SP IV Vancomycin #6 -06/05 SP Zosyn #2 -05/20 SP Zosyn #3 -05/18 SP IV Vancomycin #3 -04/28/19 SP Cefepime #6 -04/22 SP Meropenem #5 -04/20 SP Vancomycin #8 - 04/18/19 S/P Cefepime #6 -f/u cx -Monitor CBC/CMP, temperatures -trach/peg/ICU care -aspiration precautions -f.u repeat Bcx Thank you for this consultation. Will continue to follow along with you. Discussed with RN. Subjective Allergies: Coded Allergies: No Known Allergies (Unverified , 04/12/19) Subjective afebrile no leuokocytosis repeat Bcx NTD Objective Vital Signs Last 24 Hour Vital Signs Date Time Temp Pulse Resp B/P (MAP) Pulse Ox O2 Delivery O2 Flow Rate FiO2 8/16/19 13:24 67 16 30 06/11/19 12:00 30 06/11/19 12:00 Mechanical Ventilator 06/11/19 12:00 97.9 63 16 105/59 (74) 99 06/11/19 11:27 68 06/11/19 11:04 67 16 30 06/11/19 09:22 67 16 30 06/11/19 08:16 64 138/98 06/11/19 08:00 98.5 64 16 138/98 (111) 99 06/11/19 08:00 30 06/11/19 08:00 Mechanical Ventilator 06/11/19 07:43 66 06/11/19 07:08 63 16 30 06/11/19 05:30 66 152/79 (103) 06/11/19 04:50 67 16 30 06/11/19 04:08 168/88 06/11/19 04:00 Mechanical Ventilator 06/11/19 04:00 30 06/11/19 04:00 66 06/11/19 04:00 98.0 69 18 168/88 (114) 96 06/11/19 02:51 68 16 30 06/11/19 01:05 65 16 30 06/11/19 00:00 64 06/11/19 00:00 98.1 67 18 141/76 (97) 97 06/11/19 00:00 Mechanical Ventilator 06/10/19 23:00 66 16 30 06/10/19 21:18 67 16 30 06/10/19 20:08 68 146/70 06/10/19 20:00 97.9 66 18 146/70 (95) 96 06/10/19 20:00 Mechanical Ventilator 06/10/19 20:00 30 06/10/19 20:00 65 06/10/19 19:45 64 15 30 06/10/19 17:17 70 16 30 06/10/19 16:22 169/78 06/10/19 16:00 Mechanical Ventilator 06/10/19 16:00 71 06/10/19 16:00 30 06/10/19 16:00 98.5 68 18 164/78 (106) 95 06/10/19 15:29 69 17 30 Height (Feet): 5 Height (Inches): 5.00 Weight (Pounds): 199 Objective GENERAL: Trach, vent, altered, lethargic in bed, nonverbal. CARDIOVASCULAR: No murmurs. LUNGS: Poor air exchange. ABDOMEN: Bowel sounds distant. EXTREMITIES: No cyanosis, clubbing, or edema. NEUROLOGIC: The patient is flaccid in bed, not really following directions. Laboratory Tests Test 06/11/19 03:05 White Blood Count 7.3 K/UL (4.8-10.8) Red Blood Count 2.95 M/UL (4.20-5.40) L Hemoglobin 8.8 G/DL (12.0-16.0) L Hematocrit 29.7 % (37.0-47.0) L Mean Corpuscular Volume 101 FL (80-99) H Mean Corpuscular Hemoglobin 29.7 PG (27.0-31.0) Mean Corpuscular Hemoglobin Concent 29.5 G/DL (32.0-36.0) L Red Cell Distribution Width 23.4 % (11.6-14.8) H Platelet Count 161 K/UL (150-450) Mean Platelet Volume 7.3 FL (6.5-10.1) Neutrophils (%) (Auto) 60.8 % (45.0-75.0) Lymphocytes (%) (Auto) 28.5 % (20.0-45.0) Monocytes (%) (Auto) 5.5 % (1.0-10.0) Eosinophils (%) (Auto) 4.4 % (0.0-3.0) H Basophils (%) (Auto) 0.7 % (0.0-2.0) Sodium Level 147 MMOL/L (136-145) H Potassium Level 5.1 MMOL/L (3.5-5.1) Chloride Level 114 MMOL/L (98-107) H Carbon Dioxide Level 27 MMOL/L (21-32) Anion Gap 6 mmol/L (5-15) Blood Urea Nitrogen 43 mg/dL (7-18) H Creatinine 1.3 MG/DL (0.55-1.30) Estimat Glomerular Filtration Rate mL/min (>60) Glucose Level 281 MG/DL (74-106) H Calcium Level 8.8 MG/DL (8.5-10.1) Current Medications Medications (Trade) Dose Ordered Sig/Kenisha Route PRN Reason Start Time Stop Time Status Last Admin Dose Admin Acetaminophen (Tylenol) 650 mg Q4H PRN GT FEVER (temp>100.5 F) 06/09/19 14:30 07/04/19 13:29 Albuterol/ Ipratropium (Albuterol/ Ipratropium) 3 ml Q4H PRN HHN Shortness of Breath 06/11/19 12:00 06/16/19 11:59 Clonidine HCl (Catapres Tab) 0.1 mg Q6H PRN GT For High Blood Pressure 06/09/19 14:30 07/09/19 07:59 06/11/19 04:08 Dextrose (Dextrose 50%) 25 ml Q30M PRN IV Hypoglycemia 06/06/19 13:30 07/04/19 15:21 Dextrose (Dextrose 50%) 50 ml Q30M PRN IV hypoglycemia 06/06/19 13:30 07/04/19 15:29 Furosemide (Lasix) 40 mg DAILY IV 06/10/19 09:00 07/04/19 20:59 06/11/19 08:16 Heparin Sodium (Porcine) (Heparin 5000 units/ml) 5,000 units EVERY 12 HOURS SUBQ 06/06/19 21:00 07/04/19 20:59 06/11/19 08:17 Lorazepam (Ativan 2mg/ml 1ml) 2 mg Q2H PRN IV For Anxiety 06/11/19 12:00 06/16/19 11:59 Meropenem 1 gm/ Sodium Chloride 55 ml @ 110 mls/hr Q12HR@0000,1200 IVPB 06/07/19 00:00 06/14/19 23:59 06/11/19 12:02 Metoprolol Tartrate (Lopressor) 25 mg EVERY 12 HOURS GT 06/09/19 21:00 07/04/19 20:59 06/11/19 08:16 Morphine Sulfate (Morphine Sulfate) 4 mg Q4H PRN IVP Severe Pain (Pain Scale 7-10) 06/11/19 12:00 06/16/19 11:59 Ondansetron HCl (Zofran) 4 mg Q6H PRN IVP Nausea & Vomiting 06/06/19 13:30 07/04/19 13:29 Pantoprazole (Protonix) 40 mg DAILY IV 06/07/19 09:00 07/05/19 08:59 06/11/19 08:16 Polyethylene Glycol (Miralax) 17 gm DAILYPRN PRN GT Constipation 06/09/19 14:30 07/04/19 13:29 Trimethoprim/ Sulfamethoxazole (Bactrim-DS) 20 ml EVERY 12 HOURS GT 06/10/19 12:00 06/17/19 11:59 06/11/19 08:16 Cora Baer M.D. Jun 11, 2019 15:03
--- NOTE | 2019-06-11 17:55 | Hematology/Onc Progress Note ---
Assessment/Plan Assessment/Plan Assessment/Plan: # Anemia of chronic disease likely multifactorial process, in the past has had anemia as well --> w/u reveals ferritin is >1500, esr and crp are elevated --> on abx at this time, ID recs as needed --> smear has been reviewed, no schistocytes noted --> monitor for bleed, transfuse with 1 unit 06/05 --> hgb goal >7 and transfuse as needed --> cea is 4.2 is wnl --> hgb 8.3-->8.2-->8.5->8.7->8.9 # Leukocytosis with Pulmonary infiltrates vs pulmonary edema hx of trach, had sepsis --> CXR: Excessive bilateral diffuse infiltrates versus edema, increased from prior study of 05/05/2019 --> on annmarie and vanc iv abx-> zosyn/bactrim --> imaging has been reviewed # REMY on CKD --> per renal recs # Recent PNA --> s/p abx with Rx # HyperGlycemia / DM 24 H urine protein check 2.4 gram --> dm management # Right Esvin due to CVA --> ok to resume plafix # HTN is on metp --> sbo goal <150 # chronic resp failure s/p trach/vent dependant --> trach on 05/03/19 # Dysphagia s/p PEG # Nonverbal status # SNF resident # DVT ppx with heparin sq Time of note does not necessarily correspond to when patient was seen. Greatly appreciate consultation. Subjective Constitutional: Denies: no symptoms, chills, fever, malaise, weakness, other HEENT: Denies: no symptoms, eye pain, blurred vision, tearing, double vision, ear pain, ear discharge, nose pain, nose congestion, throat pain, throat swelling, mouth pain, mouth swelling, other Cardiovascular: Denies: no symptoms, chest pain, edema, irregular heart rate, lightheadedness, palpitations, syncope, other Respiratory: Denies: no symptoms, cough, shortness of breath, SOB with excertion, SOB at rest, sputum, wheezing, other Gastrointestinal/Abdominal: Denies: no symptoms, abdomen distended, abdominal pain, black stools, tarry stools, blood in stool, constipated, diarrhea, difficulty swallowing, nausea, poor appetite, poor fluid intake, rectal bleeding , vomiting, other Genitourinary: Denies: no symptoms, burning, discharge, frequency, flank pain, hematuria, incontinence, pain, urgency, other Neurologic/Psychiatric: Denies: no symptoms, anxiety, depressed, emotional problems, headache, numbness, paresthesia, pre-existing deficit, seizure, tingling, tremors, weakness, other Endocrine: Denies: no symptoms, excessive sweating, flushing, intolerance to cold, intolerance to heat, increased hunger, increased thirst, increased urine, unexplained weight gain, unexplained weight loss, other Allergies: Coded Allergies: No Known Allergies (Unverified , 04/12/19) Subjective 06/07: on trach, vent, remains altered, is off pressors, h/h reviewed 06/08: to go for egd tomorrow, labs reviewed, no f/c 06/09: egd done, results pending, no f/c, on gtube feeds 06/10: remains on gtube feeds, is alert and oriented x1, pending placement 06/11: no events noted no bleeding or chills, hgb stable Objective Objective Current Medications Medications (Trade) Dose Ordered Sig/Kenisha Route PRN Reason Start Time Stop Time Status Last Admin Dose Admin Acetaminophen (Tylenol) 650 mg Q4H PRN GT FEVER (temp>100.5 F) 06/09/19 14:30 07/04/19 13:29 Albuterol/ Ipratropium (Albuterol/ Ipratropium) 3 ml Q4H PRN HHN Shortness of Breath 06/11/19 12:00 06/16/19 11:59 Clonidine HCl (Catapres Tab) 0.1 mg Q6H PRN GT For High Blood Pressure 06/09/19 14:30 07/09/19 07:59 06/11/19 04:08 Dextrose (Dextrose 50%) 25 ml Q30M PRN IV Hypoglycemia 06/06/19 13:30 07/04/19 15:21 Dextrose (Dextrose 50%) 50 ml Q30M PRN IV hypoglycemia 06/06/19 13:30 07/04/19 15:29 Furosemide (Lasix) 40 mg DAILY IV 06/10/19 09:00 07/04/19 20:59 8/16/19 08:16 Heparin Sodium (Porcine) (Heparin 5000 units/ml) 5,000 units EVERY 12 HOURS SUBQ 06/06/19 21:00 07/04/19 20:59 06/11/19 08:17 Lorazepam (Ativan 2mg/ml 1ml) 2 mg Q2H PRN IV For Anxiety 06/11/19 12:00 06/16/19 11:59 Metoprolol Tartrate (Lopressor) 25 mg EVERY 12 HOURS GT 06/09/19 21:00 07/04/19 20:59 06/11/19 08:16 Morphine Sulfate (Morphine Sulfate) 4 mg Q4H PRN IVP Severe Pain (Pain Scale 7-10) 06/11/19 12:00 06/16/19 11:59 Ondansetron HCl (Zofran) 4 mg Q6H PRN IVP Nausea & Vomiting 06/06/19 13:30 07/04/19 13:29 Pantoprazole (Protonix) 40 mg DAILY IV 06/07/19 09:00 07/05/19 08:59 06/11/19 08:16 Piperacillin Sod/ Tazobactam Sod 3.375 gm/Sodium Chloride 110 ml @ 27.5 mls/hr EVERY 8 HOURS IVPB 06/11/19 22:00 06/18/19 21:59 Polyethylene Glycol (Miralax) 17 gm DAILYPRN PRN GT Constipation 06/09/19 14:30 07/04/19 13:29 Trimethoprim/ Sulfamethoxazole (Bactrim-DS) 20 ml EVERY 12 HOURS GT 06/10/19 12:00 06/17/19 11:59 06/11/19 08:16 Last 24 Hour Vital Signs Date Time Temp Pulse Resp B/P (MAP) Pulse Ox O2 Delivery O2 Flow Rate FiO2 06/11/19 17:08 69 20 30 06/11/19 16:00 30 06/11/19 16:00 Mechanical Ventilator 06/11/19 16:00 71 06/11/19 16:00 98.2 69 18 153/79 (103) 98 06/11/19 15:14 69 17 30 06/11/19 13:24 67 16 30 06/11/19 12:00 30 06/11/19 12:00 Mechanical Ventilator 06/11/19 12:00 97.9 63 16 105/59 (74) 99 06/11/19 11:27 68 06/11/19 11:04 67 16 30 06/11/19 09:22 67 16 30 06/11/19 08:16 64 138/98 06/11/19 08:00 98.5 64 16 138/98 (111) 99 06/11/19 08:00 30 06/11/19 08:00 Mechanical Ventilator 06/11/19 07:43 66 06/11/19 07:08 63 16 30 06/11/19 05:30 66 152/79 (103) 06/11/19 04:50 67 16 30 06/11/19 04:08 168/88 06/11/19 04:00 Mechanical Ventilator 06/11/19 04:00 30 06/11/19 04:00 66 06/11/19 04:00 98.0 69 18 168/88 (114) 96 06/11/19 02:51 68 16 30 06/11/19 01:05 65 16 30 06/11/19 00:00 64 06/11/19 00:00 98.1 67 18 141/76 (97) 97 06/11/19 00:00 Mechanical Ventilator 06/10/19 23:00 66 16 30 06/10/19 21:18 67 16 30 06/10/19 20:08 68 146/70 06/10/19 20:00 97.9 66 18 146/70 (95) 96 06/10/19 20:00 Mechanical Ventilator 06/10/19 20:00 30 06/10/19 20:00 65 06/10/19 19:45 64 15 30 06/10/19 17:17 70 16 30 06/10/19 16:22 169/78 06/10/19 16:00 Mechanical Ventilator 06/10/19 16:00 71 06/10/19 16:00 30 06/10/19 16:00 98.5 68 18 164/78 (106) 95 06/10/19 15:29 69 17 30 06/10/19 12:59 74 17 30 06/10/19 12:25 63 16 30 06/10/19 12:00 98.5 65 19 161/80 (107) 97 06/10/19 12:00 Mechanical Ventilator 06/10/19 12:00 30 06/10/19 11:28 65 8/15/19 09:04 71 18 30 06/10/19 08:45 71 160/82 06/10/19 08:00 Mechanical Ventilator 06/10/19 08:00 98.2 71 18 160/82 (108) 97 06/10/19 08:00 30 06/10/19 07:37 70 06/10/19 07:15 68 16 30 06/10/19 05:08 71 16 30 06/10/19 04:00 Mechanical Ventilator 06/10/19 04:00 75 06/10/19 04:00 30 06/10/19 04:00 98.9 81 17 151/75 (100) 94 06/10/19 03:01 61 16 30 06/10/19 01:29 70 17 30 06/10/19 00:00 98.4 65 16 146/85 (105) 98 06/10/19 00:00 30 06/10/19 00:00 Mechanical Ventilator 06/10/19 00:00 67 06/09/19 23:10 68 16 30 06/09/19 21:30 80 17 30 06/09/19 20:24 88 17 98 Mechanical Ventilator 30 06/09/19 20:24 82 152/79 06/09/19 20:00 98.0 82 18 151/79 (103) 96 06/09/19 20:00 75 06/09/19 20:00 Mechanical Ventilator 06/09/19 20:00 30 06/09/19 19:30 85 17 30 Intake and Output 06/10/19 06/11/19 19:00 07:00 Intake Total 720 ml 930 ml Output Total 230 ml 325 ml Balance 490 ml 605 ml Free Water 100 ml IV Total 110 ml 110 ml Tube Feeding 610 ml 720 ml Output Urine Total 230 ml 325 ml # Bowel Movements 4 4 Labs Test 06/09/19 03:35 06/10/19 03:11 06/11/19 03:05 White Blood Count 8.3 K/UL (4.8-10.8) 8.0 K/UL (4.8-10.8) 7.3 K/UL (4.8-10.8) Red Blood Count 2.90 M/UL (4.20-5.40) 2.91 M/UL (4.20-5.40) 2.95 M/UL (4.20-5.40) Hemoglobin 8.5 G/DL (12.0-16.0) 8.7 G/DL (12.0-16.0) 8.8 G/DL (12.0-16.0) Hematocrit 28.4 % (37.0-47.0) 28.7 % (37.0-47.0) 29.7 % (37.0-47.0) Mean Corpuscular Volume 98 FL (80-99) 99 FL (80-99) 101 FL (80-99) Mean Corpuscular Hemoglobin 29.4 PG (27.0-31.0) 29.9 PG (27.0-31.0) 29.7 PG (27.0-31.0) Mean Corpuscular Hemoglobin Concent 30.0 G/DL (32.0-36.0) 30.2 G/DL (32.0-36.0) 29.5 G/DL (32.0-36.0) Red Cell Distribution Width 22.6 % (11.6-14.8) 23.2 % (11.6-14.8) 23.4 % (11.6-14.8) Platelet Count 179 K/UL (150-450) 162 K/UL (150-450) 161 K/UL (150-450) Mean Platelet Volume 7.1 FL (6.5-10.1) 7.2 FL (6.5-10.1) 7.3 FL (6.5-10.1) Neutrophils (%) (Auto) 52.2 % (45.0-75.0) 57.5 % (45.0-75.0) 60.8 % (45.0-75.0) Lymphocytes (%) (Auto) 38.1 % (20.0-45.0) 32.8 % (20.0-45.0) 28.5 % (20.0-45.0) Monocytes (%) (Auto) 5.5 % (1.0-10.0) 5.5 % (1.0-10.0) 5.5 % (1.0-10.0) Eosinophils (%) (Auto) 3.4 % (0.0-3.0) 3.4 % (0.0-3.0) 4.4 % (0.0-3.0) Basophils (%) (Auto) 0.9 % (0.0-2.0) 0.9 % (0.0-2.0) 0.7 % (0.0-2.0) Prothrombin Time 11.9 SEC (9.30-11.50) Prothromb Time International Ratio 1.1 (0.9-1.1) Activated Partial Thromboplast Time 28 SEC (23-33) Sodium Level 148 MMOL/L (136-145) 149 MMOL/L (136-145) 147 MMOL/L (136-145) Potassium Level 4.2 MMOL/L (3.5-5.1) 4.3 MMOL/L (3.5-5.1) 5.1 MMOL/L (3.5-5.1) Chloride Level 113 MMOL/L (98-107) 114 MMOL/L (98-107) 114 MMOL/L (98-107) Carbon Dioxide Level 28 MMOL/L (21-32) 25 MMOL/L (21-32) 27 MMOL/L (21-32) Anion Gap 7 mmol/L (5-15) 10 mmol/L (5-15) 6 mmol/L (5-15) Blood Urea Nitrogen 46 mg/dL (7-18) 42 mg/dL (7-18) 43 mg/dL (7-18) Creatinine 1.2 MG/DL (0.55-1.30) 1.2 MG/DL (0.55-1.30) 1.3 MG/DL (0.55-1.30) Estimat Glomerular Filtration Rate mL/min (>60) mL/min (>60) mL/min (>60) Glucose Level 153 MG/DL (74-106) 195 MG/DL (74-106) 281 MG/DL (74-106) Calcium Level 9.1 MG/DL (8.5-10.1) 9.0 MG/DL (8.5-10.1) 8.8 MG/DL (8.5-10.1) Phosphorus Level 3.0 MG/DL (2.5-4.9) Magnesium Level 1.7 MG/DL (1.8-2.4) Total Bilirubin 0.6 MG/DL (0.2-1.0) Aspartate Amino Transf (AST/SGOT) 23 U/L (15-37) Alanine Aminotransferase (ALT/SGPT) 8 U/L (12-78) Alkaline Phosphatase 90 U/L (46-116) Total Protein 7.1 G/DL (6.4-8.2) Albumin 1.9 G/DL (3.4-5.0) Globulin 5.2 g/dL Albumin/Globulin Ratio 0.4 (1.0-2.7) Height (Feet): 5 Height (Inches): 5.00 Weight (Pounds): 199 Objective HEAD AND NECK: No JVD. LUNGS: Decreased breath sounds. ++ Status post tracheostomy. CARDIOVASCULAR: Shows regular S1 and S2 with no gallop. ABDOMEN: Status post G-tube. EXTREMITIES: Have anasarca. Steven Norton MD Jun 11, 2019 17:55
--- NOTE | 2019-06-11 19:00 | NUR ---
RESPIRATORY NOTE:pt recieved on vent settings of AC RR16 Vt 500 +5 30%, pt shows no signs of distress, trach is intact, sx PRN, alarms are on x audible and vent is pluged in red outlet. no signs of discomfort noted, sat. is 98% will continue to monitor the pt.
--- NOTE | 2019-06-11 19:25 | NUR ---
HAND-OFF: Report given to Anne Amanda RN.
--- NOTE | 2019-06-11 19:26 | NUR ---
NURSE NOTES: Received bedside report from HORTENCIA Carr.Patient stable,open eyes,following simple commands,SR on salvage repairer,tract-vent Shiley 8 AC 16 TV 500 FiO2 30% PEEP 5 tolerated settings well,GT running with Glucerna 1.5 @ 40 ml/hr is a goal,running 30 ml/hr starting @ 1700,BS active in all quadrants,IV asymptomatic intact on L breast G 22 TKO.Bed secured,call light within a reach,will continue to monitor and follow POC.
--- NOTE | 2019-06-11 20:46 | General Progress Note ---
Assessment/Plan Problem List: (1) CAD (coronary artery disease) ICD Codes: I25.10 - Atherosclerotic heart disease of [place] coronary artery without angina pectoris SNOMED: 71983668 (2) GI bleed ICD Codes: K92.2 - Gastrointestinal hemorrhage, unspecified SNOMED: 21175661 (3) Hypertensive heart disease ICD Codes: I11.9 - Hypertensive heart disease without heart failure SNOMED: 56188681 (4) Diabetes mellitus ICD Codes: E11.9 - Type 2 diabetes mellitus without complications SNOMED: 72201771 (5) Right hemiplegia ICD Codes: G81.91 - Hemiplegia, unspecified affecting right dominant side SNOMED: 442213217 (6) 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 ICD Codes: E11.22 - Type 2 diabetes mellitus with diabetic chronic kidney disease; N18.4 - Chronic kidney disease, stage 4 (severe) SNOMED: 82635413, 710597528, 673004992 (7) At high risk for aspiration ICD Codes: Z91.89 - Other specified personal risk factors, not elsewhere classified SNOMED: 185456750 (8) UTI (urinary tract infection) ICD Codes: N39.0 - Urinary tract infection, site not specified SNOMED: 58871537 (9) Pulmonary hypertension ICD Codes: I27.20 - Pulmonary hypertension, unspecified SNOMED: 56670763 (10) Anemia in chronic kidney disease (CKD) ICD Codes: N18.9 - Chronic kidney disease, unspecified; D63.1 - Anemia in chronic kidney disease SNOMED: 892873565 Qualifiers: Qualified Codes: N18.2 - Chronic kidney disease, stage 2 (mild); D63.1 - Anemia in chronic kidney disease (11) Chronic respiratory failure ICD Codes: J96.10 - Chronic respiratory failure, unspecified whether with hypoxia or hypercapnia SNOMED: 12205582 Status: progressing, unchanged Assessment/Plan: sepsis moniter for bleeding no bleeding reviewed chart and albs uti check h/h no change afebrile Subjective ROS Limited/Unobtainable: Yes Allergies: Coded Allergies: No Known Allergies (Unverified , 04/12/19) Objective Last 24 Hour Vital Signs Date Time Temp Pulse Resp B/P (MAP) Pulse Ox O2 Delivery O2 Flow Rate FiO2 06/11/19 20:00 69 06/11/19 18:50 71 20 30 06/11/19 17:08 69 20 30 06/11/19 16:00 30 06/11/19 16:00 Mechanical Ventilator 06/11/19 16:00 71 06/11/19 16:00 98.2 69 18 153/79 (103) 98 06/11/19 15:14 69 17 30 06/11/19 13:24 67 16 30 06/11/19 12:00 30 06/11/19 12:00 Mechanical Ventilator 06/11/19 12:00 97.9 63 16 105/59 (74) 99 06/11/19 11:27 68 06/11/19 11:04 67 16 30 06/11/19 09:22 67 16 30 06/11/19 08:16 64 138/98 06/11/19 08:00 98.5 64 16 138/98 (111) 99 06/11/19 08:00 30 06/11/19 08:00 Mechanical Ventilator 06/11/19 07:43 66 06/11/19 07:08 63 16 30 06/11/19 05:30 66 152/79 (103) 06/11/19 04:50 67 16 30 06/11/19 04:08 168/88 06/11/19 04:00 Mechanical Ventilator 06/11/19 04:00 30 06/11/19 04:00 66 06/11/19 04:00 98.0 69 18 168/88 (114) 96 06/11/19 02:51 68 16 30 06/11/19 01:05 65 16 30 06/11/19 00:00 64 06/11/19 00:00 98.1 67 18 141/76 (97) 97 06/11/19 00:00 Mechanical Ventilator 06/10/19 23:00 66 16 30 06/10/19 21:18 67 16 30 Intake and Output 06/10/19 06/11/19 19:00 07:00 Intake Total 720 ml 930 ml Output Total 230 ml 325 ml Balance 490 ml 605 ml Free Water 100 ml IV Total 110 ml 110 ml Tube Feeding 610 ml 720 ml Output Urine Total 230 ml 325 ml # Bowel Movements 4 4 Laboratory Tests 06/11/19 03:05: White Blood Count 7.3, Red Blood Count 2.95L, Hemoglobin 8.8L, Hematocrit 29.7L , Mean Corpuscular Volume 101H, Mean Corpuscular Hemoglobin 29.7, Mean Corpuscular Hemoglobin Concent 29.5L, Red Cell Distribution Width 23.4H, Platelet Count 161, Mean Platelet Volume 7.3, Neutrophils (%) (Auto) 60.8, Lymphocytes (%) (Auto) 28.5, Monocytes (%) (Auto) 5.5, Eosinophils (%) (Auto) 4.4H, Basophils (%) (Auto) 0.7, Sodium Level 147H, Potassium Level 5.1, Chloride Level 114H, Carbon Dioxide Level 27, Anion Gap 6, Blood Urea Nitrogen 43H, Creatinine 1.3, Estimat Glomerular Filtration Rate , Glucose Level 281H, Calcium Level 8.8 Height (Feet): 5 Height (Inches): 5.00 Weight (Pounds): 199 Cardiovascular: normal rate Respiratory/Chest: lungs clear Abdomen: soft Glendy Taylor MD Jun 11, 2019 20:46
[2019-06-11] MEDS: Piperacillin/Tazobactam 3.375 GM in NS 110 ML IVPB SCH (21:18)
[2019-06-12] VITALS: BP 144/72
--- NOTE | 2019-06-12 03:30 | NUR ---
NURSE NOTES: Patient turned and repositioned,oral care provided,clean and dry.Will continue to monitor.
[2019-06-12 04:00] VITALS: BP 136/68
[2019-06-12 06:28] LABS: BASOPHILS % (AUTO) 0.8 % (0.0-2.0); EOSINOPHILS % (AUTO) 3.8 % (0.0-3.0); HEMATOCRIT 31.6 % (37.0-47.0); HEMOGLOBIN 9.3 G/DL (12.0-16.0); LYMPHOCYTES % (AUTO) 29.7 % (20.0-45.0); MEAN CORPUSCULAR VOLUME 101 FL (80-99); NEUTROPHILS % (AUTO) 60.8 % (45.0-75.0); PLATELET COUNT 166 K/UL (150-450); RED BLOOD COUNT 3.11 M/UL (4.20-5.40); RED CELL DISTRIBUTION WIDTH 23.3 % (11.6-14.8); WHITE BLOOD COUNT 8.9 K/UL (4.8-10.8)
[2019-06-12 06:38] LABS: ANION GAP 6 mmol/L (5-15); BLOOD UREA NITROGEN 45 mg/dL (7-18); CALCIUM 9.3 MG/DL (8.5-10.1); CARBON DIOXIDE 26 MMOL/L (21-32); CHLORIDE 117 MMOL/L (98-107); CREATININE 1.3 MG/DL (0.55-1.30); SODIUM 150 MMOL/L (136-145)
[2019-06-12 06:44] LABS: POTASSIUM 6.3 MMOL/L (3.5-5.1)
--- NOTE | 2019-06-12 06:54 | NUR ---
NURSE NOTES: Received a critical lab result of K 6.3.Charge nurse aware,next shift will endorse,charge nurse aware.
[2019-06-12] MEDS: Piperacillin/Tazobactam 3.375 GM in NS 110 ML IVPB SCH ×3 (07:05→21:06)
--- NOTE | 2019-06-12 07:07 | NUR ---
RESPIRATORY NOTE: pt on current vent orders with no signs of resp distress. pt is vent dependent with trach size; shiley 8 secured via trach tie/guard. alarms are set and audible with ambu bag and back up trach at bedside. no redness seen around stoma. will cont to monitor.
--- NOTE | 2019-06-12 07:09 | NUR ---
HAND-OFF: Report given to HORTENCIA Napoles.Patient stable,sleeping.K 6.3 result endorsed.
--- NOTE | 2019-06-12 07:15 | NUR ---
NURSE NOTES: Report received from Anne BURNETT. Pt alert and oriented x 1-2, follows simple commands. Pt on monitor technician, SR. Pt on trached to vent AC 16, TV 500, 30% fiO2 and PEEP 5. Pt on GTF Glucerna 1.5 at 40 cc/hr. Purewick intact draining clear urine. LSC 22 G noted and intact. Safety measures in place with bed locked and in lowest position, side rails x3 up and bed alarm on. Will continue to monitor and continue plan of care.
[2019-06-12 08:00] VITALS: BP 157/88
[2019-06-12] MEDS: Bactrim Susp 20ml GT SCH ×2 (08:26→21:04)
[2019-06-12] MEDS: Pantoprazole Inj IV SCH (08:27)
[2019-06-12] MEDS: Metoprolol 25mg tab GT SCH ×2 (08:27→21:05)
[2019-06-12] MEDS: Heparin 5000 units/ml inj SUBQ SCH ×2 (08:33→21:05)
[2019-06-12] MEDS ORDERED: Sodium Polystyrene Sulfonate 15gm Powder ORAL SCH (09:00)
--- NOTE | 2019-06-12 09:00 | General Progress Note ---
Assessment/Plan Status: progressing, unchanged Assessment/Plan: (1) GI bleed ICD Codes: K92.2 - Gastrointestinal hemorrhage, unspecified SNOMED: 87799046 (2) Black tarry stools ICD Codes: K92.1 - [place] SNOMED: 019687701 (3) Severe sepsis ICD Codes: A41.9 - Sepsis, unspecified organism; R65.20 - Severe sepsis without septic shock SNOMED: 35501494 (4) G tube feedings ICD Codes: Z93.1 - Gastrostomy status SNOMED: 014706768, 726621733, 240356506 (5) Anemia in chronic kidney disease (CKD) ICD Codes: N18.9 - Chronic kidney disease, unspecified; D63.1 - Anemia in chronic kidney disease SNOMED: 766506474 Qualifiers: Qualified Codes: N18.2 - Chronic kidney disease, stage 2 (mild); D63.1 - Anemia in chronic kidney disease Status: unchanged Status Narrative Discussed with Dr. Gentile. Assessment/Plan SUMMARY OF FINDINGS: Gastritis, otherwise normal upper endoscopic examination. G-tube in place without any obvious bleeding on the G-tube site. RECOMMENDATIONS: 1. Follow pathology. 2. Resume diet. 3. Monitor labs. 4. Transfuse as needed. 5. PPI daily. Subjective ROS Limited/Unobtainable: No Allergies: Coded Allergies: No Known Allergies (Unverified , 04/12/19) Objective Last 24 Hour Vital Signs Date Time Temp Pulse Resp B/P (MAP) Pulse Ox O2 Delivery O2 Flow Rate FiO2 06/12/19 08:56 82 19 30 06/12/19 08:27 67 157/88 06/12/19 08:00 98.4 67 18 157/88 (111) 97 06/12/19 08:00 30 06/12/19 08:00 Mechanical Ventilator 06/12/19 07:06 70 16 30 06/12/19 04:56 74 16 30 06/12/19 04:00 98.8 65 18 136/68 (90) 100 06/12/19 04:00 30 06/12/19 04:00 Mechanical Ventilator 06/12/19 03:35 64 06/12/19 03:23 76 16 30 06/12/19 01:09 78 18 30 06/12/19 00:00 Mechanical Ventilator 06/12/19 00:00 98.4 71 18 144/72 (96) 100 06/12/19 00:00 30 06/11/19 23:48 67 06/11/19 23:00 76 18 30 06/11/19 21:48 74 17 30 06/11/19 21:18 153 88/74 06/11/19 20:00 Mechanical Ventilator 06/11/19 20:00 69 06/11/19 20:00 30 06/11/19 20:00 98.1 66 20 153/80 (104) 99 06/11/19 18:50 71 20 30 06/11/19 17:08 69 20 30 06/11/19 16:00 30 06/11/19 16:00 Mechanical Ventilator 06/11/19 16:00 71 06/11/19 16:00 98.2 69 18 153/79 (103) 98 06/11/19 15:14 69 17 30 06/11/19 13:24 67 16 30 06/11/19 12:00 30 06/11/19 12:00 Mechanical Ventilator 06/11/19 12:00 97.9 63 16 105/59 (74) 99 06/11/19 11:27 68 06/11/19 11:04 67 16 30 06/11/19 09:22 67 16 30 Intake and Output 06/11/19 06/12/19 19:00 07:00 Intake Total 760 ml 660.00 ml Output Total 1300 ml 350 ml Balance -540 ml 310.00 ml Free Water 110 ml IV Total 110.00 ml Tube Feeding 660 ml 440 ml Other 100 ml Output Urine Total 1300 ml 350 ml # Bowel Movements 2 3 Laboratory Tests 06/12/19 03:33: White Blood Count 8.9, Red Blood Count 3.11L, Hemoglobin 9.3L, Hematocrit 31.6L , Mean Corpuscular Volume 101H, Mean Corpuscular Hemoglobin 29.9, Mean Corpuscular Hemoglobin Concent 29.5L, Red Cell Distribution Width 23.3H, Platelet Count 166, Mean Platelet Volume 6.9, Neutrophils (%) (Auto) 60.8, Lymphocytes (%) (Auto) 29.7, Monocytes (%) (Auto) 5.0, Eosinophils (%) (Auto) 3.8H, Basophils (%) (Auto) 0.8, Sodium Level 150H, Potassium Level 6.3*H, Chloride Level 117H, Carbon Dioxide Level 26, Anion Gap 6, Blood Urea Nitrogen 45H, Creatinine 1.3, Estimat Glomerular Filtration Rate , Glucose Level 202H, Calcium Level 9.3 Height (Feet): 5 Height (Inches): 5.00 Weight (Pounds): 203 General Appearance: no apparent distress EENT: normal ENT inspection Neck: supple Cardiovascular: normal rate Respiratory/Chest: decreased breath sounds Abdomen: normal bowel sounds, non tender, soft Extremities: non-tender Darron Gentile MD Jun 12, 2019 08:59
--- NOTE | 2019-06-12 09:16 | Pulmonology Progress Note ---
Assessment/Plan Assessment/Plan ASSESSMENT Acute on chronic resp failure Sepsis , likely secondary to PNA HCA PNA Acute metabolic encephalopathy Acute kidney injury on chronic renal disease Troponin leak Congestive heart failure , diastolic, acute on chronic Severe pulmonary hypertension Severe aortic stenosis Moderate mitral regurgitation Dysphagia, feeding by G-tube History of CVA with right hemiplegia DM HTN heart disease Anemia of chronic kidney disease GI bleeding s/p EGD 06/09 Gastritis E/ lyte abnormalities: hyper K, hyper Na PLAN OF CARE LOVE vent support, pulm toilet, trach care ABG stable on current settings, keep as is abx as per ID recs fup with CXR GP bacteremia likely contaminant -as per ID strict aspiration precaution ; tube feeding give 250 mL D5W now, then start free water flushes via G tube fup with BMP DVT prophylaxis diuresis with close monitoring of volumes and cardiorenal parameters BP management with BB and Lasix elev troponin likely troponin leak as per cardio atrial flutter spontaneously terminated Echo with preserved EF, grade 2 diastolic dysfunction , severe , moderate MRand severe pulmonary HTN BS management with SSI monitor H&H with goal to keep Hgb >7 above 7 ; CEA WNL; stool OB + s/p EGD 06/09 +gastritis ; f/up with biopsy results monitor renal parameters lytes bowel regimen supportive care case discussed and evaluated by supervising physician Subjective Allergies: Coded Allergies: No Known Allergies (Unverified , 04/12/19) Subjective afebrile, no leukocytosis No signs of respiratory distress on current vent setting KCL supplement dc 06/11 e/lyte abnormalcies with K-6.3, Na 150 and BUN 45 Objective Last 24 Hour Vital Signs Date Time Temp Pulse Resp B/P (MAP) Pulse Ox O2 Delivery O2 Flow Rate FiO2 06/12/19 08:56 82 19 30 06/12/19 08:27 67 157/88 06/12/19 08:00 98.4 67 18 157/88 (111) 97 06/12/19 08:00 30 06/12/19 08:00 Mechanical Ventilator 06/12/19 07:06 70 16 30 06/12/19 04:56 74 16 30 06/12/19 04:00 98.8 65 18 136/68 (90) 100 06/12/19 04:00 30 06/12/19 04:00 Mechanical Ventilator 06/12/19 03:35 64 06/12/19 03:23 76 16 30 06/12/19 01:09 78 18 30 06/12/19 00:00 Mechanical Ventilator 06/12/19 00:00 98.4 71 18 144/72 (96) 100 06/12/19 00:00 30 06/11/19 23:48 67 06/11/19 23:00 76 18 30 06/11/19 21:48 74 17 30 06/11/19 21:18 153 88/74 06/11/19 20:00 Mechanical Ventilator 06/11/19 20:00 69 06/11/19 20:00 30 06/11/19 20:00 98.1 66 20 153/80 (104) 99 06/11/19 18:50 71 20 30 06/11/19 17:08 69 20 30 06/11/19 16:00 30 06/11/19 16:00 Mechanical Ventilator 06/11/19 16:00 71 06/11/19 16:00 98.2 69 18 153/79 (103) 98 06/11/19 15:14 69 17 30 06/11/19 13:24 67 16 30 06/11/19 12:00 30 06/11/19 12:00 Mechanical Ventilator 06/11/19 12:00 97.9 63 16 105/59 (74) 99 06/11/19 11:27 68 06/11/19 11:04 67 16 30 06/11/19 09:22 67 16 30 Intake and Output 06/11/19 06/12/19 19:00 07:00 Intake Total 760 ml 660.00 ml Output Total 1300 ml 350 ml Balance -540 ml 310.00 ml Free Water 110 ml IV Total 110.00 ml Tube Feeding 660 ml 440 ml Other 100 ml Output Urine Total 1300 ml 350 ml # Bowel Movements 2 3 Objective General Appearance: no acute distress, awake, vent dependent female in Vent AC 500-30%-16 HEENT: normocephalic, atraumatic, status post trach - Shiley #8, secretions small, thick, yellow Respiratory/Chest: no respiratory distress, no accessory muscle use, rhonchi Cardiovascular: normal rate - SR with frequent PAC on tele Abdomen: normal bowel sounds, soft, non tender, G tube with TF Extremities: no edema Neurologic/Psychiatric: abnormal gait /bedridden , awake, not responsive Musculoskeletal: atrophy BLE Laboratory Tests 06/12/19 03:33: White Blood Count 8.9, Red Blood Count 3.11L, Hemoglobin 9.3L, Hematocrit 31.6L , Mean Corpuscular Volume 101H, Mean Corpuscular Hemoglobin 29.9, Mean Corpuscular Hemoglobin Concent 29.5L, Red Cell Distribution Width 23.3H, Platelet Count 166, Mean Platelet Volume 6.9, Neutrophils (%) (Auto) 60.8, Lymphocytes (%) (Auto) 29.7, Monocytes (%) (Auto) 5.0, Eosinophils (%) (Auto) 3.8H, Basophils (%) (Auto) 0.8, Sodium Level 150H, Potassium Level 6.3*H, Chloride Level 117H, Carbon Dioxide Level 26, Anion Gap 6, Blood Urea Nitrogen 45H, Creatinine 1.3, Estimat Glomerular Filtration Rate , Glucose Level 202H, Calcium Level 9.3 Current Medications Medications (Trade) Dose Ordered Sig/Kenisha Route PRN Reason Start Time Stop Time Status Last Admin Dose Admin Acetaminophen (Tylenol) 650 mg Q4H PRN GT FEVER (temp>100.5 F) 06/09/19 14:30 07/04/19 13:29 Albuterol/ Ipratropium (Albuterol/ Ipratropium) 3 ml Q4H PRN HHN Shortness of Breath 06/11/19 12:00 06/16/19 11:59 Clonidine HCl (Catapres Tab) 0.1 mg Q6H PRN GT For High Blood Pressure 06/09/19 14:30 07/09/19 07:59 06/11/19 04:08 Clopidogrel Bisulfate (Plavix) 75 mg DAILY GT 06/12/19 09:00 07/12/19 08:59 Dextrose (Dextrose 50%) 25 ml Q30M PRN IV Hypoglycemia 06/06/19 13:30 07/04/19 15:21 Dextrose (Dextrose 50%) 50 ml Q30M PRN IV hypoglycemia 06/06/19 13:30 07/04/19 15:29 Furosemide (Lasix) 40 mg DAILY IV 06/10/19 09:00 07/04/19 20:59 06/12/19 08:28 Heparin Sodium (Porcine) (Heparin 5000 units/ml) 5,000 units EVERY 12 HOURS SUBQ 06/06/19 21:00 9/8/19 20:59 06/12/19 08:33 Lorazepam (Ativan 2mg/ml 1ml) 2 mg Q2H PRN IV For Anxiety 06/11/19 12:00 06/16/19 11:59 Metoprolol Tartrate (Lopressor) 25 mg EVERY 12 HOURS GT 06/09/19 21:00 07/04/19 20:59 06/12/19 08:27 Morphine Sulfate (Morphine Sulfate) 4 mg Q4H PRN IVP Severe Pain (Pain Scale 7-10) 06/11/19 12:00 06/16/19 11:59 Ondansetron HCl (Zofran) 4 mg Q6H PRN IVP Nausea & Vomiting 06/06/19 13:30 07/04/19 13:29 Pantoprazole (Protonix) 40 mg DAILY IV 06/07/19 09:00 07/05/19 08:59 06/12/19 08:27 Piperacillin Sod/ Tazobactam Sod 3.375 gm/Sodium Chloride 110 ml @ 27.5 mls/hr EVERY 8 HOURS IVPB 06/11/19 22:00 06/18/19 21:59 06/12/19 07:05 Polyethylene Glycol (Miralax) 17 gm DAILYPRN PRN GT Constipation 06/09/19 14:30 07/04/19 13:29 Sodium Polystyrene Sulfonate (Kayexalate) 30 gm ONCE ORAL 06/12/19 09:00 06/12/19 10:00 06/12/19 08:27 Trimethoprim/ Sulfamethoxazole (Bactrim-DS) 20 ml EVERY 12 HOURS GT 06/10/19 12:00 06/17/19 11:59 06/12/19 08:26 Stacy Dsouza NP Jun 12, 2019 09:16
--- NOTE | 2019-06-12 10:01 | Cardiology Progress Note ---
Assessment/Plan Status: stable Assessment/Plan Assessment/Plan Assessment/Plan 1. CHF Diastolic acute on chronic with BNP of 35,000. On Lasix 40 mg IV b.i.d. -> transition to per GT Monitor I/O and renal function Echo EF of 55% to 60%. 2. Hypertension. On Lopressor 25 bid and Lasix 40 IV daily 3. History of atrial flutter that self-terminated. No indication for ablation 4. Troponin leak and CAD with inferolateral T-wave inversion, levels flat and no CP. Could be due to severe anemia Hb 7.0. On Metoprolol 25 bid and Plavix Outpatient stress test when stable 5. Sepsis with elevated white count. On IV antibiotics. 6. Ventilator-dependent respiratory failure, status post tracheostomy on April. 7. Dysphagia, status post PEG tube on April 22, 2019. 8. History of CVA and hemiplegia. 9. Nonverbal status. 10. Anemia status post blood transfusion 06/05/19 Stool OB positive. EGD/Colonoscopy per Gi 11. Status post renal failure. BUN and creatinine is 15 and 1.3. 12. Lactic acidosis, likely due to sepsis. 13. Hypokalemia, Replaced -resolved 14. Hypernatremia -IV fluids/free water -Reduce lasix to daily 15: severe Peak aortic valve gradient of 115 mmHg and a mean of 76 mmHg. Aortic valve area 0.4 cm2 calculated by continuity equation. Poor prognosis, not a surgical candidate Subjective Cardiovascular: Reports: no symptoms Respiratory: Reports: no symptoms Gastrointestinal/Abdominal: Reports: no symptoms Genitourinary: Reports: no symptoms Subjective Coverage for [place] No acute events, on PEEP, tolerating feeds, no fever, no distress, BP elevated Objective Last 24 Hour Vital Signs Date Time Temp Pulse Resp B/P (MAP) Pulse Ox O2 Delivery O2 Flow Rate FiO2 06/12/19 08:56 82 19 30 06/12/19 08:27 67 157/88 06/12/19 08:00 98.4 67 18 157/88 (111) 97 06/12/19 08:00 70 06/12/19 08:00 30 06/12/19 08:00 Mechanical Ventilator 06/12/19 07:06 70 16 30 06/12/19 04:56 74 16 30 06/12/19 04:00 98.8 65 18 136/68 (90) 100 06/12/19 04:00 30 06/12/19 04:00 Mechanical Ventilator 06/12/19 03:35 64 06/12/19 03:23 76 16 30 06/12/19 01:09 78 18 30 06/12/19 00:00 Mechanical Ventilator 06/12/19 00:00 98.4 71 18 144/72 (96) 100 06/12/19 00:00 30 06/11/19 23:48 67 06/11/19 23:00 76 18 30 06/11/19 21:48 74 17 30 06/11/19 21:18 153 88/74 06/11/19 20:00 Mechanical Ventilator 06/11/19 20:00 69 06/11/19 20:00 30 06/11/19 20:00 98.1 66 20 153/80 (104) 99 06/11/19 18:50 71 20 30 06/11/19 17:08 69 20 30 06/11/19 16:00 30 06/11/19 16:00 Mechanical Ventilator 06/11/19 16:00 71 06/11/19 16:00 98.2 69 18 153/79 (103) 98 06/11/19 15:14 69 17 30 06/11/19 13:24 67 16 30 06/11/19 12:00 30 06/11/19 12:00 Mechanical Ventilator 06/11/19 12:00 97.9 63 16 105/59 (74) 99 06/11/19 11:27 68 06/11/19 11:04 67 16 30 General Appearance: no apparent distress, alert EENT: PERRL/EOMI, normal ENT inspection, TMs normal, pharynx normal Neck: non-tender, normal alignment, supple, normal inspection, no JVD Rhythm: NSR Cardiovascular: normal peripheral pulses, normal rate, regular rhythm Respiratory/Chest: chest wall non-tender, lungs clear Abdomen: normal bowel sounds, non tender, soft, no organomegaly, no mass Extremities: normal range of motion, non-tender, normal inspection, no calf tenderness, no swelling Neurologic: french comber II-XII grossly normal, no motor/sensory deficits Intake and Output 06/11/19 06/12/19 19:00 07:00 Intake Total 760 ml 660.00 ml Output Total 1300 ml 350 ml Balance -540 ml 310.00 ml Free Water 110 ml IV Total 110.00 ml Tube Feeding 660 ml 440 ml Other 100 ml Output Urine Total 1300 ml 350 ml # Bowel Movements 2 3 Laboratory Tests Test 06/12/19 03:33 White Blood Count 8.9 K/UL (4.8-10.8) Red Blood Count 3.11 M/UL (4.20-5.40) L Hemoglobin 9.3 G/DL (12.0-16.0) L Hematocrit 31.6 % (37.0-47.0) L Mean Corpuscular Volume 101 FL (80-99) H Mean Corpuscular Hemoglobin 29.9 PG (27.0-31.0) Mean Corpuscular Hemoglobin Concent 29.5 G/DL (32.0-36.0) L Red Cell Distribution Width 23.3 % (11.6-14.8) H Platelet Count 166 K/UL (150-450) Mean Platelet Volume 6.9 FL (6.5-10.1) Neutrophils (%) (Auto) 60.8 % (45.0-75.0) Lymphocytes (%) (Auto) 29.7 % (20.0-45.0) Monocytes (%) (Auto) 5.0 % (1.0-10.0) Eosinophils (%) (Auto) 3.8 % (0.0-3.0) H Basophils (%) (Auto) 0.8 % (0.0-2.0) Sodium Level 150 MMOL/L (136-145) H Potassium Level 6.3 MMOL/L (3.5-5.1) *H Chloride Level 117 MMOL/L (98-107) H Carbon Dioxide Level 26 MMOL/L (21-32) Anion Gap 6 mmol/L (5-15) Blood Urea Nitrogen 45 mg/dL (7-18) H Creatinine 1.3 MG/DL (0.55-1.30) Estimat Glomerular Filtration Rate mL/min (>60) Glucose Level 202 MG/DL (74-106) H Calcium Level 9.3 MG/DL (8.5-10.1) Gildardo Galeana MD Jun 12, 2019 10:01
[2019-06-12] MEDS ORDERED: D5W 275 ML IV SCH (11:00)
--- NOTE | 2019-06-12 11:48 | Infectious Diseases Prog Note ---
Assessment/Plan Assessment/Plan Assessment: Sepsis -likely 2ry to PNA -06/07 CXR: Bilateral infiltrates versus pulmonary edema. No interval change -06/04 CXR: Bilateral mixed interstitial and alveolar airspace opacities, slightly increased compared to the prior exam of 05/20/2019. Findings may be related to pulmonary edema and/or multifocal pneumonia. Clinical correlation/ follow-up recommended. Tracheostomy and gastrostomy tubes noted. -sp cx S. maltophila (R levaquin, S bactrim), DELFTIA ACIDOVORAN (only Antibiotic sensitivity reported is Zosyn which is S). 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 maltophila (Levaquin R) -06/11 SP Meropenem #7 -06/10 SP Levaquin #6 -06/09 SP IV Vancomycin #6 -06/05 SP Zosyn #2 -05/20 SP Zosyn #3 -05/18 SP IV Vancomycin #3 -04/28/19 SP Cefepime #6 -04/22 SP Meropenem #5 -04/20 SP Vancomycin #8 - 04/18/19 S/P Cefepime #6 -f/u cx -Monitor CBC/CMP, temperatures -trach/peg/ICU care -aspiration precautions -f.u repeat Bcx Thank you for this consultation. Will continue to follow along with you. Subjective Allergies: Coded Allergies: No Known Allergies (Unverified , 04/12/19) Subjective Afebrile Satting well on Vent Objective Vital Signs Last 24 Hour Vital Signs Date Time Temp Pulse Resp B/P (MAP) Pulse Ox O2 Delivery O2 Flow Rate FiO2 06/12/19 11:23 75 22 30 06/12/19 08:56 82 19 30 06/12/19 08:27 67 157/88 06/12/19 08:00 98.4 67 18 157/88 (111) 97 06/12/19 08:00 70 06/12/19 08:00 30 06/12/19 08:00 Mechanical Ventilator 06/12/19 07:06 70 16 30 06/12/19 04:56 74 16 30 06/12/19 04:00 98.8 65 18 136/68 (90) 100 06/12/19 04:00 30 06/12/19 04:00 Mechanical Ventilator 06/12/19 03:35 64 06/12/19 03:23 76 16 30 06/12/19 01:09 78 18 30 06/12/19 00:00 Mechanical Ventilator 06/12/19 00:00 98.4 71 18 144/72 (96) 100 06/12/19 00:00 30 06/11/19 23:48 67 06/11/19 23:00 76 18 30 06/11/19 21:48 74 17 30 06/11/19 21:18 153 88/74 06/11/19 20:00 Mechanical Ventilator 06/11/19 20:00 69 06/11/19 20:00 30 06/11/19 20:00 98.1 66 20 153/80 (104) 99 06/11/19 18:50 71 20 30 06/11/19 17:08 69 20 30 06/11/19 16:00 30 06/11/19 16:00 Mechanical Ventilator 06/11/19 16:00 71 06/11/19 16:00 98.2 69 18 153/79 (103) 98 06/11/19 15:14 69 17 30 06/11/19 13:24 67 16 30 06/11/19 12:00 30 06/11/19 12:00 Mechanical Ventilator 06/11/19 12:00 97.9 63 16 105/59 (74) 99 Height (Feet): 5 Height (Inches): 5.00 Weight (Pounds): 203 Objective GENERAL: Trach, vent, nonverbal. CARDIOVASCULAR: RRR, No murmurs. LUNGS: Poor air exchange. No W ABDOMEN: Bowel sounds distant. ND Laboratory Tests Test 06/12/19 03:33 White Blood Count 8.9 K/UL (4.8-10.8) Red Blood Count 3.11 M/UL (4.20-5.40) L Hemoglobin 9.3 G/DL (12.0-16.0) L Hematocrit 31.6 % (37.0-47.0) L Mean Corpuscular Volume 101 FL (80-99) H Mean Corpuscular Hemoglobin 29.9 PG (27.0-31.0) Mean Corpuscular Hemoglobin Concent 29.5 G/DL (32.0-36.0) L Red Cell Distribution Width 23.3 % (11.6-14.8) H Platelet Count 166 K/UL (150-450) Mean Platelet Volume 6.9 FL (6.5-10.1) Neutrophils (%) (Auto) 60.8 % (45.0-75.0) Lymphocytes (%) (Auto) 29.7 % (20.0-45.0) Monocytes (%) (Auto) 5.0 % (1.0-10.0) Eosinophils (%) (Auto) 3.8 % (0.0-3.0) H Basophils (%) (Auto) 0.8 % (0.0-2.0) Sodium Level 150 MMOL/L (136-145) H Potassium Level 6.3 MMOL/L (3.5-5.1) *H Chloride Level 117 MMOL/L (98-107) H Carbon Dioxide Level 26 MMOL/L (21-32) Anion Gap 6 mmol/L (5-15) Blood Urea Nitrogen 45 mg/dL (7-18) H Creatinine 1.3 MG/DL (0.55-1.30) Estimat Glomerular Filtration Rate mL/min (>60) Glucose Level 202 MG/DL (74-106) H Calcium Level 9.3 MG/DL (8.5-10.1) Current Medications Medications (Trade) Dose Ordered Sig/Kenisha Route PRN Reason Start Time Stop Time Status Last Admin Dose Admin Acetaminophen (Tylenol) 650 mg Q4H PRN GT FEVER (temp>100.5 F) 06/09/19 14:30 07/04/19 13:29 Albuterol/ Ipratropium (Albuterol/ Ipratropium) 3 ml Q4H PRN HHN Shortness of Breath 06/11/19 12:00 06/16/19 11:59 Clonidine HCl (Catapres Tab) 0.1 mg Q6H PRN GT For High Blood Pressure 06/09/19 14:30 07/09/19 07:59 06/11/19 04:08 Clopidogrel Bisulfate (Plavix) 75 mg DAILY GT 06/12/19 09:00 07/12/19 08:59 06/12/19 09:12 Dextrose 275 ml @ 1,100 mls/hr ONCE IV 06/12/19 11:00 07/12/19 10:59 06/12/19 11:03 Dextrose (Dextrose 50%) 25 ml Q30M PRN IV Hypoglycemia 06/06/19 13:30 07/04/19 15:21 Dextrose (Dextrose 50%) 50 ml Q30M PRN IV hypoglycemia 06/06/19 13:30 07/04/19 15:29 Furosemide (Lasix) 40 mg DAILY IV 06/10/19 09:00 07/04/19 20:59 06/12/19 08:28 Heparin Sodium (Porcine) (Heparin 5000 units/ml) 5,000 units EVERY 12 HOURS SUBQ 06/06/19 21:00 07/04/19 20:59 06/12/19 08:33 Lorazepam (Ativan 2mg/ml 1ml) 2 mg Q2H PRN IV For Anxiety 06/11/19 12:00 06/16/19 11:59 Metoprolol Tartrate (Lopressor) 25 mg EVERY 12 HOURS GT 06/09/19 21:00 07/04/19 20:59 06/12/19 08:27 Morphine Sulfate (Morphine Sulfate) 4 mg Q4H PRN IVP Severe Pain (Pain Scale 7-10) 06/11/19 12:00 06/16/19 11:59 Ondansetron HCl (Zofran) 4 mg Q6H PRN IVP Nausea & Vomiting 06/06/19 13:30 07/04/19 13:29 Pantoprazole (Protonix) 40 mg DAILY IV 06/07/19 09:00 07/05/19 08:59 06/12/19 08:27 Piperacillin Sod/ Tazobactam Sod 3.375 gm/Sodium Chloride 110 ml @ 27.5 mls/hr EVERY 8 HOURS IVPB 06/11/19 22:00 06/18/19 21:59 06/12/19 07:05 Polyethylene Glycol (Miralax) 17 gm DAILYPRN PRN GT Constipation 06/09/19 14:30 07/04/19 13:29 Trimethoprim/ Sulfamethoxazole (Bactrim-DS) 20 ml EVERY 12 HOURS GT 06/10/19 12:00 06/17/19 11:59 06/12/19 08:26 Gildardo Gonsalves MD Jun 12, 2019 11:48
[2019-06-12 12:00] VITALS: BP 153/88
[2019-06-12 16:00] VITALS: BP 164/87
[2019-06-12] MEDS ORDERED: NS 275ml ONE (17:23)
[2019-06-12] MEDS ORDERED: Tubing IV Secondary IV ONE (17:23)
--- NOTE | 2019-06-12 18:59 | NUR ---
HAND-OFF: Report given to Anne BURNETT.
--- NOTE | 2019-06-12 19:00 | NUR ---
NURSE NOTES: Received bedside report from HORTENCIA Napoles.Patient stable,open eyes,following simple commands,SR on quality assurance monitor chassis,tract-vent Shiley 8 AC 16 TV 500 FiO2 30% PEEP 5 tolerated settings well,GT running with Glucerna 1.5 @ 40 ml/hr no residual at this moment,BS active in all quadrants, IV asymptomatic intact on L breast G 22 TKO.Bed secured,family at a bedside, call light within a reach,will continue to monitor and follow POC.
--- NOTE | 2019-06-12 19:23 | General Progress Note ---
Assessment/Plan Problem List: (1) CAD (coronary artery disease) ICD Codes: I25.10 - Atherosclerotic heart disease of [place] coronary artery without angina pectoris SNOMED: 40847463 (2) GI bleed ICD Codes: K92.2 - Gastrointestinal hemorrhage, unspecified SNOMED: 23111350 (3) Hypertensive heart disease ICD Codes: I11.9 - Hypertensive heart disease without heart failure SNOMED: 69411657 (4) Diabetes mellitus ICD Codes: E11.9 - Type 2 diabetes mellitus without complications SNOMED: 46930617 (5) Right hemiplegia ICD Codes: G81.91 - Hemiplegia, unspecified affecting right dominant side SNOMED: 997713950 (6) 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 ICD Codes: E11.22 - Type 2 diabetes mellitus with diabetic chronic kidney disease; N18.4 - Chronic kidney disease, stage 4 (severe) SNOMED: 20936961, 242087523, 676338351 (7) At high risk for aspiration ICD Codes: Z91.89 - Other specified personal risk factors, not elsewhere classified SNOMED: 385980016 (8) UTI (urinary tract infection) ICD Codes: N39.0 - Urinary tract infection, site not specified SNOMED: 82397196 (9) Pulmonary hypertension ICD Codes: I27.20 - Pulmonary hypertension, unspecified SNOMED: 36471311 (10) Anemia in chronic kidney disease (CKD) ICD Codes: N18.9 - Chronic kidney disease, unspecified; D63.1 - Anemia in chronic kidney disease SNOMED: 918748904 Qualifiers: Qualified Codes: N18.2 - Chronic kidney disease, stage 2 (mild); D63.1 - Anemia in chronic kidney disease (11) Chronic respiratory failure ICD Codes: J96.10 - Chronic respiratory failure, unspecified whether with hypoxia or hypercapnia SNOMED: 11181564 Status: stable Assessment/Plan: gi bleed no fever check lytes no acute events check h/h no change afebrile Subjective ROS Limited/Unobtainable: Yes Allergies: Coded Allergies: No Known Allergies (Unverified , 04/12/19) Objective Last 24 Hour Vital Signs Date Time Temp Pulse Resp B/P (MAP) Pulse Ox O2 Delivery O2 Flow Rate FiO2 06/12/19 18:35 76 17 30 06/12/19 16:49 79 16 30 06/12/19 16:00 Mechanical Ventilator 06/12/19 16:00 70 06/12/19 16:00 99.0 66 18 164/87 (112) 96 06/12/19 16:00 30 06/12/19 14:55 73 17 30 06/12/19 13:16 72 16 30 06/12/19 12:00 30 06/12/19 12:00 70 06/12/19 12:00 Mechanical Ventilator 06/12/19 12:00 98.2 66 18 153/88 (109) 98 06/12/19 11:23 75 22 30 06/12/19 08:56 82 19 30 06/12/19 08:27 67 157/88 06/12/19 08:00 98.4 67 18 157/88 (111) 97 06/12/19 08:00 70 06/12/19 08:00 30 06/12/19 08:00 Mechanical Ventilator 06/12/19 07:06 70 16 30 06/12/19 04:56 74 16 30 06/12/19 04:00 98.8 65 18 136/68 (90) 100 06/12/19 04:00 30 06/12/19 04:00 Mechanical Ventilator 06/12/19 03:35 64 06/12/19 03:23 76 16 30 06/12/19 01:09 78 18 30 06/12/19 00:00 Mechanical Ventilator 06/12/19 00:00 98.4 71 18 144/72 (96) 100 06/12/19 00:00 30 06/11/19 23:48 67 06/11/19 23:00 76 18 30 06/11/19 21:48 74 17 30 06/11/19 21:18 153 88/74 06/11/19 20:00 Mechanical Ventilator 06/11/19 20:00 69 06/11/19 20:00 30 06/11/19 20:00 98.1 66 20 153/80 (104) 99 Intake and Output 06/11/19 06/12/19 18:59 06:59 Intake Total 790 ml 650.00 ml Output Total 1300 ml 350 ml Balance -510 ml 300.00 ml Free Water 110 ml IV Total 110.00 ml Tube Feeding 690 ml 430 ml Other 100 ml Output Urine Total 1300 ml 350 ml # Bowel Movements 2 3 Laboratory Tests 06/12/19 03:33: White Blood Count 8.9, Red Blood Count 3.11L, Hemoglobin 9.3L, Hematocrit 31.6L , Mean Corpuscular Volume 101H, Mean Corpuscular Hemoglobin 29.9, Mean Corpuscular Hemoglobin Concent 29.5L, Red Cell Distribution Width 23.3H, Platelet Count 166, Mean Platelet Volume 6.9, Neutrophils (%) (Auto) 60.8, Lymphocytes (%) (Auto) 29.7, Monocytes (%) (Auto) 5.0, Eosinophils (%) (Auto) 3.8H, Basophils (%) (Auto) 0.8, Sodium Level 150H, Potassium Level 6.3*H, Chloride Level 117H, Carbon Dioxide Level 26, Anion Gap 6, Blood Urea Nitrogen 45H, Creatinine 1.3, Estimat Glomerular Filtration Rate , Glucose Level 202H, Calcium Level 9.3 Height (Feet): 5 Height (Inches): 5.00 Weight (Pounds): 203 Cardiovascular: normal rate Respiratory/Chest: lungs clear Glendy Taylor MD Jun 12, 2019 19:23
[2019-06-12 20:00] VITALS: BP 150/92
[2019-06-13] VITALS: BP 168/94
[2019-06-13 04:00] VITALS: BP 156/90
[2019-06-13] MEDS: Piperacillin/Tazobactam 3.375 GM in NS 110 ML IVPB SCH ×2 (05:30→20:32)
[2019-06-13 05:56] LABS: BASOPHILS % (AUTO) 1.1 % (0.0-2.0); EOSINOPHILS % (AUTO) 4.8 % (0.0-3.0); HEMATOCRIT 29.1 % (37.0-47.0); HEMOGLOBIN 8.6 G/DL (12.0-16.0); MEAN CORPUSCULAR VOLUME 101 FL (80-99); MONOCYTES % (AUTO) 5.4 % (1.0-10.0); NEUTROPHILS % (AUTO) 60.6 % (45.0-75.0); PLATELET COUNT 163 K/UL (150-450); RED BLOOD COUNT 2.88 M/UL (4.20-5.40); RED CELL DISTRIBUTION WIDTH 23.2 % (11.6-14.8); WHITE BLOOD COUNT 8.3 K/UL (4.8-10.8)
[2019-06-13 05:58] LABS: ANION GAP 7 mmol/L (5-15); BLOOD UREA NITROGEN 46 mg/dL (7-18); CALCIUM 9.1 MG/DL (8.5-10.1); CARBON DIOXIDE 28 MMOL/L (21-32); CHLORIDE 116 MMOL/L (98-107); CREATININE 1.5 MG/DL (0.55-1.30); POTASSIUM 5.9 MMOL/L (3.5-5.1); SODIUM 151 MMOL/L (136-145)
--- NOTE | 2019-06-13 06:15 | General Progress Note ---
Assessment/Plan Status: stable Assessment/Plan: (1) GI bleed ICD Codes: K92.2 - Gastrointestinal hemorrhage, unspecified SNOMED: 72456686 (2) Black tarry stools ICD Codes: K92.1 - Melena SNOMED: 586195862 (3) Severe sepsis ICD Codes: A41.9 - Sepsis, unspecified organism; R65.20 - Severe sepsis without septic shock SNOMED: 82146961 (4) G tube feedings ICD Codes: Z93.1 - Gastrostomy status SNOMED: 135826400, 792438115, 792078357 (5) Anemia in chronic kidney disease (CKD) ICD Codes: N18.9 - Chronic kidney disease, unspecified; D63.1 - Anemia in chronic kidney disease SNOMED: 178325904 Qualifiers: Qualified Codes: N18.2 - Chronic kidney disease, stage 2 (mild); D63.1 - Anemia in chronic kidney disease Status: unchanged Status Narrative Discussed with Dr. Gentile. Assessment/Plan SUMMARY OF FINDINGS: Gastritis, otherwise normal upper endoscopic examination. G-tube in place without any obvious bleeding on the G-tube site. RECOMMENDATIONS: 1. Follow pathology. 2. Resume diet. 3. Monitor labs. 4. Transfuse as needed. 5. PPI daily. Subjective ROS Limited/Unobtainable: No Allergies: Coded Allergies: No Known Allergies (Unverified , 04/12/19) Objective Last 24 Hour Vital Signs Date Time Temp Pulse Resp B/P (MAP) Pulse Ox O2 Delivery O2 Flow Rate FiO2 06/13/19 04:48 76 16 30 06/13/19 04:00 98.1 72 16 156/90 (112) 97 06/13/19 04:00 Mechanical Ventilator 06/13/19 04:00 30 06/13/19 03:33 69 06/13/19 02:55 79 16 30 06/13/19 00:55 168/94 06/13/19 00:33 81 19 30 06/13/19 00:00 Mechanical Ventilator 06/13/19 00:00 30 06/13/19 00:00 98.6 72 20 168/94 (118) 97 06/12/19 23:34 71 06/12/19 22:49 74 17 30 06/12/19 21:07 77 16 30 06/12/19 21:05 81 150/92 06/12/19 20:00 Mechanical Ventilator 06/12/19 20:00 30 06/12/19 20:00 97.5 81 17 150/92 (111) 97 06/12/19 19:44 75 06/12/19 18:35 76 17 30 06/12/19 16:49 79 16 30 06/12/19 16:00 Mechanical Ventilator 06/12/19 16:00 70 06/12/19 16:00 99.0 66 18 164/87 (112) 96 06/12/19 16:00 30 06/12/19 14:55 73 17 30 06/12/19 13:16 72 16 30 06/12/19 12:00 30 06/12/19 12:00 70 06/12/19 12:00 Mechanical Ventilator 06/12/19 12:00 98.2 66 18 153/88 (109) 98 06/12/19 11:23 75 22 30 06/12/19 08:56 82 19 30 06/12/19 08:27 67 157/88 06/12/19 08:00 98.4 67 18 157/88 (111) 97 06/12/19 08:00 70 06/12/19 08:00 30 06/12/19 08:00 Mechanical Ventilator 06/12/19 07:06 70 16 30 Intake and Output 06/12/19 06/13/19 19:00 07:00 Intake Total 575.0 ml 540 ml Output Total 700 ml 600 ml Balance -125.0 ml -60 ml Free Water 100 ml IV Total 495.0 ml Tube Feeding 80 ml 440 ml Output Urine Total 700 ml 600 ml # Bowel Movements 4 2 Laboratory Tests 06/13/19 03:30: White Blood Count 8.3, Red Blood Count 2.88L, Hemoglobin 8.6L, Hematocrit 29.1L , Mean Corpuscular Volume 101H, Mean Corpuscular Hemoglobin 29.8, Mean Corpuscular Hemoglobin Concent 29.4L, Red Cell Distribution Width 23.2H, Platelet Count 163, Mean Platelet Volume 7.7, Neutrophils (%) (Auto) 60.6, Lymphocytes (%) (Auto) 28.0, Monocytes (%) (Auto) 5.4, Eosinophils (%) (Auto) 4.8H, Basophils (%) (Auto) 1.1, Sodium Level 151H, Potassium Level 5.9H, Chloride Level 116H, Carbon Dioxide Level 28, Anion Gap 7, Blood Urea Nitrogen 46H, Creatinine 1.5H, Estimat Glomerular Filtration Rate , Glucose Level 225H, Calcium Level 9.1 Height (Feet): 5 Height (Inches): 5.00 Weight (Pounds): 203 General Appearance: no apparent distress EENT: normal ENT inspection Neck: supple Cardiovascular: normal rate Abdomen: normal bowel sounds, non tender, soft Extremities: non-tender Darron Gentile MD Jun 13, 2019 06:15
--- NOTE | 2019-06-13 07:17 | NUR ---
HAND-OFF: Report given to HORTENCIA Barajsa.Patient stable.
--- NOTE | 2019-06-13 07:18 | NUR ---
NURSE NOTES: received pt from HORTENCIA Rodríguez. pt is sleeping on the bed. no SOB, no respiratory distress noted at this moment. reported from RN, pt had no dysrhythmia. call light within reach. will continue plan of care.
[2019-06-13 08:00] VITALS: BP 151/79
[2019-06-13] MEDS: Bactrim Susp 20ml GT SCH ×2 (08:31→20:32)
[2019-06-13] MEDS: Metoprolol 25mg tab GT SCH ×2 (08:32→20:35)
[2019-06-13] MEDS: Heparin 5000 units/ml inj SUBQ SCH ×2 (08:33→20:31)
[2019-06-13] MEDS: Pantoprazole Inj IV SCH ×2 (08:33→20:33)
--- NOTE | 2019-06-13 09:57 | Cardiology Progress Note ---
Assessment/Plan Status: stable Assessment/Plan Assessment/Plan Assessment/Plan 1. CHF Diastolic acute on chronic with BNP of 35,000. On Lasix 40 mg IV b.i.d. -> transition to per GT Monitor I/O and renal function Echo EF of 55% to 60%. 2. Hypertension. On Lopressor 25 bid and Lasix 40 IV daily 3. History of atrial flutter that self-terminated. No indication for ablation 4. Troponin leak and CAD with inferolateral T-wave inversion, levels flat and no CP. Could be due to severe anemia Hb 7.0. On Metoprolol 25 bid and Plavix Outpatient stress test when stable 5. Sepsis with elevated white count. On IV antibiotics. 6. Ventilator-dependent respiratory failure, status post tracheostomy on April. 7. Dysphagia, status post PEG tube on April 22, 2019. 8. History of CVA and hemiplegia. 9. Nonverbal status. 10. Anemia status post blood transfusion 06/05/19 Stool OB positive. EGD/Colonoscopy per Gi 11. Status post renal failure. BUN and creatinine is 15 and 1.3. 12. Lactic acidosis, likely due to sepsis. 13. Hypokalemia, Replaced -resolved 14. Hypernatremia -IV fluids/free water -Reduce lasix to daily 15: severe Peak aortic valve gradient of 115 mmHg and a mean of 76 mmHg. Aortic valve area 0.4 cm2 calculated by continuity equation. Poor prognosis, not a surgical candidate Subjective Cardiovascular: Reports: no symptoms Respiratory: Reports: no symptoms Gastrointestinal/Abdominal: Reports: no symptoms Genitourinary: Reports: no symptoms Subjective Coverage for txtrie No acute events, No fevers, no arrhythmias, tolerating feeds, no fever, no distress, BP elevated Objective Last 24 Hour Vital Signs Date Time Temp Pulse Resp B/P (MAP) Pulse Ox O2 Delivery O2 Flow Rate FiO2 06/13/19 08:51 67 16 30 06/13/19 08:32 62 151/79 06/13/19 08:00 30 06/13/19 08:00 30 06/13/19 08:00 Mechanical Ventilator 06/13/19 08:00 98.1 62 16 151/79 (103) 100 06/13/19 07:43 64 06/13/19 07:00 64 16 30 06/13/19 04:48 76 16 30 06/13/19 04:00 98.1 72 16 156/90 (112) 97 06/13/19 04:00 Mechanical Ventilator 06/13/19 04:00 30 06/13/19 03:33 69 06/13/19 02:55 79 16 30 06/13/19 00:55 168/94 06/13/19 00:33 81 19 30 06/13/19 00:00 Mechanical Ventilator 06/13/19 00:00 30 06/13/19 00:00 98.6 72 20 168/94 (118) 97 06/12/19 23:34 71 06/12/19 22:49 74 17 30 06/12/19 21:07 77 16 30 06/12/19 21:05 81 150/92 06/12/19 20:00 Mechanical Ventilator 06/12/19 20:00 30 06/12/19 20:00 97.5 81 17 150/92 (111) 97 06/12/19 19:44 75 06/12/19 18:35 76 17 30 06/12/19 16:49 79 16 30 06/12/19 16:00 Mechanical Ventilator 06/12/19 16:00 70 06/12/19 16:00 99.0 66 18 164/87 (112) 96 06/12/19 16:00 30 06/12/19 14:55 73 17 30 06/12/19 13:16 72 16 30 06/12/19 12:00 30 06/12/19 12:00 70 06/12/19 12:00 Mechanical Ventilator 06/12/19 12:00 98.2 66 18 153/88 (109) 98 06/12/19 11:23 75 22 30 General Appearance: no apparent distress, alert EENT: PERRL/EOMI, normal ENT inspection, TMs normal, pharynx normal Neck: non-tender, normal alignment, supple, normal inspection Rhythm: NSR Cardiovascular: normal peripheral pulses, normal rate Respiratory/Chest: chest wall non-tender, lungs clear Abdomen: normal bowel sounds, non tender, soft, no organomegaly Extremities: normal range of motion, non-tender Neurologic: collections rep II-XII grossly normal, no motor/sensory deficits Intake and Output 06/12/19 06/13/19 19:00 07:00 Intake Total 575.0 ml 691.25 ml Output Total 700 ml 600 ml Balance -125.0 ml 91.25 ml Free Water 100 ml IV Total 495.0 ml 151.25 ml Tube Feeding 80 ml 440 ml Output Urine Total 700 ml 600 ml # Bowel Movements 4 2 Laboratory Tests Test 06/13/19 03:30 White Blood Count 8.3 K/UL (4.8-10.8) Red Blood Count 2.88 M/UL (4.20-5.40) L Hemoglobin 8.6 G/DL (12.0-16.0) L Hematocrit 29.1 % (37.0-47.0) L Mean Corpuscular Volume 101 FL (80-99) H Mean Corpuscular Hemoglobin 29.8 PG (27.0-31.0) Mean Corpuscular Hemoglobin Concent 29.4 G/DL (32.0-36.0) L Red Cell Distribution Width 23.2 % (11.6-14.8) H Platelet Count 163 K/UL (150-450) Mean Platelet Volume 7.7 FL (6.5-10.1) Neutrophils (%) (Auto) 60.6 % (45.0-75.0) Lymphocytes (%) (Auto) 28.0 % (20.0-45.0) Monocytes (%) (Auto) 5.4 % (1.0-10.0) Eosinophils (%) (Auto) 4.8 % (0.0-3.0) H Basophils (%) (Auto) 1.1 % (0.0-2.0) Sodium Level 151 MMOL/L (136-145) H Potassium Level 5.9 MMOL/L (3.5-5.1) H Chloride Level 116 MMOL/L (98-107) H Carbon Dioxide Level 28 MMOL/L (21-32) Anion Gap 7 mmol/L (5-15) Blood Urea Nitrogen 46 mg/dL (7-18) H Creatinine 1.5 MG/DL (0.55-1.30) H Estimat Glomerular Filtration Rate mL/min (>60) Glucose Level 225 MG/DL (74-106) H Calcium Level 9.1 MG/DL (8.5-10.1) Gildardo Galeana MD Jun 13, 2019 09:57
[2019-06-13] MEDS ORDERED: Sodium Polystyrene Sulfonate 15gm Powder ORAL SCH (10:15)
--- NOTE | 2019-06-13 11:11 | Pulmonology Progress Note ---
Assessment/Plan Assessment/Plan ASSESSMENT Acute on chronic resp failure Sepsis , likely secondary to PNA [facility] PNA Acute metabolic encephalopathy Acute kidney injury on chronic renal disease Troponin leak Congestive heart failure , diastolic, acute on chronic Severe pulmonary hypertension Severe aortic stenosis Moderate mitral regurgitation Dysphagia, feeding by G-tube History of CVA with right hemiplegia DM HTN heart disease Anemia of chronic kidney disease GI bleeding s/p EGD 06/09 H pylori gastritis E/ lyte abnormalities: hyper K, hyper Na REMY PLAN OF CARE LOVE vent support, pulm toilet, trach care ABG stable on current settings, keep as is abx as per ID recs fup with CXR in am GP bacteremia likely contaminant -as per ID, repeated BCX negative strict aspiration precaution ; tube feeding s/p 250 mL D5W 06/12, and then started on free water flushes via G tube , na with small trend down in REMY creat up to 1.5, probably due to diuretic? nephro eval- pending DVT prophylaxis diuresis with close monitoring of volumes and cardiorenal parameters BP management with BB and Lasix elev troponin likely troponin leak as per cardio atrial flutter spontaneously terminated Echo with preserved EF, grade 2 diastolic dysfunction , severe , moderate MR and severe pulmonary HTN BS management with SSI monitor H&H with goal to keep Hgb >7 above 7 ; CEA WNL; stool OB + s/p EGD 06/09 +gastritis ; f/up with biopsy results--> H pylori gastritis Rx for H pylori - per GI monitor renal parameters lytes bowel regimen supportive care case discussed and evaluated by supervising physician Subjective Allergies: Coded Allergies: No Known Allergies (Unverified , 04/12/19) Subjective afebrile, no leukocytosis no signs of respiratory distress on current vent setting KCL supplement dc .9, creat up to 1.5 Na 146, BUN 46, K-5.9 today ( yesterdqay 6.3) Objective Last 24 Hour Vital Signs Date Time Temp Pulse Resp B/P (MAP) Pulse Ox O2 Delivery O2 Flow Rate FiO2 06/13/19 08:51 67 16 30 06/13/19 08:32 62 151/79 06/13/19 08:00 30 06/13/19 08:00 30 06/13/19 08:00 Mechanical Ventilator 06/13/19 08:00 98.1 62 16 151/79 (103) 100 8/18/19 07:43 64 06/13/19 07:00 64 16 30 06/13/19 04:48 76 16 30 06/13/19 04:00 98.1 72 16 156/90 (112) 97 06/13/19 04:00 Mechanical Ventilator 06/13/19 04:00 30 06/13/19 03:33 69 06/13/19 02:55 79 16 30 06/13/19 00:55 168/94 06/13/19 00:33 81 19 30 06/13/19 00:00 Mechanical Ventilator 06/13/19 00:00 30 06/13/19 00:00 98.6 72 20 168/94 (118) 97 06/12/19 23:34 71 06/12/19 22:49 74 17 30 06/12/19 21:07 77 16 30 06/12/19 21:05 81 150/92 06/12/19 20:00 Mechanical Ventilator 06/12/19 20:00 30 06/12/19 20:00 97.5 81 17 150/92 (111) 97 06/12/19 19:44 75 06/12/19 18:35 76 17 30 06/12/19 16:49 79 16 30 06/12/19 16:00 Mechanical Ventilator 06/12/19 16:00 70 06/12/19 16:00 99.0 66 18 164/87 (112) 96 06/12/19 16:00 30 06/12/19 14:55 73 17 30 06/12/19 13:16 72 16 30 06/12/19 12:00 30 06/12/19 12:00 70 06/12/19 12:00 Mechanical Ventilator 06/12/19 12:00 98.2 66 18 153/88 (109) 98 06/12/19 11:23 75 22 30 Intake and Output 06/12/19 06/13/19 19:00 07:00 Intake Total 575.0 ml 691.25 ml Output Total 700 ml 600 ml Balance -125.0 ml 91.25 ml Free Water 100 ml IV Total 495.0 ml 151.25 ml Tube Feeding 80 ml 440 ml Output Urine Total 700 ml 600 ml # Bowel Movements 4 2 Objective General Appearance: no acute distress, awake, vent dependent female in Vent AC 500-30%-16 HEENT: normocephalic, atraumatic, status post trach - Shiley #8, secretions small, thick, yellow Respiratory/Chest: no respiratory distress, no accessory muscle use, rhonchi Cardiovascular: normal rate - SR with frequent PAC on tele Abdomen: normal bowel sounds, soft, non tender, G tube with TF Extremities: no edema Neurologic/Psychiatric: abnormal gait /bedridden , awake, not responsive Musculoskeletal: atrophy BLE Laboratory Tests 06/13/19 03:30: White Blood Count 8.3, Red Blood Count 2.88L, Hemoglobin 8.6L, Hematocrit 29.1L , Mean Corpuscular Volume 101H, Mean Corpuscular Hemoglobin 29.8, Mean Corpuscular Hemoglobin Concent 29.4L, Red Cell Distribution Width 23.2H, Platelet Count 163, Mean Platelet Volume 7.7, Neutrophils (%) (Auto) 60.6, Lymphocytes (%) (Auto) 28.0, Monocytes (%) (Auto) 5.4, Eosinophils (%) (Auto) 4.8H, Basophils (%) (Auto) 1.1, Sodium Level 151H, Potassium Level 5.9H, Chloride Level 116H, Carbon Dioxide Level 28, Anion Gap 7, Blood Urea Nitrogen 46H, Creatinine 1.5H, Estimat Glomerular Filtration Rate , Glucose Level 225H, Calcium Level 9.1 Current Medications Medications (Trade) Dose Ordered Sig/Kenisha Route PRN Reason Start Time Stop Time Status Last Admin Dose Admin Acetaminophen (Tylenol) 650 mg Q4H PRN GT FEVER (temp>100.5 F) 06/09/19 14:30 07/04/19 13:29 Albuterol/ Ipratropium (Albuterol/ Ipratropium) 3 ml Q4H PRN HHN Shortness of Breath 06/11/19 12:00 06/16/19 11:59 Clonidine HCl (Catapres Tab) 0.1 mg Q6H PRN GT For High Blood Pressure 06/09/19 14:30 07/09/19 07:59 06/13/19 00:55 Clopidogrel Bisulfate (Plavix) 75 mg DAILY GT 06/12/19 09:00 07/12/19 08:59 06/13/19 08:32 Dextrose (Dextrose 50%) 25 ml Q30M PRN IV Hypoglycemia 06/06/19 13:30 07/04/19 15:21 Dextrose (Dextrose 50%) 50 ml Q30M PRN IV hypoglycemia 06/06/19 13:30 07/04/19 15:29 Furosemide (Lasix) 40 mg DAILY IV 06/10/19 09:00 07/04/19 20:59 06/13/19 08:32 Heparin Sodium (Porcine) (Heparin 5000 units/ml) 5,000 units EVERY 12 HOURS SUBQ 06/06/19 21:00 07/04/19 20:59 06/13/19 08:33 Lorazepam (Ativan 2mg/ml 1ml) 2 mg Q2H PRN IV For Anxiety 06/11/19 12:00 06/16/19 11:59 Metoprolol Tartrate (Lopressor) 25 mg EVERY 12 HOURS GT 06/09/19 21:00 07/04/19 20:59 06/13/19 08:32 Morphine Sulfate (Morphine Sulfate) 4 mg Q4H PRN IVP Severe Pain (Pain Scale 7-10) 06/11/19 12:00 06/16/19 11:59 Ondansetron HCl (Zofran) 4 mg Q6H PRN IVP Nausea & Vomiting 06/06/19 13:30 07/04/19 13:29 Pantoprazole (Protonix) 40 mg DAILY IV 06/07/19 09:00 07/05/19 08:59 06/13/19 08:33 Piperacillin Sod/ Tazobactam Sod 3.375 gm/Sodium Chloride 110 ml @ 27.5 mls/hr EVERY 8 HOURS IVPB 06/11/19 22:00 06/18/19 21:59 06/13/19 05:30 Polyethylene Glycol (Miralax) 17 gm DAILYPRN PRN GT Constipation 06/09/19 14:30 07/04/19 13:29 Trimethoprim/ Sulfamethoxazole (Bactrim-DS) 20 ml EVERY 12 HOURS GT 06/10/19 12:00 06/17/19 11:59 06/13/19 08:31 Stacy Dsouza OIL AGENT Jun 13, 2019 11:11
--- NOTE | 2019-06-13 11:35 | NUR ---
NURSE NOTES: dr st made aware that patients urine drainage after FC insertion was only less than 30ml, per dr st, keep FC in. will take note and carry out.
[2019-06-13 12:00] VITALS: BP 159/76
--- NOTE | 2019-06-13 13:24 | Consultation ---
Consult Note Consult Note asked to eval for rising Cr and Potassium known to me from her previous admission Past conditions: Renal failure (ARF), acute on chronic Anemia in chronic kidney disease (CKD) Diabetes mellitus G tube feedings Chronic respiratory failure this time admitted for sepsis and bacteremia - day 9 admission Assessment/Plan Oliguria / HyperKalemia / Rising Cr: indicative of acute renal failure due: - Sepsis - Medication: ? bactrim Vanco.... other conditions; Acute on chronic resp failure Sepsis , likely secondary to PNA [facility] PNA Acute metabolic encephalopathy Acute kidney injury on chronic renal disease Troponin leak Congestive heart failure , diastolic, acute on chronic Severe pulmonary hypertension Severe aortic stenosis Moderate mitral regurgitation Dysphagia, feeding by G-tube History of CVA with right hemiplegia DM HTN heart disease Anemia of chronic kidney disease GI bleeding s/p EGD 06/09 H pylori gastritis E/ lyte abnormalities: hyper K, hyper Na REMY Sugg: Stop Lasix Fraga urine studies Avoid nephrotoxics, consider discontinue Bactrim More Kayexelate monitor renal parameters and Vanco level per orders Wally Spivey MD Jun 13, 2019 13:24
[2019-06-13 16:00] VITALS: BP 148/59
[2019-06-13] MEDS ORDERED: Sodium Polystyrene Sulfonate 15gm Powder GT SCH (16:00)
[2019-06-13] MEDS ORDERED: NS 275ml ONE (16:23)
--- NOTE | 2019-06-13 19:18 | NUR ---
HAND-OFF: Report given to fnatasma schmidt.
--- NOTE | 2019-06-13 19:19 | NUR ---
NURSE NOTES: Received patient from Jenn BURNETT. Patient is awake and oriented x1, receiving oxygen via trach to vent: Shiley 8, AC 16, TV 500, FiO2 30%, PEEP 5. IV site is left upper chest 22g, patent and asymptomatic. Patient has a G-tube that is patent and receiving Glucerna 1.5 at 40cc/hr, patient tolerating well, no residuals. Fraga catheter is intact and draining. Bed is locked, placed in lowest position, side rails up x3, bed alarm on, will continue to monitor.
[2019-06-13 20:00] VITALS: BP 156/79
--- NOTE | 2019-06-13 21:51 | General Progress Note ---
Assessment/Plan Problem List: (1) CAD (coronary artery disease) ICD Codes: I25.10 - Atherosclerotic heart disease of [place] coronary artery without angina pectoris SNOMED: 46497485 (2) GI bleed ICD Codes: K92.2 - Gastrointestinal hemorrhage, unspecified SNOMED: 60479969 (3) Hypertensive heart disease ICD Codes: I11.9 - Hypertensive heart disease without heart failure SNOMED: 82388253 (4) Diabetes mellitus ICD Codes: E11.9 - Type 2 diabetes mellitus without complications SNOMED: 47663447 (5) Right hemiplegia ICD Codes: G81.91 - Hemiplegia, unspecified affecting right dominant side SNOMED: 242637727 (6) 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 ICD Codes: E11.22 - Type 2 diabetes mellitus with diabetic chronic kidney disease; N18.4 - Chronic kidney disease, stage 4 (severe) SNOMED: 35097698, 061964173, 621727702 (7) At high risk for aspiration ICD Codes: Z91.89 - Other specified personal risk factors, not elsewhere classified SNOMED: 361394617 (8) UTI (urinary tract infection) ICD Codes: N39.0 - Urinary tract infection, site not specified SNOMED: 30355518 (9) Pulmonary hypertension ICD Codes: I27.20 - Pulmonary hypertension, unspecified SNOMED: 44240171 (10) Anemia in chronic kidney disease (CKD) ICD Codes: N18.9 - Chronic kidney disease, unspecified; D63.1 - Anemia in chronic kidney disease SNOMED: 528667920 Qualifiers: Qualified Codes: N18.2 - Chronic kidney disease, stage 2 (mild); D63.1 - Anemia in chronic kidney disease (11) Chronic respiratory failure ICD Codes: J96.10 - Chronic respiratory failure, unspecified whether with hypoxia or hypercapnia SNOMED: 12533328 Status: stable Assessment/Plan: check h/h uti anemia vitals stable abx per id afebrile Subjective ROS Limited/Unobtainable: Yes Allergies: Coded Allergies: No Known Allergies (Unverified , 04/12/19) Objective Last 24 Hour Vital Signs Date Time Temp Pulse Resp B/P (MAP) Pulse Ox O2 Delivery O2 Flow Rate FiO2 06/13/19 20:35 70 165/82 06/13/19 20:00 30 06/13/19 20:00 Mechanical Ventilator 06/13/19 20:00 99.5 68 16 156/79 (104) 98 06/13/19 19:42 81 16 30 06/13/19 19:22 71 06/13/19 17:18 72 16 30 06/13/19 16:00 98.1 69 16 148/59 (88) 98 06/13/19 16:00 65 06/13/19 16:00 Mechanical Ventilator 06/13/19 16:00 30 06/13/19 14:57 88 20 30 06/13/19 12:41 74 16 30 06/13/19 12:00 63 06/13/19 12:00 30 06/13/19 12:00 97.9 71 16 159/76 (103) 98 06/13/19 12:00 Mechanical Ventilator 06/13/19 11:30 Mechanical Ventilator 06/13/19 10:55 77 16 30 06/13/19 08:51 67 16 30 06/13/19 08:32 62 151/79 06/13/19 08:00 30 06/13/19 08:00 30 06/13/19 08:00 Mechanical Ventilator 06/13/19 08:00 98.1 62 16 151/79 (103) 100 06/13/19 07:43 64 06/13/19 07:00 64 16 30 06/13/19 04:48 76 16 30 06/13/19 04:00 98.1 72 16 156/90 (112) 97 06/13/19 04:00 Mechanical Ventilator 06/13/19 04:00 30 06/13/19 03:33 69 06/13/19 02:55 79 16 30 06/13/19 00:55 168/94 06/13/19 00:33 81 19 30 06/13/19 00:00 Mechanical Ventilator 06/13/19 00:00 30 06/13/19 00:00 98.6 72 20 168/94 (118) 97 06/12/19 23:34 71 06/12/19 22:49 74 17 30 Intake and Output 06/12/19 06/13/19 18:59 06:59 Intake Total 575.0 ml 703.75 ml Output Total 700 ml 600 ml Balance -125.0 ml 103.75 ml Free Water 100 ml IV Total 495.0 ml 123.75 ml Tube Feeding 80 ml 480 ml Output Urine Total 700 ml 600 ml # Bowel Movements 4 2 Laboratory Tests 06/13/19 03:30: White Blood Count 8.3, Red Blood Count 2.88L, Hemoglobin 8.6L, Hematocrit 29.1L , Mean Corpuscular Volume 101H, Mean Corpuscular Hemoglobin 29.8, Mean Corpuscular Hemoglobin Concent 29.4L, Red Cell Distribution Width 23.2H, Platelet Count 163, Mean Platelet Volume 7.7, Neutrophils (%) (Auto) 60.6, Lymphocytes (%) (Auto) 28.0, Monocytes (%) (Auto) 5.4, Eosinophils (%) (Auto) 4.8H, Basophils (%) (Auto) 1.1, Sodium Level 151H, Potassium Level 5.9H, Chloride Level 116H, Carbon Dioxide Level 28, Anion Gap 7, Blood Urea Nitrogen 46H, Creatinine 1.5H, Estimat Glomerular Filtration Rate , Glucose Level 225H, Calcium Level 9.1 06/13/19 14:21: Urine Random Sodium 156H Height (Feet): 5 Height (Inches): 5.00 Weight (Pounds): 204 Cardiovascular: normal rate Respiratory/Chest: lungs clear Abdomen: soft Glendy Taylor MD Jun 13, 2019 21:51
[2019-06-14] VITALS: BP 155/76
[2019-06-14 04:00] VITALS: BP 174/93
[2019-06-14 04:53] LABS: BASOPHILS % (AUTO) 0.9 % (0.0-2.0); EOSINOPHILS % (AUTO) 4.7 % (0.0-3.0); HEMATOCRIT 29.9 % (37.0-47.0); HEMOGLOBIN 8.8 G/DL (12.0-16.0); LYMPHOCYTES % (AUTO) 26.1 % (20.0-45.0); MEAN CORPUSCULAR VOLUME 101 FL (80-99); NEUTROPHILS % (AUTO) 63.3 % (45.0-75.0); PLATELET COUNT 165 K/UL (150-450); RED BLOOD COUNT 2.96 M/UL (4.20-5.40)
[2019-06-14 05:06] LABS: AMMONIA 50 umol/L (11-32)
[2019-06-14 05:20] LABS: ALANINE AMINOTRANSFERASE 6 U/L (12-78); ALBUMIN 1.8 G/DL (3.4-5.0); ALBUMIN/GLOBULIN RATIO 0.3 (1.0-2.7); ALKALINE PHOSPHATASE 136 U/L (46-116); ANION GAP 10 mmol/L (5-15); ASPARTATE AMINO TRANSFERASE 16 U/L (15-37); BILIRUBIN,TOTAL 0.5 MG/DL (0.2-1.0); BLOOD UREA NITROGEN 45 mg/dL (7-18); CALCIUM 8.9 MG/DL (8.5-10.1); CARBON DIOXIDE 28 MMOL/L (21-32); CHLORIDE 112 MMOL/L (98-107); CREATININE 1.5 MG/DL (0.55-1.30); PHOSPHORUS 4.2 MG/DL (2.5-4.9); POTASSIUM 4.9 MMOL/L (3.5-5.1); SODIUM 149 MMOL/L (136-145)
--- NOTE | 2019-06-14 07:12 | NUR ---
HAND-OFF: Report given to Saritha BURNETT. Patient in stable condition.
--- NOTE | 2019-06-14 07:14 | NUR ---
NURSE NOTES: Received report from HORTENCIA Matta. Observed patient in bed, awake, nonverbal. On trach-vent with previous settings, no acute respiratory distress noted at this time. Peripheral IV 22g on left chest intact and patent. GT intact and patent with infusing fluids at prescribed rate, tolerating well with HOB elevated. Fraga catheter intact and draining well. Safety precautions in place, bed locked, alarmed and in lowest position, side rails up x3, and call light left within reach. Will continue with plan of care.
--- NOTE | 2019-06-14 07:23 | NUR ---
RESPIRATORY NOTES: Received Patient on settings ACVC 16, VT 500, FIO2 30%, PEEP +5. Patient is trached with a Shiley 8, secured with trache ties. Patient is awake but confused. Suctioned minimal white secretions through trache Q2 and PRN. Bilateral rhonchi is heard throughout both lung cruz. Vent plugged into red outlet. Alarms are on and audible. Will continue to monitor throughout the day.
[2019-06-14 08:00] VITALS: BP 170/96
--- NOTE | 2019-06-14 08:11 | NUR ---
CHEST X-RAY COMPLETED AT 0741 HRS BY Coby MADDOX
[2019-06-14] MEDS: Metoprolol 25mg tab GT SCH ×2 (08:44→21:13)
[2019-06-14] MEDS: Pantoprazole Inj IV SCH ×2 (08:44→21:12)
[2019-06-14] MEDS: Bactrim Susp 20ml GT SCH ×2 (08:45→21:13)
[2019-06-14] MEDS: Piperacillin/Tazobactam 3.375 GM in NS 110 ML IVPB SCH ×2 (08:45→21:12)
--- NOTE | 2019-06-14 08:46 | Nephrology Progress Note ---
Assessment/Plan Problem List: (1) Renal failure (ARF), acute on chronic (2) Hypertensive heart disease Assessment: HTN OOC (3) Anemia in chronic kidney disease (CKD) (4) History of CVA (cerebrovascular accident) (5) G tube feedings Assessment admitted for sepsis and bacteremia - day 9 admission Assessment/Plan Oliguria / HyperKalemia / Rising Cr: indicative of acute renal failure due: - Sepsis - Medication: ? bactrim Vanco.... other conditions; Acute on chronic resp failure Renal failure (ARF), acute on chronic Anemia in chronic kidney disease (CKD) Diabetes mellitus G tube feedings Chronic respiratory failure Plan Aim to adjust BP meds for better RODNEY control Continue fluid challenge as needed monitor I&O Avoid Nephrotoxics Monitor renal parameters per orders Subjective ROS Limited/Unobtainable: Yes Objective Objective Last 24 Hour Vital Signs Date Time Temp Pulse Resp B/P (MAP) Pulse Ox O2 Delivery O2 Flow Rate FiO2 06/14/19 08:00 Mechanical Ventilator 06/14/19 08:00 30 06/14/19 07:30 165/83 06/14/19 06:58 80 16 30 06/14/19 05:25 174/93 06/14/19 05:10 84 16 30 06/14/19 04:03 69 06/14/19 04:00 Mechanical Ventilator 06/14/19 04:00 98.1 81 16 174/93 (120) 100 06/14/19 04:00 30 06/14/19 02:51 79 18 30 06/14/19 01:30 84 16 30 06/14/19 00:00 98.4 78 16 155/76 (102) 96 06/14/19 00:00 Mechanical Ventilator 06/14/19 00:00 30 06/13/19 23:40 68 06/13/19 23:22 79 18 30 06/13/19 21:01 79 17 30 06/13/19 20:35 70 165/82 06/13/19 20:00 30 06/13/19 20:00 Mechanical Ventilator 06/13/19 20:00 99.5 68 16 156/79 (104) 98 06/13/19 19:42 81 16 30 06/13/19 19:22 71 06/13/19 17:18 72 16 30 06/13/19 16:00 98.1 69 16 148/59 (88) 98 8/18/19 16:00 65 06/13/19 16:00 Mechanical Ventilator 06/13/19 16:00 30 06/13/19 14:57 88 20 30 06/13/19 12:41 74 16 30 06/13/19 12:00 63 06/13/19 12:00 30 06/13/19 12:00 97.9 71 16 159/76 (103) 98 06/13/19 12:00 Mechanical Ventilator 06/13/19 11:30 Mechanical Ventilator 06/13/19 10:55 77 16 30 06/13/19 08:51 67 16 30 Intake and Output 06/13/19 06/14/19 19:00 07:00 Intake Total 1762.5 ml 840.0 ml Output Total 850 ml 600 ml Balance 912.5 ml 240.0 ml Free Water 200 ml 250 ml IV Total 1082.5 ml 110.0 ml Tube Feeding 480 ml 480 ml Output Urine Total 850 ml 600 ml # Bowel Movements 3 2 Current Medications Medications (Trade) Dose Ordered Sig/Kenisha Route PRN Reason Start Time Stop Time Status Last Admin Dose Admin Acetaminophen (Tylenol) 650 mg Q4H PRN GT FEVER (temp>100.5 F) 06/09/19 14:30 07/04/19 13:29 Albuterol/ Ipratropium (Albuterol/ Ipratropium) 3 ml Q4H PRN HHN Shortness of Breath 06/11/19 12:00 06/16/19 11:59 Clonidine HCl (Catapres Tab) 0.1 mg EVERY 8 HOURS GT 06/14/19 07:15 07/14/19 07:14 06/14/19 07:30 Clonidine HCl (Catapres Tab) 0.1 mg Q6H PRN GT For High Blood Pressure 06/09/19 14:30 07/09/19 07:59 06/14/19 05:25 Clopidogrel Bisulfate (Plavix) 75 mg DAILY GT 06/12/19 09:00 07/12/19 08:59 06/13/19 08:32 Dextrose (Dextrose 50%) 25 ml Q30M PRN IV Hypoglycemia 06/06/19 13:30 07/04/19 15:21 Dextrose (Dextrose 50%) 50 ml Q30M PRN IV hypoglycemia 06/06/19 13:30 07/04/19 15:29 Heparin Sodium (Porcine) (Heparin 5000 units/ml) 5,000 units EVERY 12 HOURS SUBQ 06/06/19 21:00 07/04/19 20:59 06/13/19 20:31 Lorazepam (Ativan 2mg/ml 1ml) 2 mg Q2H PRN IV For Anxiety 06/11/19 12:00 06/16/19 11:59 Metoprolol Tartrate (Lopressor) 25 mg EVERY 12 HOURS GT 06/09/19 21:00 07/04/19 20:59 06/13/19 20:35 Morphine Sulfate (Morphine Sulfate) 4 mg Q4H PRN IVP Severe Pain (Pain Scale 7-10) 06/11/19 12:00 06/16/19 11:59 Ondansetron HCl (Zofran) 4 mg Q6H PRN IVP Nausea & Vomiting 06/06/19 13:30 07/04/19 13:29 Pantoprazole (Protonix) 40 mg Q12HR IV 06/13/19 21:00 07/05/19 08:59 06/13/19 20:33 Piperacillin Sod/ Tazobactam Sod 3.375 gm/Sodium Chloride 110 ml @ 27.5 mls/hr EVERY 12 HOURS IVPB 06/13/19 21:00 06/18/19 21:59 06/13/19 20:32 Polyethylene Glycol (Miralax) 17 gm DAILYPRN PRN GT Constipation 06/09/19 14:30 07/04/19 13:29 Trimethoprim/ Sulfamethoxazole (Bactrim-DS) 20 ml EVERY 12 HOURS GT 06/10/19 12:00 06/17/19 11:59 06/13/19 20:32 Laboratory Tests 06/13/19 14:21: Urine Random Sodium 156H 06/14/19 03:15: White Blood Count 8.0, Red Blood Count 2.96L, Hemoglobin 8.8L, Hematocrit 29.9L , Mean Corpuscular Volume 101H, Mean Corpuscular Hemoglobin 29.7, Mean Corpuscular Hemoglobin Concent 29.4L, Red Cell Distribution Width 23.0H, Platelet Count 165, Mean Platelet Volume 7.5, Neutrophils (%) (Auto) 63.3, Lymphocytes (%) (Auto) 26.1, Monocytes (%) (Auto) 5.0, Eosinophils (%) (Auto) 4.7H, Basophils (%) (Auto) 0.9, Sodium Level 149H, Potassium Level 4.9, Chloride Level 112H, Carbon Dioxide Level 28, Anion Gap 10, Blood Urea Nitrogen 45H, Creatinine 1.5H, Estimat Glomerular Filtration Rate , Glucose Level 247H, Uric Acid 5.1, Calcium Level 8.9, Phosphorus Level 4.2, Magnesium Level 1.9, Total Bilirubin 0.5, Aspartate Amino Transf (AST/SGOT) 16, Alanine Aminotransferase (ALT/SGPT) 6L, Alkaline Phosphatase 136H, Ammonia 50H, C- Reactive Protein, Quantitative 4.5H, Pro-B-Type Natriuretic Peptide > 32400G, Total Protein 7.3, Albumin 1.8L, Globulin 5.5, Albumin/Globulin Ratio 0.3L, Random Vancomycin Level 7.9 06/14/19 05:30: Urine Eosinophils [Pending] Height (Feet): 5 Height (Inches): 5.00 Weight (Pounds): 200 General Appearance: no apparent distress, lethargic EENT: other - trach Cardiovascular: normal rate Respiratory/Chest: decreased breath sounds Abdomen: distended Wally Spivey MD Jun 14, 2019 08:46
[2019-06-14] MEDS: Heparin 5000 units/ml inj SUBQ SCH ×2 (08:56→21:14)
--- NOTE | 2019-06-14 10:09 | Pulmonolgy Critical Care Note ---
Critical Care - Asmt/Plan Problems: (1) Acute and chronic respiratory failure (2) Nosocomial pneumonia (3) Acute metabolic encephalopathy (4) Anemia in chronic kidney disease (CKD) (5) Renal failure (ARF), acute on chronic (6) NSTEMI (non-ST elevated myocardial infarction) (7) G tube feedings (8) History of CVA (cerebrovascular accident) (9) CAD (coronary artery disease) (10) Right hemiplegia (11) Diabetes mellitus (12) Hypertensive heart disease Respiratory: monitor respiratory rate, adjust FIO2 Cardiac: continue to monitor HR/BP Renal: F/U I&O, keep IV fluid, check electrolytes Infectious Disease: check cultures, continue antibiotics, add antibiotics Gastrointestinal: continue feedings/current rate Endocrine: monitor blood sugar, continue sliding scale insulin Hematologic: monitor H/H, transfuse if hgb<8.5 Neurologic: PRN Ativan, keep patient comfortable Prophylaxis: Protonix Notes Reviewed: monomer purification operator, renal Discussed with: nurses, consultants, pillowcase folderpmo project manager - Objective Last 24 Hour Vital Signs Date Time Temp Pulse Resp B/P (MAP) Pulse Ox O2 Delivery O2 Flow Rate FiO2 06/14/19 09:01 88 16 30 06/14/19 08:44 70 170/96 06/14/19 08:00 Mechanical Ventilator 06/14/19 08:00 98.0 70 16 170/96 (120) 100 06/14/19 08:00 65 06/14/19 08:00 30 06/14/19 07:30 165/83 06/14/19 06:58 80 16 30 06/14/19 05:25 174/93 06/14/19 05:10 84 16 30 06/14/19 04:03 69 06/14/19 04:00 Mechanical Ventilator 06/14/19 04:00 98.1 81 16 174/93 (120) 100 06/14/19 04:00 30 06/14/19 02:51 79 18 30 06/14/19 01:30 84 16 30 06/14/19 00:00 98.4 78 16 155/76 (102) 96 06/14/19 00:00 Mechanical Ventilator 06/14/19 00:00 30 06/13/19 23:40 68 06/13/19 23:22 79 18 30 06/13/19 21:01 79 17 30 06/13/19 20:35 70 165/82 06/13/19 20:00 30 06/13/19 20:00 Mechanical Ventilator 06/13/19 20:00 99.5 68 16 156/79 (104) 98 06/13/19 19:42 81 16 30 06/13/19 19:22 71 06/13/19 17:18 72 16 30 06/13/19 16:00 98.1 69 16 148/59 (88) 98 06/13/19 16:00 65 06/13/19 16:00 Mechanical Ventilator 06/13/19 16:00 30 06/13/19 14:57 88 20 30 06/13/19 12:41 74 16 30 06/13/19 12:00 63 06/13/19 12:00 30 06/13/19 12:00 97.9 71 16 159/76 (103) 98 06/13/19 12:00 Mechanical Ventilator 06/13/19 11:30 Mechanical Ventilator 06/13/19 10:55 77 16 30 Status: awake Condition: critical Neck: full ROM Heart: HR/BP stable, regular Abdomen: non-tender, feeding tube Extremities: edema Decubiti: location Critical Care - Subjective ROS Limited/Unobtainable: Yes Condition: critical EKG Rhythm: Sinus Rhythm FI02: 30 Vent Support Breath Rate: 16 Vent Support Mode: AC Vent Tidal Volume: 500 Sputum Amount: Moderate PEEP: 5.0 PIP: 40 Tube Feeding Amount: 40 I&O: Intake and Output 06/13/19 06/14/19 19:00 07:00 Intake Total 1762.5 ml 840.0 ml Output Total 850 ml 600 ml Balance 912.5 ml 240.0 ml Free Water 200 ml 250 ml IV Total 1082.5 ml 110.0 ml Tube Feeding 480 ml 480 ml Output Urine Total 850 ml 600 ml # Bowel Movements 3 2 Labs: Laboratory Tests Test 06/13/19 14:21 06/14/19 03:15 06/14/19 05:30 Urine Random Sodium 156 mmol/L (20-110) H White Blood Count 8.0 K/UL (4.8-10.8) Red Blood Count 2.96 M/UL (4.20-5.40) L Hemoglobin 8.8 G/DL (12.0-16.0) L Hematocrit 29.9 % (37.0-47.0) L Mean Corpuscular Volume 101 FL (80-99) H Mean Corpuscular Hemoglobin 29.7 PG (27.0-31.0) Mean Corpuscular Hemoglobin Concent 29.4 G/DL (32.0-36.0) L Red Cell Distribution Width 23.0 % (11.6-14.8) H Platelet Count 165 K/UL (150-450) Mean Platelet Volume 7.5 FL (6.5-10.1) Neutrophils (%) (Auto) 63.3 % (45.0-75.0) Lymphocytes (%) (Auto) 26.1 % (20.0-45.0) Monocytes (%) (Auto) 5.0 % (1.0-10.0) Eosinophils (%) (Auto) 4.7 % (0.0-3.0) H Basophils (%) (Auto) 0.9 % (0.0-2.0) Sodium Level 149 MMOL/L (136-145) H Potassium Level 4.9 MMOL/L (3.5-5.1) Chloride Level 112 MMOL/L (98-107) H Carbon Dioxide Level 28 MMOL/L (21-32) Anion Gap 10 mmol/L (5-15) Blood Urea Nitrogen 45 mg/dL (7-18) H Creatinine 1.5 MG/DL (0.55-1.30) H Estimat Glomerular Filtration Rate mL/min (>60) Glucose Level 247 MG/DL (74-106) H Uric Acid 5.1 MG/DL (2.6-7.2) Calcium Level 8.9 MG/DL (8.5-10.1) Phosphorus Level 4.2 MG/DL (2.5-4.9) Magnesium Level 1.9 MG/DL (1.8-2.4) Total Bilirubin 0.5 MG/DL (0.2-1.0) Aspartate Amino Transf (AST/SGOT) 16 U/L (15-37) Alanine Aminotransferase (ALT/SGPT) 6 U/L (12-78) L Alkaline Phosphatase 136 U/L (46-116) H Ammonia 50 umol/L (11-32) H C-Reactive Protein, Quantitative 4.5 mg/dL (0.00-0.90) H Pro-B-Type Natriuretic Peptide > 27083 pg/mL (0-125) H Total Protein 7.3 G/DL (6.4-8.2) Albumin 1.8 G/DL (3.4-5.0) L Globulin 5.5 g/dL Albumin/Globulin Ratio 0.3 (1.0-2.7) L Random Vancomycin Level 7.9 ug/mL Urine Eosinophils None seen (NONE SEEN) Tony Springer MD Jun 14, 2019 10:09
--- NOTE | 2019-06-14 10:40 | GI Progress Note ---
Assessment/Plan Problems: (1) GI bleed ICD Codes: K92.2 - Gastrointestinal hemorrhage, unspecified SNOMED: 83348050 (2) Black tarry stools ICD Codes: K92.1 - Melena SNOMED: 884542993 (3) Severe sepsis ICD Codes: A41.9 - Sepsis, unspecified organism; R65.20 - Severe sepsis without septic shock SNOMED: 36066288 (4) G tube feedings ICD Codes: Z93.1 - Gastrostomy status SNOMED: 114799811, 205375947, 624979564 (5) Anemia in chronic kidney disease (CKD) ICD Codes: N18.9 - Chronic kidney disease, unspecified; D63.1 - Anemia in chronic kidney disease SNOMED: 571489672 Qualifiers: Qualified Codes: N18.2 - Chronic kidney disease, stage 2 (mild); D63.1 - Anemia in chronic kidney disease Status: unchanged Status Narrative Discussed with Dr. Gentile. Assessment/Plan SUMMARY OF FINDINGS: Gastritis, otherwise normal upper endoscopic examination. G-tube in place without any obvious bleeding on the G-tube site. RECOMMENDATIONS: 1. Follow pathology. 2. Resume diet. 3. Monitor labs. 4. Transfuse as needed. 5. PPI daily. The patient was seen and examined at bedside and all new and available data was reviewed in the patients chart. I agree with the above findings, impression and plan. (Patient seen earlier today. Signature stamp does not reflect patient encounter time.). - Darron Gentile MD Subjective Subjective limited Objective Last 24 Hour Vital Signs Date Time Temp Pulse Resp B/P (MAP) Pulse Ox O2 Delivery O2 Flow Rate FiO2 06/14/19 09:01 88 16 30 06/14/19 08:44 70 170/96 06/14/19 08:00 Mechanical Ventilator 06/14/19 08:00 98.0 70 16 170/96 (120) 100 06/14/19 08:00 65 06/14/19 08:00 30 06/14/19 07:30 165/83 06/14/19 06:58 80 16 30 06/14/19 05:25 174/93 06/14/19 05:10 84 16 30 06/14/19 04:03 69 06/14/19 04:00 Mechanical Ventilator 06/14/19 04:00 98.1 81 16 174/93 (120) 100 06/14/19 04:00 30 06/14/19 02:51 79 18 30 06/14/19 01:30 84 16 30 06/14/19 00:00 98.4 78 16 155/76 (102) 96 06/14/19 00:00 Mechanical Ventilator 06/14/19 00:00 30 06/13/19 23:40 68 06/13/19 23:22 79 18 30 06/13/19 21:01 79 17 30 06/13/19 20:35 70 165/82 06/13/19 20:00 30 06/13/19 20:00 Mechanical Ventilator 06/13/19 20:00 99.5 68 16 156/79 (104) 98 06/13/19 19:42 81 16 30 06/13/19 19:22 71 06/13/19 17:18 72 16 30 06/13/19 16:00 98.1 69 16 148/59 (88) 98 06/13/19 16:00 65 06/13/19 16:00 Mechanical Ventilator 06/13/19 16:00 30 06/13/19 14:57 88 20 30 06/13/19 12:41 74 16 30 06/13/19 12:00 63 06/13/19 12:00 30 06/13/19 12:00 97.9 71 16 159/76 (103) 98 06/13/19 12:00 Mechanical Ventilator 06/13/19 11:30 Mechanical Ventilator 06/13/19 10:55 77 16 30 Intake and Output 06/13/19 06/14/19 19:00 07:00 Intake Total 1762.5 ml 840.0 ml Output Total 850 ml 600 ml Balance 912.5 ml 240.0 ml Free Water 200 ml 250 ml IV Total 1082.5 ml 110.0 ml Tube Feeding 480 ml 480 ml Output Urine Total 850 ml 600 ml # Bowel Movements 3 2 Laboratory Tests Test 06/13/19 14:21 06/14/19 03:15 06/14/19 05:30 Urine Random Sodium 156 mmol/L (20-110) H White Blood Count 8.0 K/UL (4.8-10.8) Red Blood Count 2.96 M/UL (4.20-5.40) L Hemoglobin 8.8 G/DL (12.0-16.0) L Hematocrit 29.9 % (37.0-47.0) L Mean Corpuscular Volume 101 FL (80-99) H Mean Corpuscular Hemoglobin 29.7 PG (27.0-31.0) Mean Corpuscular Hemoglobin Concent 29.4 G/DL (32.0-36.0) L Red Cell Distribution Width 23.0 % (11.6-14.8) H Platelet Count 165 K/UL (150-450) Mean Platelet Volume 7.5 FL (6.5-10.1) Neutrophils (%) (Auto) 63.3 % (45.0-75.0) Lymphocytes (%) (Auto) 26.1 % (20.0-45.0) Monocytes (%) (Auto) 5.0 % (1.0-10.0) Eosinophils (%) (Auto) 4.7 % (0.0-3.0) H Basophils (%) (Auto) 0.9 % (0.0-2.0) Sodium Level 149 MMOL/L (136-145) H Potassium Level 4.9 MMOL/L (3.5-5.1) Chloride Level 112 MMOL/L (98-107) H Carbon Dioxide Level 28 MMOL/L (21-32) Anion Gap 10 mmol/L (5-15) Blood Urea Nitrogen 45 mg/dL (7-18) H Creatinine 1.5 MG/DL (0.55-1.30) H Estimat Glomerular Filtration Rate mL/min (>60) Glucose Level 247 MG/DL (74-106) H Uric Acid 5.1 MG/DL (2.6-7.2) Calcium Level 8.9 MG/DL (8.5-10.1) Phosphorus Level 4.2 MG/DL (2.5-4.9) Magnesium Level 1.9 MG/DL (1.8-2.4) Total Bilirubin 0.5 MG/DL (0.2-1.0) Aspartate Amino Transf (AST/SGOT) 16 U/L (15-37) Alanine Aminotransferase (ALT/SGPT) 6 U/L (12-78) L Alkaline Phosphatase 136 U/L (46-116) H Ammonia 50 umol/L (11-32) H C-Reactive Protein, Quantitative 4.5 mg/dL (0.00-0.90) H Pro-B-Type Natriuretic Peptide > 67673 pg/mL (0-125) H Total Protein 7.3 G/DL (6.4-8.2) Albumin 1.8 G/DL (3.4-5.0) L Globulin 5.5 g/dL Albumin/Globulin Ratio 0.3 (1.0-2.7) L Random Vancomycin Level 7.9 ug/mL Urine Eosinophils None seen (NONE SEEN) Height (Feet): 5 Height (Inches): 5.00 Weight (Pounds): 200 General Appearance: WD/WN, no apparent distress, alert Cardiovascular: normal rate Respiratory/Chest: normal breath sounds, no respiratory distress Abdominal Exam: normal bowel sounds, non tender, soft, GT site Extremities: non-tender Aron Torres NP Jun 14, 2019 10:40
--- NOTE | 2019-06-14 11:51 | Diagnostic Imaging Report ---
Indication: Shortness of breath Technique: One view of the chest Comparison: June 07, 2019 Findings: Allowing for technical differences, bilateral interstitial and airspace disease appears stable or slightly worse. The pleural spaces are grossly clear. The heart is borderline enlarged. Tracheostomy is again demonstrated Impression: Bilateral interstitial and airspace infiltrates versus edema, stable or slightly worse since prior exam of 7 days earlier
--- NOTE | 2019-06-14 11:57 | NUR ---
RD ASSESSMENT & RECOMMENDATIONS SEE CARE ACTIVITY FOR COMPLETE ASSESSMENT DAILY ESTIMATED NEEDS: Needs based on Critical care, CHF, DM/ 56.8kg abw 22-28 kcals/kg 1622-0712 total kcals 1.2-2 g protein/kg 68-114 g total protein 20-22 mL/kg 0247-0520 total fluid mLs NUTRITION DIAGNOSIS: * Swallowing difficulty R/T dysphagia, h/o CVA, respiratory status as evidenced by pt trach/vent dep, PEG dep. * Altered nutrition related lab values R/T CHF, diabetes as evidenced by BNP >56052, A1C of 6.6 on 05/18, elev BGs (200's). CURRENT TF: Glucerna 1.5 @40 ENTERAL NUTRITION RECOMMENDATIONS: Glucerna 1.5 @ 40ml/hr x 24 hrs to provide 960ml, 1440kcal, 79g prot, 729ml free water * Kori Glucerna 1.5 @goal for DM dx, for less free fluids (edematous, CHF dx w/ BNP >94368) * HOB over 30 degrees/ water flush per MD ----- * Trend lytes/ renal labs; need for renal formula. ADDITIONAL RECOMMENDATIONS: * Calibrated bedscale wt for accurate CBW * Monitor lytes daily, replete as needed -> need for renal TF? (K 6.3-> now 4.9) * NISS for BG control- DM dx, BGs elev .
[2019-06-14 12:00] VITALS: BP 159/91
--- NOTE | 2019-06-14 12:37 | Hematology/Onc Progress Note ---
Assessment/Plan Assessment/Plan Assessment/Plan: # Anemia of chronic disease likely multifactorial process, in the past has had anemia as well --> w/u reveals ferritin is >1500, esr and crp are elevated --> on abx at this time, ID recs as needed --> smear has been reviewed, no schistocytes noted --> monitor for bleed, transfuse with 1 unit 06/05 --> hgb goal >7 and transfuse as needed --> cea is 4.2 is wnl --> hgb 8.3-->8.2-->8.5->8.7->8.9->8.8 # Leukocytosis with Pulmonary infiltrates vs pulmonary edema hx of trach, had sepsis --> on abx per id --> CXR: Excessive bilateral diffuse infiltrates versus edema, increased from prior study of 05/05/2019 --> on annmarie and vanc iv abx-> zosyn/bactrim --> imaging has been reviewed # REMY on CKD --> per renal recs # Recent PNA --> s/p abx with Rx # HyperGlycemia / DM 24 H urine protein check 2.4 gram --> dm management # Right Esvin due to CVA --> ok to resume plafix # HTN is on metp --> sbo goal <150 # chronic resp failure s/p trach/vent dependant --> trach on 05/03/19 # Dysphagia s/p PEG # Nonverbal status # SNF resident # DVT ppx with heparin sq Time of note does not necessarily correspond to when patient was seen. Greatly appreciate consultation. Subjective Allergies: Coded Allergies: No Known Allergies (Unverified , 04/12/19) Subjective 06/07: on trach, vent, remains altered, is off pressors, h/h reviewed 06/08: to go for egd tomorrow, labs reviewed, no f/c 06/09: egd done, results pending, no f/c, on gtube feeds 06/10: remains on gtube feeds, is alert and oriented x1, pending placement 06/11: no events noted no bleeding or chills, hgb stable 06/14: remains on vent, on abx, hgb stable Objective Objective Current Medications Medications (Trade) Dose Ordered Sig/Kenisha Route PRN Reason Start Time Stop Time Status Last Admin Dose Admin Acetaminophen (Tylenol) 650 mg Q4H PRN GT FEVER (temp>100.5 F) 06/09/19 14:30 07/04/19 13:29 Albuterol/ Ipratropium (Albuterol/ Ipratropium) 3 ml Q4H PRN HHN Shortness of Breath 06/11/19 12:00 06/16/19 11:59 Clonidine HCl (Catapres Tab) 0.1 mg EVERY 8 HOURS GT 06/14/19 07:15 07/14/19 07:14 06/14/19 07:30 Clonidine HCl (Catapres Tab) 0.1 mg Q6H PRN GT For High Blood Pressure 06/09/19 14:30 07/09/19 07:59 06/14/19 05:25 Clopidogrel Bisulfate (Plavix) 75 mg DAILY GT 06/12/19 09:00 07/12/19 08:59 06/14/19 08:44 Dextrose (Dextrose 50%) 25 ml Q30M PRN IV Hypoglycemia 06/06/19 13:30 07/04/19 15:21 Dextrose (Dextrose 50%) 50 ml Q30M PRN IV hypoglycemia 06/06/19 13:30 07/04/19 15:29 Heparin Sodium (Porcine) (Heparin 5000 units/ml) 5,000 units EVERY 12 HOURS SUBQ 06/06/19 21:00 07/04/19 20:59 06/14/19 08:56 Lorazepam (Ativan 2mg/ml 1ml) 2 mg Q2H PRN IV For Anxiety 06/11/19 12:00 06/16/19 11:59 Metoprolol Tartrate (Lopressor) 25 mg EVERY 12 HOURS GT 06/09/19 21:00 07/04/19 20:59 06/14/19 08:44 Morphine Sulfate (Morphine Sulfate) 4 mg Q4H PRN IVP Severe Pain (Pain Scale 7-10) 06/11/19 12:00 06/16/19 11:59 Ondansetron HCl (Zofran) 4 mg Q6H PRN IVP Nausea & Vomiting 06/06/19 13:30 07/04/19 13:29 Pantoprazole (Protonix) 40 mg Q12HR IV 06/13/19 21:00 07/05/19 08:59 06/14/19 08:44 Piperacillin Sod/ Tazobactam Sod 3.375 gm/Sodium Chloride 110 ml @ 27.5 mls/hr EVERY 12 HOURS IVPB 06/13/19 21:00 06/18/19 21:59 06/14/19 08:45 Polyethylene Glycol (Miralax) 17 gm DAILYPRN PRN GT Constipation 06/09/19 14:30 07/04/19 13:29 Trimethoprim/ Sulfamethoxazole (Bactrim-DS) 20 ml EVERY 12 HOURS GT 06/10/19 12:00 06/17/19 11:59 06/14/19 08:45 Last 24 Hour Vital Signs Date Time Temp Pulse Resp B/P (MAP) Pulse Ox O2 Delivery O2 Flow Rate FiO2 06/14/19 12:00 30 06/14/19 12:00 97.9 76 16 159/91 (113) 99 06/14/19 12:00 Mechanical Ventilator 06/14/19 11:03 79 16 30 06/14/19 09:01 88 16 30 06/14/19 08:44 70 170/96 06/14/19 08:00 Mechanical Ventilator 06/14/19 08:00 98.0 70 16 170/96 (120) 100 06/14/19 08:00 65 06/14/19 08:00 30 06/14/19 07:30 165/83 06/14/19 06:58 80 16 30 06/14/19 05:25 174/93 06/14/19 05:10 84 16 30 06/14/19 04:03 69 06/14/19 04:00 Mechanical Ventilator 06/14/19 04:00 98.1 81 16 174/93 (120) 100 06/14/19 04:00 30 06/14/19 02:51 79 18 30 06/14/19 01:30 84 16 30 06/14/19 00:00 98.4 78 16 155/76 (102) 96 06/14/19 00:00 Mechanical Ventilator 06/14/19 00:00 30 06/13/19 23:40 68 06/13/19 23:22 79 18 30 06/13/19 21:01 79 17 30 06/13/19 20:35 70 165/82 06/13/19 20:00 30 8/18/19 20:00 Mechanical Ventilator 06/13/19 20:00 99.5 68 16 156/79 (104) 98 06/13/19 19:42 81 16 30 06/13/19 19:22 71 06/13/19 17:18 72 16 30 06/13/19 16:00 98.1 69 16 148/59 (88) 98 06/13/19 16:00 65 06/13/19 16:00 Mechanical Ventilator 06/13/19 16:00 30 06/13/19 14:57 88 20 30 06/13/19 12:41 74 16 30 06/13/19 12:00 63 06/13/19 12:00 30 06/13/19 12:00 97.9 71 16 159/76 (103) 98 06/13/19 12:00 Mechanical Ventilator 06/13/19 11:30 Mechanical Ventilator 06/13/19 10:55 77 16 30 06/13/19 08:51 67 16 30 06/13/19 08:32 62 151/79 06/13/19 08:00 30 06/13/19 08:00 30 06/13/19 08:00 Mechanical Ventilator 06/13/19 08:00 98.1 62 16 151/79 (103) 100 06/13/19 07:43 64 06/13/19 07:00 64 16 30 06/13/19 04:48 76 16 30 06/13/19 04:00 98.1 72 16 156/90 (112) 97 06/13/19 04:00 Mechanical Ventilator 06/13/19 04:00 30 06/13/19 03:33 69 06/13/19 02:55 79 16 30 06/13/19 00:55 168/94 18 00:33 81 19 30 06/13/19 00:00 Mechanical Ventilator 06/13/19 00:00 30 06/13/19 00:00 98.6 72 20 168/94 (118) 97 06/12/19 23:34 71 06/12/19 22:49 74 17 30 06/12/19 21:07 77 16 30 06/12/19 21:05 81 150/92 06/12/19 20:00 Mechanical Ventilator 06/12/19 20:00 30 06/12/19 20:00 97.5 81 17 150/92 (111) 97 06/12/19 19:44 75 8/17/19 18:35 76 17 30 06/12/19 16:49 79 16 30 06/12/19 16:00 Mechanical Ventilator 06/12/19 16:00 70 06/12/19 16:00 99.0 66 18 164/87 (112) 96 06/12/19 16:00 30 06/12/19 14:55 73 17 30 06/12/19 13:16 72 16 30 Intake and Output 06/13/19 06/14/19 19:00 07:00 Intake Total 1762.5 ml 840.0 ml Output Total 850 ml 600 ml Balance 912.5 ml 240.0 ml Free Water 200 ml 250 ml IV Total 1082.5 ml 110.0 ml Tube Feeding 480 ml 480 ml Output Urine Total 850 ml 600 ml # Bowel Movements 3 2 Labs Test 06/12/19 03:33 06/13/19 03:30 06/13/19 14:21 06/14/19 03:15 White Blood Count 8.9 K/UL (4.8-10.8) 8.3 K/UL (4.8-10.8) 8.0 K/UL (4.8-10.8) Red Blood Count 3.11 M/UL (4.20-5.40) 2.88 M/UL (4.20-5.40) 2.96 M/UL (4.20-5.40) Hemoglobin 9.3 G/DL (12.0-16.0) 8.6 G/DL (12.0-16.0) 8.8 G/DL (12.0-16.0) Hematocrit 31.6 % (37.0-47.0) 29.1 % (37.0-47.0) 29.9 % (37.0-47.0) Mean Corpuscular Volume 101 FL (80-99) 101 FL (80-99) 101 FL (80-99) Mean Corpuscular Hemoglobin 29.9 PG (27.0-31.0) 29.8 PG (27.0-31.0) 29.7 PG (27.0-31.0) Mean Corpuscular Hemoglobin Concent 29.5 G/DL (32.0-36.0) 29.4 G/DL (32.0-36.0) 29.4 G/DL (32.0-36.0) Red Cell Distribution Width 23.3 % (11.6-14.8) 23.2 % (11.6-14.8) 23.0 % (11.6-14.8) Platelet Count 166 K/UL (150-450) 163 K/UL (150-450) 165 K/UL (150-450) Mean Platelet Volume 6.9 FL (6.5-10.1) 7.7 FL (6.5-10.1) 7.5 FL (6.5-10.1) Neutrophils (%) (Auto) 60.8 % (45.0-75.0) 60.6 % (45.0-75.0) 63.3 % (45.0-75.0) Lymphocytes (%) (Auto) 29.7 % (20.0-45.0) 28.0 % (20.0-45.0) 26.1 % (20.0-45.0) Monocytes (%) (Auto) 5.0 % (1.0-10.0) 5.4 % (1.0-10.0) 5.0 % (1.0-10.0) Eosinophils (%) (Auto) 3.8 % (0.0-3.0) 4.8 % (0.0-3.0) 4.7 % (0.0-3.0) Basophils (%) (Auto) 0.8 % (0.0-2.0) 1.1 % (0.0-2.0) 0.9 % (0.0-2.0) Sodium Level 150 MMOL/L (136-145) 151 MMOL/L (136-145) 149 MMOL/L (136-145) Potassium Level 6.3 MMOL/L (3.5-5.1) 5.9 MMOL/L (3.5-5.1) 4.9 MMOL/L (3.5-5.1) Chloride Level 117 MMOL/L (98-107) 116 MMOL/L (98-107) 112 MMOL/L (98-107) Carbon Dioxide Level 26 MMOL/L (21-32) 28 MMOL/L (21-32) 28 MMOL/L (21-32) Anion Gap 6 mmol/L (5-15) 7 mmol/L (5-15) 10 mmol/L (5-15) Blood Urea Nitrogen 45 mg/dL (7-18) 46 mg/dL (7-18) 45 mg/dL (7-18) Creatinine 1.3 MG/DL (0.55-1.30) 1.5 MG/DL (0.55-1.30) 1.5 MG/DL (0.55-1.30) Estimat Glomerular Filtration Rate mL/min (>60) mL/min (>60) mL/min (>60) Glucose Level 202 MG/DL (74-106) 225 MG/DL (74-106) 247 MG/DL (74-106) Calcium Level 9.3 MG/DL (8.5-10.1) 9.1 MG/DL (8.5-10.1) 8.9 MG/DL (8.5-10.1) Urine Random Sodium 156 mmol/L (20-110) Uric Acid 5.1 MG/DL (2.6-7.2) Phosphorus Level 4.2 MG/DL (2.5-4.9) Magnesium Level 1.9 MG/DL (1.8-2.4) Total Bilirubin 0.5 MG/DL (0.2-1.0) Aspartate Amino Transf (AST/SGOT) 16 U/L (15-37) Alanine Aminotransferase (ALT/SGPT) 6 U/L (12-78) Alkaline Phosphatase 136 U/L (46-116) Ammonia 50 umol/L (11-32) C-Reactive Protein, Quantitative 4.5 mg/dL (0.00-0.90) Pro-B-Type Natriuretic Peptide > 80999 pg/mL (0-125) Total Protein 7.3 G/DL (6.4-8.2) Albumin 1.8 G/DL (3.4-5.0) Globulin 5.5 g/dL Albumin/Globulin Ratio 0.3 (1.0-2.7) Random Vancomycin Level 7.9 ug/mL Test 06/14/19 05:30 Urine Eosinophils None seen (NONE SEEN) Height (Feet): 5 Height (Inches): 5.00 Weight (Pounds): 200 Objective HEAD AND NECK: No JVD. LUNGS: Decreased breath sounds. ++ Status post tracheostomy. CARDIOVASCULAR: Shows regular S1 and S2 with no gallop. ABDOMEN: Status post G-tube. EXTREMITIES: Have anasarca. Steven Norton MD Jun 14, 2019 12:37
--- NOTE | 2019-06-14 14:29 | Infectious Diseases Prog Note ---
Assessment/Plan Assessment/Plan Assessment: Sepsis -likely 2ry to PNA -06/14 CXR: Bilateral interstitial and airspace infiltrates versus edema, stable or slightly worse since prior exam of 7 days earlier -06/07 CXR: Bilateral infiltrates versus pulmonary edema. No interval change -06/04 CXR: Bilateral mixed interstitial and alveolar airspace opacities, slightly increased compared to the prior exam of 05/20/2019. Findings may be related to pulmonary edema and/or multifocal pneumonia. Clinical correlation/ follow-up recommended. Tracheostomy and gastrostomy tubes noted. -sp cx S. maltophila (R levaquin, S bactrim), DELFTIA ACIDOVORAN (only Antibiotic sensitivity reported is Zosyn which is S). -u/a no pyuria Gram positive bacteremia- likely contaminant -06/04 Bcvx 10/30 Bacillus sp (not anthracis); 06/06 Bcx Neg Low grade fever, SP Leukocytosis, SP Hx of PNA -05/18 sp cx S. 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 maltophila (Levaquin R) -06/11 SP Meropenem #7 -06/10 SP Levaquin #6 -06/09 SP IV Vancomycin #6 -06/05 SP Zosyn #2 -05/20 SP Zosyn #3 -05/18 SP IV Vancomycin #3 -/01/12 SP Cefepime #6 -04/22 SP Meropenem #5 -04/20 SP Vancomycin #8 - 04/18/19 S/P Cefepime #6 -f/u cx -Monitor CBC/CMP, temperatures -trach/peg/ICU care -aspiration precautions Thank you for this consultation. Will continue to follow along with you. Subjective Allergies: Coded Allergies: No Known Allergies (Unverified , 04/12/19) Subjective afebrile no leuokocytosis repeat Bcx Neg Objective Vital Signs Last 24 Hour Vital Signs Date Time Temp Pulse Resp B/P (MAP) Pulse Ox O2 Delivery O2 Flow Rate FiO2 06/14/19 13:30 159/91 06/14/19 13:02 66 16 30 06/14/19 12:00 30 06/14/19 12:00 97.9 76 16 159/91 (113) 99 06/14/19 12:00 Mechanical Ventilator 06/14/19 11:30 79 06/14/19 11:03 79 16 30 06/14/19 09:01 88 16 30 06/14/19 08:44 70 170/96 06/14/19 08:00 Mechanical Ventilator 06/14/19 08:00 98.0 70 16 170/96 (120) 100 06/14/19 08:00 65 06/14/19 08:00 30 06/14/19 07:30 165/83 06/14/19 06:58 80 16 30 06/14/19 05:25 174/93 06/14/19 05:10 84 16 30 06/14/19 04:03 69 06/14/19 04:00 Mechanical Ventilator 06/14/19 04:00 98.1 81 16 174/93 (120) 100 06/14/19 04:00 30 06/14/19 02:51 79 18 30 06/14/19 01:30 84 16 30 06/14/19 00:00 98.4 78 16 155/76 (102) 96 06/14/19 00:00 Mechanical Ventilator 06/14/19 00:00 30 06/13/19 23:40 68 06/13/19 23:22 79 18 30 06/13/19 21:01 79 17 30 06/13/19 20:35 70 165/82 06/13/19 20:00 30 06/13/19 20:00 Mechanical Ventilator 06/13/19 20:00 99.5 68 16 156/79 (104) 98 06/13/19 19:42 81 16 30 06/13/19 19:22 71 06/13/19 17:18 72 16 30 06/13/19 16:00 98.1 69 16 148/59 (88) 98 06/13/19 16:00 65 06/13/19 16:00 Mechanical Ventilator 06/13/19 16:00 30 06/13/19 14:57 88 20 30 Height (Feet): 5 Height (Inches): 5.00 Weight (Pounds): 200 Objective GENERAL: Trach, vent, altered, lethargic in bed, nonverbal. CARDIOVASCULAR: No murmurs. LUNGS: Poor air exchange. ABDOMEN: Bowel sounds distant. EXTREMITIES: No cyanosis, clubbing, or edema. NEUROLOGIC: The patient is flaccid in bed, not really following directions. Laboratory Tests Test 06/14/19 03:15 06/14/19 05:30 White Blood Count 8.0 K/UL (4.8-10.8) Red Blood Count 2.96 M/UL (4.20-5.40) L Hemoglobin 8.8 G/DL (12.0-16.0) L Hematocrit 29.9 % (37.0-47.0) L Mean Corpuscular Volume 101 FL (80-99) H Mean Corpuscular Hemoglobin 29.7 PG (27.0-31.0) Mean Corpuscular Hemoglobin Concent 29.4 G/DL (32.0-36.0) L Red Cell Distribution Width 23.0 % (11.6-14.8) H Platelet Count 165 K/UL (150-450) Mean Platelet Volume 7.5 FL (6.5-10.1) Neutrophils (%) (Auto) 63.3 % (45.0-75.0) Lymphocytes (%) (Auto) 26.1 % (20.0-45.0) Monocytes (%) (Auto) 5.0 % (1.0-10.0) Eosinophils (%) (Auto) 4.7 % (0.0-3.0) H Basophils (%) (Auto) 0.9 % (0.0-2.0) Sodium Level 149 MMOL/L (136-145) H Potassium Level 4.9 MMOL/L (3.5-5.1) Chloride Level 112 MMOL/L (98-107) H Carbon Dioxide Level 28 MMOL/L (21-32) Anion Gap 10 mmol/L (5-15) Blood Urea Nitrogen 45 mg/dL (7-18) H Creatinine 1.5 MG/DL (0.55-1.30) H Estimat Glomerular Filtration Rate mL/min (>60) Glucose Level 247 MG/DL (74-106) H Uric Acid 5.1 MG/DL (2.6-7.2) Calcium Level 8.9 MG/DL (8.5-10.1) Phosphorus Level 4.2 MG/DL (2.5-4.9) Magnesium Level 1.9 MG/DL (1.8-2.4) Total Bilirubin 0.5 MG/DL (0.2-1.0) Aspartate Amino Transf (AST/SGOT) 16 U/L (15-37) Alanine Aminotransferase (ALT/SGPT) 6 U/L (12-78) L Alkaline Phosphatase 136 U/L (46-116) H Ammonia 50 umol/L (11-32) H C-Reactive Protein, Quantitative 4.5 mg/dL (0.00-0.90) H Pro-B-Type Natriuretic Peptide > 17768 pg/mL (0-125) H Total Protein 7.3 G/DL (6.4-8.2) Albumin 1.8 G/DL (3.4-5.0) L Globulin 5.5 g/dL Albumin/Globulin Ratio 0.3 (1.0-2.7) L Random Vancomycin Level 7.9 ug/mL Urine Eosinophils None seen (NONE SEEN) Current Medications Medications (Trade) Dose Ordered Sig/Kenisha Route PRN Reason Start Time Stop Time Status Last Admin Dose Admin Acetaminophen (Tylenol) 650 mg Q4H PRN GT FEVER (temp>100.5 F) 06/09/19 14:30 07/04/19 13:29 Albuterol/ Ipratropium (Albuterol/ Ipratropium) 3 ml Q4H PRN HHN Shortness of Breath 06/11/19 12:00 06/16/19 11:59 Clonidine HCl (Catapres Tab) 0.1 mg EVERY 8 HOURS GT 06/14/19 07:15 07/14/19 07:14 06/14/19 13:30 Clonidine HCl (Catapres Tab) 0.1 mg Q6H PRN GT For High Blood Pressure 06/09/19 14:30 07/09/19 07:59 06/14/19 05:25 Clopidogrel Bisulfate (Plavix) 75 mg DAILY GT 06/12/19 09:00 07/12/19 08:59 06/14/19 08:44 Dextrose (Dextrose 50%) 25 ml Q30M PRN IV Hypoglycemia 06/06/19 13:30 07/04/19 15:21 Dextrose (Dextrose 50%) 50 ml Q30M PRN IV hypoglycemia 06/06/19 13:30 07/04/19 15:29 Heparin Sodium (Porcine) (Heparin 5000 units/ml) 5,000 units EVERY 12 HOURS SUBQ 06/06/19 21:00 07/04/19 20:59 06/14/19 08:56 Lorazepam (Ativan 2mg/ml 1ml) 2 mg Q2H PRN IV For Anxiety 06/11/19 12:00 06/16/19 11:59 Metoprolol Tartrate (Lopressor) 25 mg EVERY 12 HOURS GT 06/09/19 21:00 07/04/19 20:59 06/14/19 08:44 Morphine Sulfate (Morphine Sulfate) 4 mg Q4H PRN IVP Severe Pain (Pain Scale 7-10) 06/11/19 12:00 06/16/19 11:59 Ondansetron HCl (Zofran) 4 mg Q6H PRN IVP Nausea & Vomiting 06/06/19 13:30 07/04/19 13:29 Pantoprazole (Protonix) 40 mg Q12HR IV 06/13/19 21:00 07/05/19 08:59 06/14/19 08:44 Piperacillin Sod/ Tazobactam Sod 3.375 gm/Sodium Chloride 110 ml @ 27.5 mls/hr EVERY 12 HOURS IVPB 06/13/19 21:00 06/18/19 21:59 06/14/19 08:45 Polyethylene Glycol (Miralax) 17 gm DAILYPRN PRN GT Constipation 06/09/19 14:30 07/04/19 13:29 Trimethoprim/ Sulfamethoxazole (Bactrim-DS) 20 ml EVERY 12 HOURS GT 06/10/19 12:00 06/17/19 11:59 06/14/19 08:45 Cora Baer M.D. Jun 14, 2019 14:29
--- NOTE | 2019-06-14 15:22 | Cardiac Electrophysiology PN ---
Assessment/Plan Assessment/Plan 1. CHF with BNP of 35,000. Echo EF of 55% to 60%. 2. Hypertension. On Lopressor 25 bid and Clonidine 0.1 bid 3. History of atrial flutter that self-terminated. 4. Troponin leak and CAD with inferolateral T-wave inversion, levels flat and no CP. Could be due to severe anemia Hb 7.0. On Metoprolol 25 bid and Plavix 5. Sepsis with elevated white count. On IV antibiotics. 6. Ventilator-dependent respiratory failure, status post tracheostomy on April. 7. Dysphagia, status post PEG tube on April 22, 2019. 8. History of CVA and hemiplegia. 9. Nonverbal status. 10. Anemia status post blood transfusion.S/P another PRBC 06/05/19 Stool OB positive. S/P EGD tomorrow by Dr. Gentile 11. Status post renal failure. BUN and creatinine is 15 and 1.3. 12. Lactic acidosis, likely due to sepsis. 13. Hypokalemia, Replaced DW RN Subjective Subjective Son at bedside.In SR. DC planning back to [facility] pending Objective Last 24 Hour Vital Signs Date Time Temp Pulse Resp B/P (MAP) Pulse Ox O2 Delivery O2 Flow Rate FiO2 06/14/19 13:30 159/91 06/14/19 13:02 66 16 30 06/14/19 12:00 30 06/14/19 12:00 97.9 76 16 159/91 (113) 99 06/14/19 12:00 Mechanical Ventilator 06/14/19 11:30 79 06/14/19 11:03 79 16 30 06/14/19 09:01 88 16 30 06/14/19 08:44 70 170/96 06/14/19 08:00 Mechanical Ventilator 06/14/19 08:00 98.0 70 16 170/96 (120) 100 06/14/19 08:00 65 06/14/19 08:00 30 06/14/19 07:30 165/83 06/14/19 06:58 80 16 30 06/14/19 05:25 174/93 06/14/19 05:10 84 16 30 06/14/19 04:03 69 06/14/19 04:00 Mechanical Ventilator 06/14/19 04:00 98.1 81 16 174/93 (120) 100 06/14/19 04:00 30 06/14/19 02:51 79 18 30 06/14/19 01:30 84 16 30 06/14/19 00:00 98.4 78 16 155/76 (102) 96 06/14/19 00:00 Mechanical Ventilator 06/14/19 00:00 30 06/13/19 23:40 68 06/13/19 23:22 79 18 30 06/13/19 21:01 79 17 30 06/13/19 20:35 70 165/82 06/13/19 20:00 30 06/13/19 20:00 Mechanical Ventilator 06/13/19 20:00 99.5 68 16 156/79 (104) 98 06/13/19 19:42 81 16 30 06/13/19 19:22 71 06/13/19 17:18 72 16 30 06/13/19 16:00 98.1 69 16 148/59 (88) 98 06/13/19 16:00 65 06/13/19 16:00 Mechanical Ventilator 06/13/19 16:00 30 Intake and Output 06/13/19 06/14/19 19:00 07:00 Intake Total 1762.5 ml 840.0 ml Output Total 850 ml 600 ml Balance 912.5 ml 240.0 ml Free Water 200 ml 250 ml IV Total 1082.5 ml 110.0 ml Tube Feeding 480 ml 480 ml Output Urine Total 850 ml 600 ml # Bowel Movements 3 2 Laboratory Tests Test 06/14/19 03:15 06/14/19 05:30 White Blood Count 8.0 K/UL (4.8-10.8) Red Blood Count 2.96 M/UL (4.20-5.40) L Hemoglobin 8.8 G/DL (12.0-16.0) L Hematocrit 29.9 % (37.0-47.0) L Mean Corpuscular Volume 101 FL (80-99) H Mean Corpuscular Hemoglobin 29.7 PG (27.0-31.0) Mean Corpuscular Hemoglobin Concent 29.4 G/DL (32.0-36.0) L Red Cell Distribution Width 23.0 % (11.6-14.8) H Platelet Count 165 K/UL (150-450) Mean Platelet Volume 7.5 FL (6.5-10.1) Neutrophils (%) (Auto) 63.3 % (45.0-75.0) Lymphocytes (%) (Auto) 26.1 % (20.0-45.0) Monocytes (%) (Auto) 5.0 % (1.0-10.0) Eosinophils (%) (Auto) 4.7 % (0.0-3.0) H Basophils (%) (Auto) 0.9 % (0.0-2.0) Sodium Level 149 MMOL/L (136-145) H Potassium Level 4.9 MMOL/L (3.5-5.1) Chloride Level 112 MMOL/L (98-107) H Carbon Dioxide Level 28 MMOL/L (21-32) Anion Gap 10 mmol/L (5-15) Blood Urea Nitrogen 45 mg/dL (7-18) H Creatinine 1.5 MG/DL (0.55-1.30) H Estimat Glomerular Filtration Rate mL/min (>60) Glucose Level 247 MG/DL (74-106) H Uric Acid 5.1 MG/DL (2.6-7.2) Calcium Level 8.9 MG/DL (8.5-10.1) Phosphorus Level 4.2 MG/DL (2.5-4.9) Magnesium Level 1.9 MG/DL (1.8-2.4) Total Bilirubin 0.5 MG/DL (0.2-1.0) Aspartate Amino Transf (AST/SGOT) 16 U/L (15-37) Alanine Aminotransferase (ALT/SGPT) 6 U/L (12-78) L Alkaline Phosphatase 136 U/L (46-116) H Ammonia 50 umol/L (11-32) H C-Reactive Protein, Quantitative 4.5 mg/dL (0.00-0.90) H Pro-B-Type Natriuretic Peptide > 74930 pg/mL (0-125) H Total Protein 7.3 G/DL (6.4-8.2) Albumin 1.8 G/DL (3.4-5.0) L Globulin 5.5 g/dL Albumin/Globulin Ratio 0.3 (1.0-2.7) L Random Vancomycin Level 7.9 ug/mL Urine Eosinophils None seen (NONE SEEN) Objective HEAD AND NECK: No JVD. LUNGS: Decreased breath sounds. Status post tracheostomy. CARDIOVASCULAR: Regular S1 and S2 with no gallop. ABDOMEN: Status post G-tube. EXTREMITIES: Have anasarca. Claude Pena MD Jun 14, 2019 15:22
[2019-06-14 16:00] VITALS: BP 167/89
--- NOTE | 2019-06-14 17:41 | NUR ---
PROCESS STRIPPER NOTES SPOKE WITH MITCHELL FROM [facility], BED WILL BE AVAILABLE IN AM.PT TO DC TO [facility] IN AM TO ROOM [address] BED C. CHARGE NURSE MADE AWARE TO ENDORSE TO MAID HOUSEKEEPER. AUDIO VISUAL PRODUCTION SPECIALIST WILL BE AT 0800. [place] [phone]
--- NOTE | 2019-06-14 19:00 | NUR ---
HAND-OFF: Report given to HORTENCIA Gross. Patient remains in stable condition.
--- NOTE | 2019-06-14 19:04 | NUR ---
NURSE NOTES: Received patient from HORTENCIA Melara. Will continue plan of care.
[2019-06-14 20:00] VITALS: BP 173/84
--- NOTE | 2019-06-14 21:45 | General Progress Note ---
Assessment/Plan Problem List: (1) CAD (coronary artery disease) ICD Codes: I25.10 - Atherosclerotic heart disease of [place] coronary artery without angina pectoris SNOMED: 06810553 (2) GI bleed ICD Codes: K92.2 - Gastrointestinal hemorrhage, unspecified SNOMED: 79078259 (3) Hypertensive heart disease ICD Codes: I11.9 - Hypertensive heart disease without heart failure SNOMED: 12921439 (4) Diabetes mellitus ICD Codes: E11.9 - Type 2 diabetes mellitus without complications SNOMED: 06212649 (5) Right hemiplegia ICD Codes: G81.91 - Hemiplegia, unspecified affecting right dominant side SNOMED: 069466467 (6) 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 ICD Codes: E11.22 - Type 2 diabetes mellitus with diabetic chronic kidney disease; N18.4 - Chronic kidney disease, stage 4 (severe) SNOMED: 75334918, 366208446, 994274205 (7) At high risk for aspiration ICD Codes: Z91.89 - Other specified personal risk factors, not elsewhere classified SNOMED: 582568216 (8) UTI (urinary tract infection) ICD Codes: N39.0 - Urinary tract infection, site not specified SNOMED: 01070758 (9) Pulmonary hypertension ICD Codes: I27.20 - Pulmonary hypertension, unspecified SNOMED: 22042076 (10) Anemia in chronic kidney disease (CKD) ICD Codes: N18.9 - Chronic kidney disease, unspecified; D63.1 - Anemia in chronic kidney disease SNOMED: 522726864 Qualifiers: Qualified Codes: N18.2 - Chronic kidney disease, stage 2 (mild); D63.1 - Anemia in chronic kidney disease (11) Chronic respiratory failure ICD Codes: J96.10 - Chronic respiratory failure, unspecified whether with hypoxia or hypercapnia SNOMED: 46943282 Status: progressing, unchanged Assessment/Plan: niddm htn uti no acute events positive bs vitals stable abx per id afebrile Subjective ROS Limited/Unobtainable: Yes Allergies: Coded Allergies: No Known Allergies (Unverified , 04/12/19) Objective Last 24 Hour Vital Signs Date Time Temp Pulse Resp B/P (MAP) Pulse Ox O2 Delivery O2 Flow Rate FiO2 06/14/19 21:19 71 16 30 8/19/19 21:13 173/84 06/14/19 21:13 73 173/84 06/14/19 20:24 73 16 97 Mechanical Ventilator 30 06/14/19 20:00 97.7 69 16 173/84 (113) 100 06/14/19 20:00 30 06/14/19 20:00 Mechanical Ventilator 06/14/19 19:51 71 06/14/19 19:30 73 16 30 06/14/19 17:03 62 16 30 06/14/19 16:00 98.2 69 16 167/89 (115) 100 06/14/19 16:00 30 06/14/19 16:00 Mechanical Ventilator 06/14/19 15:29 69 16 30 06/14/19 15:28 77 06/14/19 13:30 159/91 06/14/19 13:02 66 16 30 06/14/19 12:00 30 06/14/19 12:00 97.9 76 16 159/91 (113) 99 06/14/19 12:00 Mechanical Ventilator 06/14/19 11:30 79 06/14/19 11:03 79 16 30 06/14/19 09:01 88 16 30 06/14/19 08:44 70 170/96 06/14/19 08:00 Mechanical Ventilator 06/14/19 08:00 98.0 70 16 170/96 (120) 100 06/14/19 08:00 65 06/14/19 08:00 30 06/14/19 07:30 165/83 06/14/19 06:58 80 16 30 06/14/19 05:25 174/93 06/14/19 05:10 84 16 30 06/14/19 04:03 69 06/14/19 04:00 Mechanical Ventilator 06/14/19 04:00 98.1 81 16 174/93 (120) 100 06/14/19 04:00 30 06/14/19 02:51 79 18 30 06/14/19 01:30 84 16 30 06/14/19 00:00 98.4 78 16 155/76 (102) 96 06/14/19 00:00 Mechanical Ventilator 06/14/19 00:00 30 06/13/19 23:40 68 06/13/19 23:22 79 18 30 Intake and Output 06/13/19 06/14/19 19:00 07:00 Intake Total 1762.5 ml 840.0 ml Output Total 850 ml 600 ml Balance 912.5 ml 240.0 ml Free Water 200 ml 250 ml IV Total 1082.5 ml 110.0 ml Tube Feeding 480 ml 480 ml Output Urine Total 850 ml 600 ml # Bowel Movements 3 2 Laboratory Tests 06/14/19 03:15: White Blood Count 8.0, Red Blood Count 2.96L, Hemoglobin 8.8L, Hematocrit 29.9L , Mean Corpuscular Volume 101H, Mean Corpuscular Hemoglobin 29.7, Mean Corpuscular Hemoglobin Concent 29.4L, Red Cell Distribution Width 23.0H, Platelet Count 165, Mean Platelet Volume 7.5, Neutrophils (%) (Auto) 63.3, Lymphocytes (%) (Auto) 26.1, Monocytes (%) (Auto) 5.0, Eosinophils (%) (Auto) 4.7H, Basophils (%) (Auto) 0.9, Sodium Level 149H, Potassium Level 4.9, Chloride Level 112H, Carbon Dioxide Level 28, Anion Gap 10, Blood Urea Nitrogen 45H, Creatinine 1.5H, Estimat Glomerular Filtration Rate , Glucose Level 247H, Uric Acid 5.1, Calcium Level 8.9, Phosphorus Level 4.2, Magnesium Level 1.9, Total Bilirubin 0.5, Aspartate Amino Transf (AST/SGOT) 16, Alanine Aminotransferase (ALT/SGPT) 6L, Alkaline Phosphatase 136H, Ammonia 50H, C- Reactive Protein, Quantitative 4.5H, Pro-B-Type Natriuretic Peptide > 01629W, Total Protein 7.3, Albumin 1.8L, Globulin 5.5, Albumin/Globulin Ratio 0.3L, Random Vancomycin Level 7.9 06/14/19 05:30: Urine Eosinophils None seen Height (Feet): 5 Height (Inches): 5.00 Weight (Pounds): 200 Cardiovascular: normal rate Respiratory/Chest: chest wall non-tender Abdomen: soft Glendy Taylor MD Jun 14, 2019 21:45
[2019-06-15] VITALS: BP 159/85
[2019-06-15 04:00] VITALS: BP 163/97
[2019-06-15 05:00] LABS: BASOPHILS % (AUTO) 0.9 % (0.0-2.0); EOSINOPHILS % (AUTO) 3.8 % (0.0-3.0); HEMOGLOBIN 8.3 G/DL (12.0-16.0); LYMPHOCYTES % (AUTO) 26.4 % (20.0-45.0); MEAN CORPUSCULAR VOLUME 101 FL (80-99); MONOCYTES % (AUTO) 4.3 % (1.0-10.0); NEUTROPHILS % (AUTO) 64.6 % (45.0-75.0); PLATELET COUNT 159 K/UL (150-450); RED BLOOD COUNT 2.77 M/UL (4.20-5.40); RED CELL DISTRIBUTION WIDTH 22.3 % (11.6-14.8)
[2019-06-15 05:19] LABS: ALANINE AMINOTRANSFERASE 8 U/L (12-78); ALBUMIN 1.9 G/DL (3.4-5.0); ALBUMIN/GLOBULIN RATIO 0.4 (1.0-2.7); ALKALINE PHOSPHATASE 135 U/L (46-116); ANION GAP 10 mmol/L (5-15); ASPARTATE AMINO TRANSFERASE 16 U/L (15-37); BILIRUBIN,TOTAL 0.5 MG/DL (0.2-1.0); BLOOD UREA NITROGEN 45 mg/dL (7-18); CARBON DIOXIDE 26 MMOL/L (21-32); CHLORIDE 116 MMOL/L (98-107); CREATININE 1.4 MG/DL (0.55-1.30); PHOSPHORUS 4.1 MG/DL (2.5-4.9); SODIUM 152 MMOL/L (136-145)
--- NOTE | 2019-06-15 07:05 | NUR ---
NURSE NOTES: Report given to Luis Alfredo from [facility] for discharge. Also made arrangements with Clay from [facility] for pickup.
--- NOTE | 2019-06-15 07:12 | NUR ---
HAND-OFF: Report given to HORTENCIA Melara.
--- NOTE | 2019-06-15 07:20 | NUR ---
NURSE NOTES: RECEIVED BED SIDE REPORT FROM [facility]YOTI [facility] [employer]. REC,D PT WITH HOB ELEVATED 45 DEGREE ,TRACH TO VENT ,NON- VERBAL .PT TOLERATING WELL CURRENTS VENT SETTINGS SAT 99% AT THIS TIME.PT RECEIVING GLUCERNA 1.5 @ 40CC/HRS ,NO RESIDUAL NOTED . FULL BODY ASSESSMENT DONE .PT REPOSITIONED Q 2HRS TO PREVENT SKIN BREAK DOWN. WILL CONT5 TO MONITOR.
[2019-06-15 08:00] VITALS: BP 168/89
[2019-06-15] MEDS: Bactrim Susp 20ml GT SCH (09:14)
[2019-06-15] MEDS: Pantoprazole Inj IV SCH (09:14)
[2019-06-15] MEDS: Metoprolol 25mg tab GT SCH (09:14)
[2019-06-15] MEDS: Heparin 5000 units/ml inj SUBQ SCH (09:16)
[2019-06-15] MEDS: Piperacillin/Tazobactam 3.375 GM in NS 110 ML IVPB SCH (09:17)
--- NOTE | 2019-06-15 10:24 | GI Progress Note ---
Assessment/Plan Problems: (1) GI bleed ICD Codes: K92.2 - Gastrointestinal hemorrhage, unspecified SNOMED: 64272448 (2) Black tarry stools ICD Codes: K92.1 - [place] SNOMED: 315947539 (3) Severe sepsis ICD Codes: A41.9 - Sepsis, unspecified organism; R65.20 - Severe sepsis without septic shock SNOMED: 02262364 (4) G tube feedings ICD Codes: Z93.1 - Gastrostomy status SNOMED: 977926782, 629702725, 999570102 (5) Anemia in chronic kidney disease (CKD) ICD Codes: N18.9 - Chronic kidney disease, unspecified; D63.1 - Anemia in chronic kidney disease SNOMED: 038196780 Qualifiers: Qualified Codes: N18.2 - Chronic kidney disease, stage 2 (mild); D63.1 - Anemia in chronic kidney disease Status: unchanged Status Narrative Discussed with Dr. Gentile. Assessment/Plan SUMMARY OF FINDINGS: Gastritis, otherwise normal upper endoscopic examination. G-tube in place without any obvious bleeding on the G-tube site. RECOMMENDATIONS: 1. Follow pathology. 2. Resume diet. 3. Monitor labs. 4. Transfuse as needed. 5. PPI daily. dc planning The patient was seen and examined at bedside and all new and available data was reviewed in the patients chart. I agree with the above findings, impression and plan. (Patient seen earlier today. Signature stamp does not reflect patient encounter time.). - Darron Gentile MD Subjective Subjective limited Objective Last 24 Hour Vital Signs Date Time Temp Pulse Resp B/P (MAP) Pulse Ox O2 Delivery O2 Flow Rate FiO2 06/15/19 10:18 66 16 30 06/15/19 09:14 66 168/89 06/15/19 08:00 98.1 66 18 168/89 (115) 98 06/15/19 08:00 Mechanical Ventilator 06/15/19 07:31 66 16 30 06/15/19 07:25 65 06/15/19 05:30 74 16 30 06/15/19 05:06 173/87 06/15/19 04:00 30 06/15/19 04:00 98.1 70 16 163/97 (119) 100 06/15/19 04:00 Mechanical Ventilator 06/15/19 03:56 78 06/15/19 03:23 71 16 30 06/15/19 01:29 69 16 30 06/15/19 00:00 Mechanical Ventilator 06/15/19 00:00 98.1 69 16 159/85 (109) 100 06/15/19 00:00 30 06/14/19 23:49 67 06/14/19 23:30 72 16 30 06/14/19 21:19 71 16 30 06/14/19 21:13 173/84 06/14/19 21:13 73 173/84 06/14/19 20:24 73 16 97 Mechanical Ventilator 30 06/14/19 20:00 97.7 69 16 173/84 (113) 100 06/14/19 20:00 30 06/14/19 20:00 Mechanical Ventilator 06/14/19 19:51 71 06/14/19 19:30 73 16 30 06/14/19 17:03 62 16 30 06/14/19 16:00 98.2 69 16 167/89 (115) 100 06/14/19 16:00 30 06/14/19 16:00 Mechanical Ventilator 06/14/19 15:29 69 16 30 06/14/19 15:28 77 06/14/19 13:30 159/91 06/14/19 13:02 66 16 30 06/14/19 12:00 30 06/14/19 12:00 97.9 76 16 159/91 (113) 99 06/14/19 12:00 Mechanical Ventilator 06/14/19 11:30 79 06/14/19 11:03 79 16 30 Intake and Output 06/14/19 06/15/19 19:00 07:00 Intake Total 815.0 ml 815.00 ml Output Total 800 ml 700 ml Balance 15.0 ml 115.00 ml Free Water 225 ml 225 ml IV Total 110.0 ml 110.00 ml Tube Feeding 480 ml 480 ml Output Urine Total 800 ml 700 ml # Bowel Movements 2 2 Laboratory Tests Test 06/15/19 00:00 06/15/19 03:15 Urine Eosinophils None seen (NONE SEEN) White Blood Count 8.0 K/UL (4.8-10.8) Red Blood Count 2.77 M/UL (4.20-5.40) L Hemoglobin 8.3 G/DL (12.0-16.0) L Hematocrit 28.0 % (37.0-47.0) L Mean Corpuscular Volume 101 FL (80-99) H Mean Corpuscular Hemoglobin 30.1 PG (27.0-31.0) Mean Corpuscular Hemoglobin Concent 29.8 G/DL (32.0-36.0) L Red Cell Distribution Width 22.3 % (11.6-14.8) H Platelet Count 159 K/UL (150-450) Mean Platelet Volume 8.2 FL (6.5-10.1) Neutrophils (%) (Auto) 64.6 % (45.0-75.0) Lymphocytes (%) (Auto) 26.4 % (20.0-45.0) Monocytes (%) (Auto) 4.3 % (1.0-10.0) Eosinophils (%) (Auto) 3.8 % (0.0-3.0) H Basophils (%) (Auto) 0.9 % (0.0-2.0) Sodium Level 152 MMOL/L (136-145) H Potassium Level 5.0 MMOL/L (3.5-5.1) Chloride Level 116 MMOL/L (98-107) H Carbon Dioxide Level 26 MMOL/L (21-32) Anion Gap 10 mmol/L (5-15) Blood Urea Nitrogen 45 mg/dL (7-18) H Creatinine 1.4 MG/DL (0.55-1.30) H Estimat Glomerular Filtration Rate mL/min (>60) Glucose Level 267 MG/DL (74-106) H Uric Acid 4.6 MG/DL (2.6-7.2) Calcium Level 9.0 MG/DL (8.5-10.1) Phosphorus Level 4.1 MG/DL (2.5-4.9) Magnesium Level 1.9 MG/DL (1.8-2.4) Total Bilirubin 0.5 MG/DL (0.2-1.0) Aspartate Amino Transf (AST/SGOT) 16 U/L (15-37) Alanine Aminotransferase (ALT/SGPT) 8 U/L (12-78) L Alkaline Phosphatase 135 U/L (46-116) H C-Reactive Protein, Quantitative 3.4 mg/dL (0.00-0.90) H Pro-B-Type Natriuretic Peptide > 62976 pg/mL (0-125) H Total Protein 6.8 G/DL (6.4-8.2) Albumin 1.9 G/DL (3.4-5.0) L Globulin 4.9 g/dL Albumin/Globulin Ratio 0.4 (1.0-2.7) L Height (Feet): 5 Height (Inches): 5.00 Weight (Pounds): 205 General Appearance: no apparent distress, alert Cardiovascular: normal rate Respiratory/Chest: normal breath sounds, no respiratory distress Abdominal Exam: normal bowel sounds, non tender, soft Extremities: non-tender Aron Torres NP Jun 15, 2019 10:24
--- NOTE | 2019-06-15 10:33 | Pulmonolgy Critical Care Note ---
Critical Care - Asmt/Plan Problems: (1) Acute and chronic respiratory failure (2) Nosocomial pneumonia (3) Acute metabolic encephalopathy (4) Anemia in chronic kidney disease (CKD) (5) Renal failure (ARF), acute on chronic (6) NSTEMI (non-ST elevated myocardial infarction) (7) G tube feedings (8) History of CVA (cerebrovascular accident) (9) CAD (coronary artery disease) (10) Right hemiplegia (11) Diabetes mellitus (12) Hypertensive heart disease Respiratory: monitor respiratory rate, adjust FIO2, CXR Cardiac: continue to monitor HR/BP Renal: F/U I&O, keep IV fluid, check electrolytes Infectious Disease: check cultures, continue antibiotics Gastrointestinal: continue feedings/current rate Endocrine: monitor blood sugar, continue sliding scale insulin Hematologic: monitor H/H, transfuse if hgb<8.5 Neurologic: PRN Ativan, keep patient comfortable Affect: PRN ativan Time Spent (Minutes): 40 Notes Reviewed: head school custodian, cardio, renal Discussed with: nurses, consultants, child welfare caseworkerslot manager - Objective Last 24 Hour Vital Signs Date Time Temp Pulse Resp B/P (MAP) Pulse Ox O2 Delivery O2 Flow Rate FiO2 06/15/19 10:18 66 16 30 06/15/19 09:14 66 168/89 06/15/19 08:00 98.1 66 18 168/89 (115) 98 06/15/19 08:00 Mechanical Ventilator 06/15/19 07:31 66 16 30 06/15/19 07:25 65 06/15/19 05:30 74 16 30 06/15/19 05:06 173/87 06/15/19 04:00 30 06/15/19 04:00 98.1 70 16 163/97 (119) 100 06/15/19 04:00 Mechanical Ventilator 06/15/19 03:56 78 06/15/19 03:23 71 16 30 06/15/19 01:29 69 16 30 06/15/19 00:00 Mechanical Ventilator 06/15/19 00:00 98.1 69 16 159/85 (109) 100 06/15/19 00:00 30 06/14/19 23:49 67 06/14/19 23:30 72 16 30 06/14/19 21:19 71 16 30 06/14/19 21:13 173/84 06/14/19 21:13 73 173/84 06/14/19 20:24 73 16 97 Mechanical Ventilator 30 06/14/19 20:00 97.7 69 16 173/84 (113) 100 06/14/19 20:00 30 06/14/19 20:00 Mechanical Ventilator 06/14/19 19:51 71 06/14/19 19:30 73 16 30 06/14/19 17:03 62 16 30 06/14/19 16:00 98.2 69 16 167/89 (115) 100 06/14/19 16:00 30 06/14/19 16:00 Mechanical Ventilator 06/14/19 15:29 69 16 30 06/14/19 15:28 77 06/14/19 13:30 159/91 06/14/19 13:02 66 16 30 06/14/19 12:00 30 06/14/19 12:00 97.9 76 16 159/91 (113) 99 06/14/19 12:00 Mechanical Ventilator 06/14/19 11:30 79 06/14/19 11:03 79 16 30 Status: awake Condition: critical HEENT: atraumatic Lungs: clear Heart: regular Abdomen: soft, feeding tube Extremities: no C/C/E Critical Care - Subjective ROS Limited/Unobtainable: Yes Interval Events: awake, no new complains Condition: critical EKG Rhythm: Sinus Rhythm FI02: 30 Vent Support Breath Rate: 16 Vent Support Mode: AC Vent Tidal Volume: 500 Sputum Amount: Small PEEP: 5.0 PIP: 39 Tube Feeding Amount: 40 I&O: Intake and Output 06/14/19 06/15/19 19:00 07:00 Intake Total 815.0 ml 815.00 ml Output Total 800 ml 700 ml Balance 15.0 ml 115.00 ml Free Water 225 ml 225 ml IV Total 110.0 ml 110.00 ml Tube Feeding 480 ml 480 ml Output Urine Total 800 ml 700 ml # Bowel Movements 2 2 Labs: Laboratory Tests Test 06/15/19 00:00 06/15/19 03:15 Urine Eosinophils None seen (NONE SEEN) White Blood Count 8.0 K/UL (4.8-10.8) Red Blood Count 2.77 M/UL (4.20-5.40) L Hemoglobin 8.3 G/DL (12.0-16.0) L Hematocrit 28.0 % (37.0-47.0) L Mean Corpuscular Volume 101 FL (80-99) H Mean Corpuscular Hemoglobin 30.1 PG (27.0-31.0) Mean Corpuscular Hemoglobin Concent 29.8 G/DL (32.0-36.0) L Red Cell Distribution Width 22.3 % (11.6-14.8) H Platelet Count 159 K/UL (150-450) Mean Platelet Volume 8.2 FL (6.5-10.1) Neutrophils (%) (Auto) 64.6 % (45.0-75.0) Lymphocytes (%) (Auto) 26.4 % (20.0-45.0) Monocytes (%) (Auto) 4.3 % (1.0-10.0) Eosinophils (%) (Auto) 3.8 % (0.0-3.0) H Basophils (%) (Auto) 0.9 % (0.0-2.0) Sodium Level 152 MMOL/L (136-145) H Potassium Level 5.0 MMOL/L (3.5-5.1) Chloride Level 116 MMOL/L (98-107) H Carbon Dioxide Level 26 MMOL/L (21-32) Anion Gap 10 mmol/L (5-15) Blood Urea Nitrogen 45 mg/dL (7-18) H Creatinine 1.4 MG/DL (0.55-1.30) H Estimat Glomerular Filtration Rate mL/min (>60) Glucose Level 267 MG/DL (74-106) H Uric Acid 4.6 MG/DL (2.6-7.2) Calcium Level 9.0 MG/DL (8.5-10.1) Phosphorus Level 4.1 MG/DL (2.5-4.9) Magnesium Level 1.9 MG/DL (1.8-2.4) Total Bilirubin 0.5 MG/DL (0.2-1.0) Aspartate Amino Transf (AST/SGOT) 16 U/L (15-37) Alanine Aminotransferase (ALT/SGPT) 8 U/L (12-78) L Alkaline Phosphatase 135 U/L (46-116) H C-Reactive Protein, Quantitative 3.4 mg/dL (0.00-0.90) H Pro-B-Type Natriuretic Peptide > 83780 pg/mL (0-125) H Total Protein 6.8 G/DL (6.4-8.2) Albumin 1.9 G/DL (3.4-5.0) L Globulin 4.9 g/dL Albumin/Globulin Ratio 0.4 (1.0-2.7) L Tony Springer MD Jun 15, 2019 10:33
--- NOTE | 2019-06-15 11:20 | Nephrology Progress Note ---
Assessment/Plan Problem List: (1) Renal failure (ARF), acute on chronic (2) Hypertensive heart disease Assessment: HTN OOC (3) Anemia in chronic kidney disease (CKD) (4) History of CVA (cerebrovascular accident) (5) G tube feedings Assessment admitted for sepsis and bacteremia - Assessment/Plan Oliguria / HyperKalemia / Rising Cr: indicative of acute renal failure due: - Sepsis - Medication: ? bactrim Vanco.... other conditions; Acute on chronic resp failure Renal failure (ARF), acute on chronic Anemia in chronic kidney disease (CKD) Diabetes mellitus G tube feedings Chronic respiratory failure Plan Aim to adjust BP meds for better BP control Continue fluid challenge as needed monitor I&O Avoid Nephrotoxics Monitor renal parameters per orders Subjective ROS Limited/Unobtainable: Yes Objective Objective Last 24 Hour Vital Signs Date Time Temp Pulse Resp B/P (MAP) Pulse Ox O2 Delivery O2 Flow Rate FiO2 06/15/19 10:47 68 16 30 06/15/19 10:18 66 16 30 06/15/19 09:14 66 168/89 06/15/19 08:00 98.1 66 18 168/89 (115) 98 06/15/19 08:00 Mechanical Ventilator 06/15/19 07:31 66 16 30 06/15/19 07:25 65 06/15/19 05:30 74 16 30 06/15/19 05:06 173/87 06/15/19 04:00 30 06/15/19 04:00 98.1 70 16 163/97 (119) 100 06/15/19 04:00 Mechanical Ventilator 06/15/19 03:56 78 06/15/19 03:23 71 16 30 06/15/19 01:29 69 16 30 06/15/19 00:00 Mechanical Ventilator 06/15/19 00:00 98.1 69 16 159/85 (109) 100 06/15/19 00:00 30 06/14/19 23:49 67 06/14/19 23:30 72 16 30 06/14/19 21:19 71 16 30 06/14/19 21:13 173/84 06/14/19 21:13 73 173/84 06/14/19 20:24 73 16 97 Mechanical Ventilator 30 06/14/19 20:00 97.7 69 16 173/84 (113) 100 06/14/19 20:00 30 06/14/19 20:00 Mechanical Ventilator 06/14/19 19:51 71 06/14/19 19:30 73 16 30 06/14/19 17:03 62 16 30 06/14/19 16:00 98.2 69 16 167/89 (115) 100 06/14/19 16:00 30 06/14/19 16:00 Mechanical Ventilator 06/14/19 15:29 69 16 30 06/14/19 15:28 77 06/14/19 13:30 159/91 06/14/19 13:02 66 16 30 06/14/19 12:00 30 06/14/19 12:00 97.9 76 16 159/91 (113) 99 06/14/19 12:00 Mechanical Ventilator 06/14/19 11:30 79 Intake and Output 06/14/19 06/15/19 19:00 07:00 Intake Total 815.0 ml 815.00 ml Output Total 800 ml 700 ml Balance 15.0 ml 115.00 ml Free Water 225 ml 225 ml IV Total 110.0 ml 110.00 ml Tube Feeding 480 ml 480 ml Output Urine Total 800 ml 700 ml # Bowel Movements 2 2 Laboratory Tests 06/15/19 00:00: Urine Eosinophils None seen 06/15/19 03:15: White Blood Count 8.0, Red Blood Count 2.77L, Hemoglobin 8.3L, Hematocrit 28.0L , Mean Corpuscular Volume 101H, Mean Corpuscular Hemoglobin 30.1, Mean Corpuscular Hemoglobin Concent 29.8L, Red Cell Distribution Width 22.3H, Platelet Count 159, Mean Platelet Volume 8.2, Neutrophils (%) (Auto) 64.6, Lymphocytes (%) (Auto) 26.4, Monocytes (%) (Auto) 4.3, Eosinophils (%) (Auto) 3.8H, Basophils (%) (Auto) 0.9, Sodium Level 152H, Potassium Level 5.0, Chloride Level 116H, Carbon Dioxide Level 26, Anion Gap 10, Blood Urea Nitrogen 45H, Creatinine 1.4H, Estimat Glomerular Filtration Rate , Glucose Level 267H, Uric Acid 4.6, Calcium Level 9.0, Phosphorus Level 4.1, Magnesium Level 1.9, Total Bilirubin 0.5, Aspartate Amino Transf (AST/SGOT) 16, Alanine Aminotransferase (ALT/SGPT) 8L, Alkaline Phosphatase 135H, C-Reactive Protein, Quantitative 3.4H, Pro-B-Type Natriuretic Peptide > 60970J, Total Protein 6.8, Albumin 1.9L, Globulin 4.9, Albumin/Globulin Ratio 0.4L Height (Feet): 5 Height (Inches): 5.00 Weight (Pounds): 205 General Appearance: no apparent distress Cardiovascular: normal rate Respiratory/Chest: decreased breath sounds Abdomen: distended Wally Spivey MD Jun 15, 2019 11:20
[2019-06-15 12:00] VITALS: BP 149/80
--- NOTE | 2019-06-15 12:02 | Infectious Diseases Prog Note ---
Assessment/Plan Assessment/Plan Assessment: Sepsis -likely 2ry to PNA -06/14 CXR: Bilateral interstitial and airspace infiltrates versus edema, stable or slightly worse since prior exam of 7 days earlier -06/07 CXR: Bilateral infiltrates versus pulmonary edema. No interval change -06/04 CXR: Bilateral mixed interstitial and alveolar airspace opacities, slightly increased compared to the prior exam of 05/20/2019. Findings may be related to pulmonary edema and/or multifocal pneumonia. Clinical correlation/ follow-up recommended. Tracheostomy and gastrostomy tubes noted. -sp cx S. maltophila (R levaquin, S bactrim), DELFTIA ACIDOVORAN (only Antibiotic sensitivity reported is Zosyn which is S). -u/a no pyuria Gram positive bacteremia- likely contaminant -06/04 Bcvx 10/30 Bacillus sp (not anthracis); 06/06 Bcx Neg Low grade fever, SP Leukocytosis, SP Hx of PNA -05/18 sp cx S. 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 maltophila (Levaquin R) -06/11 SP Meropenem #7 -06/10 SP Levaquin #6 -06/09 SP IV Vancomycin #6 -06/05 SP Zosyn #2 -05/20 SP Zosyn #3 -05/18 SP IV Vancomycin #3 -/01/12 SP Cefepime #6 -04/22 SP Meropenem #5 -04/20 SP Vancomycin #8 - 04/18/19 S/P Cefepime #6 -f/u cx -Monitor CBC/CMP, temperatures -trach/peg/ICU care -aspiration precautions Thank you for this consultation. Will continue to follow along with you. Subjective Allergies: Coded Allergies: No Known Allergies (Unverified , 04/12/19) Subjective afebrile no leuokocytosis Objective Vital Signs Last 24 Hour Vital Signs Date Time Temp Pulse Resp B/P (MAP) Pulse Ox O2 Delivery O2 Flow Rate FiO2 06/15/19 10:47 68 16 30 06/15/19 10:18 66 16 30 06/15/19 09:14 66 168/89 06/15/19 08:00 30 06/15/19 08:00 98.1 66 18 168/89 (115) 98 06/15/19 08:00 Mechanical Ventilator 06/15/19 07:31 66 16 30 06/15/19 07:25 65 06/15/19 05:30 74 16 30 06/15/19 05:06 173/87 06/15/19 04:00 30 06/15/19 04:00 98.1 70 16 163/97 (119) 100 06/15/19 04:00 Mechanical Ventilator 06/15/19 03:56 78 06/15/19 03:23 71 16 30 06/15/19 01:29 69 16 30 06/15/19 00:00 Mechanical Ventilator 06/15/19 00:00 98.1 69 16 159/85 (109) 100 06/15/19 00:00 30 06/14/19 23:49 67 06/14/19 23:30 72 16 30 06/14/19 21:19 71 16 30 06/14/19 21:13 173/84 06/14/19 21:13 73 173/84 06/14/19 20:24 73 16 97 Mechanical Ventilator 30 06/14/19 20:00 97.7 69 16 173/84 (113) 100 06/14/19 20:00 30 06/14/19 20:00 Mechanical Ventilator 06/14/19 19:51 71 06/14/19 19:30 73 16 30 06/14/19 17:03 62 16 30 06/14/19 16:00 98.2 69 16 167/89 (115) 100 06/14/19 16:00 30 06/14/19 16:00 Mechanical Ventilator 06/14/19 15:29 69 16 30 06/14/19 15:28 77 06/14/19 13:30 159/91 06/14/19 13:02 66 16 30 06/14/19 12:00 30 06/14/19 12:00 97.9 76 16 159/91 (113) 99 06/14/19 12:00 Mechanical Ventilator Height (Feet): 5 Height (Inches): 5.00 Weight (Pounds): 205 Objective GENERAL: Trach, vent, altered, lethargic in bed, nonverbal. CARDIOVASCULAR: No murmurs. LUNGS: Poor air exchange. ABDOMEN: Bowel sounds distant. EXTREMITIES: No cyanosis, clubbing, or edema. NEUROLOGIC: The patient is flaccid in bed, not really following directions. Laboratory Tests Test 06/15/19 00:00 06/15/19 03:15 Urine Eosinophils None seen (NONE SEEN) White Blood Count 8.0 K/UL (4.8-10.8) Red Blood Count 2.77 M/UL (4.20-5.40) L Hemoglobin 8.3 G/DL (12.0-16.0) L Hematocrit 28.0 % (37.0-47.0) L Mean Corpuscular Volume 101 FL (80-99) H Mean Corpuscular Hemoglobin 30.1 PG (27.0-31.0) Mean Corpuscular Hemoglobin Concent 29.8 G/DL (32.0-36.0) L Red Cell Distribution Width 22.3 % (11.6-14.8) H Platelet Count 159 K/UL (150-450) Mean Platelet Volume 8.2 FL (6.5-10.1) Neutrophils (%) (Auto) 64.6 % (45.0-75.0) Lymphocytes (%) (Auto) 26.4 % (20.0-45.0) Monocytes (%) (Auto) 4.3 % (1.0-10.0) Eosinophils (%) (Auto) 3.8 % (0.0-3.0) H Basophils (%) (Auto) 0.9 % (0.0-2.0) Sodium Level 152 MMOL/L (136-145) H Potassium Level 5.0 MMOL/L (3.5-5.1) Chloride Level 116 MMOL/L (98-107) H Carbon Dioxide Level 26 MMOL/L (21-32) Anion Gap 10 mmol/L (5-15) Blood Urea Nitrogen 45 mg/dL (7-18) H Creatinine 1.4 MG/DL (0.55-1.30) H Estimat Glomerular Filtration Rate mL/min (>60) Glucose Level 267 MG/DL (74-106) H Uric Acid 4.6 MG/DL (2.6-7.2) Calcium Level 9.0 MG/DL (8.5-10.1) Phosphorus Level 4.1 MG/DL (2.5-4.9) Magnesium Level 1.9 MG/DL (1.8-2.4) Total Bilirubin 0.5 MG/DL (0.2-1.0) Aspartate Amino Transf (AST/SGOT) 16 U/L (15-37) Alanine Aminotransferase (ALT/SGPT) 8 U/L (12-78) L Alkaline Phosphatase 135 U/L (46-116) H C-Reactive Protein, Quantitative 3.4 mg/dL (0.00-0.90) H Pro-B-Type Natriuretic Peptide > 26459 pg/mL (0-125) H Total Protein 6.8 G/DL (6.4-8.2) Albumin 1.9 G/DL (3.4-5.0) L Globulin 4.9 g/dL Albumin/Globulin Ratio 0.4 (1.0-2.7) L Current Medications Medications (Trade) Dose Ordered Sig/Kenisha Route PRN Reason Start Time Stop Time Status Last Admin Dose Admin Acetaminophen (Tylenol) 650 mg Q4H PRN GT FEVER (temp>100.5 F) 06/09/19 14:30 07/04/19 13:29 Albuterol/ Ipratropium (Albuterol/ Ipratropium) 3 ml Q4H PRN HHN Shortness of Breath 06/11/19 12:00 06/16/19 11:59 Clonidine HCl (Catapres Tab) 0.1 mg EVERY 8 HOURS GT 06/14/19 07:15 07/14/19 07:14 06/15/19 05:06 Clonidine HCl (Catapres Tab) 0.1 mg Q6H PRN GT For High Blood Pressure 06/09/19 14:30 07/09/19 07:59 06/14/19 05:25 Clopidogrel Bisulfate (Plavix) 75 mg DAILY GT 06/12/19 09:00 07/12/19 08:59 06/15/19 09:14 Dextrose (Dextrose 50%) 25 ml Q30M PRN IV Hypoglycemia 06/06/19 13:30 07/04/19 15:21 Dextrose (Dextrose 50%) 50 ml Q30M PRN IV hypoglycemia 06/06/19 13:30 07/04/19 15:29 Heparin Sodium (Porcine) (Heparin 5000 units/ml) 5,000 units EVERY 12 HOURS SUBQ 06/06/19 21:00 07/04/19 20:59 06/15/19 09:16 Lorazepam (Ativan 2mg/ml 1ml) 2 mg Q2H PRN IV For Anxiety 06/11/19 12:00 06/16/19 11:59 Metoprolol Tartrate (Lopressor) 25 mg EVERY 12 HOURS GT 06/09/19 21:00 07/04/19 20:59 06/15/19 09:14 Morphine Sulfate (Morphine Sulfate) 4 mg Q4H PRN IVP Severe Pain (Pain Scale 7-10) 06/11/19 12:00 06/16/19 11:59 Ondansetron HCl (Zofran) 4 mg Q6H PRN IVP Nausea & Vomiting 06/06/19 13:30 07/04/19 13:29 Pantoprazole (Protonix) 40 mg Q12HR IV 06/13/19 21:00 07/05/19 08:59 06/15/19 09:14 Piperacillin Sod/ Tazobactam Sod 3.375 gm/Sodium Chloride 110 ml @ 27.5 mls/hr EVERY 12 HOURS IVPB 06/13/19 21:00 06/18/19 21:59 06/15/19 09:17 Polyethylene Glycol (Miralax) 17 gm DAILYPRN PRN GT Constipation 06/09/19 14:30 07/04/19 13:29 Trimethoprim/ Sulfamethoxazole (Bactrim-DS) 20 ml EVERY 12 HOURS GT 06/10/19 12:00 06/17/19 11:59 06/15/19 09:14 Cora Baer M.D. Jun 15, 2019 12:02
--- NOTE | 2019-06-15 12:39 | General Progress Note ---
Assessment/Plan Problem List: (1) CAD (coronary artery disease) ICD Codes: I25.10 - Atherosclerotic heart disease of [place] coronary artery without angina pectoris SNOMED: 29318298 (2) GI bleed ICD Codes: K92.2 - Gastrointestinal hemorrhage, unspecified SNOMED: 65186034 (3) Hypertensive heart disease ICD Codes: I11.9 - Hypertensive heart disease without heart failure SNOMED: 77310215 (4) Diabetes mellitus ICD Codes: E11.9 - Type 2 diabetes mellitus without complications SNOMED: 35924422 (5) Right hemiplegia ICD Codes: G81.91 - Hemiplegia, unspecified affecting right dominant side SNOMED: 895750139 (6) 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 ICD Codes: E11.22 - Type 2 diabetes mellitus with diabetic chronic kidney disease; N18.4 - Chronic kidney disease, stage 4 (severe) SNOMED: 81190016, 381698854, 621764547 (7) At high risk for aspiration ICD Codes: Z91.89 - Other specified personal risk factors, not elsewhere classified SNOMED: 693200596 (8) UTI (urinary tract infection) ICD Codes: N39.0 - Urinary tract infection, site not specified SNOMED: 36568673 (9) Pulmonary hypertension ICD Codes: I27.20 - Pulmonary hypertension, unspecified SNOMED: 17429074 (10) Anemia in chronic kidney disease (CKD) ICD Codes: N18.9 - Chronic kidney disease, unspecified; D63.1 - Anemia in chronic kidney disease SNOMED: 893989869 Qualifiers: Qualified Codes: N18.2 - Chronic kidney disease, stage 2 (mild); D63.1 - Anemia in chronic kidney disease (11) Chronic respiratory failure ICD Codes: J96.10 - Chronic respiratory failure, unspecified whether with hypoxia or hypercapnia SNOMED: 53460647 Status: unchanged Assessment/Plan: niddm htn uti gi bleed pulm htn reviewed chart and labs no acute events check sugar abx per id no wheezing Subjective ROS Limited/Unobtainable: Yes Allergies: Coded Allergies: No Known Allergies (Unverified , 04/12/19) Objective Last 24 Hour Vital Signs Date Time Temp Pulse Resp B/P (MAP) Pulse Ox O2 Delivery O2 Flow Rate FiO2 06/15/19 12:00 30 06/15/19 12:00 Mechanical Ventilator 06/15/19 10:47 68 16 30 06/15/19 10:18 66 16 30 06/15/19 09:14 66 168/89 06/15/19 08:00 30 06/15/19 08:00 98.1 66 18 168/89 (115) 98 06/15/19 08:00 Mechanical Ventilator 06/15/19 07:31 66 16 30 06/15/19 07:25 65 06/15/19 05:30 74 16 30 06/15/19 05:06 173/87 06/15/19 04:00 30 06/15/19 04:00 98.1 70 16 163/97 (119) 100 06/15/19 04:00 Mechanical Ventilator 06/15/19 03:56 78 06/15/19 03:23 71 16 30 06/15/19 01:29 69 16 30 06/15/19 00:00 Mechanical Ventilator 06/15/19 00:00 98.1 69 16 159/85 (109) 100 06/15/19 00:00 30 06/14/19 23:49 67 06/14/19 23:30 72 16 30 06/14/19 21:19 71 16 30 06/14/19 21:13 173/84 06/14/19 21:13 73 173/84 06/14/19 20:24 73 16 97 Mechanical Ventilator 30 06/14/19 20:00 97.7 69 16 173/84 (113) 100 06/14/19 20:00 30 06/14/19 20:00 Mechanical Ventilator 06/14/19 19:51 71 06/14/19 19:30 73 16 30 06/14/19 17:03 62 16 30 06/14/19 16:00 98.2 69 16 167/89 (115) 100 06/14/19 16:00 30 06/14/19 16:00 Mechanical Ventilator 06/14/19 15:29 69 16 30 06/14/19 15:28 77 06/14/19 13:30 159/91 06/14/19 13:02 66 16 30 Intake and Output 06/14/19 06/15/19 19:00 07:00 Intake Total 815.0 ml 815.00 ml Output Total 800 ml 700 ml Balance 15.0 ml 115.00 ml Free Water 225 ml 225 ml IV Total 110.0 ml 110.00 ml Tube Feeding 480 ml 480 ml Output Urine Total 800 ml 700 ml # Bowel Movements 2 2 Laboratory Tests 06/15/19 00:00: Urine Eosinophils None seen 06/15/19 03:15: White Blood Count 8.0, Red Blood Count 2.77L, Hemoglobin 8.3L, Hematocrit 28.0L , Mean Corpuscular Volume 101H, Mean Corpuscular Hemoglobin 30.1, Mean Corpuscular Hemoglobin Concent 29.8L, Red Cell Distribution Width 22.3H, Platelet Count 159, Mean Platelet Volume 8.2, Neutrophils (%) (Auto) 64.6, Lymphocytes (%) (Auto) 26.4, Monocytes (%) (Auto) 4.3, Eosinophils (%) (Auto) 3.8H, Basophils (%) (Auto) 0.9, Sodium Level 152H, Potassium Level 5.0, Chloride Level 116H, Carbon Dioxide Level 26, Anion Gap 10, Blood Urea Nitrogen 45H, Creatinine 1.4H, Estimat Glomerular Filtration Rate , Glucose Level 267H, Uric Acid 4.6, Calcium Level 9.0, Phosphorus Level 4.1, Magnesium Level 1.9, Total Bilirubin 0.5, Aspartate Amino Transf (AST/SGOT) 16, Alanine Aminotransferase (ALT/SGPT) 8L, Alkaline Phosphatase 135H, C-Reactive Protein, Quantitative 3.4H, Pro-B-Type Natriuretic Peptide > 47822E, Total Protein 6.8, Albumin 1.9L, Globulin 4.9, Albumin/Globulin Ratio 0.4L Height (Feet): 5 Height (Inches): 5.00 Weight (Pounds): 205 Cardiovascular: normal rate Respiratory/Chest: lungs clear Glendy Taylor MD Jun 15, 2019 12:39
--- NOTE | 2019-06-15 13:46 | Hematology/Onc Progress Note ---
Assessment/Plan Assessment/Plan Assessment/Plan: # Anemia of chronic disease likely multifactorial process, in the past has had anemia as well --> w/u reveals ferritin is >1500, esr and crp are elevated --> on abx at this time, ID recs as needed --> smear has been reviewed, no schistocytes noted --> monitor for bleed, transfuse with 1 unit 06/05 --> hgb goal >7 and transfuse as needed --> cea is 4.2 is wnl --> hgb 8.3-->8.2-->8.5->8.7->8.9->8.8-->8.3 # Leukocytosis with Pulmonary infiltrates vs pulmonary edema hx of trach, had sepsis --> on abx per id --> CXR: Excessive bilateral diffuse infiltrates versus edema, increased from prior study of 05/05/2019 --> on annmarie and vanc iv abx-> zosyn/bactrim --> imaging has been reviewed # REMY on CKD --> per renal recs # Recent PNA --> s/p abx with Rx # HyperGlycemia / DM 24 H urine protein check 2.4 gram --> dm management # Right Esvin due to CVA --> ok to resume plafix # HTN is on metp --> sbp goal <150 # chronic resp failure s/p trach/vent dependant --> trach on 05/03/19 # Dysphagia s/p PEG # Nonverbal status # SNF resident # DVT ppx with heparin sq Time of note does not necessarily correspond to when patient was seen. Greatly appreciate consultation. Subjective Constitutional: Denies: no symptoms, chills, fever, malaise, weakness, other Cardiovascular: Denies: no symptoms, chest pain, edema, irregular heart rate, lightheadedness, palpitations, syncope, other Gastrointestinal/Abdominal: Denies: no symptoms, abdomen distended, abdominal pain, black stools, tarry stools, blood in stool, constipated, diarrhea, difficulty swallowing, nausea, poor appetite, poor fluid intake, rectal bleeding , vomiting, other Genitourinary: Denies: no symptoms, burning, discharge, frequency, flank pain, hematuria, incontinence, pain, urgency, other Neurologic/Psychiatric: Denies: no symptoms, anxiety, depressed, emotional problems, headache, numbness, paresthesia, pre-existing deficit, seizure, tingling, tremors, weakness, other Endocrine: Denies: no symptoms, excessive sweating, flushing, intolerance to cold, intolerance to heat, increased hunger, increased thirst, increased urine, unexplained weight gain, unexplained weight loss, other Allergies: Coded Allergies: No Known Allergies (Unverified , 04/12/19) Subjective 06/07: on trach, vent, remains altered, is off pressors, h/h reviewed 06/08: to go for egd tomorrow, labs reviewed, no f/c 06/09: egd done, results pending, no f/c, on gtube feeds 06/10: remains on gtube feeds, is alert and oriented x1, pending placement 06/11: no events noted no bleeding or chills, hgb stable 06/14: remains on vent, on abx, hgb stable 06/15: potential dc soon, on abx, no events, labs reviewed Objective Objective Current Medications Medications (Trade) Dose Ordered Sig/Kenisha Route PRN Reason Start Time Stop Time Status Last Admin Dose Admin Acetaminophen (Tylenol) 650 mg Q4H PRN GT FEVER (temp>100.5 F) 06/09/19 14:30 07/04/19 13:29 Albuterol/ Ipratropium (Albuterol/ Ipratropium) 3 ml Q4H PRN HHN Shortness of Breath 06/11/19 12:00 06/16/19 11:59 Clonidine HCl (Catapres Tab) 0.1 mg EVERY 8 HOURS GT 06/14/19 07:15 07/14/19 07:14 06/15/19 05:06 Clonidine HCl (Catapres Tab) 0.1 mg Q6H PRN GT For High Blood Pressure 06/09/19 14:30 07/09/19 07:59 06/14/19 05:25 Clopidogrel Bisulfate (Plavix) 75 mg DAILY GT 06/12/19 09:00 07/12/19 08:59 06/15/19 09:14 Dextrose (Dextrose 50%) 25 ml Q30M PRN IV Hypoglycemia 06/06/19 13:30 07/04/19 15:21 Dextrose (Dextrose 50%) 50 ml Q30M PRN IV hypoglycemia 06/06/19 13:30 07/04/19 15:29 Heparin Sodium (Porcine) (Heparin 5000 units/ml) 5,000 units EVERY 12 HOURS SUBQ 06/06/19 21:00 07/04/19 20:59 06/15/19 09:16 Lorazepam (Ativan 2mg/ml 1ml) 2 mg Q2H PRN IV For Anxiety 06/11/19 12:00 06/16/19 11:59 Metoprolol Tartrate (Lopressor) 25 mg EVERY 12 HOURS GT 06/09/19 21:00 07/04/19 20:59 06/15/19 09:14 Morphine Sulfate (Morphine Sulfate) 4 mg Q4H PRN IVP Severe Pain (Pain Scale 7-10) 06/11/19 12:00 06/16/19 11:59 Ondansetron HCl (Zofran) 4 mg Q6H PRN IVP Nausea & Vomiting 06/06/19 13:30 07/04/19 13:29 Pantoprazole (Protonix) 40 mg Q12HR IV 06/13/19 21:00 07/05/19 08:59 06/15/19 09:14 Piperacillin Sod/ Tazobactam Sod 3.375 gm/Sodium Chloride 110 ml @ 27.5 mls/hr EVERY 12 HOURS IVPB 06/13/19 21:00 06/18/19 21:59 06/15/19 09:17 Polyethylene Glycol (Miralax) 17 gm DAILYPRN PRN GT Constipation 06/09/19 14:30 07/04/19 13:29 Trimethoprim/ Sulfamethoxazole (Bactrim-DS) 20 ml EVERY 12 HOURS GT 06/10/19 12:00 06/17/19 11:59 06/15/19 09:14 Last 24 Hour Vital Signs Date Time Temp Pulse Resp B/P (MAP) Pulse Ox O2 Delivery O2 Flow Rate FiO2 06/15/19 12:00 30 06/15/19 12:00 97.7 68 20 149/80 (103) 97 06/15/19 12:00 Mechanical Ventilator 06/15/19 10:47 68 16 30 06/15/19 10:18 66 16 30 06/15/19 09:14 66 168/89 06/15/19 08:00 30 06/15/19 08:00 98.1 66 18 168/89 (115) 98 06/15/19 08:00 Mechanical Ventilator 06/15/19 07:31 66 16 30 06/15/19 07:25 65 06/15/19 05:30 74 16 30 06/15/19 05:06 173/87 06/15/19 04:00 30 06/15/19 04:00 98.1 70 16 163/97 (119) 100 06/15/19 04:00 Mechanical Ventilator 06/15/19 03:56 78 06/15/19 03:23 71 16 30 06/15/19 01:29 69 16 30 06/15/19 00:00 Mechanical Ventilator 06/15/19 00:00 98.1 69 16 159/85 (109) 100 06/15/19 00:00 30 06/14/19 23:49 67 06/14/19 23:30 72 16 30 06/14/19 21:19 71 16 30 06/14/19 21:13 173/84 06/14/19 21:13 73 173/84 06/14/19 20:24 73 16 97 Mechanical Ventilator 30 06/14/19 20:00 97.7 69 16 173/84 (113) 100 06/14/19 20:00 30 06/14/19 20:00 Mechanical Ventilator 06/14/19 19:51 71 06/14/19 19:30 73 16 30 06/14/19 17:03 62 16 30 06/14/19 16:00 98.2 69 16 167/89 (115) 100 06/14/19 16:00 30 06/14/19 16:00 Mechanical Ventilator 06/14/19 15:29 69 16 30 06/14/19 15:28 77 06/14/19 13:30 159/91 06/14/19 13:02 66 16 30 06/14/19 12:00 30 06/14/19 12:00 97.9 76 16 159/91 (113) 99 06/14/19 12:00 Mechanical Ventilator 06/14/19 11:30 79 06/14/19 11:03 79 16 30 06/14/19 09:01 88 16 30 06/14/19 08:44 70 170/96 06/14/19 08:00 Mechanical Ventilator 06/14/19 08:00 98.0 70 16 170/96 (120) 100 06/14/19 08:00 65 06/14/19 08:00 30 06/14/19 07:30 165/83 06/14/19 06:58 80 16 30 06/14/19 05:25 174/93 06/14/19 05:10 84 16 30 06/14/19 04:03 69 06/14/19 04:00 Mechanical Ventilator 06/14/19 04:00 98.1 81 16 174/93 (120) 100 06/14/19 04:00 30 06/14/19 02:51 79 18 30 06/14/19 01:30 84 16 30 06/14/19 00:00 98.4 78 16 155/76 (102) 96 06/14/19 00:00 Mechanical Ventilator 06/14/19 00:00 30 06/13/19 23:40 68 06/13/19 23:22 79 18 30 06/13/19 21:01 79 17 30 06/13/19 20:35 70 165/82 06/13/19 20:00 30 06/13/19 20:00 Mechanical Ventilator 06/13/19 20:00 99.5 68 16 156/79 (104) 98 06/13/19 19:42 81 16 30 06/13/19 19:22 71 06/13/19 17:18 72 16 30 06/13/19 16:00 98.1 69 16 148/59 (88) 98 06/13/19 16:00 65 06/13/19 16:00 Mechanical Ventilator 06/13/19 16:00 30 06/13/19 14:57 88 20 30 Intake and Output 06/14/19 06/15/19 19:00 07:00 Intake Total 815.0 ml 815.00 ml Output Total 800 ml 700 ml Balance 15.0 ml 115.00 ml Free Water 225 ml 225 ml IV Total 110.0 ml 110.00 ml Tube Feeding 480 ml 480 ml Output Urine Total 800 ml 700 ml # Bowel Movements 2 2 Labs Test 06/13/19 03:30 06/13/19 14:21 06/14/19 03:15 06/14/19 05:30 White Blood Count 8.3 K/UL (4.8-10.8) 8.0 K/UL (4.8-10.8) Red Blood Count 2.88 M/UL (4.20-5.40) 2.96 M/UL (4.20-5.40) Hemoglobin 8.6 G/DL (12.0-16.0) 8.8 G/DL (12.0-16.0) Hematocrit 29.1 % (37.0-47.0) 29.9 % (37.0-47.0) Mean Corpuscular Volume 101 FL (80-99) 101 FL (80-99) Mean Corpuscular Hemoglobin 29.8 PG (27.0-31.0) 29.7 PG (27.0-31.0) Mean Corpuscular Hemoglobin Concent 29.4 G/DL (32.0-36.0) 29.4 G/DL (32.0-36.0) Red Cell Distribution Width 23.2 % (11.6-14.8) 23.0 % (11.6-14.8) Platelet Count 163 K/UL (150-450) 165 K/UL (150-450) Mean Platelet Volume 7.7 FL (6.5-10.1) 7.5 FL (6.5-10.1) Neutrophils (%) (Auto) 60.6 % (45.0-75.0) 63.3 % (45.0-75.0) Lymphocytes (%) (Auto) 28.0 % (20.0-45.0) 26.1 % (20.0-45.0) Monocytes (%) (Auto) 5.4 % (1.0-10.0) 5.0 % (1.0-10.0) Eosinophils (%) (Auto) 4.8 % (0.0-3.0) 4.7 % (0.0-3.0) Basophils (%) (Auto) 1.1 % (0.0-2.0) 0.9 % (0.0-2.0) Sodium Level 151 MMOL/L (136-145) 149 MMOL/L (136-145) Potassium Level 5.9 MMOL/L (3.5-5.1) 4.9 MMOL/L (3.5-5.1) Chloride Level 116 MMOL/L (98-107) 112 MMOL/L (98-107) Carbon Dioxide Level 28 MMOL/L (21-32) 28 MMOL/L (21-32) Anion Gap 7 mmol/L (5-15) 10 mmol/L (5-15) Blood Urea Nitrogen 46 mg/dL (7-18) 45 mg/dL (7-18) Creatinine 1.5 MG/DL (0.55-1.30) 1.5 MG/DL (0.55-1.30) Estimat Glomerular Filtration Rate mL/min (>60) mL/min (>60) Glucose Level 225 MG/DL (74-106) 247 MG/DL (74-106) Calcium Level 9.1 MG/DL (8.5-10.1) 8.9 MG/DL (8.5-10.1) Urine Random Sodium 156 mmol/L (20-110) Uric Acid 5.1 MG/DL (2.6-7.2) Phosphorus Level 4.2 MG/DL (2.5-4.9) Magnesium Level 1.9 MG/DL (1.8-2.4) Total Bilirubin 0.5 MG/DL (0.2-1.0) Aspartate Amino Transf (AST/SGOT) 16 U/L (15-37) Alanine Aminotransferase (ALT/SGPT) 6 U/L (12-78) Alkaline Phosphatase 136 U/L (46-116) Ammonia 50 umol/L (11-32) C-Reactive Protein, Quantitative 4.5 mg/dL (0.00-0.90) Pro-B-Type Natriuretic Peptide > 90720 pg/mL (0-125) Total Protein 7.3 G/DL (6.4-8.2) Albumin 1.8 G/DL (3.4-5.0) Globulin 5.5 g/dL Albumin/Globulin Ratio 0.3 (1.0-2.7) Random Vancomycin Level 7.9 ug/mL Urine Eosinophils None seen (NONE SEEN) Test 06/15/19 00:00 06/15/19 03:15 Urine Eosinophils None seen (NONE SEEN) White Blood Count 8.0 K/UL (4.8-10.8) Red Blood Count 2.77 M/UL (4.20-5.40) Hemoglobin 8.3 G/DL (12.0-16.0) Hematocrit 28.0 % (37.0-47.0) Mean Corpuscular Volume 101 FL (80-99) Mean Corpuscular Hemoglobin 30.1 PG (27.0-31.0) Mean Corpuscular Hemoglobin Concent 29.8 G/DL (32.0-36.0) Red Cell Distribution Width 22.3 % (11.6-14.8) Platelet Count 159 K/UL (150-450) Mean Platelet Volume 8.2 FL (6.5-10.1) Neutrophils (%) (Auto) 64.6 % (45.0-75.0) Lymphocytes (%) (Auto) 26.4 % (20.0-45.0) Monocytes (%) (Auto) 4.3 % (1.0-10.0) Eosinophils (%) (Auto) 3.8 % (0.0-3.0) Basophils (%) (Auto) 0.9 % (0.0-2.0) Sodium Level 152 MMOL/L (136-145) Potassium Level 5.0 MMOL/L (3.5-5.1) Chloride Level 116 MMOL/L (98-107) Carbon Dioxide Level 26 MMOL/L (21-32) Anion Gap 10 mmol/L (5-15) Blood Urea Nitrogen 45 mg/dL (7-18) Creatinine 1.4 MG/DL (0.55-1.30) Estimat Glomerular Filtration Rate mL/min (>60) Glucose Level 267 MG/DL (74-106) Uric Acid 4.6 MG/DL (2.6-7.2) Calcium Level 9.0 MG/DL (8.5-10.1) Phosphorus Level 4.1 MG/DL (2.5-4.9) Magnesium Level 1.9 MG/DL (1.8-2.4) Total Bilirubin 0.5 MG/DL (0.2-1.0) Aspartate Amino Transf (AST/SGOT) 16 U/L (15-37) Alanine Aminotransferase (ALT/SGPT) 8 U/L (12-78) Alkaline Phosphatase 135 U/L (46-116) C-Reactive Protein, Quantitative 3.4 mg/dL (0.00-0.90) Pro-B-Type Natriuretic Peptide > 36400 pg/mL (0-125) Total Protein 6.8 G/DL (6.4-8.2) Albumin 1.9 G/DL (3.4-5.0) Globulin 4.9 g/dL Albumin/Globulin Ratio 0.4 (1.0-2.7) Height (Feet): 5 Height (Inches): 5.00 Weight (Pounds): 205 Objective HEAD AND NECK: No JVD. LUNGS: Decreased breath sounds. ++ Status post tracheostomy. CARDIOVASCULAR: Shows regular S1 and S2 with no gallop. ABDOMEN: Status post G-tube. EXTREMITIES: Have anasarca. Steven Norton MD Jun 15, 2019 13:46
[2019-06-15 13:51] VITALS: BP 149/80
--- NOTE | 2019-06-15 14:20 | NUR ---
NURSE NOTES: REPORT GIVEN TO JANY BURNETT ACLS AND HANNAH LUCAS STAFF OF [facility]. PLACED A TELEPHONE CALL TO [facility] AND REPORT GIVEN TO VIV BURNETT IN CHARGE.PT LEFT THE HOSPITAL.
--- NOTE | 2019-06-16 10:03 | Discharge Summary ---
Discharge Summary Discharge Summary _ DATE OF ADMISSION: 06/04/2019 DATE OF DISCHARGE: 06/15/2019 DISCHARGED BY: Dr Keating REASON FOR ADMISSION: 89 years old female with past medical history of ventilator dependent respiratory failure, tracheostomy status, dysphagia, G-tube, history of CVA with right hemiplegia, renal insufficiency, anemia of chronic kidney disease, presented to emergency department from the [facility] due to respiratory distress. Patient was treated for sepsis about 2 weeks ago. Patient initially presented with hypotension and altered level of consciousness. Patient received fluid bolus with improvement in mentation. Laboratory work-up revealed leukocytosis WBC 17.7 anemia hemoglobin 9.2, hematocrit 31.1 platelet count 211. BUN 59, creatinine 1.3. Lactic acid 3.8. Troponin 0.141. EKG revealed sinus rhythm, no acute ischemic changes. Pro BNP 95795. Albumin 2.0. Urinalysis revealed no evidence of urinary tract infection , +4 protein. Chest x-ray demonstrated bilateral mixed interstitial and alveolar airspace opacities. Findings possibly related to pulmonary edema and/or multifocal pneumonia. Patient pancultured and started on empiric antibiotics. Patient admitted to direct observational unit for further management. CONSULTANTS: carbon sequestration plant engineer Dr. Rojo pulmonary Dr. Springer ID specialist Dr. Baer GI specialist Dr. Gentile senior portfolio manager Dr. Spivey loss prevention auditor/oncologist Dr. Norton [facility] COURSE: Patient admitted to direct observational unit. Ventilator support, pulmonary toilet and tracheostomy care provided. patient was followed up with ABG, and ABG was stable on current settings. Patient was followed-up with chest x-ray. Antibiotics provided as per ID recommendation. Blood culture initially revealed 1 out of 4 Bacillus species, repeated blood cultures were negative. Sputum culture revealed Stenotrophomonas. Initial gram-positive bacteremia was likely contaminant , as per ID specialist recommendation. Leukocytosis and low-grade fever resolved. Patient completed antibiotics while in the hospital. Perioperative Assistant followed. Echocardiogram demonstrated preserved ejection fraction of 55% with no evidence of wall motion abnormality and mild left ventricular hypertrophy. Mitral inflow velocity indicated possible pseudonormalization pattern, implying significant left ventricular diastolic dysfunction grade 2. Right ventricular systolic pressure of 69 consistent with severe pulmonary hypertension. Diuresis provided with close monitoring of volumes and cardiorenal parameters. Blood pressure was managed with beta-jose and Lasix. Initially started atrial flutter spontaneously terminated. Minimally elevated troponin with flat levels was likely due to troponin leak, as per carbon sequestration plant engineer, possibly due to severe anemia. No chest pain reported by patient. Antiplatelet therapy with Plavix and beta blockage continued. Lipid panel was stable. Patient demonstrated paroxysmal atrial flutter and then spontaneously converted to sinus rhythm. DVT prophylaxis provided. Strict aspiration precautions were maintained. Tube feeding continued. Mammal Control Agent seen and evaluated patient due to acute kidney injury , since creatinine was trending up. Per senior portfolio manager patient had acute on chronic renal failure. Etiology of acute renal failure likely due to sepsis and /or medications? Vancomycin, Bactrim, Lasix. Lasix was stopped. Antihypertensive regimen was further optimized by senior portfolio manager to keep blood pressure under control. Renal parameters and electrolytes were closely monitored along with intake and output. Electrolytes corrected as needed , and nephrotoxic's were avoided. Blood sugar was managed with sliding scale of insulin. Hemoglobin and hematocrit were closely monitored with goal to keep hemoglobin above 7. CEA was within normal limits. Stool for occult blood was positive. Patient subsequently undergone on 06/09 EGD which revealed gastritis. Follow-up biopsy results revealed H. pylori gastritis. Treatment for H. pylori gastritis will be initiated at the [facility]. Patient undergone transfusion of 1 unit of packed red blood cells while in the hospital. Prior to discharge hemoglobin 8.3, hematocrit 28. Bowel regimen instituted. GI prophylaxis provided. Supportive care provided. Pain management was addressed as needed. Patient clinically stabilized and was ready for transfer back to [facility] for continuation of care. FINAL DIAGNOSES: Acute on chronic respiratory failure Sepsis, likely secondary to pneumonia Healthcare associated pneumonia Acute metabolic encephalopathy - resolved Acute kidney injury on chronic renal disease Troponin leak Congestive heart failure, diastolic, acute on chronic CAD with inferolateral T-wave inversion Severe pulmonary hypertension Severe aortic stenosis Moderate mitral regurgitation Dysphagia , feeding by G-tube History of CVA with right hemiplegia Diabetes mellitus Hypertensive heart disease Anemia of chronic kidney disease GI bleeding Status post EGD H. pylori gastritis Electrolyte abnormalities: hyperkalemia, hypernatremia Acute on chronic renal failure DISCHARGE MEDICATIONS: See Medication Reconciliation list. DISCHARGE INSTRUCTIONS: Patient was discharged to the [facility] facility. Follow up with medical doctor at the facility. Stacy Dsouza NP Jun 16, 2019 10:03
--- NOTE | 2019-06-17 12:20 | Cardiology Report ---
APPROVED REPORT EKG Measurement Heart [id number] MS [id number] Sinus rhythm with 1st degree AV block Possible Left atrial enlargement Left axis deviation Left ventricular hypertrophy with QRS widening T wave abnormality, consider inferior ischemia T wave abnormality, consider anterolateral ischemia Prolonged QT Abnormal ECG
--- NOTE | 2019-06-17 12:29 | Cardiology Report ---
APPROVED REPORT EKG Measurement Heart [id number] Unusual P axis, possible ectopic atrial rhythm Left axis deviation Incomplete right bundle branch block Voltage criteria for left ventricular hypertrophy T wave abnormality, consider inferior ischemia T wave abnormality, consider anterolateral ischemia Prolonged QT Abnormal ECG
== END 2019-06-15 14:28 | DRG 720 ==
LOC: EDBD 09:45 → EDBEDREQ 09:54 → EMR 10:27 → ICU 10:56 → EDBEDREQ 13:31 → 2W 06-06 12:55
PROC: 5A1955Z Respiratory Ventilation, Greater than 96 Consecutive Hours (ICD-10-PCS; principal; 2019-06-04)
PROC: 0DB78ZX Excision of Stomach, Pylorus, Via Natural or Artificial Opening Endoscopic, Diagnostic (ICD-10-PCS; 2019-06-09)
DX: A41.9 Sepsis, unspecified organism (principal); J18.9 Pneumonia, unspecified organism; J96.20 Acute and chronic respiratory failure, unspecified whether with hypoxia or hypercapnia; I21.4 Non-ST elevation (NSTEMI) myocardial infarction; G93.41 Metabolic encephalopathy; I69.351 Hemiplegia and hemiparesis following cerebral infarction affecting right dominant side; I13.0 Hypertensive heart and chronic kidney disease with heart failure and stage 1 through stage 4 chronic kidney disease, or unspecified chronic kidney disease; N18.4 Chronic kidney disease, stage 4 (severe); N17.9 Acute kidney failure, unspecified; N39.0 Urinary tract infection, site not specified; E46 Unspecified protein-calorie malnutrition; Z93.0 Tracheostomy status; Z68.34 Body mass index [BMI] 34.0-34.9, adult; R65.20 Severe sepsis without septic shock; I48.92 Unspecified atrial flutter; I50.33 Acute on chronic diastolic (congestive) heart failure; Z93.1 Gastrostomy status; D63.1 Anemia in chronic kidney disease; I25.10 Atherosclerotic heart disease of native coronary artery without angina pectoris; E11.22 Type 2 diabetes mellitus with diabetic chronic kidney disease; R13.10 Dysphagia, unspecified; I95.9 Hypotension, unspecified; E87.5 Hyperkalemia; K29.71 Gastritis, unspecified, with bleeding; E87.0 Hyperosmolality and hypernatremia; E87.6 Hypokalemia; I27.20 Pulmonary hypertension, unspecified
CPT/HCPCS: 36415; 36600; 71045; 80048; 80053; 80069; 80202; 81003; 82140; 82270; 82378; 82550; 82728; 82803; 83605; 83690; 83735; 83880; 84100; 84300; 84484; 84550; 85007; 85025; 85610; 85730; 86140; 86850; 86900; 86901; 86920; 87040; 87070; 87081; 87181; 87205; 89050; 93005; 93306; 93970; 94002; 94003; 94150; 94640; 94664; 96361; 96365; 96367; 97803; 99291; 99292; J7620; J8499

== ENCOUNTER 2019-06-21 12:36 | Inpatient (IN) | payer MEDICARE, OTHER ==
[~2019-06-21] VITALS: Ht 160 cm; Wt 95.7 kg
[~2019-06-21 12:36] MED LIST changes: +FUROSEMIDE20 M1 GT; +LANSOPRAZOLE30 MG GT; +NOVOLOG100 UNIT/4
[2019-06-21] MEDS ORDERED: Lidocaine 1% Plain 30 ml INJ ONE (13:45)
[2019-06-21] MEDS ORDERED: Heparin1,000 units/500ml Premix(Conc:2 units/ml) IV ONE (13:45)
[2019-06-21 14:41] LABS: HEMATOCRIT 20.9 % (37.0-47.0); MEAN CORPUSCULAR VOLUME 100 FL (80-99); PLATELET COUNT 174 K/UL (150-450); RED BLOOD COUNT 2.08 M/UL (4.20-5.40); RED CELL DISTRIBUTION WIDTH 21.1 % (11.6-14.8); WHITE BLOOD COUNT 8.9 K/UL (4.8-10.8)
[2019-06-21 14:42] LABS: HEMOGLOBIN 6.4 G/DL (12.0-16.0)
[2019-06-21 14:55] LABS: ANION GAP 12 mmol/L (5-15); BLOOD UREA NITROGEN 65 mg/dL (7-18); CALCIUM 9.2 MG/DL (8.5-10.1); CARBON DIOXIDE 26 MMOL/L (21-32); CHLORIDE 112 MMOL/L (98-107); CREATININE 1.1 MG/DL (0.55-1.30); POTASSIUM 4.9 MMOL/L (3.5-5.1); SODIUM 149 MMOL/L (136-145)
[2019-06-21 14:57] LABS: ALANINE AMINOTRANSFERASE 8 U/L (12-78); ALBUMIN/GLOBULIN RATIO 0.4 (1.0-2.7); ALKALINE PHOSPHATASE 81 U/L (46-116); ASPARTATE AMINO TRANSFERASE 16 U/L (15-37); BILIRUBIN,TOTAL 0.4 MG/DL (0.2-1.0)
[2019-06-21 15:09] VITALS: BP 154/96
[2019-06-21] MEDS: D5 1/2NS 1,000 ML IV SCH (15:46)
[2019-06-21] MEDS ORDERED: LORazepam Inj 2mg/ml 1ml IV PRN (16:00)
[2019-06-21] MEDS ORDERED: Morphine Sulfate 2mg/ml Inj(IV/IM USE ONLY) IVP PRN (16:00)
[2019-06-21 16:06] LABS: APPEARANCE,URINE CLEAR; BILIRUBIN, URINE NEGATIVE (NEGATIVE); COLOR,URINE PALE YELLOW; GLUCOSE, URINE (UA) NEGATIVE (NEGATIVE); KETONES,URINE NEGATIVE (NEGATIVE); LEUKOCYTE ESTERASE ,URINE NEGATIVE (NEGATIVE); NITRITE,URINE NEGATIVE (NEGATIVE); PH,URINE 8 (4.5-8.0); PROTEIN,URINE 3+ (NEGATIVE); UROBILINOGEN,URINE 1 MG/DL (0.0-1.0)
[2019-06-21 16:24] VITALS: BP 167/74
--- NOTE | 2019-06-21 16:53 | Emergency Room Report ---
History of Present Illness General Chief Complaint: Abnormal Labs Source: Medical Record, EMS Present Illness HPI 79-year-old female presents ED for evaluation. [facility] Here for abnormal labs. Had reportedly low hemoglobin. Patient is nonverbal. Has trach/vent. Has G-tube. No signs of distress upon arrival. No reported nausea or vomiting. No reported blood in stool. No other aggravating relieving factors. No other associated symptoms Allergies: Coded Allergies: No Known Allergies (Unverified , 06/21/19) Patient History Past Medical History: HTN, CVA/TIA, other - gastrostomy Past Surgical History: none Pertinent Family History: none Social History: Denies: smoking, alcohol use, drug use Now: No Immunizations: UTD Reviewed Nursing Documentation: PMH: Agreed; PSxH: Agreed Nursing Documentation-PMH Past Medical History: No History, Except For Hx Cardiac Problems: Yes - Hypertension Hx Hypertension: Yes Hx Diabetes: Yes Hx Cancer: No Hx Gastrointestinal Problems: Yes - GASTROSTOMY Hx Neurological Problems: Yes - CVA, hemiplegia, Hemiparesis, encephalopathy Review of Systems All Other Systems: limited Physical Exam Vital Signs Date Time Temp Pulse Resp B/P (MAP) Pulse Ox O2 Delivery O2 Flow Rate FiO2 06/21/19 12:37 98.8 88 20 154/96 (115) 98 Mechanical Ventilator 06/21/19 13:03 40 Sp02 EP Interpretation: reviewed, normal General Appearance: obese Head: normocephalic Eyes: bilateral eye normal inspection, bilateral eye PERRL ENT: hearing grossly normal, normal pharynx, no angioedema, normal voice Neck: tracheotomy Respiratory: chest non-tender, lungs clear, normal breath sounds, speaking full sentences Cardiovascular #1: regular rate, rhythm, no edema Gastrointestinal: normal bowel sounds, non tender, soft, non-distended, no guarding, no rebound Rectal: deferred Genitourinary: no CVA tenderness Musculoskeletal: normal inspection Neurologic: other - nonverbal Psychiatric: other - nonverbal Skin: other - see nursing notes Lymphatic: normal inspection Medical Decision Making Diagnostic Impression: Primary Impression: Anemia Qualified Codes: D64.9 - Anemia, unspecified Additional Impression: Chronic respiratory failure Qualified Codes: J96.10 - Chronic respiratory failure, unspecified whether with hypoxia or hypercapnia ER Course Hospital Course 79 yo F presents to ED for low hb/hct. Differential diagnoses include: anemia requiring transfusion, microcytic anemia , macrocytic anemia, heavy blood loss Clinical course Patient placed on stretcher. After initial history and physical I ordered labs , IVFs Labs- hemoglobin/hematocrit 6.4/20.9. Na 149, no leukocytosis PRBCs ordered. Discussed with Dr Keating and he agreed to admit patient to his service for further care and support Diagnosis - anemia, chronic respiratory failure Admitted to SDU in serious condition Labs Test 06/21/19 14:20 06/21/19 15:30 White Blood Count 8.9 K/UL (4.8-10.8) Red Blood Count 2.08 M/UL (4.20-5.40) Hemoglobin 6.4 G/DL (12.0-16.0) Hematocrit 20.9 % (37.0-47.0) Mean Corpuscular Volume 100 FL (80-99) Mean Corpuscular Hemoglobin 30.6 PG (27.0-31.0) Mean Corpuscular Hemoglobin Concent 30.5 G/DL (32.0-36.0) Red Cell Distribution Width 21.1 % (11.6-14.8) Platelet Count 174 K/UL (150-450) Mean Platelet Volume 7.7 FL (6.5-10.1) Neutrophils (%) (Auto) % (45.0-75.0) Lymphocytes (%) (Auto) % (20.0-45.0) Monocytes (%) (Auto) % (1.0-10.0) Eosinophils (%) (Auto) % (0.0-3.0) Basophils (%) (Auto) % (0.0-2.0) Differential Total Cells Counted 100 Neutrophils % (Manual) 62 % (45-75) Lymphocytes % (Manual) 31 % (20-45) Monocytes % (Manual) 4 % (1-10) Eosinophils % (Manual) 1 % (0-3) Basophils % (Manual) 2 % (0-2) Band Neutrophils 0 % (0-8) Platelet Estimate Adequate Platelet Morphology Normal Polychromasia 1+ Hypochromasia 3+ Anisocytosis 2+ Macrocytosis 1+ Prothrombin Time 10.8 SEC (9.30-11.50) Prothromb Time International Ratio 1.0 (0.9-1.1) Activated Partial Thromboplast Time 28 SEC (23-33) Sodium Level 149 MMOL/L (136-145) Potassium Level 4.9 MMOL/L (3.5-5.1) Chloride Level 112 MMOL/L (98-107) Carbon Dioxide Level 26 MMOL/L (21-32) Anion Gap 12 mmol/L (5-15) Blood Urea Nitrogen 65 mg/dL (7-18) Creatinine 1.1 MG/DL (0.55-1.30) Estimat Glomerular Filtration Rate mL/min (>60) Glucose Level 102 MG/DL (74-106) Calcium Level 9.2 MG/DL (8.5-10.1) Total Bilirubin 0.4 MG/DL (0.2-1.0) Aspartate Amino Transf (AST/SGOT) 16 U/L (15-37) Alanine Aminotransferase (ALT/SGPT) 8 U/L (12-78) Alkaline Phosphatase 81 U/L (46-116) Total Protein 7.1 G/DL (6.4-8.2) Albumin 2.0 G/DL (3.4-5.0) Globulin 5.1 g/dL Albumin/Globulin Ratio 0.4 (1.0-2.7) Lipase 133 U/L (73-393) Urine Color Pale yellow Urine Appearance Clear Urine pH 8 (4.5-8.0) Urine Specific [place] 1.010 (1.005-1.035) Urine Protein 3+ (NEGATIVE) Urine Glucose (UA) Negative (NEGATIVE) Urine Ketones Negative (NEGATIVE) Urine Blood 3+ (NEGATIVE) Urine Nitrite Negative (NEGATIVE) Urine Bilirubin Negative (NEGATIVE) Urine Urobilinogen 1 MG/DL (0.0-1.0) Urine Leukocyte Esterase Negative (NEGATIVE) Urine RBC 2-4 /HPF (0 - 2) Urine WBC 0-2 /HPF (0 - 2) Urine Squamous Epithelial Cells Few /LPF (NONE/OCC) Urine Bacteria Few /HPF (NONE) Last Vital Signs Date Time Temp Pulse Resp B/P (MAP) Pulse Ox O2 Delivery O2 Flow Rate FiO2 06/21/19 16:24 98.9 71 16 167/74 100 Mechanical Ventilator 40 Status: improved Disposition: ADMITTED INPATIENT Condition: Serious Referrals: Jama Keating DO (PCP) Gabe Person MD Jun 21, 2019 16:53
[2019-06-21 18:00] VITALS: BP 153/90
[2019-06-21 20:00] VITALS: BP 162/83
[2019-06-21] MEDS: Dyna-Hex 2% Top Sol 2oz TOPIC SCH (20:00)
[2019-06-21] MEDS: Heparin 5000 units/ml inj SUBQ SCH (21:00)
[2019-06-22] VITALS: BP 154/88
[2019-06-22 04:00] VITALS: BP 170/91
[2019-06-22 04:55] LABS: BASOPHILS % (AUTO) 1.2 % (0.0-2.0); EOSINOPHILS % (AUTO) 4.6 % (0.0-3.0); HEMATOCRIT 28.6 % (37.0-47.0); HEMOGLOBIN 8.9 G/DL (12.0-16.0); LYMPHOCYTES % (AUTO) 30.6 % (20.0-45.0); MEAN CORPUSCULAR VOLUME 99 FL (80-99); MONOCYTES % (AUTO) 5.9 % (1.0-10.0); NEUTROPHILS % (AUTO) 57.8 % (45.0-75.0); PLATELET COUNT 164 K/UL (150-450); RED CELL DISTRIBUTION WIDTH 19.3 % (11.6-14.8); WHITE BLOOD COUNT 7.2 K/UL (4.8-10.8)
[2019-06-22 05:24] LABS: ALANINE AMINOTRANSFERASE 10 U/L (12-78); ALBUMIN 2.1 G/DL (3.4-5.0); ALBUMIN/GLOBULIN RATIO 0.4 (1.0-2.7); ALKALINE PHOSPHATASE 67 U/L (46-116); ANION GAP 13 mmol/L (5-15); ASPARTATE AMINO TRANSFERASE 23 U/L (15-37); BILIRUBIN,TOTAL 0.5 MG/DL (0.2-1.0); BLOOD UREA NITROGEN 57 mg/dL (7-18); CALCIUM 9.2 MG/DL (8.5-10.1); CARBON DIOXIDE 21 MMOL/L (21-32); CHLORIDE 114 MMOL/L (98-107); CREATININE 0.9 MG/DL (0.55-1.30); POTASSIUM 4.9 MMOL/L (3.5-5.1); SODIUM 148 MMOL/L (136-145)
[2019-06-22 08:00] VITALS: BP 152/95
[2019-06-22] MEDS: Heparin 5000 units/ml inj SUBQ SCH ×2 (09:00→21:00)
--- NOTE | 2019-06-22 10:40 | GI Initial Consult Note ---
History of Present Illness General Date patient seen: Jun 22, 2019 Time patient seen: 10:34 Reason for Hospitalization: Abnormal Labs Referring physician: SOMMER ALEJANDRA Reason for Consultation: ANEMIA Present Illness HPI 79-year-old female presents ED for evaluation. Brought [facility] by EMS [facility]. Here for abnormal labs. Had reportedly low hemoglobin. Patient is nonverbal. Has trach/vent. Has G-tube. No signs of distress upon arrival. No reported nausea or vomiting. No reported blood in stool. No other aggravating relieving factors. No other associated symptoms GI consulted for anemia. ROS limited, all information obtained from medical record. Patient seen, no apparent distress. The patient presented with a low hemoglobin of 6.4, was transfused with 2 units of blood in the emergency room which hemoglobin is 8.4 at this time. The patient had a recent history of upper endoscopy on June 09, 2019 noted with gastritis, otherwise normal there is no obvious bleeding noted. Home Meds Reported Medications Furosemide* (LASIX*) 20 Mg Tablet, 20 MG ORAL DAILY, TAB 06/04/19 Lansoprazole* (LANSOPRAZOLE*) 30 Mg Capsule.dr, 30 MG GT DAILY, CAP 06/04/19 Acetaminophen 160MG/5ML* (ACETAMINOPHEN*) 160 Mg/5 Ml Elixir, 20 ML GT Q4HR PRN for Mild Pain/Temp > 100.5, ML 05/17/19 Docusate Sodium (Docusate Sodium) 50 Mg/5 Ml Liquid, 100 MG GT DAILY, EA 05/17/19 Multivitamin Liquid* (MULTI-DELYN*) 237 Ml Liquid, 15 ML GT DAILY, ML 05/17/19 Metoprolol Tartrate* (METOPROLOL TARTRATE*) 25 Mg Tablet, 25 MG GT EVERY 12 HOURS, TAB 05/17/19 Insulin Aspart (NOVOLOG) 100 Unit/1 Ml Cartridge, 100 UNIT SQ 05/17/19 Epoetin Bandar (EPOGEN) 20,000 Unit/2 Ml Vial, 71374 UNIT SUBQ 3XW, VIAL 05/17/19 Insulin Glargine (LANTUS) 100 Unit/1 Ml Insuln.pen, 20 SUBQ BEDTIME, #1 EA 0 Refills 04/12/19 Na Phos,M-B/Na Phos,Di-Ba* (FLEET ENEMA*) 133 Ml Enema, 133 ML RECTAL DAILY, ML 0 Refills 04/12/19 Discontinued Reported Medications Ascorbic Acid* (VITAMIN C*) 500 Mg Tablet, 500 MG GT DAILY, #30 TAB 0 Refills 06/04/19 Clopidogrel Bisulfate* (PLAVIX*) 75 Mg Tablet, 75 MG GT DAILY, TAB 05/17/19 Med list reviewed/reconciled: Yes Allergies: Coded Allergies: No Known Allergies (Unverified , 06/21/19) Patient History Limited by: medical condition History Provided By: Medical Record PMH Narrative Past Medical History: HTN, CVA/TIA, other - gastrostomy Past Surgical History: none Pertinent Family History: none Social History: Denies: smoking, alcohol use, drug use Now: No Immunizations: UTD Reviewed Nursing Documentation: PMH: Agreed; PSxH: Agreed Nursing Documentation-PM Past Medical History: No History, Except For Hx Cardiac Problems: Yes - Hypertension Hx Hypertension: Yes Hx Diabetes: Yes Hx Cancer: No Hx Gastrointestinal Problems: Yes - GASTROSTOMY Hx Neurological Problems: Yes - CVA, hemiplegia, Hemiparesis, encephalopathy Social History: Denies: smoking, alcohol use, drug use, other Review of Systems All Other Systems: limited Physical Exam Vital Signs Date Time Temp Pulse Resp B/P (MAP) Pulse Ox O2 Delivery O2 Flow Rate FiO2 06/21/19 12:37 98.8 88 20 154/96 (115) 98 Mechanical Ventilator 06/21/19 13:03 40 Sp02 EP Interpretation: reviewed, normal Labs Laboratory Tests Test 06/21/19 14:20 06/21/19 15:30 06/22/19 03:20 White Blood Count 8.9 K/UL (4.8-10.8) 7.2 K/UL (4.8-10.8) Red Blood Count 2.08 M/UL (4.20-5.40) L 2.90 M/UL (4.20-5.40) L Hemoglobin 6.4 G/DL (12.0-16.0) *L 8.9 G/DL (12.0-16.0) #L Hematocrit 20.9 % (37.0-47.0) L 28.6 % (37.0-47.0) #L Mean Corpuscular Volume 100 FL (80-99) H 99 FL (80-99) Mean Corpuscular Hemoglobin 30.6 PG (27.0-31.0) 30.7 PG (27.0-31.0) Mean Corpuscular Hemoglobin Concent 30.5 G/DL (32.0-36.0) L 31.1 G/DL (32.0-36.0) L Red Cell Distribution Width 21.1 % (11.6-14.8) H 19.3 % (11.6-14.8) H Platelet Count 174 K/UL (150-450) 164 K/UL (150-450) Mean Platelet Volume 7.7 FL (6.5-10.1) 8.6 FL (6.5-10.1) Neutrophils (%) (Auto) % (45.0-75.0) 57.8 % (45.0-75.0) Lymphocytes (%) (Auto) % (20.0-45.0) 30.6 % (20.0-45.0) Monocytes (%) (Auto) % (1.0-10.0) 5.9 % (1.0-10.0) Eosinophils (%) (Auto) % (0.0-3.0) 4.6 % (0.0-3.0) H Basophils (%) (Auto) % (0.0-2.0) 1.2 % (0.0-2.0) Differential Total Cells Counted 100 Neutrophils % (Manual) 62 % (45-75) Lymphocytes % (Manual) 31 % (20-45) Monocytes % (Manual) 4 % (1-10) Eosinophils % (Manual) 1 % (0-3) Basophils % (Manual) 2 % (0-2) Band Neutrophils 0 % (0-8) Platelet Estimate Adequate Platelet Morphology Normal Polychromasia 1+ Hypochromasia 3+ Anisocytosis 2+ Macrocytosis 1+ Prothrombin Time 10.8 SEC (9.30-11.50) Prothromb Time International Ratio 1.0 (0.9-1.1) Activated Partial Thromboplast Time 28 SEC (23-33) Sodium Level 149 MMOL/L (136-145) H 148 MMOL/L (136-145) H Potassium Level 4.9 MMOL/L (3.5-5.1) 4.9 MMOL/L (3.5-5.1) Chloride Level 112 MMOL/L (98-107) H 114 MMOL/L (98-107) H Carbon Dioxide Level 26 MMOL/L (21-32) 21 MMOL/L (21-32) Anion Gap 12 mmol/L (5-15) 13 mmol/L (5-15) Blood Urea Nitrogen 65 mg/dL (7-18) H 57 mg/dL (7-18) H Creatinine 1.1 MG/DL (0.55-1.30) 0.9 MG/DL (0.55-1.30) Estimat Glomerular Filtration Rate mL/min (>60) mL/min (>60) Glucose Level 102 MG/DL (74-106) 76 MG/DL (74-106) Calcium Level 9.2 MG/DL (8.5-10.1) 9.2 MG/DL (8.5-10.1) Total Bilirubin 0.4 MG/DL (0.2-1.0) 0.5 MG/DL (0.2-1.0) Aspartate Amino Transf (AST/SGOT) 16 U/L (15-37) 23 U/L (15-37) Alanine Aminotransferase (ALT/SGPT) 8 U/L (12-78) L 10 U/L (12-78) L Alkaline Phosphatase 81 U/L (46-116) 67 U/L (46-116) Total Protein 7.1 G/DL (6.4-8.2) 6.8 G/DL (6.4-8.2) Albumin 2.0 G/DL (3.4-5.0) L 2.1 G/DL (3.4-5.0) L Globulin 5.1 g/dL 4.7 g/dL Albumin/Globulin Ratio 0.4 (1.0-2.7) L 0.4 (1.0-2.7) L Lipase 133 U/L (73-393) Urine Color Pale yellow Urine Appearance Clear Urine pH 8 (4.5-8.0) Urine Specific [place] 1.010 (1.005-1.035) Urine Protein 3+ (NEGATIVE) H Urine Glucose (UA) Negative (NEGATIVE) Urine Ketones Negative (NEGATIVE) Urine Blood 3+ (NEGATIVE) H Urine Nitrite Negative (NEGATIVE) Urine Bilirubin Negative (NEGATIVE) Urine Urobilinogen 1 MG/DL (0.0-1.0) H Urine Leukocyte Esterase Negative (NEGATIVE) Urine RBC 2-4 /HPF (0 - 2) H Urine WBC 0-2 /HPF (0 - 2) Urine Squamous Epithelial Cells Few /LPF (NONE/OCC) Urine Bacteria Few /HPF (NONE) Ferritin 222 NG/ML (8-388) General Appearance: no apparent distress Head: normocephalic EENT: PERRL/EOMI, normal ENT inspection Neck: supple Respiratory: normal breath sounds, no respiratory distress Cardiovascular: normal rate Gastrointestinal: normal inspection, non tender, soft, normal bowel sounds, non -distended Rectal: deferred Genitourinary: no CVA tenderness Neurologic: normal inspection Skin: normal inspection, normal color, no rash, warm/dry, palpation normal, well hydrated Lymphatic: normal inspection, no adenopathy Current Medications Current Medications Medications (Trade) Dose Ordered Sig/Kenisha Route PRN Reason Start Time Stop Time Status Last Admin Dose Admin Chlorhexidine Gluconate (Izzy-Hex 2%) 1 applic DAILY@1999 TOPIC 06/21/19 20:00 07/21/19 19:59 Clonidine HCl (Catapres Tab) 0.1 mg Q6H PRN GT SBP >160 06/22/19 05:00 07/22/19 04:59 06/22/19 05:29 Dextrose (Dextrose 50%) 25 ml Q30M PRN IV Hypoglycemia 06/21/19 16:00 07/21/19 15:59 Dextrose (Dextrose 50%) 50 ml Q30M PRN IV Hypoglycemia 06/21/19 16:00 07/21/19 15:59 Dextrose/Sodium Chloride 1,000 ml @ 50 mls/hr Q20H IV 06/21/19 15:46 07/21/19 15:45 06/21/19 15:46 Heparin Sodium (Porcine) (Heparin 5000 units/ml) 5,000 units EVERY 12 HOURS SUBQ 06/21/19 21:00 07/21/19 20:59 Lorazepam (Ativan 2mg/ml 1ml) 0.5 mg Q4H PRN IV For Anxiety 06/21/19 16:00 06/28/19 15:59 Morphine Sulfate (Morphine Sulfate) 1 mg Q4H PRN IVP For Pain 06/21/19 16:00 06/28/19 15:59 Ondansetron HCl (Zofran) 4 mg Q6H PRN IVP Nausea & Vomiting 06/21/19 16:00 07/21/19 15:59 GI: Plan Problems: (1) G tube feedings (2) Anemia in chronic kidney disease (CKD) (3) GI bleed (4) Diabetes mellitus Plan Given recent normal endoscopy 06/09/19, we will hold GI procedures at this time. Maintain n.p.o. plus IV fluids anemia work up OB stool r/o GI bleed monitor H&H, prn transfusions bowel regimen ppi fu labs Discussed with Dr. Gentile. Thank you for this patient referral, we will follow. The patient was seen and examined at bedside and all new and available data was reviewed in the patients chart. I agree with the above findings, impression and plan. (Patient seen earlier today. Signature stamp does not reflect patient encounter time.). - MD Melissa Palencia AnhHardeepBry HUSSAIN Jun 22, 2019 10:40
--- NOTE | 2019-06-22 11:01 | Pulmonolgy Critical Care Note ---
Critical Care - Asmt/Plan Problems: (1) Anemia in chronic kidney disease (CKD) (2) GI bleed (3) ATN (acute tubular necrosis) (4) 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 (5) CAD (coronary artery disease) (6) History of CVA (cerebrovascular accident) (7) Diabetes mellitus (8) Acute metabolic encephalopathy Respiratory: monitor respiratory rate Cardiac: continue pressors, continue to monitor HR/BP Renal: F/U I&O, keep IV fluid Infectious Disease: check cultures, continue antibiotics Gastrointestinal: continue feedings/current rate, abdominal imaging Endocrine: monitor blood sugar Hematologic: monitor H/H, transfuse if hgb<8.5 Neurologic: PRN Ativan, PRN Morphine, keep patient comfortable Prophylaxis: Protonix Disposition: keep in ICU Time Spent (Minutes): 40 Notes Reviewed: editor producer, renal Discussed with: nurses, consultants, machine adjuster leader case trimcustodial services manager - Objective Last 24 Hour Vital Signs Date Time Temp Pulse Resp B/P (MAP) Pulse Ox O2 Delivery O2 Flow Rate FiO2 06/22/19 09:00 Mechanical Ventilator 06/22/19 08:47 62 16 40 06/22/19 08:00 97.9 69 18 152/95 (114) 100 06/22/19 08:00 40 06/22/19 07:18 63 16 40 06/22/19 05:29 170/90 06/22/19 05:02 71 16 40 06/22/19 04:00 40 06/22/19 04:00 98.0 88 17 170/91 (117) 100 06/22/19 03:31 65 06/22/19 02:33 68 16 40 06/22/19 00:44 79 16 40 06/22/19 00:00 97.5 69 17 154/88 (110) 100 06/21/19 23:27 69 06/21/19 22:49 63 16 40 06/21/19 21:00 Mechanical Ventilator 06/21/19 20:38 70 16 40 06/21/19 20:00 40 06/21/19 20:00 96.8 68 16 162/83 (109) 100 06/21/19 19:47 71 06/21/19 19:18 78 18 40 06/21/19 18:47 Mechanical Ventilator 06/21/19 18:00 97.7 70 14 149/74 100 Mechanical Ventilator 40 06/21/19 18:00 97.6 75 16 153/90 (111) 100 06/21/19 17:25 98.3 67 16 06/21/19 17:24 70 15 40 06/21/19 17:20 98.4 70 16 06/21/19 17:15 98.1 69 16 06/21/19 16:24 98.9 71 16 167/74 100 Mechanical Ventilator 40 06/21/19 15:28 81 16 40 06/21/19 15:09 98.8 75 17 154/96 100 Mechanical Ventilator 40 06/21/19 13:06 82 17 40 06/21/19 13:03 82 17 100 Mechanical Ventilator 40 06/21/19 12:37 98.8 88 20 154/96 (115) 98 Mechanical Ventilator Status: awake Condition: critical HEENT: atraumatic Neck: full ROM Lungs: clear Heart: HR/BP stable Abdomen: soft Extremities: no C/C/E Micro: Microbiology Date/Time Source Procedure Growth Status 06/21/19 20:30 Rectum Received Accucheck: 105 Critical Care - Subjective ROS Limited/Unobtainable: Yes Interval Events: pt with chronic respiratory falure, trach/peg, long-term resident brought in for abnormal Labs, including low h/h and renal failure. Condition: grave EKG Rhythm: Sinus Rhythm FI02: 40 Vent Support Breath Rate: 16 Vent Support Mode: AC Vent Tidal Volume: 500 Sputum Amount: Small PEEP: 5.0 PIP: 35 Labs: Laboratory Tests Test 06/21/19 14:20 06/21/19 15:30 06/22/19 03:20 White Blood Count 8.9 K/UL (4.8-10.8) 7.2 K/UL (4.8-10.8) Red Blood Count 2.08 M/UL (4.20-5.40) L 2.90 M/UL (4.20-5.40) L Hemoglobin 6.4 G/DL (12.0-16.0) *L 8.9 G/DL (12.0-16.0) #L Hematocrit 20.9 % (37.0-47.0) L 28.6 % (37.0-47.0) #L Mean Corpuscular Volume 100 FL (80-99) H 99 FL (80-99) Mean Corpuscular Hemoglobin 30.6 PG (27.0-31.0) 30.7 PG (27.0-31.0) Mean Corpuscular Hemoglobin Concent 30.5 G/DL (32.0-36.0) L 31.1 G/DL (32.0-36.0) L Red Cell Distribution Width 21.1 % (11.6-14.8) H 19.3 % (11.6-14.8) H Platelet Count 174 K/UL (150-450) 164 K/UL (150-450) Mean Platelet Volume 7.7 FL (6.5-10.1) 8.6 FL (6.5-10.1) Neutrophils (%) (Auto) % (45.0-75.0) 57.8 % (45.0-75.0) Lymphocytes (%) (Auto) % (20.0-45.0) 30.6 % (20.0-45.0) Monocytes (%) (Auto) % (1.0-10.0) 5.9 % (1.0-10.0) Eosinophils (%) (Auto) % (0.0-3.0) 4.6 % (0.0-3.0) H Basophils (%) (Auto) % (0.0-2.0) 1.2 % (0.0-2.0) Differential Total Cells Counted 100 Neutrophils % (Manual) 62 % (45-75) Lymphocytes % (Manual) 31 % (20-45) Monocytes % (Manual) 4 % (1-10) Eosinophils % (Manual) 1 % (0-3) Basophils % (Manual) 2 % (0-2) Band Neutrophils 0 % (0-8) Platelet Estimate Adequate Platelet Morphology Normal Polychromasia 1+ Hypochromasia 3+ Anisocytosis 2+ Macrocytosis 1+ Prothrombin Time 10.8 SEC (9.30-11.50) Prothromb Time International Ratio 1.0 (0.9-1.1) Activated Partial Thromboplast Time 28 SEC (23-33) Sodium Level 149 MMOL/L (136-145) H 148 MMOL/L (136-145) H Potassium Level 4.9 MMOL/L (3.5-5.1) 4.9 MMOL/L (3.5-5.1) Chloride Level 112 MMOL/L (98-107) H 114 MMOL/L (98-107) H Carbon Dioxide Level 26 MMOL/L (21-32) 21 MMOL/L (21-32) Anion Gap 12 mmol/L (5-15) 13 mmol/L (5-15) Blood Urea Nitrogen 65 mg/dL (7-18) H 57 mg/dL (7-18) H Creatinine 1.1 MG/DL (0.55-1.30) 0.9 MG/DL (0.55-1.30) Estimat Glomerular Filtration Rate mL/min (>60) mL/min (>60) Glucose Level 102 MG/DL (74-106) 76 MG/DL (74-106) Calcium Level 9.2 MG/DL (8.5-10.1) 9.2 MG/DL (8.5-10.1) Total Bilirubin 0.4 MG/DL (0.2-1.0) 0.5 MG/DL (0.2-1.0) Aspartate Amino Transf (AST/SGOT) 16 U/L (15-37) 23 U/L (15-37) Alanine Aminotransferase (ALT/SGPT) 8 U/L (12-78) L 10 U/L (12-78) L Alkaline Phosphatase 81 U/L (46-116) 67 U/L (46-116) Total Protein 7.1 G/DL (6.4-8.2) 6.8 G/DL (6.4-8.2) Albumin 2.0 G/DL (3.4-5.0) L 2.1 G/DL (3.4-5.0) L Globulin 5.1 g/dL 4.7 g/dL Albumin/Globulin Ratio 0.4 (1.0-2.7) L 0.4 (1.0-2.7) L Lipase 133 U/L (73-393) Urine Color Pale yellow Urine Appearance Clear Urine pH 8 (4.5-8.0) Urine Specific [place] 1.010 (1.005-1.035) Urine Protein 3+ (NEGATIVE) H Urine Glucose (UA) Negative (NEGATIVE) Urine Ketones Negative (NEGATIVE) Urine Blood 3+ (NEGATIVE) H Urine Nitrite Negative (NEGATIVE) Urine Bilirubin Negative (NEGATIVE) Urine Urobilinogen 1 MG/DL (0.0-1.0) H Urine Leukocyte Esterase Negative (NEGATIVE) Urine RBC 2-4 /HPF (0 - 2) H Urine WBC 0-2 /HPF (0 - 2) Urine Squamous Epithelial Cells Few /LPF (NONE/OCC) Urine Bacteria Few /HPF (NONE) Ferritin 222 NG/ML (8-388) Tony Springer MD Jun 22, 2019 11:01
--- NOTE | 2019-06-22 11:18 | Cardiology Report ---
APPROVED REPORT EKG Measurement Heart [id number] Normal sinus rhythm with sinus arrhythmia Left axis deviation Incomplete right bundle branch block Voltage criteria for left ventricular hypertrophy T wave abnormality, consider inferior ischemia T wave abnormality, consider anterolateral ischemia Prolonged QT Abnormal ECG
[2019-06-22 12:00] VITALS: BP 158/90
[2019-06-22] MEDS: D5 1/2NS 1,000 ML IV SCH (12:30)
[2019-06-22 16:00] VITALS: BP 156/88
--- NOTE | 2019-06-22 16:19 | Diagnostic Imaging Report ---
Indication: Dyspnea Technique: One view of the chest Comparison: 06/14/2019 Findings: Extensive bilateral infiltrates are again demonstrated. The heart is borderline enlarged. There is a tracheostomy. The pleural spaces are grossly clear Impression: Borderline cardiomegaly Bilateral infiltrates, similar to those seen on prior study 06/14/2019
[2019-06-22] MEDS ORDERED: VITAMIN C500 M1 GT (17:34)
[2019-06-22] MEDS ORDERED: ZINC SULFATE220 M1 GT (17:36)
[2019-06-22 20:00] VITALS: BP 133/80
[2019-06-22] MEDS: Dyna-Hex 2% Top Sol 2oz TOPIC SCH (20:00)
--- NOTE | 2019-06-22 20:30 | Consultation ---
History of Present Illness General Chief Complaint: Abnormal Labs Referring physician: SOMMER ALEJANDRA Reason for Consultation: ANEMIA Present Illness Allergies: Coded Allergies: No Known Allergies (Unverified , 06/21/19) Medication History Scheduled Acetaminophen 160MG/5ML* (Acetaminophen*), 20 ML GT QD, (Reported) Ascorbic Acid* (Vitamin C*), 500 MG GT BID, (Reported) Docusate Sodium (Docusate Sodium), 100 MG GT DAILY, (Reported) Epoetin Bandar (Epogen), 10,000 UNIT SUBQ 3XW, (Reported) Furosemide* (Lasix*), 20 MG GT DAILY, (Reported) Insulin Glargine (Lantus), 20 SUBQ BEDTIME, (Reported) Lansoprazole* (Lansoprazole*), 30 MG GT DAILY, (Reported) Multivitamin Liquid* (Multi-Delyn*), 15 ML GT DAILY, (Reported) Zinc Sulfate (Zinc Sulfate*), 220 MG GT DAILY, (Reported) Miscellaneous Medications Insulin Aspart (Novolog), (Reported) Discontinued Medications Clopidogrel Bisulfate* (Plavix*), 75 MG GT DAILY, (Reported) Discontinued Reason: Therapy completed Patient History Healthcare decision maker Richard Sage (son) Resuscitation status Full Code Advanced Directive on File No Physical Exam Last 24 Hour Vital Signs Date Time Temp Pulse Resp B/P (MAP) Pulse Ox O2 Delivery O2 Flow Rate FiO2 06/22/19 18:43 77 16 40 06/22/19 17:17 61 06/22/19 17:06 70 16 40 06/22/19 16:00 40 06/22/19 16:00 99.0 78 16 156/88 (110) 99 06/22/19 14:58 62 16 40 06/22/19 13:04 88 06/22/19 12:37 64 16 40 06/22/19 12:00 40 06/22/19 12:00 98.5 87 18 158/90 (112) 99 06/22/19 10:39 67 16 40 06/22/19 09:00 Mechanical Ventilator 06/22/19 08:47 62 16 40 06/22/19 08:00 97.9 69 18 152/95 (114) 100 06/22/19 08:00 40 06/22/19 08:00 70 06/22/19 07:18 63 16 40 06/22/19 05:29 170/90 06/22/19 05:02 71 16 40 06/22/19 04:00 40 06/22/19 04:00 98.0 88 17 170/91 (117) 100 06/22/19 03:31 65 06/22/19 02:33 68 16 40 06/22/19 00:44 79 16 40 06/22/19 00:00 97.5 69 17 154/88 (110) 100 06/21/19 23:27 69 06/21/19 22:49 63 16 40 06/21/19 21:00 Mechanical Ventilator 06/21/19 20:38 70 16 40 Intake and Output 06/21/19 06/22/19 19:00 07:00 # Voids 2 # Bowel Movements 2 Laboratory Tests Test 06/22/19 03:20 White Blood Count 7.2 K/UL (4.8-10.8) Red Blood Count 2.90 M/UL (4.20-5.40) L Hemoglobin 8.9 G/DL (12.0-16.0) #L Hematocrit 28.6 % (37.0-47.0) #L Mean Corpuscular Volume 99 FL (80-99) Mean Corpuscular Hemoglobin 30.7 PG (27.0-31.0) Mean Corpuscular Hemoglobin Concent 31.1 G/DL (32.0-36.0) L Red Cell Distribution Width 19.3 % (11.6-14.8) H Platelet Count 164 K/UL (150-450) Mean Platelet Volume 8.6 FL (6.5-10.1) Neutrophils (%) (Auto) 57.8 % (45.0-75.0) Lymphocytes (%) (Auto) 30.6 % (20.0-45.0) Monocytes (%) (Auto) 5.9 % (1.0-10.0) Eosinophils (%) (Auto) 4.6 % (0.0-3.0) H Basophils (%) (Auto) 1.2 % (0.0-2.0) Sodium Level 148 MMOL/L (136-145) H Potassium Level 4.9 MMOL/L (3.5-5.1) Chloride Level 114 MMOL/L (98-107) H Carbon Dioxide Level 21 MMOL/L (21-32) Anion Gap 13 mmol/L (5-15) Blood Urea Nitrogen 57 mg/dL (7-18) H Creatinine 0.9 MG/DL (0.55-1.30) Estimat Glomerular Filtration Rate mL/min (>60) Glucose Level 76 MG/DL (74-106) Calcium Level 9.2 MG/DL (8.5-10.1) Ferritin 222 NG/ML (8-388) Total Bilirubin 0.5 MG/DL (0.2-1.0) Aspartate Amino Transf (AST/SGOT) 23 U/L (15-37) Alanine Aminotransferase (ALT/SGPT) 10 U/L (12-78) L Alkaline Phosphatase 67 U/L (46-116) Total Protein 6.8 G/DL (6.4-8.2) Albumin 2.1 G/DL (3.4-5.0) L Globulin 4.7 g/dL Albumin/Globulin Ratio 0.4 (1.0-2.7) L Height (Feet): 5 Height (Inches): 3.00 Weight (Pounds): 196 Medications Current Medications Medications (Trade) Dose Ordered Sig/Kenisha Route PRN Reason Start Time Stop Time Status Last Admin Dose Admin Chlorhexidine Gluconate (Izzy-Hex 2%) 1 applic DAILY@1999 TOPIC 06/21/19 20:00 07/21/19 19:59 Clonidine HCl (Catapres Tab) 0.1 mg Q6H PRN GT SBP >160 06/22/19 05:00 07/22/19 04:59 06/22/19 05:29 Dextrose (Dextrose 50%) 25 ml Q30M PRN IV Hypoglycemia 06/21/19 16:00 07/21/19 15:59 Dextrose (Dextrose 50%) 50 ml Q30M PRN IV Hypoglycemia 06/21/19 16:00 07/21/19 15:59 Dextrose/Sodium Chloride 1,000 ml @ 50 mls/hr Q20H IV 06/21/19 15:46 07/21/19 15:45 06/22/19 12:30 Heparin Sodium (Porcine) (Heparin 5000 units/ml) 5,000 units EVERY 12 HOURS SUBQ 06/21/19 21:00 07/21/19 20:59 Lorazepam (Ativan 2mg/ml 1ml) 0.5 mg Q4H PRN IV For Anxiety 06/21/19 16:00 06/28/19 15:59 Morphine Sulfate (Morphine Sulfate) 1 mg Q4H PRN IVP For Pain 06/21/19 16:00 06/28/19 15:59 Ondansetron HCl (Zofran) 4 mg Q6H PRN IVP Nausea & Vomiting 06/21/19 16:00 07/21/19 15:59 Assessment/Plan Assessment/Plan: Hematology Consultation Date patient seen: Jun 22, 2019 Reason for Hospitalization: Abnormal Labs Referring physician: SOMMER ALEJANDRA Reason for Consultation: ANEMIA HPI 79-year-old female presents ED for evaluation. Brought in by EMS from snf facility. Here for abnormal labs. Had reportedly low hemoglobin. Patient is nonverbal. Has trach/vent. Has G-tube. No signs of distress upon arrival. No reported nausea or vomiting. No reported blood in stool. No other aggravating relieving factors. No other associated symptoms. GI consulted for anemia. ROS limited, all information obtained from medical record. Patient seen, no apparent distress. The patient presented with a low hemoglobin of 6.4, was transfused with 2 units of blood in the emergency room which hemoglobin is 8.4 at this time. The patient had a recent history of upper endoscopy on June 09, 2019 noted with gastritis, otherwise normal there is no obvious bleeding noted. Have seen this patient on prior admission and heme was consulted. Home Meds Reported Medications Furosemide* (LASIX*) 20 Mg Tablet, 20 MG ORAL DAILY, TAB 06/04/19 Lansoprazole* (LANSOPRAZOLE*) 30 Mg Capsule.dr, 30 MG GT DAILY, CAP 06/04/19 Acetaminophen 160MG/5ML* (ACETAMINOPHEN*) 160 Mg/5 Ml Elixir, 20 ML GT Q4HR PRN for Mild Pain/Temp > 100.5, ML 05/17/19 Docusate Sodium (Docusate Sodium) 50 Mg/5 Ml Liquid, 100 MG GT DAILY, EA 05/17/19 Multivitamin Liquid* (MULTI-DELYN*) 237 Ml Liquid, 15 ML GT DAILY, ML 05/17/19 Metoprolol Tartrate* (METOPROLOL TARTRATE*) 25 Mg Tablet, 25 MG GT EVERY 12 HOURS, TAB 05/17/19 Insulin Aspart (NOVOLOG) 100 Unit/1 Ml Cartridge, 100 UNIT SQ 05/17/19 Epoetin Bandar (EPOGEN) 20,000 Unit/2 Ml Vial, 46746 UNIT SUBQ 3XW, VIAL 05/17/19 Insulin Glargine (LANTUS) 100 Unit/1 Ml Insuln.pen, 20 SUBQ BEDTIME, #1 EA 0 Refills 04/12/19 Na Phos,M-B/Na Phos,Di-Ba* (FLEET ENEMA*) 133 Ml Enema, 133 ML RECTAL DAILY, ML 0 Refills 04/12/19 Discontinued Reported Medications Ascorbic Acid* (VITAMIN C*) 500 Mg Tablet, 500 MG GT DAILY, #30 TAB 0 Refills 06/04/19 Clopidogrel Bisulfate* (PLAVIX*) 75 Mg Tablet, 75 MG GT DAILY, TAB 05/17/19 Med list reviewed/reconciled: Yes Allergies: Coded Allergies: No Known Allergies (Unverified , 06/21/19) Patient History Limited by: medical condition History Provided By: Medical Record PMH Narrative Past Medical History: HTN, CVA/TIA, other - gastrostomy Past Surgical History: none Pertinent Family History: none Social History: Denies: smoking, alcohol use, drug use Now: No Immunizations: UTD Reviewed Nursing Documentation: PMH: Agreed; PSxH: Agreed Nursing Documentation-PMH Past Medical History: No History, Except For Hx Cardiac Problems: Yes - Hypertension Hx Hypertension: Yes Hx Diabetes: Yes Hx Cancer: No Hx Gastrointestinal Problems: Yes - GASTROSTOMY Hx Neurological Problems: Yes - CVA, hemiplegia, Hemiparesis, encephalopathy Social History: Denies: smoking, alcohol use, drug use, other GI ROS Review of Systems All Other Systems: limited GI Physical Exam Physical Exam Vital Signs Date Time Temp Pulse Resp B/P (MAP) Pulse Ox O2 Delivery O2 Flow Rate FiO2 06/21/19 12:37 98.8 88 20 154/96 (115) 98 Mechanical Ventilator 06/21/19 13:03 40 Sp02 EP Interpretation: reviewed, normal Labs Laboratory Tests Test 06/21/19 14:20 06/21/19 15:30 06/22/19 03:20 White Blood Count 8.9 K/UL (4.8-10.8) 7.2 K/UL (4.8-10.8) Red Blood Count 2.08 M/UL (4.20-5.40) L 2.90 M/UL (4.20-5.40) L Hemoglobin 6.4 G/DL (12.0-16.0) *L 8.9 G/DL (12.0-16.0) #L Hematocrit 20.9 % (37.0-47.0) L 28.6 % (37.0-47.0) #L Mean Corpuscular Volume 100 FL (80-99) H 99 FL (80-99) Mean Corpuscular Hemoglobin 30.6 PG (27.0-31.0) 30.7 PG (27.0-31.0) Mean Corpuscular Hemoglobin Concent 30.5 G/DL (32.0-36.0) L 31.1 G/DL (32.0-36.0) L Red Cell Distribution Width 21.1 % (11.6-14.8) H 19.3 % (11.6-14.8) H Platelet Count 174 K/UL (150-450) 164 K/UL (150-450) Mean Platelet Volume 7.7 FL (6.5-10.1) 8.6 FL (6.5-10.1) Neutrophils (%) (Auto) % (45.0-75.0) 57.8 % (45.0-75.0) Lymphocytes (%) (Auto) % (20.0-45.0) 30.6 % (20.0-45.0) Monocytes (%) (Auto) % (1.0-10.0) 5.9 % (1.0-10.0) Eosinophils (%) (Auto) % (0.0-3.0) 4.6 % (0.0-3.0) H Basophils (%) (Auto) % (0.0-2.0) 1.2 % (0.0-2.0) Differential Total Cells Counted 100 Neutrophils % (Manual) 62 % (45-75) Lymphocytes % (Manual) 31 % (20-45) Monocytes % (Manual) 4 % (1-10) Eosinophils % (Manual) 1 % (0-3) Basophils % (Manual) 2 % (0-2) Band Neutrophils 0 % (0-8) Platelet Estimate Adequate Platelet Morphology Normal Polychromasia 1+ Hypochromasia 3+ Anisocytosis 2+ Macrocytosis 1+ Prothrombin Time 10.8 SEC (9.30-11.50) Prothromb Time International Ratio 1.0 (0.9-1.1) Activated Partial Thromboplast Time 28 SEC (23-33) Sodium Level 149 MMOL/L (136-145) H 148 MMOL/L (136-145) H Potassium Level 4.9 MMOL/L (3.5-5.1) 4.9 MMOL/L (3.5-5.1) Chloride Level 112 MMOL/L (98-107) H 114 MMOL/L (98-107) H Carbon Dioxide Level 26 MMOL/L (21-32) 21 MMOL/L (21-32) Anion Gap 12 mmol/L (5-15) 13 mmol/L (5-15) Blood Urea Nitrogen 65 mg/dL (7-18) H 57 mg/dL (7-18) H Creatinine 1.1 MG/DL (0.55-1.30) 0.9 MG/DL (0.55-1.30) Estimat Glomerular Filtration Rate mL/min (>60) mL/min (>60) Glucose Level 102 MG/DL (74-106) 76 MG/DL (74-106) Calcium Level 9.2 MG/DL (8.5-10.1) 9.2 MG/DL (8.5-10.1) Total Bilirubin 0.4 MG/DL (0.2-1.0) 0.5 MG/DL (0.2-1.0) Aspartate Amino Transf (AST/SGOT) 16 U/L (15-37) 23 U/L (15-37) Alanine Aminotransferase (ALT/SGPT) 8 U/L (12-78) L 10 U/L (12-78) L Alkaline Phosphatase 81 U/L (46-116) 67 U/L (46-116) Total Protein 7.1 G/DL (6.4-8.2) 6.8 G/DL (6.4-8.2) Albumin 2.0 G/DL (3.4-5.0) L 2.1 G/DL (3.4-5.0) L Globulin 5.1 g/dL 4.7 g/dL Albumin/Globulin Ratio 0.4 (1.0-2.7) L 0.4 (1.0-2.7) L Lipase 133 U/L (73-393) Urine Color Pale yellow Urine Appearance Clear Urine pH 8 (4.5-8.0) Urine Specific [place] 1.010 (1.005-1.035) Urine Protein 3+ (NEGATIVE) H Urine Glucose (UA) Negative (NEGATIVE) Urine Ketones Negative (NEGATIVE) Urine Blood 3+ (NEGATIVE) H Urine Nitrite Negative (NEGATIVE) Urine Bilirubin Negative (NEGATIVE) Urine Urobilinogen 1 MG/DL (0.0-1.0) H Urine Leukocyte Esterase Negative (NEGATIVE) Urine RBC 2-4 /HPF (0 - 2) H Urine WBC 0-2 /HPF (0 - 2) Urine Squamous Epithelial Cells Few /LPF (NONE/OCC) Urine Bacteria Few /HPF (NONE) Ferritin 222 NG/ML (8-388) General Appearance: no apparent distress Head: normocephalic EENT: PERRL/EOMI, normal ENT inspection Neck: supple Respiratory: normal breath sounds, no respiratory distress Cardiovascular: normal rate Gastrointestinal: normal inspection, non tender, soft, normal bowel sounds, non -distended Rectal: deferred Genitourinary: no CVA tenderness Neurologic: normal inspection Skin: normal inspection, normal color, no rash, warm/dry, palpation normal, well hydrated Lymphatic: normal inspection, no adenopathy Labs: as per above Imaging: noted Assessment/Plan: # Anemia of chronic disease likely multifactorial process, in the past has had anemia as well --> w/u reveals ferritin is >1500, esr and crp are elevated --> on abx at this time, ID recs as needed --> smear has been reviewed, no schistocytes noted --> monitor for bleed, rior admissions has recieved blood --> hgb goal >7 and transfuse as needed --> cea is 4.2 is wnl --> hgb 6.4-->8.9 --> gi procedure on 06/09, didn't show localizing source, as per gi recs --> imaging has been reviewed # REMY on CKD --> per renal recs # Recent PNA --> s/p abx with Rx # HyperGlycemia / DM 24 H urine protein check 2.4 gram --> dm management # Right Esvin due to CVA --> ok to resume plafix # HTN is on metp --> sbp goal <150 # chronic resp failure s/p trach/vent dependant --> trach on 05/03/19 # Dysphagia s/p PEG # Nonverbal status # SNF resident # DVT ppx with heparin sq Time of note does not necessarily correspond to when patient was seen. Greatly appreciate consultation. Steven Norton MD Jun 22, 2019 20:30
--- NOTE | 2019-06-22 22:00 | History and Physical Report ---
DATE OF ADMISSION: 06/21/2019 CONSULTANTS: 1. Darron Gentile M.D. 2. Tony Springer M.D. 3. Dat Norton M.D. CHIEF COMPLAINT: Respiratory failure and anemia. BRIEF HISTORY: This is a 79-year-old female from [facility], presented with severe anemia. The patient was admitted and transfused. Currently, trach, vent, altered, lethargic in bed, and nonverbal. PAST MEDICAL HISTORY: Respiratory failure, anemia, weakness, metabolic encephalopathy, diabetes, CKD, malnutrition, and CVA. PAST SURGERY HISTORY: Trach and G-tube. MEDICATIONS: Include clonidine, heparin, chlorhexidine, , Zofran, and morphine. ALLERGIES: Denies. SOCIAL HISTORY: Unable to obtain. REVIEW OF SYSTEMS: Nonverbal. OBJECTIVE: GENERAL: Trach, vent, altered, lethargic in bed, and nonverbal. VITAL SIGNS: Temperature 97, pulse 69, respirations 18, and blood pressure 152/95. CARDIOVASCULAR: No murmurs. LUNGS: Poor air exchange. ABDOMEN: Bowel sounds distant. EXTREMITIES: No cyanosis, clubbing, or edema. NEUROLOGIC: The patient is flaccid in bed, not following directions. LABORATORY AND DIAGNOSTIC DATA: Labs, at this time, show initial H and H are 6.4 and 20.9. After transfusion is 8.9 and 28.6. Otherwise, CBC is normal. BMP shows sodium 148, chloride 114, and BUN 57. INR is 1.0. PTT is 28. Urinalysis, 3+ blood and 3+ protein. ASSESSMENT: 1. Respiratory failure. 2. Anemia. 3. Weakness. 4. Metabolic encephalopathy. 5. Diabetes. 6. CVA. 7. CKD. 8. Malnutrition. PLAN: 1. Dietary evaluation. 2. CBC and BMP in the morning. 3. Transfuse p.r.n. 4. Nephrology evaluation by Dr. Spivey. 5. Resume home medications. Jama Keating D.O. DR: JUAN JOB#: [id number] CC:
[2019-06-23] VITALS: BP 152/70
[2019-06-23 04:00] VITALS: BP 143/77
[2019-06-23 05:11] LABS: BASOPHILS % (AUTO) 1.1 % (0.0-2.0); EOSINOPHILS % (AUTO) 3.6 % (0.0-3.0); HEMATOCRIT 30.1 % (37.0-47.0); HEMOGLOBIN 9.4 G/DL (12.0-16.0); LYMPHOCYTES % (AUTO) 31.8 % (20.0-45.0); MEAN CORPUSCULAR VOLUME 99 FL (80-99); MONOCYTES % (AUTO) 4.7 % (1.0-10.0); NEUTROPHILS % (AUTO) 58.9 % (45.0-75.0); PLATELET COUNT 178 K/UL (150-450); RED BLOOD COUNT 3.04 M/UL (4.20-5.40); RED CELL DISTRIBUTION WIDTH 19.9 % (11.6-14.8); WHITE BLOOD COUNT 8.1 K/UL (4.8-10.8)
[2019-06-23 05:48] LABS: ALANINE AMINOTRANSFERASE 10 U/L (12-78); ALBUMIN 2.1 G/DL (3.4-5.0); ALBUMIN/GLOBULIN RATIO 0.4 (1.0-2.7); ALKALINE PHOSPHATASE 65 U/L (46-116); ANION GAP 12 mmol/L (5-15); ASPARTATE AMINO TRANSFERASE 31 U/L (15-37); BILIRUBIN,TOTAL 0.7 MG/DL (0.2-1.0); BLOOD UREA NITROGEN 50 mg/dL (7-18); CALCIUM 9.3 MG/DL (8.5-10.1); CARBON DIOXIDE 21 MMOL/L (21-32); CHLORIDE 113 MMOL/L (98-107); CREATININE 0.8 MG/DL (0.55-1.30); POTASSIUM 4.8 MMOL/L (3.5-5.1); SODIUM 146 MMOL/L (136-145)
[2019-06-23 05:56] LABS: INR 1.1 (0.9-1.1)
[2019-06-23] MEDS: D5 1/2NS 1,000 ML IV SCH (07:23)
--- NOTE | 2019-06-23 07:37 | General Progress Note ---
Assessment/Plan Problem List: (1) G tube feedings ICD Codes: Z93.1 - Gastrostomy status SNOMED: 958364542, 348596695, 975665778 (2) Chronic respiratory failure ICD Codes: J96.10 - Chronic respiratory failure, unspecified whether with hypoxia or hypercapnia SNOMED: 40262328 Qualifiers: Qualified Codes: J96.10 - Chronic respiratory failure, unspecified whether with hypoxia or hypercapnia (3) Anemia in chronic kidney disease (CKD) ICD Codes: N18.9 - Chronic kidney disease, unspecified; D63.1 - Anemia in chronic kidney disease SNOMED: 387660317 (4) Diabetes mellitus ICD Codes: E11.9 - Type 2 diabetes mellitus without complications SNOMED: 77071098 (5) CAD (coronary artery disease) ICD Codes: I25.10 - Atherosclerotic heart disease of [place] coronary artery without angina pectoris SNOMED: 41305190 (6) History of CVA (cerebrovascular accident) ICD Codes: Z86.73 - Personal history of transient ischemic attack (TIA), and cerebral infarction without residual deficits SNOMED: 717848961 (7) GI bleed ICD Codes: K92.2 - Gastrointestinal hemorrhage, unspecified SNOMED: 16860224 Assessment/Plan: EGD in last admission without any obvious finding for GIB patient has black stools needs colonoscopy will plan for tomorrow Subjective ROS Limited/Unobtainable: No Allergies: Coded Allergies: No Known Allergies (Unverified , 06/21/19) Objective Last 24 Hour Vital Signs Date Time Temp Pulse Resp B/P (MAP) Pulse Ox O2 Delivery O2 Flow Rate FiO2 06/23/19 06:58 63 16 40 06/23/19 05:21 80 16 40 06/23/19 04:00 97.9 78 16 143/77 (99) 99 06/23/19 04:00 40 06/23/19 03:25 60 06/23/19 02:41 72 16 40 06/23/19 01:09 65 16 40 06/23/19 00:00 98.5 63 18 152/70 (97) 97 06/22/19 23:26 56 06/22/19 22:40 76 16 40 06/22/19 21:08 68 16 40 06/22/19 21:00 Mechanical Ventilator 06/22/19 20:00 98.0 68 16 133/80 (97) 99 06/22/19 20:00 40 06/22/19 19:34 71 06/22/19 18:43 77 16 40 06/22/19 17:17 61 06/22/19 17:06 70 16 40 06/22/19 16:00 40 06/22/19 16:00 99.0 78 16 156/88 (110) 99 06/22/19 14:58 62 16 40 06/22/19 13:04 88 06/22/19 12:37 64 16 40 06/22/19 12:00 40 06/22/19 12:00 98.5 87 18 158/90 (112) 99 06/22/19 10:39 67 16 40 06/22/19 09:00 Mechanical Ventilator 06/22/19 08:47 62 16 40 06/22/19 08:00 97.9 69 18 152/95 (114) 100 06/22/19 08:00 40 06/22/19 08:00 70 Intake and Output 06/22/19 06/23/19 19:00 07:00 Intake Total 100 ml Output Total 350 ml 250 ml Balance -250 ml -250 ml Intake Free Water 100 ml Output Urine Total 350 ml 250 ml # Voids 1 # Bowel Movements 1 1 Laboratory Tests 06/22/19 09:00: Stool Occult Blood [Pending] 06/23/19 03:41: White Blood Count 8.1, Red Blood Count 3.04L, Hemoglobin 9.4L, Hematocrit 30.1L , Mean Corpuscular Volume 99, Mean Corpuscular Hemoglobin 31.0, Mean Corpuscular Hemoglobin Concent 31.2L, Red Cell Distribution Width 19.9H, Platelet Count 178, Mean Platelet Volume 7.9, Neutrophils (%) (Auto) 58.9, Lymphocytes (%) (Auto) 31.8, Monocytes (%) (Auto) 4.7, Eosinophils (%) (Auto) 3.6H, Basophils (%) (Auto) 1.1, Prothrombin Time 11.8H, Prothromb Time International Ratio 1.1, Activated Partial Thromboplast Time 29, Sodium Level 146H, Potassium Level 4.8, Chloride Level 113H, Carbon Dioxide Level 21, Anion Gap 12, Blood Urea Nitrogen 50H, Creatinine 0.8, Estimat Glomerular Filtration Rate , Glucose Level 81, Calcium Level 9.3, Phosphorus Level 4.0, Magnesium Level 2.1, Total Bilirubin 0.7, Aspartate Amino Transf (AST/SGOT) 31, Alanine Aminotransferase (ALT/SGPT) 10L, Alkaline Phosphatase 65, Total Protein 6.9, Albumin 2.1L, Globulin 4.8, Albumin/Globulin Ratio 0.4L Height (Feet): 5 Height (Inches): 3.00 Weight (Pounds): 213 General Appearance: no apparent distress EENT: normal ENT inspection Neck: supple Cardiovascular: normal rate Respiratory/Chest: decreased breath sounds Abdomen: normal bowel sounds, non tender, soft Extremities: non-tender Darron Gentile MD Jun 23, 2019 07:37
[2019-06-23 08:00] VITALS: BP 178/94
--- NOTE | 2019-06-23 08:57 | Hematology/Onc Progress Note ---
Assessment/Plan Assessment/Plan Assessment/Plan: # Anemia of chronic disease likely multifactorial process, in the past has had anemia as well --> w/u reveals ferritin 1500-->333-->222, with esr and crp are elevated --> on abx at this time, ID recs as needed --> smear has been reviewed, no schistocytes noted --> monitor for bleed, rior admissions has recieved blood --> hgb goal >7 and transfuse as needed --> cea is 4.2 is wnl --> hgb 6.4-->8.9 --> gi procedure on 06/09, didn't show localizing source, as per gi recs --> imaging has been reviewed --> per gi may need repeat colo --> given rapid drop in ferritin, begin iv iron x 5 days # REMY on CKD --> per renal recs # Recent PNA --> s/p abx with Rx # HyperGlycemia / DM 24 H urine protein check 2.4 gram --> dm management # Right Esvin due to CVA --> ok to resume plafix # HTN is on metp --> sbp goal <150 # chronic resp failure s/p trach/vent dependant --> trach on 05/03/19 # Dysphagia s/p PEG # Nonverbal status # SNF resident # DVT ppx with heparin sq Time of note does not necessarily correspond to when patient was seen. Greatly appreciate consultation. Subjective Constitutional: Denies: no symptoms, chills, fever, malaise, weakness, other HEENT: Denies: no symptoms, eye pain, blurred vision, tearing, double vision, ear pain, ear discharge, nose pain, nose congestion, throat pain, throat swelling, mouth pain, mouth swelling, other Cardiovascular: Denies: no symptoms, chest pain, edema, irregular heart rate, lightheadedness, palpitations, syncope, other Gastrointestinal/Abdominal: Denies: no symptoms, abdomen distended, abdominal pain, black stools, tarry stools, blood in stool, constipated, diarrhea, difficulty swallowing, nausea, poor appetite, poor fluid intake, rectal bleeding , vomiting, other Genitourinary: Denies: no symptoms, burning, discharge, frequency, flank pain, hematuria, incontinence, pain, urgency, other Endocrine: Denies: no symptoms, excessive sweating, flushing, intolerance to cold, intolerance to heat, increased hunger, increased thirst, increased urine, unexplained weight gain, unexplained weight loss, other Hematologic/Lymphatic: Denies: no symptoms, anemia, easy bleeding, easy bruising, adenopathy, other Allergies: Coded Allergies: No Known Allergies (Unverified , 06/21/19) Subjective 06/23: labs have been reviewed, ferritin is 222, no bleeding reported, no f/c Objective Objective Current Medications Medications (Trade) Dose Ordered Sig/Kenisha Route PRN Reason Start Time Stop Time Status Last Admin Dose Admin Chlorhexidine Gluconate (Izzy-Hex 2%) 1 applic DAILY@1999 TOPIC 06/21/19 20:00 07/21/19 19:59 Clonidine HCl (Catapres Tab) 0.1 mg Q6H PRN GT SBP >160 06/22/19 05:00 07/22/19 04:59 06/22/19 05:29 Dextrose (Dextrose 50%) 25 ml Q30M PRN IV Hypoglycemia 06/21/19 16:00 07/21/19 15:59 Dextrose (Dextrose 50%) 50 ml Q30M PRN IV Hypoglycemia 06/21/19 16:00 07/21/19 15:59 Dextrose/Sodium Chloride 1,000 ml @ 50 mls/hr Q20H IV 06/21/19 15:46 07/21/19 15:45 06/23/19 07:23 Heparin Sodium (Porcine) (Heparin 5000 units/ml) 5,000 units EVERY 12 HOURS SUBQ 06/21/19 21:00 07/21/19 20:59 Lorazepam (Ativan 2mg/ml 1ml) 0.5 mg Q4H PRN IV For Anxiety 06/21/19 16:00 06/28/19 15:59 Morphine Sulfate (Morphine Sulfate) 1 mg Q4H PRN IVP For Pain 06/21/19 16:00 06/28/19 15:59 Ondansetron HCl (Zofran) 4 mg Q6H PRN IVP Nausea & Vomiting 06/21/19 16:00 07/21/19 15:59 Polyethylene Glycol/ Electrolytes (Nulytely) 4,000 ml ONCE GT 06/23/19 14:00 06/23/19 23:59 Last 24 Hour Vital Signs Date Time Temp Pulse Resp B/P (MAP) Pulse Ox O2 Delivery O2 Flow Rate FiO2 06/23/19 06:58 63 16 40 06/23/19 05:21 80 16 40 06/23/19 04:00 97.9 78 16 143/77 (99) 99 06/23/19 04:00 40 06/23/19 03:25 60 06/23/19 02:41 72 16 40 06/23/19 01:09 65 16 40 06/23/19 00:00 98.5 63 18 152/70 (97) 97 06/22/19 23:26 56 06/22/19 22:40 76 16 40 06/22/19 21:08 68 16 40 06/22/19 21:00 Mechanical Ventilator 06/22/19 20:00 98.0 68 16 133/80 (97) 99 06/22/19 20:00 40 06/22/19 19:34 71 06/22/19 18:43 77 16 40 06/22/19 17:17 61 06/22/19 17:06 70 16 40 06/22/19 16:00 40 06/22/19 16:00 99.0 78 16 156/88 (110) 99 06/22/19 14:58 62 16 40 06/22/19 13:04 88 06/22/19 12:37 64 16 40 06/22/19 12:00 40 06/22/19 12:00 98.5 87 18 158/90 (112) 99 06/22/19 10:39 67 16 40 06/22/19 09:00 Mechanical Ventilator 06/22/19 08:47 62 16 40 06/22/19 08:00 97.9 69 18 152/95 (114) 100 06/22/19 08:00 40 06/22/19 08:00 70 06/22/19 07:18 63 16 40 06/22/19 05:29 170/90 06/22/19 05:02 71 16 40 06/22/19 04:00 40 06/22/19 04:00 98.0 88 17 170/91 (117) 100 06/22/19 03:31 65 06/22/19 02:33 68 16 40 06/22/19 00:44 79 16 40 06/22/19 00:00 97.5 69 17 154/88 (110) 100 06/21/19 23:27 69 06/21/19 22:49 63 16 40 06/21/19 21:00 Mechanical Ventilator 06/21/19 20:38 70 16 40 06/21/19 20:00 40 06/21/19 20:00 96.8 68 16 162/83 (109) 100 06/21/19 19:47 71 06/21/19 19:18 78 18 40 06/21/19 18:47 Mechanical Ventilator 06/21/19 18:00 97.7 70 14 149/74 100 Mechanical Ventilator 40 06/21/19 18:00 97.6 75 16 153/90 (111) 100 06/21/19 17:25 98.3 67 16 06/21/19 17:24 70 15 40 06/21/19 17:20 98.4 70 16 06/21/19 17:15 98.1 69 16 06/21/19 16:24 98.9 71 16 167/74 100 Mechanical Ventilator 40 06/21/19 15:28 81 16 40 06/21/19 15:09 98.8 75 17 154/96 100 Mechanical Ventilator 40 06/21/19 13:06 82 17 40 06/21/19 13:03 82 17 100 Mechanical Ventilator 40 06/21/19 12:37 98.8 88 20 154/96 (115) 98 Mechanical Ventilator Intake and Output 06/22/19 06/23/19 19:00 07:00 Intake Total 100 ml Output Total 350 ml 250 ml Balance -250 ml -250 ml Intake Free Water 100 ml Output Urine Total 350 ml 250 ml # Voids 1 # Bowel Movements 1 1 Labs Test 06/21/19 14:20 06/21/19 15:30 06/22/19 03:20 06/22/19 09:00 White Blood Count 8.9 K/UL (4.8-10.8) 7.2 K/UL (4.8-10.8) Red Blood Count 2.08 M/UL (4.20-5.40) 2.90 M/UL (4.20-5.40) Hemoglobin 6.4 G/DL (12.0-16.0) 8.9 G/DL (12.0-16.0) Hematocrit 20.9 % (37.0-47.0) 28.6 % (37.0-47.0) Mean Corpuscular Volume 100 FL (80-99) 99 FL (80-99) Mean Corpuscular Hemoglobin 30.6 PG (27.0-31.0) 30.7 PG (27.0-31.0) Mean Corpuscular Hemoglobin Concent 30.5 G/DL (32.0-36.0) 31.1 G/DL (32.0-36.0) Red Cell Distribution Width 21.1 % (11.6-14.8) 19.3 % (11.6-14.8) Platelet Count 174 K/UL (150-450) 164 K/UL (150-450) Mean Platelet Volume 7.7 FL (6.5-10.1) 8.6 FL (6.5-10.1) Neutrophils (%) (Auto) % (45.0-75.0) 57.8 % (45.0-75.0) Lymphocytes (%) (Auto) % (20.0-45.0) 30.6 % (20.0-45.0) Monocytes (%) (Auto) % (1.0-10.0) 5.9 % (1.0-10.0) Eosinophils (%) (Auto) % (0.0-3.0) 4.6 % (0.0-3.0) Basophils (%) (Auto) % (0.0-2.0) 1.2 % (0.0-2.0) Differential Total Cells Counted 100 Neutrophils % (Manual) 62 % (45-75) Lymphocytes % (Manual) 31 % (20-45) Monocytes % (Manual) 4 % (1-10) Eosinophils % (Manual) 1 % (0-3) Basophils % (Manual) 2 % (0-2) Band Neutrophils 0 % (0-8) Platelet Estimate Adequate Platelet Morphology Normal Polychromasia 1+ Hypochromasia 3+ Anisocytosis 2+ Macrocytosis 1+ Prothrombin Time 10.8 SEC (9.30-11.50) Prothromb Time International Ratio 1.0 (0.9-1.1) Activated Partial Thromboplast Time 28 SEC (23-33) Sodium Level 149 MMOL/L (136-145) 148 MMOL/L (136-145) Potassium Level 4.9 MMOL/L (3.5-5.1) 4.9 MMOL/L (3.5-5.1) Chloride Level 112 MMOL/L (98-107) 114 MMOL/L (98-107) Carbon Dioxide Level 26 MMOL/L (21-32) 21 MMOL/L (21-32) Anion Gap 12 mmol/L (5-15) 13 mmol/L (5-15) Blood Urea Nitrogen 65 mg/dL (7-18) 57 mg/dL (7-18) Creatinine 1.1 MG/DL (0.55-1.30) 0.9 MG/DL (0.55-1.30) Estimat Glomerular Filtration Rate mL/min (>60) mL/min (>60) Glucose Level 102 MG/DL (74-106) 76 MG/DL (74-106) Calcium Level 9.2 MG/DL (8.5-10.1) 9.2 MG/DL (8.5-10.1) Total Bilirubin 0.4 MG/DL (0.2-1.0) 0.5 MG/DL (0.2-1.0) Aspartate Amino Transf (AST/SGOT) 16 U/L (15-37) 23 U/L (15-37) Alanine Aminotransferase (ALT/SGPT) 8 U/L (12-78) 10 U/L (12-78) Alkaline Phosphatase 81 U/L (46-116) 67 U/L (46-116) Total Protein 7.1 G/DL (6.4-8.2) 6.8 G/DL (6.4-8.2) Albumin 2.0 G/DL (3.4-5.0) 2.1 G/DL (3.4-5.0) Globulin 5.1 g/dL 4.7 g/dL Albumin/Globulin Ratio 0.4 (1.0-2.7) 0.4 (1.0-2.7) Lipase 133 U/L (73-393) Urine Color Pale yellow Urine Appearance Clear Urine pH 8 (4.5-8.0) Urine Specific [place] 1.010 (1.005-1.035) Urine Protein 3+ (NEGATIVE) Urine Glucose (UA) Negative (NEGATIVE) Urine Ketones Negative (NEGATIVE) Urine Blood 3+ (NEGATIVE) Urine Nitrite Negative (NEGATIVE) Urine Bilirubin Negative (NEGATIVE) Urine Urobilinogen 1 MG/DL (0.0-1.0) Urine Leukocyte Esterase Negative (NEGATIVE) Urine RBC 2-4 /HPF (0 - 2) Urine WBC 0-2 /HPF (0 - 2) Urine Squamous Epithelial Cells Few /LPF (NONE/OCC) Urine Bacteria Few /HPF (NONE) Ferritin 222 NG/ML (8-388) Test 06/23/19 03:41 White Blood Count 8.1 K/UL (4.8-10.8) Red Blood Count 3.04 M/UL (4.20-5.40) Hemoglobin 9.4 G/DL (12.0-16.0) Hematocrit 30.1 % (37.0-47.0) Mean Corpuscular Volume 99 FL (80-99) Mean Corpuscular Hemoglobin 31.0 PG (27.0-31.0) Mean Corpuscular Hemoglobin Concent 31.2 G/DL (32.0-36.0) Red Cell Distribution Width 19.9 % (11.6-14.8) Platelet Count 178 K/UL (150-450) Mean Platelet Volume 7.9 FL (6.5-10.1) Neutrophils (%) (Auto) 58.9 % (45.0-75.0) Lymphocytes (%) (Auto) 31.8 % (20.0-45.0) Monocytes (%) (Auto) 4.7 % (1.0-10.0) Eosinophils (%) (Auto) 3.6 % (0.0-3.0) Basophils (%) (Auto) 1.1 % (0.0-2.0) Prothrombin Time 11.8 SEC (9.30-11.50) Prothromb Time International Ratio 1.1 (0.9-1.1) Activated Partial Thromboplast Time 29 SEC (23-33) Sodium Level 146 MMOL/L (136-145) Potassium Level 4.8 MMOL/L (3.5-5.1) Chloride Level 113 MMOL/L (98-107) Carbon Dioxide Level 21 MMOL/L (21-32) Anion Gap 12 mmol/L (5-15) Blood Urea Nitrogen 50 mg/dL (7-18) Creatinine 0.8 MG/DL (0.55-1.30) Estimat Glomerular Filtration Rate mL/min (>60) Glucose Level 81 MG/DL (74-106) Calcium Level 9.3 MG/DL (8.5-10.1) Phosphorus Level 4.0 MG/DL (2.5-4.9) Magnesium Level 2.1 MG/DL (1.8-2.4) Total Bilirubin 0.7 MG/DL (0.2-1.0) Aspartate Amino Transf (AST/SGOT) 31 U/L (15-37) Alanine Aminotransferase (ALT/SGPT) 10 U/L (12-78) Alkaline Phosphatase 65 U/L (46-116) Total Protein 6.9 G/DL (6.4-8.2) Albumin 2.1 G/DL (3.4-5.0) Globulin 4.8 g/dL Albumin/Globulin Ratio 0.4 (1.0-2.7) Height (Feet): 5 Height (Inches): 3.00 Weight (Pounds): 213 Objective General: no apparent distress HEENT: PERRL/EOMI, normal ENT inspection Neck: supple Respiratory: normal breath sounds, no respiratory distress Cardiovascular: normal rate Gastrointestinal: normal inspection, non tender, soft, normal bowel sounds, non -distended Genitourinary: no CVA tenderness Neurologic: normal inspection Skin: normal inspection, normal color, no rash, warm/dry, palpation normal, well hydrated Steven Norton MD Jun 23, 2019 08:57
[2019-06-23] MEDS: Heparin 5000 units/ml inj SUBQ SCH ×2 (09:00→20:11)
--- NOTE | 2019-06-23 09:02 | General Progress Note ---
Assessment/Plan Problem List: (1) Acute and chronic respiratory failure ICD Codes: J96.20 - Acute and chronic respiratory failure, unspecified whether with hypoxia or hypercapnia SNOMED: 48039969 (2) Black tarry stools ICD Codes: K92.1 - [place] SNOMED: 518256033 (3) Anemia ICD Codes: D64.9 - Anemia, unspecified SNOMED: 271075125 Qualifiers: Qualified Codes: D64.9 - Anemia, unspecified (4) GI bleed ICD Codes: K92.2 - Gastrointestinal hemorrhage, unspecified SNOMED: 30357692 (5) ATN (acute tubular necrosis) ICD Codes: N17.0 - Acute kidney failure with tubular necrosis SNOMED: 59991856 (6) History of CVA (cerebrovascular accident) ICD Codes: Z86.73 - Personal history of transient ischemic attack (TIA), and cerebral infarction without residual deficits SNOMED: 459679815 (7) Diabetes mellitus ICD Codes: E11.9 - Type 2 diabetes mellitus without complications SNOMED: 88974277 Status: stable, progressing Assessment/Plan: vent bp bs control cbc bmp am dc plan Subjective Constitutional: Reports: weakness Allergies: Coded Allergies: No Known Allergies (Unverified , 06/21/19) All Systems: reviewed and negative except above Subjective trach vent altered Objective Last 24 Hour Vital Signs Date Time Temp Pulse Resp B/P (MAP) Pulse Ox O2 Delivery O2 Flow Rate FiO2 06/23/19 06:58 63 16 40 06/23/19 05:21 80 16 40 06/23/19 04:00 97.9 78 16 143/77 (99) 99 06/23/19 04:00 40 06/23/19 03:25 60 06/23/19 02:41 72 16 40 06/23/19 01:09 65 16 40 06/23/19 00:00 98.5 63 18 152/70 (97) 97 06/22/19 23:26 56 06/22/19 22:40 76 16 40 06/22/19 21:08 68 16 40 06/22/19 21:00 Mechanical Ventilator 06/22/19 20:00 98.0 68 16 133/80 (97) 99 06/22/19 20:00 40 06/22/19 19:34 71 06/22/19 18:43 77 16 40 06/22/19 17:17 61 06/22/19 17:06 70 16 40 06/22/19 16:00 40 06/22/19 16:00 99.0 78 16 156/88 (110) 99 06/22/19 14:58 62 16 40 06/22/19 13:04 88 06/22/19 12:37 64 16 40 06/22/19 12:00 40 06/22/19 12:00 98.5 87 18 158/90 (112) 99 06/22/19 10:39 67 16 40 Intake and Output 06/22/19 06/23/19 19:00 07:00 Intake Total 100 ml Output Total 350 ml 250 ml Balance -250 ml -250 ml Intake Free Water 100 ml Output Urine Total 350 ml 250 ml # Voids 1 # Bowel Movements 1 1 Laboratory Tests 06/23/19 03:41: White Blood Count 8.1, Red Blood Count 3.04L, Hemoglobin 9.4L, Hematocrit 30.1L , Mean Corpuscular Volume 99, Mean Corpuscular Hemoglobin 31.0, Mean Corpuscular Hemoglobin Concent 31.2L, Red Cell Distribution Width 19.9H, Platelet Count 178, Mean Platelet Volume 7.9, Neutrophils (%) (Auto) 58.9, Lymphocytes (%) (Auto) 31.8, Monocytes (%) (Auto) 4.7, Eosinophils (%) (Auto) 3.6H, Basophils (%) (Auto) 1.1, Prothrombin Time 11.8H, Prothromb Time International Ratio 1.1, Activated Partial Thromboplast Time 29, Sodium Level 146H, Potassium Level 4.8, Chloride Level 113H, Carbon Dioxide Level 21, Anion Gap 12, Blood Urea Nitrogen 50H, Creatinine 0.8, Estimat Glomerular Filtration Rate , Glucose Level 81, Calcium Level 9.3, Phosphorus Level 4.0, Magnesium Level 2.1, Total Bilirubin 0.7, Aspartate Amino Transf (AST/SGOT) 31, Alanine Aminotransferase (ALT/SGPT) 10L, Alkaline Phosphatase 65, Total Protein 6.9, Albumin 2.1L, Globulin 4.8, Albumin/Globulin Ratio 0.4L Height (Feet): 5 Height (Inches): 3.00 Weight (Pounds): 213 General Appearance: lethargic EENT: normal ENT inspection Neck: normal alignment Cardiovascular: normal peripheral pulses, normal rate, regular rhythm Respiratory/Chest: chest wall non-tender, lungs clear, normal breath sounds Abdomen: normal bowel sounds, non tender, soft Extremities: normal inspection Edema: no edema noted Arm (L), no edema noted Arm (R), no edema noted Leg (L), no edema noted Leg (R), no edema noted Pedal (L), no edema noted Pedal (R), no edema noted Generalized Neurologic: motor weakness Skin: normal pigmentation, warm/dry Jama Keating DO Jun 23, 2019 09:02
--- NOTE | 2019-06-23 09:50 | Pulmonolgy Critical Care Note ---
Critical Care - Asmt/Plan Problems: (1) Acute and chronic respiratory failure (2) GI bleed (3) Pulmonary edema (4) Anemia in chronic kidney disease (CKD) (5) ATN (acute tubular necrosis) (6) 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 (7) CAD (coronary artery disease) (8) History of CVA (cerebrovascular accident) (9) Diabetes mellitus Respiratory: monitor respiratory rate, adjust FIO2, CXR Cardiac: continue pressors, continue to monitor HR/BP Renal: F/U I&O, check electrolytes Infectious Disease: continue antibiotics Gastrointestinal: continue feedings/current rate Endocrine: monitor blood sugar Hematologic: transfuse if hgb<8.5 Neurologic: PRN Ativan, PRN Morphine, keep patient comfortable Affect: PRN ativan Prophylaxis: Heparin Time Spent (Minutes): 40 Notes 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 Discussed with: nurses, consultants, foster care case managercare transition manager - Objective Last 24 Hour Vital Signs Date Time Temp Pulse Resp B/P (MAP) Pulse Ox O2 Delivery O2 Flow Rate FiO2 06/23/19 09:31 178/94 06/23/19 09:06 68 16 40 06/23/19 08:00 98.5 68 16 178/94 (122) 100 06/23/19 06:58 63 16 40 06/23/19 05:21 80 16 40 06/23/19 04:00 97.9 78 16 143/77 (99) 99 06/23/19 04:00 40 06/23/19 03:25 60 06/23/19 02:41 72 16 40 06/23/19 01:09 65 16 40 06/23/19 00:00 98.5 63 18 152/70 (97) 97 06/22/19 23:26 56 06/22/19 22:40 76 16 40 06/22/19 21:08 68 16 40 06/22/19 21:00 Mechanical Ventilator 06/22/19 20:00 98.0 68 16 133/80 (97) 99 06/22/19 20:00 40 06/22/19 19:34 71 06/22/19 18:43 77 16 40 06/22/19 17:17 61 06/22/19 17:06 70 16 40 06/22/19 16:00 40 06/22/19 16:00 99.0 78 16 156/88 (110) 99 06/22/19 14:58 62 16 40 06/22/19 13:04 88 06/22/19 12:37 64 16 40 06/22/19 12:00 40 06/22/19 12:00 98.5 87 18 158/90 (112) 99 06/22/19 10:39 67 16 40 Status: awake Condition: critical HEENT: atraumatic Lungs: clear Heart: HR/BP stable Abdomen: soft, active bowel sounds Extremities: no C/C/E, edema Decubiti: location Micro: Microbiology Date/Time Source Procedure Growth Status 06/21/19 20:30 Nasal Nares MRSA Culture - Final NO METHICILLIN RESISTANT STAPH AUREUS... Complete 06/21/19 20:30 Rectum Received Accucheck: 105 Critical Care - Subjective ROS Limited/Unobtainable: Yes Condition: critical EKG Rhythm: Sinus Rhythm FI02: 40 Vent Support Breath Rate: 16 Vent Support Mode: AC Vent Tidal Volume: 500 Sputum Amount: Moderate PEEP: 5.0 PIP: 42 I&O: Intake and Output 06/22/19 06/23/19 19:00 07:00 Intake Total 100 ml Output Total 350 ml 250 ml Balance -250 ml -250 ml Intake Free Water 100 ml Output Urine Total 350 ml 250 ml # Voids 1 # Bowel Movements 1 1 CXR: bilateral pulmonary edema Labs: Laboratory Tests Test 06/23/19 03:41 White Blood Count 8.1 K/UL (4.8-10.8) Red Blood Count 3.04 M/UL (4.20-5.40) L Hemoglobin 9.4 G/DL (12.0-16.0) L Hematocrit 30.1 % (37.0-47.0) L Mean Corpuscular Volume 99 FL (80-99) Mean Corpuscular Hemoglobin 31.0 PG (27.0-31.0) Mean Corpuscular Hemoglobin Concent 31.2 G/DL (32.0-36.0) L Red Cell Distribution Width 19.9 % (11.6-14.8) H Platelet Count 178 K/UL (150-450) Mean Platelet Volume 7.9 FL (6.5-10.1) Neutrophils (%) (Auto) 58.9 % (45.0-75.0) Lymphocytes (%) (Auto) 31.8 % (20.0-45.0) Monocytes (%) (Auto) 4.7 % (1.0-10.0) Eosinophils (%) (Auto) 3.6 % (0.0-3.0) H Basophils (%) (Auto) 1.1 % (0.0-2.0) Prothrombin Time 11.8 SEC (9.30-11.50) H Prothromb Time International Ratio 1.1 (0.9-1.1) Activated Partial Thromboplast Time 29 SEC (23-33) Sodium Level 146 MMOL/L (136-145) H Potassium Level 4.8 MMOL/L (3.5-5.1) Chloride Level 113 MMOL/L (98-107) H Carbon Dioxide Level 21 MMOL/L (21-32) Anion Gap 12 mmol/L (5-15) Blood Urea Nitrogen 50 mg/dL (7-18) H Creatinine 0.8 MG/DL (0.55-1.30) Estimat Glomerular Filtration Rate mL/min (>60) Glucose Level 81 MG/DL (74-106) Calcium Level 9.3 MG/DL (8.5-10.1) Phosphorus Level 4.0 MG/DL (2.5-4.9) Magnesium Level 2.1 MG/DL (1.8-2.4) Total Bilirubin 0.7 MG/DL (0.2-1.0) Aspartate Amino Transf (AST/SGOT) 31 U/L (15-37) Alanine Aminotransferase (ALT/SGPT) 10 U/L (12-78) L Alkaline Phosphatase 65 U/L (46-116) Total Protein 6.9 G/DL (6.4-8.2) Albumin 2.1 G/DL (3.4-5.0) L Globulin 4.8 g/dL Albumin/Globulin Ratio 0.4 (1.0-2.7) L Tony Springer MD Jun 23, 2019 09:50
[2019-06-23 12:00] VITALS: BP 189/99
[2019-06-23] MEDS ORDERED: Enalaprilat 1.25mg/ml Inj IV PRN (12:45)
[2019-06-23] MEDS ORDERED: Labetalol 5mg/ml 20ml vial IV PRN (12:45)
[2019-06-23] MEDS ORDERED: Nulytely 4L GT SCH (14:00)
[2019-06-23 16:00] VITALS: BP 142/77
--- NOTE | 2019-06-23 16:17 | Consultation ---
History of Present Illness General Date patient seen: Jun 23, 2019 Reason for Hospitalization: Abnormal Labs Present Illness HPI 79 year old female known to me from prior admission who is a retirement resident with multiple medical comorbidities that presented with anemia and abnormal labs. on admission noted to have multiple decubitus ulcers requiring care. surgery called to evaluate and assist with management. patient seen, chart reviewed, patient examined. family a bedside. patient on vent support via trach and cannot communicate but awake and responsive. Allergies: Coded Allergies: No Known Allergies (Unverified , 06/21/19) Medication History Scheduled Acetaminophen 160MG/5ML* (Acetaminophen*), 20 ML GT QD, (Reported) Ascorbic Acid* (Vitamin C*), 500 MG GT BID, (Reported) Docusate Sodium (Docusate Sodium), 100 MG GT DAILY, (Reported) Epoetin Bandar (Epogen), 10,000 UNIT SUBQ 3XW, (Reported) Furosemide* (Lasix*), 20 MG GT DAILY, (Reported) Insulin Glargine (Lantus), 20 SUBQ BEDTIME, (Reported) Lansoprazole* (Lansoprazole*), 30 MG GT DAILY, (Reported) Multivitamin Liquid* (Multi-Delyn*), 15 ML GT DAILY, (Reported) Zinc Sulfate (Zinc Sulfate*), 220 MG GT DAILY, (Reported) Miscellaneous Medications Insulin Aspart (Novolog), (Reported) Patient History Limited by: medical condition History Provided By: Family Member, Medical Record, PMD Healthcare decision maker Richard Sage (son) Resuscitation status Full Code Advanced Directive on File No Past Medical/Surgical History Past Medical/Surgical History: (1) GI bleed (2) ATN (acute tubular necrosis) (3) Anemia (4) Acute and chronic respiratory failure (5) Black tarry stools (6) Pulmonary edema (7) History of CVA (cerebrovascular accident) (8) CAD (coronary artery disease) (9) Right hemiplegia (10) Diabetes mellitus (11) Hypertensive heart disease (12) 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 (13) Nosocomial pneumonia (14) At high risk for aspiration (15) Acute metabolic encephalopathy (16) UTI (urinary tract infection) (17) Pulmonary hypertension (18) Acute respiratory failure (19) Anemia in chronic kidney disease (CKD) (20) Renal failure (ARF), acute on chronic (21) Chronic respiratory failure (22) G tube feedings Review of Systems Review of Symptoms General ROS: no weight loss or fever Psychological ROS: no depression or mood changes, no memory loss Ophthalmic ROS: no visual changes or eye irritation ENT ROS: no nasal congestion, hearing loss, dizziness Allergy and Immunology ROS: no allergic symptoms or urticaria Hematological and Lymphatic ROS: no swollen glands, unusual bleeding or bruising Endocrine ROS: no polyuria, polydipsia, weight changes, temperature intolerance Respiratory ROS: no cough, shortness of breath, or wheezing Cardiovascular ROS: no chest pain or dyspnea on exertion Gastrointestinal ROS: denies abdominal pain, no bright red blood in stool. Musculoskeletal ROS: no myalgias or arthralgias Neurological ROS: no TIA or stroke symptoms Dermatological ROS: no new or changing skin lesions, rashes or pruritis difficult to obtain given medical condition. family helps with ros Physical Exam Physical Exam General appearance: alert, cooperative, no distress, appears stated age Head: Normocephalic, without obvious abnormality, atraumatic Eyes: conjunctivae/corneas clear. PERRL, EOM's intact. Fundi benign Throat: Lips, mucosa, and tongue normal. Teeth and gums normal Neck: supple, symmetrical, trachea midline, no adenopathy, thyroid: not enlarged, symmetric, no tenderness/mass/nodules, no carotid bruit and no JVD Lungs: clear to auscultation bilaterally Heart: regular rate and rhythm, S1, S2 normal, no murmur, click, rub or gallop Abdomen: soft, non-tender. Bowel sounds normal. No masses, no organomegaly Extremities: extremities normal, atraumatic, no cyanosis or edema Pulses: 2+ and symmetric Skin: Skin color, texture, turgor normal. No rashes or lesions Neurologic: Grossly normal Last 24 Hour Vital Signs Date Time Temp Pulse Resp B/P (MAP) Pulse Ox O2 Delivery O2 Flow Rate FiO2 06/23/19 14:48 69 18 40 06/23/19 13:22 193/97 06/23/19 13:13 57 16 40 06/23/19 12:00 40 06/23/19 12:00 62 06/23/19 12:00 98.0 65 16 189/99 (129) 100 06/23/19 11:20 61 16 40 06/23/19 09:31 178/94 06/23/19 09:06 68 16 40 06/23/19 09:00 Mechanical Ventilator 06/23/19 08:00 66 06/23/19 08:00 98.5 68 16 178/94 (122) 100 06/23/19 08:00 40 06/23/19 06:58 63 16 40 06/23/19 05:21 80 16 40 06/23/19 04:00 97.9 78 16 143/77 (99) 99 06/23/19 04:00 40 06/23/19 03:25 60 06/23/19 02:41 72 16 40 06/23/19 01:09 65 16 40 06/23/19 00:00 98.5 63 18 152/70 (97) 97 06/22/19 23:26 56 06/22/19 22:40 76 16 40 06/22/19 21:08 68 16 40 06/22/19 21:00 Mechanical Ventilator 06/22/19 20:00 98.0 68 16 133/80 (97) 99 06/22/19 20:00 40 06/22/19 19:34 71 06/22/19 18:43 77 16 40 06/22/19 17:17 61 06/22/19 17:06 70 16 40 Intake and Output 06/22/19 06/23/19 19:00 07:00 Intake Total 100 ml Output Total 350 ml 250 ml Balance -250 ml -250 ml Intake Free Water 100 ml Output Urine Total 350 ml 250 ml # Voids 1 # Bowel Movements 1 1 Laboratory Tests Test 06/23/19 03:41 White Blood Count 8.1 K/UL (4.8-10.8) Red Blood Count 3.04 M/UL (4.20-5.40) L Hemoglobin 9.4 G/DL (12.0-16.0) L Hematocrit 30.1 % (37.0-47.0) L Mean Corpuscular Volume 99 FL (80-99) Mean Corpuscular Hemoglobin 31.0 PG (27.0-31.0) Mean Corpuscular Hemoglobin Concent 31.2 G/DL (32.0-36.0) L Red Cell Distribution Width 19.9 % (11.6-14.8) H Platelet Count 178 K/UL (150-450) Mean Platelet Volume 7.9 FL (6.5-10.1) Neutrophils (%) (Auto) 58.9 % (45.0-75.0) Lymphocytes (%) (Auto) 31.8 % (20.0-45.0) Monocytes (%) (Auto) 4.7 % (1.0-10.0) Eosinophils (%) (Auto) 3.6 % (0.0-3.0) H Basophils (%) (Auto) 1.1 % (0.0-2.0) Prothrombin Time 11.8 SEC (9.30-11.50) H Prothromb Time International Ratio 1.1 (0.9-1.1) Activated Partial Thromboplast Time 29 SEC (23-33) Sodium Level 146 MMOL/L (136-145) H Potassium Level 4.8 MMOL/L (3.5-5.1) Chloride Level 113 MMOL/L (98-107) H Carbon Dioxide Level 21 MMOL/L (21-32) Anion Gap 12 mmol/L (5-15) Blood Urea Nitrogen 50 mg/dL (7-18) H Creatinine 0.8 MG/DL (0.55-1.30) Estimat Glomerular Filtration Rate mL/min (>60) Glucose Level 81 MG/DL (74-106) Calcium Level 9.3 MG/DL (8.5-10.1) Phosphorus Level 4.0 MG/DL (2.5-4.9) Magnesium Level 2.1 MG/DL (1.8-2.4) Total Bilirubin 0.7 MG/DL (0.2-1.0) Aspartate Amino Transf (AST/SGOT) 31 U/L (15-37) Alanine Aminotransferase (ALT/SGPT) 10 U/L (12-78) L Alkaline Phosphatase 65 U/L (46-116) Total Protein 6.9 G/DL (6.4-8.2) Albumin 2.1 G/DL (3.4-5.0) L Globulin 4.8 g/dL Albumin/Globulin Ratio 0.4 (1.0-2.7) L Height (Feet): 5 Height (Inches): 3.00 Weight (Pounds): 213 Medications Current Medications Medications (Trade) Dose Ordered Sig/Kenisha Route PRN Reason Start Time Stop Time Status Last Admin Dose Admin Chlorhexidine Gluconate (Izzy-Hex 2%) 1 applic DAILY@2000 TOPIC 06/21/19 20:00 07/21/19 19:59 Clonidine HCl (Catapres Tab) 0.1 mg Q6H PRN GT SBP >160 06/22/19 05:00 07/22/19 04:59 06/23/19 09:31 Dextrose (Dextrose 50%) 25 ml Q30M PRN IV Hypoglycemia 06/21/19 16:00 07/21/19 15:59 Dextrose (Dextrose 50%) 50 ml Q30M PRN IV Hypoglycemia 06/21/19 16:00 07/21/19 15:59 Dextrose/Sodium Chloride 1,000 ml @ 50 mls/hr Q20H IV 06/21/19 15:46 07/21/19 15:45 06/23/19 07:23 Enalaprilat (Vasotec) 2.5 mg Q4H PRN IV sbp more than 200 06/23/19 12:45 07/23/19 12:44 Heparin Sodium (Porcine) (Heparin 5000 units/ml) 5,000 units EVERY 12 HOURS SUBQ 06/21/19 21:00 07/21/19 20:59 Hydralazine HCl (Apresoline) 20 mg Q4H PRN IV sbp more than 160 06/23/19 12:45 07/23/19 12:44 06/23/19 13:22 Iron Sucrose 100 mg/Sodium Chloride 60 ml @ 240 mls/hr BEDTIME IV 06/23/19 21:00 06/27/19 21:14 Labetalol HCl (Normodyne) 20 mg Q1H PRN IV sbo more than 180 06/23/19 12:45 07/23/19 12:44 Lorazepam (Ativan 2mg/ml 1ml) 0.5 mg Q4H PRN IV For Anxiety 06/21/19 16:00 06/28/19 15:59 Morphine Sulfate (Morphine Sulfate) 1 mg Q4H PRN IVP For Pain 06/21/19 16:00 06/28/19 15:59 Ondansetron HCl (Zofran) 4 mg Q6H PRN IVP Nausea & Vomiting 06/21/19 16:00 07/21/19 15:59 Polyethylene Glycol/ Electrolytes (Nulytely) 4,000 ml ONCE GT 06/23/19 14:00 06/23/19 23:59 06/23/19 15:37 Assessment/Plan Problem List: (1) Decubitus skin ulcer Assessment & Plan: Pt presented on admission with multiple pressure injuries. Skin Assessed under collar of trach and no evidence of skin breakdown noted. Full thickness pressure injury sacrococcygeal area .base of wound obscured due to size and shape of wound. Small amt non-odorous serous exudate noted. Darker skin tone without induration periwound.(L)0.8cm x (W)0.7cm x (D)0.9cm. Non-blanchable erythema with maroon area centrally R heel. Base of wound is fluctuant. L heel boggy but blanchable. No other skin concerns noted. Tx.Plan: Cleanse wound sacrococcygeal area with saline. Apply Therahoney. Apply Moisture Barrier periwound. Cover with Optifoam drsg. Change every 3 days and prn. Apply Cavilon Skin Barrier to both heels. Cover each heel with Optifoam drsg .Change every 7 days and prn. APM/MARIA INES Mattress overlay. Reposition at least every 2hours or as tolerated. Off-load heels with pillow. ICD Codes: L89.90 - Pressure ulcer of unspecified site, unspecified stage SNOMED: 752283198 (2) GI bleed Assessment & Plan: currently receiving bowel prep for scope tomorrow will await scope by GI to eval possible etiology of bleeding AM labs thank you will follow with recs ICD Codes: K92.2 - Gastrointestinal hemorrhage, unspecified SNOMED: 55723406 (3) Black tarry stools ICD Codes: K92.1 - Melena SNOMED: 656469200 (4) G tube feedings ICD Codes: Z93.1 - Gastrostomy status SNOMED: 131675926, [id number], [id number] Devaughn Marin Jun 23, 2019 16:17
[2019-06-23 20:00] VITALS: BP 165/86
[2019-06-23] MEDS: Dyna-Hex 2% Top Sol 2oz TOPIC SCH (20:11)
[2019-06-23] MEDS ORDERED: Iron Sucrose 100 MG in NS 55 ML IV SCH (21:00)
[2019-06-24] VITALS (7 sets, daily range): BP systolic 148–182; BP diastolic 74–98
[2019-06-24] MEDS: D5 1/2NS 1,000 ML IV SCH (04:20)
[2019-06-24 05:10] LABS: BASOPHILS % (AUTO) 0.7 % (0.0-2.0); EOSINOPHILS % (AUTO) 2.3 % (0.0-3.0); HEMATOCRIT 30.6 % (37.0-47.0); HEMOGLOBIN 9.4 G/DL (12.0-16.0); LYMPHOCYTES % (AUTO) 19.5 % (20.0-45.0); MEAN CORPUSCULAR VOLUME 99 FL (80-99); MONOCYTES % (AUTO) 6.4 % (1.0-10.0); NEUTROPHILS % (AUTO) 71.1 % (45.0-75.0); PLATELET COUNT 190 K/UL (150-450); RED BLOOD COUNT 3.09 M/UL (4.20-5.40); RED CELL DISTRIBUTION WIDTH 19.6 % (11.6-14.8); WHITE BLOOD COUNT 6.8 K/UL (4.8-10.8)
[2019-06-24 06:02] LABS: ANION GAP 14 mmol/L (5-15); BLOOD UREA NITROGEN 38 mg/dL (7-18); CALCIUM 9.2 MG/DL (8.5-10.1); CARBON DIOXIDE 19 MMOL/L (21-32); CHLORIDE 111 MMOL/L (98-107); CREATININE 0.8 MG/DL (0.55-1.30); POTASSIUM 4.1 MMOL/L (3.5-5.1); SODIUM 144 MMOL/L (136-145)
[2019-06-24] MEDS: Heparin 5000 units/ml inj SUBQ SCH (09:00)
--- NOTE | 2019-06-24 10:06 | Pulmonolgy Critical Care Note ---
Critical Care - Asmt/Plan Problems: (1) Acute and chronic respiratory failure (2) GI bleed (3) Pulmonary edema (4) Anemia in chronic kidney disease (CKD) (5) ATN (acute tubular necrosis) (6) 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 (7) CAD (coronary artery disease) (8) History of CVA (cerebrovascular accident) (9) Diabetes mellitus Respiratory: adjust tidal volume, monitor respiratory rate, adjust FIO2, CXR Cardiac: continue pressors, continue to monitor HR/BP Renal: F/U I&O, keep IV fluid, check electrolytes Infectious Disease: check cultures Gastrointestinal: continue feedings/current rate, hold feedings Endocrine: check TSH, check HgA1C Hematologic: transfuse if hgb<8.5 Neurologic: PRN Ativan, keep patient comfortable Affect: PRN ativan Prophylaxis: Heparin Time Spent (Minutes): 40 Notes Reviewed: cardio, renal Discussed with: nurses, consultants, pillowcase turnerhog confinement system manager - Objective Last 24 Hour Vital Signs Date Time Temp Pulse Resp B/P (MAP) Pulse Ox O2 Delivery O2 Flow Rate FiO2 06/24/19 09:25 85 16 40 40 06/24/19 09:00 Mechanical Ventilator 06/24/19 08:00 40 06/24/19 08:00 98.1 84 20 150/80 (103) 98 06/24/19 07:36 82 06/24/19 07:13 89 20 40 40 06/24/19 05:20 88 17 40 40 06/24/19 04:00 40 06/24/19 04:00 77 06/24/19 04:00 97.7 86 16 154/76 (102) 98 06/24/19 04:00 Mechanical Ventilator 06/24/19 03:20 84 20 40 40 06/24/19 01:10 68 16 40 40 06/24/19 00:00 97.7 98 16 162/98 (119) 98 06/24/19 00:00 Mechanical Ventilator 06/24/19 00:00 40 06/24/19 00:00 85 06/23/19 23:20 74 16 40 40 06/23/19 21:24 66 16 40 40 06/23/19 21:00 Mechanical Ventilator 06/23/19 20:00 89 06/23/19 20:00 40 06/23/19 20:00 98.3 82 16 165/86 (112) 98 06/23/19 19:06 83 16 40 40 06/23/19 18:20 166/99 06/23/19 18:00 40 06/23/19 17:23 85 16 40 06/23/19 16:00 98.3 134 22 142/77 (98) 93 06/23/19 16:00 79 06/23/19 14:48 69 18 40 06/23/19 13:22 193/97 06/23/19 13:13 57 16 40 06/23/19 12:00 40 06/23/19 12:00 62 06/23/19 12:00 98.0 65 16 189/99 (129) 100 06/23/19 11:20 61 16 40 Status: awake Condition: critical, improving HEENT: atraumatic Neck: full ROM Lungs: chest wall tender Heart: HR/BP stable, HR/BP unstable Abdomen: soft, non-tender, feeding tube Extremities: edema Decubiti: location Micro: Microbiology Date/Time Source Procedure Growth Status 06/23/19 20:30 Sputum Gram Stain - Final Resulted 06/23/19 20:30 Sputum Sputum Culture Pending Resulted 06/21/19 20:30 Nasal Nares MRSA Culture - Final NO METHICILLIN RESISTANT STAPH AUREUS... Complete 06/21/19 20:30 Rectum VRE Culture - Final Enterococcus Faecium - Vre Complete Accucheck: 105 Critical Care - Subjective ROS Limited/Unobtainable: Yes Condition: critical EKG Rhythm: Sinus Rhythm FI02: 40 Vent Support Breath Rate: 16 Vent Support Mode: AC Vent Tidal Volume: 500 Sputum Amount: Small PEEP: 5.0 PIP: 37 I&O: Intake and Output 06/23/19 06/24/19 19:00 07:00 Intake Total 1610 ml 593.333 ml Output Total 400 ml 200 ml Balance 1210 ml 393.333 ml Intake Free Water 1260 ml IV Total 350 ml 593.333 ml Output Urine Total 400 ml 200 ml # Bowel Movements 2 3 CXR: no change Labs: Laboratory Tests Test 06/24/19 04:15 White Blood Count 6.8 K/UL (4.8-10.8) Red Blood Count 3.09 M/UL (4.20-5.40) L Hemoglobin 9.4 G/DL (12.0-16.0) L Hematocrit 30.6 % (37.0-47.0) L Mean Corpuscular Volume 99 FL (80-99) Mean Corpuscular Hemoglobin 30.5 PG (27.0-31.0) Mean Corpuscular Hemoglobin Concent 30.8 G/DL (32.0-36.0) L Red Cell Distribution Width 19.6 % (11.6-14.8) H Platelet Count 190 K/UL (150-450) Mean Platelet Volume 8.0 FL (6.5-10.1) Neutrophils (%) (Auto) 71.1 % (45.0-75.0) Lymphocytes (%) (Auto) 19.5 % (20.0-45.0) L Monocytes (%) (Auto) 6.4 % (1.0-10.0) Eosinophils (%) (Auto) 2.3 % (0.0-3.0) Basophils (%) (Auto) 0.7 % (0.0-2.0) Sodium Level 144 MMOL/L (136-145) Potassium Level 4.1 MMOL/L (3.5-5.1) Chloride Level 111 MMOL/L (98-107) H Carbon Dioxide Level 19 MMOL/L (21-32) L Anion Gap 14 mmol/L (5-15) Blood Urea Nitrogen 38 mg/dL (7-18) H Creatinine 0.8 MG/DL (0.55-1.30) Estimat Glomerular Filtration Rate mL/min (>60) Glucose Level 117 MG/DL (74-106) H Calcium Level 9.2 MG/DL (8.5-10.1) Tony Springer MD Jun 24, 2019 10:06
--- NOTE | 2019-06-24 11:18 | Hematology/Onc Progress Note ---
Assessment/Plan Assessment/Plan Assessment/Plan: # Anemia of chronic disease likely multifactorial process, in the past has had anemia as well --> w/u reveals ferritin 1500-->333-->222, with esr and crp are elevated --> on abx at this time, ID recs as needed --> smear has been reviewed, no schistocytes noted --> monitor for bleed, rior admissions has recieved blood --> hgb goal >7 and transfuse as needed --> cea is 4.2 is wnl --> hgb 6.4-->8.9-->9.4 --> gi procedure on 06/09, didn't show localizing source, as per gi recs --> imaging has been reviewed --> per gi may need repeat colo --> given rapid drop in ferritin, begin iv iron x 5 days # REMY on CKD --> per renal recs # Recent PNA --> s/p abx with Rx # HyperGlycemia / DM 24 H urine protein check 2.4 gram --> dm management # Right Esvin due to CVA --> ok to resume plafix # HTN is on metp --> sbp goal <150 # chronic resp failure s/p trach/vent dependant --> trach on 05/03/19 # Dysphagia s/p PEG # Nonverbal status # SNF resident # DVT ppx with heparin sq Time of note does not necessarily correspond to when patient was seen. Greatly appreciate consultation. Subjective Allergies: Coded Allergies: No Known Allergies (Unverified , 06/21/19) Subjective 06/23: labs have been reviewed, ferritin is 222, no bleeding reported, no f/c 06/24: no pain, no distress, no fevers or chills, on vent, colonoscopy today Objective Objective Current Medications Medications (Trade) Dose Ordered Sig/Kenisha Route PRN Reason Start Time Stop Time Status Last Admin Dose Admin Chlorhexidine Gluconate (Izzy-Hex 2%) 1 applic DAILY@1999 TOPIC 06/21/19 20:00 07/21/19 19:59 06/23/19 20:11 Clonidine HCl (Catapres Tab) 0.1 mg Q6H PRN GT SBP >160 06/22/19 05:00 07/22/19 04:59 06/23/19 18:20 Dextrose (Dextrose 50%) 25 ml Q30M PRN IV Hypoglycemia 06/21/19 16:00 07/21/19 15:59 Dextrose (Dextrose 50%) 50 ml Q30M PRN IV Hypoglycemia 06/21/19 16:00 07/21/19 15:59 Dextrose/Sodium Chloride 1,000 ml @ 50 mls/hr Q20H IV 06/21/19 15:46 07/21/19 15:45 06/24/19 04:20 Enalaprilat (Vasotec) 2.5 mg Q4H PRN IV sbp more than 200 06/23/19 12:45 07/23/19 12:44 Heparin Sodium (Porcine) (Heparin 5000 units/ml) 5,000 units EVERY 12 HOURS SUBQ 06/21/19 21:00 07/21/19 20:59 Hydralazine HCl (Apresoline) 20 mg Q4H PRN IV sbp more than 160 06/23/19 12:45 07/23/19 12:44 06/23/19 13:22 Iron Sucrose 100 mg/Sodium Chloride 60 ml @ 240 mls/hr BEDTIME IV 06/23/19 21:00 06/27/19 21:14 06/23/19 20:11 Labetalol HCl (Normodyne) 20 mg Q1H PRN IV sbo more than 180 06/23/19 12:45 07/23/19 12:44 Lorazepam (Ativan 2mg/ml 1ml) 0.5 mg Q4H PRN IV For Anxiety 06/21/19 16:00 06/28/19 15:59 Morphine Sulfate (Morphine Sulfate) 1 mg Q4H PRN IVP For Pain 06/21/19 16:00 06/28/19 15:59 06/23/19 20:11 Ondansetron HCl (Zofran) 4 mg Q6H PRN IVP Nausea & Vomiting 06/21/19 16:00 07/21/19 15:59 Last 24 Hour Vital Signs Date Time Temp Pulse Resp B/P (MAP) Pulse Ox O2 Delivery O2 Flow Rate FiO2 06/24/19 09:25 85 16 40 40 06/24/19 09:00 Mechanical Ventilator 06/24/19 08:00 40 06/24/19 08:00 98.1 84 20 150/80 (103) 98 06/24/19 07:36 82 06/24/19 07:13 89 20 40 40 06/24/19 05:20 88 17 40 40 06/24/19 04:00 40 06/24/19 04:00 77 06/24/19 04:00 97.7 86 16 154/76 (102) 98 06/24/19 04:00 Mechanical Ventilator 06/24/19 03:20 84 20 40 40 06/24/19 01:10 68 16 40 40 06/24/19 00:00 97.7 98 16 162/98 (119) 98 06/24/19 00:00 Mechanical Ventilator 06/24/19 00:00 40 06/24/19 00:00 85 06/23/19 23:20 74 16 40 40 06/23/19 21:24 66 16 40 40 06/23/19 21:00 Mechanical Ventilator 06/23/19 20:00 89 06/23/19 20:00 40 06/23/19 20:00 98.3 82 16 165/86 (112) 98 06/23/19 19:06 83 16 40 40 06/23/19 18:20 166/99 06/23/19 18:00 40 06/23/19 17:23 85 16 40 06/23/19 16:00 98.3 134 22 142/77 (98) 93 06/23/19 16:00 79 06/23/19 14:48 69 18 40 06/23/19 13:22 193/97 06/23/19 13:13 57 16 40 06/23/19 12:00 40 06/23/19 12:00 62 06/23/19 12:00 98.0 65 16 189/99 (129) 100 06/23/19 11:20 61 16 40 06/23/19 09:31 178/94 06/23/19 09:06 68 16 40 06/23/19 09:00 Mechanical Ventilator 06/23/19 08:00 66 06/23/19 08:00 98.5 68 16 178/94 (122) 100 06/23/19 08:00 40 06/23/19 06:58 63 16 40 06/23/19 05:21 80 16 40 06/23/19 04:00 97.9 78 16 143/77 (99) 99 06/23/19 04:00 40 06/23/19 03:25 60 06/23/19 02:41 72 16 40 06/23/19 01:09 65 16 40 06/23/19 00:00 98.5 63 18 152/70 (97) 97 06/22/19 23:26 56 06/22/19 22:40 76 16 40 06/22/19 21:08 68 16 40 06/22/19 21:00 Mechanical Ventilator 06/22/19 20:00 98.0 68 16 133/80 (97) 99 06/22/19 20:00 40 06/22/19 19:34 71 06/22/19 18:43 77 16 40 06/22/19 17:17 61 06/22/19 17:06 70 16 40 06/22/19 16:00 40 06/22/19 16:00 99.0 78 16 156/88 (110) 99 06/22/19 14:58 62 16 40 06/22/19 13:04 88 06/22/19 12:37 64 16 40 06/22/19 12:00 40 06/22/19 12:00 98.5 87 18 158/90 (112) 99 Intake and Output 06/23/19 06/24/19 19:00 07:00 Intake Total 1610 ml 593.333 ml Output Total 400 ml 200 ml Balance 1210 ml 393.333 ml Intake Free Water 1260 ml IV Total 350 ml 593.333 ml Output Urine Total 400 ml 200 ml # Bowel Movements 2 3 Labs Test 06/21/19 14:20 06/21/19 15:30 06/22/19 03:20 06/22/19 09:00 White Blood Count 8.9 K/UL (4.8-10.8) 7.2 K/UL (4.8-10.8) Red Blood Count 2.08 M/UL (4.20-5.40) 2.90 M/UL (4.20-5.40) Hemoglobin 6.4 G/DL (12.0-16.0) 8.9 G/DL (12.0-16.0) Hematocrit 20.9 % (37.0-47.0) 28.6 % (37.0-47.0) Mean Corpuscular Volume 100 FL (80-99) 99 FL (80-99) Mean Corpuscular Hemoglobin 30.6 PG (27.0-31.0) 30.7 PG (27.0-31.0) Mean Corpuscular Hemoglobin Concent 30.5 G/DL (32.0-36.0) 31.1 G/DL (32.0-36.0) Red Cell Distribution Width 21.1 % (11.6-14.8) 19.3 % (11.6-14.8) Platelet Count 174 K/UL (150-450) 164 K/UL (150-450) Mean Platelet Volume 7.7 FL (6.5-10.1) 8.6 FL (6.5-10.1) Neutrophils (%) (Auto) % (45.0-75.0) 57.8 % (45.0-75.0) Lymphocytes (%) (Auto) % (20.0-45.0) 30.6 % (20.0-45.0) Monocytes (%) (Auto) % (1.0-10.0) 5.9 % (1.0-10.0) Eosinophils (%) (Auto) % (0.0-3.0) 4.6 % (0.0-3.0) Basophils (%) (Auto) % (0.0-2.0) 1.2 % (0.0-2.0) Differential Total Cells Counted 100 Neutrophils % (Manual) 62 % (45-75) Lymphocytes % (Manual) 31 % (20-45) Monocytes % (Manual) 4 % (1-10) Eosinophils % (Manual) 1 % (0-3) Basophils % (Manual) 2 % (0-2) Band Neutrophils 0 % (0-8) Platelet Estimate Adequate Platelet Morphology Normal Polychromasia 1+ Hypochromasia 3+ Anisocytosis 2+ Macrocytosis 1+ Prothrombin Time 10.8 SEC (9.30-11.50) Prothromb Time International Ratio 1.0 (0.9-1.1) Activated Partial Thromboplast Time 28 SEC (23-33) Sodium Level 149 MMOL/L (136-145) 148 MMOL/L (136-145) Potassium Level 4.9 MMOL/L (3.5-5.1) 4.9 MMOL/L (3.5-5.1) Chloride Level 112 MMOL/L (98-107) 114 MMOL/L (98-107) Carbon Dioxide Level 26 MMOL/L (21-32) 21 MMOL/L (21-32) Anion Gap 12 mmol/L (5-15) 13 mmol/L (5-15) Blood Urea Nitrogen 65 mg/dL (7-18) 57 mg/dL (7-18) Creatinine 1.1 MG/DL (0.55-1.30) 0.9 MG/DL (0.55-1.30) Estimat Glomerular Filtration Rate mL/min (>60) mL/min (>60) Glucose Level 102 MG/DL (74-106) 76 MG/DL (74-106) Calcium Level 9.2 MG/DL (8.5-10.1) 9.2 MG/DL (8.5-10.1) Total Bilirubin 0.4 MG/DL (0.2-1.0) 0.5 MG/DL (0.2-1.0) Aspartate Amino Transf (AST/SGOT) 16 U/L (15-37) 23 U/L (15-37) Alanine Aminotransferase (ALT/SGPT) 8 U/L (12-78) 10 U/L (12-78) Alkaline Phosphatase 81 U/L (46-116) 67 U/L (46-116) Total Protein 7.1 G/DL (6.4-8.2) 6.8 G/DL (6.4-8.2) Albumin 2.0 G/DL (3.4-5.0) 2.1 G/DL (3.4-5.0) Globulin 5.1 g/dL 4.7 g/dL Albumin/Globulin Ratio 0.4 (1.0-2.7) 0.4 (1.0-2.7) Lipase 133 U/L (73-393) Urine Color Pale yellow Urine Appearance Clear Urine pH 8 (4.5-8.0) Urine Specific [place] 1.010 (1.005-1.035) Urine Protein 3+ (NEGATIVE) Urine Glucose (UA) Negative (NEGATIVE) Urine Ketones Negative (NEGATIVE) Urine Blood 3+ (NEGATIVE) Urine Nitrite Negative (NEGATIVE) Urine Bilirubin Negative (NEGATIVE) Urine Urobilinogen 1 MG/DL (0.0-1.0) Urine Leukocyte Esterase Negative (NEGATIVE) Urine RBC 2-4 /HPF (0 - 2) Urine WBC 0-2 /HPF (0 - 2) Urine Squamous Epithelial Cells Few /LPF (NONE/OCC) Urine Bacteria Few /HPF (NONE) Ferritin 222 NG/ML (8-388) Stool Occult Blood Positive (NEGATIVE) Test 06/23/19 03:41 06/24/19 04:15 White Blood Count 8.1 K/UL (4.8-10.8) 6.8 K/UL (4.8-10.8) Red Blood Count 3.04 M/UL (4.20-5.40) 3.09 M/UL (4.20-5.40) Hemoglobin 9.4 G/DL (12.0-16.0) 9.4 G/DL (12.0-16.0) Hematocrit 30.1 % (37.0-47.0) 30.6 % (37.0-47.0) Mean Corpuscular Volume 99 FL (80-99) 99 FL (80-99) Mean Corpuscular Hemoglobin 31.0 PG (27.0-31.0) 30.5 PG (27.0-31.0) Mean Corpuscular Hemoglobin Concent 31.2 G/DL (32.0-36.0) 30.8 G/DL (32.0-36.0) Red Cell Distribution Width 19.9 % (11.6-14.8) 19.6 % (11.6-14.8) Platelet Count 178 K/UL (150-450) 190 K/UL (150-450) Mean Platelet Volume 7.9 FL (6.5-10.1) 8.0 FL (6.5-10.1) Neutrophils (%) (Auto) 58.9 % (45.0-75.0) 71.1 % (45.0-75.0) Lymphocytes (%) (Auto) 31.8 % (20.0-45.0) 19.5 % (20.0-45.0) Monocytes (%) (Auto) 4.7 % (1.0-10.0) 6.4 % (1.0-10.0) Eosinophils (%) (Auto) 3.6 % (0.0-3.0) 2.3 % (0.0-3.0) Basophils (%) (Auto) 1.1 % (0.0-2.0) 0.7 % (0.0-2.0) Prothrombin Time 11.8 SEC (9.30-11.50) Prothromb Time International Ratio 1.1 (0.9-1.1) Activated Partial Thromboplast Time 29 SEC (23-33) Sodium Level 146 MMOL/L (136-145) 144 MMOL/L (136-145) Potassium Level 4.8 MMOL/L (3.5-5.1) 4.1 MMOL/L (3.5-5.1) Chloride Level 113 MMOL/L (98-107) 111 MMOL/L (98-107) Carbon Dioxide Level 21 MMOL/L (21-32) 19 MMOL/L (21-32) Anion Gap 12 mmol/L (5-15) 14 mmol/L (5-15) Blood Urea Nitrogen 50 mg/dL (7-18) 38 mg/dL (7-18) Creatinine 0.8 MG/DL (0.55-1.30) 0.8 MG/DL (0.55-1.30) Estimat Glomerular Filtration Rate mL/min (>60) mL/min (>60) Glucose Level 81 MG/DL (74-106) 117 MG/DL (74-106) Calcium Level 9.3 MG/DL (8.5-10.1) 9.2 MG/DL (8.5-10.1) Phosphorus Level 4.0 MG/DL (2.5-4.9) Magnesium Level 2.1 MG/DL (1.8-2.4) Total Bilirubin 0.7 MG/DL (0.2-1.0) Aspartate Amino Transf (AST/SGOT) 31 U/L (15-37) Alanine Aminotransferase (ALT/SGPT) 10 U/L (12-78) Alkaline Phosphatase 65 U/L (46-116) Total Protein 6.9 G/DL (6.4-8.2) Albumin 2.1 G/DL (3.4-5.0) Globulin 4.8 g/dL Albumin/Globulin Ratio 0.4 (1.0-2.7) Micro Microbiology Date/Time Source Procedure Growth Status 06/23/19 20:30 Sputum Gram Stain - Final Resulted 06/23/19 20:30 Sputum Sputum Culture Pending Resulted Height (Feet): 5 Height (Inches): 3.00 Weight (Pounds): 211 Objective General: no apparent distress HEENT: PERRL/EOMI, normal ENT inspection Neck: supple Respiratory: normal breath sounds, no respiratory distress Cardiovascular: normal rate Gastrointestinal: normal inspection, non tender, soft, normal bowel sounds, non -distended Genitourinary: no CVA tenderness Neurologic: normal inspection Skin: normal inspection, normal color, no rash, warm/dry, palpation normal, well hydrated Steven Norton MD Jun 24, 2019 11:18
--- NOTE | 2019-06-24 12:11 | Surgery Progress Note ---
Surgery Progress Note Subjective Additional Comments no acute events exam stable plan for scope today labs stable dressings changed h/h noted Objective Last 24 Hour Vital Signs Date Time Temp Pulse Resp B/P (MAP) Pulse Ox O2 Delivery O2 Flow Rate FiO2 06/24/19 11:19 67 16 40 40 06/24/19 09:25 85 16 40 40 06/24/19 09:00 Mechanical Ventilator 06/24/19 08:00 40 06/24/19 08:00 98.1 84 20 150/80 (103) 98 06/24/19 07:36 82 06/24/19 07:13 89 20 40 40 06/24/19 05:20 88 17 40 40 06/24/19 04:00 40 06/24/19 04:00 77 06/24/19 04:00 97.7 86 16 154/76 (102) 98 06/24/19 04:00 Mechanical Ventilator 06/24/19 03:20 84 20 40 40 06/24/19 01:10 68 16 40 40 06/24/19 00:00 97.7 98 16 162/98 (119) 98 06/24/19 00:00 Mechanical Ventilator 06/24/19 00:00 40 06/24/19 00:00 85 06/23/19 23:20 74 16 40 40 06/23/19 21:24 66 16 40 40 06/23/19 21:00 Mechanical Ventilator 06/23/19 20:00 89 06/23/19 20:00 40 06/23/19 20:00 98.3 82 16 165/86 (112) 98 06/23/19 19:06 83 16 40 40 06/23/19 18:20 166/99 06/23/19 18:00 40 06/23/19 17:23 85 16 40 06/23/19 16:00 98.3 134 22 142/77 (98) 93 06/23/19 16:00 79 06/23/19 14:48 69 18 40 06/23/19 13:22 193/97 06/23/19 13:13 57 16 40 I&O Intake and Output 06/23/19 06/24/19 19:00 07:00 Intake Total 1610 ml 593.333 ml Output Total 400 ml 200 ml Balance 1210 ml 393.333 ml Intake Free Water 1260 ml IV Total 350 ml 593.333 ml Output Urine Total 400 ml 200 ml # Bowel Movements 2 3 Dressing: saturated Cardiovascular: RSR Respiratory: clear Abdomen: soft, non-tender, present bowel sounds Extremities: no cyanosis, other Laboratory Tests Test 06/24/19 04:15 White Blood Count 6.8 K/UL (4.8-10.8) Red Blood Count 3.09 M/UL (4.20-5.40) L Hemoglobin 9.4 G/DL (12.0-16.0) L Hematocrit 30.6 % (37.0-47.0) L Mean Corpuscular Volume 99 FL (80-99) Mean Corpuscular Hemoglobin 30.5 PG (27.0-31.0) Mean Corpuscular Hemoglobin Concent 30.8 G/DL (32.0-36.0) L Red Cell Distribution Width 19.6 % (11.6-14.8) H Platelet Count 190 K/UL (150-450) Mean Platelet Volume 8.0 FL (6.5-10.1) Neutrophils (%) (Auto) 71.1 % (45.0-75.0) Lymphocytes (%) (Auto) 19.5 % (20.0-45.0) L Monocytes (%) (Auto) 6.4 % (1.0-10.0) Eosinophils (%) (Auto) 2.3 % (0.0-3.0) Basophils (%) (Auto) 0.7 % (0.0-2.0) Sodium Level 144 MMOL/L (136-145) Potassium Level 4.1 MMOL/L (3.5-5.1) Chloride Level 111 MMOL/L (98-107) H Carbon Dioxide Level 19 MMOL/L (21-32) L Anion Gap 14 mmol/L (5-15) Blood Urea Nitrogen 38 mg/dL (7-18) H Creatinine 0.8 MG/DL (0.55-1.30) Estimat Glomerular Filtration Rate mL/min (>60) Glucose Level 117 MG/DL (74-106) H Calcium Level 9.2 MG/DL (8.5-10.1) Plan Problems: (1) Decubitus skin ulcer Assessment & Plan: Pt presented on admission with multiple pressure injuries. Skin Assessed under collar of trach and no evidence of skin breakdown noted. Full thickness pressure injury sacrococcygeal area .base of wound obscured due to size and shape of wound. Small amt non-odorous serous exudate noted. Darker skin tone without induration periwound.(L)0.8cm x (W)0.7cm x (D)0.9cm. Non-blanchable erythema with maroon area centrally R heel. Base of wound is fluctuant. L heel boggy but blanchable. No other skin concerns noted. Tx.Plan: Cleanse wound sacrococcygeal area with saline. Apply Therahoney. Apply Moisture Barrier periwound. Cover with Optifoam drsg. Change every 3 days and prn. Apply Cavilon Skin Barrier to both heels. Cover each heel with Optifoam drsg .Change every 7 days and prn. APM/MARIA INES Mattress overlay. Reposition at least every 2hours or as tolerated. Off-load heels with pillow. (2) GI bleed Assessment & Plan: currently receiving bowel prep for scope tomorrow will await scope by GI to eval possible etiology of bleeding AM labs thank you will follow with recs (3) Black tarry stools (4) G tube feedings Devaughn Marin Jun 24, 2019 12:11
--- NOTE | 2019-06-24 14:06 | General Progress Note ---
Assessment/Plan Problem List: (1) Acute and chronic respiratory failure ICD Codes: J96.20 - Acute and chronic respiratory failure, unspecified whether with hypoxia or hypercapnia SNOMED: 73797036 (2) Black tarry stools ICD Codes: K92.1 - Melena SNOMED: 311194337 (3) Anemia ICD Codes: D64.9 - Anemia, unspecified SNOMED: 801183006 Qualifiers: Qualified Codes: D64.9 - Anemia, unspecified (4) GI bleed ICD Codes: K92.2 - Gastrointestinal hemorrhage, unspecified SNOMED: 88545078 (5) ATN (acute tubular necrosis) ICD Codes: N17.0 - Acute kidney failure with tubular necrosis SNOMED: 83698281 (6) History of CVA (cerebrovascular accident) ICD Codes: Z86.73 - Personal history of transient ischemic attack (TIA), and cerebral infarction without residual deficits SNOMED: 320379227 (7) Diabetes mellitus ICD Codes: E11.9 - Type 2 diabetes mellitus without complications SNOMED: 59055862 Status: stable, progressing Assessment/Plan: vent bp bs control cbc bmp am dc if clear Subjective Allergies: Coded Allergies: No Known Allergies (Unverified , 06/21/19) All Systems: reviewed and negative except above Subjective trach vent altered Objective Last 24 Hour Vital Signs Date Time Temp Pulse Resp B/P (MAP) Pulse Ox O2 Delivery O2 Flow Rate FiO2 06/24/19 12:50 58 16 40 40 06/24/19 12:00 40 06/24/19 12:00 98.6 66 16 150/74 (99) 100 06/24/19 11:19 67 16 40 40 06/24/19 09:25 85 16 40 40 06/24/19 09:00 Mechanical Ventilator 06/24/19 08:00 40 06/24/19 08:00 98.1 84 20 150/80 (103) 98 06/24/19 07:36 82 06/24/19 07:13 89 20 40 40 06/24/19 05:20 88 17 40 40 06/24/19 04:00 40 06/24/19 04:00 77 06/24/19 04:00 97.7 86 16 154/76 (102) 98 06/24/19 04:00 Mechanical Ventilator 06/24/19 03:20 84 20 40 40 06/24/19 01:10 68 16 40 40 06/24/19 00:00 97.7 98 16 162/98 (119) 98 06/24/19 00:00 Mechanical Ventilator 06/24/19 00:00 40 06/24/19 00:00 85 06/23/19 23:20 74 16 40 40 06/23/19 21:24 66 16 40 40 06/23/19 21:00 Mechanical Ventilator 06/23/19 20:00 89 06/23/19 20:00 40 06/23/19 20:00 98.3 82 16 165/86 (112) 98 06/23/19 19:06 83 16 40 40 06/23/19 18:20 166/99 06/23/19 18:00 40 06/23/19 17:23 85 16 40 06/23/19 16:00 98.3 134 22 142/77 (98) 93 06/23/19 16:00 79 06/23/19 14:48 69 18 40 Intake and Output 06/23/19 06/24/19 19:00 07:00 Intake Total 1610 ml 643.333 ml Output Total 400 ml 200 ml Balance 1210 ml 443.333 ml Intake Free Water 1260 ml IV Total 350 ml 643.333 ml Output Urine Total 400 ml 200 ml # Bowel Movements 2 3 Laboratory Tests 06/24/19 04:15: White Blood Count 6.8, Red Blood Count 3.09L, Hemoglobin 9.4L, Hematocrit 30.6L , Mean Corpuscular Volume 99, Mean Corpuscular Hemoglobin 30.5, Mean Corpuscular Hemoglobin Concent 30.8L, Red Cell Distribution Width 19.6H, Platelet Count 190, Mean Platelet Volume 8.0, Neutrophils (%) (Auto) 71.1, Lymphocytes (%) (Auto) 19.5L, Monocytes (%) (Auto) 6.4, Eosinophils (%) (Auto) 2.3, Basophils (%) (Auto) 0.7, Sodium Level 144, Potassium Level 4.1, Chloride Level 111H, Carbon Dioxide Level 19L, Anion Gap 14, Blood Urea Nitrogen 38H, Creatinine 0.8, Estimat Glomerular Filtration Rate , Glucose Level 117H, Calcium Level 9.2 Height (Feet): 5 Height (Inches): 3.00 Weight (Pounds): 211 General Appearance: lethargic EENT: normal ENT inspection Neck: normal alignment Cardiovascular: normal peripheral pulses, normal rate, regular rhythm Respiratory/Chest: chest wall non-tender, lungs clear, normal breath sounds Abdomen: normal bowel sounds, non tender, soft Extremities: normal inspection Edema: no edema noted Arm (L), no edema noted Arm (R), no edema noted Leg (L), no edema noted Leg (R), no edema noted Pedal (L), no edema noted Pedal (R), no edema noted Generalized Neurologic: motor weakness Skin: normal pigmentation, warm/dry Jama Keating DO Jun 24, 2019 14:06
--- NOTE | 2019-06-24 14:29 | Pre-Procedure Note/Attestation ---
Pre-Procedure Note/Attestation Complete Prior to Procedure Planned Procedure: not applicable Procedure Narrative: colonoscopy Indications for Procedure Pre-Operative Diagnosis: GIB Attestation I attest that I discussed the nature of the procedure; its benefits; risks and complications; and alternatives (and the risks and benefits of such alternatives ), prior to the procedure, with the patient (or the patient's legal brand representative). I attest that, if there was a reasonable possibility of needing a blood transfusion, the patient (or the patient's legal brand representative) was given the [facility] standardized written summary, pursuant to the Romulo Murali Blood Safety Act ([place] Health and Safety Code # 1645, as amended). I attest that I re-evaluated the patient just prior to the surgery and that there has been no change in the patient's H&P, except as documented below: Darron Gentile MD Jun 24, 2019 14:29
--- NOTE | 2019-06-24 15:20 | Endoscopy Procedure Note ---
Endoscopy Procedure Note General Indication for Procedure: rectal bleed Procedures Performed: colonoscopy Operative Findings/Diagnosis: divwerticulosis Specimen: none Pt Tolerated Procedure Well: Yes Estimated Blood Loss: none Anesthesia Anesthesiologist: whit Anesthesia: MAC Inserted Devices Implant(s) used?: No Quality Quality of Bowel Preparation: Good Did scope reach the cecum?: Yes Was there any complications?: No GI Core Measures 50 yrs or older w/o bx or poly: No 10yrs. F/U recommended: Yes If not recommended, why?: Above average risk 18 years or older w/prev. colo: No aDrron Gentile MD Jun 24, 2019 15:19
[2019-06-24] MEDS ORDERED: Tubing IV Secondary IV ONE (21:19)
--- NOTE | 2019-06-25 16:15 | Procedure Note ---
DATE OF PROCEDURE: 06/24/2019 SURGEON: Darron Gentile M.D. REFERRING PHYSICIAN: Jama Keating D.O. PROCEDURE: Colonoscopy. ANESTHESIA: Per anesthesiologist. Please see anesthesia sheet. INSTRUMENT: Olympus adult flexible colonoscope. INDICATION: Rectal bleeding. REASON FOR PROCEDURE: The procedure, risks, benefits, and possible consequences, including hemorrhage, aspiration, perforation and infection, and alternative treatments, were explained to the patient/legal guardian by Dr. Darron Gentile and the patient/legal guardian understood and accepted these risks. PROCEDURE IN DETAIL: After informed consent was obtained and the patient was adequately sedated, first rectal exam was performed, which was normal. Then, the scope was advanced from rectum into the cecum documented by appendiceal orifice, ileocecal valve, and right upper quadrant palpation. Quality of prep overall was good. The patient had no evidence of any active bleeding at this time. There was evidence of diverticulosis in both right and left colon, but more prominent in the left colon. Retroflexion of rectum showed evidence of internal hemorrhoid, possibly the source of bleeding. SUMMARY OF FINDINGS: 1. Diverticulosis. 2. Internal hemorrhoid. RECOMMENDATIONS: 1. Resume G-tube feeding. 2. Monitor for H and H, transfuse as needed. 3. Treat for hemorrhoids. I want to thank Dr. Jama Keating for this kind referral. Darron Gentile M.D. DR: LUZ JOB#: [id number] CC:
--- NOTE | 2019-06-26 19:06 | Discharge Summary ---
Discharge Summary Discharge Summary _ DATE OF ADMISSION: 06/21/2019 DATE OF DISCHARGE: 06/24/2019 DISCHARGED BY: Dr. Jama Keating CONSULTANTS: Dr. Daniel Springer BRIEF HOSPITAL COURSE: Patient is a 79-year-old female, from [facility], presented to ED due to severe anemia. [facility] due to abnormal labs. Reportedly had low hemoglobin. Patient was nonverbal with trach and vent and G-tube. She has medical history significant for hypertension , CVA, G-tube, diabetes, and encephalopathy. On evaluation at the ED, vital signs were stable. Blood work showed hemoglobin of 6.4 and hematocrit 20.9. There was no leukocytosis. Platelet count was normal. Chemistry normal. Blood transfusion was ordered. She was then admitted for anemia. Patient was placed on n.p.o. She was given 2 units packed RBC blood transfusion. GI was consulted. Patient had history of upper endoscopy on June 09, 2019 and was noted to have gastritis, otherwise no obvious bleeding. Group Underwriter was consulted. Patient has anemia of chronic disease. There was a drop in patient's ferritin. She was given IV iron. Patient had black stools. She was scheduled for colonoscopy. She was noted to have decubitus ulcers requiring care. Surgery was called to evaluate and assist with management. She has a full-thickness pressure injury sacrococcygeal area. Non-blanchable erythema with maroon area centrally on the right heel. Left heel boggy but blanchable. She was given wound care. She was placed on APM/MARIA INES mattress overlay with frequent repositioning and offloading. She underwent colonoscopy on 06/24/2019. Findings showed diverticulosis and internal hemorrhoids. There was no evidence of active bleed. H&H was stable. She was discharged back to snf. FINAL DIAGNOSES: Anemia due to GI bleed Acute on chronic respiratory failure Anemia of chronic disease CKD Hypertension CVA with right desire-paresis Diabetes mellitus Dysphagia with PEG Multiple pressure ulcers present on admission DISPOSITION: DC back to SNF I have been assigned to complete a discharge summary on this account, I was not involved with the patient's management.--HUSSAIN Moura Jacqueline Robles NP Jun 26, 2019 19:06
== END 2019-06-24 21:20 | DRG 244 ==
LOC: EDBD 12:36 → EDBEDREQ 12:55 → EMR 13:20 → 2W 14:02 → EDBEDREQ 15:04 → 2W 06-22 00:57
PROC: 5A1945Z Respiratory Ventilation, 24-96 Consecutive Hours (ICD-10-PCS; principal; 2019-06-21)
PROC: 30233N1 Transfusion of Nonautologous Red Blood Cells into Peripheral Vein, Percutaneous Approach (ICD-10-PCS; 2019-06-21)
DX: K57.31 Diverticulosis of large intestine without perforation or abscess with bleeding (principal); D50.0 Iron deficiency anemia secondary to blood loss (chronic); K64.8 Other hemorrhoids; G93.41 Metabolic encephalopathy; E11.22 Type 2 diabetes mellitus with diabetic chronic kidney disease; D63.1 Anemia in chronic kidney disease; I12.9 Hypertensive chronic kidney disease with stage 1 through stage 4 chronic kidney disease, or unspecified chronic kidney disease; I69.959 Hemiplegia and hemiparesis following unspecified cerebrovascular disease affecting unspecified side; N18.4 Chronic kidney disease, stage 4 (severe); J96.20 Acute and chronic respiratory failure, unspecified whether with hypoxia or hypercapnia; N17.0 Acute kidney failure with tubular necrosis; E46 Unspecified protein-calorie malnutrition; Z43.1 Encounter for attention to gastrostomy; Z43.0 Encounter for attention to tracheostomy; L89.159 Pressure ulcer of sacral region, unspecified stage; K57.30 Diverticulosis of large intestine without perforation or abscess without bleeding; I25.10 Atherosclerotic heart disease of native coronary artery without angina pectoris; R13.10 Dysphagia, unspecified
CPT/HCPCS: 36415; 71045; 80048; 80053; 81003; 82270; 82728; 83690; 83735; 84100; 85007; 85025; 85610; 85730; 86850; 86900; 86901; 86920; 87070; 87081; 87181; 87205; 93005; 94002; 94003; 94150; 94664; 96360; 99285